=== PATIENT | male | born 1950 | race Caucasian/White ===

== ENCOUNTER 2019-06-06 12:34 | Outpatient (CLI) | payer MEDICARE, OTHER, SELFPAY ==
--- NOTE | 2019-06-06 13:07 | ECHO_ITS ---
Patient Info Name: Tommy Shah Age: 68 years : 1950 Gender: Male Ht: 73 in Wt: 225 lbs BSA: 2.31 m2 HR: 82 bpm BP: 167 / 82 mmHg Technical Quality: Good Exam Date: 06/06/2019 1:18 PM Exam Location: [facility] Patient Status: Outpatient Admit Date: 06/06/2019 Staff Ordering Physician: Michael Soni DO Insurance Auditor: José Luis Bennett RDCS, RT Attending Provider: Michael Soni DO Referring Physician: Zachariah MORA; Exam Type: CA echo doppler color flow Study Info Indications I35.0 - Nonrheumatic aortic (valve) stenosis Complete two-dimensional, color flow and Doppler transthoracic echocardiogram is performed. Summary 1. Left ventricular chamber dimension is normal. 2. Left ventricular systolic function is normal, estimated at 60-65%. 3. There is mildly increased left ventricular wall thickness. 4. The left ventricular diastolic function is abnormal. 5. E/e' 10 is mildly elevated. 6. Global longitudinal strain is normal at -19.3%. 7. Left atrial chamber dimension is mildly enlarged. 8. There is moderate aortic valve sclerosis. 9. There is moderate aortic valve stenosis with a peak velocity of 343 cm/s, mean gradient of 25 mmHg, and aortic valve area of 1.4 cm2. 10. There is mild aortic valve regurgitation. 11. There is trace mitral valve regurgitation. 12. No pulmonary hypertension, estimated pulmonary arterial systolic pressure is 39 mmHg. 13. Dilated inferior vena cava with >50% collapse upon inspiration consistent with elevated right atrial pressure, 10 mmHg. Left Ventricle E/e' 10 is mildly elevated. Global longitudinal strain is normal at -19.3%. Left ventricular chamber dimension is normal. Left ventricular systolic function is normal, estimated at 60-65%. There is mildly increased left ventricular wall thickness. The left ventricular diastolic function is abnormal. Right Ventricle Right ventricular chamber dimension is normal. Right ventricular systolic function is normal. Left Atria Left atrial chamber dimension is mildly enlarged. Right Atria Right atrial chamber dimension is normal. Aortic Valve The aortic valve is trileaflet. There is moderate aortic valve sclerosis. There is moderate aortic valve stenosis with a peak velocity of 343 cm/s, mean gradient of 25 mmHg, and aortic valve area of 1.4 cm2. There is mild aortic valve regurgitation. Pulmonic Valve There is no pulmonic regurgitation. Mitral Valve There is no mitral valve stenosis. There is trace mitral valve regurgitation. Tricuspid Valve There is no tricuspid valve regurgitation. No pulmonary hypertension, estimated pulmonary arterial systolic pressure is 39 mmHg. Pericardium/Pleural There is no pericardial effusion. Inferior Vena Cava Dilated inferior vena cava with >50% collapse upon inspiration consistent with elevated right atrial pressure, 10 mmHg. Aorta The aortic root size at the sinus of Valsalva is normal. Left Ventricular Outflow Tract Name Value Normal LVOT 2D LVOT Diameter 2.0 cm LVOT Doppler LVOT Peak Gradient 7 mmHg LVOT Mean Gradient
== END 2019-06-06 12:35 | disposition home or self-care (01) ==
PROVIDERS: PCP Emergency Medicine; Visit Provider Internal Medicine Cardiovascular Disease
DX: I34.0 Nonrheumatic mitral (valve) insufficiency (principal); I35.1 Nonrheumatic aortic (valve) insufficiency
CPT/HCPCS: 93306

== ENCOUNTER 2021-06-08 09:32 | Outpatient (CLI) | payer MEDICARE, OTHER, SELFPAY ==
--- NOTE | 2021-06-08 10:05 | ECHO_ITS ---
Patient Info Name: Tommy Shah Age: 70 years : 1950 Gender: Male Ht: 73 in Wt: 225 lbs BSA: 2.31 m2 HR: 86 bpm BP: 124 / 70 mmHg Technical Quality: Good Exam Date: 06/08/2021 10:24 AM Exam Location: [facility] Patient Status: Outpatient Admit Date: 06/08/2021 Staff Ordering Physician: Michael Soni DO Machine Pie Maker: José Luis Bennett RDCS, RT Attending Provider: Michael Soni DO Referring Physician: Zachariah MORA; Exam Type: CA echo doppler color flow Study Info Indications I35.0 - Nonrheumatic aortic (valve) stenosis Complete two-dimensional, color flow and Doppler transthoracic echocardiogram is performed. Strain analysis performed. Summary 1. Complete two-dimensional, color flow and Doppler transthoracic echocardiogram is performed. 2. Left ventricular chamber dimension is normal. 3. Left ventricular systolic function is normal, estimated at 60-65%. 4. There is mildly increased left ventricular wall thickness. 5. The left ventricular diastolic function is grade I diastolic dysfunction. 6. E/e' 8 is minimally elevated. 7. Global longitudinal strain is abnormal at -15.9%. 8. There is moderate aortic valve sclerosis. 9. There is moderate to severe aortic valve stenosis with a peak velocity of 420 cm/s, mean gradient of 42 mmHg, and aortic valve area of 1.0 cm2. 10. The mitral valve has mildly calcified annulus. 11. No pulmonary hypertension, estimated pulmonary arterial systolic pressure is 39 mmHg. Left Ventricle Global longitudinal strain is abnormal at -15.9%. E/e' 8 is minimally elevated. Left ventricular chamber dimension is normal. Left ventricular systolic function is normal, estimated at 60-65%. There is mildly increased left ventricular wall thickness. The left ventricular diastolic function is grade I diastolic dysfunction. Right Ventricle Right ventricular systolic function is normal and with normal TAPSE 3.0 cm. Right ventricular chamber dimension is normal. Left Atria Left atrial chamber dimension is normal. Right Atria Right atrial chamber dimension is normal. Aortic Valve The aortic valve is trileaflet. There is moderate aortic valve sclerosis. There is moderate to severe aortic valve stenosis with a peak velocity of 420 cm/s, mean gradient of 42 mmHg, and aortic valve area of 1.0 cm2. There is no aortic valve regurgitation. Pulmonic Valve There is no pulmonic regurgitation. Mitral Valve The mitral valve has mildly calcified annulus. There is no mitral valve stenosis. There is no mitral valve regurgitation. Tricuspid Valve There is no tricuspid valve regurgitation. No pulmonary hypertension, estimated pulmonary arterial systolic pressure is 39 mmHg. Pericardium/Pleural There is no pericardial effusion. Inferior Vena Cava Normal inferior vena cava with >50% collapse upon inspiration consistent with normal right atrial pressure, 5 mmHg. Aorta The aortic root size at the sinus of Valsalva is normal. Left Ventricular Outflow Tract Name Value Normal LVOT 2D LVOT Diameter 2.0 cm LVOT Doppler LVOT Peak Gradient 5 mmHg
== END 2021-06-08 09:33 | disposition home or self-care (01) ==
PROVIDERS: PCP Emergency Medicine; Visit Provider Internal Medicine Cardiovascular Disease
DX: I35.0 Nonrheumatic aortic (valve) stenosis (principal); I35.1 Nonrheumatic aortic (valve) insufficiency
CPT/HCPCS: 93306

== ENCOUNTER 2021-08-09 09:45 | Emergency (ER) | payer MEDICARE, OTHER, SELFPAY ==
--- NOTE | ~2021-08-09 | CT_ITS ---
EXAMINATION: CT brain wo con EXAM DATE: 08/09/2021 10:45 INDICATION: Dizziness, hyponatremia. TECHNIQUE: Spiral CT of the head was performed without contrast. Axial, coronal and sagittal images were reviewed. The dose-length product (DLP) for this examination was 605.33 mGy-cm. The exposure w as tailored according to patient size, and iterative reconstruction (ASIR) was used as additional dos e reduction technique. There is no prior study for comparison. FINDINGS: There is no acute intraparenchymal hemorrhage. No evidence of intraparenchymal brain mass lesion. No evidence of acute infarction. Please note that initial head CT has limited sensitivity f or small or acute infarctions. There is mild periventricular and subcortical hypodensity, nonspecific but probably related to small vessel ischemic disease. There is mild prominence of the sulci and v entricles related to cerebral atrophy. There is intracranial carotid arteriosclerosis. There are n o extra-axial collections. There is no mass effect or midline shift. Patient has had bilateral ocul ar lens surgery. Soft tissue is unremarkable. Mild to moderate right maxillary, mild left maxillary and bilateral ethmoid mucoperiosteal thickening. IMPRESSION: 1. No acute intracranial findings. 2. Chronic age related findings. Reviewed, dictated and finalized at location B.
[2021-08-09 09:49] VITALS: BP 139/53; PULSE 98; RESP 16; TEMP 36.2; O2SAT 100
[2021-08-09 10:02] VITALS: BP 128/69; PULSE 88; RESP 20; O2SAT 100
--- NOTE | 2021-08-09 10:27 | ECG_ITS ---
Measurements Intervals [place] Rate: 90 P: 75 W[place]: 165 QRS: 40 QRSD: 106 T: 41 QT: 356 QTc: 437 Interpretive Statements SINUS RHYTHM WITH OCCASIONAL ECTOPIC PREMATURE COMPLEXES Electronically Signed On 08-09-2021 12:10:10 CDT by Willie Feldman M.D.
[2021-08-09 10:31] LABS: Basophils Percent Auto 0.4 % (0.2-1.2); Eosinophils Absolute Auto 0.1 K/mm3 (0-0.3); Eosinophils Percent Auto 1.2 % (0-4.4); Hematocrit 33.4 % (42.0-52.0); Hemoglobin 12.3 g/dL (14.0-18.0); Immature Granulocyte Absolute 0.02 K/mm3 (0.00-0.031); Immature Granulocyte Percent A 0.4 % (0-0.5); Lymphocytes Absolute Auto 1.21 K/mm3 (0.9-3.2); Lymphocytes Percent Auto 21.4 % (18.3-44.2); Mean Corpuscular HGB Conc 36.8 g/dl (32-36); Mean Corpuscular Hemoglobin 35.8 pg (26-34); Mean Corpuscular Volume 97.1 fl (80-100); Mean Platelet Volume 9.1 fl (7.4-10.4); Monocytes Absolute Auto 0.9 K/mm3 (0.1-0.6); Monocytes Percent Auto 15.5 % (2.6-8.5); Neutrophils Absolute Auto 3.5 K/mm3 (1.3-6.7); Neutrophils Percent Auto 61.1 % (45.5-73.1); Platelet Count Result 219 k/mm3 (150-375); Red Blood Count 3.44 M/mm3 (4.6-6.20); Red Cell Distribution Width 11.1 % (11.5-14.5); White Blood Count 5.7 K/mm3 (4.5-10.0)
[2021-08-09 10:49] LABS: Alanine Aminotransferase 20 U/L (4-50); Albumin Level 5.1 g/dL (3.5-5.1); Alkaline Phosphatase 45 U/L (38-126); Anion Gap 7 mmol/L (8-16); Aspartate Amino Transferase 40 U/L (17-59); Bilirubin,Total 1.2 mg/dL (0.2-1.3); Blood Urea Nitrogen 12 mg/dL (9-20); Calcium 9.3 mg/dL (8.4-10.2); Carbon Dioxide 31 mmol/L (22-30); Chloride 82 mmol/L (98-107); Estimated CRCL calculation 75 ml/min; Estimated Glomerular Filt Rate > 60; Glucose 127 mg/dL (65-110); Potassium 3.5 mmol/L (3.4-5.0); Sodium 120 mmol/L (137-145)
[2021-08-09 11:00] VITALS: BP 124/64; PULSE 80
[2021-08-09 11:02] VITALS: BP 126/71; PULSE 88
--- NOTE | 2021-08-09 11:02 | ED.RECABL ---
HPI - Recheck/Abnormal Lab/Rx General Chief Complaint: Recheck/Abnormal Lab/Rx <Trinity Sánchez PA-C - Last Filed: 08/09/21 12:52> Stated Complaint: low sodium per PCP <Trinity Sánchez PA-C - Last Filed: 08/09/21 12:52> Time Seen by Provider: 08/09/21 10:27 <JN Castañeda Last Filed: 08/09/21 12:52> Source: patient <JN Castañeda Last Filed: 08/09/21 12:52> Mode of arrival: ambulatory <JN Castañeda Last Filed: 08/09/21 12:52> Limitations: no limitations <JN Castañeda Last Filed: 08/09/21 12:52> History of Present Illness HPI narrative: This is a 71-year-old male that presents to the emergency department for abnormal labs. Reports he was called by his primary provider and told that his sodium was low and to present to the ED. He does report he has been having some intermittent lightheadedness over the last week. Has no complaints currently. Does report he was recently started on hydrochlorothiazide a couple of months ago. Denies chest pain, shortness of breath, vomiting or diarrhea. <Trinity Sánchez PA-C - Last Filed: 08/09/21 12:52> Related Data Home Medications: Home Medications Medication Instructions Recorded Confirmed aspirin 81 mg tablet,delayed 81 mg PO DAILY 05/22/19 05/24/21 release <JN Castañeda Last Filed: 08/09/21 12:52> Allergies/Adverse Reactions: Allergies Allergy/AdvReac Type Severity Reaction Status Date / Time No Known Allergies Allergy Verified 05/24/21 10:00 <JN Castañeda Last Filed: 08/09/21 12:52> Review of Systems Review of Systems: CONSTITUTIONAL: Denies fever CARDIOVASCULAR: Denies chest pain, or edema. RESPIRATORY: Denies dyspnea. GASTROINTESTINAL: Denies abdominal pain, nausea, vomiting, or diarrhea. NEUROLOGIC: Denies headache, numbness, or weakness. <Trinity Sánchez PA-C - Last Filed: 08/09/21 12:52> All systems reviewed & are unremarkable except as noted in HPI and below <Trinity Sánchez PA-C - Last Filed: 08/09/21 12:52> [facility] Past Medical History Medical History: Medical History (Updated 08/09/21 @ 12:35 by Trinity Sánchez PA-C) Aortic stenosis, mild Aortic valve, bicuspid PRESSLEY (dyspnea on exertion) Essential hypertension Other and unspecified hyperlipidemia <Trinity Sánchez PA-C - Last Filed: 08/09/21 12:52> Family History Family History: Family History (Reviewed 05/24/21 @ 10:00 by Stephany Combs, [facility]) Sibling Family history of cardiovascular disease <Trinity Sánchez PA-C - Last Filed: 08/09/21 12:52> Social History Social History: Social History (Reviewed 05/24/21 @ 10:00 by Stephany Combs [facility]) Smoking status: Never smoker Smoking end date: 04/30/86 Alcohol intake: current <Trinity Sánchez PA-C - Last Filed: 08/09/21 12:52> Exam Narrative: GENERAL: Well-appearing, well-nourished, and in no acute distress. HEAD: Normocephalic, atraumatic. EYES: PERRLA and EOMI. ENT: Nares clear, no rhinorrhea or epistaxis. Mucous membranes moist. Oropharynx without tonsillar hypertrophy exudate or other lesions. Bilateral TMs pearly stevens non-bulging NECK: Supple. No adenopathy or masses. CHEST: Clear to auscultation. No respiratory distress. No wheezes rales or rhonchi HEART: Regular rate and rhythm. No murmur heard. Normal peripheral pulses. ABDOMEN: Soft, nontender, nondistended, normal active bowel sounds. EXTREMITIES: Normal range of motion. No edema. Strength equal in bilateral upper and lower extremities (5/5) SKIN: Warm, dry, no rash. NEURO: No focal deficits. Alert and oriented x3. Cranial nerves II through XII grossly intact. Normal [id number] PSYCH: Normal mood and affect <Trinity Sánchez PA-C - Last Filed: 08/09/21 12:52> Course Consultations Consultation #1: I did speak with his primary doctor who will follow up. Would like patient started on salt tabs. He is to stop his hydr
[2021-08-09 11:04] VITALS: BP 119/61; PULSE 78
[2021-08-09] MEDS: SODIUM CHLORIDE 0.9% IV 1,000 ML 500 ML IV CONT (11:09)
--- NOTE | 2021-08-09 12:58 | PC.NURSE ---
Patient signed AMA form and recieved discharge instructions left before signing.
--- NOTE | 2021-08-15 11:02 | PC.NURSE ---
LATE ENTRY This note is being entered to document information to the patient's record. []08/09/21 pt recieved 1000 , stopped by Fartun Messer.
== END 2021-08-09 12:58 | disposition left against medical advice (07) ==
PROVIDERS: Physician Assistant; Emergency Provider Emergency Medicine; PCP Emergency Medicine
DX: E87.1 Hypo-osmolality and hyponatremia (principal); I35.0 Nonrheumatic aortic (valve) stenosis; I10 Essential (primary) hypertension; E78.5 Hyperlipidemia, unspecified; Z87.891 Personal history of nicotine dependence; R94.31 Abnormal electrocardiogram [ECG] [EKG]
CPT/HCPCS: 36415; 70450; 80053; 85025; 93005; 96360; 96361; 99284; J7030

== ENCOUNTER 2022-06-07 09:23 | Outpatient (CLI) | payer MEDICARE, OTHER, SELFPAY ==
--- NOTE | 2022-06-07 09:40 | ECHO_ITS ---
Patient Info Name: Tommy Shah Age: 71 years : 1950 Gender: Male Ht: 73 in Wt: 211 lbs BSA: 2.24 m2 HR: 96 bpm BP: 148 / 77 mmHg Technical Quality: Fair Exam Date: 06/07/2022 9:44 AM Exam Location: [facility] Patient Status: Outpatient Admit Date: 06/07/2022 Staff Ordering Physician: Michael Soni DO Binder Sorter: José Luis Bennett RDCS, RT Attending Provider: Michael Soni DO Referring Physician: Zachariah MORA; Exam Type: CA echo doppler color flow Study Info Indications I35.0 - Nonrheumatic aortic (valve) stenosis Complete two-dimensional, color flow and Doppler transthoracic echocardiogram is performed. Strain analysis performed. Summary 1. Complete two-dimensional, color flow and Doppler transthoracic echocardiogram is performed. 2. Left ventricular chamber dimension is normal. 3. Left ventricular systolic function is normal, estimated at 60-65%. 4. There is mild concentric increased left ventricular wall thickness. 5. The left ventricular diastolic function is abnormal. 6. E/e' 11 is mildly elevated. 7. Global longitudinal strain is abnormal at -13.2%. 8. The aortic valve is not well visualized. Cannot determine number of aortic valve leaflets. 9. There is severe aortic valve stenosis based on a peak velocity of 437 cm/s, mean gradient of 42 mmHg, and aortic valve area of 0.8 cm2. 10. There is severe aortic valve sclerosis. 11. The mitral valve has moderately calcified annulus. 12. Mild pulmonary hypertension, estimated pulmonary arterial systolic pressure is 49 mmHg. 13. Dilated inferior vena cava with >50% collapse upon inspiration consistent with elevated right atrial pressure, 10 mmHg. Left Ventricle E/e' 11 is mildly elevated. Global longitudinal strain is abnormal at -13.2%. Left ventricular chamber dimension is normal. Left ventricular systolic function is normal, estimated at 60-65%. There is mild concentric increased left ventricular wall thickness. The left ventricular diastolic function is abnormal. Right Ventricle Right ventricular systolic function is normal and with normal TAPSE 3.0 cm. Right ventricular chamber dimension is normal. Left Atria Left atrial chamber dimension is normal. Right Atria Right atrial chamber dimension is normal. Aortic Valve The aortic valve is not well visualized. Cannot determine number of aortic valve leaflets. There is severe aortic valve stenosis based on a peak velocity of 437 cm/s, mean gradient of 42 mmHg, and aortic valve area of 0.8 cm2. There is severe aortic valve sclerosis. There is no aortic valve regurgitation. Pulmonic Valve There is no pulmonic regurgitation. Mitral Valve The mitral valve has moderately calcified annulus. There is no mitral valve stenosis. There is no mitral valve regurgitation. Tricuspid Valve There is no tricuspid valve regurgitation. Mild pulmonary hypertension, estimated pulmonary arterial systolic pressure is 49 mmHg. Pericardium/Pleural There is no pericardial effusion. Inferior Vena Cava Dilated inferior vena cava with >50% collapse upon inspiration consistent with elevated right atrial pressure, 10 mmHg. Aorta The aortic root size at the sinus of Valsalva is normal. Left Ventricular Outflow Tract Name Value Normal LVOT 2D
== END 2022-06-07 09:24 | disposition home or self-care (01) ==
LOC: ANHCARD 09:24
PROVIDERS: PCP Emergency Medicine; Visit Provider Internal Medicine Cardiovascular Disease
DX: I08.3 Combined rheumatic disorders of mitral, aortic and tricuspid valves (principal)
CPT/HCPCS: 93306

== ENCOUNTER 2023-05-11 09:53 | Outpatient (CLI) | payer MEDICARE, OTHER, SELFPAY ==
--- NOTE | 2023-05-11 10:17 | ECHO_ITS ---
Patient Info Name: Tommy Shah Age: 72 years : 1950 Gender: Male Ht: 73 in Wt: 215 lbs BSA: 2.26 m2 HR: 101 bpm BP: 136 / 77 mmHg Technical Quality: Fair Exam Date: 05/11/2023 10:26 AM Exam Location: Echo Lab Patient Status: Outpatient Admit Date: 05/11/2023 Staff Ordering Physician: Michael Soni DO Attending Provider: Michael Soni DO Referring Physician: Zachariah MORA; Exam Type: CA echo doppler color flow Study Info Indications - NON RHEUMATIC AORTIC VALVE STENOSIS Complete two-dimensional, color flow and Doppler transthoracic echocardiogram is performed. Summary 1. Complete two-dimensional, color flow and Doppler transthoracic echocardiogram is performed. 2. Left ventricular chamber dimension is normal. 3. Left ventricular systolic function is hyperdynamic, estimated at >70%. 4. There is mild concentric increased left ventricular wall thickness. 5. The left ventricular diastolic function is grade I diastolic dysfunction. 6. E/e' 14 is mildly elevated. 7. Left atrial chamber dimension is mildly enlarged. 8. There is severe aortic valve sclerosis. 9. There is severe aortic valve stenosis with a peak velocity of 514 cm/s, mean gradient of 67 mmHg, and aortic valve area of 0.9 cm2. 10. The mitral valve has moderately calcified annulus. 11. There is mild mitral valve regurgitation. 12. There is mild tricuspid valve regurgitation. 13. Moderate pulmonary hypertension, estimated pulmonary arterial systolic pressure is 50 mmHg. Left Ventricle E/e' 14 is mildly elevated. Left ventricular chamber dimension is normal. Left ventricular systolic function is hyperdynamic, estimated at >70%. There is mild concentric increased left ventricular wall thickness. The left ventricular diastolic function is grade I diastolic dysfunction. Right Ventricle Right ventricular chamber dimension is normal. Right ventricular systolic function is normal. Left Atria Left atrial chamber dimension is mildly enlarged. Right Atria Right atrial chamber dimension is normal. Aortic Valve The aortic valve is probable trileaflet. There is severe aortic valve sclerosis. There is severe aortic valve stenosis with a peak velocity of 514 cm/s, mean gradient of 67 mmHg, and aortic valve area of 0.9 cm2. There is no aortic valve regurgitation. Pulmonic Valve There is no pulmonic regurgitation. Mitral Valve The mitral valve has moderately calcified annulus. There is no mitral valve stenosis. There is mild mitral valve regurgitation. Tricuspid Valve There is mild tricuspid valve regurgitation. Moderate pulmonary hypertension, estimated pulmonary arterial systolic pressure is 50 mmHg. Pericardium/Pleural There is no pericardial effusion. Inferior Vena Cava Normal inferior vena cava with >50% collapse upon inspiration consistent with normal right atrial pressure, 5 mmHg. Aorta The aortic root size at the sinus of Valsalva is normal. Left Ventricular Outflow Tract Name Value Normal LVOT 2D LVOT Diameter 2.1 cm LVOT Doppler LVOT Peak Gradient 6 mmHg LVOT Mean Gradient 4 mmHg LVOT VTI 26 cm LVOT VTI/AV VTI Ratio
== END 2023-05-11 09:54 | disposition home or self-care (01) ==
LOC: ANHCARD 09:55
PROVIDERS: PCP Emergency Medicine; Visit Provider Internal Medicine Cardiovascular Disease
DX: I08.3 Combined rheumatic disorders of mitral, aortic and tricuspid valves (principal)
CPT/HCPCS: 93306

== ENCOUNTER 2024-05-20 07:34 | Outpatient (CLI) | payer MEDICARE, OTHER, SELFPAY ==
--- NOTE | 2024-05-20 07:48 | ECHO_ITS ---
Patient Info Name: Tommy Shah Age: 73 years : 1950 Gender: Male Ht: 73 in Wt: 215 lbs BSA: 2.26 m2 HR: 85 bpm BP: 135 / 64 mmHg Heart Rhythm: Sinus Rhythm Technical Quality: Fair Exam Date: 05/20/2024 7:54 AM Exam Location: Echo Lab Patient Status: Outpatient Admit Date: 05/20/2024 Staff Ordering Physician: Michael Soni DO Cook Morning: Aylin King RDCS Attending Provider: Michael Soni DO Referring Physician: Zachariah MORA; Exam Type: CA echo doppler color flow Study Info Indications I35.0 - Nonrheumatic aortic (valve) stenosis Complete two-dimensional, color flow and Doppler transthoracic echocardiogram is performed. Summary 1. Complete two-dimensional, color flow and Doppler transthoracic echocardiogram is performed. 2. Left ventricular chamber dimension is normal. 3. Left ventricular systolic function is normal, estimated at 65-70%. 4. There is mild concentric increased left ventricular wall thickness. 5. The left ventricular diastolic function is grade III diastolic dysfunction. 6. E/e' 19 is elevated. 7. Left atrial chamber dimension is mildly enlarged. 8. There is severe aortic valve sclerosis. 9. There is severe aortic valve stenosis with a peak velocity of 525 cm/s, mean gradient of 64 mmHg, and aortic valve area of 0.7 cm2. 10. The mitral valve has moderately calcified annulus. 11. There is trace tricuspid valve regurgitation. 12. Mild pulmonary hypertension, estimated pulmonary arterial systolic pressure is 44 mmHg. Left Ventricle E/e' 19 is elevated. Left ventricular chamber dimension is normal. Left ventricular systolic function is normal, estimated at 65-70%. There is mild concentric increased left ventricular wall thickness. The left ventricular diastolic function is grade III diastolic dysfunction. Right Ventricle Right ventricular systolic function is normal and with normal TAPSE 2.8 cm. Right ventricular chamber dimension is normal. Left Atria Left atrial chamber dimension is mildly enlarged. Right Atria Right atrial chamber dimension is normal. Aortic Valve The aortic valve is trileaflet. There is severe aortic valve sclerosis. There is severe aortic valve stenosis with a peak velocity of 525 cm/s, mean gradient of 64 mmHg, and aortic valve area of 0.7 cm2. There is no aortic valve regurgitation. Pulmonic Valve There is no pulmonic regurgitation. Mitral Valve The mitral valve has moderately calcified annulus. There is no mitral valve stenosis. There is no mitral valve regurgitation. Tricuspid Valve There is trace tricuspid valve regurgitation. Mild pulmonary hypertension, estimated pulmonary arterial systolic pressure is 44 mmHg. Pericardium/Pleural There is no pericardial effusion. Inferior Vena Cava Normal inferior vena cava with >50% collapse upon inspiration consistent with normal right atrial pressure, 5 mmHg. Aorta The aortic root size at the sinus of Valsalva is normal. Left Ventricular Outflow Tract Name Value Normal LVOT 2D LVOT Diameter 2.0 cm LVOT Doppler LVOT Peak Gradient 5 mmHg LVOT Mean Gradient 3 mmHg LVOT VTI 23 cm LVOT VTI/AV VTI Ratio 0.2 LVOT Stroke Volume 70 ml LVOT CO 6.7 l/min LVOT CI 3.0 l/min/m2 Pulmonic Valve Name Value Normal RVOT Doppler RVOT Peak Gradient 5 mmHg PV Doppler PV Peak Gradient 5 mmHg Mitral Valve Name Value Normal MV Doppler MV Peak Gradient 9 mmHg MV Mean Gradient 4 mmHg MV Decel White 836 cm/s2 MV PHT 48 ms MV Area (PHT) 4.6 cm2 4.0-5.0 MV Area (Cont Eq VTI) 2.7 cm2 MV Diastolic Function MV E Peak Velocity 139 cm/s MV A Peak Velocity 68 cm/s MV E/A 2.0 MV Decel Time 166 ms MV Annular TDI MV E/e' (Septal) 21.8 <=8.0 MV E/e' (Lateral) 18.0 <=8.0 MV E/e' (Average) 19.9 Tricuspid Valve Name Value Normal TV Regurgitation Doppler TR Peak Velocity 313 cm/s TR Peak Gradient 32 mmHg Estimated PAP/RSVP RA Pressure 5 mmHg <=5 PA Systolic Pressure 44 mmHg <36 RV Systolic Pressure 44 mmHg <36 Aorta Name Value Normal Ascending Aorta Ao Root Diameter (MM) 2.8 cm Ao Root Diam Index (MM) 1.3 cm/m2 Aortic Valve Name Value Normal AV Doppler AV Peak Velocity 525 cm/s AV Peak Gradient 110 mmHg AV Mean Gradient 64 mmHg AV VTI 103 cm AV Area (Cont Eq VTI) 0.7 cm2 >=3.0 AV Area (Cont Eq Arslan) 0.6 cm2 AV Regurgitation 2D LVOT Area 3.0 cm2 Ventricles Name Value Normal LV Dimensions 2D/MM IVS Diastolic Thickness (2D) 1.2 cm 0.6-1.0 LVID Diastole (2D) 5.0 cm 4.2-5.8 LVIW Diastolic Thickness (2D) 1.0 cm 0.6-1.0 LVID Systole (2D) 2.8 cm 2.5-4.0 LVOT Diameter 2.0 cm LV Mass (2D Cubed) 205.23 g 88.00-224.00 LV Mass Index (2D Cubed) 91 g/m2 49-115 Relative Wall Thickness (2D) 0.39 LV Fractional Shortening/Ejection Fraction 2D/MM LV Fractional Shortening (2D) 45 % 25-43 LV EF (2D Teicholz) 76 % 52-72 LV Diastolic Volume (4C MOD) 91 ml LV EF (4C MOD) 71 % LV Diastolic Volume (2C MOD) 66 ml LV EF (2C MOD) 63 % LV Diastolic Volume (BP MOD) 78 ml 62-150 LV Diastolic Volume Index (BP MOD) 35 ml/m2 34-74 LV Systolic Volume (BP MOD) 26 ml 21-61 LV Systolic Volume Index (BP MOD) 11 ml/m2 11-31 LV EF (BP MOD) 67 % 52-72 LV Diastolic Length (4C) 8.6 cm LV Systolic Length (4C) 6.4 cm LV Stroke Volume (4C MOD) 65 ml Atria Name Value Normal LA Dimensions LA Dimension (MM) 5.0 cm 3.0-4.1 LA Volume (4C A-L) 88 ml LA Volume (BP A-L) 86 ml RA Dimensions RA Area (4C) 17.6 cm2 <=18.0 Report Signatures
--- OUTSIDE RECORDS SUMMARY | 2024-05-22 15:35 | XMS_ITS | Continuity of Care Document ---
Author Organization [facility] [place] [address] [place] [address] Phone Care Team Providers Care Logistics Lead Name Role Phone [place] SOTO FACS, Rip Unavailable Unavailab le Allergies, Adverse Reactions, Alerts Substance Reaction Status Criticality No Known allergies Medications Medication Instructions Dosage Effective Dates (start - stop) Status Comments valsartan 320 mg-hydrochlorothia zide 25 mg tablet - Active AMLODIPINE BESILATE (unknown strength) Not Available - Active Aspirin Low Dose 81 mg tablet,delayed release - Active Polytrim 0.1 %-10,000 unit/mL Eye Drops Instill one drop into Operated Eye QID as directed - No Longer Active prednisolone acetate 1 % Eye Drops, Susp Instill 1 drop into Operated Eye QID as directed - No Longer Active Procedures Procedure Date Post-op Follow-up Visit No Charge Refraction Post-op Follow-up Visit Remove Cataract, Insert Lens Presbyopia Correcting IOL Eye Exam, New Patient No Charge Refraction IOLMaster No Charge Optomap Fundus Photos - 013 Post-op Follow-up Visit Post-op Follow-up Visit Post-op Follow-up Visit Remove Cataract, Insert Lens Presbyopia Correcting IOL Eye Exam, New Patient IOLMaster Advance Directives Directive Yes / No Effective Date File Name Resuscitation Not Answered N/A N/A Life Support Not Answered N/A N/A Intubation Not Answered N/A N/A Antibiotics Not Answered N/A N/A IV Fluid Support Not Answered N/A N/A Tube Feed Not Answered N/A N/A Other Directive N/A N/A WARNING:The information contained in this section is historical and is provided for information only and does not constitute a legal document or any assurance that the information is still accurate. Please verify the information with the phelps of the legal document before using it for clinical purposes. Encounters Encounter Description Practice Location Reason(s) For Visit Diagnoses Date Provider Providers [facility]ied on [facility], [address], [place], [place], [address], tel:[phone] SEC Bell N Lindbergh 2 week post op (chief complaint) FOLLOW-UP SURGERY NOS Mar-0 2- 3 [place] Erwin. [facility] [employer], [address], [place], [place], [address], . tel:[phone] [place] [facility], [address], [place], [place], [address], tel:[phone] SEC Esther N Lindbergh 1 day PO OS (chief complaint) FOLLOW-UP SURGERY NOS Feb-2 2- 3 [place] Erwin. [address] [employer], [address], [place], [place], [address], [place]. tel:[phone] [place] [facility], [facility] [employer] [address], [place], [place], [address], [place] tel:[phone] Edward [facility] No Information Feb-2 - 3 [place] Erwin. [address] [employer], [address], [place], [place], [address], [place]. tel:[phone] Referring Provider: Rip Velasco, [facility] [employer] [address], [place], [address] . tel:[phone] [facility], [address], [place], [place], [address], [place] tel:[phone] SEC Bell N Lindbergh No Information Nov- 3 [place] Rip. [address] [employer], [address], [place], [place], [address], [place]. tel:[phone] [facility], [address] [place] [address] [address], [place], [place], [address], [place] tel:[phone] SEC Bell N Lindbergh blurry vision (chief complaint) No Information Oct-2 [address] [place] Rip[address] [place], [place] [address], [address], [place], [place], [address], [place]. tel:[phone] Referring Provider: Saúl Garrison, [address] [facility] [address], [place], [place], [facility]. tel:[phone] [facility], [address] [place] [address] [address], [place], [place], [address], [place] tel:[phone] SEC Bell N [place] No Information Jan- 3 [place] Rip. [address] [place] [address] [employer] [facility], [address], [place], [place], [address], [place]. tel:[phone] [facility], [address] [place] [address] [address], [place], [place], [address], [place] tel:[phone] SEC [facility] No Information Oct-2 3-200 9 Krishnasamy Shawn. [address], [facility], [place]. tel:[phone] [facility], [address] [place] [address] [address], [place], [place], [address], [place] tel:[phone] SEC [facility] No Information Oct-0 2-200 9 Krishnasamy Shawn. [address] [facility] [address], [place], [facility], [place]. tel:[phone] [facility], [address] [facility] [address], [place], [place], [address], tel:[phone] [facility] No Information Sep-2 5-200 9 Krishnasamy Shawn. [address], [facility], . tel:[phone] [facility], [address], [place], [place], [address], tel:[phone] [facility] No Information Sep-2 4-200 9 Krishnasamy Shawn. [address], [facility], . tel:[phone] Referring Provider: Saúl Lopez OD F, [address] [facility] [address], [place], [facility]. tel:[phone] [facility], [address] [facility], [place], [place], [address], tel:[phone] [facility] No Information Sep-0 2-200 9 Krishnasamy Shawn. [facility] [address], [facility], . tel:[phone] Referring Provider: Saúl Lopez OD F, [address] [facility] [address], [place], [place], [facility]. tel:[phone] Family History Family Member Type Diagnosis Age At Onset No Information Payers Payer name Insurance type Covered green party ID Authoriza tion(s) No Information Social History Type Description Quantity Date Captured Comments Alcohol Use Details 3 drinks daily Caffeine Use Details 2 cups per day Tobacco Use Status No Information Smoking Status Former smoker Sex Male Chief Complaint And Reason For Visit From encounter dated '03/31/2013 14:30'. 2 week post op (chief complaint) Reason For Referral Reason For Referral No Information History Of Present Illness Encounter Date Complaint History Of Prese nt Illness No Information Functional Status Date Functional Assessmen t No Information Instructions Date Instruction Additional Magalir kelsey FOLLOW-UP SURGERY NO S OS - Good post op course, continue to taper meds Educational materials provided:Medication Instruction. Related to FOLLOW-UP SURGERY NOS - 6 months iol check Related to FOLLOW-UP SURGERY NOS FOLLOW-UP SURGERY NO S OS Vision: vision affected. - Post op med instructions reviewed with pt, and post op instructions discussed. Pt understands shield use, return to clinic for post op exam as scheduled Educational materials provided:Post op Instruction. Related to FOLLOW-UP SURGERY NOS - po as scheduled Related to FOL LOW-UP SURGERY NOS SENILE NUCLEAR CATAR ACT OS Vision: vision affected.RESTOR IOL OD - Cataracts account for the patient's complaints. Discussed all risks, benefits, procedures and recovery. Patient understands changing glasses will not improve vision. Patient desires to have surgery, recommend phacoemulsification with intraocular lens. PT will need IOL master and orbscan today. Match IOL type- IOL card copied and put in chart. Educational materials provided:Cataract. Related to SENILE NUCLEAR CATARACT - sched CE OS MF IOL Related to SENILE NUCLEAR CATARACT Assessments Type Assessment Date No Information Patient Care Teams Name Effective Dates (start - stop) Status Members No Information
== END 2024-05-20 07:35 | disposition home or self-care (01) ==
LOC: ANHLAB 07:36
PROVIDERS: PCP Emergency Medicine; Visit Provider Internal Medicine Cardiovascular Disease
DX: I35.0 Nonrheumatic aortic (valve) stenosis (principal); I51.89 Other ill-defined heart diseases; I35.8 Other nonrheumatic aortic valve disorders; I34.81 Nonrheumatic mitral (valve) annulus calcification; I27.20 Pulmonary hypertension, unspecified
CPT/HCPCS: 93306

== ENCOUNTER 2024-06-21 03:37 | Emergency (ER) | payer MEDICARE, OTHER, SELFPAY ==
--- NOTE | ~2024-06-21 | XR_ITS ---
EXAMINATION: XR shoulder RT min 2V DATE: 06/21/2024 03:48 INDICATION: Right shoulder dislocation TECHNIQUE: AP and transscapular Y views of the right shoulder were obtained. COMPARISON: None FINDINGS: Anterior right glenohumeral dislocation with large Hill-Sachs fracture at the posterior humeral head. Somewhat atypically the Hill-Sachs fracture includes large displaced fragment comprising a large por tion of the posterior aspect of the greater tuberosity. No evident associated Bankart fracture. 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 Possible old healed lateral right second rib fracture. Visualized portions of the lungs are clear. IMPRESSION: Anterior right glenohumeral dislocation with large Hill-Sachs fracture which atypically includes a di splaced fragment involving a portion of the posterior greater tuberosity. Reviewed, dictated and finalized at location A. COORDINATOR IMPRESSION: Anterior right glenohumeral dislocation with large Hill-Sachs fracture which at ypically includes a displaced fragment involving a portion of the posterior gre ater tuberosity.
[2024-06-21 03:38] VITALS: BP 125/58; PULSE 85; RESP 18; TEMP 36.5; O2SAT 99
--- OUTSIDE RECORDS SUMMARY | 2024-06-21 03:39 | XMS_ITS | Continuity of Care Document ---
Author Organization [facility] [place] Address [address] [place] [address] Phone Care Team Providers Care Aviation Medicine Specialist Name Role Phone [place] SOTO FACS, Rip [...] Diagnoses Date Provider Providers Copied on [facility]counter [facility], [address], [place], [place], [address], tel:[phone] SEC Orlando N Lindbergh 2 week post op (chief complaint) FOLLOW-UP SURGERY NOS Mar-0 2- 3 [place] Erwin. [facility] [employer], [address], [place], [place], [address], . tel:[phone] [facility], [address] [employer] [address], [place], [place], [address], tel:[phone] SEC Orlando N Lindbergh 1 day PO OS (chief complaint) FOLLOW-UP SURGERY NOS Feb-2 2- 3 [place] Erwin. [address] [employer], [address], [place], [place], [address], [place]. tel:[phone] [facility], [facility] [employer] [address], [place], [place], [address], [place] tel:[phone] [facility] No Information Feb-2 - 3 [place] Erwin. [address] [employer], [address], [place], [place], [address], [place]. tel:[phone] Referring Provider: Rip Velasco, [facility] [address], [place], [address] . tel:[phone] [facility], [address] [address], [place], [place], [address], [place] tel:[phone] SEC Orlando N [place] No Information Nov- 3 [place] Rip. [address] [employer], [address], [place], [place], [address], [place]. tel:[phone] [facility], [address] [place] [address] [address], [place], [place], [address], [place] tel:[phone] SEC Esther N Lindbergh blurry vision (chief complaint) No Information Oct-2 3 [place] Rip. [address] [place], [place] [address]Rod[address] [employer], [address], [place], [place], [address], [place]. tel:[phone] Referring Provider: Saúl Garrison, [address] [facility], [place], [place], [facility]. tel:[phone] [facility], [address] [place] [address] [address], [place], [place], [address], [place] tel:[phone] SEC Orlando N [place]bergh No Information Jan- 3 [place] Rip. [address] [place] [address] [employer] [facility], [address], [place], [place], [address], [place]. tel:[phone] [facility], [address] [place] [address] [address], [place], [place], [address], [place] tel:[phone] SEC [facility] No Information Oct-2 3-200 9 Krishnasamy Shawn. [address], [facility], [place]. tel:[phone] [facility], [address] [place] [address] [address], [place], [place], [address], [place] tel:[phone] SEC [facility] No Information Oct-0 2-200 9 Krishnasamy Shawn. [address] [facility] [address], [place], [facility], [place]. tel:[phone] [facility], [address] [facility] [address], [place], [place], [address], tel:[phone] [facility] No Information Sep-2 5-200 9 Krishnasamy Shawn. [address], [facility], . tel:[phone] [facility], [address] [address], [place], [place], [address], tel:[phone] [facility] No Information Sep-2 4-200 9 Krishnasamy Shawn. [address], [facility], . tel:[phone] Referring Provider: Saúl Lopez OD F, [address] [facility] [address], [place], [place], [facility]. tel:[phone] [facility], [address] [facility] [address], [place], [place], [address], tel:[phone] [facility] No Information Sep-0 2-200 9 Krishnasamy Shawn. [facility] [address], [facility], . tel:[phone] Referring Provider: Saúl Lopez OD F, [address] [facility], [place], [place], [facility]. tel:[phone] Family History Family Member Type Diagnosis Age At Onset No Information Payers Payer name Insurance type Covered libertarian ID Authoriza tion(s) No Information Social History [...] t No Information Instructions Date Instruction Additional Infor kelsey - 6 months iol check Related to FOLLOW-UP SURGERY NOS FOLLOW-UP SURGERY NO S OS - Good post op course, continue to taper meds Educational materials provided:Medication Instruction. Related to FOLLOW-UP SURGERY NOS - po as scheduled Related to FOL LOW-UP SURGERY NOS FOLLOW-UP SURGERY NO S OS Vision: vision affected. - Post op med instructions reviewed with pt, and post op instructions discussed. Pt understands shield use, return to clinic for post op exam as scheduled Educational materials provided:Post op Instruction. Related to FOLLOW-UP SURGERY NOS - sched CE OS MF IOL Related to SENILE NUCLEAR CATARACT SENILE NUCLEAR CATAR ACT OS Vision: vision [...] materials provided:Cataract. Related to SENILE NUCLEAR CATARACT Assessments Type Assessment Date No Information Patient Care Teams Name Effective Dates (start - stop) Status Members No Information
[2024-06-21] MEDS: ONDANSETRON INJ 4 MG/2 ML VIAL IV PUSH (04:34)
[2024-06-21] MEDS: MORPHINE SULFATE (*CRX) 4 MG/ML INJ IV PUSH (04:35)
--- NOTE | 2024-06-21 05:01 | ED.GENADULT ---
HPI - General Adult General Chief complaint: Extremity Injury, Upper Stated complaint: glf - possible rt shoulder dislocation Time Seen by Provider: 06/21/24 04:18 History of Present Illness HPI narrative: Patient is a 73-year-old male who presents to the emergency department this status post a right shoulder injury. Patient states that he slipped on some ice and fell landing on his right shoulder. Patient states that once his shoulder hit the ground he scraped his right cheek on the ground. Denies loss of consciousness, denies any blood thinner use and denies any additional injuries. Patient admits that he was ambulatory after the fall. Has not been able to move his right upper extremity at the shoulder joint. Patient has full intact range of motion at the right wrist and elbow joints, bruise noted to right elbow region. Patient denies any numbness and tingling. No additional symptoms or concerns at this time. Related Data Home Medications ?Medication ?Instructions ?Recorded ?Confirmed ?Last Taken ?Type aspirin 81 mg tablet,delayed 81 mg PO DAILY 05/22/19 05/08/24 Unknown History release (Adult Low Dose Aspirin) Allergies Allergy/AdvReac Type Severity Reaction Status Date / Time No Known Allergies Allergy Verified 05/08/24 10:04 Review of Systems Review of Systems: All systems are reviewed and are negative unless stated otherwise in the HPI. [facility] Past Medical History Medical History Low back strain Vitamin D deficiency Umbilical hernia without obstruction and without gangrene Plantar fasciitis of right foot Overweight Other hyperlipidemia Other abnormal glucose Hyponatremia ETOHism Aortic stenosis, mild Aortic valve, bicuspid PRESSLEY (dyspnea on exertion) Essential hypertension Other and unspecified hyperlipidemia Family History Family History Sibling Family history of cardiovascular disease Social History Social History Smoking status: Never smoker Smoking end date: 04/30/86 Alcohol intake: current Current Housing: Decline to Answer Concerned About Future Housing: Decline to Answer Difficulty Paying Gas/Electric Bills: Decline to Answer Difficulty Paying for Meds: Decline to Answer Currently Unemployed: Decline to Answer Education: Decline to Answer Difficulty w/ Childcare or Family Care: Decline to Answer Exam Narrative: General: Alert, awake, afebrile, in no acute distress. HEENT: PERRL, no rhinorrhea, no post nasal drip, oropharynx clear, abrasion to right cheek. Neck: Trachea midline, no JVD, no lymphadenopathy. Cardiovascular: Regular rate and rhythm, no murmurs, rubs or gallops, no peripheral edema. Respiratory: Clear to auscultation bilaterally, no tachypnea, no wheezing, no rhonchi, no rubs, no respiratory distress. Abdomen: Soft, nontender, nondistended, no rebound, no guarding, no peritoneal signs. Musculoskeletal: Right upper extremity held in adduction at at the right shoulder joint, intact right radial and ulnar pulses, intact sensation and equal in the bilateral upper extremity, patient is neurovascularly intact, 5 intact full range of motion at the right wrist and elbow joint, ecchymosis noted to dorsum of the right proximal forearm below the right elbow. Skin: No rashes or petechia, no signs of infection. Psychiatric: Alert and oriented, normal behavior and judgment for situation. Neurological: Alert and oriented to person, place, and time. Follows all commands. No focal deficits, speech is clear and fluent. Course Vital Signs Vital signs: Vital Signs Temperature 97.7 F 06/21/24 03:38 Pulse Rate 85 06/21/24 03:38 Respiratory Rate 18 06/21/24 03:38 Blood Pressure 125/58 L 06/21/24 03:38 Pulse Oximetry 99 06/21/24 03:38 Oxygen Delivery Room Air 06/21/24 03:38 Temperature 97.7 F 06/21/24 03:38 Pulse Rate 85 06/21/24 03:38 Respiratory Rate 18 06/21/24 03:38 Blood Pressure 125/58 L 06/21/24 03:38 Pulse Oximetry 99 06/21/24 03:38 Oxygen Delivery Room Air 06/21/24 03:38 Medical Decision Making MDM Narrative Medical decision making narrative: The patient was evaluated by myself in the emergency department. History is obtained from patient who is an independent historian and physical exam was performed. External medical records were reviewed at this time. IV was established and pertinent tests were ordered. Patient was administered 4 mg IV morphine for pain and 4 mg IV Zofran for nausea. Imaging studies obtained included a right shoulder x-ray which was independently interpreted by me revealing what appears to be an anterior shoulder dislocation with a Hill-Sachs/greater tuberosity fracture. X-ray is currently pending official radiology interpretation. At this time, case was discussed with the on-call orthopedic surgeon Dr. Bales at 0424 and he recommended transferring the patient to a trauma center as he does not feel comfortable caring for this patient. Differential diagnosis considerations include fracture, dislocation. Comorbidities impacting this visit include none. I have evaluated and discussed social determinants of health with the patient that could potentially impact subsequent diagnosis and treatment plans. On repeat assessment of the patient, reevaluation revealed that the patient is doing well and is in no acute distress. Patient symptoms have improved since he arrived to our emergency department. Repeat vital signs were all reviewed and noted to be stable. Differential diagnosis and treatment plan were discussed with the patient at bedside. Patient agrees with discussion and after shared medical decision making agrees with transfer. All questions were answered to the patient's satisfaction. [facility] transfer line was contacted at [phone] and case was discussed with the on-call ED physician Dr. Gordon at [phone] who accepted transfer. Patient was placed in a right upper extremity sling prior to transfer to [facility]. Vital Signs Vital Signs: Vital Signs Temperature 97.7 F 06/21/24 03:38 Pulse Rate 85 06/21/24 03:38 Respiratory Rate 18 06/21/24 03:38 Blood Pressure 125/58 L 06/21/24 03:38 Pulse Oximetry 99 06/21/24 03:38 Oxygen Delivery Room Air 06/21/24 03:38 Temperature 97.7 F 06/21/24 03:38 Pulse Rate 85 06/21/24 03:38 Respiratory Rate 18 06/21/24 03:38 Blood Pressure 125/58 L 06/21/24 03:38 Pulse Oximetry 99 06/21/24 03:38 Oxygen Delivery Room Air 06/21/24 03:38 Discharge Plan Discharge Clinical Impression: Anterior dislocation of right shoulder, Fracture of humerus, right, closed Patient Disposition: Acute Care Hospital Condition: Improved Patient Language: Citizen Of [place] Prescriptions: No Action aspirin [Adult Low Dose Aspirin] 81 mg tablet,delayed release (DR/EC) 81 mg PO DAILY sodium chloride 1,000 mg tablet,soluble 1,000 mg PO DAILY Qty: 90 2RF losartan 100 mg tablet See Rx Instructions .ROUTE .COMPLEX Qty: 90 2RF Dose Instruction: TAKE 1 TABLET BY MOUTH DAILY Rx Instructions: TAKE 1 TABLET BY MOUTH DAILY amlodipine 10 mg tablet See Rx Instructions .ROUTE .COMPLEX Qty: 90 2RF Dose Instruction: TAKE 1 TABLET BY MOUTH DAILY Rx Instructions: TAKE 1 TABLET BY MOUTH DAILY Follow-up/Referrals: Juanito Woodward MD [Primary Care Provider] - Time of Disposition: 05:57
--- OUTSIDE RECORDS SUMMARY | 2024-06-21 05:25 | XMS_ITS | Continuity of Care Document ---
Author Organization [employer] [facility] [place] Address [address] [place] [address] Phone Care Team Providers Care Board Turner Name Role Phone [place] SOTO FACS, Rip [...] Providers Copied on Encounter [facility], [address], [place], [place], [id number], tel:[phone] SEC [place] 2 week post op (chief complaint) FOLLOW-UP SURGERY NOS Mar-0 2- 3 [place] Erwin. [facility] [address], [address], [place], [place], [id number], . tel:[phone] [facility], [address], [place], [place], [address], tel:[phone] SEC [place] 1 day PO OS (chief complaint) FOLLOW-UP SURGERY NOS Feb-2 2- 3 [place] Erwin. [address], [address], [place], [place], [address], [place]. tel:[phone] [facility], [facility] [address], [place], [place], [address], [place] tel:[phone] [facility] No Information Feb-2 - 3 [place] Erwin. [address], [address], [place], [place], [address], [place]. tel:[phone] Referring Provider: Rip Velasco, [facility] [address], [place], [address] . tel:[phone] [facility], [address], [place], [place], [address], [place] tel:[phone] SEC [place] [address] [place] No Information Nov- 3 [place] Rip. [address], [address], [place], [place], [address], [place]. tel:[phone] [facility] Eye [facility], [address] [place] [address] [address], [place], [place], [address], [place] tel:[phone] SEC Esther N Lindbergh blurry vision (chief complaint) No Information Oct-2 [address] [place] [address]ip[address] [place], [place] [address], [address], [place], [place], [address], [place]. tel:[phone] Referring Provider: Saúl Garrison, [address] [facility], [place], [place], [facility]. tel:[phone] [facility], [address] [place] [address] [address], [place], [place], [address], [place] tel:[phone] SEC [place] No Information Jan- 3 [place] Rip. [address] [place] [address] Kiip [facility], [address], [place], [place], [address], [place]. tel:[phone] [facility], [address] [place] [address] [address], [place], [place], [address], [place] tel:[phone] SEC [facility] No Information Oct-2 3-200 9 Krishnasamy Shawn. [address], [facility], [place]. tel:[phone] [facility], [address] [place] [address] [address], [place], [place], [address], [place] tel:[phone] SEC [facility] No Information Oct-0 2-200 9 Krishnasamy Shawn. [address] [facility] [address], [place], [facility], [place]. tel:[phone] [facility], [address] [facility], [place], [place], [address], tel:[phone] [facility] No Information Sep-2 5-200 9 Krishnasamy Shawn. [address], [facility], . tel:[phone] [facility] Eye [facility], [address], [place], [place], [address], tel:[phone] [facility] No Information Sep-2 4-200 9 Krishnasamy Shawn. [address], [facility], . tel:[phone] Referring Provider: Saúl Lopez OD F, [address], [place], [place], [facility]. tel:[phone] [facility], [address] [facility], [address], [place], [place], [address], tel:[phone] [facility] No Information Sep-0 2-200 9 Krishnasamy Shawn. [facility] [address], [facility], . tel:[phone] Referring Provider: Saúl Lopez OD F, [address] [facility], [place], [place], [facility]. tel:[phone] Family History Family Member Type Diagnosis Age [...]
== END 2024-06-21 05:55 | disposition short-term general hospital (02) ==
LOC: ANHED 05:23
PROVIDERS: Emergency Provider Emergency Medicine; PCP Emergency Medicine
DX: S42.291A Other displaced fracture of upper end of right humerus, initial encounter for closed fracture (principal); I10 Essential (primary) hypertension; I35.0 Nonrheumatic aortic (valve) stenosis; E55.9 Vitamin D deficiency, unspecified; E78.49 Other hyperlipidemia; Z87.891 Personal history of nicotine dependence; Z79.82 Long term (current) use of aspirin; Z79.899 Other long term (current) drug therapy; W00.0XXA Fall on same level due to ice and snow, initial encounter
CPT/HCPCS: 73030; 96374; 96375; 99285; A4565; J2270; J2405

== ENCOUNTER 2024-07-22 07:56 | Inpatient (IN) | payer MEDICARE, OTHER, SELFPAY ==
[2024-07-22] VITALS (23 sets, daily range): BP systolic 101–130; BP diastolic 68–105; PULSE 74–152; RESP 18–32; TEMP 36.3–36.8; O2SAT 93–100; BMI 30.1
--- NOTE | ~2024-07-22 | XR_ITS ---
EXAMINATION: XR chest 2V DATE: 07/22/2024 10:15 INDICATION: Shortness of breath. TECHNIQUE: Frontal and lateral views of the chest were obtained. COMPARISON: Chest 2 views 07/21/2011, chest CT 07/22/2024 FINDINGS: There are moderate-sized pleural effusions. There are airspace opacities at the lung bases. There is a 10 mm nodule in left upper lobe. No pneumothorax. Cardiomegaly is noted. IMPRESSION: 1. 10 mm nodule at left lung upper lobe, which may be infection or neoplasm. Noncontrast low-dose silvina st CT is recommended in 3 months. 2. Airspace opacities at the lung bases, likely atelectasis. 3. Moderate-sized pleural effusions. 4. Cardiomegaly. Reviewed, dictated and finalized at location A. IMPRESSION: 1. 10 mm nodule at left lung upper lobe, which may be infection or neoplasm. No ncontrast low-dose chest CT is recommended in 3 months. 2. Airspace opacities at the lung bases, likely atelectasis. 3. Moderate-sized pleural effusions. 4. Cardiomegaly.
--- NOTE | ~2024-07-22 | CT_ITS ---
EXAMINATION: CTA chest PE protocol DATE: 07/22/2024 09:35 INDICATION: Shortness of breath. Atrial fibrillation. TECHNIQUE: Computed tomography angiography (CTA) of the chest was performed with 100 mL Omnipaque-350 intravenous contrast timed to evaluate the pulmonary arteries. Coronal maximum intensity projection 3D-reconstructions were created by the technologist. Automated exposure control and iterative reconst ruction technique were employed. The dose-length product was 456.92 mGy-cm. COMPARISON: None. FINDINGS: There are moderate-sized pleural effusions. There is dependent atelectasis bilaterally. A c alcified left lung nodule and calcified left hilar lymph nodes are consistent with old granulomatous disease. There is smooth septal thickening in the lungs, consistent with mild pulmonary edema. Cardio megaly is noted. There are coronary artery calcifications. There are calcifications of the aortic juani ve. There is no pulmonary embolus. There are old healed left rib fractures. There are bridging endpla te osteophytes at multiple levels in the spine, consistent with diffuse idiopathic skeletal hyperosto sis (DISH). IMPRESSION: 1. No pulmonary embolus. 2. Mild pulmonary edema. 3. Moderate-sized pleural effusions. Reviewed, dictated and finalized at location A.
--- NOTE | 2024-07-22 07:57 | ECG_ITS ---
Test Date: 2024-07-22 08:05:00 Measurements Intervals [place] Rate: 152 P: 0 AR: 0 QRS: 42 QRSD: 92 T: 0 QT: 289 QTc: 460 Interpretive Statements ATRIAL FIBRILLATION WITH RAPID VENTRICULAR RESPONSE NONSPECIFIC ST & T-WAVE ABNORMALITY No previous ECG available for comparison Electronically Signed On 07-22-2024 16:12:41 CDT by Hannah Lamb M.D.
--- OUTSIDE RECORDS SUMMARY | 2024-07-22 08:04 | XMS_ITS | Encounter Summary ---
Author Organization [facility] Address [address] [facility] [address] [place] [address] Care Team Providers Care Wing Mailer Machine Operator Name Role Phone Juanito Woodward MD Primary Care Provide r Juanito Woodward MD Unavailable [phone] Encounter Details Date Type Department Care Team (Late st Contact Info) Description 08/21/2016 Orders Only [facility] Provider, MD Neil [address] [place] [address] Social History Tobacco Use Types Packs/Day Years Used Date Smoking Tobacco: Never Assessed Sex and Gender Information Value Date Recorded Sex Assigned at Not on file Legal Sex Male 1:55 AM DIRECTOR HRIS Gender Identity Not on file Sexual Orientation Not on file documented as of this encounter Plan of Treatment Not on file documented as of this encounter Procedures Procedure Name Priority Date/Time Associated Diagnosis Comments CARDIOLOGY REPORT 08/21/2016 documented in this encounter Results * CARDIOLOGY REPORT (08/21/2016) Anatomical Region Laterality Modality Other Narrative 08/21/2016 Ordered by an unspecified provider. Historical Provider [facility] PATRICIA TOBIAS Final Result documented in this encounter Visit Diagnoses Not on filedocumented in this encounter Additional Health Concerns Infection Onset Date Last Indicated Resolved Time COVID: Suspected 06/21/2024 06/21/2024 06/21/2024 2:11 PM DIRECTOR HRIS documented as of this encounter Care Teams Wing Mailer Machine Operator Relationship Specialty Start Date End Date Juanito Woodward MD [address] [place] [address] PCP - General 08/10/16 Juanito Woodward MD [address] [place] [address] 08/10/16 documented as of this encounter
--- OUTSIDE RECORDS SUMMARY | 2024-07-22 08:04 | XMS_ITS | Referral Summary ---
Author Organization [facility] Address [address] [place] [address] Care Team Providers Care Rn Immunology Name Role Phone Juanito Woodward MD Primary Care Provide r Juanito Woodward MD Unavailable [phone] Encounters Date Type Department Care Team Description 06/23/2024 Telephone [facility] Orthopaedic Surgery 1981 [facility] Medicine 6th [place] [address] [place] [address] Sushant Andrew MD 06/21/2024 6:27 AM COIN [employer]SE [employer]AMER - 06/22/2024 1:09 PM [facility] Hospital Encounter [facility] [address] [place] [address] Zana Kelley MD Watson, Brendan Matthew, MD PhD Juan Naranjo MD Kapoor, MD Ngoc Wilkerson Marin H., MD Mok, MD Irasema Mora, Clovis Moctezuma MD Humeral head fracture, right, closed, initial encounter (Primary Dx); CAP (community acquired pneumonia); Hyponatremia; Hypoxia; Acute respiratory failure with hypoxia (HCC) Discharge Disposition: Discharge to home or self care from Last 3 Months Allergies No known active allergies Medications levoFLOXacin (LEVAQUIN) 750 mg tabletIndicatio ns:Pneumonia, Community Acquired Take 1 tablet (750 mg total) by mouth cutter woodwind reeds before breakfast for 7 doses 7 tablet 5 07/01/19 25 Active Problems Problem Noted Date Diagnosed Date Humeral head fracture, right, closed, initial en counter 06/21/2024 Assessment & Plan (06/22/2024 7:30 AM COIN [employer] FRAMER): -right shoulder dislocation and humeral head fracture s/p reduction by ortho in the ED -continue sling, RUE NWB -pain control with tylenol, ketorolac, and PRN oxycodone -ortho to set up outpatient follow up Acute respiratory failure 06/21/2024 Assessment & Plan (06/22/2024 7:30 AM [employer]AMER): -unclear etiology, suspect community acquired pneumonia, atelectasis, pulmonary contusion -noted to be hypoxic in the ED requiring opti-flow, now weaned to 2L nasal cannula -wean as tolerated for SpO2 > 92% -infectious work up pending with blood cultures and UA, empiric antibiotics with azithromycin and ceftriaxone -pain control for rib fractures -pulmonary toilet, IS -bronchodilators PRN Hyponatremia 06/21/2024 Assessment & Plan (06/21/2024 4:05 PM CO[employer]AMER): -chronic per patient, unclear etiology -sodium tabs prescribed as outpatient, continue for now. Alcohol abuse, daily use 06/21/2024 Assessment & Plan (06/22/2024 7:30 AM CO[employer]AMER): -reportedly drinks 4-5 beers/day. Denies history of withdrawal or seizures in the past -ETOH level 31 in ED -monitor for signs of withdrawal, CIWA protocol HTN (hypertension) 06/21/2024 Assessment & Plan (06/21/2024 4:02 PM COIN [employer]AMER): -continue amlodipine and losartan Social History Tobacco Use Types Packs/Day Years Used Date Smoking Tobacco: Former Cigarettes Q uit: 06/21/1989 Tobacco Cessation:Counseling Given: Not Answered Personal Safety Answer Date Recorded Have you ever been in or are you currently in a harmful physical or emotional relationship or is someone making you feel afraid or unsafe? Denies 06/21/2024 Sex and Gender Information Value Date Recorded Sex Assigned at Not on file Legal Sex Male 1:55 AM CO[employer]ER Gender Identity Not on file Sexual Orientation Not on file Last Filed Vital Signs Vital Sign Reading Time Taken Comments Blood Pressure 119/69 06/22/2024 12:00 PM [employer]ER Pulse 84 06/22/2024 12:00 PM [employer]ER Temperature 36.8 C (98.2 F) 06/22/2024 8:00 AM [employer]ER Respiratory Rate 22 06/22/2024 12:0 0 PM [employer]ER Oxygen Saturation 94% 06/22/2024 12: 00 PM [employer]ER Inhaled Oxygen Concentration - - Weight 98.3 kg (216 lb 11.4 oz) 06/21/2024 3:41 PM [employer]ER Height 185.4 cm (6' 1 ) 06/21/2024 3:41 PM [employer]ER Body Mass Index 28.59 06/21/2024 3:41 PM [employer]ER Plan of Treatment Not on file Procedures Procedure Name Priority Date/Time Associated Diagnosis Comments EGFR Routine 06/22/2024 5:59 AM COIN [employer]ER DIFFERENTIAL AUTO Routine 06/22/2024 5:5 9 AM [employer]ER PHOSPHORUS Routine 06/22/2024 5:59 AM [employer]ER MAGNESIUM Routine 06/22/2024 5:59 AM CO[employer]ER CBC WITH AUTO DIFFERENTIAL Routine 06/22/2024 5:59 AM [employer]ER BASIC METABOLIC PANEL Routine 06/22/2024 5:59 AM [employer]ER TROPONIN I HIGH-SENSITIVITY Routine 06/22/2024 5:59 AM CO[employer]ER RPR Routine 06/22/2024 5:59 AM [employer]ER HEPATITIS C ANTIBODY Routine 06/22/2024 5:59 AM [employer]ER HEPATITIS B SURFACE ANTIGEN Routine 06/22/2024 5:59 AM [employer]ER HIV 1/2 ANTIBODY PLUS P24 ANTIGEN Routine 06/22/2024 5:59 AM [employer]ER URINALYSIS, MICROSCOPIC ONLY Routine 06/21/2024 4:33 PM [employer]ER URINALYSIS AND REFLEX TO MICROSCOPIC AND CULTURE Routine 06/21/2024 4:33 PM [employer]ER TROPONIN I HIGH-SENSITIVITY STAT 06/21/2024 3:57 PM [employer]ER BLOOD GAS, ARTERIAL STAT 06/21/2024 3 :57 PM [employer]ER BLOOD CULTURE Routine 06/21/2024 3:57 PM [employer]ER BLOOD CULTURE Routine 06/21/2024 3:57 PM [employer]ER SODIUM, URINE, RANDOM Routine 06/21/2024 1:19 PM [employer]ER OSMOLALITY, URINE Routine 06/21/2024 1:1 9 PM [employer]ER OSMOLALITY, BLOOD Routine 06/21/2024 1:0 3 PM [employer]ER RESPIRATORY PATHOGEN PANEL STAT 06/21/2024 1:[address] CHEST ABDOMEN PELVIS W CONTRAST ED 06/21/2024 12:[address] RECON THORACIC AND LUMBAR SPINE W CONTRAST ED 06/21/2024 12:[address] SHOULDER RIGHT WO CONTRAST ED 06/21/2024 12:38 PM COIN [employer]ER IN CRITICAL CARE ILL/INJURED PATIENT INIT 30-74 MIN Routine 06/21/2024 12:19 PM [employer]ER XR SHOULDER RIGHT 2 OR MORE VIEWS ED Urgent/IP Urgent 06/21/2024 10:21 AM [employer]SE [employer]ER PRO B-TYPE NATRIURETIC PEPTIDE STAT 06/21/2024 8:55 AM COIN [employer]SE [employer]ER EGFR STAT 06/21/2024 8:55 AM [employer]ER COMPREHENSIVE METABOLIC PANEL STAT 06/21/2024 8:55 AM CO[employer]ER XR PELVIS 1 OR 2 VIEWS ED 06/21/2024 8:51 AM [employer]AMER XR CHEST 1 VIEW ED 06/21/2024 8:51 AM COIN [employer]SE [employer]AMER B CHECK SAMPLE STAT 06/21/2024 8:28 AM COIN [employer]AMER ECG 12-LEAD STAT 06/21/2024 7:42 AM CO[employer]ER EGFR STAT 06/21/2024 7:42 AM CO[employer]ER DIFFERENTIAL AUTO STAT 06/21/2024 7:4 2 AM COIN [employer]SE [employer]ER ETHANOL STAT 06/21/2024 7:42 AM COIN [employer]SE [employer]AMER APTT STAT 06/21/2024 7:42 AM COIN [employer]SE [employer]ER PROTIME-INR STAT 06/21/2024 7:42 AM COIN [employer]SE [employer]ER TYPE AND SCREEN STAT 06/21/2024 7:42 AM CO[employer]ER COMPREHENSIVE METABOLIC PANEL STAT 06/21/2024 7:42 AM COIN [employer]SE FRAMER CBC WITH AUTO DIFFERENTIAL STAT 06/21/2024 7:42 AM COIN [employer]SE [employer]ER XR HUMERUS RIGHT 2 OR MORE VIEWS ED 06/21/2024 7:23 AM COIN [employer]ER XR SHOULDER RIGHT 2 OR MORE VIEWS ED 06/21/2024 7:23 AM COIN [employer]AMER XR TRANSFER OF OUTSIDE FILMS Routine 06/21/2024 7:22 AM COIN [employer]SE FRAMER ED MODERATE SEDATION Routine 06/21/2024 5:33 AM COIN [employer]SE FRAMER from Last 3 Months Results * (ABNORMAL) Troponin I high-sensitivity (06/22/2024 5:59 AM COIN [employer]SE FRAMER) Trop I hs 37(H) <=35 ng/L Comment: Interpretive Data For further hscTnI resources including the diagnostic algorithm and an aid in interpretation, copy and paste this link: https://bjhlab.testcatalog.org/show/[email or web address] Current Interpretive Data last revised 2019. Blood 06/22/2024 5:59 AM COIN [employer]SE FRAMER 06/22/2024 6:19 AM COIN [employer]SE FR[employer]ER us Aide Duffy NP LAB BLOOD ORDERABLES F inal Result [facility] Department [place] [address] * eGFR (06/22/2024 5:59 AM COIN [employer]SE FRAMER) eGFR 88 >=60 mL/min/1. 73 m2 Comment: Interpretive Data Reference Interval Normal >/= 90 mL/min/1.73m2 Mildly decreased* 60 - 89 mL/min/1.73m2 Mildly to moderately decreased 45 - 59 mL/min/1.73m2 Moderately to severely decreased 30 - 44 mL/min/1.73m2 Severely decreased 15 - 29 mL/min/1.73m2 Kidney Failure < 15 mL/min/1.73m2 *Relative to young adult level Estimated glomerular filtration rate is determined by the 2020 CKD-EPI equation recommended by the National Kidney Foundation (A Unifying Approach to GFR Estimation: Recommendations of the NKF-ASK Task Force on Reassessing the Inclusion of Race in Diagnosing Kidney Disease, JASN 2020). The CKD-EPI equation should not be used for patients with unstable renal function and has not been validated in children and those over 70. Current interpretive data was last reviewed 2021. Blood 06/22/2024 5:59 AM COIN [employer]SE FRAMER 06/22/2024 6:19 AM COIN [employer]SE [employer]ER us Jaylin Kamara MD LAB BLOOD ORDERABLES Teetee inna Result [facility] Department [place] [address] * (ABNORMAL) Differential, auto (06/22/2024 5:59 AM COIN [employer]SE FRAMER) Neutrophil abs 11.4(H) 1.5 - 6.5 K/cumm Imm gran abs 0.1 0.0 - 0.1 K/cumm [facility] Lymphocyte abs 0.8 0.8 - 3.3 K/cumm [facility] Monocyte abs 1.6(H) 0.2 - 0.8 K/cumm [facility] Eosinophil abs 0.0 0.0 - 0.5 K/cumm [facility] Basophil abs 0.0 0.0 - 0.1 K/cumm [facility] Neutrophil pct 82.4 % [facility] Comment: Interpretive Data Percent cell count reference ranges are not reported, since discordance with absolute values may lead to misinterpretation of CBC data. Current Interpretive Data was last revised on 2017. Imm gran pct 0.4 % [facility] Comment: Interpretive Data Percent cell count reference ranges are not reported, since discordance with absolute values may lead to misinterpretation of CBC data. Current Interpretive Data was last revised on 2017. Lymphocyte pct 5.6 % [facility] Comment: Interpretive Data Percent cell count reference ranges are not reported, since discordance with absolute values may lead to misinterpretation of CBC data. Current Interpretive Data was last revised on 2017. Monocyte pct 11.4 % [facility] Comment: Interpretive Data Percent cell count reference ranges are not reported, since discordance with absolute values may lead to misinterpretation of CBC data. Current Interpretive Data was last revised on 2017. Eosinophil pct 0.1 % [facility] Comment: Interpretive Data Percent cell count reference ranges are not reported, since discordance with absolute values may lead to misinterpretation of CBC data. Current Interpretive Data was last revised on 2017. Basophil pct 0.1 % [facility] Comment: Interpretive Data Percent cell count reference ranges are not reported, since discordance with absolute values may lead to misinterpretation of CBC data. Current Interpretive Data was last revised on 2017. Blood 06/22/2024 5:59 AM COIN [employer]SE FRAMER 06/22/2024 6:19 AM COIN [employer]SE FRAMER us Aide Duffy NP LAB BLOOD ORDERABLES F inal Result Performing Organization Address [facility] Co de Phone Number [facility] [place] [address] * HIV 1/2 Antibody plus p24 Antigen Blood (06/22/2024 5:59 AM COIN PURSE FRAMER) [facility] HIV 1/2 ab + p24 ag Nonreactive Nonreactive Comment:Nonreactive for HIV- 1 antigen and HIV-1/HIV-2 antibodies. No laboratory evidence of HIV infection. If acute HIV infection is suspected, consider testing for HIV-1 RNA. Current interpretive data was last revised on 21. Blood 06/22/2024 5:59 AM COIN [employer]SE FRAMER 06/22/2024 6:19 AM CO[employer]SE [employer]ER us Clovis Villalpando MD LAB MICROBIOLOGY - GENERA L ORDERABLES Final Result Performing Organization Address [facility] Co de Phone Number [facility] [place] [address] * (ABNORMAL) CBC with auto differential (06/22/2024 5:59 AM COIN [employer]SE [employer]AMER) [facility] WBC 13.9(H) 3.8 - 9.9 K/cumm Hgb 12.4(L) 13.0 - 17.5 g/dL [facility] Hct 34.6(L) 38.9 - 50.3 % [facility] Plt 189 150 - 400 K/cumm [facility] MPV 10.7 9.1 - 12.3 fL [facility] RBC 3.46(L) 4.30 - 5.80 M/cumm [facility] MCV 100.0(H) 81.3 - 96.4 fL [facility] MCH 35.8(H) 27.1 - 33.3 pg [facility] MCHC 35.8(H) 32.3 - 35.7 g/dL [facility] RDW CV 11.7 11.1 - 14.9 % [facility] RDW SD 42.6 35.7 - 48.1 fL [facility] NRBC abs 0.00 0.00 - 0.01 K/cumm [facility] Blood 06/22/2024 5:59 AM CO[employer]ER 06/22/2024 6:19 AM CO[employer]ER us Aide Duffy NP LAB BLOOD ORDERABLES F inal Result Performing Organization Address City/[facility] Co de Phone Number [facility] [place] [address] * Hepatitis C antibody Blood (06/22/2024 5:59 AM COIN [employer]AMER) Hep C Ab Nonreactive Nonreactive Comment:Antibodies to HCV no t detected. Does NOT exclude the possibility of recent exposure to HCV. Current interpretive data was last revised on 21 Blood 06/22/2024 5:59 AM CO[employer]ER 06/22/2024 6:19 AM CO[employer]ER us Clovis Villalpando MD LAB MICROBIOLOGY - GENERA L ORDERABLES Final Result Performing Organization Address City/[facility] Co de Phone Number [facility] Department [place] [address] * RPR Blood (06/22/2024 5:59 AM COIN [employer] FRAMER) RPR Nonreactive Nonreactive Blood 06/22/2024 5:59 AM CO[employer] FRAMER 06/22/2024 6:19 AM COIN [employer]SE [employer]ER us Clovis Villalpando MD LAB MICROBIOLOGY - GENERA L ORDERABLES Final Result Performing Organization Address City/[facility] Co de Phone Number [facility] Department [place] [address] * Hepatitis B Surface Antigen Blood (06/22/2024 5:59 AM COIN [employer]SE FRAMER) [facility] HepBsAg Nonreactive Nonreactive Blood 06/22/2024 5:59 AM CO[employer]ER 06/22/2024 6:19 AM CO[employer]ER Clovis Villalpando MD LAB MICROBIOLOGY - GENERA L ORDERABLES Final Result Performing Organization Address [facility] [place] [address] * Phosphorus (06/22/2024 5:59 AM COIN [employer]AMER) [facility] Phosphorus, pl 4.0 2.3 - 4.5 mg/dL Blood 06/22/2024 5:59 AM CO[employer]ER 06/22/2024 6:19 AM CO[employer]ER Aide Duffy NP LAB BLOOD ORDERABLES F inal Result Performing Organization Address [facility] [place] [address] * Magnesium (06/22/2024 5:59 AM COIN [employer]SE FRAMER) [facility] Magnesium 1.9 1.4 - 2.5 mg/dL Blood 06/22/2024 5:59 AM CO[employer]ER 06/22/2024 6:19 AM CO[employer]SE [employer]ER Aide Duffy [employer] LAB BLOOD ORDERABLES F inal Result Performing Organization Address [facility] [place] [address] * (ABNORMAL) Basic metabolic panel (06/22/2024 5:59 AM COIN [employer]AMER) [facility] Sodium 127(L) 135 - 145 mmol/L Potassium, pl 4.7 3.3 - 4.9 mmol/L [facility] Chloride 89(L) 97 - 110 mmol/L [facility] CO2 27 22 - 32 mmol/L [facility] Anion gap 11 2 - 15 mmol/L [facility] BUN 17 6 - 25 mg/dL [facility] Creatinine 0.92 0.80 - 1.30 mg/dL [facility] Glucose 138 70 - 199 mg/dL [facility] Comment: Interpretive Data Fasting glucose >/= 126 mg/dl is diagnostic for diabetes. Fasting is defined as no caloric intake for at least 8 hours. Fasting glucose between 100 mg/dl to 125 mg/dl is diagnostic of prediabetes. In a patient with classic symptoms of hyperglycemia or hyperglycemic crisis, a random glucose >/= 200 mg/dl is diagnostic for diabetes. In the absence of unequivocal hyperglycemia, results should be confirmed by repeat testing. The classification and Diagnosis of Diabetes Diabetes Care 2021; 46: S19-S40. Current interpretive data was last revised 2022. Calcium 8.8 8.5 - 10.3 mg/dL [facility] Blood 06/22/2024 5:59 AM CO[employer]ER 06/22/2024 6:19 AM CO[employer]ER us Jaylin Kamara MD LAB BLOOD ORDERABLES Teetee keith Result [facility] Department [place] [address] * (ABNORMAL) Urinalysis reflex to microscopic and culture Urine (06/21/2024 4:33 PM COIN [employer]AMER) Color, ur Yellow Yellow Clarity, ur Clear Clear [facility] Specific gravity, ur 1.027 1.003 - 1.030 [facility] pH, urine 6.0 [facility] Comment: Interpretive Data U rine pH is affected by diet, medications, systemic acid-base disturbances, and renal tubular function. pH may affect urinary stone formation. For example, urine pH below 6.0 may help reduce the tendency for calcium phosphate stones and pH greater than 6.0 may reduce the tendency for uric acid stone formation. Source: [facility] Laboratories Current Interpretive Data was last revised on 2017 Protein, ur ql 1+(A) Negative [facility] Glucose, ur ql Negative Negative [facility] Ketones, ur 1+(A) Negative [facility] Bilirubin, ur Negative Negative [facility] Blood, ur 1+(A) Negative [facility] Urobilinogen, ur <2.0 <2.0 mg/dL [facility] Nitrite, ur Negative Negative [facility] Leukocyte esterase, ur Trace(A) Negative [facility] UA reflex comment Reflex to microscopic UA will be performed. [facility] Urine 06/21/2024 4:33 PM COIN [employer]SE FRAMER 06/21/2024 4:43 PM [employer]ER Aide Duffy NP LAB MICROBIOLOGY - GEN ERAL ORDERABLES Final Result Performing Organization Address [facility] de Phone Number [facility] [place] [address] * (ABNORMAL) Urinalysis, microscopic only (06/21/2024 4:33 PM COIN [employer]SE FRAMER) WBC, ur 0-5 0 - 5 /HPF RBC, ur 3-5(A) 0 - 2 /HPF [facility] Epithelial cells, squamous, ur 1-5 0 - 5 /HPF [facility] Mucous, ur Present(A) [facility] Amorphous crystals, ur 2+(A) [facility] Hyaline casts, ur 21-50(A) 0 - 10 /LPF [facility] Culture Reflex Comment Reflex conditions for urine culture (WBC >10) not met. [facility] Urine 06/21/2024 4:33 PM COIN [employer] FRAMER 06/21/2024 4:43 PM [employer]ER Aide Duffy NP LAB URINE ORDERABLES F inal Result Performing Organization Address [facility] de Phone Number [facility] [place] [address] * (ABNORMAL) Troponin I high-sensitivity (06/21/2024 3:57 PM COIN [employer]AMER) Trop I hs 64(H) <=35 ng/L Comment: Interpretive Data For further hscTnI resources including the diagnostic algorithm and an aid in interpretation, copy and paste this link: https://bjhlab.testcatalog.org/show/hsTrop-[email or web address] Current Interpretive Data last revised 2019. Blood 06/21/2024 3:57 PM CO[employer]SE FRAMER 06/21/2024 4:22 PM COIN [employer]SE [employer]ER Aide Duffy [employer] LAB BLOOD ORDERABLES F inal Result [facility] Department [place] [address] * Blood culture Blood (06/21/2024 3:57 PM COIN [employer]SE FRAMER) Report Final Report: No growth Blood 06/21/2024 3:57 PM COIN [employer]SE FRAMER 06/21/2024 4:18 PM COIN [employer]SE FRAMER Narrative [facility] - 06/26/2024 7:01 AM COIN PURSE FRAMER From a different site than #1. Collection->Peripheral 1. Blood cultures are incubated for 4 days on a continuously monitored blood culture system. The first report of a negative culture is issued within 24 hours of receipt of the specimen in the laboratory. 2. Positive culture results are reported as soon as they are detected. 3. The most important factor for detection of microbes in the setting of bloodstream infection is the volume of blood submitted for culture. Failure to collect an optimal blood volume can result in false negative blood cultures. 4. For pediatric patients, the recommended blood volume to collect follows a weight based strategy. See the electronic test catalog for collection instructions. 5. For positive blood cultures, a rapid molecular test may be performed for organism identification using the lui ePlex blood culture identification panel for gram positive (BCID-GP) and gram negative (BCID-GN) organisms. This nucleic acid amplification test detects microbial DNA in positive blood culture broth. This assay has been cleared by the [place] Food and Drug Administration and its performance characteristics have been verified by the [facility]. For questions about this culture, contact the Microbiology Laboratory at [phone]. Interpretive data was last revised on 24. Aide Duffy NP LAB MICROBIOLOGY - GEN ERAL ORDERABLES Final Result [facility] Department [place] [address] * Blood culture Blood (06/21/2024 3:57 PM COIN PURSE FRAMER) Report Final Report: No growth Blood 06/21/2024 3:57 PM COIN PURSE FRAMER 06/21/2024 4:18 PM COIN [employer]SE FRAMER Narrative [facility] - 06/26/2024 7:01 AM COIN [employer]SE FRAMER Collection->Peripheral 1. Blood cultures are incubated for 4 days on a continuously monitored blood culture system. The first report of a negative culture is issued within 24 hours of receipt of the specimen in the laboratory. 2. Positive culture results are reported as soon as they are detected. 3. The most important factor for detection of microbes in the setting of bloodstream infection is the volume of blood submitted for culture. Failure to collect an optimal blood volume can result in false negative blood cultures. 4. For pediatric patients, the recommended blood volume to collect follows a weight based strategy. See the electronic test catalog for collection instructions. 5. For positive blood cultures, a rapid molecular test may be performed for organism identification using the lui ePlex blood culture identification panel for gram positive (BCID-GP) and gram negative (BCID-GN) organisms. This nucleic acid amplification test detects microbial DNA in positive blood culture broth. This assay has been cleared by the [place] Food and Drug Administration and its performance characteristics have been verified by the [facility]. For questions about this culture, contact the Microbiology Laboratory at [phone]. Interpretive data was last revised on 24. Aide Duffy NP LAB MICROBIOLOGY - GEN ERAL ORDERABLES Final Result Performing Organization Address City/[facility]/ZIP Co de Phone Number [facility] Department [place] [address] * (ABNORMAL) Blood gas, arterial (06/21/2024 3:57 PM COIN PURSE FRAMER) pH, Art 7.43 7.35 - 7.45 PCO2, Arterial 34(L) 35 - 45 mmHg [facility] PO2, Arterial 132(H) 83 - 108 mmHg [facility] HCO3 Art (Calculated) 23 20 - 30 mmol/L [facility] BE, art -1 mmol/L [facility] Comment: Interpretive Data No Reference Range Established Current Interpretive Data was last revised on 2017 O2 Sat Art (Measured) 99(H) 90 - 95 % [facility] Blood 06/21/2024 3:57 PM COIN [employer]SE FRAMER 06/21/2024 4:14 PM COIN [employer]SE FRAMER us Aide Duffy NP LAB BLOOD ORDERABLES F inal Result Performing Organization Address [facility]/ZIP Co de Phone Number [facility] Department [place] [address] * Sodium, urine, random (06/21/2024 1:19 PM COIN [employer]SE FRAMER) Sodium, ur 45 mmol/L Comment: Interpretive Data No reference range established. Current interpretive data was last revised 2018. Urine 06/21/2024 1:19 PM COIN PURSE FRAMER 06/21/2024 3:21 PM COIN PURSE FRAMER us Jaylin Kamara MD LAB URINE ORDERABLES Teetee l Result Performing Organization Address City/[facility]/ZIP Co de Phone Number [facility] [place] [address] * Osmolality, urine (06/21/2024 1:19 PM COIN PURSE FRAMER) Osmo, ur 420 mOsm/kg Urine 06/21/2024 1:19 PM COIN PURSE FRAMER 06/21/2024 3:21 PM COIN PURSE FRAMER us Jaylin Kamara MD LAB URINE ORDERABLES Teetee keith Result [facility] Department [place] [address] * Respiratory pathogen panel Nasopharyngeal (06/21/2024 1:03 PM COIN PURSE FRAMER) Pathologist [facility] Influenza A RNA Not Detected Not Detected Influenza B RNA Not Detected Not Detected [facility] RSV RNA Not Detected Not Detected [facility] COVID-19 RNA Not Detected Not Detected [facility] Coronavirus 229E RNA Not Detected Not Detected [facility] Coronavirus HKU1 RNA Not Detected Not Detected [facility] Coronavirus NL63 RNA Not Detected Not Detected [facility] Coronavirus OC43 RNA Not Detected Not Detected [facility] Adenovirus DNA Not Detected Not Detected [facility] Metapneumovirus RNA Not Detected Not Detected [facility] Rhinovirus/Enterov irus RNA Not Detected Not Detected [facility] Parainfluenza 1 RNA Not Detected Not Detected [facility] Parainfluenza 2 RNA Not Detected Not Detected [facility] Parainfluenza 3 RNA Not Detected Not Detected [facility] Parainfluenza 4 RNA Not Detected Not Detected [facility] B. pertussis DNA Not Detected Not Detected [facility] B. parapertussis DNA Not Detected Not Detected [facility] C. pneumoniae DNA Not Detected Not Detected [facility] M. pneumoniae DNA Not Detected Not Detected [facility] Nasopharyngeal 06/21/2024 1: 03 PM COIN PURSE FRAMER 06/21/2024 1:13 PM COIN PURSE FRAMER Narrative [facility] - 06/21/2024 2:10 PM COIN PURSE FRAMER Is the Patient experiencing symptoms consistent with COVID?->Unknown Surveillance testing for transplant patient?->No Interpretive Data The [employer] FilmArray Respiratory Panel (RP2.1) assay is a multiplexed real-time PCR based nucleic acid test capable of simultaneous qualitative detection and identification of multiple respiratory viral and bacterial nucleic acids, including SARS Coronavirus 2 (the causative agent of COVID-19). The following bacteria, viruses and virus subtypes can be identified using the FilmArray RP2.1 assay: Bordetella pertussis, Bordetella parapertussis, Chlamydia pneumoniae, Mycoplasma pneumoniae, Adenovirus, SARS Coronavirus 2, seasonal coronaviruses (Coronavirus HKU1, Coronavirus NL63, Coronavirus 229E, and Coronavirus OC43), Influenza A, Influenza A subtype H1, Influenza A subtype H3, Influenza A subtype 2009 H1, Influenza B, Metapneumovirus, Parainfluenza 1, Parainfluenza 2, Parainfluenza 3, Parainfluenza 4, RSV, Rhinovirus/Enterovirus. Due to the genetic similarity between human Rhinovirus and Enterovirus, the FilmArray RP2.1 assay cannot reliably differentiate them. Coronavirus OC43 may cross-react with some isolates of Coronavirus HKU1. A dual positive result may be due to cross-reactivity or may indicate a co- infection. The detection and identification of specific viral and bacterial nucleic acids from individuals exhibiting signs and symptoms of a respiratory infection aids in the diagnosis of respiratory infection if used in conjunction with other clinical and epidemiological information. The results of this test should not be used as the sole basis for diagnosis, treatment, or other management decisions. Negative results in the setting of a respiratory illness may be due to infection with pathogens that are not detected by this test. Positive results do not rule out infection/co-infection with other organisms. The agent(s) detected by the Film[employer] RP2.1 may not be the definite cause of disease. Additional testing (lab, imaging, etc.) may be necessary when evaluating a patient with possible respiratory tract infection. The FilmArray RP2.1 assay has FDA clearance for testing of [employer] swabs. The performance of additional specimen types has been assessed by the performing laboratory. The performance characteristics of this assay have been determined by [facility] Molecular Infectious Disease Laboratory. Current interpretive data was last revised on 22. us Jaylin Kamara MD LAB MICROBIOLOGY - GENERA L ORDERABLES Final Result [facility] Department [place] [address] * (ABNORMAL) Osmolality, blood (06/21/2024 1:03 PM COIN PURSE FRAMER) Osmo 270(L) 275 - 300 mOsm/kg Blood 06/21/2024 1:03 PM COIN [employer]SE FRAMER 06/21/2024 1:19 PM COIN PURSE FRAMER us Jaylin Kamara MD LAB BLOOD ORDERABLES Teetee keith Result [facility] Department [place] [address] * CT Recon Thoracic and Lumbar Spine W Contrast (C) (06/21/2024 12:38 PM COIN PURSE FRAMER) Anatomical Region Laterality Modality Spine N/A Computed Tomogra phy 06/21/2024 1:25 PM COIN PURSE FRAMER Impressions 06/21/2024 1:40 PM COIN PURSE FRAMER No evidence of acute fracture in the thoracic or lumbar spine. Dictated by: Cory Fregoso MD The radiology attending physician has personally reviewed this study, and had reviewed and/or edited this written report and agrees with it. Electronically signed by: Jose Carver M.D, PHD Narrative 06/21/2024 1:40 PM COIN [employer]SE FRAMER EXAMINATION: 1. CT of the thoracic spine with contrast 2. CT of the lumbar spine with contrast HISTORY: Fall TECHNIQUE: Dedicated reconstructions of the thoracic and lumbar spine were generated using data from a CT of the chest, abdomen, and pelvis acquired with intravenous contrast according to standard protocol. COMPARISON: None Available. FINDINGS: THORACIC SPINE: There are 12 rib-bearing thoracic vertebra. There is diffuse idiopathic skeletal hyperostosis. Upper thoracic levoscoliosis. Sagittal alignment of the thoracic spine is normal. There is no acute fracture. Vertebral bodies are normal in height without compression fractures. Intervertebral disk heights are normal. No high-grade neuroforaminal or spinal canal stenosis in the thoracic spine. LUMBAR SPINE: The alignment of the lumbar spine is normal. There is no acute fracture. The vertebral bodies are normal in height without compression fractures. The intervertebral disk heights are normal. There is multilevel degenerative disc disease and multilevel facet arthropathy of the lumbar spine. There is no high-grade neuroforaminal stenosis. There is multilevel spinal canal stenosis, which is likely at least moderate in severity at multiple levels in the lower lumbar spine. Please refer to separately dictated CT for visceral findings in the chest, abdomen, and pelvis. Procedure Note Jose Carver MD PhD - 06/21/2024 EXAMINATION: 1. CT of the thoracic spine with contrast 2. CT of the lumbar spine with contrast HISTORY: Fall TECHNIQUE: Dedicated reconstructions of the thoracic and lumbar spine were generated using data from a CT of the chest, abdomen, and pelvis acquired with intravenous contrast according to standard protocol. COMPARISON: None Available. FINDINGS: THORACIC SPINE: There are 12 rib-bearing thoracic vertebra. There is diffuse idiopathic skeletal hyperostosis. Upper thoracic levoscoliosis. Sagittal alignment of the thoracic spine is normal. There is no acute fracture. Vertebral bodies are normal in height without compression fractures. Intervertebral disk heights are normal. No high-grade neuroforaminal or spinal canal stenosis in the thoracic spine. LUMBAR SPINE: The alignment of the lumbar spine is normal. There is no acute fracture. The vertebral bodies are normal in height without compression fractures. The intervertebral disk heights are normal. There is multilevel degenerative disc disease and multilevel facet arthropathy of the lumbar spine. There is no high-grade neuroforaminal stenosis. There is multilevel spinal canal stenosis, which is likely at least moderate in severity at multiple levels in the lower lumbar spine. Please refer to separately dictated CT for visceral findings in the chest, abdomen, and pelvis. IMPRESSION: No evidence of acute fracture in the thoracic or lumbar spine. Dictated by: Cory Fregoso MD The radiology attending physician has personally reviewed this study, and had reviewed and/or edited this written report and agrees with it. Electronically signed by: Jose Carver M.D, PHD Tete Clark MD [facility] [place] PROCEDURES Final Result * CT Chest Abdomen Pelvis W Contrast (06/21/2024 12:38 PM COIN PURSE FRAMER) Anatomical Region Laterality Modality Body N/A Computed Tomogra phy 06/21/2024 1:30 PM COIN PURSE FRAMER Impressions 06/21/2024 2:02 PM COIN PURSE FRAMER 1. No findings of acute trauma in the chest, abdomen or pelvis. 2. Lateral left 6th rib fracture is favored to be subacute. 3. Small bilateral pleural effusions with asymmetric left greater than right dependent groundglass and consolidative opacities that likely represent components of atelectasis, aspiration and pulmonary edema giving septal line thickening. 4. Right humeral fracture better evaluated on dedicated shoulder CT. 5. Periumbilical hernia containing an uncomplicated loop of bowel that comes in close approximation to the skin surface. Dictated by: Danielle Meza MD The radiology attending physician has personally reviewed this study, and had reviewed and/or edited this written report and agrees with it. Electronically signed by: Juan Pillai MD, PHD Narrative 06/21/2024 2:02 PM COIN PURSE FRAMER EXAMINATION: Computed tomography of the chest, abdomen and pelvis with intravenous contrast HISTORY: 73 year-old status post slipped on ice and fell right humeral fracture TECHNIQUE: Transaxial computed tomographic images of the chest, abdomen and pelvis were obtained with intravenous contrast according to the standard protocol after the uneventful administration of 93 mL Opti-Ray 350 intravenous contrast. COMPARISON: None FINDINGS: Bilateral left greater than right pleural effusions with adjacent atelectasis consolidative and groundglass opacities in a dependent distribution, which may represent a component of aspiration. Bibasilar groundglass with smooth septal line thickening in keeping with edema. No pneumothorax. There is a 7 mm metallic density in the left lower lobe. The left atrium is enlarged. Severe aortic valve and mild mitral annular calcifications. Mild coronary artery calcifications. No pericardial effusion. Normal caliber of aorta. No thoracic adenopathy. Normal esophagus. Normal appearance of liver without focal lesions. Normal gallbladder. Splenic granulomas, otherwise normal spleen. Normal bilateral adrenals. Pancreas is normal. There is no biliary ductal dilatation. Kidneys without focal lesions, hydronephrosis or stones. Dense calcified atherosclerotic plaques of the abdominal aorta. No abdominal aortic aneurysm. Normal stomach. Normal appearance of small bowel without evidence of obstruction. Colonic diverticula without diverticulitis. There is a periumbilical hernia containing nonobstructed loops of small bowel with suggestion of an exposed bowel loop. Recommend correlation with physical exam. No free fluid or air in the abdomen or pelvis. Bladder is distended. Prostate is present. Subacute fracture of the lateral left 6th rib (900:71). No right rib fractures. Partially imaged proximal right humeral fracture. Degenerative changes in lumbar spine. No other acute fractures. Degenerative changes in the lumbar spine. Procedure Note Juan Pillai MD PhD - 06/21/2024 EXAMINATION: Computed tomography of the chest, abdomen and pelvis with intravenous contrast HISTORY: 73 year-old status post slipped on ice and fell right humeral fracture TECHNIQUE: Transaxial computed tomographic images of the chest, abdomen and pelvis were obtained with intravenous contrast according to the standard protocol after the uneventful administration of 93 mL Opti-Ray 350 intravenous contrast. COMPARISON: None FINDINGS: Bilateral left greater than right pleural effusions with adjacent atelectasis consolidative and groundglass opacities in a dependent distribution, which may represent a component of aspiration. Bibasilar groundglass with smooth septal line thickening in keeping with edema. No pneumothorax. There is a 7 mm metallic density in the left lower lobe. The left atrium is enlarged. Severe aortic valve and mild mitral annular calcifications. Mild coronary artery calcifications. No pericardial effusion. Normal caliber of aorta. No thoracic adenopathy. Normal esophagus. Normal appearance of liver without focal lesions. Normal gallbladder. Splenic granulomas, otherwise normal spleen. Normal bilateral adrenals. Pancreas is normal. There is no biliary ductal dilatation. Kidneys without focal lesions, hydronephrosis or stones. Dense calcified atherosclerotic plaques of the abdominal aorta. No abdominal aortic aneurysm. Normal stomach. Normal appearance of small bowel without evidence of obstruction. Colonic diverticula without diverticulitis. There is a periumbilical hernia containing nonobstructed loops of small bowel with suggestion of an exposed bowel loop. Recommend correlation with physical exam. No free fluid or air in the abdomen or pelvis. Bladder is distended. Prostate is present. Subacute fracture of the lateral left 6th rib (900:71). No right rib fractures. Partially imaged proximal right humeral fracture. Degenerative changes in lumbar spine. No other acute fractures. Degenerative changes in the lumbar spine. IMPRESSION: 1. No findings of acute trauma in the chest, abdomen or pelvis. 2. Lateral left 6th rib fracture is favored to be subacute. 3. Small bilateral pleural effusions with asymmetric left greater than right dependent groundglass and consolidative opacities that likely represent components of atelectasis, aspiration and pulmonary edema giving septal line thickening. 4. Right humeral fracture better evaluated on dedicated shoulder CT. 5. Periumbilical hernia containing an uncomplicated loop of bowel that comes in close approximation to the skin surface. Dictated by: Danielle Meza MD The radiology attending physician has personally reviewed this study, and had reviewed and/or edited this written report and agrees with it. Electronically signed by: Juan Pillai MD, PHD Tete Clark MD [facility] [place] PROCEDURES Final Result * CT Shoulder Right WO Contrast (06/21/2024 12:38 PM COIN PURSE FRAMER) Anatomical Region Laterality Modality Upper Extremities Right Computed Tomog tammy 06/21/2024 1:31 PM COIN PURSE FRAMER Impressions 06/21/2024 1:48 PM COIN PURSE FRAMER 1. Acute, comminuted Hill-Sachs fracture of the right humeral head involving the greater tuberosity. No evidence of a bony Bankart fracture. 2. Stranding/hematoma in the right axillary soft tissues. Dictated by: Cory Fregoso MD The radiology attending physician has personally reviewed this study, and had reviewed and/or edited this written report and agrees with it. Electronically signed by: Juan Pillai MD, PHD Narrative 06/21/2024 1:48 PM COIN PURSE FRAMER EXAMINATION: CT SHOULDER RIGHT WO CONTRAST HISTORY: Right shoulder dislocation status post reduction TECHNIQUE: Transaxial computed tomographic images of the right shoulder were obtained without intravenous contrast according to the standard protocol COMPARISON: Same day radiographs FINDINGS: There is an acute, comminuted extra-articular Hill-Sachs fracture of the right humeral head involving the greater tuberosity. The fracture fragments are mildly displaced. No evidence of a bony Bankart fracture. Glenohumeral alignment is normal. Acromioclavicular alignment is normal. 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 Rotator cuff muscle bulk is normal. There is some mild stranding/hematoma in the right axillary soft tissues. The imaged portions of the lungs are better evaluated on this contemporaneously performed CT of the chest. Procedure Note Juan Pillai MD PhD - 06/21/2024 EXAMINATION: CT SHOULDER RIGHT WO CONTRAST HISTORY: Right shoulder dislocation status post reduction TECHNIQUE: Transaxial computed tomographic images of the right shoulder were obtained without intravenous contrast according to the standard protocol COMPARISON: Same day radiographs FINDINGS: There is an acute, comminuted extra-articular Hill-Sachs fracture of the right humeral head involving the greater tuberosity. The fracture fragments are mildly displaced. No evidence of a bony Bankart fracture. Glenohumeral alignment is normal. Acromioclavicular alignment is normal. 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 Rotator cuff muscle bulk is normal. There is some mild stranding/hematoma in the right axillary soft tissues. The imaged portions of the lungs are better evaluated on this contemporaneously performed CT of the chest. IMPRESSION: 1. Acute, comminuted Hill-Sachs fracture of the right humeral head involving the greater tuberosity. No evidence of a bony Bankart fracture. 2. Stranding/hematoma in the right axillary soft tissues. Dictated by: Cory Fregoso MD The radiology attending physician has personally reviewed this study, and had reviewed and/or edited this written report and agrees with it. Electronically signed by: Juan Pillai MD, PHD Tete Clark MD IMG CT PROCEDURES Final Result * IN CRITICAL CARE ILL/INJURED PATIENT INIT 30-74 MIN (06/21/2024 12:19 PM COIN PURSE FRAMER) Narrative Nelson Yeager MD PhD - 06/21/2024 12:19 PM COIN PURSE FRAMER Nelson Yeager MD PhD 06/21/2024 3:18 PM Critical Care Performed by: Nelson Yeager MD PhD Authorized by: Nelson Yeager MD PhD Critical care provider statement: As reflected in the history, physical exam, orders, notes, and/or MDM, I was personally present while the patient was critically ill and provided critical care services for 36 minutes, excluding time involved in separately billable procedures. Critical care was necessary to treat or prevent imminent or life-threatening deterioration of the following condition(s): hypoxic respiratory failure pneumonia Critical care was time spent by me providing the following: continuous pulse oximetry, continuous telemetry, interpretation of bedside monitors, imaging, and arterial/venous lab draws and serial bedside patient exams supplemental oxygen empiric broad coverage antibiotics I provided emergent necessary critical care medicine services to this patient. I ordered and reviewed test results and/or imaging studies. I spent time discussing the management of this critically ill patient with consultants and the medical staff. I spent time discussing the management and therapeutic options for this critically ill patient with the patient themselves or with the appropriate designated surrogate decision-maker. I spent time documenting in the medical record. Nelson Yeager MD PhD IN CLINIC/BEDSIDE ORDERABLES Final Result * XR Shoulder Right 2 or More Views (06/21/2024 10:21 AM COIN PURSE FRAMER) Anatomical Region Laterality Modality Upper Extremities, Shoulder Right Comp uted Radiography 06/21/2024 10:3 2 AM COIN PURSE FRAMER Impressions 06/21/2024 10:32 AM COIN PURSE FRAMER Reduced right shoulder, with mildly displaced comminuted Hill-Sachs fracture Electronically signed by: Juanito Merritt M.D. Narrative 06/21/2024 10:32 AM COIN PURSE FRAMER EXAMINATION: XR SHOULDER RIGHT 2 OR MORE VIEWS HISTORY: Right shoulder fracture dislocation, status post reduction COMPARISON: Prereduction films 06/21/2024 FINDINGS: Interval reduction of the right shoulder, now in anatomic alignment. Demonstrated mildly displaced comminuted Hill-Sachs fracture with dominant fracture fragment involving the greater tuberosity. Procedure Note Juanito Merritt MD PhD - 06/21/2024 EXAMINATION: XR SHOULDER RIGHT 2 OR MORE VIEWS HISTORY: Right shoulder fracture dislocation, status post reduction COMPARISON: Prereduction films 06/21/2024 FINDINGS: Interval reduction of the right shoulder, now in anatomic alignment. Demonstrated mildly displaced comminuted Hill-Sachs fracture with dominant fracture fragment involving the greater tuberosity. IMPRESSION: Reduced right shoulder, with mildly displaced comminuted Hill-Sachs fracture Electronically signed by: Juanito Merritt M.D. Nelson Yeager MD PhD IMG XR PROCEDURES Final Result * eGFR (06/21/2024 8:55 AM COIN PURSE FRAMER) eGFR >90 >=60 mL/min/1. 73 m2 Comment: Interpretive Data Reference Interval Normal >/= 90 mL/min/1.73m2 Mildly decreased* 60 - 89 mL/min/1.73m2 Mildly to moderately decreased 45 - 59 mL/min/1.73m2 Moderately to severely decreased 30 - 44 mL/min/1.73m2 Severely decreased 15 - 29 mL/min/1.73m2 Kidney Failure < 15 mL/min/1.73m2 *Relative to young adult level Estimated glomerular filtration rate is determined by the 2020 CKD-EPI equation recommended by the National Kid[employer] (A Unifying Approach to GFR Estimation: Recommendations of the NKF-ASK Task Force on Reassessing the Inclusion of Race in Diagnosing Kidney Disease, JASN 2020). The CKD-EPI equation should not be used for patients with unstable renal function and has not been validated in children and those over 70. Current interpretive data was last reviewed 2021. Blood 06/21/2024 8:55 AM COIN PURSE FRAMER 06/21/2024 9:09 AM COIN PURSE FRAMER us Tete Clark MD LAB BLOOD ORDERABLES Final Res ult [facility] Department [place] [address] * (ABNORMAL) Pro B-type natriuretic peptide (06/21/2024 8:55 AM COIN PURSE FRAMER) NT-proBNP 1,234(H) <=300 pg/mL Comment: Interpretive Comments: A. Dyspnea in Acute Care Setting All Ages: < 300 pg/ml, acute heart failure unlikely. < 50 yrs: 300 - 450 pg/ml, further investigation warranted. > 450 pg/ml, acute heart failure likely. 50 - 74 yrs: 300 - 900 pg/ml, further investigation warranted. > 900 pg/ml, acute heart failure likely . > or = 75 yrs: 450 - 1800 pg/ml, further investigation warranted. > 1800 pg/ml, acute heart failure likely. B. Non-acute Setting < 75 yrs < 125 pg/ml, rules out heart failure. > or = 125 pg/ml, further investigation warranted. > or = 75 yrs < 450 pg/ml, rules out heart failure. > or = 450 pg/ml, further investigation warranted. - Knowledge of each individual patient's NT-proBNP range may be more useful than using similar cut-points for every patient. Please note that marked elevations in NT-proBNP levels may be observed in state other than Left Ventricular Congestive Failure, including: acute coronary syndromes, right heart strain/failure (including pulmonary embolism and cor pulmonale), critical illness, renal failure, as well as advanced age. - References: 1. Marlon BRAVO et.al. Eur Heart J. 2006:27:330-337. 2. John RW, Bob QUILES. J. AM Eddie Cardiol: Cardiovasc Imag. 2009;2: 216- 225. Interpretive Data Last Revised Date: 2017. Blood 06/21/2024 8:55 AM COIN PURSE FRAMER 06/21/2024 9:09 AM COIN PURSE FRAMER us Jaylin Kamara MD LAB BLOOD ORDERABLES Teetee keith Result [facility] Department [place] [address] * (ABNORMAL) Comprehensive metabolic panel (06/21/2024 8:55 AM COIN PURSE FRAMER) Pathologist [facility] Sodium 124(L) 135 - 145 mmol/L Potassium, pl 4.8 3.3 - 4.9 mmol/L [facility] Comment:Repeated and Verifie d Chloride 88(L) 97 - 110 mmol/L [facility] CO2 21(L) 22 - 32 mmol/L [facility] Anion gap 15 2 - 15 mmol/L [facility] BUN 8 6 - 25 mg/dL [facility] Creatinine 0.82 0.80 - 1.30 mg/dL [facility] Glucose 114 70 - 199 mg/dL [facility] Comment: Interpretive Data Fasting glucose >/= 126 mg/dl is diagnostic for diabetes. Fasting is defined as no caloric intake for at least 8 hours. Fasting glucose between 100 mg/dl to 125 mg/dl is diagnostic of prediabetes. In a patient with classic symptoms of hyperglycemia or hyperglycemic crisis, a random glucose >/= 200 mg/dl is diagnostic for diabetes. In the absence of unequivocal hyperglycemia, results should be confirmed by repeat testing. The classification and Diagnosis of Diabetes Diabetes Care 202; 46: S19-S40. Current interpretive data was last revised 2022. Calcium 8.9 8.5 - 10.3 mg/dL [facility] Bilirubin, total 0.7 0.1 - 1.2 mg/dL [facility] Protein, pl 7.1 6.5 - 8.5 g/dL [facility] Albumin 3.9 3.5 - 5.0 g/dL [facility] Alk phos 42 40 - 130 Units/L [facility] ALT 17 7 - 55 Units/L [facility] Comment:Reviewed AST 38 10 - 50 Units/L [facility] Comment:Reviewed Blood 06/21/2024 8:55 AM COIN [employer]SE [employer]ER 06/21/2024 9:09 AM [employer]ER Tete Clark MD LAB BLOOD ORDERABLES Final Res ult [facility] Department [place] [address] * XR Pelvis 1 or 2 Views (06/21/2024 8:51 AM COIN [employer]AMER) Anatomical Region Laterality Modality Body, Pelvis N/A Computed Radiogr aphy 06/21/2024 10:2 7 AM [employer]ER Narrative 06/21/2024 10:33 AM [employer]ER EXAMINATION: XR CHEST 1 VIEW, XR PELVIS 1 OR 2 VIEWS HISTORY: 73-year-old who presents after a fall. IMPRESSION : Chest: No prior for comparison. Rib fracture of the lateral left 4th rib. There is opacification of left lower lobe which may represent a posterior small layering pleural effusion or overlying soft tissue. No pneumothorax. Cardiomediastinal silhouette is normal. Pelvis: No acute fracture or dislocation. Femoral heads are in expected position. Dictated by: Colby Wyman M.D. The radiology attending physician has personally reviewed this study, and had reviewed and/or edited this written report and agrees with it. Electronically signed by: Juanito Merritt M.D. Procedure Note Juanito Merritt MD PhD - 06/21/2024 EXAMINATION: XR CHEST 1 VIEW, XR PELVIS 1 OR 2 VIEWS HISTORY: 73-year-old who presents after a fall. IMPRESSION : Chest: No prior for comparison. Rib fracture of the lateral left 4th rib. There is opacification of left lower lobe which may represent a posterior small layering pleural effusion or overlying soft tissue. No pneumothorax. Cardiomediastinal silhouette is normal. Pelvis: No acute fracture or dislocation. Femoral heads are in expected position. Dictated by: Colby Wyman M.D. The radiology attending physician has personally reviewed this study, and had reviewed and/or edited this written report and agrees with it. Electronically signed by: Juanito Merritt M.D. Tete Clark MD IMG XR PROCEDURES Final Result * XR Chest 1 Vw Portable (06/21/2024 8:51 AM CO[employer]ER) Anatomical Region Laterality Modality Body, Chest N/A Computed Radiogr aphy 06/21/2024 10:2 7 AM [employer]ER Narrative 06/21/2024 10:33 AM [employer]ER EXAMINATION: XR CHEST 1 VIEW, XR PELVIS 1 OR 2 VIEWS HISTORY: 73-year-old who presents after a fall. IMPRESSION : Chest: No prior for comparison. Rib fracture of the lateral left 4th rib. There is opacification of left lower lobe which may represent a posterior small layering pleural effusion or overlying soft tissue. No pneumothorax. Cardiomediastinal silhouette is normal. Pelvis: No acute fracture or dislocation. Femoral heads are in expected position. Dictated by: Colby Wyman M.D. The radiology attending physician has personally reviewed this study, and had reviewed and/or edited this written report and agrees with it. Electronically signed by: Juanito Merritt M.D. Procedure Note Juanito Merritt MD PhD - 06/21/2024 EXAMINATION: XR CHEST 1 VIEW, XR PELVIS 1 OR 2 VIEWS HISTORY: 73-year-old who presents after a fall. IMPRESSION : Chest: No prior for comparison. Rib fracture of the lateral left 4th rib. There is opacification of left lower lobe which may represent a posterior small layering pleural effusion or overlying soft tissue. No pneumothorax. Cardiomediastinal silhouette is normal. Pelvis: No acute fracture or dislocation. Femoral heads are in expected position. Dictated by: Colby Wyman M.D. The radiology attending physician has personally reviewed this study, and had reviewed and/or edited this written report and agrees with it. Electronically signed by: Juanito Merritt M.D. us Tete Clark MD IMG XR PROCEDURES Final Result * Check Sample (06/21/2024 8:28 AM COIN [employer]ER) ABO Rh A Positive [facility] OTHER 06/21/2024 8:28 AM CO[employer]ER 06/21/2024 8:35 AM COIN [employer]SE FR[employer]ER us Nelson Yeager MD PhD LAB BLOOD ORDERABL ES Final Result [facility] Department [place] [address] [facility] * ECG 12-LEAD (06/21/2024 7:42 AM COIN [employer]SE FRAMER) Narrative [facility] - 06/21/2024 7:42 AM COIN [employer]SE [employer]ER Nelson Yeager MD PhD 06/21/2024 7:43 AM ECG 12 lead Date/Time: 06/21/2024 7:42 AM Performed by: Nelson Yeager MD PhD Authorized by: Zana Kelley MD Rate: ECG rate: 96 ECG rate assessment: normal Rhythm: Rhythm: sinus rhythm Ectopy: Ectopy: none QRS: QRS axis: Normal QRS intervals: Normal Conduction: Conduction: normal ST segments: ST segments: Normal T waves: T waves: flattening Flattening: AVL Previous ECG: Previous ECG: Unavailable Interpretation: Interpretation: non-specific Recommended Follow-up: Recommended follow up: further workup in the ED Procedure Note Nelson Yeager MD PhD - 06/21/2024 7:42 AM CST Procedure ECG 12 lead Date/Time: 06/21/2024 7:42 AM Performed by: Nelson Yeaegr MD PhD Authorized by: Zana Kelley MD Rate: ECG rate: 96 ECG rate assessment: normal Rhythm: Rhythm: sinus rhythm Ectopy: Ectopy: none QRS: QRS axis: Normal QRS intervals: Normal Conduction: Conduction: normal ST segments: ST segments: Normal T waves: T waves: flattening Flattening: AVL Previous ECG: Previous ECG: Unavailable Interpretation: Interpretation: non-specific Recommended Follow-up: Recommended follow up: further workup in the ED Nelson Yeager MD PhD 06/21/24 0743 us Zana Kelley MD ECG ORDERABLES Final Result Performing Organization Address [facility]/ZIP Co de Phone Number [facility] * eGFR (06/21/2024 7:42 AM CO[employer]ER) eGFR >90 >=60 mL/min/1. 73 m2 Comment: Interpretive Data Reference Interval Normal >/= 90 mL/min/1.73m2 Mildly decreased* 60 - 89 mL/min/1.73m2 Mildly to moderately decreased 45 - 59 mL/min/1.73m2 Moderately to severely decreased 30 - 44 mL/min/1.73m2 Severely decreased 15 - 29 mL/min/1.73m2 Kidney Failure < 15 mL/min/1.73m2 *Relative to young adult level Estimated glomerular filtration rate is determined by the 2020 CKD-EPI equation recommended by the National Kidney Foundation (A Unifying Approach to GFR Estimation: Recommendations of the NKF-ASK Task Force on Reassessing the Inclusion of Race in Diagnosing Kidney Disease, JASN 2020). The CKD-EPI equation should not be used for patients with unstable renal function and has not been validated in children and those over 70. Current interpretive data was last reviewed 2021. Blood 06/21/2024 7:42 AM CO[employer]ER 06/21/2024 8:00 AM COIN [employer]SE FR[employer]ER us Zana Kelley MD LAB BLOOD ORDERABLES Final Re sult [facility] Department [place] [address] * (ABNORMAL) Differential, auto (06/21/2024 7:42 AM COIN [employer]ER) Neutrophil abs 11.3(H) 1.5 - 6.5 K/cumm Imm gran abs 0.1 0.0 - 0.1 K/cumm [facility] Lymphocyte abs 0.5(L) 0.8 - 3.3 K/cumm [facility] Monocyte abs 1.0(H) 0.2 - 0.8 K/cumm [facility] Eosinophil abs 0.6(H) 0.0 - 0.5 K/cumm [facility] Basophil abs 0.0 0.0 - 0.1 K/cumm [facility] Neutrophil pct 83.5 % [facility] Comment: Confirmed by smear review Interpretive Data Percent cell count reference ranges are not reported, since discordance with absolute values may lead to misinterpretation of CBC data. Current Interpretive Data was last revised on 2017. Imm gran pct 0.4 % [facility] Comment: Interpretive Data Percent cell count reference ranges are not reported, since discordance with absolute values may lead to misinterpretation of CBC data. Current Interpretive Data was last revised on 2017. Lymphocyte pct 3.9 % [facility] Comment: Interpretive Data Percent cell count reference ranges are not reported, since discordance with absolute values may lead to misinterpretation of CBC data. Current Interpretive Data was last revised on 2017. Monocyte pct 7.7 % [facility] Comment: Interpretive Data Percent cell count reference ranges are not reported, since discordance with absolute values may lead to misinterpretation of CBC data. Current Interpretive Data was last revised on 2017. Eosinophil pct 4.4 % [facility] Comment: Interpretive Data Percent cell count reference ranges are not reported, since discordance with absolute values may lead to misinterpretation of CBC data. Current Interpretive Data was last revised on 2017. Basophil pct 0.1 % [facility] Comment: Interpretive Data Percent cell count reference ranges are not reported, since discordance with absolute values may lead to misinterpretation of CBC data. Current Interpretive Data was last revised on 2017. Blood 06/21/2024 7:42 AM [employer]ER 06/21/2024 8:00 AM [employer]ER Zana Kelley MD LAB BLOOD ORDERABLES Final Re sult Performing Organization Address [facility] Co de Phone Number [facility] [place] [address] * (ABNORMAL) CBC with auto differential (06/21/2024 7:42 AM COIN [employer]SE FRAMER) [facility] WBC 13.5(H) 3.8 - 9.9 K/cumm Hgb 11.7(L) 13.0 - 17.5 g/dL [facility] Hct 32.8(L) 38.9 - 50.3 % [facility] Plt 201 150 - 400 K/cumm [facility] MPV 10.2 9.1 - 12.3 fL [facility] RBC 3.27(L) 4.30 - 5.80 M/cumm [facility] MCV 100.3(H) 81.3 - 96.4 fL [facility] MCH 35.8(H) 27.1 - 33.3 pg [facility] MCHC 35.7 32.3 - 35.7 g/dL [facility] RDW CV 11.5 11.1 - 14.9 % [facility] RDW SD 41.9 35.7 - 48.1 fL [facility] NRBC abs 0.00 0.00 - 0.01 K/cumm [facility] Blood 06/21/2024 7:42 AM [employer]ER 06/21/2024 8:00 AM CO[employer]ER Zana Kelley MD LAB BLOOD ORDERABLES Final Re sult Performing Organization Address City/[facility]/ZIP Co de Phone Number [facility] [place] [address] * aPTT (06/21/2024 7:42 AM COIN [employer] FRAMER) Pathologist [facility] aPTT 28 28 - 38 sec Comment: Interpretive Data Heparin therapeutic range: 66.0 - 100.0 seconds. Range based on correlation with therapeutic heparin activity range of 0.3 - 0.7 Units/mL. Current interpretive data was last revised on 2023. Blood 06/21/2024 7:42 AM [employer]ER 06/21/2024 8:04 AM COIN [employer]SE FR[employer]ER Result [facility] Tete Clark MD LAB BLOOD ORDERABLES Final Res ult Performing Organization Address [facility] de Phone Number [facility] [place] [address] * Protime-INR (06/21/2024 7:42 AM CO[employer]ER) PT 10.9 9.7 - 13.0 sec INR 1.01 0.90 - 1.20 [facility] Comment: Interpretive data Oral anticoagulant therapeutic ranges: Venous thromboembolism prophylaxis or treatment: 2.0-3.0 CARDIOLOGY Standard range: 2.0-3.0 High-intensity range: 2.5-3.5 Refer to indication-specific guidelines for appropriate target ranges for prosthetic heart valve replacement. Current interpretive data was last revised on 2019. Blood 06/21/2024 7:42 AM CO[employer]ER 06/21/2024 8:04 AM CO[employer]ER Result [facility] Tete Clark MD LAB BLOOD ORDERABLES Final Res ult Performing Organization Address [facility] [place] [address] * Type and screen (06/21/2024 7:42 AM CO[employer]ER) ABO Rh A Positive Kumar, indirect Negative [facility] Blood 06/21/2024 7:42 AM [employer]ER 06/21/2024 8:02 AM COIN [employer]SE FR[employer]ER Narrative [facility] - 06/21/2024 8:47 AM COIN [employer]SE FRAMER Has the patient had Daratumumab or Isatuximab in the past 6 months?->Unknown Result [facility] Zana Kelley MD LAB BLOOD BANK TEST ORDERABLE S Final Result Performing Organization Address [facility] Co de Phone Number [facility] [place] [address] * (ABNORMAL) Ethanol (06/21/2024 7:42 AM [employer]ER) Ethanol 31(H) <=10 mg/dL Comment: Hemolyzed; result may be falsely decreased Interpretive Data Legal limit of intoxication > or = 80 mg/dL Levels > or = 400 mg/dL are potentially TOXIC. Current interpretive data was last revised on 2018. Blood 06/21/2024 7:42 AM [employer]ER 06/21/2024 8:00 AM CO[employer]ER Tete Clark MD LAB BLOOD ORDERABLES Final Res ult Performing Organization Address [facility] Co de Phone Number [facility] [place] [address] * (ABNORMAL) Comprehensive metabolic panel (06/21/2024 7:42 AM CO[employer]ER) Sodium 125(L) 135 - 145 mmol/L Potassium, pl See Comment 3.3 - 4.9 mmol/L [facility] Comment:Credited; Hemolyzed Specimen Chloride 88(L) 97 - 110 mmol/L [facility] CO2 19(L) 22 - 32 mmol/L [facility] Anion gap 18(H) 2 - 15 mmol/L [facility] BUN 9 6 - 25 mg/dL [facility] Creatinine 0.78(L) 0.80 - 1.30 mg/dL [facility] Glucose 114 70 - 199 mg/dL [facility] Comment: Interpretive Data Fasting glucose >/= 126 mg/dl is diagnostic for diabetes. Fasting is defined as no caloric intake for at least 8 hours. Fasting glucose between 100 mg/dl to 125 mg/dl is diagnostic of prediabetes. In a patient with classic symptoms of hyperglycemia or hyperglycemic crisis, a random glucose >/= 200 mg/dl is diagnostic for diabetes. In the absence of unequivocal hyperglycemia, results should be confirmed by repeat testing. The classification and Diagnosis of Diabetes Diabetes Care 2021; 46: S19-S40. Current interpretive data was last revised 2022. Calcium 8.7 8.5 - 10.3 mg/dL [facility] Bilirubin, total 0.7 0.1 - 1.2 mg/dL [facility] Protein, pl 7.5 6.5 - 8.5 g/dL [facility] Albumin 3.9 3.5 - 5.0 g/dL [facility] Alk phos 34(L) 40 - 130 Units/L [facility] Comment:Hemolyzed; result ma y be falsely decreased ALT See Comment 7 - 55 Units/L [facility] Comment:Credited; Hemolyzed Specimen AST See Comment 10 - 50 Units/L [facility] Comment:Credited; Hemolyzed Specimen Blood 06/21/2024 7:42 AM CO[employer] FR[employer]ER 06/21/2024 8:00 AM CO[employer]SE FR[employer]ER Zana Kelley MD LAB BLOOD ORDERABLES Final Re sult [facility] Department [place] [address] * XR Humerus Right 2 or More Views (06/21/2024 7:23 AM COIN [employer] FRAMER) Anatomical Region Laterality Modality Upper Extremities, Upper Arm Right Com puted Radiography 06/21/2024 8:30 AM COIN [employer]SE FRAMER Impressions 06/21/2024 9:25 AM COIN [employer]SE FRAMER 1. Comminuted Hill-Sachs fracture of the right humerus with anterior and inferior displacement of the right humerus. Dictated by: Colby Wyman M.D. The radiology attending physician has personally reviewed this study, and had reviewed and/or edited this written report and agrees with it. Electronically signed by: Juanito Merritt M.D. Narrative 06/21/2024 9:25 AM COIN [employer]SE FRAMER EXAMINATION: XR SHOULDER RIGHT 2 OR MORE VIEWS, XR HUMERUS RIGHT 2 OR MORE VIEWS HISTORY: 73-year-old presenting after a fall after slipping on ice. Outside hospital found a right shoulder fracture and dislocation. FINDINGS: Right shoulder: Comparison with right shoulder radiograph dated 06/21/2024 at 3:44 AM. There is anterior and inferior displacement of the right humerus. There is a comminuted Hill-Sachs fracture with fracture fragment involving the greater tuberosity. Acromioclavicular joint space is preserved. Right humerus: Hill-Sachs fracture with fracture fragment along the greater tuberosity. No distal fracture of the right humerus. Procedure Note Juanito Merritt MD PhD - 06/21/2024 EXAMINATION: XR SHOULDER RIGHT 2 OR MORE VIEWS, XR HUMERUS RIGHT 2 OR MORE VIEWS HISTORY: 73-year-old presenting after a fall after slipping on ice. Outside hospital found a right shoulder fracture and dislocation. FINDINGS: Right shoulder: Comparison with right shoulder radiograph dated 06/21/2024 at 3:44 AM. There is anterior and inferior displacement of the right humerus. There is a comminuted Hill-Sachs fracture with fracture fragment involving the greater tuberosity. Acromioclavicular joint space is preserved. Right humerus: Hill-Sachs fracture with fracture fragment along the greater tuberosity. No distal fracture of the right humerus. IMPRESSION: 1. Comminuted Hill-Sachs fracture of the right humerus with anterior and inferior displacement of the right humerus. Dictated by: Colby Wyman M.D. The radiology attending physician has personally reviewed this study, and had reviewed and/or edited this written report and agrees with it. Electronically signed by: Juanito Merritt M.D. Zana Kelley MD IM XR PROCEDURES Final Resul t * XR Shoulder Right 2 or More Views (06/21/2024 7:23 AM COIN [employer]SE FRAMER) Anatomical Region Laterality Modality Upper Extremities, Shoulder Right Comp uted Radiography 06/21/2024 8:30 AM COIN [employer]SE FRAMER Impressions 06/21/2024 9:25 AM COIN [employer]SE FRAMER 1. Comminuted Hill-Sachs fracture of the right humerus with anterior and inferior displacement of the right humerus. Dictated by: Colby Wyman M.D. The radiology attending physician has personally reviewed this study, and had reviewed and/or edited this written report and agrees with it. Electronically signed by: Juanito Merritt M.D. Narrative 06/21/2024 9:25 AM COIN [employer]SE FRAMER EXAMINATION: XR SHOULDER RIGHT 2 OR MORE VIEWS, XR HUMERUS RIGHT 2 OR MORE VIEWS HISTORY: 73-year-old presenting after a fall after slipping on ice. Outside hospital found a right shoulder fracture and dislocation. FINDINGS: Right shoulder: Comparison with right shoulder radiograph dated 06/21/2024 at 3:44 AM. There is anterior and inferior displacement of the right humerus. There is a comminuted Hill-Sachs fracture with fracture fragment involving the greater tuberosity. Acromioclavicular joint space is preserved. Right humerus: Hill-Sachs fracture with fracture fragment along the greater tuberosity. No distal fracture of the right humerus. Procedure Note Juanito Merirtt MD PhD - 06/21/2024 EXAMINATION: XR SHOULDER RIGHT 2 OR MORE VIEWS, XR HUMERUS RIGHT 2 OR MORE VIEWS HISTORY: 73-year-old presenting after a fall after slipping on ice. Outside hospital found a right shoulder fracture and dislocation. FINDINGS: Right shoulder: Comparison with right shoulder radiograph dated 06/21/2024 at 3:44 AM. There is anterior and inferior displacement of the right humerus. There is a comminuted Hill-Sachs fracture with fracture fragment involving the greater tuberosity. Acromioclavicular joint space is preserved. Right humerus: Hill-Sachs fracture with fracture fragment along the greater tuberosity. No distal fracture of the right humerus. IMPRESSION: 1. Comminuted Hill-Sachs fracture of the right humerus with anterior and inferior displacement of the right humerus. Dictated by: Colby Wyman M.D. The radiology attending physician has personally reviewed this study, and had reviewed and/or edited this written report and agrees with it. Electronically signed by: Juanito Merritt M.D. us Zana Kelley MD IMG XR PROCEDURES Final Resul t * XR Outside Reference (06/21/2024 7:22 AM COIN [employer]SE FRAMER) Impressions [facility] - 06/21/2024 7:22 AM COIN PURSE FRAMER These images are for Reference purposes only and have not been reviewed by [facility]iology. There will be no report generated by a [facility] Radiologist. Narrative [facility] - 06/21/2024 7:22 AM COIN PURSE FRAMER EXAMINATION: Images For Reference Purposes Only Tete Clark MD IMG XR PROCEDURES Final Result [facility] * Procedural Sedation (06/21/2024 5:33 AM COIN [employer]SE FRAMER) Narrative Nelson Yeager MD PhD - 06/21/2024 5:33 AM COIN [employer]SE FRAMER Nelson Yeager MD PhD 07/14/2024 7:01 AM Procedural Sedation Date/Time: 06/21/2024 5:33 AM Performed by: Tete Clark MD Authorized by: Nelson Yeager MD PhD [place] Protocol: RN Notified of Procedure: yes Informed consent: Risks, benefits, alternatives discussed Patient's stated name/ matches armband: Yes Pre-sedation assessment: Intended level of sedation: Moderate (conscious sedation) NPO status caution: urgency dictates proceeding with non-ideal NPO status Planned medication(s): Ketamine and Propofol Immediate pre-procedure details: Reviewed: Vital signs, relevant labs/tests and current medications Procedure details (see MAR for exact dosages): Sedation start time: 06/21/2024 9:56 AM Preoxygenation: Nonrebreather mask Sedation: Ketamine and propofol Intra-procedure monitoring: Blood pressure monitoring, continuous capnometry, continuous pulse oximetry, frequent LOC assessments, frequent vital sign checks and deicer element winder machine Intra-procedure events: hypoxia Intra-procedure management: Airway repositioning Sedation end time (end of provider face to face time): 06/21/2024 10:10 AM Total sedation time (minutes): 14 Maximal depth of sedation: Moderate Post-procedure details: Patient tolerance: Tolerated well, no immediate complications Nelson Yeager MD PhD IN CLINIC/BEDSIDE ORDERABLES Final Result from Last 3 Months Insurance FOR LIFE Member Subscriber Plan / Payer (Ef fective 2024-Present) Name:Tommy Shah Relation to Subscriber:Self Name:Tommy Shah Payer ID:[id number] (NAIC) Group ID:Not on file Type: Address: [place] [id number] MEDICARE FOR LIFE MEDICARE Advance Directives For more information, please contact: [phone] * Full Code (Latest Code Status on File) Date Activated Date Inactivated Comments 06/21/2024 3:36 PM 06/22/2024 5:14 PM Care Teams Rn Immunology Relationship Specialty Start Date End Date Juanito Woodward MD [address] [place] [address] PCP - General 08/10/16 Juanito Woodward MD [address] [place] [address] 08/10/16
--- OUTSIDE RECORDS SUMMARY | 2024-07-22 08:05 | XMS_ITS | Clinical Summary ---
Author Organization [facility] Address [address] [place] [address] Care Team Providers Care Honey Extractor Name Role Phone Juanito Woodward MD Primary Care Provide r Juanito Woodward MD Unavailable Allergies No known active allergies Medications levoFLOXacin (LEVAQUIN) 750 mg tabletIndicatio ns:Pneumonia, Community Acquired Take 1 tablet (750 mg total) by mouth chucker before breakfast for 7 doses 7 tablet 07/01/19 25 Active Problems Problem Noted Date Diagnosed Date Humeral head fracture, right, closed, initial en counter 06/21/2024 Assessment & Plan (06/22/2024 7:30 AM SURVEILLANCE TECHNICIAN): -right shoulder dislocation and humeral head fracture s/p reduction by ortho in the ED -continue sling, RUE NWB -pain control with tylenol, ketorolac, and PRN oxycodone -ortho to set up outpatient follow up Acute respiratory failure 06/21/2024 Assessment & Plan (06/22/2024 7:30 AM SURVEILLANCE TECHNICIAN): -unclear etiology, suspect community acquired pneumonia, atelectasis, [...] 06/21/2024 Assessment & Plan (06/21/2024 4:05 PM SURVEILLANCE TECHNICIAN): -chronic per patient, unclear etiology -sodium tabs prescribed as outpatient, continue for now. Alcohol abuse, daily use 06/21/2024 Assessment & Plan (06/22/2024 7:30 AM SURVEILLANCE TECHNICIAN): -reportedly drinks 4-5 beers/day. Denies history of withdrawal or seizures in the past -ETOH level 31 in ED -monitor for signs of withdrawal, CIWA protocol HTN (hypertension) 06/21/2024 Assessment & Plan (06/21/2024 4:02 PM SURVEILLANCE TECHNICIAN): -continue amlodipine and losartan Encounters Date Type Department Care Team Description 06/23/2024 Telephone [facility] Orthopaedic Surgery [facility] Medicine 6th [place] [address] [place] [address] Sushant Andrew MD 06/21/2024 6:27 AM SURVEILLANCE TECHNICIAN - 06/22/2024 1:09 PM SURVEILLANCE TECHNICIAN Hospital Encounter [facility] [address] [place] [address] Zana Kelley MD Watson, Nelson Eason MD PhD Jose A, MD Anh Hyde, MD Ngoc Wilkerson Marin H., MD Mok, MD Irasema Mora Praveen Raju, MD Humeral head fracture, right, closed, initial encounter (Primary Dx); CAP (community acquired pneumonia); Hyponatremia; Hypoxia; Acute respiratory failure with hypoxia (HCC) Discharge Disposition: Discharge to home or self care from Last 3 Months Social History Tobacco Use Types Packs/Day Years [...] on file Legal Sex Male 1:55 AM SURVEILLANCE TECHNICIAN Gender Identity Not on file Sexual Orientation Not on file Obstetrics History Last Filed Vital Signs Vital Sign Reading Time Taken Comments Blood Pressure 119/69 06/22/2024 12:00 PM SURVEILLANCE TECHNICIAN Pulse 84 06/22/2024 12:00 PM SURVEILLANCE TECHNICIAN Temperature 36.8 C (98.2 F) 06/22/2024 8:00 AM SURVEILLANCE TECHNICIAN Respiratory Rate 22 06/22/2024 12:0 0 PM SURVEILLANCE TECHNICIAN Oxygen Saturation 94% 06/22/2024 12: 00 PM SURVEILLANCE TECHNICIAN Inhaled Oxygen Concentration - - Weight 98.3 kg (216 lb 11.4 oz) 06/21/2024 3:41 PM SURVEILLANCE TECHNICIAN Height 185.4 cm (6' 1 ) 06/21/2024 3:41 PM SURVEILLANCE TECHNICIAN Body Mass Index 28.59 06/21/2024 3:41 PM SURVEILLANCE TECHNICIAN Plan of Treatment Health Maintenance Due Date Last Done Comments Colon Cancer Screening-Colonoscopy 1950 Depression Screening 1950 DTaP/Tdap/Td Vaccine (1 - Tdap) 1961 Hepatitis B Screening 1968 Pneumococcal vaccine 65+ (1 of 1 - PCV) 2000 Well Visit 65+ 08/10/2015 Covid-19 Vaccine (5 - 2023-2 5 season) 2023 03/15/2023, 02/16/2022, 03/18/2021, Additional history exists Influenza Vaccine (#1) 2023 , 02/16/2022, 03/18/2021, Additional history exists Fall Risk Assessment 06/22/2025 06/22/2024 Zoster Vaccine Completed 08/07/2020, 04/30, 01/26/2014 Abdominal Aortic Aneurysm (A AA) Screen Completed 06/21/2024 Hepatitis C Screening Completed 06/22/2024 Procedures Procedure Name Priority Date/Time Associated Diagnosis Comments EGFR Routine 06/22/2024 5:59 AM SURVEILLANCE TECHNICIAN DIFFERENTIAL AUTO Routine 06/22/2024 5:5 9 AM SURVEILLANCE TECHNICIAN PHOSPHORUS Routine 06/22/2024 5:59 AM SURVEILLANCE TECHNICIAN MAGNESIUM Routine 06/22/2024 5:59 AM SURVEILLANCE TECHNICIAN CBC WITH AUTO DIFFERENTIAL Routine 06/22/2024 5:59 AM SURVEILLANCE TECHNICIAN BASIC METABOLIC PANEL Routine 06/22/2024 5:59 AM SURVEILLANCE TECHNICIAN TROPONIN I HIGH-SENSITIVITY Routine 06/22/2024 5:59 AM SURVEILLANCE TECHNICIAN RPR Routine 06/22/2024 5:59 AM SURVEILLANCE TECHNICIAN HEPATITIS C ANTIBODY Routine 06/22/2024 5:59 AM SURVEILLANCE TECHNICIAN HEPATITIS B SURFACE ANTIGEN Routine 06/22/2024 5:59 AM SURVEILLANCE TECHNICIAN HIV 1/2 ANTIBODY PLUS P24 ANTIGEN Routine 06/22/2024 5:59 AM SURVEILLANCE TECHNICIAN URINALYSIS, MICROSCOPIC ONLY Routine 06/21/2024 4:33 PM SURVEILLANCE TECHNICIAN URINALYSIS AND REFLEX TO MICROSCOPIC AND CULTURE Routine 06/21/2024 4:33 PM SURVEILLANCE TECHNICIAN TROPONIN I HIGH-SENSITIVITY STAT 06/21/2024 3:57 PM SURVEILLANCE TECHNICIAN BLOOD GAS, ARTERIAL STAT 06/21/2024 3 :57 PM SURVEILLANCE TECHNICIAN BLOOD CULTURE Routine 06/21/2024 3:57 PM SURVEILLANCE TECHNICIAN BLOOD CULTURE Routine 06/21/2024 3:57 PM SURVEILLANCE TECHNICIAN SODIUM, URINE, RANDOM Routine 06/21/2024 1:19 PM SURVEILLANCE TECHNICIAN OSMOLALITY, URINE Routine 06/21/2024 1:1 9 PM SURVEILLANCE TECHNICIAN OSMOLALITY, BLOOD Routine 06/21/2024 1:0 3 PM SURVEILLANCE TECHNICIAN RESPIRATORY PATHOGEN PANEL STAT 06/21/2024 1:[address] CHEST ABDOMEN PELVIS W CONTRAST ED 06/21/2024 12:[address] RECON THORACIC AND LUMBAR SPINE W CONTRAST ED 06/21/2024 12:[address] SHOULDER RIGHT WO CONTRAST ED 06/21/2024 12:38 PM SURVEILLANCE TECHNICIAN ME CRITICAL CARE ILL/INJURED PATIENT INIT 30-74 MIN Routine 06/21/2024 12:19 PM SURVEILLANCE TECHNICIAN XR SHOULDER RIGHT 2 OR MORE VIEWS ED Urgent/IP Urgent 06/21/2024 10:21 AM SURVEILLANCE TECHNICIAN PRO B-TYPE NATRIURETIC PEPTIDE STAT 06/21/2024 8:55 AM SURVEILLANCE TECHNICIAN EGFR STAT 06/21/2024 8:55 AM SURVEILLANCE TECHNICIAN COMPREHENSIVE METABOLIC PANEL STAT 06/21/2024 8:55 AM SURVEILLANCE TECHNICIAN XR PELVIS 1 OR 2 VIEWS ED 06/21/2024 8:51 AM SURVEILLANCE TECHNICIAN XR CHEST 1 VIEW ED 06/21/2024 8:51 AM SURVEILLANCE TECHNICIAN B CHECK SAMPLE STAT 06/21/2024 8:28 AM SURVEILLANCE TECHNICIAN ECG 12-LEAD STAT 06/21/2024 7:42 AM SURVEILLANCE TECHNICIAN EGFR STAT 06/21/2024 7:42 AM SURVEILLANCE TECHNICIAN DIFFERENTIAL AUTO STAT 06/21/2024 7:4 2 AM SURVEILLANCE TECHNICIAN ETHANOL STAT 06/21/2024 7:42 AM SURVEILLANCE TECHNICIAN APTT STAT 06/21/2024 7:42 AM SURVEILLANCE TECHNICIAN PROTIME-INR STAT 06/21/2024 7:42 AM SURVEILLANCE TECHNICIAN TYPE AND SCREEN STAT 06/21/2024 7:42 AM SURVEILLANCE TECHNICIAN COMPREHENSIVE METABOLIC PANEL STAT 06/21/2024 7:42 AM SURVEILLANCE TECHNICIAN CBC WITH AUTO DIFFERENTIAL STAT 06/21/2024 7:42 AM SURVEILLANCE TECHNICIAN XR HUMERUS RIGHT 2 OR MORE VIEWS ED 06/21/2024 7:23 AM SURVEILLANCE TECHNICIAN XR SHOULDER RIGHT 2 OR MORE VIEWS ED 06/21/2024 7:23 AM SURVEILLANCE TECHNICIAN XR TRANSFER OF OUTSIDE FILMS Routine 06/21/2024 7:22 AM SURVEILLANCE TECHNICIAN ED MODERATE SEDATION Routine 06/21/2024 5:33 AM SURVEILLANCE TECHNICIAN from Last 3 Months Results * (ABNORMAL) Troponin I high-sensitivity (06/22/2024 5:59 AM SURVEILLANCE TECHNICIAN) Trop I hs 37(H) <=35 ng/L Comment: Interpretive Data For further hscTnI resources including the diagnostic algorithm and an aid in interpretation, copy and paste this link: https://[email or web address]/show/[email or web address] Current Interpretive Data last revised 2019. Blood 06/22/2024 5:59 AM SURVEILLANCE TECHNICIAN 06/22/2024 6:19 AM SURVEILLANCE TECHNICIAN Aide Duffy NP LAB BLOOD ORDERABLES F inal Result [facility] Department [place] [address] * eGFR (06/22/2024 5:59 AM SURVEILLANCE TECHNICIAN) eGFR 88 >=60 mL/min/1. 73 m2 Comment: [...] last reviewed 2021. Blood 06/22/2024 5:59 AM SURVEILLANCE TECHNICIAN 06/22/2024 6:19 AM SURVEILLANCE TECHNICIAN us Jaylin Kamara MD LAB BLOOD ORDERABLES Teetee keith Result [facility] Department [place] [address] * (ABNORMAL) Differential, auto (06/22/2024 5:59 AM SURVEILLANCE TECHNICIAN) Neutrophil abs 11.4(H) 1.5 - 6.5 K/cumm Imm gran abs 0.1 0.0 - 0.1 K/cumm [facility] Lymphocyte abs 0.8 0.8 - 3.3 K/cumm [facility] Monocyte abs 1.6(H) 0.2 - 0.8 K/cumm [facility] Eosinophil abs 0.0 0.0 - 0.5 K/cumm [facility] Basophil abs 0.0 0.0 - 0.1 K/cumm [facility] Neutrophil pct 82.4 % [facility] Comment: Interpretive Data Percent cell count reference ranges are not reported, since discordance with absolute values may lead to misinterpretation of CBC data. Current Interpretive Data was last revised on 2017. Imm gran pct 0.4 % [facility] Comment: Interpretive Data Percent cell count reference ranges are not reported, since discordance with absolute values may lead to misinterpretation of CBC data. Current Interpretive Data was last revised on 2017. Lymphocyte pct 5.6 % [facility] Comment: Interpretive Data Percent cell count reference ranges are not reported, since discordance with absolute values may lead to misinterpretation of CBC data. Current Interpretive Data was last revised on 2017. Monocyte pct 11.4 % [facility] Comment: Interpretive Data Percent cell count reference ranges are not reported, since discordance with absolute values may lead to misinterpretation of CBC data. Current Interpretive Data was last revised on 2017. Eosinophil pct 0.1 % [facility] Comment: Interpretive Data Percent cell count reference ranges are not reported, since discordance with absolute values may lead to misinterpretation of CBC data. Current Interpretive Data was last revised on 2017. Basophil pct 0.1 % [facility] Comment: Interpretive Data Percent cell count reference ranges are not reported, since discordance with absolute values may lead to misinterpretation of CBC data. Current Interpretive Data was last revised on 2017. Blood 06/22/2024 5:59 AM SURVEILLANCE TECHNICIAN 06/22/2024 6:19 AM SURVEILLANCE TECHNICIAN us Aide Duffy BARREL INSPECTOR LAB BLOOD ORDERABLES F inal Result [facility] Department [place] [address] * HIV 1/2 Antibody plus p24 Antigen Blood (06/22/2024 5:59 AM SURVEILLANCE TECHNICIAN) HIV 1/2 ab + p24 ag Nonreactive Nonreactive Comment:Nonreactive for HIV- 1 antigen and HIV-1/HIV-2 antibodies. No laboratory evidence of HIV infection. If acute HIV infection is suspected, consider testing for HIV-1 RNA. Current interpretive data was last revised on 21. Blood 06/22/2024 5:59 AM SURVEILLANCE TECHNICIAN 06/22/2024 6:19 AM SURVEILLANCE TECHNICIAN us Clovis Villalpando MD LAB MICROBIOLOGY - GENERA L ORDERABLES Final Result Performing Organization Address [facility] Co de Phone Number [facility] Department [place] [address] * (ABNORMAL) CBC with auto differential (06/22/2024 5:59 AM SURVEILLANCE TECHNICIAN) Pathologist [facility] WBC 13.9(H) 3.8 - 9.9 K/cumm Hgb 12.4(L) 13.0 - 17.5 g/dL [facility] Hct 34.6(L) 38.9 - 50.3 % [facility] Plt 189 150 - 400 K/cumm [facility] MPV 10.7 9.1 - 12.3 fL [facility] RBC 3.46(L) 4.30 - 5.80 M/cumm [facility] MCV 100.0(H) 81.3 - 96.4 fL [facility] MCH 35.8(H) 27.1 - 33.3 pg [facility] MCHC 35.8(H) 32.3 - 35.7 g/dL [facility] RDW CV 11.7 11.1 - 14.9 % [facility] RDW SD 42.6 35.7 - 48.1 fL [facility] NRBC abs 0.00 0.00 - 0.01 K/cumm [facility] Blood 06/22/2024 5:59 AM SURVEILLANCE TECHNICIAN 06/22/2024 6:19 AM SURVEILLANCE TECHNICIAN us Aide Duffy NP LAB BLOOD ORDERABLES F inal Result Performing Organization Address City/[facility]/ZIP Co de Phone Number [facility] Department [place] [address] * Hepatitis C antibody Blood (06/22/2024 5:59 AM SURVEILLANCE TECHNICIAN) Pathologist [facility] Hep C Ab Nonreactive Nonreactive Comment:Antibodies to HCV no t detected. Does NOT exclude the possibility of recent exposure to HCV. Current interpretive data was last revised on 21 Blood 06/22/2024 5:59 AM SURVEILLANCE TECHNICIAN 06/22/2024 6:19 AM SURVEILLANCE TECHNICIAN us Clovis Villalpando MD LAB MICROBIOLOGY - GENERA L ORDERABLES Final Result Performing Organization Address [facility] de Phone Number [facility] [place] [address] * RPR Blood (06/22/2024 5:59 AM SURVEILLANCE TECHNICIAN) RPR Nonreactive Nonreactive Blood 06/22/2024 5:59 AM SURVEILLANCE TECHNICIAN 06/22/2024 6:19 AM SURVEILLANCE TECHNICIAN us Clovis Villalpando MD LAB MICROBIOLOGY - GENERA L ORDERABLES Final Result Performing Organization Address [facility] de Phone Number [facility] Department [place] [address] * Hepatitis B Surface Antigen Blood (06/22/2024 5:59 AM SURVEILLANCE TECHNICIAN) HepBsAg Nonreactive Nonreactive Blood 06/22/2024 5:59 AM SURVEILLANCE TECHNICIAN 06/22/2024 6:19 AM SURVEILLANCE TECHNICIAN us Clovis Villalpando MD LAB MICROBIOLOGY - GENERA L ORDERABLES Final Result Performing Organization Address [facility] de Phone Number [facility] [place] [address] * Phosphorus (06/22/2024 5:59 AM SURVEILLANCE TECHNICIAN) Phosphorus, pl 4.0 2.3 - 4.5 mg/dL Blood 06/22/2024 5:59 AM SURVEILLANCE TECHNICIAN 06/22/2024 6:19 AM SURVEILLANCE TECHNICIAN us Aide Duffy NP LAB BLOOD ORDERABLES F inal Result Performing Organization Address [facility]/ZIP Co de Phone Number [facility] Department [place] [address] * Magnesium (06/22/2024 5:59 AM SURVEILLANCE TECHNICIAN) [facility] Magnesium 1.9 1.4 - 2.5 mg/dL Blood 06/22/2024 5:59 AM SURVEILLANCE TECHNICIAN 06/22/2024 6:19 AM SURVEILLANCE TECHNICIAN Aide Duffy BARREL INSPECTOR LAB BLOOD ORDERABLES F inal Result [facility] [place] [address] * (ABNORMAL) Basic metabolic panel (06/22/2024 5:59 AM SURVEILLANCE TECHNICIAN) [facility] Sodium 127(L) 135 - 145 mmol/L Potassium, pl 4.7 3.3 - 4.9 mmol/L [facility] Chloride 89(L) 97 - 110 mmol/L [facility] CO2 27 22 - 32 mmol/L [facility] Anion gap 11 2 - 15 mmol/L [facility] BUN 17 6 - 25 mg/dL [facility] Creatinine 0.92 0.80 - 1.30 mg/dL [facility] Glucose 138 70 - 199 mg/dL [facility] Comment: Interpretive Data Fasting glucose >/= 126 [...] 2022. Calcium 8.8 8.5 - 10.3 mg/dL [facility] Blood 06/22/2024 5:59 AM SURVEILLANCE TECHNICIAN 06/22/2024 6:19 AM SURVEILLANCE TECHNICIAN us Jaylin Kamara MD LAB BLOOD ORDERABLES Teetee l Result [facility] Department [place] [address] * (ABNORMAL) Urinalysis reflex to microscopic and culture Urine (06/21/2024 4:33 PM SURVEILLANCE TECHNICIAN) Color, ur Yellow Yellow Clarity, ur Clear Clear [facility] Specific gravity, ur 1.027 1.003 - 1.030 [facility] pH, urine 6.0 [facility] Comment: Interpretive Data U rine pH is affected by diet, medications, systemic acid-base disturbances, and renal tubular function. pH may affect urinary stone formation. For example, urine pH below 6.0 may help reduce the tendency for calcium phosphate stones and pH greater than 6.0 may reduce the tendency for uric acid stone formation. Source: [facility] [place] Current Interpretive Data was last revised on 2017 Protein, ur ql 1+(A) Negative [facility] Glucose, ur ql Negative Negative [facility] Ketones, ur 1+(A) Negative [facility] Bilirubin, ur Negative Negative [facility] Blood, ur 1+(A) Negative [facility] Urobilinogen, ur <2.0 <2.0 mg/dL [facility] Nitrite, ur Negative Negative [facility] Leukocyte esterase, ur Trace(A) Negative [facility] UA reflex comment Reflex to microscopic UA will be performed. [facility] Urine 06/21/2024 4:33 PM SURVEILLANCE TECHNICIAN 06/21/2024 4:43 PM SURVEILLANCE TECHNICIAN us Aide Duffy NP LAB MICROBIOLOGY - GEN ERAL ORDERABLES Final Result [facility] Department [place] [address] * (ABNORMAL) Urinalysis, microscopic only (06/21/2024 4:33 PM SURVEILLANCE TECHNICIAN) WBC, ur 0-5 0 - 5 /HPF RBC, ur 3-5(A) 0 - 2 /HPF [facility] Epithelial cells, squamous, ur 1-5 0 - 5 /HPF [facility] Mucous, ur Present(A) [facility] Amorphous crystals, ur 2+(A) [facility] Hyaline casts, ur 21-50(A) 0 - 10 /LPF [facility] Culture Reflex Comment Reflex conditions for urine culture (WBC >10) not met. [facility] Urine 06/21/2024 4:33 PM SURVEILLANCE TECHNICIAN 06/21/2024 4:43 PM SURVEILLANCE TECHNICIAN Aide Duffy BARREL INSPECTOR LAB URINE ORDERABLES F inal Result Performing Organization Address [facility] Co de Phone Number [facility] Department [place] [address] * (ABNORMAL) Troponin I high-sensitivity (06/21/2024 3:57 PM SURVEILLANCE TECHNICIAN) Trop I hs 64(H) <=35 ng/L Comment: Interpretive Data For further hscTnI resources including the diagnostic algorithm and an aid in interpretation, copy and paste this link: https://[email or web address].org/show/[email or web address] Current Interpretive Data last revised 2019. Blood 06/21/2024 3:57 PM SURVEILLANCE TECHNICIAN 06/21/2024 4:22 PM SURVEILLANCE TECHNICIAN Aide Duffy BARREL INSPECTOR LAB BLOOD ORDERABLES F inal Result Performing Organization Address [facility]/ZIP Co de Phone Number [facility] Department [place] [address] * Blood culture Blood (06/21/2024 3:57 PM SURVEILLANCE TECHNICIAN) Report Final Report: No growth Blood 06/21/2024 3:57 PM SURVEILLANCE TECHNICIAN 06/21/2024 4:18 PM SURVEILLANCE TECHNICIAN Narrative [facility] - 06/26/2024 7:01 AM SURVEILLANCE TECHNICIAN From a different site than #1. Collection->Peripheral [...] performance characteristics have been verified by the [facility] Microbiology Laboratory. For questions about this culture, contact the Microbiology Laboratory at [phone]. Interpretive data was last revised on 24. Aide Duffy NP LAB MICROBIOLOGY - GEN ERAL ORDERABLES Final Result [facility] Department [place] [address] * Blood culture Blood (06/21/2024 3:57 PM SURVEILLANCE TECHNICIAN) Report Final Report: No growth Blood 06/21/2024 3:57 PM SURVEILLANCE TECHNICIAN 06/21/2024 4:18 PM SURVEILLANCE TECHNICIAN Narrative [facility] - 06/26/2024 7:01 AM SURVEILLANCE TECHNICIAN Collection->Peripheral 1. Blood cultures are incubated for [...] performance characteristics have been verified by the [facility] Microbiology Laboratory. For questions about this culture, contact the Microbiology Laboratory at [phone]. Interpretive data was last revised on 24. Aide Duffy NP LAB MICROBIOLOGY - GEN ERAL ORDERABLES Final Result Performing Organization Address [facility] Co de Phone Number [facility] [place] [address] * (ABNORMAL) Blood gas, arterial (06/21/2024 3:57 PM SURVEILLANCE TECHNICIAN) pH, Art 7.43 7.35 - 7.45 PCO2, Arterial 34(L) 35 - 45 mmHg [facility] PO2, Arterial 132(H) 83 - 108 mmHg [facility] HCO3 Art (Calculated) 23 20 - 30 mmol/L [facility] BE, art -1 mmol/L [facility] Comment: Interpretive Data No Reference Range Established Current Interpretive Data was last revised on 2017 O2 Sat Art (Measured) 99(H) 90 - 95 % [facility] Blood 06/21/2024 3:57 PM SURVEILLANCE TECHNICIAN 06/21/2024 4:14 PM SURVEILLANCE TECHNICIAN Aide Duffy NP LAB BLOOD ORDERABLES F inal Result Performing Organization Address [facility] Co de Phone Number [facility] [place] [address] * Sodium, urine, random (06/21/2024 1:19 PM SURVEILLANCE TECHNICIAN) Sodium, ur 45 mmol/L Comment: Interpretive Data No reference range established. Current interpretive data was last revised 2018. Urine 06/21/2024 1:19 PM SURVEILLANCE TECHNICIAN 06/21/2024 3:21 PM SURVEILLANCE TECHNICIAN Result [facility] Jaylin Kamara MD LAB URINE ORDERABLES Teetee l Result Performing Organization Address City/[facility]/ZIP Co de Phone Number [facility] Department [place] [address] * Osmolality, urine (06/21/2024 1:19 PM SURVEILLANCE TECHNICIAN) [facility] Osmo, ur 420 mOsm/kg Urine 06/21/2024 1:19 PM SURVEILLANCE TECHNICIAN 06/21/2024 3:21 PM SURVEILLANCE TECHNICIAN Result [facility] Jaylin Kamara MD LAB URINE ORDERABLES Teetee l Result Performing Organization Address [facility] de Phone Number [facility] Department [place] [address] * Respiratory pathogen panel Nasopharyngeal (06/21/2024 1:03 PM SURVEILLANCE TECHNICIAN) [facility] Influenza A RNA Not Detected Not Detected Influenza B RNA Not Detected Not Detected [facility] RSV RNA Not Detected Not Detected [facility] COVID-19 RNA Not Detected Not Detected [facility] Coronavirus 229E RNA Not Detected Not Detected [facility] Coronavirus HKU1 RNA Not Detected Not Detected [facility] Coronavirus NL63 RNA Not Detected Not Detected [facility] Coronavirus OC43 RNA Not Detected Not Detected [facility] Adenovirus DNA Not Detected Not Detected [facility] Metapneumovirus RNA Not Detected Not Detected [facility] Rhinovirus/Enterov irus RNA Not Detected Not Detected [facility] Parainfluenza 1 RNA Not Detected Not Detected [facility] Parainfluenza 2 RNA Not Detected Not Detected [facility] Parainfluenza 3 RNA Not Detected Not Detected [facility] Parainfluenza 4 RNA Not Detected Not Detected [facility] B. pertussis DNA Not Detected Not Detected [facility] B. parapertussis DNA Not Detected Not Detected [facility] C. pneumoniae DNA Not Detected Not Detected [facility] M. pneumoniae DNA Not Detected Not Detected [facility] Nasopharyngeal 06/21/2024 1: 03 PM SURVEILLANCE TECHNICIAN 06/21/2024 1:13 PM SURVEILLANCE TECHNICIAN Narrative [facility] - 06/21/2024 2:10 PM SURVEILLANCE TECHNICIAN Is the Patient experiencing symptoms consistent with COVID?->Unknown Surveillance testing for transplant patient?->No Interpretive Data The [employer] FilmArray Respiratory Panel (RP2.1) assay is a [...] assay has FDA clearance for testing of BARREL INSPECTOR swabs. The performance of additional specimen types has been assessed by the performing laboratory. The performance characteristics of this assay have been determined by [facility] Molecular Infectious Disease Laboratory. Current interpretive data was last revised on 22. Jaylin Kamara MD LAB MICROBIOLOGY - GENERA L ORDERABLES Final Result Performing Organization Address [facility] Co de Phone Number [facility] Department [place] [address] * (ABNORMAL) Osmolality, blood (06/21/2024 1:03 PM SURVEILLANCE TECHNICIAN) Osmo 270(L) 275 - 300 mOsm/kg Blood 06/21/2024 1:03 PM SURVEILLANCE TECHNICIAN 06/21/2024 1:19 PM SURVEILLANCE TECHNICIAN Jaylin Kmaara MD LAB BLOOD ORDERABLES Teetee l Result Performing Organization Address [facility] Co de Phone Number [facility] [place] [address] * CT Recon Thoracic and Lumbar Spine W Contrast (C) (06/21/2024 12:38 PM SURVEILLANCE TECHNICIAN) Anatomical Region Laterality Modality Spine N/A Computed Tomogra phy 06/21/2024 1:25 PM SURVEILLANCE TECHNICIAN Impressions 06/21/2024 1:40 PM SURVEILLANCE TECHNICIAN No evidence of acute fracture in the thoracic or lumbar spine. Dictated by: Cory Fregoso MD The radiology attending physician has personally reviewed this study, and had reviewed and/or edited this written report and agrees with it. Electronically signed by: Jose Carver M.D, PHD Narrative 06/21/2024 1:40 PM SURVEILLANCE TECHNICIAN EXAMINATION: 1. CT of the thoracic spine [...] chest, abdomen, and pelvis. Procedure Note Jose Cavrer MD PhD - 06/21/2024 EXAMINATION: 1. CT [...] Jose Carver M.D, PHD Tete Clark MD IMG CT PROCEDURES Final Result * CT Chest Abdomen Pelvis W Contrast (06/21/2024 12:38 PM SURVEILLANCE TECHNICIAN) Anatomical Region Laterality Modality Body N/A Computed Tomogra phy 06/21/2024 1:30 PM SURVEILLANCE TECHNICIAN Impressions 06/21/2024 2:02 PM SURVEILLANCE TECHNICIAN 1. No findings of acute trauma in [...] Pillai MD, PHD Narrative 06/21/2024 2:02 PM SURVEILLANCE TECHNICIAN EXAMINATION: Computed tomography of the chest, abdomen [...] MD IMG CT PROCEDURES Final Result * CT Shoulder Right WO Contrast (06/21/2024 12:38 PM SURVEILLANCE TECHNICIAN) Anatomical Region Laterality Modality Upper Extremities Right Computed Tomog tammy 06/21/2024 1:31 PM SURVEILLANCE TECHNICIAN Impressions 06/21/2024 1:48 PM SURVEILLANCE TECHNICIAN 1. Acute, comminuted Hill-Sachs fracture of the [...] Pillai MD, PHD Narrative 06/21/2024 1:48 PM SURVEILLANCE TECHNICIAN EXAMINATION: CT SHOULDER RIGHT WO CONTRAST HISTORY: [...] MD IMG CT PROCEDURES Final Result * ME CRITICAL CARE ILL/INJURED PATIENT INIT 30-74 MIN (06/21/2024 12:19 PM SURVEILLANCE TECHNICIAN) Nelson Lozoya MD PhD - 06/21/2024 12:19 PM SURVEILLANCE TECHNICIAN Nelson Yeager MD PhD 06/21/2024 3:18 PM [...] spent time documenting in the medical record. us Nelson Yeager MD PhD IN CLINIC/BEDSIDE ORDERABLES Final Result * XR Shoulder Right 2 or More Views (06/21/2024 10:21 AM SURVEILLANCE TECHNICIAN) Anatomical Region Laterality Modality Upper Extremities, Shoulder Right Comp uted Radiography 06/21/2024 10:3 2 AM SURVEILLANCE TECHNICIAN Impressions 06/21/2024 10:32 AM SURVEILLANCE TECHNICIAN Reduced right shoulder, with mildly displaced comminuted Hill-Sachs fracture Electronically signed by: Juanito Merritt M.D. Narrative 06/21/2024 10:32 AM SURVEILLANCE TECHNICIAN EXAMINATION: XR SHOULDER RIGHT 2 OR MORE VIEWS HISTORY: Right shoulder fracture dislocation, status post reduction COMPARISON: Prereduction films 06/21/2024 FINDINGS: Interval reduction of the right shoulder, now in anatomic alignment. Demonstrated mildly displaced comminuted Hill-Sachs fracture with dominant fracture fragment involving the greater tuberosity. Procedure Note Juanito Merritt MD PhD - 02/22/2025 EXAMINATION: XR SHOULDER RIGHT 2 OR MORE VIEWS HISTORY: Right shoulder fracture dislocation, status post reduction COMPARISON: Prereduction films 06/21/2024 FINDINGS: Interval reduction of the right shoulder, now in anatomic alignment. Demonstrated mildly displaced comminuted Hill-Sachs fracture with dominant fracture fragment involving the greater tuberosity. IMPRESSION: Reduced right shoulder, with mildly displaced comminuted Hill-Sachs fracture Electronically signed by: Juanito Merritt M.D. us Nelson Yeager MD PhD IMG XR PROCEDURES Final Result * eGFR (06/21/2024 8:55 AM SURVEILLANCE TECHNICIAN) eGFR >90 >=60 mL/min/1. 73 m2 Comment: [...] last reviewed 2021. Blood 06/21/2024 8:55 AM SURVEILLANCE TECHNICIAN 06/21/2024 9:09 AM SURVEILLANCE TECHNICIAN us Tete Clark MD LAB BLOOD ORDERABLES Final Res ult [facility] [place] [address] * (ABNORMAL) Pro B-type natriuretic peptide (06/21/2024 8:55 AM SURVEILLANCE TECHNICIAN) NT-proBNP 1,234(H) <=300 pg/mL Comment: Interpretive Comments: [...] as advanced age. - References: 1. Marlon JL et.al. Eur Heart J. 2006:27:330-337. 2. John RW, Bob QUILES. J. AM Eddie Cardiol: Cardiovasc Imag. 2009;2: 216- 225. Interpretive Data Last Revised Date: 2017. Blood 06/21/2024 8:55 AM SURVEILLANCE TECHNICIAN 06/21/2024 9:09 AM SURVEILLANCE TECHNICIAN us Jaylin Kamara MD LAB BLOOD ORDERABLES Teetee l Result [facility] Department [place] [address] * (ABNORMAL) Comprehensive metabolic panel (06/21/2024 8:55 AM SURVEILLANCE TECHNICIAN) Sodium 124(L) 135 - 145 mmol/L Potassium, pl 4.8 3.3 - 4.9 mmol/L [facility] Comment:Repeated and Verifie d Chloride 88(L) 97 - 110 mmol/L [facility] CO2 21(L) 22 - 32 mmol/L [facility] Anion gap 15 2 - 15 mmol/L [facility] BUN 8 6 - 25 mg/dL [facility] Creatinine 0.82 0.80 - 1.30 mg/dL [facility] Glucose 114 70 - 199 mg/dL [facility] Comment: Interpretive Data Fasting glucose >/= 126 [...] 2022. Calcium 8.9 8.5 - 10.3 mg/dL [facility] Bilirubin, total 0.7 0.1 - 1.2 mg/dL [facility] Protein, pl 7.1 6.5 - 8.5 g/dL [facility] Albumin 3.9 3.5 - 5.0 g/dL [facility] Alk phos 42 40 - 130 Units/L [facility] ALT 17 7 - 55 Units/L [facility] Comment:Reviewed AST 38 10 - 50 Units/L [facility] Comment:Reviewed Blood 06/21/2024 8:55 AM SURVEILLANCE TECHNICIAN 06/21/2024 9:09 AM SURVEILLANCE TECHNICIAN us Tete Clark MD LAB BLOOD ORDERABLES Final Res ult [facility] [place] [address] * XR Pelvis 1 or 2 Views (06/21/2024 8:51 AM SURVEILLANCE TECHNICIAN) Anatomical Region Laterality Modality Body, Pelvis N/A Computed Radiogr aphy 06/21/2024 10:2 7 AM SURVEILLANCE TECHNICIAN Narrative 06/21/2024 10:33 AM SURVEILLANCE TECHNICIAN EXAMINATION: XR CHEST 1 VIEW, XR PELVIS [...] Chest 1 Vw Portable (06/21/2024 8:51 AM SURVEILLANCE TECHNICIAN) Anatomical Region Laterality Modality Body, Chest N/A Computed Radiogr aphy 06/21/2024 10:2 7 AM SURVEILLANCE TECHNICIAN Narrative 06/21/2024 10:33 AM SURVEILLANCE TECHNICIAN EXAMINATION: XR CHEST 1 VIEW, XR PELVIS [...] Result * Check Sample (06/21/2024 8:28 AM SURVEILLANCE TECHNICIAN) ABO Rh A Positive [facility] OTHER 06/21/2024 8:28 AM SURVEILLANCE TECHNICIAN 06/21/2024 8:35 AM SURVEILLANCE TECHNICIAN us Nelson Yeager MD PhD LAB BLOOD ORDERABL ES Final Result [facility] [place] [address] [facility] * ECG 12-LEAD (06/21/2024 7:42 AM SURVEILLANCE TECHNICIAN) Narrative [facility] - 06/21/2024 7:42 AM SURVEILLANCE TECHNICIAN Nelson Yeager MD PhD 06/21/2024 7:43 AM [...] ED Nelson Yeager MD PhD 06/21/24 0743 Zana Kelley MD ECG ORDERABLES Final Result [facility] * eGFR (06/21/2024 7:42 AM SURVEILLANCE TECHNICIAN) eGFR >90 >=60 mL/min/1. 73 m2 Comment: [...] last reviewed 2021. Blood 06/21/2024 7:42 AM SURVEILLANCE TECHNICIAN 06/21/2024 8:00 AM SURVEILLANCE TECHNICIAN us Zana Kelley MD LAB BLOOD ORDERABLES Final Re sult [facility] Department [place] [address] * (ABNORMAL) Differential, auto (06/21/2024 7:42 AM SURVEILLANCE TECHNICIAN) Neutrophil abs 11.3(H) 1.5 - 6.5 K/cumm Imm gran abs 0.1 0.0 - 0.1 K/cumm [facility] Lymphocyte abs 0.5(L) 0.8 - 3.3 K/cumm [facility] Monocyte abs 1.0(H) 0.2 - 0.8 K/cumm [facility] Eosinophil abs 0.6(H) 0.0 - 0.5 K/cumm [facility] Basophil abs 0.0 0.0 - 0.1 K/cumm [facility] Neutrophil pct 83.5 % [facility] Comment: Confirmed by smear review Interpretive Data Percent cell count reference ranges are not reported, since discordance with absolute values may lead to misinterpretation of CBC data. Current Interpretive Data was last revised on 2017. Imm gran pct 0.4 % [facility] Comment: Interpretive Data Percent cell count reference ranges are not reported, since discordance with absolute values may lead to misinterpretation of CBC data. Current Interpretive Data was last revised on 2017. Lymphocyte pct 3.9 % [facility] Comment: Interpretive Data Percent cell count reference ranges are not reported, since discordance with absolute values may lead to misinterpretation of CBC data. Current Interpretive Data was last revised on 2017. Monocyte pct 7.7 % [facility] Comment: Interpretive Data Percent cell count reference ranges are not reported, since discordance with absolute values may lead to misinterpretation of CBC data. Current Interpretive Data was last revised on 2017. Eosinophil pct 4.4 % [facility] Comment: Interpretive Data Percent cell count reference ranges are not reported, since discordance with absolute values may lead to misinterpretation of CBC data. Current Interpretive Data was last revised on 2017. Basophil pct 0.1 % [facility] Comment: Interpretive Data Percent cell count reference ranges are not reported, since discordance with absolute values may lead to misinterpretation of CBC data. Current Interpretive Data was last revised on 2017. Blood 06/21/2024 7:42 AM SURVEILLANCE TECHNICIAN 06/21/2024 8:00 AM SURVEILLANCE TECHNICIAN us Zana Kelley MD LAB BLOOD ORDERABLES Final Re sult [facility] Department [place] [address] * (ABNORMAL) CBC with auto differential (06/21/2024 7:42 AM SURVEILLANCE TECHNICIAN) WBC 13.5(H) 3.8 - 9.9 K/cumm Hgb 11.7(L) 13.0 - 17.5 g/dL [facility] Hct 32.8(L) 38.9 - 50.3 % [facility] Plt 201 150 - 400 K/cumm [facility] MPV 10.2 9.1 - 12.3 fL [facility] RBC 3.27(L) 4.30 - 5.80 M/cumm [facility] MCV 100.3(H) 81.3 - 96.4 fL [facility] MCH 35.8(H) 27.1 - 33.3 pg [facility] MCHC 35.7 32.3 - 35.7 g/dL [facility] RDW CV 11.5 11.1 - 14.9 % [facility] RDW SD 41.9 35.7 - 48.1 fL [facility] NRBC abs 0.00 0.00 - 0.01 K/cumm [facility] Blood 06/21/2024 7:42 AM SURVEILLANCE TECHNICIAN 06/21/2024 8:00 AM SURVEILLANCE TECHNICIAN Zana Kelley MD LAB BLOOD ORDERABLES Final Re sult Performing Organization Address [facility] Co de Phone Number [facility] [place] [address] * aPTT (06/21/2024 7:42 AM SURVEILLANCE TECHNICIAN) aPTT 28 28 - 38 sec Comment: Interpretive Data Heparin therapeutic range: 66.0 - 100.0 seconds. Range based on correlation with therapeutic heparin activity range of 0.3 - 0.7 Units/mL. Current interpretive data was last revised on 2023. Blood 06/21/2024 7:42 AM SURVEILLANCE TECHNICIAN 06/21/2024 8:04 AM SURVEILLANCE TECHNICIAN us Tete Clark MD LAB BLOOD ORDERABLES Final Res ult Performing Organization Address [facility] de Phone Number [facility] [place] [address] * Protime-INR (06/21/2024 7:42 AM SURVEILLANCE TECHNICIAN) PT 10.9 9.7 - 13.0 sec INR 1.01 0.90 - 1.20 [facility] Comment: Interpretive data Oral anticoagulant therapeutic ranges: Venous thromboembolism prophylaxis or treatment: 2.0-3.0 CARDIOLOGY Standard range: 2.0-3.0 High-intensity range: 2.5-3.5 Refer to indication-specific guidelines for appropriate target ranges for prosthetic heart valve replacement. Current interpretive data was last revised on 2019. Blood 06/21/2024 7:42 AM SURVEILLANCE TECHNICIAN 06/21/2024 8:04 AM SURVEILLANCE TECHNICIAN Tete Clark MD LAB BLOOD ORDERABLES Final Res ult Performing Organization Address [facility] Co de Phone Number [facility] Department [place] [address] * Type and screen (06/21/2024 7:42 AM SURVEILLANCE TECHNICIAN) ABO Rh A Positive Kumar, indirect Negative [facility] Blood 06/21/2024 7:42 AM SURVEILLANCE TECHNICIAN 06/21/2024 8:02 AM SURVEILLANCE TECHNICIAN Narrative [facility] - 06/21/2024 8:47 AM SURVEILLANCE TECHNICIAN Has the patient had Daratumumab or Isatuximab in the past 6 months?->Unknown Zana Kelley MD LAB BLOOD BANK TEST ORDERABLE S Final Result Performing Organization Address [facility] de Phone Number [facility] Department [place] [address] * (ABNORMAL) Ethanol (06/21/2024 7:42 AM SURVEILLANCE TECHNICIAN) Pathologist [facility] Ethanol 31(H) <=10 mg/dL Comment: Hemolyzed; result may be falsely decreased Interpretive Data Legal limit of intoxication > or = 80 mg/dL Levels > or = 400 mg/dL are potentially TOXIC. Current interpretive data was last revised on 2018. Blood 06/21/2024 7:42 AM SURVEILLANCE TECHNICIAN 06/21/2024 8:00 AM SURVEILLANCE TECHNICIAN Tete Clark MD LAB BLOOD ORDERABLES Final Res ult Performing Organization Address [facility] Co de Phone Number [facility] Department [place] [address] * (ABNORMAL) Comprehensive metabolic panel (06/21/2024 7:42 AM SURVEILLANCE TECHNICIAN) Pathologist [facility] Sodium 125(L) 135 - 145 mmol/L Potassium, pl See Comment 3.3 - 4.9 mmol/L [facility] Comment:Credited; Hemolyzed Specimen Chloride 88(L) 97 - 110 mmol/L [facility] CO2 19(L) 22 - 32 mmol/L [facility] Anion gap 18(H) 2 - 15 mmol/L [facility] BUN 9 6 - 25 mg/dL [facility] Creatinine 0.78(L) 0.80 - 1.30 mg/dL [facility] Glucose 114 70 - 199 mg/dL [facility] Comment: Interpretive Data Fasting glucose >/= 126 [...] 2022. Calcium 8.7 8.5 - 10.3 mg/dL [facility] Bilirubin, total 0.7 0.1 - 1.2 mg/dL [facility] Protein, pl 7.5 6.5 - 8.5 g/dL [facility] Albumin 3.9 3.5 - 5.0 g/dL [facility] Alk phos 34(L) 40 - 130 Units/L [facility] Comment:Hemolyzed; result ma y be falsely decreased ALT See Comment 7 - 55 Units/L [facility] Comment:Credited; Hemolyzed Specimen AST See Comment 10 - 50 Units/L [facility] Comment:Credited; Hemolyzed Specimen Blood 06/21/2024 7:42 AM SURVEILLANCE TECHNICIAN 06/21/2024 8:00 AM SURVEILLANCE TECHNICIAN us Zana Kelley MD LAB BLOOD ORDERABLES Final Re sult [facility] Department [place] [address] * XR Humerus Right 2 or More Views (06/21/2024 7:23 AM SURVEILLANCE TECHNICIAN) Anatomical Region Laterality Modality Upper Extremities, Upper Arm Right Com puted Radiography 06/21/2024 8:30 AM SURVEILLANCE TECHNICIAN Impressions 06/21/2024 9:25 AM SURVEILLANCE TECHNICIAN 1. Comminuted Hill-Sachs fracture of the right humerus with anterior and inferior displacement of the right humerus. Dictated by: Colby Wyman M.D. The radiology attending physician has personally reviewed this study, and had reviewed and/or edited this written report and agrees with it. Electronically signed by: Juanito Merritt M.D. Narrative 06/21/2024 9:25 AM SURVEILLANCE TECHNICIAN EXAMINATION: XR SHOULDER RIGHT 2 OR MORE [...] by: Juanito Merritt M.D. Zana Kelley MD IMG XR PROCEDURES Final Resul t * XR Shoulder Right 2 or More Views (06/21/2024 7:23 AM SURVEILLANCE TECHNICIAN) Anatomical Region Laterality Modality Upper Extremities, Shoulder Right Comp uted Radiography 06/21/2024 8:30 AM SURVEILLANCE TECHNICIAN Impressions 06/21/2024 9:25 AM SURVEILLANCE TECHNICIAN 1. Comminuted Hill-Sachs fracture of the right humerus with anterior and inferior displacement of the right humerus. Dictated by: Colby Wyman M.D. The radiology attending physician has personally reviewed this study, and had reviewed and/or edited this written report and agrees with it. Electronically signed by: Juanito Merritt M.D. Narrative 06/21/2024 9:25 AM SURVEILLANCE TECHNICIAN EXAMINATION: XR SHOULDER RIGHT 2 OR MORE [...] * XR Outside Reference (06/21/2024 7:22 AM SURVEILLANCE TECHNICIAN) Impressions [facility] - 06/21/2024 7:22 AM SURVEILLANCE TECHNICIAN These images are for Reference purposes only and have not been reviewed by [facility]. There will be no report generated by a [facility] Radiologist. Narrative [facility] - 06/21/2024 7:22 AM SURVEILLANCE TECHNICIAN EXAMINATION: Images For Reference Purposes Only us Tete Clark MD IMG XR PROCEDURES Final Result [facility] * Procedural Sedation (06/21/2024 5:33 AM SURVEILLANCE TECHNICIAN) Narrative Nelson Yeager MD PhD - 06/21/2024 5:33 AM SURVEILLANCE TECHNICIAN Nelson Yeager MD PhD 07/14/2024 7:01 AM Procedural Sedation Date/Time: 06/21/2024 5:33 AM Performed by: Tete Clark MD Authorized by: Nelson Yeager MD PhD [place] Protocol: RN Notified of Procedure: yes Informed [...] LOC assessments, frequent vital sign checks and campus monitor Intra-procedure events: hypoxia Intra-procedure management: Airway repositioning Sedation end time (end of provider face to face time): 06/21/2024 10:10 AM Total sedation time (minutes): 14 Maximal depth of sedation: Moderate Post-procedure details: Patient tolerance: Tolerated well, no immediate complications us Nelson Yeager MD PhD IN CLINIC/BEDSIDE ORDERABLES Final Result from Last 3 Months Insurance APROOFED MEDICARE FOR LIFE MEDICARE Advance Directives For more information, please contact: [phone] * Full Code (Latest Code Status on File) Date Activated Date Inactivated Comments 06/21/2024 3:36 PM 06/22/2024 5:14 PM Care Teams 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
--- OUTSIDE RECORDS SUMMARY | 2024-07-22 08:05 | XMS_ITS | Continuity of Care Document ---
Author Organization [employer] [facility] Address [address] [place] [address] Phone Care Team Providers Care Fire Control Technician Name Role Phone [place] SOTO FACS, Rip [...] Diagnoses Date Provider Providers Copied on Encounter [facility] [employer] [facility], [address], [place], [place], [address], tel:[phone] SEC Esther N Lindbergh 2 week post op (chief complaint) FOLLOW-UP SURGERY NOS Mar-0 2- [address] [place] [address] [facility] [employer], [address], [place], [place], [address], . tel:[phone] [facility]San [facility] HospitalVisual [facility] ([employer]) [facility], [address], [place], [place], [address], tel:[phone] SEC [place] N Lind[place]h 1 day PO OS (chief complaint) FOLLOW-UP SURGERY NOS Feb-2 2- 3 [place] Erwin. [address] [employer], [address], [place], [place], [address], [place]. tel:[phone] [facility], [facility] City[facility], [facility] [address], [place], [place], [address], [place] tel:[phone] [facility] No Information Feb-2 - 3 [place] Erwin. [address] [employer] [address], [address], [place], [place], [address], [place]. tel:[phone] Referring Provider: Rip Velasco, [facility] [employer] [address], [place], [address] . tel:[phone] [facility], [address], [place], [place], [address], [place] tel:[phone] SEC [place] N [place] No Information Nov- 3 [place] Rip. [address], [address], [place], [place], [address], [place]. tel:[phone] [facility], [address] [place] [address] [address], [place], [place], [address], [place] tel:[phone] SEC [place] N [place] blurry vision (chief complaint) No Information Oct-2 [address] [place] [address] [place], [place] [address]Cl[address] [employer], [address], [place], [place], [address], [place]. tel:[phone] Referring Provider: Súal Garrison, [address] [facility], [place], [place], [facility]. tel:[phone] [facility], [address] [place] [address] [address], [place], [place], [address], [place] tel:[phone] SEC Esther N Lindbergh No Information Jan- 3 [place] Rip. [address] [place] [address] [employer] [facility], [address], [place], [place], [address], [place]. tel:[phone] [facility], [address] [place] [address] [address], [place], [place], [address], [place] tel:[phone] SEC [facility] No Information Oct-2 3-200 9 Krishnasamy Shawn. [address], [facility], [place]. tel:[phone] [facility], [address] [place] [address] [address], [place], [place], [address], [place] tel:[phone] SEC [facility] No Information Oct-0 2-200 9 Krishnasamy Shawn. [address] [facility] [address], [place], [facility], [place]. tel:[phone] [facility], [address] [facility] [address], [place], [place], [address], tel:[phone] [facility] No Information Sep-2 5-200 9 Krishnasamy Shawn. [address], [facility], . tel:[phone] [facility], [address], [place], [place], [address], tel:[phone] [facility] No Information Sep-2 4-200 9 Krishnasamy Shawn. [address], [facility], . tel:[phone] Referring Provider: Saúl Lopez OD F, [address] [facility] [address], [place], [place], [facility]. tel:[phone] [facility], [address] [facility] [address], [place], [place], [address], tel:[phone] [facility] No Information Sep-0 2-200 9 Krishnasamy Shawn. [facility] [address], [facility], . tel:[phone] Referring Provider: Saúl Lopez OD F, [address] [facility], [place], [place], [facility]. tel:[phone] Family History Family Member Type Diagnosis Age At Onset No Information Payers Payer name Insurance type Covered alliance party ID Authoriza tion(s) No Information Social [...]
[2024-07-22 08:13] LABS: Basophils Percent Auto 0.5 % (0.2-1.2); Eosinophils Percent Auto 0.5 % (0-4.4); Hematocrit 41.5 % (42.0-52.0); Hemoglobin 14.1 g/dL (14.0-18.0); Immature Granulocyte Absolute 0.04 K/mm3 (0.00-0.031); Immature Granulocyte Percent A 0.5 % (0-0.5); Lymphocytes Absolute Auto 1.58 K/mm3 (0.9-3.2); Lymphocytes Percent Auto 18.9 % (18.3-44.2); Mean Corpuscular Hemoglobin 36.4 pg (26-34); Mean Corpuscular Volume 107.2 fl (80-100); Mean Platelet Volume 9.7 fl (7.4-10.4); Monocytes Percent Auto 12.4 % (2.6-8.5); Neutrophils Absolute Auto 5.6 K/mm3 (1.3-6.7); Neutrophils Percent Auto 67.2 % (45.5-73.1); Platelet Count Result 264 k/mm3 (150-375); Red Blood Count 3.87 M/mm3 (4.6-6.20); Red Cell Distribution Width 12.7 % (11.5-14.5); White Blood Count 8.3 K/mm3 (4.5-10.0)
--- NOTE | 2024-07-22 08:17 | ED.SOB ---
HPI - SOB/Dyspnea General Chief Complaint: Shortness of Breath/Dyspnea Stated Complaint: sob Time Seen by Provider: 07/22/24 07:58 History of Present Illness HPI Narrative: 73-year-old male with a past medical history including aortic stenosis, hypertension, alcoholism presenting to the emergency department with shortness of breath. Patient has been short of breath for 3 days and knows that he is having worsening dyspnea on exertion and new bilateral lower extremity swelling. No history of heart failure, no history of irregular heart rhythms. Takes a baby aspirin but no anticoagulation. Takes amlodipine and losartan but no other blood pressure medications. No history of any cardiac surgery, RI or stents. No history of DVT or PE. Several weeks ago he did get a fracture dislocation of his right upper extremity that was repaired non operatively. Related Data Home Medications ?Medication ?Instructions ?Recorded ?Confirmed ?Last Taken ?Type aspirin 81 mg tablet,delayed 81 mg PO DAILY 05/22/19 07/08/24 Unknown History release (Adult Low Dose Aspirin) Allergies Allergy/AdvReac Type Severity Reaction Status Date / Time No Known Allergies Allergy Verified 07/08/24 08:50 Review of Systems Review of Systems: As reviewed above in HPI [facility] Past Medical History Medical History (Updated 07/22/24 @ 10:34 by Deven Lai MD) Aortic stenosis Aortic stenosis, moderate Low serum sodium Low back strain Vitamin D deficiency Umbilical hernia without obstruction and without gangrene Plantar fasciitis of right foot Overweight Other hyperlipidemia Other abnormal glucose Hyponatremia ETOHism Aortic stenosis, mild Aortic valve, bicuspid PRESSLEY (dyspnea on exertion) Essential hypertension Other and unspecified hyperlipidemia Family History Family History Sibling Family history of cardiovascular disease Social History Social History Smoking status: Never smoker Smoking end date: 04/30/86 Alcohol intake: current Substance use: never Substance use type: does not use Do You Feel Safe in your Home?: Yes Lack of Transportation: No Lack of Food: Never True Current Housing: Decline to Answer Concerned About Future Housing: Decline to Answer Difficulty Paying Gas/Electric Bills: Decline to Answer Difficulty Paying for Meds: Decline to Answer Currently Unemployed: Decline to Answer Education: Decline to Answer Difficulty w/ Childcare or Family Care: Decline to Answer Exam Narrative: GENERAL: Dyspneic, tachypneic, answering questions appropriately. mentating presently HEAD: [Normocephalic, atraumatic.] EYES: [PERRLA and EOMI.] ENT: Nares clear, no rhinorrhea or epistaxis. Mucous membranes moist. NECK: Supple. CHEST: Bibasilar rales with coarse breath sounds, tachypnea, no wheezing HEART: Tachycardic rate, irregular rhythm. No murmur heard. [Normal peripheral pulses.] Cool extremities ABDOMEN: [Soft, nondistended], [nontender], [No rigidity or guarding] EXTREMITIES: Normal range of motion. [No edema.] SKIN: Cool extremities, some peripheral cyanosis appreciated in the fingertips and feet NEURO: [No focal deficits]. Alert and oriented [x3.] PSYCH: [Normal mood and affect.] Course Vital Signs Vital signs: Vital Signs Temperature 36.4 C L 07/22/24 08:04 Pulse Rate 152 H 07/22/24 08:04 Respiratory Rate 24 H 07/22/24 08:04 Blood Pressure 103/77 07/22/24 08:04 Pulse Oximetry 100 07/22/24 08:04 Oxygen Delivery Room Air 07/22/24 08:04 Temperature 36.6 C 07/22/24 08:57 Pulse Rate 135 H 07/22/24 10:22 Respiratory Rate 32 H 07/22/24 08:57 Blood Pressure 125/81 07/22/24 10:22 Pulse Oximetry 96 07/22/24 08:57 Oxygen Delivery Room Air 07/22/24 08:10 Procedures Other Procedure Procedure 1: Other Procedure: Procedure: Bedside 2D echocardiogram Indication: New onset heart failure, atrial fibrillation with rapid ventricular response Technique: Multiple views including apical 4 chamber, parasternal long, parasternal short, subxiphoid views and IVC view obtained. Findings: Irregular heart rate and rhythm consistent with AFib. Severe hypokinesis globally with ejection fraction about 10-15% of the LV. IVC is plethoric without respiratory variation, by apical ballooning and dilatation without any ventricular dilatation or ballooning, no right ventricular strain noted. No pericardial effusions. New changes globally compared to prior echocardiogram done 2 months ago. Final impression: Irregular rhythm consistent with AFib. New onset reduced ejection fraction. MDM - SOB/Dyspnea MDM Narrative Medical decision making narrative: 73-year-old male presenting with dyspnea for last 3 days. He has a history of aortic stenosis, bicuspid aortic valve, hypertension, alcoholism with daily drinking. He presents in an irregular heart rhythm with a pulse in the 150s within regular rate, regular rhythm consistent with atrial fibrillation with RVR. Tachypnea and dyspneic but he has saturating 100% on room air. Has coarse rales in the bibasilar regions of his auscultation. Blood pressure is soft at 103/77 but not in shock at this time. Bedside echocardiogram was conducted showing significantly reduced ejection fraction of about 10-15%, both Thorek IV see without any respiratory variation or collapse. Biapical dilation but no right ventricular strain or dilated ventricles. Compared to previous echocardiogram done 2 months ago these are new changes and he has normal ejection fraction and Ciara. Considerations presently are for new onset AFib RVR causing cardiomyopathy, early signs of cardiogenic shock with his soft blood pressures and cool extremities, alcoholism causing cardiomyopathy, thromboembolic event such as a pulmonary embolism given his recent fracture, myocardial event such as ACS. He was started on amiodarone with bolus and maintenance infusion doses given his reduced ejection fraction need for rate control. Hemodynamically stable at this time and mentating appropriately does not need emergent cardioversion. Started on heparin bolus and infusion, laboratory studies were drawn, coag studies, troponins ordered. Serial EKG, chest x-ray and CT angiography of his chest ordered. He was given 80 mg of IV Lasix for diuresis at this time. 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 Patient's chest x-rays independent reviewed and shows bilateral pleural effusions. CT angiography was also independently reviewed and does not appreciate have any PE or dissection. Confirmed by radiology with pulmonary embolism but he does have bilateral pleural effusions which were evident on x-ray. Mildly elevated troponin, repeat pending. No leukocytosis or anemia. Normal platelet count. BNP ordered. Patient was re-evaluated frequently after the amnio bolus infusions and is now having improved rate control with heart rates in the 120s to 130s. Saturating 100% on room air with blood pressure improving to 125/81. He is stable for admission to the hospital at this time. I spoke to the hospitalist Dr. Hummel who accepted the patient to the IMU. Head Of Mobile evaluated the patient at bedside and provide recommendations. Echocardiogram pending. Medical Records Attestation: I reviewed the patient's medical records. Lab Data Attestation: I reviewed the patient's lab results. 07/22/24 08:08 07/22/24 08:08 Labs: Lab Results 07/22/24 Range/Units 08:08 WBC 8.3 (4.5-10.0) K/mm3 RBC 3.87 L (4.6-6.20) M/mm3 Hgb 14.1 (14.0-18.0) g/dL Hct 41.5 L (42.0-52.0) % MCV 107.2 H (80-100) fl MCH 36.4 H (26-34) pg MCHC 34.0 (32-36) g/dl RDW 12.7 (11.5-14.5) % Plt Count 264 (150-375) k/mm3 MPV 9.7 (7.4-10.4) fl Immature Gran % (Auto) 0.5 (0-0.5) % Neut % (Auto) 67.2 (45.5-73.1) % Lymph % (Auto) 18.9 (18.3-44.2) % Dixie % (Auto) 12.4 H (2.6-8.5) % Eos % (Auto) 0.5 (0-4.4) % Baso % (Auto) 0.5 (0.2-1.2) % Lymph # (Auto) 1.58 (0.9-3.2) K/mm3 Dixie # (Auto) 1.0 H (0.1-0.6) K/mm3 Eos # (Auto) 0.0 (0-0.3) K/mm3 Baso # (Auto) 0.0 (0.0-0.1) K/mm3 Abs Immat Gran (auto) 0.04 H (0.00-0.031) K/mm3 Absolute Neuts (auto) 5.6 (1.3-6.7) K/mm3 Absolute Nucleated RBC 0.000 (0.0-0.012) K/mm3 Band Neutrophils % Not Reportable Nucleated RBC % 0.0 (0.0-0.2) % Platelet Estimate Adequate (Adequate) Anisocytosis 1+ Macrocytosis 1+ (NORMAL) Schistocytes None seen PT 14.1 (11.1-14.7) Seconds INR 1.0 APTT 28.8 (22.3-36.8) Seconds Sodium 130 L (137-145) mmol/L Potassium 4.3 (3.4-5.0) mmol/L Chloride 95 L (98-107) mmol/L Carbon Dioxide 22 (22-30) mmol/L Anion Gap 13 H (4-12) mmol/L BUN 11 (9-20) mg/dL Creatinine 0.83 (0.7-1.3) mg/dL Estim Creat Clear Calc 78 ml/min Estimated GFR > 60 (59 - ) Glucose 123 H (65-110) mg/dL Calcium 9.4 (8.4-10.2) mg/dL Total Bilirubin 1.6 H (0.2-1.3) mg/dL AST 27 (17-59) U/L ALT 18 (6-50) U/L Alkaline Phosphatase 69 (38-126) U/L Troponin I 0.029 (0.000-0.034) ng/mL Total Protein 8.0 (6.3-8.2) g/dL Albumin 4.4 (3.5-5.1) g/dL Imaging Data Attestation: I personally reviewed and interpreted this imaging study as follows: My impression: Impressions Chest CTA 07/22/24 09:58 IMPRESSION: 1. No pulmonary embolus. 2. Mild pulmonary edema. 3. Moderate-sized pleural effusions. ADDENDUM: 07/22/24 1020 There is a 10 mm nodule in left upper lobe, which may be infection or neoplasm. Noncontrast low-dose chest CT is recommended in 3 months. Chest X-Ray 07/22/24 10:16 IMPRESSION: 1. 10 mm nodule at left lung upper lobe, which may be infection or neoplasm. Noncontrast low-dose chest CT is recommended in 3 months. 2. Airspace opacities at the lung bases, likely atelectasis. 3. Moderate-sized pleural effusions. 4. Cardiomegaly. ECG Data EKG #1: Attestation: I personally reviewed and interpreted this ECG as follows: ECG completion date: 07/22/24 ECG completion time: 08:05 Prior ECG tracings: available for review Interpretation: Irregular rate and rhythm consistent with AFib RVR. No ST segment elevations, depressions or inversions. Compared to prior EKG these are new findings. QTC 375, QRS 72. Ventricular rate 152 beats per minute. [place] normal. Final impression atrial fibrillation with rapid ventricular response. Critical Care Time Critical Care Time Critical Care Time: Yes Total Critical Care Time: 75 (Exclusive of the separately billed procedures above) Discharge Plan Discharge Clinical Impression: New onset of congestive heart failure, Aortic stenosis, New onset a-fib, Atrial fibrillation with rapid ventricular response, Bilateral pleural effusion Patient Disposition: Still a Patient Condition: Guarded Prognosis Patient Language: Filipino Prescriptions: No Action aspirin [Adult Low Dose Aspirin] 81 mg tablet,delayed release (DR/EC) 81 mg PO DAILY sodium chloride 1,000 mg tablet,soluble 1,000 mg PO DAILY Qty: 90 2RF furosemide [Lasix] 40 mg tablet 40 mg PO BID Qty: 14 0RF losartan 100 mg tablet See Rx Instructions .ROUTE .COMPLEX Qty: 90 2RF Dose Instruction: TAKE 1 TABLET BY MOUTH DAILY Rx Instructions: TAKE 1 TABLET BY MOUTH DAILY amlodipine 10 mg tablet See Rx Instructions .ROUTE .COMPLEX Qty: 90 2RF Dose Instruction: TAKE 1 TABLET BY MOUTH DAILY Rx Instructions: TAKE 1 TABLET BY MOUTH DAILY Follow-up/Referrals: Juanito Woodward MD [Primary Care Provider] - Time of Disposition: 10:33
--- OUTSIDE RECORDS SUMMARY | 2024-07-22 08:21 | XMS_ITS | Continuity of Care Document ---
Author Organization [employer] Address [address] [place] [address] Phone Care Team Providers Care Paper Stacker Name Role Phone [place] SOTO FACS, Rip [...] Diagnoses Date Provider Providers Copied on Encounter [facility], [address], [place], [place], [address], tel:[phone] SEC Esther N Lindbergh 2 week post op (chief complaint) FOLLOW-UP SURGERY NOS Mar-0 2- 3 [place] Erwin. [facility] [employer], [address], [place], [place], [address], . tel:[phone] [facility] Hospital[facility], [address], [place], [place], [address], tel:[phone] SEC [place] N Lindbergh 1 day PO OS (chief complaint) FOLLOW-UP SURGERY NOS Feb-2 2- 3 [place] Erwin. [address], [address], [place], [place], [address], [place]. tel:[phone] [facility], [facility] [employer] [address], [place], [place], [address], [place] tel:[phone] Edward [facility] No Information Feb-2 - 3 [place] Erwin. [address], [address], [place], [place], [address], [place]. tel:[phone] Referring Provider: Rip Velasco, [facility] [employer] [address], [place], [address] . tel:[phone] [facility], [address], [place], [place], [address], [place] tel:[phone] SEC [place] N [place] No Information Nov- 3 [place] Rip. [address] [employer], [address], [place], [place], [address], [place]. tel:[phone] [facility], [address] [place] [address] [address], [place], [place], [address], [place] tel:[phone] SEC [place] N Lindbergh blurry vision (chief complaint) No Information Oct-2 3 [place] Rip. [address] [place], [place] [address] [employer], [address], [place], [place], [address], [place]. tel:[phone] Referring Provider: Saúl Garrison, [address] [facility], [place], [place], [facility]. tel:[phone] [facility], [address] [place] [address] [address], [place], [place], [address], [place] tel:[phone] SEC Esther N Lindberg[place] No Information Jan- 3 [place] Rip. [address] [place] [address] [facility], [address], [place], [place], [address], [place]. tel:[phone] [facility], [address] [place] [address] [address], [place], [place], [address], [place] tel:[phone] SEC [facility] No Information Oct-2 3-200 9 Krishnasamy Shawn. [address], [facility][note 2], [place]. tel:[phone] [facility], [address] [place] [address] [address], [place], [place], [address], [place] tel:[phone] SEC [facility] No Information Oct-0 2-200 9 Krishnasamy Shawn. [address] [facility] [address], [place], [facility][note 2], [place]. tel:[phone] [facility], [address] [facility] [address], [place], [place], [address], tel:[phone] [facility] No Information Sep-2 5-200 9 Krishnasamy Shawn. [address], [facility][note 2], . tel:[phone] [facility], [address], [place], [place], [address], tel:[phone] [facility] No Information Sep-2 4-200 9 Krishnasamy Shawn. [address], [facility][note 2], . tel:[phone] Referring Provider: Saúl Lopez OD F, 6620 [facility] [address], [place], [place], [facility]. tel:[phone] [facility], [address] [facility] [address], [place], [place], [address], tel:[phone] [facility] No Information Sep-0 2-200 9 Krishnasamy Shawn. [facility] [address], [facility][note 2], . tel:[phone] Referring Provider: Saúl Lopez OD F, 66[address] [facility], [place], [place], [facility]. tel:[phone] Family History Family Member Type Diagnosis Age At Onset No Information Payers Payer name Insurance type Covered republican ID Authoriza tion(s) No Information Social History [...]
[2024-07-22 08:23] LABS: Alanine Aminotransferase 18 U/L (6-50); Albumin Level 4.4 g/dL (3.5-5.1); Alkaline Phosphatase 69 U/L (38-126); Anion Gap 13 mmol/L (4-12); Aspartate Amino Transferase 27 U/L (17-59); Bilirubin,Total 1.6 mg/dL (0.2-1.3); Blood Urea Nitrogen 11 mg/dL (9-20); Calcium 9.4 mg/dL (8.4-10.2); Carbon Dioxide 22 mmol/L (22-30); Chloride 95 mmol/L (98-107); Estimated CRCL calculation 78 ml/min; Estimated Glomerular Filt Rate > 60; Glucose 123 mg/dL (65-110); Potassium 4.3 mmol/L (3.4-5.0); Sodium 130 mmol/L (137-145)
[2024-07-22] MEDS: HEPARIN SODIUM 5,000 UNITS/ML VIAL 7000 UNITS IV PUSH ×2 (08:30→15:28)
[2024-07-22] MEDS: HEPARIN SOD/D5W 100 UNITS/ML 25,000 UNITS/250 ML BAG 15 UNITS IV CONT (08:36)
[2024-07-22 08:40] LABS: Platelet Estimate Adequate (Adequate)
[2024-07-22 08:41] LABS: Anisocytosis 1+; Macrocytosis 1+ (NORMAL); Schistocytes None Seen
[2024-07-22] MEDS: AMIODARONE 150 MG/D5W 100 ML 150 MG/100 ML BAG 600 MG IV CONT ×2 (08:41→10:22)
[2024-07-22 08:45] LABS: Prothrombin Time 14.1 Seconds (11.1-14.7)
[2024-07-22] MEDS: FUROSEMIDE INJ 100 MG/10 ML VIAL 80 MG IV PUSH (08:45)
[2024-07-22 08:46] LABS: Partial Thromboplastin Time 28.8 Seconds (22.3-36.8)
[2024-07-22 08:48] LABS: Troponin I 0.029 ng/mL (0.000-0.034)
--- NOTE | 2024-07-22 09:05 | PC.NURSE ---
pt taken to dialysis
[2024-07-22] MEDS: AMIODARONE 360 MG/D5W 200 ML 360 MG/200 ML BAG 33.33 MG IV CONT (09:08)
--- NOTE | 2024-07-22 09:26 | PC.NURSE ---
Son pulled this nurse aside to report he worries about pt having DTs he reports his mother from ETOH withdrawal. He reports his father starts drinking around oon nika and drinks beer throughtout the day then has wine with supper then switches to scotch. Pt reports his last drink was at 2100 last night
--- NOTE | 2024-07-22 10:58 | ECG_ITS ---
Test Date: 2024-07-22 11:05:16 Measurements Intervals Dickinson Rate: 137 P: 0 CA: 0 QRS: 32 QRSD: 93 T: 6 QT: 328 QTc: 496 Interpretive Statements ATRIAL FIBRILLATION WITH RAPID VENTRICULAR RESPONSE NONSPECIFIC T-WAVE ABNORMALITY Compared to ECG 07/22/2024 08:05:00 No significant changes Electronically Signed On 07-22-2024 16:43:37 CDT by Hannah Lamb M.D.
[2024-07-22 11:32] LABS: NT Pro B Type Natriuretic Pept 5340 pg/mL (19.9-100); Troponin I 0.022 ng/mL (0.000-0.034)
--- NOTE | 2024-07-22 12:24 | P.HP_ITS ---
H&P: HPI History of Present Illness Date/Time: 07/22/24 12:24 Chief Complaint: Shortness of Breath Narrative: 73 y/o M presents here with shortness of breath with PMH of hypertension, aortic stenosis, chronic hyponatremia, and alcohol use disorder. The patient presents here from home for further evaluation of shortness of breath. He reports onset approximately one week. He describes the shortness of breath as exertional and relieved with rest. It is accompanied by bilateral lower extremity swelling, bilateral. He denies palpitations, diaphoresis, chest pain, congestion, cough, fatigue, nausea, vomiting or diarrhea. He reports a cardiac history significant for aortic stenosis and hypertension, currently on amlodipine and losartan. He denies any previous cardiac surgery, myocardial infarction, or cardiac stents. He is currently on a daily aspirin, no further anticoagulation. Of note, the patient had a greater tuberosity fracture with displacement/dislocation that was reduced at [facility] at the end of May. He had a brief O2 requirement requiring observation. CT showed small bilateral pleural effusions with asymmetric left greater than right dependent ground-glass and consolidative opacities that likely represent component of atelectasis, aspiration, and pulmonary edema given septal line thickening. He was started on a 7 day course of Levaquin. He followed up with the orthopedist at [facility] on 07/08, elected to move forward with nonsurgical management. Current daily alcohol use - 4-5 beers, 1-2 glasses of wine, 1-2 glasses of scotch daily. Denies previous withdrawal symptoms with cessation. Initial VS at presentation: 97.5? F, HR 152, RR 24, 103/77, 100% on RA. ED workup showed: No leukocytosis, no anemia, normal coags, sodium 130 (similar to previous range), initial troponin 0.029, BNP 5340. Chest CTA showed no PE, mild pulmonary edema, moderate sized pleural effusions, and a 10 mm nodule in the left upper lung (infectious versus neoplasm, repeat CT in 3 months). CXR showed a 10 mm nodule left upper lung, airspace opacities in the lung bases likely atelectasis, moderate-sized pleural effusions, cardiomegaly. Initial EKG showed AFib with RVR, rate 152. Review of Systems Review of Systems: All systems reviewed & are unremarkable except as noted in HPI and below [facility] Past Medical History Medical History (Updated 07/22/24 @ 13:09 by Miya Matthews APRN) Alcohol use disorder Aortic valve, bicuspid Aortic stenosis, moderate PAF (paroxysmal atrial fibrillation) Vitamin D deficiency Umbilical hernia without obstruction and without gangrene Plantar fasciitis of right foot Overweight Hyponatremia Essential hypertension Family History Family History Sibling Family history of cardiovascular disease Social History Social History (Updated 07/22/24 @ 13:14 by Miya Matthews APRN) Smoking status: Never smoker Smoking end date: 04/30/86 Alcohol intake: current Alcohol use details: 4-5 beers, 1-2 glasses of wine, 1-2 glasses of scotch daily 07/22/24 Substance use: never Substance use type: does not use Do You Feel Safe in your Home?: Yes Lack of Transportation: No Lack of Food: Never True Current Housing: Decline to Answer Concerned About Future Housing: Decline to Answer Difficulty Paying Gas/Electric Bills: Decline to Answer Difficulty Paying for Meds: Decline to Answer Currently Unemployed: Decline to Answer Education: Decline to Answer Difficulty w/ Childcare or Family Care: Decline to Answer Meds Home Medications and Allergies Home Medications ?Medication ?Instructions ?Recorded ?Confirmed ?Type aspirin 81 mg tablet,delayed 81 mg PO DAILY 05/22/19 07/22/24 History release (Adult Low Dose Aspirin) losartan 100 mg tablet See Rx Instructions .Route 12/07/23 07/22/24 Rx .COMPLEX #90 tabs amlodipine 10 mg tablet See Rx Instructions .Route 02/18/24 07/22/24 Rx .COMPLEX #90 tabs sodium chloride 1,000 mg soluble 1,000 mg PO DAILY #90 tabs 03/12/24 07/22/24 Rx tablet furosemide 40 mg tablet (Lasix) 40 mg PO BID #14 tabs 07/07/24 07/22/24 Rx Allergies Allergy/AdvReac Type Severity Reaction Status Date / Time No Known Allergies Allergy Verified 07/08/24 08:50 Vital Signs Vital Signs - 24 hr 07/22/24 08:04 07/22/24 08:10 07/22/24 08:41 Temperature 97.5 F L Pulse Rate 152 H 144 H Respiratory Rate 24 H Blood Pressure 103/77 122/71 Pulse Oximetry 100 100 Oxygen Delivery Room Air Room Air 07/22/24 08:52 07/22/24 08:57 07/22/24 09:08 Temperature 97.9 F Pulse Rate 136 H 141 H 140 H Respiratory Rate 32 H Blood Pressure 105/90 107/85 Pulse Oximetry 96 Oxygen Delivery 07/22/24 10:22 07/22/24 10:31 07/22/24 11:16 Temperature 97.8 F 97.8 F Pulse Rate 135 H 122 H 128 H Respiratory Rate 26 H 26 H Blood Pressure 125/81 107/96 H 106/92 H Pulse Oximetry 98 98 Oxygen Delivery Exam Const: General: comfortable and no acute distress Other: , male, chronically ill-appearing HENMT: Face/Nose/Sinus: Normal nares present Mouth: Yes moist mucous membranes Eyes: General: appearance normal, both eyes and all related structures Sclera: sclerae normal Pupils: Equal, round and reactive pupils present EOM: EOMs intact bilaterally Resp: Effort & Inspection: normal respiratory effort Auscultation: clear to auscultation bilaterally Cardio: Rate: tachycardic Rhythm: abnormal rhythm Other: Findings consistent with AFib RVR. No overt murmur or rub. GI: Other: Abdomen rounded, soft, nontender. Skin: General skin exam: normal color and no rashes or lesions noted Wounds: no wounds Neuro: Speech: normal speech Motor exam (neuro): 5/5 motor strength present throughout Sensory Exam: normal sensation Other: A&O x4, no tremor on exam. Extrem: Other: 2+ pitting edema, symmetric, extents jus t distal to the knees, bilateral. Psych: Mental Status: mental status grossly normal Affect: normal affect Other: Good insight and judgment, pleasant H&P: Results Labs Labs: Short CBC 07/22/24 Range/Units 08:08 WBC 8.3 (4.5-10.0) K/mm3 Hgb 14.1 (14.0-18.0) g/dL Hct 41.5 L (42.0-52.0) % Plt Count 264 (150-375) k/mm3 [facility] 07/22/24 08:08 Sodium 130 L Potassium 4.3 Chloride 95 L Carbon Dioxide 22 BUN 11 Creatinine 0.83 Glucose 123 H Calcium 9.4 Cardiac Enzymes 07/22/24 07/22/24 Range/Units 08:08 11:04 Troponin I 0.029 0.022 D (0.000-0.034) ng/mL Liver Function 07/22/24 Range/Units 08:08 Total Bilirubin 1.6 H (0.2-1.3) mg/dL AST 27 (17-59) U/L ALT 18 (6-50) U/L Alkaline Phosphatase 69 (38-126) U/L Albumin 4.4 (3.5-5.1) g/dL Assessment and Plan Assessment and plan (1) Atrial fibrillation with rapid ventricular response: Code(s): I48.91 - Unspecified atrial fibrillation Status: Acute Assessment and Plan: - EKG, initial: AFib with RVR, nonspecific ST and T-wave abnormality, rate 152. - echo (04/2023): EF >70%, mild LVH, grade I diastolic dysfunction (E/e' 14), mild LAE, severe (OBED 0.9 cm2, mean 67 mmHg), mod MAC, mild MR/TR RVSP 50 mmHg. update echo - started on amiodarone gtt - check TSH - workgroup leader consulted, Zachariah SOTO. provided the following recs: CHADSVasc 3 -> started on heparin gtt Amiodarone gtt -> Metoprolol PO once NSR restored Echo - telemetry monitoring, IMU (2) Congestive heart failure: Qualifiers: Heart failure chronicity: unspecified Heart failure type: diastolic Qualified Code(s): I50.30 - Unspecified diastolic (congestive) heart failure Code(s): I50.9 - Heart failure, unspecified Status: Acute Assessment and Plan: - Hx of grade 1 diastolic dysfunction, on Lasix 40 mg p.o. b.i.d. Suspect current exacerbation. - BNP 5340 - most recent echo (04/2023): EF >70%, mild LVH, grade I diastolic dysfunction - Lasix 80 mg IV -> 40 IV BID - monitor I&Os and daily weights - trend renal function (3) Alcohol use disorder: Code(s): F10.90 - Alcohol use, unspecified, uncomplicated Status: Chronic Assessment and Plan: - daily ETOH use: 4-5 beers, 1-2 glasses of wine, 1-2 glasses of scotch daily. - no previous withdrawal symptoms with cessation - CIWA protocol in place Ativan PRN Librium prn seizure precautions neurochecks Q4H - antiemetics PRN - start thiamine and folic acid p.o. (4) Essential hypertension: Code(s): I10 - Essential (primary) hypertension Status: Chronic Assessment and Plan: - chronic, currently soft at 114/93 - hold home medications, resume when appropriate. - monitor Plan History of chronic hyponatremia. Currently 130. Will continue NaCl 1G tab daily. Monitor. Diet: Heart healthy GI Prophylaxis: Not currently indicated DVT Prophylaxis: Heparin gtt Lines: Peripheral Code Status: Full code Quality VTE Prophylaxis VTE prophylaxis: pharmacologic ordered Hospitalist [facility] Advance Care Plan I have confirmed that the patient's Advanced Care Plan is present, code status is documented, or surrogate decision maker is listed in patient medical record.: Yes Medication Reconciliation I have utilized all available resources to obtain, update and review the patients current medications (includes all prescriptions, OTC, herbals, cannabis, and nutritional supplements).: Yes
--- NOTE | 2024-07-22 12:36 | PC.NURSE ---
pt provided with blanket and repositioned.
[2024-07-22] MEDS: THIAMINE HCL 100 MG TABLET PO (14:49)
[2024-07-22] MEDS: SODIUM CHLORIDE 1 GM TABLET PO (14:49)
[2024-07-22] MEDS: FOLIC ACID 1 MG TABLET PO (14:49)
[2024-07-22] MEDS: ASPIRIN 81 MG ENTERIC TABLET PO (14:49)
[2024-07-22 14:51] LABS: Free T4 Free Thyroxine Reflex 1.92 ng/dL (0.78-2.19)
[2024-07-22] MEDS: AMIODARONE 360 MG/D5W 200 ML 360 MG/200 ML BAG 16.67 MG IV CONT (14:52)
[2024-07-22 15:11] LABS: INR 1.1; Prothrombin Time 15.1 Seconds (11.1-14.7)
[2024-07-22 15:13] LABS: Partial Thromboplastin Time 109.7 Seconds (22.3-36.8)
[2024-07-22 16:26] LABS: Total Triiodothyronine (T3) 1.11 NG/ML (0.97-1.69)
[2024-07-22] MEDS: HYDROcodone/acetaminophen (*CRX) 5-325 MG TABLET 1 TAB PO (16:44)
[2024-07-22] MEDS: FUROSEMIDE INJ 40 MG/4 ML VIAL IV PUSH (18:15)
[2024-07-22] MEDS: METOPROLOL TARTRATE 25 MG TABLET PO ×2 (18:16→23:53)
[2024-07-22 18:52] LABS: Partial Thromboplastin Time 92.4 Seconds (22.3-36.8)
[2024-07-23] VITALS (23 sets, daily range): BP systolic 98–114; BP diastolic 49–81; PULSE 64–113; RESP 18–20; TEMP 36.3–36.8; O2SAT 91–95
--- NOTE | 2024-07-23 | ECHO_ITS ---
Patient Info Name: Tommy Shah Age: 73 years : 1950 Gender: Male Ht: 73 in Wt: 228 lbs BSA: 2.33 m2 HR: 91 bpm BP: 106 / 77 mmHg Heart Rhythm: Atrial Fibrillation Technical Quality: Fair Exam Date: 07/23/2024 9:54 AM Exam Location: Echo Lab Patient Status: Inpatient Admit Date: 07/22/2024 Staff Ordering Physician: Michael Soni DO Mammographer: Liliya Ha RDCS Attending Provider: Raul Hummel MD Referring Physician: Zachariah MORA; Exam Type: CA echo dop color flow w con Study Info Indications - CHF Complete two-dimensional, color flow and Doppler transthoracic echocardiogram is performed with contrast to opacify the left ventricle and to improve the deliniation of the left ventricle endocardial borders. Contrast/Agitated Saline Contrast/Ag. Saline: Definity Amount: 6.00 ml IV Access Condition: patent with no signs of infiltration Summary 1. Definity contrast administered improved wall motion interpretation. 2. Left ventricular systolic function is moderately globally reduced, estimated at 35-40%. 3. Left ventricular chamber dimension is moderately enlarged. 4. The left ventricular diastolic function is abnormal. 5. E/e' 20 is elevated. 6. Left atrial chamber dimension is severely enlarged. 7. Right atrial chamber dimension is mildly enlarged. 8. There is severe aortic valve sclerosis. 9. There is critical aortic valve stenosis with a peak velocity of 378.14 cm/s, mean gradient of 28 mmHg, and aortic valve area of 0.47 cm2. Dimensionless index 0.17 suggests severe aortic stenosis. 10. The mitral valve has severely calcified annulus. 11. There is mild mitral valve regurgitation. 12. There is trace tricuspid valve regurgitation. 13. Mild pulmonary hypertension, estimated pulmonary arterial systolic pressure is 46 mmHg. Left Ventricle Definity contrast administered improved wall motion interpretation. E/e' 20 is elevated. Left ventricular systolic function is moderately globally reduced, estimated at 35-40%. Left ventricular chamber dimension is moderately enlarged. The left ventricular diastolic function is abnormal. Right Ventricle Right ventricular chamber dimension is normal. Right ventricular systolic function is normal. Left Atria Left atrial chamber dimension is severely enlarged. Right Atria Right atrial chamber dimension is mildly enlarged. Aortic Valve There is critical aortic valve stenosis with a peak velocity of 378.14 cm/s, mean gradient of 28 mmHg, and aortic valve area of 0.47 cm2. Dimensionless index 0.17 suggests severe aortic stenosis. The aortic valve is probable trileaflet. There is severe aortic valve sclerosis. There is no aortic valve regurgitation. Pulmonic Valve There is no pulmonic regurgitation. Mitral Valve The mitral valve has severely calcified annulus. There is no mitral valve stenosis. There is mild mitral valve regurgitation. Tricuspid Valve There is trace tricuspid valve regurgitation. Mild pulmonary hypertension, estimated pulmonary arterial systolic pressure is 46 mmHg. Pericardium/Pleural There is no pericardial effusion. Inferior Vena Cava Normal inferior vena cava with >50% collapse upon inspiration consistent with normal right atrial pressure, 5 mmHg. Aorta The aortic root size at the sinus of Valsalva is normal. Left Ventricular Outflow Tract Name Value Normal LVOT 2D LVOT Diameter 1.99 cm LVOT Doppler LVOT Peak Gradient 1 mmHg LVOT Mean Gradient 1 mmHg LVOT VTI 14.54 cm LVOT VTI/AV VTI Ratio 0.15 LVOT Stroke Volume 45.23 ml LVOT CO 8.20 l/min LVOT CI 3.59 L/min/m2 Pulmonic Valve Name Value Normal RVOT Doppler RVOT Peak Gradient 1 mmHg PV Doppler PV Peak Gradient 4 mmHg Mitral Valve Name Value Normal MV Doppler MV Decel Glascock 610.74 cm/s2 MV PHT 0 s MV Area (PHT) 5.05 cm2 4.00-5.00 MV Diastolic Function MV E Peak Velocity 91.70 cm/s MV A Peak Velocity 1.04 cm/s MV E/A 87.82 MV Decel Time 0 s MV Annular TDI MV E/e' (Septal) 24.41 <=8.00 MV E/e' (Lateral) 17.32 <=8.00 MV E/e' (Average) 20.87 Tricuspid Valve Name Value Normal TV Regurgitation Doppler TR Peak Velocity 318.72 cm/s TR Peak Gradient 41 mmHg Estimated PAP/RSVP RA Pressure 5 mmHg <=5 PA Systolic Pressure 46 mmHg <36 RV Systolic Pressure 46 mmHg <36 Aortic Valve Name Value Normal AV Doppler AV Peak Velocity 378.14 cm/s AV Peak Gradient 49 mmHg AV Mean Gradient 28 mmHg AV VTI 95.88 cm AV Area (Cont Eq VTI) 0.47 cm2 >=3.00 AV Area (Cont Eq Arslan) 0.51 cm2 AV Regurgitation 2D LVOT Area 3.11 cm2 Ventricles Name Value Normal LV Dimensions 2D/MM IVS Diastolic Thickness (2D) 1.10 cm 0.60-1.00 LVID Diastole (2D) 5.09 cm 4.20-5.80 LVIW Diastolic Thickness (2D) 0.98 cm 0.60-1.00 LVID Systole (2D) 4.38 cm 2.50-4.00 LVOT Diameter 1.99 cm LV Mass (2D Cubed) 198.34 g 88.00-224.00 LV Mass Index (2D Cubed) 0.01 g/cm2 0.00-0.01 Relative Wall Thickness (2D) 0.39 LV Fractional Shortening/Ejection Fraction 2D/MM LV Fractional Shortening (2D) 14 % 25-43 LV EF (2D Teicholz) 30 % 52-72 LV Diastolic Volume (4C MOD) 105.90 ml LV EF (4C MOD) 20 % LV Diastolic Volume (2C MOD) 157.92 ml LV EF (2C MOD) 32 % LV Diastolic Volume (BP MOD) 138.70 ml 62.00-150.00 LV Diastolic Volume Index (BP MOD) 0.06 l/m2 0.03-0.07 LV Systolic Volume (BP MOD) 104.67 ml 21.00-61.00 LV Systolic Volume Index (BP MOD) 0.04 l/m2 0.01-0.03 LV EF (BP MOD) 25 % 52-72 LV Diastolic Length (4C) 6.90 cm LV Systolic Length (4C) 6.08 cm LV Stroke Volume (4C MOD) 21.52 ml Atria Name Value Normal LA Dimensions LA Volume (4C A-L) 100.10 ml RA Dimensions RA Area (4C) 23.00 cm2 <=18.00 Report Signatures
[2024-07-23 01:14] LABS: Partial Thromboplastin Time 57.8 Seconds (22.3-36.8)
[2024-07-23] MEDS: HEPARIN SODIUM 5,000 UNITS/ML VIAL 3500 UNITS IV PUSH (01:58)
[2024-07-23] MEDS: AMIODARONE 360 MG/D5W 200 ML 360 MG/200 ML BAG 16.67 MG IV CONT (02:39)
[2024-07-23 04:37] LABS: Basophils Percent Auto 0.5 % (0.2-1.2); Eosinophils Absolute Auto 0.1 K/mm3 (0-0.3); Eosinophils Percent Auto 0.6 % (0-4.4); Hematocrit 38.2 % (42.0-52.0); Hemoglobin 12.8 g/dL (14.0-18.0); Immature Granulocyte Absolute 0.04 K/mm3 (0.00-0.031); Immature Granulocyte Percent A 0.5 % (0-0.5); Lymphocytes Absolute Auto 1.14 K/mm3 (0.9-3.2); Lymphocytes Percent Auto 13.7 % (18.3-44.2); Mean Corpuscular HGB Conc 33.5 g/dl (32-36); Mean Corpuscular Hemoglobin 35.7 pg (26-34); Mean Corpuscular Volume 106.4 fl (80-100); Mean Platelet Volume 10.5 fl (7.4-10.4); Monocytes Absolute Auto 1.2 K/mm3 (0.1-0.6); Monocytes Percent Auto 14.1 % (2.6-8.5); Neutrophils Absolute Auto 5.9 K/mm3 (1.3-6.7); Neutrophils Percent Auto 70.6 % (45.5-73.1); Platelet Count Result 231 k/mm3 (150-375); Red Blood Count 3.59 M/mm3 (4.6-6.20); Red Cell Distribution Width 12.8 % (11.5-14.5); White Blood Count 8.3 K/mm3 (4.5-10.0)
[2024-07-23 04:46] LABS: Alanine Aminotransferase 13 U/L (6-50); Albumin Level 3.5 g/dL (3.5-5.1); Alkaline Phosphatase 59 U/L (38-126); Anion Gap 12 mmol/L (4-12); Aspartate Amino Transferase 20 U/L (17-59); Bilirubin,Total 0.8 mg/dL (0.2-1.3); Blood Urea Nitrogen 13 mg/dL (9-20); Calcium 8.4 mg/dL (8.4-10.2); Carbon Dioxide 21 mmol/L (22-30); Chloride 96 mmol/L (98-107); Estimated CRCL calculation 80 ml/min; Estimated Glomerular Filt Rate > 60; Glucose 119 mg/dL (65-110); Magnesium 1.6 mg/dL (1.6-2.3); Potassium 3.3 mmol/L (3.4-5.0); Sodium 129 mmol/L (137-145)
--- NOTE | 2024-07-23 05:27 | ECG_ITS ---
Test Date: 2024-07-23 09:39:03 Measurements Intervals [place] Rate: 88 P: 0 CO: 0 QRS: 38 QRSD: 97 T: 68 QT: 427 QTc: 518 Interpretive Statements SINUS RHYTHM WITH SINUS ARRHYTHMIA ST DEVIATION AND MODERATE T-WAVE ABNORMALITY, CONSIDER ANTERIOR ISCHEMIA [-0.1+ mV T-WAVE IN V3/V4] Compared to ECG 07/22/2024 11:05:16 SINUS RHYTHM NOW PRESENT Electronically Signed On 07-23-2024 13:02:19 CDT by Hannah Lamb M.D.
[2024-07-23] MEDS: METOPROLOL TARTRATE 25 MG TABLET PO ×2 (06:17→17:39)
[2024-07-23] MEDS: HEPARIN SOD/D5W 100 UNITS/ML 25,000 UNITS/250 ML BAG 15 UNITS IV CONT (06:18)
--- NOTE | 2024-07-23 07:53 | P.PNCA_ITS ---
Progress Note: A&P Assessment and Plan (1) PAF (paroxysmal atrial fibrillation): Code(s): I48.0 - Paroxysmal atrial fibrillation Status: Acute Assessment and Plan: Back in sinus rhythm. New onset. Probably age related. [id number] 3. Starting Heparin drip. Start Amiodarone drip to restore sinus rhythm. Start Metoprolol for rate control. Change Amiodarone IV to 200 mg PO BID. Change heparin drip to Eliquis 5 mg BID. Decrease Metoprolol Tartate 25 mg BID. Obtain echo. (2) Essential hypertension: Code(s): I10 - Essential (primary) hypertension Status: Chronic Assessment and Plan: Stable. (3) Congestive heart failure: Qualifiers: Heart failure type: diastolic Heart failure chronicity: unspecified Qualified Code(s): I50.30 - Unspecified diastolic (congestive) heart failure Code(s): I50.9 - Heart failure, unspecified Status: Acute Assessment and Plan: Obtain echo. On Lasix 40 mg IV BID. (4) Aortic stenosis: Code(s): I35.0 - Nonrheumatic aortic (valve) stenosis Status: Acute Assessment and Plan: Severe. Subjective Date/time seen: 07/23/24 07:53 Interval history: Denies chest pain or sob. Exam Const: General: cooperative, healthy appearing and comfortable Resp: Auscultation: crackles, no rhonchi and no wheezes Cardio: Rate: regular rate Rhythm: regular rhythm Heart sounds: Murmur heart sound present (III/ systolic murmur RICS) Peripheral pulses: dorsalis pedis present GI: GI Palp: No abdominal tenderness and Yes Soft to palpation Neuro: General: oriented to person, oriented to place and oriented to time Extrem: Right lower extremity: edema Left lower extremity: edema Other: Mild edema of both legs Objective Data Vital Signs Vital Signs: Vital Signs - 24 hr 07/22/24 08:04 07/22/24 08:10 07/22/24 08:41 Temperature 97.5 F L Pulse Rate 152 H 144 H Pulse Rate [Monitor] Respiratory Rate 24 H Blood Pressure 103/77 122/71 Pulse Oximetry 100 100 Oxygen Delivery Room Air Room Air 07/22/24 08:52 07/22/24 08:57 07/22/24 09:08 Temperature 97.9 F Pulse Rate 136 H 141 H 140 H Pulse Rate [Monitor] Respiratory Rate 32 H Blood Pressure 105/90 107/85 Pulse Oximetry 96 Oxygen Delivery 07/22/24 10:22 07/22/24 10:31 07/22/24 11:16 Temperature 97.8 F 97.8 F Pulse Rate 135 H 122 H 128 H Pulse Rate [Monitor] Respiratory Rate 26 H 26 H Blood Pressure 125/81 107/96 H 106/92 H Pulse Oximetry 98 98 Oxygen Delivery 07/22/24 12:31 07/22/24 12:46 07/22/24 13:31 Temperature 98.1 F 97.8 F Pulse Rate 127 H 129 H 113 H Pulse Rate [Monitor] Respiratory Rate 25 H 32 H 30 H Blood Pressure 114/93 H 120/105 H 123/88 Pulse Oximetry 100 99 Oxygen Delivery 07/22/24 14:05 07/22/24 14:52 07/22/24 15:51 Temperature 97.8 F 98.3 F Pulse Rate 115 H 115 H 115 H Pulse Rate [Monitor] Respiratory Rate 23 H 20 Blood Pressure 125/85 130/93 H Pulse Oximetry 97 97 Oxygen Delivery 07/22/24 16:00 07/22/24 16:00 07/22/24 18:00 Temperature Pulse Rate 115 H 116 H Pulse Rate [Monitor] 110 H Respiratory Rate Blood Pressure 101/70 Pulse Oximetry Oxygen Delivery 07/22/24 18:00 07/22/24 18:00 07/22/24 18:16 Temperature 97.7 F Pulse Rate 116 H 116 H 116 H Pulse Rate [Monitor] Respiratory Rate 18 Blood Pressure 101/70 Pulse Oximetry 96 Oxygen Delivery 07/22/24 20:00 07/22/24 20:00 07/22/24 20:00 Temperature Pulse Rate 112 H 112 H Pulse Rate [Monitor] 112 H Respiratory Rate 18 Blood Pressure 113/69 Pulse Oximetry 95 Oxygen Delivery Room Air 07/22/24 20:00 07/22/24 20:15 07/22/24 22:00 Temperature 97.4 F L Pulse Rate 112 H 112 H 74 Pulse Rate [Monitor] Respiratory Rate 18 Blood Pressure 118/80 118/80 113/69 Pulse Oximetry 95 Oxygen Delivery 07/22/24 22:00 07/22/24 22:00 07/22/24 23:53 Temperature Pulse Rate 88 74 88 Pulse Rate [Monitor] Respiratory Rate Blood Pressure 113/69 Pulse Oximetry Oxygen Delivery 07/22/24 23:55 07/23/24 00:00 07/23/24 00:00 Temperature 98.0 F Pulse Rate 80 88 Pulse Rate [Monitor] 88 Respiratory Rate 18 18 Blood Pressure 107/68 107/68 Pulse Oximetry 93 93 Oxygen Delivery Room Air 07/23/24 00:00 07/23/24 00:00 07/23/24 01:45 Temperature Pulse Rate 88 80 87 Pulse Rate [Monitor] Respiratory Rate Blood Pressure 107/68 108/55 L Pulse Oximetry Oxygen Delivery 07/23/24 02:00 07/23/24 02:00 07/23/24 02:39 Temperature Pulse Rate 87 87 64 Pulse Rate [Monitor] Respiratory Rate Blood Pressure 108/55 L Pulse Oximetry Oxygen Delivery 07/23/24 02:39 07/23/24 03:34 07/23/24 03:34 Temperature Pulse Rate 64 78 Pulse Rate [Monitor] 74 Respiratory Rate 18 Blood Pressure 108/55 L Pulse Oximetry 93 Oxygen Delivery Room Air 07/23/24 03:34 07/23/24 03:38 07/23/24 03:39 Temperature 97.7 F Pulse Rate 78 65 78 Pulse Rate [Monitor] Respiratory Rate 18 Blood Pressure 106/77 106/77 Pulse Oximetry 91 Oxygen Delivery 07/23/24 05:46 07/23/24 06:00 07/23/24 06:00 Temperature Pulse Rate 86 76 82 Pulse Rate [Monitor] Respiratory Rate Blood Pressure 113/58 L 113/58 L Pulse Oximetry Oxygen Delivery 07/23/24 06:17 Temperature Pulse Rate 82 Pulse Rate [Monitor] Respiratory Rate Blood Pressure Pulse Oximetry Oxygen Delivery Intake/Output Intake/Output: Intake & Output 07/20/24 07/21/24 07/22/24 07/23/24 23:59 23:59 23:59 23:59 Intake Total 563.9 528.2 Output Total 1400 400 Balance -836.1 128.2 Meds/Results Medications: Active Medications Generic Name Dose Route Start Last Admin Trade Name Freq PRN Reason Stop Dose Admin Acetaminophen 650 mg 07/22/24 15:46 Acetaminophen 325 Mg Tablet PO Q6H PRN Mild Pain (1-3) or Fever Hydrocodone Bitart/Acetaminophen 1 tab 07/22/24 15:46 07/22/24 16:44 Hydrocodone/Acetaminophen (*Crx) 5-325 Mg Tablet PO 1 tab Q6H PRN Administration Pain Rated 4-6 Amiodarone HCl 200 mg 07/23/24 09:00 Amiodarone Hcl 200 Mg Tablet PO BID [facility] Apixaban 5 mg 07/23/24 09:00 Apixaban 5 Mg Tablet PO Q12HR MARK Chlordiazepoxide HCl 25 mg 07/22/24 13:10 Chlordiazepoxide (*Crx) 25 Mg Capsule PO Q6H PRN Withdrawal Folic Acid 1 mg 07/22/24 13:20 07/22/24 14:49 Folic Acid 1 Mg Tablet PO 1 mg DAILY MARK Administration Furosemide 40 mg 07/22/24 17:00 07/22/24 18:15 Furosemide Inj 40 Mg/4 Ml Vial IV PUSH 40 mg BID MARK Administration Heparin Sodium (Porcine) 7,000 units 07/22/24 08:30 07/22/24 15:28 Heparin Sodium 5,000 Units/Ml Vial IV PUSH 7,000 units PRN PRN Administration aPTT less than 55 seconds Heparin Sodium (Porcine) 3,500 units 07/22/24 08:30 07/23/24 01:58 Heparin Sodium 5,000 Units/Ml Vial IV PUSH 3,500 units PRN PRN Administration aPTT 55 - 70 seconds Lorazepam 2 mg 07/22/24 13:10 Lorazepam Inj (*Crx) 2 Mg/Ml Vial IV PUSH Q4H PRN CIWA 8-15 Metoprolol Tartrate 25 mg 07/23/24 09:00 Metoprolol Tartrate 25 Mg Tablet PO BID [facility] Morphine Sulfate 2 mg 07/22/24 15:46 Morphine Sulfate (*Crx) 2 Mg/Ml Inj IV PUSH Q4H PRN Pain Rated 7-10 Perflutren Lipid Microsphere 0 ml 07/22/24 08:15 Perflutren Lipid Microspheres 1.5 Ml Vial Diluted To 10 Ml Total Volume IV PUSH 07/25/24 08:15 ONCE PRN adequate visualization Protocol Perflutren Lipid Microsphere 0 ml 07/22/24 19:43 Perflutren Lipid Microspheres 1.5 Ml Vial Diluted To 10 Ml Total Volume IV PUSH 07/25/24 19:43 ONCE PRN adequate visualization Protocol Sodium Chloride 1 gm 07/22/24 13:20 07/22/24 14:49 Sodium Chloride 1 Gm Tablet PO 1 gm DAILY MARK Administration Thiamine HCl 100 mg 07/22/24 13:20 07/22/24 14:49 Thiamine Hcl 100 Mg Tablet PO 100 mg QAM MARK Administration Radiology Results: ITS Impressions Chest CTA 07/22/24 09:58 IMPRESSION: 1. No pulmonary embolus. 2. Mild pulmonary edema. 3. Moderate-sized pleural effusions. ADDENDUM: 07/22/24 1020 There is a 10 mm nodule in left upper lobe, which may be infection or neoplasm. Noncontrast low-dose chest CT is recommended in 3 months. Chest X-Ray 07/22/24 10:16 IMPRESSION: 1. 10 mm nodule at left lung upper lobe, which may be infection or neoplasm. Noncontrast low-dose chest CT is recommended in 3 months. 2. Airspace opacities at the lung bases, likely atelectasis. 3. Moderate-sized pleural effusions. 4. Cardiomegaly. Labs Labs: Laboratory Results - last 24 hr 07/22/24 07/22/24 07/22/24 08:08 11:04 14:27 WBC 8.3 RBC 3.87 L Hgb 14.1 Hct 41.5 L MCV 107.2 H MCH 36.4 H MCHC 34.0 RDW 12.7 Plt Count 264 MPV 9.7 Immature Gran % (Auto) 0.5 Neut % (Auto) 67.2 Lymph % (Auto) 18.9 [place] % (Auto) 12.4 H Eos % (Auto) 0.5 Baso % (Auto) 0.5 Lymph # (Auto) 1.58 [place] # (Auto) 1.0 H Eos # (Auto) 0.0 Baso # (Auto) 0.0 Abs Immat Gran (auto) 0.04 H Absolute Neuts (auto) 5.6 Absolute Nucleated RBC 0.000 Band Neutrophils % Not Reportable Nucleated RBC % 0.0 Platelet Estimate Adequate Anisocytosis 1+ Macrocytosis 1+ Schistocytes None seen PT 14.1 15.1 H INR 1.0 1.1 APTT 28.8 109.7 H Sodium 130 L Potassium 4.3 Chloride 95 L Carbon Dioxide 22 Anion Gap 13 H BUN 11 Creatinine 0.83 Estim Creat Clear Calc 78 Estimated GFR > 60 Glucose 123 H Calcium 9.4 Magnesium Total Bilirubin 1.6 H AST 27 ALT 18 Alkaline Phosphatase 69 Troponin I 0.029 0.022 D NT-Pro-B Natriuret Pep 5340 H Total Protein 8.0 Albumin 4.4 TSH (Reflex) 4.040 Free T4 1.92 Total T3 1.11 07/22/24 07/23/24 07/23/24 18:00 00:50 03:59 WBC 8.3 RBC 3.59 L Hgb 12.8 L Hct 38.2 L MCV 106.4 H MCH 35.7 H MCHC 33.5 RDW 12.8 Plt Count 231 MPV 10.5 H Immature Gran % (Auto) 0.5 Neut % (Auto) 70.6 Lymph % (Auto) 13.7 L [place] % (Auto) 14.1 H Eos % (Auto) 0.6 Baso % (Auto) 0.5 Lymph # (Auto) 1.14 [place] # (Auto) 1.2 H Eos # (Auto) 0.1 Baso # (Auto) 0.0 Abs Immat Gran (auto) 0.04 H Absolute Neuts (auto) 5.9 Absolute Nucleated RBC 0.000 Band Neutrophils % Nucleated RBC % 0.0 Platelet Estimate Anisocytosis Macrocytosis Schistocytes PT INR APTT 92.4 H 57.8 H Sodium 129 L Potassium 3.3 L Chloride 96 L Carbon Dioxide 21 L Anion Gap 12 BUN 13 Creatinine 0.81 Estim Creat Clear Calc 80 Estimated GFR > 60 Glucose 119 H Calcium 8.4 Magnesium 1.6 Total Bilirubin 0.8 AST 20 ALT 13 Alkaline Phosphatase 59 Troponin I NT-Pro-B Natriuret Pep Total Protein 6.0 L Albumin 3.5 TSH (Reflex) Free T4 Total T3
[2024-07-23 08:18] LABS: Partial Thromboplastin Time 99.4 Seconds (22.3-36.8)
--- NOTE | 2024-07-23 08:30 | P.PNIM_ITS ---
Progress Note: A&P Assessment and Plan (1) Atrial fibrillation with rapid ventricular response: Code(s): I48.91 - Unspecified atrial fibrillation Status: Acute Assessment and Plan: - EKG, initial: AFib with RVR, nonspecific ST and T-wave abnormality, rate 152. - echo (04/2023): EF >70%, mild LVH, grade I diastolic dysfunction (E/e' 14), mild LAE, severe (OBED 0.9 cm2, mean 67 mmHg), mod MAC, mild MR/TR RVSP 50 mmHg. update echo - started on amiodarone gtt - check TSH - filling layer up consulted, Zachariah SOTO. provided the following recs: CHADSVasc 3 -> started on heparin gtt Amiodarone gtt -> Metoprolol PO once NSR restored Echo - telemetry monitoring, IMU (2) Congestive heart failure: Qualifiers: Heart failure chronicity: unspecified Heart failure type: diastolic Qualified Code(s): I50.30 - Unspecified diastolic (congestive) heart failure Code(s): I50.9 - Heart failure, unspecified Status: Acute Assessment and Plan: - Hx of grade 1 diastolic dysfunction, on Lasix 40 mg p.o. b.i.d. Suspect current exacerbation. - BNP 5340 - most recent echo (04/2023): EF >70%, mild LVH, grade I diastolic dysfunction - Lasix 80 mg IV -> 40 IV BID - monitor I&Os and daily weights - trend renal function (3) Alcohol use disorder: Code(s): F10.90 - Alcohol use, unspecified, uncomplicated Status: Chronic Assessment and Plan: - daily ETOH use: 4-5 beers, 1-2 glasses of wine, 1-2 glasses of scotch daily. - no previous withdrawal symptoms with cessation - CIWA protocol in place Ativan PRN Librium prn seizure precautions neurochecks Q4H - antiemetics PRN - start thiamine and folic acid p.o. (4) Essential hypertension: Code(s): I10 - Essential (primary) hypertension Status: Chronic Assessment and Plan: - chronic, currently soft at 114/93 - hold home medications, resume when appropriate. - monitor Plan History of chronic hyponatremia. Currently 130. Will continue NaCl 1G tab daily. Monitor. Diet: Heart healthy GI Prophylaxis: Not currently indicated DVT Prophylaxis: Heparin gtt Lines: Peripheral Code Status: Full code Subjective Date/time seen: 07/23/24 08:30 Interval history: Interval history:73 y/o M presents here with shortness of breath with PMH of hypertension, aortic stenosis, chronic hyponatremia, and alcohol use disorder. Patient was admitted in the setting of shortness of breath. Patient has bilateral lower extremity edema. Of note, the patient had a greater tuberosity fracture with displacement/dislocation that was reduced at [facility] at the end of May. He had a brief O2 requirement requiring observation. CT showed small bilateral pleural effusions with asymmetric left greater than right dependent ground-glass and consolidative opacities that likely represent component of atelectasis, aspiration, and pulmonary edema given septal line thickening. He was started on a 7 day course of Levaquin. He followed up with the orthopedist at [facility] on 07/08, elected to move forward with nonsurgical management. Current daily alcohol use - 4-5 beers, 1-2 glasses of wine, 1-2 glasses of scotch daily. Denies previous withdrawal symptoms with cessation. He reports a cardiac history significant for aortic stenosis and hypertension, currently on amlodipine and losartan. 07/23: Currently. Abdomen around drip and started amiodarone 200 mg p.o. b.i.d.. Stop the heparin drip and started Eliquis 5 mg b.i.d.. Cardiology also decreased metoprolol to 25 mg b.i.d. patient endorses alcohol every day 4-5 beers and sometimes hard liquor Review of Systems Review of Systems: All systems reviewed & are unremarkable except as noted in HPI and below Exam Const: General: comfortable and no acute distress Other: , male, chronically ill-appearing HENMT: Face/Nose/Sinus: Normal nares present Mouth: Yes moist mucous membranes Eyes: General: appearance normal, both eyes and all related structures Sclera: sclerae normal Pupils: Equal, round and reactive pupils present EOM: EOMs intact bilaterally Resp: Effort & Inspection: normal respiratory effort Auscultation: clear to auscultation bilaterally Cardio: Rate: tachycardic Rhythm: abnormal rhythm Other: Findings consistent with AFib RVR. No overt murmur or rub. GI: Other: Abdomen rounded, soft, nontender. Skin: General skin exam: normal color and no rashes or lesions noted Wounds: no wounds Neuro: Cranial nerves: Yes Equal, round and reactive pupils present Speech: normal speech Motor exam (neuro): 5/5 motor strength present throughout Sensory Exam: normal sensation Other: A&O x4, no tremor on exam. Extrem: Other: 2+ pitting edema, symmetric, extents jus t distal to the knees, bilateral. Psych: Mental Status: mental status grossly normal Affect: normal affect Other: Good insight and judgment, pleasant Objective Data Vital Signs Vital Signs: Vital Signs - 24 hr 07/22/24 08:41 07/22/24 08:52 07/22/24 08:57 Temperature 97.9 F Pulse Rate 144 H 136 H 141 H Pulse Rate [Monitor] Respiratory Rate 32 H Blood Pressure 122/71 105/90 Pulse Oximetry 96 Oxygen Delivery 07/22/24 09:08 07/22/24 10:22 07/22/24 10:31 Temperature 97.8 F Pulse Rate 140 H 135 H 122 H Pulse Rate [Monitor] Respiratory Rate 26 H Blood Pressure 107/85 125/81 107/96 H Pulse Oximetry 98 Oxygen Delivery 07/22/24 11:16 07/22/24 12:31 07/22/24 12:46 Temperature 97.8 F 98.1 F 97.8 F Pulse Rate 128 H 127 H 129 H Pulse Rate [Monitor] Respiratory Rate 26 H 25 H 32 H Blood Pressure 106/92 H 114/93 H 120/105 H Pulse Oximetry 98 100 99 Oxygen Delivery 07/22/24 13:31 07/22/24 14:05 07/22/24 14:52 Temperature 97.8 F Pulse Rate 113 H 115 H 115 H Pulse Rate [Monitor] Respiratory Rate 30 H 23 H Blood Pressure 123/88 125/85 Pulse Oximetry 97 Oxygen Delivery 07/22/24 15:51 07/22/24 16:00 07/22/24 16:00 Temperature 98.3 F Pulse Rate 115 H 115 H Pulse Rate [Monitor] 110 H Respiratory Rate 20 Blood Pressure 130/93 H Pulse Oximetry 97 Oxygen Delivery 07/22/24 18:00 07/22/24 18:00 07/22/24 18:00 Temperature 97.7 F Pulse Rate 116 H 116 H 116 H Pulse Rate [Monitor] Respiratory Rate 18 Blood Pressure 101/70 101/70 Pulse Oximetry 96 Oxygen Delivery 07/22/24 18:16 07/22/24 20:00 07/22/24 20:00 Temperature Pulse Rate 116 H 112 H Pulse Rate [Monitor] 112 H Respiratory Rate 18 Blood Pressure 113/69 Pulse Oximetry 95 Oxygen Delivery Room Air 07/22/24 20:00 07/22/24 20:00 07/22/24 20:15 Temperature 97.4 F L Pulse Rate 112 H 112 H 112 H Pulse Rate [Monitor] Respiratory Rate 18 Blood Pressure 118/80 118/80 Pulse Oximetry 95 Oxygen Delivery 07/22/24 22:00 07/22/24 22:00 07/22/24 22:00 Temperature Pulse Rate 74 88 74 Pulse Rate [Monitor] Respiratory Rate Blood Pressure 113/69 113/69 Pulse Oximetry Oxygen Delivery 07/22/24 23:53 07/22/24 23:55 07/23/24 00:00 Temperature 98.0 F Pulse Rate 88 80 Pulse Rate [Monitor] 88 Respiratory Rate 18 Blood Pressure 107/68 107/68 Pulse Oximetry 93 Oxygen Delivery 07/23/24 00:00 07/23/24 00:00 07/23/24 00:00 Temperature Pulse Rate 88 88 80 Pulse Rate [Monitor] Respiratory Rate 18 Blood Pressure 107/68 Pulse Oximetry 93 Oxygen Delivery Room Air 07/23/24 01:45 07/23/24 02:00 07/23/24 02:00 Temperature Pulse Rate 87 87 87 Pulse Rate [Monitor] Respiratory Rate Blood Pressure 108/55 L 108/55 L Pulse Oximetry Oxygen Delivery 07/23/24 02:39 07/23/24 02:39 07/23/24 03:34 Temperature Pulse Rate 64 64 Pulse Rate [Monitor] 74 Respiratory Rate Blood Pressure 108/55 L Pulse Oximetry Oxygen Delivery 07/23/24 03:34 07/23/24 03:34 07/23/24 03:38 Temperature 97.7 F Pulse Rate 78 78 65 Pulse Rate [Monitor] Respiratory Rate 18 18 Blood Pressure 106/77 Pulse Oximetry 93 91 Oxygen Delivery Room Air 07/23/24 03:39 07/23/24 05:46 07/23/24 06:00 Temperature Pulse Rate 78 86 76 Pulse Rate [Monitor] Respiratory Rate Blood Pressure 106/77 113/58 L Pulse Oximetry Oxygen Delivery 07/23/24 06:00 07/23/24 06:17 Temperature Pulse Rate 82 82 Pulse Rate [Monitor] Respiratory Rate Blood Pressure 113/58 L Pulse Oximetry Oxygen Delivery Intake/Output Intake/Output: Intake & Output 07/20/24 07/21/24 07/22/24 07/23/24 23:59 23:59 23:59 23:59 Intake Total 563.9 528.2 Output Total 1400 400 Balance -836.1 128.2 Meds/Results Medications: Active Medications Generic Name Dose Route Start Last Admin Trade Name Freq PRN Reason Stop Dose Admin Acetaminophen 650 mg 07/22/24 15:46 Acetaminophen 325 Mg Tablet PO Q6H PRN Mild Pain (1-3) or Fever Hydrocodone Bitart/Acetaminophen 1 tab 07/22/24 15:46 07/22/24 16:44 Hydrocodone/Acetaminophen (*Crx) 5-325 Mg Tablet PO 1 tab Q6H PRN Administration Pain Rated 4-6 Amiodarone HCl 200 mg 07/23/24 09:00 Amiodarone Hcl 200 Mg Tablet PO BID [facility] Apixaban 5 mg 07/23/24 09:00 Apixaban 5 Mg Tablet PO Q12HR [facility] Chlordiazepoxide HCl 25 mg 07/22/24 13:10 Chlordiazepoxide (*Crx) 25 Mg Capsule PO Q6H PRN Withdrawal Folic Acid 1 mg 07/22/24 13:20 07/22/24 14:49 Folic Acid 1 Mg Tablet PO 1 mg DAILY [facility] Administration Furosemide 40 mg 07/22/24 17:00 07/22/24 18:15 Furosemide Inj 40 Mg/4 Ml Vial IV PUSH 40 mg BID MARK Administration Heparin Sodium (Porcine) 7,000 units 07/22/24 08:30 07/22/24 15:28 Heparin Sodium 5,000 Units/Ml Vial IV PUSH 7,000 units PRN PRN Administration aPTT less than 55 seconds Heparin Sodium (Porcine) 3,500 units 07/22/24 08:30 07/23/24 01:58 Heparin Sodium 5,000 Units/Ml Vial IV PUSH 3,500 units PRN PRN Administration aPTT 55 - 70 seconds Lorazepam 2 mg 07/22/24 13:10 Lorazepam Inj (*Crx) 2 Mg/Ml Vial IV PUSH Q4H PRN CIWA 8-15 Metoprolol Tartrate 25 mg 07/23/24 17:00 Metoprolol Tartrate 25 Mg Tablet PO BID [facility] Morphine Sulfate 2 mg 07/22/24 15:46 Morphine Sulfate (*Crx) 2 Mg/Ml Inj IV PUSH Q4H PRN Pain Rated 7-10 Perflutren Lipid Microsphere 0 ml 07/22/24 19:43 Perflutren Lipid Microspheres 1.5 Ml Vial Diluted To 10 Ml Total Volume IV PUSH 07/25/24 19:43 ONCE PRN adequate visualization Protocol Sodium Chloride 1 gm 07/22/24 13:20 07/22/24 14:49 Sodium Chloride 1 Gm Tablet PO 1 gm DAILY MARK Administration Thiamine HCl 100 mg 07/22/24 13:20 07/22/24 14:49 Thiamine Hcl 100 Mg Tablet PO 100 mg QAM MARK Administration Radiology Results: ITS Impressions Chest CTA 07/22/24 09:58 IMPRESSION: 1. No pulmonary embolus. 2. Mild pulmonary edema. 3. Moderate-sized pleural effusions. ADDENDUM: 07/22/24 1020 There is a 10 mm nodule in left upper lobe, which may be infection or neoplasm. Noncontrast low-dose chest CT is recommended in 3 months. Chest X-Ray 07/22/24 10:16 IMPRESSION: 1. 10 mm nodule at left lung upper lobe, which may be infection or neoplasm. Noncontrast low-dose chest CT is recommended in 3 months. 2. Airspace opacities at the lung bases, likely atelectasis. 3. Moderate-sized pleural effusions. 4. Cardiomegaly. Labs Labs: Laboratory Results - last 24 hr 07/22/24 07/22/24 07/22/24 08:08 11:04 14:27 WBC 8.3 RBC 3.87 L Hgb 14.1 Hct 41.5 L MCV 107.2 H MCH 36.4 H MCHC 34.0 RDW 12.7 Plt Count 264 MPV 9.7 Immature Gran % (Auto) 0.5 Neut % (Auto) 67.2 Lymph % (Auto) 18.9 [place] % (Auto) 12.4 H Eos % (Auto) 0.5 Baso % (Auto) 0.5 Lymph # (Auto) 1.58 [place] # (Auto) 1.0 H Eos # (Auto) 0.0 Baso # (Auto) 0.0 Abs Immat Gran (auto) 0.04 H Absolute Neuts (auto) 5.6 Absolute Nucleated RBC 0.000 Band Neutrophils % Not Reportable Nucleated RBC % 0.0 Platelet Estimate Adequate Anisocytosis 1+ Macrocytosis 1+ Schistocytes None seen PT 14.1 15.1 H INR 1.0 1.1 APTT 28.8 109.7 H Sodium Potassium Chloride Carbon Dioxide Anion Gap BUN Creatinine Estim Creat Clear Calc Estimated GFR Glucose Calcium Magnesium Total Bilirubin AST ALT Alkaline Phosphatase Troponin I 0.029 0.022 D NT-Pro-B Natriuret Pep 5340 H Total Protein Albumin TSH (Reflex) 4.040 Free T4 1.92 Total T3 1.11 07/22/24 07/23/24 07/23/24 18:00 00:50 03:59 WBC 8.3 RBC 3.59 L Hgb 12.8 L Hct 38.2 L MCV 106.4 H MCH 35.7 H MCHC 33.5 RDW 12.8 Plt Count 231 MPV 10.5 H Immature Gran % (Auto) 0.5 Neut % (Auto) 70.6 Lymph % (Auto) 13.7 L [place] % (Auto) 14.1 H Eos % (Auto) 0.6 Baso % (Auto) 0.5 Lymph # (Auto) 1.14 [place] # (Auto) 1.2 H Eos # (Auto) 0.1 Baso # (Auto) 0.0 Abs Immat Gran (auto) 0.04 H Absolute Neuts (auto) 5.9 Absolute Nucleated RBC 0.000 Band Neutrophils % Nucleated RBC % 0.0 Platelet Estimate Anisocytosis Macrocytosis Schistocytes PT INR APTT 92.4 H 57.8 H Sodium 129 L Potassium 3.3 L Chloride 96 L Carbon Dioxide 21 L Anion Gap 12 BUN 13 Creatinine 0.81 Estim Creat Clear Calc 80 Estimated GFR > 60 Glucose 119 H Calcium 8.4 Magnesium 1.6 Total Bilirubin 0.8 AST 20 ALT 13 Alkaline Phosphatase 59 Troponin I NT-Pro-B Natriuret Pep Total Protein 6.0 L Albumin 3.5 TSH (Reflex) Free T4 Total T3 07/23/24 07:59 WBC RBC Hgb Hct MCV MCH MCHC RDW Plt Count MPV Immature Gran % (Auto) Neut % (Auto) Lymph % (Auto) Branch % (Auto) Eos % (Auto) Baso % (Auto) Lymph # (Auto) Branch # (Auto) Eos # (Auto) Baso # (Auto) Abs Immat Gran (auto) Absolute Neuts (auto) Absolute Nucleated RBC Band Neutrophils % Nucleated RBC % Platelet Estimate Anisocytosis Macrocytosis Schistocytes PT INR APTT 99.4 H Sodium Potassium Chloride Carbon Dioxide Anion Gap BUN Creatinine Estim Creat Clear Calc Estimated GFR Glucose Calcium Magnesium Total Bilirubin AST ALT Alkaline Phosphatase Troponin I NT-Pro-B Natriuret Pep Total Protein Albumin TSH (Reflex) Free T4 Total T3 Quality VTE Prophylaxis VTE prophylaxis: pharmacologic ordered Hospitalist MIPS Advance Care Plan I have confirmed that the patient's Advanced Care Plan is present, code status is documented, or surrogate decision maker is listed in patient medical record.: Yes Medication Reconciliation I have utilized all available resources to obtain, update and review the patients current medications (includes all prescriptions, OTC, herbals, cannabis, and nutritional supplements).: Yes
[2024-07-23] MEDS: APIXABAN 5 MG TABLET PO ×2 (10:10→20:34)
[2024-07-23] MEDS: AMIODARONE HCL 200 MG TABLET PO ×2 (10:10→17:39)
[2024-07-23] MEDS: FOLIC ACID 1 MG TABLET PO (10:10)
[2024-07-23] MEDS: SODIUM CHLORIDE 1 GM TABLET PO (10:10)
[2024-07-23] MEDS: THIAMINE HCL 100 MG TABLET PO (10:11)
[2024-07-23] MEDS: FUROSEMIDE INJ 40 MG/4 ML VIAL IV PUSH ×2 (10:16→17:41)
[2024-07-23] MEDS: PERFLUTREN LIPID MICROSPHERES 1.5 ML VIAL DILUTED TO 10 ML TOTAL VOLUME IV PUSH (11:45)
--- NOTE | 2024-07-23 12:12 | IVDEFINITY ---
Prior to administration of IV Definity the patient was educated on the risks and benefits of the imaging enhancing agent including potential adverse side effects. The patient verbalized understanding. Allergies were verified. No exclusion criteria were identified and at least one of the following inclusion criteria were met: 1) physician request, 2) patient technically difficult to image (per the [place] [employer] guidelines of two or more segments not discernable within the apical view), or 3) questionable left ventricular function. ?
[2024-07-23] MEDS: LORazepam INJ (*CRX) 2 MG/ML VIAL IV PUSH (21:26)
[2024-07-24] VITALS (26 sets, daily range): BP systolic 99–129; BP diastolic 69–90; PULSE 84–152; RESP 16–28; TEMP 36.3–37.2; O2SAT 90–96
--- NOTE | 2024-07-24 00:12 | ECG_ITS ---
Test Date: 2024-07-24 00:18:03 Measurements Intervals [place] Rate: 137 P: 0 [place]: 0 QRS: 44 QRSD: 94 T: -60 QT: 295 QTc: 446 Interpretive Statements ATRIAL FIBRILLATION WITH RAPID VENTRICULAR RESPONSE NONSPECIFIC ST & T-WAVE ABNORMALITY Compared to ECG 07/23/2024 09:39:03 Sinus rhythm no longer present Sinus arrhythmia no longer present Possible ischemia no longer present T-wave abnormality still present Electronically Signed On 07-24-2024 11:44:54 CDT by Ad Calderon M.D.
[2024-07-24] MEDS: AMIODARONE 150 MG/D5W 100 ML 150 MG/100 ML BAG 600 MG IV CONT (00:42)
[2024-07-24] MEDS: AMIODARONE 360 MG/D5W 200 ML 360 MG/200 ML BAG 33.33 MG IV CONT (00:55)
[2024-07-24] MEDS: AMIODARONE 360 MG/D5W 200 ML 360 MG/200 ML BAG 16.67 MG IV CONT ×2 (06:49→17:34)
--- NOTE | 2024-07-24 08:04 | P.PNCA_ITS ---
Progress Note: A&P Assessment and Plan (1) PAF (paroxysmal atrial fibrillation): Code(s): I48.0 - Paroxysmal atrial fibrillation Status: Acute Assessment and Plan: Back in atrial fibrillatioin. New onset. Probably age related. [id number] 3. Starting Heparin drip. Start Amiodarone drip to restore sinus rhythm. Start Metoprolol for rate control. Change back to Amiodarone IV and Metoprolol Tartate 25 mg PO every 6 hours. Change Eliquis to Lovenox for anticipation of invasive procedures. (2) Essential hypertension: Code(s): I10 - Essential (primary) hypertension Status: Chronic Assessment and Plan: Stable. (3) Congestive heart failure: Qualifiers: Heart failure type: diastolic Heart failure chronicity: unspecified Qualified Code(s): I50.30 - Unspecified diastolic (congestive) heart failure Code(s): I50.9 - Heart failure, unspecified Status: Acute Assessment and Plan: Acute systolic and diastolic heart failure. 07/23/24 Echo: EF 35-40%, mod LVE, severe LAE, mild GIOVANNA, critical with valve area of 0.47 cm2, DI 0.17, severe MAC, mild MR, trace TR, RVSP 46 mmHg. On Lasix 40 mg IV BID. (4) Aortic stenosis: Code(s): I35.0 - Nonrheumatic aortic (valve) stenosis Status: Acute Assessment and Plan: Critical. Discuss need for AVR and he is agreeable to be transferred to [facility] for it. Subjective Date/time seen: 07/24/24 08:04 Interval history: Denies chest pain or sob. Exam Const: General: cooperative, healthy appearing and comfortable Orientation/consciousness: oriented to person, oriented to place and oriented to time Resp: Auscultation: crackles, no rhonchi and no wheezes Cardio: Rate: tachycardic Rhythm: abnormal rhythm Heart sounds: Murmur heart sound present (III/ systolic murmur RICS) Peripheral pulses: dorsalis pedis present GI: GI Palp: No abdominal tenderness and Yes Soft to palpation Neuro: General: oriented to person, oriented to place and oriented to time Extrem: Right lower extremity: edema Left lower extremity: edema Other: Mild edema of both legs Objective Data Vital Signs Vital Signs: Vital Signs - 24 hr 07/23/24 08:50 07/23/24 08:50 07/23/24 08:50 Temperature Pulse Rate 80 81 Pulse Rate [Monitor] 81 Respiratory Rate Blood Pressure 109/58 L Pulse Oximetry Oxygen Delivery Room Air 07/23/24 10:00 07/23/24 10:10 07/23/24 12:00 Temperature 97.4 F L Pulse Rate 88 88 98 Pulse Rate [Monitor] Respiratory Rate 20 Blood Pressure 98/49 L Pulse Oximetry 95 Oxygen Delivery 07/23/24 12:10 07/23/24 12:10 07/23/24 14:00 Temperature Pulse Rate 99 93 Pulse Rate [Monitor] 102 H Respiratory Rate Blood Pressure 98/49 L Pulse Oximetry Oxygen Delivery 07/23/24 16:00 07/23/24 16:05 07/23/24 16:05 Temperature 97.5 F L Pulse Rate 94 113 H Pulse Rate [Monitor] 94 Respiratory Rate 20 20 Blood Pressure 114/81 114/81 Pulse Oximetry 92 92 Oxygen Delivery 07/23/24 17:39 07/23/24 17:39 07/23/24 18:00 Temperature Pulse Rate 108 H 108 H 94 Pulse Rate [Monitor] Respiratory Rate Blood Pressure Pulse Oximetry Oxygen Delivery 07/23/24 20:00 07/23/24 20:00 07/23/24 20:00 Temperature 98.2 F Pulse Rate 86 88 Pulse Rate [Monitor] 88 Respiratory Rate 20 20 Blood Pressure 106/62 106/62 Pulse Oximetry 91 91 Oxygen Delivery Room Air 07/23/24 20:00 07/23/24 22:00 07/24/24 00:00 Temperature 97.8 F Pulse Rate 88 90 92 Pulse Rate [Monitor] Respiratory Rate 20 Blood Pressure 114/90 Pulse Oximetry 93 Oxygen Delivery 07/24/24 00:00 07/24/24 00:00 07/24/24 00:00 Temperature Pulse Rate 152 H 152 H Pulse Rate [Monitor] 150 H Respiratory Rate 20 Blood Pressure 114/90 Pulse Oximetry 93 Oxygen Delivery Room Air 07/24/24 00:42 07/24/24 00:55 07/24/24 02:00 Temperature Pulse Rate 152 H 132 H 144 H Pulse Rate [Monitor] Respiratory Rate Blood Pressure 114/90 114/90 104/80 Pulse Oximetry Oxygen Delivery 07/24/24 02:00 07/24/24 02:00 07/24/24 03:41 Temperature 98.2 F Pulse Rate 144 H 130 H 130 H Pulse Rate [Monitor] Respiratory Rate 20 Blood Pressure 104/80 116/81 Pulse Oximetry 93 Oxygen Delivery 07/24/24 04:00 07/24/24 04:00 07/24/24 04:00 Temperature Pulse Rate 121 H 121 H Pulse Rate [Monitor] 121 H Respiratory Rate 20 Blood Pressure 116/81 Pulse Oximetry 93 Oxygen Delivery Room Air 07/24/24 04:00 07/24/24 06:00 07/24/24 06:00 Temperature Pulse Rate 121 H 117 H 132 H Pulse Rate [Monitor] Respiratory Rate Blood Pressure 116/81 110/75 Pulse Oximetry Oxygen Delivery 07/24/24 06:00 07/24/24 06:49 Temperature Pulse Rate 117 H 121 H Pulse Rate [Monitor] Respiratory Rate Blood Pressure 110/75 110/75 Pulse Oximetry Oxygen Delivery Intake/Output Intake/Output: Intake & Output 07/21/24 07/22/24 07/23/24 07/24/24 23:59 23:59 23:59 23:59 Intake Total 563.9 2088.2 519.5 Output Total 1400 1000 300 Balance -836.1 1088.2 219.5 Meds/Results Medications: Active Medications Generic Name Dose Route Start Last Admin Trade Name Mananq PRN Reason Stop Dose Admin Acetaminophen 650 mg 07/22/24 15:46 Acetaminophen 325 Mg Tablet PO Q6H PRN Mild Pain (1-3) or Fever Hydrocodone Bitart/Acetaminophen 1 tab 07/22/24 15:46 07/22/24 16:44 Hydrocodone/Acetaminophen (*Crx) 5-325 Mg Tablet PO 1 tab Q6H PRN Administration Pain Rated 4-6 Amiodarone HCl 200 mg 07/23/24 09:00 07/23/24 17:39 Amiodarone Hcl 200 Mg Tablet PO 200 mg BID MARK Administration Chlordiazepoxide HCl 25 mg 07/22/24 13:10 Chlordiazepoxide (*Crx) 25 Mg Capsule PO Q6H PRN Withdrawal Folic Acid 1 mg 07/22/24 13:20 07/23/24 10:10 Folic Acid 1 Mg Tablet PO 1 mg DAILY MARK Administration Furosemide 40 mg 07/22/24 17:00 07/23/24 17:41 Furosemide Inj 40 Mg/4 Ml Vial IV PUSH 40 mg BID MARK Administration Amiodarone HCl/Dextrose 360 mg in 200 mls @ 16.667 mls/hr 07/24/24 06:34 07/24/24 06:49 Nexterone 360 Mg/D5w 200 Ml IV CONT 0.5 mg/min .Q12H MARK 16.67 mls/hr Administration 0.5 MG/MIN Lorazepam 2 mg 07/22/24 13:10 07/23/24 21:26 Lorazepam Inj (*Crx) 2 Mg/Ml Vial IV PUSH 2 mg Q4H PRN Administration CIWA 8-15 Metoprolol Tartrate 25 mg 07/24/24 12:00 Metoprolol Tartrate 25 Mg Tablet PO Q6HR MARK Morphine Sulfate 2 mg 07/22/24 15:46 Morphine Sulfate (*Crx) 2 Mg/Ml Inj IV PUSH Q4H PRN Pain Rated 7-10 Sodium Chloride 1 gm 07/22/24 13:20 07/23/24 10:10 Sodium Chloride 1 Gm Tablet PO 1 gm DAILY MARK Administration Thiamine HCl 100 mg 07/22/24 13:20 07/23/24 10:11 Thiamine Hcl 100 Mg Tablet PO 100 mg QAM MARK Administration Radiology Results: ITS Impressions Chest CTA 07/22/24 09:58 IMPRESSION: 1. No pulmonary embolus. 2. Mild pulmonary edema. 3. Moderate-sized pleural effusions. ADDENDUM: 07/22/24 1020 There is a 10 mm nodule in left upper lobe, which may be infection or neoplasm. Noncontrast low-dose chest CT is recommended in 3 months. Chest X-Ray 07/22/24 10:16 IMPRESSION: 1. 10 mm nodule at left lung upper lobe, which may be infection or neoplasm. Noncontrast low-dose chest CT is recommended in 3 months. 2. Airspace opacities at the lung bases, likely atelectasis. 3. Moderate-sized pleural effusions. 4. Cardiomegaly. Labs Labs: Laboratory Results - last 24 hr 07/23/24 07:59 APTT 99.4 H
[2024-07-24] MEDS: ENOXAPARIN 100 MG/ML SYRINGE SUB-Q ×2 (09:39→20:31)
[2024-07-24] MEDS: FUROSEMIDE INJ 40 MG/4 ML VIAL IV PUSH ×2 (09:39→17:27)
[2024-07-24] MEDS: SODIUM CHLORIDE 1 GM TABLET PO (09:39)
[2024-07-24] MEDS: FOLIC ACID 1 MG TABLET PO (09:39)
[2024-07-24] MEDS: THIAMINE HCL 100 MG TABLET PO (09:39)
[2024-07-24] MEDS: METOPROLOL TARTRATE 25 MG TABLET PO ×3 (11:21→23:48)
--- NOTE | 2024-07-24 15:30 | P.PNIM_ITS ---
Progress Note: A&P Assessment and Plan (1) Atrial fibrillation with rapid ventricular response: Code(s): I48.91 - Unspecified atrial fibrillation Status: Acute Assessment and Plan: -back to AFib with RVR -transfer to [place] for AVR - EKG, initial: AFib with RVR, nonspecific ST and T-wave abnormality, rate 152. - echo (04/2023): EF >70%, mild LVH, grade I diastolic dysfunction (E/e' 14), mild LAE, severe (OBED 0.9 cm2, mean 67 mmHg), mod MAC, mild MR/TR RVSP 50 mmHg. update echo - started on amiodarone gtt - check TSH - body mechanic apprentice consulted, Zachariah SOTO. provided the following recs: CHADSVasc 3 -> started on heparin gtt Amiodarone gtt -> Metoprolol PO once NSR restored Echo - telemetry monitoring, IMU (2) Congestive heart failure: Qualifiers: Heart failure chronicity: unspecified Heart failure type: diastolic Qualified Code(s): I50.30 - Unspecified diastolic (congestive) heart failure Code(s): I50.9 - Heart failure, unspecified Status: Acute Assessment and Plan: - Hx of grade 1 diastolic dysfunction, on Lasix 40 mg p.o. b.i.d. Suspect current exacerbation. - BNP 5340 - most recent echo (04/2023): EF >70%, mild LVH, grade I diastolic dysfunction - Lasix 80 mg IV -> 40 IV BID - monitor I&Os and daily weights - trend renal function (3) Alcohol use disorder: Code(s): F10.90 - Alcohol use, unspecified, uncomplicated Status: Chronic Assessment and Plan: - daily ETOH use: 4-5 beers, 1-2 glasses of wine, 1-2 glasses of scotch daily. - no previous withdrawal symptoms with cessation - CIWA protocol in place Ativan PRN Librium prn seizure precautions neurochecks Q4H - antiemetics PRN - start thiamine and folic acid p.o. (4) Essential hypertension: Code(s): I10 - Essential (primary) hypertension Status: Chronic Assessment and Plan: - chronic, currently soft at 114/93 - hold home medications, resume when appropriate. - monitor Plan History of chronic hyponatremia. Currently 130. Will continue NaCl 1G tab daily. Monitor. Diet: Heart healthy GI Prophylaxis: Not currently indicated DVT Prophylaxis: Heparin gtt Lines: Peripheral Code Status: Full code Subjective Date/time seen: 07/24/24 15:30 Interval history: Patient is back in atrial fibrillation and started on amiodarone drip. Patient is currently on amiodarone 200 mg p.o. b.i.d. and enoxaparin 100 mg subQ b.i.d.. As per Cardiology patient will be transferred to [place] for aortic valve repair Review of Systems Review of Systems: All systems reviewed & are unremarkable except as noted in HPI and below Exam Const: General: comfortable and no acute distress Other: , male, chronically ill-appearing HENMT: Face/Nose/Sinus: Normal nares present Mouth: Yes moist mucous membranes Eyes: General: appearance normal, both eyes and all related structures Sclera: sclerae normal Pupils: Equal, round and reactive pupils present EOM: EOMs intact bilaterally Resp: Effort & Inspection: normal respiratory effort Auscultation: clear to auscultation bilaterally Cardio: Rate: tachycardic Rhythm: abnormal rhythm Other: Findings consistent with AFib RVR. No overt murmur or rub. GI: Other: Abdomen rounded, soft, nontender. Skin: General skin exam: normal color and no rashes or lesions noted Wounds: no wounds Neuro: Cranial nerves: Yes Equal, round and reactive pupils present Speech: normal speech Motor exam (neuro): 5/5 motor strength present throughout Sensory Exam: normal sensation Other: A&O x4, no tremor on exam. Extrem: Other: 2+ pitting edema, symmetric, extents jus t distal to the knees, bilateral. Psych: Mental Status: mental status grossly normal Affect: normal affect Other: Good insight and judgment, pleasant Objective Data Vital Signs Vital Signs: Vital Signs - 24 hr 07/23/24 16:00 07/23/24 16:05 07/23/24 16:05 Temperature 97.5 F L Pulse Rate 94 113 H Pulse Rate [Monitor] 94 Respiratory Rate 20 20 Blood Pressure 114/81 114/81 Pulse Oximetry 92 92 Oxygen Delivery 07/23/24 17:39 07/23/24 17:39 07/23/24 18:00 Temperature Pulse Rate 108 H 108 H 94 Pulse Rate [Monitor] Respiratory Rate Blood Pressure Pulse Oximetry Oxygen Delivery 07/23/24 20:00 07/23/24 20:00 07/23/24 20:00 Temperature 98.2 F Pulse Rate 86 88 Pulse Rate [Monitor] 88 Respiratory Rate 20 20 Blood Pressure 106/62 106/62 Pulse Oximetry 91 91 Oxygen Delivery Room Air 07/23/24 20:00 07/23/24 22:00 07/24/24 00:00 Temperature 97.8 F Pulse Rate 88 90 92 Pulse Rate [Monitor] Respiratory Rate 20 Blood Pressure 114/90 Pulse Oximetry 93 Oxygen Delivery 07/24/24 00:00 07/24/24 00:00 07/24/24 00:00 Temperature Pulse Rate 152 H 152 H Pulse Rate [Monitor] 150 H Respiratory Rate 20 Blood Pressure 114/90 Pulse Oximetry 93 Oxygen Delivery Room Air 07/24/24 00:42 07/24/24 00:55 07/24/24 02:00 Temperature Pulse Rate 152 H 132 H 144 H Pulse Rate [Monitor] Respiratory Rate Blood Pressure 114/90 114/90 104/80 Pulse Oximetry Oxygen Delivery 07/24/24 02:00 07/24/24 02:00 07/24/24 03:41 Temperature 98.2 F Pulse Rate 144 H 130 H 130 H Pulse Rate [Monitor] Respiratory Rate 20 Blood Pressure 104/80 116/81 Pulse Oximetry 93 Oxygen Delivery 07/24/24 04:00 07/24/24 04:00 07/24/24 04:00 Temperature Pulse Rate 121 H 121 H Pulse Rate [Monitor] 121 H Respiratory Rate 20 Blood Pressure 116/81 Pulse Oximetry 93 Oxygen Delivery Room Air 07/24/24 04:00 07/24/24 06:00 07/24/24 06:00 Temperature Pulse Rate 121 H 117 H 132 H Pulse Rate [Monitor] Respiratory Rate Blood Pressure 116/81 110/75 Pulse Oximetry Oxygen Delivery 07/24/24 06:00 07/24/24 06:49 07/24/24 08:00 Temperature 97.3 F L Pulse Rate 117 H 121 H 138 H Pulse Rate [Monitor] Respiratory Rate 16 Blood Pressure 110/75 110/75 111/74 Pulse Oximetry 95 Oxygen Delivery 07/24/24 08:00 07/24/24 08:00 07/24/24 09:55 Temperature 97.8 F Pulse Rate 139 H 138 H 139 H Pulse Rate [Monitor] Respiratory Rate 28 H Blood Pressure 111/74 113/69 Pulse Oximetry 92 Oxygen Delivery 07/24/24 10:00 07/24/24 10:00 07/24/24 11:21 Temperature Pulse Rate 139 H 138 H 131 H Pulse Rate [Monitor] Respiratory Rate Blood Pressure 113/69 Pulse Oximetry Oxygen Delivery 07/24/24 11:43 07/24/24 12:00 07/24/24 12:00 Temperature 98.2 F Pulse Rate 132 H 129 H 129 H Pulse Rate [Monitor] Respiratory Rate 28 H Blood Pressure 123/78 123/78 Pulse Oximetry 96 Oxygen Delivery 07/24/24 14:00 Temperature 97.8 F Pulse Rate 119 H Pulse Rate [Monitor] Respiratory Rate 20 Blood Pressure 103/81 Pulse Oximetry 96 Oxygen Delivery Intake/Output Intake/Output: Intake & Output 07/21/24 07/22/24 07/23/24 07/24/24 23:59 23:59 23:59 23:59 Intake Total 563.9 2088.2 1085.8 Output Total 1400 1000 1300 Balance -836.1 1088.2 -214.2 Meds/Results Medications: Active Medications Generic Name Dose Route Start Last Admin Trade Name Freq PRN Reason Stop Dose Admin Acetaminophen 650 mg 07/22/24 15:46 Acetaminophen 325 Mg Tablet PO Q6H PRN Mild Pain (1-3) or Fever Hydrocodone Bitart/Acetaminophen 1 tab 07/22/24 15:46 07/22/24 16:44 Hydrocodone/Acetaminophen (*Crx) 5-325 Mg Tablet PO 1 tab Q6H PRN Administration Pain Rated 4-6 Amiodarone HCl 200 mg 07/23/24 09:00 07/23/24 17:39 Amiodarone Hcl 200 Mg Tablet PO 200 mg BID MARK Administration Chlordiazepoxide HCl 25 mg 07/22/24 13:10 Chlordiazepoxide (*Crx) 25 Mg Capsule PO Q6H PRN Withdrawal Enoxaparin Sodium 100 mg 07/24/24 09:00 07/24/24 09:39 Enoxaparin 100 Mg/Ml Syringe SUB-Q 100 mg Q12HR MARK Administration Folic Acid 1 mg 07/22/24 13:20 07/24/24 09:39 Folic Acid 1 Mg Tablet PO 1 mg DAILY MARK Administration Furosemide 40 mg 07/22/24 17:00 07/24/24 09:39 Furosemide Inj 40 Mg/4 Ml Vial IV PUSH 40 mg BID MARK Administration Amiodarone HCl/Dextrose 360 mg in 200 mls @ 16.667 mls/hr 07/24/24 06:34 07/24/24 12:00 Nexterone 360 Mg/D5w 200 Ml IV CONT 0.5 mg/min .Q12H MARK 16.67 mls/hr Infusion 0.5 MG/MIN Lorazepam 2 mg 07/22/24 13:10 07/23/24 21:26 Lorazepam Inj (*Crx) 2 Mg/Ml Vial IV PUSH 2 mg Q4H PRN Administration CIWA 8-15 Metoprolol Tartrate 25 mg 07/24/24 12:00 07/24/24 11:21 Metoprolol Tartrate 25 Mg Tablet PO 25 mg Q6HR MARK Administration Morphine Sulfate 2 mg 07/22/24 15:46 Morphine Sulfate (*Crx) 2 Mg/Ml Inj IV PUSH Q4H PRN Pain Rated 7-10 Sodium Chloride 1 gm 07/22/24 13:20 07/24/24 09:39 Sodium Chloride 1 Gm Tablet PO 1 gm DAILY MARK Administration Thiamine HCl 100 mg 07/22/24 13:20 07/24/24 09:39 Thiamine Hcl 100 Mg Tablet PO 100 mg QAM MARK Administration Radiology Results: ITS Impressions Chest CTA 07/22/24 09:58 IMPRESSION: 1. No pulmonary embolus. 2. Mild pulmonary edema. 3. Moderate-sized pleural effusions. ADDENDUM: 07/22/24 1020 There is a 10 mm nodule in left upper lobe, which may be infection or neoplasm. Noncontrast low-dose chest CT is recommended in 3 months. Chest X-Ray 07/22/24 10:16 IMPRESSION: 1. 10 mm nodule at left lung upper lobe, which may be infection or neoplasm. Noncontrast low-dose chest CT is recommended in 3 months. 2. Airspace opacities at the lung bases, likely atelectasis. 3. Moderate-sized pleural effusions. 4. Cardiomegaly. Hospitalist MIPS Advance Care Plan I have confirmed that the patient's Advanced Care Plan is present, code status is documented, or surrogate decision maker is listed in patient medical record.: Yes Medication Reconciliation I have utilized all available resources to obtain, update and review the patients current medications (includes all prescriptions, OTC, herbals, cannabi s, and nutritional supplements).: Yes
[2024-07-25] VITALS: BP 129/82; PULSE 90; RESP 16; O2SAT 90
[2024-07-25 02:00] VITALS: BP 116/72; PULSE 82; PULSE 84
--- NOTE | 2024-08-05 16:49 | PM.TDS ---
Transfer Discharge Sum: Prov Provider Date of admission: 07/22/24 10:29 Primary care physician: Juanito Woodward MD Admitting clinician: Raul Hummel MD Consults: 07/22/24 Consult to Physician Routine Comment: Consulting Provider: Michael Soni Reason for consultation: New HF and AFIB RVR Has provider been notified: Yes DS: Admitting Diagnosis Discharge Date 07/25/24 Admitting Diagnosis Shortness of Breath DS: Discharge Diagnosis Discharge Diagnosis (1) Atrial fibrillation with rapid ventricular response: Code(s): I48.91 - Unspecified atrial fibrillation Status: Acute Assessment and Plan: -back to AFib with RVR -transfer to [facility] for AVR - EKG, initial: AFib with RVR, nonspecific ST and T-wave abnormality, rate 152. - echo (04/2023): EF >70%, mild LVH, grade I diastolic dysfunction (E/e' 14), mild LAE, severe (OBED 0.9 cm2, mean 67 mmHg), mod MAC, mild MR/TR RVSP 50 mmHg. update echo - started on amiodarone gtt - check TSH - cmm programmer consulted, Zachariah SOTO. provided the following recs: CHADSVasc 3 -> started on heparin gtt Amiodarone gtt -> Metoprolol PO once NSR restored Echo - telemetry monitoring, IMU (2) Congestive heart failure: Qualifiers: Heart failure type: diastolic Heart failure chronicity: unspecified Qualified Code(s): I50.30 - Unspecified diastolic (congestive) heart failure Code(s): I50.9 - Heart failure, unspecified Status: Acute Assessment and Plan: - Hx of grade 1 diastolic dysfunction, on Lasix 40 mg p.o. b.i.d. Suspect current exacerbation. - BNP 5340 - most recent echo (04/2023): EF >70%, mild LVH, grade I diastolic dysfunction - Lasix 80 mg IV -> 40 IV BID - monitor I&Os and daily weights - trend renal function (3) Alcohol use disorder: Code(s): F10.90 - Alcohol use, unspecified, uncomplicated Status: Chronic Assessment and Plan: - daily ETOH use: 4-5 beers, 1-2 glasses of wine, 1-2 glasses of scotch daily. - no previous withdrawal symptoms with cessation - CIWA protocol in place Ativan PRN Librium prn seizure precautions neurochecks Q4H - antiemetics PRN - start thiamine and folic acid p.o. (4) Essential hypertension: Code(s): I10 - Essential (primary) hypertension Status: Chronic Assessment and Plan: - chronic, currently soft at 114/93 - hold home medications, resume when appropriate. - monitor Transfer Discharge Sum: Med Medications Active and Home Medications: Home Medications aspirin 81 mg tablet,delayed release (Adult Low Dose Aspirin) 81 mg PO DAILY 05/22/19 [History Confirmed 07/22/24] losartan 100 mg tablet See Rx Instructions .Route .COMPLEX #90 tabs 12/07/23 [Rx Confirmed 07/22/24] amlodipine 10 mg tablet See Rx Instructions .Route .COMPLEX #90 tabs 02/18/24 [Rx Confirmed 07/22/24] sodium chloride 1,000 mg soluble tablet 1,000 mg PO DAILY #90 tabs 03/12/24 [Rx Confirmed 07/22/24] mv,Ca,bbj-awmx-CM-lycopene 1 tablet PO DAILY 07/22/24 [History Confirmed 07/22/24] Transfer Discharge Sum: Hosp Hospital Course Hospital course: Tommy Shah 73 y/o M presents here with shortness of breath with PMH of hypertension, aortic stenosis, chronic hyponatremia, and alcohol use disorder. The patient presents here from home for further evaluation of shortness of breath. He reports onset approximately one week. He describes the shortness of breath as exertional and relieved with rest. It is accompanied by bilateral lower extremity swelling, bilateral. He denies palpitations, diaphoresis, chest pain, congestion, cough, fatigue, nausea, vomiting or diarrhea. He reports a cardiac history significant for aortic stenosis and hypertension, currently on amlodipine and losartan. He denies any previous cardiac surgery, myocardial infarction, or cardiac stents. He is currently on a daily aspirin, no further anticoagulation. Of note, the patient had a greater tuberosity fracture with displacement/dislocation that was reduced at [facility] at the end of May. He had a brief O2 requirement requiring observation. CT showed small bilateral pleural effusions with asymmetric left greater than right dependent ground-glass and consolidative opacities that likely represent component of atelectasis, aspiration, and pulmonary edema given septal line thickening. He was started on a 7 day course of Levaquin. He followed up with the orthopedist at [place] on 07/08, elected to move forward with nonsurgical management. Current daily alcohol use - 4-5 beers, 1-2 glasses of wine, 1-2 glasses of scotch daily. Denies previous withdrawal symptoms with cessation. Initial VS at presentation: 97.5? F, HR 152, RR 24, 103/77, 100% on RA. ED workup showed: No leukocytosis, no anemia, normal coags, sodium 130 (similar to previous range), initial troponin 0.029, BNP 5340. Chest CTA showed no PE, mild pulmonary edema, moderate sized pleural effusions, and a 10 mm nodule in the left upper lung (infectious versus neoplasm, repeat CT in 3 months). CXR showed a 10 mm nodule left upper lung, airspace opacities in the lung bases likely atelectasis, moderate-sized pleural effusions, cardiomegaly. Initial EKG showed AFib with RVR, rate 152. I assumed care on : Interval history:73 y/o M presents here with shortness of breath with PMH of hypertension, aortic stenosis, chronic hyponatremia, and alcohol use disorder. Patient was admitted in the setting of shortness of breath. Patient has bilateral lower extremity edema. Of note, the patient had a greater tuberosity fracture with displacement/dislocation that was reduced at [facility] at the end of May. He had a brief O2 requirement requiring observation. CT showed small bilateral pleural effusions with asymmetric left greater than right dependent ground-glass and consolidative opacities that likely represent component of atelectasis, aspiration, and pulmonary edema given septal line thickening. He was started on a 7 day course of Levaquin. He followed up with the orthopedist at [place] on 07/08, elected to move forward with nonsurgical management. Current daily alcohol use - 4-5 beers, 1-2 glasses of wine, 1-2 glasses of scotch daily. Denies previous withdrawal symptoms with cessation. He reports a cardiac history significant for aortic stenosis and hypertension, currently on amlodipine and losartan. 07/23: Currently. Abdomen around drip and started amiodarone 200 mg p.o. b.i.d.. Stop the heparin drip and started Eliquis 5 mg b.i.d.. Cardiology also decreased metoprolol to 25 mg b.i.d. patient endorses alcohol every day 4-5 beers and sometimes hard liquor 07/24: Patient is back in atrial fibrillation and started on amiodarone drip. Patient is currently on amiodarone 200 mg p.o. b.i.d. and enoxaparin 100 mg subQ b.i.d.. As per Cardiology patient will be transferred to [facility] for aortic valve repair Time Spent with Patient Time attestation: Total time spent providing and/or coordinating transfer services: 45 mins Exam Const: General: comfortable and no acute distress Other: , male, chronically ill-appearing HENMT: Face/Nose/Sinus: Normal nares present Mouth: Yes moist mucous membranes Eyes: General: appearance normal, both eyes and all related structures Sclera: sclerae normal Pupils: Equal, round and reactive pupils present EOM: EOMs intact bilaterally Resp: Effort & Inspection: normal respiratory effort Auscultation: clear to auscultation bilaterally Cardio: Rate: tachycardic Rhythm: abnormal rhythm Other: Findings consistent with AFib RVR. No overt murmur or rub. GI: Other: Abdomen rounded, soft, nontender. Skin: General skin exam: normal color and no rashes or lesions noted Wounds: no wounds Neuro: Cranial nerves: Yes Equal, round and reactive pupils present Speech: normal speech Motor exam (neuro): 5/5 motor strength present throughout Sensory Exam: normal sensation Other: A&O x4, no tremor on exam. Extrem: Other: 2+ pitting edema, symmetric, extents just distal to the knees, bilateral. Psych: Mental Status: mental status grossly normal Affect: normal affect Other: Good insight and judgment, pleasant
== END 2024-07-25 02:33 | disposition short-term general hospital (02) | DRG 306 ==
LOC: ANHED 10:34 → ANHIMU 07-23 09:16
PROVIDERS: Student in an Organized Health Care Education/Training Program; Admitting Provider General Practice; Emergency Provider Student in an Organized Health Care Education/Training Program; PCP Emergency Medicine; Visit Provider Internal Medicine Cardiovascular Disease
DX: I35.0 Nonrheumatic aortic (valve) stenosis (principal); I50.41 Acute combined systolic (congestive) and diastolic (congestive) heart failure; E87.1 Hypo-osmolality and hyponatremia; I48.0 Paroxysmal atrial fibrillation; I11.0 Hypertensive heart disease with heart failure; E78.5 Hyperlipidemia, unspecified; F10.20 Alcohol dependence, uncomplicated; Z79.82 Long term (current) use of aspirin
CPT/HCPCS: 36415; 71046; 71275; 80053; 83735; 83880; 84439; 84443; 84480; 84484; 85025; 85610; 85730; 93005; 96365; 96375; 99285; A9270; C8929; J0282; J1644; J1650; J1940; J2060; Q9957; Q9967

== ENCOUNTER 2024-08-29 13:01 | Outpatient (CLI) | payer MEDICARE, OTHER, SELFPAY ==
--- NOTE | ~2024-08-29 | XR_ITS ---
Clinical Indication: Heart failure PA and lateral views of the chest: Comparison: 07/22/2024 Findings: Small bilateral pleural effusions are present. Cardiomediastinal silhouette is stable, sta tus post aortic valve replacement. Bones and soft tissues are unremarkable. Impression: Small bilateral pleural effusions. Reviewed, dictated and finalized at location . Impression: Small bilateral pleural effusions.
--- OUTSIDE RECORDS SUMMARY | 2024-08-30 13:42 | XMS_ITS | Clinical Summary ---
Author Organization Unknown Care Team Providers Care Chronometer Tester Name Role Phone ALEX SOTO, BYRON Unavailable Unavailable JESSICA PIERRE, MIHAI Unavailable Unavailable LORI BRADENN, IMHAI Unavailable Unavailable LEO PT, MARGARETH Unavailable Unavailable KENISHA QUALITY CONTROL ANALYST, ROCÍO Unavailable Unavailjamil DONG OT, JAIMEE Unavailable Unavailable Payers Payer Name Policy Type Policy Number Effective Date Expira tion Date MEDICARE.[facility] [id number] Problems Condition Name Condition Details Condition Category Status Onset Date Resolution Date Last Treatment Date Treating Clinician Comments ENCNTR FOR SURGICAL AFTCR FOLLOWING SURGERY ON THE CIRC SYS Active 07-30 00:00: 00 HYPERTENSIVE HEART DISEASE WITH HEART FAILURE Active 04-30 00:00: 00 UNSPECIFIED DIASTOLIC (CONGESTIVE) HEART FAILURE Active 04-30 00:00: 00 ACUTE SYSTOLIC (CONGESTIVE) HEART FAILURE Active 04-30 00:00: 00 PAROXYSMAL ATRIAL FIBRILLATION Active 04-30 00:00: 00 PLANTAR FASCIAL FIBROMATOSIS Active 04-30 00:00: 00 VITAMIN D DEFICIENCY, UNSPECIFIED Active 04-30 00:00: 00 OVERWEIGHT Active 04-30 00:00: 00 THROMBOCYTOP ENIA, UNSPECIFIED Active 04-30 00:00: 00 PRESENCE OF PROSTHETIC HEART VALVE Active 07-30 00:00: 00 PENITENTIARY (CURRENT) USE OF ASPIRIN Active 04-30 00:00: 00 PERSONAL HISTORY OF NICOTINE DEPENDENCE Active 04-30 00:00: 00 NONRHEUMATIC AORTIC (VALVE) STENOSIS Active 08-25 00:00: 00 Allergies, Adverse Reactions, Alerts Allergy Name Allergy Type Status Severity Reaction(s) Onset Date Inactive Date Treating Clinician Comments NO KNOWN ALLERGIES Propensity to adverse reactions Active 08-24 14:50: 26 Vital Signs Vital Name Observation Time Observation Value Commen ts Temperature 2024-08-28 12:33:00.000 97.8 [degF] Temperature 2024-08-26 16:05:00.000 98.5 [degF] Temperature 2024-08-26 10:09:00.000 98.1 [degF] Temperature 2024-08-25 11:28:00.000 96 [degF] Temperature 2024-08-23 12:22:00.000 96 [degF] BMI (%) 2024-08-23 12:22:00.000 26 kg/m2 Height 2024-08-23 12:22:00.000 73 [in_us] Pulse 2024-08-28 12:33:00.000 80 /min Pulse 2024-08-26 16:05:00.000 84 /min Pulse 2024-08-26 10:09:00.000 84 /min Pulse 2024-08-25 11:28:00.000 84 /min Pulse 2024-08-23 12:22:00.000 88 /min O2 Saturation (%) 2024-08-28 12:33:00.000 99 % O2 Saturation (%) 2024-08-26 16:05:00.000 98 % O2 Saturation (%) 2024-08-26 10:09:00.000 99 % O2 Saturation (%) 2024-08-23 12:22:00.000 96 % Respirations 2024-08-28 12:33:00.000 16 /min Respirations 2024-08-26 16:05:00.000 18 /min Respirations 2024-08-26 10:09:00.000 16 /min Respirations 2024-08-25 11:28:00.000 18 /min Respirations 2024-08-23 12:22:00.000 18 /min Weight (lbs) 2024-08-28 12:33:00.000 197.8 [lb_av] Weight (lbs) 2024-08-26 16:37:00.000 195.6 [lb_av] Weight (lbs) 2024-08-26 10:25:00.000 195.6 [lb_av] Weight (lbs) 2024-08-23 12:22:00.000 198 [lb_av] Systolic Blood Pressure 2024-08-28 12:33:00.000 122 mm [Hg] Systolic Blood Pressure 2024-08-26 16:05:00.000 116 mm [Hg] Systolic Blood Pressure 2024-08-26 10:09:00.000 118 mm [Hg] Systolic Blood Pressure 2024-08-25 11:28:00.000 122 mm [Hg] Systolic Blood Pressure 2024-08-23 12:22:00.000 136 mm [Hg] Diastolic Blood Pressure 2024-08-28 12:33:00.000 64 mm [Hg] Diastolic Blood Pressure 2024-08-26 16:05:00.000 58 mm [Hg] Diastolic Blood Pressure 2024-08-26 10:09:00.000 64 mm [Hg] Diastolic Blood Pressure 2024-08-25 11:28:00.000 60 mm [Hg] Diastolic Blood Pressure 2024-08-23 12:22:00.000 72 mm [Hg] Plan of Treatment Planned Activity Planned Date Details Comments Future Scheduled Test RN TO OBSE RVE, ASSESS, EVALUATE, AND DEVELOP AN INDIVIDUALIZED PLAN OF CARE. AGENCY MAY ACCEPT ORDERS FROM CONSULTING PHYSICIANS BYRON JOHNSON MD RN TO OBSERVE AND ASSESS, BOND UNDERWRITER/MANAGER FINANCIAL SERVICES TO OBSERVE FOR RISK FOR FALLS AND INSTRUCT IN FALL PREVENTION, HOME SAFETY, MEDICATION MANAGEMENT, INFECTION PREVENTION, AND NUTRITION MANAGEMENT. RN/BOND UNDERWRITER/MANAGER FINANCIAL SERVICES NURSE MAY PERFORM O2 SATURATION LEVEL ON ADMISSION, EVERY VISIT AND PRN FOR SHORTNESS OF BREATH FOR RN TO ASSESS/BOND UNDERWRITER TO OBSERVE PATIENT, WITH NOTIFICATION TO THE PHYSICIAN IF SATURATION IS 90% IN THE ABSENCE OF MORE SPECIFIC PARAMETERS FROM THE PHYSICIAN. AGENCY MAY PERFORM A RESUMPTION OF CARE VISIT FOLLOWING ANY HOSPITAL ADMISSION. RN/BOND UNDERWRITER/MANAGER FINANCIAL SERVICES TO MONITOR CO-MORBID CONDITIONS LISTED ON THE PLAN OF CARE AND ANY NEW CONDITIONS THAT PRESENT THEMSELVES DURING THIS EPISODE TO IDENTIFY CHANGES AND INTERVENE TO MINIMIZE COMPLICATIONS. [code = RN TO OBSERVE, ASSESS, EVALUATE, AND DEVELOP AN INDIVIDUALIZED PLAN OF CARE. AGENCY MAY ACCEPT ORDERS FROM CONSULTING PHYSICIANS BYRON JOHNSON MD RN TO OBSERVE AND ASSESS, BOND UNDERWRITER/MANAGER FINANCIAL SERVICES TO OBSERVE FOR RISK FOR FALLS AND INSTRUCT IN FALL PREVENTION, HOME SAFETY, MEDICATION MANAGEMENT, INFECTION PREVENTION, AND NUTRITION MANAGEMENT. RN/BOND UNDERWRITER/MANAGER FINANCIAL SERVICES NURSE MAY PERFORM O2 SATURATION LEVEL ON ADMISSION, EVERY VISIT AND PRN FOR SHORTNESS OF BREATH FOR RN TO ASSESS/BOND UNDERWRITER TO OBSERVE PATIENT, WITH NOTIFICATION TO THE PHYSICIAN IF SATURATION IS 90% IN THE ABSENCE OF MORE SPECIFIC PARAMETERS FROM THE PHYSICIAN. AGENCY MAY PERFORM A RESUMPTION OF CARE VISIT FOLLOWING ANY HOSPITAL ADMISSION. RN/BOND UNDERWRITER/MANAGER FINANCIAL SERVICES TO MONITOR CO-MORBID CONDITIONS LISTED ON THE PLAN OF CARE AND ANY NEW CONDITIONS THAT PRESENT THEMSELVES DURING THIS EPISODE TO IDENTIFY CHANGES AND INTERVENE TO MINIMIZE COMPLICATIONS.] Future Scheduled Test MEDICATION MANAGEMENT; RN/BOND UNDERWRITER/MANAGER FINANCIAL SERVICES TO REVIEW MEDICATIONS FOR INTERACTIONS, EFFECTIVENESS OF DRUG THERAPY, AND SIGNS/SYMPTOMS OF ADVERSE REACTIONS. MAY INSTRUCT AND REINFORCE MEDICATION TEACHING RELATED TO THE USE OF MEDICATIONS, DOSAGE, FREQUENCY, PURPOSE, SIDE EFFECTS, AND TO REPORT COMPLICATIONS. [code = MEDICATION MANAGEMENT; RN/BOND UNDERWRITER/MANAGER FINANCIAL SERVICES TO REVIEW MEDICATIONS FOR INTERACTIONS, EFFECTIVENESS OF DRUG THERAPY, AND SIGNS/SYMPTOMS OF ADVERSE REACTIONS. MAY INSTRUCT AND REINFORCE MEDICATION TEACHING RELATED TO THE USE OF MEDICATIONS, DOSAGE, FREQUENCY, PURPOSE, SIDE EFFECTS, AND TO REPORT COMPLICATIONS.] Future Scheduled Test ANTITHROMB OTIC MANAGEMENT; RN TO ASSESS AND TEACH, BOND UNDERWRITER/MANAGER FINANCIAL SERVICES TO OBSERVE/TEACH/MONITOR EFFECTIVENESS OF ANTITHROMBOTIC THERAPY. RN/BOND UNDERWRITER/MANAGER FINANCIAL SERVICES TO INSTRUCT ON SIGNS AND SYMPTOMS OF BLEEDING/ADVERSE REACTIONS TO REPORT TO PHYSICIAN. RN/BOND UNDERWRITER/MANAGER FINANCIAL SERVICES TO PERFORM PT/INR VIA VENIPUNCTURE OR COAGUCHECK PRN PHYSICIAN ORDERS RN/BOND UNDERWRITER/MANAGER FINANCIAL SERVICES TO FAX/CALL IN RESULTS TO BYRON JOHNSON MD TIMELY [code = ANTITHROMBOTIC MANAGEMENT; RN TO ASSESS AND TEACH, BOND UNDERWRITER/MANAGER FINANCIAL SERVICES TO OBSERVE/TEACH/MONITOR EFFECTIVENESS OF ANTITHROMBOTIC THERAPY. RN/BOND UNDERWRITER/MANAGER FINANCIAL SERVICES TO INSTRUCT ON SIGNS AND SYMPTOMS OF BLEEDING/ADVERSE REACTIONS TO REPORT TO PHYSICIAN. RN/BOND UNDERWRITER/MANAGER FINANCIAL SERVICES TO PERFORM PT/INR VIA VENIPUNCTURE OR COAGUCHECK PRN PHYSICIAN ORDERS RN/BOND UNDERWRITER/MANAGER FINANCIAL SERVICES TO FAX/CALL IN RESULTS TO BYRON JOHNSON MD TIMELY ] Future Scheduled Test RISK FOR H OSPITALIZATION; RN TO ASSESS/TEACH, MANAGER FINANCIAL SERVICES/BOND UNDERWRITER TO OBSERVE/TEACH PATIENT/CAREGIVER ON RISK FOR HOSPITALIZATION/EMERGENCY ROOM VISITS, TEACH SIGNS AND SYMPTOMS THAT PUT PATIENT AT RISK, WHEN TO NOTIFY NURSE/PHYSICIAN OF COMPLICATIONS/DECLINE, AND WHEN TO CALL 911. [code = RISK FOR HOSPITALIZATION; RN TO ASSESS/TEACH, MANAGER FINANCIAL SERVICES/BOND UNDERWRITER TO OBSERVE/TEACH PATIENT/CAREGIVER ON RISK FOR HOSPITALIZATION/EMERGENCY ROOM VISITS, TEACH SIGNS AND SYMPTOMS THAT PUT PATIENT AT RISK, WHEN TO NOTIFY NURSE/PHYSICIAN OF COMPLICATIONS/DECLINE, AND WHEN TO CALL 911.] Future Scheduled Test CARDIOVASC ULAR SYSTEM; RN TO ASSESS/TEACH, BOND UNDERWRITER/MANAGER FINANCIAL SERVICES TO OBSERVE/TEACH RELATED TO ALTERED CARDIOVASCULAR STATUS TO MINIMIZE COMPLICATIONS AND REDUCE HOSPITALIZATION. [code = CARDIOVASCULAR SYSTEM; RN TO ASSESS/TEACH, BOND UNDERWRITER/MANAGER FINANCIAL SERVICES TO OBSERVE/TEACH RELATED TO ALTERED CARDIOVASCULAR STATUS TO MINIMIZE COMPLICATIONS AND REDUCE HOSPITALIZATION.] Future Scheduled Test HYPERTENSI ON MANAGEMENT; RN TO ASSESS AND TEACH, BOND UNDERWRITER/MANAGER FINANCIAL SERVICES TO OBSERVE AND TEACH WARNING SIGNS AND SYMPTOMS TO AVOID HOSPITALIZATION. [code = HYPERTENSION MANAGEMENT; RN TO ASSESS AND TEACH, BOND UNDERWRITER/MANAGER FINANCIAL SERVICES TO OBSERVE AND TEACH WARNING SIGNS AND SYMPTOMS TO AVOID HOSPITALIZATION.] Future Scheduled Test ARRHYTHMIA MANAGEMENT; RN TO ASSESS AND TEACH, BOND UNDERWRITER/MANAGER FINANCIAL SERVICES TO OBSERVE AND TEACH WARNING SIGNS AND SYMPTOMS TO AVOID HOSPITALIZATION. [code = ARRHYTHMIA MANAGEMENT; RN TO ASSESS AND TEACH, BOND UNDERWRITER/MANAGER FINANCIAL SERVICES TO OBSERVE AND TEACH WARNING SIGNS AND SYMPTOMS TO AVOID HOSPITALIZATION.] Future Scheduled Test WOUND MOLE CULAR TESTING PROTOCOL UP TO 3 PRN RN/BOND UNDERWRITER VISITS MAY BE PERFORMED FOR S/S OF WOUND INFECTION/DETERIORATION/STAGNATION. RN TO ASSESS, BOND UNDERWRITER/MANAGER FINANCIAL SERVICES TO OBSERVE AND INITIATE PROTOCOL. RN/BOND UNDERWRITER/MANAGER FINANCIAL SERVICES TO INSTRUCT PATIENT AND/OR CAREGIVER ON S/S OF WOUND INFECTION/DETERIORATION/STAGNATION TO REPORT TO NURSE IF NEW OR WORSENING SYMPTOMS. RN/BOND UNDERWRITER/MANAGER FINANCIAL SERVICES TO OBTAIN MOLECULAR WOUND TESTING VIA SWAB COLLECTION PER POLICY. [id number] NOTIFY PROVIDER OF RESULTS AND OBTAIN FURTHER ORDERS. [code = WOUND MOLECULAR TESTING PROTOCOL UP TO 3 PRN RN/BOND UNDERWRITER VISITS MAY BE PERFORMED FOR S/S OF WOUND INFECTION/DETERIORATION/STAGNATION. RN TO ASSESS, BOND UNDERWRITER/MANAGER FINANCIAL SERVICES TO OBSERVE AND INITIATE PROTOCOL. RN/BOND UNDERWRITER/MANAGER FINANCIAL SERVICES TO INSTRUCT PATIENT AND/OR CAREGIVER ON S/S OF WOUND INFECTION/DETERIORATION/STAGNATION TO REPORT TO NURSE IF NEW OR WORSENING SYMPTOMS. RN/BOND UNDERWRITER/MANAGER FINANCIAL SERVICES TO OBTAIN MOLECULAR WOUND TESTING VIA SWAB COLLECTION PER POLICY. [id number] NOTIFY PROVIDER OF RESULTS AND OBTAIN FURTHER ORDERS.] Future Scheduled Test RN/BOND UNDERWRITER/MANAGER FINANCIAL SERVICES TO PERFORM/TEACH INCISION CARE TO CHEST #1 AREA: INSPECT DAILY. LEAVE OPEN TO AIR. [code = RN/BOND UNDERWRITER/MANAGER FINANCIAL SERVICES TO PERFORM/TEACH INCISION CARE TO CHEST #1 AREA: INSPECT DAILY. LEAVE OPEN TO AIR. ] Future Scheduled Test PAIN MANAG EMENT; RN TO ASSESS AND TEACH, MANAGER FINANCIAL SERVICES/BOND UNDERWRITER TO OBSERVE AND TEACH AND PROVIDE EDUCATION ON PAIN MANAGEMENT TECHNIQUES. [code = PAIN MANAGEMENT; RN TO ASSESS AND TEACH, MANAGER FINANCIAL SERVICES/BOND UNDERWRITER TO OBSERVE AND TEACH AND PROVIDE EDUCATION ON PAIN MANAGEMENT TECHNIQUES.] Future Scheduled Test HEART FAIL URE; RN TO ASSESS/TEACH, BOND UNDERWRITER/MANAGER FINANCIAL SERVICES TO OBSERVE/TEACH CARDIOPULMONARY SYSTEM TO IDENTIFY SIGNS OF DECOMPENSATION AND INTERVENE TO MINIMIZE THE SEVERITY OF FLUID OVERLOAD. OBSERVE PATIENT ABILITY TO MONITOR AND RECORD DAILY WEIGHTS AND VITAL SIGNS, INCLUDING PULSE AND BLOOD PRESSURE; RECORD PATIENT REPORTED WEIGHT, OR WEIGH PATIENT NEEDED. REPORT INCREASED EDEMA OR WEIGHT GAIN OF >2 LBS IN 1 DAY OR >5 LBS IN 1 WEEK OR 5LBS OR MORE OVER TARGET WEIGHT. MAY MEASURE ABDOMINAL GIRTH IF UNABLE TO WEIGH. SCALES AND BP MONITOR TO BE PROVIDED IF NEEDED. [code = HEART FAILURE; RN TO ASSESS/TEACH, BOND UNDERWRITER/MANAGER FINANCIAL SERVICES TO OBSERVE/TEACH CARDIOPULMONARY SYSTEM TO IDENTIFY SIGNS OF DECOMPENSATION AND INTERVENE TO MINIMIZE THE SEVERITY OF FLUID OVERLOAD. OBSERVE PATIENT ABILITY TO MONITOR AND RECORD DAILY WEIGHTS AND VITAL SIGNS, INCLUDING PULSE AND BLOOD PRESSURE; RECORD PATIENT REPORTED WEIGHT, OR WEIGH PATIENT NEEDED. REPORT INCREASED EDEMA OR WEIGHT GAIN OF >2 LBS IN 1 DAY OR >5 LBS IN 1 WEEK OR 5LBS OR MORE OVER TARGET WEIGHT. MAY MEASURE ABDOMINAL GIRTH IF UNABLE TO WEIGH. SCALES AND BP MONITOR TO BE PROVIDED IF NEEDED.] Future Scheduled Test FALL REDUC TION MANAGEMENT; RN TO ASSESS AND OBSERVE, BOND UNDERWRITER/MANAGER FINANCIAL SERVICES TO OBSERVE FALL RISK FACTORS AND EDUCATE PATIENT/CAREGIVER ON STRATEGIES TO MINIMIZE THE RISK OF FALLING. [code = FALL REDUCTION MANAGEMENT; RN TO ASSESS AND OBSERVE, BOND UNDERWRITER/MANAGER FINANCIAL SERVICES TO OBSERVE FALL RISK FACTORS AND EDUCATE PATIENT/CAREGIVER ON STRATEGIES TO MINIMIZE THE RISK OF FALLING.] Future Scheduled Test PHYSICAL T HERAPIST TO EVALUATE [code = PHYSICAL THERAPIST TO EVALUATE] Future Scheduled Test OCCUPATION AL THERAPIST TO EVALUATE. PATIENT DECLINES [code = OCCUPATIONAL THERAPIST TO EVALUATE. PATIENT DECLINES] Future Scheduled Test PRN VISITS ; NUMBER OF RN/BOND UNDERWRITER/MANAGER FINANCIAL SERVICES VISITS: 1 RN/BOND UNDERWRITER/MANAGER FINANCIAL SERVICES TO PERFORM: ASSESSMENT AND EDUCATION FOR THE FOLLOWING REASONS: CARDIOVASCULAR COMPLICATIONS [code = PRN VISITS; NUMBER OF RN/BOND UNDERWRITER/MANAGER FINANCIAL SERVICES VISITS: 1 RN/BOND UNDERWRITER/MANAGER FINANCIAL SERVICES TO PERFORM: ASSESSMENT AND EDUCATION FOR THE FOLLOWING REASONS: CARDIOVASCULAR COMPLICATIONS] Future Scheduled Test AGENCY MAY PERFORM A RESUMPTION OF CARE VISIT FOLLOWING ANY HOSPITAL ADMISSION. PT TO EVALUATE, OBSERVE / ASSESS, AND MONITOR, QUALITY CONTROL ANALYST TO OBSERVE AND MONITOR, PROVIDE SKILLED THERAPEUTIC INTERVENTION, ACTIVITY, EDUCATION, AND TRAINING TO ADDRESS; PT/QUALITY CONTROL ANALYST TO PROVIDE GAIT TRAINING FOR IMPROVED MOBILITY AND /OR TO NORMALIZE GAIT PATTERN THERAPEUTIC EXERCISES AND ESTABLISHING A HOME EXERCISE PROGRAM (PT/QUALITY CONTROL ANALYST) PT/QUALITY CONTROL ANALYST TO PROVIDE STAIR TRAINING PT TO ASSESS / QUALITY CONTROL ANALYST TO MONITOR CARDIO/RESPIRATORY SYSTEM; AND NOTIFY THE PHYSICIAN AND/OR THE RN CLINICAL CONSULTING PRACTICE DIRECTOR FOR PHYSICIAN NOTIFICATION FOR EARLY SIGNS AND SYMPTOMS OF EXACERBATION OR DETERIORATION. PT / QUALITY CONTROL ANALYST TO EDUCATE ON BYPASS SURGERY (CABG) SELF-MANAGEMENT PT/QUALITY CONTROL ANALYST TO IDENTIFY FALL RISK FACTORS; EDUCATE THE PATIENT/CAREGIVER ON WAYS TO REDUCE FALL RISK FACTORS AND ESTABLISH HOME EXERCISE PROGRAM TO MINIMIZE FALL RISK. MAY TEACH THE PATIENT FLOOR RECOVERY WHEN CLINICALLY APPROPRIATE [code = AGENCY MAY PERFORM A RESUMPTION OF CARE VISIT FOLLOWING ANY HOSPITAL ADMISSION. PT TO EVALUATE, OBSERVE / ASSESS, AND MONITOR, QUALITY CONTROL ANALYST TO OBSERVE AND MONITOR, PROVIDE SKILLED THERAPEUTIC INTERVENTION, ACTIVITY, EDUCATION, AND TRAINING TO ADDRESS; PT/QUALITY CONTROL ANALYST TO PROVIDE GAIT TRAINING FOR IMPROVED MOBILITY AND /OR TO NORMALIZE GAIT PATTERN THERAPEUTIC EXERCISES AND ESTABLISHING A HOME EXERCISE PROGRAM (PT/QUALITY CONTROL ANALYST) PT/QUALITY CONTROL ANALYST TO PROVIDE STAIR TRAINING PT TO ASSESS / QUALITY CONTROL ANALYST TO MONITOR CARDIO/RESPIRATORY SYSTEM; AND NOTIFY THE PHYSICIAN AND/OR THE RN CLINICAL CONSULTING PRACTICE DIRECTOR FOR PHYSICIAN NOTIFICATION FOR EARLY SIGNS AND SYMPTOMS OF EXACERBATION OR DETERIORATION. PT / QUALITY CONTROL ANALYST TO EDUCATE ON BYPASS SURGERY (CABG) SELF-MANAGEMENT PT/QUALITY CONTROL ANALYST TO IDENTIFY FALL RISK FACTORS; EDUCATE THE PATIENT/CAREGIVER ON WAYS TO REDUCE FALL RISK FACTORS AND ESTABLISH HOME EXERCISE PROGRAM TO MINIMIZE FALL RISK. MAY TEACH THE PATIENT FLOOR RECOVERY WHEN CLINICALLY APPROPRIATE] Goal Patient Goal - I WOULD LIKE TO GET MY MOBILITY BACK. Goal Provider Goal - A PLAN OF CARE WILL BE ESTABLISHED THAT MEETS THE PATIENTS NEEDS. PATIENT WILL DEMONSTRATE OXYGEN SATURATION WITHIN NORMAL LIMITS OR PATIENTS OPTIMAL LEVEL ESTABLISHED BY THE PHYSICIAN THROUGHOUT CARE. CHANGES TO CO-MORBID CONDITIONS AND ANY NEW CONDITIONS WILL BE IDENTIFIED AND REPORTED TO THE PHYSICIAN. Goal Provider Goal - PATIENT / CAREGIVER WILL PROMPTLY REPORT SIGNS AND SYMPTOMS OF BLEEDING OR ADVERSE REACTIONS TO THE PHYSICIAN. PATIENT/CAREGIVER WILL VERBALIZE UNDERSTANDING OF ANTITHROMBOTIC THERAPY MANAGEMENT BY END OF EPISODE. Goal Provider Goal - PATIENT / CAREGIVER WILL PROMPTLY REPORT SIGNS AND SYMPTOMS OF BLEEDING OR ADVERSE REACTIONS TO THE PHYSICIAN. PATIENT/CAREGIVER WILL VERBALIZE UNDERSTANDING OF ANTITHROMBOTIC THERAPY MANAGEMENT BY END OF EPISODE. Goal Provider Goal - PATIENT/CAREGIVER WILL VERBALIZE UNDERSTANDING OF SIGNS AND SYMPTOMS THAT PUT THE PATIENT AT RISK FOR HOSPITALIZATION /EMERGENCY ROOM VISITS, WHEN TO NOTIFY NURSE/PHYSICIAN OF COMPLICATIONS/DECLINE AND WHEN TO CALL 911. Goal Provider Goal - PATIENT / CAREGIVER WILL VERBALIZE/DEMONSTRATE UNDERSTANDING OF MEASURES TO MANAGE ALTERED CARDIOVASCULAR STATUS BY 10/21/24 Goal Provider Goal - PATIENT / CAREGIVER WILL VERBALIZE/DEMONSTRATE AN ABILITY TO ADHERE TO SELF-MANAGEMENT OF HTN TO MINIMIZE COMPLICATIONS AND AVOID HOSPITALIZATION BY END OF EPISODE. Goal Provider Goal - PATIENT / CAREGIVER WILL VERBALIZE/DEMONSTRATE AN ABILITY TO ADHERE TO SELF-MANAGEMENT OF HEART ARRHYTHMIA TO MINIMIZE COMPLICATIONS AND AVOID HOSPITALIZATION BY END OF EPISODE. Goal Provider Goal - PATIENT WILL DEMONSTRATE IMPROVEMENT IN S/S OF WOUND INFECTION/DETERIORATION/STAGNATION TO AVOID HOSPITALIZATION. Goal Provider Goal - PATIENT / CAREGIVER WILL VERBALIZE / DEMONSTRATE ABILITY TO PERFORM WOUND CARE. WOUND STATUS WILL IMPROVE EVIDENCED BY A DECREASE IN SIZE, DRAINAGE, ABSENCE OF INFECTION, AND DECREASED PAIN BY 10/21/24 Goal Provider Goal - PATIENT / CAREGIVER WILL VERBALIZE / DEMONSTRATE UNDERSTANDING OF PAIN CONTROL MEASURES BY 10/21/24 Goal Provider Goal - PATIENT / CAREGIVER WILL VERBALIZE/DEMONSTRATE AN ABILITY TO ADHERE TO SELF-MANAGEMENT OF HF TO MINIMIZE COMPLICATIONS AND AVOID HOSPITALIZATION BY END OF EPISODE. Goal Provider Goal - PATIENT/CAREGIVER WILL VERBALIZE/DEMONSTRATE UNDERSTANDING OF FALL RISK FACTORS AND IMPLEMENT STRATEGIES TO MINIMIZE FALL RISK. PATIENT/CAREGIVER WILL VERBALIZE/DEMONSTRATE AN ABILITY TO ADHERE TO FALL REDUCTION SELF-MANAGEMENT AND LIFE-STYLE CHANGES BY 10/21/24. Goal Provider Goal - Goal Provider Goal - Goal Provider Goal - Goal Provider Goal - PT LTG: PATIENT WILL DEMONSTRATE IMPROVED SAFE FUNCTIONAL MOBILITY BY IMPROVING AMBULATION FROM SBA FOR 2 MIN TO INDEP FOR 6 MIN IN 4 WEEKS PT LTG: PATIENT WILL DEMONSTRATE IMPROVED FUNCTIONAL STRENGTH EVIDENCED BY FIVE TIMES SIT TO STAND TEST (CUT SCORE >12 SECONDS INDICATES AN INCREASED FALL RISK) IMPROVING FROM 18 RICHIE TO 15 SEC IN 4 WEEKS PT LTG: PATIENT WILL DEMONSTRATE INCREASED STRENGTH OF BILATERAL HIPS FROM 3/5 TO 4/5 IN 4 WEEKS PT LTG: PATIENT WILL DEMONSTRATE IMPROVED ABILITY TO SAFELY NEGOTIATE STAIRS FROM UNABLE TO INDEP WITH HANDRAIL IN 4 WEEKS PT LTG: PATIENT WILL NOT EXPERIENCE CARDIAC OR RESPIRATORY COMPLICATIONS THROUGHOUT THE EPISODE OF CARE. PT GOAL: PATIENT WILL DEMONSTRATE NO COMPLICATIONS FOLLOWING CABG. PATIENT/CAREGIVER WILL VERBALIZE/DEMONSTRATE AN ABILITY TO ADHERE TO HEART HEALTHY LIFESTYLE AND CABG SELF-MANAGEMENT BY END OF EPISODE. PT LTG: PATIENT/CAREGIVER WILL DEMONSTRATE ADHERENCE TO FALL REDUCTION SELF-MANAGEMENT AND REDUCING FALL RISK FACTORS TO MINIMIZE FALL RISK BY END OF EPISODE PT LTG: PATIENT WILL BE INDEPENDENT WITH IMPLEMENTATION OF HEP WITHIN 2WEEKS Encounters Start Date/Time End Date/Time Encounter Type Admission Type Attending [facility] Department Encounter ID Discharge Date Discharge Status Discharge Condition Discharge Reason Percent Goals Met 2024-08-23 00:00:00 2024-10-21 00:00:00 Outpatient NEW ADMISSION MIHAI LOPEZ [facility] [id number]
--- OUTSIDE RECORDS SUMMARY | 2024-08-30 13:42 | XMS_ITS | Continuity of Care Document ---
Author Organization [facility] [facility] [place] [address] [place] [address] Phone Care Team Providers Care Consulting Hr Professional Name Role Phone [place] SOTO FACS, Rip [...] Diagnoses Date Provider Providers Copied on Encounter [facility], [facility] [address], [place], [place], [address], [place] tel:[phone] [facility] [place] [facility] [place] FOLLOW-UP SURGERY NOS - 3 [place] Erwin. [facility] [address], [place], [place], [address], [place]. tel:[phone] [facility], [address], [place], [place], [address], [place] tel:[phone] [facility] [place] [facility] [place] FOLLOW-UP SURGERY NOS - 3 [place] Erwin. [address], [place], [place], [address], [place]. tel:[phone] [facility], [address], [place], [place], [address], [place] tel:[phone] [facility] No Information 3 [place] Rip. [facility] [address], [place], [place], [address], [place]. tel:[phone] Referring Provider: Rip Velasco, [facility] [address], [place], [address] . tel:[phone] [facility], [facility] [place] [address], [place], [place], [id number], [place] tel:[phone] [facility] [place] No Information 3 [place] Rip[address], [place], [place], [address], [place]. tel:[phone] [facility], [address], [place], [place], [address], [place] tel:[phone] [facility] [place] No Information Jan-2 8 3 Caro Rip. [address], [place], [place], [address], [place]. tel:[phone] Referring Provider: Saúl Garrison, [address] [facility], [place], [address]. tel:[phone] [facility], [address], [place], [place], [address], [place] tel:[phone] [facility] [place] No Information [address] Car[address], [place], [place], [address], [place]. tel:[phone] [facility], [address] [place], [place] [address]st [address], [place], [place], [address], [place] tel:[phone] SEC [facility] No Information Oct-2 3-200 9 Krishnasamy Shawn. [address], [place], [facility], [place]. tel:[phone] [facility], [address] [place] [address], [place], [place], [address], [place] tel:[phone] SEC [facility] No Information Oct-0 2-200 9 Krishnasamy Shawn. [address], [address], [place]. tel:[phone] [facility], [address] [place] [address] [address], [place], [place], [address], tel:[phone] [facility] No Information Sep-2 5-200 9 Krishnasamy Shawn. [address], [facility], . tel:[phone] [facility], [address] [place] [address] [address], [place], [place], [address], tel:[phone] [facility] No Information Sep-2 4-200 9 Krishnasamy Shawn. [address], [facility], . tel:[phone] Referring Provider: Saúl Lopez OD F, [address] [facility] [address], [place], [place], [facility]. tel:[phone] [facility], [address] [place] [address] [address], [place], [place], [address], tel:[phone] [facility] No Information Sep-0 2-200 9 Krishnasamy Shawn. [facility] [address], [facility], . tel:[phone] Referring Provider: Saúl Lopez OD F, [address] [facility] [address], [place], [place], [facility]. tel:[phone] Family History Family Member Type Diagnosis Age At Onset No Information Payers Payer name Insurance type Covered democrat ID Authoriza tion(s) No Information Social History Type Description Quantity Date Captured Comments Alcohol Use Details 3 drinks daily Caffeine Use Details 2 cups per day Tobacco Use Status No Information Smoking Status Former smoker Sex Male Chief Complaint And Reason For Visit No Information Reason For Referral Reason For Referral No Information History Of Present Illness Encounter Date Complaint History Of Prese nt Illness No Information Functional Status Date Functional Assessmen t No Information Instructions Date Instruction Additional Infor mation FOLLOW-UP SURGERY NO S OS - Good [...]
--- OUTSIDE RECORDS SUMMARY | 2024-08-30 13:42 | XMS_ITS | Encounter Summary ---
Author Organization [facility] Address [address] [place] [address] Care Team Providers Care Skin Care Technician Name Role Phone Juanito Woodward MD Primary Care Provide r Juanito Woodward MD Unavailable [phone] Nick Veliz MD Unavailable Miscellaneous, Not In File Unavailable Unava ilable Encounter Details Date Type Department Care Team (Late st Contact Info) Description 08/21/2016 Orders Only [facility] ProviderNeil MD [address] [place] [address] Social History Tobacco Use Types Packs/Day Years Used Date Smoking Tobacco: Never Assessed Sex and Gender Information Value Date Recorded Sex Assigned at Not on file Legal Sex 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 However, if the patient is discharged before their swab is collected, it will remain on a patient's chart for 7 days after discharge in case the patient is re-admitted elsewhere. Pt is undergoing Ring Surveillance for admission to 9400 07/27/2024 07/27/2024 07/31/2024 7:34 AM C DT Ring Surveillance Comment:C.auris Ring Surveillance Flag is placed and removed manually by IP. However, if the patient is discharged before their swab is collected, it will remain on a patient's chart for 7 days after discharge in case the patient is re-admitted elsewhere. Pt is undergoing Ring Surveillance for admission to 7300. GABBY Del Valle [facility] 08/05/2024 08/05/2024 08/13/2024 9:27 AM C DT documented as of this encounter Care Teams Skin Care Technician Relationship Specialty Start Date End Date Juanito Woodward MD [address] [place] [address] PCP - General 08/10/16 Juanito Woodward MD [address] [place] [address] 08/10/16 Nick Veliz MD [address] [id number] [place] [address] Consulting Physician Cardiothoracic Surgery 08/12/24 Miscellaneous, Not In File 08/12/24 documented as of this encounter
--- OUTSIDE RECORDS SUMMARY | 2024-08-30 13:43 | XMS_ITS | Referral Summary ---
Author Organization [facility] Address [address] [place] [address] Care Team Providers Care Puppet Maker Name Role Phone Juanito Woodward MD Primary Care Provide r Juanito Woodward MD Unavailable [phone] Nick Veliz MD Unavailable Miscellaneous, Not In File Unavailable Unava ilable Encounters Date Type Department Care Team Description 08/28/[address] [place] [id number] Gabriela Brand RN Cardiac Rehab 07/25/2024 3:08 AM CDT - 08/12/2024 7:20 PM CDT Hospital Encounter [address] [phone] Nick Veliz MD Giacomino, Bria Dugolenski, DO Aortic stenosis, severe (Primary Dx); Aortic valve stenosis, etiology of cardiac valve disease unspecified; Atrial fibrillation with rapid ventricular response (HCC) Discharge Disposition: Discharge to an Rehab facility 07/30/2024 8:00 AM CDT Ancillary Procedure [facility] Operating Room [address] [place] [phone] 07/30/2024 8:00 AM CDT - 07/30/2024 4:50 PM CDT Surgery [facility] Operating Room [address] [place] [address] Nick Veliz MD REPLACEMENT AORTIC VALVE - MAGNA BIOPROSTHESIS 25 MM 07/30/2024 7:57 AM CDT Anesthesia Event [facility] Operating Room [address] [place] [address] Abhi Martinez MD Fischer, Elissa U., NP 07/29/2024 11:00 AM CDT - 07/29/2024 11:59 PM CDT Hospital Encounter [facility] Pulmonary [address] [place] [address] Discharge Disposition: Discharge to home or self care 07/29/2024 9:05 AM CDT Ancillary Procedure [facility] Vascular Lab IP [address] [facility] [address] [place] [address] 07/28/2024 1:42 PM CDT - 07/28/2024 3:32 PM CDT Surgery [facility] [address] [place] [address] Peter Kulkarni MD PhD RIGHT HEART CATHETERIZATION [id number] 06/23/[address] [facility] Orthopaedic Surgery [address] [place] [address] Advanced Medicine 6th [place] [address] [place] [address] Sushant Andrew MD 06/21/2024 6:27 AM NOVELTIES SALES REPRESENTATIVE - 06/22/2024 1:09 PM NOVELTIES SALES REPRESENTATIVE Hospital Encounter [address] [phone] Zana Kelley MD Watson, Nelson Eason MD [...] Months Allergies No known active allergies Medications acetaminophen 500 mg capsuleIndicatio ns:Fever,Pain Take 2 capsules (1,000 mg total) by mouth every 6 (six) hours as needed for headaches 5 Active amiodarone (PACERONE) 200 mg tablet Take 1 tablet (200 mg total) by mouth daily 5 08/14/19 26 Active aspirin 81 mg chewable tablet Take 1 tablet (81 mg total) by mouth daily 5 08/14/19 26 Active folic acid (FOLVITE) 1 mg tablet Take 1 tablet (1 mg total) by mouth daily 5 08/14/19 26 Active furosemide (LASIX) 80 mg tablet Take 1 tablet (80 mg total) by mouth 2 (two) times a day 5 08/14/19 26 Active magnesium oxide (MAG-OX) 400 mg (241.3 mg elemental magnesium) tabletIndication s:hypomagnesemia Take 2 tablets (800 mg total) by mouth 2 (two) times a day 5 08/13/19 26 Active multivit lqdmfezl-okgl-ON -calcium (THERA-M) 9 mg iron-400 mcg tablet Take 1 tablet by mouth daily 5 Active polyvinyl alcohol-povidone (REFRESH CLASSIC) 1.4-0.6 % dropperette Administer 1 drop into both eyes 3 (three) times a day 5 Active potassium chloride ER (KLOR-CON) 20 mEq CR tabletIndication s:With Lasix Take 2 tablets (40 mEq total) by mouth 2 (two) times a day 5 08/13/19 26 Active ramelteon (ROZEREM) 8 mg tabletIndication s:Sleep-Onset Insomnia Take 1 tablet (8 mg total) by mouth nightly as needed for sleep 5 08/13/19 26 Active senna (SENOKOT) 8.6 mg tabletIndication s:constipation Take 1 tablet by mouth 2 (two) times a day 5 08/13/19 26 Active tamsulosin (FLOMAX) 0.4 mg extended release capsule Take 1 capsule (0.4 mg total) by mouth daily with dinner 5 Active thiamine (VITAMIN B1) 100 mg tablet Take 1 tablet (100 mg total) by mouth daily 5 08/14/19 26 Active white petrolatum-station examiner al oil (REFRESH PM) ointment Apply 1 Application to left eye 2 (two) times a day 5 Active eszopiclone (LUNESTA) 1 mg tabletIndication s:Insomnia Take 1 tablet (1 mg total) by mouth nightly Take immediately before bedtime 5 Active Active Problems Problem Noted Date Diagnosed Date Mitral stenosis 08/06/2024 Assessment & Plan (08/11/2024 10:36 AM CDT): Prior EF>70% 04/2023, OSH TTE with EF 35-40% iso worsening and volume overload S/p 4/2 MVr (32mm ben annuloplasty band), AVR(25mm Magna), ascending aortic graft, Left atrial MAZE, JORGE, and Impella 5.5 insertion. Continue current medical tx Plan to repeat TTE tomorrow 08/12 (OR within 2 days of discharge - Per Dr Veliz) See problem Assessment & Plan (2024 1:30 PM CDT): Prior EF>70% 04/2023, OSH TTE with EF 35-40% iso worsening and volume overload S/p 4/2 MVr (32mm ben annuloplasty band), AVR(25mm Magna), ascending aortic graft, Left atrial MAZE, JORGE, and Impella 5.5 insertion. Continue current medical tx Plan to repeat TTE on Sunday (ordered) See problem Pleural effusion 08/06/2024 Assessment & Plan (08/11/2024 10:36 AM CDT): CXR 08/05 Bibasilar atelectasis, pleural effusion R>L Remains on RA - Lasix 80 mg IV TID (Milrinone was stopped on 08/08) transition to lasix 80mg po BID today - Pulmonary hygiene with IS, acapella, and C&DB Assessment & Plan (2024 1:25 PM CDT): CXR 08/05 Bibasilar atelectasis, pleural effusion R>L Remains on RA - continue Lasix 80 mg IV TID (Milrinone was stopped on 08/08) - Pulmonary hygiene with IS, acapella, and C&DB Anemia 08/06/2024 Assessment & Plan (08/11/2024 10:42 AM CDT): Likely ABLA related to surgery. Hgb stable, 9.8 today -No current indication for transfusion, consider if patient becomes hemodynamically unstable with increased pressor requirements or Hgb < 8 and symptomatic -CBC daily Assessment & Plan (2024 1:31 PM CDT): Likely ABLA related to surgery. Hgb stable @ 9.0 - No current indication for transfusion, consider if patient becomes hemodynamically unstable with increased pressor requirements or Hgb < 8 and symptomatic - CBC daily - Consider Fe supplement Atrial fibrillation with rapid ventricular respo nse 07/27/2024 Assessment & Plan (08/11/2024 11:38 AM CDT): New onset ISO critical , new HFrEF, volume overload. On Amio gtt at OSH and transitioned to Amio PO load Now S/p left atrial MAZE , JORGE Continue telemetry Currently SR 70s Amiodarone 400 mg po qd Daily 12 lead ECG-QTC 504 Wires capped - plan to remove today No AC at this time per Dr. Veliz Assessment & Plan (2024 2:31 PM CDT): New onset ISO critical , new HFrEF, volume overload. On Amio gtt at OSH and transitioned to Amio PO load Now S/p left atrial MAZE , JORGE Continue telemetry Currently SR 70s Reduce Amiodarone dosing to 400 mg po qd Daily 12 lead ECG-QTC 558 Remains VVI backup at 50 bpm No AC at this time per Dr. Veliz Plan to remove wires on Sunday/Sunday-ask Dr. Veliz Heart failure with reduced ejection fraction Assessment & Plan (08/11/2024 10:39 AM CDT): 4/2: MVr (32mm ben annuloplasty band), AVR(25mm Magna), ascending aortic graft, Left atrial MAZE, JORGE, and Impella 5.5 insertion. 08/03: Impella removed GDMT when able Daily weights, strict I/Os Exam and symptoms improving - transition lasix to 80mg po BID Lymph edema wraps ordered-tubigrips applied Milrinone weaned off Repeat TTE 1-2 days before he is discharged to facility - pt looking at [facility] for rehab, check with CM about timing of d/c DO NOT send pt out with iodoform packing in the impella site, only dry gauze but continue the gentle packing daily while in patient Assessment & Plan (2024 1:30 PM CDT): 4/2: MVr (32mm ben annuloplasty band), AVR(25mm Magna), ascending aortic graft, Left atrial MAZE, JORGE, and Impella 5.5 insertion. 08/03: Impella removed GDMT when able Daily weights, strict I/Os Continue Lasix 80 mg IV TID Lymph edema wraps ordered-tubigrips applied Milrinone weaned off Repeat TTE ordered for Sunday Alcohol use disorder 07/27/2024 Assessment & Plan (08/11/2024 10:42 AM CDT): Patient drinks 4-5 beers, 1-2 glasses wine, 1-2 glasses scotch daily. Last drink 07/21. No prior withdrawal, DTs, etc. CIWA protocol with PRN ativan -Continue Folate -Continue Thiamine -Monitor for withdraw symptoms Assessment & Plan (08/07/2024 2:25 PM CDT): Patient drinks 4-5 beers, 1-2 glasses wine, 1-2 glasses scotch daily. Last drink 07/21. No prior withdrawal, DTs, etc. CIWA protocol with PRN ativan - Continue Folate - Continue Thiamine - Monitor for withdraw symptoms Aortic stenosis, severe 07/25/2024 Assessment & Plan (08/11/2024 10:42 AM CDT): Presented to OSH on 07/22/24 with increasing PRESSLEY, presyncope, and lower extremity edema. He was also in afib with RVR at the time. TTE showed EF 35-40%, with OBED with 0.47 cm2, mean gradient 27mmHg, peak velocity 3.8 m/s. 07/25 he was transferred to [facility] for surgical evaluation. 07/30: MVr (32mm ben annuloplasty band), AVR(25mm Magna), ascending aortic graft, Left atrial MAZE, JORGE, and Impella 5.5 insertion. 08/03: Impella removed AMILCAR (07/30) demonstrated EF 35%, moderate RV dysfunction, no residual MR, MV ring in place, biosprosthetic AV in place with interrogation limited by Impella placement on Epinephrine and Impella 5.5 TTE (08/05): LVEF 51%, normal RV function on Mil 0.2, post Impella removal Hemodynamically support on: Milrinone 0.2 - wean Milrinone to 0.1 mcg/kg/min (weaned off on 08/08) - Daily ASA - Goal MAP 65-75 - EPW capped - transition IV lasix to 80mg po BID - Hold BB while on inotropic support - will need TTE prior to discharge (see above) - dressing care to Impella site with iodoform gentle packing but only dry gauze at discharge - PT/OT -Plan to remove Wires today Assessment & Plan (2024 2:31 PM CDT): Presented to OSH on 07/22/24 with increasing PRESSLEY, presyncope, and lower extremity edema. He was also in afib with RVR at the time. TTE showed EF 35-40%, with OBED with 0.47 cm2, mean gradient 27mmHg, peak velocity 3.8 m/s. 07/25 he was transferred to [facility] for surgical evaluation. 07/30: MVr (32mm ben annuloplasty band), AVR(25mm Magna), ascending aortic graft, Left atrial MAZE, JORGE, and Impella 5.5 insertion. 08/03: Impella removed AMILCAR (07/30) demonstrated EF 35%, moderate RV dysfunction, no residual MR, MV ring in place, biosprosthetic AV in place with interrogation limited by Impella placement on Epinephrine and Impella 5.5 TTE (08/05): LVEF 51%, normal RV function on Mil 0.2, post Impella removal Hemodynamically support on: Milrinone 0.2 - wean Milrinone to 0.1 mcg/kg/min (weaned off on 08/08) - Daily ASA - Goal MAP 65-75 - EPW VVI@40 - Continue Lasix 80 mg IV TID - Hold BB while on inotropic support - will need TTE prior to discharge - PT/OT Plan to remove Wires on Sunday/Sunday-per Dr. Veliz Humeral head fracture, right, closed, initial en counter 06/21/2024 Assessment & Plan (06/22/2024 7:30 AM NOVELTIES SALES REPRESENTATIVE): -right shoulder dislocation and humeral head fracture s/p reduction by ortho in the ED -continue sling, RUE NWB -pain control with tylenol, ketorolac, and PRN oxycodone -ortho to set up outpatient follow up Acute respiratory failure 06/21/2024 Assessment & Plan (06/22/2024 7:30 AM NOVELTIES SALES REPRESENTATIVE): -unclear etiology, suspect community acquired pneumonia, atelectasis, pulmonary contusion -noted to be hypoxic in the ED requiring opti-flow, now weaned to 2L nasal cannula -wean as tolerated for SpO2 > 92% -infectious work up pending with blood cultures and UA, empiric antibiotics with azithromycin and ceftriaxone -pain control for rib fractures -pulmonary toilet, IS -bronchodilators PRN Alcohol abuse, daily use 06/21/2024 Assessment & Plan (06/22/2024 7:30 AM NOVELTIES SALES REPRESENTATIVE): -reportedly drinks 4-5 beers/day. Denies history of withdrawal or seizures in the past -ETOH level 31 in ED -monitor for signs of withdrawal, CIWA protocol HTN (hypertension) 06/21/2024 Assessment & Plan (08/11/2024 10:37 AM CDT): Hold home Losartan 100, Amlodipine 10. Monitor vital signs q 4 hrs Milrinone weaned off Continue diuresis - transition to po lasix as above Remains normotensive Assessment & Plan (08/08/2024 12:58 PM CDT): Hold home Losartan 100, Amlodipine 10. Monitor vital signs q 4 hrs Milrinone weaned off Continue diuresis as Lasix IV 80 mg TID Assessment & Plan (06/21/2024 4:02 PM NOVELTIES SALES REPRESENTATIVE): -continue amlodipine and losartan Resolved Problems Problem Noted Date Diagnosed Date Resolved Date Hyponatremia 06/21/2024 07/27/2024 Assessment & Plan (06/21/2024 4:05 PM NOVELTIES SALES REPRESENTATIVE): -chronic per patient, unclear etiology -sodium tabs prescribed as outpatient, continue for now. Social History Tobacco Use Types Packs/Day Years Used Date Smoking Tobacco: Former Cigarettes Q uit: 06/21/1989 Tobacco Cessation:Counseling Given: Not Answered AUDIT-C Answer Date Recorded Q1: How often do you have a drink containing alcohol? 4 or more times a week 07/30/2024 Q2: How many drinks containi ng alcohol do you have on a typical day when you are drinking? 7 to 9 Q3: How often do you have si x or more drinks on one occasion? Daily or almost daily 07/30/2024 Personal Safety Answer Date Recorded Have you ever been in or are you currently in a harmful physical or emotional relationship or is someone making you feel afraid or unsafe? Denies 07/30/2024 Sex and Gender Information Value Date Recorded Sex Assigned at Not on file Legal Sex Male 1:55 AM NOVELTIES SALES REPRESENTATIVE Gender Identity Not on file Sexual Orientation Not on file Last Filed Vital Signs Vital Sign Reading Time Taken Comments Blood Pressure 137/73 08/12/2024 5:55 PM CDT Pulse 75 08/12/2024 5:55 PM CDT Temperature 36.6 C (97.9 F) 08/12/2024 5:55 PM CDT Respiratory Rate 16 08/12/2024 5:55 PM CDT Oxygen Saturation 100% 08/12/2024 5:55 PM CDT Inhaled Oxygen Concentration - - Weight 89.2 kg (196 lb 10.4 oz) 025 12:20 AM CDT Height 185.4 cm (6' 1 ) 07/25/2024 3:20 AM CDT Body Mass Index 25.94 07/25/2024 3:20 AM CDT Plan of Treatment Not on file Medical Devices Implanted Type Area Systems Support Officer Device Identifier Shelf Expiration Date Model / Serial / Lot Terumo Cardio Vascular Gelweave 10mm 30cm Suture Retention Unique Hydrolyzable Abdomen [id number] - [id number] - [id number] Implanted:Qty: 1 on 07/30/2024 by Nick Veliz MD at [facility] Other - see comments N/A: Heart [employer]um[employer] Cardio Vascular [id number] 04/29/2027 [id number] / [id number] / [id number] Atricure Device Closure Atriclip Nitinol Polyester 45 D L35mm L6cm Flexible Shaft Plunger Valve Repairer Reclamation Left Atrial Appendage Exclusion System [id number] - [id number] - [id number] Implanted:Qty: 1 on 07/30/2024 by Nick Veliz MD at [facility] Other - see comments N/A: Heart Atric[employer] 04/30/2027 [id number] / [id number] / [id number] [employer] Ben-Cristi ds 32mm 39.6mm 31.9mm 70.4mm Flexible Band Template [id number] - [id number] - [id number] Implanted:Qty: 1 on 07/30/2024 by Nick Veliz MD at [facility] Other - see comments N/A: Mitral Valve [employer] [id number] 10/16/2027 [id number] / [id number] / 0 [employer] Kit Ventricular Assist Device Pump Percutaneous Impella 5.5 Smartassist [id number] - [id number] - [id number] Implanted:Qty: 1 on 07/30/2024 by Nick Veliz MD at [facility] Other - see comments N/A: Heart [employer] [id number] 12/28/2025 [id number] / [id number] / [id number] Description:S/B Clinical Tri al device [id number] 5.5 [id number] per [facility] Trial B2B Sales Professional [employer] Magna Ease 25mm [id number] - [id number] - [id number] Implanted:Qty: 1 on 07/30/2024 by Nick Veliz MD at [facility] Prosthetic Valve N/A: Aortic Valve [employer] [id number] 10/17/2027 [id number] / [id number] / 0 Procedures Procedure Name Priority Date/Time Associated Diagnosis Comments PRO B-TYPE NATRIURETIC PEPTIDE STAT 08/12/2024 9:56 AM CDT TRANSTHORACIC ECHO (TTE) COMPLETE W DOPPLER/CF W CONTRAST ED Urgent/IP Urgent 08/12/2024 8:32 AM CDT EGFR Timed 08/11/2024 8:16 PM CDT MAGNESIUM Routine 08/11/2024 8:16 PM CDT TYPE AND SCREEN Timed 08/11/2024 8:16 PM CDT PHOSPHORUS Routine 08/11/2024 8:16 PM CDT CBC WITHOUT DIFFERENTIAL Routine 08/11/2024 8:16 PM CDT BASIC METABOLIC PANEL Timed 08/11/2024 8:16 PM CDT EGFR Timed 08/11/2024 9:02 AM CDT BASIC METABOLIC PANEL Timed 08/11/2024 9:02 AM CDT INFECTION PREVENTION JOCE AURIS PCR, SURVEILLANCE Routine 08/11/2024 7:55 AM CDT EGFR Timed 08/10/2024 10:07 PM CDT MAGNESIUM Routine 08/10/2024 10:07 PM CDT HEPATIC FUNCTION PANEL Timed 10:07 PM CDT PHOSPHORUS Routine 08/10/2024 10:07 PM CDT CBC WITHOUT DIFFERENTIAL Routine 08/10/2024 10:07 PM CDT BASIC METABOLIC PANEL Timed 08/10/2024 10:07 PM CDT EGFR Timed 08/10/2024 8:59 AM CDT BASIC METABOLIC PANEL Timed 08/10/2024 8:59 AM CDT EGFR Timed 2024 8:38 PM CDT MAGNESIUM Routine 2024 8:38 PM CDT PHOSPHORUS Routine 2024 8:38 PM CDT CBC WITHOUT DIFFERENTIAL Routine 2024 8:38 PM CDT BASIC METABOLIC PANEL Timed 2024 8:38 PM CDT XR CHEST PA LATERAL 2 VIEWS Timed 2024 10:38 AM CDT ECG 12-LEAD Routine 2024 8:09 AM CDT LACTATE Routine 2024 6:27 AM CDT EGFR Timed 08/08/2024 10:48 PM CDT MAGNESIUM Routine 08/08/2024 10:48 PM CDT TYPE AND SCREEN Timed 08/08/2024 10:48 PM CDT PHOSPHORUS Routine 08/08/2024 10:48 PM CDT CBC WITHOUT DIFFERENTIAL Routine 08/08/2024 10:48 PM CDT BASIC METABOLIC PANEL Timed 08/08/2024 10:48 PM CDT INFECTION PREVENTION JOCE AURIS PCR, SURVEILLANCE Routine 08/08/2024 12:43 PM CDT EGFR Timed 08/08/2024 8:02 AM CDT BASIC METABOLIC PANEL Timed 08/08/2024 8:02 AM CDT ECG 12-LEAD Routine 08/08/2024 3:37 AM CDT EGFR Timed 08/07/2024 10:12 PM CDT MAGNESIUM Timed 08/07/2024 10:12 PM CDT HEPATIC FUNCTION PANEL Timed 10:12 PM CDT PHOSPHORUS Routine 08/07/2024 10:12 PM CDT CBC WITHOUT DIFFERENTIAL Routine 08/07/2024 10:12 PM CDT BASIC METABOLIC PANEL Timed 08/07/2024 10:12 PM CDT EGFR Timed 08/07/2024 8:19 AM CDT BASIC METABOLIC PANEL Timed 08/07/2024 8:19 AM CDT EGFR Routine 08/06/2024 9:13 PM CDT PHOSPHORUS Routine 08/06/2024 9:13 PM CDT MAGNESIUM Routine 08/06/2024 9:13 PM CDT CBC WITHOUT DIFFERENTIAL Routine 08/06/2024 9:13 PM CDT BASIC METABOLIC PANEL Routine 08/06/2024 9:13 PM CDT XR CHEST PA LATERAL 2 VIEWS IP Routine 08/06/2024 11:46 AM CDT ECG 12-LEAD Routine 08/06/2024 5:53 AM CDT EGFR Routine 08/05/2024 8:19 PM CDT TYPE AND SCREEN Timed 08/05/2024 8:19 PM CDT PHOSPHORUS Routine 08/05/2024 8:19 PM CDT MAGNESIUM Routine 08/05/2024 8:19 PM CDT CBC WITHOUT DIFFERENTIAL Routine 08/05/2024 8:19 PM CDT BASIC METABOLIC PANEL Routine 08/05/2024 8:19 PM CDT INFECTION PREVENTION JOCE AURIS PCR, SURVEILLANCE Routine 08/05/2024 4:41 PM CDT ECG 12-LEAD STAT 08/05/2024 2:54 PM CDT POCT GLUCOSE DEVICE Routine 08/05/2024 12:04 PM CDT POTASSIUM, WHOLE BLOOD STAT 12:04 PM CDT POCT GLUCOSE DEVICE Routine 08/05/2024 8 :07 AM CDT POTASSIUM, WHOLE BLOOD STAT 8:02 AM CDT CRITICAL CARE Routine 08/05/2024 6:15 AM CDT Aortic stenosis, severe CRITICAL CARE Routine 08/04/2024 10:03 PM CDT Atrial fibrillation with rapid ventricular response (HCC) POC BLOOD GAS AND CHEMISTRIES, VENOUS Routine 08/04/2024 9:41 PM CDT CBC WITHOUT DIFFERENTIAL STAT 08/04/2024 9:18 PM CDT EGFR Routine 08/04/2024 8:52 PM CDT TYPE AND SCREEN Timed 08/04/2024 8:52 PM CDT BASIC METABOLIC PANEL Routine 08/04/2024 8:52 PM CDT HEPATIC FUNCTION PANEL Routine 8:52 PM CDT PHOSPHORUS Routine 08/04/2024 8:52 PM CDT MAGNESIUM Routine 08/04/2024 8:52 PM CDT XR CHEST 1 VIEW IP Routine 08/04/2024 7:50 PM CDT TRANSTHORACIC ECHO (TTE) LIMITED/FOLLOW UP W LTD DOPPLER/CF W CONTRAST ED Urgent/IP Urgent 08/04/2024 12:01 PM CDT POTASSIUM, WHOLE BLOOD Routine 7:43 AM CDT CRITICAL CARE Routine 08/04/2024 6:49 AM CDT Aortic stenosis, severe EGFR Routine 08/04/2024 12:01 AM CDT OXYHEMOGLOBIN, PULMONARY ARTERY STAT 08/04/2024 12:01 AM CDT BLOOD GAS, ARTERIAL STAT 08/04/2024 12:01 AM CDT POTASSIUM, WHOLE BLOOD STAT 12:01 AM CDT BASIC METABOLIC PANEL Routine 08/04/2024 12:01 AM CDT CBC WITHOUT DIFFERENTIAL Routine 08/04/2024 12:01 AM CDT CREATINE KINASE (CK), TOTAL Routine 08/04/2024 12:01 AM CDT LACTATE, WHOLE BLOOD Routine 08/04/2024 12:01 AM CDT HEPATIC FUNCTION PANEL Routine 12:01 AM CDT PHOSPHORUS Routine 08/04/2024 12:01 AM CDT MAGNESIUM Routine 08/04/2024 12:01 AM CDT XR CHEST 1 VIEW IP Routine 08/03/2024 7:21 PM CDT CRITICAL CARE Routine 08/03/2024 6:40 PM CDT Aortic stenosis, severe OXYHEMOGLOBIN, PULMONARY ARTERY STAT 08/03/2024 6:06 PM CDT BLOOD CULTURE Routine 08/03/2024 5:27 PM CDT BLOOD CULTURE Routine 08/03/2024 5:27 PM CDT POTASSIUM, WHOLE BLOOD STAT 8:36 AM CDT CRITICAL CARE Routine 08/03/2024 6:55 AM CDT Aortic stenosis, severe BASIC METABOLIC PANEL Routine 08/03/2024 12:10 AM CDT EGFR Routine 08/03/2024 12:10 AM CDT HEPARIN ANTI FACTOR XA ACTIVITY Timed 08/03/2024 12:10 AM CDT FIBRINOGEN Timed 08/03/2024 12:10 AM CDT LACTATE, WHOLE BLOOD STAT 08/03/2024 12:10 AM CDT HEMOGLOBIN TOTAL, PULMONARY ARTERY STAT 08/03/2024 12:10 AM CDT OXYHEMOGLOBIN, PULMONARY ARTERY STAT 08/03/2024 12:10 AM CDT BLOOD GAS, ARTERIAL STAT 08/03/2024 12:10 AM CDT CREATINE KINASE (CK), TOTAL Routine 08/03/2024 12:10 AM CDT OXYHEMOGLOBIN, CENTRAL VENOUS Routine 08/03/2024 12:10 AM CDT LACTATE DEHYDROGENASE Routine 08/03/2024 12:10 AM CDT HEPATIC FUNCTION PANEL Routine 12:10 AM CDT HEMOGLOBIN, PLASMA Routine 08/03/2024 12:10 AM CDT LACTATE Routine 08/03/2024 12:10 AM CDT PHOSPHORUS Routine 08/03/2024 12:10 AM CDT MAGNESIUM Routine 08/03/2024 12:10 AM CDT APTT Timed 08/03/2024 12:10 AM CDT PROTIME-INR Timed 08/03/2024 12:10 AM CDT CBC WITHOUT DIFFERENTIAL Timed 08/03/2024 12:10 AM CDT XR CHEST 1 VIEW IP Routine 08/02/2024 8:57 PM CDT POCT GLUCOSE DEVICE Routine 08/02/2024 8 :15 PM CDT CRITICAL CARE Routine 08/02/2024 6:53 PM CDT Aortic stenosis, severe POCT GLUCOSE DEVICE Routine 08/02/2024 6 :12 PM CDT EGFR Timed 08/02/2024 3:30 PM CDT HEPARIN ANTI FACTOR XA ACTIVITY Timed 08/02/2024 3:30 PM CDT OXYHEMOGLOBIN, PULMONARY ARTERY STAT 08/02/2024 3:30 PM CDT BLOOD GAS, ARTERIAL STAT 08/02/2024 3 :30 PM CDT POTASSIUM, WHOLE BLOOD STAT 3:30 PM CDT HEMOGLOBIN TOTAL, PULMONARY ARTERY STAT 08/02/2024 3:30 PM CDT LACTATE, WHOLE BLOOD STAT 08/02/2024 3:30 PM CDT CBC WITHOUT DIFFERENTIAL STAT 08/02/2024 3:30 PM CDT TYPE AND SCREEN Timed 08/02/2024 3:30 PM CDT BASIC METABOLIC PANEL Timed 08/02/2024 3:30 PM CDT APTT Timed 08/02/2024 3:30 PM CDT PROTIME-INR Timed 08/02/2024 3:30 PM CDT POCT GLUCOSE DEVICE Routine 08/02/2024 3 :24 PM CDT TRANSTHORACIC ECHO (TTE) LIMITED/FOLLOW UP W LTD DOPPLER/CF W CONTRAST STAT 08/02/2024 2:23 PM CDT CALCIUM, IONIZED STAT 08/02/2024 8:43 AM CDT LACTATE STAT 08/02/2024 8:43 AM CDT OXYHEMOGLOBIN, PULMONARY ARTERY STAT 08/02/2024 8:43 AM CDT BLOOD GAS, ARTERIAL STAT 08/02/2024 8 :43 AM CDT HEMOGLOBIN TOTAL, PULMONARY ARTERY STAT 08/02/2024 8:43 AM CDT POCT GLUCOSE DEVICE Routine 08/02/2024 8 :32 AM CDT CRITICAL CARE Routine 08/02/2024 6:55 AM CDT Aortic stenosis, severe HEMOGLOBIN TOTAL, PULMONARY ARTERY STAT 08/02/2024 4:06 AM CDT BLOOD GAS, ARTERIAL STAT 08/02/2024 4:06 AM CDT OXYHEMOGLOBIN, PULMONARY ARTERY STAT 08/02/2024 4:06 AM CDT POCT GLUCOSE DEVICE Routine 08/02/2024 4 :04 AM CDT EGFR Timed 08/02/2024 12:47 AM CDT FIBRINOGEN Timed 08/02/2024 12:47 AM CDT CREATINE KINASE (CK), TOTAL Routine 08/02/2024 12:47 AM CDT LACTATE DEHYDROGENASE Routine 08/02/2024 12:47 AM CDT HEPATIC FUNCTION PANEL Routine 12:47 AM CDT LACTATE Routine 08/02/2024 12:47 AM CDT PHOSPHORUS Routine 08/02/2024 12:47 AM CDT MAGNESIUM Routine 08/02/2024 12:47 AM CDT BASIC METABOLIC PANEL Timed 08/02/2024 12:47 AM CDT APTT Timed 08/02/2024 12:47 AM CDT PROTIME-INR Timed 08/02/2024 12:47 AM CDT HEPARIN ANTI FACTOR XA ACTIVITY Timed 08/02/2024 12:47 AM CDT BLOOD GAS, ARTERIAL STAT 08/02/2024 12:23 AM CDT OXYHEMOGLOBIN, PULMONARY ARTERY Routine 08/02/2024 12:23 AM CDT OXYHEMOGLOBIN, CENTRAL VENOUS Routine 08/02/2024 12:23 AM CDT LACTATE, WHOLE BLOOD Routine 08/02/2024 12:23 AM CDT HEMOGLOBIN, PLASMA Routine 08/02/2024 12:23 AM CDT CBC WITHOUT DIFFERENTIAL Timed 08/02/2024 12:23 AM CDT XR CHEST 1 VIEW IP Routine 08/01/2024 9:27 PM CDT POTASSIUM, WHOLE BLOOD STAT 8:34 PM CDT HEMOGLOBIN TOTAL, PULMONARY ARTERY STAT 08/01/2024 8:34 PM CDT BLOOD GAS, ARTERIAL STAT 08/01/2024 8 :34 PM CDT OXYHEMOGLOBIN, PULMONARY ARTERY STAT 08/01/2024 8:34 PM CDT POCT GLUCOSE DEVICE Routine 08/01/2024 8 :33 PM CDT CRITICAL CARE Routine 08/01/2024 7:18 PM CDT Aortic stenosis, severe HEMOGLOBIN TOTAL, PULMONARY ARTERY STAT 08/01/2024 3:34 PM CDT POTASSIUM, WHOLE BLOOD STAT 3:34 PM CDT BLOOD GAS, ARTERIAL STAT 08/01/2024 3 :34 PM CDT OXYHEMOGLOBIN, PULMONARY ARTERY STAT 08/01/2024 3:34 PM CDT POCT GLUCOSE DEVICE Routine 08/01/2024 3 :30 PM CDT HEPARIN ANTI FACTOR XA ACTIVITY Timed 08/01/2024 11:50 AM CDT EGFR Timed 08/01/2024 11:50 AM CDT HEMOGLOBIN TOTAL, PULMONARY ARTERY STAT 08/01/2024 11:50 AM CDT POTASSIUM, WHOLE BLOOD STAT 11:50 AM CDT OXYHEMOGLOBIN, PULMONARY ARTERY STAT 08/01/2024 11:50 AM CDT BASIC METABOLIC PANEL Timed 08/01/2024 11:50 AM CDT APTT Timed 08/01/2024 11:50 AM CDT PROTIME-INR Timed 08/01/2024 11:50 AM CDT CBC WITHOUT DIFFERENTIAL Timed 08/01/2024 11:50 AM CDT POCT GLUCOSE DEVICE Routine 08/01/2024 11:48 AM CDT OXYHEMOGLOBIN, PULMONARY ARTERY STAT 08/01/2024 7:59 AM CDT HEMOGLOBIN TOTAL, PULMONARY ARTERY STAT 08/01/2024 7:59 AM CDT BLOOD GAS, ARTERIAL STAT 08/01/2024 7 :59 AM CDT POTASSIUM, WHOLE BLOOD STAT 7:59 AM CDT POCT GLUCOSE DEVICE Routine 08/01/2024 7 :54 AM CDT CRITICAL CARE Routine 08/01/2024 7:00 AM CDT Aortic stenosis, severe POCT GLUCOSE DEVICE Routine 08/01/2024 6 :17 AM CDT POCT GLUCOSE DEVICE Routine 08/01/2024 5 :12 AM CDT HEMOGLOBIN TOTAL, PULMONARY ARTERY STAT 08/01/2024 5:11 AM CDT BLOOD GAS, ARTERIAL STAT 08/01/2024 5 :11 AM CDT OXYHEMOGLOBIN, PULMONARY ARTERY STAT 08/01/2024 5:11 AM CDT POCT GLUCOSE DEVICE Routine 08/01/2024 4 :01 AM CDT POCT GLUCOSE DEVICE Routine 08/01/2024 2 :16 AM CDT POCT GLUCOSE DEVICE Routine 08/01/2024 1 :27 AM CDT HEPARIN ANTI FACTOR XA ACTIVITY Timed 08/01/2024 12:26 AM CDT FIBRINOGEN Timed 08/01/2024 12:26 AM CDT BASIC METABOLIC PANEL Routine 08/01/2024 12:26 AM CDT EGFR Routine 08/01/2024 12:26 AM CDT LACTATE, WHOLE BLOOD STAT 08/01/2024 12:26 AM CDT POTASSIUM, WHOLE BLOOD STAT 12:26 AM CDT BLOOD GAS, ARTERIAL STAT 08/01/2024 12:26 AM CDT CREATINE KINASE (CK), TOTAL Routine 08/01/2024 12:26 AM CDT OXYHEMOGLOBIN, PULMONARY ARTERY Routine 08/01/2024 12:26 AM CDT OXYHEMOGLOBIN, CENTRAL VENOUS Routine 08/01/2024 12:26 AM CDT HEPATIC FUNCTION PANEL Routine 12:26 AM CDT HEMOGLOBIN, PLASMA Routine 08/01/2024 12:26 AM CDT LACTATE DEHYDROGENASE Routine 08/01/2024 12:26 AM CDT PHOSPHORUS Routine 08/01/2024 12:26 AM CDT MAGNESIUM Routine 08/01/2024 12:26 AM CDT APTT Timed 08/01/2024 12:26 AM CDT PROTIME-INR Timed 08/01/2024 12:26 AM CDT CBC WITHOUT DIFFERENTIAL Timed 08/01/2024 12:26 AM CDT LACTATE STAT 08/01/2024 12:26 AM CDT POCT GLUCOSE DEVICE Routine 08/01/2024 12:23 AM CDT EXTUBATION Routine 07/31/2024 10:51 PM CDT POCT GLUCOSE DEVICE Routine 07/31/2024 10:10 PM CDT HEMOGLOBIN TOTAL, PULMONARY ARTERY STAT 07/31/2024 9:19 PM CDT BLOOD GAS, ARTERIAL STAT 07/31/2024 9 :19 PM CDT OXYHEMOGLOBIN, PULMONARY ARTERY STAT 07/31/2024 9:19 PM CDT POCT GLUCOSE DEVICE Routine 07/31/2024 9 :17 PM CDT XR CHEST 1 VIEW IP Routine 07/31/2024 8:55 PM CDT CRITICAL CARE Routine 07/31/2024 8:39 PM CDT Aortic stenosis, severe HEMOGLOBIN TOTAL, PULMONARY ARTERY STAT 07/31/2024 7:48 PM CDT POTASSIUM, WHOLE BLOOD STAT 7:48 PM CDT BLOOD GAS, ARTERIAL STAT 07/31/2024 7 :48 PM CDT OXYHEMOGLOBIN, PULMONARY ARTERY STAT 07/31/2024 7:48 PM CDT POCT GLUCOSE DEVICE Routine 07/31/2024 7 :44 PM CDT POCT GLUCOSE DEVICE Routine 07/31/2024 6 :15 PM CDT TRANSFUSE RED BLOOD CELLS Timed 07/31/2024 3:45 PM CDT POCT GLUCOSE DEVICE Routine 07/31/2024 3 :14 PM CDT PREPARE RBC Timed 07/31/2024 2:53 PM CDT EGFR Timed 07/31/2024 2:10 PM CDT POTASSIUM, WHOLE BLOOD STAT 2:10 PM CDT BLOOD GAS, ARTERIAL STAT 07/31/2024 2 :10 PM CDT METHEMOGLOBIN, ARTERIAL Routine 07/31/2024 2:10 PM CDT BASIC METABOLIC PANEL Timed 07/31/2024 2:10 PM CDT APTT Timed 07/31/2024 2:10 PM CDT PROTIME-INR Timed 07/31/2024 2:10 PM CDT HEPARIN ANTI FACTOR XA ACTIVITY Timed 07/31/2024 2:10 PM CDT CBC WITHOUT DIFFERENTIAL Timed 07/31/2024 2:10 PM CDT POCT GLUCOSE DEVICE Routine 07/31/2024 2 :08 PM CDT POCT GLUCOSE DEVICE Routine 07/31/2024 12:17 PM CDT REPOSITION ENDOTRACHEAL TUBE Routine 07/31/2024 12:10 PM CDT POCT GLUCOSE DEVICE Routine 07/31/2024 11:29 AM CDT EGFR Routine 07/31/2024 10:35 AM CDT HEMOGLOBIN TOTAL, PULMONARY ARTERY STAT 07/31/2024 10:35 AM CDT BLOOD GAS, ARTERIAL STAT 07/31/2024 10:35 AM CDT OXYHEMOGLOBIN, CENTRAL VENOUS STAT 07/31/2024 10:35 AM CDT OXYHEMOGLOBIN, PULMONARY ARTERY STAT 07/31/2024 10:35 AM CDT HEMOGLOBIN, PLASMA Routine 07/31/2024 10:35 AM CDT HEPARIN ANTI FACTOR XA ACTIVITY Routine 07/31/2024 10:35 AM CDT COMPREHENSIVE METABOLIC PANEL Routine 07/31/2024 10:35 AM CDT CREATINE KINASE (CK), TOTAL Routine 07/31/2024 10:35 AM CDT POCT GLUCOSE DEVICE Routine 07/31/2024 10:33 AM CDT POTASSIUM, WHOLE BLOOD STAT 9:57 AM CDT HEMOGLOBIN TOTAL, PULMONARY ARTERY STAT 07/31/2024 9:57 AM CDT BLOOD GAS, ARTERIAL STAT 07/31/2024 9 :57 AM CDT OXYHEMOGLOBIN, PULMONARY ARTERY STAT 07/31/2024 9:57 AM CDT CRITICAL CARE Routine 07/31/2024 8:58 AM CDT Aortic stenosis, severe XR CHEST 1 VIEW ED Urgent/IP Urgent 07/31/2024 8:48 AM CDT POCT GLUCOSE DEVICE Routine 07/31/2024 8 :29 AM CDT POCT GLUCOSE DEVICE Routine 07/31/2024 6 :58 AM CDT POCT GLUCOSE DEVICE Routine 07/31/2024 6 :04 AM CDT POCT GLUCOSE DEVICE Routine 07/31/2024 5 :26 AM CDT HEMOGLOBIN TOTAL, PULMONARY ARTERY STAT 07/31/2024 5:25 AM CDT BLOOD GAS, ARTERIAL STAT 07/31/2024 5 :25 AM CDT OXYHEMOGLOBIN, PULMONARY ARTERY STAT 07/31/2024 5:25 AM CDT LACTATE STAT 07/31/2024 5:25 AM CDT POC BLOOD GAS AND CHEMISTRIES, ARTERIAL Routine 07/31/2024 4:15 AM CDT CALCIUM,IONIZED, WHOLE BLOOD Routine 07/31/2024 3:54 AM CDT OXYHEMOGLOBIN, PULMONARY ARTERY STAT 07/31/2024 3:48 AM CDT BLOOD GAS, ARTERIAL STAT 07/31/2024 3 :48 AM CDT POTASSIUM, WHOLE BLOOD STAT 3:48 AM CDT LACTATE STAT 07/31/2024 3:48 AM CDT CBC WITHOUT DIFFERENTIAL Routine 07/31/2024 3:48 AM CDT POCT GLUCOSE DEVICE Routine 07/31/2024 3 :44 AM CDT POCT GLUCOSE DEVICE Routine 07/31/2024 2 :11 AM CDT POCT GLUCOSE DEVICE Routine 07/31/2024 1 :08 AM CDT TRANSFUSE RED BLOOD CELLS Timed 07/31/2024 1:00 AM CDT HEPATIC FUNCTION PANEL Routine 11:50 PM CDT EGFR Routine 07/30/2024 11:50 PM CDT LACTATE DEHYDROGENASE Routine 07/30/2024 11:50 PM CDT CRITICAL RESULT CALLBACK CHEMISTRY Routine 07/30/2024 11:50 PM CDT POTASSIUM, WHOLE BLOOD STAT 11:50 PM CDT BLOOD GAS, ARTERIAL STAT 07/30/2024 11:50 PM CDT OXYHEMOGLOBIN, CENTRAL VENOUS STAT 07/30/2024 11:50 PM CDT OXYHEMOGLOBIN, PULMONARY ARTERY STAT 07/30/2024 11:50 PM CDT LACTATE Routine 07/30/2024 11:50 PM CDT PHOSPHORUS Routine 07/30/2024 11:50 PM CDT MAGNESIUM Routine 07/30/2024 11:50 PM CDT BASIC METABOLIC PANEL Routine 07/30/2024 11:50 PM CDT CBC WITHOUT DIFFERENTIAL Routine 07/30/2024 11:50 PM CDT POCT GLUCOSE DEVICE Routine 07/30/2024 11:49 PM CDT POCT GLUCOSE DEVICE Routine 07/30/2024 11:04 PM CDT HEMOGLOBIN TOTAL, PULMONARY ARTERY STAT 07/30/2024 9:42 PM CDT BLOOD GAS, ARTERIAL STAT 07/30/2024 9 :42 PM CDT OXYHEMOGLOBIN, PULMONARY ARTERY STAT 07/30/2024 9:42 PM CDT POC BLOOD GAS AND CHEMISTRIES, ARTERIAL Routine 07/30/2024 9:30 PM CDT POCT GLUCOSE DEVICE Routine 07/30/2024 9 :09 PM CDT POTASSIUM, WHOLE BLOOD STAT 8:17 PM CDT POCT GLUCOSE DEVICE Routine 07/30/2024 8 :16 PM CDT HEMOGLOBIN, PLASMA Timed 07/30/2024 7: 20 PM CDT CRITICAL CARE Routine 07/30/2024 6:57 PM CDT Aortic stenosis, severe POCT GLUCOSE DEVICE Routine 07/30/2024 6 :56 PM CDT TRANSFUSE RED BLOOD CELLS Timed 07/30/2024 6:28 PM CDT PREPARE RBC Timed 07/30/2024 6:13 PM CDT POCT GLUCOSE DEVICE Routine 07/30/2024 6 :08 PM CDT XR ABDOMEN AP 1 VIEW ED Urgent/IP Urgent 07/30/2024 6:00 PM CDT XR CHEST 1 VIEW ED Urgent/IP Urgent 07/30/2024 6:00 PM CDT HEPATIC FUNCTION PANEL STAT 5:36 PM CDT EGFR STAT 07/30/2024 5:36 PM CDT LACTATE DEHYDROGENASE STAT 07/30/2024 5:36 PM CDT CBC WITHOUT DIFFERENTIAL STAT 07/30/2024 5:36 PM CDT MAGNESIUM STAT 07/30/2024 5:36 PM CDT BASIC METABOLIC PANEL STAT 07/30/2024 5:36 PM CDT PHOSPHORUS STAT 07/30/2024 5:36 PM CDT TYPE AND SCREEN Timed 07/30/2024 5:36 PM CDT POC BLOOD GAS AND CHEMISTRIES, ARTERIAL Routine 07/30/2024 5:20 PM CDT APTT STAT 07/30/2024 5:09 PM CDT PROTIME-INR STAT 07/30/2024 5:09 PM CDT CRITICAL CARE Routine 07/30/2024 5:00 PM CDT ABLATE ADDTL ARRHYTHMIA ATRIA OR VENT Routine 07/30/2024 4:56 PM CDT Aortic valve stenosis, etiology of cardiac valve disease unspecified TRANSFUSE PLASMA Timed 07/30/2024 4:49 PM CDT TRANSFUSE PLATELETS Timed 07/30/2024 4 :46 PM CDT POCT PROTHROMBIN TIME Routine 07/30/2024 4:30 PM CDT POCT PARTIAL THROMBOPLASTIN TIME (PTT) Routine 07/30/2024 4:30 PM CDT POCT PLATELET COUNT AND HEMATOCRIT Routine 07/30/2024 4:29 PM CDT PREPARE PLASMA STAT 07/30/2024 4:26 PM CDT PREPARE PLATELETS STAT 07/30/2024 4:2 6 PM CDT POCT GLUCOSE DEVICE Routine 07/30/2024 3 :51 PM CDT POC BLOOD GAS AND CHEMISTRIES, ARTERIAL Routine 07/30/2024 3:51 PM CDT TRANSFUSE CRYOPRECIPITATE (POOLED UNITS) Timed 07/30/2024 3:35 PM CDT TRANSFUSE CRYOPRECIPITATE (POOLED UNITS) Timed 07/30/2024 3:35 PM CDT PREPARE CRYOPRECIPITATE (POOLED UNITS) STAT 07/30/2024 3:11 PM CDT POC BLOOD GAS AND CHEMISTRIES, ARTERIAL Routine 07/30/2024 2:56 PM CDT POCT PROTHROMBIN TIME Routine 07/30/2024 2:27 PM CDT POCT PARTIAL THROMBOPLASTIN TIME (PTT) Routine 07/30/2024 2:26 PM CDT POCT HEPARIN/ACT CPB Routine 07/30/2024 2:26 PM CDT POCT GLUCOSE DEVICE Routine 07/30/2024 2 :26 PM CDT POCT PLATELET COUNT AND HEMATOCRIT Routine 07/30/2024 2:25 PM CDT POC BLOOD GAS AND CHEMISTRIES, ARTERIAL Routine 07/30/2024 2:24 PM CDT POCT HEPARIN/ACT CPB Routine 07/30/2024 1:37 PM CDT POC BLOOD GAS AND CHEMISTRIES, ARTERIAL Routine 07/30/2024 1:34 PM CDT POCT HEPARIN/ACT CPB Routine 07/30/2024 1:05 PM CDT POC BLOOD GAS AND CHEMISTRIES, ARTERIAL Routine 07/30/2024 1:02 PM CDT SURGICAL PATHOLOGY Routine 07/30/2024 1: 00 PM CDT Aortic valve stenosis, etiology of cardiac valve disease unspecified POCT GLUCOSE DEVICE Routine 07/30/2024 12:39 PM CDT POCT HEPARIN/ACT CPB Routine 07/30/2024 12:38 PM CDT POC BLOOD GAS AND CHEMISTRIES, ARTERIAL Routine 07/30/2024 12:34 PM CDT POCT HEPARIN/ACT CPB Routine 07/30/2024 12:18 PM CDT POCT GLUCOSE DEVICE Routine 07/30/2024 11:46 AM CDT POCT HEPARIN/ACT CPB Routine 07/30/2024 11:44 AM CDT POC BLOOD GAS AND CHEMISTRIES, ARTERIAL Routine 07/30/2024 11:42 AM CDT POCT GLUCOSE DEVICE Routine 07/30/2024 11:18 AM CDT POCT HEPARIN/ACT CPB Routine 07/30/2024 11:08 AM CDT POC BLOOD GAS AND CHEMISTRIES, ARTERIAL Routine 07/30/2024 11:07 AM CDT POCT HEPARIN/ACT CPB Routine 07/30/2024 10:10 AM CDT POC BLOOD GAS AND CHEMISTRIES, ARTERIAL Routine 07/30/2024 10:08 AM CDT HI AN PROCEDURE PLACEHOLDER Routine 07/30/2024 9:54 AM CDT ANESTHESIA CENTRAL VENOUS LINE PLACEMENT Routine 07/30/2024 9:08 AM CDT ANESTHESIA INTUBATION Routine 07/30/2024 9:08 AM CDT ANESTHESIA ARTERIAL LINE PLACEMENT Routine 07/30/2024 9:08 AM CDT POCT HEPARIN DOSE RESPONSE, CPB Routine 07/30/2024 8:55 AM CDT POC BLOOD GAS AND CHEMISTRIES, ARTERIAL Routine 07/30/2024 8:52 AM CDT REPLACEMENT MITRAL VALVE 07/30/2024 8:02 AM CDT Aortic valve stenosis, etiology of cardiac valve disease unspecified INSERTION VENTRICULAR ASSIST DEVICE - IMPELLA 07/30/2024 8:02 AM CDT Aortic valve stenosis, etiology of cardiac valve disease unspecified ISOLATION LEFT ATRIAL APPENDAGE 07/30/2024 8:02 AM CDT Aortic valve stenosis, etiology of cardiac valve disease unspecified MAZE PROCEDURE OPEN HEART 07/30/2024 8:02 AM CDT Aortic valve stenosis, etiology of cardiac valve disease unspecified REPLACEMENT AORTIC VALVE 07/30/2024 8:02 AM CDT Aortic valve stenosis, etiology of cardiac valve disease unspecified AMILCAR ADD-ON FOR OR Routine 07/30/2024 7:5 8 AM CDT PREPARE RBC Timed 07/30/2024 5:42 AM CDT POTASSIUM, WHOLE BLOOD Timed 5:18 AM CDT ECG 12-LEAD STAT 07/30/2024 5:14 AM CDT POTASSIUM, WHOLE BLOOD Timed 12:07 AM CDT EGFR Routine 07/29/2024 5:13 PM CDT DIFFERENTIAL AUTO Routine 07/29/2024 5:1 3 PM CDT POTASSIUM, WHOLE BLOOD STAT 5:13 PM CDT BASIC METABOLIC PANEL Routine 07/29/2024 5:13 PM CDT PHOSPHORUS Routine 07/29/2024 5:13 PM CDT MAGNESIUM Routine 07/29/2024 5:13 PM CDT CBC WITH AUTO DIFFERENTIAL Routine 07/29/2024 5:13 PM CDT HEPATIC FUNCTION PANEL Routine 5:13 PM CDT TYPE AND SCREEN Timed 07/29/2024 5:13 PM CDT POCT GLUCOSE DEVICE Routine 07/29/2024 5 :05 PM CDT PREPARE RBC Timed 07/29/2024 4:07 PM CDT APTT STAT 07/29/2024 3:32 PM CDT URINALYSIS, MICROSCOPIC ONLY Routine 07/29/2024 2:43 PM CDT URINALYSIS AND REFLEX TO MICROSCOPIC AND CULTURE Routine 07/29/2024 2:43 PM CDT POCT GLUCOSE DEVICE Routine 07/29/2024 11:55 AM CDT PROTIME-INR STAT 07/29/2024 11:49 AM CDT APTT STAT 07/29/2024 11:49 AM CDT POTASSIUM, WHOLE BLOOD Timed 11:49 AM CDT PULMONARY FUNCTION TEST (PFT) STAT 07/29/2024 11:42 AM CDT US CAROTIDS DUPLEX BILATERAL ED Urgent/IP Urgent 07/29/2024 11:13 AM CDT POCT GLUCOSE DEVICE Routine 07/29/2024 8 :00 AM CDT EGFR Routine 07/28/2024 8:30 PM CDT BASIC METABOLIC PANEL Routine 07/28/2024 8:30 PM CDT PHOSPHORUS Routine 07/28/2024 8:30 PM CDT MAGNESIUM Routine 07/28/2024 8:30 PM CDT POCT GLUCOSE DEVICE Routine 07/28/2024 6 :33 PM CDT DIFFERENTIAL AUTO Routine 07/28/2024 6:3 0 PM CDT CBC WITH AUTO DIFFERENTIAL Routine 07/28/2024 6:30 PM CDT HEPATIC FUNCTION PANEL Routine 6:30 PM CDT POCT GLUCOSE DEVICE Routine 07/28/2024 5 :45 PM CDT LEFT HEART CATHETERIZATION WITH CORONARY ANGIOGRAPHY AND WITH AND WITHOUT LEFT VENTRICULOGRAM Routine 07/28/2024 5:32 PM CDT Aortic stenosis, severe RIGHT HEART CATH Routine 07/28/2024 5:32 PM CDT Aortic stenosis, severe POCT OXYHEMOGLOBIN - DEVICE Routine 07/28/2024 5:14 PM CDT POCT OXYHEMOGLOBIN - DEVICE Routine 07/28/2024 5:13 PM CDT POCT GLUCOSE DEVICE Routine 07/28/2024 12:23 PM CDT APTT STAT 07/28/2024 10:54 AM CDT POCT GLUCOSE DEVICE Routine 07/28/2024 8 :18 AM CDT TRANSTHORACIC ECHO (TTE) COMPLETE W DOPPLER/CF W CONTRAST ED Urgent/IP Urgent 07/28/2024 8:11 AM CDT APTT STAT 07/28/2024 6:12 AM CDT APTT STAT 07/28/2024 2:27 AM CDT INFECTION PREVENTION JOCE AURIS PCR, SURVEILLANCE Routine 07/28/2024 2:27 AM CDT TYPE AND SCREEN Routine 07/27/2024 10:23 PM CDT EGFR Routine 07/27/2024 10:22 PM CDT DIFFERENTIAL AUTO Routine 07/27/2024 10:22 PM CDT APTT STAT 07/27/2024 10:22 PM CDT BASIC METABOLIC PANEL Routine 07/27/2024 10:22 PM CDT CBC WITH AUTO DIFFERENTIAL Routine 07/27/2024 10:22 PM CDT PHOSPHORUS Routine 07/27/2024 10:22 PM CDT MAGNESIUM Routine 07/27/2024 10:22 PM CDT HEPATIC FUNCTION PANEL Routine 10:22 PM CDT POCT GLUCOSE DEVICE Routine 07/27/2024 4 :58 PM CDT POCT GLUCOSE DEVICE Routine 07/27/2024 12:22 PM CDT POCT GLUCOSE DEVICE Routine 07/27/2024 9 :46 AM CDT EGFR Timed 07/26/2024 8:18 PM CDT DIFFERENTIAL AUTO Routine 07/26/2024 8:1 8 PM CDT APTT STAT 07/26/2024 8:18 PM CDT CBC WITH AUTO DIFFERENTIAL Routine 07/26/2024 8:18 PM CDT HEPATIC FUNCTION PANEL Routine 8:18 PM CDT PHOSPHORUS Timed 07/26/2024 8:18 PM CDT MAGNESIUM Timed 07/26/2024 8:18 PM CDT BASIC METABOLIC PANEL Timed 07/26/2024 8:18 PM CDT POCT GLUCOSE DEVICE Routine 07/26/2024 4 :22 PM CDT POCT GLUCOSE DEVICE Routine 07/26/2024 11:37 AM CDT EGFR Timed 07/26/2024 8:39 AM CDT PHOSPHORUS Timed 07/26/2024 8:39 AM CDT MAGNESIUM Timed 07/26/2024 8:39 AM CDT BASIC METABOLIC PANEL Timed 07/26/2024 8:39 AM CDT POCT GLUCOSE DEVICE Routine 07/26/2024 7 :35 AM CDT APTT STAT 07/26/2024 2:23 AM CDT POTASSIUM, WHOLE BLOOD Timed 2:23 AM CDT POCT GLUCOSE DEVICE Routine 07/25/2024 8 :51 PM CDT EGFR Timed 07/25/2024 8:19 PM CDT DIFFERENTIAL AUTO Routine 07/25/2024 8:1 9 PM CDT CBC WITH AUTO DIFFERENTIAL Routine 07/25/2024 8:19 PM CDT HEPATIC FUNCTION PANEL Routine 8:19 PM CDT PHOSPHORUS Timed 07/25/2024 8:19 PM CDT MAGNESIUM Timed 07/25/2024 8:19 PM CDT BASIC METABOLIC PANEL Timed 07/25/2024 8:19 PM CDT POCT GLUCOSE DEVICE Routine 07/25/2024 4 :53 PM CDT APTT STAT 07/25/2024 12:29 PM CDT POCT GLUCOSE DEVICE Routine 07/25/2024 11:48 AM CDT XR CHEST 1 VIEW ED Urgent/IP Urgent 07/25/2024 11:30 AM CDT APTT STAT 07/25/2024 10:31 AM CDT THYROID FUNCTION CASCADE Timed 07/25/2024 7:58 AM CDT T4, FREE Timed 07/25/2024 7:58 AM CDT BASIC METABOLIC PANEL Timed 07/25/2024 7:58 AM CDT EGFR Timed 07/25/2024 7:58 AM CDT PHOSPHORUS Timed 07/25/2024 7:58 AM CDT MAGNESIUM Timed 07/25/2024 7:58 AM CDT POCT GLUCOSE DEVICE Routine 07/25/2024 7 :57 AM CDT APTT STAT 07/25/2024 7:53 AM CDT PROTIME-INR STAT 07/25/2024 7:53 AM CDT RESPIRATORY PATHOGEN PANEL Routine 07/25/2024 6:43 AM CDT XR CHEST 1 VIEW ED Urgent/IP Urgent 07/25/2024 4:34 AM CDT FOLATE STAT 07/25/2024 3:45 AM CDT VITAMIN B12 STAT 07/25/2024 3:45 AM CDT EGFR STAT 07/25/2024 3:45 AM CDT DIFFERENTIAL AUTO STAT 07/25/2024 3:4 5 AM CDT LIPID PANEL STAT 07/25/2024 3:45 AM CDT HEMOGLOBIN A1C STAT 07/25/2024 3:45 AM CDT PHOSPHORUS STAT 07/25/2024 3:45 AM CDT LACTATE, WHOLE BLOOD STAT 07/25/2024 3:45 AM CDT APTT STAT 07/25/2024 3:45 AM CDT PROTIME-INR STAT 07/25/2024 3:45 AM CDT TYPE AND SCREEN Timed 07/25/2024 3:45 AM CDT PRO B-TYPE NATRIURETIC PEPTIDE STAT 07/25/2024 3:45 AM CDT TROPONIN I HIGH-SENSITIVITY STAT 07/25/2024 3:45 AM CDT CBC WITH AUTO DIFFERENTIAL STAT 07/25/2024 3:45 AM CDT MAGNESIUM STAT 07/25/2024 3:45 AM CDT COMPREHENSIVE METABOLIC PANEL STAT 07/25/2024 3:45 AM CDT EGFR Routine 06/22/2024 5:59 AM [employer] REPRESENTATIVE DIFFERENTIAL AUTO Routine 06/22/2024 5:5 9 AM [employer] SAL[employer] REPRESENTATIVE PHOSPHORUS Routine 06/22/2024 5:59 AM [employer] REPRESENTATIVE MAGNESIUM Routine 06/22/2024 5:59 AM [employer] REPRESENTATIVE CBC WITH AUTO DIFFERENTIAL Routine 06/22/2024 5:59 AM [employer] SALES REPRESENTATIVE BASIC METABOLIC PANEL Routine 06/22/2024 5:59 AM [employer] SALES REPRESENTATIVE TROPONIN I HIGH-SENSITIVITY Routine 06/22/2024 5:59 AM [employer] SAL[employer] REPRESENTATIVE RPR Routine 06/22/2024 5:59 AM [employer] SALES REPRESENTATIVE HEPATITIS C ANTIBODY Routine 06/22/2024 5:59 AM [employer] REPRESENTATIVE HEPATITIS B SURFACE ANTIGEN Routine 06/22/2024 5:59 AM [employer] REPRESENTATIVE HIV 1/2 ANTIBODY PLUS P24 ANTIGEN Routine 06/22/2024 5:59 AM [employer] REPRESENTATIVE URINALYSIS, MICROSCOPIC ONLY Routine 06/21/2024 4:33 PM [employer] SALES REPRESENTATIVE URINALYSIS AND REFLEX TO MICROSCOPIC AND CULTURE Routine 06/21/2024 4:33 PM [employer] REPRESENTATIVE TROPONIN I HIGH-SENSITIVITY STAT 06/21/2024 3:57 PM [employer] SAL[employer] REPRESENTATIVE BLOOD GAS, ARTERIAL STAT 06/21/2024 3 :57 PM [employer] REPRESENTATIVE BLOOD CULTURE Routine 06/21/2024 3:57 PM [employer] SALES REPRESENTATIVE BLOOD CULTURE Routine 06/21/2024 3:57 PM [employer] SALES REPRESENTATIVE SODIUM, URINE, RANDOM Routine 06/21/2024 1:19 PM [employer] REPRESENTATIVE OSMOLALITY, URINE Routine 06/21/2024 1:1 9 PM [employer] REPRESENTATIVE OSMOLALITY, BLOOD Routine 06/21/2024 1:0 3 PM [employer] REPRESENTATIVE RESPIRATORY PATHOGEN PANEL STAT 06/21/2024 1:03 PM [employer] REPRESENTATIVE CT CHEST ABDOMEN PELVIS W CONTRAST ED 06/21/2024 12:38 PM [employer] SAL[employer] REPRESENTATIVE CT RECON THORACIC AND LUMBAR SPINE W CONTRAST ED 06/21/2024 12:38 PM [employer] REPRESENTATIVE CT SHOULDER RIGHT WO CONTRAST ED 06/21/2024 12:38 PM [employer] REPRESENTATIVE HI CRITICAL CARE ILL/INJURED PATIENT INIT 30-74 MIN Routine 06/21/2024 12:19 PM [employer] REPRESENTATIVE XR SHOULDER RIGHT 2 OR MORE VIEWS ED Urgent/IP Urgent 06/21/2024 10:21 AM [employer] SAL[employer] REPRESENTATIVE PRO B-TYPE NATRIURETIC PEPTIDE STAT 06/21/2024 8:55 AM [employer] SAL[employer] REPRESENTATIVE EGFR STAT 06/21/2024 8:55 AM [employer] SAL[employer] REPRESENTATIVE COMPREHENSIVE METABOLIC PANEL STAT 06/21/2024 8:55 AM [employer] SAL[employer] REPRESENTATIVE XR PELVIS 1 OR 2 VIEWS ED 8:51 AM [employer] REPRESENTATIVE XR CHEST 1 VIEW ED 06/21/2024 8:51 AM [employer] REPRESENTATIVE B CHECK SAMPLE STAT 06/21/2024 8:28 AM [employer] REPRESENTATIVE ECG 12-LEAD STAT 06/21/2024 7:42 AM [employer] REPRESENTATIVE EGFR STAT 06/21/2024 7:42 AM [employer] SAL[employer] REPRESENTATIVE DIFFERENTIAL AUTO STAT 06/21/2024 7:4 2 AM [employer] SAL[employer] REPRESENTATIVE ETHANOL STAT 06/21/2024 7:42 AM [employer] REPRESENTATIVE APTT STAT 06/21/2024 7:42 AM [employer] SAL[employer] REPRESENTATIVE PROTIME-INR STAT 06/21/2024 7:42 AM [employer] REPRESENTATIVE TYPE AND SCREEN STAT 06/21/2024 7:42 AM [employer] SAL[employer] REPRESENTATIVE COMPREHENSIVE METABOLIC PANEL STAT 06/21/2024 7:42 AM [employer] REPRESENTATIVE CBC WITH AUTO DIFFERENTIAL STAT 06/21/2024 7:42 AM [employer] SAL[employer] REPRESENTATIVE XR HUMERUS RIGHT 2 OR MORE VIEWS ED 06/21/2024 7:23 AM [employer] REPRESENTATIVE XR SHOULDER RIGHT 2 OR MORE VIEWS ED 06/21/2024 7:23 AM [employer] SAL[employer] REPRESENTATIVE XR TRANSFER OF OUTSIDE FILMS Routine 06/21/2024 7:22 AM [employer] SAL[employer] REPRESENTATIVE ED MODERATE SEDATION Routine 06/21/2024 5:33 AM [employer] REPRESENTATIVE from Last 3 Months Results * (ABNORMAL) Pro B-type natriuretic peptide (08/12/2024 9:56 AM CDT) NT-proBNP 1,140(H) <=300 pg/mL Comment: Interpretive Comments: A. Dyspnea [...] Interpretive Data Last Revised Date: 2017. Blood 08/12/2024 9:56 AM CDT 08/12/2024 10:42 AM CDT Narrative [facility] - 08/12/2024 11:19 AM CDT For IMPACT trial do not delete. Nick Veliz MD LAB BLOOD ORDERABLES Fin al Result [facility] Department [place] [address] * TRANSTHORACIC ECHO (TTE) COMPLETE W DOPPLER/CF W CONTRAST (08/12/2024 8:32 AM CDT) Anatomical Region Laterality Modality Ultrasound 08/12/2024 7:10 AM CDT Narrative 08/13/2024 7:58 AM CDT [facility] [place] [address] Transthoracic Echocardiographic Report Patient Name: SHEY SHAH C : 1950 (74y ) Gender: M Study Date: 08/12/2024 07:10:06 AM Ht(Inch): 73 Wt(Lb): 195.99 BSA: 2.14 Jacquard Loom Weaver: Raul Roque RDCS Location: [id number] Order Provider: TY WEINBERG Heart Rate: 78 BMI: 25.85 BP: 115 / 62 Ref Provider: TY WEINBERG PROCEDURES: Echocardiographic Report: Transthoracic complete echo with strain imaging and contrast, 2D, spectral and tissue Doppler, color flow Doppler, M-mode. Contrast: Contrast Enhancement was Employed: After initial imaging due to sub- optimal quality related to co-morbidity defined by patient's body habitus. 0.6 ml Optison Administered, (2.4 ml wasted). INDICATIONS: S/p MVR,AVR. CONCLUSIONS: 1. Normal left ventricular size based on volume index. Concentric LV remodeling. Normal left ventricular systolic function. The Ejection Fraction (Johnson's) is measured at 60 %. The average global longitudinal strain is abnormal. 2. Normal right ventricular size. 3. Status post mitral valve repair with annuloplasty ring. 4. A bioprosthetic valve is present in the aortic position. The aortic prosthesis demonstrates normal transvalvular gradient for valve type and size. 5. The estimated right ventricular systolic pressure is 35 mmHg. ATTESTATION: I have personally reviewed and interpreted this study without fellow or resident. - DISCLAIMER: The study images and the final report will be retained in the patient chart by the [facility] for the legally required time period. This chart constitutes the legal record of any testing performed. FINDINGS: Left Ventricle: Normal left ventricular size based on volume index. Concentric LV remodeling. Normal left ventricular systolic function. The Ejection Fraction (Johnson's) is measured at 60 %. The average global longitudinal strain is abnormal. The LV global strain is: -12.9 %. Right Ventricle: Normal right ventricular size. Left Atrium: Moderately dilated left atrium. Right Atrium: The right atrium is normal in size. Mitral Valve: The mitral valve area by pressure half-time is 3.6 cm2. The mean transmitral gradient is: 2 mmHg. Specific MV Structure Abnormalities: Status post mitral valve repair with annuloplasty ring. Aortic Valve: The mean transaortic gradient is 9 mmHg. The aortic valve area by the continuity equation (using VTI) is 1.75 cm2. Aortic valve dimensionless index is 0.70. A bioprosthetic valve is present in the aortic position. The aortic prosthesis demonstrates normal transvalvular gradient for valve type and size. Tricuspid Valve: Normal tricuspid valve structure. Mild tricuspid regurgitation. The estimated right ventricular systolic pressure is 35 mmHg. Pulmonic Valve: Normal pulmonic valve structure. Mild pulmonic regurgitation. Pericardium: Normal pericardium without pericardial effusion. Aorta: Normal aortic root size at sinuses of Valsalva. Normal aortic root size when indexed. The ascending aorta is normal in size when indexed. PASP: Normal estimated pulmonary artery systolic pressure. Rhythm: Normal Sinus rhythm was seen during the study. MEASUREMENTS: 2D/MM Value Range Doppler Value Range LVIDd 2D 4.52 cm [ 4.20 - 5.80 ] AV Peak Arslan 2.1 m/s [ 1.0 - 1.7 ] LVIDs 2D 3.20 cm [ 2.50 - 4.00 ] AV Peak PG 17.64 mmHg IVSd 2D 1.30 cm [ 0.60 - 1.00 ] AV Mean PG 9 mmHg LVPWd 2D 1.31 cm [ 0.60 - 1.00 ] AV VTI 36.5 cm LV Thickness Ratio 1.0 LVOT Peak Arslan 1.5 m/s [ 0.7 - 1.1 ] LV FS 2D 29.25 % [ 25.00 - 43.00 ] LVOT Peak PG 9.00 mmHg LV Mass 2D 228.30 g LVOT Mean PG 5 mmHg LV Mass Index 2D 106.68 g/m2 LVOT VTI 25.7 cm RWT 0.58 LVOT Diam 1.78 cm EDV Mod BP 131.51 ml [ 62.00 - 150.00 ] OBED VTI 1.75 cm2 LV EDV Index 61.45 ml/m2 LVOT/AV VTI 0.70 - Dimensionless index (DVI) ESV Mod BP 52.86 ml [ 21.00 - 61.00 ] MV E Peak Arslan 1.4 m/s [ 0.6 - 1.3 ] EF Mod BP 60 % [ 52 - 72 ] MV A Peak Arslan 0.4 m/s [ 1.0 - 1.2 ] LV GLS -12.9 % [ -25.0 - -18.0 ] MV E/A 3.6 ratio [ 0.8 - 1.5 ] LA Length 4C 5.48 cm MV Peak Arslan 1.4 m/s LA Length 2C 5.13 cm MV Peak PG 7.84 mmHg LA Volume BP 94.77 ml MV Mean PG 2 mmHg LA Volume Index 44.29 ml/m2 [ 16.00 - 34.00 ] MV VTI 30.5 cm RV Base Dimen 2D 4.2 cm [ 2.5 - 4.2 ] MV PHT 61.95 msec [ 20.00 - 100.00 ] TAPSE 1.59 cm [ 1.71 - 5.00 ] MVA PHT 3.55 cm2 RA Volume 47.13 ml MV Decel Time 231.22 msec [ 104.00 - 258.00 ] RA Volume Index 22.02 ml/m2 Med E` Arslan 6.3 cm/sec [ 8.0 - 25.0 ] AoR Diam 2D 3.14 cm [ 3.10 - 3.70 ] Lat E` Arslan 8.4 cm/sec [ 10.0 - 25.0 ] Ao Root Index 1.47 cm/m2 [ 1.00 - 2.00 ] Average E/E` 19.05 Asc Ao Diam 2D 3.36 cm RV S` 12.41 cm/sec Asc Ao Index 1.57 cm/m2 TR Peak Arslan 2.9 m/s [ 1.0 - 2.8 ] TR Peak PG 33.6 mmHg Electronically Signed By: Yash Palmer MD 08/13/2024 7:57:36 AM CDT Procedure Note Yash Palmer MD - 08/13/2024 [facility] [place] [address] Transthoracic Echocardiographic Report Patient Name: SHEY SHAH C : 1950 (74y ) Gender: M Study Date: 08/12/2024 07:10:06 AM Ht(Inch): 73 Wt(Lb): 195.99 BSA: 2.14 Jacquard Loom Weaver: Raul Roque RDCS Location: [id number] Order Provider: TY WEINBERG Heart Rate: 78 BMI: 25.85 BP: 115 / 62 Ref Provider:TY WEINBERG PROCEDURES: Echocardiographic Report: Transthoracic complete echo with strain imagingand contrast, 2D, spectral and tissue Doppler, color flow Doppler, M-mode. Contrast: Contrast Enhancement was Employed: After initial imaging due tosub- optimal quality related to co-morbidity defined by patient's body habitus. 0.6 mlOptison Administered, (2.4 ml wasted). INDICATIONS: S/p MVR,AVR. CONCLUSIONS: 1. Normal left ventricular size based on volume index. Concentric LVremodeling. Normal left ventricular systolic function. The Ejection Fraction (Johnson's) ismeasured at 60 %. The average global longitudinal strain is abnormal. 2. Normal right ventricular size. 3. Status post mitral valve repair with annuloplasty ring. 4. A bioprosthetic valve is present in the aortic position. The aorticprosthesis demonstrates normal transvalvular gradient for valve type and size. 5. The estimated right ventricular systolic pressure is 35 mmHg. ATTESTATION: I have personally reviewed and interpreted this study without fellow orresident. - DISCLAIMER: The study images and the final report will be retained in the patientchart by the Echo Laboratory for the legally required time period. This chart constitutesthe legal record of any testing performed. FINDINGS: Left Ventricle: Normal left ventricular size based on volume index.Concentric LV remodeling. Normal left ventricular systolic function. The EjectionFraction (Johnson's) is measured at 60 %. The average global longitudinal strain is abnormal.The LV global strain is: -12.9 %. Right Ventricle: Normal right ventricular size. Left Atrium: Moderately dilated left atrium. Right Atrium: The right atrium is normal in size. Mitral Valve: The mitral valve area by pressure half-time is 3.6 cm2. Themean transmitral gradient is: 2 mmHg. Specific MV Structure Abnormalities:Status post mitral valve repair with annuloplasty ring. Aortic Valve: The mean transaortic gradient is 9 mmHg. The aortic valvearea by the continuity equation (using VTI) is 1.75 cm2. Aortic valve dimensionlessindex is 0.70. A bioprosthetic valve is present in the aortic position. The aorticprosthesis demonstrates normal transvalvular gradient for valve type and size. Tricuspid Valve: Normal tricuspid valve structure. Mild tricuspidregurgitation. The estimated right ventricular systolic pressure is 35 mmHg. Pulmonic Valve: Normal pulmonic valve structure. Mild pulmonicregurgitation. Pericardium: Normal pericardium without pericardial effusion. Aorta: Normal aortic root size at sinuses of Valsalva. Normal aortic rootsize when indexed. The ascending aorta is normal in size when indexed. PASP: Normal estimated pulmonary artery systolic pressure. Rhythm: Normal Sinus rhythm was seen during the study. MEASUREMENTS: 2D/MM Value Range DopplerValue Range LVIDd 2D 4.52 cm [ 4.20 - 5.80 ] AV Peak Vel2.1 m/s [ 1.0 - 1.7 ] LVIDs 2D 3.20 cm [ 2.50 - 4.00 ] AV Peak PG17.64 mmHg IVSd 2D 1.30 cm [ 0.60 - 1.00 ] AV Mean PG9 mmHg LVPWd 2D 1.31 cm [ 0.60 - 1.00 ] AV VTI36.5 cm LV Thickness Ratio 1.0 LVOT Peak Vel1.5 m/s [ 0.7 - 1.1 ] LV FS 2D 29.25 % [ 25.00 - 43.00 ] LVOT Peak PG9.00 mmHg LV Mass 2D 228.30 g LVOT Mean PG5 mmHg LV Mass Index 2D 106.68 g/m2 LVOT VTI25.7 cm RWT 0.58 LVOT Diam1.78 cm EDV Mod BP 131.51 ml [ 62.00 - 150.00 ] OBED VTI1.75 cm2 LV EDV Index 61.45 ml/m2 LVOT/AV VTI0.70 - Dimensionless index (DVI) ESV Mod BP 52.86 ml [ 21.00 - 61.00 ] MV E Peak Vel1.4 m/s [ 0.6 - 1.3 ] EF Mod BP 60 % [ 52 - 72 ] MV A Peak Vel0.4 m/s [ 1.0 - 1.2 ] LV GLS -12.9 % [ -25.0 - -18.0 ] MV E/A3.6 ratio [ 0.8 - 1.5 ] LA Length 4C 5.48 cm MV Peak Vel1.4 m/s LA Length 2C 5.13 cm MV Peak PG7.84 mmHg LA Volume BP 94.77 ml MV Mean PG2 mmHg LA Volume Index 44.29 ml/m2 [ 16.00 - 34.00 ] MV VTI30.5 cm RV Base Dimen 2D 4.2 cm [ 2.5 - 4.2 ] MV PHT61.95 msec [ 20.00 - 100.00 ] TAPSE 1.59 cm [ 1.71 - 5.00 ] MVA PHT3.55 cm2 RA Volume 47.13 ml MV Decel Mbfn618.22 msec [ 104.00 - 258.00 ] RA Volume Index 22.02 ml/m2 Med E` Vel6.3 cm/sec [ 8.0 - 25.0 ] AoR Diam 2D 3.14 cm [ 3.10 - 3.70 ] Lat E` Vel8.4 cm/sec [ 10.0 - 25.0 ] Ao Root Index 1.47 cm/m2 [ 1.00 - 2.00 ] Average E/E`19.05 Asc Ao Diam 2D 3.36 cm RV S`12.41 cm/sec Asc Ao Index 1.57 cm/m2 TR Peak Vel2.9 m/s [ 1.0 - 2.8 ] TR Peak PG 33.6 mmHg Electronically Signed By: Yash Palmer MD 08/13/2024 7:57:36 AM CDT Ty Weinberg NP CV ECHO PROCEDURES Fin al Result * eGFR (08/11/2024 8:16 PM CDT) eGFR 65 >=60 mL/min/1. 73 m2 Comment: Interpretive Data [...] of Race in Diagnosing Kidney Disease, JASN 202). The CKD-EPI equation should not be used for patients with unstable renal function and has not been validated in children and those over 70. Current interpretive data was last reviewed 2021. Blood 08/11/2024 8:16 PM CDT 08/11/2024 8:50 PM CDT us Humza Fernandez RADIOLOGICAL HEALTH SPECIALIST LAB BLOOD ORDERABLES Final Result Performing Organization Address [facility] Co de Phone Number [facility] [place] [address] * (ABNORMAL) CBC without differential (08/11/2024 8:16 PM CDT) WBC 13.80(H) 3.80 - 9.90 K/cumm Hgb 9.5(L) 13.0 - 17.5 g/dL [facility] Hct 29.3(L) 38.9 - 50.3 % [facility] Plt 361 150 - 400 K/cumm [facility] MPV 10.3 9.1 - 12.3 fL [facility] RBC 2.88(L) 4.30 - 5.80 M/cumm [facility] MCV 101.7(H) 81.3 - 96.4 fL [facility] MCH 33.0 27.1 - 33.3 pg [facility] MCHC 32.4 32.3 - 35.7 g/dL [facility] RDW CV 14.2 11.1 - 14.9 % [facility] RDW SD 52.5(H) 35.7 - 48.1 fL [facility] NRBC abs 0.00 0.00 - 0.01 K/cumm [facility] Blood 08/11/2024 8:16 PM CDT 08/11/2024 8:53 PM CDT us Alanna Dominguez RADIOLOGICAL HEALTH SPECIALIST LAB BLOOD ORDERABLES Final R esult [facility] [place] [address] * Type and screen (08/11/2024 8:16 PM CDT) ABO Rh A Positive Kumar, indirect Negative [facility] Blood 08/11/2024 8:16 PM CDT 08/11/2024 9:36 PM CDT Narrative [facility] - 08/11/2024 10:35 PM CDT Has the patient had Daratumumab or Isatuximab in the past 6 months?->Unknown Alanna Dominguez RADIOLOGICAL HEALTH SPECIALIST LAB BLOOD BANK TEST ORDERABL ES Final Result Performing Organization Address [facility] Co de Phone Number [facility] [place] [address] * Phosphorus (08/11/2024 8:16 PM CDT) [facility] Phosphorus, pl 3.4 2.3 - 4.5 mg/dL Blood 08/11/2024 8:16 PM CDT 08/11/2024 8:50 PM CDT Alanna Dominguez RADIOLOGICAL HEALTH SPECIALIST LAB BLOOD ORDERABLES Final R esult Performing Organization Address [facility] Co de Phone Number [facility] Department [place] [address] * Magnesium (08/11/2024 8:16 PM CDT) [facility] Magnesium 1.9 1.4 - 2.5 mg/dL Blood 08/11/2024 8:16 PM CDT 08/11/2024 8:50 PM CDT Yen Mccoy RADIOLOGICAL HEALTH SPECIALIST LAB BLOOD ORDERABLES Final Result Performing Organization Address [facility] Co de Phone Number [facility] [place] [address] * Basic metabolic panel (08/11/2024 8:16 PM CDT) [facility] Sodium 136 135 - 145 mmol/L Potassium, pl 3.9 3.3 - 4.9 mmol/L [facility] Chloride 97 97 - 110 mmol/L [facility] CO2 30 22 - 32 mmol/L [facility] Anion gap 9 2 - 15 mmol/L [facility] BUN 20 6 - 25 mg/dL [facility] Creatinine 1.17 0.80 - 1.30 mg/dL [facility] Glucose 169 70 - 199 mg/dL [facility] Comment: Interpretive Data Fasting glucose >/= [...] interpretive data was last revised 2022. Calcium 9.0 8.5 - 10.3 mg/dL [facility] Blood 08/11/2024 8:16 PM CDT 08/11/2024 8:50 PM CDT us Humza Fernandez RADIOLOGICAL HEALTH SPECIALIST LAB BLOOD ORDERABLES Final Result [facility] Department [place] [address] * eGFR (08/11/2024 9:02 AM CDT) eGFR 67 >=60 mL/min/1. 73 m2 Comment: Interpretive Data [...] interpretive data was last reviewed 2021. Blood 08/11/2024 9:02 AM CDT 08/11/2024 9:55 AM CDT us Humza Fernandez RADIOLOGICAL HEALTH SPECIALIST LAB BLOOD ORDERABLES Final Result [facility] Department [place] [address] * Basic metabolic panel (08/11/2024 9:02 AM CDT) Sodium 140 135 - 145 mmol/L Potassium, pl 3.8 3.3 - 4.9 mmol/L [facility] Chloride 99 97 - 110 mmol/L [facility] CO2 31 22 - 32 mmol/L [facility] Anion gap 10 2 - 15 mmol/L [facility] BUN 16 6 - 25 mg/dL [facility] Creatinine 1.14 0.80 - 1.30 mg/dL [facility] Glucose 109 70 - 199 mg/dL [facility] Comment: Interpretive Data Fasting glucose >/= [...] interpretive data was last revised 2022. Calcium 9.3 8.5 - 10.3 mg/dL [facility] Blood 08/11/2024 9:02 AM CDT 08/11/2024 9:55 AM CDT us Humza Fernandez NP LAB BLOOD ORDERABLES Final Result [facility] Department [place] [address] * Infection Prevention Joce auris PCR, surveillance Axilla/Groin (08/11/2024 7:55 AM CDT) Joce auris DNA Not Detected Not Detected [facility] Comment: Interpretive Data Testing performed by [facility] using the [place]alia lui [id number] Joce auris assay. This assay detects DNA from Joce auris using Real-Time PCR. This assay is laboratory developed and is not cleared by the [facility] Food and Drug Administration. The performance characteristics have been verified by the [facility]. Axilla/Groin 08/11/2024 7:55 AM CDT 08/11/2024 8:30 AM CDT Raheem KISER [facility] - 08/11/2024 12:57 PM CDT Order placed by [facility] due to ring surveillance. us Instant Order Generic Provider LAB MICROBIOLOGY - GENERAL ORDERABLES Final Result MARGI [facility] Department [place] [address] [facility] * eGFR (08/10/2024 10:07 PM CDT) Pathologist [facility] Department eGFR 60 >=60 mL/min/1. 73 m2 Comment: Interpretive Data [...] of Race in Diagnosing Kidney Disease, JASN 202). The CKD-EPI equation should not be used for patients with unstable renal function and has not been validated in children and those over 70. Current interpretive data was last reviewed 2021. Blood 08/10/2024 10:0 7 PM CDT 08/10/2024 10:37 PM CDT us Humza Fernandez RADIOLOGICAL HEALTH SPECIALIST LAB BLOOD ORDERABLES Final Result Performing Organization Address [facility] Co de Phone Number [facility] [place] [address] * (ABNORMAL) CBC without differential (08/10/2024 10:07 PM CDT) WBC 13.89(H) 3.80 - 9.90 K/cumm Hgb 9.8(L) 13.0 - 17.5 g/dL [facility] Hct 29.9(L) 38.9 - 50.3 % [facility] Plt 338 150 - 400 K/cumm [facility] MPV 10.4 9.1 - 12.3 fL [facility] RBC 2.96(L) 4.30 - 5.80 M/cumm [facility] MCV 101.0(H) 81.3 - 96.4 fL [facility] MCH 33.1 27.1 - 33.3 pg [facility] MCHC 32.8 32.3 - 35.7 g/dL [facility] RDW CV 14.2 11.1 - 14.9 % [facility] RDW SD 51.6(H) 35.7 - 48.1 fL [facility] NRBC abs 0.00 0.00 - 0.01 K/cumm [facility] Blood 08/10/2024 10:0 7 PM CDT 08/10/2024 10:38 PM CDT us Alanna Dominguez RADIOLOGICAL HEALTH SPECIALIST LAB BLOOD ORDERABLES Final R esult Performing Organization Address City/[facility]/ZIP Co de Phone Number [facility] [place] [address] * Phosphorus (08/10/2024 10:07 PM CDT) Pathologist [facility] Phosphorus, pl 3.4 2.3 - 4.5 mg/dL Blood 08/10/2024 10:0 7 PM CDT 08/10/2024 10:37 PM CDT Alanna Dominguez RADIOLOGICAL HEALTH SPECIALIST LAB BLOOD ORDERABLES Final R esult Performing Organization Address City/[facility]/ZIP Co de Phone Number [facility] Department [place] [address] * Magnesium (08/10/2024 10:07 PM CDT) [facility] Magnesium 1.7 1.4 - 2.5 mg/dL Blood 08/10/2024 10:0 7 PM CDT 08/10/2024 10:37 PM CDT Yen Mccoy RADIOLOGICAL HEALTH SPECIALIST LAB BLOOD ORDERABLES Final Result Performing Organization Address [facility] de Phone Number [facility] Department [place] [address] * (ABNORMAL) Hepatic function panel (08/10/2024 10:07 PM CDT) [facility] Bilirubin, total 0.6 0.1 - 1.2 mg/dL Bilirubin, direct 0.2 0.1 - 0.3 mg/dL [facility] Protein, pl 6.5 6.5 - 8.5 g/dL [facility] Albumin 2.9(L) 3.5 - 5.0 g/dL [facility] Alk phos 81 40 - 130 Units/L [facility] ALT 35 7 - 55 Units/L [facility] AST 36 10 - 50 Units/L [facility] Blood 08/10/2024 10:0 7 PM CDT 08/10/2024 10:37 PM CDT Onelia Arellano RADIOLOGICAL HEALTH SPECIALIST LAB BLOOD ORDERABLES Final Result Performing Organization Address City/[facility] Co de Phone Number [facility] Department [place] [address] * (ABNORMAL) Basic metabolic panel (08/10/2024 10:07 PM CDT) Pathologist [facility] Sodium 135 135 - 145 mmol/L Potassium, pl 4.4 3.3 - 4.9 mmol/L [facility] Chloride 95(L) 97 - 110 mmol/L [facility] CO2 28 22 - 32 mmol/L [facility] Anion gap 12 2 - 15 mmol/L [facility] BUN 18 6 - 25 mg/dL [facility] Creatinine 1.25 0.80 - 1.30 mg/dL [facility] Glucose 115 70 - 199 mg/dL [facility] Comment: Interpretive Data Fasting glucose >/= [...] interpretive data was last revised 2022. Calcium 8.6 8.5 - 10.3 mg/dL [facility] Blood 08/10/2024 10:0 7 PM CDT 08/10/2024 10:37 PM CDT us Humza Fernandez NP LAB BLOOD ORDERABLES Final Result Performing Organization Address City/[facility] Co de Phone Number [facility] [place] [address] * eGFR (08/10/2024 8:59 AM CDT) Pathologist [facility] Department eGFR 67 >=60 mL/min/1. 73 m2 Comment: Interpretive Data [...] of Race in Diagnosing Kidney Disease, JASN 202). The CKD-EPI equation should not be used for patients with unstable renal function and has not been validated in children and those over 70. Current interpretive data was last reviewed 2021. Blood 08/10/2024 8:59 AM CDT 08/10/2024 9:33 AM CDT us Humza Fernandez RADIOLOGICAL HEALTH SPECIALIST LAB BLOOD ORDERABLES Final Result [facility] Department [place] [address] * Basic metabolic panel (08/10/2024 8:59 AM CDT) Sodium 138 135 - 145 mmol/L Potassium, pl 3.8 3.3 - 4.9 mmol/L [facility] Chloride 97 97 - 110 mmol/L [facility] CO2 31 22 - 32 mmol/L [facility] Anion gap 10 2 - 15 mmol/L [facility] BUN 14 6 - 25 mg/dL [facility] Creatinine 1.15 0.80 - 1.30 mg/dL [facility] Glucose 125 70 - 199 mg/dL [facility] Comment: Interpretive Data Fasting glucose >/= [...] 2022. Calcium 8.9 8.5 - 10.3 mg/dL [facility] Blood 08/10/2024 8:59 AM CDT 08/10/2024 9:33 AM CDT Humza Fernandez RADIOLOGICAL HEALTH SPECIALIST LAB BLOOD ORDERABLES Final Result Performing Organization Address City/[facility]/ZIP Co de Phone Number [facility] [place] [address] * eGFR (2024 8:38 PM CDT) eGFR 67 >=60 mL/min/1. 73 m2 Comment: Interpretive Data [...] interpretive data was last reviewed 2021. Blood 2024 8:38 PM CDT 2024 10:37 PM CDT Humza Fernandez NP LAB BLOOD ORDERABLES Final Result Performing Organization Address [facility]/ZIP Co de Phone Number [facility] [place] [address] * (ABNORMAL) CBC without differential (2024 8:38 PM CDT) Pathologist [facility] WBC 10.80(H) 3.80 - 9.90 K/cumm Hgb 9.5(L) 13.0 - 17.5 g/dL [facility] Hct 29.1(L) 38.9 - 50.3 % [facility] Plt 366 150 - 400 K/cumm [facility] MPV 10.7 9.1 - 12.3 fL [facility] RBC 2.90(L) 4.30 - 5.80 M/cumm [facility] MCV 100.3(H) 81.3 - 96.4 fL [facility] MCH 32.8 27.1 - 33.3 pg [facility] MCHC 32.6 32.3 - 35.7 g/dL [facility] RDW CV 14.3 11.1 - 14.9 % [facility] RDW SD 52.3(H) 35.7 - 48.1 fL [facility] NRBC abs 0.00 0.00 - 0.01 K/cumm [facility] Blood 2024 8:38 PM CDT 2024 9:41 PM CDT us Alanna Dominguez RADIOLOGICAL HEALTH SPECIALIST LAB BLOOD ORDERABLES Final R esult Performing Organization Address City/[facility] Co de Phone Number [facility] [place] [address] * Phosphorus (2024 8:38 PM CDT) [facility] Phosphorus, pl 3.1 2.3 - 4.5 mg/dL Blood 2024 8:38 PM CDT 2024 10:37 PM CDT us Alanna Dominguez RADIOLOGICAL HEALTH SPECIALIST LAB BLOOD ORDERABLES Final R esult Performing Organization Address City/[facility]/ZIP Co de Phone Number [facility] [place] [address] * Magnesium (2024 8:38 PM CDT) Pathologist [facility] Magnesium 1.8 1.4 - 2.5 mg/dL Blood 2024 8:38 PM CDT 2024 10:37 PM CDT Yen Mccoy RADIOLOGICAL HEALTH SPECIALIST LAB BLOOD ORDERABLES Final Result [facility] [place] [address] * Basic metabolic panel (2024 8:38 PM CDT) [facility] Sodium 139 135 - 145 mmol/L Potassium, pl 4.4 3.3 - 4.9 mmol/L [facility] Chloride 100 97 - 110 mmol/L [facility] CO2 30 22 - 32 mmol/L [facility] Anion gap 9 2 - 15 mmol/L [facility] BUN 17 6 - 25 mg/dL [facility] Creatinine 1.15 0.80 - 1.30 mg/dL [facility] Glucose 115 70 - 199 mg/dL [facility] Comment: Interpretive Data Fasting glucose >/= [...] interpretive data was last revised 2022. Calcium 8.6 8.5 - 10.3 mg/dL [facility] Blood 2024 8:38 PM CDT 2024 10:37 PM CDT us Humza Fernandez RADIOLOGICAL HEALTH SPECIALIST LAB BLOOD ORDERABLES Final Result [facility] [place] [address] * XR Chest Pa Lateral 2 Views (2024 10:38 AM CDT) Anatomical Region Laterality Modality Body, Chest N/A Computed Radiogr aphy 2024 10:0 7 PM CDT Impressions 2024 10:07 PM CDT Comparison is made to 08/06/2024. There are small bilateral pleural effusions with bibasilar atelectasis, unchanged. No pneumothorax or pneumonic consolidation. Stable heart size. Stable appearance of the median sternotomy wires, left atrial appendage clip, and left peripherally inserted central venous catheter. Electronically signed by: Maury Jaeger M.D. Narrative 2024 10:07 PM CDT EXAMINATION: 2 view chest radiograph Procedure Note Maury Jaeger MD - 2024 EXAMINATION: 2 view chest radiograph IMPRESSION: Comparison is made to 08/06/2024. There are small bilateral pleural effusions with bibasilar atelectasis, unchanged. No pneumothorax or pneumonic consolidation. Stable heart size. Stable appearance of the median sternotomy wires, left atrial appendage clip, and left peripherally inserted central venous catheter. Electronically signed by: Maury Jaeger M.D. Vicenta Lundberg RADIOLOGICAL HEALTH SPECIALIST IMG XR PROCEDURE S Final Result * ECG 12 lead (2024 8:09 AM CDT) Ventricular Rate EKG/Min 73 BPM [facility] Atrial Rate 73 BPM [facility] HI-Interval (MSEC) 190 ms [facility] QRS-Interval (MSEC) 100 ms [facility] QT-Interval (MSEC) 446 ms [facility] QTc 491 ms [facility] P [place] 76 degrees [facility] R [place] 62 degrees [facility] [place] 19 degrees [facility] Diagnosis Normal sinus rhythm T wave abnormality, consider anterior ischemia Prolonged QT Abnormal ECG Confirmed by Martina Simmons MD ([id number]) on 08/13/2024 1:32:42 PM [facility] 2024 8:09 AM CDT 08/13/2024 1:32 PM CDT us Alanna Dominguez RADIOLOGICAL HEALTH SPECIALIST ECG ORDERABLES Final Result Performing Organization Address City/[facility] Co de Phone Number [facility] * Lactate (2024 6:27 AM CDT) Lactate 0.8 0.7 - 2.0 mmol/L Blood 2024 6:27 AM CDT 2024 6:48 AM CDT Nick Veliz MD LAB BLOOD ORDERABLES Fin al Result Performing Organization Address [facility] de Phone Number [facility] [place] [address] * eGFR (08/08/2024 10:48 PM CDT) eGFR 77 >=60 mL/min/1. 73 m2 Comment: Interpretive Data [...] interpretive data was last reviewed 2021. Blood 08/08/2024 10:4 8 PM CDT 08/08/2024 11:32 PM CDT us Humza Fernandez RADIOLOGICAL HEALTH SPECIALIST LAB BLOOD ORDERABLES Final Result Performing Organization Address [facility] Co de Phone Number [facility] Department [place] [address] * (ABNORMAL) CBC without differential (08/08/2024 10:48 PM CDT) Pathologist [facility] WBC 8.90 3.80 - 9.90 K/cumm Hgb 9.0(L) 13.0 - 17.5 g/dL [facility] Hct 27.0(L) 38.9 - 50.3 % [facility] Plt 292 150 - 400 K/cumm [facility] MPV 10.5 9.1 - 12.3 fL [facility] RBC 2.72(L) 4.30 - 5.80 M/cumm [facility] MCV 99.3(H) 81.3 - 96.4 fL [facility] MCH 33.1 27.1 - 33.3 pg [facility] MCHC 33.3 32.3 - 35.7 g/dL [facility] RDW CV 14.4 11.1 - 14.9 % [facility] RDW SD 51.8(H) 35.7 - 48.1 fL [facility] NRBC abs 0.00 0.00 - 0.01 K/cumm [facility] Blood 08/08/2024 10:4 8 PM CDT 08/08/2024 11:32 PM CDT us Alanna Dominguez RADIOLOGICAL HEALTH SPECIALIST LAB BLOOD ORDERABLES Final R esult Performing Organization Address [facility]/ZIP Co de Phone Number [facility] [place] [address] * Type and screen (08/08/2024 10:48 PM CDT) Pathologist [facility] ABO Rh A Positive Kumar, indirect Negative [facility] Blood 08/08/2024 10:4 8 PM CDT 08/08/2024 11:29 PM CDT Narrative [facility] - 2024 12:59 AM CDT Has the patient had Daratumumab or Isatuximab in the past 6 months?->Unknown Alanna Dominguez NP LAB BLOOD BANK TEST ORDERABL ES Final Result Performing Organization Address [facility] Co de Phone Number [facility] [place] [address] * Phosphorus (08/08/2024 10:48 PM CDT) Pathologist [facility] Phosphorus, pl 3.4 2.3 - 4.5 mg/dL Blood 08/08/2024 10:4 8 PM CDT 08/08/2024 11:32 PM CDT Alanna Dominguez NP LAB BLOOD ORDERABLES Final R esult Performing Organization Address [facility] Co de Phone Number [facility] [place] [address] * Magnesium (08/08/2024 10:48 PM CDT) Pathologist [facility] Magnesium 1.9 1.4 - 2.5 mg/dL Blood 08/08/2024 10:4 8 PM CDT 08/08/2024 11:32 PM CDT Yen Mccoy RADIOLOGICAL HEALTH SPECIALIST LAB BLOOD ORDERABLES Final Result Performing Organization Address City/[facility] Co de Phone Number [facility] [place] [place] [address] * (ABNORMAL) Basic metabolic panel (08/08/2024 10:48 PM CDT) Sodium 137 135 - 145 mmol/L Potassium, pl 4.0 3.3 - 4.9 mmol/L [facility] Chloride 98 97 - 110 mmol/L [facility] CO2 29 22 - 32 mmol/L [facility] Anion gap 10 2 - 15 mmol/L [facility] BUN 17 6 - 25 mg/dL [facility] Creatinine 1.02 0.80 - 1.30 mg/dL [facility] Glucose 110 70 - 199 mg/dL [facility] Comment: Interpretive Data Fasting glucose >/= [...] interpretive data was last revised 2022. Calcium 8.1(L) 8.5 - 10.3 mg/dL [facility] Blood 08/08/2024 10:4 8 PM CDT 08/08/2024 11:32 PM CDT us Humza Fernandez NP LAB BLOOD ORDERABLES Final Result [facility] Department [place] [address] * Infection Prevention Joce auris PCR, surveillance Axilla/Groin (08/08/2024 12:43 PM CDT) Joce auris DNA Not Detected Not Detected [facility] Comment: Interpretive Data Testing performed by [facility] using the [place] lui [id number] Joce auris assay. This assay detects DNA from Joce auris using Real-Time PCR. This assay is laboratory developed and is not cleared by the [place] Food and Drug Administration. The performance characteristics have been verified by the [facility]. Axilla/Groin 08/08/2024 12:4 3 PM CDT 08/08/2024 1:23 PM CDT Herson Perla MD LAB MICROBIOLOGY - GENERAL ORDER VAHID Final Result Performing Organization Address [facility] Co de Phone Number [facility] Department [place] [address] [facility] * eGFR (08/08/2024 8:02 AM CDT) Pathologist [facility] eGFR 77 >=60 mL/min/1. 73 m2 Comment: Interpretive Data [...] interpretive data was last reviewed 2021. Blood 08/08/2024 8:02 AM CDT 08/08/2024 8:45 AM CDT us Humza Fernandez NP LAB BLOOD ORDERABLES Final Result Performing Organization Address City/[facility]/ZIP Co de Phone Number [facility] Department [place] [address] * (ABNORMAL) Basic metabolic panel (08/08/2024 8:02 AM CDT) Pathologist [facility] Sodium 139 135 - 145 mmol/L Potassium, pl 4.1 3.3 - 4.9 mmol/L [facility] Chloride 100 97 - 110 mmol/L [facility] CO2 30 22 - 32 mmol/L [facility] Anion gap 9 2 - 15 mmol/L [facility] BUN 15 6 - 25 mg/dL [facility] Creatinine 1.03 0.80 - 1.30 mg/dL [facility] Glucose 107 70 - 199 mg/dL [facility] Comment: Interpretive Data Fasting glucose >/= [...] interpretive data was last revised 2022. Calcium 8.4(L) 8.5 - 10.3 mg/dL [facility] Blood 08/08/2024 8:02 AM CDT 08/08/2024 8:45 AM CDT us Humza Fernandez RADIOLOGICAL HEALTH SPECIALIST LAB BLOOD ORDERABLES Final Result [facility] [place] [address] * ECG 12 lead (08/08/2024 3:37 AM CDT) [facility] Ventricular Rate EKG/Min 76 BPM [facility] Atrial Rate 76 BPM [facility] HI-Interval (MSEC) 182 ms [facility] QRS-Interval (MSEC) 100 ms [facility] QT-Interval (MSEC) 458 ms [facility] QTc 515 ms [facility] P [place] 97 degrees [facility] R [place] 65 degrees [facility] T [place] 15 degrees [facility] Diagnosis Normal sinus rhythm Possible Lateral infarct , age undetermined Poor r wave progression associated with abnormal lead placement, obesity, pulmonary disease, anterior infarction. Prolonged QT Abnormal ECG When compared with ECG of 06-AUG-2024 05:53, Borderline criteria for Lateral infarct are now Present T wave inversion more evident in Anterior leads Confirmed by GAVINO KELLEY M.D ([id number]) on 08/08/2024 1:03:32 PM [facility] 08/08/2024 3:37 AM CDT 08/08/2024 1:03 PM CDT us Alanna Dominguez RADIOLOGICAL HEALTH SPECIALIST ECG ORDERABLES Final Result [facility] * eGFR (08/07/2024 10:12 PM CDT) eGFR 77 >=60 mL/min/1. 73 m2 Comment: Interpretive Data [...] interpretive data was last reviewed 2021. Blood 08/07/2024 10:1 2 PM CDT 08/07/2024 10:48 PM CDT us Humza Fernandez RADIOLOGICAL HEALTH SPECIALIST LAB BLOOD ORDERABLES Final Result [facility] [place] [address] * (ABNORMAL) CBC without differential (08/07/2024 10:12 PM CDT) WBC 8.80 3.80 - 9.90 K/cumm Hgb 8.6(L) 13.0 - 17.5 g/dL [facility] Hct 26.5(L) 38.9 - 50.3 % [facility] Plt 247 150 - 400 K/cumm [facility] MPV 11.0 9.1 - 12.3 fL [facility] RBC 2.59(L) 4.30 - 5.80 M/cumm [facility] MCV 102.3(H) 81.3 - 96.4 fL [facility] MCH 33.2 27.1 - 33.3 pg [facility] MCHC 32.5 32.3 - 35.7 g/dL [facility] RDW CV 14.4 11.1 - 14.9 % [facility] RDW SD 53.0(H) 35.7 - 48.1 fL [facility] NRBC abs 0.00 0.00 - 0.01 K/cumm [facility] Blood 08/07/2024 10:1 2 PM CDT 08/07/2024 10:49 PM CDT Alanna Dominguez RADIOLOGICAL HEALTH SPECIALIST LAB BLOOD ORDERABLES Final R esult Performing Organization Address City/[facility]/ZIP Co de Phone Number [facility] [place] [place] [address] * Phosphorus (08/07/2024 10:12 PM CDT) Phosphorus, pl 3.4 2.3 - 4.5 mg/dL Blood 08/07/2024 10:1 2 PM CDT 08/07/2024 10:48 PM CDT Alanna Dominguez RADIOLOGICAL HEALTH SPECIALIST LAB BLOOD ORDERABLES Final R esult [facility] [place] [address] * Magnesium (08/07/2024 10:12 PM CDT) Magnesium 1.9 1.4 - 2.5 mg/dL Blood 08/07/2024 10:1 2 PM CDT 08/07/2024 10:48 PM CDT Yen Mccoy RADIOLOGICAL HEALTH SPECIALIST LAB BLOOD ORDERABLES Final Result Performing Organization Address [facility] de Phone Number [facility] [place] [address] * (ABNORMAL) Hepatic function panel (08/07/2024 10:12 PM CDT) Pathologist [facility] Bilirubin, total 0.7 0.1 - 1.2 mg/dL Bilirubin, direct 0.3 0.1 - 0.3 mg/dL [facility] Protein, pl 6.0(L) 6.5 - 8.5 g/dL [facility] Albumin 2.7(L) 3.5 - 5.0 g/dL [facility] Alk phos 65 40 - 130 Units/L [facility] ALT 34 7 - 55 Units/L [facility] AST 41 10 - 50 Units/L [facility] Blood 08/07/2024 10:1 2 PM CDT 08/07/2024 10:48 PM CDT Onelia Arellano RADIOLOGICAL HEALTH SPECIALIST LAB BLOOD ORDERABLES Final Result Performing Organization Address [facility] de Phone Number [facility] [place] [address] * (ABNORMAL) Basic metabolic panel (08/07/2024 10:12 PM CDT) Sodium 139 135 - 145 mmol/L Potassium, pl 4.0 3.3 - 4.9 mmol/L [facility] Chloride 101 97 - 110 mmol/L [facility] CO2 28 22 - 32 mmol/L [facility] Anion gap 10 2 - 15 mmol/L [facility] BUN 17 6 - 25 mg/dL [facility] Creatinine 1.03 0.80 - 1.30 mg/dL [facility] Glucose 117 70 - 199 mg/dL [facility] Comment: Interpretive Data Fasting glucose >/= [...] interpretive data was last revised 2022. Calcium 8.4(L) 8.5 - 10.3 mg/dL [facility] Blood 08/07/2024 10:1 2 PM CDT 08/07/2024 10:48 PM CDT us Humza Fernandez RADIOLOGICAL HEALTH SPECIALIST LAB BLOOD ORDERABLES Final Result [facility] [place] [address] * eGFR (08/07/2024 8:19 AM CDT) eGFR 78 >=60 mL/min/1. 73 m2 Comment: Interpretive Data [...] interpretive data was last reviewed 2021. Blood 08/07/2024 8:19 AM CDT 08/07/2024 8:54 AM CDT Humza Fernandez RADIOLOGICAL HEALTH SPECIALIST LAB BLOOD ORDERABLES Final Result Performing Organization Address City/[facility]/ZIP Co de Phone Number [facility] [place] [address] * Basic metabolic panel (08/07/2024 8:19 AM CDT) [facility] Sodium 138 135 - 145 mmol/L Potassium, pl 3.9 3.3 - 4.9 mmol/L [facility] Chloride 99 97 - 110 mmol/L [facility] CO2 29 22 - 32 mmol/L [facility] Anion gap 10 2 - 15 mmol/L [facility] BUN 16 6 - 25 mg/dL [facility] Creatinine 1.02 0.80 - 1.30 mg/dL [facility] Glucose 114 70 - 199 mg/dL [facility] Comment: Interpretive Data Fasting glucose >/= [...] 2022. Calcium 8.8 8.5 - 10.3 mg/dL [facility] Blood 08/07/2024 8:19 AM CDT 08/07/2024 8:54 AM CDT Humza Fernandez NP LAB BLOOD ORDERABLES Final Result Performing Organization Address [facility]/ZIP Co de Phone Number [facility] [place] [address] * eGFR (08/06/2024 9:13 PM CDT) [facility] eGFR 74 >=60 mL/min/1. 73 m2 Comment: Interpretive Data [...] interpretive data was last reviewed 2021. Blood 08/06/2024 9:13 PM CDT 08/06/2024 9:53 PM CDT us Alanna Dominguez RADIOLOGICAL HEALTH SPECIALIST LAB BLOOD ORDERABLES Final R esult [facility] [place] [address] * (ABNORMAL) CBC without differential (08/06/2024 9:13 PM CDT) [facility] WBC 9.16 3.80 - 9.90 K/cumm Hgb 8.2(L) 13.0 - 17.5 g/dL [facility] Hct 25.1(L) 38.9 - 50.3 % [facility] Plt 200 150 - 400 K/cumm [facility] MPV 11.3 9.1 - 12.3 fL [facility] RBC 2.49(L) 4.30 - 5.80 M/cumm [facility] MCV 100.8(H) 81.3 - 96.4 fL [facility] MCH 32.9 27.1 - 33.3 pg [facility] MCHC 32.7 32.3 - 35.7 g/dL [facility] RDW CV 14.4 11.1 - 14.9 % [facility] RDW SD 52.8(H) 35.7 - 48.1 fL [facility] NRBC abs 0.00 0.00 - 0.01 K/cumm [facility] Blood 08/06/2024 9:13 PM CDT 08/06/2024 9:52 PM CDT us Alanna Dominguez RADIOLOGICAL HEALTH SPECIALIST LAB BLOOD ORDERABLES Final R esult Performing Organization Address City/[facility] [place] [address] * Phosphorus (08/06/2024 9:13 PM CDT) Pathologist [facility] Phosphorus, pl 2.8 2.3 - 4.5 mg/dL Blood 08/06/2024 9:13 PM CDT 08/06/2024 9:53 PM CDT us Alanna Dominguez RADIOLOGICAL HEALTH SPECIALIST LAB BLOOD ORDERABLES Final R esult Performing Organization Address [facility] de Phone Number [facility] Department [place] [address] * Magnesium (08/06/2024 9:13 PM CDT) Pathologist [facility] Magnesium 1.8 1.4 - 2.5 mg/dL Blood 08/06/2024 9:13 PM CDT 08/06/2024 9:53 PM CDT us Alanna Dominguez RADIOLOGICAL HEALTH SPECIALIST LAB BLOOD ORDERABLES Final R esult Performing Organization Address [facility] de Phone Number [facility] [place] [address] * Basic metabolic panel (08/06/2024 9:13 PM CDT) Sodium 138 135 - 145 mmol/L Potassium, pl 4.0 3.3 - 4.9 mmol/L [facility] Chloride 101 97 - 110 mmol/L [facility] CO2 27 22 - 32 mmol/L [facility] Anion gap 10 2 - 15 mmol/L [facility] BUN 19 6 - 25 mg/dL [facility] Creatinine 1.06 0.80 - 1.30 mg/dL [facility] Glucose 126 70 - 199 mg/dL [facility] Comment: Interpretive Data Fasting glucose >/= [...] interpretive data was last revised 2022. Calcium 8.6 8.5 - 10.3 mg/dL [facility] Blood 08/06/2024 9:13 PM CDT 08/06/2024 9:53 PM CDT us Alanna Dominguez NP LAB BLOOD ORDERABLES Final R esult [facility] [place] [address] * XR Chest Pa Lateral 2 Views (08/06/2024 11:46 AM CDT) Anatomical Region Laterality Modality Body, Chest N/A Computed Radiogr aphy 08/06/2024 3:48 PM CDT Impressions 08/06/2024 3:57 PM CDT The current study is compared with the prior radiograph dated 08/04/2024 at 7:47 PM. Patient is status post median sternotomy. Left atrial appendage exclusion device noted. Left peripherally inserted central venous catheter with tip overlying the superior cavoatrial junction. Moderate left sized layering pleural effusion with underlying atelectasis. Moderate right-sided layering pleural effusion with underlying atelectasis. No pneumothorax. No pulmonary edema. Stable cardiomediastinal silhouette. Dictated by: Jimmy Lauren M.D. The radiology attending physician has personally reviewed this study, and had reviewed and/or edited this written report and agrees with it. Electronically signed by: Sg Pineda M.D. Narrative 08/06/2024 3:57 PM CDT EXAMINATION: 2 view chest radiograph Procedure Note Sg Pineda MD - 08/06/2024 EXAMINATION: 2 view chest radiograph IMPRESSION: The current study is compared with the prior radiograph dated 08/04/2024 at 7:47 PM. Patient is status post median sternotomy. Left atrial appendage exclusion device noted. Left peripherally inserted central venous catheter with tip overlying the superior cavoatrial junction. Moderate left sized layering pleural effusion with underlying atelectasis. Moderate right-sided layering pleural effusion with underlying atelectasis. No pneumothorax. No pulmonary edema. Stable cardiomediastinal silhouette. Dictated by: Jimmy Lauren M.D. The radiology attending physician has personally reviewed this study, and had reviewed and/or edited this written report and agrees with it. Electronically signed by: Sg Pineda M.D. Onelia Arellano RADIOLOGICAL HEALTH SPECIALIST IMG XR PROCEDURES Final Re sult * ECG 12 lead (08/06/2024 5:53 AM CDT) Pathologist [facility] Ventricular Rate EKG/Min 74 BPM [facility] Atrial Rate 74 BPM [facility] HI-Interval (MSEC) 204 ms [facility] QRS-Interval (MSEC) 88 ms [facility] QT-Interval (MSEC) 468 ms [facility] QTc 519 ms [facility] P [place] 17 degrees [facility] R [place] 57 degrees [facility] T [place] 12 degrees [facility] Diagnosis Normal sinus rhythm Nonspecific T wave abnormality Prolonged QT Abnormal ECG When compared with ECG of 05-AUG-2024 14:54, (unconfirmed) No significant change was found Confirmed by SIVA SILVERMAN M.D ([id number]) on 08/06/2024 4:15:19 PM [facility] 08/06/2024 5:53 AM CDT 08/06/2024 4:15 PM CDT us Alanna Dominguez RADIOLOGICAL HEALTH SPECIALIST ECG ORDERABLES Final Result [facility] * eGFR (08/05/2024 8:19 PM CDT) eGFR 85 >=60 mL/min/1. 73 m2 Comment: Interpretive Data [...] interpretive data was last reviewed 2021. Blood 08/05/2024 8:19 PM CDT 08/05/2024 8:47 PM CDT us Alanna Dominguez NP LAB BLOOD ORDERABLES Final R esult [facility] [place] [address] * (ABNORMAL) CBC without differential (08/05/2024 8:19 PM CDT) WBC 10.16(H) 3.80 - 9.90 K/cumm Hgb 8.2(L) 13.0 - 17.5 g/dL [facility] Hct 24.9(L) 38.9 - 50.3 % [facility] Plt 145(L) 150 - 400 K/cumm [facility] MPV 11.3 9.1 - 12.3 fL [facility] RBC 2.42(L) 4.30 - 5.80 M/cumm [facility] MCV 102.9(H) 81.3 - 96.4 fL [facility] MCH 33.9(H) 27.1 - 33.3 pg [facility] MCHC 32.9 32.3 - 35.7 g/dL [facility] RDW CV 14.5 11.1 - 14.9 % [facility] RDW SD 54.6(H) 35.7 - 48.1 fL [facility] NRBC abs 0.00 0.00 - 0.01 K/cumm [facility] Blood 08/05/2024 8:19 PM CDT 08/05/2024 8:48 PM CDT Alanna Dominguez RADIOLOGICAL HEALTH SPECIALIST LAB BLOOD ORDERABLES Final R esult Performing Organization Address [facility]/ZIP Co de Phone Number [facility] [place] [place] [address] * Type and screen (08/05/2024 8:19 PM CDT) Kumar, indirect Negative ABO Rh A Positive [facility] Blood 08/05/2024 8:19 PM CDT 08/05/2024 8:51 PM CDT Narrative [facility] - 08/05/2024 10:00 PM CDT Has the patient had Daratumumab or Isatuximab in the past 6 months?->Unknown Alanna Dominguez NP LAB BLOOD BANK TEST ORDERABL ES Final Result Performing Organization Address City/[facility]/ZIP Co de Phone Number [facility] [place] [address] * Phosphorus (08/05/2024 8:19 PM CDT) [facility] Phosphorus, pl 2.5 2.3 - 4.5 mg/dL Blood 08/05/2024 8:19 PM CDT 08/05/2024 8:47 PM CDT Alanna Dominguez RADIOLOGICAL HEALTH SPECIALIST LAB BLOOD ORDERABLES Final [facility] Performing Organization Address [facility] Co de Phone Number [facility] [place] [address] * Magnesium (08/05/2024 8:19 PM CDT) [facility] Magnesium 1.8 1.4 - 2.5 mg/dL Blood 08/05/2024 8:19 PM CDT 08/05/2024 8:47 PM CDT Alanna Dominguez RADIOLOGICAL HEALTH SPECIALIST LAB BLOOD ORDERABLES Final [facility] Performing Organization Address [facility] [facility] de Phone Number [facility] [place] [address] * (ABNORMAL) Basic metabolic panel (08/05/2024 8:19 PM CDT) [facility] Sodium 139 135 - 145 mmol/L Potassium, pl 4.0 3.3 - 4.9 mmol/L [facility] Chloride 103 97 - 110 mmol/L [facility] CO2 27 22 - 32 mmol/L [facility] Anion gap 9 2 - 15 mmol/L [facility] BUN 21 6 - 25 mg/dL [facility] Creatinine 0.95 0.80 - 1.30 mg/dL [facility] Glucose 149 70 - 199 mg/dL [facility] Comment: Interpretive Data Fasting glucose >/= [...] interpretive data was last revised 2022. Calcium 8.4(L) 8.5 - 10.3 mg/dL [facility] Blood 08/05/2024 8:19 PM CDT 08/05/2024 8:47 PM CDT Alanna Dominguez RADIOLOGICAL HEALTH SPECIALIST LAB BLOOD ORDERABLES Final R esult Performing Organization Address [facility] Co de Phone Number [facility] [place] [address] * Infection Prevention Joce auris PCR, surveillance Axilla/Groin (08/05/2024 4:41 PM CDT) Pathologist [facility] Emergency Department Joce auris DNA Not Detected Not Detected [facility] Comment: Interpretive Data Testing performed by [facility] using the Idalia lui [id number] Joce auris assay. This assay detects DNA from Joce auris using Real-Time PCR. This assay is laboratory developed and is not cleared by the [place] Food and Drug Administration. The performance characteristics have been verified by the [facility]. Axilla/Groin 08/05/2024 4:41 PM CDT 08/05/2024 5:24 PM CDT Herson Perla MD LAB MICROBIOLOGY - GENERAL ORDER VAHID Final Result Performing Organization Address [facility] Co de Phone Number [facility] Department [place] [address] [facility] * ECG 12 lead (08/05/2024 2:54 PM CDT) Ventricular Rate EKG/Min 76 BPM [facility] Atrial Rate 76 BPM [facility] HI-Interval (MSEC) 194 ms [facility] QRS-Interval (MSEC) 82 ms [facility] QT-Interval (MSEC) 454 ms [facility] QTc 510 ms [facility] [place] 67 degrees [facility] [place] 62 degrees [facility] [place] 11 degrees [facility] Diagnosis Normal sinus rhythm Nonspecific T wave abnormality Prolonged QT Abnormal ECG Confirmed by SIVA SILVERMAN M.D ([id number]) on 08/07/2024 10:45:07 PM [facility] 08/05/2024 2:54 PM CDT 08/07/2024 10:45 PM CDT Nick Veliz MD ECG ORDERABLES Final Re sult Performing Organization Address City/[facility]/ZIP Co de Phone Number [facility] * Potassium, whole blood (08/05/2024 12:04 PM CDT) Pathologist [facility] Emergency Department Potassium, bld 4.0 3.3 - 4.9 mmol/L Blood 08/05/2024 12:0 4 PM CDT 08/05/2024 12:08 PM CDT Arabella Gary NP LAB BLOOD ORDERABLES Fi nal Result Performing Organization Address [facility] Co de Phone Number [facility] Department [place] [address] * POCT glucose (08/05/2024 12:04 PM CDT) Glucose, POC 125 70 - 199 mg/dL Blood 08/05/2024 12:0 4 PM CDT 08/05/2024 12:04 PM CDT Nick Veliz MD LAB POCT ORDERABLES - DE VICE Final Result Performing Organization Address [facility] Co de Phone Number [facility] [place] [address] * POCT glucose (08/05/2024 8:07 AM CDT) Glucose, POC 123 70 - 199 mg/dL Blood 08/05/2024 8:07 AM CDT 08/05/2024 8:07 AM CDT Nick Veliz MD LAB POCT ORDERABLES - DE VICE Final Result Performing Organization Address [facility] Co de Phone Number [facility] Department [place] [address] * Potassium, whole blood (08/05/2024 8:02 AM CDT) Potassium, bld 4.0 3.3 - 4.9 mmol/L Blood 08/05/2024 8:02 AM CDT 08/05/2024 8:16 AM CDT Arabella Gary NP LAB BLOOD ORDERABLES Fi nal Result Performing Organization Address [facility] Co de Phone Number [facility] Department [place] [address] * Critical Care (08/05/2024 6:15 AM CDT) Narrative Malu Whatley MD - 08/05/2024 6:15 AM CDT Malu Whatley MD 08/05/2024 10:58 AM Critical Care Performed by: Codi Ibanez NP Authorized by: Codi Ibanez NP CRITICAL CARE: Team: 56 CTICU Shift: AM Level of Billing: Subsequent Hospital Visit Level 3 My time spent with this patient was 50 minutes: Critical Provider Statement: I have seen and examined the patient on this day of service. I have reviewed and confirmed the history, physical exam, laboratory, and radiographic data as documented in the ICU note. I have reviewed and discussed my treatment plan with the patient's team and other medical/production consultant staff. This time was in addition to and separate from care provided by other practitioners on this day of service. I spent time reviewing and interpreting data from bedside monitors, laboratory results, and imaging, I spent time discussing the management of this critically ill patient with consultants and the medical staff and I spent time documenting in the medical record us Codi Ibanez RADIOLOGICAL HEALTH SPECIALIST IN CLINIC/BEDSIDE ORDERABLES Fin al Result * Critical Care (08/04/2024 10:03 PM CDT) Narrative Malu Whatley MD - 08/04/2024 10:03 PM CDT Malu Whatley MD 08/05/2024 8:29 AM Critical Care Performed by: Fermin De León PA Authorized by: Fermin De León PA CRITICAL CARE: Team: 56 CTICU Shift: PM Level of Billing: Subsequent Hospital Visit Level 3 My time spent with this patient was 45 minutes: Critical Provider Statement: I have seen and examined the patient on this day of service. I have reviewed and confirmed the history, physical exam, laboratory, and radiographic data as documented in the ICU note. I have reviewed and discussed my treatment plan with the patient's team and other medical/production consultant staff. This time was in addition to and separate from care provided by other practitioners on this day of service. I spent time reviewing and interpreting data from bedside monitors, laboratory results, and imaging, I spent time discussing the management of this critically ill patient with consultants and the medical staff and I spent time documenting in the medical record us Fermin ANDERSEN IN CLINIC/BEDSIDE ORDERAB LES Final Result * (ABNORMAL) POC Blood Gas and Chemistries, Venous - (08/04/2024 9:41 PM CDT) pH, Carlos POC 7.44(H) 7.32 - 7.43 pCO2, carlos POC 43 40 - 50 mmHg [facility] pO2, carlos POC 41 mmHg [facility] Na, POC 136 135 - 145 mmol/L [facility] K POC 4.0 3.3 - 4.9 mmol/L [facility] Comment: Interpretive Data Not all point of care methods assess for hemolysis. Confirm with instrument and retest K+ if not consistent with clinical signs and symptoms. Current Interpretive Data was last revised on 2023. Cl, POC 104 97 - 110 mmol/L [facility] Ionized Ca, POC 4.62 4.50 - 5.10 mg/dL [facility] Glucose, POC 128 70 - 199 mg/dL [facility] Lactate, POC 1.1 0.7 - 2.0 mmol/L [facility] O2 Sat, Carlos POC (Vivian) 61 % [facility] Base excess, POC 4.6 mmol/L [facility] HCO3, Carlos POC 29 20 - 30 mmol/L [facility] Hct, POC 29.0(L) 41.4 - 51.6 % [facility] Total Hb, POC 9.5(L) 13.8 - 17.2 g/dL [facility] Blood 08/04/2024 9:41 PM CDT 08/04/2024 9:41 PM CDT Nick Veliz MD LAB POCT ORDERABLES - DE VICE Final Result [facility] [place] [address] * (ABNORMAL) CBC without differential (08/04/2024 9:18 PM CDT) [facility] WBC 9.65 3.80 - 9.90 K/cumm Hgb 8.4(L) 13.0 - 17.5 g/dL [facility] Hct 25.2(L) 38.9 - 50.3 % [facility] Plt 120(L) 150 - 400 K/cumm [facility] MPV 11.8 9.1 - 12.3 fL [facility] RBC 2.49(L) 4.30 - 5.80 M/cumm [facility] MCV 101.2(H) 81.3 - 96.4 fL [facility] MCH 33.7(H) 27.1 - 33.3 pg [facility] MCHC 33.3 32.3 - 35.7 g/dL [facility] RDW CV 14.6 11.1 - 14.9 % [facility] RDW SD 54.1(H) 35.7 - 48.1 fL [facility] NRBC abs 0.00 0.00 - 0.01 K/cumm [facility] Blood 08/04/2024 9:18 PM CDT 08/04/2024 9:38 PM CDT us Fermin De León PA LAB BLOOD ORDERABLES Teetee l Result Performing Organization Address [facility] Co de Phone Number [facility] [place] [address] * eGFR (08/04/2024 8:52 PM CDT) eGFR 89 >=60 mL/min/1. 73 m2 Comment: Interpretive Data [...] interpretive data was last reviewed 2021. Blood 08/04/2024 8:52 PM CDT 08/04/2024 9:04 PM CDT us Marilee Sandoval RADIOLOGICAL HEALTH SPECIALIST LAB BLOOD ORDERABLES Fin al Result Performing Organization Address City/[facility]/ZIP Co de Phone Number [facility] [place] [address] * Type and screen (08/04/2024 8:52 PM CDT) ABO Rh A Positive Kumar, indirect Negative [facility] Blood 08/04/2024 8:52 PM CDT 08/04/2024 9:19 PM CDT Narrative [facility] - 08/04/2024 10:26 PM CDT Has the patient had Daratumumab or Isatuximab in the past 6 months?->Unknown Fermin ANDERSEN LAB BLOOD BANK TEST ORDER VAHID Final Result Performing Organization Address [facility] Co de Phone Number [facility] [place] [place] [address] * Phosphorus (08/04/2024 8:52 PM CDT) Pathologist [facility] Department Phosphorus, pl 2.4 2.3 - 4.5 mg/dL Blood 08/04/2024 8:52 PM CDT 08/04/2024 9:04 PM CDT Selvin Domínguez RADIOLOGICAL HEALTH SPECIALIST LAB BLOOD ORDERABLES Teetee l Result Performing Organization Address City/[facility] Co de Phone Number [facility] [place] [address] * Magnesium (08/04/2024 8:52 PM CDT) [facility] Magnesium 1.8 1.4 - 2.5 mg/dL Blood 08/04/2024 8:52 PM CDT 08/04/2024 9:04 PM CDT Selvin Domínguez RADIOLOGICAL HEALTH SPECIALIST LAB BLOOD ORDERABLES Teetee l Result Performing Organization Address City/[facility] [place] [address] * (ABNORMAL) Hepatic function panel (08/04/2024 8:52 PM CDT) Bilirubin, total 0.8 0.1 - 1.2 mg/dL Bilirubin, direct 0.3 0.1 - 0.3 mg/dL [facility] Protein, pl 6.1(L) 6.5 - 8.5 g/dL [facility] Albumin 3.1(L) 3.5 - 5.0 g/dL [facility] Alk phos 54 40 - 130 Units/L [facility] ALT 29 7 - 55 Units/L [facility] AST 49 10 - 50 Units/L [facility] Blood 08/04/2024 8:52 PM CDT 08/04/2024 9:04 PM CDT Marilee Sandoval RADIOLOGICAL HEALTH SPECIALIST LAB BLOOD ORDERABLES Fin al Result [facility] [place] [address] * (ABNORMAL) Basic metabolic panel (08/04/2024 8:52 PM CDT) Sodium 137 135 - 145 mmol/L Potassium, pl 4.1 3.3 - 4.9 mmol/L [facility] Chloride 101 97 - 110 mmol/L [facility] CO2 28 22 - 32 mmol/L [facility] Anion gap 8 2 - 15 mmol/L [facility] BUN 22 6 - 25 mg/dL [facility] Creatinine 0.91 0.80 - 1.30 mg/dL [facility] Glucose 147 70 - 199 mg/dL [facility] Comment: Interpretive Data Fasting glucose >/= [...] interpretive data was last revised 2022. Calcium 7.9(L) 8.5 - 10.3 mg/dL [facility] Blood 08/04/2024 8:52 PM CDT 08/04/2024 9:04 PM CDT us Marilee Sandoval NP LAB BLOOD ORDERABLES Fin al Result [facility] CRAWFORD [facility] [place] [address] * XR Chest 1 View - in PM (08/04/2024 7:50 PM CDT) Anatomical Region Laterality Modality Body, Chest N/A Computed Radiogr aphy 08/05/2024 12:0 0 PM CDT Impressions 08/05/2024 12:00 PM CDT Comparison 08/03/2024 at 7:19 PM. Median sternotomy wires are aligned and intact. Left atrial appendage clip again seen. Aortic valve replacement again noted. Clyde-Clair catheter has been removed. New left peripherally inserted central venous catheter seen with tip near the superior cavoatrial junction. Bilateral chest tubes have been removed. Moderate size posterior layering pleural effusions with underlying atelectasis again noted, left greater than right. Mild pulmonary edema may be present. No pneumothorax seen. Cardiomediastinal silhouette stable. Electronically signed by: Jose David Daly M.D. Narrative 08/05/2024 12:00 PM CDT EXAMINATION: 1 view chest radiograph Procedure Note Jose David Daly MD - 08/05/2024 EXAMINATION: 1 view chest radiograph IMPRESSION: Comparison 08/03/2024 at 7:19 PM. Median sternotomy wires are aligned and intact. Left atrial appendage clip again seen. Aortic valve replacement again noted. Clyde-Clair catheter has been removed. New left peripherally inserted central venous catheter seen with tip near the superior cavoatrial junction. Bilateral chest tubes have been removed. Moderate size posterior layering pleural effusions with underlying atelectasis again noted, left greater than right. Mild pulmonary edema may be present. No pneumothorax seen. Cardiomediastinal silhouette stable. Electronically signed by: Jose David Daly M.D. us Marilee Sandoval RADIOLOGICAL HEALTH SPECIALIST IMG XR PROCEDURES Final Result * TRANSTHORACIC ECHO (TTE) LIMITED/FOLLOW UP W LTD DOPPLER/CF W CONTRAST (08/04/2024 12:01 PM CDT) Anatomical Region Laterality Modality Ultrasound 08/04/2024 11:1 8 AM CDT Narrative 08/04/2024 1:23 PM CDT [facility] [place] [address] Transthoracic Echocardiographic Report Patient Name: SHEY SHAH C : 1950 (73y 11m) Gender: M Study Date: 08/04/2024 11:18:36 AM Ht(Inch): 73 Wt(Lb): 216.05 BSA: 2.25 Jacquard Loom Weaver: Sandra Medina RDCS, RCCS Location: [id number] Order Provider: MARILEE SANDOVAL Heart Rate: 80 BMI: 28.5 BP: 135 / 52 Ref Provider: MARILEE SANDOVAL PROCEDURES: Echocardiographic Report: Limited transthoracic 2D echo with contrast, includes spectral and tissue Doppler, color flow Doppler, and/or M-mode, when performed. Additional Procedures: Myocardial strain imaging was performed. Contrast: Contrast Enhancement was Employed: After initial imaging due to sub- optimal quality related to co-morbidity defined by patient's body habitus. 0.4 ml Optison Administered, (2.6 ml wasted). Technically difficult study due to: Poor acoustic windows. Limited visualization of some cardiac structures precludes the ability to obtain complete measurements - INDICATIONS: Limited echo to evaluate LV function post Impella removal. CONCLUSIONS: 1. Normal left ventricular size based on volume index. Concentric LV remodeling. Mildly depressed left ventricular systolic function. The Ejection Fraction (Johnson's) is measured at 51 %. The average global longitudinal strain is abnormal. 2. Resting Segmental Wall Motion Analysis: Total wall motion score is 1.12. There is hypokinesis of the mid anterolateral to mid inferolateral wall. The remaining left ventricular segments demonstrate normal wall motion. 3. Catheter noted in right heart. Wire noted in the right heart. 4. Status post mitral valve repair with annuloplasty ring. 5. A bioprosthetic valve is present in the aortic position. The aortic prosthesis demonstrates normal transvalvular gradient for valve type and size. ATTESTATION: I have personally reviewed and interpreted this study without fellow or resident. - DISCLAIMER: The study images and the final report will be retained in the patient chart by the Echo Laboratory for the legally required time period. This chart constitutes the legal record of any testing performed. FINDINGS: Left Ventricle: Normal left ventricular size based on volume index. Concentric LV remodeling. Mildly depressed left ventricular systolic function. The Ejection Fraction (Johnson's) is measured at 51 %. The average global longitudinal strain is abnormal. The LV global strain is: -10.5 %. Resting Segmental Wall Motion Analysis: Total wall motion score is 1.12. There is hypokinesis of the mid anterolateral to mid inferolateral wall. The remaining left ventricular segments demonstrate normal wall motion. Right Ventricle: Catheter noted in right heart. Wire noted in the right heart. Left Atrium: The left atrium is normal in size. Right Atrium: The right atrium is normal in size. Mitral Valve: Moderate calcification. The mean transmitral gradient is: 3 mmHg. Specific MV Structure Abnormalities: Status post mitral valve repair with annuloplasty ring. Aortic Valve: Mild aortic valve stenosis. The mean transaortic gradient is 14 mmHg. Aortic valve dimensionless index is 0.53. A bioprosthetic valve is present in the aortic position. The aortic prosthesis demonstrates normal transvalvular gradient for valve type and size. Tricuspid Valve: Normal tricuspid valve structure. Mild tricuspid regurgitation. The estimated right ventricular systolic pressure is 25 mmHg. Pulmonic Valve: Normal pulmonic valve structure. No pulmonic regurgitation. No pulmonic valve stenosis present. Pericardium: No pericardial effusion. Left Pleural Effusion;. Aorta: Normal aortic root. Normal aortic root size at sinuses of Valsalva. Normal aortic root size when indexed. The ascending aorta is normal in size when indexed. PASP: Normal estimated pulmonary artery systolic pressure. Rhythm: Normal Sinus rhythm was seen during the study. MEASUREMENTS: 2D/MM Value Range Doppler Value Range LVIDd 2D 5.10 cm [ 4.20 - 5.80 ] AV Peak Arslan 2.3 m/s [ 1.0 - 1.7 ] LVIDs 2D 3.71 cm [ 2.50 - 4.00 ] AV Peak PG 21.16 mmHg IVSd 2D 1.19 cm [ 0.60 - 1.00 ] AV Mean PG 14 mmHg LVPWd 2D 1.09 cm [ 0.60 - 1.00 ] AV VTI 37.9 cm LV Thickness Ratio 1.1 LVOT Peak Arslan 1.3 m/s [ 0.7 - 1.1 ] LV FS 2D 27.29 % [ 25.00 - 43.00 ] LVOT Peak PG 6.76 mmHg LV Mass 2D 228.90 g LVOT Mean PG 4 mmHg LV Mass Index 2D 101.73 g/m2 LVOT VTI 20.0 cm RWT 0.43 LVOT/AV VTI 0.53 - Dimensionless index (DVI) EDV Mod BP 158.14 ml [ 62.00 - 150.00 ] MV Peak Arslan 1.4 m/s LV EDV Index 70.28 ml/m2 MV Peak PG 7.84 mmHg ESV Mod BP 77.66 ml [ 21.00 - 61.00 ] MV Mean PG 3 mmHg EF Mod BP 51 % [ 52 - 72 ] MV VTI 32.3 cm LV GLS -10.5 % [ -25.0 - -18.0 ] TR Peak Arslan 2.4 m/s [ 1.0 - 2.8 ] TR Peak PG 23.0 mmHg Electronically Signed By: Yash Palmer MD 08/04/2024 1:22:50 PM CDT Wall Motion Analysis - Resting Procedure Note Yash Palmer MD - 08/04/2024 [facility] [place] [address] Transthoracic Echocardiographic Report Patient Name: SHEY SHAH C : 1950 (73y 11m) Gender: M Study Date: 08/04/2024 11:18:36 AM Ht(Inch): 73 Wt(Lb): 216.05 BSA: 2.25 Jacquard Loom Weaver: Sandra Medina RDCS, RCCS Location: [id number] OrderProvider: MARILEE SANDOVAL Heart Rate: 80 BMI: 28.5 BP: 135 / 52 Ref Provider: MARILEE SANDOVAL PROCEDURES: Echocardiographic Report: Limited transthoracic 2D echo with contrast,includes spectral and tissue Doppler, color flow Doppler, and/or M-mode, when performed. Additional Procedures: Myocardial strain imaging was performed. Contrast: Contrast Enhancement was Employed: After initial imaging due tosub- optimal quality related to co-morbidity defined by patient's body habitus. 0.4 mlOptison Administered, (2.6 ml wasted). Technically difficult study due to: Poor acoustic windows. Limitedvisualization of some cardiac structures precludes the ability to obtain complete measurements - INDICATIONS: Limited echo to evaluate LV function post Impella removal. CONCLUSIONS: 1. Normal left ventricular size based on volume index. Concentric LVremodeling. Mildly depressed left ventricular systolic function. The Ejection Fraction(Johnson's) is measured at 51 %. The average global longitudinal strain is abnormal. 2. Resting Segmental Wall Motion Analysis: Total wall motion score is1.12. There is hypokinesis of the mid anterolateral to mid inferolateral wall. Theremaining left ventricular segments demonstrate normal wall motion. 3. Catheter noted in right heart. Wire noted in the right heart. 4. Status post mitral valve repair with annuloplasty ring. 5. A bioprosthetic valve is present in the aortic position. The aorticprosthesis demonstrates normal transvalvular gradient for valve type and size. ATTESTATION: I have personally reviewed and interpreted this study without fellow orresident. - DISCLAIMER: The study images and the final report will be retained in the patientchart by the Echo Laboratory for the legally required time period. This chart constitutesthe legal record of any testing performed. FINDINGS: Left Ventricle: Normal left ventricular size based on volume index.Concentric LV remodeling. Mildly depressed left ventricular systolic function. TheEjection Fraction (Johnson's) is measured at 51 %. The average global longitudinal strain isabnormal. The LV global strain is: -10.5 %. Resting Segmental Wall Motion Analysis: Total wall motion score is 1.12.There is hypokinesis of the mid anterolateral to mid inferolateral wall. Theremaining left ventricular segments demonstrate normal wall motion. Right Ventricle: Catheter noted in right heart. Wire noted in the rightheart. Left Atrium: The left atrium is normal in size. Right Atrium: The right atrium is normal in size. Mitral Valve: Moderate calcification. The mean transmitral gradient is: 3mmHg. Specific MV Structure Abnormalities: Status post mitral valve repair withannuloplasty ring. Aortic Valve: Mild aortic valve stenosis. The mean transaortic gradient is14 mmHg. Aortic valve dimensionless index is 0.53. A bioprosthetic valve is presentin the aortic position. The aortic prosthesis demonstrates normal transvalvular gradientfor valve type and size. Tricuspid Valve: Normal tricuspid valve structure. Mild tricuspidregurgitation. The estimated right ventricular systolic pressure is 25 mmHg. Pulmonic Valve: Normal pulmonic valve structure. No pulmonicregurgitation. No pulmonic valve stenosis present. Pericardium: No pericardial effusion. Left Pleural Effusion;. Aorta: Normal aortic root. Normal aortic root size at sinuses of Valsalva.Normal aortic root size when indexed. The ascending aorta is normal in size whenindexed. PASP: Normal estimated pulmonary artery systolic pressure. Rhythm: Normal Sinus rhythm was seen during the study. MEASUREMENTS: 2D/MM Value Range DopplerValue Range LVIDd 2D 5.10 cm [ 4.20 - 5.80 ] AV Peak Vel2.3 m/s [ 1.0 - 1.7 ] LVIDs 2D 3.71 cm [ 2.50 - 4.00 ] AV Peak PG21.16 mmHg IVSd 2D 1.19 cm [ 0.60 - 1.00 ] AV Mean PG14 mmHg LVPWd 2D 1.09 cm [ 0.60 - 1.00 ] AV VTI37.9 cm LV Thickness Ratio 1.1 LVOT Peak Vel1.3 m/s [ 0.7 - 1.1 ] LV FS 2D 27.29 % [ 25.00 - 43.00 ] LVOT Peak PG6.76 mmHg LV Mass 2D 228.90 g LVOT Mean PG4 mmHg LV Mass Index 2D 101.73 g/m2 LVOT VTI20.0 cm RWT 0.43 LVOT/AV VTI0.53 - Dimensionless index (DVI) EDV Mod BP 158.14 ml [ 62.00 - 150.00 ] MV Peak Vel1.4 m/s LV EDV Index 70.28 ml/m2 MV Peak PG7.84 mmHg ESV Mod BP 77.66 ml [ 21.00 - 61.00 ] MV Mean PG3 mmHg EF Mod BP 51 % [ 52 - 72 ] MV VTI32.3 cm LV GLS -10.5 % [ -25.0 - -18.0 ] TR Peak Vel2.4 m/s [ 1.0 - 2.8 ] TR Peak PG 23.0 mmHg Electronically Signed By: Yash Palmer MD 08/04/2024 1:22:50 PM CDT [facility] - Resting Marilee Sandoval NP CV ECHO PROCEDURES Final Result * Potassium, whole blood (08/04/2024 7:43 AM CDT) Potassium, bld 3.6 3.3 - 4.9 mmol/L Blood 08/04/2024 7:43 AM CDT 08/04/2024 7:55 AM CDT Codi Ibanez RADIOLOGICAL HEALTH SPECIALIST LAB BLOOD ORDERABLES Final Resul t Performing Organization Address City/State/[facility] Co de Phone Number CERNER [facility] [place] [address] * Critical Care (08/04/2024 6:49 AM CDT) Narrative Malu Whatley MD - 08/04/2024 6:49 AM CDT Malu Whatley MD 08/04/2024 2:03 PM Critical Care Performed by: Codi Ibanez NP Authorized by: Codi Ibanez NP CRITICAL CARE: Team: 56 CTICU Shift: AM Level of Billing: Critical Care My time spent with this patient was 65 minutes: Critical Provider Statement: I have seen and examined the patient on this day of service. I have reviewed and confirmed the history, physical exam, laboratory and radiologic data as documented in the signed ICU note. I have reviewed and discussed my treatment plan with the ICU team and other medical/production consultant staff, making frequent assessments and decisions regarding this patient's complex medical care. Critical Care time was exclusive of time spent performing separately billed procedures, treating other patients, and teaching. This time was in addition to and separate from critical care provided by other practitioners in my group on this day of service. Critical Care was necessary to treat or prevent imminent or life-threatening deterioration of the following conditions: I spent time reviewing and interpreting data from bedside monitors, laboratory results, and imaging, I spent time discussing the management of this critically ill patient with consultants and the medical staff and I spent time documenting in the medical record Coid Ibaenz NP IN CLINIC/BEDSIDE ORDERABLES Fin al Result * Oxyhemoglobin, pulmonary artery (08/04/2024 12:01 AM CDT) Oxyhemoglobin, PA 61.6 % Comment: Interpretive Data No reference range established. Current interpretive data was last revised 2019. Blood 08/04/2024 12:0 1 AM CDT 08/04/2024 12:20 AM CDT Selvin Domínguez NP LAB BLOOD ORDERABLES Teetee l Result Performing Organization Address City/State/[facility] Co de Phone Number [facility]GI [facility] Department [place] [address] * Potassium, whole blood (08/04/2024 12:01 AM CDT) Potassium, bld 3.8 3.3 - 4.9 mmol/L Blood 08/04/2024 12:0 1 AM CDT 08/04/2024 12:21 AM CDT us Arabella Gary RADIOLOGICAL HEALTH SPECIALIST LAB BLOOD ORDERABLES Fi nal Result Performing Organization Address [facility] de Phone Number MARGI [facility] [place] [address] * eGFR (08/04/2024 12:01 AM CDT) eGFR 87 >=60 mL/min/1. 73 m2 Comment: Interpretive Data [...] interpretive data was last reviewed 2021. Blood 08/04/2024 12:0 1 AM CDT 08/04/2024 12:18 AM CDT us Mariele Sandoval RADIOLOGICAL HEALTH SPECIALIST LAB BLOOD ORDERABLES Fin al Result Performing Organization Address [facility] Co de Phone Number [facility] Department [place] [address] * Lactate, whole blood (08/04/2024 12:01 AM CDT) [facility] Lactate, bld 0.9 0.7 - 2.0 mmol/L Blood 08/04/2024 12:0 1 AM CDT 08/04/2024 12:21 AM CDT us Marilee Sandoval RADIOLOGICAL HEALTH SPECIALIST LAB BLOOD ORDERABLES Fin al Result Performing Organization Address [facility] Co de Phone Number [facility] [place] [address] * (ABNORMAL) CBC without differential (08/04/2024 12:01 AM CDT) [facility] WBC 8.80 3.80 - 9.90 K/cumm Hgb 8.0(L) 13.0 - 17.5 g/dL [facility] Hct 24.3(L) 38.9 - 50.3 % [facility] Plt 95(L) 150 - 400 K/cumm [facility] MPV 11.7 9.1 - 12.3 fL [facility] RBC 2.40(L) 4.30 - 5.80 M/cumm [facility] MCV 101.3(H) 81.3 - 96.4 fL [facility] MCH 33.3 27.1 - 33.3 pg [facility] MCHC 32.9 32.3 - 35.7 g/dL [facility] RDW CV 14.8 11.1 - 14.9 % [facility] RDW SD 55.1(H) 35.7 - 48.1 fL [facility] NRBC abs 0.00 0.00 - 0.01 K/cumm [facility] Blood 08/04/2024 12:0 1 AM CDT 08/04/2024 12:19 AM CDT us Marilee Sandoval RADIOLOGICAL HEALTH SPECIALIST LAB BLOOD ORDERABLES Fin al Result Performing Organization Address City/[facility]/ZIP [place] [address] * Phosphorus (08/04/2024 12:01 AM CDT) Phosphorus, pl 3.0 2.3 - 4.5 mg/dL Blood 08/04/2024 12:0 1 AM CDT 08/04/2024 12:18 AM CDT Selvin Domínguez RADIOLOGICAL HEALTH SPECIALIST LAB BLOOD ORDERABLES Teetee l Result Performing Organization Address [facility] Co de Phone Number [facility] [place] [address] * Magnesium (08/04/2024 12:01 AM CDT) [facility] Magnesium 1.9 1.4 - 2.5 mg/dL Blood 08/04/2024 12:0 1 AM CDT 08/04/2024 12:18 AM CDT Selvin Domínguez RADIOLOGICAL HEALTH SPECIALIST LAB BLOOD ORDERABLES Teetee l Result Performing Organization Address [facility] Co de Phone Number [facility] [place] [address] * (ABNORMAL) Blood gas, arterial (08/04/2024 12:01 AM CDT) pH, Art 7.46(H) 7.35 - 7.45 PCO2, Arterial 36 35 - 45 mmHg [facility] PO2, Arterial 142(H) 83 - 108 mmHg [facility] HCO3 Art (Calculated) 26 20 - 30 mmol/L [facility] BE, art 2 mmol/L [facility] Comment: Interpretive Data No Reference Range Established Current Interpretive Data was last revised on 2017 O2 Sat Art (Measured) 99(H) 90 - 95 % [facility] Blood 08/04/2024 12:0 1 AM CDT 08/04/2024 12:21 AM CDT Selvin Domínguez RADIOLOGICAL HEALTH SPECIALIST LAB BLOOD ORDERABLES Teetee l Result Performing Organization Address City/[facility] Co de Phone Number [facility] Department [place] [address] * Creatine kinase (CK), total (08/04/2024 12:01 AM CDT) Pathologist [facility] CK 60 40 - 300 Units/L Blood 08/04/2024 12:0 1 AM CDT 08/04/2024 12:18 AM CDT Nick Veliz MD LAB BLOOD ORDERABLES Fin al Result Performing Organization Address [facility] de Phone Number [facility] Department [place] [address] * (ABNORMAL) Hepatic function panel (08/04/2024 12:01 AM CDT) Pathologist [facility] Bilirubin, total 0.8 0.1 - 1.2 mg/dL Bilirubin, direct 0.4(H) 0.1 - 0.3 mg/dL [facility] Protein, pl 5.8(L) 6.5 - 8.5 g/dL [facility] Albumin 2.8(L) 3.5 - 5.0 g/dL [facility] Alk phos 51 40 - 130 Units/L [facility] ALT 20 7 - 55 Units/L [facility] AST 38 10 - 50 Units/L [facility] Blood 08/04/2024 12:0 1 AM CDT 08/04/2024 12:18 AM CDT Marilee Sandoval RADIOLOGICAL HEALTH SPECIALIST LAB BLOOD ORDERABLES Fin al Result Performing Organization Address [facility] Co de Phone Number [facility] Department [place] [address] * (ABNORMAL) Basic metabolic panel (08/04/2024 12:01 AM CDT) [facility] Sodium 137 135 - 145 mmol/L Potassium, pl 4.0 3.3 - 4.9 mmol/L [facility] Chloride 103 97 - 110 mmol/L [facility] CO2 26 22 - 32 mmol/L [facility] Anion gap 8 2 - 15 mmol/L [facility] BUN 25 6 - 25 mg/dL [facility] Creatinine 0.93 0.80 - 1.30 mg/dL [facility] Glucose 117 70 - 199 mg/dL [facility] Comment: Interpretive Data Fasting glucose >/= [...] interpretive data was last revised 2022. Calcium 8.4(L) 8.5 - 10.3 mg/dL [facility] Blood 08/04/2024 12:0 1 AM CDT 08/04/2024 12:18 AM CDT us Marilee Sandoval RADIOLOGICAL HEALTH SPECIALIST LAB BLOOD ORDERABLES Fin al Result [facility] [place] [address] * XR Chest 1 View - in PM (08/03/2024 7:21 PM CDT) Anatomical Region Laterality Modality Body, Chest N/A Digital Radiogra phy 08/04/2024 10:1 3 AM CDT Impressions 08/04/2024 10:13 AM CDT Comparison with 08/02/2024. The posterior layering pleural effusions pulmonary edema stable. There is no pneumothorax. Clyde-Clair catheter projects over the main pulmonary artery. Impala type device is been removed. Sternal wires midline and nondisplaced. Bioprosthetic aortic valve unchanged. Electronically signed by: Jeremias Howard M.D., MPH Narrative 08/04/2024 10:13 AM CDT EXAMINATION: 1 view chest radiograph Procedure Note Jeremias Howard MD - 08/04/2024 EXAMINATION: 1 view chest radiograph IMPRESSION: Comparison with 08/02/2024. The posterior layering pleural effusions pulmonary edema stable. There is no pneumothorax. Clyde-Clair catheter projects over the main pulmonary artery. Impala type device is been removed. Sternal wires midline and nondisplaced. Bioprosthetic aortic valve unchanged. Electronically signed by: Jeremias Howard M.D., MPH Marilee Sandoval NP IMG XR PROCEDURES Final Result * Critical Care (08/03/2024 6:40 PM CDT) Narrative Malu Whatley MD - 08/03/2024 6:40 PM CDT Malu Whatley MD 08/04/2024 7:30 AM Critical Care Performed by: Mt Julien NP Authorized by: Mt Julien NP CRITICAL CARE: Team: 56 CTICU Shift: PM Level of Billing: Critical Care My time spent with this patient was 30 minutes: Critical Provider Statement: I have seen and examined the patient on this day of service. I have reviewed and confirmed the history, physical exam, laboratory and radiologic data as documented in the signed ICU note. I have reviewed and discussed my treatment plan with the ICU team and other medical/production consultant staff, making frequent assessments and decisions regarding this patient's complex medical care. Critical Care time was exclusive of time spent performing separately billed procedures, treating other patients, and teaching. This time was in addition to and separate from critical care provided by other practitioners in my group on this day of service. Critical Care was necessary to treat or prevent imminent or life-threatening deterioration of the following conditions: I spent time reviewing and interpreting data from bedside monitors, laboratory results, and imaging, I spent time discussing the management of this critically ill patient with consultants and the medical staff and I spent time documenting in the medical record Mt Julien RADIOLOGICAL HEALTH SPECIALIST IN CLINIC/BEDSIDE ORDERABLES F inal Result * Oxyhemoglobin, pulmonary artery (08/03/2024 6:06 PM CDT) Oxyhemoglobin, PA 55.7 % Comment: Interpretive Data No reference range established. Current interpretive data was last revised 2019. Blood 08/03/2024 6:06 PM CDT 08/03/2024 6:25 PM CDT Selvin Domínguez RADIOLOGICAL HEALTH SPECIALIST LAB BLOOD ORDERABLES Teetee l Result [facility] [place] [address] * Blood culture Blood (08/03/2024 5:27 PM CDT) Report Final Report: No growth Blood 08/03/2024 5:27 PM CDT 08/03/2024 5:31 PM CDT [facility]ative [facility] - 08/08/2024 7:00 AM CDT Collection->Peripheral 1. Blood cultures are incubated for [...] performance characteristics have been verified by the [facility]. For questions about this culture, contact the Microbiology Laboratory at [phone]. Interpretive data was last revised on 24. Marilee Sandoval LAB MICROBIOLOGY - [facility] AL ORDERABLES Final Result [facility] [place] [address] * Blood culture Blood (08/03/2024 5:27 PM CDT) Report Final Report: No growth Blood 08/03/2024 5:27 PM CDT 08/03/2024 5:31 PM CDT Narrative [facility] - 08/08/2024 7:00 AM CDT Collection->Peripheral 1. Blood cultures are incubated for [...] performance characteristics have been verified by the [facility]. For questions about this culture, contact the Microbiology Laboratory at [phone]. Interpretive data was last revised on 24. Marilee Sandoval RADIOLOGICAL HEALTH SPECIALIST LAB MICROBIOLOGY - GENER AL ORDERABLES Final Result MARGI SANTA [facility] [place] [address] * Potassium, whole blood (08/03/2024 8:36 AM CDT) Potassium, bld 3.8 3.3 - 4.9 mmol/L Blood 08/03/2024 8:36 AM CDT 08/03/2024 8:42 AM CDT us Arabella Gary NP LAB BLOOD ORDERABLES Fi nal Result Performing Organization Address [facility] Co de Phone Number MARGI [facility] Department [place] [address] * Critical Care (08/03/2024 6:55 AM CDT) Narrative Malu Whatley MD - 08/03/2024 6:55 AM CDT Malu Whatley MD 08/04/2024 7:31 AM Critical Care Performed by: Marilee Sandoval NP Authorized by: Marilee Sandoval NP CRITICAL CARE: Team: 56 CTICU Shift: AM Level of Billing: Critical Care My time spent with this patient was 90 minutes: Critical Provider Statement: I have seen and examined the patient on this day of service. I have reviewed and confirmed the history, physical exam, laboratory and radiologic data as documented in the signed ICU note. I have reviewed and discussed my treatment plan with the ICU team and other medical/production consultant staff, making frequent assessments and decisions regarding this patient's complex medical care. Critical Care time was exclusive of time spent performing separately billed procedures, treating other patients, and teaching. This time was in addition to and separate from critical care provided by other practitioners in my group on this day of service. Critical Care was necessary to treat or prevent imminent or life-threatening deterioration of the following conditions: I spent time reviewing and interpreting data from bedside monitors, laboratory results, and imaging, I spent time documenting in the medical record and I spent time discussing the management of this critically ill patient with consultants and the medical staff us Marilee Sandoval RADIOLOGICAL HEALTH SPECIALIST IN CLINIC/BEDSIDE ORDERA BLES Final Result * Oxyhemoglobin, central venous (08/03/2024 12:10 AM CDT) Oxyhemoglobin, CV 60.8 % Comment: Interpretive Data No reference range established. Current interpretive data was last revised 2019. Blood 08/03/2024 12:1 0 AM CDT 08/03/2024 12:26 AM CDT Marilee Sandoval RADIOLOGICAL HEALTH SPECIALIST LAB BLOOD ORDERABLES Fin al Result Performing Organization Address [facility] Co de Phone Number [facility] [place] [address] * Oxyhemoglobin, pulmonary artery (08/03/2024 12:10 AM CDT) Oxyhemoglobin, PA 62.4 % Comment: Interpretive Data No reference range established. Current interpretive data was last revised 2019. Blood 08/03/2024 12:1 0 AM CDT 08/03/2024 12:26 AM CDT Selvin Domínguez RADIOLOGICAL HEALTH SPECIALIST LAB BLOOD ORDERABLES Teetee l Result Performing Organization Address [facility] Co de Phone Number [facility] [place] [address] * (ABNORMAL) Hemoglobin total, pulmonary artery (08/03/2024 12:10 AM CDT) Hemoglobin total, PA 9.0(L) 13.0 - 17.5 g/dL Blood 08/03/2024 12:1 0 AM CDT 08/03/2024 12:26 AM CDT Arabella Gary RADIOLOGICAL HEALTH SPECIALIST LAB BLOOD ORDERABLES Fi nal Result Performing Organization Address City/[facility] Co de Phone Number [facility] Department [place] [address] * Lactate (08/03/2024 12:10 AM CDT) Pathologist [facility] Lactate 0.9 0.7 - 2.0 mmol/L Blood 08/03/2024 12:1 0 AM CDT 08/03/2024 12:30 AM CDT Marilee Sandoval RADIOLOGICAL HEALTH SPECIALIST LAB BLOOD ORDERABLES Fin al Result Performing Organization Address [facility] Co de Phone Number [facility] [place] [address] * Hemoglobin, plasma (08/03/2024 12:10 AM CDT) Pathologist [facility] Hemoglobin, Plasma <30 <=50 mg/dL Blood 08/03/2024 12:1 0 AM CDT 08/03/2024 12:26 AM CDT Marilee Sandoval RADIOLOGICAL HEALTH SPECIALIST LAB BLOOD ORDERABLES Fin al Result Performing Organization Address [facility] Co de Phone Number [facility] [place] [address] * eGFR (08/03/2024 12:10 AM CDT) eGFR 85 >=60 mL/min/1. 73 m2 Comment: Interpretive Data [...] interpretive data was last reviewed 2021. Blood 08/03/2024 12:1 0 AM CDT 08/03/2024 12:54 AM CDT Nick Veliz MD LAB BLOOD ORDERABLES Fin al Result [facility] [place] [address] * Heparin anti factor Xa activity (08/03/2024 12:10 AM CDT) Anti Factor Xa <0.10 IUnits/mL Comment: Interpretive Data Enoxaparin therapeutic range (peak): VTE treatment, Q12hr dosin.60-1.00 IUnits/mL VTE treatment, Q24hr dosin.00-2.00 IUnits/mL Q24hr dosing for renal impairment (CrCl <30 mL/min): 0.60-1.00 IUnits/mL VTE prevention: 0.10-0.40 IUnits/mL - Anti-Xa therapeutic ranges apply to blood samples drawn 4 hours after last dose (peak). - Unfractionated heparin (UFH) therapeutic range: 0.30-0.70 IUnits/mL - Direct factor Xa inhibitors (rivaroxaban, apixaban): Results must be interpreted qualitatively. No activity detected suggests little anticoagulant activity. - In severe antithrombin deficiency, anti-Xa measurement may be inaccurate. - Interpretive guidelines developed in adult populations. Interpretive guidelines for pediatric patients have not been rigorously defined. - Current interpretive data was last revised on 2018. Blood 08/03/2024 12:1 0 AM CDT 08/03/2024 12:29 AM CDT Nick Veliz MD LAB BLOOD ORDERABLES Fin al Result Performing Organization Address [facility] Co de Phone Number [facility] [place] [address] * Lactate, whole blood (08/03/2024 12:10 AM CDT) Lactate, bld 0.9 0.7 - 2.0 mmol/L Blood 08/03/2024 12:1 0 AM CDT 08/03/2024 12:26 AM CDT Nick Veliz MD LAB BLOOD ORDERABLES Fin al Result Performing Organization Address [facility] de Phone Number [facility] [place] [address] * aPTT (08/03/2024 12:10 AM CDT) aPTT 30 28 - 38 sec Comment: Interpretive Data Heparin therapeutic range: 66.0 - 100.0 seconds. Range based on correlation with therapeutic heparin activity range of 0.3 - 0.7 Units/mL. Current interpretive data was last revised on 2023. Blood 08/03/2024 12:1 0 AM CDT 08/03/2024 12:29 AM CDT Marilee Sandoval NP LAB BLOOD ORDERABLES Fin al Result Performing Organization Address [facility] Co de Phone Number [facility] [place] [address] * (ABNORMAL) Protime-INR (08/03/2024 12:10 AM CDT) PT 16.8(H) 9.7 - 13.0 sec INR 1.54(H) 0.90 - 1.20 [facility] Comment: Interpretive data Oral anticoagulant therapeutic ranges: Venous thromboembolism prophylaxis or treatment: 2.0-3.0 CARDIOLOGY Standard range: 2.0-3.0 High-intensity range: 2.5-3.5 Refer to indication-specific guidelines for appropriate target ranges for prosthetic heart valve replacement. Current interpretive data was last revised on 2019. Blood 08/03/2024 12:1 0 AM CDT 08/03/2024 12:29 AM CDT Marilee Sandoval NP LAB BLOOD ORDERABLES Fin al Result Performing Organization Address City/[facility] Co de Phone Number [facility] [place] [address] * (ABNORMAL) Fibrinogen (08/03/2024 12:10 AM CDT) [facility] Fibrinogen 561(H) 170 - 400 mg/dL Blood 08/03/2024 12:1 0 AM CDT 08/03/2024 12:29 AM CDT Nick Veliz MD LAB BLOOD ORDERABLES Fin al Result Performing Organization Address [facility] de Phone Number [facility] Department [place] [address] * (ABNORMAL) CBC without differential (08/03/2024 12:10 AM CDT) [facility] WBC 9.31 3.80 - 9.90 K/cumm Hgb 8.4(L) 13.0 - 17.5 g/dL [facility] Hct 24.6(L) 38.9 - 50.3 % [facility] Plt 74(L) 150 - 400 K/cumm [facility] MPV 12.0 9.1 - 12.3 fL [facility] RBC 2.47(L) 4.30 - 5.80 M/cumm [facility] MCV 99.6(H) 81.3 - 96.4 fL [facility] MCH 34.0(H) 27.1 - 33.3 pg [facility] MCHC 34.1 32.3 - 35.7 g/dL [facility] RDW CV 15.3(H) 11.1 - 14.9 % [facility] RDW SD 55.7(H) 35.7 - 48.1 fL [facility] NRBC abs 0.00 0.00 - 0.01 K/cumm [facility] Blood 08/03/2024 12:1 0 AM CDT 08/03/2024 12:26 AM CDT Marilee Sandoval RADIOLOGICAL HEALTH SPECIALIST LAB BLOOD ORDERABLES Fin al Result Performing Organization Address [facility] Co de Phone Number [facility] [place] [address] * Phosphorus (08/03/2024 12:10 AM CDT) Phosphorus, pl 3.6 2.3 - 4.5 mg/dL Blood 08/03/2024 12:1 0 AM CDT 08/03/2024 12:30 AM CDT Selvin Domínguez RADIOLOGICAL HEALTH SPECIALIST LAB BLOOD ORDERABLES Teetee l Result Performing Organization Address [facility] de Phone Number [facility] [place] [address] * Magnesium (08/03/2024 12:10 AM CDT) Magnesium 1.8 1.4 - 2.5 mg/dL Blood 08/03/2024 12:1 0 AM CDT 08/03/2024 12:30 AM CDT Selvin Domínguez RADIOLOGICAL HEALTH SPECIALIST LAB BLOOD ORDERABLES Teetee l Result Performing Organization Address City/[facility]/ZIP Co de Phone Number [facility] [place] [address] * (ABNORMAL) Lactate dehydrogenase (LD) (08/03/2024 12:10 AM CDT) Pathologist [facility] Lactate dehydrogenase (LDH) 347(H) 100 - 250 Units/L Blood 08/03/2024 12:1 0 AM CDT 08/03/2024 12:30 AM CDT Marilee Sandoval RADIOLOGICAL HEALTH SPECIALIST LAB BLOOD ORDERABLES Fin al Result Performing Organization Address [facility] de Phone Number [facility] Department [place] [address] * (ABNORMAL) Blood gas, arterial (08/03/2024 12:10 AM CDT) [facility] pH, Art 7.46(H) 7.35 - 7.45 PCO2, Arterial 36 35 - 45 mmHg [facility] PO2, Arterial 130(H) 83 - 108 mmHg [facility] HCO3 Art (Calculated) 26 20 - 30 mmol/L [facility] BE, art 2 mmol/L [facility] Comment: Interpretive Data No Reference Range Established Current Interpretive Data was last revised on 2017 O2 Sat Art (Measured) 99(H) 90 - 95 % [facility] Blood 08/03/2024 12:1 0 AM CDT 08/03/2024 12:26 AM CDT Selvin Domínguez RADIOLOGICAL HEALTH SPECIALIST LAB BLOOD ORDERABLES Teetee l Result Performing Organization Address [facility] Co de Phone Number [facility] Department [place] [address] * Creatine kinase (CK), total (08/03/2024 12:10 AM CDT) [facility] CK 97 40 - 300 Units/L Blood 08/03/2024 12:1 0 AM CDT 08/03/2024 12:30 AM CDT Nick Veliz MD LAB BLOOD ORDERABLES Fin al Result Performing Organization Address City/[facility]/ZIP Co de Phone Number [facility] Department [place] [address] * (ABNORMAL) Hepatic function panel (08/03/2024 12:10 AM CDT) Pathologist [facility] Bilirubin, total 0.9 0.1 - 1.2 mg/dL Bilirubin, direct 0.4(H) 0.1 - 0.3 mg/dL [facility] Protein, pl 5.9(L) 6.5 - 8.5 g/dL [facility] Albumin 3.1(L) 3.5 - 5.0 g/dL [facility] Alk phos 50 40 - 130 Units/L [facility] ALT 15 7 - 55 Units/L [facility] AST 41 10 - 50 Units/L [facility] Blood 08/03/2024 12:1 0 AM CDT 08/03/2024 12:30 AM CDT Marilee Sandoval NP LAB BLOOD ORDERABLES Fin al Result Performing Organization Address [facility] Co de Phone Number [facility] Department [place] [address] * (ABNORMAL) Basic metabolic panel (08/03/2024 12:10 AM CDT) Pathologist [facility] Sodium 139 135 - 145 mmol/L Potassium, pl 3.8 3.3 - 4.9 mmol/L [facility] Chloride 106 97 - 110 mmol/L [facility] CO2 25 22 - 32 mmol/L [facility] Anion gap 8 2 - 15 mmol/L [facility] BUN 26(H) 6 - 25 mg/dL [facility] Creatinine 0.95 0.80 - 1.30 mg/dL [facility] Glucose 124 70 - 199 mg/dL [facility] Comment: Interpretive Data Fasting glucose >/= [...] interpretive data was last revised 2022. Calcium 9.0 8.5 - 10.3 mg/dL [facility] Blood 08/03/2024 12:1 0 AM CDT 08/03/2024 12:30 AM CDT us Nick Veliz MD LAB BLOOD ORDERABLES Fin al Result [facility] Department [place] [address] * XR Chest 1 View - in PM (08/02/2024 8:57 PM CDT) Anatomical Region Laterality Modality Body, Chest N/A Digital Radiogra phy 08/02/2024 9:38 PM CDT Impressions 08/02/2024 9:38 PM CDT Comparison to 08/01/2024. Impella. Right IJ PA catheter with tip over the main pulmonary artery. Small bilateral pleural effusions with bibasilar lung opacities, likely atelectasis, not significantly changed from prior. There are bilateral chest tubes in place. 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 No pneumothorax seen. Electronically signed by: Jimmy Camacho M.D. Narrative 08/02/2024 9:38 PM CDT EXAMINATION: 1 view chest radiograph Procedure Note Jimmy Camacho MD - 08/02/2024 EXAMINATION: 1 view chest radiograph IMPRESSION: Comparison to 08/01/2024. Impella. Right IJ PA catheter with tip over the main pulmonary artery. Small bilateral pleural effusions with bibasilar lung opacities, likely atelectasis, not significantly changed from prior. There are bilateral chest tubes in place. 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 No pneumothorax seen. Electronically signed by: Jimmy Camacho M.D. us Marilee Sandoval RADIOLOGICAL HEALTH SPECIALIST IMG XR PROCEDURES Final Result * POCT glucose (08/02/2024 8:15 PM CDT) Glucose, POC 139 70 - 199 mg/dL Blood 08/02/2024 8:15 PM CDT 08/02/2024 8:15 PM CDT us Nick Veliz MD LAB POCT ORDERABLES - DE VICE Final Result [facility] [place] [address] * Critical Care (08/02/2024 6:53 PM CDT) Narrative Malu Whatley MD - 08/02/2024 6:53 PM CDT Malu Whatley MD 08/03/2024 11:54 AM Critical Care Performed by: Mt Julien NP Authorized by: Mt Julien NP CRITICAL CARE: Team: 56 CTICU Shift: PM Level of Billing: Critical Care My time spent with this patient was 80 minutes: Critical Provider Statement: I have seen and examined the patient on this day of service. I have reviewed and confirmed the history, physical exam, laboratory and radiologic data as documented in the signed ICU note. I have reviewed and discussed my treatment plan with the ICU team and other medical/production consultant staff, making frequent assessments and decisions regarding this patient's complex medical care. Critical Care time was exclusive of time spent performing separately billed procedures, treating other patients, and teaching. This time was in addition to and separate from critical care provided by other practitioners in my group on this day of service. Critical Care was necessary to treat or prevent imminent or life-threatening deterioration of the following conditions: I spent time reviewing and interpreting data from bedside monitors, laboratory results, and imaging, I spent time discussing the management of this critically ill patient with consultants and the medical staff and I spent time documenting in the medical record Mt Julien RADIOLOGICAL HEALTH SPECIALIST IN CLINIC/BEDSIDE ORDERABLES F inal Result * POCT glucose (08/02/2024 6:12 PM CDT) Glucose, POC 128 70 - 199 mg/dL Blood 08/02/2024 6:12 PM CDT 08/02/2024 6:12 PM CDT Nick Veliz MD LAB POCT ORDERABLES - DE VICE Final Result Performing Organization Address [facility] Co de Phone Number [facility] [place] [address] * Oxyhemoglobin, pulmonary artery (08/02/2024 3:30 PM CDT) Oxyhemoglobin, PA 64.3 % Comment: Interpretive Data No reference range established. Current interpretive data was last revised 2019. Blood 08/02/2024 3:30 PM CDT 08/02/2024 3:34 PM CDT Selvin Domínguez RADIOLOGICAL HEALTH SPECIALIST LAB BLOOD ORDERABLES Teetee l Result Performing Organization Address [facility]/ZIP Co de Phone Number [facility] Department [place] [address] * (ABNORMAL) Hemoglobin total, pulmonary artery (08/02/2024 3:30 PM CDT) Hemoglobin total, PA 8.5(L) 13.0 - 17.5 g/dL Blood 08/02/2024 3:30 PM CDT 08/02/2024 3:34 PM CDT Arabella Gary RADIOLOGICAL HEALTH SPECIALIST LAB BLOOD ORDERABLES Fi nal Result Performing Organization Address City/[facility]/ZIP Co de Phone Number [facility] [place] [place] [address] * Potassium, whole blood (08/02/2024 3:30 PM CDT) Potassium, bld 3.9 3.3 - 4.9 mmol/L Blood 08/02/2024 3:30 PM CDT 08/02/2024 3:34 PM CDT us Arabella Gary RADIOLOGICAL HEALTH SPECIALIST LAB BLOOD ORDERABLES Fi nal Result Performing Organization Address City/[facility]/ZIP Co de Phone Number [facility] [place] [place] [address] * eGFR (08/02/2024 3:30 PM CDT) eGFR 77 >=60 mL/min/1. 73 m2 Comment: Interpretive Data [...] interpretive data was last reviewed 2021. Blood 08/02/2024 3:30 PM CDT 08/02/2024 3:40 PM CDT us Marilee Sandoval RADIOLOGICAL HEALTH SPECIALIST LAB BLOOD ORDERABLES Fin al Result [facility] Department [place] [address] * Heparin anti factor Xa activity (08/02/2024 3:30 PM CDT) Anti Factor Xa <0.10 IUnits/mL Comment: No clot detected in sample - [id number] - 08/02/24, 4:05 PM Interpretive Data Enoxaparin therapeutic range (peak): VTE treatment, Q12hr dosin.60-1.00 IUnits/mL VTE treatment, Q24hr dosin.00-2.00 IUnits/mL Q24hr dosing for renal impairment (CrCl <30 mL/min): 0.60-1.00 IUnits/mL VTE prevention: 0.10-0.40 IUnits/mL - Anti-Xa therapeutic ranges apply to blood samples drawn 4 hours after last dose (peak). - Unfractionated heparin (UFH) therapeutic range: 0.30-0.70 IUnits/mL - Direct factor Xa inhibitors (rivaroxaban, apixaban): Results must be interpreted qualitatively. No activity detected suggests little anticoagulant activity. - In severe antithrombin deficiency, anti-Xa measurement may be inaccurate. - Interpretive guidelines developed in adult populations. Interpretive guidelines for pediatric patients have not been rigorously defined. - Current interpretive data was last revised on 2018. Blood 08/02/2024 3:30 PM CDT 08/02/2024 3:34 PM CDT Nick Veliz MD LAB BLOOD ORDERABLES Fin al Result [facility] Department [place] [address] * Lactate, whole blood (08/02/2024 3:30 PM CDT) Pathologist [facility] Lactate, bld 1.1 0.7 - 2.0 mmol/L Blood 08/02/2024 3:30 PM CDT 08/02/2024 3:34 PM CDT Hectorivan Ibanez RADIOLOGICAL HEALTH SPECIALIST LAB BLOOD ORDERABLES Final Resul t Performing Organization Address [facility] de Phone Number [facility] [place] [place] [address] * (ABNORMAL) aPTT (08/02/2024 3:30 PM CDT) aPTT 26(L) 28 - 38 sec Comment: Interpretive Data Heparin therapeutic range: 66.0 - 100.0 seconds. Range based on correlation with therapeutic heparin activity range of 0.3 - 0.7 Units/mL. Current interpretive data was last revised on 2023. Blood 08/02/2024 3:30 PM CDT 08/02/2024 3:34 PM CDT Marilee Sandoval RADIOLOGICAL HEALTH SPECIALIST LAB BLOOD ORDERABLES Fin al Result Performing Organization Address [facility] de Phone Number [facility] [place] [place] [address] * (ABNORMAL) Protime-INR (08/02/2024 3:30 PM CDT) PT 17.3(H) 9.7 - 13.0 sec INR 1.59(H) 0.90 - 1.20 [facility] Comment: Interpretive data Oral anticoagulant therapeutic ranges: Venous thromboembolism prophylaxis or treatment: 2.0-3.0 CARDIOLOGY Standard range: 2.0-3.0 High-intensity range: 2.5-3.5 Refer to indication-specific guidelines for appropriate target ranges for prosthetic heart valve replacement. Current interpretive data was last revised on 2019. Blood 08/02/2024 3:30 PM CDT 08/02/2024 3:34 PM CDT Marilee Sandoval RADIOLOGICAL HEALTH SPECIALIST LAB BLOOD ORDERABLES Fin al Result Performing Organization Address [facility] de Phone Number [facility] Department [place] [address] * (ABNORMAL) CBC without differential (08/02/2024 3:30 PM CDT) WBC 9.51 3.80 - 9.90 K/cumm Hgb 8.4(L) 13.0 - 17.5 g/dL [facility] Hct 24.9(L) 38.9 - 50.3 % [facility] Plt 72(L) 150 - 400 K/cumm [facility] MPV 11.5 9.1 - 12.3 fL [facility] RBC 2.50(L) 4.30 - 5.80 M/cumm [facility] MCV 99.6(H) 81.3 - 96.4 fL [facility] MCH 33.6(H) 27.1 - 33.3 pg [facility] MCHC 33.7 32.3 - 35.7 g/dL [facility] RDW CV 15.5(H) 11.1 - 14.9 % [facility] RDW SD 56.6(H) 35.7 - 48.1 fL [facility] NRBC abs 0.00 0.00 - 0.01 K/cumm [facility] Blood 08/02/2024 3:30 PM CDT 08/02/2024 3:40 PM CDT Codi Ibanez RADIOLOGICAL HEALTH SPECIALIST LAB BLOOD ORDERABLES Final Resul t [facility] [place] [address] * Type and screen (08/02/2024 3:30 PM CDT) Pathologist [facility] Kumar, indirect Negative ABO Rh A Positive [facility] Blood 08/02/2024 3:30 PM CDT 08/02/2024 3:39 PM CDT Narrative [facility] - 08/02/2024 4:31 PM CDT Has the patient had Daratumumab or Isatuximab in the past 6 months?->Unknown Nick Veliz MD LAB BLOOD BANK TEST ORDChet MAYES Final Result Performing Organization Address [facility] Co de Phone Number [facility] Department [place] [address] * (ABNORMAL) Blood gas, arterial (08/02/2024 3:30 PM CDT) Pathologist [facility] pH, Art 7.47(H) 7.35 - 7.45 PCO2, Arterial 33(L) 35 - 45 mmHg [facility] PO2, Arterial 142(H) 83 - 108 mmHg [facility] HCO3 Art (Calculated) 24 20 - 30 mmol/L [facility] BE, art 0 mmol/L [facility] Comment: Interpretive Data No Reference Range Established Current Interpretive Data was last revised on 2017 O2 Sat Art (Measured) 100(H) 90 - 95 % [facility] Blood 08/02/2024 3:30 PM CDT 08/02/2024 3:34 PM CDT Selvin Domínguez NP LAB BLOOD ORDERABLES Teetee l Result Performing Organization Address [facility] Co de Phone Number [facility] [place] [address] * Basic metabolic panel (08/02/2024 3:30 PM CDT) Pathologist [facility] Sodium 139 135 - 145 mmol/L Potassium, pl 3.8 3.3 - 4.9 mmol/L [facility] Chloride 104 97 - 110 mmol/L [facility] CO2 26 22 - 32 mmol/L [facility] Anion gap 9 2 - 15 mmol/L [facility] BUN 25 6 - 25 mg/dL [facility] Creatinine 1.03 0.80 - 1.30 mg/dL [facility] Glucose 166 70 - 199 mg/dL [facility] Comment: Interpretive Data Fasting glucose >/= [...] interpretive data was last revised 2022. Calcium 9.1 8.5 - 10.3 mg/dL [facility] Blood 08/02/2024 3:30 PM CDT 08/02/2024 3:40 PM CDT Marilee Sandoval NP LAB BLOOD ORDERABLES Fin al Result [facility] [place] [address] * POCT glucose (08/02/2024 3:24 PM CDT) [facility] Signature Glucose, POC 173 70 - 199 mg/dL Blood 08/02/2024 3:24 PM CDT 08/02/2024 3:24 PM CDT Nick Veliz MD LAB POCT ORDERABLES - DE VICE Final Result Performing Organization Address City/[facility] Co de Phone Number [facility] [place] [address] * TRANSTHORACIC ECHO (TTE) LIMITED/FOLLOW UP W LTD DOPPLER/CF W CONTRAST (08/02/2024 2:23 PM CDT) Anatomical Region Laterality Modality Ultrasound 08/02/2024 1:59 PM CDT Narrative 08/02/2024 4:22 PM CDT [facility] [place] [address] Transthoracic Echocardiographic Report Patient Name: SHEY SHAHJaclyn : 1950 (73y 11m) Gender: M Study Date: 08/02/2024 01:59:15 PM Ht(Inch): 73 Wt(Lb): 216.05 BSA: 2.25 Jacquard Loom Weaver: REBECCA Diane Location: [id number] Order Provider: JORDY KAMARA Heart Rate: 90 BMI: 28.5 BP: 103 / 59 Ref Provider: JORDY KAMARA PROCEDURES: Echocardiographic Report: Limited transthoracic 2D echo with contrast, includes spectral and tissue Doppler, color flow Doppler, and/or M-mode, when performed. Contrast: Contrast Enhancement was Employed: After initial imaging due to sub- optimal quality related to co-morbidity defined by patient's body habitus and due to suboptimal image quality with inadequate visualization of at least 2 of 16 LV wall segments in any view after initial imaging. Perflutren contrast was administered using the volume necessary to obtain adequate images. 0.8 ml Optison Administered, (2.2 ml wasted). INDICATIONS: Heart Failure. CONCLUSIONS: 1. On Impella (P5 @ 3 LPM) support. Turn down study. Normal left ventricular size based on volume index. Concentric LV remodeling. Mildly depressed left ventricular systolic function. The Ejection Fraction (Johnson's) is measured at 49 %. 2. Normal right ventricular size. Normal right ventricular systolic function. 3. Status post mitral valve repair with annuloplasty ring. 4. A bioprosthetic valve is present in the aortic position. 5. Tip of the Impella device in in mid-LV cavity about 4.5 cm from the AV. On turn down, the LVEF remained unchanged. COMPARISONS: No previous study available for comparison. ATTESTATION: I have personally reviewed and interpreted this study without fellow or resident. - DISCLAIMER: The study images and the final report will be retained in the patient chart by the Echo Laboratory for the legally required time period. This chart constitutes the legal record of any testing performed. FINDINGS: Mechanical Circulatory Support Devices: Temporary Left Ventricular Assist Device: Impella 5.5 @ p 3 lpm Left Ventricle: Normal left ventricular size based on volume index. Concentric LV remodeling. Mildly depressed left ventricular systolic function. The Ejection Fraction (Johnson's) is measured at 49 %. Right Ventricle: Normal right ventricular size. Normal right ventricular systolic function. Left Atrium: Mildly dilated left atrium. Right Atrium: The right atrium is normal in size. Wire seen in RV/RA. Mitral Valve: Specific MV Structure Abnormalities: Status post mitral valve repair with annuloplasty ring. Aortic Valve: A bioprosthetic valve is present in the aortic position. Tricuspid Valve: Normal tricuspid valve structure. No tricuspid regurgitation. Pulmonic Valve: Normal pulmonic valve structure. No pulmonic regurgitation. Pericardium: No pericardial effusion. Aorta: Aorta not well visualized due to limited study. MEASUREMENTS: 2D/MM Value Range Doppler Value Range LVIDd 2D 4.80 cm [ 4.20 - 5.80 ] RV S` 8.42 cm/sec LVIDs 2D 3.79 cm [ 2.50 - 4.00 ] IVSd 2D 1.00 cm [ 0.60 - 1.00 ] LVPWd 2D 1.04 cm [ 0.60 - 1.00 ] LV Thickness Ratio 1.0 LV FS 2D 21.10 % [ 25.00 - 43.00 ] LV Mass 2D 178.38 g LV Mass Index 2D 79.28 g/m2 RWT 0.43 EDV Mod BP 124.80 ml [ 62.00 - 150.00 ] LV EDV Index 55.47 ml/m2 ESV Mod BP 63.15 ml [ 21.00 - 61.00 ] EF Mod BP 49 % [ 52 - 72 ] TAPSE 1.44 cm [ 1.71 - 5.00 ] Electronically Signed By: Cecilia Hair M.D. 08/02/2024 4:21:30 PM CDT Procedure Note Cecilia Hair MD - 08/02/2024 [facility] [place] [address] Transthoracic Echocardiographic Report Patient Name: SHEY SHAH C : 1950 (73y 11m) Gender: M Study Date: 08/02/2024 01:59:15 PM Ht(Inch): 73 Wt(Lb): 216.05 BSA: 2.25 Jacquard Loom Weaver: REBECCA Diane Location: [id number] Order Provider:JORDY KAMARA Heart Rate: 90 BMI: 28.5 BP: 103 / 59 Ref Provider: JORDY KAMARA PROCEDURES: Echocardiographic Report: Limited transthoracic 2D echo with contrast,includes spectral and tissue Doppler, color flow Doppler, and/or M-mode, when performed. Contrast: Contrast Enhancement was Employed: After initial imaging due tosub- optimal quality related to co-morbidity defined by patient's body habitus and dueto suboptimal image quality with inadequate visualization of at least 2 of 16 LV wallsegments in any view after initial imaging. Perflutren contrast was administered using thevolume necessary to obtain adequate images. 0.8 ml Optison Administered, (2.2 mlwasted). INDICATIONS: Heart Failure. CONCLUSIONS: 1. On Impella (P5 @ 3 LPM) support. Turn down study. Normal leftventricular size based on volume index. Concentric LV remodeling. Mildly depressed leftventricular systolic function. The Ejection Fraction (Johnson's) is measured at 49 %. 2. Normal right ventricular size. Normal right ventricular systolicfunction. 3. Status post mitral valve repair with annuloplasty ring. 4. A bioprosthetic valve is present in the aortic position. 5. Tip of the Impella device in in mid-LV cavity about 4.5 cm from the AV.On turn down, the LVEF remained unchanged. COMPARISONS: No previous study available for comparison. ATTESTATION: I have personally reviewed and interpreted this study without fellow orresident. - DISCLAIMER: The study images and the final report will be retained in the patientchart by the Echo Laboratory for the legally required time period. This chart constitutesthe legal record of any testing performed. FINDINGS: Mechanical Circulatory Support Devices: Temporary Left Ventricular Assist Device: Impella 5.5 @ p 3 lpm Left Ventricle: Normal left ventricular size based on volume index.Concentric LV remodeling. Mildly depressed left ventricular systolic function. TheEjection Fraction (Johnson's) is measured at 49 %. Right Ventricle: Normal right ventricular size. Normal right ventricularsystolic function. Left Atrium: Mildly dilated left atrium. Right Atrium: The right atrium is normal in size. Wire seen in RV/RA. Mitral Valve: Specific MV Structure Abnormalities: Status post mitralvalve repair with annuloplasty ring. Aortic Valve: A bioprosthetic valve is present in the aortic position. Tricuspid Valve: Normal tricuspid valve structure. No tricuspidregurgitation. Pulmonic Valve: Normal pulmonic valve structure. No pulmonicregurgitation. Pericardium: No pericardial effusion. Aorta: Aorta not well visualized due to limited study. MEASUREMENTS: 2D/MM Value Range Doppler ValueRange LVIDd 2D 4.80 cm [ 4.20 - 5.80 ] RV S` 8.42cm/sec LVIDs 2D 3.79 cm [ 2.50 - 4.00 ] IVSd 2D 1.00 cm [ 0.60 - 1.00 ] LVPWd 2D 1.04 cm [ 0.60 - 1.00 ] LV Thickness Ratio 1.0 LV FS 2D 21.10 % [ 25.00 - 43.00 ] LV Mass 2D 178.38g LV Mass Index 2D 79.28g/m2 RWT 0.43 EDV Mod BP 124.80 ml [ 62.00 - 150.00 ] LV EDV Index 55.47 ml/m2 ESV Mod BP 63.15 ml [ 21.00 - 61.00 ] EF Mod BP 49 % [ 52 - 72 ] TAPSE 1.44 cm [ 1.71 - 5.00 ] Electronically Signed By: Cecilia Hair M.D. 08/02/2024 4:21:30 PM CDT us Jordy Kamara DNP CV ECHO PROCEDURES Te[facility] Result * Oxyhemoglobin, pulmonary artery (08/02/2024 8:43 AM CDT) Oxyhemoglobin, PA 48.8 % Comment: Interpretive Data No reference range established. Current interpretive data was last revised 2019. Blood 08/02/2024 8:43 AM CDT 08/02/2024 8:44 AM CDT us Selvin Domínguez RADIOLOGICAL HEALTH SPECIALIST LAB BLOOD ORDERABLES Teetee l Result [facility] Department [place] [address] * (ABNORMAL) Hemoglobin total, pulmonary artery (08/02/2024 8:43 AM CDT) Hemoglobin total, PA 8.9(L) 13.0 - 17.5 g/dL Blood 08/02/2024 8:43 AM CDT 08/02/2024 8:44 AM CDT us Arabella Gary RADIOLOGICAL HEALTH SPECIALIST LAB BLOOD ORDERABLES Fi nal Result [facility] [place] [address] * Lactate (08/02/2024 8:43 AM CDT) Lactate 1.3 0.7 - 2.0 mmol/L Blood 08/02/2024 8:43 AM CDT 08/02/2024 8:44 AM CDT Selvin Domínguez RADIOLOGICAL HEALTH SPECIALIST LAB BLOOD ORDERABLES Teetee l Result Performing Organization Address [facility] Co de Phone Number [facility] [place] [address] * Calcium, ionized (08/02/2024 8:43 AM CDT) Pathologist [facility] Calcium, Ionized 4.92 4.50 - 5.10 mg/dL Blood 08/02/2024 8:43 AM CDT 08/02/2024 8:44 AM CDT Nick Veliz MD LAB BLOOD ORDERABLES Fin al Result Performing Organization Address [facility] de Phone Number [facility] [place] [address] * (ABNORMAL) Blood gas, arterial (08/02/2024 8:43 AM CDT) pH, Art 7.47(H) 7.35 - 7.45 PCO2, Arterial 30(L) 35 - 45 mmHg [facility] PO2, Arterial 93 83 - 108 mmHg [facility] HCO3 Art (Calculated) 22 20 - 30 mmol/L [facility] BE, art -2 mmol/L [facility] Comment: Interpretive Data No Reference Range Established Current Interpretive Data was last revised on 2017 O2 Sat Art (Measured) 98(H) 90 - 95 % [facility] Blood 08/02/2024 8:43 AM CDT 08/02/2024 8:44 AM CDT Selvin Domínguez NP LAB BLOOD ORDERABLES Teetee l Result Performing Organization Address City/[facility]/ZIP Co de Phone Number [facility] Department [place] [address] * POCT glucose (08/02/2024 8:32 AM CDT) Glucose, POC 131 70 - 199 mg/dL Blood 08/02/2024 8:32 AM CDT 08/02/2024 8:32 AM CDT us Nick Veliz MD LAB POCT ORDERABLES - DE VICE Final Result Performing Organization Address [facility] Co de Phone Number [facility] [place] [address] * Critical Care (08/02/2024 6:55 AM CDT) Narrative Malu Whatley MD - 08/02/2024 6:55 AM CDT Malu Whatley MD 08/02/2024 1:41 PM Critical Care Performed by: Codi Ibanez NP Authorized by: Codi Ibanez NP CRITICAL CARE: Team: 56 CTICU Shift: AM Level of Billing: Critical Care My time spent with this patient was 70 minutes: Critical Provider Statement: I have seen and examined the patient on this day of service. I have reviewed and confirmed the history, physical exam, laboratory and radiologic data as documented in the signed ICU note. I have reviewed and discussed my treatment plan with the ICU team and other medical/production consultant staff, making frequent assessments and decisions regarding this patient's complex medical care. Critical Care time was exclusive of time spent performing separately billed procedures, treating other patients, and teaching. This time was in addition to and separate from critical care provided by other practitioners in my group on this day of service. Critical Care was necessary to treat or prevent imminent or life-threatening deterioration of the following conditions: I spent time reviewing and interpreting data from bedside monitors, laboratory results, and imaging, I spent time discussing the management of this critically ill patient with consultants and the medical staff and I spent time documenting in the medical record us Thoa Ibanez RADIOLOGICAL HEALTH SPECIALIST IN CLINIC/BEDSIDE ORDERABLES Fin al Result * Oxyhemoglobin, pulmonary artery (08/02/2024 4:06 AM CDT) Oxyhemoglobin, PA 54.3 % Comment: Interpretive Data No reference range established. Current interpretive data was last revised 2019. Blood 08/02/2024 4:06 AM CDT 08/02/2024 4:10 AM CDT Selvin Domínguez RADIOLOGICAL HEALTH SPECIALIST LAB BLOOD ORDERABLES Teetee l Result [facility] Department [place] [address] * (ABNORMAL) Hemoglobin total, pulmonary artery (08/02/2024 4:06 AM CDT) Hemoglobin total, PA 8.5(L) 13.0 - 17.5 g/dL Blood 08/02/2024 4:06 AM CDT 08/02/2024 4:10 AM CDT Result [facility] Arabella Gary RADIOLOGICAL HEALTH SPECIALIST LAB BLOOD ORDERABLES Fi nal Result [facility] [place] [address] * (ABNORMAL) Blood gas, arterial (08/02/2024 4:06 AM CDT) pH, Art 7.48(H) 7.35 - 7.45 PCO2, Arterial 31(L) 35 - 45 mmHg [facility] PO2, Arterial 97 83 - 108 mmHg [facility] HCO3 Art (Calculated) 23 20 - 30 mmol/L [facility] BE, art 0 mmol/L [facility] Comment: Interpretive Data No Reference Range Established Current Interpretive Data was last revised on 2017 O2 Sat Art (Measured) 98(H) 90 - 95 % [facility] Blood 08/02/2024 4:06 AM CDT 08/02/2024 4:10 AM CDT us Selvin Domínguez RADIOLOGICAL HEALTH SPECIALIST LAB BLOOD ORDERABLES Teetee l Result Performing Organization Address [facility] Co de Phone Number [facility] [place] [address] * POCT glucose (08/02/2024 4:04 AM CDT) Pathologist [facility] Glucose, POC 142 70 - 199 mg/dL Blood 08/02/2024 4:04 AM CDT 08/02/2024 4:04 AM CDT Nick Veliz MD LAB POCT ORDERABLES - DE VICE Final Result Performing Organization Address [facility] Co de Phone Number [facility] [place] [address] * Lactate (08/02/2024 12:47 AM CDT) [facility] Lactate 1.0 0.7 - 2.0 mmol/L Blood 08/02/2024 12:4 7 AM CDT 08/02/2024 12:57 AM CDT Marilee Sandoval RADIOLOGICAL HEALTH SPECIALIST LAB BLOOD ORDERABLES Fin al Result Performing Organization Address [facility] Co de Phone Number [facility] [place] [address] * eGFR (08/02/2024 12:47 AM CDT) eGFR 78 >=60 mL/min/1. 73 m2 Comment: Interpretive Data [...] interpretive data was last reviewed 2021. Blood 08/02/2024 12:4 7 AM CDT 08/02/2024 12:56 AM CDT Marilee Sandoval NP LAB BLOOD ORDERABLES Fin al Result [facility] Department [place] [address] * Heparin anti factor Xa activity (08/02/2024 12:47 AM CDT) Anti Factor Xa <0.10 IUnits/mL Comment: Interpretive Data Enoxaparin therapeutic range (peak): VTE treatment, Q12hr dosin.60-1.00 IUnits/mL VTE treatment, Q24hr dosin.00-2.00 IUnits/mL Q24hr dosing for renal impairment (CrCl <30 mL/min): 0.60-1.00 IUnits/mL VTE prevention: 0.10-0.40 IUnits/mL - Anti-Xa therapeutic ranges apply to blood samples drawn 4 hours after last dose (peak). - Unfractionated heparin (UFH) therapeutic range: 0.30-0.70 IUnits/mL - Direct factor Xa inhibitors (rivaroxaban, apixaban): Results must be interpreted qualitatively. No activity detected suggests little anticoagulant activity. - In severe antithrombin deficiency, anti-Xa measurement may be inaccurate. - Interpretive guidelines developed in adult populations. Interpretive guidelines for pediatric patients have not been rigorously defined. - Current interpretive data was last revised on 2018. Blood 08/02/2024 12:4 7 AM CDT 08/02/2024 12:49 AM CDT Marilee Sandoval RADIOLOGICAL HEALTH SPECIALIST LAB BLOOD ORDERABLES Fin al Result Performing Organization Address [facility] [place] [address] * aPTT (08/02/2024 12:47 AM CDT) aPTT 30 28 - 38 sec Comment: Interpretive Data Heparin therapeutic range: 66.0 - 100.0 seconds. Range based on correlation with therapeutic heparin activity range of 0.3 - 0.7 Units/mL. Current interpretive data was last revised on 2023. Blood 08/02/2024 12:4 7 AM CDT 08/02/2024 12:48 AM CDT Marilee Sandoval RADIOLOGICAL HEALTH SPECIALIST LAB BLOOD ORDERABLES Fin al Result Performing Organization Address [facility] [place] [address] * (ABNORMAL) Protime-INR (08/02/2024 12:47 AM CDT) PT 15.2(H) 9.7 - 13.0 sec INR 1.40(H) 0.90 - 1.20 [facility] Comment: Interpretive data Oral anticoagulant therapeutic ranges: Venous thromboembolism prophylaxis or treatment: 2.0-3.0 CARDIOLOGY Standard range: 2.0-3.0 High-intensity range: 2.5-3.5 Refer to indication-specific guidelines for appropriate target ranges for prosthetic heart valve replacement. Current interpretive data was last revised on 2019. Blood 08/02/2024 12:4 7 AM CDT 08/02/2024 12:48 AM CDT Marilee Sandoval RADIOLOGICAL HEALTH SPECIALIST LAB BLOOD ORDERABLES Fin al Result Performing Organization Address [facility] Co de Phone Number [facility] [place] [place] [address] * (ABNORMAL) Fibrinogen (08/02/2024 12:47 AM CDT) Fibrinogen 487(H) 170 - 400 mg/dL Blood 08/02/2024 12:4 7 AM CDT 08/02/2024 12:48 AM CDT Nick Veliz MD LAB BLOOD ORDERABLES Fin al Result Performing Organization Address [facility] [place] [address] * Phosphorus (08/02/2024 12:47 AM CDT) Phosphorus, pl 3.6 2.3 - 4.5 mg/dL Blood 08/02/2024 12:4 7 AM CDT 08/02/2024 12:56 AM CDT Selvin Domínguez RADIOLOGICAL HEALTH SPECIALIST LAB BLOOD ORDERABLES Teetee l Result Performing Organization Address [facility] de Phone Number [facility] Department [place] [address] * Magnesium (08/02/2024 12:47 AM CDT) Magnesium 2.1 1.4 - 2.5 mg/dL Blood 08/02/2024 12:4 7 AM CDT 08/02/2024 12:56 AM CDT Selvin Domínguez RADIOLOGICAL HEALTH SPECIALIST LAB BLOOD ORDERABLES Teetee l Result Performing Organization Address City/[facility] Co de Phone Number [facility] Department [place] [address] * (ABNORMAL) Lactate dehydrogenase (LD) (08/02/2024 12:47 AM CDT) Pathologist [facility] Lactate dehydrogenase (LDH) 410(H) 100 - 250 Units/L Blood 08/02/2024 12:4 7 AM CDT 08/02/2024 12:56 AM CDT Marilee Sandoval NP LAB BLOOD ORDERABLES Fin al Result Performing Organization Address City/[facility] Co de Phone Number [facility] [place] [address] * Creatine kinase (CK), total (08/02/2024 12:47 AM CDT) [facility] CK 164 40 - 300 Units/L Blood 08/02/2024 12:4 7 AM CDT 08/02/2024 12:56 AM CDT Nick Veliz MD LAB BLOOD ORDERABLES Fin al Result Performing Organization Address [facility] Co de Phone Number [facility] [place] [address] * (ABNORMAL) Hepatic function panel (08/02/2024 12:47 AM CDT) Pathologist [facility] Bilirubin, total 1.1 0.1 - 1.2 mg/dL Bilirubin, direct 0.5(H) 0.1 - 0.3 mg/dL [facility] Protein, pl 5.9(L) 6.5 - 8.5 g/dL [facility] Albumin 3.5 3.5 - 5.0 g/dL [facility] Alk phos 50 40 - 130 Units/L [facility] ALT 10 7 - 55 Units/L [facility] AST 44 10 - 50 Units/L [facility] Blood 08/02/2024 12:4 7 AM CDT 08/02/2024 12:56 AM CDT Marilee Sandoval RADIOLOGICAL HEALTH SPECIALIST LAB BLOOD ORDERABLES Fin al Result Performing Organization Address City/[facility]/ZIP Co de Phone Number [facility] [place] [address] * Basic metabolic panel (08/02/2024 12:47 AM CDT) [facility] Sodium 140 135 - 145 mmol/L Potassium, pl 4.4 3.3 - 4.9 mmol/L [facility] Chloride 106 97 - 110 mmol/L [facility] CO2 24 22 - 32 mmol/L [facility] Anion gap 10 2 - 15 mmol/L [facility] BUN 23 6 - 25 mg/dL [facility] Creatinine 1.02 0.80 - 1.30 mg/dL [facility] Glucose 141 70 - 199 mg/dL [facility] Comment: Interpretive Data Fasting glucose >/= [...] 2022. Calcium 8.8 8.5 - 10.3 mg/dL [facility] Blood 08/02/2024 12:4 7 AM CDT 08/02/2024 12:56 AM CDT Marilee Sandoval RADIOLOGICAL HEALTH SPECIALIST LAB BLOOD ORDERABLES Fin al Result Performing Organization Address City/[facility]/ZIP Co de Phone Number [facility] [place] [address] * Oxyhemoglobin, central venous (08/02/2024 12:23 AM CDT) Oxyhemoglobin, CV 67.9 % Comment: Interpretive Data No reference range established. Current interpretive data was last revised 2019. Blood 08/02/2024 12:2 3 AM CDT 08/02/2024 12:45 AM CDT Marilee Sandoval RADIOLOGICAL HEALTH SPECIALIST LAB BLOOD ORDERABLES Fin al Result Performing Organization Address [facility] Co de Phone Number [facility] [place] [address] * Oxyhemoglobin, pulmonary artery (08/02/2024 12:23 AM CDT) Pathologist [facility] Oxyhemoglobin, PA 60.7 % Comment: Interpretive Data No reference range established. Current interpretive data was last revised 2019. Blood 08/02/2024 12:2 3 AM CDT 08/02/2024 12:45 AM CDT Marilee Sandoval RADIOLOGICAL HEALTH SPECIALIST LAB BLOOD ORDERABLES Fin al Result Performing Organization Address [facility] de Phone Number [facility] [place] [place] [address] * Hemoglobin, plasma (08/02/2024 12:23 AM CDT) Hemoglobin, Plasma <30 <=50 mg/dL Blood 08/02/2024 12:2 3 AM CDT 08/02/2024 12:45 AM CDT Marilee Sandoval RADIOLOGICAL HEALTH SPECIALIST LAB BLOOD ORDERABLES Fin al Result Performing Organization Address [facility] [place] [address] * Lactate, whole blood (08/02/2024 12:23 AM CDT) Lactate, bld 0.8 0.7 - 2.0 mmol/L Blood 08/02/2024 12:2 3 AM CDT 08/02/2024 12:45 AM CDT Marilee Sandoval RADIOLOGICAL HEALTH SPECIALIST LAB BLOOD ORDERABLES Fin al Result Performing Organization Address [facility] de Phone Number [facility] [place] [address] * (ABNORMAL) CBC without differential (08/02/2024 12:23 AM CDT) WBC 10.76(H) 3.80 - 9.90 K/cumm Hgb 8.4(L) 13.0 - 17.5 g/dL [facility] Hct 24.5(L) 38.9 - 50.3 % [facility] Plt 72(L) 150 - 400 K/cumm [facility] MPV 11.8 9.1 - 12.3 fL [facility] RBC 2.47(L) 4.30 - 5.80 M/cumm [facility] MCV 99.2(H) 81.3 - 96.4 fL [facility] MCH 34.0(H) 27.1 - 33.3 pg [facility] MCHC 34.3 32.3 - 35.7 g/dL [facility] RDW CV 16.1(H) 11.1 - 14.9 % [facility] RDW SD 59.5(H) 35.7 - 48.1 fL [facility] NRBC abs 0.00 0.00 - 0.01 K/cumm [facility] Blood 08/02/2024 12:2 3 AM CDT 08/02/2024 12:44 AM CDT Marilee Sandoval RADIOLOGICAL HEALTH SPECIALIST LAB BLOOD ORDERABLES Fin al Result Performing Organization Address [facility] Co de Phone Number [facility] [place] [address] * (ABNORMAL) Blood gas, arterial (08/02/2024 12:23 AM CDT) pH, Art 7.43 7.35 - 7.45 PCO2, Arterial 34(L) 35 - 45 mmHg [facility] PO2, Arterial 92 83 - 108 mmHg [facility] HCO3 Art (Calculated) 23 20 - 30 mmol/L [facility] BE, art -2 mmol/L [facility] Comment: Interpretive Data No Reference Range Established Current Interpretive Data was last revised on 2017 O2 Sat Art (Measured) 98(H) 90 - 95 % [facility] Blood 08/02/2024 12:2 3 AM CDT 08/02/2024 12:45 AM CDT Selvin Domínguez NP LAB BLOOD ORDERABLES Teetee keith Result [facility] [place] [address] * XR Chest 1 View - in PM (08/01/2024 9:27 PM CDT) Anatomical Region Laterality Modality Body, Chest N/A Digital Radiogra phy 08/02/2024 7:33 AM CDT Impressions 08/02/2024 8:42 AM CDT The current study is compared with the prior radiograph dated 07/31/2024 Patient has been extubated. Gastric tube has been removed. An Impella device is in place. Right internal jugular approach Clyde-Clair catheter overlies the right main pulmonary artery, slightly advanced from the prior examination. Left atrial appendage clip is noted. Bilateral chest tubes are present. A mediastinal and a pericardial drain are not well depicted. No significant change in aeration with persistent right basilar atelectasis and partial left lower lobe collapse with small bilateral pleural effusions. Mild pulmonary edema. No pneumothorax. Cardiac and mediastinal contours are stable. Dictated by: Gabriel Singh MD The radiology attending physician has personally reviewed this study, and had reviewed and/or edited this written report and agrees with it. Electronically signed by: Edson Sepulveda M.D. Narrative 08/02/2024 8:42 AM CDT EXAMINATION: 1 view chest radiograph Procedure Note Edson Sepulveda MD - 08/02/2024 EXAMINATION: 1 view chest radiograph IMPRESSION: The current study is compared with the prior radiograph dated 07/31/2024 Patient has been extubated. Gastric tube has been removed. An Impella device is in place. Right internal jugular approach Clyde-Clair catheter overlies the right main pulmonary artery, slightly advanced from the prior examination. Left atrial appendage clip is noted. Bilateral chest tubes are present. A mediastinal and a pericardial drain are not well depicted. No significant change in aeration with persistent right basilar atelectasis and partial left lower lobe collapse with small bilateral pleural effusions. Mild pulmonary edema. No pneumothorax. Cardiac and mediastinal contours are stable. Dictated by: Gabriel Singh MD The radiology attending physician has personally reviewed this study, and had reviewed and/or edited this written report and agrees with it. Electronically signed by: Edson Sepulveda M.D. us Marilee Sandoval RADIOLOGICAL HEALTH SPECIALIST IMG XR PROCEDURES Final Result * Oxyhemoglobin, pulmonary artery (08/01/2024 8:34 PM CDT) Oxyhemoglobin, PA 56.5 % Comment: Interpretive Data No reference range established. Current interpretive data was last revised 2019. Blood 08/01/2024 8:34 PM CDT 08/01/2024 8:38 PM CDT us Selvin Domínguez RADIOLOGICAL HEALTH SPECIALIST LAB BLOOD ORDERABLES Teetee l Result [facility] [place] [address] * (ABNORMAL) Hemoglobin total, pulmonary artery (08/01/2024 8:34 PM CDT) Hemoglobin total, PA 8.5(L) 13.0 - 17.5 g/dL Blood 08/01/2024 8:34 PM CDT 08/01/2024 8:38 PM CDT Arabella Gary NP LAB BLOOD ORDERABLES Fi nal Result Performing Organization Address City/[facility] Co de Phone Number [facility] [place] [address] * Potassium, whole blood (08/01/2024 8:34 PM CDT) Pathologist [facility] Potassium, bld 3.8 3.3 - 4.9 mmol/L Blood 08/01/2024 8:34 PM CDT 08/01/2024 8:38 PM CDT Arabella Gary NP LAB BLOOD ORDERABLES Fi nal Result Performing Organization Address [facility] Co de Phone Number [facility] [place] [address] * (ABNORMAL) Blood gas, arterial (08/01/2024 8:34 PM CDT) Pathologist [facility] pH, Art 7.46(H) 7.35 - 7.45 PCO2, Arterial 31(L) 35 - 45 mmHg [facility] PO2, Arterial 111(H) 83 - 108 mmHg [facility] HCO3 Art (Calculated) 23 20 - 30 mmol/L [facility] BE, art -1 mmol/L [facility] Comment: Interpretive Data No Reference Range Established Current Interpretive Data was last revised on 2017 O2 Sat Art (Measured) 99(H) 90 - 95 % [facility] Blood 08/01/2024 8:34 PM CDT 08/01/2024 8:38 PM CDT Selvin Domínguez RADIOLOGICAL HEALTH SPECIALIST LAB BLOOD ORDERABLES Teetee l Result Performing Organization Address [facility] Co de Phone Number [facility] [place] [place] [address] * POCT glucose (08/01/2024 8:33 PM CDT) Glucose, POC 133 70 - 199 mg/dL Blood 08/01/2024 8:33 PM CDT 08/01/2024 8:33 PM CDT us Nick Veliz MD LAB POCT ORDERABLES - DE VICE Final Result [facility] [place] [address] * Critical Care (08/01/2024 7:18 PM CDT) Narrative Malu Whatley MD - 08/01/2024 7:18 PM CDT Malu Whatley MD 08/02/2024 10:37 AM Critical Care Performed by: Mt Julien NP Authorized by: Mt Julien NP CRITICAL CARE: Team: 56 CTICU Shift: PM Level of Billing: Critical Care My time spent with this patient was 80 minutes: Critical Provider Statement: I have seen and examined the patient on this day of service. I have reviewed and confirmed the history, physical exam, laboratory and radiologic data as documented in the signed ICU note. I have reviewed and discussed my treatment plan with the ICU team and other medical/production consultant staff, making frequent assessments and decisions regarding this patient's complex medical care. Critical Care time was exclusive of time spent performing separately billed procedures, treating other patients, and teaching. This time was in addition to and separate from critical care provided by other practitioners in my group on this day of service. Critical Care was necessary to treat or prevent imminent or life-threatening deterioration of the following conditions: I spent time reviewing and interpreting data from bedside monitors, laboratory results, and imaging, I spent time discussing the management of this critically ill patient with consultants and the medical staff and I spent time documenting in the medical record us Mt Julien NP IN CLINIC/BEDSIDE ORDERABLES F inal Result * Oxyhemoglobin, pulmonary artery (08/01/2024 3:34 PM CDT) Pathologist [facility] Oxyhemoglobin, PA 67.6 % Comment: Interpretive Data No reference range established. Current interpretive data was last revised 2019. Blood 08/01/2024 3:34 PM CDT 08/01/2024 3:39 PM CDT us Selvin Domínguez RADIOLOGICAL HEALTH SPECIALIST LAB BLOOD ORDERABLES Teetee l Result Performing Organization Address City/[facility] Co de Phone Number [facility] [place], [place] [address] * (ABNORMAL) Hemoglobin total, pulmonary artery (08/01/2024 3:34 PM CDT) [facility] Hemoglobin total, PA 8.6(L) 13.0 - 17.5 g/dL Blood 08/01/2024 3:34 PM CDT 08/01/2024 3:39 PM CDT us Arabella Gary RADIOLOGICAL HEALTH SPECIALIST LAB BLOOD ORDERABLES Fi nal Result Performing Organization Address [facility] Co de Phone Number [facility] Department of Laboratories [place], [place] [id number] * Potassium, whole blood (08/01/2024 3:34 PM CDT) [facility] Potassium, bld 3.8 3.3 - 4.9 mmol/L Blood 08/01/2024 3:34 PM CDT 08/01/2024 3:38 PM CDT Arabella Gary RADIOLOGICAL HEALTH SPECIALIST LAB BLOOD ORDERABLES Fi nal Result Performing Organization Address [facility] Co de Phone Number [facility] [employer] [place], [place] [id number] * (ABNORMAL) Blood gas, arterial (08/01/2024 3:34 PM CDT) pH, Art 7.44 7.35 - 7.45 PCO2, Arterial 32(L) 35 - 45 mmHg [facility] PO2, Arterial 171(H) 83 - 108 mmHg [facility] HCO3 Art (Calculated) 23 20 - 30 mmol/L [facility] BE, art -2 mmol/L [facility] Comment: Interpretive Data No Reference Range Established Current Interpretive Data was last revised on 2017 O2 Sat Art (Measured) 100(H) 90 - 95 % [facility] Blood 08/01/2024 3:34 PM CDT 08/01/2024 3:38 PM CDT Selvin Domínguez NP LAB BLOOD ORDERABLES Teetee l Result Performing Organization Address [facility] Co de Phone Number [facility] [place] [address] * POCT glucose (08/01/2024 3:30 PM CDT) Glucose, POC 155 70 - 199 mg/dL Blood 08/01/2024 3:30 PM CDT 08/01/2024 3:30 PM CDT Nick Veliz MD LAB POCT ORDERABLES - DE VICE Final Result Performing Organization Address [facility] de Phone Number [facility] [place] [address] * Oxyhemoglobin, pulmonary artery (08/01/2024 11:50 AM CDT) Oxyhemoglobin, PA 80.0 % Comment: Interpretive Data No reference range established. Current interpretive data was last revised 2019. Blood 08/01/2024 11:5 0 AM CDT 08/01/2024 12:01 PM CDT Selvin Domínguez NP LAB BLOOD ORDERABLES Teetee l Result Performing Organization Address [facility] Co de Phone Number [facility] [place] [address] * (ABNORMAL) Hemoglobin total, pulmonary artery (08/01/2024 11:50 AM CDT) Hemoglobin total, PA 8.9(L) 13.0 - 17.5 g/dL Blood 08/01/2024 11:5 0 AM CDT 08/01/2024 12:01 PM CDT Arabella Gary NP LAB BLOOD ORDERABLES Fi nal Result Performing Organization Address [facility] Co de Phone Number [facility] [place] [address] * Potassium, whole blood (08/01/2024 11:50 AM CDT) Pathologist [facility] Potassium, bld 4.1 3.3 - 4.9 mmol/L Blood 08/01/2024 11:5 0 AM CDT 08/01/2024 12:01 PM CDT Arabella Gary NP LAB BLOOD ORDERABLES Fi nal Result Performing Organization Address City/[facility] Co de Phone Number [facility] [place] [address] * eGFR (08/01/2024 11:50 AM CDT) eGFR 63 >=60 mL/min/1. 73 m2 Comment: Interpretive Data [...] of Race in Diagnosing Kidney Disease, JASN 202). The CKD-EPI equation should not be used for patients with unstable renal function and has not been validated in children and those over 70. Current interpretive data was last reviewed 2021. Blood 08/01/2024 11:5 0 AM CDT 08/01/2024 12:09 PM CDT Marilee Sandoval NP LAB BLOOD ORDERABLES Fin al Result MARGI SANTA [facility] [place] [address] * Heparin anti factor Xa activity (08/01/2024 11:50 AM CDT) Anti Factor Xa <0.10 IUnits/mL Comment: Interpretive Data Enoxaparin therapeutic range (peak): VTE treatment, Q12hr dosin.60-1.00 IUnits/mL VTE treatment, Q24hr dosin.00-2.00 IUnits/mL Q24hr dosing for renal impairment (CrCl <30 mL/min): 0.60-1.00 IUnits/mL VTE prevention: 0.10-0.40 IUnits/mL - Anti-Xa therapeutic ranges apply to blood samples drawn 4 hours after last dose (peak). - Unfractionated heparin (UFH) therapeutic range: 0.30-0.70 IUnits/mL - Direct factor Xa inhibitors (rivaroxaban, apixaban): Results must be interpreted qualitatively. No activity detected suggests little anticoagulant activity. - In severe antithrombin deficiency, anti-Xa measurement may be inaccurate. - Interpretive guidelines developed in adult populations. Interpretive guidelines for pediatric patients have not been rigorously defined. - Current interpretive data was last revised on 2018. Blood 08/01/2024 11:5 0 AM CDT 08/01/2024 12:19 PM CDT Nick Veliz MD LAB BLOOD ORDERABLES Fin al Result Performing Organization Address [facility] de Phone Number [facility] [place] [address] * aPTT (08/01/2024 11:50 AM CDT) aPTT 29 28 - 38 sec Comment: Interpretive Data Heparin therapeutic range: 66.0 - 100.0 seconds. Range based on correlation with therapeutic heparin activity range of 0.3 - 0.7 Units/mL. Current interpretive data was last revised on 2023. Blood 08/01/2024 11:5 0 AM CDT 08/01/2024 12:03 PM CDT Marilee Sandoval NP LAB BLOOD ORDERABLES Fin al Result Performing Organization Address [facility] de Phone Number [facility] [place] [address] * (ABNORMAL) Protime-INR (08/01/2024 11:50 AM CDT) PT 14.3(H) 9.7 - 13.0 sec INR 1.32(H) 0.90 - 1.20 [facility] Comment: Interpretive data Oral anticoagulant therapeutic ranges: Venous thromboembolism prophylaxis or treatment: 2.0-3.0 CARDIOLOGY Standard range: 2.0-3.0 High-intensity range: 2.5-3.5 Refer to indication-specific guidelines for appropriate target ranges for prosthetic heart valve replacement. Current interpretive data was last revised on 2019. Blood 08/01/2024 11:5 0 AM CDT 08/01/2024 12:03 PM CDT Marilee Sandoval NP LAB BLOOD ORDERABLES Fin al Result Performing Organization Address [facility] de Phone Number [facility] Department [place] [address] * (ABNORMAL) CBC without differential (08/01/2024 11:50 AM CDT) [facility] WBC 14.50(H) 3.80 - 9.90 K/cumm Hgb 8.7(L) 13.0 - 17.5 g/dL [facility] Hct 25.7(L) 38.9 - 50.3 % [facility] Plt 86(L) 150 - 400 K/cumm [facility] MPV 11.9 9.1 - 12.3 fL [facility] RBC 2.58(L) 4.30 - 5.80 M/cumm [facility] MCV 99.6(H) 81.3 - 96.4 fL [facility] MCH 33.7(H) 27.1 - 33.3 pg [facility] MCHC 33.9 32.3 - 35.7 g/dL [facility] RDW CV 16.6(H) 11.1 - 14.9 % [facility] RDW SD 61.5(H) 35.7 - 48.1 fL [facility] NRBC abs 0.00 0.00 - 0.01 K/cumm [facility] Blood 08/01/2024 11:5 0 AM CDT 08/01/2024 12:09 PM CDT Marilee Sandoval NP LAB BLOOD ORDERABLES [facility] al Result [facility] [place] [address] * Basic metabolic panel (08/01/2024 11:50 AM CDT) [facility] Sodium 140 135 - 145 mmol/L Potassium, pl 4.4 3.3 - 4.9 mmol/L [facility] Chloride 106 97 - 110 mmol/L [facility] CO2 23 22 - 32 mmol/L [facility] Anion gap 11 2 - 15 mmol/L [facility] BUN 24 6 - 25 mg/dL [facility] Creatinine 1.22 0.80 - 1.30 mg/dL [facility] Glucose 142 70 - 199 mg/dL [facility] Comment: Interpretive Data Fasting glucose >/= [...] interpretive data was last revised 2022. Calcium 9.0 8.5 - 10.3 mg/dL [facility] Blood 08/01/2024 11:5 0 AM CDT 08/01/2024 12:09 PM CDT Marilee Sandoval NP LAB BLOOD ORDERABLES Fin al Result [facility] [place] [address] * POCT glucose (08/01/2024 11:48 AM CDT) Glucose, POC 139 70 - 199 mg/dL Blood 08/01/2024 11:4 8 AM CDT 08/01/2024 11:48 AM CDT Nick Veliz MD LAB POCT ORDERABLES - DE VICE Final Result [facility] Department [place] [place] [address] * Oxyhemoglobin, pulmonary artery (08/01/2024 7:59 AM CDT) Oxyhemoglobin, PA 85.1 % Comment: Interpretive Data No reference range established. Current interpretive data was last revised 2019. Blood 08/01/2024 7:59 AM CDT 08/01/2024 8:04 AM CDT Selvin Domínguez RADIOLOGICAL HEALTH SPECIALIST LAB BLOOD ORDERABLES Teetee l Result Performing Organization Address City/[facility] Co de Phone Number [facility] [place] [address] * (ABNORMAL) Hemoglobin total, pulmonary artery (08/01/2024 7:59 AM CDT) Hemoglobin total, PA 8.6(L) 13.0 - 17.5 g/dL Blood 08/01/2024 7:59 AM CDT 08/01/2024 8:04 AM CDT Arabella Gary RADIOLOGICAL HEALTH SPECIALIST LAB BLOOD ORDERABLES Fi nal Result Performing Organization Address [facility] Co de Phone Number [facility] [place] [address] * Potassium, whole blood (08/01/2024 7:59 AM CDT) Pathologist [facility] Potassium, bld 4.4 3.3 - 4.9 mmol/L Blood 08/01/2024 7:59 AM CDT 08/01/2024 8:12 AM CDT Arabella Gary RADIOLOGICAL HEALTH SPECIALIST LAB BLOOD ORDERABLES Fi nal Result Performing Organization Address City/[facility] Co de Phone Number [facility] [place] [address] * (ABNORMAL) Blood gas, arterial (08/01/2024 7:59 AM CDT) pH, Art 7.42 7.35 - 7.45 PCO2, Arterial 33(L) 35 - 45 mmHg [facility] PO2, Arterial 174(H) 83 - 108 mmHg [facility] HCO3 Art (Calculated) 22 20 - 30 mmol/L [facility] BE, art -2 mmol/L [facility] Comment: Interpretive Data No Reference Range Established Current Interpretive Data was last revised on 2017 O2 Sat Art (Measured) 99(H) 90 - 95 % [facility] Blood 08/01/2024 7:59 AM CDT 08/01/2024 8:12 AM CDT Selvin Domínguez RADIOLOGICAL HEALTH SPECIALIST LAB BLOOD ORDERABLES Teetee l Result Performing Organization Address [facility] Co de Phone Number [facility] [place] [address] * POCT glucose (08/01/2024 7:54 AM CDT) Glucose, POC 144 70 - 199 mg/dL Blood 08/01/2024 7:54 AM CDT 08/01/2024 7:54 AM CDT Nick Veliz MD LAB POCT ORDERABLES - DE VICE Final Result Performing Organization Address [facility] Co de Phone Number [facility] Department [place] [place] [address] * Critical Care (08/01/2024 7:00 AM CDT) Narrative Rebecca Alston MD - 08/01/2024 7:00 AM CDT Rebecca Alston MD 08/04/2024 7:38 AM Critical Care Performed by: Codi Ibanez NP Authorized by: Codi Ibanez NP CRITICAL CARE: Team: 56 CTICU Shift: AM Level of Billing: Critical Care My time spent with this patient was 90 minutes: Critical Provider Statement: I have seen and examined the patient on this day of service. I have reviewed and confirmed the history, physical exam, laboratory and radiologic data as documented in the signed ICU note. I have reviewed and discussed my treatment plan with the ICU team and other medical/production consultant staff, making frequent assessments and decisions regarding this patient's complex medical care. Critical Care time was exclusive of time spent performing separately billed procedures, treating other patients, and teaching. This time was in addition to and separate from critical care provided by other practitioners in my group on this day of service. Critical Care was necessary to treat or prevent imminent or life-threatening deterioration of the following conditions: I spent time reviewing and interpreting data from bedside monitors, laboratory results, and imaging, I spent time discussing the management of this critically ill patient with consultants and the medical staff and I spent time documenting in the medical record Codi Ibanez RADIOLOGICAL HEALTH SPECIALIST IN CLINIC/BEDSIDE ORDERABLES Fin al Result * POCT glucose (08/01/2024 6:17 AM CDT) Glucose, POC 120 70 - 199 mg/dL Blood 08/01/2024 6:17 AM CDT 08/01/2024 6:17 AM CDT Nick Veliz MD LAB POCT ORDERABLES - DE VICE Final Result Performing Organization Address [facility] Co de Phone Number [facility] Department [place] [address] * POCT glucose (08/01/2024 5:12 AM CDT) Glucose, POC 141 70 - 199 mg/dL Blood 08/01/2024 5:1 2 AM CDT 08/01/2024 5:12 AM CDT Nick Veliz MD LAB POCT ORDERABLES - DE VICE Final Result Performing Organization Address City/[facility] Co de Phone Number [facility] [place] [place] [address] * Oxyhemoglobin, pulmonary artery (08/01/2024 5:11 AM CDT) Oxyhemoglobin, PA 54.5 % Comment: Interpretive Data No reference range established. Current interpretive data was last revised 2019. Blood 08/01/2024 5:11 AM CDT 08/01/2024 5:18 AM CDT Selvin Domínguez RADIOLOGICAL HEALTH SPECIALIST LAB BLOOD ORDERABLES Teetee l Result Performing Organization Address City/[facility] Co de Phone Number [facility] [place] [address] * (ABNORMAL) Hemoglobin total, pulmonary artery (08/01/2024 5:11 AM CDT) Hemoglobin total, PA 8.3(L) 13.0 - 17.5 g/dL Blood 08/01/2024 5:11 AM CDT 08/01/2024 5:18 AM CDT Arabella Gary RADIOLOGICAL HEALTH SPECIALIST LAB BLOOD ORDERABLES Fi nal Result Performing Organization Address [facility] Co de Phone Number [facility] [place] [address] * (ABNORMAL) Blood gas, arterial (08/01/2024 5:11 AM CDT) pH, Art 7.43 7.35 - 7.45 PCO2, Arterial 32(L) 35 - 45 mmHg [facility] PO2, Arterial 78(L) 83 - 108 mmHg [facility] HCO3 Art (Calculated) 22 20 - 30 mmol/L [facility] BE, art -2 mmol/L [facility] Comment: Interpretive Data No Reference Range Established Current Interpretive Data was last revised on 2017 O2 Sat Art (Measured) 96(H) 90 - 95 % [facility] Blood 08/01/2024 5:11 AM CDT 08/01/2024 5:18 AM CDT Selvin Domínguez RADIOLOGICAL HEALTH SPECIALIST LAB BLOOD ORDERABLES Teetee l Result Performing Organization Address [facility]/[place] [address] * POCT glucose (08/01/2024 4:01 AM CDT) Glucose, POC 106 70 - 199 mg/dL Blood 08/01/2024 4:01 AM CDT 08/01/2024 4:01 AM CDT Nick Veliz MD LAB POCT ORDERABLES - DE VICE Final Result Performing Organization Address [facility] [place] [address] * POCT glucose (08/01/2024 2:16 AM CDT) Glucose, POC 119 70 - 199 mg/dL Blood 08/01/2024 2:16 AM CDT 08/01/2024 2:16 AM CDT us Nick Veliz MD LAB POCT ORDERABLES - DE VICE Final Result Performing Organization Address [facility] [place] [address] * POCT glucose (08/01/2024 1:27 AM CDT) Glucose, POC 128 70 - 199 mg/dL Blood 08/01/2024 1:27 AM CDT 08/01/2024 1:27 AM CDT us Nick Veliz MD LAB POCT ORDERABLES - DE VICE Final Result Performing Organization Address City/[facility]/ZIP Co de Phone Number [facility] [place] [address] * Oxyhemoglobin, central venous (08/01/2024 12:26 AM CDT) Oxyhemoglobin, CV 80.5 % Comment: Interpretive Data No reference range established. Current interpretive data was last revised 2019. Blood 08/01/2024 12:2 6 AM CDT 08/01/2024 12:44 AM CDT us Marilee Sandoval RADIOLOGICAL HEALTH SPECIALIST LAB BLOOD ORDERABLES Fin al Result Performing Organization Address City/[facility] Co de Phone Number [facility] [place] [address] * Oxyhemoglobin, pulmonary artery (08/01/2024 12:26 AM CDT) Oxyhemoglobin, PA 70.4 % Comment: Interpretive Data No reference range established. Current interpretive data was last revised 2019. Blood 08/01/2024 12:2 6 AM CDT 08/01/2024 12:34 AM CDT us Marilee Sandoval RADIOLOGICAL HEALTH SPECIALIST LAB BLOOD ORDERABLES Fin al Result Performing Organization Address [facility] Co de Phone Number [facility] [place] [place] [address] * Lactate (08/01/2024 12:26 AM CDT) Lactate 1.2 0.7 - 2.0 mmol/L Blood 08/01/2024 12:2 6 AM CDT 08/01/2024 12:44 AM CDT us Selvin Domínguez RADIOLOGICAL HEALTH SPECIALIST LAB BLOOD ORDERABLES Teetee l Result Performing Organization Address [facility] Co de Phone Number [facility] [place] [address] * Hemoglobin, plasma (08/01/2024 12:26 AM CDT) Hemoglobin, Plasma <30 <=50 mg/dL Blood 08/01/2024 12:2 6 AM CDT 08/01/2024 12:35 AM CDT us Marilee Sandoval RADIOLOGICAL HEALTH SPECIALIST LAB BLOOD ORDERABLES Fin al Result [facility] [place] [address] * Potassium, whole blood (08/01/2024 12:26 AM CDT) Pathologist [facility] Potassium, bld 4.4 3.3 - 4.9 mmol/L Blood 08/01/2024 12:2 6 AM CDT 08/01/2024 12:34 AM CDT Arabella Gary RADIOLOGICAL HEALTH SPECIALIST LAB BLOOD ORDERABLES Fi nal Result Performing Organization Address [facility] Co de Phone Number [facility] [place] [address] * (ABNORMAL) eGFR (08/01/2024 12:26 AM CDT) Pathologist [facility] eGFR 52(L) >=60 mL/min/1. 73 m2 Comment: Interpretive Data [...] interpretive data was last reviewed 2021. Blood 08/01/2024 12:2 6 AM CDT 08/01/2024 12:44 AM CDT Nick Veliz MD LAB BLOOD ORDERABLES Fin al Result Performing Organization Address [facility] de Phone Number [facility] Department [place] [address] * Heparin anti factor Xa activity (08/01/2024 12:26 AM CDT) Anti Factor Xa <0.10 IUnits/mL Comment: Interpretive Data Enoxaparin therapeutic range (peak): VTE treatment, Q12hr dosin.60-1.00 IUnits/mL VTE treatment, Q24hr dosin.00-2.00 IUnits/mL Q24hr dosing for renal impairment (CrCl <30 mL/min): 0.60-1.00 IUnits/mL VTE prevention: 0.10-0.40 IUnits/mL - Anti-Xa therapeutic ranges apply to blood samples drawn 4 hours after last dose (peak). - Unfractionated heparin (UFH) therapeutic range: 0.30-0.70 IUnits/mL - Direct factor Xa inhibitors (rivaroxaban, apixaban): Results must be interpreted qualitatively. No activity detected suggests little anticoagulant activity. - In severe antithrombin deficiency, anti-Xa measurement may be inaccurate. - Interpretive guidelines developed in adult populations. Interpretive guidelines for pediatric patients have not been rigorously defined. - Current interpretive data was last revised on 2018. Blood 08/01/2024 12:2 6 AM CDT 08/01/2024 12:34 AM CDT Nick Veliz MD LAB BLOOD ORDERABLES Fin al Result Performing Organization Address [facility] Co de Phone Number [facility] [place] [address] * Lactate, whole blood (08/01/2024 12:26 AM CDT) Lactate, bld 1.2 0.7 - 2.0 mmol/L Blood 08/01/2024 12:2 6 AM CDT 08/01/2024 12:34 AM CDT Nick Veliz MD LAB BLOOD ORDERABLES Fin al Result Performing Organization Address [facility] [place] [address] * aPTT (08/01/2024 12:26 AM CDT) aPTT 30 28 - 38 sec Comment: Interpretive Data Heparin therapeutic range: 66.0 - 100.0 seconds. Range based on correlation with therapeutic heparin activity range of 0.3 - 0.7 Units/mL. Current interpretive data was last revised on 2023. Blood 08/01/2024 12:2 6 AM CDT 08/01/2024 12:34 AM CDT Marilee Sandoval NP LAB BLOOD ORDERABLES Fin al Result Performing Organization Address [facility] [place] [address] * (ABNORMAL) Protime-INR (08/01/2024 12:26 AM CDT) PT 14.2(H) 9.7 - 13.0 sec INR 1.31(H) 0.90 - 1.20 [facility] Comment: Interpretive data Oral anticoagulant therapeutic ranges: Venous thromboembolism prophylaxis or treatment: 2.0-3.0 CARDIOLOGY Standard range: 2.0-3.0 High-intensity range: 2.5-3.5 Refer to indication-specific guidelines for appropriate target ranges for prosthetic heart valve replacement. Current interpretive data was last revised on 2019. Blood 08/01/2024 12:2 6 AM CDT 08/01/2024 12:34 AM CDT Marilee Sandoval NP LAB BLOOD ORDERABLES Fin al Result Performing Organization Address [facility] de Phone Number [facility] [place] [address] * (ABNORMAL) Fibrinogen (08/01/2024 12:26 AM CDT) Pathologist [facility] Fibrinogen 414(H) 170 - 400 mg/dL Blood 08/01/2024 12:2 6 AM CDT 08/01/2024 12:34 AM CDT Nick Veliz MD LAB BLOOD ORDERABLES Fin al Result Performing Organization Address [facility] de Phone Number [facility] [place] [address] * (ABNORMAL) CBC without differential (08/01/2024 12:26 AM CDT) [facility] WBC 12.94(H) 3.80 - 9.90 K/cumm Hgb 8.6(L) 13.0 - 17.5 g/dL [facility] Hct 25.3(L) 38.9 - 50.3 % [facility] Plt 73(L) 150 - 400 K/cumm [facility] MPV 11.5 9.1 - 12.3 fL [facility] RBC 2.57(L) 4.30 - 5.80 M/cumm [facility] MCV 98.4(H) 81.3 - 96.4 fL [facility] MCH 33.5(H) 27.1 - 33.3 pg [facility] MCHC 34.0 32.3 - 35.7 g/dL [facility] RDW CV 17.0(H) 11.1 - 14.9 % [facility] RDW SD 61.4(H) 35.7 - 48.1 fL [facility] NRBC abs 0.00 0.00 - 0.01 K/cumm [facility] Blood 08/01/2024 12:2 6 AM CDT 08/01/2024 12:35 AM CDT Mariele Sandoval RADIOLOGICAL HEALTH SPECIALIST LAB BLOOD ORDERABLES Fin al Result Performing Organization Address City/[facility] Co de Phone Number [facility] [place] [address] * (ABNORMAL) Phosphorus (08/01/2024 12:26 AM CDT) Pathologist [facility] Phosphorus, pl 5.0(H) 2.3 - 4.5 mg/dL Blood 08/01/2024 12:2 6 AM CDT 08/01/2024 12:35 AM CDT Selvin Domínguez RADIOLOGICAL HEALTH SPECIALIST LAB BLOOD ORDERABLES Teetee l Result Performing Organization Address [facility] de Phone Number [facility] [place] [address] * (ABNORMAL) Magnesium (08/01/2024 12:26 AM CDT) Pathologist [facility] Magnesium 2.6(H) 1.4 - 2.5 mg/dL Blood 08/01/2024 12:2 6 AM CDT 08/01/2024 12:35 AM CDT Selvin Domínguez RADIOLOGICAL HEALTH SPECIALIST LAB BLOOD ORDERABLES Teetee l Result Performing Organization Address City/[facility] Co de Phone Number [facility] [facility] [place] [address] * (ABNORMAL) Lactate dehydrogenase (LD) (08/01/2024 12:26 AM CDT) Pathologist [facility] Lactate dehydrogenase (LDH) 400(H) 100 - 250 Units/L Blood 08/01/2024 12:2 6 AM CDT 08/01/2024 12:35 AM CDT Marilee Sandoval RADIOLOGICAL HEALTH SPECIALIST LAB BLOOD ORDERABLES Fin al Result Performing Organization Address [facility] de Phone Number [facility] [place] [address] * (ABNORMAL) Blood gas, arterial (08/01/2024 12:26 AM CDT) pH, Art 7.38 7.35 - 7.45 PCO2, Arterial 36 35 - 45 mmHg [facility] PO2, Arterial 136(H) 83 - 108 mmHg [facility] HCO3 Art (Calculated) 22 20 - 30 mmol/L [facility] BE, art -4 mmol/L [facility] Comment: Interpretive Data No Reference Range Established Current Interpretive Data was last revised on 2017 O2 Sat Art (Measured) 99(H) 90 - 95 % [facility] Blood 08/01/2024 12:2 6 AM CDT 08/01/2024 12:34 AM CDT Selvin Domínguez RADIOLOGICAL HEALTH SPECIALIST LAB BLOOD ORDERABLES Teetee l Result Performing Organization Address [facility] de Phone Number [facility] [place] [address] * (ABNORMAL) Creatine kinase (CK), total (08/01/2024 12:26 AM CDT) CK 316(H) 40 - 300 Units/L Blood 08/01/2024 12:2 6 AM CDT 08/01/2024 12:35 AM CDT Nick Veliz MD LAB BLOOD ORDERABLES Fin al Result Performing Organization Address [facility] de Phone Number [facility] [place] [address] * (ABNORMAL) Hepatic function panel (08/01/2024 12:26 AM CDT) Pathologist [facility] Bilirubin, total 1.4(H) 0.1 - 1.2 mg/dL Bilirubin, direct 0.7(H) 0.1 - 0.3 mg/dL [facility] Protein, pl 5.6(L) 6.5 - 8.5 g/dL [facility] Albumin 3.5 3.5 - 5.0 g/dL [facility] Alk phos 40 40 - 130 Units/L [facility] ALT 8 7 - 55 Units/L [facility] AST 66(H) 10 - 50 Units/L [facility] Blood 08/01/2024 12:2 6 AM CDT 08/01/2024 12:35 AM CDT Marilee Sandoval NP LAB BLOOD ORDERABLES Fin al Result [facility] [place] [address] * (ABNORMAL) Basic metabolic panel (08/01/2024 12:26 AM CDT) Pathologist [facility] Sodium 142 135 - 145 mmol/L Potassium, pl 4.6 3.3 - 4.9 mmol/L [facility] Chloride 108 97 - 110 mmol/L [facility] CO2 22 22 - 32 mmol/L [facility] Anion gap 12 2 - 15 mmol/L [facility] BUN 27(H) 6 - 25 mg/dL [facility] Creatinine 1.42(H) 0.80 - 1.30 mg/dL [facility] Glucose 137 70 - 199 mg/dL [facility] Comment: Interpretive Data Fasting glucose >/= [...] interpretive data was last revised 2022. Calcium 9.2 8.5 - 10.3 mg/dL [facility] Blood 08/01/2024 12:2 6 AM CDT 08/01/2024 12:35 AM CDT Nick Veliz MD LAB BLOOD ORDERABLES Fin al Result [facility] [place] [address] * POCT glucose (08/01/2024 12:23 AM CDT) Glucose, POC 134 70 - 199 mg/dL Blood 08/01/2024 12:2 3 AM CDT 08/01/2024 12:23 AM CDT Nick Veliz MD LAB POCT ORDERABLES - DE VICE Final Result Performing Organization Address City/[facility] Co de Phone Number [facility] [place] [address] * POCT glucose (07/31/2024 10:10 PM CDT) Glucose, POC 107 70 - 199 mg/dL Blood 07/31/2024 10:1 0 PM CDT 07/31/2024 10:10 PM CDT Nick Veliz MD LAB POCT ORDERABLES - DE VICE Final Result Performing Organization Address City/[facility]/ZIP Co de Phone Number [facility] [place] [address] * Oxyhemoglobin, pulmonary artery (07/31/2024 9:19 PM CDT) Pathologist [facility] Oxyhemoglobin, PA 71.0 % Comment: Interpretive Data No reference range established. Current interpretive data was last revised 2019. Blood 07/31/2024 9:19 PM CDT 07/31/2024 9:23 PM CDT us Selvin Domínguez RADIOLOGICAL HEALTH SPECIALIST LAB BLOOD ORDERABLES Teetee l Result Performing Organization Address City/[facility] Co de Phone Number [facility] Department [place] [address] * (ABNORMAL) Hemoglobin total, pulmonary artery (07/31/2024 9:19 PM CDT) Pathologist [facility] Hemoglobin total, PA 8.8(L) 13.0 - 17.5 g/dL Blood 07/31/2024 9:19 PM CDT 07/31/2024 9:23 PM CDT us Arabella Gary RADIOLOGICAL HEALTH SPECIALIST LAB BLOOD ORDERABLES Fi nal Result Performing Organization Address [facility] Co de Phone Number [facility] [place] [address] * (ABNORMAL) Blood gas, arterial (07/31/2024 9:19 PM CDT) Pathologist [facility] pH, Art 7.40 7.35 - 7.45 PCO2, Arterial 30(L) 35 - 45 mmHg [facility] PO2, Arterial 159(H) 83 - 108 mmHg [facility] HCO3 Art (Calculated) 19(L) 20 - 30 mmol/L [facility] BE, art -5 mmol/L [facility] Comment: Interpretive Data No Reference Range Established Current Interpretive Data was last revised on 2017 O2 Sat Art (Measured) 100(H) 90 - 95 % [facility] Blood 07/31/2024 9:19 PM CDT 07/31/2024 9:23 PM CDT us Selvin Domínguez RADIOLOGICAL HEALTH SPECIALIST LAB BLOOD ORDERABLES Teetee l Result [facility] [place] [address] * POCT glucose (07/31/2024 9:17 PM CDT) Glucose, POC 116 70 - 199 mg/dL Blood 07/31/2024 9:17 PM CDT 07/31/2024 9:17 PM CDT Nick Veliz MD LAB POCT ORDERABLES - DE VICE Final Result Performing Organization Address [facility] Co de Phone Number [facility] [place] [address] * XR Chest 1 View - in PM (07/31/2024 8:55 PM CDT) Anatomical Region Laterality Modality Body, Chest N/A Computed Radiogr aphy 08/01/2024 11:1 4 AM CDT Impressions 08/01/2024 11:37 AM CDT The current study is compared with the prior radiograph dated 07/31/2024. An endotracheal tube is approximately 7 centimeters above the emmanuel. A gastric tube extends below the level of the hemidiaphragm. A Clyde-Clair catheter is in place, tip overlies the main pulmonary artery. Patient is status post median sternotomy, aortic valve replacement, and left atrial appendage occlusion device placement. Bilateral chest tubes in place. A mediastinal and a pericardial drain are in place. An Impella device is in place. No change in small bilateral pleural effusions layering posteriorly. Mild bibasilar atelectasis. No pneumothorax. Unchanged cardiomediastinal silhouette.. Dictated by: Sydney Stock M.D. The radiology attending physician has personally reviewed this study, and had reviewed and/or edited this written report and agrees with it. Electronically signed by: Toyin Centeno M.D. Narrative 08/01/2024 11:37 AM CDT EXAMINATION: 1 view chest radiograph Procedure Note Toyin Centeno MD - 08/01/2024 EXAMINATION: 1 view chest radiograph IMPRESSION: The current study is compared with the prior radiograph dated 07/31/2024. An endotracheal tube is approximately 7 centimeters above the emmanuel. A gastric tube extends below the level of the hemidiaphragm. A Clyde-Clair catheter is in place, tip overlies the main pulmonary artery. Patient is status post median sternotomy, aortic valve replacement, and left atrial appendage occlusion device placement. Bilateral chest tubes in place. A mediastinal and a pericardial drain are in place. An Impella device is in place. No change in small bilateral pleural effusions layering posteriorly. Mild bibasilar atelectasis. No pneumothorax. Unchanged cardiomediastinal silhouette.. Dictated by: Sydney Stock M.D. The radiology attending physician has personally reviewed this study, and had reviewed and/or edited this written report and agrees with it. Electronically signed by: Toyin Centeno M.D. Marilee Sandoval NP IMG XR PROCEDURES Final Result * Critical Care (07/31/2024 8:39 PM CDT) Narrative Rebecca Alston MD - 07/31/2024 8:39 PM CDT Rebecca Alston MD 08/01/2024 4:37 PM Critical Care Performed by: Mt Julien NP Authorized by: Mt Julien NP CRITICAL CARE: Team: 56 CTICU Shift: PM Level of Billing: Critical Care My time spent with this patient was 90 minutes: Critical Provider Statement: I have seen and examined the patient on this day of service. I have reviewed and confirmed the history, physical exam, laboratory and radiologic data as documented in the signed ICU note. I have reviewed and discussed my treatment plan with the ICU team and other medical/production consultant staff, making frequent assessments and decisions regarding this patient's complex medical care. Critical Care time was exclusive of time spent performing separately billed procedures, treating other patients, and teaching. This time was in addition to and separate from critical care provided by other practitioners in my group on this day of service. Critical Care was necessary to treat or prevent imminent or life-threatening deterioration of the following conditions: I spent time reviewing and interpreting data from bedside monitors, laboratory results, and imaging, I spent time documenting in the medical record and I spent time discussing the management of this critically ill patient with consultants and the medical staff us Mt Julien RADIOLOGICAL HEALTH SPECIALIST IN CLINIC/BEDSIDE ORDERABLES F inal Result * Oxyhemoglobin, pulmonary artery (07/31/2024 7:48 PM CDT) Oxyhemoglobin, PA 70.5 % Comment: Interpretive Data No reference range established. Current interpretive data was last revised 2019. Blood 07/31/2024 7:48 PM CDT 07/31/2024 7:53 PM CDT Selvin Domínguez RADIOLOGICAL HEALTH SPECIALIST LAB BLOOD ORDERABLES Teetee l Result [facility] [place] [address] * (ABNORMAL) Hemoglobin total, pulmonary artery (07/31/2024 7:48 PM CDT) Hemoglobin total, PA 9.0(L) 13.0 - 17.5 g/dL Blood 07/31/2024 7:48 PM CDT 07/31/2024 7:53 PM CDT Arabella Gary RADIOLOGICAL HEALTH SPECIALIST LAB BLOOD ORDERABLES Fi nal Result [facility] [place] [address] * Potassium, whole blood (07/31/2024 7:48 PM CDT) Potassium, bld 4.2 3.3 - 4.9 mmol/L Blood 07/31/2024 7:48 PM CDT 07/31/2024 7:53 PM CDT Arabella Gary RADIOLOGICAL HEALTH SPECIALIST LAB BLOOD ORDERABLES Fi nal Result Performing Organization Address [facility]/ZIP Co de Phone Number [facility] [place] [address] * (ABNORMAL) Blood gas, arterial (07/31/2024 7:48 PM CDT) pH, Art 7.42 7.35 - 7.45 PCO2, Arterial 31(L) 35 - 45 mmHg [facility] PO2, Arterial 170(H) 83 - 108 mmHg [facility] HCO3 Art (Calculated) 21 20 - 30 mmol/L [facility] BE, art -4 mmol/L [facility] Comment: Interpretive Data No Reference Range Established Current Interpretive Data was last revised on 2017 O2 Sat Art (Measured) 98(H) 90 - 95 % [facility] Blood 07/31/2024 7:48 PM CDT 07/31/2024 7:53 PM CDT Selvin Domínguez RADIOLOGICAL HEALTH SPECIALIST LAB BLOOD ORDERABLES Teetee l Result Performing Organization Address [facility] Co de Phone Number [facility] [place] [address] * POCT glucose (07/31/2024 7:44 PM CDT) Glucose, POC 112 70 - 199 mg/dL Blood 07/31/2024 7:44 PM CDT 07/31/2024 7:44 PM CDT Nick Veliz MD LAB POCT ORDERABLES - DE VICE Final Result Performing Organization Address [facility] Co de Phone Number [facility] [place] [address] * Transfuse RBC (07/31/2024 7:30 PM CDT) Blood Yazmin Alvarado RADIOLOGICAL HEALTH SPECIALIST BLOOD TRANSFUSION ORDERAB LES Final Result Performing Organization Address [facility] Co de Phone Number [facility] [place] [address] * POCT glucose (07/31/2024 6:15 PM CDT) Glucose, POC 86 70 - 199 mg/dL Blood 07/31/2024 6:15 PM CDT 07/31/2024 6:15 PM CDT Nick Veliz MD LAB POCT ORDERABLES - DE VICE Final Result Performing Organization Address [facility]/ZIP Co de Phone Number [facility] [place] [address] * POCT glucose (07/31/2024 3:14 PM CDT) Pathologist [facility] Glucose, POC 101 70 - 199 mg/dL Blood 07/31/2024 3:14 PM CDT 07/31/2024 3:14 PM CDT Nick Veliz MD LAB POCT ORDERABLES - DE VICE Final Result Performing Organization Address [facility] [place] [address] * Prepare RBC: 1 Units (07/31/2024 2:53 PM CDT) [facility] Signature Product code [id number] Unit Number [id number] [facility] Product Blood Type APOS [facility] Dispense Status PRESUMED TRANSFUSED [facility] Blood 07/31/2024 2:53 PM CDT 07/31/2024 2:54 PM CDT Narrative [facility] - 08/01/2024 6:01 AM CDT Are special requirements needed? (All products are leukoreduced and CMV- safe)- >No Date required:-[id number] LRRBC # of [id number] Reasons:-Cardiovascular disease, Hgb <8 g/dL} Yazmin Alvarado RADIOLOGICAL HEALTH SPECIALIST BLOOD BANK PRODUCT ORDERA BLES Final Result Performing Organization Address City/[facility] Co de Phone Number [facility] [place] [address] * Methemoglobin, art (07/31/2024 2:10 PM CDT) [facility] Methemoglobin, art 1.3 0.0 - 1.9 % Blood 07/31/2024 2:10 PM CDT 07/31/2024 2:15 PM CDT Nick Veliz MD LAB BLOOD ORDERABLES Fin al Result Performing Organization Address [facility] Co de Phone Number [facility] [place] [address] * Potassium, whole blood (07/31/2024 2:10 PM CDT) [facility] Potassium, bld 4.4 3.3 - 4.9 mmol/L Blood 07/31/2024 2:10 PM CDT 07/31/2024 2:15 PM CDT Arabella Gary NP LAB BLOOD ORDERABLES Fi nal Result Performing Organization Address [facility] [place] [address] * (ABNORMAL) eGFR (07/31/2024 2:10 PM CDT) [facility] eGFR 50(L) >=60 mL/min/1. 73 m2 Comment: Interpretive Data [...] interpretive data was last reviewed 2021. Blood 07/31/2024 2:10 PM CDT 07/31/2024 2:22 PM CDT Marilee Sandoval NP LAB BLOOD ORDERABLES Fin al Result [facility] [place] [address] * Heparin anti factor Xa activity (07/31/2024 2:10 PM CDT) Pathologist [facility] Anti Factor Xa <0.10 IUnits/mL Comment: Interpretive Data Enoxaparin therapeutic range (peak): VTE treatment, Q12hr dosin.60-1.00 IUnits/mL VTE treatment, Q24hr dosin.00-2.00 IUnits/mL Q24hr dosing for renal impairment (CrCl <30 mL/min): 0.60-1.00 IUnits/mL VTE prevention: 0.10-0.40 IUnits/mL - Anti-Xa therapeutic ranges apply to blood samples drawn 4 hours after last dose (peak). - Unfractionated heparin (UFH) therapeutic range: 0.30-0.70 IUnits/mL - Direct factor Xa inhibitors (rivaroxaban, apixaban): Results must be interpreted qualitatively. No activity detected suggests little anticoagulant activity. - In severe antithrombin deficiency, anti-Xa measurement may be inaccurate. - Interpretive guidelines developed in adult populations. Interpretive guidelines for pediatric patients have not been rigorously defined. - Current interpretive data was last revised on 2018. Blood 07/31/2024 2:10 PM CDT 07/31/2024 2:29 PM CDT Marilee Sandoval LAB BLOOD ORDERABLES Fin al Result Performing Organization Address [facility] de Phone Number [facility] [place] [address] * aPTT (07/31/2024 2:10 PM CDT) aPTT 30 28 - 38 sec Comment: Interpretive Data Heparin therapeutic range: 66.0 - 100.0 seconds. Range based on correlation with therapeutic heparin activity range of 0.3 - 0.7 Units/mL. Current interpretive data was last revised on 2023. Blood 07/31/2024 2:10 PM CDT 07/31/2024 2:29 PM CDT Marilee Sandoval LAB BLOOD ORDERABLES Fin al Result Performing Organization Address [facility] de Phone Number [facility] [place] [address] * (ABNORMAL) Protime-INR (07/31/2024 2:10 PM CDT) PT 15.9(H) 9.7 - 13.0 sec INR 1.46(H) 0.90 - 1.20 [facility] Comment: Interpretive data Oral anticoagulant therapeutic ranges: Venous thromboembolism prophylaxis or treatment: 2.0-3.0 CARDIOLOGY Standard range: 2.0-3.0 High-intensity range: 2.5-3.5 Refer to indication-specific guidelines for appropriate target ranges for prosthetic heart valve replacement. Current interpretive data was last revised on 2019. Blood 07/31/2024 2:10 PM CDT 07/31/2024 2:29 PM CDT Marilee Sandoval RADIOLOGICAL HEALTH SPECIALIST LAB BLOOD ORDERABLES Fin al Result Performing Organization Address [facility] Co de Phone Number [facility] [place] [address] * (ABNORMAL) CBC without differential (07/31/2024 2:10 PM CDT) WBC 11.86(H) 3.80 - 9.90 K/cumm Hgb 7.8(L) 13.0 - 17.5 g/dL [facility] Hct 22.8(L) 38.9 - 50.3 % [facility] Plt 95(L) 150 - 400 K/cumm [facility] MPV 10.7 9.1 - 12.3 fL [facility] RBC 2.30(L) 4.30 - 5.80 M/cumm [facility] MCV 99.1(H) 81.3 - 96.4 fL [facility] MCH 33.9(H) 27.1 - 33.3 pg [facility] MCHC 34.2 32.3 - 35.7 g/dL [facility] RDW CV 15.4(H) 11.1 - 14.9 % [facility] RDW SD 56.2(H) 35.7 - 48.1 fL [facility] NRBC abs 0.00 0.00 - 0.01 K/cumm [facility] Blood 07/31/2024 2:10 PM CDT 07/31/2024 2:22 PM CDT Marilee Sandoval RADIOLOGICAL HEALTH SPECIALIST LAB BLOOD ORDERABLES Fin al Result Performing Organization Address [facility] Co de Phone Number [facility] [place] [address] * (ABNORMAL) Blood gas, arterial (07/31/2024 2:10 PM CDT) pH, Art 7.45 7.35 - 7.45 PCO2, Arterial 32(L) 35 - 45 mmHg [facility] PO2, Arterial 175(H) 83 - 108 mmHg [facility] HCO3 Art (Calculated) 23 20 - 30 mmol/L [facility] BE, art -1 mmol/L [facility] Comment: Interpretive Data No Reference Range Established Current Interpretive Data was last revised on 2017 O2 Sat Art (Measured) 100(H) 90 - 95 % [facility] Blood 07/31/2024 2:10 PM CDT 07/31/2024 2:15 PM CDT Selvin Domínguez NP LAB BLOOD ORDERABLES Teetee keith Result [facility] [place] [address] * (ABNORMAL) Basic metabolic panel (07/31/2024 2:10 PM CDT) Pathologist [facility] Sodium 141 135 - 145 mmol/L Potassium, pl 4.6 3.3 - 4.9 mmol/L [facility] Chloride 108 97 - 110 mmol/L [facility] CO2 25 22 - 32 mmol/L [facility] Anion gap 8 2 - 15 mmol/L [facility] BUN 25 6 - 25 mg/dL [facility] Creatinine 1.48(H) 0.80 - 1.30 mg/dL [facility] Glucose 111 70 - 199 mg/dL [facility] Comment: Interpretive Data Fasting glucose >/= [...] interpretive data was last revised 2022. Calcium 9.0 8.5 - 10.3 mg/dL [facility] Blood 07/31/2024 2:10 PM CDT 07/31/2024 2:22 PM CDT Marilee Sandoval NP LAB BLOOD ORDERABLES Fin al Result [facility] [place] [address] * POCT glucose (07/31/2024 2:08 PM CDT) Glucose, POC 121 70 - 199 mg/dL Blood 07/31/2024 2:08 PM CDT 07/31/2024 2:08 PM CDT Nick Veliz MD LAB POCT ORDERABLES - DE VICE Final Result Performing Organization Address City/[facility] Co de Phone Number [facility] [place] [address] * POCT glucose (07/31/2024 12:17 PM CDT) Glucose, POC 121 70 - 199 mg/dL Blood 07/31/2024 12:1 7 PM CDT 07/31/2024 12:17 PM CDT Nick Veliz MD LAB POCT ORDERABLES - DE VICE Final Result Performing Organization Address City/[facility] Co de Phone Number [facility] [place] [address] * POCT glucose (07/31/2024 11:29 AM CDT) Glucose, POC 121 70 - 199 mg/dL Blood 07/31/2024 11:2 9 AM CDT 07/31/2024 11:29 AM CDT Nick Veliz MD LAB POCT ORDERABLES - DE VICE Final Result Performing Organization Address [facility] Co de Phone Number [facility] [place] [address] * Oxyhemoglobin, central venous (07/31/2024 10:35 AM CDT) Oxyhemoglobin, CV 84.5 % Comment: Interpretive Data No reference range established. Current interpretive data was last revised 2019. Blood 07/31/2024 10:3 5 AM CDT 07/31/2024 10:40 AM CDT Selvin Domínguez NP LAB BLOOD ORDERABLES Teetee l Result Performing Organization Address [facility] Co de Phone Number [facility] [place] [address] * Oxyhemoglobin, pulmonary artery (07/31/2024 10:35 AM CDT) Oxyhemoglobin, PA 88.9 % Comment: Interpretive Data No reference range established. Current interpretive data was last revised 2019. Blood 07/31/2024 10:3 5 AM CDT 07/31/2024 10:40 AM CDT Selvin Domínguez NP LAB BLOOD ORDERABLES Teetee l Result Performing Organization Address [facility] Co de Phone Number [facility] [place] [address] * (ABNORMAL) Hemoglobin total, pulmonary artery (07/31/2024 10:35 AM CDT) Hemoglobin total, PA 7.9(L) 13.0 - 17.5 g/dL Blood 07/31/2024 10:3 5 AM CDT 07/31/2024 10:40 AM CDT Arabella Gary NP LAB BLOOD ORDERABLES Fi nal Result Performing Organization Address City/[facility]/ZIP Co de Phone Number [facility] [place] [address] * Hemoglobin, plasma (07/31/2024 10:35 AM CDT) Hemoglobin, Plasma <30 <=50 mg/dL Blood 07/31/2024 10:3 5 AM CDT 07/31/2024 10:45 AM CDT Nick Veliz MD LAB BLOOD ORDERABLES Fin al Result Performing Organization Address [facility] Co de Phone Number [facility] Department [place] [address] * (ABNORMAL) eGFR (07/31/2024 10:35 AM CDT) eGFR 48(L) >=60 mL/min/1. 73 m2 Comment: Interpretive Data [...] interpretive data was last reviewed 2021. Blood 07/31/2024 10:3 5 AM CDT 07/31/2024 10:45 AM CDT Nick Veliz MD LAB BLOOD ORDERABLES Fin al Result Performing Organization Address [facility] Co de Phone Number [facility] [place] [address] * Heparin anti factor Xa activity (07/31/2024 10:35 AM CDT) Anti Factor Xa <0.10 IUnits/mL Comment: Interpretive Data Enoxaparin therapeutic range (peak): VTE treatment, Q12hr dosin.60-1.00 IUnits/mL VTE treatment, Q24hr dosin.00-2.00 IUnits/mL Q24hr dosing for renal impairment (CrCl <30 mL/min): 0.60-1.00 IUnits/mL VTE prevention: 0.10-0.40 IUnits/mL - Anti-Xa therapeutic ranges apply to blood samples drawn 4 hours after last dose (peak). - Unfractionated heparin (UFH) therapeutic range: 0.30-0.70 IUnits/mL - Direct factor Xa inhibitors (rivaroxaban, apixaban): Results must be interpreted qualitatively. No activity detected suggests little anticoagulant activity. - In severe antithrombin deficiency, anti-Xa measurement may be inaccurate. - Interpretive guidelines developed in adult populations. Interpretive guidelines for pediatric patients have not been rigorously defined. - Current interpretive data was last revised on 2018. Blood 07/31/2024 10:3 5 AM CDT 07/31/2024 10:43 AM CDT Nick Veliz MD LAB BLOOD ORDERABLES Fin al Result Performing Organization Address [facility]/ZIP Co de Phone Number [facility] Department [place] [address] * (ABNORMAL) Blood gas, arterial (07/31/2024 10:35 AM CDT) Pathologist [facility] pH, Art 7.43 7.35 - 7.45 PCO2, Arterial 31(L) 35 - 45 mmHg [facility] PO2, Arterial 184(H) 83 - 108 mmHg [facility] HCO3 Art (Calculated) 21 20 - 30 mmol/L [facility] BE, art -3 mmol/L [facility] Comment: Interpretive Data No Reference Range Established Current Interpretive Data was last revised on 2017 O2 Sat Art (Measured) 100(H) 90 - 95 % [facility] Blood 07/31/2024 10:3 5 AM CDT 07/31/2024 10:40 AM CDT Selvin Domínguez NP LAB BLOOD ORDERABLES Teetee l Result Performing Organization Address [facility] Co de Phone Number [facility] Department [place] [address] * (ABNORMAL) Creatine kinase (CK), total (07/31/2024 10:35 AM CDT) Pathologist [facility] CK 479(H) 40 - 300 Units/L Blood 07/31/2024 10:3 5 AM CDT 07/31/2024 10:45 AM CDT Narrative [facility] - 07/31/2024 11:21 AM CDT Do Not delete for IMPACT trial Nick Veliz MD LAB BLOOD ORDERABLES Fin al Result [facility] [place] [place] [address] * (ABNORMAL) Comprehensive metabolic panel (07/31/2024 10:35 AM CDT) [facility] Sodium 138 135 - 145 mmol/L Potassium, pl 4.8 3.3 - 4.9 mmol/L [facility] Chloride 105 97 - 110 mmol/L [facility] CO2 22 22 - 32 mmol/L [facility] Anion gap 11 2 - 15 mmol/L [facility] BUN 25 6 - 25 mg/dL [facility] Creatinine 1.53(H) 0.80 - 1.30 mg/dL [facility] Glucose 136 70 - 199 mg/dL [facility] Comment: Interpretive Data Fasting glucose >/= [...] interpretive data was last revised 2022. Calcium 9.4 8.5 - 10.3 mg/dL [facility] Bilirubin, total 1.2 0.1 - 1.2 mg/dL [facility] Protein, pl 5.1(L) 6.5 - 8.5 g/dL [facility] Albumin 3.2(L) 3.5 - 5.0 g/dL [facility] Alk phos 33(L) 40 - 130 Units/L [facility] ALT 13 7 - 55 Units/L [facility] AST 96(H) 10 - 50 Units/L [facility] Blood 07/31/2024 10:3 5 AM CDT 07/31/2024 10:45 AM CDT Nick Veliz MD LAB BLOOD ORDERABLES Fin al Result [facility] [place] [address] * POCT glucose (07/31/2024 10:33 AM CDT) [facility] Glucose, POC 157 70 - 199 mg/dL Blood 07/31/2024 10:3 3 AM CDT 07/31/2024 10:33 AM CDT Nick Veliz MD LAB POCT ORDERABLES - DE VICE Final Result Performing Organization Address [facility] de Phone Number [facility] [place] [address] * Oxyhemoglobin, pulmonary artery (07/31/2024 9:57 AM CDT) Oxyhemoglobin, PA 89.6 % Comment: Interpretive Data No reference range established. Current interpretive data was last revised 2019. Blood 07/31/2024 9:57 AM CDT 07/31/2024 10:00 AM CDT Selvin Domínguez RADIOLOGICAL HEALTH SPECIALIST LAB BLOOD ORDERABLES Teetee l Result Performing Organization Address [facility] Co de Phone Number [facility] [place] [address] * (ABNORMAL) Hemoglobin total, pulmonary artery (07/31/2024 9:57 AM CDT) Hemoglobin total, PA 8.8(L) 13.0 - 17.5 g/dL Blood 07/31/2024 9:57 AM CDT 07/31/2024 10:00 AM CDT Arabella Gary RADIOLOGICAL HEALTH SPECIALIST LAB BLOOD ORDERABLES Fi nal Result Performing Organization Address [facility] Co de Phone Number [facility] [place] [address] * Potassium, whole blood (07/31/2024 9:57 AM CDT) Potassium, bld 4.5 3.3 - 4.9 mmol/L Blood 07/31/2024 9:57 AM CDT 07/31/2024 10:00 AM CDT Arabella Gary RADIOLOGICAL HEALTH SPECIALIST LAB BLOOD ORDERABLES Fi nal Result Performing Organization Address [facility] Co de Phone Number [facility] [place] [address] * (ABNORMAL) Blood gas, arterial (07/31/2024 9:57 AM CDT) pH, Art 7.42 7.35 - 7.45 PCO2, Arterial 30(L) 35 - 45 mmHg [facility] PO2, Arterial 185(H) 83 - 108 mmHg [facility] HCO3 Art (Calculated) 20 20 - 30 mmol/L [facility] BE, art -4 mmol/L [facility] Comment: Interpretive Data No Reference Range Established Current Interpretive Data was last revised on 2017 O2 Sat Art (Measured) 100(H) 90 - 95 % [facility] Blood 07/31/2024 9:57 AM CDT 07/31/2024 10:00 AM CDT Selvin Domínguez RADIOLOGICAL HEALTH SPECIALIST LAB BLOOD ORDERABLES Teetee l Result Performing Organization Address [facility] Co de Phone Number [facility] [place] [address] * Critical Care (07/31/2024 8:58 AM CDT) Narrative Rebecca Alston MD - 07/31/2024 8:58 AM CDT Rebecca Alston MD 08/01/2024 4:42 PM Critical Care Performed by: Yazmin Alvarado NP Authorized by: Yazmin Alvarado NP CRITICAL CARE: Team: 56 CTICU Shift: AM Level of Billing: Critical Care My time spent with this patient was 120 minutes: Critical Provider Statement: I have seen and examined the patient on this day of service. I have reviewed and confirmed the history, physical exam, laboratory and radiologic data as documented in the signed ICU note. I have reviewed and discussed my treatment plan with the ICU team and other medical/production consultant staff, making frequent assessments and decisions regarding this patient's complex medical care. Critical Care time was exclusive of time spent performing separately billed procedures, treating other patients, and teaching. This time was in addition to and separate from critical care provided by other practitioners in my group on this day of service. Critical Care was necessary to treat or prevent imminent or life-threatening deterioration of the following conditions: I spent time reviewing and interpreting data from bedside monitors, laboratory results, and imaging, I spent time discussing the management of this critically ill patient with consultants and the medical staff and I spent time documenting in the medical record us Yazmin Alvarado NP IN CLINIC/BEDSIDE ORDERAB LES Final Result * XR Chest 1 View (07/31/2024 8:48 AM CDT) Anatomical Region Laterality Modality Body, Chest N/A Digital Radiogra phy 07/31/2024 10:1 2 AM CDT Impressions 07/31/2024 11:41 AM CDT The current study is compared with the prior radiograph dated 07/30/2024. An endotracheal tube is approximately 7.0 centimeters above the emmanuel. 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 Right internal jugular Clyde-Clair catheter tip overlies the main pulmonary artery. An impella device is in place. Bilateral thoracostomy tubes. Small right greater than left pleural effusions with atelectasis. No definite pneumothorax. The cardiomediastinal silhouette is stable. Dictated by: Brina Hoff MD The radiology attending physician has personally reviewed this study, and had reviewed and/or edited this written report and agrees with it. Electronically signed by: Toyin Centeno M.D. Narrative 07/31/2024 11:41 AM CDT EXAMINATION: 1 view chest radiograph Procedure Note Toyin Centeno MD - 07/31/2024 EXAMINATION: 1 view chest radiograph IMPRESSION: The current study is compared with the prior radiograph dated 07/30/2024. An endotracheal tube is approximately 7.0 centimeters above the emmanuel. 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 Right internal jugular Clyde-Clair catheter tip overlies the main pulmonary artery. An impella device is in place. Bilateral thoracostomy tubes. Small right greater than left pleural effusions with atelectasis. No definite pneumothorax. The cardiomediastinal silhouette is stable. Dictated by: Brina Hoff MD The radiology attending physician has personally reviewed this study, and had reviewed and/or edited this written report and agrees with it. Electronically signed by: Toyin Centeno M.D. Marilee Sandoval RADIOLOGICAL HEALTH SPECIALIST IMG XR PROCEDURES Final Result * POCT glucose (07/31/2024 8:29 AM CDT) Glucose, POC 128 70 - 199 mg/dL Blood 07/31/2024 8:29 AM CDT 07/31/2024 8:29 AM CDT Nick Veliz MD LAB POCT ORDERABLES - DE VICE Final Result Performing Organization Address [facility] Co de Phone Number [facility] [place] [place] [address] * POCT glucose (07/31/2024 6:58 AM CDT) Glucose, POC 95 70 - 199 mg/dL Blood 07/31/2024 6:58 AM CDT 07/31/2024 6:58 AM CDT Nick Veliz MD LAB POCT ORDERABLES - DE VICE Final Result Performing Organization Address [facility] Co de Phone Number [facility] [place] [address] * POCT glucose (07/31/2024 6:04 AM CDT) Glucose, POC 89 70 - 199 mg/dL Blood 07/31/2024 6:04 AM CDT 07/31/2024 6:04 AM CDT Nick Veliz MD LAB POCT ORDERABLES - DE VICE Final Result Performing Organization Address [facility] de Phone Number [facility] [place] [address] * POCT glucose (07/31/2024 5:26 AM CDT) Glucose, POC 105 70 - 199 mg/dL Blood 07/31/2024 5:26 AM CDT 07/31/2024 5:26 AM CDT Nick Veliz MD LAB POCT ORDERABLES - DE VICE Final Result Performing Organization Address [facility] Phone Number [facility] [place] [address] * Oxyhemoglobin, pulmonary artery (07/31/2024 5:25 AM CDT) Oxyhemoglobin, PA 62.0 % Comment: Interpretive Data No reference range established. Current interpretive data was last revised 2019. Blood 07/31/2024 5:25 AM CDT 07/31/2024 5:33 AM CDT Selvin Domínguez RADIOLOGICAL HEALTH SPECIALIST LAB BLOOD ORDERABLES Teetee l Result Performing Organization Address [facility] Co de Phone Number [facility] [place] [address] * (ABNORMAL) Hemoglobin total, pulmonary artery (07/31/2024 5:25 AM CDT) Hemoglobin total, PA 8.7(L) 13.0 - 17.5 g/dL Blood 07/31/2024 5:25 AM CDT 07/31/2024 5:33 AM CDT us Arabella Gary RADIOLOGICAL HEALTH SPECIALIST LAB BLOOD ORDERABLES Fi nal Result [facility] Department [place] [address] * (ABNORMAL) Lactate (07/31/2024 5:25 AM CDT) Pathologist [facility] Lactate 2.3(H) 0.7 - 2.0 mmol/L Blood 07/31/2024 5:25 AM CDT 07/31/2024 5:36 AM CDT Selvin Domínguez RADIOLOGICAL HEALTH SPECIALIST LAB BLOOD ORDERABLES Teetee l Result Performing Organization Address [facility] Co de Phone Number [facility] [place] [address] * (ABNORMAL) Blood gas, arterial (07/31/2024 5:25 AM CDT) pH, Art 7.46(H) 7.35 - 7.45 PCO2, Arterial 30(L) 35 - 45 mmHg [facility] PO2, Arterial 170(H) 83 - 108 mmHg [facility] HCO3 Art (Calculated) 22 20 - 30 mmol/L [facility] BE, art -2 mmol/L [facility] Comment: Interpretive Data No Reference Range Established Current Interpretive Data was last revised on 2017 O2 Sat Art (Measured) 100(H) 90 - 95 % [facility] Blood 07/31/2024 5:25 AM CDT 07/31/2024 5:32 AM CDT Selvin Domínguez RADIOLOGICAL HEALTH SPECIALIST LAB BLOOD ORDERABLES Teetee l Result Performing Organization Address City/[facility] Co de Phone Number [facility] [place] [address] * (ABNORMAL) POC Blood Gas and Chemistries, Arterial - (07/31/2024 4:15 AM CDT) pH, Art POC 7.42 7.35 - 7.45 pCO2, Art POC 33(L) 35 - 45 mmHg [facility] pO2, Art POC 173(H) 83 - 108 mmHg [facility] Na, POC 136 135 - 145 mmol/L [facility] K POC 4.5 3.3 - 4.9 mmol/L [facility] Comment: Interpretive Data Not all point of care methods assess for hemolysis. Confirm with instrument and retest K+ if not consistent with clinical signs and symptoms. Current Interpretive Data was last revised on 2023. Cl, POC 108 97 - 110 mmol/L [facility] Ionized Ca, POC 5.03 4.50 - 5.10 mg/dL [facility] Glucose, POC 126 70 - 199 mg/dL [facility] Lactate, POC 2.6(H) 0.7 - 2.0 mmol/L [facility] SO2 (vivian) arterial 98(H) 90 - 95 % [facility] Base excess, POC -2.6 mmol/L [facility] HCO3, Art POC 21 20 - 30 mmol/L [facility] Hct, POC 27.0(L) 41.4 - 51.6 % [facility] Total Hb, POC 9.0(L) 13.8 - 17.2 g/dL [facility] Blood 07/31/2024 4:15 AM CDT 07/31/2024 4:15 AM CDT Nick Veliz MD LAB POCT ORDERABLES - DE VICE Final Result [facility] Department [place] [address] * Calcium, ionized, whole blood (07/31/2024 3:54 AM CDT) Ca, ionized, bld 4.75 4.50 - 5.10 mg/dL Blood 07/31/2024 3:54 AM CDT 07/31/2024 4:00 AM CDT us Arabella Gary RADIOLOGICAL HEALTH SPECIALIST LAB BLOOD ORDERABLES Fi nal Result Performing Organization Address [facility] [place] [address] * Oxyhemoglobin, pulmonary artery (07/31/2024 3:48 AM CDT) Oxyhemoglobin, PA 68.1 % Comment: Interpretive Data No reference range established. Current interpretive data was last revised 2019. Blood 07/31/2024 3:48 AM CDT 07/31/2024 4:00 AM CDT Selvin Domínguez NP LAB BLOOD ORDERABLES Teetee l Result Performing Organization Address [facility] de Phone Number [facility] [place] [address] * (ABNORMAL) Lactate (07/31/2024 3:48 AM CDT) Lactate 3.0(H) 0.7 - 2.0 mmol/L Blood 07/31/2024 3:48 AM CDT 07/31/2024 4:03 AM CDT Selvin Domínguez RADIOLOGICAL HEALTH SPECIALIST LAB BLOOD ORDERABLES Teetee l Result Performing Organization Address [facility] Co de Phone Number [facility] [place] [place] [address] * Potassium, whole blood (07/31/2024 3:48 AM CDT) Potassium, bld 4.3 3.3 - 4.9 mmol/L Blood 07/31/2024 3:48 AM CDT 07/31/2024 4:00 AM CDT us Arabella Gary RADIOLOGICAL HEALTH SPECIALIST LAB BLOOD ORDERABLES Ed ited Result - Final [facility] [place] [address] * (ABNORMAL) CBC without differential (07/31/2024 3:48 AM CDT) Pathologist [facility] WBC 11.63(H) 3.80 - 9.90 K/cumm Hgb 8.9(L) 13.0 - 17.5 g/dL [facility] Hct 26.0(L) 38.9 - 50.3 % [facility] Plt 114(L) 150 - 400 K/cumm [facility] MPV 10.8 9.1 - 12.3 fL [facility] RBC 2.64(L) 4.30 - 5.80 M/cumm [facility] MCV 98.5(H) 81.3 - 96.4 fL [facility] Comment:spoke to Kate chase RN MCV delta due to apparent blood transfusion. MCH 33.7(H) 27.1 - 33.3 pg [facility] MCHC 34.2 32.3 - 35.7 g/dL [facility] RDW CV 15.0(H) 11.1 - 14.9 % [facility] RDW SD 54.6(H) 35.7 - 48.1 fL [facility] NRBC abs 0.00 0.00 - 0.01 K/cumm [facility] Blood 07/31/2024 3:48 AM CDT 07/31/2024 4:03 AM CDT us Arabella Gary RADIOLOGICAL HEALTH SPECIALIST LAB BLOOD ORDERABLES Fi nal Result [facility] Department [place] [address] * (ABNORMAL) Blood gas, arterial (07/31/2024 3:48 AM CDT) pH, Art 7.42 7.35 - 7.45 PCO2, Arterial 33(L) 35 - 45 mmHg [facility] PO2, Arterial 171(H) 83 - 108 mmHg [facility] HCO3 Art (Calculated) 22 20 - 30 mmol/L [facility] BE, art -2 mmol/L [facility] Comment: Interpretive Data No Reference Range Established Current Interpretive Data was last revised on 2017 O2 Sat Art (Measured) 100(H) 90 - 95 % [facility] Blood 07/31/2024 3:48 AM CDT 07/31/2024 4:00 AM CDT Selvin Domínguez NP LAB BLOOD ORDERABLES Teetee l Result [facility] [place] [address] * POCT glucose (07/31/2024 3:44 AM CDT) Glucose, POC 129 70 - 199 mg/dL Blood 07/31/2024 3:44 AM CDT 07/31/2024 3:44 AM CDT Nick Veliz MD LAB POCT ORDERABLES - DE VICE Final Result Performing Organization Address [facility] Co de Phone Number [facility] [place] [address] * Transfuse RBC (07/31/2024 3:37 AM CDT) Blood Arabella Gary NP BLOOD TRANSFUSION ORDER VAHID Final Result Performing Organization Address City/[facility]/ZIP Co de Phone Number [facility] [place] [address] * POCT glucose (07/31/2024 2:11 AM CDT) Glucose, POC 151 70 - 199 mg/dL Blood 07/31/2024 2:11 AM CDT 07/31/2024 2:11 AM CDT Nick Veliz MD LAB POCT ORDERABLES - DE VICE Final Result Performing Organization Address [facility] Co de Phone Number [facility] [place] [address] * POCT glucose (07/31/2024 1:08 AM CDT) Glucose, POC 161 70 - 199 mg/dL Blood 07/31/2024 1:08 AM CDT 07/31/2024 1:08 AM CDT Nick Veliz MD LAB POCT ORDERABLES - DE VICE Final Result Performing Organization Address [facility] Phone Number [facility] [place] [place] [address] * Oxyhemoglobin, central venous (07/30/2024 11:50 PM CDT) Oxyhemoglobin, CV 78.4 % Comment: Interpretive Data No reference range established. Current interpretive data was last revised 2019. Blood 07/30/2024 11:5 0 PM CDT 07/30/2024 11:56 PM CDT Selvin Domínguez RADIOLOGICAL HEALTH SPECIALIST LAB BLOOD ORDERABLES Teetee l Result Performing Organization Address [facility] Co de Phone Number [facility] [place] [place] [address] * Oxyhemoglobin, pulmonary artery (07/30/2024 11:50 PM CDT) Oxyhemoglobin, PA 73.1 % Comment: Interpretive Data No reference range established. Current interpretive data was last revised 2019. Blood 07/30/2024 11:5 0 PM CDT 07/30/2024 11:57 PM CDT Selvin Domínguez RADIOLOGICAL HEALTH SPECIALIST LAB BLOOD ORDERABLES Teetee l Result [facility] [place] [address] * (ABNORMAL) Lactate (07/30/2024 11:50 PM CDT) [facility] Lactate 6.4(C) 0.7 - 2.0 mmol/L Blood 07/30/2024 11:5 0 PM CDT 07/31/2024 12:19 AM CDT Marilee Sandoval RADIOLOGICAL HEALTH SPECIALIST LAB BLOOD ORDERABLES Fin al Result Performing Organization Address [facility] Co de Phone Number [facility] Department [place] [address] * Potassium, whole blood (07/30/2024 11:50 PM CDT) [facility] Potassium, bld 4.3 3.3 - 4.9 mmol/L Blood 07/30/2024 11:5 0 PM CDT 07/30/2024 11:56 PM CDT Arabella Gary RADIOLOGICAL HEALTH SPECIALIST LAB BLOOD ORDERABLES Ed ited Result - Final Performing Organization Address City/[facility] Co de Phone Number [facility] [place] [address] * (ABNORMAL) eGFR (07/30/2024 11:50 PM CDT) [facility] eGFR 54(L) >=60 mL/min/1. 73 m2 Comment: Interpretive Data [...] interpretive data was last reviewed 2021. Blood 07/30/2024 11:5 0 PM CDT 07/31/2024 12:20 AM CDT us Selvin Domínguez RADIOLOGICAL HEALTH SPECIALIST LAB BLOOD ORDERABLES Teetee l Result Performing Organization Address City/[facility]/ZIP Co de Phone Number [facility] Department [place] [address] * Critical Result Callback Chemistry (07/30/2024 11:50 PM CDT) Date Notified [id number] Time Notified 47 [facility] TestName Saturnino [facility] Called/Read Back Kim Torres [facility] Credentials GABBY [facility] Called By [facility] Blood 07/30/2024 11:5 0 PM CDT 07/31/2024 12:19 AM CDT us Marilee Sandoval RADIOLOGICAL HEALTH SPECIALIST LAB BLOOD ORDERABLES Fin al Result Performing Organization Address City/[facility]/ZIP Co de Phone Number [facility] Department [place] [address] * (ABNORMAL) CBC without differential (07/30/2024 11:50 PM CDT) WBC 14.50(H) 3.80 - 9.90 K/cumm Hgb 7.8(L) 13.0 - 17.5 g/dL [facility] Hct 23.0(L) 38.9 - 50.3 % [facility] Plt 114(L) 150 - 400 K/cumm [facility] MPV 11.0 9.1 - 12.3 fL [facility] RBC 2.21(L) 4.30 - 5.80 M/cumm [facility] MCV 104.1(H) 81.3 - 96.4 fL [facility] MCH 35.3(H) 27.1 - 33.3 pg [facility] MCHC 33.9 32.3 - 35.7 g/dL [facility] RDW CV 13.4 11.1 - 14.9 % [facility] RDW SD 51.2(H) 35.7 - 48.1 fL [facility] NRBC abs 0.00 0.00 - 0.01 K/cumm [facility] Blood 07/30/2024 11:5 0 PM CDT 07/31/2024 12:19 AM CDT Selvin Domínguez RADIOLOGICAL HEALTH SPECIALIST LAB BLOOD ORDERABLES Teetee l Result Performing Organization Address City/[facility]/ZIP Co de Phone Number [facility] Department [place] [address] * Phosphorus (07/30/2024 11:50 PM CDT) [facility] Phosphorus, pl 3.0 2.3 - 4.5 mg/dL Blood 07/30/2024 11:5 0 PM CDT 07/31/2024 12:09 AM CDT Selvin Domínguez RADIOLOGICAL HEALTH SPECIALIST LAB BLOOD ORDERABLES Teetee l Result [facility] [place] [address] * Magnesium (07/30/2024 11:50 PM CDT) Magnesium 2.4 1.4 - 2.5 mg/dL Blood 07/30/2024 11:5 0 PM CDT 07/31/2024 12:09 AM CDT Selvin Domínguez RADIOLOGICAL HEALTH SPECIALIST LAB BLOOD ORDERABLES Teetee l Result Performing Organization Address [facility] Co de Phone Number [facility] Department [place] [address] * (ABNORMAL) Lactate dehydrogenase (LD) (07/30/2024 11:50 PM CDT) Pathologist [facility] Lactate dehydrogenase (LDH) 505(H) 100 - 250 Units/L Blood 07/30/2024 11:5 0 PM CDT 07/31/2024 12:20 AM CDT Nick Veliz MD LAB BLOOD ORDERABLES Fin al Result Performing Organization Address [facility] de Phone Number [facility] Department [place] [address] * (ABNORMAL) Blood gas, arterial (07/30/2024 11:50 PM CDT) Pathologist [facility] pH, Art 7.36 7.35 - 7.45 PCO2, Arterial 34(L) 35 - 45 mmHg [facility] PO2, Arterial 166(H) 83 - 108 mmHg [facility] HCO3 Art (Calculated) 20 20 - 30 mmol/L [facility] BE, art -6 mmol/L [facility] Comment: Interpretive Data No Reference Range Established Current Interpretive Data was last revised on 2017 O2 Sat Art (Measured) 100(H) 90 - 95 % [facility] Blood 07/30/2024 11:5 0 PM CDT 07/30/2024 11:56 PM CDT Selvin Domínguez NP LAB BLOOD ORDERABLES Teetee l Result Performing Organization Address [facility]/ZIP Co de Phone Number [facility] [place] [address] * (ABNORMAL) Hepatic function panel (07/30/2024 11:50 PM CDT) [facility] Bilirubin, total 0.9 0.1 - 1.2 mg/dL Bilirubin, direct 0.4(H) 0.1 - 0.3 mg/dL [facility] Protein, pl 5.2(L) 6.5 - 8.5 g/dL [facility] Albumin 3.6 3.5 - 5.0 g/dL [facility] Alk phos 31(L) 40 - 130 Units/L [facility] ALT 18 7 - 55 Units/L [facility] AST 134(H) 10 - 50 Units/L [facility] Blood 07/30/2024 11:5 0 PM CDT 07/31/2024 12:20 AM CDT [facility] BLOOD ORDERABLES [facility] al Result [facility] Department [place] [address] * (ABNORMAL) Basic metabolic panel (07/30/2024 11:50 PM CDT) [facility] Sodium 138 135 - 145 mmol/L Potassium, pl 4.4 3.3 - 4.9 mmol/L [facility] Chloride 105 97 - 110 mmol/L [facility] CO2 21(L) 22 - 32 mmol/L [facility] Anion gap 12 2 - 15 mmol/L [facility] BUN 24 6 - 25 mg/dL [facility] Creatinine 1.38(H) 0.80 - 1.30 mg/dL [facility] Glucose 166 70 - 199 mg/dL [facility] Comment: Interpretive Data Fasting glucose >/= [...] interpretive data was last revised 2022. Calcium 9.0 8.5 - 10.3 mg/dL [facility] Blood 07/30/2024 11:5 0 PM CDT 07/31/2024 12:09 AM CDT Selvin Domínguez RADIOLOGICAL HEALTH SPECIALIST LAB BLOOD ORDERABLES Teetee l Result Performing Organization Address City/[facility]/ZIP Co de Phone Number [facility] Department [place] [address] * POCT glucose (07/30/2024 11:49 PM CDT) Glucose, POC 167 70 - 199 mg/dL Blood 07/30/2024 11:4 9 PM CDT 07/30/2024 11:49 PM CDT Nick Veliz MD LAB POCT ORDERABLES - DE VICE Final Result Performing Organization Address City/[facility]/ZIP Co de Phone Number [facility] Department [place] [address] * POCT glucose (07/30/2024 11:04 PM CDT) Glucose, POC 147 70 - 199 mg/dL Blood 07/30/2024 11:0 4 PM CDT 07/30/2024 11:04 PM CDT Nick Veliz MD LAB POCT ORDERABLES - DE VICE Final Result Performing Organization Address City/[facility]/ZIP Co de Phone Number [facility] Department [place] [address] * Oxyhemoglobin, pulmonary artery (07/30/2024 9:42 PM CDT) Pathologist [facility] Oxyhemoglobin, PA 76.6 % Comment: Interpretive Data No reference range established. Current interpretive data was last revised 2019. Blood 07/30/2024 9:42 PM CDT 07/30/2024 9:48 PM CDT Selvin Domínguez RADIOLOGICAL HEALTH SPECIALIST LAB BLOOD ORDERABLES Teetee l Result Performing Organization Address City/[facility]/ZIP Co de Phone Number [facility] Department [place] [address] * (ABNORMAL) Hemoglobin total, pulmonary artery (07/30/2024 9:42 PM CDT) Pathologist [facility] Hemoglobin total, PA 7.9(L) 13.0 - 17.5 g/dL Blood 07/30/2024 9:42 PM CDT 07/30/2024 9:48 PM CDT Arabella Gary RADIOLOGICAL HEALTH SPECIALIST LAB BLOOD ORDERABLES Fi nal Result Performing Organization Address [facility] Co de Phone Number [facility] [place] [address] * (ABNORMAL) Blood gas, arterial (07/30/2024 9:42 PM CDT) Pathologist [facility] pH, Art 7.37 7.35 - 7.45 PCO2, Arterial 32(L) 35 - 45 mmHg [facility] PO2, Arterial 158(H) 83 - 108 mmHg [facility] HCO3 Art (Calculated) 19(L) 20 - 30 mmol/L [facility] BE, art -6 mmol/L [facility] Comment: Interpretive Data No Reference Range Established Current Interpretive Data was last revised on 2017 O2 Sat Art (Measured) 100(H) 90 - 95 % [facility] Blood 07/30/2024 9:42 PM CDT 07/30/2024 9:47 PM CDT Selvin Domínguez RADIOLOGICAL HEALTH SPECIALIST LAB BLOOD ORDERABLES Teetee l Result [facility] Department [place] [address] * (ABNORMAL) POC Blood Gas and Chemistries, Arterial - (07/30/2024 9:30 PM CDT) pH, Art POC 7.35 7.35 - 7.45 pCO2, Art POC 33(L) 35 - 45 mmHg [facility] pO2, Art POC 165(H) 83 - 108 mmHg [facility] Na, POC 137 135 - 145 mmol/L [facility] K POC 3.8 3.3 - 4.9 mmol/L [facility] Comment: Interpretive Data Not all point of care methods assess for hemolysis. Confirm with instrument and retest K+ if not consistent with clinical signs and symptoms. Current Interpretive Data was last revised on 2023. Cl, POC 107 97 - 110 mmol/L [facility] Ionized Ca, POC 5.14(H) 4.50 - 5.10 mg/dL [facility] Glucose, POC 171 70 - 199 mg/dL [facility] Lactate, POC 6.3(C) 0.7 - 2.0 mmol/L [facility] SO2 (vivian) arterial 100(H) 90 - 95 % [facility] Base excess, POC -6.7 mmol/L [facility] HCO3, Art POC 18(L) 20 - 30 mmol/L [facility] Hct, POC 27.0(L) 41.4 - 51.6 % [facility] Total Hb, POC 9.1(L) 13.8 - 17.2 g/dL [facility] Blood 07/30/2024 9:30 PM CDT 07/30/2024 9:30 PM CDT Nick Veliz MD LAB POCT ORDERABLES - DE VICE Final Result [facility] [place] [address] * POCT glucose (07/30/2024 9:09 PM CDT) Glucose, POC 180 70 - 199 mg/dL Blood 07/30/2024 9:09 PM CDT 07/30/2024 9:09 PM CDT Nick Veliz MD LAB POCT ORDERABLES - [place] [address] * Transfuse RBC (07/30/2024 8:25 PM CDT) Blood Marilee Sandoval RADIOLOGICAL HEALTH SPECIALIST BLOOD TRANSFUSION ORDERA BLES Final Result [facility] [place] [address] * Potassium, whole blood (07/30/2024 8:17 PM CDT) [facility] Potassium, bld 3.9 3.3 - 4.9 mmol/L Blood 07/30/2024 8:17 PM CDT 07/30/2024 8:22 PM CDT Arabella Gary RADIOLOGICAL HEALTH SPECIALIST LAB BLOOD ORDERABLES Fi nal Result [facility] [place] [place] [address] * POCT glucose (07/30/2024 8:16 PM CDT) Glucose, POC 187 70 - 199 mg/dL Blood 07/30/2024 8:16 PM CDT 07/30/2024 8:16 PM CDT Nick Veliz MD LAB POCT ORDERABLES - DE VICE Final Result Performing Organization Address City/[facility] Co de Phone Number [facility] [place] [address] * Hemoglobin, plasma (07/30/2024 7:20 PM CDT) Hemoglobin, Plasma 30 <=50 mg/dL Blood 07/30/2024 7:20 PM CDT 07/30/2024 7:39 PM CDT Marilee Sandoval NP LAB BLOOD ORDERABLES Fin al Result Performing Organization Address [facility] Co de Phone Number [facility] Department [place] [address] * Critical Care (07/30/2024 6:57 PM CDT) Narrative Rebecca Alsotn MD - 07/30/2024 6:57 PM CDT Rebecca Alston MD 07/31/2024 11:07 AM Critical Care Performed by: Arabella Gary NP Authorized by: Arabella Gary NP CRITICAL CARE: Team: 56 CTICU Shift: PM Level of Billing: Critical Care My time spent with this patient was 85 minutes: Critical Provider Statement: I have seen and examined the patient on this day of service. I have reviewed and confirmed the history, physical exam, laboratory and radiologic data as documented in the signed ICU note. I have reviewed and discussed my treatment plan with the ICU team and other medical/production consultant staff, making frequent assessments and decisions regarding this patient's complex medical care. Critical Care time was exclusive of time spent performing separately billed procedures, treating other patients, and teaching. This time was in addition to and separate from critical care provided by other practitioners in my group on this day of service. Critical Care was necessary to treat or prevent imminent or life-threatening deterioration of the following conditions: I spent time reviewing and interpreting data from bedside monitors, laboratory results, and imaging, I spent time discussing the management of this critically ill patient with consultants and the medical staff and I spent time documenting in the medical record us Arabella Gary NP IN CLINIC/BEDSIDE ORDER VAHID Final Result * POCT glucose (07/30/2024 6:56 PM CDT) Glucose, POC 185 70 - 199 mg/dL Blood 07/30/2024 6:56 PM CDT 07/30/2024 6:56 PM CDT Nick Veliz MD LAB POCT ORDERABLES - DE VICE Final Result Performing Organization Address [facility] Co de Phone Number [facility] [place] [place] [address] * Prepare RBC: 1 Units (07/30/2024 6:13 PM CDT) [facility] Product code [id number] Unit Number [id number] [facility] Product Blood Type APOS [facility] Dispense Status PRESUMED TRANSFUSED [facility] Blood 07/30/2024 6:13 PM CDT 07/30/2024 6:13 PM CDT Narrative [facility] - 07/31/2024 4:00 PM CDT Are special requirements needed? (All products are leukoreduced and CMV- safe)- >No Date required:-[id number] LRRBC # of [id number] Reasons:-Cardiovascular disease, Hgb <8 g/dL} Marilee Sandoval NP BLOOD BANK PRODUCT ORDER VAHID Final Result Performing Organization Address City/[facility]/ZIP Co de Phone Number [facility] [place] [place] [address] * POCT glucose (07/30/2024 6:08 PM CDT) Glucose, POC 165 70 - 199 mg/dL Blood 07/30/2024 6:08 PM CDT 07/30/2024 6:08 PM CDT Nick Veliz MD LAB POCT ORDERABLES - DE VICE Final Result [facility] [place] [address] * XR Chest 1 View (07/30/2024 6:00 PM CDT) Anatomical Region Laterality Modality Body, Chest N/A Computed Radiogr aphy 07/31/2024 9:25 AM CDT Impressions 07/31/2024 2:22 PM CDT The current study is compared with the prior radiograph dated 07/25/2024 Tracheal tube terminates approximately seven centimeters above the emmanuel emmanuel. The patient is status post a median sternotomy, mediastinal wires are aligned. An Impella device is in place. Left atrial appendage clip is present. Feeding tube terminates below the diaphragm. Epicardial pacing wires are noted. Bilateral thoracostomy catheters are present. Mild bibasilar atelectasis. No pneumothorax. Cardiac and mediastinal contours are normal. Dictated by: Gabriel Singh MD The radiology attending physician has personally reviewed this study, and had reviewed and/or edited this written report and agrees with it. Electronically signed by: Maury Jaeger M.D. Narrative 07/31/2024 2:22 PM CDT EXAMINATION: 1 view chest radiograph Procedure Note Maury Jaeger MD - 07/31/2024 EXAMINATION: 1 view chest radiograph IMPRESSION: The current study is compared with the prior radiograph dated 07/25/2024 Tracheal tube terminates approximately seven centimeters above the emmanuel emmanuel. The patient is status post a median sternotomy, mediastinal wires are aligned. An Impella device is in place. Left atrial appendage clip is present. Feeding tube terminates below the diaphragm. Epicardial pacing wires are noted. Bilateral thoracostomy catheters are present. Mild bibasilar atelectasis. No pneumothorax. Cardiac and mediastinal contours are normal. Dictated by: Gabriel Singh MD The radiology attending physician has personally reviewed this study, and had reviewed and/or edited this written report and agrees with it. Electronically signed by: aMury Jaeger M.D. Nick Pippa Veliz MD IMG XR PROCEDURES Final Result * XR Abdomen AP 1 View - KUB (07/30/2024 6:00 PM CDT) Anatomical Region Laterality Modality Body, Abdomen N/A Computed Radiogr aphy 07/31/2024 9:08 AM CDT Impressions 07/31/2024 9:13 AM CDT The gastric tube is positioned with tip in the gastric body, side-port in the gastric cardia. An Impella device is in place. Left atrial appendage clip. Aortic valve replacement. Median sternotomy wires. Clyde-Clair catheter position with tip in the main pulmonary artery. Epicardial pacing wires. Pericardial and mediastinal drains. Bilateral thoracostomy tubes. Dictated by: Fernanda Levi M.D. The radiology attending physician has personally reviewed this study, and had reviewed and/or edited this written report and agrees with it. Electronically signed by: Daja Dozier M.D. Narrative 07/31/2024 9:13 AM CDT EXAMINATION: Abdomen, one view. HISTORY: 73-year-old man, gastric tube placement. Currently hospitalized after heart surgery and 07/30/2024. COMPARISON: No prior abdominal radiograph available for comparison. Correlation made to most recent CT dated 06/21/2024. Procedure Note Daja Dozier MD - 07/31/2024 EXAMINATION: Abdomen, one view. HISTORY: 73-year-old man, gastric tube placement. Currently hospitalized after heart surgery and 07/30/2024. COMPARISON: No prior abdominal radiograph available for comparison. Correlation made to most recent CT dated 06/21/2024. IMPRESSION: The gastric tube is positioned with tip in the gastric body, side-port in the gastric cardia. An Impella device is in place. Left atrial appendage clip. Aortic valve replacement. Median sternotomy wires. Clyde-Clair catheter position with tip in the main pulmonary artery. Epicardial pacing wires. Pericardial and mediastinal drains. Bilateral thoracostomy tubes. Dictated by: Fernanda Levi M.D. The radiology attending physician has personally reviewed this study, and had reviewed and/or edited this written report and agrees with it. Electronically signed by: Daja Dozier M.D. us Selvin Domínguez NP IMG XR PROCEDURES Final R esult * (ABNORMAL) eGFR (07/30/2024 5:36 PM CDT) eGFR 55(L) >=60 mL/min/1. 73 m2 Comment: Interpretive Data [...] interpretive data was last reviewed 2021. Blood 07/30/2024 5:36 PM CDT 07/30/2024 5:55 PM CDT us Selvin Domínguez NP LAB BLOOD ORDERABLES Teetee l Result [facility] [place] [address] * (ABNORMAL) CBC without differential (07/30/2024 5:36 PM CDT) WBC 21.35(H) 3.80 - 9.90 K/cumm Hgb 7.8(L) 13.0 - 17.5 g/dL [facility] Comment:Hemoglobin delta due to apparent blood transfusion. Hct 23.6(L) 38.9 - 50.3 % [facility] Plt 129(L) 150 - 400 K/cumm [facility] Comment:No clot detected in sample. MPV 10.9 9.1 - 12.3 fL [facility] RBC 2.19(L) 4.30 - 5.80 M/cumm [facility] MCV 107.8(H) 81.3 - 96.4 fL [facility] MCH 35.6(H) 27.1 - 33.3 pg [facility] MCHC 33.1 32.3 - 35.7 g/dL [facility] RDW CV 12.3 11.1 - 14.9 % [facility] RDW SD 48.5(H) 35.7 - 48.1 fL [facility] NRBC abs 0.00 0.00 - 0.01 K/cumm [facility] Blood 07/30/2024 5:36 PM CDT 07/30/2024 5:55 PM CDT Selvin Domínguez RADIOLOGICAL HEALTH SPECIALIST LAB BLOOD ORDERABLES Teetee keith Result [facility] [place] [address] * Type and screen (07/30/2024 5:36 PM CDT) Pathologist [facility] ABO Rh A Positive Kumar, indirect Negative [facility] Blood 07/30/2024 5:36 PM CDT 07/30/2024 5:56 PM CDT Narrative [facility] - 07/30/2024 7:37 PM CDT Has the patient had Daratumumab or Isatuximab in the past 6 months?->Unknown Nick Veliz MD LAB BLOOD BANK TEST MARY ANNE MAYES Final Result Performing Organization Address [facility] Co de Phone Number [facility] [place] [address] * (ABNORMAL) Phosphorus (07/30/2024 5:36 PM CDT) Phosphorus, pl 4.6(H) 2.3 - 4.5 mg/dL Blood 07/30/2024 5:36 PM CDT 07/30/2024 5:43 PM CDT Selvin Domínguez RADIOLOGICAL HEALTH SPECIALIST LAB BLOOD ORDERABLES Teetee l Result Performing Organization Address [facility] [place] [address] * Magnesium (07/30/2024 5:36 PM CDT) [facility] Magnesium 2.5 1.4 - 2.5 mg/dL Blood 07/30/2024 5:36 PM CDT 07/30/2024 5:43 PM CDT Selvin Domínguez RADIOLOGICAL HEALTH SPECIALIST LAB BLOOD ORDERABLES Teetee l Result Performing Organization Address [facility] Co de Phone Number [facility] [place] [place] [address] * (ABNORMAL) Lactate dehydrogenase (LD) (07/30/2024 5:36 PM CDT) Lactate dehydrogenase (LDH) 550(H) 100 - 250 Units/L Blood 07/30/2024 5:36 PM CDT 07/30/2024 5:43 PM CDT Nick Veliz MD LAB BLOOD ORDERABLES Fin al Result Performing Organization Address City/[facility] Co de Phone Number [facility] [place] [address] * (ABNORMAL) Hepatic function panel (07/30/2024 5:36 PM CDT) Pathologist [facility] Bilirubin, total 1.5(H) 0.1 - 1.2 mg/dL Bilirubin, direct 0.6(H) 0.1 - 0.3 mg/dL [facility] Protein, pl 5.5(L) 6.5 - 8.5 g/dL [facility] Albumin 3.4(L) 3.5 - 5.0 g/dL [facility] Alk phos 33(L) 40 - 130 Units/L [facility] ALT 22 7 - 55 Units/L [facility] AST 161(H) 10 - 50 Units/L [facility] Comment:Reviewed Blood 07/30/2024 5:36 PM CDT 07/30/2024 5:43 PM CDT Nick Veliz MD LAB BLOOD ORDERABLES Fin al Result [facility] [place] [address] * (ABNORMAL) Basic metabolic panel (07/30/2024 5:36 PM CDT) [facility] Sodium 137 135 - 145 mmol/L Potassium, pl 3.9 3.3 - 4.9 mmol/L [facility] Chloride 102 97 - 110 mmol/L [facility] CO2 22 22 - 32 mmol/L [facility] Anion gap 13 2 - 15 mmol/L [facility] BUN 22 6 - 25 mg/dL [facility] Creatinine 1.36(H) 0.80 - 1.30 mg/dL [facility] Glucose 180 70 - 199 mg/dL [facility] Comment: Interpretive Data Fasting glucose >/= [...] interpretive data was last revised 2022. Calcium 9.1 8.5 - 10.3 mg/dL [facility] Blood 07/30/2024 5:36 PM CDT 07/30/2024 5:43 PM CDT us Selvin Domínguez RADIOLOGICAL HEALTH SPECIALIST LAB BLOOD ORDERABLES Teetee keith Result [facility] [place] [address] * (ABNORMAL) POC Blood Gas and Chemistries, Arterial - (07/30/2024 5:20 PM CDT) pH, Art POC 7.32(L) 7.35 - 7.45 pCO2, Art POC 40 35 - 45 mmHg [facility] pO2, Art POC 303(H) 83 - 108 mmHg [facility] Na, POC 137 135 - 145 mmol/L [facility] K POC 3.8 3.3 - 4.9 mmol/L [facility] Comment: Interpretive Data Not all point of care methods assess for hemolysis. Confirm with instrument and retest K+ if not consistent with clinical signs and symptoms. Current Interpretive Data was last revised on 2023. Cl, POC 106 97 - 110 mmol/L [facility] Ionized Ca, POC 4.81 4.50 - 5.10 mg/dL [facility] Glucose, POC 172 70 - 199 mg/dL [facility] Lactate, POC 4.0(C) 0.7 - 2.0 mmol/L [facility] SO2 (vivian) arterial 100(H) 90 - 95 % [facility] Base excess, POC -5.1 mmol/L [facility] HCO3, Art POC 21 20 - 30 mmol/L [facility] Hct, POC 26.0(L) 41.4 - 51.6 % [facility] Total Hb, POC 8.5(L) 13.8 - 17.2 g/dL [facility] Blood 07/30/2024 5:20 PM CDT 07/30/2024 5:20 PM CDT Nick Veliz MD LAB POCT ORDERABLES - DE VICE Final Result Performing Organization Address [facility] Co de Phone Number [facility] [place] [address] * aPTT (07/30/2024 5:09 PM CDT) aPTT 32 28 - 38 sec Comment: Interpretive Data Heparin therapeutic range: 66.0 - 100.0 seconds. Range based on correlation with therapeutic heparin activity range of 0.3 - 0.7 Units/mL. Current interpretive data was last revised on 2023. Blood 07/30/2024 5:09 PM CDT 07/30/2024 5:48 PM CDT Selvin Domínguez RADIOLOGICAL HEALTH SPECIALIST LAB BLOOD ORDERABLES Teetee l Result Performing Organization Address [facility] Co de Phone Number [facility] [place] [address] * (ABNORMAL) Protime-INR (07/30/2024 5:09 PM CDT) PT 16.5(H) 9.7 - 13.0 sec INR 1.51(H) 0.90 - 1.20 [facility] Comment: Interpretive data Oral anticoagulant therapeutic ranges: Venous thromboembolism prophylaxis or treatment: 2.0-3.0 CARDIOLOGY Standard range: 2.0-3.0 High-intensity range: 2.5-3.5 Refer to indication-specific guidelines for appropriate target ranges for prosthetic heart valve replacement. Current interpretive data was last revised on 2019. Blood 07/30/2024 5:09 PM CDT 07/30/2024 5:48 PM CDT Selvin Domínguez NP LAB BLOOD ORDERABLES Teetee keith Result [facility] [place] [address] * Critical Care (07/30/2024 5:00 PM CDT) Narrative Rebecca Alston MD - 07/30/2024 5:00 PM CDT Rebecca Alston MD 07/31/2024 11:07 AM Critical Care Performed by: Marilee Sandoval NP Authorized by: Marilee Sandoval NP CRITICAL CARE: Team: [facility] Shift: AM Level of Billing: Critical Care My time spent with this patient was 120 minutes: Critical Provider Statement: I have seen and examined the patient on this day of service. I have reviewed and confirmed the history, physical exam, laboratory and radiologic data as documented in the signed ICU note. I have reviewed and discussed my treatment plan with the ICU team and other medical/production consultant staff, making frequent assessments and decisions regarding this patient's complex medical care. Critical Care time was exclusive of time spent performing separately billed procedures, treating other patients, and teaching. This time was in addition to and separate from critical care provided by other practitioners in my group on this day of service. Critical Care was necessary to treat or prevent imminent or life-threatening deterioration of the following conditions: I spent time reviewing and interpreting data from bedside monitors, laboratory results, and imaging, I spent time discussing the management of this critically ill patient with consultants and the medical staff and I spent time documenting in the medical record us Marilee Sandoval NP IN CLINIC/BEDSIDE ORDERA BLES Final Result * ABLATE ADDTL ARRHYTHMIA ATRIA OR VENT (07/30/2024 4:56 PM CDT) Anatomical Region Laterality Modality X-Ray Angiograph y Narrative 07/30/2024 5:30 PM CDT Please see OpNote for result. us Nick Veliz MD CV ELECTROPHYSIOLOGY PRO CS Final Result * Transfuse plasma (07/30/2024 4:49 PM CDT) Blood Abhi Martinez MD BLOOD TRANSFUSION OR DERABLES Final Result Performing Organization Address [facility] Co de Phone Number [facility] [place] [address] * Transfuse platelets (07/30/2024 4:47 PM CDT) Blood Abhi Martinez MD BLOOD TRANSFUSION OR DERABLES Final Result Performing Organization Address [facility] de Phone Number [facility] [place] [place] [address] * (ABNORMAL) POCT prothrombin time (07/30/2024 4:30 PM CDT) PT, POC 28.1(H) 11.7 - 16.6 sec INR, POC 2.2(H) 0.9 - 1.2 [facility] Blood 07/30/2024 4:30 PM CDT 07/30/2024 4:30 PM CDT Nick Veliz MD LAB POCT ORDERABLES - DE VICE Final Result Performing Organization Address [facility] Phone Number [facility] [place] [address] * (ABNORMAL) POCT Partial thromboplastin time (PTT) (07/30/2024 4:30 PM CDT) APTT, POC 48.8(H) 32.5 - 46.1 sec Blood 07/30/2024 4:30 PM CDT 07/30/2024 4:30 PM CDT Nick Veliz MD LAB POCT ORDERABLES - DE VICE Final Result Performing Organization Address [facility]/State/[facility] Co de Phone Number [facility] [place] [address] * (ABNORMAL) POCT hemoglobin, hematocrit and platelet count (07/30/2024 4:29 PM CDT) Pathologist [facility] Hgb, POC 8.7(L) 13.0 - 17.5 g/dL Hematocrit POC 26.7(L) 38.9 - 50.3 % [facility] Platelet POC 128(L) 150 - 400 K/cumm [facility] Blood 07/30/2024 4:29 PM CDT 07/30/2024 4:29 PM CDT Nick Veliz MD LAB POCT ORDERABLES - DE VICE Final Result Performing Organization Address [facility] [place] [address] * Prepare platelets: 1 Units (07/30/2024 4:26 PM CDT) [facility] Product code [id number] Unit Number [id number] [facility] Product Blood Type APOS [facility] Dispense Status PRESUMED TRANSFUSED [facility] Blood Venous blood specimen / Unknown 07/30/2024 4:26 PM CDT 07/30/2024 4:26 PM CDT Narrative [facility] - 07/31/2024 8:02 AM CDT Specify Procedure:->cardiac surgery Are special requirements needed? (all products are leukoreduced)->No Date required:-[id number] PLT # of Units:-1-Units Reasons:-Hold for procedure (specify procedure)} Abhi Martinez MD BLOOD BANK PRODUCT O RDERABLES Final Result Performing Organization Address City/[facility] [place] [address] * Prepare plasma: 1 Units (07/30/2024 4:26 PM CDT) [facility] Product code [id number] Unit Number [id number] [facility] Product Blood Type APOS [facility] Dispense Status PRESUMED TRANSFUSED [facility] Blood Venous blood specimen / Unknown 07/30/2024 4:26 PM CDT 07/30/2024 4:26 PM CDT Narrative [facility] - 07/31/2024 8:02 AM CDT Date required:-[id number] FFP # of Units:-1-Units Reasons:-Immediate need for surgical intervention Abhi Martinez MD BLOOD BANK PRODUCT O RDERABLES Final Result [facility] [place] [address] * POCT glucose (07/30/2024 3:51 PM CDT) [facility] Glucose, POC 185 70 - 199 mg/dL Blood 07/30/2024 3:51 PM CDT 07/30/2024 3:51 PM CDT Nick Veliz MD LAB POCT ORDERABLES - DE VICE Final Result Performing Organization Address City/[facility]/ZIP Co de Phone Number [facility] Department [place] [address] * (ABNORMAL) POC Blood Gas and Chemistries, Arterial - (07/30/2024 3:51 PM CDT) [facility] pH, Art POC 7.29(L) 7.35 - 7.45 pCO2, Art POC 42 35 - 45 mmHg [facility] pO2, Art POC 329(H) 83 - 108 mmHg [facility] Na, POC 136 135 - 145 mmol/L [facility] K POC 3.8 3.3 - 4.9 mmol/L [facility] Comment: Interpretive Data Not all point of care methods assess for hemolysis. Confirm with instrument and retest K+ if not consistent with clinical signs and symptoms. Current Interpretive Data was last revised on 2023. Cl, POC 109 97 - 110 mmol/L [facility] Ionized Ca, POC 4.51 4.50 - 5.10 mg/dL [facility] Glucose, POC Incalculable 70 - 199 mg/dL [facility] Lactate, POC 3.1(H) 0.7 - 2.0 mmol/L [facility] SO2 (vivian) arterial 100(H) 90 - 95 % [facility] Base excess, POC -6.0 mmol/L [facility] HCO3, Art POC 20 20 - 30 mmol/L [facility] Hct, POC 29.0(L) 41.4 - 51.6 % [facility] Total Hb, POC 9.8(L) 13.8 - 17.2 g/dL [facility] Blood 07/30/2024 3:51 PM CDT 07/30/2024 3:51 PM CDT Nick Veliz MD LAB POCT ORDERABLES - DE VICE Final Result Performing Organization Address [facility] Co de Phone Number [facility] [place] [address] * Transfuse cryoprecipitate (pooled units) (07/30/2024 3:35 PM CDT) Blood Abhi Martinez MD BLOOD TRANSFUSION OR DERABLES Final Result [facility] [place] [address] * Transfuse cryoprecipitate (pooled units) (07/30/2024 3:35 PM CDT) Blood Abhi Martinez MD BLOOD TRANSFUSION OR DERABLES Final Result Performing Organization Address City/[facility]/ZIP Co de Phone Number [facility] [place] [address] * Prepare cryoprecipitate (pooled units): 2 Units (07/30/2024 3:11 PM CDT) [facility] Product code [id number] Unit Number [id number] [facility] Product Blood Type APOS [facility] Dispense Status PRESUMED TRANSFUSED [facility] Product code [id number] [facility] Unit Number [id number] [facility] Product Blood Type APOS [facility] Dispense Status PRESUMED TRANSFUSED [facility] Blood Venous blood specimen / Unknown 07/30/2024 3:11 PM CDT 07/30/2024 3:11 PM CDT Narrative [facility] - 07/31/2024 8:02 AM CDT Other indication->post bypass Cryo # of [id number] Reasons:-Other (Specify)} Abhi Martinez MD BLOOD BANK PRODUCT O RDERABLES Final Result [facility] [place] [address] * (ABNORMAL) POC Blood Gas and Chemistries, Arterial - (07/30/2024 2:56 PM CDT) [facility] pH, Art POC 7.32(L) 7.35 - 7.45 pCO2, Art POC 40 35 - 45 mmHg [facility] pO2, Art POC 430(H) 83 - 108 mmHg [facility] Na, POC 135 135 - 145 mmol/L [facility] K POC 3.9 3.3 - 4.9 mmol/L [facility] Comment: Interpretive Data Not all point of care methods assess for hemolysis. Confirm with instrument and retest K+ if not consistent with clinical signs and symptoms. Current Interpretive Data was last revised on 2023. Cl, POC 108 97 - 110 mmol/L [facility] Ionized Ca, POC 4.70 4.50 - 5.10 mg/dL [facility] Glucose, POC Incalculable 70 - 199 mg/dL [facility] Lactate, POC 2.9(H) 0.7 - 2.0 mmol/L [facility] SO2 (vivian) arterial 100(H) 90 - 95 % [facility] Base excess, POC -5.1 mmol/L [facility] HCO3, Art POC 21 20 - 30 mmol/L [facility] Hct, POC 33.0(L) 41.4 - 51.6 % [facility] Total Hb, POC 10.9(L) 13.8 - 17.2 g/dL [facility] Blood 07/30/2024 2:56 PM CDT 07/30/2024 2:56 PM CDT Nick Veliz MD LAB POCT ORDERABLES - DE VICE Final Result Performing Organization Address [facility]/ZIP Co de Phone Number [facility] [place] [address] * (ABNORMAL) POCT prothrombin time (07/30/2024 2:27 PM CDT) PT, POC 34.3(H) 11.7 - 16.6 sec INR, POC 2.6(H) 0.9 - 1.2 [facility] Blood 07/30/2024 2:27 PM CDT 07/30/2024 2:27 PM CDT Nick Veliz MD LAB POCT ORDERABLES - DE VICE Final Result Performing Organization Address City/[facility]/ZIP Co de Phone Number [facility] [place] [address] * (ABNORMAL) POCT heparin/ACT CPB (07/30/2024 2:26 PM CDT) Heparin POC 0.0 units/mL ACT, CPB 110(L) 112 - 174 sec [facility] Blood 07/30/2024 2:26 PM CDT 07/30/2024 2:26 PM CDT Nick Veliz MD LAB POCT ORDERABLES - DE VICE Final Result Performing Organization Address [facility] Co de Phone Number [facility] [place] [address] * POCT Partial thromboplastin time (PTT) (07/30/2024 2:26 PM CDT) APTT, POC 36.6 32.5 - 46.1 sec Blood 07/30/2024 2:26 PM CDT 07/30/2024 2:26 PM CDT Nick Veliz MD LAB POCT ORDERABLES - DE VICE Final Result Performing Organization Address [facility] Co de Phone Number [facility] [place] [address] * POCT glucose (07/30/2024 2:26 PM CDT) Glucose, POC 177 70 - 199 mg/dL Blood 07/30/2024 2:26 PM CDT 07/30/2024 2:26 PM CDT Nick Veliz MD LAB POCT ORDERABLES - DE VICE Final Result Performing Organization Address [facility] [place] [address] * (ABNORMAL) POCT hemoglobin, hematocrit and platelet count (07/30/2024 2:25 PM CDT) Hgb, POC 9.3(L) 13.0 - 17.5 g/dL Hematocrit POC 28.4(L) 38.9 - 50.3 % [facility] Platelet POC 118(L) 150 - 400 K/cumm [facility] Blood 07/30/2024 2:25 PM CDT 07/30/2024 2:25 PM CDT Nick Veliz MD LAB POCT ORDERABLES - DE VICE Final Result [facility] [place] [address] * (ABNORMAL) POC Blood Gas and Chemistries, Arterial - (07/30/2024 2:24 PM CDT) [facility] pH, Art POC 7.36 7.35 - 7.45 pCO2, Art POC 37 35 - 45 mmHg [facility] pO2, Art POC 313(H) 83 - 108 mmHg [facility] Na, POC 135 135 - 145 mmol/L [facility] K POC 4.2 3.3 - 4.9 mmol/L [facility] Comment: Interpretive Data Not all point of care methods assess for hemolysis. Confirm with instrument and retest K+ if not consistent with clinical signs and symptoms. Current Interpretive Data was last revised on 2023. Cl, POC 107 97 - 110 mmol/L [facility] Ionized Ca, POC 5.05 4.50 - 5.10 mg/dL [facility] Glucose, POC Incalculable 70 - 199 mg/dL [facility] Lactate, POC 3.5(H) 0.7 - 2.0 mmol/L [facility] SO2 (vivian) arterial 99(H) 90 - 95 % [facility] Base excess, POC -4.1 mmol/L [facility] HCO3, Art POC 21 20 - 30 mmol/L [facility] Hct, POC 29.0(L) 41.4 - 51.6 % [facility] Total Hb, POC 9.8(L) 13.8 - 17.2 g/dL [facility] Blood 07/30/2024 2:24 PM CDT 07/30/2024 2:24 PM CDT Nick Veliz MD LAB POCT ORDERABLES - DE VICE Final Result [facility] [place] [address] * (ABNORMAL) POCT heparin/ACT CPB (07/30/2024 1:37 PM CDT) Pathologist [facility] Heparin POC <2.8 units/mL ACT, CPB 518(H) 112 - 174 sec [facility] Blood 07/30/2024 1:37 PM CDT 07/30/2024 1:37 PM CDT Nick Veliz MD LAB POCT ORDERABLES - DE VICE Final Result Performing Organization Address [facility] Co de Phone Number [facility] [place] [address] * (ABNORMAL) POC Blood Gas and Chemistries, Arterial - (07/30/2024 1:34 PM CDT) [facility] pH, Art POC 7.45 7.35 - 7.45 pCO2, Art POC 35 35 - 45 mmHg [facility] pO2, Art POC 299(H) 83 - 108 mmHg [facility] Na, POC 134(L) 135 - 145 mmol/L [facility] K POC 5.0(H) 3.3 - 4.9 mmol/L [facility] Comment: Interpretive Data Not all point of care methods assess for hemolysis. Confirm with instrument and retest K+ if not consistent with clinical signs and symptoms. Current Interpretive Data was last revised on 2023. Cl, POC 107 97 - 110 mmol/L [facility] Ionized Ca, POC 4.51 4.50 - 5.10 mg/dL [facility] Glucose, POC Incalculable 70 - 199 mg/dL [facility] Lactate, POC 1.2 0.7 - 2.0 mmol/L [facility] SO2 (vivian) arterial 100(H) 90 - 95 % [facility] Base excess, POC 0.5 mmol/L [facility] HCO3, Art POC 24 20 - 30 mmol/L [facility] Hct, POC 29.0(L) 41.4 - 51.6 % [facility] Total Hb, POC 9.6(L) 13.8 - 17.2 g/dL [facility] Blood 07/30/2024 1:34 PM CDT 07/30/2024 1:34 PM CDT Nick Veliz MD LAB POCT ORDERABLES - DE VICE Final Result Performing Organization Address City/[facility] Co de Phone Number [facility] [place] [address] * (ABNORMAL) POCT heparin/ACT CPB (07/30/2024 1:05 PM CDT) [facility] Heparin POC 3.4 units/mL ACT, CPB 574(H) 112 - 174 sec [facility] Blood 07/30/2024 1:05 PM CDT 07/30/2024 1:05 PM CDT Nick Veliz MD LAB POCT ORDERABLES - DE VICE Final Result Performing Organization Address [facility] de Phone Number [facility] [place] [address] * (ABNORMAL) POC Blood Gas and Chemistries, Arterial - (07/30/2024 1:02 PM CDT) pH, Art POC 7.28(L) 7.35 - 7.45 pCO2, Art POC 59(H) 35 - 45 mmHg [facility] pO2, Art POC 268(H) 83 - 108 mmHg [facility] Na, POC 136 135 - 145 mmol/L [facility] K POC 4.6 3.3 - 4.9 mmol/L [facility] Comment: Interpretive Data Not all point of care methods assess for hemolysis. Confirm with instrument and retest K+ if not consistent with clinical signs and symptoms. Current Interpretive Data was last revised on 2023. Cl, POC 105 97 - 110 mmol/L [facility] Ionized Ca, POC 4.61 4.50 - 5.10 mg/dL [facility] Glucose, POC Incalculable 70 - 199 mg/dL [facility] Lactate, POC 0.9 0.7 - 2.0 mmol/L [facility] SO2 (vivian) arterial 100(H) 90 - 95 % [facility] Base excess, POC 0.3 mmol/L [facility] HCO3, Art POC 28 20 - 30 mmol/L [facility] Hct, POC 29.0(L) 41.4 - 51.6 % [facility] Total Hb, POC 9.7(L) 13.8 - 17.2 g/dL [facility] Blood 07/30/2024 1:02 PM CDT 07/30/2024 1:02 PM CDT Ncik Pippa Veliz MD LAB POCT ORDERABLES - DE VICE Final Result [facility] [place] [address] * Surgical pathology (07/30/2024 1:00 PM CDT) Tissue (Heart Valve) 07/30/2024 1:00 PM CDT Narrative PATHOLOGY [facility] - 08/02/2024 11:28 PM CDT EPIC results best viewed via link to PDF [facility] [place] [address] Note to Patients: This report may contain a detailed description of human tissue sent by a health care provider to the laboratory for pathologic evaluation. The content of this report is essential for diagnosis and may provide important critical findings. This information may be unfamiliar to patients to review without a medical professional present. It is advised that the patient review this report in the presence of a health care provider who can answer questions and explain the details. SURGICAL PATHOLOGY REPORT FINAL Patient Name: SHEY SHAH Gender: M : 1950 (Age: 73) Address: [address] [place] [address] [place] [address] Hospital #: [id number] Taken:07/30/2024 Received:07/30/2024 Reported: 08/02/2024 Patient Type: [facility] Inpatient Service: Medical Location: [place] [address] Physician(s): MD Juanito Ugalde M.D. Diagnosis: Heart, aortic valve, replacement - Fibrosis with dystrophic calcifications - No evidence of endocarditis r/08/02/2024 23:28 By this signature, I attest that the above diagnosis is based upon my personal examination of the slides(and/or other material indicated in the diagnosis). Lizandro Perry MD Report Electronically Reviewed and Signed Out By Lizandro Perry MD 08/02/2024 23:28:38 Microscopic Description and Comment: Microscopic examination substantiates the above cited diagnosis. History: The patient is a 73-year-old man with aortic valve stenosis. Operative procedure: Aortic valve replacement; open-heart Maze procedure; left atrial appendage excision; atrial fibrillation ablation; ventricular assist device insertion; mitral valve replacement. Specimen(s) Received: A: Aortic valve Gross Description: Received in formalin labeled with the patient's identifiers and aortic valve is a 3.6 x 2.4 x 1.2 cm aggregate of three partially to diffusely calcified crespo-white to crespo-yellow tissue fragments. They are sectioned and telemarketing sales representative sections are submitted in A1 following acid decalcification. Jar 1. dxb/07/31/2024 12:12 PA(s): FRANCHESCA Pepper, PA(ASCP)CM By this signature, I attest that the above diagnosis is based upon my personal examination of the slides(and/or other material). Addenda/Procedures The performance characteristics of some immunohistochemical stains, fluorescence in-situ hybridization tests and immunophenotyping by flow cytometry cited in this report (if any) were determined by the Surgical Pathology and Flow Cytometry Departments at [facility] as part of an ongoing quality control program and in compliance with federally mandated regulations drawn from the Clinical Laboratory Improvement Act of 1988 (CLIA '88). Some of these tests rely on the use of analyte specific reagents and are subject to specific labeling requirements by the US Food and Drug Administration. Such diagnostic tests may only be performed in a facility that is certified by the Department of Health and Human Services as a high complexity laboratory under CLIA '88. The FDA has determined that such clearance or approval is not necessary. This test is used for clinical purposes. It should not be regarded as investigational or for research. Nevertheless, federal rules concerning the medical use of analyte specific reagents require that the following disclaimer be attached to the report: This test was developed and its performance characteristics determined by the Surgical Pathology and Flow Cytometry Departments of [facility]. It has not been cleared or approved by the U. S. Food and Drug Administration. IMAGES AND SCANNED DOCUMENTS, IF INCLUDED, ONLY VIEWABLE IN PDF VERSION OF REPORT Nick Veliz MD LAB PATHOLOGY ORDERABLES Final Result PATHOLOGY [facility] 3rd Floor [place], [place] [phone] * POCT glucose (07/30/2024 12:39 PM CDT) Glucose, POC 152 70 - 199 mg/dL Blood 07/30/2024 12:3 9 PM CDT 07/30/2024 12:39 PM CDT Nick Veliz MD LAB POCT ORDERABLES - DE VICE Final Result Performing Organization Address [facility] Co de Phone Number [facility] [place] [address] * (ABNORMAL) POCT heparin/ACT CPB (07/30/2024 12:38 PM CDT) Heparin POC <2.8 units/mL ACT, CPB 528(H) 112 - 174 sec [facility] Blood 07/30/2024 12:3 8 PM CDT 07/30/2024 12:38 PM CDT Nick Veliz MD LAB POCT ORDERABLES - DE VICE Final Result Performing Organization Address City/[facility]/ZIP Co de Phone Number [facility] Services [place] [address] * (ABNORMAL) POC Blood Gas and Chemistries, Arterial - (07/30/2024 12:34 PM CDT) pH, Art POC 7.45 7.35 - 7.45 pCO2, Art POC 37 35 - 45 mmHg [facility] pO2, Art POC 349(H) 83 - 108 mmHg [facility] Na, POC 134(L) 135 - 145 mmol/L [facility] K POC 4.9 3.3 - 4.9 mmol/L [facility] Comment: Interpretive Data Not all point of care methods assess for hemolysis. Confirm with instrument and retest K+ if not consistent with clinical signs and symptoms. Current Interpretive Data was last revised on 2023. Cl, POC 107 97 - 110 mmol/L [facility] Ionized Ca, POC 4.43(L) 4.50 - 5.10 mg/dL [facility] Glucose, POC Incalculable 70 - 199 mg/dL [facility] Lactate, POC 1.0 0.7 - 2.0 mmol/L [facility] SO2 (vivian) arterial 100(H) 90 - 95 % [facility] Base excess, POC 1.7 mmol/L [facility] HCO3, Art POC 26 20 - 30 mmol/L [facility] Hct, POC 29.0(L) 41.4 - 51.6 % [facility] Total Hb, POC 9.8(L) 13.8 - 17.2 g/dL [facility] Blood 07/30/2024 12:3 4 PM CDT 07/30/2024 12:34 PM CDT Nick Veliz MD LAB POCT ORDERABLES - DE VICE Final Result [facility] [place] [address] * (ABNORMAL) POCT heparin/ACT CPB (07/30/2024 12:18 PM CDT) Heparin POC <2.8 units/mL ACT, CPB 573(H) 112 - 174 sec [facility] Blood 07/30/2024 12:1 8 PM CDT 07/30/2024 12:18 PM CDT Nick Veliz MD LAB POCT ORDERABLES - DE VICE Final Result Performing Organization Address City/[facility] Co de Phone Number [facility] [place] [address] * POCT glucose (07/30/2024 11:46 AM CDT) Glucose, POC 154 70 - 199 mg/dL Blood 07/30/2024 11:4 6 AM CDT 07/30/2024 11:46 AM CDT Nick Veliz MD LAB POCT ORDERABLES - DE VICE Final Result Performing Organization Address [facility] Co de Phone Number [facility] Department [place] [address] * (ABNORMAL) POCT heparin/ACT CPB (07/30/2024 11:44 AM CDT) Heparin POC 3.4 units/mL ACT, CPB 573(H) 112 - 174 sec [facility] Blood 07/30/2024 11:4 4 AM CDT 07/30/2024 11:44 AM CDT Nick Veliz MD LAB POCT ORDERABLES - DE VICE Final Result Performing Organization Address City/[facility] Co de Phone Number [facility] [place] [address] * (ABNORMAL) POC Blood Gas and Chemistries, Arterial - (07/30/2024 11:42 AM CDT) pH, Art POC 7.44 7.35 - 7.45 pCO2, Art POC 37 35 - 45 mmHg [facility] pO2, Art POC 361(H) 83 - 108 mmHg [facility] Na, POC 135 135 - 145 mmol/L [facility] K POC 4.8 3.3 - 4.9 mmol/L [facility] Comment: Interpretive Data Not all point of care methods assess for hemolysis. Confirm with instrument and retest K+ if not consistent with clinical signs and symptoms. Current Interpretive Data was last revised on 2023. Cl, POC 106 97 - 110 mmol/L [facility] Ionized Ca, POC 4.38(L) 4.50 - 5.10 mg/dL [facility] Glucose, POC Incalculable 70 - 199 mg/dL [facility] Lactate, POC 1.1 0.7 - 2.0 mmol/L [facility] SO2 (vivian) arterial 100(H) 90 - 95 % [facility] Base excess, POC 1.0 mmol/L [facility] HCO3, Art POC 25 20 - 30 mmol/L [facility] Hct, POC 30.0(L) 41.4 - 51.6 % [facility] Total Hb, POC 10.1(L) 13.8 - 17.2 g/dL [facility] Blood 07/30/2024 11:4 2 AM CDT 07/30/2024 11:42 AM CDT Nick Veliz MD LAB POCT ORDERABLES - DE VICE Final Result [facility] [place] [address] * POCT glucose (07/30/2024 11:18 AM CDT) Glucose, POC 145 70 - 199 mg/dL Blood 07/30/2024 11:1 8 AM CDT 07/30/2024 11:18 AM CDT Nick Veliz MD LAB POCT ORDERABLES - DE VICE Final Result Performing Organization Address City/[facility]/ZIP Co de Phone Number [facility] [place] [address] * (ABNORMAL) POCT heparin/ACT CPB (07/30/2024 11:08 AM CDT) Heparin POC 4.1 units/mL ACT, CPB 633(H) 112 - 174 sec [facility] Blood 07/30/2024 11:0 8 AM CDT 07/30/2024 11:08 AM CDT Nick Veliz MD LAB POCT ORDERABLES - DE VICE Final Result Performing Organization Address [facility] Co de Phone Number [facility] [place] [address] * (ABNORMAL) POC Blood Gas and Chemistries, Arterial - (07/30/2024 11:07 AM CDT) pH, Art POC 7.35 7.35 - 7.45 pCO2, Art POC 45 35 - 45 mmHg [facility] pO2, Art POC 147(H) 83 - 108 mmHg [facility] Na, POC 135 135 - 145 mmol/L [facility] K POC 4.2 3.3 - 4.9 mmol/L [facility] Comment: Interpretive Data Not all point of care methods assess for hemolysis. Confirm with instrument and retest K+ if not consistent with clinical signs and symptoms. Current Interpretive Data was last revised on 2023. Cl, POC 105 97 - 110 mmol/L [facility] Ionized Ca, POC 4.41(L) 4.50 - 5.10 mg/dL [facility] Glucose, POC Incalculable 70 - 199 mg/dL [facility] Lactate, POC 2.4(H) 0.7 - 2.0 mmol/L [facility] SO2 (vivian) arterial 99(H) 90 - 95 % [facility] Base excess, POC -1.0 mmol/L [facility] HCO3, Art POC 25 20 - 30 mmol/L [facility] Hct, POC 31.0(L) 41.4 - 51.6 % [facility] Total Hb, POC 10.4(L) 13.8 - 17.2 g/dL [facility] Blood 07/30/2024 11:0 7 AM CDT 07/30/2024 11:07 AM CDT Nick Veliz MD LAB POCT ORDERABLES - DE VICE Final Result Performing Organization Address City/[facility] Co de Phone Number [facility] [place] [address] * (ABNORMAL) POCT heparin/ACT CPB (07/30/2024 10:10 AM CDT) Heparin POC >4.7 units/mL ACT, CPB 548(H) 112 - 174 sec [facility] Blood 07/30/2024 10:1 0 AM CDT 07/30/2024 10:10 AM CDT Nick Veliz MD LAB POCT ORDERABLES - DE VICE Final Result Performing Organization Address [facility] Co de Phone Number [facility] [place] [place] [address] * (ABNORMAL) POC Blood Gas and Chemistries, Arterial - (07/30/2024 10:08 AM CDT) pH, Art POC 7.39 7.35 - 7.45 pCO2, Art POC 40 35 - 45 mmHg [facility] pO2, Art POC 157(H) 83 - 108 mmHg [facility] Na, POC 133(L) 135 - 145 mmol/L [facility] K POC 3.6 3.3 - 4.9 mmol/L [facility] Comment: Interpretive Data Not all point of care methods assess for hemolysis. Confirm with instrument and retest K+ if not consistent with clinical signs and symptoms. Current Interpretive Data was last revised on 2023. Ionized Ca, POC 4.21(L) 4.50 - 5.10 mg/dL [facility] Glucose, POC Incalculable 70 - 199 mg/dL [facility] Lactate, POC 1.1 0.7 - 2.0 mmol/L [facility] SO2 (vivian) arterial 100(H) 90 - 95 % [facility] Base excess, POC -0.7 mmol/L [facility] HCO3, Art POC 24 20 - 30 mmol/L [facility] Hct, POC 39.0(L) 41.4 - 51.6 % [facility] Total Hb, POC 12.9(L) 13.8 - 17.2 g/dL [facility] Blood 07/30/2024 10:0 8 AM CDT 07/30/2024 10:08 AM CDT Nick Veliz MD LAB POCT ORDERABLES - DE VICE Final Result [facility] [place] [address] * HI AN PROCEDURE PLACEHOLDER (07/30/2024 9:54 AM CDT) Anatomical Region Laterality Modality Other Narrative 07/30/2024 9:54 AM CDT Rylan Kwon MD 07/30/2024 3:46 PM AMILCAR Date/time: 07/30/2024 9:54 AM Staff: Performed by: Anesthesiologist: Abhi Martinez MD Preprocedure checklist: patient identified, procedure contraindications assessed, procedure consent, risks, benefits and alternatives discussed, monitors and equipment checked, timeout performed and AMILCAR probe inserted into esophagus using lubricating jelly General procedure Information: Reason for procedure/indications: assessment of surgical repair and hemodynamic instability Performed: personally Procedure performed at surgeon's request: yes Results discussed with surgeon: yes Images submitted to archive: yes Patient location: OR Intubated: yes Bite blocked placed: yes Probe Insertion: easy Complications: no Probe type: adult Modalities: 2D imaging, 3D imaging, continuous wave Doppler, pulsed wave Doppler and color Doppler Billing information: Physician requesting echo: Nick Veliz MD CPT code: AMILCAR placement and diagnostic exam, non-congenital (54922) ICD code(s) for medical necessity: I35.0 - Nonrheumatic aortic (valve) stenosis Echocardiographic and doppler measurements: Ventricles: Left ventricle: Cavity size: mildly dilated Hypertrophy: Yes Global function: moderately decreased LVEF%: 20-30 Right ventricle: Cavity size: normal Global function: normal Interventricular septum: normal Regional function: 1- Basal anteroseptal: hypokinetic 2- Basal anterior: hypokinetic 3- Basal anterolateral: hypokinetic 4- Basal inferolateral: hypokinetic 5- Basal inferior: hypokinetic 6- Basal inferoseptal: hypokinetic 7- Mid anteroseptal: hypokinetic 8- Mid anterior: hypokinetic 9- Mid anterolateral: hypokinetic 10- Mid inferolateral: hypokinetic 11- Mid inferior: hypokinetic 12- Mid inferoseptal: hypokinetic 13- Apical anterior: hypokinetic 14- Apical lateral: hypokinetic 15- Apical inferior: hypokinetic 16- Apical septal: hypokinetic 17- [place]: hypokinetic Valves: Aortic Valve: Annulus: normal Leaflet morphology: calcified Stenosis: severe Regurgitation: mild Mitral valve: Annulus: normal Stenosis: none Regurgitation: moderate Tricuspid valve: Annulus: normal Stenosis: none Regurgitation: mild and moderate Pulmonic valve: Annulus: normal Stenosis: none Regurgitation: mild Aorta: Ascending aorta: Size: normal Aortic arch: Size: normal Descending aorta: Size: normal Atria: Right atrium: Size: normal Left atrium: Size: dilated Left atrial appendage: normal Interatrial septum: normal Diastolic function and other findings: Pericardium: normal Left pleural effusion: large effusion Right pleural effusion: large effusion Pre-procedure AMILCAR exam summary: PreCPB AMILCAR performed under GA. LV systolic function is moderately reduced with LVEF 30% RV function is normal There is severe calcific aortic stenosis with OBED 0.6 and DI 0.15 Moderate MR with a centrally directed jet originating primarily between the A2/A3 and P2/P3 portion of the MV Mild-moderate TR, Mild HI Large JORGE with no e/o thrombus No PFO by CFD Aorta is normal with mild calcification but no thrombus or dissection Large bilateral pleural effusions Postprocedure (follow-up) AMILCAR exam: LV: unchanged RV: unchanged Interventricular septum: unchanged Aortic valve: bioprosthetic Mitral valve: normal Pulmonic valve: unchanged Tricuspid valve: unchanged Atria: unchanged Aorta: unchanged Pericardium: unchanged Left pleural: unchanged Right pleural: unchanged Postprocedure (follow-up) AMILCAR exam comments: S/p MV repair, AVR, MAZE, JORGE ligation, Impella insertion. Improved LV function with impella support. Moderate RV dysfunction. MV ring in place with no residual MR. Bioprosthetic AV in place with interrogation limited by impella. Impella in appropriate location in LV. JORGE absent. Aorta unremarkable with no e/o dissection. Attestation Statement: By signing this report the attending anesthesiologist certifies that he or she has personally reviewed and interpreted the echocardiogram and has reviewed and or edited and agrees with the written comments contained within the report. us Abhi Martinez MD ANESTHESIA ORDERABLE S Edited Result - Final * Central Venous Line (07/30/2024 9:08 AM CDT) Narrative Rylan Kwon MD - 07/30/2024 9:08 AM CDT Rylan Kwon MD 07/30/2024 9:10 AM Central Venous Line Patient location: OR Indication: central venous access and CVP monitoring Staff: Placed by: Resident: Rylan Kwon MD Procedure prep: Patient position: Trendelenburg. PPE: provider hand hygiene, provider hat/mask, sterile gloves, sterile gown, large sterile drape and full body drape. Prep solution: chlorhexadine/alcohol was applied to area. Ultrasound Evaluation: Ultrasound was prepped into field. Ultrasound image(s) saved to archive. Central line: Laterality: right Site: internal jugular Catheter type: multi-lumen access catheter (MAC) Catheter size: 9 Fr. Catheter length: 10 cm Technique: anatomy identified with ultrasound, wire threaded easily, Seldinger technique and wire removed intact Venous verification: manometry Post insertion: all ports aspirated, all ports flushed easily and line sutured in place Chlorhexidine patch applied: yes Number of attempts: 1 PA catheter placement: PA catheter type: oximetric PA catheter laterality: right PA catheter site: internal jugular Placement guided by: pressure tracing changes and verified by AMILCAR PA catheter depth 50 cmNo Assessment: Events: patient tolerated procedure well with no complications Abhi Martinez MD ANESTHESIA ORDERABLE S Final Result * Airway (07/30/2024 9:08 AM CDT) Narrative Rylan Kwon MD - 07/30/2024 9:08 AM CDT Rylan Kwon MD 07/30/2024 9:08 AM Airway Patient location: OR Urgency: elective Indications for airway management: anesthesia Difficult airway: no Staff: Placed by: Resident: Rylan Kwon MD Emergent airway documentation: Risks and benefits discussed: yes Consent obtained: yes Consent given by: patient Airway prep: Preoxygenated: yes Patient position: sniffing Mask difficulty assessment: 0 - not attempted Spontaneous ventilation during airway: absent Sedation level during airway: GA Final airway details: Final airway type: endotracheal airway Tube type: ETT ETT size: 9.0 mm Cuffed: yes Technique used for successful ETT placement: video laryngoscopy Devices/Methods used in placement: stylet Insertion site: oral Blade type: Judy Video blade type: Anton Blade size: 4 Cormack-Lehane (video): grade I - full view of glottis Cuff inflated with: air ETT to lips: 22 cm Placement verified by: auscultation and CO2 detection Airway secured with: silk tape Number of attempts: 1 Abhi Martinez MD ANESTHESIA ORDERABLE S Final Result * Arterial Line (07/30/2024 9:08 AM CDT) Narrative Rylan Kwon MD - 07/30/2024 9:08 AM CDT Rylan Kwon MD 07/30/2024 9:08 AM Arterial Line Patient location: pre-op holding Indication: continuous blood pressure monitoring Ultrasound assisted: yes Staff: Placed by: Resident: Rylan Kwon MD Procedure prep: Prep solution: chlorhexadine/alcohol Prep: provider hat/mask and sterile gloves Arterial line: Catheter size: 20 gauge Catheter length: 1 and 3/4 inch Catheter type: wire-guided catheter Seldinger technique: yes Laterality: left Site: radial artery Line secured: Tegaderm Results: good waveform and good blood return Number of attempts: 1 Assessment: Events: patient tolerated procedure well with no complications Abhi Martinez MD ANESTHESIA ORDERABLE S Final Result * POCT heparin dose response, CPB (07/30/2024 8:55 AM CDT) Baseline ACT POC 147 112 - 174 sec Heparin dose response slope POC 86 60 - 195 [facility] Projected Heparin Concentration POC 3.9 units/mL [facility] Blood 07/30/2024 8:55 AM CDT 07/30/2024 8:55 AM CDT us Nick Veliz MD LAB POCT ORDERABLES - DE VICE Final Result [facility] [place] [address] * (ABNORMAL) POC Blood Gas and Chemistries, Arterial - (07/30/2024 8:52 AM CDT) pH, Art POC 7.42 7.35 - 7.45 pCO2, Art POC 43 35 - 45 mmHg [facility] pO2, Art POC 126(H) 83 - 108 mmHg [facility] Na, POC 135 135 - 145 mmol/L [facility] K POC 3.7 3.3 - 4.9 mmol/L [facility] Comment: Interpretive Data Not all point of care methods assess for hemolysis. Confirm with instrument and retest K+ if not consistent with clinical signs and symptoms. Current Interpretive Data was last revised on 2023. Cl, POC 101 97 - 110 mmol/L [facility] Ionized Ca, POC 4.54 4.50 - 5.10 mg/dL [facility] Glucose, POC Incalculable 70 - 199 mg/dL [facility] Lactate, POC 1.4 0.7 - 2.0 mmol/L [facility] SO2 (vivian) arterial 100(H) 90 - 95 % [facility] Base excess, POC 2.9 mmol/L [facility] HCO3, Art POC 28 20 - 30 mmol/L [facility] Hct, POC 41.0(L) 41.4 - 51.6 % [facility] Total Hb, POC 13.8 13.8 - 17.2 g/dL [facility] Blood 07/30/2024 8:52 AM CDT 07/30/2024 8:52 AM CDT Nick Veliz MD LAB POCT ORDERABLES - DE VICE Final Result Performing Organization Address [facility]/ZIP Co de Phone Number [facility] [place] [address] * AMILCAR Add-On For OR (07/30/2024 7:58 AM CDT) BSA 2.26 m2 [facility] PROSOLV_CARDIORE PORT_CONS SCIMAGE Narrative [facility] PROSOLV_CARDIOREPORT_CONS SCIMAGE - 07/30/2024 7:58 AM CDT Procedure Auto Finalized by Rule: BW CV AMILCAR DURING CASE OR Please see the Anesthesiologist's Procedure Note for the results. us Abhi Martinez MD CV ECHO PROCEDURES F inal Result Performing Organization Address [facility] Co de Phone Number [facility] PROSOLV_CARDIOREPORT_CONS SCIMAGE * Prepare RBC: 4 Units (07/30/2024 5:42 AM CDT) Product code [id number] Unit Number [id number] [facility] Product Blood Type APOS [facility] Dispense Status PRESUMED TRANSFUSED [facility] Blood 07/30/2024 5:42 AM CDT 07/30/2024 5:41 AM CDT Narrative [facility] - 07/31/2024 8:02 AM CDT Specify Procedure:->AVR Are special requirements needed? (All products are leukoreduced and CMV- safe)- >No Date required:-[id number] LRRBC # of [id number] Reasons:-Hold for procedure (specify procedure)} Aide Dejan Galicia [facility]OLOG[facility] SPECIALIST BLOOD BANK PRODUCT OR DERABLES Final Result Performing Organization Address City/[facility]/ZIP Co de Phone Number [facility] [place] [address] * Potassium, whole blood (07/30/2024 5:18 AM CDT) Potassium, bld 3.5 3.3 - 4.9 mmol/L Blood 07/30/2024 5:18 AM CDT 07/30/2024 5:43 AM CDT Alicia Tuttle RADIOLOGICAL HEALTH SPECIALIST LAB BLOOD ORDERABLES Final R esult Performing Organization Address [facility] de Phone Number [facility] [place] [address] * ECG 12 lead (07/30/2024 5:14 AM CDT) [facility] Ventricular Rate EKG/Min 76 BPM [facility] Atrial Rate 76 BPM [facility] HI-Interval (MSEC) 176 ms [facility] QRS-Interval (MSEC) 102 ms [facility] QT-Interval (MSEC) 410 ms [facility] QTc 461 ms [facility] P [place] 91 degrees [facility] R [place] 72 degrees [facility] T [place] 66 degrees [facility] Diagnosis Normal sinus rhythm with sinus arrhythmia Minimal voltage criteria for LVH, may be normal variant ( Howard product ) Borderline ECG No previous ECGs available Confirmed by Iris SOTO, Martina ([id number]) on 07/31/2024 12:12:34 AM [facility] 07/30/2024 5:14 AM CDT 07/31/2024 12:12 AM CDT us Nick Veliz MD ECG ORDERABLES Final Re sult Performing Organization Address [facility] Co de Phone Number [facility] * Potassium, whole blood (07/30/2024 12:07 AM CDT) Potassium, bld 3.9 3.3 - 4.9 mmol/L Blood 07/30/2024 12:0 7 AM CDT 07/30/2024 12:45 AM CDT Alicia Tuttle RADIOLOGICAL HEALTH SPECIALIST LAB BLOOD ORDERABLES Final R esult Performing Organization Address [facility] Co de Phone Number [facility] [place] [address] * Potassium, whole blood (07/29/2024 5:13 PM CDT) Potassium, bld 3.9 3.3 - 4.9 mmol/L Blood 07/29/2024 5:13 PM CDT 07/29/2024 5:22 PM CDT Alicia Tuttle RADIOLOGICAL HEALTH SPECIALIST LAB BLOOD ORDERABLES Final R esult Performing Organization Address [facility] de Phone Number [facility] [place] [address] * eGFR (07/29/2024 5:13 PM CDT) eGFR 69 >=60 mL/min/1. 73 m2 Comment: Interpretive Data [...] interpretive data was last reviewed 2021. Blood 07/29/2024 5:13 PM CDT 07/29/2024 5:39 PM CDT Kirstin Vidal NP LAB BLOOD ORDERABLES Final Result [facility] [place] [address] * (ABNORMAL) Differential, auto (07/29/2024 5:13 PM CDT) Neutrophil abs 8.30(H) 1.50 - 6.50 K/cumm Imm gran abs 0.05 0.00 - 0.10 K/cumm [facility] Lymphocyte abs 1.22 0.80 - 3.30 K/cumm [facility] Monocyte abs 1.20(H) 0.20 - 0.80 K/cumm [facility] Eosinophil abs 0.05 0.00 - 0.50 [facility] Basophil abs 0.04 0.00 - 0.10 K/cumm [facility] Neutrophil pct 76.4 % [facility] Comment: Interpretive Data Percent cell count reference ranges are not reported, since discordance with absolute values may lead to misinterpretation of CBC data. Current Interpretive Data was last revised on 2017. Imm gran pct 0.5 % [facility] Comment: Interpretive Data Percent cell count reference ranges are not reported, since discordance with absolute values may lead to misinterpretation of CBC data. Current Interpretive Data was last revised on 2017. Lymphocyte pct 11.2 % [facility] Comment: Interpretive Data Percent cell count reference ranges are not reported, since discordance with absolute values may lead to misinterpretation of CBC data. Current Interpretive Data was last revised on 2017. Monocyte pct 11.0 % [facility] Comment: Interpretive Data Percent cell count reference ranges are not reported, since discordance with absolute values may lead to misinterpretation of CBC data. Current Interpretive Data was last revised on 2017. Eosinophil pct 0.5 % [facility] Comment: Interpretive Data Percent cell count reference ranges are not reported, since discordance with absolute values may lead to misinterpretation of CBC data. Current Interpretive Data was last revised on 2017. Basophil pct 0.4 % [facility] Comment: Interpretive Data Percent cell count reference ranges are not reported, since discordance with absolute values may lead to misinterpretation of CBC data. Current Interpretive Data was last revised on 2017. Blood 07/29/2024 5:13 PM CDT 07/29/2024 5:39 PM CDT Kirstin Vidal RADIOLOGICAL HEALTH SPECIALIST LAB BLOOD ORDERABLES Final Result Performing Organization Address City/[facility] Co de Phone Number [facility] Department [place] [address] * (ABNORMAL) CBC with auto differential (07/29/2024 5:13 PM CDT) WBC 10.86(H) 3.80 - 9.90 K/cumm Hgb 14.0 13.0 - 17.5 g/dL [facility] Hct 41.2 38.9 - 50.3 % [facility] Plt 253 150 - 400 K/cumm [facility] MPV 10.7 9.1 - 12.3 fL [facility] RBC 3.96(L) 4.30 - 5.80 M/cumm [facility] MCV 104.0(H) 81.3 - 96.4 fL [facility] MCH 35.4(H) 27.1 - 33.3 pg [facility] MCHC 34.0 32.3 - 35.7 g/dL [facility] RDW CV 12.3 11.1 - 14.9 % [facility] RDW SD 47.4 35.7 - 48.1 fL [facility] NRBC abs 0.00 0.00 - 0.01 K/cumm [facility] Blood 07/29/2024 5:13 PM CDT 07/29/2024 5:39 PM CDT Kirstin Vidal NP LAB BLOOD ORDERABLES Final Result Performing Organization Address City/State/[facility] Co de Phone Number [facility] [place] [address] * Type and screen (07/29/2024 5:13 PM CDT) Kumar, indirect Negative ABO Rh A Positive [facility] Blood 07/29/2024 5:13 PM CDT 07/29/2024 5:25 PM CDT us Nick Veliz MD LAB BLOOD BANK TEST ORDE RABLES Final Result Performing Organization Address [facility] [place] [address] * Phosphorus (07/29/2024 5:13 PM CDT) Phosphorus, pl 3.2 2.3 - 4.5 mg/dL Blood 07/29/2024 5:13 PM CDT 07/29/2024 5:39 PM CDT Kirstin Vidal NP LAB BLOOD ORDERABLES Final Result Performing Organization Address [facility] Co de Phone Number [facility] [place] [address] * Magnesium (07/29/2024 5:13 PM CDT) Pathologist [facility] Magnesium 1.8 1.4 - 2.5 mg/dL Blood 07/29/2024 5:13 PM CDT 07/29/2024 5:39 PM CDT Kirstin Vidal NP LAB BLOOD ORDERABLES Final Result Performing Organization Address [facility] Co de Phone Number [facility] Department [place] [address] * (ABNORMAL) Hepatic function panel (07/29/2024 5:13 PM CDT) Pathologist [facility] Bilirubin, total 1.0 0.1 - 1.2 mg/dL Bilirubin, direct 0.4(H) 0.1 - 0.3 mg/dL [facility] Protein, pl 7.0 6.5 - 8.5 g/dL [facility] Albumin 3.5 3.5 - 5.0 g/dL [facility] Alk phos 60 40 - 130 Units/L [facility] ALT 22 7 - 55 Units/L [facility] AST 26 10 - 50 Units/L [facility] Blood 07/29/2024 5:13 PM CDT 07/29/2024 5:39 PM CDT us Renae Moseley DO LAB BLOOD ORDERABLE S Final Result [facility] Department [place] [address] * (ABNORMAL) Basic metabolic panel (07/29/2024 5:13 PM CDT) Pathologist [facility] Sodium 134(L) 135 - 145 mmol/L Potassium, pl 3.9 3.3 - 4.9 mmol/L [facility] Chloride 94(L) 97 - 110 mmol/L [facility] CO2 29 22 - 32 mmol/L [facility] Anion gap 11 2 - 15 mmol/L [facility] BUN 22 6 - 25 mg/dL [facility] Creatinine 1.12 0.80 - 1.30 mg/dL [facility] Glucose 111 70 - 199 mg/dL [facility] Comment: Interpretive Data Fasting glucose >/= [...] interpretive data was last revised 2022. Calcium 9.0 8.5 - 10.3 mg/dL [facility] Blood 07/29/2024 5:13 PM CDT 07/29/2024 5:39 PM CDT Kirstin Vidal RADIOLOGICAL HEALTH SPECIALIST LAB BLOOD ORDERABLES Final Result [facility] Department [place] [address] * POCT glucose (07/29/2024 5:05 PM CDT) Glucose, POC 97 70 - 199 mg/dL Blood 07/29/2024 5:05 PM CDT 07/29/2024 5:05 PM CDT Nick Veliz MD LAB POCT ORDERABLES - DE VICE Final Result Performing Organization Address City/[facility]/ZIP Co de Phone Number [facility] [place] [address] * Prepare RBC: 4 Units (07/29/2024 4:07 PM CDT) Product code [id number] Unit Number [id number] 9-B [facility] Product Blood Type APOS [facility] Dispense Status RETURNED [facility] Product code [id number] [facility] Unit Number [id number] 2-S [facility] Product Blood Type APOS [facility] Dispense Status RETURNED [facility] Product code [id number] [facility] Unit Number [id number] 4-2 [facility] Product Blood Type APOS [facility] Dispense Status RETURNED [facility] Product code [id number] [facility] Unit Number [id number] 3-F [facility] Product Blood Type APOS [facility] Dispense Status RETURNED [facility] Blood 07/29/2024 4:07 PM CDT 07/29/2024 4:07 PM CDT [facility]ative [facility] - 07/30/2024 5:39 PM CDT Specify Procedure:->BioAVR on 07/30/24 Are special requirements needed? (All products are leukoreduced and CMV- safe)- >No Date required:-[id number] LRRBC # of [id number] Reasons:-Hold for procedure (specify procedure)} us Alicia Tuttle RADIOLOGICAL HEALTH SPECIALIST BLOOD BANK PRODUCT ORDERABLE S Final Result Performing Organization Address [facility] Co de Phone Number [facility] Department [place] [address] * (ABNORMAL) aPTT (07/29/2024 3:32 PM CDT) aPTT 52(H) 28 - 38 sec Comment: Interpretive Data Heparin therapeutic range: 66.0 - 100.0 seconds. Range based on correlation with therapeutic heparin activity range of 0.3 - 0.7 Units/mL. Current interpretive data was last revised on 2023. Blood 07/29/2024 3:32 PM CDT 07/29/2024 3:50 PM CDT Raheem [facility] 07/29/2024 4:00 PM CDT Draw STAT PTT 2 hours after initiation of bivalirudin infusion, draw STAT PTT 2 hours after each dose change, and every 2 hours until 2 consecutive PTTs are within therapeutic range. Once two consecutive PTTs are therapeutic (50-80 seconds), then draw PTT every AM until bivalirudin is discontinued. us Renae Moseley DO LAB BLOOD ORDERABLE S Final Result Performing Organization Address [facility] Co de Phone Number [facility] Department [place] [address] * (ABNORMAL) Urinalysis reflex to microscopic and culture Urine, clean voided (07/29/2024 2:43 PM CDT) Color, ur Straw Yellow Clarity, ur Clear Clear [facility] Specific gravity, ur 1.012 1.003 - 1.030 [facility] pH, urine 7.0 [facility] Comment: Interpretive Data U rine pH is affected by diet, medications, systemic acid-base disturbances, and renal tubular function. pH may affect urinary stone formation. For example, urine pH below 6.0 may help reduce the tendency for calcium phosphate stones and pH greater than 6.0 may reduce the tendency for uric acid stone formation. Source: [facility] Current Interpretive Data was last revised on 2017 Protein, ur ql Negative Negative [facility] Glucose, ur ql Negative Negative [facility] Ketones, ur Negative Negative [facility] Bilirubin, ur Negative Negative [facility] Blood, ur Trace(A) Negative [facility] Urobilinogen, ur <2.0 <2.0 mg/dL [facility] Nitrite, ur Negative Negative [facility] Leukocyte esterase, ur Negative Negative [facility] UA reflex comment Reflex to microscopic UA will be performed. [facility] Urine, clean voided 07/29/2024 2:43 PM CDT 07/29/2024 3:20 PM CDT Aide Galicia NP LAB MICROBIOLOGY - [place] ORDERABLES Final Result [facility] [place] [address] * (ABNORMAL) Urinalysis, microscopic only (07/29/2024 2:43 PM CDT) WBC, ur 0-5 0 - 5 /HPF RBC, ur 3-5(A) 0 - 2 /HPF [facility] Epithelial cells, squamous, ur 1-5 0 - 5 /HPF [facility] Mucous, ur Present(A) [facility] Hyaline casts, ur 1-5 0 - 10 /LPF [facility] Culture Reflex Comment Reflex conditions for urine culture (WBC >10) not met. [facility] Urine, clean voided 07/29/2024 2:43 PM CDT 07/29/2024 3:20 PM CDT Aide Galicia RADIOLOGICAL HEALTH SPECIALIST LAB URINE ORDERABLES Final Result Performing Organization Address [facility] Co de Phone Number [facility] [place] [address] * POCT glucose (07/29/2024 11:55 AM CDT) Glucose, POC 120 70 - 199 mg/dL Blood 07/29/2024 11:5 5 AM CDT 07/29/2024 11:55 AM CDT Nick Veliz MD LAB POCT ORDERABLES - DE VICE Final Result Performing Organization Address [facility] de Phone Number [facility] [place] [place] [address] * (ABNORMAL) Potassium, whole blood (07/29/2024 11:49 AM CDT) Potassium, bld 3.2(L) 3.3 - 4.9 mmol/L Blood 07/29/2024 11:4 9 AM CDT 07/29/2024 12:05 PM CDT us Alicia Tuttle RADIOLOGICAL HEALTH SPECIALIST LAB BLOOD ORDERABLES Final R esult Performing Organization Address [facility] Co de Phone Number [facility] [place] [address] * (ABNORMAL) aPTT (07/29/2024 11:49 AM CDT) aPTT 49(H) 28 - 38 sec Comment: Interpretive Data Heparin therapeutic range: 66.0 - 100.0 seconds. Range based on correlation with therapeutic heparin activity range of 0.3 - 0.7 Units/mL. Current interpretive data was last revised on 2023. Blood 07/29/2024 11:4 9 AM CDT 07/29/2024 12:07 PM CDT Narrative [facility] - 07/29/2024 12:34 PM CDT Draw STAT PTT 2 hours after initiation of bivalirudin infusion, draw STAT PTT 2 hours after each dose change, and every 2 hours until 2 consecutive PTTs are within therapeutic range. Once two consecutive PTTs are therapeutic (50-80 seconds), then draw PTT every AM until bivalirudin is discontinued. Renae Moseley DO LAB BLOOD ORDERABLE S Final Result Performing Organization Address City/[facility]/ZIP Co de Phone Number [facility] Department [place] [address] * (ABNORMAL) Protime-INR (07/29/2024 11:49 AM CDT) Pathologist [facility] PT 16.1(H) 9.7 - 13.0 sec INR 1.48(H) 0.90 - 1.20 [facility] Comment: Interpretive data Oral anticoagulant therapeutic ranges: Venous thromboembolism prophylaxis or treatment: 2.0-3.0 CARDIOLOGY Standard range: 2.0-3.0 High-intensity range: 2.5-3.5 Refer to indication-specific guidelines for appropriate target ranges for prosthetic heart valve replacement. Current interpretive data was last revised on 2019. Blood 07/29/2024 11:4 9 AM CDT 07/29/2024 12:07 PM CDT Result [facility] Nick Veliz MD LAB BLOOD ORDERABLES Fin al Result [facility] Department [place] [address] * Pulmonary Function Test -[facility]; Standard, Spirometry with Bronchodilator, ABG, DLCO; Spirometry, Spirometry w/bronchodilator, DLCO and Lung Volumes; Room Air ABG; Spirometry (07/29/2024 11:42 AM CDT) Pathologist [facility] FVC PRE 2.59 L [facility] FVC %PRE PRED 58 % [facility] FEV1 PRE 1.84 L [facility] FEV1 %PRE PRED 56 % [facility] FEV1/FVC PRE 70.8 % [facility] FRC PL PRE 2.83 L [facility] FRC PL %PRE PRED 68 % [facility] RV PRE 1.79 L [facility] RV %PRE PRED 66 % [facility] TLC PRE 4.45 L [facility] TLC %PRE PRED 58 % [facility] DLCO PRE 16.2 ml/min/mmH g [facility] DLCO %PRE PRED 58 % [facility] FIO2 % 21.00 % [facility] PaO2 84.0 mmHg [facility] PaCO2 33.0 mmHg [facility] pH 7.55 [facility] A-aDO2 POC 24.0 mmHg [facility] METHGB % 0.2 % [facility] COHb POC 2.3 % [facility] HCO3 28.9 mEq/L [facility] Anatomical Region Laterality Modality PFT 07/29/2024 11:1 3 AM CDT Narrative 07/29/2024 5:09 PM CDT Scheduled for OR on 07/30 Patient Location:->[facility] Standard:->Spirometry, Spirometry w/bronchodilator, DLCO and Lung Volumes ABG:->Room Air ABG DLCO:->Spirometry Pulmonary Function Test Interpretation SPIROMETRY: There is a decrease in expiratory airflow at high lung volumes. There is a decrease in expiratory airflow at middle lung volumes. The FEV1 to FVC ratio is normal. The decreased expiratory flow and FEV1 and FVC are consistent with a combined restrictive and obstructive abnormality. The inspiratory loop is appropriate for the expiratory flow abnormality. LUNG VOLUMES: TLC measured by plethysmography is decreased. DLCO: The diffusing capacity is decreased. The diffusing capacity corrected for hemoglobin level (DLCO ADJ) is mildly decreased. A decreased diffusing capacity may be due to loss of pulmonary capillary surface area. Causes include pulmonary fibrosis (altered V/Q relationship), pulmonary vascular disease, emphysema, or interstitial pneumonitis. ARTERIAL BLOOD GAS: There is a mild mixed acid-base disturbance: metabolic alkalosis and respiratory alkalosis. The arterial pO2 is normal at rest. The COHb level is 2.3%. Normal is less than 2%. Impression: There is a moderate restrictive ventilatory defect. There is a mild impairment of alveolar gas exchange by DLCO. There is no impairment of gas exchange at rest by ABG, but there is mild hyperventilation. The COHb level is consistent with exposure to products of combustion or altered heme metabolism. Jace Kemp MD The attending pulmonary physician certifies a physician presence in the [facility] Suite during the administration of aerosolized bronchodilator. The attending pulmonary physician certifies that he has reviewed and interpreted the graphic and numerical data of this pulmonary function study and agrees with the written final report. The lower limit of normal for PaO2 and %HbO2 is age dependent. However, the [facility] defines hypoxemia as a PaO2 <56 mm Hg or a %HbO2 <89%. Starting on April of [address] [facility] utilizes race neutral [employer] normative equations. us Alicia Tuttle RADIOLOGICAL HEALTH SPECIALIST PFT ORDERABLES Final Result * US Carotids Duplex Bilateral (07/29/2024 11:13 AM CDT) Anatomical Region Laterality Modality Vascular Bilateral Ultrasound 07/29/2024 9:36 AM CDT Narrative 07/29/2024 6:[address] [facility] - Department of Vascular Surgery, Vascular Laboratory [address] [place] [address] Carotid Duplex Ultrasound Report Patient Name: SHEY SHAH C : 1950 (73y 11m) Study Date: 07/29/2024 9:36:47 AM Gender: M Tech: Location: [id number] Ref Provider: ALICIA TUTTLE Quality: Adequate Order Provider: ALICIA TUTTLE PROCEDURES: Carotid Report: Carotid duplex examination of the extracranial arteries was performed using 2D, color and spectral Doppler. INDICATIONS: Pre-Op BioAVR; scheduled for OR on 07/30 - MEASUREMENTS: Right Value Units Left Value Units RT Prox CCA PSV 63 cm/sec LT Prox CCA PSV 70 cm/sec RT Prox CCA EDV 14 cm/sec LT Prox CCA EDV 11 cm/sec RT Distal CCA PSV 47 cm/sec LT Distal CCA PSV 52 cm/sec RT Distal CCA EDV 12 cm/sec LT Distal CCA EDV 18 cm/sec RT Prox ICA PSV 49 cm/sec LT Prox ICA PSV 33 cm/sec RT Prox ICA EDV 13 cm/sec LT Prox ICA EDV 11 cm/sec RT Mid ICA PSV 70 cm/sec LT Mid ICA PSV 56 cm/sec RT Mid ICA EDV 24 cm/sec LT Mid ICA EDV 22 cm/sec RT Distal ICA PSV 66 cm/sec LT Distal ICA PSV 59 cm/sec RT Distal ICA EDV 22 cm/sec LT Distal ICA EDV 14 cm/sec RT ECA Prx PSV 54 cm/sec LT ECA Prx PSV 42 cm/sec RT ICA/CCA 1.00 ratio LT ICA/CCA 0.60 ratio RT VERT PSV 44 cm/sec LT VERT PSV 38 cm/sec FINDINGS: Performing Jacquard Loom Weaver: Yen Estrella RVT. Rt Common Carotid Artery: Duplex imaging of the right common carotid artery is within normal limits without evidence of atherosclerotic disease. Rt Internal Carotid Artery: The plaque in the right internal carotid artery appears to be heterogeneous. Atherosclerotic changes of the right internal carotid artery without hemodynamically significant Doppler findings. <50% stenosis. Rt External Carotid Artery: The right external carotid artery is patent without evidence of atherosclerotic plaque. Rt Vertebral Artery: The right vertebral artery is patent with antegrade flow. Lt Common Carotid Artery: Duplex imaging of the left common carotid artery is within normal limits without evidence of atherosclerotic disease. Lt Internal Carotid Artery: The plaque in the left internal carotid artery appears to be heterogeneous. Atherosclerotic changes of the left internal carotid artery without hemodynamically significant Doppler findings. <50% stenosis. Lt External Carotid Artery: Patent left external carotid artery with evidence of atherosclerotic disease present. Lt Vertebral Artery: The left vertebral artery is patent with antegrade flow. CONCLUSIONS: 1. The right internal carotid artery disease is consistent with a less than 50% stenosis. 2. The left internal carotid artery disease is consistent with a less than 50% stenosis. 3. No evidence of hemodynamically significant stenosis in the common carotid artery bilaterally. 4. Normal, antegrade flow is noted in bilateral vertebral arteries. 5. Patent bilateral external carotid arteries without evidence of atherosclerotic plaque. HISTORY: HTN, severe aortic stenosis, Afib with rapid ventricular response, CHF with reduced ejection fraction. PREVIOUS STUDIES: No previous studies for comparison. DISCLAIMER: The study images and the final report will be retained in the patient chart by the Vascular Laboratory for the legally required time period. This chart constitutes the legal record of any testing performed. ATTESTATION: I have reviewed and interpreted the pertinent images and measurements of this study. I attest to the conclusions in the final report that is provided above. Electronically Signed By: Willie Saldivar MD FACS 07/29/2024 6:38:30 PM CDT Procedure Note Willie Saldivar MD - 07/29/2024 [facility] - Department of Vascular Surgery,Vascular Laboratory [address] [place] [address] Carotid Duplex Ultrasound Report Patient Name: SHEY SHAH C : 1950 (73y 11m) Study Date: 07/29/2024 9:36:47 AM Gender: M Tech: Location: [id number] Ref Provider: ALICIA TUTTLE Quality: Adequate Order Provider: ALICIA TUTTLE PROCEDURES: Carotid Report: Carotid duplex examination of the extracranial arterieswas performed using 2D, color and spectral Doppler. INDICATIONS: Pre-Op BioAVR; scheduled for OR on 07/30 - MEASUREMENTS: Right Value Units Left Value Units RT Prox CCA PSV 63 cm/sec LT Prox CCA PSV 70 cm/sec RT Prox CCA EDV 14 cm/sec LT Prox CCA EDV 11 cm/sec RT Distal CCA PSV 47 cm/sec LT Distal CCA PSV 52 cm/sec RT Distal CCA EDV 12 cm/sec LT Distal CCA EDV 18 cm/sec RT Prox ICA PSV 49 cm/sec LT Prox ICA PSV 33 cm/sec RT Prox ICA EDV 13 cm/sec LT Prox ICA EDV 11 cm/sec RT Mid ICA PSV 70 cm/sec LT Mid ICA PSV 56 cm/sec RT Mid ICA EDV 24 cm/sec LT Mid ICA EDV 22 cm/sec RT Distal ICA PSV 66 cm/sec LT Distal ICA PSV 59 cm/sec RT Distal ICA EDV 22 cm/sec LT Distal ICA EDV 14 cm/sec RT ECA Prx PSV 54 cm/sec LT ECA Prx PSV 42 cm/sec RT ICA/CCA 1.00 ratio LT ICA/CCA 0.60 ratio RT VERT PSV 44 cm/sec LT VERT PSV 38 cm/sec FINDINGS: Performing Jacquard Loom Weaver: CHITO TrinidadT. Rt Common Carotid Artery: Duplex imaging of the right common carotidartery is within normal limits without evidence of atherosclerotic disease. Rt Internal Carotid Artery: The plaque in the right internal carotidartery appears to be heterogeneous. Atherosclerotic changes of the right internal carotidartery without hemodynamically significant Doppler findings. <50% stenosis. Rt External Carotid Artery: The right external carotid artery is patentwithout evidence of atherosclerotic plaque. Rt Vertebral Artery: The right vertebral artery is patent with antegradeflow. Lt Common Carotid Artery: Duplex imaging of the left common carotid arteryis within normal limits without evidence of atherosclerotic disease. Lt Internal Carotid Artery: The plaque in the left internal carotid arteryappears to be heterogeneous. Atherosclerotic changes of the left internal carotid arterywithout hemodynamically significant Doppler findings. <50% stenosis. Lt External Carotid Artery: Patent left external carotid artery withevidence of atherosclerotic disease present. Lt Vertebral Artery: The left vertebral artery is patent with antegradeflow. CONCLUSIONS: 1. The right internal carotid artery disease is consistent with a lessthan 50% stenosis. 2. The left internal carotid artery disease is consistent with a less than50% stenosis. 3. No evidence of hemodynamically significant stenosis in the commoncarotid artery bilaterally. 4. Normal, antegrade flow is noted in bilateral vertebral arteries. 5. Patent bilateral external carotid arteries without evidence ofatherosclerotic plaque. HISTORY: HTN, severe aortic stenosis, Afib with rapid ventricular response, CHFwith reduced ejection fraction. PREVIOUS STUDIES: No previous studies for comparison. DISCLAIMER: The study images and the final report will be retained in the patientchart by the Vascular Laboratory for the legally required time period. This chartconstitutes the legal record of any testing performed. ATTESTATION: I have reviewed and interpreted the pertinent images and measurements ofthis study. I attest to the conclusions in the final report that is provided above. Electronically Signed By: Willie Saldivar MD [facility] 07/29/2024 6:38:30 PM CDT us Alicia Tuttle NP IMG US PROCEDURES Final Resu lt * POCT glucose (07/29/2024 8:00 AM CDT) [facility] Signature Glucose, POC 117 70 - 199 mg/dL Blood 07/29/2024 8:00 AM CDT 07/29/2024 8:00 AM CDT us Nick Velzi MD LAB POCT ORDERABLES - DE VICE Final Result Performing Organization Address City/[facility]/ZIP Co de Phone Number [facility] [place] [address] * eGFR (07/28/2024 8:30 PM CDT) eGFR 75 >=60 mL/min/1. 73 m2 Comment: Interpretive Data [...] interpretive data was last reviewed 2021. Blood 07/28/2024 8:30 PM CDT 07/28/2024 10:21 PM CDT us Kirstin Vidal NP LAB BLOOD ORDERABLES Final Result [facility] [place] [address] * Phosphorus (07/28/2024 8:30 PM CDT) Phosphorus, pl 3.3 2.3 - 4.5 mg/dL Blood 07/28/2024 8:30 PM CDT 07/28/2024 10:21 PM CDT Kirstin Vidal RADIOLOGICAL HEALTH SPECIALIST LAB BLOOD ORDERABLES Final Result [facility] [place] [address] * Magnesium (07/28/2024 8:30 PM CDT) Pathologist [facility] Magnesium 1.9 1.4 - 2.5 mg/dL Blood 07/28/2024 8:30 PM CDT 07/28/2024 10:21 PM CDT Kirstin Vidal LAB BLOOD ORDERABLES Final Result Performing Organization Address [facility] de Phone Number [facility] Department [place] [address] * (ABNORMAL) Basic metabolic panel (07/28/2024 8:30 PM CDT) [facility] Sodium 137 135 - 145 mmol/L Potassium, pl 3.1(L) 3.3 - 4.9 mmol/L [facility] Chloride 97 97 - 110 mmol/L [facility] CO2 29 22 - 32 mmol/L [facility] Anion gap 11 2 - 15 mmol/L [facility] BUN 23 6 - 25 mg/dL [facility] Creatinine 1.05 0.80 - 1.30 mg/dL [facility] Glucose 153 70 - 199 mg/dL [facility] Comment: Interpretive Data Fasting glucose >/= [...] interpretive data was last revised 2022. Calcium 8.6 8.5 - 10.3 mg/dL [facility] Blood 07/28/2024 8:30 PM CDT 07/28/2024 10:21 PM CDT Kirstin Vidal RADIOLOGICAL HEALTH SPECIALIST LAB BLOOD ORDERABLES Final Result [facility] Department [place] [address] * POCT glucose (07/28/2024 6:33 PM CDT) Pathologist [facility] Glucose, POC 90 70 - 199 mg/dL Blood 07/28/2024 6:33 PM CDT 07/28/2024 6:33 PM CDT Nick Veliz MD LAB POCT ORDERABLES - DE VICE Final Result Performing Organization Address City/[facility] Co de Phone Number [facility] [place] [address] * (ABNORMAL) Differential, auto (07/28/2024 6:30 PM CDT) Pathologist [facility] Neutrophil abs 6.9(H) 1.5 - 6.5 K/cumm Imm gran abs 0.1 0.0 - 0.1 K/cumm [facility] Lymphocyte abs 0.9 0.8 - 3.3 K/cumm [facility] Monocyte abs 1.1(H) 0.2 - 0.8 K/cumm [facility] Eosinophil abs 0.0 0.0 - 0.5 K/cumm [facility] Basophil abs 0.1 0.0 - 0.1 K/cumm [facility] Neutrophil pct 76.4 % [facility] Comment: Interpretive Data Percent cell count reference ranges are not reported, since discordance with absolute values may lead to misinterpretation of CBC data. Current Interpretive Data was last revised on 2017. Imm gran pct 0.7 % [facility] Comment: Interpretive Data Percent cell count reference ranges are not reported, since discordance with absolute values may lead to misinterpretation of CBC data. Current Interpretive Data was last revised on 2017. Lymphocyte pct 9.7 % [facility] Comment: Interpretive Data Percent cell count reference ranges are not reported, since discordance with absolute values may lead to misinterpretation of CBC data. Current Interpretive Data was last revised on 2017. Monocyte pct 12.4 % [facility] Comment: Interpretive Data Percent cell count reference ranges are not reported, since discordance with absolute values may lead to misinterpretation of CBC data. Current Interpretive Data was last revised on 2017. Eosinophil pct 0.2 % [facility] Comment: Interpretive Data Percent cell count reference ranges are not reported, since discordance with absolute values may lead to misinterpretation of CBC data. Current Interpretive Data was last revised on 2017. Basophil pct 0.6 % [facility] Comment: Interpretive Data Percent cell count reference ranges are not reported, since discordance with absolute values may lead to misinterpretation of CBC data. Current Interpretive Data was last revised on 2017. Blood 07/28/2024 6:30 PM CDT 07/28/2024 10:23 PM CDT Kirstin Vidal NP LAB BLOOD ORDERABLES Final Result [facility] Department [place] [address] * (ABNORMAL) CBC with auto differential (07/28/2024 6:30 PM CDT) WBC 9.1 3.8 - 9.9 K/cumm Hgb 13.5 13.0 - 17.5 g/dL [facility] Hct 39.1 38.9 - 50.3 % [facility] Plt 236 150 - 400 K/cumm [facility] MPV 11.0 9.1 - 12.3 fL [facility] RBC 3.80(L) 4.30 - 5.80 M/cumm [facility] MCV 102.9(H) 81.3 - 96.4 fL [facility] MCH 35.5(H) 27.1 - 33.3 pg [facility] MCHC 34.5 32.3 - 35.7 g/dL [facility] RDW CV 12.5 11.1 - 14.9 % [facility] RDW SD 46.8 35.7 - 48.1 fL [facility] NRBC abs 0.00 0.00 - 0.01 K/cumm [facility] Blood 07/28/2024 6:30 PM CDT 07/28/2024 10:23 PM CDT us Kirstin Vidal RADIOLOGICAL HEALTH SPECIALIST LAB BLOOD ORDERABLES Final Result Performing Organization Address City/[facility]/ZIP Co de Phone Number [facility] Department [place] [address] * (ABNORMAL) Hepatic function panel (07/28/2024 6:30 PM CDT) Pathologist [facility] Bilirubin, total 0.9 0.1 - 1.2 mg/dL Bilirubin, direct 0.3 0.1 - 0.3 mg/dL [facility] Protein, pl 6.4(L) 6.5 - 8.5 g/dL [facility] Albumin 3.2(L) 3.5 - 5.0 g/dL [facility] Alk phos 54 40 - 130 Units/L [facility] ALT 26 7 - 55 Units/L [facility] AST 28 10 - 50 Units/L [facility] Blood 07/28/2024 6:30 PM CDT 07/28/2024 10:21 PM CDT us Renae Moseley DO LAB BLOOD ORDERABLE S Final Result Performing Organization Address City/[facility]/ZIP Co de Phone Number [facility] [place] [address] * POCT glucose (07/28/2024 5:45 PM CDT) Glucose, POC 105 70 - 199 mg/dL Blood 07/28/2024 5:45 PM CDT 07/28/2024 5:45 PM CDT Nick Veliz MD LAB POCT ORDERABLES - DE VICE Final Result [facility] [place] [address] * RIGHT HEART CATH, LEFT HEART CATHETERIZATION WITH CORONARY ANGIOGRAPHY AND WITH AND WITHOUT LEFT VENTRICULOGRAM (07/28/2024 5:32 PM CDT) Anatomical Region Laterality Modality X-Ray Angiograph y Impressions 07/28/2024 5:36 PM CDT 1) Undetermined left heart filling pressures. 2) Normal right heart filling pressures. 3) Moderate pulmonary hypertension. 4) Low cardiac output at rest. 5) No significant coronary artery disease. RECOMMENDATION: The results of the left and right heart catheterization were discussed with the referring physician. Narrative 07/28/2024 5:36 PM CDT [facility] SISAL OPERATOR REPORT: RIGHT AND LEFT HEART CATHETERIZATION PROCEDURE: Right and left heart catheterization with selective coronary angiography CLINICAL HISTORY: Shey Shah is a 73 y.o. male with a history of severe . He is referred for right and left heart catheterization evaluate their coronary anatomy, hemodynamics, and pulmonary pressures. Shey Shah has no dye allergy and his serum creatinine is 1.1. FELLOW: Charito Wallace MD . PROCEDURE: 1. The risks, benefits, and details of the procedure were explained to the patient. The patient verbalized understanding and wanted to proceed. Informed written consent was obtained. 2. Sedation: I provided direct face to face supervision of conscious sedation which was performed by an independent trained nurse. 25 mcg of Fentanyl and 1 mg of Versed were administered and that patient monitored for 82 minutes. 3. The right groin was prepped and draped is standard fashion. 4. Access: 2% Lidocaine was used for topical anesthesia. Using a combination of micropuncture and modified Seldinger technique a 4 Azerbaijani sheath was inserted into the right femoral artery. Venous access was obtained in the Right Femoral vein using modified Seldinger technique and micropuncture approach. A 7 Azerbaijani sheath was secured into place. 5. Left ventricular pressures were obtained using a 4 Azerbaijani JR4 catheter. 6. Coronary Arteriography was performed using 4 Azerbaijani JL4 and JR4 catheters. 0 mcg of nitroglycerin was administered via the intracoronary route prior to contrast opacification. 7. Right heart catheterization was performed with a 7 Azerbaijani TD Won Clair catheter. The catheter was advanced sequentially to the right atrium, right ventricle, pulmonary artery, and to the pulmonary capillary wedge position with pressures measured at each station and saturations drawn from the pulmonary artery for the estimation of cardiac output. Cardiac output by thermodilution was obtained. 8. Hemostasis: Following the procedure the arterial and venous sheaths were removed and manual compression applied. There was no bleeding or hematoma present. 9. Complications: There were no complications and the patient left the cardiac catheterization suite in satisfactory condition. 10. Of note, we had significant difficult traversing the tricuspid valve with the swan. We attempted a JR4 with a swan wire multiple times, but were unable to keep the wire in the RV when threading the swan. Ultimately, with wire support we were able to get up through the RV to PA. Unfortunately, there was no ability to wedge. CONTRAST: Total of 40 cc. RESULTS: HEMODYNAMICS: Noninvasive blood pressure (120/76/92) mmHg Right Heart Pressures (End-expiratory) Right atrial pressure 11 mmHg mean. Right ventricular pressure 70/11 mmHg. Pulmonary artery pressure 63/22/36 mmHg. Pulmonary capillary wedge pressure unable to be obtained. Left Heart Pressures (End-expiratory) Not obtained due to critical Derived Pressures Transpulmonary gradient N/A mmHg Diastolic pressure gradient N/A mmHg Transsystemic Gradient 81 mmHg Outputs and Resistances BSA 2.25 kg/m2 Hemoglobin 14.2 g/dl Heart Rate 80 beats/min Pulmonary Arterial Saturation 58% Systemic Arterial Saturation 96% AVO2 Difference 7.34 ml/dl Cardiac Output 125 x BSA Method (estimated VO2 257 ml/min) = 3.83 L/min, 1.70 L/min/m2. Thermodilution = 4.0 L/min, 1.78 L/min/m2 Vascular Resistances Pulmonary Vascular Resistance N/A Wood Units Systemic Vascular Resistance 20.25 Wood Units Derived Calculations Stroke Volume (CO/HR x 1000) = 50 mL Stroke Volume Index = SV/BSA = 22.22 mL/m2 Right Ventricular Stroke Work Index (SVI x (MPAP - CVP) = 555 ml/m2/mmHg Left Ventricular Stroke Work Index (SVI x (MAP - PCWP) = N/A ml/m2/mmHg Cardiac Power Output (MAP x CO/451): 0.82 Pulmonary artery pulsatility index ((PASP-PADP)/RAP) = 3.73 CORONARY ARTERIOGRAPHY: The left main coronary artery gives rise to the left anterior descending artery and left circumflex artery. The left main coronary artery is angiographically free of disease in its proximal, middle, and distal segment. The left anterior descending artery supplies the apex. There is no angiographically visible disease within the left anterior descending artery or its subsequent branches. The left circumflex artery is a moderate size vessel supplying the lateral wall. There is no angiographically visible disease within the left circumflex artery or its subsequent branches. The right coronary artery is a dominant vessel. There is no angiographically visible disease within the right coronary artery or its subsequent branches. DIAGNOSTIC Humza Fernandez NP CV CARDIAC CATH PROCEDURES Final Result * (ABNORMAL) POCT oxyhemoglobin (07/28/2024 5:14 PM CDT) SHOT DROPPER Oxyhemoglobin 59.2(L) >=65.0 % SHOT DROPPER Hemoglobin 13.8 13.0 - 17.5 g/dL [facility] SHOT DROPPER O2 content 11.3(L) 15.0 - 22.0 Vol % [facility] Anatomic Site aPOC Pulm Art left [facility] Blood 07/28/2024 5:14 PM CDT 07/28/2024 5:14 PM CDT us Nick Veliz MD LAB POCT ORDERABLES - DE VICE Final Result [facility] [place] [address] * (ABNORMAL) POCT oxyhemoglobin (07/28/2024 5:13 PM CDT) SHOT DROPPER Oxyhemoglobin 57.2(L) >=65.0 % SHOT DROPPER Hemoglobin 13.7 13.0 - 17.5 g/dL [facility] SHOT DROPPER O2 content 10.9(L) 15.0 - 22.0 Vol % [facility] Anatomic Site aPOC Pulm Art left [facility] Blood 07/28/2024 5:13 PM CDT 07/28/2024 5:13 PM CDT Nick Veliz MD LAB POCT ORDERABLES - DE VICE Final Result Performing Organization Address City/[facility]/ZIP Co de Phone Number [facility] [place] [address] * POCT glucose (07/28/2024 12:23 PM CDT) Glucose, POC 106 70 - 199 mg/dL Blood 07/28/2024 12:2 3 PM CDT 07/28/2024 12:23 PM CDT Nick Veliz MD LAB POCT ORDERABLES - DE VICE Final Result Performing Organization Address City/[facility] Co de Phone Number [facility] [place] [address] * (ABNORMAL) aPTT (07/28/2024 10:54 AM CDT) aPTT 52(H) 28 - 38 sec Comment: Interpretive Data Heparin therapeutic range: 66.0 - 100.0 seconds. Range based on correlation with therapeutic heparin activity range of 0.3 - 0.7 Units/mL. Current interpretive data was last revised on 2023. Blood 07/28/2024 10:5 4 AM CDT 07/28/2024 11:15 AM CDT Narrative [facility] - 07/28/2024 11:42 AM CDT Draw STAT PTT 2 hours after initiation of bivalirudin infusion, draw STAT PTT 2 hours after each dose change, and every 2 hours until 2 consecutive PTTs are within therapeutic range. Once two consecutive PTTs are therapeutic (50-80 seconds), then draw PTT every AM until bivalirudin is discontinued. us Renae Moseley DO LAB BLOOD ORDERABLE S Final Result Performing Organization Address City/[facility]/ZIP Co de Phone Number [facility] [place] [address] * POCT glucose (07/28/2024 8:18 AM CDT) Glucose, POC 88 70 - 199 mg/dL Blood 07/28/2024 8:18 AM CDT 07/28/2024 8:18 AM CDT Nick Veliz MD LAB POCT ORDERABLES - DE VICE Final Result Performing Organization Address [facility] Co de Phone Number [facility] [place] [address] * TRANSTHORACIC ECHO (TTE) COMPLETE W DOPPLER/CF W CONTRAST (07/28/2024 8:11 AM CDT) Anatomical Region Laterality Modality Ultrasound 07/28/2024 7:22 AM CDT Narrative 07/28/2024 8:40 AM CDT [facility] [place] [address] Transthoracic Echocardiographic Report Patient Name: SHEY SHAH C : 1950 (73y 11m) Gender: M Study Date: 07/28/2024 07:22:18 AM Ht(Inch): 73 Wt(Lb): 223.11 BSA: 2.28 Jacquard Loom Weaver: Yen Greenfield RDCS Location: [id number] Order Provider: NICK VELIZ Heart Rate: 121 BMI: 29.43 BP: 111 / 82 Ref Provider: NICK VELIZ PROCEDURES: Echocardiographic Report: Transthoracic complete echo with contrast, 2D, spectral and tissue Doppler, color flow Doppler, M-mode. Contrast: Contrast Enhancement was Employed: After initial imaging due to sub- optimal quality related to co-morbidity defined by patient's body habitus and due to suboptimal image quality with inadequate visualization of at least 2 of 16 LV wall segments in any view after initial imaging. Perflutren contrast was administered using the volume necessary to obtain adequate images. 0.8 ml Optison Administered, (2.2 ml wasted). INDICATIONS: Aortic Stenosis. CONCLUSIONS: 1. Normal left ventricular size based on volume index. Severely depressed left ventricular systolic function. The Ejection Fraction (Johnson's) is measured at 22 %. 2. Normal right ventricular systolic function. 3. Mildly dilated left atrium. 4. Moderate mitral annular calcification. Moderate mitral valve regurgitation. 5. Bicuspid aortic valve. Severely calcified aortic valve leaflets. Severely restricted aortic cusps. Likely severe aortic valve stenosis. The gradients across AV are likely underestimated due to low LVEF. 6. Mild to mod tricuspid regurgitation. The Estimated RVSP is : 48-53 mmHg. 7. Small pericardial effusion. Pleural effusion noted. 8. Normal aortic root size when indexed. COMPARISONS: No previous study available for comparison. ATTESTATION: I have personally reviewed and interpreted this study without fellow or resident. - DISCLAIMER: The study images and the final report will be retained in the patient chart by the Echo Laboratory for the legally required time period. This chart constitutes the legal record of any testing performed. FINDINGS: Left Ventricle: Normal left ventricular size based on volume index. Normal LV wall thickness. Severely depressed left ventricular systolic function. The Ejection Fraction (Johnson's) is measured at 22 %. Left ventricular diastolic function is indeterminate due to the presence of atrial fibrillation during the study. Right Ventricle: Normal right ventricular size. Normal right ventricular systolic function. Left Atrium: Mildly dilated left atrium. Right Atrium: Right atrial dilatation. Mitral Valve: Mitral valve leaflets appear mildly thickened. Moderate mitral annular calcification. Moderate mitral valve regurgitation. Aortic Valve: Bicuspid aortic valve. Severely calcified aortic valve leaflets. Severely restricted aortic cusps. Mild aortic valve regurgitation. Severe aortic valve stenosis. The mean transaortic gradient is 26 mmHg. The aortic valve area by the continuity equation (using VTI) is 0.67 cm2. Aortic valve dimensionless index is 0.18. Tricuspid Valve: Mildly thickened tricuspid valve. Mild to mod tricuspid regurgitation. The Estimated RVSP is : 48-53 mmHg. Pulmonic Valve: Mild pulmonic regurgitation. Pericardium: Small pericardial effusion. Aorta: Normal aortic root size when indexed. MEASUREMENTS: 2D/MM Value Range Doppler Value Range LVIDd 2D 5.24 cm [ 4.20 - 5.80 ] AV Peak Arslan 3.1 m/s [ 1.0 - 1.7 ] LVIDs 2D 4.68 cm [ 2.50 - 4.00 ] AV Peak PG 38.44 mmHg IVSd 2D 0.89 cm [ 0.60 - 1.00 ] AV Mean PG 26 mmHg LVPWd 2D 0.90 cm [ 0.60 - 1.00 ] AV VTI 60.2 cm LV Thickness Ratio 1.0 LVOT Peak Arslan 0.5 m/s [ 0.7 - 1.1 ] LV FS 2D 10.70 % [ 25.00 - 43.00 ] LVOT Peak PG 1.00 mmHg LV Mass 2D 174.56 g LVOT Mean PG 1 mmHg LV Mass Index 2D 76.56 g/m2 LVOT VTI 10.9 cm RWT 0.34 LVOT Diam 2.17 cm EDV Mod BP 134.04 ml [ 62.00 - 150.00 ] OBED VTI 0.67 cm2 LV EDV Index 58.79 ml/m2 LVOT/AV VTI 0.18 - Dimensionless index (DVI) ESV Mod BP 104.15 ml [ 21.00 - 61.00 ] RV S` 12.30 cm/sec EF Mod BP 22 % [ 52 - 72 ] TR Peak Arslan 3.9 m/s [ 1.0 - 2.8 ] LA Length 4C 6.03 cm TR Peak PG 60.8 mmHg LA Length 2C 4.62 cm LA Volume BP 60.12 ml LA Volume Index 26.37 ml/m2 [ 16.00 - 34.00 ] RV Base Dimen 2D 3.8 cm [ 2.5 - 4.2 ] TAPSE 1.84 cm [ 1.71 - 5.00 ] RA Volume 64.94 ml RA Volume Index 28.48 ml/m2 AoR Diam 2D 2.65 cm [ 3.10 - 3.70 ] Ao Root Index 1.16 cm/m2 [ 1.00 - 2.00 ] Electronically Signed By: Vasu Reddy M.D. 07/28/2024 8:40:24 AM CDT Procedure Note Vasu Reddy MD PhD - 07/28/2024 [facility] [place] [address] Transthoracic Echocardiographic Report Patient Name: SHEY SHAH C : 1950 (73y 11m) Gender: M Study Date: 07/28/2024 07:22:18 AM Ht(Inch): 73 Wt(Lb): 223.11 BSA: 2.28 Jacquard Loom Weaver: Yen Greenfield RDCS Location: [id number] Order Provider:NICK VELIZ Heart Rate: 121 BMI: 29.43 BP: 111 / 82 Ref Provider: NICK VELIZ PROCEDURES: Echocardiographic Report: Transthoracic complete echo with contrast, 2D,spectral and tissue Doppler, color flow Doppler, M-mode. Contrast: Contrast Enhancement was Employed: After initial imaging due tosub- optimal quality related to co-morbidity defined by patient's body habitus and dueto suboptimal image quality with inadequate visualization of at least 2 of 16 LV wallsegments in any view after initial imaging. Perflutren contrast was administered using thevolume necessary to obtain adequate images. 0.8 ml Optison Administered, (2.2 mlwasted). INDICATIONS: Aortic Stenosis. CONCLUSIONS: 1. Normal left ventricular size based on volume index. Severely depressedleft ventricular systolic function. The Ejection Fraction (Johnson's) ismeasured at 22 %. 2. Normal right ventricular systolic function. 3. Mildly dilated left atrium. 4. Moderate mitral annular calcification. Moderate mitral valveregurgitation. 5. Bicuspid aortic valve. Severely calcified aortic valve leaflets.Severely restricted aortic cusps. Likely severe aortic valve stenosis. The gradients across AVare likely underestimated due to low LVEF. 6. Mild to mod tricuspid regurgitation. The Estimated RVSP is : 48-53mmHg. 7. Small pericardial effusion. Pleural effusion noted. 8. Normal aortic root size when indexed. COMPARISONS: No previous study available for comparison. ATTESTATION: I have personally reviewed and interpreted this study without fellow orresident. - DISCLAIMER: The study images and the final report will be retained in the patientchart by the Echo Laboratory for the legally required time period. This chart constitutesthe legal record of any testing performed. FINDINGS: Left Ventricle: Normal left ventricular size based on volume index. NormalLV wall thickness. Severely depressed left ventricular systolic function. TheEjection Fraction (Johnson's) is measured at 22 %. Left ventricular diastolic function isindeterminate due to the presence of atrial fibrillation during the study. Right Ventricle: Normal right ventricular size. Normal right ventricularsystolic function. Left Atrium: Mildly dilated left atrium. Right Atrium: Right atrial dilatation. Mitral Valve: Mitral valve leaflets appear mildly thickened. Moderatemitral annular calcification. Moderate mitral valve regurgitation. Aortic Valve: Bicuspid aortic valve. Severely calcified aortic valveleaflets. Severely restricted aortic cusps. Mild aortic valve regurgitation. Severe aorticvalve stenosis. The mean transaortic gradient is 26 mmHg. The aortic valve area by thecontinuity equation (using VTI) is 0.67 cm2. Aortic valve dimensionless index is0.18. Tricuspid Valve: Mildly thickened tricuspid valve. Mild to mod tricuspidregurgitation. The Estimated RVSP is : 48-53 mmHg. Pulmonic Valve: Mild pulmonic regurgitation. Pericardium: Small pericardial effusion. Aorta: Normal aortic root size when indexed. MEASUREMENTS: 2D/MM Value Range DopplerValue Range LVIDd 2D 5.24 cm [ 4.20 - 5.80 ] AV Peak Vel3.1 m/s [ 1.0 - 1.7 ] LVIDs 2D 4.68 cm [ 2.50 - 4.00 ] AV Peak PG38.44 mmHg IVSd 2D 0.89 cm [ 0.60 - 1.00 ] AV Mean PG26 mmHg LVPWd 2D 0.90 cm [ 0.60 - 1.00 ] AV VTI60.2 cm LV Thickness Ratio 1.0 LVOT Peak Vel0.5 m/s [ 0.7 - 1.1 ] LV FS 2D 10.70 % [ 25.00 - 43.00 ] LVOT Peak PG1.00 mmHg LV Mass 2D 174.56 g LVOT Mean PG1 mmHg LV Mass Index 2D 76.56 g/m2 LVOT VTI10.9 cm RWT 0.34 LVOT Diam2.17 cm EDV Mod BP 134.04 ml [ 62.00 - 150.00 ] OBED VTI0.67 cm2 LV EDV Index 58.79 ml/m2 LVOT/AV VTI0.18 - Dimensionless index (DVI) ESV Mod BP 104.15 ml [ 21.00 - 61.00 ] RV S`12.30 cm/sec EF Mod BP 22 % [ 52 - 72 ] TR Peak Vel3.9 m/s [ 1.0 - 2.8 ] LA Length 4C 6.03 cm TR Peak PG60.8 mmHg LA Length 2C4.62 cm LA Volume BP60.12 ml LA Volume Index 26.37 ml/m2 [ 16.00 - 34.00 ] RV Base Dimen 2D 3.8 cm [ 2.5 - 4.2 ] TAPSE 1.84 cm [ 1.71 - 5.00 ] RA Yitkzy39.94 ml RA Volume Index28.48 ml/m2 AoR Diam 2D 2.65 cm [ 3.10 - 3.70 ] Ao Root Index 1.16 cm/m2 [ 1.00 - 2.00 ] Electronically Signed By: Vasu Reddy M.D. 07/28/2024 8:40:24 AM CDT Nick Veliz MD CV ECHO PROCEDURES Final Result * (ABNORMAL) aPTT (07/28/2024 6:12 AM CDT) Pathologist [facility] aPTT 49(H) 28 - 38 sec Comment: Interpretive Data Heparin therapeutic range: 66.0 - 100.0 seconds. Range based on correlation with therapeutic heparin activity range of 0.3 - 0.7 Units/mL. Current interpretive data was last revised on 2023. Blood 07/28/2024 6:12 AM CDT 07/28/2024 7:10 AM CDT Raheem KISER [facility] - 07/28/2024 7:34 AM CDT Draw STAT PTT 2 hours after initiation of bivalirudin infusion, draw STAT PTT 2 hours after each dose change, and every 2 hours until 2 consecutive PTTs are within therapeutic range. Once two consecutive PTTs are therapeutic (50-80 seconds), then draw PTT every AM until bivalirudin is discontinued. Renae Moseley DO LAB BLOOD ORDERABLE S Final Result [facility] [place] [address] * Infection Prevention Joce auris PCR, surveillance Axilla/Groin (07/28/2024 2:27 AM CDT) [facility] Joce auris DNA Not Detected Not Detected [facility] Comment: Interpretive Data Testing performed by [facility] using the [employer] lui 6800 Joce auris assay. This assay detects DNA from Joce auris using Real-Time PCR. This assay is laboratory developed and is not cleared by the [place] Food and Drug Administration. The performance characteristics have been verified by the [facility]. Axilla/Groin 07/28/2024 2:27 AM CDT 07/28/2024 3:10 AM CDT Herson Perla MD LAB MICROBIOLOGY - GENERAL ORDER VAHID Final Result Performing Organization Address [facility] Co de Phone Number [facility] [place] [address] [facility] * (ABNORMAL) aPTT (07/28/2024 2:27 AM CDT) aPTT 51(H) 28 - 38 sec Comment: Interpretive Data Heparin therapeutic range: 66.0 - 100.0 seconds. Range based on correlation with therapeutic heparin activity range of 0.3 - 0.7 Units/mL. Current interpretive data was last revised on 2023. Blood 07/28/2024 2:27 AM CDT 07/28/2024 3:13 AM CDT Narrative [facility] - 07/28/2024 3:36 AM CDT Draw STAT PTT 2 hours after initiation of bivalirudin infusion, draw STAT PTT 2 hours after each dose change, and every 2 hours until 2 consecutive PTTs are within therapeutic range. Once two consecutive PTTs are therapeutic (50-80 seconds), then draw PTT every AM until bivalirudin is discontinued. Renae Moseley DO LAB BLOOD ORDERABLE S Final Result Performing Organization Address [facility] Co de Phone Number [facility] [place] [address] * Type and screen (07/27/2024 10:23 PM CDT) ABO Rh A Positive Kumar, indirect Negative [facility] Blood 07/27/2024 10:2 3 PM CDT 07/27/2024 11:38 PM CDT Nick Veliz MD LAB BLOOD BANK TEST ORDChet MAYES Final Result Performing Organization Address City/[facility] Co de Phone Number [facility] Department [place] [address] * eGFR (07/27/2024 10:22 PM CDT) eGFR 69 >=60 mL/min/1. 73 m2 Comment: Interpretive Data [...] interpretive data was last reviewed 2021. Blood 07/27/2024 10:2 2 PM CDT 07/27/2024 11:31 PM CDT Kirstin Vidal NP LAB BLOOD ORDERABLES Final Result Performing Organization Address City/[facility]/ZIP Co de Phone Number [facility] Department [place] [address] * (ABNORMAL) Differential, auto (07/27/2024 10:22 PM CDT) Pathologist [facility] Neutrophil abs 7.3(H) 1.5 - 6.5 K/cumm Imm gran abs 0.1 0.0 - 0.1 K/cumm [facility] Lymphocyte abs 1.4 0.8 - 3.3 K/cumm [facility] Monocyte abs 1.3(H) 0.2 - 0.8 K/cumm [facility] Eosinophil abs 0.0 0.0 - 0.5 K/cumm [facility] Basophil abs 0.0 0.0 - 0.1 K/cumm [facility] Neutrophil pct 71.9 % [facility] Comment: Interpretive Data Percent cell count reference ranges are not reported, since discordance with absolute values may lead to misinterpretation of CBC data. Current Interpretive Data was last revised on 2017. Imm gran pct 0.5 % [facility] Comment: Interpretive Data Percent cell count reference ranges are not reported, since discordance with absolute values may lead to misinterpretation of CBC data. Current Interpretive Data was last revised on 2017. Lymphocyte pct 13.6 % [facility] Comment: Interpretive Data Percent cell count reference ranges are not reported, since discordance with absolute values may lead to misinterpretation of CBC data. Current Interpretive Data was last revised on 2017. Monocyte pct 13.3 % [facility] Comment: Interpretive Data Percent cell count reference ranges are not reported, since discordance with absolute values may lead to misinterpretation of CBC data. Current Interpretive Data was last revised on 2017. Eosinophil pct 0.4 % [facility] Comment: Interpretive Data Percent cell count reference ranges are not reported, since discordance with absolute values may lead to misinterpretation of CBC data. Current Interpretive Data was last revised on 2017. Basophil pct 0.3 % [facility] Comment: Interpretive Data Percent cell count reference ranges are not reported, since discordance with absolute values may lead to misinterpretation of CBC data. Current Interpretive Data was last revised on 2017. Blood 07/27/2024 10:2 2 PM CDT 07/27/2024 11:31 PM CDT Kirstin Vidal NP LAB BLOOD ORDERABLES Final Result [facility] [place] [address] * (ABNORMAL) CBC with auto differential (07/27/2024 10:22 PM CDT) [facility] WBC 10.1(H) 3.8 - 9.9 K/cumm Hgb 14.2 13.0 - 17.5 g/dL [facility] Hct 41.2 38.9 - 50.3 % [facility] Plt 276 150 - 400 K/cumm [facility] MPV 11.7 9.1 - 12.3 fL [facility] RBC 3.99(L) 4.30 - 5.80 M/cumm [facility] MCV 103.3(H) 81.3 - 96.4 fL [facility] MCH 35.6(H) 27.1 - 33.3 pg [facility] MCHC 34.5 32.3 - 35.7 g/dL [facility] RDW CV 12.5 11.1 - 14.9 % [facility] RDW SD 47.7 35.7 - 48.1 fL [facility] NRBC abs 0.00 0.00 - 0.01 K/cumm [facility] Blood 07/27/2024 10:2 2 PM CDT 07/27/2024 11:31 PM CDT Kirstin Vidal NP LAB BLOOD ORDERABLES Final Result [facility] [place] [address] * (ABNORMAL) aPTT (07/27/2024 10:22 PM CDT) [facility] aPTT 47(H) 28 - 38 sec Comment: Interpretive Data Heparin therapeutic range: 66.0 - 100.0 seconds. Range based on correlation with therapeutic heparin activity range of 0.3 - 0.7 Units/mL. Current interpretive data was last revised on 2023. Blood 07/27/2024 10:2 2 PM CDT 07/27/2024 11:32 PM CDT Narrative [facility] - 07/27/2024 11:55 PM CDT Draw STAT PTT 2 hours after initiation of bivalirudin infusion, draw STAT PTT 2 hours after each dose change, and every 2 hours until 2 consecutive PTTs are within therapeutic range. Once two consecutive PTTs are therapeutic (50-80 seconds), then draw PTT every AM until bivalirudin is discontinued. Renae Moseley DO LAB BLOOD ORDERABLE S Final Result [facility] [place] [address] * Phosphorus (07/27/2024 10:22 PM CDT) Phosphorus, pl 3.3 2.3 - 4.5 mg/dL Blood 07/27/2024 10:2 2 PM CDT 07/27/2024 11:31 PM CDT Kirstin Vidal RADIOLOGICAL HEALTH SPECIALIST LAB BLOOD ORDERABLES Final Result Performing Organization Address [facility] Co de Phone Number [facility] [place] [place] [address] * Magnesium (07/27/2024 10:22 PM CDT) Magnesium 1.9 1.4 - 2.5 mg/dL Blood 07/27/2024 10:2 2 PM CDT 07/27/2024 11:31 PM CDT Kirstin Vidal RADIOLOGICAL HEALTH SPECIALIST LAB BLOOD ORDERABLES Final Result Performing Organization Address City/[facility]/[place] [address] * Hepatic function panel (07/27/2024 10:22 PM CDT) Bilirubin, total 0.8 0.1 - 1.2 mg/dL Bilirubin, direct 0.3 0.1 - 0.3 mg/dL [facility] Protein, pl 6.9 6.5 - 8.5 g/dL [facility] Albumin 3.5 3.5 - 5.0 g/dL [facility] Alk phos 59 40 - 130 Units/L [facility] ALT 27 7 - 55 Units/L [facility] AST 34 10 - 50 Units/L [facility] Blood 07/27/2024 10:2 2 PM CDT 07/27/2024 11:31 PM CDT us Renae Moseley DO LAB BLOOD ORDERABLE S Final Result [facility] Department [place] [address] * (ABNORMAL) Basic metabolic panel (07/27/2024 10:22 PM CDT) Sodium 133(L) 135 - 145 mmol/L Potassium, pl 3.6 3.3 - 4.9 mmol/L [facility] Chloride 92(L) 97 - 110 mmol/L [facility] CO2 29 22 - 32 mmol/L [facility] Anion gap 12 2 - 15 mmol/L [facility] BUN 27(H) 6 - 25 mg/dL [facility] Creatinine 1.13 0.80 - 1.30 mg/dL [facility] Glucose 95 70 - 199 mg/dL [facility] Comment: Interpretive Data Fasting glucose >/= [...] interpretive data was last revised 2022. Calcium 8.5 8.5 - 10.3 mg/dL [facility] Blood 07/27/2024 10:2 2 PM CDT 07/27/2024 11:31 PM CDT Kirstin Vidal NP LAB BLOOD ORDERABLES Final Result Performing Organization Address [facility] Phone Number [facility] [place] [address] * POCT glucose (07/27/2024 4:58 PM CDT) Glucose, POC 114 70 - 199 mg/dL Blood 07/27/2024 4:58 PM CDT 07/27/2024 4:58 PM CDT Nick Veliz MD LAB POCT ORDERABLES - DE VICE Final Result Performing Organization Address [facility] Phone Number [facility] [place] [address] * POCT glucose (07/27/2024 12:22 PM CDT) Glucose, POC 145 70 - 199 mg/dL Blood 07/27/2024 12:2 2 PM CDT 07/27/2024 12:22 PM CDT Nick Veliz MD LAB POCT ORDERABLES - DE VICE Final Result Performing Organization Address [facility] Phone Number [facility] [place] [place] [address] * POCT glucose (07/27/2024 9:46 AM CDT) Glucose, POC 122 70 - 199 mg/dL Blood 07/27/2024 9:46 AM CDT 07/27/2024 9:46 AM CDT Nick Veliz MD LAB POCT ORDERABLES - DE VICE Final Result Performing Organization Address City/[facility]/ZIP Co de Phone Number [facility] [place] [address] * eGFR (07/26/2024 8:18 PM CDT) eGFR 67 >=60 mL/min/1. 73 m2 Comment: Interpretive Data [...] interpretive data was last reviewed 2021. Blood 07/26/2024 8:18 PM CDT 07/26/2024 8:36 PM CDT us Renae Moseley DO LAB BLOOD ORDERABLE S Final Result Performing Organization Address City/[facility]/ZIP Co de Phone Number [facility] Department [place] [address] * (ABNORMAL) Differential, auto (07/26/2024 8:18 PM CDT) Neutrophil abs 8.0(H) 1.5 - 6.5 K/cumm Imm gran abs 0.0 0.0 - 0.1 K/cumm [facility] Lymphocyte abs 1.4 0.8 - 3.3 K/cumm [facility] Monocyte abs 1.3(H) 0.2 - 0.8 K/cumm [facility] Eosinophil abs 0.0 0.0 - 0.5 K/cumm [facility] Basophil abs 0.0 0.0 - 0.1 K/cumm [facility] Neutrophil pct 73.8 % [facility] Comment: Interpretive Data Percent cell count reference ranges are not reported, since discordance with absolute values may lead to misinterpretation of CBC data. Current Interpretive Data was last revised on 2017. Imm gran pct 0.4 % [facility] Comment: Interpretive Data Percent cell count reference ranges are not reported, since discordance with absolute values may lead to misinterpretation of CBC data. Current Interpretive Data was last revised on 2017. Lymphocyte pct 13.1 % [facility] Comment: Interpretive Data Percent cell count reference ranges are not reported, since discordance with absolute values may lead to misinterpretation of CBC data. Current Interpretive Data was last revised on 2017. Monocyte pct 12.2 % [facility] Comment: Interpretive Data Percent cell count reference ranges are not reported, since discordance with absolute values may lead to misinterpretation of CBC data. Current Interpretive Data was last revised on 2017. Eosinophil pct 0.3 % [facility] Comment: Interpretive Data Percent cell count reference ranges are not reported, since discordance with absolute values may lead to misinterpretation of CBC data. Current Interpretive Data was last revised on 2017. Basophil pct 0.2 % [facility] Comment: Interpretive Data Percent cell count reference ranges are not reported, since discordance with absolute values may lead to misinterpretation of CBC data. Current Interpretive Data was last revised on 2017. Blood 07/26/2024 8:18 PM CDT 07/26/2024 8:36 PM CDT us Renae Moseley DO LAB BLOOD ORDERABLE S Final Result [facility] [place] [address] * (ABNORMAL) CBC with auto differential (07/26/2024 8:18 PM CDT) [facility] WBC 10.9(H) 3.8 - 9.9 K/cumm Hgb 14.1 13.0 - 17.5 g/dL [facility] Hct 41.6 38.9 - 50.3 % [facility] Plt 255 150 - 400 K/cumm [facility] MPV 11.0 9.1 - 12.3 fL [facility] RBC 4.02(L) 4.30 - 5.80 M/cumm [facility] MCV 103.5(H) 81.3 - 96.4 fL [facility] MCH 35.1(H) 27.1 - 33.3 pg [facility] MCHC 33.9 32.3 - 35.7 g/dL [facility] RDW CV 12.5 11.1 - 14.9 % [facility] RDW SD 47.8 35.7 - 48.1 fL [facility] NRBC abs 0.00 0.00 - 0.01 K/cumm [facility] Blood 07/26/2024 8:18 PM CDT 07/26/2024 8:36 PM CDT us Renae Moseley DO LAB BLOOD ORDERABLE S Final Result [facility] [place] [address] * (ABNORMAL) aPTT (07/26/2024 8:18 PM CDT) [facility] aPTT 56(H) 28 - 38 sec Comment: Interpretive Data Heparin therapeutic range: 66.0 - 100.0 seconds. Range based on correlation with therapeutic heparin activity range of 0.3 - 0.7 Units/mL. Current interpretive data was last revised on 2023. Blood 07/26/2024 8:1 8 PM CDT 07/26/2024 8:37 PM CDT Narrative [facility] - 07/26/2024 8:45 PM CDT Draw STAT PTT 2 hours after initiation of bivalirudin infusion, draw STAT PTT 2 hours after each dose change, and every 2 hours until 2 consecutive PTTs are within therapeutic range. Once two consecutive PTTs are therapeutic (50-80 seconds), then draw PTT every AM until bivalirudin is discontinued. Renae Dugolenski Giacomino DO LAB BLOOD ORDERABLE S Final Result Performing Organization Address City/[facility] Co de Phone Number [facility] [place] [address] * Phosphorus (07/26/2024 8:18 PM CDT) Phosphorus, pl 3.6 2.3 - 4.5 mg/dL Blood 07/26/2024 8:18 PM CDT 07/26/2024 8:36 PM CDT Renae Dugolenski Giacomino DO LAB BLOOD ORDERABLE S Final Result Performing Organization Address [facility] Co de Phone Number [facility] [place] [address] * Magnesium (07/26/2024 8:18 PM CDT) Pathologist [facility] Magnesium 2.0 1.4 - 2.5 mg/dL Blood 07/26/2024 8:18 PM CDT 07/26/2024 8:36 PM CDT Renae Dugolenski Giacomino DO LAB BLOOD ORDERABLE S Final Result Performing Organization Address [facility] Co de Phone Number [facility] [place] [address] * (ABNORMAL) Hepatic function panel (07/26/2024 8:18 PM CDT) Bilirubin, total 0.8 0.1 - 1.2 mg/dL Bilirubin, direct 0.3 0.1 - 0.3 mg/dL [facility] Comment:Reviewed Protein, pl 7.2 6.5 - 8.5 g/dL [facility] Albumin 3.4(L) 3.5 - 5.0 g/dL [facility] Alk phos 61 40 - 130 Units/L [facility] ALT 21 7 - 55 Units/L [facility] Comment:Repeated and Verifie d AST 34 10 - 50 Units/L [facility] Comment:Repeated and Verifie d Blood 07/26/2024 8:18 PM CDT 07/26/2024 8:36 PM CDT us Renae Moseley DO LAB BLOOD ORDERABLE S Final Result [facility] [place] [address] * (ABNORMAL) Basic metabolic panel (07/26/2024 8:18 PM CDT) Sodium 130(L) 135 - 145 mmol/L Potassium, pl 4.2 3.3 - 4.9 mmol/L [facility] Chloride 91(L) 97 - 110 mmol/L [facility] CO2 27 22 - 32 mmol/L [facility] Anion gap 12 2 - 15 mmol/L [facility] BUN 23 6 - 25 mg/dL [facility] Creatinine 1.15 0.80 - 1.30 mg/dL [facility] Glucose 134 70 - 199 mg/dL [facility] Comment: Interpretive Data Fasting glucose >/= [...] 2022. Calcium 8.7 8.5 - 10.3 mg/dL [facility] Blood 07/26/2024 8:18 PM CDT 07/26/2024 8:36 PM CDT us Renae Dugolenski Giacomino DO LAB BLOOD ORDERABLE S Final Result Performing Organization Address [facility] de Phone Number [facility] [place] [address] * POCT glucose (07/26/2024 4:22 PM CDT) Glucose, POC 128 70 - 199 mg/dL Blood 07/26/2024 4:22 PM CDT 07/26/2024 4:22 PM CDT us Renae Dugolenski Giacomino DO LAB POCT ORDERABLES - DEVICE Final Result Performing Organization Address [facility] Co de Phone Number [facility] [place] [address] * POCT glucose (07/26/2024 11:37 AM CDT) Pathologist [facility] Glucose, POC 165 70 - 199 mg/dL Blood 07/26/2024 11:3 7 AM CDT 07/26/2024 11:37 AM CDT us Renae Dugolenski Giacomino DO LAB POCT ORDERABLES - DEVICE Final Result Performing Organization Address [facility] de Phone Number [facility] [place] [address] * eGFR (07/26/2024 8:39 AM CDT) eGFR 82 >=60 mL/min/1. 73 m2 Comment: Interpretive Data [...] interpretive data was last reviewed 2021. Blood 07/26/2024 8:39 AM CDT 07/26/2024 8:50 AM CDT us Renae Dukirtiski Giacomino DO LAB BLOOD ORDERABLE S Final Result Performing Organization Address City/[facility] Co de Phone Number [facility] [place] [address] * Phosphorus (07/26/2024 8:39 AM CDT) Phosphorus, pl 4.1 2.3 - 4.5 mg/dL Blood 07/26/2024 8:39 AM CDT 07/26/2024 8:50 AM CDT us Renae Dugolenski Giacomino DO LAB BLOOD ORDERABLE S Final Result [facility] [place] [address] * Magnesium (07/26/2024 8:39 AM CDT) Magnesium 2.0 1.4 - 2.5 mg/dL Blood 07/26/2024 8:39 AM CDT 07/26/2024 8:50 AM CDT us Renae Camilo Giacomino DO LAB BLOOD ORDERABLE S Final Result [facility] [place] [address] * (ABNORMAL) Basic metabolic panel (07/26/2024 8:39 AM CDT) Sodium 133(L) 135 - 145 mmol/L Potassium, pl 3.6 3.3 - 4.9 mmol/L [facility] Comment:Repeated and Verifie d Chloride 91(L) 97 - 110 mmol/L [facility] CO2 28 22 - 32 mmol/L [facility] Anion gap 14 2 - 15 mmol/L [facility] BUN 21 6 - 25 mg/dL [facility] Creatinine 0.97 0.80 - 1.30 mg/dL [facility] Glucose 211(H) 70 - 199 mg/dL [facility] Comment: Interpretive Data Fasting glucose >/= [...] interpretive data was last revised 2022. Calcium 8.2(L) 8.5 - 10.3 mg/dL [facility] Blood 07/26/2024 8:39 AM CDT 07/26/2024 8:50 AM CDT Renae Saavedraacomino DO LAB BLOOD ORDERABLE S Final Result [facility] [place] [address] * POCT glucose (07/26/2024 7:35 AM CDT) Glucose, POC 149 70 - 199 mg/dL Blood 07/26/2024 7:35 AM CDT 07/26/2024 7:35 AM CDT Renae Dugolenski Giacomino DO LAB POCT ORDERABLES - DEVICE Final Result Performing Organization Address City/[facility]/ZIP Co de Phone Number [facility] [place] [address] * Potassium, whole blood (07/26/2024 2:23 AM CDT) [facility] Potassium, bld 3.9 3.3 - 4.9 mmol/L Blood 07/26/2024 2:23 AM CDT 07/26/2024 2:30 AM CDT Renae DuJamiilenski Giacomino DO LAB BLOOD ORDERABLE S Final Result Performing Organization Address City/[facility] de Phone Number [facility] [place] [address] * (ABNORMAL) aPTT (07/26/2024 2:23 AM CDT) [facility] aPTT 58(H) 28 - 38 sec Comment: Interpretive Data Heparin therapeutic range: 66.0 - 100.0 seconds. Range based on correlation with therapeutic heparin activity range of 0.3 - 0.7 Units/mL. Current interpretive data was last revised on 2023. Blood 07/26/2024 2:23 AM CDT 07/26/2024 2:36 AM CDT Narrative [facility] - 07/26/2024 2:45 AM CDT Draw STAT PTT 2 hours after initiation of bivalirudin infusion, draw STAT PTT 2 hours after each dose change, and every 2 hours until 2 consecutive PTTs are within therapeutic range. Once two consecutive PTTs are therapeutic (50-80 seconds), then draw PTT every AM until bivalirudin is discontinued. us Renae DuJamiilenski Giacomino DO LAB BLOOD ORDERABLE S Final Result [facility] [place] [address] * POCT glucose (07/25/2024 8:51 PM CDT) Glucose, POC 151 70 - 199 mg/dL Blood 07/25/2024 8:51 PM CDT 07/25/2024 8:51 PM CDT Rneae DuPOINT [employer] Giacomino DO LAB POCT ORDERABLES - DEVICE Final Result Performing Organization Address [facility] [facility] Co de Phone Number [facility] [place] [address] * eGFR (07/25/2024 8:19 PM CDT) eGFR 72 >=60 mL/min/1. 73 m2 Comment: Interpretive Data [...] interpretive data was last reviewed 2021. Blood 07/25/2024 8:19 PM CDT 07/25/2024 8:35 PM CDT us Renae Leslee Moseley DO LAB BLOOD ORDERABLE S Final Result [facility] [place] [address] * (ABNORMAL) Differential, auto (07/25/2024 8:19 PM CDT) Neutrophil abs 8.2(H) 1.5 - 6.5 K/cumm Imm gran abs 0.1 0.0 - 0.1 K/cumm [facility] Lymphocyte abs 1.2 0.8 - 3.3 K/cumm [facility] Monocyte abs 1.5(H) 0.2 - 0.8 K/cumm [facility] Eosinophil abs 0.0 0.0 - 0.5 K/cumm [facility] Basophil abs 0.0 0.0 - 0.1 K/cumm [facility] Neutrophil pct 74.7 % [facility] Comment: Interpretive Data Percent cell count reference ranges are not reported, since discordance with absolute values may lead to misinterpretation of CBC data. Current Interpretive Data was last revised on 2017. Imm gran pct 0.5 % [facility] Comment: Interpretive Data Percent cell count reference ranges are not reported, since discordance with absolute values may lead to misinterpretation of CBC data. Current Interpretive Data was last revised on 2017. Lymphocyte pct 11.0 % [facility] Comment: Interpretive Data Percent cell count reference ranges are not reported, since discordance with absolute values may lead to misinterpretation of CBC data. Current Interpretive Data was last revised on 2017. Monocyte pct 13.7 % [facility] Comment: Interpretive Data Percent cell count reference ranges are not reported, since discordance with absolute values may lead to misinterpretation of CBC data. Current Interpretive Data was last revised on 2017. Eosinophil pct 0.0 % [facility] Comment: Interpretive Data Percent cell count reference ranges are not reported, since discordance with absolute values may lead to misinterpretation of CBC data. Current Interpretive Data was last revised on 2017. Basophil pct 0.1 % [facility] Comment: Interpretive Data Percent cell count reference ranges are not reported, since discordance with absolute values may lead to misinterpretation of CBC data. Current Interpretive Data was last revised on 2017. Blood 07/25/2024 8:19 PM CDT 07/25/2024 8:35 PM CDT us Renae Camilo Giacomino DO LAB BLOOD ORDERABLE S Final Result [facility] [place] [address] * (ABNORMAL) CBC with auto differential (07/25/2024 8:19 PM CDT) WBC 10.9(H) 3.8 - 9.9 K/cumm Hgb 13.5 13.0 - 17.5 g/dL [facility] Hct 39.4 38.9 - 50.3 % [facility] Plt 239 150 - 400 K/cumm [facility] MPV 11.0 9.1 - 12.3 fL [facility] RBC 3.75(L) 4.30 - 5.80 M/cumm [facility] MCV 105.1(H) 81.3 - 96.4 fL [facility] MCH 36.0(H) 27.1 - 33.3 pg [facility] MCHC 34.3 32.3 - 35.7 g/dL [facility] RDW CV 12.8 11.1 - 14.9 % [facility] RDW SD 49.1(H) 35.7 - 48.1 fL [facility] NRBC abs 0.00 0.00 - 0.01 K/cumm [facility] Blood 07/25/2024 8:19 PM CDT 07/25/2024 8:35 PM CDT us Renae Duradha Giacomino DO LAB BLOOD ORDERABLE S Final Result [facility] [place] [address] * Phosphorus (07/25/2024 8:19 PM CDT) [facility] Phosphorus, pl 3.8 2.3 - 4.5 mg/dL Comment:Hemolyzed; result ma y be falsely elevated Blood 07/25/2024 8:19 PM CDT 07/25/2024 8:35 PM CDT Renae Dualma rosalenski Giacomino DO LAB BLOOD ORDERABLE S Final Result [facility] [place] [address] * Magnesium (07/25/2024 8:19 PM CDT) [facility] Magnesium 2.2 1.4 - 2.5 mg/dL Blood 07/25/2024 8:19 PM CDT 07/25/2024 8:35 PM CDT Renea Mary Ellenski Giacomino DO LAB BLOOD ORDERABLE S Final Result [facility] [place] [address] * (ABNORMAL) Hepatic function panel (07/25/2024 8:19 PM CDT) [facility] Bilirubin, total 0.7 0.1 - 1.2 mg/dL Bilirubin, direct See Comment 0.1 - 0.3 mg/dL [facility] Comment:Credited; Hemolyzed Specimen Protein, pl 7.2 6.5 - 8.5 g/dL [facility] Albumin 3.4(L) 3.5 - 5.0 g/dL [facility] Alk phos 52 40 - 130 Units/L [facility] Comment:Hemolyzed; result ma y be falsely decreased ALT See Comment 7 - 55 Units/L [facility] Comment:Credited; Hemolyzed Specimen AST See Comment 10 - 50 Units/L [facility] Comment:Credited; Hemolyzed Specimen Blood 07/25/2024 8:19 PM CDT 07/25/2024 8:35 PM CDT Renae Moseley DO LAB BLOOD ORDERABLE S Final Result [facility] [place] [address] * (ABNORMAL) Basic metabolic panel (07/25/2024 8:19 PM CDT) Sodium 132(L) 135 - 145 mmol/L Potassium, pl See Comment 3.3 - 4.9 mmol/L [facility] Comment:Credited; Hemolyzed Specimen Chloride 93(L) 97 - 110 mmol/L [facility] CO2 26 22 - 32 mmol/L [facility] Anion gap 13 2 - 15 mmol/L [facility] BUN 22 6 - 25 mg/dL [facility] Creatinine 1.08 0.80 - 1.30 mg/dL [facility] Glucose 154 70 - 199 mg/dL [facility] Comment: Interpretive Data Fasting glucose >/= [...] interpretive data was last revised 2022. Calcium 8.3(L) 8.5 - 10.3 mg/dL [facility] Blood 07/25/2024 8:19 PM CDT 07/25/2024 8:35 PM CDT us Renae Dugolenski Giacomino DO LAB BLOOD ORDERABLE S Final Result Performing Organization Address City/[facility]/ZIP Co de Phone Number [facility] [place] [place] [address] * POCT glucose (07/25/2024 4:53 PM CDT) Glucose, POC 141 70 - 199 mg/dL Blood 07/25/2024 4:53 PM CDT 07/25/2024 4:53 PM CDT us Renae Dugolenski Giacomino DO LAB POCT ORDERABLES - DEVICE Final Result Performing Organization Address [facility] Co de Phone Number [facility] [place] [place] [address] * (ABNORMAL) aPTT (07/25/2024 12:29 PM CDT) aPTT 55(H) 28 - 38 sec Comment: Interpretive Data Heparin therapeutic range: 66.0 - 100.0 seconds. Range based on correlation with therapeutic heparin activity range of 0.3 - 0.7 Units/mL. Current interpretive data was last revised on 2023. Blood 07/25/2024 12:2 9 PM CDT 07/25/2024 12:45 PM CDT Narrative [facility] - 07/25/2024 1:08 PM CDT Draw STAT PTT 2 hours after initiation of bivalirudin infusion, draw STAT PTT 2 hours after each dose change, and every 2 hours until 2 consecutive PTTs are within therapeutic range. Once two consecutive PTTs are therapeutic (50-80 seconds), then draw PTT every AM until bivalirudin is discontinued. us Renae Dugolenski Giacomino DO LAB BLOOD ORDERABLE S Final Result Performing Organization Address [facility] Co de Phone Number [facility] [place] [place] [address] * POCT glucose (07/25/2024 11:48 AM CDT) Glucose, POC 128 70 - 199 mg/dL Blood 07/25/2024 11:4 8 AM CDT 07/25/2024 11:48 AM CDT us Renae Moseley DO LAB POCT ORDERABLES - DEVICE Final Result [facility] [place] [address] * XR Chest 1 View (07/25/2024 11:30 AM CDT) Anatomical Region Laterality Modality Body, Chest N/A Computed Radiogr aphy 07/25/2024 11:4 4 AM CDT Impressions 07/25/2024 11:49 AM CDT The current study is compared with the prior radiograph dated 07/25/2024. Left peripherally inserted central venous catheter tip overlies the right superior vena cava. Similar appearance of small bilateral pleural effusions with associated atelectasis. No pneumothorax. Mild pulmonary edema. The cardiomediastinal silhouette is stable. Dictated by: Brina Hoff MD The radiology attending physician has personally reviewed this study, and had reviewed and/or edited this written report and agrees with it. Electronically signed by: Juanito Barlow M.D. Narrative 07/25/2024 11:49 AM CDT EXAMINATION: 1 view chest radiograph Procedure Note Juanito Barlow MD - 07/25/2024 EXAMINATION: 1 view chest radiograph IMPRESSION: The current study is compared with the prior radiograph dated 07/25/2024. Left peripherally inserted central venous catheter tip overlies the right superior vena cava. Similar appearance of small bilateral pleural effusions with associated atelectasis. No pneumothorax. Mild pulmonary edema. The cardiomediastinal silhouette is stable. Dictated by: Brina Hoff MD The radiology attending physician has personally reviewed this study, and had reviewed and/or edited this written report and agrees with it. Electronically signed by: Juanito Barlow M.D. us Renae Moseley DO IMG XR PROCEDURES F inal Result * (ABNORMAL) aPTT (07/25/2024 10:31 AM CDT) aPTT 56(H) 28 - 38 sec Comment: Interpretive Data Heparin therapeutic range: 66.0 - 100.0 seconds. Range based on correlation with therapeutic heparin activity range of 0.3 - 0.7 Units/mL. Current interpretive data was last revised on 2023. Blood 07/25/2024 10:3 1 AM CDT 07/25/2024 10:41 AM CDT Raheem [facility] - 07/25/2024 11:05 AM CDT Draw STAT PTT 2 hours after initiation of bivalirudin infusion, draw STAT PTT 2 hours after each dose change, and every 2 hours until 2 consecutive PTTs are within therapeutic range. Once two consecutive PTTs are therapeutic (50-80 seconds), then draw PTT every AM until bivalirudin is discontinued. Renae Moseley DO LAB BLOOD ORDERABLE S Final Result [facility] [place] [address] * eGFR (07/25/2024 7:58 AM CDT) eGFR 82 >=60 mL/min/1. 73 m2 Comment: Interpretive Data [...] interpretive data was last reviewed 2021. Blood 07/25/2024 7:58 AM CDT 07/25/2024 8:21 AM CDT us Renae Dugolenski Giacomino DO LAB BLOOD ORDERABLE S Final Result Performing Organization Address City/[facility]/ZIP Co de Phone Number [facility] [place] [address] * Thyroid Function [place] (07/25/2024 7:58 AM CDT) TSH 4.07 0.30 - 4.20 mcIUnit/mL Blood 07/25/2024 7:58 AM CDT 07/25/2024 8:21 AM CDT us Renae Dugolenski Giacomino DO LAB BLOOD ORDERABLE S Final Result Performing Organization Address City/[facility] Co de Phone Number [facility] [place] [address] * T4, free (07/25/2024 7:58 AM CDT) Free T4 1.60 0.90 - 1.70 ng/dL Blood 07/25/2024 7:58 AM CDT 07/25/2024 8:21 AM CDT us Renae Dugolenski Giacomino DO LAB BLOOD ORDERABLE S Final Result Performing Organization Address City/[facility] Co de Phone Number [facility] [place] [address] * Phosphorus (07/25/2024 7:58 AM CDT) [facility] Phosphorus, pl 4.5 2.3 - 4.5 mg/dL Blood 07/25/2024 7:58 AM CDT 07/25/2024 8:18 AM CDT Renae Dualma rosalenski Giacomino DO LAB BLOOD ORDERABLE S Final Result [facility] Department [place] [address] * (ABNORMAL) Magnesium (07/25/2024 7:58 AM CDT) [facility] Magnesium 2.6(H) 1.4 - 2.5 mg/dL Blood 07/25/2024 7:58 AM CDT 07/25/2024 8:18 AM CDT Renae BiancaMedkirtiski Giacomino DO LAB BLOOD ORDERABLE S Final Result [facility] [place] [address] * (ABNORMAL) Basic metabolic panel (07/25/2024 7:58 AM CDT) [facility] Sodium 134(L) 135 - 145 mmol/L Potassium, pl 3.6 3.3 - 4.9 mmol/L [facility] Chloride 94(L) 97 - 110 mmol/L [facility] CO2 28 22 - 32 mmol/L [facility] Anion gap 12 2 - 15 mmol/L [facility] BUN 15 6 - 25 mg/dL [facility] Creatinine 0.97 0.80 - 1.30 mg/dL [facility] Glucose 123 70 - 199 mg/dL [facility] Comment: Interpretive Data Fasting glucose >/= [...] interpretive data was last revised 2022. Calcium 8.6 8.5 - 10.3 mg/dL [facility] Blood 07/25/2024 7:58 AM CDT 07/25/2024 8:18 AM CDT Renae Dugolenski Giacomino DO LAB BLOOD ORDERABLE S Final Result [facility] [place] [address] * POCT glucose (07/25/2024 7:57 AM CDT) Glucose, POC 126 70 - 199 mg/dL Blood 07/25/2024 7:57 AM CDT 07/25/2024 7:57 AM CDT Avesthageni Giacomino DO LAB POCT ORDERABLES - DEVICE Final Result Performing Organization Address City/[facility]/ZIP Co de Phone Number [facility] [place] [address] * aPTT (07/25/2024 7:53 AM CDT) aPTT 33 28 - 38 sec Comment: Interpretive Data Heparin therapeutic range: 66.0 - 100.0 seconds. Range based on correlation with therapeutic heparin activity range of 0.3 - 0.7 Units/mL. Current interpretive data was last revised on 2023. Blood 07/25/2024 7:53 AM CDT 07/25/2024 8:19 AM CDT Narrative [facility] - 07/25/2024 8:54 AM CDT Baseline prior to bivalirudin initiation. us Renae Gustafsoni Giacomino DO LAB BLOOD ORDERABLE S Final Result [facility] [place] [address] * (ABNORMAL) Protime-INR (07/25/2024 7:53 AM CDT) [facility] PT 14.5(H) 9.7 - 13.0 sec INR 1.33(H) 0.90 - 1.20 [facility] Comment: Interpretive data Oral anticoagulant therapeutic ranges: Venous thromboembolism prophylaxis or treatment: 2.0-3.0 CARDIOLOGY Standard range: 2.0-3.0 High-intensity range: 2.5-3.5 Refer to indication-specific guidelines for appropriate target ranges for prosthetic heart valve replacement. Current interpretive data was last revised on 2019. Blood 07/25/2024 7:53 AM CDT 07/25/2024 8:19 AM CDT Narrative [facility] - 07/25/2024 8:54 AM CDT Baseline prior to bivalirudin initiation. Renae Camilo Giacomino DO LAB BLOOD ORDERABLE S Final Result Performing Organization Address City/[facility] Co de Phone Number [facility] [place] [address] * Respiratory pathogen panel Nasopharyngeal (07/25/2024 6:43 AM CDT) [facility] Influenza A RNA Not Detected Not Detected Influenza B RNA Not Detected Not Detected [facility] RSV RNA Not Detected Not Detected [facility] COVID-19 RNA Not Detected Not Detected [facility] Coronavirus 229E RNA Not Detected Not Detected [facility] Coronavirus HKU1 RNA Not Detected Not Detected [facility] Coronavirus NL63 RNA Not Detected Not Detected [facility] Coronavirus OC43 RNA Not Detected Not Detected [facility] Adenovirus DNA Not Detected Not Detected [facility] Metapneumovirus RNA Not Detected Not Detected [facility] Rhinovirus/Enterov irus RNA Not Detected Not Detected [facility] Parainfluenza 1 RNA Not Detected Not Detected [facility] Parainfluenza 2 RNA Not Detected Not Detected [facility] Parainfluenza 3 RNA Not Detected Not Detected [facility] Parainfluenza 4 RNA Not Detected Not Detected [facility] B. pertussis DNA Not Detected Not Detected [facility] B. parapertussis DNA Not Detected Not Detected [facility] C. pneumoniae DNA Not Detected Not Detected [facility] M. pneumoniae DNA Not Detected Not Detected [facility] Nasopharyngeal 07/25/2024 6: 43 AM CDT 07/25/2024 7:00 AM CDT Narrative [facility] - 07/25/2024 8:12 AM CDT Is the Patient experiencing symptoms consistent with COVID?->Unknown Surveillance testing for transplant patient?->No Interpretive Data The [employer] FilmArray Respiratory Panel (RP2.1) assay is a [...] assay has FDA clearance for testing of RADIOLOGICAL HEALTH SPECIALIST swabs. The performance of additional specimen types has been assessed by the performing laboratory. The performance characteristics of this assay have been determined by [facility] Molecular Infectious Disease Laboratory. Current interpretive data was last revised on 22. Renae Moseley DO LAB MICROBIOLOGY - GENERAL ORDERABLES Final Result [facility] [place] [address] * XR Chest 1 View (07/25/2024 4:34 AM CDT) Anatomical Region Laterality Modality Body, Chest N/A Digital Radiogra phy 07/25/2024 8:41 AM CDT Impressions 07/25/2024 9:25 AM CDT The current study is compared with the prior radiograph dated 06/21/2024, CT 06/21/2024 Bilateral small layering pleural effusions are new from prior. Mild pulmonary edema. There is no pneumothorax. The heart and mediastinal contours are stable. Dictated by: Rylan Bobo M.D. The radiology attending physician has personally reviewed this study, and had reviewed and/or edited this written report and agrees with it. Electronically signed by: Piero Bowling M.D. Narrative 07/25/2024 9:25 AM CDT EXAMINATION: 1 view chest radiograph Procedure Note Piero Bowling MD - 07/25/2024 EXAMINATION: 1 view chest radiograph IMPRESSION: The current study is compared with the prior radiograph dated 06/21/2024, CT 06/21/2024 Bilateral small layering pleural effusions are new from prior. Mild pulmonary edema. There is no pneumothorax. The heart and mediastinal contours are stable. Dictated by: Rylan Bobo M.D. The radiology attending physician has personally reviewed this study, and had reviewed and/or edited this written report and agrees with it. Electronically signed by: Piero Bowling M.D. us Nick Veliz MD IMG XR PROCEDURES Final Result * Troponin I high-sensitivity (07/25/2024 3:45 AM CDT) Pathologist [facility] Trop I hs 33 <=35 ng/L Comment: Interpretive Data For further hscTnI resources including the diagnostic algorithm and an aid in interpretation, copy and paste this link: [email or web address]/[email or web address] Current Interpretive Data last revised 2019. Blood 07/25/2024 3:45 AM CDT 07/25/2024 4:16 AM CDT us Nick Veliz MD LAB BLOOD ORDERABLES Fin al Result [facility] [place] [address] * eGFR (07/25/2024 3:45 AM CDT) eGFR 72 >=60 mL/min/1. 73 m2 Comment: Interpretive Data [...] of Race in Diagnosing Kidney Disease, JASN 202). The CKD-EPI equation should not be used for patients with unstable renal function and has not been validated in children and those over 70. Current interpretive data was last reviewed 2021. Blood 07/25/2024 3:45 AM CDT 07/25/2024 4:15 AM CDT us Nick Veliz MD LAB BLOOD ORDERABLES Fin al Result [facility] [place] [address] * (ABNORMAL) Differential, auto (07/25/2024 3:45 AM CDT) Neutrophil abs 8.4(H) 1.5 - 6.5 K/cumm Imm gran abs 0.1 0.0 - 0.1 K/cumm [facility] Lymphocyte abs 1.2 0.8 - 3.3 K/cumm [facility] Monocyte abs 1.5(H) 0.2 - 0.8 K/cumm [facility] Eosinophil abs 0.0 0.0 - 0.5 K/cumm [facility] Basophil abs 0.0 0.0 - 0.1 K/cumm [facility] Neutrophil pct 74.7 % [facility] Comment: Interpretive Data Percent cell count reference ranges are not reported, since discordance with absolute values may lead to misinterpretation of CBC data. Current Interpretive Data was last revised on 2017. Imm gran pct 0.5 % [facility] Comment: Interpretive Data Percent cell count reference ranges are not reported, since discordance with absolute values may lead to misinterpretation of CBC data. Current Interpretive Data was last revised on 2017. Lymphocyte pct 11.1 % [facility] Comment: Interpretive Data Percent cell count reference ranges are not reported, since discordance with absolute values may lead to misinterpretation of CBC data. Current Interpretive Data was last revised on 2017. Monocyte pct 13.3 % [facility] Comment: Interpretive Data Percent cell count reference ranges are not reported, since discordance with absolute values may lead to misinterpretation of CBC data. Current Interpretive Data was last revised on 2017. Eosinophil pct 0.0 % [facility] Comment: Interpretive Data Percent cell count reference ranges are not reported, since discordance with absolute values may lead to misinterpretation of CBC data. Current Interpretive Data was last revised on 2017. Basophil pct 0.4 % [facility] Comment: Interpretive Data Percent cell count reference ranges are not reported, since discordance with absolute values may lead to misinterpretation of CBC data. Current Interpretive Data was last revised on 2017. Blood 07/25/2024 3:45 AM CDT 07/25/2024 4:15 AM CDT Nick Veliz MD LAB BLOOD ORDERABLES Fin al Result [facility] [place] [address] * (ABNORMAL) Pro B-type natriuretic peptide (07/25/2024 3:45 AM CDT) NT-proBNP 8,671(H) <=300 pg/mL Comment: Interpretive Comments: A. Dyspnea [...] et.al. Eur Heart J. 2006:27:330-337. 2. John ROBIN, Bob QUILES. J. AM Eddie Cardiol: Cardiovasc Imag. 2009;2: 216- 225. Interpretive Data Last Revised Date: 2017. Blood 07/25/2024 3:45 AM CDT 07/25/2024 4:15 AM CDT Nick Pippa Veliz MD LAB BLOOD ORDERABLES Fin al Result Performing Organization Address City/State/[facility] Co de Phone Number [facility] [place] [address] * (ABNORMAL) CBC with auto differential (07/25/2024 3:45 AM CDT) WBC 11.2(H) 3.8 - 9.9 K/cumm Hgb 13.9 13.0 - 17.5 g/dL [facility] Hct 40.2 38.9 - 50.3 % [facility] Plt 244 150 - 400 K/cumm [facility] MPV 10.8 9.1 - 12.3 fL [facility] RBC 3.91(L) 4.30 - 5.80 M/cumm [facility] MCV 102.8(H) 81.3 - 96.4 fL [facility] MCH 35.5(H) 27.1 - 33.3 pg [facility] MCHC 34.6 32.3 - 35.7 g/dL [facility] RDW CV 12.9 11.1 - 14.9 % [facility] RDW SD 49.1(H) 35.7 - 48.1 fL [facility] NRBC abs 0.00 0.00 - 0.01 K/cumm [facility] Blood 07/25/2024 3:45 AM CDT 07/25/2024 4:15 AM CDT us Nick Veliz MD LAB BLOOD ORDERABLES Fin al Result Performing Organization Address [facility] [facility] de Phone Number [facility] [place] [address] * Lactate, whole blood (07/25/2024 3:45 AM CDT) Pathologist [facility] Lactate, bld 1.9 0.7 - 2.0 mmol/L Blood 07/25/2024 3:45 AM CDT 07/25/2024 4:03 AM CDT Nick Veliz MD LAB BLOOD ORDERABLES Fin al Result Performing Organization Address [facility] de Phone Number [facility] [place] [address] * aPTT (07/25/2024 3:45 AM CDT) Pathologist [facility] aPTT 37 28 - 38 sec Comment: Interpretive Data Heparin therapeutic range: 66.0 - 100.0 seconds. Range based on correlation with therapeutic heparin activity range of 0.3 - 0.7 Units/mL. Current interpretive data was last revised on 2023. Blood 07/25/2024 3:45 AM CDT 07/25/2024 4:15 AM CDT us Nick Veliz MD LAB BLOOD ORDERABLES Fin al Result Performing Organization Address [facility] de Phone Number [facility] [place] [address] * (ABNORMAL) Protime-INR (07/25/2024 3:45 AM CDT) PT 16.2(H) 9.7 - 13.0 sec INR 1.49(H) 0.90 - 1.20 [facility] Comment: Interpretive data Oral anticoagulant therapeutic ranges: Venous thromboembolism prophylaxis or treatment: 2.0-3.0 CARDIOLOGY Standard range: 2.0-3.0 High-intensity range: 2.5-3.5 Refer to indication-specific guidelines for appropriate target ranges for prosthetic heart valve replacement. Current interpretive data was last revised on 2019. Blood 07/25/2024 3:45 AM CDT 07/25/2024 4:15 AM CDT us Nick Veliz MD LAB BLOOD ORDERABLES Fin al Result Performing Organization Address [facility] de Phone Number [facility] Department [place] [address] * Type and screen (07/25/2024 3:45 AM CDT) Pathologist [facility] ABO Rh A Positive Kumar, indirect Negative [facility] Blood 07/25/2024 3:45 AM CDT 07/25/2024 4:12 AM CDT us Nick Veliz MD LAB BLOOD BANK TEST ORDE RABLES Final Result Performing Organization Address [facility] de Phone Number [facility] Department [place] [address] * (ABNORMAL) Phosphorus (07/25/2024 3:45 AM CDT) Pathologist [facility] Phosphorus, pl 4.7(H) 2.3 - 4.5 mg/dL Blood 07/25/2024 3:45 AM CDT 07/25/2024 4:15 AM CDT us Nick Veliz MD LAB BLOOD ORDERABLES Fin al Result Performing Organization Address [facility]/ZIP Co de Phone Number [facility] [place] [address] * Magnesium (07/25/2024 3:45 AM CDT) [facility] Magnesium 1.6 1.4 - 2.5 mg/dL Blood 07/25/2024 3:45 AM CDT 07/25/2024 4:15 AM CDT Result [facility] Nick Veliz MD LAB BLOOD ORDERABLES Fin al Result Performing Organization Address [facility] [place] [address] * Hemoglobin A1c (07/25/2024 3:45 AM CDT) [facility] Hgb A1C 5.3 4.0 - 5.6 % Estimated Average Glucose 105 mg/dL [facility] Comment: The ADA recommends reporting an estimated Average Glucose (eAG) with all Hemoglobin A1c results using the equation derived from a study of 507 normal and diabetic adults. Minority populations were underrepresented and children were not included. (Diabetes Care 2020; 43(S1): S66-S76). The eAG is not equivalent to a fasting glucose. Blood 07/25/2024 3:45 AM CDT 07/25/2024 4:16 AM CDT Result [facility] Nick Veliz MD LAB BLOOD ORDERABLES Fin al Result Performing Organization Address City/[facility] Co de Phone Number [facility] [place] [address] * Folate (07/25/2024 3:45 AM CDT) [facility] Folic acid >20.0 >=5.0 ng/mL Blood 07/25/2024 3:45 AM CDT 07/25/2024 4:15 AM CDT Result [facility] Renae Camilo Giacomino DO LAB BLOOD ORDERABLE S Final Result [facility] [place] [address] * (ABNORMAL) Vitamin B12 (07/25/2024 3:45 AM CDT) Vitamin B12 1,323(H) 230 - 1,250 pg/mL Blood 07/25/2024 3:45 AM CDT 07/25/2024 4:15 AM CDT Renae Saavedraacomino DO LAB BLOOD ORDERABLE S Final Result Performing Organization Address City/[facility] Co de Phone Number [facility] [place] [address] * Lipid panel (07/25/2024 3:45 AM CDT) Cholesterol 131 30 - 199 mg/dL Comment: Interpretive Data Ages < or = 19 years Acceptable: <170 mg/dL Borderline high: 170-199 mg/dL High: >or= 200 mg/dL Ages > or = 20 years Desirable: <200 mg/dL Borderline high: 200-239 mg/dL High: >or= 240 mg/dL Literature References: 1. Expert Panel on Integrated Guidelines for Cardiovascular Health and Risk Reduction in Children and Adolescents. Pediatrics 2011;128:S213 2. NCEP Expert Panel. Circulation 2004;110:227 Current Interpretive Data was last revised on 2017. Triglycerides 60 <=149 mg/dL [facility] Comment: Interpretive Data Ages < or = 9 years Acceptable: <75 mg/dL Borderline high: 75-99 mg/dL High: >or= 100 mg/dL Ages 10 to 20 years Acceptable: <90 mg/dL Borderline high: 90-129 mg/dL High: >or= 130 mg/dL Ages > or = 20 years Desirable: <150 mg/dL Borderline high: 150-199 mg/dL High: 200-499 mg/dL Very high: >or= 499 mg/dL Literature References: 1. Expert Panel on Integrated Guidelines for Cardiovascular Health and Risk Reduction in Children and Adolescents. Pediatrics 2011;128:S213 2. NCEP Expert Panel. Circulation 2004;110:227 Current Interpretive Data was last revised on 2017. HDL 75 >=40 mg/dL [facility] Comment: Interpretive Data Ages < or = 19 years Acceptable: >45 mg/dL Borderline low: 40-45 mg/dL Low: <40 mg/dL Ages > or = 20 years Desirable: >or= 60 mg/dL Low: <40 mg/dL Literature References: 1. Expert Panel on Integrated Guidelines for Cardiovascular Health and Risk Reduction in Children and Adolescents. Pediatrics 2011;128:S213 2. NCEP Expert Panel. Circulation 2004;110:227 Current Interpretive Data was last revised on 2017. LDL, calculated 43 <=129 mg/dL [facility] Comment: Interpretive Data Ages < or = 19 years Acceptable: <110 mg/dL Borderline high: 110-129 mg/dL High: >or= 130 mg/dL Ages > or = 20 years Optimal: <100 mg/dL Near optimal: 100-129 mg/dL Borderline high: 130-159 mg/dL High: >160 mg/dL Calculated using the Steve LDL-C estimating equation. This equation was implemented on 2023. Prior to this date LDL-C was estimated using the Friedewald equation. Literature References: 1. Expert Panel on Integrated Guidelines for Cardiovascular Health and Risk Reduction in Children and Adolescents. Pediatrics 2011;128:S213 2. NCEP Expert Panel. Circulation 2004;110:227 3. Steve Koo et al. MERLIN Cardiol. 2020 August 28;5(5):540-548. doi: [email or web address] Current Interpretive Data was last revised on 2023. Non-HDL Cholesterol 56 mg/dL [facility] Comment: Interpretive Data Ages < or = 19 years Acceptable: <120 mg/dL Borderline high: 120-144 mg/dL High: >145 mg/dL Ages > or = 20 years When triglycerides are >200 mg/dL, Non-HDL cholesterol is a secondary target of therapy with treatment goals that are 30 mg/dL greater than the LDL cholesterol target. Literature References: 1. Expert Panel on Integrated Guidelines for Cardiovascular Health and Risk Reduction in Children and Adolescents. Pediatrics 2011;128:S213 2. NCEP Expert Panel. Circulation 2004;110:227 Current Interpretive Data was last revised on 2017. Chol/HDL ratio 2 [facility] Blood 07/25/2024 3:45 AM CDT 07/25/2024 4:15 AM CDT Nick Veliz MD LAB BLOOD ORDERABLES Fin al Result [facility] [place] [address] * (ABNORMAL) Comprehensive metabolic panel (07/25/2024 3:45 AM CDT) Sodium 135 135 - 145 mmol/L Potassium, pl 3.7 3.3 - 4.9 mmol/L [facility] Chloride 94(L) 97 - 110 mmol/L [facility] CO2 26 22 - 32 mmol/L [facility] Anion gap 15 2 - 15 mmol/L [facility] BUN 15 6 - 25 mg/dL [facility] Creatinine 1.08 0.80 - 1.30 mg/dL [facility] Glucose 133 70 - 199 mg/dL [facility] Comment: Interpretive Data Fasting glucose >/= [...] 2022. Calcium 8.9 8.5 - 10.3 mg/dL [facility] Bilirubin, total 0.9 0.1 - 1.2 mg/dL [facility] Protein, pl 7.0 6.5 - 8.5 g/dL [facility] Albumin 3.6 3.5 - 5.0 g/dL [facility] Alk phos 62 40 - 130 Units/L [facility] ALT 13 7 - 55 Units/L [facility] AST 38 10 - 50 Units/L [facility] Blood 07/25/2024 3:45 AM CDT 07/25/2024 4:15 AM CDT Nick Veliz MD LAB BLOOD ORDERABLES Fin al Result Performing Organization Address [facility] Co de Phone Number [facility] [place] [address] * (ABNORMAL) Troponin I high-sensitivity (06/22/2024 5:59 AM NOVELTIES SALES REPRESENTATIVE) Pathologist [facility] Trop I hs 37(H) <=35 ng/L Comment: Interpretive Data For further hscTnI resources including the diagnostic algorithm and an aid in interpretation, copy and paste this link: [email or web address] Current Interpretive Data last revised 2019. Blood 06/22/2024 5:59 AM NOVELTIES SALES REPRESENTATIVE 06/22/2024 6:19 AM NOVELTIES SALES REPRESENTATIVE Aide Duffy NP LAB BLOOD ORDERABLES F inal Result Performing Organization Address [facility] de Phone Number [facility] [place] [address] * eGFR (06/22/2024 5:59 AM NOVELTIES SALES REPRESENTATIVE) eGFR 88 >=60 mL/min/1. 73 m2 Comment: [...] of Race in Diagnosing Kidney Disease, JASN 202). The CKD-EPI equation should not be used for patients with unstable renal function and has not been validated in children and those over 70. Current interpretive data was last reviewed 2021. Blood 06/22/2024 5:59 AM NOVELTIES SALES REPRESENTATIVE 06/22/2024 6:19 AM NOVELTIES SALES REPRESENTATIVE us Jaylin Kamara MD LAB BLOOD ORDERABLES Teetee keith Result [facility] [place] [address] * (ABNORMAL) Differential, auto (06/22/2024 5:59 AM NOVELTIES SALES REPRESENTATIVE) Neutrophil abs 11.4(H) 1.5 - 6.5 K/cumm Imm gran abs 0.1 0.0 - 0.1 K/cumm [facility] Lymphocyte abs 0.8 0.8 - 3.3 K/cumm [facility] Monocyte abs 1.6(H) 0.2 - 0.8 K/cumm [facility] Eosinophil abs 0.0 0.0 - 0.5 K/cumm [facility] Basophil abs 0.0 0.0 - 0.1 K/cumm [facility] Neutrophil pct 82.4 % [facility] Comment: Interpretive Data Percent cell count reference ranges are not reported, since discordance with absolute values may lead to misinterpretation of CBC data. Current Interpretive Data was last revised on 2017. Imm gran pct 0.4 % [facility] Comment: Interpretive Data Percent cell count reference ranges are not reported, since discordance with absolute values may lead to misinterpretation of CBC data. Current Interpretive Data was last revised on 2017. Lymphocyte pct 5.6 % [facility] Comment: Interpretive Data Percent cell count reference ranges are not reported, since discordance with absolute values may lead to misinterpretation of CBC data. Current Interpretive Data was last revised on 2017. Monocyte pct 11.4 % [facility] Comment: Interpretive Data Percent cell count reference ranges are not reported, since discordance with absolute values may lead to misinterpretation of CBC data. Current Interpretive Data was last revised on 2017. Eosinophil pct 0.1 % [facility] Comment: Interpretive Data Percent cell count reference ranges are not reported, since discordance with absolute values may lead to misinterpretation of CBC data. Current Interpretive Data was last revised on 2017. Basophil pct 0.1 % [facility] Comment: Interpretive Data Percent cell count reference ranges are not reported, since discordance with absolute values may lead to misinterpretation of CBC data. Current Interpretive Data was last revised on 2017. Blood 06/22/2024 5:59 AM NOVELTIES SALES REPRESENTATIVE 06/22/2024 6:19 AM NOVELTIES SALES REPRESENTATIVE us Aide Duffy NP LAB BLOOD ORDERABLES F inal Result Performing Organization Address [facility] Co de Phone Number [facility] [place] [address] * HIV 1/2 Antibody plus p24 Antigen Blood (06/22/2024 5:59 AM NOVELTIES SALES REPRESENTATIVE) Pathologist [facility] HIV 1/2 ab + p24 ag Nonreactive Nonreactive Comment:Nonreactive for HIV- 1 antigen and HIV-1/HIV-2 antibodies. No laboratory evidence of HIV infection. If acute HIV infection is suspected, consider testing for HIV-1 RNA. Current interpretive data was last revised on 21. Blood 06/22/2024 5:59 AM NOVELTIES SALES REPRESENTATIVE 06/22/2024 6:19 AM NOVELTIES SALES REPRESENTATIVE us Clovis Villalpando MD LAB MICROBIOLOGY - GENERA L ORDERABLES Final Result Performing Organization Address [facility] Co de Phone Number [facility] [place] [address] * (ABNORMAL) CBC with auto differential (06/22/2024 5:59 AM NOVELTIES SALES REPRESENTATIVE) WBC 13.9(H) 3.8 - 9.9 K/cumm Hgb 12.4(L) 13.0 - 17.5 g/dL [facility] Hct 34.6(L) 38.9 - 50.3 % [facility] Plt 189 150 - 400 K/cumm [facility] MPV 10.7 9.1 - 12.3 fL [facility] RBC 3.46(L) 4.30 - 5.80 M/cumm [facility] MCV 100.0(H) 81.3 - 96.4 fL [facility] MCH 35.8(H) 27.1 - 33.3 pg [facility] MCHC 35.8(H) 32.3 - 35.7 g/dL [facility] RDW CV 11.7 11.1 - 14.9 % [facility] RDW SD 42.6 35.7 - 48.1 fL [facility] NRBC abs 0.00 0.00 - 0.01 K/cumm [facility] Blood 06/22/2024 5:59 AM NOVELTIES SALES REPRESENTATIVE 06/22/2024 6:19 AM NOVELTIES SALES REPRESENTATIVE us Aide Duffy RADIOLOGICAL HEALTH SPECIALIST LAB BLOOD ORDERABLES F inal Result [facility] [place] [address] * Hepatitis C antibody Blood (06/22/2024 5:59 AM NOVELTIES SALES REPRESENTATIVE) Pathologist [facility] Hep C Ab Nonreactive Nonreactive Comment:Antibodies to HCV no t detected. Does NOT exclude the possibility of recent exposure to HCV. Current interpretive data was last revised on 21 Blood 06/22/2024 5:59 AM NOVELTIES SALES REPRESENTATIVE 06/22/2024 6:19 AM NOVELTIES SALES REPRESENTATIVE us Clovis Villalpando MD LAB MICROBIOLOGY - GENERA L ORDERABLES Final Result [facility] [place] [address] * RPR Blood (06/22/2024 5:59 AM NOVELTIES SALES REPRESENTATIVE) Pathologist [facility] RPR Nonreactive Nonreactive Blood 06/22/2024 5:59 AM NOVELTIES SALES REPRESENTATIVE 06/22/2024 6:19 AM NOVELTIES SALES REPRESENTATIVE us Clovis Villalpando MD LAB MICROBIOLOGY - GENERA L ORDERABLES Final Result [facility] [place] [address] * Hepatitis B Surface Antigen Blood (06/22/2024 5:59 AM NOVELTIES SALES REPRESENTATIVE) Pathologist [facility] HepBsAg Nonreactive Nonreactive Blood 06/22/2024 5:59 AM NOVELTIES SALES REPRESENTATIVE 06/22/2024 6:19 AM NOVELTIES SALES REPRESENTATIVE us Clovis Villalpando MD LAB MICROBIOLOGY - GENERA L ORDERABLES Final Result Performing Organization Address City/[facility]/ZIP Co de Phone Number [facility] [place] [address] * Phosphorus (06/22/2024 5:59 AM NOVELTIES SALES REPRESENTATIVE) Pathologist [facility] Phosphorus, pl 4.0 2.3 - 4.5 mg/dL Blood 06/22/2024 5:59 AM NOVELTIES SALES REPRESENTATIVE 06/22/2024 6:19 AM NOVELTIES SALES REPRESENTATIVE Aide Duffy NP LAB BLOOD ORDERABLES F inal Result Performing Organization Address City/[facility]/[place] [address] * Magnesium (06/22/2024 5:59 AM NOVELTIES SALES REPRESENTATIVE) Pathologist [facility] Magnesium 1.9 1.4 - 2.5 mg/dL Blood 06/22/2024 5:59 AM NOVELTIES SALES REPRESENTATIVE 06/22/2024 6:19 AM NOVELTIES SALES REPRESENTATIVE us Aide Duffy NP LAB BLOOD ORDERABLES F inal Result Performing Organization Address [facility]/ZIP Co de Phone Number [facility] Department [place] [address] * (ABNORMAL) Basic metabolic panel (06/22/2024 5:59 AM NOVELTIES SALES REPRESENTATIVE) [facility] Sodium 127(L) 135 - 145 mmol/L Potassium, pl 4.7 3.3 - 4.9 mmol/L [facility] Chloride 89(L) 97 - 110 mmol/L [facility] CO2 27 22 - 32 mmol/L [facility] Anion gap 11 2 - 15 mmol/L [facility] BUN 17 6 - 25 mg/dL [facility] Creatinine 0.92 0.80 - 1.30 mg/dL [facility] Glucose 138 70 - 199 mg/dL [facility] Comment: Interpretive Data Fasting glucose >/= [...] 2022. Calcium 8.8 8.5 - 10.3 mg/dL [facility] Blood 06/22/2024 5:59 AM NOVELTIES SALES REPRESENTATIVE 06/22/2024 6:19 AM NOVELTIES SALES REPRESENTATIVE us Jaylin Kamara MD LAB BLOOD ORDERABLES Teetee l Result Performing Organization Address [facility]/ZIP Co de Phone Number [facility] [place] [address] * (ABNORMAL) Urinalysis reflex to microscopic and culture Urine (06/21/2024 4:33 PM NOVELTIES SALES REPRESENTATIVE) Color, ur Yellow Yellow Clarity, ur Clear Clear [facility] Specific gravity, ur 1.027 1.003 - 1.030 [facility] pH, urine 6.0 [facility] Comment: Interpretive Data U rine pH is affected by diet, medications, systemic acid-base disturbances, and renal tubular function. pH may affect urinary stone formation. For example, urine pH below 6.0 may help reduce the tendency for calcium phosphate stones and pH greater than 6.0 may reduce the tendency for uric acid stone formation. Source: [facility] [employer] [facility] [employer] Current Interpretive Data was last revised on 2017 Protein, ur ql 1+(A) Negative [facility] Glucose, ur ql Negative Negative [facility] Ketones, ur 1+(A) Negative [facility] Bilirubin, ur Negative Negative [facility] Blood, ur 1+(A) Negative [facility] Urobilinogen, ur <2.0 <2.0 mg/dL [facility] Nitrite, ur Negative Negative [facility] Leukocyte esterase, ur Trace(A) Negative [facility] UA reflex comment Reflex to microscopic UA will be performed. [facility] Urine 06/21/2024 4:33 PM NOVELTIES SALES REPRESENTATIVE 06/21/2024 4:43 PM NOVELTIES SALES REPRESENTATIVE Aide Duffy NP LAB MICROBIOLOGY - GEN ERAL ORDERABLES Final Result [facility] [place] [address] * (ABNORMAL) Urinalysis, microscopic only (06/21/2024 4:33 PM NOVELTIES SALES REPRESENTATIVE) WBC, ur 0-5 0 - 5 /HPF RBC, ur 3-5(A) 0 - 2 /HPF [facility] Epithelial cells, squamous, ur 1-5 0 - 5 /HPF [facility] Mucous, ur Present(A) [facility] Amorphous crystals, ur 2+(A) [facility] Hyaline casts, ur 21-50(A) 0 - 10 /LPF [facility] Culture Reflex Comment Reflex conditions for urine culture (WBC >10) not met. [facility] Urine 06/21/2024 4:33 PM NOVELTIES SALES REPRESENTATIVE 06/21/2024 4:43 PM NOVELTIES SALES REPRESENTATIVE Aide Duffy RADIOLOGICAL HEALTH SPECIALIST LAB URINE ORDERABLES F inal Result Performing Organization Address [facility] de Phone Number [facility] [place] [address] * (ABNORMAL) Troponin I high-sensitivity (06/21/2024 3:57 PM NOVELTIES SALES REPRESENTATIVE) Trop I hs 64(H) <=35 ng/L Comment: Interpretive Data For further hscTnI resources including the diagnostic algorithm and an aid in interpretation, copy and paste this link: [email or web address] Current Interpretive Data last revised 2019. Blood 06/21/2024 3:57 PM NOVELTIES SALES REPRESENTATIVE 06/21/2024 4:22 PM NOVELTIES SALES REPRESENTATIVE Aide Duffy RADIOLOGICAL HEALTH SPECIALIST LAB BLOOD ORDERABLES F inal Result Performing Organization Address [facility] de Phone Number [facility] [place] [address] * Blood culture Blood (06/21/2024 3:57 PM NOVELTIES SALES REPRESENTATIVE) Report Final Report: No growth Blood 06/21/2024 3:57 PM NOVELTIES SALES REPRESENTATIVE 06/21/2024 4:18 PM NOVELTIES SALES REPRESENTATIVE Narrative [facility] - 06/26/2024 7:01 AM NOVELTIES SALES REPRESENTATIVE From a different site than #1. Collection->Peripheral [...] performance characteristics have been verified by the [facility]. For questions about this culture, contact the Microbiology Laboratory at [phone]. Interpretive data was last revised on 24. Aide Duffy NP LAB MICROBIOLOGY - GEN ERAL ORDERABLES Final Result [facility] [place] [address] * Blood culture Blood (06/21/2024 3:57 PM NOVELTIES SALES REPRESENTATIVE) Report Final Report: No growth Blood 06/21/2024 3:57 PM NOVELTIES SALES REPRESENTATIVE 06/21/2024 4:18 PM NOVELTIES SALES REPRESENTATIVE Narrative [facility] - 06/26/2024 7:01 AM NOVELTIES SALES REPRESENTATIVE Collection->Peripheral 1. Blood cultures are incubated for [...] performance characteristics have been verified by the [facility]. For questions about this culture, contact the Microbiology Laboratory at [phone]. Interpretive data was last revised on 24. Aide Duffy NP LAB MICROBIOLOGY - GEN ERAL ORDERABLES Final Result Performing Organization Address [facility] Co de Phone Number [facility] [place] [address] * (ABNORMAL) Blood gas, arterial (06/21/2024 3:57 PM NOVELTIES SALES REPRESENTATIVE) pH, Art 7.43 7.35 - 7.45 PCO2, Arterial 34(L) 35 - 45 mmHg [facility] PO2, Arterial 132(H) 83 - 108 mmHg [facility] HCO3 Art (Calculated) 23 20 - 30 mmol/L [facility] BE, art -1 mmol/L [facility] Comment: Interpretive Data No Reference Range Established Current Interpretive Data was last revised on 2017 O2 Sat Art (Measured) 99(H) 90 - 95 % [facility] Blood 06/21/2024 3:57 PM NOVELTIES SALES REPRESENTATIVE 06/21/2024 4:14 PM NOVELTIES SALES REPRESENTATIVE Aide Duffy NP LAB BLOOD ORDERABLES F inal Result Performing Organization Address [facility] Co de Phone Number [facility] [place] [address] * Sodium, urine, random (06/21/2024 1:19 PM NOVELTIES SALES REPRESENTATIVE) Sodium, ur 45 mmol/L Comment: Interpretive Data No reference range established. Current interpretive data was last revised 2018. Urine 06/21/2024 1:19 PM NOVELTIES SALES REPRESENTATIVE 06/21/2024 3:21 PM NOVELTIES SALES REPRESENTATIVE Jaylin Kamara MD LAB URINE ORDERABLES Teetee l Result [facility] [place] [address] * Osmolality, urine (06/21/2024 1:19 PM NOVELTIES SALES REPRESENTATIVE) [facility] Osmo, ur 420 mOsm/kg Urine 06/21/2024 1:19 PM NOVELTIES SALES REPRESENTATIVE 06/21/2024 3:21 PM NOVELTIES SALES REPRESENTATIVE Jaylin Kamara MD LAB URINE ORDERABLES Teetee l Result Performing Organization Address [facility] de Phone Number [facility] [place] [address] * Respiratory pathogen panel Nasopharyngeal (06/21/2024 1:03 PM NOVELTIES SALES REPRESENTATIVE) [facility] Influenza A RNA Not Detected Not Detected Influenza B RNA Not Detected Not Detected [facility] RSV RNA Not Detected Not Detected [facility] COVID-19 RNA Not Detected Not Detected [facility] Coronavirus 229E RNA Not Detected Not Detected [facility] Coronavirus HKU1 RNA Not Detected Not Detected [facility] Coronavirus NL63 RNA Not Detected Not Detected [facility] Coronavirus OC43 RNA Not Detected Not Detected [facility] Adenovirus DNA Not Detected Not Detected [facility] Metapneumovirus RNA Not Detected Not Detected [facility] Rhinovirus/Enterov irus RNA Not Detected Not Detected [facility] Parainfluenza 1 RNA Not Detected Not Detected [facility] Parainfluenza 2 RNA Not Detected Not Detected [facility] Parainfluenza 3 RNA Not Detected Not Detected [facility] Parainfluenza 4 RNA Not Detected Not Detected [facility] B. pertussis DNA Not Detected Not Detected [facility] B. parapertussis DNA Not Detected Not Detected [facility] C. pneumoniae DNA Not Detected Not Detected [facility] M. pneumoniae DNA Not Detected Not Detected [facility] Nasopharyngeal 06/21/2024 1: 03 PM NOVELTIES SALES REPRESENTATIVE 06/21/2024 1:13 PM NOVELTIES SALES REPRESENTATIVE [facility] - 06/21/2024 2:10 PM NOVELTIES SALES REPRESENTATIVE Is the Patient experiencing symptoms consistent with COVID?->Unknown Surveillance testing for transplant patient?->No Interpretive Data The [employer] FilmArray Respiratory Panel (RP2.1) assay is a [...] assay has FDA clearance for testing of RADIOLOGICAL HEALTH SPECIALIST swabs. The performance of additional specimen types has been assessed by the performing laboratory. The performance characteristics of this assay have been determined by [facility] Molecular Infectious Disease Laboratory. Current interpretive data was last revised on 22. Jaylin Kamara MD LAB MICROBIOLOGY - GENERA L ORDERABLES Final Result Performing Organization Address [facility]/ZIP Co de Phone Number [facility] Department [place] [address] * (ABNORMAL) Osmolality, blood (06/21/2024 1:03 PM NOVELTIES SALES REPRESENTATIVE) Osmo 270(L) 275 - 300 mOsm/kg Blood 06/21/2024 1:03 PM NOVELTIES SALES REPRESENTATIVE 06/21/2024 1:19 PM NOVELTIES SALES REPRESENTATIVE Jaylin Kamara MD LAB BLOOD ORDERABLES Teetee l Result Performing Organization Address [facility] Co il Phone Number [facility] [place] [address] * CT Recon Thoracic and Lumbar Spine W Contrast (C) (06/21/2024 12:38 PM NOVELTIES SALES REPRESENTATIVE) Anatomical Region Laterality Modality Spine N/A Computed Tomogra phy 06/21/2024 1:25 PM NOVELTIES SALES REPRESENTATIVE Impressions 06/21/2024 1:40 PM NOVELTIES SALES REPRESENTATIVE No evidence of acute fracture in the thoracic or lumbar spine. Dictated by: Cory Fregoso MD The radiology attending physician has personally reviewed this study, and had reviewed and/or edited this written report and agrees with it. Electronically signed by: Jose Carver M.D, PHD Narrative 06/21/2024 1:40 PM NOVELTIES SALES REPRESENTATIVE EXAMINATION: 1. CT of the thoracic spine [...] Electronically signed by: Jose Carver M.D, PHD us Tete Clark MD IMG CT PROCEDURES Final Result * CT Chest Abdomen Pelvis W Contrast (06/21/2024 12:38 PM NOVELTIES SALES REPRESENTATIVE) Anatomical Region Laterality Modality Body N/A Computed Tomogra phy 06/21/2024 1:30 PM NOVELTIES SALES REPRESENTATIVE Impressions 06/21/2024 2:02 PM NOVELTIES SALES REPRESENTATIVE 1. No findings of acute trauma in [...] Pillai MD, PHD Narrative 06/21/2024 2:02 PM NOVELTIES SALES REPRESENTATIVE EXAMINATION: Computed tomography of the chest, abdomen [...] Shoulder Right WO Contrast (06/21/2024 12:38 PM NOVELTIES SALES REPRESENTATIVE) Anatomical Region Laterality Modality Upper Extremities Right Computed Tomog tammy 06/21/2024 1:31 PM NOVELTIES SALES REPRESENTATIVE Impressions 06/21/2024 1:48 PM NOVELTIES SALES REPRESENTATIVE 1. Acute, comminuted Hill-Sachs fracture of the [...] Pillai MD, PHD Narrative 06/21/2024 1:48 PM NOVELTIES SALES REPRESENTATIVE EXAMINATION: CT SHOULDER RIGHT WO CONTRAST HISTORY: [...] Juan Pillai MD, PHD Tete Clark MD IM CT PROCEDURES Final Result * HI CRITICAL CARE ILL/INJURED PATIENT INIT 30-74 MIN (06/21/2024 12:19 PM NOVELTIES SALES REPRESENTATIVE) Narrative Nelson Yeager MD PhD - 06/21/2024 12:19 PM NOVELTIES SALES REPRESENTATIVE Nelson Yeager MD PhD 06/21/2024 3:18 PM [...] 2 or More Views (06/21/2024 10:21 AM NOVELTIES SALES REPRESENTATIVE) Anatomical Region Laterality Modality Upper Extremities, Shoulder Right Comp uted Radiography 06/21/2024 10:3 2 AM NOVELTIES SALES REPRESENTATIVE Impressions 06/21/2024 10:32 AM NOVELTIES SALES REPRESENTATIVE Reduced right shoulder, with mildly displaced comminuted Hill-Sachs fracture Electronically signed by: Juanito Merritt M.D. Narrative 06/21/2024 10:32 AM NOVELTIES SALES REPRESENTATIVE EXAMINATION: XR SHOULDER RIGHT 2 OR MORE [...] Final Result * eGFR (06/21/2024 8:55 AM NOVELTIES SALES REPRESENTATIVE) eGFR >90 >=60 mL/min/1. 73 m2 Comment: [...] last reviewed 2021. Blood 06/21/2024 8:55 AM NOVELTIES SALES REPRESENTATIVE 06/21/2024 9:09 AM NOVELTIES SALES REPRESENTATIVE us Tete Clark MD LAB BLOOD ORDERABLES Final Res ult [facility] [place] [address] * (ABNORMAL) Pro B-type natriuretic peptide (06/21/2024 8:55 AM NOVELTIES SALES REPRESENTATIVE) NT-proBNP 1,234(H) <=300 pg/mL Comment: Interpretive Comments: [...] Revised Date: 2017. Blood 06/21/2024 8:55 AM NOVELTIES SALES REPRESENTATIVE 06/21/2024 9:09 AM NOVELTIES SALES REPRESENTATIVE us Jaylin Kamara MD LAB BLOOD ORDERABLES Teetee keith Result [facility] Department [place] [address] * (ABNORMAL) Comprehensive metabolic panel (06/21/2024 8:55 AM NOVELTIES SALES REPRESENTATIVE) Sodium 124(L) 135 - 145 mmol/L Potassium, pl 4.8 3.3 - 4.9 mmol/L [facility] Comment:Repeated and Verifie d Chloride 88(L) 97 - 110 mmol/L [facility] CO2 21(L) 22 - 32 mmol/L [facility] Anion gap 15 2 - 15 mmol/L [facility] BUN 8 6 - 25 mg/dL [facility] Creatinine 0.82 0.80 - 1.30 mg/dL [facility] Glucose 114 70 - 199 mg/dL [facility] Comment: Interpretive Data Fasting glucose >/= [...] 2022. Calcium 8.9 8.5 - 10.3 mg/dL [facility] Bilirubin, total 0.7 0.1 - 1.2 mg/dL [facility] Protein, pl 7.1 6.5 - 8.5 g/dL [facility] Albumin 3.9 3.5 - 5.0 g/dL [facility] Alk phos 42 40 - 130 Units/L [facility] ALT 17 7 - 55 Units/L [facility] Comment:Reviewed AST 38 10 - 50 Units/L [facility] Comment:Reviewed Blood 06/21/2024 8:55 AM NOVELTIES SALES REPRESENTATIVE 06/21/2024 9:09 AM NOVELTIES SALES REPRESENTATIVE us Tete Clark MD LAB BLOOD ORDERABLES Final Res ult [facility] Department [place] [address] * XR Pelvis 1 or 2 Views (06/21/2024 8:51 AM NOVELTIES SALES REPRESENTATIVE) Anatomical Region Laterality Modality Body, Pelvis N/A Computed Radiogr aphy 06/21/2024 10:2 7 AM NOVELTIES SALES REPRESENTATIVE Narrative 06/21/2024 10:33 AM NOVELTIES SALES REPRESENTATIVE EXAMINATION: XR CHEST 1 VIEW, XR PELVIS [...] Chest 1 Vw Portable (06/21/2024 8:51 AM NOVELTIES SALES REPRESENTATIVE) Anatomical Region Laterality Modality Body, Chest N/A Computed Radiogr aphy 06/21/2024 10:2 7 AM NOVELTIES SALES REPRESENTATIVE Narrative 06/21/2024 10:33 AM NOVELTIES SALES REPRESENTATIVE EXAMINATION: XR CHEST 1 VIEW, XR PELVIS [...] Result * Check Sample (06/21/2024 8:28 AM NOVELTIES SALES REPRESENTATIVE) ABO Rh A Positive [facility] OTHER 06/21/2024 8:28 AM NOVELTIES SALES REPRESENTATIVE 06/21/2024 8:35 AM NOVELTIES SALES REPRESENTATIVE us Nelson Yeager MD PhD LAB BLOOD ORDERABL ES Final Result [facility] [place] [address] [facility] * ECG 12-LEAD (06/21/2024 7:42 AM NOVELTIES SALES REPRESENTATIVE) Narrative [facility] - 06/21/2024 7:42 AM NOVELTIES SALES REPRESENTATIVE Nelson Yeager MD PhD 06/21/2024 7:43 AM [...] Kelley MD ECG ORDERABLES Final Result [facility] * eGFR (06/21/2024 7:42 AM NOVELTIES SALES REPRESENTATIVE) eGFR >90 >=60 mL/min/1. 73 m2 Comment: [...] last reviewed 2021. Blood 06/21/2024 7:42 AM NOVELTIES SALES REPRESENTATIVE 06/21/2024 8:00 AM NOVELTIES SALES REPRESENTATIVE us Zana Kelley MD LAB BLOOD ORDERABLES Final Re sult [facility] [place] [address] * (ABNORMAL) Differential, auto (06/21/2024 7:42 AM NOVELTIES SALES REPRESENTATIVE) Neutrophil abs 11.3(H) 1.5 - 6.5 K/cumm Imm gran abs 0.1 0.0 - 0.1 K/cumm [facility] Lymphocyte abs 0.5(L) 0.8 - 3.3 K/cumm [facility] Monocyte abs 1.0(H) 0.2 - 0.8 K/cumm [facility] Eosinophil abs 0.6(H) 0.0 - 0.5 K/cumm [facility] Basophil abs 0.0 0.0 - 0.1 K/cumm [facility] Neutrophil pct 83.5 % [facility] Comment: Confirmed by smear review Interpretive Data Percent cell count reference ranges are not reported, since discordance with absolute values may lead to misinterpretation of CBC data. Current Interpretive Data was last revised on 2017. Imm gran pct 0.4 % [facility] Comment: Interpretive Data Percent cell count reference ranges are not reported, since discordance with absolute values may lead to misinterpretation of CBC data. Current Interpretive Data was last revised on 2017. Lymphocyte pct 3.9 % [facility] Comment: Interpretive Data Percent cell count reference ranges are not reported, since discordance with absolute values may lead to misinterpretation of CBC data. Current Interpretive Data was last revised on 2017. Monocyte pct 7.7 % [facility] Comment: Interpretive Data Percent cell count reference ranges are not reported, since discordance with absolute values may lead to misinterpretation of CBC data. Current Interpretive Data was last revised on 2017. Eosinophil pct 4.4 % [facility] Comment: Interpretive Data Percent cell count reference ranges are not reported, since discordance with absolute values may lead to misinterpretation of CBC data. Current Interpretive Data was last revised on 2017. Basophil pct 0.1 % [facility] Comment: Interpretive Data Percent cell count reference ranges are not reported, since discordance with absolute values may lead to misinterpretation of CBC data. Current Interpretive Data was last revised on 2017. Blood 06/21/2024 7:42 AM NOVELTIES SALES REPRESENTATIVE 06/21/2024 8:00 AM NOVELTIES SALES REPRESENTATIVE us Zana Kelley MD LAB BLOOD ORDERABLES Final Re sult [facility] [place] [address] * (ABNORMAL) CBC with auto differential (06/21/2024 7:42 AM NOVELTIES SALES REPRESENTATIVE) WBC 13.5(H) 3.8 - 9.9 K/cumm Hgb 11.7(L) 13.0 - 17.5 g/dL [facility] Hct 32.8(L) 38.9 - 50.3 % [facility] Plt 201 150 - 400 K/cumm [facility] MPV 10.2 9.1 - 12.3 fL [facility] RBC 3.27(L) 4.30 - 5.80 M/cumm [facility] MCV 100.3(H) 81.3 - 96.4 fL [facility] MCH 35.8(H) 27.1 - 33.3 pg [facility] MCHC 35.7 32.3 - 35.7 g/dL [facility] RDW CV 11.5 11.1 - 14.9 % [facility] RDW SD 41.9 35.7 - 48.1 fL [facility] NRBC abs 0.00 0.00 - 0.01 K/cumm [facility] Blood 06/21/2024 7:42 AM NOVELTIES SALES REPRESENTATIVE 06/21/2024 8:00 AM NOVELTIES SALES REPRESENTATIVE Zana Kelley MD LAB BLOOD ORDERABLES Final Re sult Performing Organization Address [facility] Co de Phone Number [facility] [place] [place] [address] * aPTT (06/21/2024 7:42 AM NOVELTIES SALES REPRESENTATIVE) aPTT 28 28 - 38 sec Comment: Interpretive Data Heparin therapeutic range: 66.0 - 100.0 seconds. Range based on correlation with therapeutic heparin activity range of 0.3 - 0.7 Units/mL. Current interpretive data was last revised on 2023. Blood 06/21/2024 7:42 AM NOVELTIES SALES REPRESENTATIVE 06/21/2024 8:04 AM NOVELTIES SALES REPRESENTATIVE Tete Clark MD LAB BLOOD ORDERABLES Final Res ult Performing Organization Address [facility] [place] [address] * Protime-INR (06/21/2024 7:42 AM NOVELTIES SALES REPRESENTATIVE) PT 10.9 9.7 - 13.0 sec INR 1.01 0.90 - 1.20 [facility] Comment: Interpretive data Oral anticoagulant therapeutic ranges: Venous thromboembolism prophylaxis or treatment: 2.0-3.0 CARDIOLOGY Standard range: 2.0-3.0 High-intensity range: 2.5-3.5 Refer to indication-specific guidelines for appropriate target ranges for prosthetic heart valve replacement. Current interpretive data was last revised on 2019. Blood 06/21/2024 7:42 AM NOVELTIES SALES REPRESENTATIVE 06/21/2024 8:04 AM NOVELTIES SALES REPRESENTATIVE Tete Clark MD LAB BLOOD ORDERABLES Final Res ult Performing Organization Address [facility] Co de Phone Number [facility] [place] [address] * Type and screen (06/21/2024 7:42 AM NOVELTIES SALES REPRESENTATIVE) ABO Rh A Positive Kumar, indirect Negative [facility] Blood 06/21/2024 7:42 AM NOVELTIES SALES REPRESENTATIVE 06/21/2024 8:02 AM NOVELTIES SALES REPRESENTATIVE Narrative [facility] - 06/21/2024 8:47 AM NOVELTIES SALES REPRESENTATIVE Has the patient had Daratumumab or Isatuximab in the past 6 months?->Unknown us Zana Kelley MD LAB BLOOD BANK TEST ORDERABLE S Final Result Performing Organization Address [facility] [place] [address] * (ABNORMAL) Ethanol (06/21/2024 7:42 AM NOVELTIES SALES REPRESENTATIVE) Pathologist [facility] Ethanol 31(H) <=10 mg/dL Comment: Hemolyzed; result may be falsely decreased Interpretive Data Legal limit of intoxication > or = 80 mg/dL Levels > or = 400 mg/dL are potentially TOXIC. Current interpretive data was last revised on 2018. Blood 06/21/2024 7:42 AM NOVELTIES SALES REPRESENTATIVE 06/21/2024 8:00 AM NOVELTIES SALES REPRESENTATIVE us Tete Clark MD LAB BLOOD ORDERABLES Final Res ult Performing Organization Address [facility]/[place]IP [place] [address] * (ABNORMAL) Comprehensive metabolic panel (06/21/2024 7:42 AM NOVELTIES SALES REPRESENTATIVE) Pathologist [facility] Sodium 125(L) 135 - 145 mmol/L Potassium, pl See Comment 3.3 - 4.9 mmol/L [facility] Comment:Credited; Hemolyzed Specimen Chloride 88(L) 97 - 110 mmol/L [facility] CO2 19(L) 22 - 32 mmol/L [facility] Anion gap 18(H) 2 - 15 mmol/L [facility] BUN 9 6 - 25 mg/dL [facility] Creatinine 0.78(L) 0.80 - 1.30 mg/dL [facility] Glucose 114 70 - 199 mg/dL [facility] Comment: Interpretive Data Fasting glucose >/= [...] 2022. Calcium 8.7 8.5 - 10.3 mg/dL [facility] Bilirubin, total 0.7 0.1 - 1.2 mg/dL [facility] Protein, pl 7.5 6.5 - 8.5 g/dL [facility] Albumin 3.9 3.5 - 5.0 g/dL [facility] Alk phos 34(L) 40 - 130 Units/L [facility] Comment:Hemolyzed; result ma y be falsely decreased ALT See Comment 7 - 55 Units/L [facility] Comment:Credited; Hemolyzed Specimen AST See Comment 10 - 50 Units/L [facility] Comment:Credited; Hemolyzed Specimen Blood 06/21/2024 7:42 AM NOVELTIES SALES REPRESENTATIVE 06/21/2024 8:00 AM NOVELTIES SALES REPRESENTATIVE us Zana Kelley MD LAB BLOOD ORDERABLES Final Re sult [facility] [place] [address] * XR Humerus Right 2 or More Views (06/21/2024 7:23 AM NOVELTIES SALES REPRESENTATIVE) Anatomical Region Laterality Modality Upper Extremities, Upper Arm Right Com puted Radiography 06/21/2024 8:30 AM NOVELTIES SALES REPRESENTATIVE Impressions 06/21/2024 9:25 AM NOVELTIES SALES REPRESENTATIVE 1. Comminuted Hill-Sachs fracture of the right humerus with anterior and inferior displacement of the right humerus. Dictated by: Colby Wyman M.D. The radiology attending physician has personally reviewed this study, and had reviewed and/or edited this written report and agrees with it. Electronically signed by: Juanito Merritt M.D. Narrative 06/21/2024 9:25 AM NOVELTIES SALES REPRESENTATIVE EXAMINATION: XR SHOULDER RIGHT 2 OR MORE [...] 2 or More Views (06/21/2024 7:23 AM NOVELTIES SALES REPRESENTATIVE) Anatomical Region Laterality Modality Upper Extremities, Shoulder Right Comp uted Radiography 06/21/2024 8:30 AM NOVELTIES SALES REPRESENTATIVE Impressions 06/21/2024 9:25 AM NOVELTIES SALES REPRESENTATIVE 1. Comminuted Hill-Sachs fracture of the right humerus with anterior and inferior displacement of the right humerus. Dictated by: Colby Wyman M.D. The radiology attending physician has personally reviewed this study, and had reviewed and/or edited this written report and agrees with it. Electronically signed by: Juanito Merritt M.D. Narrative 06/21/2024 9:25 AM NOVELTIES SALES REPRESENTATIVE EXAMINATION: XR SHOULDER RIGHT 2 OR MORE [...] * XR Outside Reference (06/21/2024 7:22 AM NOVELTIES SALES REPRESENTATIVE) Impressions [facility] - 06/21/2024 7:22 AM NOVELTIES SALES REPRESENTATIVE These images are for Reference purposes only and have not been reviewed by [facility] Radiology. There will be no report generated by a [facility] Radiologist. 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 Intra-procedure events: hypoxia Intra-procedure management: Airway repositioning Sedation end time (end of provider face to face time): 06/21/2024 10:10 AM Total sedation time (minutes): 14 Maximal depth of sedation: Moderate Post-procedure details: Patient tolerance: Tolerated well, no immediate complications Nelson Yeager MD PhD IN CLINIC/BEDSIDE ORDERABLES Final Result from Last 3 Months Insurance [employer] MEDICARE [employer] MEDICARE Advance Directives For more information, please contact: [phone] * Full Code (Latest Code Status on File) Date Activated Date Inactivated Comments 07/30/2024 5:08 PM 08/13/2024 12:58 AM * Full Code Date Activated Date Inactivated Comments 07/25/2024 3:21 AM 07/30/2024 5:08 PM * Full Code Date Activated Date Inactivated Comments 06/21/2024 3:36 PM 06/22/2024 5:14 PM Care Teams Puppet Maker Relationship Specialty Start Date End Date Juanito Woodward MD [address] [place] [address] PCP - General 08/10/16 Juanito Woodward MD [address] [place] [address] 08/10/16 Nick Veliz MD [address] [facility] [id number] [place] [address] Consulting Physician Cardiothoracic Surgery 08/12/24 Miscellaneous, Not In File 08/12/24
--- OUTSIDE RECORDS SUMMARY | 2024-08-30 13:44 | XMS_ITS | Encounter Summary ---
Author Organization [facility] Address [address] [place] [address] Phone Care Team Providers Care Control Clerk Subassembly Name Role Phone Juanito Woodward MD Primary Care Provide r Juanito Woodward MD Unavailable Nick Veliz MD Unavailable Miscellaneous, Not In File Unavailable Unava ilable Reason for Visit * Reason Onset Date Comments Cardiac Rehab 08/28/2024 Encounter Details Date Type Department Care Team (Late st Contact Info) Description 08/28/2024 Telephone [facility] [address] [facility] [address] [place] [address] Gabriela Brand RN Cardiac Rehab Social History Tobacco Use Types Packs/Day Years Used Date Smoking Tobacco: Former Cigarettes Q uit: 06/21/1989 AUDIT-C Answer Date Recorded Q1: How often [...] on file Legal Sex Male 1:55 AM [employer] Gender Identity Not on file Sexual Orientation Not on file documented as of this encounter Miscellaneous Notes * Telephone Encounter - Gabriela Brand RN - 08/28/2024 2:14 PM CDT LM to inform him of cardiac rehab. Advised him to discuss with his MD. documented in this encounter Plan of Treatment Not on file documented as of this encounter Visit Diagnoses Not on filedocumented in this encounter Care Teams Control Clerk Subassembly Relationship Specialty Start Date End Date Juanito Woodward MD [address] [place] [address] PCP - General 08/10/16 Juanito Woodward MD [address] [place] [address] 08/10/16 Nick Veliz MD [id number] [place] [address] Consulting Physician Cardiothoracic Surgery 08/12/24 Miscellaneous, Not In File 08/12/24 documented as of this encounter
--- OUTSIDE RECORDS SUMMARY | 2024-08-30 13:44 | XMS_ITS | Clinical Summary ---
Author Organization [facility] Address [address] [place] [address] Care Team Providers Care Cash Specialist Name Role Phone Juanito Woodward MD Primary Care Provide r Juanito Woodward MD Unavailable [phone] Nick Veliz MD Unavailable [phone] Miscellaneous, Not In File Unavailable Unava ilable Allergies No known active allergies Medications acetaminophen [...] 2 (two) times a day 5 08/13/19 Active multivit waxbcace-tars-WD -calcium (THERA-M) 9 mg iron-400 mcg tablet Take 1 tablet by mouth daily 5 Active polyvinyl alcohol-povidone (REFRESH CLASSIC) 1.4-0.6 % dropperette Administer 1 drop into both eyes 3 (three) times a day 5 Active potassium chloride ER (KLOR-CON) 20 mEq CR tabletIndication s:With Lasix Take 2 tablets (40 mEq total) by mouth 2 (two) times a day 5 08/13/19 Active ramelteon (ROZEREM) 8 mg tabletIndication s:Sleep-Onset Insomnia Take 1 tablet (8 mg total) by mouth nightly as needed for sleep 5 08/13/19 Active senna (SENOKOT) 8.6 mg tabletIndication s:constipation Take 1 tablet by mouth 2 (two) times a day 5 08/13/19 26 Active tamsulosin (FLOMAX) 0.4 mg extended release capsule Take 1 capsule (0.4 mg total) by mouth daily with dinner 5 Active thiamine (VITAMIN B1) 100 mg tablet Take 1 tablet (100 mg total) by mouth daily 5 08/14/19 Active white petrolatum-final cigar and box examiner al oil (REFRESH PM) ointment Apply [...] & Plan (08/11/2024 10:36 AM CDT): CXR 48 Bibasilar atelectasis, pleural effusion R>L Remains on RA - Lasix 80 mg IV TID (Milrinone was stopped on 08/08) transition to lasix 80mg po BID today - Pulmonary hygiene with IS, acapella, and C&DB Assessment & Plan (2024 1:25 PM CDT): CXR 48 Bibasilar atelectasis, pleural effusion R>L Remains on [...] atrial MAZE, JORGE, and Impella 5.5 insertion. 46: Impella removed GDMT when able Daily weights, strict I/Os Exam and symptoms improving - transition lasix to 80mg po BID Lymph edema wraps ordered-tubigrips applied Milrinone weaned off Repeat TTE 1-2 days before he is discharged to facility - pt looking at [facility] for rehab, check with CM about timing [...] drink 07/21. No prior withdrawal, DTs, etc. CIKS protocol with PRN ativan -Continue Folate -Continue [...] 3.8 m/s. 07/25 he was transferred to [facility] for surgical evaluation. 07/30: MVr (32mm ben [...] 3.8 m/s. 07/25 he was transferred to [facility] for surgical evaluation. 07/30: MVr (32mm ben [...] 06/21/2024 Assessment & Plan (06/22/2024 7:30 AM MAGAZINE REPAIRER): -right shoulder dislocation and humeral head fracture s/p reduction by ortho in the ED -continue sling, RUE NWB -pain control with tylenol, ketorolac, and PRN oxycodone -ortho to set up outpatient follow up Acute respiratory failure 06/21/2024 Assessment & Plan (06/22/2024 7:30 AM MAGAZINE REPAIRER): -unclear etiology, suspect community acquired pneumonia, atelectasis, [...] 06/21/2024 Assessment & Plan (06/22/2024 7:30 AM MAGAZINE REPAIRER): -reportedly drinks 4-5 beers/day. Denies history of [...] TID Assessment & Plan (06/21/2024 4:02 PM MAGAZINE REPAIRER): -continue amlodipine and losartan Resolved Problems Problem Noted Date Diagnosed Date Resolved Date Hyponatremia 06/21/2024 07/27/2024 Assessment & Plan (06/21/2024 4:05 PM MAGAZINE REPAIRER): -chronic per patient, unclear etiology -sodium tabs prescribed as outpatient, continue for now. Encounters Date Type Department Care Team Description 08/28/2024 Telephone Heart Care [facility] [address] [place] [address] Gabriela Brand RN Cardiac Rehab 07/30/2024 8:00 AM CDT Ancillary Procedure [facility] Operating Room [address] [place] [address] 07/30/2024 8:00 AM CDT - 07/30/2024 4:50 PM CDT Surgery [facility] Operating Room [address] [place] [address] Nick Veliz MD REPLACEMENT AORTIC VALVE - MAGNA BIOPROSTHESIS 25 MM 07/30/2024 7:57 AM CDT Anesthesia Event [facility] Operating Room [address] [place] [address] Abhi Martinez MD Fischer, Elissa U., NP 07/29/2024 11:00 AM CDT - 07/29/2024 11:59 PM CDT Hospital Encounter [facility] Pulmonary [address] [place] [phone] Discharge Disposition: Discharge to home or self care 07/29/2024 9:05 AM CDT Ancillary Procedure [facility] Vascular Lab IP [address] [facility] [address] [place] [address] 07/28/2024 1:42 PM CDT - 07/28/2024 3:32 PM CDT Surgery [facility] Heart and Vascular Center [address] [place] [phone] Peter Kulkarni MD PhD RIGHT HEART CATHETERIZATION [id number] 07/25/2024 3:08 AM CDT - 08/12/2024 7:20 PM CDT Hospital Encounter [address] [address] Nick Veliz MD Giacomino, Bria Dugolenski, Aortic stenosis, severe (Primary Dx); Aortic valve stenosis, etiology of cardiac valve disease unspecified; Atrial fibrillation with rapid ventricular response (HCC) Discharge Disposition: Discharge to an IP Rehab facility 06/23/2024 Telephone [facility] Orthopaedic Surgery [address] [facility] 6th [place] [address] [place] [address] Sushant Andrew MD 06/21/2024 6:27 AM MAGAZINE REPAIRER - 06/22/2024 1:09 PM MAGAZINE REPAIRER Hospital Encounter [facility] [address] [facility] [place] [address] Zana Kelley MD Watson, Nelson Eason MD PhD Juan Naranjo MD Kapoor, MD Ngoc Wilkerson Marin H., MD Mok, Huram, MD Chenna, Clovis Moctezuma MD Humeral head fracture, right, closed, initial encounter (Primary Dx); CAP (community acquired pneumonia); Hyponatremia; Hypoxia; Acute respiratory failure with hypoxia (HCC) Discharge Disposition: Discharge to home or self care from Last 3 Months Surgical History Surgery Date Site/Laterality Comments CARDIAC CATHETERIZATION 07/28/2024 N/A Procedure: RIGHT HEART CATHETERIZATION [id number]; Surgeon: Peter Kulkarni MD PhD; Location: [facility] CARDIAC DIRECTOR TALENT MANAGEMENT; Service: Cardiovascular; Laterality: N/A; CARDIAC CATHETERIZATION 07/28/2024 N/A Procedure: LEFT HEART CATHETERIZATION WITH CORONARY ANGIOGRAPHY AND WITH OR WITHOUT LEFT VENTRICULOGRAM [id number]; Surgeon: Peter Kulkarni MD PhD; Location: [facility] CARDIAC DIRECTOR TALENT MANAGEMENT; Service: Cardiovascular; Laterality: N/A; CARDIAC ELECTROPHYSIOLOGY PROCEDURE 07/30/2024 Chest/N/A Procedure: ATRIAL FIBRILLATION ABLATION, ASCENDING AORTIC GRAFT; Surgeon: Nick Veliz MD; Location: [facility] OR POD 3; Service: Cardiothoracic; Laterality: N/A; Medical devices from this surgery are in the Medical Devices section. Medical History Medical History Date Comments Hyponatremia 06/21/2024 Family History Medical History Relation Name Comments Anesthesia problems Neg Hx Social History Tobacco Use Types Packs/Day Years [...] on file Legal Sex Male 1:55 AM MAGAZINE REPAIRER Gender Identity Not on file Sexual Orientation [...] 07/25/2024 3:20 AM CDT Plan of Treatment Health Maintenance Due Date Last Done Comments Colon Cancer Screening-Colonoscopy 1950 Depression Screening 1950 DTaP/Tdap/Td Vaccine (1 - Tdap) 1961 Hepatitis B Screening 1968 Pneumococcal vaccine 65+ (1 of 2 - PCV) 1969 Well Visit 65+ 08/10/2015 Covid-19 Vaccine (5 - 2023-2 5 season) 2023 03/15/2023, 02/16/2022, 03/18/2021, Additional history exists Influenza Vaccine (Season Ended) 2024 03/15/2023, 02/16/2022, 03/18/2021, Additional history exists Fall Risk Assessment 08/12/2025 08/12/2024 Zoster Vaccine Completed 08/07/2020, 04/30, 01/26/2014 Abdominal Aortic Aneurysm (A AA) Screen Completed 06/21/2024 Hepatitis C Screening Completed 06/22/2024 Medical Devices Implanted Type Area Pot Sander Device Identifier Shelf Expiration Date Model / Serial / Lot Terumo Cardio Vascular Gelweave 10mm 30cm Suture Retention Unique Hydrolyzable Abdomen [id number] - [id number] - [id number] Implanted:Qty: 1 on 07/30/2024 by Nick Veliz MD at [facility] Other - see comments N/A: Heart Terumo Cardio Vascular [id number] 04/29/2027 [id number] / [id number] / [id number] Atricure Device Closure Atriclip Nitinol Polyester 45 D L35mm L6cm Flexible Shaft Plunger In Flight Refueling Operator Left Atrial Appendage Exclusion System [id number] - [id number] - [id number] Implanted:Qty: 1 on 07/30/2024 by Nick Veliz MD at [facility] Other - see comments N/A: Heart Atricure 04/30/2027 [id number] / [id number] / [id number] [employer] Ben-Cristi ds 32mm 39.6mm 31.9mm 70.4mm Flexible Band Template [id number] - [id number] - [id number] Implanted:Qty: 1 on 07/30/2024 by Nick Veliz MD at [facility] Other - see comments N/A: Mitral Valve Fern[employer] [id number] 10/16/2027 [id number] / [id number] / 0 [employer] Kit Ventricular Assist Device Pump Percutaneous Impella 5.5 Smartassist [id number] - [id number] - [id number] Implanted:Qty: 1 on 07/30/2024 by Nick Veliz MD at [facility] Other - see comments N/A: Heart [employer] [id number] 12/28/2025 [id number] / [id number] / [id number] Description:S/B Clinical Tri al device [id number] IMPELLA 5.5 [id number] per [facility] Trial Recruiting And Selection Consultant [employer] Magna Ease 25mm [id number] - [id number] - [id number] Implanted:Qty: 1 on 07/30/2024 by Nick Veliz MD at [facility] Prosthetic Valve N/A: Aortic Valve [employer] [id number] 10/17/2027 [id number] / [id number] / 0 Procedures Procedure Name Priority Date/Time [...] AM CDT BLOOD GAS, ARTERIAL STAT 08/02/2024 4 :06 AM CDT OXYHEMOGLOBIN, PULMONARY ARTERY STAT 08/02/2024 [...] CHEMISTRIES, ARTERIAL Routine 07/30/2024 10:08 AM CDT LA AN PROCEDURE PLACEHOLDER Routine 07/30/2024 9:54 AM [...] AM CDT EGFR Routine 06/22/2024 5:59 AM MAGAZINE REPAIRER DIFFERENTIAL AUTO Routine 06/22/2024 5:5 9 AM MAGAZINE REPAIRER PHOSPHORUS Routine 06/22/2024 5:59 AM MAGAZINE REPAIRER MAGNESIUM Routine 06/22/2024 5:59 AM MAGAZINE REPAIRER CBC WITH AUTO DIFFERENTIAL Routine 06/22/2024 5:59 AM MAGAZINE REPAIRER BASIC METABOLIC PANEL Routine 06/22/2024 5:59 AM MAGAZINE REPAIRER TROPONIN I HIGH-SENSITIVITY Routine 06/22/2024 5:59 AM MAGAZINE REPAIRER RPR Routine 06/22/2024 5:59 AM MAGAZINE REPAIRER HEPATITIS C ANTIBODY Routine 06/22/2024 5:59 AM MAGAZINE REPAIRER HEPATITIS B SURFACE ANTIGEN Routine 06/22/2024 5:59 AM MAGAZINE REPAIRER HIV 1/2 ANTIBODY PLUS P24 ANTIGEN Routine 06/22/2024 5:59 AM MAGAZINE REPAIRER URINALYSIS, MICROSCOPIC ONLY Routine 06/21/2024 4:33 PM MAGAZINE REPAIRER URINALYSIS AND REFLEX TO MICROSCOPIC AND CULTURE Routine 06/21/2024 4:33 PM MAGAZINE REPAIRER TROPONIN I HIGH-SENSITIVITY STAT 06/21/2024 3:57 PM MAGAZINE REPAIRER BLOOD GAS, ARTERIAL STAT 06/21/2024 3 :57 PM MAGAZINE REPAIRER BLOOD CULTURE Routine 06/21/2024 3:57 PM MAGAZINE REPAIRER BLOOD CULTURE Routine 06/21/2024 3:57 PM MAGAZINE REPAIRER SODIUM, URINE, RANDOM Routine 06/21/2024 1:19 PM MAGAZINE REPAIRER OSMOLALITY, URINE Routine 06/21/2024 1:1 9 PM MAGAZINE REPAIRER OSMOLALITY, BLOOD Routine 06/21/2024 1:0 3 PM MAGAZINE REPAIRER RESPIRATORY PATHOGEN PANEL STAT 06/21/2024 1:[address] CHEST ABDOMEN PELVIS W CONTRAST ED 06/21/2024 12:[address] RECON THORACIC AND LUMBAR SPINE W CONTRAST ED 06/21/2024 12:[address] SHOULDER RIGHT WO CONTRAST ED 06/21/2024 12:38 PM MAGAZINE REPAIRER LA CRITICAL CARE ILL/INJURED PATIENT INIT 30-74 MIN Routine 06/21/2024 12:19 PM MAGAZINE REPAIRER XR SHOULDER RIGHT 2 OR MORE VIEWS ED Urgent/IP Urgent 06/21/2024 10:21 AM MAGAZINE REPAIRER PRO B-TYPE NATRIURETIC PEPTIDE STAT 06/21/2024 8:55 AM MAGAZINE REPAIRER EGFR STAT 06/21/2024 8:55 AM MAGAZINE REPAIRER COMPREHENSIVE METABOLIC PANEL STAT 06/21/2024 8:55 AM MAGAZINE REPAIRER XR PELVIS 1 OR 2 VIEWS ED 8:51 AM MAGAZINE REPAIRER XR CHEST 1 VIEW ED 06/21/2024 8:51 AM MAGAZINE REPAIRER B CHECK SAMPLE STAT 06/21/2024 8:28 AM MAGAZINE REPAIRER ECG 12-LEAD STAT 06/21/2024 7:42 AM MAGAZINE REPAIRER EGFR STAT 06/21/2024 7:42 AM MAGAZINE REPAIRER DIFFERENTIAL AUTO STAT 06/21/2024 7:4 2 AM MAGAZINE REPAIRER ETHANOL STAT 06/21/2024 7:42 AM MAGAZINE REPAIRER APTT STAT 06/21/2024 7:42 AM MAGAZINE REPAIRER PROTIME-INR STAT 06/21/2024 7:42 AM MAGAZINE REPAIRER TYPE AND SCREEN STAT 06/21/2024 7:42 AM MAGAZINE REPAIRER COMPREHENSIVE METABOLIC PANEL STAT 06/21/2024 7:42 AM MAGAZINE REPAIRER CBC WITH AUTO DIFFERENTIAL STAT 06/21/2024 7:42 AM MAGAZINE REPAIRER XR HUMERUS RIGHT 2 OR MORE VIEWS ED 06/21/2024 7:23 AM MAGAZINE REPAIRER XR SHOULDER RIGHT 2 OR MORE VIEWS ED 06/21/2024 7:23 AM MAGAZINE REPAIRER XR TRANSFER OF OUTSIDE FILMS Routine 06/21/2024 7:22 AM MAGAZINE REPAIRER ED MODERATE SEDATION Routine 06/21/2024 5:33 AM MAGAZINE REPAIRER from Last 3 Months Results * (ABNORMAL) [...] Heart J. 2006:27:330-337. 2. John RW, Bob AM. J. AM Eddie Cardiol: Cardiovasc Imag. 2009;2: 216- 225. Interpretive Data Last Revised Date: 2017. Blood 08/12/2024 9:56 AM CDT 08/12/2024 10:42 AM CDT Narrative [facility] - 08/12/2024 11:19 AM CDT For IMPACT trial do not delete. Nick Veliz MD LAB BLOOD ORDERABLES Fin al Result [facility] Department of Laboratories [place], [place] [id number] * TRANSTHORACIC ECHO (TTE) COMPLETE W DOPPLER/CF W CONTRAST (08/12/2024 8:32 AM CDT) Anatomical Region Laterality Modality Ultrasound 08/12/2024 7:10 AM CDT Narrative 08/13/2024 7:58 AM CDT [facility] [place] [address] Transthoracic Echocardiographic Report Patient Name: SHEY SHAH C : 1950 (74y ) Gender: M Study Date: 08/12/2024 07:10:06 AM Ht(Inch): 73 Wt(Lb): 195.99 BSA: 2.14 Carbon Capture Power Plant Engineer: Raul Roque LION Location: [id number] Order Provider: TY WEINBERG Heart Rate: 78 [...] Procedure Note Yash Palmer MD - 08/13/2024 [facility] [place] [address] [place] [address] Transthoracic Echocardiographic Report Patient Name: SHEY SHAH C : 1950 (74y ) Gender: M Study Date: 08/12/2024 07:10:06 AM Ht(Inch): 73 Wt(Lb): 195.99 BSA: 2.14 Carbon Capture Power Plant Engineer: Raul Roque RDCS Location: [id number] Order Provider: TY WEINBERG Heart Rate: 78 [...] cm2 RA Volume 47.13 ml MV Decel Hcjn210.22 msec [ 104.00 - 258.00 ] RA [...] Yash Palmer MD 08/13/2024 7:57:36 AM CDT us Ty Weinberg NP CV ECHO PROCEDURES Fin [...] 08/11/2024 8:50 PM CDT us Humza Fernandez NP LAB BLOOD ORDERABLES Final Result [facility] One [facility] [place] [address] * (ABNORMAL) CBC without differential (08/11/2024 8:16 PM CDT) WBC 13.80(H) 3.80 - 9.90 K/cumm Hgb 9.5(L) 13.0 - 17.5 g/dL [facility] Hct 29.3(L) 38.9 - 50.3 % [facility] Plt 361 150 - 400 K/cumm [facility] MPV 10.3 9.1 - 12.3 fL [facility] RBC 2.88(L) 4.30 - 5.80 M/cumm [facility] MCV 101.7(H) 81.3 - 96.4 fL [facility] MCH 33.0 27.1 - 33.3 pg [facility] MCHC 32.4 32.3 - 35.7 g/dL [facility] RDW CV 14.2 11.1 - 14.9 % [facility] RDW SD 52.5(H) 35.7 - 48.1 fL [facility] NRBC abs 0.00 0.00 - 0.01 K/cumm [facility] Blood 08/11/2024 8:16 PM CDT 08/11/2024 8:53 PM CDT us Alanna Dominguez NP LAB BLOOD ORDERABLES Final R esult [facility] One [facility] [place] [address] * Type and screen (08/11/2024 8:16 PM CDT) Pathologist [facility] ABO Rh A Positive Kumar, indirect Negative [facility] Blood 08/11/2024 8:16 PM CDT 08/11/2024 9:36 PM CDT Narrative [facility] - 08/11/2024 10:35 PM CDT Has the patient had Daratumumab or Isatuximab in the past 6 months?->Unknown us Alanna G. Angelica RN RESIDENTIAL LAB BLOOD BANK TEST ORDERABL ES Final Result Performing Organization Address [facility] Co de Phone Number [facility] [place] [address] * Phosphorus (08/11/2024 8:16 PM CDT) [facility] Phosphorus, pl 3.4 2.3 - 4.5 mg/dL Blood 08/11/2024 8:16 PM CDT 08/11/2024 8:50 PM CDT us Alanna Dominguez RN RESIDENTIAL LAB BLOOD ORDERABLES Final R esult Performing Organization Address [facility] Co de Phone Number [facility] [place] [address] * Magnesium (08/11/2024 8:16 PM CDT) [facility] Magnesium 1.9 1.4 - 2.5 mg/dL Blood 08/11/2024 8:16 PM CDT 08/11/2024 8:50 PM CDT Yen Mccoy RN RESIDENTIAL LAB BLOOD ORDERABLES Final Result Performing Organization Address [facility] Co de Phone Number [facility] [place] [address] * Basic metabolic panel (08/11/2024 8:16 PM CDT) [facility] Sodium 136 135 - 145 mmol/L Potassium, pl 3.9 3.3 - 4.9 mmol/L [facility] Chloride 97 97 - 110 mmol/L [facility] CO2 30 22 - 32 mmol/L [facility] Anion gap 9 2 - 15 mmol/L [facility] BUN 20 6 - 25 mg/dL [facility] Creatinine 1.17 0.80 - 1.30 mg/dL [facility] Glucose 169 70 - 199 mg/dL [facility] Comment: Interpretive Data Fasting glucose [...] 2022. Calcium 9.0 8.5 - 10.3 mg/dL [facility] Blood 08/11/2024 8:16 PM CDT 08/11/2024 8:50 PM CDT us Humza Fernandez NP LAB BLOOD ORDERABLES Final Result [facility] One [facility] Department [place] [address] * eGFR (08/11/2024 9:02 AM CDT) eGFR [...] 9:02 AM CDT 08/11/2024 9:55 AM CDT Humza Fernandez RN RESIDENTIAL LAB BLOOD ORDERABLES Final Result [facility] Department [place] [address] * Basic metabolic panel (08/11/2024 9:02 AM CDT) Pathologist [facility] Sodium 140 135 - 145 mmol/L Potassium, pl 3.8 3.3 - 4.9 mmol/L [facility] Chloride 99 97 - 110 mmol/L [facility] CO2 31 22 - 32 mmol/L [facility] Anion gap 10 2 - 15 mmol/L [facility] BUN 16 6 - 25 mg/dL [facility] Creatinine 1.14 0.80 - 1.30 mg/dL [facility] Glucose 109 70 - 199 mg/dL [facility] Comment: Interpretive Data Fasting glucose [...] 2022. Calcium 9.3 8.5 - 10.3 mg/dL [facility] Blood 08/11/2024 9:02 AM CDT 08/11/2024 9:55 AM CDT Humza Fernandez RN RESIDENTIAL LAB BLOOD ORDERABLES Final Result Performing Organization Address City/[facility]/ZIP Co de Phone Number [facility] Department [place] [address] * Infection Prevention Joce auris PCR, surveillance Axilla/Groin (08/11/2024 7:55 AM CDT) Pathologist [facility] Joce auris DNA Not Detected Not Detected [facility] Comment: Interpretive Data Testing performed by [facility] Molecular Infectious Disease Laboratory using the Idalia lui 6800 Joce auris assay. This assay detects DNA from Joce auris using Real-Time PCR. This assay is laboratory developed and is not cleared by the [place] Food and Drug Administration. The performance characteristics have been verified by the [facility] Molecular Infectious Disease Laboratory. Axilla/Groin 08/11/2024 7:55 AM CDT 08/11/2024 8:30 AM CDT Narrative [facility] - 08/11/2024 12:57 PM CDT Order placed by [facility] due to ring surveillance. us Instant Order Generic Provider LAB MICROBIOLOGY - GENERAL ORDERABLES Final Result [facility] One [facility] [place] [address] [facility] * eGFR (08/10/2024 10:07 PM CDT) eGFR 60 >=60 mL/min/1. 73 m2 Comment: [...] 08/10/2024 10:37 PM CDT us Humza Fernandez RN RESIDENTIAL LAB BLOOD ORDERABLES Final Result Performing Organization Address [facility] Co de Phone Number [facility] [place] [address] * (ABNORMAL) CBC without differential (08/10/2024 10:07 PM CDT) WBC 13.89(H) 3.80 - 9.90 K/cumm Hgb 9.8(L) 13.0 - 17.5 g/dL [facility] Hct 29.9(L) 38.9 - 50.3 % [facility] Plt 338 150 - 400 K/cumm [facility] MPV 10.4 9.1 - 12.3 fL [facility] RBC 2.96(L) 4.30 - 5.80 M/cumm [facility] MCV 101.0(H) 81.3 - 96.4 fL [facility] MCH 33.1 27.1 - 33.3 pg [facility] MCHC 32.8 32.3 - 35.7 g/dL [facility] RDW CV 14.2 11.1 - 14.9 % [facility] RDW SD 51.6(H) 35.7 - 48.1 fL [facility] NRBC abs 0.00 0.00 - 0.01 K/cumm [facility] Blood 08/10/2024 10:0 7 PM CDT 08/10/2024 10:38 PM CDT us Alanna Dominguez RN RESIDENTIAL LAB BLOOD ORDERABLES Final R esult [facility] [place] [address] * Phosphorus (08/10/2024 10:07 PM CDT) Pathologist [facility] Phosphorus, pl 3.4 2.3 - 4.5 mg/dL Blood 08/10/2024 10:0 7 PM CDT 08/10/2024 10:37 PM CDT us Alanna Dominguez RN RESIDENTIAL LAB BLOOD ORDERABLES Final R esult [facility] Department [place] [address] * Magnesium (08/10/2024 10:07 PM CDT) Magnesium 1.7 1.4 - 2.5 mg/dL Blood 08/10/2024 10:0 7 PM CDT 08/10/2024 10:37 PM CDT us Yen Mccoy RN RESIDENTIAL LAB BLOOD ORDERABLES Final Result Performing Organization Address [facility] Co de Phone Number [facility] [place] [address] * (ABNORMAL) Hepatic function panel (08/10/2024 10:07 PM CDT) Bilirubin, total 0.6 0.1 - 1.2 mg/dL Bilirubin, direct 0.2 0.1 - 0.3 mg/dL [facility] Protein, pl 6.5 6.5 - 8.5 g/dL [facility] Albumin 2.9(L) 3.5 - 5.0 g/dL [facility] Alk phos 81 40 - 130 Units/L [facility] ALT 35 7 - 55 Units/L [facility] AST 36 10 - 50 Units/L [facility] Blood 08/10/2024 10:0 7 PM CDT 08/10/2024 10:37 PM CDT us Onelia Arellano RN RESIDENTIAL LAB BLOOD ORDERABLES Final Result Performing Organization Address [facility]/ZIP Co de Phone Number [facility] [place] [address] * (ABNORMAL) Basic metabolic panel (08/10/2024 10:07 PM CDT) Pathologist [facility] Sodium 135 135 - 145 mmol/L Potassium, pl 4.4 3.3 - 4.9 mmol/L [facility] Chloride 95(L) 97 - 110 mmol/L [facility] CO2 28 22 - 32 mmol/L [facility] Anion gap 12 2 - 15 mmol/L [facility] BUN 18 6 - 25 mg/dL [facility] Creatinine 1.25 0.80 - 1.30 mg/dL [facility] Glucose 115 70 - 199 mg/dL [facility] Comment: Interpretive Data Fasting glucose [...] 2022. Calcium 8.6 8.5 - 10.3 mg/dL [facility] Blood 08/10/2024 10:0 7 PM CDT 08/10/2024 10:37 PM CDT us Humza Fernandez NP LAB BLOOD ORDERABLES Final Result [facility] One [facility] [place] [address] * eGFR (08/10/2024 8:59 AM CDT) [facility] eGFR 67 >=60 mL/min/1. 73 m2 Comment: [...] 08/10/2024 9:33 AM CDT us Humza Fernandez NP LAB BLOOD ORDERABLES Final Result [facility] One [facility] [place] [address] * Basic metabolic panel (08/10/2024 8:59 AM CDT) Sodium 138 135 - 145 mmol/L Potassium, pl 3.8 3.3 - 4.9 mmol/L [facility] Chloride 97 97 - 110 mmol/L [facility] CO2 31 22 - 32 mmol/L [facility] Anion gap 10 2 - 15 mmol/L [facility] BUN 14 6 - 25 mg/dL [facility] Creatinine 1.15 0.80 - 1.30 mg/dL [facility] Glucose 125 70 - 199 mg/dL [facility] Comment: Interpretive Data Fasting glucose [...] 2022. Calcium 8.9 8.5 - 10.3 mg/dL [facility] Blood 08/10/2024 8:59 AM CDT 08/10/2024 9:33 AM CDT Humza Fernandez RN RESIDENTIAL LAB BLOOD ORDERABLES Final Result Performing Organization Address [facility] Co de Phone Number [facility] [place] [address] * eGFR (2024 8:38 PM CDT) eGFR [...] CDT 2024 10:37 PM CDT Humza Fernandez RN RESIDENTIAL LAB BLOOD ORDERABLES Final Result Performing Organization Address [facility]/ZIP Co de Phone Number [facility] Department [place] [address] * (ABNORMAL) CBC without differential (2024 8:38 PM CDT) WBC 10.80(H) 3.80 - 9.90 K/cumm Hgb 9.5(L) 13.0 - 17.5 g/dL [facility] Hct 29.1(L) 38.9 - 50.3 % [facility] Plt 366 150 - 400 K/cumm [facility] MPV 10.7 9.1 - 12.3 fL [facility] RBC 2.90(L) 4.30 - 5.80 M/cumm [facility] MCV 100.3(H) 81.3 - 96.4 fL [facility] MCH 32.8 27.1 - 33.3 pg [facility] MCHC 32.6 32.3 - 35.7 g/dL [facility] RDW CV 14.3 11.1 - 14.9 % [facility] RDW SD 52.3(H) 35.7 - 48.1 fL [facility] NRBC abs 0.00 0.00 - 0.01 K/cumm [facility] Blood 2024 8:38 PM CDT 2024 9:41 PM CDT Alanna Dominguez RN RESIDENTIAL LAB BLOOD ORDERABLES Final R esult Performing Organization Address City/[facility]/ZIP Co de Phone Number [facility] [place] [address] * Phosphorus (2024 8:38 PM CDT) Phosphorus, pl 3.1 2.3 - 4.5 mg/dL Blood 2024 8:38 PM CDT 2024 10:37 PM CDT Alanna Dominguez RN RESIDENTIAL LAB BLOOD ORDERABLES Final R esult [facility] [place] [address] * Magnesium (2024 8:38 PM CDT) Magnesium 1.8 1.4 - 2.5 mg/dL Blood 2024 8:38 PM CDT 2024 10:37 PM CDT us Yen Mccoy RN RESIDENTIAL LAB BLOOD ORDERABLES Final Result Performing Organization Address City/[facility]/ZIP Co de Phone Number [facility] [place] [address] * Basic metabolic panel (2024 8:38 PM CDT) [facility] Sodium 139 135 - 145 mmol/L Potassium, pl 4.4 3.3 - 4.9 mmol/L [facility] Chloride 100 97 - 110 mmol/L [facility] CO2 30 22 - 32 mmol/L [facility] Anion gap 9 2 - 15 mmol/L [facility] BUN 17 6 - 25 mg/dL [facility] Creatinine 1.15 0.80 - 1.30 mg/dL [facility] Glucose 115 70 - 199 mg/dL [facility] Comment: Interpretive Data Fasting glucose [...] 2022. Calcium 8.6 8.5 - 10.3 mg/dL [facility] Blood 2024 8:38 PM CDT 2024 10:37 PM CDT us Humza Fernandez RN RESIDENTIAL LAB BLOOD ORDERABLES Final Result Performing Organization Address [facility] Co de Phone Number [facility] [place] [address] * XR Chest Pa Lateral 2 Views [...] signed by: Maury Jaeger M.D. Vicenta Lundberg RN RESIDENTIAL IMG XR PROCEDURE S Final Result * ECG 12 lead (2024 8:09 AM CDT) Ventricular Rate EKG/Min 73 BPM [facility] Atrial Rate 73 BPM [facility] LA-Interval (MSEC) 190 ms [facility] QRS-Interval (MSEC) 100 ms [facility] QT-Interval (MSEC) 446 ms [facility] QTc 491 ms [facility] P [place] 76 degrees [facility] R [place] 62 degrees [facility] T [place] 19 degrees [facility] Diagnosis Normal sinus rhythm T wave abnormality, consider anterior ischemia Prolonged QT Abnormal ECG Confirmed by Martina Simmons MD ([id number]) on 08/13/2024 1:32:42 PM [facility] 2024 8:09 AM CDT 08/13/2024 1:32 PM CDT us Alanna Dominguez RN RESIDENTIAL ECG ORDERABLES Final Result [facility] * Lactate (2024 6:27 AM CDT) Lactate 0.8 0.7 - 2.0 mmol/L Blood 2024 6:27 AM CDT 2024 6:48 AM CDT Nick Veliz MD LAB BLOOD ORDERABLES Fin al Result Performing Organization Address City/[facility] Co de Phone Number [facility] [place] [address] * eGFR (08/08/2024 10:48 PM CDT) eGFR [...] 08/08/2024 11:32 PM CDT us Humza Fernandez RN RESIDENTIAL LAB BLOOD ORDERABLES Final Result Performing Organization Address City/[facility] de Phone Number [facility] [place] [address] * (ABNORMAL) CBC without differential (08/08/2024 10:48 PM CDT) Pathologist [facility] WBC 8.90 3.80 - 9.90 K/cumm Hgb 9.0(L) 13.0 - 17.5 g/dL [facility] Hct 27.0(L) 38.9 - 50.3 % [facility] Plt 292 150 - 400 K/cumm [facility] MPV 10.5 9.1 - 12.3 fL [facility] RBC 2.72(L) 4.30 - 5.80 M/cumm [facility] MCV 99.3(H) 81.3 - 96.4 fL [facility] MCH 33.1 27.1 - 33.3 pg [facility] MCHC 33.3 32.3 - 35.7 g/dL [facility] RDW CV 14.4 11.1 - 14.9 % [facility] RDW SD 51.8(H) 35.7 - 48.1 fL [facility] NRBC abs 0.00 0.00 - 0.01 K/cumm [facility] Blood 08/08/2024 10:4 8 PM CDT 08/08/2024 11:32 PM CDT Alanna Dominguez RN RESIDENTIAL LAB BLOOD ORDERABLES Final R esult Performing Organization Address City/[facility]/ZIP Co de Phone Number [facility] [place] [address] * Type and screen (08/08/2024 10:48 PM CDT) Pathologist [facility] ABO Rh A Positive Kumar, indirect Negative [facility] Blood 08/08/2024 10:4 8 PM CDT 08/08/2024 11:29 PM CDT Narrative [facility] - 2024 12:59 AM CDT Has the patient had Daratumumab or Isatuximab in the past 6 months?->Unknown Alanna Dominguez RN RESIDENTIAL LAB BLOOD BANK TEST ORDERABL ES Final Result Performing Organization Address [facility] de Phone Number [facility] [place] [address] * Phosphorus (08/08/2024 10:48 PM CDT) [facility] Phosphorus, pl 3.4 2.3 - 4.5 mg/dL Blood 08/08/2024 10:4 8 PM CDT 08/08/2024 11:32 PM CDT Alanna Dominguez RN RESIDENTIAL LAB BLOOD ORDERABLES Final R esult Performing Organization Address [facility] de Phone Number [facility] [place] [address] * Magnesium (08/08/2024 10:48 PM CDT) [facility] Magnesium 1.9 1.4 - 2.5 mg/dL Blood 08/08/2024 10:4 8 PM CDT 08/08/2024 11:32 PM CDT Yen Mccoy RN RESIDENTIAL LAB BLOOD ORDERABLES Final Result Performing Organization Address [facility] de Phone Number [facility] [place] [address] * (ABNORMAL) Basic metabolic panel (08/08/2024 10:48 PM CDT) [facility] Sodium 137 135 - 145 mmol/L Potassium, pl 4.0 3.3 - 4.9 mmol/L [facility] Chloride 98 97 - 110 mmol/L [facility] CO2 29 22 - 32 mmol/L [facility] Anion gap 10 2 - 15 mmol/L [facility] BUN 17 6 - 25 mg/dL [facility] Creatinine 1.02 0.80 - 1.30 mg/dL [facility] Glucose 110 70 - 199 mg/dL [facility] Comment: Interpretive Data Fasting glucose [...] 2022. Calcium 8.1(L) 8.5 - 10.3 mg/dL [facility] Blood 08/08/2024 10:4 8 PM CDT 08/08/2024 11:32 PM CDT Huzma Fernandez NP LAB BLOOD ORDERABLES Final Result Performing Organization Address City/[facility]/ZIP Co de Phone Number [facility] [place] [address] * Infection Prevention Joce auris PCR, surveillance Axilla/Groin (08/08/2024 12:43 PM CDT) Pathologist [facility] Joce auris DNA Not Detected Not Detected [facility] Comment: Interpretive Data Testing performed by [facility] Infectious Disease Laboratory using the [employer]alia lui [id number] Joce auris assay. This assay detects DNA from Joce auris using Real-Time PCR. This assay is laboratory developed and is not cleared by the [place] Food and Drug Administration. The performance characteristics have been verified by the [facility] Infectious Disease [facility]. Axilla/Groin 08/08/2024 12:4 3 PM CDT 08/08/2024 1:23 PM CDT Herson Perla MD LAB MICROBIOLOGY - GENERAL ORDER VAHID Final Result Performing Organization Address City/[facility]/ZIP Co de Phone Number [facility] [place] [address] [facility] * eGFR (08/08/2024 8:02 AM CDT) [facility] eGFR 77 >=60 mL/min/1. 73 m2 Comment: [...] Fernandez NP LAB BLOOD ORDERABLES Final Result [facility] [place] [address] * (ABNORMAL) Basic metabolic panel (08/08/2024 8:02 AM CDT) [facility] Sodium 139 135 - 145 mmol/L Potassium, pl 4.1 3.3 - 4.9 mmol/L [facility] Chloride 100 97 - 110 mmol/L [facility] CO2 30 22 - 32 mmol/L [facility] Anion gap 9 2 - 15 mmol/L [facility] BUN 15 6 - 25 mg/dL [facility] Creatinine 1.03 0.80 - 1.30 mg/dL [facility] Glucose 107 70 - 199 mg/dL [facility] Comment: Interpretive Data Fasting glucose [...] 2022. Calcium 8.4(L) 8.5 - 10.3 mg/dL [facility] Blood 08/08/2024 8:02 AM CDT 08/08/2024 8:45 AM CDT us Humza Fernandez RN RESIDENTIAL LAB BLOOD ORDERABLES Final Result [facility] One [facility] [place] [address] * ECG 12 lead (08/08/2024 3:37 AM CDT) Pathologist [facility] Ventricular Rate EKG/Min 76 BPM [facility] Atrial Rate 76 BPM [facility] LA-Interval (MSEC) 182 ms [facility] QRS-Interval (MSEC) 100 ms [facility] QT-Interval (MSEC) 458 ms [facility] QTc 515 ms [facility] P [place] 97 degrees [facility] R [place] 65 degrees [facility] T [place] 15 degrees [facility] Diagnosis Normal sinus rhythm Possible Lateral infarct , age undetermined Poor r wave progression associated with abnormal lead placement, obesity, pulmonary disease, anterior infarction. Prolonged QT Abnormal ECG When compared with ECG of 06-AUG-2024 05:53, Borderline criteria for Lateral infarct are now Present T wave inversion more evident in Anterior leads Confirmed by GAVINO KELLEY M.D ([id number]) on 08/08/2024 1:03:32 PM [facility] 08/08/2024 3:37 AM CDT 08/08/2024 1:03 PM CDT us Alanna Dominguez RN RESIDENTIAL ECG ORDERABLES Final Result Performing Organization Address City/[facility] Co de Phone Number [facility] * eGFR (08/07/2024 10:12 PM CDT) eGFR [...] 08/07/2024 10:48 PM CDT us Humza Fernandez RN RESIDENTIAL LAB BLOOD ORDERABLES Final Result Performing Organization Address [facility] de Phone Number [facility] One [facility] [place] [address] * (ABNORMAL) CBC without differential (08/07/2024 10:12 PM CDT) WBC 8.80 3.80 - 9.90 K/cumm Hgb 8.6(L) 13.0 - 17.5 g/dL [facility] Hct 26.5(L) 38.9 - 50.3 % [facility] Plt 247 150 - 400 K/cumm [facility] MPV 11.0 9.1 - 12.3 fL [facility] RBC 2.59(L) 4.30 - 5.80 M/cumm [facility] MCV 102.3(H) 81.3 - 96.4 fL [facility] MCH 33.2 27.1 - 33.3 pg [facility] MCHC 32.5 32.3 - 35.7 g/dL [facility] RDW CV 14.4 11.1 - 14.9 % [facility] RDW SD 53.0(H) 35.7 - 48.1 fL [facility] NRBC abs 0.00 0.00 - 0.01 K/cumm [facility] Blood 08/07/2024 10:1 2 PM CDT 08/07/2024 10:49 PM CDT us Alanna Dominguez RN RESIDENTIAL LAB BLOOD ORDERABLES Final R esult Performing Organization Address [facility] de Phone Number [facility] [place] [address] * Phosphorus (08/07/2024 10:12 PM CDT) Phosphorus, pl 3.4 2.3 - 4.5 mg/dL Blood 08/07/2024 10:1 2 PM CDT 08/07/2024 10:48 PM CDT Alanna Dominguez RN RESIDENTIAL LAB BLOOD ORDERABLES Final R esult Performing Organization Address [facility] Co de Phone Number [facility] [place] [address] * Magnesium (08/07/2024 10:12 PM CDT) Magnesium 1.9 1.4 - 2.5 mg/dL Blood 08/07/2024 10:1 2 PM CDT 08/07/2024 10:48 PM CDT Yen Mccoy RN RESIDENTIAL LAB BLOOD ORDERABLES Final Result Performing Organization Address [facility] Co de Phone Number [facility] [place] [address] * (ABNORMAL) Hepatic function panel (08/07/2024 10:12 PM CDT) Pathologist [facility] Bilirubin, total 0.7 0.1 - 1.2 mg/dL Bilirubin, direct 0.3 0.1 - 0.3 mg/dL [facility] Protein, pl 6.0(L) 6.5 - 8.5 g/dL [facility] Albumin 2.7(L) 3.5 - 5.0 g/dL [facility] Alk phos 65 40 - 130 Units/L [facility] ALT 34 7 - 55 Units/L [facility] AST 41 10 - 50 Units/L [facility] Blood 08/07/2024 10:1 2 PM CDT 08/07/2024 10:48 PM CDT Onelia Arellano NP LAB BLOOD ORDERABLES Final Result Performing Organization Address [facility] de Phone Number [facility] Department [place] [address] * (ABNORMAL) Basic metabolic panel (08/07/2024 10:12 PM CDT) [facility] Sodium 139 135 - 145 mmol/L Potassium, pl 4.0 3.3 - 4.9 mmol/L [facility] Chloride 101 97 - 110 mmol/L [facility] CO2 28 22 - 32 mmol/L [facility] Anion gap 10 2 - 15 mmol/L [facility] BUN 17 6 - 25 mg/dL [facility] Creatinine 1.03 0.80 - 1.30 mg/dL [facility] Glucose 117 70 - 199 mg/dL [facility] Comment: Interpretive Data Fasting glucose [...] Calcium 8.4(L) 8.5 - 10.3 mg/dL [facility] Blood 08/07/2024 10:1 2 PM CDT 08/07/2024 10:48 PM CDT us Humza Fernandez RN RESIDENTIAL LAB BLOOD ORDERABLES Final Result Performing Organization Address City/[facility]/ZIP Co de Phone Number [facility] One [facility] [place] [address] * eGFR (08/07/2024 8:19 AM CDT) eGFR [...] 8:19 AM CDT 08/07/2024 8:54 AM CDT us Humza Fernandez NP LAB BLOOD ORDERABLES Final Result Performing Organization Address City/[facility]/ZIP Co de Phone Number [facility] Department [place] [address] * Basic metabolic panel (08/07/2024 8:19 AM CDT) Sodium 138 135 - 145 mmol/L Potassium, pl 3.9 3.3 - 4.9 mmol/L [facility] Chloride 99 97 - 110 mmol/L [facility] CO2 29 22 - 32 mmol/L [facility] Anion gap 10 2 - 15 mmol/L [facility] BUN 16 6 - 25 mg/dL [facility] Creatinine 1.02 0.80 - 1.30 mg/dL [facility] Glucose 114 70 - 199 mg/dL [facility] Comment: Interpretive Data Fasting glucose [...] 2022. Calcium 8.8 8.5 - 10.3 mg/dL [facility] Blood 08/07/2024 8:19 AM CDT 08/07/2024 8:54 AM CDT us Humza Fernandez RN RESIDENTIAL LAB BLOOD ORDERABLES Final Result [facility] [place] [address] * eGFR (08/06/2024 9:13 PM CDT) Pathologist [facility] eGFR 74 >=60 mL/min/1. 73 m2 Comment: [...] 08/06/2024 9:53 PM CDT us Alanna Dominguez RN RESIDENTIAL LAB BLOOD ORDERABLES Final R esult [facility] One [facility] [place] [address] * (ABNORMAL) CBC without differential (08/06/2024 9:13 PM CDT) WBC 9.16 3.80 - 9.90 K/cumm Hgb 8.2(L) 13.0 - 17.5 g/dL [facility] Hct 25.1(L) 38.9 - 50.3 % [facility] Plt 200 150 - 400 K/cumm [facility] MPV 11.3 9.1 - 12.3 fL [facility] RBC 2.49(L) 4.30 - 5.80 M/cumm [facility] MCV 100.8(H) 81.3 - 96.4 fL [facility] MCH 32.9 27.1 - 33.3 pg [facility] MCHC 32.7 32.3 - 35.7 g/dL [facility] RDW CV 14.4 11.1 - 14.9 % [facility] RDW SD 52.8(H) 35.7 - 48.1 fL [facility] NRBC abs 0.00 0.00 - 0.01 K/cumm [facility] Blood 08/06/2024 9:13 PM CDT 08/06/2024 9:52 PM CDT us Alanna Dominguez RN RESIDENTIAL LAB BLOOD ORDERABLES Final R esult Performing Organization Address [facility] Co de Phone Number [facility] [place] [address] * Phosphorus (08/06/2024 9:13 PM CDT) [facility] Phosphorus, pl 2.8 2.3 - 4.5 mg/dL Blood 08/06/2024 9:13 PM CDT 08/06/2024 9:53 PM CDT us Alanna Dominguez RN RESIDENTIAL LAB BLOOD ORDERABLES Final R esult Performing Organization Address [facility] Co de Phone Number [facility] [place] [address] * Magnesium (08/06/2024 9:13 PM CDT) [facility] Magnesium 1.8 1.4 - 2.5 mg/dL Blood 08/06/2024 9:13 PM CDT 08/06/2024 9:53 PM CDT us Alanna Dominguez RN RESIDENTIAL LAB BLOOD ORDERABLES Final [facility] Performing Organization Address [facility] [place] [address] * Basic metabolic panel (08/06/2024 9:13 PM CDT) [facility] Sodium 138 135 - 145 mmol/L Potassium, pl 4.0 3.3 - 4.9 mmol/L [facility] Chloride 101 97 - 110 mmol/L [facility] CO2 27 22 - 32 mmol/L [facility] Anion gap 10 2 - 15 mmol/L [facility] BUN 19 6 - 25 mg/dL [facility] Creatinine 1.06 0.80 - 1.30 mg/dL [facility] Glucose 126 70 - 199 mg/dL [facility] Comment: Interpretive Data Fasting glucose [...] 2022. Calcium 8.6 8.5 - 10.3 mg/dL [facility] Blood 08/06/2024 9:13 PM CDT 08/06/2024 9:53 PM CDT us Alanna Dominguez RN RESIDENTIAL LAB BLOOD ORDERABLES Final R esult [facility] One [facility] [place] [address] * XR Chest Pa Lateral 2 Views [...] it. Electronically signed by: Sg Pineda M.D. us Onelia Arellano RN RESIDENTIAL IMG XR PROCEDURES Final Re sult * ECG 12 lead (08/06/2024 5:53 AM CDT) Ventricular Rate EKG/Min 74 BPM [facility] Atrial Rate 74 BPM [facility] LA-Interval (MSEC) 204 ms [facility] QRS-Interval (MSEC) 88 ms [facility] QT-Interval (MSEC) 468 ms [facility] QTc 519 ms [facility] P [place] 17 degrees [facility] R [place] 57 degrees [facility] T [place] 12 degrees [facility] Diagnosis Normal sinus rhythm Nonspecific T wave abnormality Prolonged QT Abnormal ECG When compared with ECG of 05-AUG-2024 14:54, (unconfirmed) No significant change was found Confirmed by SIVA SILVERMAN M.D ([id number]) on 08/06/2024 4:15:19 PM [facility] 08/06/2024 5:53 AM CDT 08/06/2024 4:15 PM CDT us Alanna Dominguez RN RESIDENTIAL ECG ORDERABLES Final Result Performing Organization Address City/[facility]/ZIP Co de Phone Number [facility] * eGFR (08/05/2024 8:19 PM CDT) Pathologist [facility] eGFR 85 >=60 mL/min/1. 73 m2 Comment: [...] ORDERABLES Final R esult Performing Organization Address [facility] Co de Phone Number [facility] One [facility] [place] [address] * (ABNORMAL) CBC without differential (08/05/2024 8:19 PM CDT) Pathologist [facility] WBC 10.16(H) 3.80 - 9.90 K/cumm Hgb 8.2(L) 13.0 - 17.5 g/dL [facility] Hct 24.9(L) 38.9 - 50.3 % [facility] Plt 145(L) 150 - 400 K/cumm [facility] MPV 11.3 9.1 - 12.3 fL [facility] RBC 2.42(L) 4.30 - 5.80 M/cumm [facility] MCV 102.9(H) 81.3 - 96.4 fL [facility] MCH 33.9(H) 27.1 - 33.3 pg [facility] MCHC 32.9 32.3 - 35.7 g/dL [facility] RDW CV 14.5 11.1 - 14.9 % [facility] RDW SD 54.6(H) 35.7 - 48.1 fL [facility] NRBC abs 0.00 0.00 - 0.01 K/cumm [facility] [facility] Blood 08/05/2024 8:19 PM CDT 08/05/2024 8:48 PM CDT us Alanna Dominguez NP LAB BLOOD ORDERABLES Final R esult Performing Organization Address City/[facility]/ZIP Co de Phone Number [facility] [place] [address] * Type and screen (08/05/2024 8:19 PM CDT) Kumar, indirect Negative ABO Rh A Positive [facility] Blood 08/05/2024 8:19 PM CDT 08/05/2024 8:51 PM CDT Narrative [facility] - 08/05/2024 10:00 PM CDT Has the patient had Daratumumab or Isatuximab in the past 6 months?->Unknown us Alanna Dominguez NP LAB BLOOD BANK TEST ORDERABL ES Final Result [facility] [place] [address] * Phosphorus (08/05/2024 8:19 PM CDT) Phosphorus, pl 2.5 2.3 - 4.5 mg/dL Blood 08/05/2024 8:19 PM CDT 08/05/2024 8:47 PM CDT Alanna Dominguez RN RESIDENTIAL LAB BLOOD ORDERABLES Final R esult Performing Organization Address City/[facility]/ZIP Co de Phone Number [facility] [place] [address] * Magnesium (08/05/2024 8:19 PM CDT) Pathologist [facility] Magnesium 1.8 1.4 - 2.5 mg/dL Blood 08/05/2024 8:19 PM CDT 08/05/2024 8:47 PM CDT Alanna Dominguez RN RESIDENTIAL LAB BLOOD ORDERABLES Final R [facility] Performing Organization Address [facility] Co de Phone Number [facility] [place] [address] * (ABNORMAL) Basic metabolic panel (08/05/2024 8:19 PM CDT) [facility] Sodium 139 135 - 145 mmol/L Potassium, pl 4.0 3.3 - 4.9 mmol/L [facility] Chloride 103 97 - 110 mmol/L [facility] CO2 27 22 - 32 mmol/L [facility] Anion gap 9 2 - 15 mmol/L [facility] BUN 21 6 - 25 mg/dL [facility] Creatinine 0.95 0.80 - 1.30 mg/dL [facility] Glucose 149 70 - 199 mg/dL [facility] Comment: Interpretive Data Fasting glucose [...] 2022. Calcium 8.4(L) 8.5 - 10.3 mg/dL [facility] Blood 08/05/2024 8:19 PM CDT 08/05/2024 8:47 PM CDT Alanna Dominguez NP LAB BLOOD ORDERABLES Final R esult Performing Organization Address City/[facility] Co de Phone Number MARGI [facility] [place] [address] * Infection Prevention Joce auris PCR, surveillance Axilla/Groin (08/05/2024 4:41 PM CDT) Pathologist [facility] Joce auris DNA Not Detected Not Detected [facility] Comment: Interpretive Data Testing performed by [facility] Molecular Infectious Disease Laboratory using the Idalia lui 6800 Joce auris assay. This assay detects DNA from Joce auris using Real-Time PCR. This assay is laboratory developed and is not cleared by the [facility] Food and Drug Administration. The performance characteristics have been verified by the [facility] Molecular Infectious Disease Laboratory. Axilla/Groin 08/05/2024 4:41 PM CDT 08/05/2024 5:24 PM CDT Herson Perla MD LAB MICROBIOLOGY - GENERAL ORDER VAHID Final Result Performing Organization Address City/[facility] Co de Phone Number MARGI [facility] [place] [address] [facility] * ECG 12 lead (08/05/2024 2:54 PM CDT) Ventricular Rate EKG/Min 76 BPM [facility] Atrial Rate 76 BPM [facility] LA-Interval (MSEC) 194 ms [facility] QRS-Interval (MSEC) 82 ms [facility] QT-Interval (MSEC) 454 ms [facility] QTc 510 ms [facility] P [place] 67 degrees [facility] R [place] 62 degrees [facility] T [place] 11 degrees [facility] Diagnosis Normal sinus rhythm Nonspecific T wave abnormality Prolonged QT Abnormal ECG Confirmed by SIVA SILVERMAN M.D ([id number]) on 08/07/2024 10:45:07 PM [facility] 08/05/2024 2:54 PM CDT 08/07/2024 10:45 PM CDT us Nick Veliz MD ECG ORDERABLES Final Re sult Performing Organization Address City/[facility]/ZIP Co de Phone Number [facility] * Potassium, whole blood (08/05/2024 12:04 PM CDT) Potassium, bld 4.0 3.3 - 4.9 mmol/L Blood 08/05/2024 12:0 4 PM CDT 08/05/2024 12:08 PM CDT Arabella Gary RN RESIDENTIAL LAB BLOOD ORDERABLES Fi nal Result Performing Organization Address [facility] Co de Phone Number [facility] Department [place] [address] * POCT glucose (08/05/2024 12:04 PM CDT) Glucose, POC 125 70 - 199 mg/dL Blood 08/05/2024 12:0 4 PM CDT 08/05/2024 12:04 PM CDT Nick Veliz MD LAB POCT ORDERABLES - DE VICE Final Result Performing Organization Address [facility] Co de Phone Number [facility] Department [place] [address] * POCT glucose (08/05/2024 8:07 AM CDT) Glucose, POC 123 70 - 199 mg/dL Blood 08/05/2024 8:07 AM CDT 08/05/2024 8:07 AM CDT Nick Veliz MD LAB POCT ORDERABLES - DE VICE Final Result Performing Organization Address City/[facility]/ZIP Co de Phone Number [facility]GI [facility] [place] [address] * Potassium, whole blood (08/05/2024 8:02 AM CDT) Potassium, bld 4.0 3.3 - 4.9 mmol/L Blood 08/05/2024 8:02 AM CDT 08/05/2024 8:16 AM CDT Arabella Gary NP LAB BLOOD ORDERABLES Fi nal Result Performing Organization Address [facility] Co de Phone Number [facility] [place] [address] * Critical Care (08/05/2024 6:15 AM CDT) Malu Iglesias MD - 08/05/2024 6:15 AM CDT Malu [...] plan with the patient's team and other medical/it support consultant staff. This time was in addition [...] in the medical record us Codi Ibanez NP IN CLINIC/BEDSIDE ORDERABLES Fin al Result [...] plan with the patient's team and other medical/it support consultant staff. This time was in addition [...] carlos POC 43 40 - 50 mmHg [facility] pO2, carlos POC 41 mmHg [facility] Na, POC 136 135 - 145 mmol/L [facility] K POC 4.0 3.3 - 4.9 mmol/L [facility] Comment: Interpretive Data Not all point of care methods assess for hemolysis. Confirm with instrument and retest K+ if not consistent with clinical signs and symptoms. Current Interpretive Data was last revised on 2023. Cl, POC 104 97 - 110 mmol/L [facility] Ionized Ca, POC 4.62 4.50 - 5.10 mg/dL [facility] Glucose, POC 128 70 - 199 mg/dL [facility] Lactate, POC 1.1 0.7 - 2.0 mmol/L [facility] O2 Sat, Carlos POC (Vivian) 61 % [facility] excess, POC 4.6 mmol/L [facility] HCO3, Carlos POC 29 20 - 30 mmol/L [facility] Hct, POC 29.0(L) 41.4 - 51.6 % [facility] Total Hb, POC 9.5(L) 13.8 - 17.2 g/dL [facility] Blood 08/04/2024 9:41 PM CDT 08/04/2024 9:41 PM CDT Nick Veliz MD LAB POCT ORDERABLES - DE VICE Final Result Performing Organization Address [facility]/ZIP Co de Phone Number [facility] [place] [address] * (ABNORMAL) CBC without differential (08/04/2024 9:18 PM CDT) [facility] WBC 9.65 3.80 - 9.90 K/cumm Hgb 8.4(L) 13.0 - 17.5 g/dL [facility] Hct 25.2(L) 38.9 - 50.3 % [facility] Plt 120(L) 150 - 400 K/cumm [facility] MPV 11.8 9.1 - 12.3 fL [facility] RBC 2.49(L) 4.30 - 5.80 M/cumm [facility] MCV 101.2(H) 81.3 - 96.4 fL [facility] MCH 33.7(H) 27.1 - 33.3 pg [facility] MCHC 33.3 32.3 - 35.7 g/dL [facility] RDW CV 14.6 11.1 - 14.9 % [facility] RDW SD 54.1(H) 35.7 - 48.1 fL [facility] NRBC abs 0.00 0.00 - 0.01 K/cumm [facility] Blood 08/04/2024 9:18 PM CDT 08/04/2024 9:38 PM CDT Fermin ANDERSEN LAB BLOOD ORDERABLES Teetee l Result [facility] [place] [address] * eGFR (08/04/2024 8:52 PM CDT) eGFR [...] CDT 08/04/2024 9:04 PM CDT Marilee Sandoval NP LAB BLOOD ORDERABLES [facility] al Result Performing Organization Address City/[facility]/ZIP Co de Phone Number [facility] [place] [address] * Type and screen (08/04/2024 8:52 PM CDT) ABO Rh A Positive Kumar, indirect Negative [facility] Blood 08/04/2024 8:52 PM CDT 08/04/2024 9:19 PM CDT Narrative [facility] - 08/04/2024 10:26 PM CDT Has the patient had Daratumumab or Isatuximab in the past 6 months?->Unknown Fermin ANDERSEN LAB BLOOD BANK TEST ORDER VAHID Final Result Performing Organization Address [facility] Co de Phone Number [facility] [place] [address] * Phosphorus (08/04/2024 8:52 PM CDT) [facility] Phosphorus, pl 2.4 2.3 - 4.5 mg/dL Blood 08/04/2024 8:52 PM CDT 08/04/2024 9:04 PM CDT Selvin Domínguez RN RESIDENTIAL LAB BLOOD ORDERABLES Teetee l Result Performing Organization Address [facility] Co de Phone Number [facility] [place] [address] * Magnesium (08/04/2024 8:52 PM CDT) [facility] Magnesium 1.8 1.4 - 2.5 mg/dL Blood 08/04/2024 8:52 PM CDT 08/04/2024 9:04 PM CDT Selvin Domínguez RN RESIDENTIAL LAB BLOOD ORDERABLES Teetee l Result Performing Organization Address [facility] Co de Phone Number [facility] [place] [address] * (ABNORMAL) Hepatic function panel (08/04/2024 8:52 PM CDT) [facility] Bilirubin, total 0.8 0.1 - 1.2 mg/dL Bilirubin, direct 0.3 0.1 - 0.3 mg/dL [facility] Protein, pl 6.1(L) 6.5 - 8.5 g/dL [facility] Albumin 3.1(L) 3.5 - 5.0 g/dL [facility] Alk phos 54 40 - 130 Units/L [facility] ALT 29 7 - 55 Units/L [facility] AST 49 10 - 50 Units/L [facility] Blood 08/04/2024 8:52 PM CDT 08/04/2024 9:04 PM CDT Marilee Sandoval RN RESIDENTIAL LAB BLOOD ORDERABLES Fin al Result Performing Organization Address City/[facility] Co de Phone Number [facility] Department [place] [address] * (ABNORMAL) Basic metabolic panel (08/04/2024 8:52 PM CDT) [facility] Sodium 137 135 - 145 mmol/L Potassium, pl 4.1 3.3 - 4.9 mmol/L [facility] Chloride 101 97 - 110 mmol/L [facility] CO2 28 22 - 32 mmol/L [facility] Anion gap 8 2 - 15 mmol/L [facility] BUN 22 6 - 25 mg/dL [facility] Creatinine 0.91 0.80 - 1.30 mg/dL [facility] Glucose 147 70 - 199 mg/dL [facility] Comment: Interpretive Data Fasting glucose [...] 2022. Calcium 7.9(L) 8.5 - 10.3 mg/dL [facility] Blood 08/04/2024 8:52 PM CDT 08/04/2024 9:04 PM CDT Marilee Sandoval RN RESIDENTIAL LAB BLOOD ORDERABLES Fin al Result Performing Organization Address [facility] Co de Phone Number [facility] [place] [address] * XR Chest 1 View - in PM (08/04/2024 7:50 PM CDT) Anatomical Region Laterality Modality Body, Chest N/A Computed Radiogr aphy 08/05/2024 12:0 0 PM CDT Impressions 08/05/2024 12:00 PM CDT Comparison 08/03/2024 at 7:19 PM. Median sternotomy wires are aligned and intact. Left atrial appendage clip again seen. Aortic valve replacement again noted. Elmo-Clair catheter has been removed. New left peripherally [...] again seen. Aortic valve replacement again noted. Elmo-Clair catheter has been removed. New left peripherally inserted central venous catheter seen with tip near the superior cavoatrial junction. Bilateral chest tubes have been removed. Moderate size posterior layering pleural effusions with underlying atelectasis again noted, left greater than right. Mild pulmonary edema may be present. No pneumothorax seen. Cardiomediastinal silhouette stable. Electronically signed by: Jose David Daly M.D. Marilee Sandoval RN RESIDENTIAL IMG XR PROCEDURES Final Result * TRANSTHORACIC ECHO (TTE) LIMITED/FOLLOW UP W LTD DOPPLER/CF W CONTRAST (08/04/2024 12:01 PM CDT) Anatomical Region Laterality Modality Ultrasound 08/04/2024 11:1 8 AM CDT Narrative 08/04/2024 1:23 PM CDT [facility] [place] [address] Transthoracic Echocardiographic Report Patient Name: SHEY SHAH C : 1950 (73y 11m) Gender: M Study Date: 08/04/2024 11:18:36 AM Ht(Inch): 73 Wt(Lb): 216.05 BSA: 2.25 [employer] Engineer: Sandra Medina RDCSENCOMPASS HEALTH RE[facility] NITTANY VALLEYAugusto Location: [id number] Order Provider: MARILEE SANDOVAL Heart Rate: 80 [...] Procedure Note Yash Palmer MD - 08/04/2024 [facility] [place] [address] Transthoracic Echocardiographic Report Patient Name: SHEY SHAH C : 1950 (73y 11m) Gender: M Study Date: 08/04/2024 11:18:36 AM Ht(Inch): 73 Wt(Lb): 216.05 BSA: 2.25 [employer] Engineer: Sandra Medina RDCSACOMA[facility] Location: [id number] OrderProvider: MARILEE SANDOVAL Heart Rate: 80 BMI: [...] PM CDT Wall Motion Analysis - Resting us Marilee Sandoval NP CV ECHO PROCEDURES Final Result * Potassium, whole blood (08/04/2024 7:43 AM CDT) Potassium, bld 3.6 3.3 - 4.9 mmol/L Blood 08/04/2024 7:43 AM CDT 08/04/2024 7:55 AM CDT us Codi Ibanez RN RESIDENTIAL LAB BLOOD ORDERABLES Final Resul t MARGI [facility] [place] [address] * Critical Care (08/04/2024 6:49 AM CDT) Narrative de Wet, Charl Anderson, MD - 08/04/2024 6:49 AM CDT Malu [...] plan with the ICU team and other medical/it support consultant staff, making frequent assessments and decisions [...] documenting in the medical record Codi Ibanez NP IN CLINIC/BEDSIDE ORDERABLES Fin al Result * Oxyhemoglobin, pulmonary artery (08/04/2024 12:01 AM CDT) Oxyhemoglobin, PA 61.6 % Comment: Interpretive Data No reference range established. Current interpretive data was last revised 2019. Blood 08/04/2024 12:0 1 AM CDT 08/04/2024 12:20 AM CDT us Selvin Domínguez RN RESIDENTIAL LAB BLOOD ORDERABLES Teetee inna Result MARGI [facility] One [facility] [place] [address] * Potassium, whole blood (08/04/2024 12:01 AM CDT) Potassium, bld 3.8 3.3 - 4.9 mmol/L Blood 08/04/2024 12:0 1 AM CDT 08/04/2024 12:21 AM CDT us Arabella Ida Gary RN RESIDENTIAL LAB BLOOD ORDERABLES Fi nal Result Performing Organization Address [facility] Co de Phone Number [facility] [place] [address] * eGFR (08/04/2024 12:01 AM CDT) eGFR [...] 08/04/2024 12:18 AM CDT us Marilee Sandoval RN RESIDENTIAL LAB BLOOD ORDERABLES Fin al Result Performing Organization Address City/[facility]/ZIP Co de Phone Number MARGI [facility] [place] [address] * Lactate, whole blood (08/04/2024 12:01 AM CDT) [facility] Lactate, bld 0.9 0.7 - 2.0 mmol/L Blood 08/04/2024 12:0 1 AM CDT 08/04/2024 12:21 AM CDT Marilee Sandoval RN RESIDENTIAL LAB BLOOD ORDERABLES Fin al Result Performing Organization Address [facility] de Phone Number [facility] [place] [address] * (ABNORMAL) CBC without differential (08/04/2024 12:01 AM CDT) [facility] WBC 8.80 3.80 - 9.90 K/cumm Hgb 8.0(L) 13.0 - 17.5 g/dL [facility] Hct 24.3(L) 38.9 - 50.3 % [facility] Plt 95(L) 150 - 400 K/cumm [facility] MPV 11.7 9.1 - 12.3 fL [facility] RBC 2.40(L) 4.30 - 5.80 M/cumm [facility] MCV 101.3(H) 81.3 - 96.4 fL [facility] MCH 33.3 27.1 - 33.3 pg [facility] MCHC 32.9 32.3 - 35.7 g/dL [facility] RDW CV 14.8 11.1 - 14.9 % [facility] RDW SD 55.1(H) 35.7 - 48.1 fL [facility] NRBC abs 0.00 0.00 - 0.01 K/cumm [facility] Blood 08/04/2024 12:0 1 AM CDT 08/04/2024 12:19 AM CDT Marilee Sandoval RN RESIDENTIAL LAB BLOOD ORDERABLES Fin al Result Performing Organization Address [facility] Co de Phone Number [facility] [place] [address] * Phosphorus (08/04/2024 12:01 AM CDT) Pathologist [facility] Phosphorus, pl 3.0 2.3 - 4.5 mg/dL Blood 08/04/2024 12:0 1 AM CDT 08/04/2024 12:18 AM CDT Selvin Domínguez RN RESIDENTIAL LAB BLOOD ORDERABLES Teetee l Result Performing Organization Address City/[facility]/ZIP Co de Phone Number [facility] [place] [address] * Magnesium (08/04/2024 12:01 AM CDT) [facility] Magnesium 1.9 1.4 - 2.5 mg/dL Blood 08/04/2024 12:0 1 AM CDT 08/04/2024 12:18 AM CDT Selvin Domínguez RN RESIDENTIAL LAB BLOOD ORDERABLES Teetee l Result Performing Organization Address [facility] de Phone Number [facility] [place] [address] * (ABNORMAL) Blood gas, arterial (08/04/2024 12:01 AM CDT) Pathologist [facility] pH, Art 7.46(H) 7.35 - 7.45 PCO2, Arterial 36 35 - 45 mmHg [facility] PO2, Arterial 142(H) 83 - 108 mmHg [facility] HCO3 Art (Calculated) 26 20 - 30 mmol/L [facility] BE, art 2 mmol/L [facility] Comment: Interpretive Data No Reference Range Established Current Interpretive Data was last revised on 2017 O2 Sat Art (Measured) 99(H) 90 - 95 % [facility] Blood 08/04/2024 12:0 1 AM CDT 08/04/2024 12:21 AM CDT Selvin Domínguez RN RESIDENTIAL LAB BLOOD ORDERABLES Teetee l Result Performing Organization Address [facility]/ZIP Co de Phone Number [facility] [place] [address] * Creatine kinase (CK), total (08/04/2024 12:01 AM CDT) Pathologist [facility] CK 60 40 - 300 Units/L Blood 08/04/2024 12:0 1 AM CDT 08/04/2024 12:18 AM CDT Nick Veliz MD LAB BLOOD ORDERABLES Fin al Result Performing Organization Address [facility] Co de Phone Number [facility] [place] [address] * (ABNORMAL) Hepatic function panel (08/04/2024 12:01 AM CDT) [facility] Bilirubin, total 0.8 0.1 - 1.2 mg/dL Bilirubin, direct 0.4(H) 0.1 - 0.3 mg/dL [facility] Protein, pl 5.8(L) 6.5 - 8.5 g/dL [facility] Albumin 2.8(L) 3.5 - 5.0 g/dL [facility] Alk phos 51 40 - 130 Units/L [facility] ALT 20 7 - 55 Units/L [facility] AST 38 10 - 50 Units/L [facility] Blood 08/04/2024 12:0 1 AM CDT 08/04/2024 12:18 AM CDT Marilee Sandoval RN RESIDENTIAL LAB BLOOD ORDERABLES Fin al Result Performing Organization Address [facility] Co de Phone Number [facility] [place] [address] * (ABNORMAL) Basic metabolic panel (08/04/2024 12:01 AM CDT) [facility] Sodium 137 135 - 145 mmol/L Potassium, pl 4.0 3.3 - 4.9 mmol/L [facility] Chloride 103 97 - 110 mmol/L [facility] CO2 26 22 - 32 mmol/L [facility] Anion gap 8 2 - 15 mmol/L [facility] BUN 25 6 - 25 mg/dL [facility] Creatinine 0.93 0.80 - 1.30 mg/dL [facility] Glucose 117 70 - 199 mg/dL [facility] Comment: Interpretive Data Fasting glucose [...] 2022. Calcium 8.4(L) 8.5 - 10.3 mg/dL [facility] Blood 08/04/2024 12:0 1 AM CDT 08/04/2024 12:18 AM CDT Marilee Sandoval NP LAB BLOOD ORDERABLES Fin al Result [facility] [place] [address] * XR Chest 1 View - in PM (08/03/2024 7:21 PM CDT) Anatomical Region Laterality Modality Body, Chest N/A Digital Radiogra phy 08/04/2024 10:1 3 AM CDT Impressions 08/04/2024 10:13 AM CDT Comparison with 08/02/2024. The posterior layering pleural effusions pulmonary edema stable. There is no pneumothorax. Elmo-Clair catheter projects over the main pulmonary artery. [...] pulmonary edema stable. There is no pneumothorax. Elmo-Clair catheter projects over the main pulmonary artery. Impala type device is been removed. Sternal wires midline and nondisplaced. Bioprosthetic aortic valve unchanged. Electronically signed by: Jeremias Howard M.D., MPH us Marilee Sandoval RN RESIDENTIAL IMG XR PROCEDURES Final Result * Critical [...] plan with the ICU team and other medical/it support consultant staff, making frequent assessments and decisions [...] documenting in the medical record us [facility] RN RESIDENTIAL IN CLINIC/BEDSIDE ORDERABLES F inal Result * Oxyhemoglobin, pulmonary artery (08/03/2024 6:06 PM CDT) Oxyhemoglobin, PA 55.7 % Comment: Interpretive Data No reference range established. Current interpretive data was last revised 2019. Blood 08/03/2024 6:06 PM CDT 08/03/2024 6:25 PM CDT Selvin Domínguez RN RESIDENTIAL LAB BLOOD ORDERABLES Teetee l Result [facility] [place] [address] * Blood culture Blood (08/03/2024 5:27 PM CDT) Report Final Report: No growth Blood 08/03/2024 5:27 PM CDT 08/03/2024 5:31 PM CDT Narrative [facility] - 08/08/2024 7:00 AM CDT [...] performance characteristics have been verified by the [facility] Microbiology Laboratory. For questions about this culture, contact the Microbiology Laboratory at [phone]. Interpretive data was last revised on 24. Marilee Sandoval NP LAB MICROBIOLOGY - GENER AL ORDERABLES Final Result Performing Organization Address City/[facility] Co de Phone Number MARGI SANTA [facility] [place] [address] * Blood culture Blood (08/03/2024 5:27 PM CDT) Report Final Report: No growth Blood 08/03/2024 5:27 PM CDT 08/03/2024 5:31 PM CDT Narrative MARGI [facility] - 08/08/2024 7:00 AM CDT Collection->Peripheral 1. [...] performance characteristics have been verified by the [facility] Microbiology Laboratory. For questions about this culture, contact the Microbiology Laboratory at [phone]. Interpretive data was last revised on 24. Marilee Sandoval NP LAB MICROBIOLOGY - GENER AL ORDERABLES Final Result Performing Organization Address [facility] Co de Phone Number MARGI [facility] Department [place] [address] * Potassium, whole blood (08/03/2024 8:36 AM CDT) Potassium, bld 3.8 3.3 - 4.9 mmol/L Blood 08/03/2024 8:36 AM CDT 08/03/2024 8:42 AM CDT us Arabella Gary NP LAB BLOOD ORDERABLES Fi nal Result CEREMELIA [facility] [place] [address] * Critical Care (08/03/2024 6:55 AM CDT) [...] plan with the ICU team and other medical/it support consultant staff, making frequent assessments and decisions [...] and the medical staff us Marilee Sandoval RN RESIDENTIAL IN CLINIC/BEDSIDE ORDERA BLES Final Result * Oxyhemoglobin, central venous (08/03/2024 12:10 AM CDT) Oxyhemoglobin, CV 60.8 % Comment: Interpretive Data No reference range established. Current interpretive data was last revised 2019. Blood 08/03/2024 12:1 0 AM CDT 08/03/2024 12:26 AM CDT us Marilee Sandoval RN RESIDENTIAL LAB BLOOD ORDERABLES Fin al Result Performing Organization Address [facility] Co de Phone Number [facility] [place] [address] * Oxyhemoglobin, pulmonary artery (08/03/2024 12:10 AM CDT) Oxyhemoglobin, PA 62.4 % Comment: Interpretive Data No reference range established. Current interpretive data was last revised 2019. Blood 08/03/2024 12:1 0 AM CDT 08/03/2024 12:26 AM CDT us Selvin Domínguez RN RESIDENTIAL LAB BLOOD ORDERABLES Teetee l Result Performing Organization Address [facility] [place] [address] * (ABNORMAL) Hemoglobin total, pulmonary artery (08/03/2024 12:10 AM CDT) Hemoglobin total, PA 9.0(L) 13.0 - 17.5 g/dL Blood 08/03/2024 12:1 0 AM CDT 08/03/2024 12:26 AM CDT us Arabella Gary RN RESIDENTIAL LAB BLOOD ORDERABLES Fi nal Result Performing Organization Address [facility] Co de Phone Number [facility] [place] [address] * Lactate (08/03/2024 12:10 AM CDT) Pathologist [facility] Lactate 0.9 0.7 - 2.0 mmol/L Blood 08/03/2024 12:1 0 AM CDT 08/03/2024 12:30 AM CDT Marilee Sandoval RN RESIDENTIAL LAB BLOOD ORDERABLES Fin al Result Performing Organization Address City/[facility] Co de Phone Number [facility] Department [place] [address] * Hemoglobin, plasma (08/03/2024 12:10 AM CDT) Pathologist [facility] Hemoglobin, Plasma <30 <=50 mg/dL Blood 08/03/2024 12:1 0 AM CDT 08/03/2024 12:26 AM CDT Marilee Sandoval RN RESIDENTIAL LAB BLOOD ORDERABLES Fin al Result Performing Organization Address [facility] de Phone Number [facility] [place] [address] * eGFR (08/03/2024 12:10 AM CDT) Pathologist [facility] eGFR 85 >=60 mL/min/1. 73 m2 Comment: [...] ORDERABLES Fin al Result Performing Organization Address City/[facility]/ZIP Co de Phone Number [facility] Department [place] [address] * Heparin anti factor Xa activity (08/03/2024 [...] ORDERABLES Fin al Result Performing Organization Address City/[facility]/ZIP Co de Phone Number [facility] [place] [address] * Lactate, whole blood (08/03/2024 12:10 AM CDT) Lactate, bld 0.9 0.7 - 2.0 mmol/L Blood 08/03/2024 12:1 0 AM CDT 08/03/2024 12:26 AM CDT Nick Veliz MD LAB BLOOD ORDERABLES Fin al Result Performing Organization Address [facility] de Phone Number [facility] Department [place] [address] * aPTT (08/03/2024 12:10 AM CDT) aPTT [...] ORDERABLES Fin al Result Performing Organization Address [facility] de Phone Number [facility] [place] [address] * (ABNORMAL) Protime-INR (08/03/2024 12:10 AM CDT) PT 16.8(H) 9.7 - 13.0 sec INR 1.54(H) 0.90 - 1.20 [facility] Comment: Interpretive data Oral anticoagulant [...] ORDERABLES Fin al Result Performing Organization Address City/[facility] Co de Phone Number [facility] [place] [address] * (ABNORMAL) Fibrinogen (08/03/2024 12:10 AM CDT) Pathologist [facility] Fibrinogen 561(H) 170 - 400 mg/dL Blood 08/03/2024 12:1 0 AM CDT 08/03/2024 12:29 AM CDT Nick Veliz MD LAB BLOOD ORDERABLES Fin al Result Performing Organization Address [facility] de Phone Number [facility] Department [place] [address] * (ABNORMAL) CBC without differential (08/03/2024 12:10 AM CDT) [facility] WBC 9.31 3.80 - 9.90 K/cumm Hgb 8.4(L) 13.0 - 17.5 g/dL [facility] Hct 24.6(L) 38.9 - 50.3 % [facility] Plt 74(L) 150 - 400 K/cumm [facility] MPV 12.0 9.1 - 12.3 fL [facility] RBC 2.47(L) 4.30 - 5.80 M/cumm [facility] MCV 99.6(H) 81.3 - 96.4 fL [facility] MCH 34.0(H) 27.1 - 33.3 pg [facility] MCHC 34.1 32.3 - 35.7 g/dL [facility] RDW CV 15.3(H) 11.1 - 14.9 % [facility] RDW SD 55.7(H) 35.7 - 48.1 fL [facility] NRBC abs 0.00 0.00 - 0.01 K/cumm [facility] Blood 08/03/2024 12:1 0 AM CDT 08/03/2024 12:26 AM CDT us Marilee Sandoval RN RESIDENTIAL LAB BLOOD ORDERABLES Fin al Result Performing Organization Address City/[facility]/ZIP Co de Phone Number [facility] [place] [address] * Phosphorus (08/03/2024 12:10 AM CDT) Pathologist [facility] Phosphorus, pl 3.6 2.3 - 4.5 mg/dL Blood 08/03/2024 12:1 0 AM CDT 08/03/2024 12:30 AM CDT Selvin Domínguez RN RESIDENTIAL LAB BLOOD ORDERABLES Teetee l Result Performing Organization Address City/[facility] Co de Phone Number [facility] [place] [address] * Magnesium (08/03/2024 12:10 AM CDT) [facility] Magnesium 1.8 1.4 - 2.5 mg/dL Blood 08/03/2024 12:1 0 AM CDT 08/03/2024 12:30 AM CDT Selvin Domínguez RN RESIDENTIAL LAB BLOOD ORDERABLES Teetee l Result Performing Organization Address [facility] [place] [address] * (ABNORMAL) Lactate dehydrogenase (LD) (08/03/2024 12:10 AM CDT) Pathologist [facility] Lactate dehydrogenase (LDH) 347(H) 100 - 250 Units/L Blood 08/03/2024 12:1 0 AM CDT 08/03/2024 12:30 AM CDT Marilee Sandoval RN RESIDENTIAL LAB BLOOD ORDERABLES Fin al Result Performing Organization Address [facility] Co de Phone Number [facility] [place] [address] * (ABNORMAL) Blood gas, arterial (08/03/2024 12:10 AM CDT) pH, Art 7.46(H) 7.35 - 7.45 PCO2, Arterial 36 35 - 45 mmHg [facility] PO2, Arterial 130(H) 83 - 108 mmHg [facility] HCO3 Art (Calculated) 26 20 - 30 mmol/L [facility] BE, art 2 mmol/L [facility] Comment: Interpretive Data No Reference Range Established Current Interpretive Data was last revised on 2017 O2 Sat Art (Measured) 99(H) 90 - 95 % [facility] Blood 08/03/2024 12:1 0 AM CDT 08/03/2024 12:26 AM CDT Selvin Domínguez RN RESIDENTIAL LAB BLOOD ORDERABLES Teetee l Result Performing Organization Address [facility] de Phone Number [facility] [place] [address] * Creatine kinase (CK), total (08/03/2024 12:10 AM CDT) Pathologist [facility] CK 97 40 - 300 Units/L Blood 08/03/2024 12:1 0 AM CDT 08/03/2024 12:30 AM CDT Nick Veliz MD LAB BLOOD ORDERABLES Fin al Result Performing Organization Address [facility] Co de Phone Number [facility] [place] [address] * (ABNORMAL) Hepatic function panel (08/03/2024 12:10 AM CDT) Pathologist [facility] Bilirubin, total 0.9 0.1 - 1.2 mg/dL Bilirubin, direct 0.4(H) 0.1 - 0.3 mg/dL [facility] Protein, pl 5.9(L) 6.5 - 8.5 g/dL [facility] Albumin 3.1(L) 3.5 - 5.0 g/dL [facility] Alk phos 50 40 - 130 Units/L [facility] ALT 15 7 - 55 Units/L [facility] AST 41 10 - 50 Units/L [facility] Blood 08/03/2024 12:1 0 AM CDT 08/03/2024 12:30 AM CDT Marilee Sandoval NP LAB BLOOD ORDERABLES Fin al Result [facility] Department [place] [address] * (ABNORMAL) Basic metabolic panel (08/03/2024 12:10 AM CDT) [facility] Sodium 139 135 - 145 mmol/L Potassium, pl 3.8 3.3 - 4.9 mmol/L [facility] Chloride 106 97 - 110 mmol/L [facility] CO2 25 22 - 32 mmol/L [facility] Anion gap 8 2 - 15 mmol/L [facility] BUN 26(H) 6 - 25 mg/dL [facility] Creatinine 0.95 0.80 - 1.30 mg/dL [facility] Glucose 124 70 - 199 mg/dL [facility] Comment: Interpretive Data Fasting glucose [...] 2022. Calcium 9.0 8.5 - 10.3 mg/dL [facility] Blood 08/03/2024 12:1 0 AM CDT 08/03/2024 12:30 AM CDT us Nick Veliz MD LAB BLOOD ORDERABLES Fin al Result [facility] Department [place] [address] * XR Chest 1 View - in [...] by: Jimmy Camacho M.D. us Marilee Sandoval RN RESIDENTIAL IMG XR PROCEDURES Final Result * POCT glucose (08/02/2024 8:15 PM CDT) [facility] Glucose, POC 139 70 - 199 mg/dL Blood 08/02/2024 8:15 PM CDT 08/02/2024 8:15 PM CDT Nick Veliz MD LAB POCT ORDERABLES - DE VICE Final Result [facility] Department [place] [address] * Critical Care (08/02/2024 6:53 PM CDT) [...] plan with the ICU team and other medical/it support consultant staff, making frequent assessments and decisions [...] DE VICE Final Result Performing Organization Address [facility] Co de Phone Number [facility] [place] [address] * Oxyhemoglobin, pulmonary artery (08/02/2024 3:30 PM CDT) Oxyhemoglobin, PA 64.3 % Comment: Interpretive Data No reference range established. Current interpretive data was last revised 2019. Blood 08/02/2024 3:30 PM CDT 08/02/2024 3:34 PM CDT Selvin Domínguez RN RESIDENTIAL LAB BLOOD ORDERABLES Teetee l Result Performing Organization Address [facility] [place] [address] * (ABNORMAL) Hemoglobin total, pulmonary artery (08/02/2024 3:30 PM CDT) Hemoglobin total, PA 8.5(L) 13.0 - 17.5 g/dL Blood 08/02/2024 3:3 0 PM CDT 08/02/2024 3:34 PM CDT Arabella Gary RN RESIDENTIAL LAB BLOOD ORDERABLES Fi nal Result Performing Organization Address [facility] Co de Phone Number [facility] [place] [address] * Potassium, whole blood (08/02/2024 3:30 PM CDT) Pathologist [facility] Potassium, bld 3.9 3.3 - 4.9 mmol/L Blood 08/02/2024 3:30 PM CDT 08/02/2024 3:34 PM CDT us Arabella Ida Gary RN RESIDENTIAL LAB BLOOD ORDERABLES Fi nal Result Performing Organization Address [facility] Co de Phone Number [facility] [place] [address] * eGFR (08/02/2024 3:30 PM CDT) eGFR [...] 08/02/2024 3:40 PM CDT us Marilee Sandoval RN RESIDENTIAL LAB BLOOD ORDERABLES Fin al Result Performing Organization Address [facility] Co de Phone Number [facility] [place] [address] * Heparin anti factor Xa activity (08/02/2024 3:30 PM CDT) Anti Factor Xa <0.10 IUnits/mL Comment: No clot detected in sample - [id number] - 08/02/24, 4:05 PM Interpretive Data Enoxaparin [...] PM CDT 08/02/2024 3:34 PM CDT us Nick Veliz MD LAB BLOOD ORDERABLES Fin al Result Performing Organization Address City/[facility]/ZIP Co de Phone Number [facility] [place] [address] * Lactate, whole blood (08/02/2024 3:30 PM CDT) [facility] Lactate, bld 1.1 0.7 - 2.0 mmol/L Blood 08/02/2024 3:30 PM CDT 08/02/2024 3:34 PM CDT Codi Ibanez NP LAB BLOOD ORDERABLES Final Resul t [facility] [place] [address] * (ABNORMAL) aPTT (08/02/2024 3:30 PM CDT) aPTT 26(L) 28 - 38 sec Comment: Interpretive Data Heparin therapeutic range: 66.0 - 100.0 seconds. Range based on correlation with therapeutic heparin activity range of 0.3 - 0.7 Units/mL. Current interpretive data was last revised on 2023. Blood 08/02/2024 3:30 PM CDT 08/02/2024 3:34 PM CDT Marilee Sandoval RN RESIDENTIAL LAB BLOOD ORDERABLES Fin al Result Performing Organization Address [facility] Co de Phone Number [facility] [place] [address] * (ABNORMAL) Protime-INR (08/02/2024 3:30 PM CDT) Pathologist [facility] PT 17.3(H) 9.7 - 13.0 sec INR 1.59(H) 0.90 - 1.20 [facility] Comment: Interpretive data Oral anticoagulant therapeutic ranges: Venous thromboembolism prophylaxis or treatment: 2.0-3.0 CARDIOLOGY Standard range: 2.0-3.0 High-intensity range: 2.5-3.5 Refer to indication-specific guidelines for appropriate target ranges for prosthetic heart valve replacement. Current interpretive data was last revised on 2019. Blood 08/02/2024 3:30 PM CDT 08/02/2024 3:34 PM CDT Marilee Sandoval NP LAB BLOOD ORDERABLES Fin al Result Performing Organization Address [facility] Co de Phone Number [facility] [place] [address] * (ABNORMAL) CBC without differential (08/02/2024 3:30 PM CDT) WBC 9.51 3.80 - 9.90 K/cumm Hgb 8.4(L) 13.0 - 17.5 g/dL [facility] Hct 24.9(L) 38.9 - 50.3 % [facility] Plt 72(L) 150 - 400 K/cumm [facility] MPV 11.5 9.1 - 12.3 fL [facility] RBC 2.50(L) 4.30 - 5.80 M/cumm [facility] MCV 99.6(H) 81.3 - 96.4 fL [facility] MCH 33.6(H) 27.1 - 33.3 pg [facility] MCHC 33.7 32.3 - 35.7 g/dL [facility] RDW CV 15.5(H) 11.1 - 14.9 % [facility] RDW SD 56.6(H) 35.7 - 48.1 fL [facility] NRBC abs 0.00 0.00 - 0.01 K/cumm [facility] Blood 08/02/2024 3:30 PM CDT 08/02/2024 3:40 PM CDT Codi Iabnez RN RESIDENTIAL LAB BLOOD ORDERABLES Final Resul t Performing Organization Address City/[facility]/ZIP Co de Phone Number [facility] [place] [address] * Type and screen (08/02/2024 3:30 PM CDT) Kumar, indirect Negative ABO Rh A Positive [facility] Blood 08/02/2024 3:30 PM CDT 08/02/2024 3:39 PM CDT Narrative [facility] - 08/02/2024 4:31 PM CDT Has the patient had Daratumumab or Isatuximab in the past 6 months?->Unknown Nick Veliz MD LAB BLOOD BANK TEST ORDE GERBER Final Result [facility] [place] [address] * (ABNORMAL) Blood gas, arterial (08/02/2024 3:30 PM CDT) Pathologist [facility] pH, Art 7.47(H) 7.35 - 7.45 PCO2, Arterial 33(L) 35 - 45 mmHg [facility] PO2, Arterial 142(H) 83 - 108 mmHg [facility] HCO3 Art (Calculated) 24 20 - 30 mmol/L [facility] BE, art 0 mmol/L [facility] Comment: Interpretive Data No Reference Range Established Current Interpretive Data was last revised on 2017 O2 Sat Art (Measured) 100(H) 90 - 95 % [facility] Blood 08/02/2024 3:30 PM CDT 08/02/2024 3:34 PM CDT Selvin Domínguez NP LAB BLOOD ORDERABLES Teetee keith Result [facility] [place] [address] * Basic metabolic panel (08/02/2024 3:30 PM CDT) [facility] Sodium 139 135 - 145 mmol/L Potassium, pl 3.8 3.3 - 4.9 mmol/L [facility] Chloride 104 97 - 110 mmol/L [facility] CO2 26 22 - 32 mmol/L [facility] Anion gap 9 2 - 15 mmol/L [facility] BUN 25 6 - 25 mg/dL [facility] Creatinine 1.03 0.80 - 1.30 mg/dL [facility] Glucose 166 70 - 199 mg/dL [facility] Comment: Interpretive Data Fasting glucose [...] 2022. Calcium 9.1 8.5 - 10.3 mg/dL [facility] Blood 08/02/2024 3:30 PM CDT 08/02/2024 3:40 PM CDT Marilee Sandoval RN RESIDENTIAL LAB BLOOD ORDERABLES Fin al Result [facility] Department [place] [address] * POCT glucose (08/02/2024 3:24 PM CDT) [facility] Signature Glucose, POC 173 70 - 199 mg/dL Blood 08/02/2024 3:24 PM CDT 08/02/2024 3:24 PM CDT Nick Veliz MD LAB POCT ORDERABLES - DE VICE Final Result Performing Organization Address [facility] Co de Phone Number [facility] [place] [address] * TRANSTHORACIC ECHO (TTE) LIMITED/FOLLOW UP W LTD DOPPLER/CF W CONTRAST (08/02/2024 2:23 PM CDT) Anatomical Region Laterality Modality Ultrasound 08/02/2024 1:59 PM CDT Narrative 08/02/2024 4:22 PM CDT [facility] [place] [address] Transthoracic Echocardiographic Report Patient Name: SHEY SHAH C : 1950 (73y 11m) Gender: M Study Date: 08/02/2024 01:59:15 PM Ht(Inch): 73 Wt(Lb): 216.05 BSA: 2.25 [employer] Engineer: REBECCA Diane Location: [id number] Order Provider: JORDY KAMARA Heart Rate: 90 [...] Procedure Note Cecilia Hair MD - 08/02/2024 [facility] [place] [address] Transthoracic Echocardiographic Report Patient Name: SHEY SHAH C : 1950 (73y 11m) Gender: M Study Date: 08/02/2024 01:59:15 PM Ht(Inch): 73 Wt(Lb): 216.05 BSA: 2.25 [employer] Plant Engineer: Leyla North [facility] Location: [id number] Order Provider:JORDY KAMARA Heart Rate: 90 BMI: [...] CDT 08/02/2024 8:44 AM CDT Selvin Domínguez RN RESIDENTIAL LAB BLOOD ORDERABLES Teetee l Result [facility] Department [place] [address] * (ABNORMAL) Hemoglobin total, pulmonary artery (08/02/2024 8:43 AM CDT) Pathologist [facility] Hemoglobin total, PA 8.9(L) 13.0 - 17.5 g/dL Blood 08/02/2024 8:43 AM CDT 08/02/2024 8:44 AM CDT Arabella Gary RN RESIDENTIAL LAB BLOOD ORDERABLES Fi nal Result [facility] Department [place] [address] * Lactate (08/02/2024 8:43 AM CDT) Lactate 1.3 0.7 - 2.0 mmol/L Blood 08/02/2024 8:43 AM CDT 08/02/2024 8:44 AM CDT Selvin Domínguez RN RESIDENTIAL LAB BLOOD ORDERABLES Teetee l Result Performing Organization Address [facility] Co de Phone Number [facility] [place] [address] * Calcium, ionized (08/02/2024 8:43 AM CDT) Calcium, Ionized 4.92 4.50 - 5.10 mg/dL Blood 08/02/2024 8:43 AM CDT 08/02/2024 8:44 AM CDT Nick Veliz MD LAB BLOOD ORDERABLES Fin al Result Performing Organization Address [facility] de Phone Number [facility] [place] [address] * (ABNORMAL) Blood gas, arterial (08/02/2024 8:43 AM CDT) pH, Art 7.47(H) 7.35 - 7.45 PCO2, Arterial 30(L) 35 - 45 mmHg [facility] PO2, Arterial 93 83 - 108 mmHg [facility] HCO3 Art (Calculated) 22 20 - 30 mmol/L [facility] BE, art -2 mmol/L [facility] Comment: Interpretive Data No Reference Range Established Current Interpretive Data was last revised on 2017 O2 Sat Art (Measured) 98(H) 90 - 95 % [facility] Blood 08/02/2024 8:43 AM CDT 08/02/2024 8:44 AM CDT Selvin Domínguez RN RESIDENTIAL LAB BLOOD ORDERABLES Teetee l Result Performing Organization Address [facility] Co de Phone Number [facility] [place] [address] * POCT glucose (08/02/2024 8:32 AM CDT) Glucose, POC 131 70 - 199 mg/dL Blood 08/02/2024 8:32 AM CDT 08/02/2024 8:32 AM CDT Nick Veliz MD LAB POCT ORDERABLES - DE VICE Final Result Performing Organization Address City/State/[facility] Co de Phone Number [facility] [place] [address] * Critical Care (08/02/2024 6:55 AM CDT) [...] plan with the ICU team and other medical/it support consultant staff, making frequent assessments and decisions [...] in the medical record us Codi Ibanez NP IN CLINIC/BEDSIDE ORDERABLES Fin al Result * Oxyhemoglobin, pulmonary artery (08/02/2024 4:06 AM CDT) Oxyhemoglobin, PA 54.3 % Comment: Interpretive Data No reference range established. Current interpretive data was last revised 2019. Blood 08/02/2024 4:06 AM CDT 08/02/2024 4:10 AM CDT Selvin Domínguez RN RESIDENTIAL LAB BLOOD ORDERABLES Teetee l Result Performing Organization Address City/[facility] Co de Phone Number [facility] [place] [address] * (ABNORMAL) Hemoglobin total, pulmonary artery (08/02/2024 4:06 AM CDT) Hemoglobin total, PA 8.5(L) 13.0 - 17.5 g/dL Blood 08/02/2024 4:06 AM CDT 08/02/2024 4:10 AM CDT Result [facility] Arabella Gary RN RESIDENTIAL LAB BLOOD ORDERABLES Fi nal Result Performing Organization Address [facility] Co de Phone Number [facility] [place] [address] * (ABNORMAL) Blood gas, arterial (08/02/2024 4:06 AM CDT) pH, Art 7.48(H) 7.35 - 7.45 PCO2, Arterial 31(L) 35 - 45 mmHg [facility] PO2, Arterial 97 83 - 108 mmHg [facility] HCO3 Art (Calculated) 23 20 - 30 mmol/L [facility] BE, art 0 mmol/L [facility] Comment: Interpretive Data No Reference Range Established Current Interpretive Data was last revised on 2017 O2 Sat Art (Measured) 98(H) 90 - 95 % [facility] Blood 08/02/2024 4:06 AM CDT 08/02/2024 4:10 AM CDT Selvin Domínguez RN RESIDENTIAL LAB BLOOD ORDERABLES Teetee l Result Performing Organization Address City/[facility] Co de Phone Number [facility] [place] [address] * POCT glucose (08/02/2024 4:04 AM CDT) Glucose, POC 142 70 - 199 mg/dL Blood 08/02/2024 4:04 AM CDT 08/02/2024 4:04 AM CDT Nick Veliz MD LAB POCT ORDERABLES - DE VICE Final Result Performing Organization Address [facility] Co de Phone Number [facility] Department [place] [address] * Lactate (08/02/2024 12:47 AM CDT) Lactate 1.0 0.7 - 2.0 mmol/L Blood 08/02/2024 12:4 7 AM CDT 08/02/2024 12:57 AM CDT Marilee Sandoval NP LAB BLOOD ORDERABLES Fin al Result Performing Organization Address [facility] Co de Phone Number [facility] Department [place] [address] * eGFR (08/02/2024 12:47 AM CDT) eGFR [...] LAB BLOOD ORDERABLES Fin al Result [facility] [place] [address] * Heparin anti factor Xa activity (08/02/2024 [...] 7 AM CDT 08/02/2024 12:49 AM CDT us Marilee Sandoval RN RESIDENTIAL LAB BLOOD ORDERABLES Fin al Result Performing Organization Address [facility] de Phone Number [facility] [place] [address] * aPTT (08/02/2024 12:47 AM CDT) aPTT 30 28 - 38 sec Comment: Interpretive Data Heparin therapeutic range: 66.0 - 100.0 seconds. Range based on correlation with therapeutic heparin activity range of 0.3 - 0.7 Units/mL. Current interpretive data was last revised on 2023. Blood 08/02/2024 12:4 7 AM CDT 08/02/2024 12:48 AM CDT Marilee Sandoval RN RESIDENTIAL LAB BLOOD ORDERABLES Fin al Result Performing Organization Address [facility] de Phone Number [facility] [place] [address] * (ABNORMAL) Protime-INR (08/02/2024 12:47 AM CDT) PT 15.2(H) 9.7 - 13.0 sec INR 1.40(H) 0.90 - 1.20 [facility] Comment: Interpretive data Oral anticoagulant therapeutic ranges: Venous thromboembolism prophylaxis or treatment: 2.0-3.0 CARDIOLOGY Standard range: 2.0-3.0 High-intensity range: 2.5-3.5 Refer to indication-specific guidelines for appropriate target ranges for prosthetic heart valve replacement. Current interpretive data was last revised on 2019. Blood 08/02/2024 12:4 7 AM CDT 08/02/2024 12:48 AM CDT Marilee Sandoval RN RESIDENTIAL LAB BLOOD ORDERABLES Fin al Result Performing Organization Address [facility] Co de Phone Number [facility] [place] [address] * (ABNORMAL) Fibrinogen (08/02/2024 12:47 AM CDT) Pathologist [facility] Fibrinogen 487(H) 170 - 400 mg/dL Blood 08/02/2024 12:4 7 AM CDT 08/02/2024 12:48 AM CDT Nick Veliz MD LAB BLOOD ORDERABLES Fin al Result Performing Organization Address City/[facility] Co de Phone Number [facility] [place] [address] * Phosphorus (08/02/2024 12:47 AM CDT) Pathologist [facility] Phosphorus, pl 3.6 2.3 - 4.5 mg/dL Blood 08/02/2024 12:4 7 AM CDT 08/02/2024 12:56 AM CDT Selvin Domínguez RN RESIDENTIAL LAB BLOOD ORDERABLES Teetee l Result Performing Organization Address [facility] de Phone Number [facility] [place] [address] * Magnesium (08/02/2024 12:47 AM CDT) [facility] Magnesium 2.1 1.4 - 2.5 mg/dL Blood 08/02/2024 12:4 7 AM CDT 08/02/2024 12:56 AM CDT Selvin Domínguez RN RESIDENTIAL LAB BLOOD ORDERABLES Teetee l Result Performing Organization Address [facility] Co de Phone Number [facility] [place] [address] * (ABNORMAL) Lactate dehydrogenase (LD) (08/02/2024 12:47 AM CDT) [facility] Lactate dehydrogenase (LDH) 410(H) 100 - 250 Units/L Blood 08/02/2024 12:4 7 AM CDT 08/02/2024 12:56 AM CDT Marilee Sandoval RN RESIDENTIAL LAB BLOOD ORDERABLES Fin al Result Performing Organization Address City/[facility] Co de Phone Number [facility] Department [place] [address] * Creatine kinase (CK), total (08/02/2024 12:47 AM CDT) CK 164 40 - 300 Units/L Blood 08/02/2024 12:4 7 AM CDT 08/02/2024 12:56 AM CDT Result [facility] Nick Veliz MD LAB BLOOD ORDERABLES Fin al Result Performing Organization Address [facility] de Phone Number [facility] Department [place] [address] * (ABNORMAL) Hepatic function panel (08/02/2024 12:47 AM CDT) Bilirubin, total 1.1 0.1 - 1.2 mg/dL Bilirubin, direct 0.5(H) 0.1 - 0.3 mg/dL [facility] Protein, pl 5.9(L) 6.5 - 8.5 g/dL [facility] Albumin 3.5 3.5 - 5.0 g/dL [facility] Alk phos 50 40 - 130 Units/L [facility] ALT 10 7 - 55 Units/L [facility] AST 44 10 - 50 Units/L [facility] Blood 08/02/2024 12:4 7 AM CDT 08/02/2024 12:56 AM CDT Marilee Sandoval RN RESIDENTIAL LAB BLOOD ORDERABLES Fin al Result Performing Organization Address [facility] de Phone Number [facility] Department [place] [address] * Basic metabolic panel (08/02/2024 12:47 AM CDT) Sodium 140 135 - 145 mmol/L Potassium, pl 4.4 3.3 - 4.9 mmol/L [facility] Chloride 106 97 - 110 mmol/L [facility] CO2 24 22 - 32 mmol/L [facility] Anion gap 10 2 - 15 mmol/L [facility] BUN 23 6 - 25 mg/dL [facility] Creatinine 1.02 0.80 - 1.30 mg/dL [facility] Glucose 141 70 - 199 mg/dL [facility] Comment: Interpretive Data Fasting glucose [...] 2022. Calcium 8.8 8.5 - 10.3 mg/dL [facility] Blood 08/02/2024 12:4 7 AM CDT 08/02/2024 12:56 AM CDT Marilee Sandoval NP LAB BLOOD ORDERABLES Fin al Result [facility] Department [place] [address] * Oxyhemoglobin, central venous (08/02/2024 12:23 AM CDT) Oxyhemoglobin, CV 67.9 % Comment: Interpretive Data No reference range established. Current interpretive data was last revised 2019. Blood 08/02/2024 12:2 3 AM CDT 08/02/2024 12:45 AM CDT Marilee Sandoval RN RESIDENTIAL LAB BLOOD ORDERABLES Fin al Result Performing Organization Address [facility] de Phone Number [facility] [place] [address] * Oxyhemoglobin, pulmonary artery (08/02/2024 12:23 AM CDT) Oxyhemoglobin, PA 60.7 % Comment: Interpretive Data No reference range established. Current interpretive data was last revised 2019. Blood 08/02/2024 12:2 3 AM CDT 08/02/2024 12:45 AM CDT Marilee Sandoval RN RESIDENTIAL LAB BLOOD ORDERABLES Fin al Result Performing Organization Address [facility] de Phone Number [facility] [place] [address] * Hemoglobin, plasma (08/02/2024 12:23 AM CDT) Pathologist [facility] Hemoglobin, Plasma <30 <=50 mg/dL Blood 08/02/2024 12:2 3 AM CDT 08/02/2024 12:45 AM CDT Marilee Sandoval RN RESIDENTIAL LAB BLOOD ORDERABLES Fin al Result Performing Organization Address [facility] de Phone Number [facility] [place] [address] * Lactate, whole blood (08/02/2024 12:23 AM CDT) Pathologist [facility] Lactate, bld 0.8 0.7 - 2.0 mmol/L Blood 08/02/2024 12:2 3 AM CDT 08/02/2024 12:45 AM CDT Marilee Sandoval RN RESIDENTIAL LAB BLOOD ORDERABLES Fin al Result [facility] Department [place] [address] * (ABNORMAL) CBC without differential (08/02/2024 12:23 AM CDT) WBC 10.76(H) 3.80 - 9.90 K/cumm Hgb 8.4(L) 13.0 - 17.5 g/dL [facility] Hct 24.5(L) 38.9 - 50.3 % [facility] Plt 72(L) 150 - 400 K/cumm [facility] MPV 11.8 9.1 - 12.3 fL [facility] RBC 2.47(L) 4.30 - 5.80 M/cumm [facility] MCV 99.2(H) 81.3 - 96.4 fL [facility] MCH 34.0(H) 27.1 - 33.3 pg [facility] MCHC 34.3 32.3 - 35.7 g/dL [facility] RDW CV 16.1(H) 11.1 - 14.9 % [facility] RDW SD 59.5(H) 35.7 - 48.1 fL [facility] NRBC abs 0.00 0.00 - 0.01 K/cumm [facility] Blood 08/02/2024 12:2 3 AM CDT 08/02/2024 12:44 AM CDT Marilee Sandoval RN RESIDENTIAL LAB BLOOD ORDERABLES Fin al Result [facility] Department [place] [address] * (ABNORMAL) Blood gas, arterial (08/02/2024 12:23 AM CDT) pH, Art 7.43 7.35 - 7.45 PCO2, Arterial 34(L) 35 - 45 mmHg [facility] PO2, Arterial 92 83 - 108 mmHg [facility] HCO3 Art (Calculated) 23 20 - 30 mmol/L [facility] BE, art -2 mmol/L [facility] Comment: Interpretive Data No Reference Range Established Current Interpretive Data was last revised on 2017 O2 Sat Art (Measured) 98(H) 90 - 95 % [facility] Blood 08/02/2024 12:2 3 AM CDT 08/02/2024 12:45 AM CDT us Selvin Domínguez NP LAB BLOOD ORDERABLES Teetee l Result [facility] [place] [address] * XR Chest 1 View - in PM (08/01/2024 9:27 PM CDT) Anatomical Region Laterality Modality Body, Chest N/A Digital Radiogra phy 08/02/2024 7:33 AM CDT Impressions 08/02/2024 8:42 AM CDT The current study is compared with the prior radiograph dated 07/31/2024 Patient has been extubated. Gastric tube has been removed. An Impella device is in place. Right internal jugular approach Elmo-Clair catheter overlies the right main pulmonary artery, [...] is in place. Right internal jugular approach Elmo-Clair catheter overlies the right main pulmonary artery, [...] by: Edson Sepulveda M.D. us Marilee Sandoval RN RESIDENTIAL IMG XR PROCEDURES Final Result * Oxyhemoglobin, pulmonary artery (08/01/2024 8:34 PM CDT) Oxyhemoglobin, PA 56.5 % Comment: Interpretive Data No reference range established. Current interpretive data was last revised 2019. Blood 08/01/2024 8:34 PM CDT 08/01/2024 8:38 PM CDT us Selvin Domínguez RN RESIDENTIAL LAB BLOOD ORDERABLES Teetee l Result [facility] [place] [address] * (ABNORMAL) Hemoglobin total, pulmonary artery (08/01/2024 8:34 PM CDT) Hemoglobin total, PA 8.5(L) 13.0 - 17.5 g/dL Blood 08/01/2024 8:34 PM CDT 08/01/2024 8:38 PM CDT us Arabella Gary RN RESIDENTIAL LAB BLOOD ORDERABLES Fi nal Result [facility] Department [place] [address] * Potassium, whole blood (08/01/2024 8:34 PM CDT) Pathologist [facility] Potassium, bld 3.8 3.3 - 4.9 mmol/L Blood 08/01/2024 8:34 PM CDT 08/01/2024 8:38 PM CDT Arabella Gary RN RESIDENTIAL LAB BLOOD ORDERABLES Fi nal Result Performing Organization Address [facility] Co de Phone Number [facility] [place] [address] * (ABNORMAL) Blood gas, arterial (08/01/2024 8:34 PM CDT) [facility] pH, Art 7.46(H) 7.35 - 7.45 PCO2, Arterial 31(L) 35 - 45 mmHg [facility] PO2, Arterial 111(H) 83 - 108 mmHg [facility] HCO3 Art (Calculated) 23 20 - 30 mmol/L [facility] BE, art -1 mmol/L [facility] Comment: Interpretive Data No Reference Range Established Current Interpretive Data was last revised on 2017 O2 Sat Art (Measured) 99(H) 90 - 95 % [facility] Blood 08/01/2024 8:34 PM CDT 08/01/2024 8:38 PM CDT Selvin Domínguez RN RESIDENTIAL LAB BLOOD ORDERABLES Teetee l Result Performing Organization Address City/[facility] Co de Phone Number [facility] [place] [address] * POCT glucose (08/01/2024 8:33 PM CDT) Glucose, POC 133 70 - 199 mg/dL Blood 08/01/2024 8:33 PM CDT 08/01/2024 8:33 PM CDT Nick Veliz MD LAB POCT ORDERABLES - DE VICE Final Result [facility] [place] [address] * Critical Care (08/01/2024 7:18 PM CDT) [...] plan with the ICU team and other medical/it support consultant staff, making frequent assessments and decisions [...] Oxyhemoglobin, pulmonary artery (08/01/2024 3:34 PM CDT) Oxyhemoglobin, PA 67.6 % Comment: Interpretive Data No reference range established. Current interpretive data was last revised 2019. Blood 08/01/2024 3:34 PM CDT 08/01/2024 3:39 PM CDT Selvin Domínguez RN RESIDENTIAL LAB BLOOD ORDERABLES Teetee l Result Performing Organization Address [facility] Co de Phone Number [facility] [place] [address] * (ABNORMAL) Hemoglobin total, pulmonary artery (08/01/2024 3:34 PM CDT) [facility] Hemoglobin total, PA 8.6(L) 13.0 - 17.5 g/dL Blood 08/01/2024 3:34 PM CDT 08/01/2024 3:39 PM CDT Arabella Gary RN RESIDENTIAL LAB BLOOD ORDERABLES Fi nal Result Performing Organization Address [facility] Co de Phone Number [facility] [place] [address] * Potassium, whole blood (08/01/2024 3:34 PM CDT) [facility] Potassium, bld 3.8 3.3 - 4.9 mmol/L Blood 08/01/2024 3:34 PM CDT 08/01/2024 3:38 PM CDT Arabella Gary RN RESIDENTIAL LAB BLOOD ORDERABLES Fi nal Result Performing Organization Address [facility] Co de Phone Number [facility] [place] [address] * (ABNORMAL) Blood gas, arterial (08/01/2024 3:34 PM CDT) [facility] pH, Art 7.44 7.35 - 7.45 PCO2, Arterial 32(L) 35 - 45 mmHg [facility] PO2, Arterial 171(H) 83 - 108 mmHg [facility] HCO3 Art (Calculated) 23 20 - 30 mmol/L [facility] BE, art -2 mmol/L [facility] Comment: Interpretive Data No Reference Range Established Current Interpretive Data was last revised on 2017 O2 Sat Art (Measured) 100(H) 90 - 95 % [facility] Blood 08/01/2024 3:34 PM CDT 08/01/2024 3:38 PM CDT Selvin Domínguez NP LAB BLOOD ORDERABLES Teetee l Result Performing Organization Address City/[facility]/ZIP Co de Phone Number [facility] [place] [address] * POCT glucose (08/01/2024 3:30 PM CDT) Glucose, POC 155 70 - 199 mg/dL Blood 08/01/2024 3:30 PM CDT 08/01/2024 3:30 PM CDT Nick Veliz MD LAB POCT ORDERABLES - DE VICE Final Result Performing Organization Address [facility] de Phone Number [facility] [place] [address] * Oxyhemoglobin, pulmonary artery (08/01/2024 11:50 AM CDT) Oxyhemoglobin, PA 80.0 % Comment: Interpretive Data No reference range established. Current interpretive data was last revised 2019. Blood 08/01/2024 11:5 0 AM CDT 08/01/2024 12:01 PM CDT Selvin Domínguez NP LAB BLOOD ORDERABLES Teetee l Result Performing Organization Address [facility] Co de Phone Number [facility] [place] [address] * (ABNORMAL) Hemoglobin total, pulmonary artery (08/01/2024 11:50 AM CDT) Hemoglobin total, PA 8.9(L) 13.0 - 17.5 g/dL Blood 08/01/2024 11:5 0 AM CDT 08/01/2024 12:01 PM CDT Arabella Gary LAB BLOOD ORDERABLES Fi nal Result Performing Organization Address City/[facility] de Phone Number [facility] [place] [address] * Potassium, whole blood (08/01/2024 11:50 AM CDT) Potassium, bld 4.1 3.3 - 4.9 mmol/L Blood 08/01/2024 11:5 0 AM CDT 08/01/2024 12:01 PM CDT Arabella Gary LAB BLOOD ORDERABLES Fi nal Result Performing Organization Address [facility] de Phone Number [facility] [place] [address] * eGFR (08/01/2024 11:50 AM CDT) eGFR [...] ORDERABLES Fin al Result Performing Organization Address [facility] Co de Phone Number [facility] [place] [address] * Heparin anti factor Xa activity (08/01/2024 [...] ORDERABLES Fin al Result Performing Organization Address City/[facility]/ZIP Co de Phone Number [facility] [place] [address] * aPTT (08/01/2024 11:50 AM CDT) aPTT [...] ORDERABLES Fin al Result Performing Organization Address [facility] de Phone Number [facility] [place] [address] * (ABNORMAL) Protime-INR (08/01/2024 11:50 AM CDT) PT 14.3(H) 9.7 - 13.0 sec INR 1.32(H) 0.90 - 1.20 [facility] Comment: Interpretive data Oral anticoagulant therapeutic ranges: Venous thromboembolism prophylaxis or treatment: 2.0-3.0 CARDIOLOGY Standard range: 2.0-3.0 High-intensity range: 2.5-3.5 Refer to indication-specific guidelines for appropriate target ranges for prosthetic heart valve replacement. Current interpretive data was last revised on 2019. Blood 08/01/2024 11:5 0 AM CDT 08/01/2024 12:03 PM CDT Marilee Sandoval NP LAB BLOOD ORDERABLES Fin al Result Performing Organization Address [facility] Co de Phone Number [facility] [place] [address] * (ABNORMAL) CBC without differential (08/01/2024 11:50 AM CDT) WBC 14.50(H) 3.80 - 9.90 K/cumm Hgb 8.7(L) 13.0 - 17.5 g/dL [facility] Hct 25.7(L) 38.9 - 50.3 % [facility] Plt 86(L) 150 - 400 K/cumm [facility] MPV 11.9 9.1 - 12.3 fL [facility] RBC 2.58(L) 4.30 - 5.80 M/cumm [facility] MCV 99.6(H) 81.3 - 96.4 fL [facility] MCH 33.7(H) 27.1 - 33.3 pg [facility] MCHC 33.9 32.3 - 35.7 g/dL [facility] RDW CV 16.6(H) 11.1 - 14.9 % [facility] RDW SD 61.5(H) 35.7 - 48.1 fL [facility] NRBC abs 0.00 0.00 - 0.01 K/cumm [facility] Blood 08/01/2024 11:5 0 AM CDT 08/01/2024 12:09 PM CDT us Marilee Sandoval NP LAB BLOOD ORDERABLES Fin al Result [facility] [place] [address] * Basic metabolic panel (08/01/2024 11:50 AM CDT) [facility] Sodium 140 135 - 145 mmol/L Potassium, pl 4.4 3.3 - 4.9 mmol/L [facility] Chloride 106 97 - 110 mmol/L [facility] CO2 23 22 - 32 mmol/L [facility] Anion gap 11 2 - 15 mmol/L [facility] BUN 24 6 - 25 mg/dL [facility] Creatinine 1.22 0.80 - 1.30 mg/dL [facility] Glucose 142 70 - 199 mg/dL [facility] Comment: Interpretive Data Fasting glucose [...] 2022. Calcium 9.0 8.5 - 10.3 mg/dL [facility] Blood 08/01/2024 11:5 0 AM CDT 08/01/2024 12:09 PM CDT Marilee Sandoval RN RESIDENTIAL LAB BLOOD ORDERABLES Fin al Result [facility] [place] [address] * POCT glucose (08/01/2024 11:48 AM CDT) Glucose, POC 139 70 - 199 mg/dL Blood 08/01/2024 11:4 8 AM CDT 08/01/2024 11:48 AM CDT Nick Veliz MD LAB POCT ORDERABLES - DE VICE Final Result Performing Organization Address City/[facility]/ZIP Co de Phone Number [facility] [place] [address] * Oxyhemoglobin, pulmonary artery (08/01/2024 7:59 AM CDT) Oxyhemoglobin, PA 85.1 % Comment: Interpretive Data No reference range established. Current interpretive data was last revised 2019. Blood 08/01/2024 7:5 9 AM CDT 08/01/2024 8:04 AM CDT Selvin Domínguez RN RESIDENTIAL LAB BLOOD ORDERABLES Teetee l Result Performing Organization Address [facility] Co de Phone Number [facility] [place] [address] * (ABNORMAL) Hemoglobin total, pulmonary artery (08/01/2024 7:59 AM CDT) Pathologist [facility] Hemoglobin total, PA 8.6(L) 13.0 - 17.5 g/dL Blood 08/01/2024 7:59 AM CDT 08/01/2024 8:04 AM CDT Arabella Gary NP LAB BLOOD ORDERABLES Fi nal Result Performing Organization Address [facility] Co de Phone Number [facility] [place] [address] * Potassium, whole blood (08/01/2024 7:59 AM CDT) [facility] Potassium, bld 4.4 3.3 - 4.9 mmol/L Blood 08/01/2024 7:59 AM CDT 08/01/2024 8:12 AM CDT Arabella Gary NP LAB BLOOD ORDERABLES Fi nal Result Performing Organization Address [facility] [facility] Co de Phone Number [facility] [place] [address] * (ABNORMAL) Blood gas, arterial (08/01/2024 7:59 AM CDT) pH, Art 7.42 7.35 - 7.45 PCO2, Arterial 33(L) 35 - 45 mmHg [facility] PO2, Arterial 174(H) 83 - 108 mmHg [facility] HCO3 Art (Calculated) 22 20 - 30 mmol/L [facility] BE, art -2 mmol/L [facility] Comment: Interpretive Data No Reference Range Established Current Interpretive Data was last revised on 2017 O2 Sat Art (Measured) 99(H) 90 - 95 % [facility] Blood 08/01/2024 7:59 AM CDT 08/01/2024 8:12 AM CDT Selvin Domínguez NP LAB BLOOD ORDERABLES Teetee l Result Performing Organization Address [facility] Co de Phone Number [facility] [place] [address] * POCT glucose (08/01/2024 7:54 AM CDT) Glucose, POC 144 70 - 199 mg/dL Blood 08/01/2024 7:54 AM CDT 08/01/2024 7:54 AM CDT Nick Veliz MD LAB POCT ORDERABLES - DE VICE Final Result Performing Organization Address [facility] Co de Phone Number [facility] [place] [address] * Critical Care (08/01/2024 7:00 AM CDT) [...] plan with the ICU team and other medical/it support consultant staff, making frequent assessments and decisions [...] in the medical record us Codi Ibanez RN RESIDENTIAL IN CLINIC/BEDSIDE ORDERABLES Fin al Result * POCT glucose (08/01/2024 6:17 AM CDT) Glucose, POC 120 70 - 199 mg/dL Blood 08/01/2024 6:17 AM CDT 08/01/2024 6:17 AM CDT Nick Veliz MD LAB POCT ORDERABLES - DE VICE Final Result Performing Organization Address [facility] Co de Phone Number [facility] [place] [address] * POCT glucose (08/01/2024 5:12 AM CDT) Glucose, POC 141 70 - 199 mg/dL Blood 08/01/2024 5:12 AM CDT 08/01/2024 5:12 AM CDT Nick Veliz MD LAB POCT ORDERABLES - DE VICE Final Result Performing Organization Address [facility] Co de Phone Number [facility] Department [place] [address] * Oxyhemoglobin, pulmonary artery (08/01/2024 5:11 AM CDT) Oxyhemoglobin, PA 54.5 % Comment: Interpretive Data No reference range established. Current interpretive data was last revised 2019. Blood 08/01/2024 5:11 AM CDT 08/01/2024 5:18 AM CDT Selvin Domínguez RN RESIDENTIAL LAB BLOOD ORDERABLES Teetee l Result [facility] [place] [address] * (ABNORMAL) Hemoglobin total, pulmonary artery (08/01/2024 5:11 AM CDT) Hemoglobin total, PA 8.3(L) 13.0 - 17.5 g/dL Blood 08/01/2024 5:11 AM CDT 08/01/2024 5:18 AM CDT Arabella Gary RN RESIDENTIAL LAB BLOOD ORDERABLES Fi nal Result Performing Organization Address [facility] Co de Phone Number [facility] [place] [address] * (ABNORMAL) Blood gas, arterial (08/01/2024 5:11 AM CDT) pH, Art 7.43 7.35 - 7.45 PCO2, Arterial 32(L) 35 - 45 mmHg [facility] PO2, Arterial 78(L) 83 - 108 mmHg [facility] HCO3 Art (Calculated) 22 20 - 30 mmol/L [facility] BE, art -2 mmol/L [facility] Comment: Interpretive Data No Reference Range Established Current Interpretive Data was last revised on 2017 O2 Sat Art (Measured) 96(H) 90 - 95 % [facility] Blood 08/01/2024 5:11 AM CDT 08/01/2024 5:18 AM CDT Selvin Domínguez RN RESIDENTIAL LAB BLOOD ORDERABLES Teetee l Result Performing Organization Address City/[facility]/ZIP Co de Phone Number [facility] [place] [address] * POCT glucose (08/01/2024 4:01 AM CDT) Glucose, POC 106 70 - 199 mg/dL Blood 08/01/2024 4:01 AM CDT 08/01/2024 4:01 AM CDT Nick Veliz MD LAB POCT ORDERABLES - DE VICE Final Result Performing Organization Address [facility] Co wv Phone Number [facility] [place] [address] * POCT glucose (08/01/2024 2:16 AM CDT) Glucose, POC 119 70 - 199 mg/dL Blood 08/01/2024 2:16 AM CDT 08/01/2024 2:16 AM CDT Nick Veliz MD LAB POCT ORDERABLES - DE VICE Final Result Performing Organization Address [facility] Co de Phone Number [facility] [place] [address] * POCT glucose (08/01/2024 1:27 AM CDT) Glucose, POC 128 70 - 199 mg/dL Blood 08/01/2024 1:27 AM CDT 08/01/2024 1:27 AM CDT Nick Veliz MD LAB POCT ORDERABLES - DE VICE Final Result Performing Organization Address [facility] de Phone Number [facility] [place] [address] * Oxyhemoglobin, central venous (08/01/2024 12:26 AM CDT) Oxyhemoglobin, CV 80.5 % Comment: Interpretive Data No reference range established. Current interpretive data was last revised 2019. Blood 08/01/2024 12:2 6 AM CDT 08/01/2024 12:44 AM CDT Marilee Sandoval RN RESIDENTIAL LAB BLOOD ORDERABLES Fin al Result Performing Organization Address [facility] Co de Phone Number [facility] [place] [address] * Oxyhemoglobin, pulmonary artery (08/01/2024 12:26 AM CDT) Oxyhemoglobin, PA 70.4 % Comment: Interpretive Data No reference range established. Current interpretive data was last revised 2019. Blood 08/01/2024 12:2 6 AM CDT 08/01/2024 12:34 AM CDT Marilee Sandoval RN RESIDENTIAL LAB BLOOD ORDERABLES Fin al Result Performing Organization Address [facility] Co de Phone Number [facility] [place] [address] * Lactate (08/01/2024 12:26 AM CDT) Pathologist [facility] Lactate 1.2 0.7 - 2.0 mmol/L Blood 08/01/2024 12:2 6 AM CDT 08/01/2024 12:44 AM CDT Selvin Domínguez RN RESIDENTIAL LAB BLOOD ORDERABLES Teetee l Result Performing Organization Address [facility] Co de Phone Number [facility] [place] [address] * Hemoglobin, plasma (08/01/2024 12:26 AM CDT) Hemoglobin, Plasma <30 <=50 mg/dL Blood 08/01/2024 12:2 6 AM CDT 08/01/2024 12:35 AM CDT us Marilee Sandoval RN RESIDENTIAL LAB BLOOD ORDERABLES Fin al Result [facility] [place] [address] * Potassium, whole blood (08/01/2024 12:26 AM CDT) Potassium, bld 4.4 3.3 - 4.9 mmol/L Blood 08/01/2024 12:2 6 AM CDT 08/01/2024 12:34 AM CDT Arabella Gary RN RESIDENTIAL LAB BLOOD ORDERABLES Fi nal Result Performing Organization Address [facility] Co de Phone Number [facility] [place] [address] * (ABNORMAL) eGFR (08/01/2024 12:26 AM CDT) eGFR 52(L) >=60 mL/min/1. 73 m2 Comment: [...] LAB BLOOD ORDERABLES Fin al Result [facility] [place] [address] * Heparin anti factor Xa activity (08/01/2024 [...] LAB BLOOD ORDERABLES Fin al Result [facility] [place] [address] * Lactate, whole blood (08/01/2024 12:26 AM CDT) Lactate, bld 1.2 0.7 - 2.0 mmol/L Blood 08/01/2024 12:2 6 AM CDT 08/01/2024 12:34 AM CDT Nick Veliz MD LAB BLOOD ORDERABLES Fin al Result Performing Organization Address [facility] Co de Phone Number [facility] [place] [address] * aPTT (08/01/2024 12:26 AM CDT) aPTT 30 28 - 38 sec Comment: Interpretive Data Heparin therapeutic range: 66.0 - 100.0 seconds. Range based on correlation with therapeutic heparin activity range of 0.3 - 0.7 Units/mL. Current interpretive data was last revised on 2023. Blood 08/01/2024 12:2 6 AM CDT 08/01/2024 12:34 AM CDT Result [facility] Marilee Sandoval NP LAB BLOOD ORDERABLES Fin al Result Performing Organization Address [facility] [place] [address] * (ABNORMAL) Protime-INR (08/01/2024 12:26 AM CDT) PT 14.2(H) 9.7 - 13.0 sec INR 1.31(H) 0.90 - 1.20 [facility] Comment: Interpretive data Oral anticoagulant therapeutic ranges: Venous thromboembolism prophylaxis or treatment: 2.0-3.0 CARDIOLOGY Standard range: 2.0-3.0 High-intensity range: 2.5-3.5 Refer to indication-specific guidelines for appropriate target ranges for prosthetic heart valve replacement. Current interpretive data was last revised on 2019. Blood 08/01/2024 12:2 6 AM CDT 08/01/2024 12:34 AM CDT Result [facility] Marilee Sandoval NP LAB BLOOD ORDERABLES Fin al Result [facility] Department of Laboratories [place], [place] [id number] * (ABNORMAL) Fibrinogen (08/01/2024 12:26 AM CDT) [facility] Fibrinogen 414(H) 170 - 400 mg/dL Blood 08/01/2024 12:2 6 AM CDT 08/01/2024 12:34 AM CDT Nick Veliz MD LAB BLOOD ORDERABLES Fin al Result Performing Organization Address [facility] Co de Phone Number [facility] Department [place] [address] * (ABNORMAL) CBC without differential (08/01/2024 12:26 AM CDT) [facility] WBC 12.94(H) 3.80 - 9.90 K/cumm Hgb 8.6(L) 13.0 - 17.5 g/dL [facility] Hct 25.3(L) 38.9 - 50.3 % [facility] Plt 73(L) 150 - 400 K/cumm [facility] MPV 11.5 9.1 - 12.3 fL [facility] RBC 2.57(L) 4.30 - 5.80 M/cumm [facility] MCV 98.4(H) 81.3 - 96.4 fL [facility] MCH 33.5(H) 27.1 - 33.3 pg [facility] MCHC 34.0 32.3 - 35.7 g/dL [facility] RDW CV 17.0(H) 11.1 - 14.9 % [facility] RDW SD 61.4(H) 35.7 - 48.1 fL [facility] NRBC abs 0.00 0.00 - 0.01 K/cumm [facility] Blood 08/01/2024 12:2 6 AM CDT 08/01/2024 12:35 AM CDT Marilee Sandoval RN RESIDENTIAL LAB BLOOD ORDERABLES Fin al Result Performing Organization Address [facility] de Phone Number [facility] [place] [address] * (ABNORMAL) Phosphorus (08/01/2024 12:26 AM CDT) Phosphorus, pl 5.0(H) 2.3 - 4.5 mg/dL Blood 08/01/2024 12:2 6 AM CDT 08/01/2024 12:35 AM CDT Selvin Domínguez RN RESIDENTIAL LAB BLOOD ORDERABLES Teetee l Result Performing Organization Address [facility] de Phone Number [facility] [place] [address] * (ABNORMAL) Magnesium (08/01/2024 12:26 AM CDT) Magnesium 2.6(H) 1.4 - 2.5 mg/dL Blood 08/01/2024 12:2 6 AM CDT 08/01/2024 12:35 AM CDT Selvin Domínguez RN RESIDENTIAL LAB BLOOD ORDERABLES Teetee l Result Performing Organization Address [facility] de Phone Number [facility] [place] [address] * (ABNORMAL) Lactate dehydrogenase (LD) (08/01/2024 12:26 AM CDT) Lactate dehydrogenase (LDH) 400(H) 100 - 250 Units/L Blood 08/01/2024 12:2 6 AM CDT 08/01/2024 12:35 AM CDT Marilee Sandoval RN RESIDENTIAL LAB BLOOD ORDERABLES Fin al Result Performing Organization Address [facility]/ZIP Co de Phone Number [facility] [place] [address] * (ABNORMAL) Blood gas, arterial (08/01/2024 12:26 AM CDT) Pathologist [facility] pH, Art 7.38 7.35 - 7.45 PCO2, Arterial 36 35 - 45 mmHg [facility] PO2, Arterial 136(H) 83 - 108 mmHg [facility] HCO3 Art (Calculated) 22 20 - 30 mmol/L [facility] BE, art -4 mmol/L [facility] Comment: Interpretive Data No Reference Range Established Current Interpretive Data was last revised on 2017 O2 Sat Art (Measured) 99(H) 90 - 95 % [facility] Blood 08/01/2024 12:2 6 AM CDT 08/01/2024 12:34 AM CDT Selvin Domínguez RN RESIDENTIAL LAB BLOOD ORDERABLES Teetee l Result Performing Organization Address [facility] Co de Phone Number [facility] [place] [address] * (ABNORMAL) Creatine kinase (CK), total (08/01/2024 12:26 AM CDT) Pathologist [facility] CK 316(H) 40 - 300 Units/L Blood 08/01/2024 12:2 6 AM CDT 08/01/2024 12:35 AM CDT Nick Veliz MD LAB BLOOD ORDERABLES Fin al Result Performing Organization Address City/[facility] [place] [address] * (ABNORMAL) Hepatic function panel (08/01/2024 12:26 AM CDT) Pathologist [facility] Bilirubin, total 1.4(H) 0.1 - 1.2 mg/dL Bilirubin, direct 0.7(H) 0.1 - 0.3 mg/dL [facility] Protein, pl 5.6(L) 6.5 - 8.5 g/dL [facility] Albumin 3.5 3.5 - 5.0 g/dL [facility] Alk phos 40 40 - 130 Units/L [facility] ALT 8 7 - 55 Units/L [facility] AST 66(H) 10 - 50 Units/L [facility] Blood 08/01/2024 12:2 6 AM CDT 08/01/2024 12:35 AM CDT Marilee Sandoval NP LAB BLOOD ORDERABLES Fin al Result [facility] [place] [address] * (ABNORMAL) Basic metabolic panel (08/01/2024 12:26 AM CDT) [facility] Sodium 142 135 - 145 mmol/L Potassium, pl 4.6 3.3 - 4.9 mmol/L [facility] Chloride 108 97 - 110 mmol/L [facility] CO2 22 22 - 32 mmol/L [facility] Anion gap 12 2 - 15 mmol/L [facility] BUN 27(H) 6 - 25 mg/dL [facility] Creatinine 1.42(H) 0.80 - 1.30 mg/dL [facility] Glucose 137 70 - 199 mg/dL [facility] Comment: Interpretive Data Fasting glucose [...] 2022. Calcium 9.2 8.5 - 10.3 mg/dL [facility] Blood 08/01/2024 12:2 6 AM CDT 08/01/2024 12:35 AM CDT Nick Veliz MD LAB BLOOD ORDERABLES Fin al Result Performing Organization Address [facility] Co de Phone Number [facility] [place] [address] * POCT glucose (08/01/2024 12:23 AM CDT) Glucose, POC 134 70 - 199 mg/dL Blood 08/01/2024 12:2 3 AM CDT 08/01/2024 12:23 AM CDT Nick Veliz MD LAB POCT ORDERABLES - DE VICE Final Result Performing Organization Address [facility] Co de Phone Number [facility] [place] [address] * POCT glucose (07/31/2024 10:10 PM CDT) Glucose, POC 107 70 - 199 mg/dL Blood 07/31/2024 10:1 0 PM CDT 07/31/2024 10:10 PM CDT Nick Veliz MD LAB POCT ORDERABLES - DE VICE Final Result Performing Organization Address [facility] [place] [address] * Oxyhemoglobin, pulmonary artery (07/31/2024 9:19 PM CDT) Oxyhemoglobin, PA 71.0 % Comment: Interpretive Data No reference range established. Current interpretive data was last revised 2019. Blood 07/31/2024 9:19 PM CDT 07/31/2024 9:23 PM CDT Selvin Domínguez RN RESIDENTIAL LAB BLOOD ORDERABLES Teetee l Result Performing Organization Address [facility] Co de Phone Number [facility] [place] [address] * (ABNORMAL) Hemoglobin total, pulmonary artery (07/31/2024 9:19 PM CDT) Pathologist [facility] Hemoglobin total, PA 8.8(L) 13.0 - 17.5 g/dL Blood 07/31/2024 9:19 PM CDT 07/31/2024 9:23 PM CDT Arabella Gary RN RESIDENTIAL LAB BLOOD ORDERABLES Fi nal Result Performing Organization Address [facility] de Phone Number [facility] [place] [address] * (ABNORMAL) Blood gas, arterial (07/31/2024 9:19 PM CDT) pH, Art 7.40 7.35 - 7.45 PCO2, Arterial 30(L) 35 - 45 mmHg [facility] PO2, Arterial 159(H) 83 - 108 mmHg [facility] HCO3 Art (Calculated) 19(L) 20 - 30 mmol/L [facility] BE, art -5 mmol/L [facility] Comment: Interpretive Data No Reference Range Established Current Interpretive Data was last revised on 2017 O2 Sat Art (Measured) 100(H) 90 - 95 % [facility] Blood 07/31/2024 9:19 PM CDT 07/31/2024 9:23 PM CDT Selvin Domínguez RN RESIDENTIAL LAB BLOOD ORDERABLES Teetee l Result Performing Organization Address [facility] Co de Phone Number [facility] [place] [address] * POCT glucose (07/31/2024 9:17 PM CDT) Glucose, POC 116 70 - 199 mg/dL Blood 07/31/2024 9:17 PM CDT 07/31/2024 9:17 PM CDT Nick Pippa Veliz MD LAB POCT ORDERABLES - DE VICE Final Result [facility] [place] [address] * XR Chest 1 View - in [...] below the level of the hemidiaphragm. A Elmo-Clair catheter is in place, tip overlies the [...] below the level of the hemidiaphragm. A Elmo-Clair catheter is in place, tip overlies the [...] plan with the ICU team and other medical/it support consultant staff, making frequent assessments and decisions [...] patient with consultants and the medical staff Result [facility] [place] NP IN CLINIC/BEDSIDE ORDERABLES F inal Result * Oxyhemoglobin, pulmonary artery (07/31/2024 7:48 PM CDT) Oxyhemoglobin, PA 70.5 % Comment: Interpretive Data No reference range established. Current interpretive data was last revised 2019. Blood 07/31/2024 7:48 PM CDT 07/31/2024 7:53 PM CDT Selvin Domínguez RN RESIDENTIAL LAB BLOOD ORDERABLES Teetee l Result Performing Organization Address [facility] Co de Phone Number [facility] [place] [address] * (ABNORMAL) Hemoglobin total, pulmonary artery (07/31/2024 7:48 PM CDT) Hemoglobin total, PA 9.0(L) 13.0 - 17.5 g/dL Blood 07/31/2024 7:48 PM CDT 07/31/2024 7:53 PM CDT Result [facility] Arabella Gary NP LAB BLOOD ORDERABLES Fi nal Result Performing Organization Address [facility] Co de Phone Number [facility] [place] [address] * Potassium, whole blood (07/31/2024 7:48 PM CDT) Potassium, bld 4.2 3.3 - 4.9 mmol/L Blood 07/31/2024 7:48 PM CDT 07/31/2024 7:53 PM CDT Arabella Gary NP LAB BLOOD ORDERABLES Fi nal Result [facility] [place] [address] * (ABNORMAL) Blood gas, arterial (07/31/2024 7:48 PM CDT) pH, Art 7.42 7.35 - 7.45 PCO2, Arterial 31(L) 35 - 45 mmHg [facility] PO2, Arterial 170(H) 83 - 108 mmHg [facility] HCO3 Art (Calculated) 21 20 - 30 mmol/L [facility] BE, art -4 mmol/L [facility] Comment: Interpretive Data No Reference Range Established Current Interpretive Data was last revised on 2017 O2 Sat Art (Measured) 98(H) 90 - 95 % [facility] Blood 07/31/2024 7:48 PM CDT 07/31/2024 7:53 PM CDT us Selvin Domínguez NP LAB BLOOD ORDERABLES Teetee l Result Performing Organization Address City/[facility]/ZIP Co de Phone Number [facility] [place] [address] * POCT glucose (07/31/2024 7:44 PM CDT) Glucose, POC 112 70 - 199 mg/dL Blood 07/31/2024 7:44 PM CDT 07/31/2024 7:44 PM CDT us Nick Veliz MD LAB POCT ORDERABLES - DE VICE Final Result Performing Organization Address City/[facility]/ZIP Co de Phone [place] [address] * Transfuse RBC (07/31/2024 7:30 PM CDT) Blood us Yazmin M. Weinhold RN RESIDENTIAL BLOOD TRANSFUSION ORDERAB LES Final Result Performing Organization Address [facility]/[place] [address] * POCT glucose (07/31/2024 6:15 PM CDT) Glucose, POC 86 70 - 199 mg/dL Blood 07/31/2024 6:15 PM CDT 07/31/2024 6:15 PM CDT Nick Veliz MD LAB POCT ORDERABLES - DE VICE Final Result Performing Organization Address [facility]/ZIP Co de Phone Number [facility] [place] [address] * POCT glucose (07/31/2024 3:14 PM CDT) Glucose, POC 101 70 - 199 mg/dL Blood 07/31/2024 3:14 PM CDT 07/31/2024 3:14 PM CDT Nick Veliz MD LAB POCT ORDERABLES - DE VICE Final Result Performing Organization Address [facility] [place] [address] * Prepare RBC: 1 Units (07/31/2024 2:53 PM CDT) Product code [id number] Unit Number [id number] [facility] Product Blood Type APOS [facility] Dispense Status PRESUMED TRANSFUSED [facility] Blood 07/31/2024 2:53 PM CDT 07/31/2024 2:54 PM CDT Narrative [facility] - 08/01/2024 6:01 AM CDT Are special requirements needed? (All products are leukoreduced and CMV- safe)- >No Date required:-[id number] LRRBC # of [id number] Reasons:-Cardiovascular disease, Hgb <8 g/dL} Yazmin Alvarado NP BLOOD BANK PRODUCT ORDERA BLES Final Result Performing Organization Address City/[facility] Co de Phone Number [facility] [place] [address] * Methemoglobin, art (07/31/2024 2:10 PM CDT) [facility] Methemoglobin, art 1.3 0.0 - 1.9 % Blood 07/31/2024 2:10 PM CDT 07/31/2024 2:15 PM CDT Nick Veliz MD LAB BLOOD ORDERABLES Fin al Result Performing Organization Address [facility] Co de Phone Number [facility] [place] [address] * Potassium, whole blood (07/31/2024 2:10 PM CDT) [facility] Potassium, bld 4.4 3.3 - 4.9 mmol/L Blood 07/31/2024 2:10 PM CDT 07/31/2024 2:15 PM CDT Arabella Gary NP LAB BLOOD ORDERABLES Fi nal Result Performing Organization Address [facility] de Phone Number [facility] [place] [address] * (ABNORMAL) eGFR (07/31/2024 2:10 PM CDT) [facility] eGFR 50(L) >=60 mL/min/1. 73 [...] NP LAB BLOOD ORDERABLES Fin al Result [facility] [place] [address] * Heparin anti factor Xa activity (07/31/2024 2:10 PM CDT) Anti Factor Xa <0.10 IUnits/mL [...] CDT 07/31/2024 2:29 PM CDT Marilee Sandoval RN RESIDENTIAL LAB BLOOD ORDERABLES Fin al Result Performing Organization Address [facility] de Phone Number [facility] [place] [address] * aPTT (07/31/2024 2:10 PM CDT) aPTT 30 28 - 38 sec Comment: Interpretive Data Heparin therapeutic range: 66.0 - 100.0 seconds. Range based on correlation with therapeutic heparin activity range of 0.3 - 0.7 Units/mL. Current interpretive data was last revised on 2023. Blood 07/31/2024 2:10 PM CDT 07/31/2024 2:29 PM CDT Result [facility] Marilee Sandoval RN RESIDENTIAL LAB BLOOD ORDERABLES Fin al Result Performing Organization Address [facility] de Phone Number [facility] [place] [address] * (ABNORMAL) Protime-INR (07/31/2024 2:10 PM CDT) PT 15.9(H) 9.7 - 13.0 sec INR 1.46(H) 0.90 - 1.20 [facility] Comment: Interpretive data Oral anticoagulant therapeutic ranges: Venous thromboembolism prophylaxis or treatment: 2.0-3.0 CARDIOLOGY Standard range: 2.0-3.0 High-intensity range: 2.5-3.5 Refer to indication-specific guidelines for appropriate target ranges for prosthetic heart valve replacement. Current interpretive data was last revised on 2019. Blood 07/31/2024 2:10 PM CDT 07/31/2024 2:29 PM CDT Marilee Sandoval RN RESIDENTIAL LAB BLOOD ORDERABLES Fin al Result [facility] [place] [address] * (ABNORMAL) CBC without differential (07/31/2024 2:10 PM CDT) WBC 11.86(H) 3.80 - 9.90 K/cumm Hgb 7.8(L) 13.0 - 17.5 g/dL [facility] Hct 22.8(L) 38.9 - 50.3 % [facility] Plt 95(L) 150 - 400 K/cumm [facility] MPV 10.7 9.1 - 12.3 fL [facility] RBC 2.30(L) 4.30 - 5.80 M/cumm [facility] MCV 99.1(H) 81.3 - 96.4 fL [facility] MCH 33.9(H) 27.1 - 33.3 pg [facility] MCHC 34.2 32.3 - 35.7 g/dL [facility] RDW CV 15.4(H) 11.1 - 14.9 % [facility] RDW SD 56.2(H) 35.7 - 48.1 fL [facility] NRBC abs 0.00 0.00 - 0.01 K/cumm [facility] Blood 07/31/2024 2:10 PM CDT 07/31/2024 2:22 PM CDT us Marilee Sandoval RN RESIDENTIAL LAB BLOOD ORDERABLES Fin al Result [facility] [place] [address] * (ABNORMAL) Blood gas, arterial (07/31/2024 2:10 PM CDT) pH, Art 7.45 7.35 - 7.45 PCO2, Arterial 32(L) 35 - 45 mmHg [facility] PO2, Arterial 175(H) 83 - 108 mmHg [facility] HCO3 Art (Calculated) 23 20 - 30 mmol/L [facility] BE, art -1 mmol/L [facility] Comment: Interpretive Data No Reference Range Established Current Interpretive Data was last revised on 2017 O2 Sat Art (Measured) 100(H) 90 - 95 % [facility] Blood 07/31/2024 2:10 PM CDT 07/31/2024 2:15 PM CDT us Selvin Domínguez RN RESIDENTIAL LAB BLOOD ORDERABLES Teetee l Result [facility] [place] [address] * (ABNORMAL) Basic metabolic panel (07/31/2024 2:10 PM CDT) Pathologist [facility] Sodium 141 135 - 145 mmol/L Potassium, pl 4.6 3.3 - 4.9 mmol/L [facility] Chloride 108 97 - 110 mmol/L [facility] CO2 25 22 - 32 mmol/L [facility] Anion gap 8 2 - 15 mmol/L [facility] BUN 25 6 - 25 mg/dL [facility] Creatinine 1.48(H) 0.80 - 1.30 mg/dL [facility] Glucose 111 70 - 199 mg/dL [facility] Comment: Interpretive Data Fasting glucose [...] 2022. Calcium 9.0 8.5 - 10.3 mg/dL [facility] Blood 07/31/2024 2:10 PM CDT 07/31/2024 2:22 PM CDT Marilee Sandoval NP LAB BLOOD ORDERABLES Fin al Result Performing Organization Address [facility] Co de Phone Number [facility] [place] [address] * POCT glucose (07/31/2024 2:08 PM CDT) Glucose, POC 121 70 - 199 mg/dL Blood 07/31/2024 2:08 PM CDT 07/31/2024 2:08 PM CDT Nick Veliz MD LAB POCT ORDERABLES - DE VICE Final Result Performing Organization Address [facility] Phone Number [facility] [place] [address] * POCT glucose (07/31/2024 12:17 PM CDT) Glucose, POC 121 70 - 199 mg/dL Blood 07/31/2024 12:1 7 PM CDT 07/31/2024 12:17 PM CDT Nick Veliz MD LAB POCT ORDERABLES - DE VICE Final Result Performing Organization Address [facility] Co de Phone Number [facility] [place] [address] * POCT glucose (07/31/2024 11:29 AM CDT) Glucose, POC 121 70 - 199 mg/dL Blood 07/31/2024 11:2 9 AM CDT 07/31/2024 11:29 AM CDT Nick Veliz MD LAB POCT ORDERABLES - DE VICE Final Result Performing Organization Address [facility] de Phone Number [facility] [place] [address] * Oxyhemoglobin, central venous (07/31/2024 10:35 AM CDT) Oxyhemoglobin, CV 84.5 % Comment: Interpretive Data No reference range established. Current interpretive data was last revised 2019. Blood 07/31/2024 10:3 5 AM CDT 07/31/2024 10:40 AM CDT Selvin Domínguez RN RESIDENTIAL LAB BLOOD ORDERABLES Teetee l Result Performing Organization Address [facility] de Phone Number [facility] [place] [address] * Oxyhemoglobin, pulmonary artery (07/31/2024 10:35 AM CDT) Oxyhemoglobin, PA 88.9 % Comment: Interpretive Data No reference range established. Current interpretive data was last revised 2019. Blood 07/31/2024 10:3 5 AM CDT 07/31/2024 10:40 AM CDT us Selvin Domínguez NP LAB BLOOD ORDERABLES Teetee l Result Performing Organization Address [facility] Co de Phone Number [facility] Department [place] [address] * (ABNORMAL) Hemoglobin total, pulmonary artery (07/31/2024 10:35 AM CDT) Hemoglobin total, PA 7.9(L) 13.0 - 17.5 g/dL Blood 07/31/2024 10:3 5 AM CDT 07/31/2024 10:40 AM CDT us Arabella Gary RN RESIDENTIAL LAB BLOOD ORDERABLES Fi nal Result Performing Organization Address City/[facility]/ZIP Co de Phone Number [facility] [place] [address] * Hemoglobin, plasma (07/31/2024 10:35 AM CDT) Hemoglobin, Plasma <30 <=50 mg/dL Blood 07/31/2024 10:3 5 AM CDT 07/31/2024 10:45 AM CDT Nick Veliz MD LAB BLOOD ORDERABLES Fin al Result Performing Organization Address [facility] de Phone Number [facility] Department [place] [address] * (ABNORMAL) eGFR (07/31/2024 10:35 AM CDT) [...] 5 AM CDT 07/31/2024 10:45 AM CDT us Nick Veliz MD LAB BLOOD ORDERABLES Fin al Result [facility] [place] [address] * Heparin anti factor Xa activity (07/31/2024 [...] CDT Nick Veliz MD LAB BLOOD ORDERABLES Estevan al Result Performing Organization Address City/[facility]/ZIP Co de Phone Number [facility] Department [place] [address] * (ABNORMAL) Blood gas, arterial (07/31/2024 10:35 AM CDT) pH, Art 7.43 7.35 - 7.45 PCO2, Arterial 31(L) 35 - 45 mmHg [facility] PO2, Arterial 184(H) 83 - 108 mmHg [facility] HCO3 Art (Calculated) 21 20 - 30 mmol/L [facility] BE, art -3 mmol/L [facility] Comment: Interpretive Data No Reference Range Established Current Interpretive Data was last revised on 2017 O2 Sat Art (Measured) 100(H) 90 - 95 % [facility] Blood 07/31/2024 10:3 5 AM CDT 07/31/2024 10:40 AM CDT Selvin Domínguez NP LAB BLOOD ORDERABLES Teetee l Result Performing Organization Address [facility] Co de Phone Number [facility] Department [place] [address] * (ABNORMAL) Creatine kinase (CK), total (07/31/2024 10:35 AM CDT) CK 479(H) 40 - 300 Units/L Blood 07/31/2024 10:3 5 AM CDT 07/31/2024 10:45 AM CDT Narrative [facility] - 07/31/2024 11:21 AM CDT Do Not delete for IMPACT trial Nick Veliz MD LAB BLOOD ORDERABLES Fin al Result Performing Organization Address [facility] Co de Phone Number [facility] Department [place] [address] * (ABNORMAL) Comprehensive metabolic panel (07/31/2024 10:35 AM CDT) Sodium 138 135 - 145 mmol/L Potassium, pl 4.8 3.3 - 4.9 mmol/L [facility] Chloride 105 97 - 110 mmol/L [facility] CO2 22 22 - 32 mmol/L [facility] Anion gap 11 2 - 15 mmol/L [facility] BUN 25 6 - 25 mg/dL [facility] Creatinine 1.53(H) 0.80 - 1.30 mg/dL [facility] Glucose 136 70 - 199 mg/dL [facility] Comment: Interpretive Data Fasting glucose [...] 2022. Calcium 9.4 8.5 - 10.3 mg/dL [facility] Bilirubin, total 1.2 0.1 - 1.2 mg/dL [facility] Protein, pl 5.1(L) 6.5 - 8.5 g/dL [facility] Albumin 3.2(L) 3.5 - 5.0 g/dL [facility] Alk phos 33(L) 40 - 130 Units/L [facility] ALT 13 7 - 55 Units/L [facility] AST 96(H) 10 - 50 Units/L [facility] Blood 07/31/2024 10:3 5 AM CDT 07/31/2024 10:45 AM CDT Nick eVliz MD LAB BLOOD ORDERABLES Fin al Result Performing Organization Address City/[facility]/ZIP Co de Phone Number [facility] [place] [address] * POCT glucose (07/31/2024 10:33 AM CDT) Glucose, POC 157 70 - 199 mg/dL Blood 07/31/2024 10:3 3 AM CDT 07/31/2024 10:33 AM CDT Nick Veliz MD LAB POCT ORDERABLES - DE VICE Final Result Performing Organization Address [facility]/ZIP Co de Phone Number [facility] Department [place] [address] * Oxyhemoglobin, pulmonary artery (07/31/2024 9:57 AM CDT) Oxyhemoglobin, PA 89.6 % Comment: Interpretive Data No reference range established. Current interpretive data was last revised 2019. Blood 07/31/2024 9:57 AM CDT 07/31/2024 10:00 AM CDT Selvin Domínguez RN RESIDENTIAL LAB BLOOD [place] [address] * (ABNORMAL) Hemoglobin total, pulmonary artery (07/31/2024 9:57 AM CDT) Hemoglobin total, PA 8.8(L) 13.0 - 17.5 g/dL Blood 07/31/2024 9:57 AM CDT 07/31/2024 10:00 AM CDT Arabella Gary RN RESIDENTIAL LAB BLOOD ORDERABLES Fi nal Result Performing Organization Address City/[facility] Co de Phone Number [facility] [place] [address] * Potassium, whole blood (07/31/2024 9:57 AM CDT) Pathologist [facility] Potassium, bld 4.5 3.3 - 4.9 mmol/L Blood 07/31/2024 9:57 AM CDT 07/31/2024 10:00 AM CDT Arabella Gary RN RESIDENTIAL LAB BLOOD ORDERABLES Fi nal Result [facility] [place] [address] * (ABNORMAL) Blood gas, arterial (07/31/2024 9:57 AM CDT) pH, Art 7.42 7.35 - 7.45 PCO2, Arterial 30(L) 35 - 45 mmHg [facility] PO2, Arterial 185(H) 83 - 108 mmHg [facility] HCO3 Art (Calculated) 20 20 - 30 mmol/L [facility] BE, art -4 mmol/L [facility] Comment: Interpretive Data No Reference Range Established Current Interpretive Data was last revised on 2017 O2 Sat Art (Measured) 100(H) 90 - 95 % [facility] Blood 07/31/2024 9:57 AM CDT 07/31/2024 10:00 AM CDT Selvin Domínguez NP LAB BLOOD ORDERABLES Teetee keith Result [facility] [place] [address] * Critical Care (07/31/2024 8:58 AM CDT) [...] plan with the ICU team and other medical/it support consultant staff, making frequent assessments and decisions [...] left atrial appendage clipping. Right internal jugular Elmo-Clair catheter tip overlies the main pulmonary artery. [...] left atrial appendage clipping. Right internal jugular Elmo-Clair catheter tip overlies the main pulmonary artery. [...] signed by: Toyin Centeno M.D. Marilee Sandoval RN RESIDENTIAL IMG XR PROCEDURES Final Result * POCT glucose (07/31/2024 8:29 AM CDT) Glucose, POC 128 70 - 199 mg/dL Blood 07/31/2024 8:29 AM CDT 07/31/2024 8:29 AM CDT Nick Veliz MD LAB POCT ORDERABLES - DE VICE Final Result Performing Organization Address [facility] Phone Number [facility] Department [place] [address] * POCT glucose (07/31/2024 6:58 AM CDT) Glucose, POC 95 70 - 199 mg/dL Blood 07/31/2024 6:58 AM CDT 07/31/2024 6:58 AM CDT Nick Veliz MD LAB POCT ORDERABLES - DE VICE Final Result Performing Organization Address [facility] Phone Number [facility] Department [place] [address] * POCT glucose (07/31/2024 6:04 AM CDT) Glucose, POC 89 70 - 199 mg/dL Blood 07/31/2024 6:04 AM CDT 07/31/2024 6:04 AM CDT Nick Veliz MD LAB POCT ORDERABLES - DE VICE Final Result Performing Organization Address [facility] Phone Number [facility] [place] [address] * POCT glucose (07/31/2024 5:26 AM CDT) Glucose, POC 105 70 - 199 mg/dL Blood 07/31/2024 5:26 AM CDT 07/31/2024 5:26 AM CDT Nick Veliz MD LAB POCT ORDERABLES - [place] [address] * Oxyhemoglobin, pulmonary artery (07/31/2024 5:25 AM CDT) Oxyhemoglobin, PA 62.0 % Comment: Interpretive Data No reference range established. Current interpretive data was last revised 2019. Blood 07/31/2024 5:25 AM CDT 07/31/2024 5:33 AM CDT Selvin Domínguez RN RESIDENTIAL LAB BLOOD [place] [address] * (ABNORMAL) Hemoglobin total, pulmonary artery (07/31/2024 5:25 AM CDT) Hemoglobin total, PA 8.7(L) 13.0 - 17.5 g/dL Blood 07/31/2024 5:25 AM CDT 07/31/2024 5:33 AM CDT Arabella Gary RN RESIDENTIAL LAB BLOOD ORDERABLES Fi nal Result [facility] [place] [address] * (ABNORMAL) Lactate (07/31/2024 5:25 AM CDT) Lactate 2.3(H) 0.7 - 2.0 mmol/L Blood 07/31/2024 5:25 AM CDT 07/31/2024 5:36 AM CDT Selvin Domínguez RN RESIDENTIAL LAB BLOOD ORDERABLES Teetee l Result Performing Organization Address [facility] de Phone Number [facility] Department [place] [address] * (ABNORMAL) Blood gas, arterial (07/31/2024 5:25 AM CDT) pH, Art 7.46(H) 7.35 - 7.45 PCO2, Arterial 30(L) 35 - 45 mmHg [facility] PO2, Arterial 170(H) 83 - 108 mmHg [facility] HCO3 Art (Calculated) 22 20 - 30 mmol/L [facility] BE, art -2 mmol/L [facility] Comment: Interpretive Data No Reference Range Established Current Interpretive Data was last revised on 2017 O2 Sat Art (Measured) 100(H) 90 - 95 % [facility] Blood 07/31/2024 5:25 AM CDT 07/31/2024 5:32 AM CDT Selvin Domínguez NP LAB BLOOD ORDERABLES Teetee l Result Performing Organization Address [facility] Co de Phone Number [facility] Department [place] [address] * (ABNORMAL) POC Blood Gas and Chemistries, Arterial - (07/31/2024 4:15 AM CDT) pH, Art POC 7.42 7.35 - 7.45 pCO2, Art POC 33(L) 35 - 45 mmHg [facility] pO2, Art POC 173(H) 83 - 108 mmHg [facility] Na, POC 136 135 - 145 mmol/L [facility] K POC 4.5 3.3 - 4.9 mmol/L [facility] Comment: Interpretive Data Not all point of care methods assess for hemolysis. Confirm with instrument and retest K+ if not consistent with clinical signs and symptoms. Current Interpretive Data was last revised on 2023. Cl, POC 108 97 - 110 mmol/L [facility] Ionized Ca, POC 5.03 4.50 - 5.10 mg/dL [facility] Glucose, POC 126 70 - 199 mg/dL [facility] Lactate, POC 2.6(H) 0.7 - 2.0 mmol/L [facility] SO2 (vivian) arterial 98(H) 90 - 95 % [facility] Base excess, POC -2.6 mmol/L [facility] HCO3, Art POC 21 20 - 30 mmol/L [facility] Hct, POC 27.0(L) 41.4 - 51.6 % [facility] Total Hb, POC 9.0(L) 13.8 - 17.2 g/dL [facility] Blood 07/31/2024 4:15 AM CDT 07/31/2024 4:15 AM CDT Nick Veliz MD LAB POCT ORDERABLES - DE VICE Final Result Performing Organization Address City/[facility]/ZIP Co de Phone Number [facility] [place] [address] * Calcium, ionized, whole blood (07/31/2024 3:54 AM CDT) Ca, ionized, bld 4.75 4.50 - 5.10 mg/dL Blood 07/31/2024 3:54 AM CDT 07/31/2024 4:00 AM CDT us Arabella Gary NP LAB BLOOD ORDERABLES Fi nal Result [facility] [place] [address] * Oxyhemoglobin, pulmonary artery (07/31/2024 3:48 AM CDT) Oxyhemoglobin, PA 68.1 % Comment: Interpretive Data No reference range established. Current interpretive data was last revised 2019. Blood 07/31/2024 3:48 AM CDT 07/31/2024 4:00 AM CDT Selvin Domínguez RN RESIDENTIAL LAB BLOOD ORDERABLES Teetee l Result Performing Organization Address City/[facility]/[place] [address] * (ABNORMAL) Lactate (07/31/2024 3:48 AM CDT) [facility] Lactate 3.0(H) 0.7 - 2.0 mmol/L Blood 07/31/2024 3:48 AM CDT 07/31/2024 4:03 AM CDT Selvin Domínguez RN RESIDENTIAL LAB BLOOD ORDERABLES Teetee l Result Performing Organization Address [facility] Co de Phone Number [facility] [place] [address] * Potassium, whole blood (07/31/2024 3:48 AM CDT) Pathologist [facility] Potassium, bld 4.3 3.3 - 4.9 mmol/L Blood 07/31/2024 3:48 AM CDT 07/31/2024 4:00 AM CDT Arabella Gary RN RESIDENTIAL LAB BLOOD ORDERABLES Ed ited Result - Final Performing Organization Address City/[facility]/ZIP Co de Phone Number [facility] [place] [address] * (ABNORMAL) CBC without differential (07/31/2024 3:48 AM CDT) Pathologist [facility] WBC 11.63(H) 3.80 - 9.90 K/cumm Hgb 8.9(L) 13.0 - 17.5 g/dL [facility] Hct 26.0(L) 38.9 - 50.3 % [facility] Plt 114(L) 150 - 400 K/cumm [facility] MPV 10.8 9.1 - 12.3 fL [facility] RBC 2.64(L) 4.30 - 5.80 M/cumm [facility] MCV 98.5(H) 81.3 - 96.4 fL [facility] Comment:spoke to Kate chase RN MCV delta due to apparent blood transfusion. MCH 33.7(H) 27.1 - 33.3 pg [facility] MCHC 34.2 32.3 - 35.7 g/dL [facility] RDW CV 15.0(H) 11.1 - 14.9 % [facility] RDW SD 54.6(H) 35.7 - 48.1 fL [facility] NRBC abs 0.00 0.00 - 0.01 K/cumm [facility] Blood 07/31/2024 3:48 AM CDT 07/31/2024 4:03 AM CDT Arabella Gary NP LAB BLOOD ORDERABLES nal Result [facility] [place] [address] * (ABNORMAL) Blood gas, arterial (07/31/2024 3:48 AM CDT) Pathologist [facility] pH, Art 7.42 7.35 - 7.45 PCO2, Arterial 33(L) 35 - 45 mmHg [facility] PO2, Arterial 171(H) 83 - 108 mmHg [facility] HCO3 Art (Calculated) 22 20 - 30 mmol/L [facility] BE, art -2 mmol/L [facility] Comment: Interpretive Data No Reference Range Established Current Interpretive Data was last revised on 2017 O2 Sat Art (Measured) 100(H) 90 - 95 % [facility] Blood 07/31/2024 3:48 AM CDT 07/31/2024 4:00 AM CDT us Selvin Domínguez RN RESIDENTIAL LAB BLOOD ORDERABLES Teetee l Result Performing Organization Address City/[facility]/ZIP Co de Phone Number [facility] [place] [address] * POCT glucose (07/31/2024 3:44 AM CDT) Glucose, POC 129 70 - 199 mg/dL Blood 07/31/2024 3:44 AM CDT 07/31/2024 3:44 AM CDT Nick Veliz MD LAB POCT ORDERABLES - DE VICE Final Result Performing Organization Address [facility] Co de Phone Number [facility] [place] [address] * Transfuse RBC (07/31/2024 3:37 AM CDT) Blood Arabella Gary RN RESIDENTIAL BLOOD TRANSFUSION ORDER VAHID Final Result Performing Organization Address [facility] Co de Phone Number [facility] Department [place] [address] * POCT glucose (07/31/2024 2:11 AM CDT) Glucose, POC 151 70 - 199 mg/dL Blood 07/31/2024 2:11 AM CDT 07/31/2024 2:11 AM CDT Nick Veliz MD LAB POCT ORDERABLES - DE VICE Final Result Performing Organization Address City/[facility]/ZIP Co de Phone Number [facility] [place] [address] * POCT glucose (07/31/2024 1:08 AM CDT) Glucose, POC 161 70 - 199 mg/dL Blood 07/31/2024 1:08 AM CDT 07/31/2024 1:08 AM CDT Nick Veliz MD LAB POCT ORDERABLES - DE VICE Final Result Performing Organization Address [facility] [place] [address] * Oxyhemoglobin, central venous (07/30/2024 11:50 PM CDT) Oxyhemoglobin, CV 78.4 % Comment: Interpretive Data No reference range established. Current interpretive data was last revised 2019. Blood 07/30/2024 11:5 0 PM CDT 07/30/2024 11:56 PM CDT Selvin Domínguez NP LAB BLOOD ORDERABLES Teetee l Result Performing Organization Address [facility] de Phone Number [facility] [place] [address] * Oxyhemoglobin, pulmonary artery (07/30/2024 11:50 PM CDT) Oxyhemoglobin, PA 73.1 % Comment: Interpretive Data No reference range established. Current interpretive data was last revised 2019. Blood 07/30/2024 11:5 0 PM CDT 07/30/2024 11:57 PM CDT Selvin Domínguez NP LAB BLOOD ORDERABLES Teetee l Result Performing Organization Address [facility]/State/ZIP Co de Phone Number [facility] Department of [place] [address] * (ABNORMAL) Lactate (07/30/2024 11:50 PM CDT) [facility] Lactate 6.4(C) 0.7 - 2.0 mmol/L Blood 07/30/2024 11:5 0 PM CDT 07/31/2024 12:19 AM CDT us Marilee Sandoval RN RESIDENTIAL LAB BLOOD ORDERABLES Fin al Result [facility] [place] [address] * Potassium, whole blood (07/30/2024 11:50 PM CDT) [facility] Potassium, bld 4.3 3.3 - 4.9 mmol/L Blood 07/30/2024 11:5 0 PM CDT 07/30/2024 11:56 PM CDT us Arabella Gary RN RESIDENTIAL LAB BLOOD ORDERABLES Ed ited Result - Final [facility] [place] [address] * (ABNORMAL) eGFR (07/30/2024 11:50 PM CDT) [facility] eGFR 54(L) >=60 mL/min/1. 73 [...] 0 PM CDT 07/31/2024 12:20 AM CDT Selvin Domínguez RN RESIDENTIAL LAB BLOOD ORDERABLES Teetee l Result Performing Organization Address City/[facility] Co de Phone Number [facility] [place] [address] * Critical Result Callback Chemistry (07/30/2024 11:50 PM CDT) Date Notified [id number] Time Notified 47 [facility] TestName Lactate [facility] Called/Read Back Kim Torres [facility] Credentials RN [facility] Called By cvg [facility] Blood 07/30/2024 11:5 0 PM CDT 07/31/2024 12:19 AM CDT Marilee Sandoval RN RESIDENTIAL LAB BLOOD ORDERABLES Fin al Result Performing Organization Address City/[facility] Co de Phone Number [facility] Department [place] [address] * (ABNORMAL) CBC without differential (07/30/2024 11:50 PM CDT) WBC 14.50(H) 3.80 - 9.90 K/cumm Hgb 7.8(L) 13.0 - 17.5 g/dL [facility] Hct 23.0(L) 38.9 - 50.3 % [facility] Plt 114(L) 150 - 400 K/cumm [facility] MPV 11.0 9.1 - 12.3 fL [facility] RBC 2.21(L) 4.30 - 5.80 M/cumm [facility] MCV 104.1(H) 81.3 - 96.4 fL [facility] MCH 35.3(H) 27.1 - 33.3 pg [facility] MCHC 33.9 32.3 - 35.7 g/dL [facility] RDW CV 13.4 11.1 - 14.9 % [facility] RDW SD 51.2(H) 35.7 - 48.1 fL [facility] NRBC abs 0.00 0.00 - 0.01 K/cumm [facility] Blood 07/30/2024 11:5 0 PM CDT 07/31/2024 12:19 AM CDT Selvin Domínguez RN RESIDENTIAL LAB BLOOD ORDERABLES Teetee l Result Performing Organization Address City/[facility]/ZIP Co de Phone Number [facility] [place] [address] * Phosphorus (07/30/2024 11:50 PM CDT) Phosphorus, pl 3.0 2.3 - 4.5 mg/dL Blood 07/30/2024 11:5 0 PM CDT 07/31/2024 12:09 AM CDT Selvin Domínguez RN RESIDENTIAL LAB BLOOD ORDERABLES Teetee l Result [facility] [place] [address] * Magnesium (07/30/2024 11:50 PM CDT) Magnesium 2.4 1.4 - 2.5 mg/dL Blood 07/30/2024 11:5 0 PM CDT 07/31/2024 12:09 AM CDT Selvin Domínguez RN RESIDENTIAL LAB BLOOD ORDERABLES Teetee l Result [facility] [place] [address] * (ABNORMAL) Lactate dehydrogenase (LD) (07/30/2024 11:50 PM CDT) Lactate dehydrogenase (LDH) 505(H) 100 - 250 Units/L Blood 07/30/2024 11:5 0 PM CDT 07/31/2024 12:20 AM CDT Nick Veliz MD LAB BLOOD ORDERABLES Fin al Result Performing Organization Address [facility] Co de Phone Number [place] [address] * (ABNORMAL) Blood gas, arterial (07/30/2024 11:50 PM CDT) Pathologist [facility] pH, Art 7.36 7.35 - 7.45 PCO2, Arterial 34(L) 35 - 45 mmHg [facility] PO2, Arterial 166(H) 83 - 108 mmHg [facility] HCO3 Art (Calculated) 20 20 - 30 mmol/L [facility] BE, art -6 mmol/L [facility] Comment: Interpretive Data No Reference Range Established Current Interpretive Data was last revised on 2017 O2 Sat Art (Measured) 100(H) 90 - 95 % [facility] Blood 07/30/2024 11:5 0 PM CDT 07/30/2024 11:56 PM CDT Selvin Domínguez RN RESIDENTIAL LAB BLOOD ORDERABLES Teetee l Result Performing Organization Address [facility] Co de Phone Number [facility] [place] [address] * (ABNORMAL) Hepatic function panel (07/30/2024 11:50 PM CDT) Pathologist [facility] Bilirubin, total 0.9 0.1 - 1.2 mg/dL Bilirubin, direct 0.4(H) 0.1 - 0.3 mg/dL [facility] Protein, pl 5.2(L) 6.5 - 8.5 g/dL [facility] Albumin 3.6 3.5 - 5.0 g/dL [facility] Alk phos 31(L) 40 - 130 Units/L [facility] ALT 18 7 - 55 Units/L [facility] AST 134(H) 10 - 50 Units/L [facility] Blood 07/30/2024 11:5 0 PM CDT 07/31/2024 12:20 AM CDT Nick Veliz MD LAB BLOOD ORDERABLES Fin al Result [facility] [place] [address] * (ABNORMAL) Basic metabolic panel (07/30/2024 11:50 PM CDT) [facility] Sodium 138 135 - 145 mmol/L Potassium, pl 4.4 3.3 - 4.9 mmol/L [facility] Chloride 105 97 - 110 mmol/L [facility] CO2 21(L) 22 - 32 mmol/L [facility] Anion gap 12 2 - 15 mmol/L [facility] BUN 24 6 - 25 mg/dL [facility] Creatinine 1.38(H) 0.80 - 1.30 mg/dL [facility] Glucose 166 70 - 199 mg/dL [facility] Comment: Interpretive Data Fasting glucose [...] 2022. Calcium 9.0 8.5 - 10.3 mg/dL [facility] Blood 07/30/2024 11:5 0 PM CDT 07/31/2024 12:09 AM CDT Selvin Domínguez RN RESIDENTIAL LAB BLOOD ORDERABLES Teetee l Result Performing Organization Address City/[facility]/ZIP Co de Phone Number [facility] [place] [address] * POCT glucose (07/30/2024 11:49 PM CDT) Glucose, POC 167 70 - 199 mg/dL Blood 07/30/2024 11:4 9 PM CDT 07/30/2024 11:49 PM CDT Nick Veliz MD LAB POCT ORDERABLES - DE VICE Final Result Performing Organization Address [facility] Co de Phone Number [facility] [place] [address] * POCT glucose (07/30/2024 11:04 PM CDT) Glucose, POC 147 70 - 199 mg/dL Blood 07/30/2024 11:0 4 PM CDT 07/30/2024 11:04 PM CDT Nick Veliz MD LAB POCT ORDERABLES - DE VICE Final Result Performing Organization Address [facility] Co de Phone Number [facility] [place] [address] * Oxyhemoglobin, pulmonary artery (07/30/2024 9:42 PM CDT) Oxyhemoglobin, PA 76.6 % Comment: Interpretive Data No reference range established. Current interpretive data was last revised 2019. Blood 07/30/2024 9:42 PM CDT 07/30/2024 9:48 PM CDT Selvin Domínguez RN RESIDENTIAL LAB BLOOD ORDERABLES Teetee l Result Performing Organization Address [facility] Co de Phone Number [facility] [place] [address] * (ABNORMAL) Hemoglobin total, pulmonary artery (07/30/2024 9:42 PM CDT) Pathologist [facility] Hemoglobin total, PA 7.9(L) 13.0 - 17.5 g/dL Blood 07/30/2024 9:42 PM CDT 07/30/2024 9:48 PM CDT Arabella Gary RN RESIDENTIAL LAB BLOOD ORDERABLES Fi nal Result Performing Organization Address [facility] de Phone Number [facility] [place] [address] * (ABNORMAL) Blood gas, arterial (07/30/2024 9:42 PM CDT) Pathologist [facility] pH, Art 7.37 7.35 - 7.45 PCO2, Arterial 32(L) 35 - 45 mmHg [facility] PO2, Arterial 158(H) 83 - 108 mmHg [facility] HCO3 Art (Calculated) 19(L) 20 - 30 mmol/L [facility] BE, art -6 mmol/L [facility] Comment: Interpretive Data No Reference Range Established Current Interpretive Data was last revised on 2017 O2 Sat Art (Measured) 100(H) 90 - 95 % [facility] Blood 07/30/2024 9:42 PM CDT 07/30/2024 9:47 PM CDT Selvin Domínguez RN RESIDENTIAL LAB BLOOD ORDERABLES Teetee l Result Performing Organization Address [facility] Co de Phone Number [facility] [place] [address] * (ABNORMAL) POC Blood Gas and Chemistries, Arterial - (07/30/2024 9:30 PM CDT) Pathologist [facility] pH, Art POC 7.35 7.35 - 7.45 pCO2, Art POC 33(L) 35 - 45 mmHg [facility] pO2, Art POC 165(H) 83 - 108 mmHg [facility] Na, POC 137 135 - 145 mmol/L [facility] POC 3.8 3.3 - 4.9 mmol/L [facility] Comment: Interpretive Data Not all point of care methods assess for hemolysis. Confirm with instrument and retest K+ if not consistent with clinical signs and symptoms. Current Interpretive Data was last revised on 2023. Cl, POC 107 97 - 110 mmol/L [facility] Ionized Ca, POC 5.14(H) 4.50 - 5.10 mg/dL [facility] Glucose, POC 171 70 - 199 mg/dL [facility] Lactate, POC 6.3(C) 0.7 - 2.0 mmol/L [facility] SO2 (vivian) arterial 100(H) 90 - 95 % [facility] Base excess, POC -6.7 mmol/L [facility] HCO3, Art POC 18(L) 20 - 30 mmol/L [facility] Hct, POC 27.0(L) 41.4 - 51.6 % [facility] Total Hb, POC 9.1(L) 13.8 - 17.2 g/dL [facility] Blood 07/30/2024 9:30 PM CDT 07/30/2024 9:30 PM CDT us Nick Veliz MD LAB POCT ORDERABLES - DE VICE Final Result [facility] [place] [address] * POCT glucose (07/30/2024 9:09 PM CDT) Glucose, POC 180 70 - 199 mg/dL Blood 07/30/2024 9:09 PM CDT 07/30/2024 9:09 PM CDT Nick Veliz MD LAB POCT ORDERABLES - DE VICE Final Result Performing Organization Address [facility] Co de Phone Number [facility] [place] [address] * Transfuse RBC (07/30/2024 8:25 PM CDT) Blood Marilee Sandoval RN RESIDENTIAL BLOOD TRANSFUSION ORDERA BLES Final Result Performing Organization Address [facility] Co de Phone Number [facility] [place] [address] * Potassium, whole blood (07/30/2024 8:17 PM CDT) Potassium, bld 3.9 3.3 - 4.9 mmol/L Blood 07/30/2024 8:17 PM CDT 07/30/2024 8:22 PM CDT Arabella Gary RN RESIDENTIAL LAB BLOOD ORDERABLES Fi nal Result Performing Organization Address [facility] Co de Phone Number [facility] [place] [address] * POCT glucose (07/30/2024 8:16 PM CDT) Glucose, POC 187 70 - 199 mg/dL Blood 07/30/2024 8:16 PM CDT 07/30/2024 8:16 PM CDT Nick Veliz MD LAB POCT ORDERABLES - DE VICE Final Result Performing Organization Address [facility] Co de Phone Number [facility] [place] [address] * Hemoglobin, plasma (07/30/2024 7:20 PM CDT) Hemoglobin, Plasma 30 <=50 mg/dL Blood 07/30/2024 7:20 PM CDT 07/30/2024 7:39 PM CDT us Marilee Sandoval NP LAB BLOOD ORDERABLES Fin al Result [facility] [place] [address] * Critical Care (07/30/2024 6:57 PM CDT) Narrative Rebecca Alston MD - 07/30/2024 6:57 PM CDT Rebecca [...] plan with the ICU team and other medical/it support consultant staff, making frequent assessments and decisions [...] DE VICE Final Result Performing Organization Address [facility] Co de Phone Number [facility] [place] [address] * Prepare RBC: 1 Units (07/30/2024 6:13 PM CDT) [facility] Product code [id number] Unit Number [id number] [facility] Product Blood Type APOS [facility] Dispense Status PRESUMED TRANSFUSED [facility] Blood 07/30/2024 6:13 PM CDT 07/30/2024 6:13 PM CDT Narrative [facility] - 07/31/2024 4:00 PM CDT Are special requirements needed? (All products are leukoreduced and CMV- safe)- >No Date required:-[id number] LRRBC # of [id number] Reasons:-Cardiovascular disease, Hgb <8 g/dL} Marilee Sandoval NP BLOOD BANK PRODUCT ORDER VAHID Final Result Performing Organization Address City/[facility] Co de Phone Number [facility] [place] [address] * POCT glucose (07/30/2024 6:08 PM CDT) Glucose, POC 165 70 - 199 mg/dL Blood 07/30/2024 6:08 PM CDT 07/30/2024 6:08 PM CDT Nick Veliz MD LAB POCT ORDERABLES - DE VICE Final Result [facility] [place] [address] * XR Chest 1 View (07/30/2024 6:00 [...] it. Electronically signed by: Maury Jaeger M.D. [facility] MD IMG XR PROCEDURES Final Result [...] clip. Aortic valve replacement. Median sternotomy wires. Elmo-Clair catheter position with tip in the main [...] clip. Aortic valve replacement. Median sternotomy wires. Elmo-Clair catheter position with tip in the main pulmonary artery. Epicardial pacing wires. Pericardial and mediastinal drains. Bilateral thoracostomy tubes. Dictated by: Fernanda Levi M.D. The radiology attending physician has personally reviewed this study, and had reviewed and/or edited this written report and agrees with it. Electronically signed by: Daja Dozier M.D. Selvin Domínguez NP IMG XR PROCEDURES Final [...] CDT 07/30/2024 5:55 PM CDT Selvin Domínguez NP LAB BLOOD ORDERABLES Teetee l Result [facility] [place] [address] * (ABNORMAL) CBC without differential (07/30/2024 5:36 PM CDT) WBC 21.35(H) 3.80 - 9.90 K/cumm Hgb 7.8(L) 13.0 - 17.5 g/dL [facility] Comment:Hemoglobin delta due to apparent blood transfusion. Hct 23.6(L) 38.9 - 50.3 % [facility] Plt 129(L) 150 - 400 K/cumm [facility] Comment:No clot detected in sample. MPV 10.9 9.1 - 12.3 fL [facility] RBC 2.19(L) 4.30 - 5.80 M/cumm [facility] MCV 107.8(H) 81.3 - 96.4 fL [facility] MCH 35.6(H) 27.1 - 33.3 pg [facility] MCHC 33.1 32.3 - 35.7 g/dL [facility] RDW CV 12.3 11.1 - 14.9 % [facility] RDW SD 48.5(H) 35.7 - 48.1 fL [facility] NRBC abs 0.00 0.00 - 0.01 K/cumm [facility] Blood 07/30/2024 5:36 PM CDT 07/30/2024 5:55 PM CDT Selvin Domínguez RN RESIDENTIAL LAB BLOOD ORDERABLES Teetee l Result Performing Organization Address City/[facility]/ZIP Co de Phone Number [facility] [place] [address] * Type and screen (07/30/2024 5:36 PM CDT) ABO Rh A Positive Kumar, indirect Negative [facility] Blood 07/30/2024 5:36 PM CDT 07/30/2024 5:56 PM CDT Narrative [facility] - 07/30/2024 7:37 PM CDT Has the patient had Daratumumab or Isatuximab in the past 6 months?->Unknown Nick Veliz MD LAB BLOOD BANK TEST ORDE GERBER Final Result [facility] [place] [address] * (ABNORMAL) Phosphorus (07/30/2024 5:36 PM CDT) Phosphorus, pl 4.6(H) 2.3 - 4.5 mg/dL Blood 07/30/2024 5:36 PM CDT 07/30/2024 5:43 PM CDT Selvin Domínguez RN RESIDENTIAL LAB BLOOD ORDERABLES Teetee l Result Performing Organization Address [facility] Co de Phone Number [facility] [place] [address] * Magnesium (07/30/2024 5:36 PM CDT) Magnesium 2.5 1.4 - 2.5 mg/dL Blood 07/30/2024 5:36 PM CDT 07/30/2024 5:43 PM CDT Selvin Domínguez NP LAB BLOOD ORDERABLES Teetee l Result Performing Organization Address [facility] de Phone Number [facility] [place] [address] * (ABNORMAL) Lactate dehydrogenase (LD) (07/30/2024 5:36 PM CDT) Lactate dehydrogenase (LDH) 550(H) 100 - 250 Units/L Blood 07/30/2024 5:36 PM CDT 07/30/2024 5:43 PM CDT Nick Veliz MD LAB BLOOD ORDERABLES Fin al Result Performing Organization Address [facility] Co de Phone Number [facility] [place] [address] * (ABNORMAL) Hepatic function panel (07/30/2024 5:36 PM CDT) Bilirubin, total 1.5(H) 0.1 - 1.2 mg/dL Bilirubin, direct 0.6(H) 0.1 - 0.3 mg/dL [facility] Protein, pl 5.5(L) 6.5 - 8.5 g/dL [facility] Albumin 3.4(L) 3.5 - 5.0 g/dL [facility] Alk phos 33(L) 40 - 130 Units/L [facility] ALT 22 7 - 55 Units/L [facility] AST 161(H) 10 - 50 Units/L [facility] Comment:Reviewed Blood 07/30/2024 5:36 PM CDT 07/30/2024 5:43 PM CDT Nick Veliz MD LAB BLOOD ORDERABLES Fin al Result [facility] [place] [address] * (ABNORMAL) Basic metabolic panel (07/30/2024 5:36 PM CDT) [facility] Sodium 137 135 - 145 mmol/L Potassium, pl 3.9 3.3 - 4.9 mmol/L [facility] Chloride 102 97 - 110 mmol/L [facility] CO2 22 22 - 32 mmol/L [facility] Anion gap 13 2 - 15 mmol/L [facility] BUN 22 6 - 25 mg/dL [facility] Creatinine 1.36(H) 0.80 - 1.30 mg/dL [facility] Glucose 180 70 - 199 mg/dL [facility] Comment: Interpretive Data Fasting glucose [...] 2022. Calcium 9.1 8.5 - 10.3 mg/dL [facility] Blood 07/30/2024 5:36 PM CDT 07/30/2024 5:43 PM CDT Selvin Domínguez RN RESIDENTIAL LAB BLOOD ORDERABLES Teetee keith Result [facility] [place] [address] * (ABNORMAL) POC Blood Gas and Chemistries, Arterial - (07/30/2024 5:20 PM CDT) pH, Art POC 7.32(L) 7.35 - 7.45 pCO2, Art POC 40 35 - 45 mmHg [facility] pO2, Art POC 303(H) 83 - 108 mmHg [facility] Na, POC 137 135 - 145 mmol/L [facility] K POC 3.8 3.3 - 4.9 mmol/L [facility] Comment: Interpretive Data Not all point of care methods assess for hemolysis. Confirm with instrument and retest K+ if not consistent with clinical signs and symptoms. Current Interpretive Data was last revised on 2023. Cl, POC 106 97 - 110 mmol/L [facility] Ionized Ca, POC 4.81 4.50 - 5.10 mg/dL [facility] Glucose, POC 172 70 - 199 mg/dL [facility] Lactate, POC 4.0(C) 0.7 - 2.0 mmol/L [facility] SO2 (vivian) arterial 100(H) 90 - 95 % [facility] Base excess, POC -5.1 mmol/L [facility] HCO3, Art POC 21 20 - 30 mmol/L [facility] Hct, POC 26.0(L) 41.4 - 51.6 % [facility] Total Hb, POC 8.5(L) 13.8 - 17.2 g/dL [facility] Blood 07/30/2024 5:20 PM CDT 07/30/2024 5:20 PM CDT Nick Veliz MD LAB POCT ORDERABLES - DE VICE Final Result Performing Organization Address [facility] Co de Phone Number [facility] [place] [address] * aPTT (07/30/2024 5:09 PM CDT) aPTT [...] ORDERABLES Teetee l Result Performing Organization Address [facility] de Phone Number [facility] [place] [address] * (ABNORMAL) Protime-INR (07/30/2024 5:09 PM CDT) PT 16.5(H) 9.7 - 13.0 sec INR 1.51(H) 0.90 - 1.20 [facility] Comment: Interpretive data Oral anticoagulant [...] ORDERABLES Teetee l Result Performing Organization Address [facility] Co de Phone Number [facility] [place] [address] * Critical Care (07/30/2024 5:00 PM CDT) Narrative Rebecca Alston MD - 07/30/2024 5:00 PM CDT Rebecca Alston MD 07/31/2024 11:07 AM Critical Care Performed by: Marilee Sandoval NP Authorized by: Marilee Sandoval NP CRITICAL CARE: Team: [facility] Shift: AM Level of Billing: Critical Care [...] plan with the ICU team and other medical/it support consultant staff, making frequent assessments and decisions [...] in the medical record us Marilee Sandoval RN RESIDENTIAL IN CLINIC/BEDSIDE ORDERA BLES Final Result * ABLATE ADDTL ARRHYTHMIA ATRIA OR VENT (07/30/2024 4:56 PM CDT) Anatomical Region Laterality Modality X-Ray Angiograph y Narrative 07/30/2024 5:30 PM CDT Please see OpNote for result. us Nick Veliz MD CV ELECTROPHYSIOLOGY PRO CS Final Result * Transfuse plasma (07/30/2024 4:49 PM CDT) Blood us Abhi Martinez MD BLOOD TRANSFUSION OR DERABLES Final Result [facility] [place] [address] * Transfuse platelets (07/30/2024 4:47 PM CDT) Blood Abhi Martinez MD BLOOD TRANSFUSION [place] [address] * (ABNORMAL) POCT prothrombin time (07/30/2024 4:30 PM CDT) PT, POC 28.1(H) 11.7 - 16.6 sec INR, POC 2.2(H) 0.9 - 1.2 [facility] Blood 07/30/2024 4:30 PM CDT 07/30/2024 4:30 PM CDT Result [facility] Nick Veliz MD LAB POCT ORDERABLES - DE VICE Final Result Performing Organization Address City/[facility]/[place] [address] * (ABNORMAL) POCT Partial thromboplastin time (PTT) (07/30/2024 4:30 PM CDT) APTT, POC 48.8(H) 32.5 - 46.1 sec Blood 07/30/2024 4:30 PM CDT 07/30/2024 4:30 PM CDT Result [facility] Nick Veliz MD LAB POCT ORDERABLES - DE VICE Final Result [facility] [place] [address] * (ABNORMAL) POCT hemoglobin, hematocrit and platelet count (07/30/2024 4:29 PM CDT) [facility] Hgb, POC 8.7(L) 13.0 - 17.5 g/dL Hematocrit POC 26.7(L) 38.9 - 50.3 % [facility] Platelet POC 128(L) 150 - 400 K/cumm [facility] Blood 07/30/2024 4:29 PM CDT 07/30/2024 4:29 PM CDT Nick Veliz MD LAB POCT ORDERABLES - DE VICE Final Result Performing Organization Address City/[facility]/ZIP Co de Phone Number [facility] [place] [address] * Prepare platelets: 1 Units (07/30/2024 4:26 PM CDT) [facility] Product code [id number] Unit Number [id number] [facility] Product Blood Type APOS [facility] Dispense Status PRESUMED TRANSFUSED [facility] Blood Venous blood specimen / Unknown 07/30/2024 4:26 PM CDT 07/30/2024 4:26 PM CDT Narrative [facility] - 07/31/2024 8:02 AM CDT Specify Procedure:->cardiac surgery Are special requirements needed? (all products are leukoreduced)->No Date required:-[id number] PLT # of Units:-1-Units Reasons:-Hold for procedure (specify procedure)} Abhi Martinez MD BLOOD BANK PRODUCT O RDERABLES Final Result [facility] [place] [address] * Prepare plasma: 1 Units (07/30/2024 4:26 PM CDT) [facility] Product code [id number] Unit Number [id number] [facility] Product Blood Type APOS [facility] Dispense Status PRESUMED TRANSFUSED [facility] Blood Venous blood specimen / Unknown 07/30/2024 4:26 PM CDT 07/30/2024 4:26 PM CDT Narrative [facility] - 07/31/2024 8:02 AM CDT Date required:-[id number] FFP # of Units:-1-Units Reasons:-Immediate need for surgical intervention Abhi Martinez MD BLOOD BANK PRODUCT O RDERABLES Final Result Performing Organization Address City/[facility]/ZIP Co de Phone Number [facility] Department [place] [address] * POCT glucose (07/30/2024 3:51 PM CDT) Pathologist [facility] Glucose, POC 185 70 - 199 mg/dL Blood 07/30/2024 3:51 PM CDT 07/30/2024 3:51 PM CDT Nick Veliz MD LAB POCT ORDERABLES - DE VICE Final Result Performing Organization Address [facility] Co de Phone Number [facility] Department [place] [address] * (ABNORMAL) POC Blood Gas and Chemistries, Arterial - (07/30/2024 3:51 PM CDT) pH, Art POC 7.29(L) 7.35 - 7.45 pCO2, Art POC 42 35 - 45 mmHg [facility] pO2, Art POC 329(H) 83 - 108 mmHg [facility] Na, POC 136 135 - 145 mmol/L [facility] K POC 3.8 3.3 - 4.9 mmol/L [facility] Comment: Interpretive Data Not all point of care methods assess for hemolysis. Confirm with instrument and retest K+ if not consistent with clinical signs and symptoms. Current Interpretive Data was last revised on 2023. Cl, POC 109 97 - 110 mmol/L [facility] Ionized Ca, POC 4.51 4.50 - 5.10 mg/dL [facility] Glucose, POC Incalculable 70 - 199 mg/dL [facility] Lactate, POC 3.1(H) 0.7 - 2.0 mmol/L [facility] SO2 (vivian) arterial 100(H) 90 - 95 % [facility] Base excess, POC -6.0 mmol/L [facility] HCO3, Art POC 20 20 - 30 mmol/L [facility] Hct, POC 29.0(L) 41.4 - 51.6 % [facility] Total Hb, POC 9.8(L) 13.8 - 17.2 g/dL [facility] Blood 07/30/2024 3:51 PM CDT 07/30/2024 3:51 PM CDT Nick Veliz MD LAB POCT ORDERABLES - DE VICE Final Result Performing Organization Address [facility] Co de Phone Number [facility] [place] [address] * Transfuse cryoprecipitate (pooled units) (07/30/2024 3:35 PM CDT) Blood Abhi Martinez MD BLOOD TRANSFUSION OR DERABLES Final Result Performing Organization Address [facility]/ZIP Co de Phone Number [facility] [place] [address] * Transfuse cryoprecipitate (pooled units) (07/30/2024 3:35 PM CDT) Blood Abhi Martinez MD BLOOD TRANSFUSION OR DERABLES Final Result Performing Organization Address [facility]/ZIP Co de Phone Number [facility] [place] [address] * Prepare cryoprecipitate (pooled units): 2 Units (07/30/2024 3:11 PM CDT) [facility] Signature Product code [id number] Unit Number [id number] [facility] Product Blood [facility] APOS [facility] Dispense Status PRESUMED TRANSFUSED [facility] Product code [id number] [facility] Unit Number [id number] [facility] Product Blood Type APOS [facility] Dispense Status PRESUMED TRANSFUSED [facility] Blood Venous blood specimen / Unknown 07/30/2024 3:11 PM CDT 07/30/2024 3:11 PM CDT Narrative [facility] - 07/31/2024 8:02 AM CDT Other indication->post bypass Cryo # of [id number] Reasons:-Other (Specify)} Abhi Martinez MD BLOOD BANK PRODUCT O RDERABLES Final Result [facility] [place] [address] * (ABNORMAL) POC Blood Gas and Chemistries, Arterial - (07/30/2024 2:56 PM CDT) Pathologist [facility] pH, Art POC 7.32(L) 7.35 - 7.45 pCO2, Art POC 40 35 - 45 mmHg [facility] pO2, Art POC 430(H) 83 - 108 mmHg [facility] Na, POC 135 135 - 145 mmol/L [facility] K POC 3.9 3.3 - 4.9 mmol/L [facility] Comment: Interpretive Data Not all point of care methods assess for hemolysis. Confirm with instrument and retest K+ if not consistent with clinical signs and symptoms. Current Interpretive Data was last revised on 2023. Cl, POC 108 97 - 110 mmol/L [facility] Ionized Ca, POC 4.70 4.50 - 5.10 mg/dL [facility] Glucose, POC Incalculable 70 - 199 mg/dL [facility] Lactate, POC 2.9(H) 0.7 - 2.0 mmol/L [facility] SO2 (vivian) arterial 100(H) 90 - 95 % [facility] Base excess, POC -5.1 mmol/L [facility] HCO3, Art POC 21 20 - 30 mmol/L [facility] Hct, POC 33.0(L) 41.4 - 51.6 % [facility] Total Hb, POC 10.9(L) 13.8 - 17.2 g/dL [facility] Blood 07/30/2024 2:56 PM CDT 07/30/2024 2:56 PM CDT Nick Veliz MD LAB POCT ORDERABLES - DE VICE Final Result Performing Organization Address [facility] Co de Phone Number [facility] [place] [address] * (ABNORMAL) POCT prothrombin time (07/30/2024 2:27 PM CDT) PT, POC 34.3(H) 11.7 - 16.6 sec INR, POC 2.6(H) 0.9 - 1.2 [facility] Blood 07/30/2024 2:27 PM CDT 07/30/2024 2:27 PM CDT Nick Veliz MD LAB POCT ORDERABLES - DE VICE Final Result Performing Organization Address [facility] Co de Phone Number [facility] [place] [address] * (ABNORMAL) POCT heparin/ACT CPB (07/30/2024 2:26 PM CDT) Heparin POC 0.0 units/mL ACT, CPB 110(L) 112 - 174 sec [facility] Blood 07/30/2024 2:26 PM CDT 07/30/2024 2:26 PM CDT Nick Veliz MD LAB POCT ORDERABLES - DE VICE Final Result Performing Organization Address [facility] Co de Phone Number [facility] [place] [address] * POCT Partial thromboplastin time (PTT) (07/30/2024 2:26 PM CDT) APTT, POC 36.6 32.5 - 46.1 sec Blood 07/30/2024 2:26 PM CDT 07/30/2024 2:26 PM CDT Nick Veliz MD LAB POCT ORDERABLES - DE VICE Final Result Performing Organization Address [facility] Co de Phone Number [facility] [place] [address] * POCT glucose (07/30/2024 2:26 PM CDT) [facility] Glucose, POC 177 70 - 199 mg/dL Blood 07/30/2024 2:26 PM CDT 07/30/2024 2:26 PM CDT Nick Veliz MD LAB POCT ORDERABLES - DE VICE Final Result Performing Organization Address [facility] de Phone Number [facility] [place] [address] * (ABNORMAL) POCT hemoglobin, hematocrit and platelet count (07/30/2024 2:25 PM CDT) [facility] Signature Hgb, POC 9.3(L) 13.0 - 17.5 g/dL Hematocrit POC 28.4(L) 38.9 - 50.3 % [facility] Platelet POC 118(L) 150 - 400 K/cumm [facility] Blood 07/30/2024 2:25 PM CDT 07/30/2024 2:25 PM CDT Nick Veliz MD LAB POCT ORDERABLES - DE VICE Final Result Performing Organization Address City/[facility] Co de Phone Number [facility] Department [place] [address] * (ABNORMAL) POC Blood Gas and Chemistries, Arterial - (07/30/2024 2:24 PM CDT) pH, Art POC 7.36 7.35 - 7.45 pCO2, Art POC 37 35 - 45 mmHg [facility] pO2, Art POC 313(H) 83 - 108 mmHg [facility] Na, POC 135 135 - 145 mmol/L [facility] K POC 4.2 3.3 - 4.9 mmol/L [facility] Comment: Interpretive Data Not all point of care methods assess for hemolysis. Confirm with instrument and retest K+ if not consistent with clinical signs and symptoms. Current Interpretive Data was last revised on 2023. Cl, POC 107 97 - 110 mmol/L [facility] Ionized Ca, POC 5.05 4.50 - 5.10 mg/dL [facility] Glucose, POC Incalculable 70 - 199 mg/dL [facility] Lactate, POC 3.5(H) 0.7 - 2.0 mmol/L [facility] SO2 (vivian) arterial 99(H) 90 - 95 % [facility] Base excess, POC -4.1 mmol/L [facility] HCO3, Art POC 21 20 - 30 mmol/L [facility] Hct, POC 29.0(L) 41.4 - 51.6 % [facility] Total Hb, POC 9.8(L) 13.8 - 17.2 g/dL [facility] Blood 07/30/2024 2:24 PM CDT 07/30/2024 2:24 PM CDT Nick Veliz MD LAB POCT ORDERABLES - DE VICE Final Result [facility] [place] [address] * (ABNORMAL) POCT heparin/ACT CPB (07/30/2024 1:37 PM CDT) Heparin POC <2.8 units/mL ACT, CPB 518(H) 112 - 174 sec [facility] Blood 07/30/2024 1:37 PM CDT 07/30/2024 1:37 PM CDT Nick Veliz MD LAB POCT ORDERABLES - DE VICE Final Result [facility] [place] [address] * (ABNORMAL) POC Blood Gas and Chemistries, Arterial - (07/30/2024 1:34 PM CDT) pH, Art POC 7.45 7.35 - 7.45 pCO2, Art POC 35 35 - 45 mmHg [facility] pO2, Art POC 299(H) 83 - 108 mmHg [facility] Na, POC 134(L) 135 - 145 mmol/L [facility] K POC 5.0(H) 3.3 - 4.9 mmol/L [facility] Comment: Interpretive Data Not all point of care methods assess for hemolysis. Confirm with instrument and retest K+ if not consistent with clinical signs and symptoms. Current Interpretive Data was last revised on 2023. Cl, POC 107 97 - 110 mmol/L [facility] Ionized Ca, POC 4.51 4.50 - 5.10 mg/dL [facility] Glucose, POC Incalculable 70 - 199 mg/dL [facility] Lactate, POC 1.2 0.7 - 2.0 mmol/L [facility] SO2 (vivian) arterial 100(H) 90 - 95 % [facility] Base excess, POC 0.5 mmol/L [facility] HCO3, Art POC 24 20 - 30 mmol/L [facility] Hct, POC 29.0(L) 41.4 - 51.6 % [facility] Total Hb, POC 9.6(L) 13.8 - 17.2 g/dL [facility] Blood 07/30/2024 1:34 PM CDT 07/30/2024 1:34 PM CDT Nick Veliz MD LAB POCT ORDERABLES - DE VICE Final Result Performing Organization Address City/[facility]/ZIP Co de Phone Number [facility] [place] [address] * (ABNORMAL) POCT heparin/ACT CPB (07/30/2024 1:05 PM CDT) [facility] Heparin POC 3.4 units/mL ACT, CPB 574(H) 112 - 174 sec [facility] Blood 07/30/2024 1:05 PM CDT 07/30/2024 1:05 PM CDT Nick Veliz MD LAB POCT ORDERABLES - DE VICE Final Result Performing Organization Address [facility] de Phone Number [facility] [place] [address] * (ABNORMAL) POC Blood Gas and Chemistries, Arterial - (07/30/2024 1:02 PM CDT) [facility] pH, Art POC 7.28(L) 7.35 - 7.45 pCO2, Art POC 59(H) 35 - 45 mmHg [facility] pO2, Art POC 268(H) 83 - 108 mmHg [facility] Na, POC 136 135 - 145 mmol/L [facility] K POC 4.6 3.3 - 4.9 mmol/L [facility] Comment: Interpretive Data Not all point of care methods assess for hemolysis. Confirm with instrument and retest K+ if not consistent with clinical signs and symptoms. Current Interpretive Data was last revised on 2023. Cl, POC 105 97 - 110 mmol/L [facility] Ionized Ca, POC 4.61 4.50 - 5.10 mg/dL [facility] Glucose, POC Incalculable 70 - 199 mg/dL [facility] Lactate, POC 0.9 0.7 - 2.0 mmol/L [facility] SO2 (vivian) arterial 100(H) 90 - 95 % [facility] Base excess, POC 0.3 mmol/L [facility] HCO3, Art POC 28 20 - 30 mmol/L [facility] Hct, POC 29.0(L) 41.4 - 51.6 % [facility] Total Hb, POC 9.7(L) 13.8 - 17.2 g/dL [facility] Blood 07/30/2024 1:02 PM CDT 07/30/2024 1:02 PM CDT Nick Veliz MD LAB POCT ORDERABLES - DE VICE Final Result [facility] Department [place] [address] * Surgical pathology (07/30/2024 1:00 PM CDT) Tissue (Heart Valve) 07/30/2024 1:00 PM CDT Narrative PATHOLOGY [facility] - 08/02/2024 11:28 PM CDT EPIC results best viewed via link to PDF [facility] [place] [address] Note to Patients: This report may contain [...] Gender: M : 1950 (Age: 73) Address: [address] [place] [address] [place] [address] Hospital #: [id number] Taken:07/30/2024 Received:07/30/2024 Reported: 08/02/2024 Patient Type: [facility] Inpatient Service: Medical Location: [facility] I056 Physician(s): MD Juanito Ugalde M.D. Diagnosis: Heart, aortic valve, replacement - Fibrosis with dystrophic calcifications - No evidence of endocarditis jhr/08/02/2024 23:28 By this signature, I attest that [...] crespo-yellow tissue fragments. They are sectioned and student services representative sections are submitted in A1 following acid decalcification. Jar 1. dxb/07/31/2024 12:12 PA(s): FRANCHESCA Pepper, NATHALY([facility])CM By this signature, I attest that the above diagnosis is based upon my personal examination of the slides(and/or other material). Addenda/Procedures The performance characteristics of some immunohistochemical stains, fluorescence in-situ hybridization tests and immunophenotyping by flow cytometry cited in this report (if any) were determined by the Surgical Pathology and Flow Cytometry Departments at [facility] as part of an ongoing quality compliance manager program and in compliance with federally mandated [...] Surgical Pathology and Flow Cytometry Departments of [facility]. It has not been cleared or approved by the U. S. Food and Drug Administration. IMAGES AND SCANNED DOCUMENTS, IF INCLUDED, ONLY VIEWABLE IN PDF VERSION OF REPORT Nick Veliz MD LAB PATHOLOGY ORDERABLES Final Result PATHOLOGY [facility] 3rd Floor [place], [place] [phone] * POCT glucose (07/30/2024 12:39 PM CDT) Glucose, POC 152 70 - 199 mg/dL Blood 07/30/2024 12:3 9 PM CDT 07/30/2024 12:39 PM CDT Nick Veliz MD LAB POCT ORDERABLES - DE VICE Final Result Performing Organization Address [facility] Co de Phone Number [facility] [place] [address] * (ABNORMAL) POCT heparin/ACT CPB (07/30/2024 12:38 PM CDT) Heparin POC <2.8 units/mL ACT, CPB 528(H) 112 - 174 sec [facility] Blood 07/30/2024 12:3 8 PM CDT 07/30/2024 12:38 PM CDT Nick Veliz MD LAB POCT ORDERABLES - DE VICE Final Result Performing Organization Address City/[facility] Co de Phone Number [facility] [place] [address] * (ABNORMAL) POC Blood Gas and Chemistries, Arterial - (07/30/2024 12:34 PM CDT) pH, Art POC 7.45 7.35 - 7.45 pCO2, Art POC 37 35 - 45 mmHg [facility] pO2, Art POC 349(H) 83 - [address] [facility] Na, POC 134(L) 135 - 145 mmol/L [facility] K POC 4.9 3.3 - 4.9 mmol/L [facility] Comment: Interpretive Data Not all point of care methods assess for hemolysis. Confirm with instrument and retest K+ if not consistent with clinical signs and symptoms. Current Interpretive Data was last revised on 2023. Cl, POC 107 97 - 110 mmol/L [facility] Ionized Ca, POC 4.43(L) 4.50 - 5.10 mg/dL [facility] Glucose, POC Incalculable 70 - 199 mg/dL [facility] Lactate, POC 1.0 0.7 - 2.0 mmol/L [facility] SO2 (vivian) arterial 100(H) 90 - 95 % [facility] Base excess, POC 1.7 mmol/L [facility] HCO3, Art POC 26 20 - 30 mmol/L [facility] Hct, POC 29.0(L) 41.4 - 51.6 % [facility] Total Hb, POC 9.8(L) 13.8 - 17.2 g/dL [facility] Blood 07/30/2024 12:3 4 PM CDT 07/30/2024 12:34 PM CDT Nick Veliz MD LAB POCT ORDERABLES - DE VICE Final Result [facility] Department [place] [address] * (ABNORMAL) POCT heparin/ACT CPB (07/30/2024 12:18 PM CDT) Heparin POC <2.8 units/mL ACT, CPB 573(H) 112 - 174 sec [facility] Blood 07/30/2024 12:1 8 PM CDT 07/30/2024 12:18 PM CDT us Nick Veliz MD LAB POCT ORDERABLES - DE VICE Final Result Performing Organization Address [facility] Co de Phone Number [facility] [place] [address] * POCT glucose (07/30/2024 11:46 AM CDT) Glucose, POC 154 70 - 199 mg/dL Blood 07/30/2024 11:4 6 AM CDT 07/30/2024 11:46 AM CDT us Nick Veliz MD LAB POCT ORDERABLES - DE VICE Final Result Performing Organization Address [facility] Phone Number [facility] [place] [address] * (ABNORMAL) POCT heparin/ACT CPB (07/30/2024 11:44 AM CDT) Heparin POC 3.4 units/mL ACT, CPB 573(H) 112 - 174 sec [facility] Blood 07/30/2024 11:4 4 AM CDT 07/30/2024 11:44 AM CDT Nick Veliz MD LAB POCT ORDERABLES - DE VICE Final Result Performing Organization Address [facility] de Phone Number [facility] [place] [address] * (ABNORMAL) POC Blood Gas and Chemistries, Arterial - (07/30/2024 11:42 AM CDT) pH, Art POC 7.44 7.35 - 7.45 pCO2, Art POC 37 35 - 45 mmHg [facility] pO2, Art POC 361(H) 83 - 108 mmHg [facility] Na, POC 135 135 - 145 mmol/L [facility] K POC 4.8 3.3 - 4.9 mmol/L [facility] Comment: Interpretive Data Not all point of care methods assess for hemolysis. Confirm with instrument and retest K+ if not consistent with clinical signs and symptoms. Current Interpretive Data was last revised on 2023. Cl, POC 106 97 - 110 mmol/L [facility] Ionized Ca, POC 4.38(L) 4.50 - 5.10 mg/dL [facility] Glucose, POC Incalculable 70 - 199 mg/dL [facility] Lactate, POC 1.1 0.7 - 2.0 mmol/L [facility] SO2 (vivian) arterial 100(H) 90 - 95 % [facility] Base excess, POC 1.0 mmol/L [facility] HCO3, Art POC 25 20 - 30 mmol/L [facility] Hct, POC 30.0(L) 41.4 - 51.6 % [facility] Total Hb, POC 10.1(L) 13.8 - 17.2 g/dL [facility] Blood 07/30/2024 11:4 2 AM CDT 07/30/2024 11:42 AM CDT Nick Veliz MD LAB POCT ORDERABLES - DE VICE Final Result Performing Organization Address City/[facility]/ZIP Co de Phone Number [facility] [employer] [place] [address] * POCT glucose (07/30/2024 11:18 AM CDT) [facility] Glucose, POC 145 70 - 199 mg/dL Blood 07/30/2024 11:1 8 AM CDT 07/30/2024 11:18 AM CDT Nick Veliz MD LAB POCT ORDERABLES - DE VICE Final Result Performing Organization Address City/[facility]/ZIP Co de Phone Number [facility] Department [place] [address] * (ABNORMAL) POCT heparin/ACT CPB (07/30/2024 11:08 AM CDT) Heparin POC 4.1 units/mL ACT, CPB 633(H) 112 - 174 sec [facility] Blood 07/30/2024 11:0 8 AM CDT 07/30/2024 11:08 AM CDT Nick Veliz MD LAB POCT ORDERABLES - DE VICE Final Result [facility] [place] [address] * (ABNORMAL) POC Blood Gas and Chemistries, Arterial - (07/30/2024 11:07 AM CDT) pH, Art POC 7.35 7.35 - 7.45 pCO2, Art POC 45 35 - 45 mmHg [facility] pO2, Art POC 147(H) 83 - 108 mmHg [facility] Na, POC 135 135 - 145 mmol/L [facility] K POC 4.2 3.3 - 4.9 mmol/L [facility] Comment: Interpretive Data Not all point of care methods assess for hemolysis. Confirm with instrument and retest K+ if not consistent with clinical signs and symptoms. Current Interpretive Data was last revised on 2023. Cl, POC 105 97 - 110 mmol/L [facility] Ionized Ca, POC 4.41(L) 4.50 - 5.10 mg/dL [facility] Glucose, POC Incalculable 70 - 199 mg/dL [facility] Lactate, POC 2.4(H) 0.7 - 2.0 mmol/L [facility] SO2 (vivian) arterial 99(H) 90 - 95 % [facility] Base excess, POC -1.0 mmol/L [facility] HCO3, Art POC 25 20 - 30 mmol/L [facility] Hct, POC 31.0(L) 41.4 - 51.6 % [facility] Total Hb, POC 10.4(L) 13.8 - 17.2 g/dL [facility] Blood 07/30/2024 11:0 7 AM CDT 07/30/2024 11:07 AM CDT us Nick Veliz MD LAB POCT ORDERABLES - DE VICE Final Result Performing Organization Address [facility] Co de Phone Number [facility] [place] [address] * (ABNORMAL) POCT heparin/ACT CPB (07/30/2024 10:10 AM CDT) Pathologist [facility] Heparin POC >4.7 units/mL ACT, CPB 548(H) 112 - 174 sec [facility] Blood 07/30/2024 10:1 0 AM CDT 07/30/2024 10:10 AM CDT Nick Veliz MD LAB POCT ORDERABLES - DE VICE Final Result Performing Organization Address [facility] de Phone Number [facility] [place] [address] * (ABNORMAL) POC Blood Gas and Chemistries, Arterial - (07/30/2024 10:08 AM CDT) pH, Art POC 7.39 7.35 - 7.45 pCO2, Art POC 40 35 - 45 mmHg [facility] pO2, Art POC 157(H) 83 - 108 mmHg [facility] Na, POC 133(L) 135 - 145 mmol/L [facility] K POC 3.6 3.3 - 4.9 mmol/L [facility] Comment: Interpretive Data Not all point of care methods assess for hemolysis. Confirm with instrument and retest K+ if not consistent with clinical signs and symptoms. Current Interpretive Data was last revised on 2023. Ionized Ca, POC 4.21(L) 4.50 - 5.10 mg/dL [facility] Glucose, POC Incalculable 70 - 199 mg/dL [facility] Lactate, POC 1.1 0.7 - 2.0 mmol/L [facility] SO2 (vivian) arterial 100(H) 90 - 95 % [facility] Base excess, POC -0.7 mmol/L [facility] HCO3, Art POC 24 20 - 30 mmol/L [facility] Hct, POC 39.0(L) 41.4 - 51.6 % [facility] Total Hb, POC 12.9(L) 13.8 - 17.2 g/dL [facility] Blood 07/30/2024 10:0 8 AM CDT 07/30/2024 10:08 AM CDT Nick Veliz MD LAB POCT ORDERABLES - DE VICE Final Result [facility] [place] [address] * LA AN PROCEDURE PLACEHOLDER (07/30/2024 9:54 AM CDT) [...] code: AMILCAR placement and diagnostic exam, non-congenital (43558) ICD code(s) for medical necessity: I35.0 - [...] inferior: hypokinetic 16- Apical septal: hypokinetic 17- [place]: hypokinetic Valves: Aortic Valve: Annulus: normal Leaflet [...] portion of the MV Mild-moderate TR, Mild LA Large JORGE with no e/o thrombus No [...] the written comments contained within the report. Abhi Martinez MD ANESTHESIA ORDERABLE S Edited [...] response slope POC 86 60 - 195 [facility] Projected Heparin Concentration POC 3.9 units/mL [facility] Blood 07/30/2024 8:55 AM CDT 07/30/2024 8:55 AM CDT Nick Veliz MD LAB POCT ORDERABLES - DE VICE Final Result [facility] One [facility] [place] [address] * (ABNORMAL) POC Blood Gas and Chemistries, Arterial - (07/30/2024 8:52 AM CDT) pH, Art POC 7.42 7.35 - 7.45 pCO2, Art POC 43 35 - 45 mmHg [facility] pO2, Art POC 126(H) 83 - 108 mmHg [facility] Na, POC 135 135 - 145 mmol/L [facility] K POC 3.7 3.3 - 4.9 mmol/L [facility] Comment: Interpretive Data Not all point of care methods assess for hemolysis. Confirm with instrument and retest K+ if not consistent with clinical signs and symptoms. Current Interpretive Data was last revised on 2023. Cl, POC 101 97 - 110 mmol/L [facility] Ionized Ca, POC 4.54 4.50 - 5.10 mg/dL [facility] Glucose, POC Incalculable 70 - 199 mg/dL [facility] Lactate, POC 1.4 0.7 - 2.0 mmol/L [facility] SO2 (vivian) arterial 100(H) 90 - 95 % [facility] Base excess, POC 2.9 mmol/L [facility] HCO3, Art POC 28 20 - 30 mmol/L [facility] Hct, POC 41.0(L) 41.4 - 51.6 % [facility] Total Hb, POC 13.8 13.8 - 17.2 g/dL [facility] Blood 07/30/2024 8:52 AM CDT 07/30/2024 8:52 AM CDT Nick Veliz MD LAB POCT ORDERABLES - DE VICE Final Result Performing Organization Address [facility] Co de Phone Number [facility] [place] [address] * AMILCAR Add-On For OR (07/30/2024 7:58 AM CDT) BSA 2.26 m2 [facility] PROSOLV_CARDIORE PORT_CONS SCIMAGE Narrative [facility] PROSOLV_CARDIOREPORT_CONS SCIMAGE - 07/30/2024 7:58 AM CDT Procedure Auto Finalized by Rule: BW CV AMILCAR DURING CASE OR Please see the Anesthesiologist's Procedure Note for the results. Abhi Martinez MD CV ECHO PROCEDURES F inal Result Performing Organization Address [facility] Co de Phone Number [facility] PROSOLV_CARDIOREPORT_CONS SCIMAGE * Prepare RBC: 4 Units (07/30/2024 5:42 AM CDT) Product code [id number] Unit Number [id number] S [facility] Product Blood Type APOS [facility] Dispense Status PRESUMED TRANSFUSED [facility] Blood 07/30/2024 5:42 AM CDT 07/30/2024 5:41 AM CDT Narrative [facility] - 07/31/2024 8:02 AM CDT Specify Procedure:->AVR Are special requirements needed? (All products are leukoreduced and CMV- safe)- >No Date required:-[id number] LRRBC # of [id number] Reasons:-Hold for procedure (specify procedure)} Aide Galicia NP BLOOD BANK PRODUCT OR DERABLES Final Result Performing Organization Address [facility] Co de Phone Number [facility] Department [place] [address] * Potassium, whole blood (07/30/2024 5:18 AM CDT) Potassium, bld 3.5 3.3 - 4.9 mmol/L Blood 07/30/2024 5:18 AM CDT 07/30/2024 5:43 AM CDT Alicia Tuttle RN RESIDENTIAL LAB BLOOD ORDERABLES Final R esult [facility] [place] [address] * ECG 12 lead (07/30/2024 5:14 AM CDT) Pathologist [facility] Ventricular Rate EKG/Min 76 BPM [facility] Atrial Rate 76 BPM [facility] LA-Interval (MSEC) 176 ms [facility] QRS-Interval (MSEC) 102 ms [facility] QT-Interval (MSEC) 410 ms [facility] QTc 461 ms [facility] P [place] 91 degrees [facility] R [place] 72 degrees [facility] T [place] 66 degrees [facility] Diagnosis Normal sinus rhythm with sinus arrhythmia Minimal voltage criteria for LVH, may be normal variant ( Layo product ) Borderline ECG No previous ECGs available Confirmed by Martina Simmons MD ([id number]) on 07/31/2024 12:12:34 AM [facility] 07/30/2024 5:14 AM CDT 07/31/2024 12:12 AM CDT Nick Veliz MD ECG ORDERABLES Final Re sult [facility] * Potassium, whole blood (07/30/2024 12:07 AM CDT) Potassium, bld 3.9 3.3 - 4.9 mmol/L Blood 07/30/2024 12:0 7 AM CDT 07/30/2024 12:45 AM CDT Alicia Tuttle RN RESIDENTIAL LAB BLOOD ORDERABLES Final R esult [facility]GI SANAT [facility]ke [facility] [place] [address] * Potassium, whole blood (07/29/2024 5:13 PM CDT) Potassium, bld 3.9 3.3 - 4.9 mmol/L Blood 07/29/2024 5:13 PM CDT 07/29/2024 5:22 PM CDT Alicia Tuttle NP LAB BLOOD ORDERABLES Final R esult Performing Organization Address [facility] Co de Phone Number [facility] [place] [address] * eGFR (07/29/2024 5:13 PM CDT) eGFR [...] 5:13 PM CDT 07/29/2024 5:39 PM CDT Ma Markiesha Vidal RN RESIDENTIAL LAB BLOOD ORDERABLES Final Result [facility] One [facility] [place] [address] * (ABNORMAL) Differential, auto (07/29/2024 5:13 PM CDT) Neutrophil abs 8.30(H) 1.50 - 6.50 K/cumm Imm gran abs 0.05 0.00 - 0.10 K/cumm [facility] Lymphocyte abs 1.22 0.80 - 3.30 K/cumm [facility] Monocyte abs 1.20(H) 0.20 - 0.80 K/cumm [facility] Eosinophil abs 0.05 0.00 - 0.50 K/cumm [facility] Basophil abs 0.04 0.00 - 0.10 K/cumm [facility] Neutrophil pct 76.4 % [facility] Comment: Interpretive Data Percent cell count reference ranges are not reported, since discordance with absolute values may lead to misinterpretation of CBC data. Current Interpretive Data was last revised on 2017. Imm gran pct 0.5 % [facility] Comment: Interpretive Data Percent cell count reference ranges are not reported, since discordance with absolute values may lead to misinterpretation of CBC data. Current Interpretive Data was last revised on 2017. Lymphocyte pct 11.2 % [facility] Comment: Interpretive Data Percent cell count reference ranges are not reported, since discordance with absolute values may lead to misinterpretation of CBC data. Current Interpretive Data was last revised on 2017. Monocyte pct 11.0 % [facility] Comment: Interpretive Data Percent cell count reference ranges are not reported, since discordance with absolute values may lead to misinterpretation of CBC data. Current Interpretive Data was last revised on 2017. Eosinophil pct 0.5 % [facility] Comment: Interpretive Data Percent cell count reference ranges are not reported, since discordance with absolute values may lead to misinterpretation of CBC data. Current Interpretive Data was last revised on 2017. Basophil pct 0.4 % [facility] Comment: Interpretive Data Percent cell count reference ranges are not reported, since discordance with absolute values may lead to misinterpretation of CBC data. Current Interpretive Data was last revised on 2017. Blood 07/29/2024 5:13 PM CDT 07/29/2024 5:39 PM CDT Kirstin Vidal RN RESIDENTIAL LAB BLOOD ORDERABLES Final Result [facility] [place] [address] * (ABNORMAL) CBC with auto differential (07/29/2024 5:13 PM CDT) WBC 10.86(H) 3.80 - 9.90 K/cumm Hgb 14.0 13.0 - 17.5 g/dL [facility] Hct 41.2 38.9 - 50.3 % [facility] Plt 253 150 - 400 K/cumm [facility] MPV 10.7 9.1 - 12.3 fL [facility] RBC 3.96(L) 4.30 - 5.80 M/cumm [facility] MCV 104.0(H) 81.3 - 96.4 fL [facility] MCH 35.4(H) 27.1 - 33.3 pg [facility] MCHC 34.0 32.3 - 35.7 g/dL [facility] RDW CV 12.3 11.1 - 14.9 % [facility] RDW SD 47.4 35.7 - 48.1 fL [facility] NRBC abs 0.00 0.00 - 0.01 K/cumm [facility] Blood 07/29/2024 5:13 PM CDT 07/29/2024 5:39 PM CDT us Kirstin Vidal RN RESIDENTIAL LAB BLOOD ORDERABLES Final Result [facility] [place] [address] * Type and screen (07/29/2024 5:13 PM CDT) Pathologist [facility] Kumar, indirect Negative ABO Rh A Positive [facility] Blood 07/29/2024 5:13 PM CDT 07/29/2024 5:25 PM CDT Nick Veliz MD LAB BLOOD BANK TEST ORDE RABLES Final Result Performing Organization Address City/[facility]/ZIP Co de Phone Number [facility] [place] [address] * Phosphorus (07/29/2024 5:13 PM CDT) [facility] Phosphorus, pl 3.2 2.3 - 4.5 mg/dL Blood 07/29/2024 5:13 PM CDT 07/29/2024 5:39 PM CDT Kirstin Vidal NP LAB BLOOD ORDERABLES Final Result Performing Organization Address City/[facility] Co de Phone Number [facility] [place] [address] * Magnesium (07/29/2024 5:13 PM CDT) [facility] Magnesium 1.8 1.4 - 2.5 mg/dL Blood 07/29/2024 5:13 PM CDT 07/29/2024 5:39 PM CDT Kirstin Vidal NP LAB BLOOD ORDERABLES Final Result Performing Organization Address City/[facility] Co de Phone Number [facility] [place] [address] * (ABNORMAL) Hepatic function panel (07/29/2024 5:13 PM CDT) [facility] Bilirubin, total 1.0 0.1 - 1.2 mg/dL Bilirubin, direct 0.4(H) 0.1 - 0.3 mg/dL [facility] Protein, pl 7.0 6.5 - 8.5 g/dL [facility] Albumin 3.5 3.5 - 5.0 g/dL [facility] Alk phos 60 40 - 130 Units/L [facility] ALT 22 7 - 55 Units/L [facility] AST 26 10 - 50 Units/L [facility] Blood 07/29/2024 5:13 PM CDT 07/29/2024 5:39 PM CDT us Renae Moseley DO LAB BLOOD ORDERABLE S Final Result [facility] [place] [address] * (ABNORMAL) Basic metabolic panel (07/29/2024 5:13 PM CDT) Sodium 134(L) 135 - 145 mmol/L Potassium, pl 3.9 3.3 - 4.9 mmol/L [facility] Chloride 94(L) 97 - 110 mmol/L [facility] CO2 29 22 - 32 mmol/L [facility] Anion gap 11 2 - 15 mmol/L [facility] BUN 22 6 - 25 mg/dL [facility] Creatinine 1.12 0.80 - 1.30 mg/dL [facility] Glucose 111 70 - 199 mg/dL [facility] Comment: Interpretive Data Fasting glucose [...] 2022. Calcium 9.0 8.5 - 10.3 mg/dL [facility] Blood 07/29/2024 5:13 PM CDT 07/29/2024 5:39 PM CDT us Kirstin Vidal RN RESIDENTIAL LAB BLOOD ORDERABLES Final Result [facility] [place] [address] * POCT glucose (07/29/2024 5:05 PM CDT) Glucose, POC 97 70 - 199 mg/dL Blood 07/29/2024 5:05 PM CDT 07/29/2024 5:05 PM CDT us Nick Veliz MD LAB POCT ORDERABLES - DE VICE Final Result Performing Organization Address [facility]/[place] [address] * Prepare RBC: 4 Units (07/29/2024 4:07 PM CDT) Product code [id number] Unit Number [id number] 9-B [facility] Product Blood Type APOS [facility] Dispense Status RETURNED [facility] Product code [id number] [facility] Unit Number [id number] 2-S [facility] Product Blood Type APOS [facility] Dispense Status RETURNED [facility] Product code [id number] [facility] Unit Number [id number] 4-2 [facility] Product Blood Type APOS [facility] Dispense Status RETURNED [facility] Product code [id number] [facility] Unit Number [id number] 3-F [facility] Product Blood Type APOS [facility] Dispense Status RETURNED [facility] Blood 07/29/2024 4:07 PM CDT 07/29/2024 4:07 PM CDT Narrative [facility] - 07/30/2024 5:39 PM CDT Specify Procedure:->BioAVR on 07/30/24 Are special requirements needed? (All products are leukoreduced and CMV- safe)- >No Date required:-[id number] LRRBC # of [id number] Reasons:-Hold for procedure (specify procedure)} us Alicia Tuttle RN RESIDENTIAL BLOOD BANK PRODUCT ORDERABLE S Final Result Performing Organization Address [facility] de Phone Number [facility] [place] [address] * (ABNORMAL) aPTT (07/29/2024 3:32 PM CDT) aPTT 52(H) 28 - 38 sec Comment: Interpretive Data Heparin therapeutic range: 66.0 - 100.0 seconds. Range based on correlation with therapeutic heparin activity range of 0.3 - 0.7 Units/mL. Current interpretive data was last revised on 2023. Blood 07/29/2024 3:32 PM CDT 07/29/2024 3:50 PM CDT Narrative [facility] - 07/29/2024 4:00 PM CDT Draw STAT PTT [...] ORDERABLE S Final Result Performing Organization Address [facility] de Phone Number [facility] [place] [address] * (ABNORMAL) Urinalysis reflex to microscopic and culture Urine, clean voided (07/29/2024 2:43 PM CDT) Color, ur Straw Yellow Clarity, ur Clear Clear [facility] Specific gravity, ur 1.012 1.003 - 1.030 [facility] pH, urine 7.0 [facility] Comment: Interpretive Data U rine pH is affected by diet, medications, systemic acid-base disturbances, and renal tubular function. pH may affect urinary stone formation. For example, urine pH below 6.0 may help reduce the tendency for calcium phosphate stones and pH greater than 6.0 may reduce the tendency for uric acid stone formation. Source: [facility] Current Interpretive Data was last revised on 2017 Protein, ur ql Negative Negative [facility] Glucose, ur ql Negative Negative [facility] Ketones, ur Negative Negative [facility] Bilirubin, ur Negative Negative [facility] Blood, ur Trace(A) Negative [facility] Urobilinogen, ur <2.0 <2.0 mg/dL [facility] Nitrite, ur Negative Negative [facility] Leukocyte esterase, ur Negative Negative [facility] UA reflex comment Reflex to microscopic UA will be performed. [facility] Urine, clean voided 07/29/2024 2:43 PM CDT 07/29/2024 3:20 PM CDT Aide Galicia NP LAB MICROBIOLOGY - NERAL ORDERABLES Final Result Performing Organization Address City/[facility]/ZIP Co de Phone Number [facility] [place] [address] * (ABNORMAL) Urinalysis, microscopic only (07/29/2024 2:43 PM CDT) WBC, ur 0-5 0 - 5 /HPF RBC, ur 3-5(A) 0 - 2 /HPF [facility] Epithelial cells, squamous, ur 1-5 0 - 5 /HPF [facility] Mucous, ur Present(A) [facility] Hyaline casts, ur 1-5 0 - 10 /LPF [facility] Culture Reflex Comment Reflex conditions for urine culture (WBC >10) not met. [facility] Urine, clean voided 07/29/2024 2:43 PM CDT 07/29/2024 3:20 PM CDT Aide Galicia NP LAB URINE ORDERABLES Final Result Performing Organization Address City/[facility]/ZIP Co de Phone Number [facility] [place] [address] * POCT glucose (07/29/2024 11:55 AM CDT) Glucose, POC 120 70 - 199 mg/dL Blood 07/29/2024 11:5 5 AM CDT 07/29/2024 11:55 AM CDT Nick Veliz MD LAB POCT ORDERABLES - DE VICE Final Result Performing Organization Address City/State/[facility] Co de Phone Number [facility] [place] [address] * (ABNORMAL) Potassium, whole blood (07/29/2024 11:49 AM CDT) [facility] Potassium, bld 3.2(L) 3.3 - 4.9 mmol/L Blood 07/29/2024 11:4 9 AM CDT 07/29/2024 12:05 PM CDT Alicia Tuttle RN RESIDENTIAL LAB BLOOD ORDERABLES Final R esult [facility] [place] [address] * (ABNORMAL) aPTT (07/29/2024 11:49 AM CDT) [facility] aPTT 49(H) 28 - 38 sec Comment: Interpretive Data Heparin therapeutic range: 66.0 - 100.0 seconds. Range based on correlation with therapeutic heparin activity range of 0.3 - 0.7 Units/mL. Current interpretive data was last revised on 2023. Blood 07/29/2024 11:4 9 AM CDT 07/29/2024 12:07 PM CDT Narrative [facility] - 07/29/2024 12:34 PM CDT Draw STAT [...] ORDERABLE S Final Result Performing Organization Address [facility] de Phone Number [facility] [place] [address] * (ABNORMAL) Protime-INR (07/29/2024 11:49 AM CDT) Pathologist [facility] PT 16.1(H) 9.7 - 13.0 sec INR 1.48(H) 0.90 - 1.20 [facility] Comment: Interpretive data Oral anticoagulant therapeutic ranges: Venous thromboembolism prophylaxis or treatment: 2.0-3.0 CARDIOLOGY Standard range: 2.0-3.0 High-intensity range: 2.5-3.5 Refer to indication-specific guidelines for appropriate target ranges for prosthetic heart valve replacement. Current interpretive data was last revised on 2019. Blood 07/29/2024 11:4 9 AM CDT 07/29/2024 12:07 PM CDT Nick Veliz MD LAB BLOOD ORDERABLES Fin al Result Performing Organization Address [facility] de Phone Number [facility] [place] [address] * Pulmonary Function Test -[facility] Main [place]; Standard, Spirometry with Bronchodilator, ABG, DLCO; Spirometry, Spirometry w/bronchodilator, DLCO and Lung Volumes; Room Air ABG; Spirometry (07/29/2024 11:42 AM CDT) FVC PRE 2.59 L [facility] FVC %PRE PRED 58 % [facility] FEV1 PRE 1.84 L [facility] FEV1 %PRE PRED 56 % [facility] FEV1/FVC PRE 70.8 % [facility] FRC PL PRE 2.83 L [facility] FRC PL %PRE PRED 68 % [facility] RV PRE 1.79 L [facility] RV %PRE PRED 66 % [facility] TLC PRE 4.45 L [facility] TLC %PRE PRED 58 % [facility] DLCO PRE 16.2 ml/min/mmH g [facility] DLCO %PRE PRED 58 % [facility] FIO2 % 21.00 % [facility] PaO2 84.0 mmHg [facility] PaCO2 33.0 mmHg [facility] pH 7.55 [facility] A-aDO2 POC 24.0 mmHg [facility] METHGB % 0.2 % [facility] COHb POC 2.3 % [facility] HCO3 28.9 mEq/L [facility] Anatomical Region Laterality Modality PFT 07/29/2024 11:1 3 AM CDT Narrative 07/29/2024 5:09 PM CDT Scheduled for OR on 07/30 Patient Location:->[facility] Standard:->Spirometry, Spirometry w/bronchodilator, DLCO and Lung Volumes [...] and %HbO2 is age dependent. However, the [facility] Pul[facility] Function Laboratory defines hypoxemia as a PaO2 <56 mm Hg or a %HbO2 <89%. Starting on April of 2024 the [facility]monary Function Laboratory utilizes race neutral GLI Global normative equations. us Alicia Tuttle RN RESIDENTIAL PFT ORDERABLES Final Result * US Carotids Duplex Bilateral (07/29/2024 11:13 AM CDT) Anatomical Region Laterality Modality Vascular Bilateral Ultrasound 07/29/2024 9:36 AM CDT Narrative 07/29/2024 6:39 PM CDT [facility] - Department of Vascular Surgery, Vascular Laboratory [address] [place] [address] Carotid Duplex Ultrasound Report Patient Name: SHEY SHAH C : 1950 (73y 11m) Study Date: 07/29/2024 9:36:47 AM Gender: M Tech: Location: [id number] Ref Provider: ALICIA TUTTLE Quality: Adequate Order [...] LT VERT PSV 38 cm/sec FINDINGS: Performing [employer] Capt[employer] Power Plant Engineer: Yen Estrella RVT. Rt Common Carotid Artery: [...] Procedure Note Willie Saldivar MD - 07/29/2024 [facility] - Department of Vascular Surgery,Vascular Laboratory [address] [place] [address] Carotid Duplex Ultrasound Report Patient Name: SHEY SHAH C : 1950 (73y 11m) Study Date: 07/29/2024 9:36:47 AM Gender: M Tech: Location: [id number] Ref Provider: ALICIA TUTTLE Quality: Adequate Order [...] LT VERT PSV 38 cm/sec FINDINGS: Performing [employer] Capt[employer] Power Plant Engineer: Yen Estrella RVT. Rt Common Carotid Artery: [...] Saldivar MD FACS 07/29/2024 6:38:30 PM CDT us Alicia Tuttle RN RESIDENTIAL IMG US PROCEDURES Final Resu lt * POCT glucose (07/29/2024 8:00 AM CDT) Glucose, POC 117 70 - 199 mg/dL Blood 07/29/2024 8:00 AM CDT 07/29/2024 8:00 AM CDT us Nick Veliz MD LAB POCT ORDERABLES - DE VICE Final Result [facility] [place] [address] * eGFR (07/28/2024 8:30 PM CDT) eGFR [...] CDT 07/28/2024 10:21 PM CDT Kirstin Vidal NP LAB BLOOD ORDERABLES [place] [address] * Phosphorus (07/28/2024 8:30 PM CDT) Pathologist [facility] Phosphorus, pl 3.3 2.3 - 4.5 mg/dL Blood 07/28/2024 8:30 PM CDT 07/28/2024 10:21 PM CDT Kirstin Vidal NP LAB BLOOD ORDERABLES Final Result [facility] [place] [address] * Magnesium (07/28/2024 8:30 PM CDT) Pathologist [facility] Magnesium 1.9 1.4 - 2.5 mg/dL Blood 07/28/2024 8:30 PM CDT 07/28/2024 10:21 PM CDT Kirstin Vidal NP LAB BLOOD ORDERABLES Final Result [facility] Department [place] [address] * (ABNORMAL) Basic metabolic panel (07/28/2024 8:30 PM CDT) Pathologist [facility] Sodium 137 135 - 145 mmol/L Potassium, pl 3.1(L) 3.3 - 4.9 mmol/L [facility] Chloride 97 97 - 110 mmol/L [facility] CO2 29 22 - 32 mmol/L [facility] Anion gap 11 2 - 15 mmol/L [facility] BUN 23 6 - 25 mg/dL [facility] Creatinine 1.05 0.80 - 1.30 mg/dL [facility] Glucose 153 70 - 199 mg/dL [facility] Comment: Interpretive Data Fasting glucose [...] 2022. Calcium 8.6 8.5 - 10.3 mg/dL [facility] Blood 07/28/2024 8:30 PM CDT 07/28/2024 10:21 PM CDT Kirstin Vidal NP LAB BLOOD ORDERABLES Final Result [facility] [place] [address] * POCT glucose (07/28/2024 6:33 PM CDT) [facility] Glucose, POC 90 70 - 199 mg/dL Blood 07/28/2024 6:33 PM CDT 07/28/2024 6:33 PM CDT Nick Veliz MD LAB POCT ORDERABLES - DE VICE Final Result Performing Organization Address City/[facility]/ZIP Co de Phone Number [facility] Department [place] [address] * (ABNORMAL) Differential, auto (07/28/2024 6:30 PM CDT) [facility] Neutrophil abs 6.9(H) 1.5 - 6.5 K/cumm Imm gran abs 0.1 0.0 - 0.1 K/cumm [facility] Lymphocyte abs 0.9 0.8 - 3.3 K/cumm [facility] Monocyte abs 1.1(H) 0.2 - 0.8 K/cumm [facility] Eosinophil abs 0.0 0.0 - 0.5 K/cumm [facility] Basophil abs 0.1 0.0 - 0.1 K/cumm [facility] Neutrophil pct 76.4 % [facility] Comment: Interpretive Data Percent cell count reference ranges are not reported, since discordance with absolute values may lead to misinterpretation of CBC data. Current Interpretive Data was last revised on 2017. Imm gran pct 0.7 % [facility] Comment: Interpretive Data Percent cell count reference ranges are not reported, since discordance with absolute values may lead to misinterpretation of CBC data. Current Interpretive Data was last revised on 2017. Lymphocyte pct 9.7 % [facility] Comment: Interpretive Data Percent cell count reference ranges are not reported, since discordance with absolute values may lead to misinterpretation of CBC data. Current Interpretive Data was last revised on 2017. Monocyte pct 12.4 % [facility] Comment: Interpretive Data Percent cell count reference ranges are not reported, since discordance with absolute values may lead to misinterpretation of CBC data. Current Interpretive Data was last revised on 2017. Eosinophil pct 0.2 % [facility] Comment: Interpretive Data Percent cell count reference ranges are not reported, since discordance with absolute values may lead to misinterpretation of CBC data. Current Interpretive Data was last revised on 2017. Basophil pct 0.6 % [facility] Comment: Interpretive Data Percent cell count reference ranges are not reported, since discordance with absolute values may lead to misinterpretation of CBC data. Current Interpretive Data was last revised on 2017. Blood 07/28/2024 6:30 PM CDT 07/28/2024 10:23 PM CDT Kirstin Vidal NP LAB BLOOD ORDERABLES Final Result [facility] Department [place] [address] * (ABNORMAL) CBC with auto differential (07/28/2024 6:30 PM CDT) WBC 9.1 3.8 - 9.9 K/cumm Hgb 13.5 13.0 - 17.5 g/dL [facility] Hct 39.1 38.9 - 50.3 % [facility] Plt 236 150 - 400 K/cumm [facility] MPV 11.0 9.1 - 12.3 fL [facility] RBC 3.80(L) 4.30 - 5.80 M/cumm [facility] MCV 102.9(H) 81.3 - 96.4 fL [facility] MCH 35.5(H) 27.1 - 33.3 pg [facility] MCHC 34.5 32.3 - 35.7 g/dL [facility] RDW CV 12.5 11.1 - 14.9 % [facility] RDW SD 46.8 35.7 - 48.1 fL [facility] NRBC abs 0.00 0.00 - 0.01 K/cumm [facility] Blood 07/28/2024 6:30 PM CDT 07/28/2024 10:23 PM CDT us Kirstin Vidal RN RESIDENTIAL LAB BLOOD ORDERABLES Final Result Performing Organization Address [facility]/ZIP Co de Phone Number [facility] Department [place] [address] * (ABNORMAL) Hepatic function panel (07/28/2024 6:30 PM CDT) Bilirubin, total 0.9 0.1 - 1.2 mg/dL Bilirubin, direct 0.3 0.1 - 0.3 mg/dL [facility] Protein, pl 6.4(L) 6.5 - 8.5 g/dL [facility] Albumin 3.2(L) 3.5 - 5.0 g/dL [facility] Alk phos 54 40 - 130 Units/L [facility] ALT 26 7 - 55 Units/L [facility] AST 28 10 - 50 Units/L [facility] Blood 07/28/2024 6:30 PM CDT 07/28/2024 10:21 PM CDT us Renae Moseley DO LAB BLOOD ORDERABLE S Final Result Performing Organization Address [facility] Co de Phone Number [facility] Department [place] [address] * POCT glucose (07/28/2024 5:45 PM CDT) Glucose, POC 105 70 - 199 mg/dL Blood 07/28/2024 5:45 PM CDT 07/28/2024 5:45 PM CDT us Nick Veliz MD LAB POCT ORDERABLES - DE VICE Final Result [facility] Department [place] [address] * RIGHT HEART CATH, LEFT HEART CATHETERIZATION [...] referring physician. Narrative 07/28/2024 5:36 PM CDT [facility] DIRECTOR TALENT MANAGEMENT REPORT: RIGHT AND LEFT HEART CATHETERIZATION PROCEDURE: [...] micropuncture and modified Seldinger technique a 4 Colombian sheath was inserted into the right femoral artery. Venous access was obtained in the Right Femoral vein using modified Seldinger technique and micropuncture approach. A 7 Colombian sheath was secured into place. 5. Left ventricular pressures were obtained using a 4 Colombian JR4 catheter. 6. Coronary Arteriography was performed using 4 Colombian JL4 and JR4 catheters. 0 mcg of nitroglycerin was administered via the intracoronary route prior to contrast opacification. 7. Right heart catheterization was performed with a 7 Colombian TD Won Clair catheter. The catheter was [...] (ABNORMAL) POCT oxyhemoglobin (07/28/2024 5:14 PM CDT) UTILITY BILL COLLECTION CLERK Oxyhemoglobin 59.2(L) >=65.0 % UTILITY BILL COLLECTION CLERK Hemoglobin 13.8 13.0 - 17.5 g/dL [facility] UTILITY BILL COLLECTION CLERK O2 content 11.3(L) 15.0 - 22.0 Vol % [facility] Anatomic Site aPOC Pulm Art left [facility] Blood 07/28/2024 5:14 PM CDT 07/28/2024 5:14 PM CDT Nick Veliz MD LAB POCT ORDERABLES - DE VICE Final Result [facility] Department [place] [address] * (ABNORMAL) POCT oxyhemoglobin (07/28/2024 5:13 PM CDT) UTILITY BILL COLLECTION CLERK Oxyhemoglobin 57.2(L) >=65.0 % UTILITY BILL COLLECTION CLERK Hemoglobin 13.7 13.0 - 17.5 g/dL [facility] UTILITY BILL COLLECTION CLERK O2 content 10.9(L) 15.0 - 22.0 Vol % [facility] Anatomic Site aPOC Pulm Art left [facility] Blood 07/28/2024 5:13 PM CDT 07/28/2024 5:13 PM CDT Nick Veliz MD LAB POCT ORDERABLES - DE VICE Final Result Performing Organization Address [facility] Co de Phone Number [facility] [place] [address] * POCT glucose (07/28/2024 12:23 PM CDT) Glucose, POC 106 70 - 199 mg/dL Blood 07/28/2024 12:2 3 PM CDT 07/28/2024 12:23 PM CDT Nick Veliz MD LAB POCT ORDERABLES - DE VICE Final Result Performing Organization Address [facility] Phone Number [facility] Department [place] [address] * (ABNORMAL) aPTT (07/28/2024 10:54 AM CDT) aPTT 52(H) 28 - 38 sec Comment: Interpretive Data Heparin therapeutic range: 66.0 - 100.0 seconds. Range based on correlation with therapeutic heparin activity range of 0.3 - 0.7 Units/mL. Current interpretive data was last revised on 2023. Blood 07/28/2024 10:5 4 AM CDT 07/28/2024 11:15 AM CDT Narrative [facility] - 07/28/2024 11:42 AM CDT [...] LAB BLOOD ORDERABLE S Final Result [facility] [place] [address] * POCT glucose (07/28/2024 8:18 AM CDT) Glucose, POC 88 70 - 199 mg/dL Blood 07/28/2024 8:18 AM CDT 07/28/2024 8:18 AM CDT Nick Veliz MD LAB POCT ORDERABLES - DE VICE Final Result Performing Organization Address City/[facility] Co de Phone Number [facility] [place] [address] * TRANSTHORACIC ECHO (TTE) COMPLETE W DOPPLER/CF W CONTRAST (07/28/2024 8:11 AM CDT) Anatomical Region Laterality Modality Ultrasound 07/28/2024 7:22 AM CDT Narrative 07/28/2024 8:40 AM CDT [facility] [place] [address] Transthoracic Echocardiographic Report Patient Name: SHEY SHAH C : 1950 (73y 11m) Gender: M Study Date: 07/28/2024 07:22:18 AM Ht(Inch): 73 Wt(Lb): 223.11 BSA: 2.28 [employer] Capture Power Plant Engineer: Yen Greenfield RDCS Location: [id number] Order Provider: NICK VELIZ Heart Rate: 121 [...] Note Vasu Reddy MD PhD - 07/28/2024 [facility] [place] [address] Transthoracic Echocardiographic Report Patient Name: SHEY SHAH C : 1950 (73y 11m) Gender: M Study Date: 07/28/2024 07:22:18 AM Ht(Inch): 73 Wt(Lb): 223.11 BSA: 2.28 [employer] Capture Power Plant Engineer: Yen Greenfield LION Location: [id number] Order Provider:NICK VELIZ Heart Rate: 121 BMI: [...] cm [ 1.71 - 5.00 ] RA Lodbbo45.94 ml RA Volume Index28.48 ml/m2 AoR Diam 2D 2.65 cm [ 3.10 - 3.70 ] Ao Root Index 1.16 cm/m2 [ 1.00 - 2.00 ] Electronically Signed By: Vasu Reddy M.D. 07/28/2024 8:40:24 AM CDT Nick Veliz MD CV ECHO PROCEDURES Final Result * (ABNORMAL) aPTT (07/28/2024 6:12 AM CDT) Pathologist [facility] aPTT 49(H) 28 - 38 sec Comment: Interpretive Data Heparin therapeutic range: 66.0 - 100.0 seconds. Range based on correlation with therapeutic heparin activity range of 0.3 - 0.7 Units/mL. Current interpretive data was last revised on 2023. Blood 07/28/2024 6:12 AM CDT 07/28/2024 7:10 AM CDT Raheem MARGI [facility] - 07/28/2024 7:34 AM CDT Draw STAT PTT 2 hours after initiation of bivalirudin infusion, draw STAT PTT 2 hours after each dose change, and every 2 hours until 2 consecutive PTTs are within therapeutic range. Once two consecutive PTTs are therapeutic (50-80 seconds), then draw PTT every AM until bivalirudin is discontinued. Renae Moseley DO LAB BLOOD ORDERABLE S Final Result [facility] Department [place] [address] * Infection Prevention Joce auris PCR, surveillance Axilla/Groin (07/28/2024 2:27 AM CDT) Pathologist [facility] Joce auris DNA Not Detected Not Detected [facility] Comment: Interpretive Data Testing performed by [facility] Infectious Disease Laboratory using the [employer] lui 6800 Joce auris assay. This assay detects DNA from Joce auris using Real-Time PCR. This assay is laboratory developed and is not cleared by the [place] Food and Drug Administration. The performance characteristics have been verified by the [facility]ious Disease [facility]. Axilla/Groin 07/28/2024 2:27 AM CDT 07/28/2024 3:10 AM CDT Herson Perla MD LAB MICROBIOLOGY - GENERAL ORDER VAHID Final Result Performing Organization Address City/[facility] Co de Phone Number [facility] [place] [address] [facility] * (ABNORMAL) aPTT (07/28/2024 2:27 AM CDT) aPTT 51(H) 28 - 38 sec Comment: Interpretive Data Heparin therapeutic range: 66.0 - 100.0 seconds. Range based on correlation with therapeutic heparin activity range of 0.3 - 0.7 Units/mL. Current interpretive data was last revised on 2023. Blood 07/28/2024 2:27 AM CDT 07/28/2024 3:13 AM CDT Narrative [facility] - 07/28/2024 3:36 AM CDT [...] ORDERABLE S Final Result Performing Organization Address [facility] Co de Phone Number [facility] Department [place] [address] * Type and screen (07/27/2024 10:23 PM CDT) ABO Rh A Positive Kumar, indirect Negative [facility] Blood 07/27/2024 10:2 3 PM CDT 07/27/2024 11:38 PM CDT Nick Veliz MD LAB BLOOD BANK TEST ORDE RABLES Final Result Performing Organization Address [facility] Co de Phone Number [facility] Department [place] [address] * eGFR (07/27/2024 10:22 PM CDT) Pathologist [facility] eGFR 69 >=60 mL/min/1. 73 m2 Comment: [...] Vidal NP LAB BLOOD ORDERABLES Final Result [facility] Department [place] [address] * (ABNORMAL) Differential, auto (07/27/2024 10:22 PM CDT) Pathologist [facility] Neutrophil abs 7.3(H) 1.5 - 6.5 K/cumm Imm gran abs 0.1 0.0 - 0.1 K/cumm [facility] Lymphocyte abs 1.4 0.8 - 3.3 K/cumm [facility] Monocyte abs 1.3(H) 0.2 - 0.8 K/cumm [facility] Eosinophil abs 0.0 0.0 - 0.5 K/cumm [facility] Basophil abs 0.0 0.0 - 0.1 K/cumm [facility] Neutrophil pct 71.9 % [facility] Comment: Interpretive Data Percent cell count reference ranges are not reported, since discordance with absolute values may lead to misinterpretation of CBC data. Current Interpretive Data was last revised on 2017. Imm gran pct 0.5 % [facility] Comment: Interpretive Data Percent cell count reference ranges are not reported, since discordance with absolute values may lead to misinterpretation of CBC data. Current Interpretive Data was last revised on 2017. Lymphocyte pct 13.6 % [facility] Comment: Interpretive Data Percent cell count reference ranges are not reported, since discordance with absolute values may lead to misinterpretation of CBC data. Current Interpretive Data was last revised on 2017. Monocyte pct 13.3 % [facility] Comment: Interpretive Data Percent cell count reference ranges are not reported, since discordance with absolute values may lead to misinterpretation of CBC data. Current Interpretive Data was last revised on 2017. Eosinophil pct 0.4 % [facility] Comment: Interpretive Data Percent cell count reference ranges are not reported, since discordance with absolute values may lead to misinterpretation of CBC data. Current Interpretive Data was last revised on 2017. Basophil pct 0.3 % [facility] Comment: Interpretive Data Percent cell count reference ranges are not reported, since discordance with absolute values may lead to misinterpretation of CBC data. Current Interpretive Data was last revised on 2017. Blood 07/27/2024 10:2 2 PM CDT 07/27/2024 11:31 PM CDT us Kirstin Vidal NP LAB BLOOD ORDERABLES Final Result [facility] Department [place] [address] * (ABNORMAL) CBC with auto differential (07/27/2024 10:22 PM CDT) WBC 10.1(H) 3.8 - 9.9 K/cumm Hgb 14.2 13.0 - 17.5 g/dL [facility] Hct 41.2 38.9 - 50.3 % [facility] Plt 276 150 - 400 K/cumm [facility] MPV 11.7 9.1 - 12.3 fL [facility] RBC 3.99(L) 4.30 - 5.80 M/cumm [facility] MCV 103.3(H) 81.3 - 96.4 fL [facility] MCH 35.6(H) 27.1 - 33.3 pg [facility] MCHC 34.5 32.3 - 35.7 g/dL [facility] RDW CV 12.5 11.1 - 14.9 % [facility] RDW SD 47.7 35.7 - 48.1 fL [facility] NRBC abs 0.00 0.00 - 0.01 K/cumm [facility] Blood 07/27/2024 10:2 2 PM CDT 07/27/2024 11:31 PM CDT Kirstin Vidal NP LAB BLOOD ORDERABLES Final Result [facility] [place] [address] * (ABNORMAL) aPTT (07/27/2024 10:22 PM CDT) aPTT 47(H) 28 - 38 sec Comment: Interpretive Data Heparin therapeutic range: 66.0 - 100.0 seconds. Range based on correlation with therapeutic heparin activity range of 0.3 - 0.7 Units/mL. Current interpretive data was last revised on 2023. Blood 07/27/2024 10:2 2 PM CDT 07/27/2024 11:32 PM CDT Narrative [facility] - 07/27/2024 11:55 PM CDT [...] ORDERABLE S Final Result Performing Organization Address [facility] de Phone Number [facility] [place] [address] * Phosphorus (07/27/2024 10:22 PM CDT) Pathologist [facility] Phosphorus, pl 3.3 2.3 - 4.5 mg/dL Blood 07/27/2024 10:2 2 PM CDT 07/27/2024 11:31 PM CDT Kirstin Vidal RN RESIDENTIAL LAB BLOOD ORDERABLES Final Result Performing Organization Address [facility] de Phone Number [facility] [place] [address] * Magnesium (07/27/2024 10:22 PM CDT) Pathologist [facility] Magnesium 1.9 1.4 - 2.5 mg/dL Blood 07/27/2024 10:2 2 PM CDT 07/27/2024 11:31 PM CDT Kirstin Vidal RN RESIDENTIAL LAB BLOOD ORDERABLES Final Result Performing Organization Address [facility] [place] [address] * Hepatic function panel (07/27/2024 10:22 PM CDT) Bilirubin, total 0.8 0.1 - 1.2 mg/dL Bilirubin, direct 0.3 0.1 - 0.3 mg/dL [facility] Protein, pl 6.9 6.5 - 8.5 g/dL [facility] Albumin 3.5 3.5 - 5.0 g/dL [facility] Alk phos 59 40 - 130 Units/L [facility] ALT 27 7 - 55 Units/L [facility] AST 34 10 - 50 Units/L [facility] Blood 07/27/2024 10:2 2 PM CDT 07/27/2024 11:31 PM CDT us Renae Lelsee Moseley DO LAB BLOOD ORDERABLE S Final Result [facility] [place] [address] * (ABNORMAL) Basic metabolic panel (07/27/2024 10:22 PM CDT) Sodium 133(L) 135 - 145 mmol/L Potassium, pl 3.6 3.3 - 4.9 mmol/L [facility] Chloride 92(L) 97 - 110 mmol/L [facility] CO2 29 22 - 32 mmol/L [facility] Anion gap 12 2 - 15 mmol/L [facility] BUN 27(H) 6 - 25 mg/dL [facility] Creatinine 1.13 0.80 - 1.30 mg/dL [facility] Glucose 95 70 - 199 mg/dL [facility] Comment: Interpretive Data Fasting glucose [...] 2022. Calcium 8.5 8.5 - 10.3 mg/dL [facility] Blood 07/27/2024 10:2 2 PM CDT 07/27/2024 11:31 PM CDT us Kirstin Vidal RN RESIDENTIAL LAB BLOOD ORDERABLES Final Result [facility] [place] [address] * POCT glucose (07/27/2024 4:58 PM CDT) Glucose, POC 114 70 - 199 mg/dL Blood 07/27/2024 4:58 PM CDT 07/27/2024 4:58 PM CDT Nick Veliz MD LAB POCT ORDERABLES - DE VICE Final Result Performing Organization Address [facility] [place] [address] * POCT glucose (07/27/2024 12:22 PM CDT) Glucose, POC 145 70 - 199 mg/dL Blood 07/27/2024 12:2 2 PM CDT 07/27/2024 12:22 PM CDT Nick Veliz MD LAB POCT ORDERABLES - DE VICE Final Result Performing Organization Address [facility] [place] [address] * POCT glucose (07/27/2024 9:46 AM CDT) Glucose, POC 122 70 - 199 mg/dL Blood 07/27/2024 9:46 AM CDT 07/27/2024 9:46 AM CDT us Nick Veliz MD LAB POCT ORDERABLES - DE VICE Final Result Performing Organization Address City/[facility]/ZIP Co de Phone Number [facility] [place] [address] * eGFR (07/26/2024 8:18 PM CDT) Pathologist [facility] eGFR 67 >=60 mL/min/1. 73 m2 Comment: [...] DO LAB BLOOD ORDERABLE S Final Result [facility] [place] [address] * (ABNORMAL) Differential, auto (07/26/2024 8:18 PM CDT) Pathologist [facility] Neutrophil abs 8.0(H) 1.5 - 6.5 K/cumm Imm gran abs 0.0 0.0 - 0.1 K/cumm [facility] Lymphocyte abs 1.4 0.8 - 3.3 K/cumm [facility] Monocyte abs 1.3(H) 0.2 - 0.8 K/cumm [facility] Eosinophil abs 0.0 0.0 - 0.5 K/cumm [facility] Basophil abs 0.0 0.0 - 0.1 K/cumm [facility] Neutrophil pct 73.8 % [facility] Comment: Interpretive Data Percent cell count reference ranges are not reported, since discordance with absolute values may lead to misinterpretation of CBC data. Current Interpretive Data was last revised on 2017. Imm gran pct 0.4 % [facility] Comment: Interpretive Data Percent cell count reference ranges are not reported, since discordance with absolute values may lead to misinterpretation of CBC data. Current Interpretive Data was last revised on 2017. Lymphocyte pct 13.1 % [facility] Comment: Interpretive Data Percent cell count reference ranges are not reported, since discordance with absolute values may lead to misinterpretation of CBC data. Current Interpretive Data was last revised on 2017. Monocyte pct 12.2 % [facility] Comment: Interpretive Data Percent cell count reference ranges are not reported, since discordance with absolute values may lead to misinterpretation of CBC data. Current Interpretive Data was last revised on 2017. Eosinophil pct 0.3 % [facility] Comment: Interpretive Data Percent cell count reference ranges are not reported, since discordance with absolute values may lead to misinterpretation of CBC data. Current Interpretive Data was last revised on 2017. Basophil pct 0.2 % [facility] Comment: Interpretive Data Percent cell count reference ranges are not reported, since discordance with absolute values may lead to misinterpretation of CBC data. Current Interpretive Data was last revised on 2017. Blood 07/26/2024 8:18 PM CDT 07/26/2024 8:36 PM CDT us Renae Moseley DO LAB BLOOD ORDERABLE S Final Result [facility] Department of Laboratories [place], [place] [id number] * (ABNORMAL) CBC with auto differential (07/26/2024 8:18 PM CDT) WBC 10.9(H) 3.8 - 9.9 K/cumm Hgb 14.1 13.0 - 17.5 g/dL [facility] Hct 41.6 38.9 - 50.3 % [facility] Plt 255 150 - 400 K/cumm [facility] MPV 11.0 9.1 - 12.3 fL [facility] RBC 4.02(L) 4.30 - 5.80 M/cumm [facility] MCV 103.5(H) 81.3 - 96.4 fL [facility] MCH 35.1(H) 27.1 - 33.3 pg [facility] MCHC 33.9 32.3 - 35.7 g/dL [facility] RDW CV 12.5 11.1 - 14.9 % [facility] RDW SD 47.8 35.7 - 48.1 fL [facility] NRBC abs 0.00 0.00 - 0.01 K/cumm [facility] Blood 07/26/2024 8:18 PM CDT 07/26/2024 8:36 PM CDT us Renae Moseley DO LAB BLOOD ORDERABLE S Final Result [facility] [place] [address] * (ABNORMAL) aPTT (07/26/2024 8:18 PM CDT) [facility] aPTT 56(H) 28 - 38 sec Comment: Interpretive Data Heparin therapeutic range: 66.0 - 100.0 seconds. Range based on correlation with therapeutic heparin activity range of 0.3 - 0.7 Units/mL. Current interpretive data was last revised on 2023. Blood 07/26/2024 8:18 PM CDT 07/26/2024 8:37 PM CDT Narrative [facility] - 07/26/2024 8:45 PM CDT Draw STAT PTT 2 hours after initiation of bivalirudin infusion, draw STAT PTT 2 hours after each dose change, and every 2 hours until 2 consecutive PTTs are within therapeutic range. Once two consecutive PTTs are therapeutic (50-80 seconds), then draw PTT every AM until bivalirudin is discontinued. us Renae Hydeski Giacomino DO LAB BLOOD ORDERABLE S Final Result Performing Organization Address City/[facility]/ZIP Co de Phone Number [facility] [place] [address] * Phosphorus (07/26/2024 8:18 PM CDT) Phosphorus, pl 3.6 2.3 - 4.5 mg/dL Blood 07/26/2024 8:18 PM CDT 07/26/2024 8:36 PM CDT Renae Gustafsoni Giacomino DO LAB BLOOD ORDERABLE S Final Result Performing Organization Address [facility] Co de Phone Number [facility] [place] [address] * Magnesium (07/26/2024 8:18 PM CDT) Pathologist [facility] Magnesium 2.0 1.4 - 2.5 mg/dL Blood 07/26/2024 8:18 PM CDT 07/26/2024 8:36 PM CDT Renae Gustafsoni Giacomino DO LAB BLOOD ORDERABLE S Final Result Performing Organization Address City/[facility] Co de Phone Number [facility] [place] [address] * (ABNORMAL) Hepatic function panel (07/26/2024 8:18 PM CDT) Bilirubin, total 0.8 0.1 - 1.2 mg/dL Bilirubin, direct 0.3 0.1 - 0.3 mg/dL [facility] Comment:Reviewed Protein, pl 7.2 6.5 - 8.5 g/dL [facility] Albumin 3.4(L) 3.5 - 5.0 g/dL [facility] Alk phos 61 40 - 130 Units/L [facility] ALT 21 7 - 55 Units/L [facility] Comment:Repeated and Verifie d AST 34 10 - 50 Units/L [facility] Comment:Repeated and Verifie d Blood 07/26/2024 8:18 PM CDT 07/26/2024 8:36 PM CDT Renae MAG Interactiveradha Giacomino DO LAB BLOOD ORDERABLE S Final Result [facility] Department [place] [address] * (ABNORMAL) Basic metabolic panel (07/26/2024 8:18 PM CDT) Sodium 130(L) 135 - 145 mmol/L Potassium, pl 4.2 3.3 - 4.9 mmol/L [facility] Chloride 91(L) 97 - 110 mmol/L [facility] CO2 27 22 - 32 mmol/L [facility] Anion gap 12 2 - 15 mmol/L [facility] BUN 23 6 - 25 mg/dL [facility] Creatinine 1.15 0.80 - 1.30 mg/dL [facility] Glucose 134 70 - 199 mg/dL [facility] Comment: Interpretive Data Fasting glucose [...] 2022. Calcium 8.7 8.5 - 10.3 mg/dL [facility] Blood 07/26/2024 8:18 PM CDT 07/26/2024 8:36 PM CDT Renae MAG Interactivemaria estheri Giacomino DO LAB BLOOD ORDERABLE S Final Result Performing Organization Address City/[facility]/ZIP Co de Phone Number [facility] [place] [address] * POCT glucose (07/26/2024 4:22 PM CDT) Glucose, POC 128 70 - 199 mg/dL Blood 07/26/2024 4:22 PM CDT 07/26/2024 4:22 PM CDT us Renae Dugolenski Giacomino DO LAB POCT ORDERABLES - DEVICE Final Result Performing Organization Address City/[facility] Co de Phone Number [facility] [place] [address] * POCT glucose (07/26/2024 11:37 AM CDT) Glucose, POC 165 70 - 199 mg/dL Blood 07/26/2024 11:3 7 AM CDT 07/26/2024 11:37 AM CDT us Renae Dugolenski Giacomino DO LAB POCT ORDERABLES - DEVICE Final Result Performing Organization Address City/[facility] Co de Phone Number [facility] [place] [address] * eGFR (07/26/2024 8:39 AM CDT) eGFR [...] DO LAB BLOOD ORDERABLE S Final Result [facility] [place] [address] * Phosphorus (07/26/2024 8:39 AM CDT) Phosphorus, pl 4.1 2.3 - 4.5 mg/dL Blood 07/26/2024 8:39 AM CDT 07/26/2024 8:50 AM CDT us Renae Dugolenski Giacomino DO LAB BLOOD ORDERABLE S Final Result Performing Organization Address City/[facility]/ZIP Co de Phone Number [facility] [place] [address] * Magnesium (07/26/2024 8:39 AM CDT) Magnesium 2.0 1.4 - 2.5 mg/dL Blood 07/26/2024 8:39 AM CDT 07/26/2024 8:50 AM CDT us Renae Dugolenski Giacomino DO LAB BLOOD ORDERABLE S Final Result [facility] [place] [address] * (ABNORMAL) Basic metabolic panel (07/26/2024 8:39 AM CDT) Sodium 133(L) 135 - 145 mmol/L Potassium, pl 3.6 3.3 - 4.9 mmol/L [facility] Comment:Repeated and Verifie d Chloride 91(L) 97 - 110 mmol/L [facility] CO2 28 22 - 32 mmol/L [facility] Anion gap 14 2 - 15 mmol/L [facility] BUN 21 6 - 25 mg/dL [facility] Creatinine 0.97 0.80 - 1.30 mg/dL [facility] Glucose 211(H) 70 - 199 mg/dL [facility] Comment: Interpretive Data Fasting glucose [...] 2022. Calcium 8.2(L) 8.5 - 10.3 mg/dL [facility] Blood 07/26/2024 8:39 AM CDT 07/26/2024 8:50 AM CDT Renae Moseley DO LAB BLOOD ORDERABLE S Final Result [facility] [place] [address] * POCT glucose (07/26/2024 7:35 AM CDT) Glucose, POC 149 70 - 199 mg/dL Blood 07/26/2024 7:35 AM CDT 07/26/2024 7:35 AM CDT us Renae Dugolenski Giacomino DO LAB POCT ORDERABLES - DEVICE Final Result Performing Organization Address City/[facility]/ZIP Co de Phone Number [facility] [place] [address] * Potassium, whole blood (07/26/2024 2:23 AM CDT) Potassium, bld 3.9 3.3 - 4.9 mmol/L Blood 07/26/2024 2:23 AM CDT 07/26/2024 2:30 AM CDT us Renae Dugolenski Giacomino DO LAB BLOOD ORDERABLE S Final Result Performing Organization Address [facility] de Phone Number [facility] [place] [address] * (ABNORMAL) aPTT (07/26/2024 2:23 AM CDT) aPTT 58(H) 28 - 38 sec Comment: Interpretive Data Heparin therapeutic range: 66.0 - 100.0 seconds. Range based on correlation with therapeutic heparin activity range of 0.3 - 0.7 Units/mL. Current interpretive data was last revised on 2023. Blood 07/26/2024 2:23 AM CDT 07/26/2024 2:36 AM CDT Narrative [facility] - 07/26/2024 2:45 AM CDT Draw STAT [...] ORDERABLE S Final Result Performing Organization Address [facility] Co de Phone Number [facility] [place] [address] * POCT glucose (07/25/2024 8:51 PM CDT) Glucose, POC 151 70 - 199 mg/dL Blood 07/25/2024 8:5 1 PM CDT 07/25/2024 8:51 PM CDT us Renae Dugolenski Giacomino DO LAB POCT ORDERABLES - DEVICE Final Result [facility] [place] [place] [address] * eGFR (07/25/2024 8:19 PM CDT) eGFR [...] LAB BLOOD ORDERABLE S Final Result [facility] [place] [address] * (ABNORMAL) Differential, auto (07/25/2024 8:19 PM CDT) Neutrophil abs 8.2(H) 1.5 - 6.5 K/cumm Imm gran abs 0.1 0.0 - 0.1 K/cumm [facility] Lymphocyte abs 1.2 0.8 - 3.3 K/cumm [facility] Monocyte abs 1.5(H) 0.2 - 0.8 K/cumm [facility] Eosinophil abs 0.0 0.0 - 0.5 K/cumm [facility] Basophil abs 0.0 0.0 - 0.1 K/cumm [facility] Neutrophil pct 74.7 % [facility] Comment: Interpretive Data Percent cell count reference ranges are not reported, since discordance with absolute values may lead to misinterpretation of CBC data. Current Interpretive Data was last revised on 2017. Imm gran pct 0.5 % [facility] Comment: Interpretive Data Percent cell count reference ranges are not reported, since discordance with absolute values may lead to misinterpretation of CBC data. Current Interpretive Data was last revised on 2017. Lymphocyte pct 11.0 % [facility] Comment: Interpretive Data Percent cell count reference ranges are not reported, since discordance with absolute values may lead to misinterpretation of CBC data. Current Interpretive Data was last revised on 2017. Monocyte pct 13.7 % [facility] Comment: Interpretive Data Percent cell count reference ranges are not reported, since discordance with absolute values may lead to misinterpretation of CBC data. Current Interpretive Data was last revised on 2017. Eosinophil pct 0.0 % [facility] Comment: Interpretive Data Percent cell count reference ranges are not reported, since discordance with absolute values may lead to misinterpretation of CBC data. Current Interpretive Data was last revised on 2017. Basophil pct 0.1 % [facility] Comment: Interpretive Data Percent cell count reference ranges are not reported, since discordance with absolute values may lead to misinterpretation of CBC data. Current Interpretive Data was last revised on 2017. Blood 07/25/2024 8:19 PM CDT 07/25/2024 8:35 PM CDT Renae Fontenotmino DO LAB BLOOD ORDERABLE S Final Result Performing Organization Address City/[facility]/ZIP Co de Phone Number [facility] Department [place] [address] * (ABNORMAL) CBC with auto differential (07/25/2024 8:19 PM CDT) [facility] WBC 10.9(H) 3.8 - 9.9 K/cumm Hgb 13.5 13.0 - 17.5 g/dL [facility] Hct 39.4 38.9 - 50.3 % [facility] Plt 239 150 - 400 K/cumm [facility] MPV 11.0 9.1 - 12.3 fL [facility] RBC 3.75(L) 4.30 - 5.80 M/cumm [facility] MCV 105.1(H) 81.3 - 96.4 fL [facility] MCH 36.0(H) 27.1 - 33.3 pg [facility] MCHC 34.3 32.3 - 35.7 g/dL [facility] RDW CV 12.8 11.1 - 14.9 % [facility] RDW SD 49.1(H) 35.7 - 48.1 fL [facility] NRBC abs 0.00 0.00 - 0.01 K/cumm [facility] Blood 07/25/2024 8:19 PM CDT 07/25/2024 8:35 PM CDT us Reane Fontenotminiman DO LAB BLOOD ORDERABLE S Final Result [facility] [place] [address] * Phosphorus (07/25/2024 8:19 PM CDT) Pathologist [facility] Phosphorus, pl 3.8 2.3 - 4.5 mg/dL Comment:Hemolyzed; result ma y be falsely elevated Blood 07/25/2024 8:19 PM CDT 07/25/2024 8:35 PM CDT us Renae Dugolenski Giacomino DO LAB BLOOD ORDERABLE S Final Result Performing Organization Address City/[facility]/ZIP Co de Phone Number [facility] [place] [address] * Magnesium (07/25/2024 8:19 PM CDT) [facility] Magnesium 2.2 1.4 - 2.5 mg/dL Blood 07/25/2024 8:19 PM CDT 07/25/2024 8:35 PM CDT Renae MAG Interactivekirtiski Giacomino DO LAB BLOOD ORDERABLE S Final Result Performing Organization Address [facility] Co de Phone Number [facility] [place] [address] * (ABNORMAL) Hepatic function panel (07/25/2024 8:19 PM CDT) Pathologist [facility] Bilirubin, total 0.7 0.1 - 1.2 mg/dL Bilirubin, direct See Comment 0.1 - 0.3 mg/dL [facility] Comment:Credited; Hemolyzed Specimen Protein, pl 7.2 6.5 - 8.5 g/dL [facility] Albumin 3.4(L) 3.5 - 5.0 g/dL [facility] Alk phos 52 40 - 130 Units/L [facility] Comment:Hemolyzed; result ma y be falsely decreased ALT See Comment 7 - 55 Units/L [facility] Comment:Credited; Hemolyzed Specimen AST See Comment 10 - 50 Units/L [facility] Comment:Credited; Hemolyzed Specimen Blood 07/25/2024 8:19 PM CDT 07/25/2024 8:35 PM CDT us Renae Hebertkirtiaurea Giacomino DO LAB BLOOD ORDERABLE S Final Result [facility] [place] [address] * (ABNORMAL) Basic metabolic panel (07/25/2024 8:19 PM CDT) Sodium 132(L) 135 - 145 mmol/L Potassium, pl See Comment 3.3 - 4.9 mmol/L [facility] Comment:Credited; Hemolyzed Specimen Chloride 93(L) 97 - 110 mmol/L [facility] CO2 26 22 - 32 mmol/L [facility] Anion gap 13 2 - 15 mmol/L [facility] BUN 22 6 - 25 mg/dL [facility] Creatinine 1.08 0.80 - 1.30 mg/dL [facility] Glucose 154 70 - 199 mg/dL [facility] Comment: Interpretive Data Fasting glucose [...] 2022. Calcium 8.3(L) 8.5 - 10.3 mg/dL [facility] Blood 07/25/2024 8:19 PM CDT 07/25/2024 8:35 PM CDT us Renae Saavedraacomino DO LAB BLOOD ORDERABLE S Final Result [facility] [place] [address] * POCT glucose (07/25/2024 4:53 PM CDT) Glucose, POC 141 70 - 199 mg/dL Blood 07/25/2024 4:53 PM CDT 07/25/2024 4:53 PM CDT us Renae Dugolenski Giacomino DO LAB POCT ORDERABLES - DEVICE Final Result [facility] Department [place] [address] * (ABNORMAL) aPTT (07/25/2024 12:29 PM CDT) [facility] aPTT 55(H) 28 - 38 sec Comment: Interpretive Data Heparin therapeutic range: 66.0 - 100.0 seconds. Range based on correlation with therapeutic heparin activity range of 0.3 - 0.7 Units/mL. Current interpretive data was last revised on 2023. Blood 07/25/2024 12:2 9 PM CDT 07/25/2024 12:45 PM CDT Narrative [facility] - 07/25/2024 1:08 PM CDT Draw STAT [...] LAB BLOOD ORDERABLE S Final Result [facility] [place] [address] * POCT glucose (07/25/2024 11:48 AM CDT) Glucose, POC 128 70 - 199 mg/dL Blood 07/25/2024 11:4 8 AM CDT 07/25/2024 11:48 AM CDT us Renae Moseley DO LAB POCT ORDERABLES - DEVICE Final Result [facility] [place] [address] * XR Chest 1 View (07/25/2024 11:30 [...] AM CDT 07/25/2024 10:41 AM CDT Raheem SANTA - 07/25/2024 11:05 AM CDT Draw STAT [...] LAB BLOOD ORDERABLE S Final Result [facility] [place] [address] * eGFR (07/25/2024 7:58 AM CDT) eGFR [...] CDT 07/25/2024 8:21 AM CDT us Renae Dualma rosalenski Giacomino DO LAB BLOOD ORDERABLE S Final Result Performing Organization Address City/[facility]/ZIP Co de Phone Number [facility] [place] [address] * Thyroid Function [place] (07/25/2024 7:58 AM CDT) TSH 4.07 0.30 - 4.20 mcIUnit/mL Blood 07/25/2024 7:58 AM CDT 07/25/2024 8:21 AM CDT Renae Dualma rosalenski Giacomino DO LAB BLOOD ORDERABLE S Final Result Performing Organization Address City/[facility] Co de Phone Number [facility] [place] [address] * T4, free (07/25/2024 7:58 AM CDT) Free T4 1.60 0.90 - 1.70 ng/dL Blood 07/25/2024 7:58 AM CDT 07/25/2024 8:21 AM CDT Renae Dukirtiski Giacomino DO LAB BLOOD ORDERABLE S Final Result Performing Organization Address City/[facility] Co de Phone Number [facility] [place] [address] * Phosphorus (07/25/2024 7:58 AM CDT) Phosphorus, pl 4.5 2.3 - 4.5 mg/dL Blood 07/25/2024 7:58 AM CDT 07/25/2024 8:18 AM CDT us Renae Dukirtiski Giacomino DO LAB BLOOD ORDERABLE S Final Result Performing Organization Address City/[facility]/ZIP Co de Phone Number [facility] [place] [address] * (ABNORMAL) Magnesium (07/25/2024 7:58 AM CDT) Pathologist [facility] Magnesium 2.6(H) 1.4 - 2.5 mg/dL Blood 07/25/2024 7:58 AM CDT 07/25/2024 8:18 AM CDT us Renae Saavedraacomino DO LAB BLOOD ORDERABLE S Final Result Performing Organization Address [facility] de Phone Number [facility] Department [place] [address] * (ABNORMAL) Basic metabolic panel (07/25/2024 7:58 AM CDT) Pathologist [facility] Sodium 134(L) 135 - 145 mmol/L Potassium, pl 3.6 3.3 - 4.9 mmol/L [facility] Chloride 94(L) 97 - 110 mmol/L [facility] CO2 28 22 - 32 mmol/L [facility] Anion gap 12 2 - 15 mmol/L [facility] BUN 15 6 - 25 mg/dL [facility] Creatinine 0.97 0.80 - 1.30 mg/dL [facility] Glucose 123 70 - 199 mg/dL [facility] Comment: Interpretive Data Fasting glucose [...] 2022. Calcium 8.6 8.5 - 10.3 mg/dL [facility] Blood 07/25/2024 7:58 AM CDT 07/25/2024 8:18 AM CDT us Renae Dugolenski Giacomino DO LAB BLOOD ORDERABLE S Final Result Performing Organization Address City/[facility]/ZIP Co de Phone Number [facility] Department [place] [address] * POCT glucose (07/25/2024 7:57 AM CDT) Glucose, POC 126 70 - 199 mg/dL Blood 07/25/2024 7:57 AM CDT 07/25/2024 7:57 AM CDT us Renae Dugolenski Giacomino DO LAB POCT ORDERABLES - DEVICE Final Result Performing Organization Address [facility] Co de Phone Number [facility] Department [place] [address] * aPTT (07/25/2024 7:53 AM CDT) aPTT 33 28 - 38 sec Comment: Interpretive Data Heparin therapeutic range: 66.0 - 100.0 seconds. Range based on correlation with therapeutic heparin activity range of 0.3 - 0.7 Units/mL. Current interpretive data was last revised on 2023. Blood 07/25/2024 7:53 AM CDT 07/25/2024 8:19 AM CDT Narrative [facility] - 07/25/2024 8:54 AM CDT Baseline prior to bivalirudin initiation. us Renae Dugolenski Giacomino DO LAB BLOOD ORDERABLE S Final Result Performing Organization Address City/[facility]/ZIP Co de Phone Number [facility] [place] [address] * (ABNORMAL) Protime-INR (07/25/2024 7:53 AM CDT) [facility] PT 14.5(H) 9.7 - 13.0 sec INR 1.33(H) 0.90 - 1.20 [facility] Comment: Interpretive data Oral anticoagulant therapeutic ranges: Venous thromboembolism prophylaxis or treatment: 2.0-3.0 CARDIOLOGY Standard range: 2.0-3.0 High-intensity range: 2.5-3.5 Refer to indication-specific guidelines for appropriate target ranges for prosthetic heart valve replacement. Current interpretive data was last revised on 2019. Blood 07/25/2024 7:53 AM CDT 07/25/2024 8:19 AM CDT Narrative [facility] - 07/25/2024 8:54 AM CDT Baseline prior to bivalirudin initiation. Renae Moseley DO LAB BLOOD ORDERABLE S Final Result [facility] Department [place] [address] * Respiratory pathogen panel Nasopharyngeal (07/25/2024 6:43 AM CDT) [facility] Influenza A RNA Not Detected Not Detected Influenza B RNA Not Detected Not Detected [facility] RSV RNA Not Detected Not Detected [facility] COVID-19 RNA Not Detected Not Detected [facility] Coronavirus 229E RNA Not Detected Not Detected [facility] Coronavirus HKU1 RNA Not Detected Not Detected [facility] Coronavirus NL63 RNA Not Detected Not Detected [facility] Coronavirus OC43 RNA Not Detected Not Detected [facility] Adenovirus DNA Not Detected Not Detected [facility] Metapneumovirus RNA Not Detected Not Detected [facility] Rhinovirus/Enterov irus RNA Not Detected Not Detected [facility] Parainfluenza 1 RNA Not Detected Not Detected [facility] Parainfluenza 2 RNA Not Detected Not Detected [facility] Parainfluenza 3 RNA Not Detected Not Detected [facility] Parainfluenza 4 RNA Not Detected Not Detected [facility] B. pertussis DNA Not Detected Not Detected [facility] B. parapertussis DNA Not Detected Not Detected [facility] C. pneumoniae DNA Not Detected Not Detected [facility] M. pneumoniae DNA Not Detected Not Detected [facility] Nasopharyngeal 07/25/2024 6: 43 AM CDT 07/25/2024 7:00 AM CDT Narrative [facility] - 07/25/2024 8:12 AM CDT Is the Patient experiencing symptoms consistent with COVID?->Unknown Surveillance testing for transplant patient?->No Interpretive Data The [employer] FilmArray Respiratory Panel (RP2.1) assay is a [...] assay has FDA clearance for testing of RN RESIDENTIAL swabs. The performance of additional specimen types has been assessed by the performing laboratory. The performance characteristics of this assay have been determined by [facility]. Current interpretive data was last revised on 22. Renae Moseley DO LAB MICROBIOLOGY - GENERAL ORDERABLES Final Result [facility] [place] [address] * XR Chest 1 View (07/25/2024 4:34 [...] Troponin I high-sensitivity (07/25/2024 3:45 AM CDT) Trop I hs 33 <=35 ng/L Comment: Interpretive Data For further hscTnI resources including the diagnostic algorithm and an aid in interpretation, copy and paste this link: [email or web address].testcatalog.org/show/[email or web address] Current Interpretive Data last revised 2019. Blood 07/25/2024 3:45 AM CDT 07/25/2024 4:16 AM CDT us Nick Veliz MD LAB BLOOD ORDERABLES Fin al Result [facility] [place] [address] * eGFR (07/25/2024 3:45 AM CDT) eGFR [...] MD LAB BLOOD ORDERABLES Fin al Result [facility] [place] [address] * (ABNORMAL) Differential, auto (07/25/2024 3:45 AM CDT) Neutrophil abs 8.4(H) 1.5 - 6.5 K/cumm Imm gran abs 0.1 0.0 - 0.1 K/cumm [facility] Lymphocyte abs 1.2 0.8 - 3.3 K/cumm [facility] Monocyte abs 1.5(H) 0.2 - 0.8 K/cumm [facility] Eosinophil abs 0.0 0.0 - 0.5 K/cumm [facility] Basophil abs 0.0 0.0 - 0.1 K/cumm [facility] Neutrophil pct 74.7 % [facility] Comment: Interpretive Data Percent cell count reference ranges are not reported, since discordance with absolute values may lead to misinterpretation of CBC data. Current Interpretive Data was last revised on 2017. Imm gran pct 0.5 % [facility] Comment: Interpretive Data Percent cell count reference ranges are not reported, since discordance with absolute values may lead to misinterpretation of CBC data. Current Interpretive Data was last revised on 2017. Lymphocyte pct 11.1 % [facility] Comment: Interpretive Data Percent cell count reference ranges are not reported, since discordance with absolute values may lead to misinterpretation of CBC data. Current Interpretive Data was last revised on 2017. Monocyte pct 13.3 % [facility] Comment: Interpretive Data Percent cell count reference ranges are not reported, since discordance with absolute values may lead to misinterpretation of CBC data. Current Interpretive Data was last revised on 2017. Eosinophil pct 0.0 % [facility] Comment: Interpretive Data Percent cell count reference ranges are not reported, since discordance with absolute values may lead to misinterpretation of CBC data. Current Interpretive Data was last revised on 2017. Basophil pct 0.4 % [facility] Comment: Interpretive Data Percent cell count reference ranges are not reported, since discordance with absolute values may lead to misinterpretation of CBC data. Current Interpretive Data was last revised on 2017. Blood 07/25/2024 3:45 AM CDT 07/25/2024 4:15 AM CDT Nick Veliz MD LAB BLOOD ORDERABLES Fin al Result [facility] [place] [address] * (ABNORMAL) Pro B-type natriuretic peptide (07/25/2024 [...] MD LAB BLOOD ORDERABLES Fin al Result [facility] [place] [address] * (ABNORMAL) CBC with auto differential (07/25/2024 3:45 AM CDT) WBC 11.2(H) 3.8 - 9.9 K/cumm Hgb 13.9 13.0 - 17.5 g/dL [facility] Hct 40.2 38.9 - 50.3 % [facility] Plt 244 150 - 400 K/cumm [facility] MPV 10.8 9.1 - 12.3 fL [facility] RBC 3.91(L) 4.30 - 5.80 M/cumm [facility] MCV 102.8(H) 81.3 - 96.4 fL [facility] MCH 35.5(H) 27.1 - 33.3 pg [facility] MCHC 34.6 32.3 - 35.7 g/dL [facility] RDW CV 12.9 11.1 - 14.9 % [facility] RDW SD 49.1(H) 35.7 - 48.1 fL [facility] NRBC abs 0.00 0.00 - 0.01 K/cumm [facility] Blood 07/25/2024 3:45 AM CDT 07/25/2024 4:15 AM CDT Nick Veliz MD LAB BLOOD ORDERABLES Fin al Result Performing Organization Address [facility] de Phone Number [facility] [place] [address] * Lactate, whole blood (07/25/2024 3:45 AM CDT) Lactate, bld 1.9 0.7 - 2.0 mmol/L Blood 07/25/2024 3:45 AM CDT 07/25/2024 4:03 AM CDT Nick Veliz MD LAB BLOOD ORDERABLES Fin al Result Performing Organization Address [facility] [place] [address] * aPTT (07/25/2024 3:45 AM CDT) aPTT 37 28 - 38 sec Comment: Interpretive Data Heparin therapeutic range: 66.0 - 100.0 seconds. Range based on correlation with therapeutic heparin activity range of 0.3 - 0.7 Units/mL. Current interpretive data was last revised on 2023. Blood 07/25/2024 3:45 AM CDT 07/25/2024 4:15 AM CDT Nick Veliz MD LAB BLOOD ORDERABLES Fin al Result Performing Organization Address [facility] Co de Phone Number [facility] [place] [address] * (ABNORMAL) Protime-INR (07/25/2024 3:45 AM CDT) PT 16.2(H) 9.7 - 13.0 sec INR 1.49(H) 0.90 - 1.20 [facility] Comment: Interpretive data Oral anticoagulant therapeutic ranges: Venous thromboembolism prophylaxis or treatment: 2.0-3.0 CARDIOLOGY Standard range: 2.0-3.0 High-intensity range: 2.5-3.5 Refer to indication-specific guidelines for appropriate target ranges for prosthetic heart valve replacement. Current interpretive data was last revised on 2019. Blood 07/25/2024 3:45 AM CDT 07/25/2024 4:15 AM CDT us Nick Veliz MD LAB BLOOD ORDERABLES Fin al Result Performing Organization Address City/[facility] Co de Phone Number [facility] [place] [address] * Type and screen (07/25/2024 3:45 AM CDT) ABO Rh A Positive Kumar, indirect Negative [facility] Blood 07/25/2024 3:45 AM CDT 07/25/2024 4:12 AM CDT Nick Veliz MD LAB BLOOD BANK TEST ORDE RABLES Final Result Performing Organization Address [facility] de Phone Number [facility] [place] [address] * (ABNORMAL) Phosphorus (07/25/2024 3:45 AM CDT) Phosphorus, pl 4.7(H) 2.3 - 4.5 mg/dL Blood 07/25/2024 3:45 AM CDT 07/25/2024 4:15 AM CDT Nick Veliz MD LAB BLOOD ORDERABLES Fin al Result Performing Organization Address [facility] de Phone Number [facility] [place] [address] * Magnesium (07/25/2024 3:45 AM CDT) Magnesium 1.6 1.4 - 2.5 mg/dL Blood 07/25/2024 3:45 AM CDT 07/25/2024 4:15 AM CDT Nick Veliz MD LAB BLOOD ORDERABLES Fin al Result Performing Organization Address [facility]/ZIP Co de Phone Number [facility] [place] [address] * Hemoglobin A1c (07/25/2024 3:45 AM CDT) Pathologist [facility] Hgb A1C 5.3 4.0 - 5.6 % Estimated Average Glucose 105 mg/dL [facility] Comment: The ADA recommends reporting an estimated Average Glucose (eAG) with all Hemoglobin A1c results using the equation derived from a study of 507 normal and diabetic adults. Minority populations were underrepresented and children were not included. (Diabetes Care 2020; 43(S1): S66-S76). The eAG is not equivalent to a fasting glucose. Blood 07/25/2024 3:45 AM CDT 07/25/2024 4:16 AM CDT Result [facility] Nick Veliz MD LAB BLOOD ORDERABLES Fin al Result Performing Organization Address City/[facility] Co de Phone Number [facility] [place] [address] * Folate (07/25/2024 3:45 AM CDT) Pathologist [facility] Folic acid >20.0 >=5.0 ng/mL Blood 07/25/2024 3:45 AM CDT 07/25/2024 4:15 AM CDT Renae Moseley DO LAB BLOOD ORDERABLE S Final Result Performing Organization Address City/[facility]/ZIP Co de Phone Number [facility] [place] [address] * (ABNORMAL) Vitamin B12 (07/25/2024 3:45 AM CDT) Vitamin B12 1,323(H) 230 - 1,250 pg/mL Blood 07/25/2024 3:45 AM CDT 07/25/2024 4:15 AM CDT us Renae Moseley DO LAB BLOOD ORDERABLE S Final Result [facility] [place] [address] * Lipid panel (07/25/2024 3:45 AM CDT) [...] revised on 2017. Triglycerides 60 <=149 mg/dL [facility] Comment: Interpretive Data Ages < or = [...] revised on 2017. HDL 75 >=40 mg/dL [facility] Comment: Interpretive Data Ages < [...] on 2017. LDL, calculated 43 <=129 mg/dL [facility] Comment: Interpretive Data Ages < [...] 3. Steve Koo et al. MERLIN Cardiol. 2019August 28;5(5):540-548. doi: [email or web address] Current Interpretive Data was last revised on 2023. Non-HDL Cholesterol 56 mg/dL [facility] Comment: Interpretive Data Ages < [...] last revised on 2017. Chol/HDL ratio 2 [facility] Blood 07/25/2024 3:45 AM CDT 07/25/2024 4:15 AM CDT Nick Veliz MD LAB BLOOD ORDERABLES Fin al Result [facility] [place] [address] * (ABNORMAL) Comprehensive metabolic panel (07/25/2024 3:45 AM CDT) Pathologist [facility] Sodium 135 135 - 145 mmol/L Potassium, pl 3.7 3.3 - 4.9 mmol/L [facility] Chloride 94(L) 97 - 110 mmol/L [facility] CO2 26 22 - 32 mmol/L [facility] Anion gap 15 2 - 15 mmol/L [facility] BUN 15 6 - 25 mg/dL [facility] Creatinine 1.08 0.80 - 1.30 mg/dL [facility] Glucose 133 70 - 199 mg/dL [facility] Comment: Interpretive Data Fasting glucose [...] 2022. Calcium 8.9 8.5 - 10.3 mg/dL [facility] Bilirubin, total 0.9 0.1 - 1.2 mg/dL [facility] Protein, pl 7.0 6.5 - 8.5 g/dL [facility] Albumin 3.6 3.5 - 5.0 g/dL [facility] Alk phos 62 40 - 130 Units/L [facility] ALT 13 7 - 55 Units/L [facility] AST 38 10 - 50 Units/L [facility] Blood 07/25/2024 3:45 AM CDT 07/25/2024 4:15 AM CDT Nick Veliz MD LAB BLOOD ORDERABLES Fin al Result Performing Organization Address City/[facility] Co de Phone Number [facility] [place] [address] * (ABNORMAL) Troponin I high-sensitivity (06/22/2024 5:59 AM MAGAZINE REPAIRER) Trop I hs 37(H) <=35 ng/L Comment: Interpretive Data For further hscTnI resources including the diagnostic algorithm and an aid in interpretation, copy and paste this link: [email or web address].testcatalog.org/show/[email or web address] Current Interpretive Data last revised 2019. Blood 06/22/2024 5:59 AM MAGAZINE REPAIRER 06/22/2024 6:19 AM MAGAZINE REPAIRER us Aide Duffy NP LAB BLOOD ORDERABLES F inal Result Performing Organization Address [facility] Co de Phone Number [facility] Department [place] [address] * eGFR (06/22/2024 5:59 AM MAGAZINE REPAIRER) eGFR 88 >=60 mL/min/1. 73 m2 Comment: [...] last reviewed 2021. Blood 06/22/2024 5:59 AM MAGAZINE REPAIRER 06/22/2024 6:19 AM MAGAZINE REPAIRER Jaylin Kamara MD LAB BLOOD ORDERABLES Teetee keith Result [facility] [place] [address] * (ABNORMAL) Differential, auto (06/22/2024 5:59 AM MAGAZINE REPAIRER) Neutrophil abs 11.4(H) 1.5 - 6.5 K/cumm Imm gran abs 0.1 0.0 - 0.1 K/cumm [facility] Lymphocyte abs 0.8 0.8 - 3.3 K/cumm [facility] Monocyte abs 1.6(H) 0.2 - 0.8 K/cumm [facility] Eosinophil abs 0.0 0.0 - 0.5 K/cumm [facility] Basophil abs 0.0 0.0 - 0.1 K/cumm [facility] Neutrophil pct 82.4 % [facility] Comment: Interpretive Data Percent cell count reference ranges are not reported, since discordance with absolute values may lead to misinterpretation of CBC data. Current Interpretive Data was last revised on 2017. Imm gran pct 0.4 % [facility] Comment: Interpretive Data Percent cell count reference ranges are not reported, since discordance with absolute values may lead to misinterpretation of CBC data. Current Interpretive Data was last revised on 2017. Lymphocyte pct 5.6 % [facility] Comment: Interpretive Data Percent cell count reference ranges are not reported, since discordance with absolute values may lead to misinterpretation of CBC data. Current Interpretive Data was last revised on 2017. Monocyte pct 11.4 % [facility] Comment: Interpretive Data Percent cell count reference ranges are not reported, since discordance with absolute values may lead to misinterpretation of CBC data. Current Interpretive Data was last revised on 2017. Eosinophil pct 0.1 % [facility] Comment: Interpretive Data Percent cell count reference ranges are not reported, since discordance with absolute values may lead to misinterpretation of CBC data. Current Interpretive Data was last revised on 2017. Basophil pct 0.1 % [facility] Comment: Interpretive Data Percent cell count reference ranges are not reported, since discordance with absolute values may lead to misinterpretation of CBC data. Current Interpretive Data was last revised on 2017. Blood 06/22/2024 5:59 AM MAGAZINE REPAIRER 06/22/2024 6:19 AM MAGAZINE REPAIRER Aide Duffy NP LAB BLOOD ORDERABLES F inal Result Performing Organization Address [facility] Co de Phone Number [facility] Department [place] [address] * HIV 1/2 Antibody plus p24 Antigen Blood (06/22/2024 5:59 AM MAGAZINE REPAIRER) Pathologist [facility] HIV 1/2 ab + p24 ag Nonreactive Nonreactive Comment:Nonreactive for HIV- 1 antigen and HIV-1/HIV-2 antibodies. No laboratory evidence of HIV infection. If acute HIV infection is suspected, consider testing for HIV-1 RNA. Current interpretive data was last revised on 21. Blood 06/22/2024 5:59 AM MAGAZINE REPAIRER 06/22/2024 6:19 AM MAGAZINE REPAIRER Clovis Villalpando MD LAB MICROBIOLOGY - GENERA L ORDERABLES Final Result Performing Organization Address [facility] Co de Phone Number [facility] Department [place] [address] * (ABNORMAL) CBC with auto differential (06/22/2024 5:59 AM MAGAZINE REPAIRER) Pathologist [facility] WBC 13.9(H) 3.8 - 9.9 K/cumm Hgb 12.4(L) 13.0 - 17.5 g/dL [facility] Hct 34.6(L) 38.9 - 50.3 % [facility] Plt 189 150 - 400 K/cumm [facility] MPV 10.7 9.1 - 12.3 fL [facility] RBC 3.46(L) 4.30 - 5.80 M/cumm [facility] MCV 100.0(H) 81.3 - 96.4 fL [facility] MCH 35.8(H) 27.1 - 33.3 pg [facility] MCHC 35.8(H) 32.3 - 35.7 g/dL [facility] RDW CV 11.7 11.1 - 14.9 % [facility] RDW SD 42.6 35.7 - 48.1 fL [facility] NRBC abs 0.00 0.00 - 0.01 K/cumm [facility] Blood 06/22/2024 5:59 AM MAGAZINE REPAIRER 06/22/2024 6:19 AM MAGAZINE REPAIRER us Aide Duffy NP LAB BLOOD ORDERABLES F inal Result Performing Organization Address City/[facility]/ZIP Co de Phone Number [facility] [place] [address] * Hepatitis C antibody Blood (06/22/2024 5:59 AM MAGAZINE REPAIRER) [facility] Hep C Ab Nonreactive Nonreactive Comment:Antibodies to HCV no t detected. Does NOT exclude the possibility of recent exposure to HCV. Current interpretive data was last revised on 21 Blood 06/22/2024 5:59 AM MAGAZINE REPAIRER 06/22/2024 6:19 AM MAGAZINE REPAIRER us Clovis Villalpando MD LAB MICROBIOLOGY - GENERA L ORDERABLES Final Result [facility] [place] [address] * RPR Blood (06/22/2024 5:59 AM MAGAZINE REPAIRER) RPR Nonreactive Nonreactive Blood 06/22/2024 5:59 AM MAGAZINE REPAIRER 06/22/2024 6:19 AM MAGAZINE REPAIRER us Clovis Villalpando MD LAB MICROBIOLOGY - GENERA L ORDERABLES Final Result Performing Organization Address [facility] de Phone Number [facility] [place] [address] * Hepatitis B Surface Antigen Blood (06/22/2024 5:59 AM MAGAZINE REPAIRER) HepBsAg Nonreactive Nonreactive Blood 06/22/2024 5:59 AM MAGAZINE REPAIRER 06/22/2024 6:19 AM MAGAZINE REPAIRER us Clovis Villalpando MD LAB MICROBIOLOGY - GENERA L ORDERABLES Final Result Performing Organization Address [facility] de Phone Number [facility] [place] [address] * Phosphorus (06/22/2024 5:59 AM MAGAZINE REPAIRER) Phosphorus, pl 4.0 2.3 - 4.5 mg/dL Blood 06/22/2024 5:59 AM MAGAZINE REPAIRER 06/22/2024 6:19 AM MAGAZINE REPAIRER Aide Duffy NP LAB BLOOD ORDERABLES F inal Result Performing Organization Address [facility] [place] [address] * Magnesium (06/22/2024 5:59 AM MAGAZINE REPAIRER) Magnesium 1.9 1.4 - 2.5 mg/dL Blood 06/22/2024 5:59 AM MAGAZINE REPAIRER 06/22/2024 6:19 AM MAGAZINE REPAIRER Aide Duffy NP LAB BLOOD ORDERABLES F inal Result [facility] Department [place] [address] * (ABNORMAL) Basic metabolic panel (06/22/2024 5:59 AM MAGAZINE REPAIRER) Pathologist [facility] Sodium 127(L) 135 - 145 mmol/L Potassium, pl 4.7 3.3 - 4.9 mmol/L [facility] Chloride 89(L) 97 - 110 mmol/L [facility] CO2 27 22 - 32 mmol/L [facility] Anion gap 11 2 - 15 mmol/L [facility] BUN 17 6 - 25 mg/dL [facility] Creatinine 0.92 0.80 - 1.30 mg/dL [facility] Glucose 138 70 - 199 mg/dL [facility] Comment: Interpretive Data Fasting glucose [...] 2022. Calcium 8.8 8.5 - 10.3 mg/dL [facility] Blood 06/22/2024 5:59 AM MAGAZINE REPAIRER 06/22/2024 6:19 AM MAGAZINE REPAIRER us Jaylin Kamara MD LAB BLOOD ORDERABLES Teetee l Result Performing Organization Address [facility]/ZIP Co de Phone Number [facility] Department [place] [address] * (ABNORMAL) Urinalysis reflex to microscopic and culture Urine (06/21/2024 4:33 PM MAGAZINE REPAIRER) Color, ur Yellow Yellow Clarity, ur Clear Clear [facility] Specific gravity, ur 1.027 1.003 - 1.030 [facility] pH, urine 6.0 [facility] Comment: Interpretive Data U rine pH is affected by diet, medications, systemic acid-base disturbances, and renal tubular function. pH may affect urinary stone formation. For example, urine pH below 6.0 may help reduce the tendency for calcium phosphate stones and pH greater than 6.0 may reduce the tendency for uric acid stone formation. Source: [facility] Current Interpretive Data was last revised on 2017 Protein, ur ql 1+(A) Negative [facility] Glucose, ur ql Negative Negative [facility] Ketones, ur 1+(A) Negative [facility] Bilirubin, ur Negative Negative [facility] Blood, ur 1+(A) Negative [facility] Urobilinogen, ur <2.0 <2.0 mg/dL [facility] Nitrite, ur Negative Negative [facility] Leukocyte esterase, ur Trace(A) Negative [facility] UA reflex comment Reflex to microscopic UA will be performed. [facility] Urine 06/21/2024 4:33 PM MAGAZINE REPAIRER 06/21/2024 4:43 PM MAGAZINE REPAIRER us Aide Duffy NP LAB MICROBIOLOGY - GEN ERAL ORDERABLES Final Result [facility] [place] [address] * (ABNORMAL) Urinalysis, microscopic only (06/21/2024 4:33 PM MAGAZINE REPAIRER) WBC, ur 0-5 0 - 5 /HPF RBC, ur 3-5(A) 0 - 2 /HPF [facility] Epithelial cells, squamous, ur 1-5 0 - 5 /HPF [facility] Mucous, ur Present(A) [facility] Amorphous crystals, ur 2+(A) [facility] Hyaline casts, ur 21-50(A) 0 - 10 /LPF [facility] Culture Reflex Comment Reflex conditions for urine culture (WBC >10) not met. [facility] Urine 06/21/2024 4:33 PM MAGAZINE REPAIRER 06/21/2024 4:43 PM MAGAZINE REPAIRER Result [facility] Aide Duffy RN RESIDENTIAL LAB URINE ORDERABLES F inal Result Performing Organization Address [facility] [place] [address] * (ABNORMAL) Troponin I high-sensitivity (06/21/2024 3:57 PM MAGAZINE REPAIRER) Trop I hs 64(H) <=35 ng/L Comment: Interpretive Data For further hscTnI resources including the diagnostic algorithm and an aid in interpretation, copy and paste this link: [email or web address] Current Interpretive Data last revised 2019. Blood 06/21/2024 3:57 PM MAGAZINE REPAIRER 06/21/2024 4:22 PM MAGAZINE REPAIRER Result [facility] Aide Duffy RN RESIDENTIAL LAB BLOOD ORDERABLES F inal Result Performing Organization Address [facility] de Phone Number [facility] [place] [address] * Blood culture Blood (06/21/2024 3:57 PM MAGAZINE REPAIRER) Report Final Report: No growth Blood 06/21/2024 3:57 PM MAGAZINE REPAIRER 06/21/2024 4:18 PM MAGAZINE REPAIRER Narrative [facility] - 06/26/2024 7:01 AM MAGAZINE REPAIRER From a different site than #1. Collection->Peripheral [...] performance characteristics have been verified by the [facility] Microbiology Laboratory. For questions about this culture, contact the Microbiology Laboratory at [phone]. Interpretive data was last revised on 24. Aide Duffy RN RESIDENTIAL LAB MICROBIOLOGY - GEN ERAL ORDERABLES Final Result [facility] Department [place] [address] * Blood culture Blood (06/21/2024 3:57 PM MAGAZINE REPAIRER) Report Final Report: No growth Blood 06/21/2024 3:57 PM MAGAZINE REPAIRER 06/21/2024 4:18 PM MAGAZINE REPAIRER Narrative [facility] - 06/26/2024 7:01 AM MAGAZINE REPAIRER Collection->Peripheral 1. Blood cultures are incubated for [...] performance characteristics have been verified by the [facility] Microbiology Laboratory. For questions about this culture, contact the Microbiology Laboratory at [phone]. Interpretive data was last revised on 24. Aide Duffy NP LAB MICROBIOLOGY - GEN ERAL ORDERABLES Final Result [facility] Department [place] [address] * (ABNORMAL) Blood gas, arterial (06/21/2024 3:57 PM MAGAZINE REPAIRER) pH, Art 7.43 7.35 - 7.45 PCO2, Arterial 34(L) 35 - 45 mmHg [facility] PO2, Arterial 132(H) 83 - 108 mmHg [facility] HCO3 Art (Calculated) 23 20 - 30 mmol/L [facility] BE, art -1 mmol/L [facility] Comment: Interpretive Data No Reference Range Established Current Interpretive Data was last revised on 2017 O2 Sat Art (Measured) 99(H) 90 - 95 % [facility] Blood 06/21/2024 3:57 PM MAGAZINE REPAIRER 06/21/2024 4:14 PM MAGAZINE REPAIRER Aide Duffy NP LAB BLOOD ORDERABLES F inal Result Performing Organization Address [facility] Co de Phone Number [facility] Department [place] [address] * Sodium, urine, random (06/21/2024 1:19 PM MAGAZINE REPAIRER) Sodium, ur 45 mmol/L Comment: Interpretive Data No reference range established. Current interpretive data was last revised 2018. Urine 06/21/2024 1:19 PM MAGAZINE REPAIRER 06/21/2024 3:21 PM MAGAZINE REPAIRER Jaylin Kamara MD LAB URINE ORDERABLES Teetee l Result Performing Organization Address City/[facility]/ZIP Co de Phone Number [facility] Department [place] [address] * Osmolality, urine (06/21/2024 1:19 PM MAGAZINE REPAIRER) [facility] Osmo, ur 420 mOsm/kg Urine 06/21/2024 1:19 PM MAGAZINE REPAIRER 06/21/2024 3:21 PM MAGAZINE REPAIRER Jaylin Kamara MD LAB URINE ORDERABLES Teetee l Result [facility] [place] [address] * Respiratory pathogen panel Nasopharyngeal (06/21/2024 1:03 PM MAGAZINE REPAIRER) [facility] Influenza A RNA Not Detected Not Detected Influenza B RNA Not Detected Not Detected [facility] RSV RNA Not Detected Not Detected [facility] COVID-19 RNA Not Detected Not Detected [facility] Coronavirus 229E RNA Not Detected Not Detected [facility] Coronavirus HKU1 RNA Not Detected Not Detected [facility] Coronavirus NL63 RNA Not Detected Not Detected [facility] Coronavirus OC43 RNA Not Detected Not Detected [facility] Adenovirus DNA Not Detected Not Detected [facility] Metapneumovirus RNA Not Detected Not Detected [facility] Rhinovirus/Enterov irus RNA Not Detected Not Detected [facility] Parainfluenza 1 RNA Not Detected Not Detected [facility] Parainfluenza 2 RNA Not Detected Not Detected [facility] Parainfluenza 3 RNA Not Detected Not Detected [facility] Parainfluenza 4 RNA Not Detected Not Detected [facility] B. pertussis DNA Not Detected Not Detected [facility] B. parapertussis DNA Not Detected Not Detected [facility] C. pneumoniae DNA Not Detected Not Detected [facility] M. pneumoniae DNA Not Detected Not Detected [facility] Nasopharyngeal 06/21/2024 1: 03 PM MAGAZINE REPAIRER 06/21/2024 1:13 PM MAGAZINE REPAIRER Narrative [facility] - 06/21/2024 2:10 PM MAGAZINE REPAIRER Is the Patient experiencing symptoms consistent with COVID?->Unknown Surveillance testing for transplant patient?->No Interpretive Data The [employer] FilmArray Respiratory Panel (RP2.1) assay is a [...] assay has FDA clearance for testing of RN RESIDENTIAL swabs. The performance of additional specimen types has been assessed by the performing laboratory. The performance characteristics of this assay have been determined by [facility]. Current interpretive data was last revised on 22. Jaylin Kamara MD LAB MICROBIOLOGY - GENERA L ORDERABLES Final Result [facility] [place] [address] * (ABNORMAL) Osmolality, blood (06/21/2024 1:03 PM MAGAZINE REPAIRER) Osmo 270(L) 275 - 300 mOsm/kg Blood 06/21/2024 1:03 PM MAGAZINE REPAIRER 06/21/2024 1:19 PM MAGAZINE REPAIRER us Jaylin Kamara MD LAB BLOOD ORDERABLES Teetee l Result Performing Organization Address [facility] Co de Phone Number [facility] [place] [address] * CT Recon Thoracic and Lumbar Spine W Contrast (C) (06/21/2024 12:38 PM MAGAZINE REPAIRER) Anatomical Region Laterality Modality Spine N/A Computed Tomogra phy 06/21/2024 1:25 PM MAGAZINE REPAIRER Impressions 06/21/2024 1:40 PM MAGAZINE REPAIRER No evidence of acute fracture in the thoracic or lumbar spine. Dictated by: Cory Fregoso MD The radiology attending physician has personally reviewed this study, and had reviewed and/or edited this written report and agrees with it. Electronically signed by: Jose Carver M.D, PHD Narrative 06/21/2024 1:40 PM MAGAZINE REPAIRER EXAMINATION: 1. CT of the thoracic spine [...] Abdomen Pelvis W Contrast (06/21/2024 12:38 PM MAGAZINE REPAIRER) Anatomical Region Laterality Modality Body N/A Computed Tomogra phy 06/21/2024 1:30 PM MAGAZINE REPAIRER Impressions 06/21/2024 2:02 PM MAGAZINE REPAIRER 1. No findings of acute trauma in [...] Pillai MD, PHD Narrative 06/21/2024 2:02 PM MAGAZINE REPAIRER EXAMINATION: Computed tomography of the chest, abdomen [...] Shoulder Right WO Contrast (06/21/2024 12:38 PM MAGAZINE REPAIRER) Anatomical Region Laterality Modality Upper Extremities Right Computed Tomog tammy 06/21/2024 1:31 PM MAGAZINE REPAIRER Impressions 06/21/2024 1:48 PM MAGAZINE REPAIRER 1. Acute, comminuted Hill-Sachs fracture of the [...] Pillai MD, PHD Narrative 06/21/2024 1:48 PM MAGAZINE REPAIRER EXAMINATION: CT SHOULDER RIGHT WO CONTRAST HISTORY: [...] MD IMG CT PROCEDURES Final Result * LA CRITICAL CARE ILL/INJURED PATIENT INIT 30-74 MIN (06/21/2024 12:19 PM MAGAZINE REPAIRER) Narrative Nelson Yeager MD PhD - 06/21/2024 12:19 PM MAGAZINE REPAIRER Nelson Yeager MD PhD 06/21/2024 3:18 PM [...] 2 or More Views (06/21/2024 10:21 AM MAGAZINE REPAIRER) Anatomical Region Laterality Modality Upper Extremities, Shoulder Right Comp uted Radiography 06/21/2024 10:3 2 AM MAGAZINE REPAIRER Impressions 06/21/2024 10:32 AM MAGAZINE REPAIRER Reduced right shoulder, with mildly displaced comminuted Hill-Sachs fracture Electronically signed by: Juanito Merritt M.D. Narrative 06/21/2024 10:32 AM MAGAZINE REPAIRER EXAMINATION: XR SHOULDER RIGHT 2 OR MORE [...] fracture Electronically signed by: Juanito Merritt M.D. Nleson Yeager MD PhD IMG XR PROCEDURES Final Result * eGFR (06/21/2024 8:55 AM MAGAZINE REPAIRER) eGFR >90 >=60 mL/min/1. 73 m2 Comment: [...] last reviewed 2021. Blood 06/21/2024 8:55 AM MAGAZINE REPAIRER 06/21/2024 9:09 AM MAGAZINE REPAIRER us Tete Clark MD LAB BLOOD ORDERABLES Final Res ult [facility] [place] [address] * (ABNORMAL) Pro B-type natriuretic peptide (06/21/2024 8:55 AM MAGAZINE REPAIRER) NT-proBNP 1,234(H) <=300 pg/mL Comment: Interpretive Comments: [...] Revised Date: 2017. Blood 06/21/2024 8:55 AM MAGAZINE REPAIRER 06/21/2024 9:09 AM MAGAZINE REPAIRER us Jaylin Kamara MD LAB BLOOD ORDERABLES Teetee keith Result [facility] [place] [address] * (ABNORMAL) Comprehensive metabolic panel (06/21/2024 8:55 AM MAGAZINE REPAIRER) Sodium 124(L) 135 - 145 mmol/L Potassium, pl 4.8 3.3 - 4.9 mmol/L [facility] Comment:Repeated and Verifie d Chloride 88(L) 97 - 110 mmol/L [facility] CO2 21(L) 22 - 32 mmol/L [facility] Anion gap 15 2 - 15 mmol/L [facility] BUN 8 6 - 25 mg/dL [facility] Creatinine 0.82 0.80 - 1.30 mg/dL [facility] Glucose 114 70 - 199 mg/dL [facility] Comment: Interpretive Data Fasting glucose [...] 2022. Calcium 8.9 8.5 - 10.3 mg/dL [facility] Bilirubin, total 0.7 0.1 - 1.2 mg/dL [facility] Protein, pl 7.1 6.5 - 8.5 g/dL [facility] Albumin 3.9 3.5 - 5.0 g/dL [facility] Alk phos 42 40 - 130 Units/L [facility] ALT 17 7 - 55 Units/L [facility] Comment:Reviewed AST 38 10 - 50 Units/L [facility] Comment:Reviewed Blood 06/21/2024 8:55 AM MAGAZINE REPAIRER 06/21/2024 9:09 AM MAGAZINE REPAIRER us Tete Clark MD LAB BLOOD ORDERABLES Final Res ult [facility] [place] [address] * XR Pelvis 1 or 2 Views (06/21/2024 8:51 AM MAGAZINE REPAIRER) Anatomical Region Laterality Modality Body, Pelvis N/A Computed Radiogr aphy 06/21/2024 10:2 7 AM MAGAZINE REPAIRER Narrative 06/21/2024 10:33 AM MAGAZINE REPAIRER EXAMINATION: XR CHEST 1 VIEW, XR PELVIS [...] Chest 1 Vw Portable (06/21/2024 8:51 AM MAGAZINE REPAIRER) Anatomical Region Laterality Modality Body, Chest N/A Computed Radiogr aphy 06/21/2024 10:2 7 AM MAGAZINE REPAIRER Narrative 06/21/2024 10:33 AM MAGAZINE REPAIRER EXAMINATION: XR CHEST 1 VIEW, XR PELVIS [...] Result * Check Sample (06/21/2024 8:28 AM MAGAZINE REPAIRER) ABO Rh A Positive [facility] OTHER 06/21/2024 8:28 AM MAGAZINE REPAIRER 06/21/2024 8:35 AM MAGAZINE REPAIRER us Nelson Yeager MD PhD LAB BLOOD ORDERABL ES Final Result [facility] [place] [address] [facility] * ECG 12-LEAD (06/21/2024 7:42 AM MAGAZINE REPAIRER) Narrative [facility] - 06/21/2024 7:42 AM MAGAZINE REPAIRER Nelson Yeager MD PhD 06/21/2024 7:43 AM [...] ECG ORDERABLES Final Result Performing Organization Address City/State/ZIP Co wv Phone Number [facility] * eGFR (06/21/2024 7:42 AM MAGAZINE REPAIRER) eGFR >90 >=60 mL/min/1. 73 m2 Comment: [...] last reviewed 2021. Blood 06/21/2024 7:42 AM MAGAZINE REPAIRER 06/21/2024 8:00 AM MAGAZINE REPAIRER us Zana Kelley MD LAB BLOOD ORDERABLES Final Re sult [facility] [place] [address] * (ABNORMAL) Differential, auto (06/21/2024 7:42 AM MAGAZINE REPAIRER) Neutrophil abs 11.3(H) 1.5 - 6.5 K/cumm Imm gran abs 0.1 0.0 - 0.1 K/cumm [facility] Lymphocyte abs 0.5(L) 0.8 - 3.3 K/cumm [facility] Monocyte abs 1.0(H) 0.2 - 0.8 K/cumm [facility] Eosinophil abs 0.6(H) 0.0 - 0.5 K/cumm [facility] Basophil abs 0.0 0.0 - 0.1 K/cumm [facility] Neutrophil pct 83.5 % [facility] Comment: Confirmed by smear review Interpretive Data Percent cell count reference ranges are not reported, since discordance with absolute values may lead to misinterpretation of CBC data. Current Interpretive Data was last revised on 2017. Imm gran pct 0.4 % [facility] Comment: Interpretive Data Percent cell count reference ranges are not reported, since discordance with absolute values may lead to misinterpretation of CBC data. Current Interpretive Data was last revised on 2017. Lymphocyte pct 3.9 % [facility] Comment: Interpretive Data Percent cell count reference ranges are not reported, since discordance with absolute values may lead to misinterpretation of CBC data. Current Interpretive Data was last revised on 2017. Monocyte pct 7.7 % [facility] Comment: Interpretive Data Percent cell count reference ranges are not reported, since discordance with absolute values may lead to misinterpretation of CBC data. Current Interpretive Data was last revised on 2017. Eosinophil pct 4.4 % [facility] Comment: Interpretive Data Percent cell count reference ranges are not reported, since discordance with absolute values may lead to misinterpretation of CBC data. Current Interpretive Data was last revised on 2017. Basophil pct 0.1 % [facility] Comment: Interpretive Data Percent cell count reference ranges are not reported, since discordance with absolute values may lead to misinterpretation of CBC data. Current Interpretive Data was last revised on 2017. Blood 06/21/2024 7:42 AM MAGAZINE REPAIRER 06/21/2024 8:00 AM MAGAZINE REPAIRER Zana Kelley MD LAB BLOOD ORDERABLES Final Re sult [facility] [place] [address] * (ABNORMAL) CBC with auto differential (06/21/2024 7:42 AM MAGAZINE REPAIRER) WBC 13.5(H) 3.8 - 9.9 K/cumm Hgb 11.7(L) 13.0 - 17.5 g/dL [facility] Hct 32.8(L) 38.9 - 50.3 % [facility] Plt 201 150 - 400 K/cumm [facility] MPV 10.2 9.1 - 12.3 fL [facility] RBC 3.27(L) 4.30 - 5.80 M/cumm [facility] MCV 100.3(H) 81.3 - 96.4 fL [facility] MCH 35.8(H) 27.1 - 33.3 pg [facility] MCHC 35.7 32.3 - 35.7 g/dL [facility] RDW CV 11.5 11.1 - 14.9 % [facility] RDW SD 41.9 35.7 - 48.1 fL [facility] NRBC abs 0.00 0.00 - 0.01 K/cumm [facility] Blood 06/21/2024 7:42 AM MAGAZINE REPAIRER 06/21/2024 8:00 AM MAGAZINE REPAIRER Zana Kelley MD LAB BLOOD ORDERABLES Final Re sult [facility] [place] [address] * aPTT (06/21/2024 7:42 AM MAGAZINE REPAIRER) aPTT 28 28 - 38 sec Comment: Interpretive Data Heparin therapeutic range: 66.0 - 100.0 seconds. Range based on correlation with therapeutic heparin activity range of 0.3 - 0.7 Units/mL. Current interpretive data was last revised on 2023. Blood 06/21/2024 7:42 AM MAGAZINE REPAIRER 06/21/2024 8:04 AM MAGAZINE REPAIRER Tete Clark MD LAB BLOOD ORDERABLES Final Res ult Performing Organization Address [facility] [place] [address] * Protime-INR (06/21/2024 7:42 AM MAGAZINE REPAIRER) PT 10.9 9.7 - 13.0 sec INR 1.01 0.90 - 1.20 [facility] Comment: Interpretive data Oral anticoagulant therapeutic ranges: Venous thromboembolism prophylaxis or treatment: 2.0-3.0 CARDIOLOGY Standard range: 2.0-3.0 High-intensity range: 2.5-3.5 Refer to indication-specific guidelines for appropriate target ranges for prosthetic heart valve replacement. Current interpretive data was last revised on 2019. Blood 06/21/2024 7:42 AM MAGAZINE REPAIRER 06/21/2024 8:04 AM MAGAZINE REPAIRER Tete Clark MD LAB BLOOD ORDERABLES Final Res ult Performing Organization Address [facility] [place] [address] * Type and screen (06/21/2024 7:42 AM MAGAZINE REPAIRER) ABO Rh A Positive Kumar, indirect Negative [facility] Blood 06/21/2024 7:42 AM MAGAZINE REPAIRER 06/21/2024 8:02 AM MAGAZINE REPAIRER Narrative [facility] - 06/21/2024 8:47 AM MAGAZINE REPAIRER Has the patient had Daratumumab or Isatuximab in the past 6 months?->Unknown Zana Kelley MD LAB BLOOD BANK TEST ORDERABLE S Final Result Performing Organization Address [facility] de Phone Number [facility] [place] [address] * (ABNORMAL) Ethanol (06/21/2024 7:42 AM MAGAZINE REPAIRER) Pathologist [facility] Ethanol 31(H) <=10 mg/dL Comment: Hemolyzed; result may be falsely decreased Interpretive Data Legal limit of intoxication > or = 80 mg/dL Levels > or = 400 mg/dL are potentially TOXIC. Current interpretive data was last revised on 2018. Blood 06/21/2024 7:42 AM MAGAZINE REPAIRER 06/21/2024 8:00 AM MAGAZINE REPAIRER Tete Clark MD LAB BLOOD ORDERABLES Final Res ult Performing Organization Address [facility] de Phone Number [facility] [place] [address] * (ABNORMAL) Comprehensive metabolic panel (06/21/2024 7:42 AM MAGAZINE REPAIRER) Sodium 125(L) 135 - 145 mmol/L Potassium, pl See Comment 3.3 - 4.9 mmol/L [facility] Comment:Credited; Hemolyzed Specimen Chloride 88(L) 97 - 110 mmol/L [facility] CO2 19(L) 22 - 32 mmol/L [facility] Anion gap 18(H) 2 - 15 mmol/L [facility] BUN 9 6 - 25 mg/dL [facility] Creatinine 0.78(L) 0.80 - 1.30 mg/dL [facility] Glucose 114 70 - 199 mg/dL [facility] Comment: Interpretive Data Fasting glucose [...] 2022. Calcium 8.7 8.5 - 10.3 mg/dL [facility] Bilirubin, total 0.7 0.1 - 1.2 mg/dL [facility] Protein, pl 7.5 6.5 - 8.5 g/dL [facility] Albumin 3.9 3.5 - 5.0 g/dL [facility] Alk phos 34(L) 40 - 130 Units/L [facility] Comment:Hemolyzed; result ma y be falsely decreased ALT See Comment 7 - 55 Units/L [facility] Comment:Credited; Hemolyzed Specimen AST See Comment 10 - 50 Units/L [facility] Comment:Credited; Hemolyzed Specimen Blood 06/21/2024 7:42 AM MAGAZINE REPAIRER 06/21/2024 8:00 AM MAGAZINE REPAIRER us Zana Kelley MD LAB BLOOD ORDERABLES Final Re sult [facility] [place] [address] * XR Humerus Right 2 or More Views (06/21/2024 7:23 AM MAGAZINE REPAIRER) Anatomical Region Laterality Modality Upper Extremities, Upper Arm Right Com puted Radiography 06/21/2024 8:30 AM MAGAZINE REPAIRER Impressions 06/21/2024 9:25 AM MAGAZINE REPAIRER 1. Comminuted Hill-Sachs fracture of the right humerus with anterior and inferior displacement of the right humerus. Dictated by: Colby Wyman M.D. The radiology attending physician has personally reviewed this study, and had reviewed and/or edited this written report and agrees with it. Electronically signed by: Juanito Merritt M.D. Narrative 06/21/2024 9:25 AM MAGAZINE REPAIRER EXAMINATION: XR SHOULDER RIGHT 2 OR MORE [...] 2 or More Views (06/21/2024 7:23 AM MAGAZINE REPAIRER) Anatomical Region Laterality Modality Upper Extremities, Shoulder Right Comp uted Radiography 06/21/2024 8:30 AM MAGAZINE REPAIRER Impressions 06/21/2024 9:25 AM MAGAZINE REPAIRER 1. Comminuted Hill-Sachs fracture of the right humerus with anterior and inferior displacement of the right humerus. Dictated by: Colby Wyman M.D. The radiology attending physician has personally reviewed this study, and had reviewed and/or edited this written report and agrees with it. Electronically signed by: Juanito Merritt M.D. Narrative 06/21/2024 9:25 AM MAGAZINE REPAIRER EXAMINATION: XR SHOULDER RIGHT 2 OR MORE [...] * XR Outside Reference (06/21/2024 7:22 AM MAGAZINE REPAIRER) Impressions [facility] - 06/21/2024 7:22 AM MAGAZINE REPAIRER These images are for Reference purposes only and have not been reviewed by [facility] Radiology. There will be no report generated by a [facility] Radiologist. Narrative [facility] - 06/21/2024 7:22 AM MAGAZINE REPAIRER EXAMINATION: Images For Reference Purposes Only us Tete Clark MD IMG XR PROCEDURES Final Result [facility] * Procedural Sedation (06/21/2024 5:33 AM MAGAZINE REPAIRER) Narrative Nelson Yeager MD PhD - 06/21/2024 5:33 AM MAGAZINE REPAIRER Nelson Yeager MD PhD 07/14/2024 7:01 AM Procedural Sedation Date/Time: 06/21/2024 5:33 AM Performed by: Tete Clark MD Authorized by: Nelson Yeager MD PhD [place] Protocol: RN Notified of Procedure: yes Informed [...] LOC assessments, frequent vital sign checks and pattern maker Intra-procedure events: hypoxia Intra-procedure management: Airway repositioning Sedation end time (end of provider face to face time): 06/21/2024 10:10 AM Total sedation time (minutes): 14 Maximal depth of sedation: Moderate Post-procedure details: Patient tolerance: Tolerated well, no immediate complications Nelson Yeager MD PhD IN CLINIC/BEDSIDE ORDERABLES Final Result from Last 3 Months Insurance FOR LIFE MEDICARE FOR LIFE MEDICARE Advance Directives For more information, please contact: [phone] * Full Code (Latest Code Status on File) Date Activated Date Inactivated Comments 07/30/2024 5:08 PM 08/13/2024 12:58 AM * Full Code Date Activated Date Inactivated Comments 07/25/2024 3:21 AM 07/30/2024 5:08 PM * Full Code Date Activated Date Inactivated Comments 06/21/2024 3:36 PM 06/22/2024 5:14 PM Care Teams Cash Specialist Relationship Specialty Start Date End Date Juanito Woodward MD [address] [place] [address] PCP - General 08/10/16 Juanito Woodward MD [address] [place] [address] 08/10/16 Nick Veliz MD [id number] [place] [address] Consulting Physician Cardiothoracic Surgery 08/12/24 Miscellaneous, Not In File 08/12/24
== END 2024-08-29 13:02 | disposition home or self-care (01) ==
LOC: ANHIMG 13:03
PROVIDERS: PCP Emergency Medicine; Visit Provider Internal Medicine Cardiovascular Disease
DX: J90 Pleural effusion, not elsewhere classified (principal); I50.30 Unspecified diastolic (congestive) heart failure
CPT/HCPCS: 71046

== ENCOUNTER 2024-10-28 12:34 | Outpatient (CLI) | payer MEDICARE, OTHER, SELFPAY ==
--- NOTE | 2024-10-28 12:38 | ECHO_ITS ---
Patient Info Name: Tommy Shah Age: 74 years : 1950 Gender: Male Ht: 73 in Wt: 186 lbs BSA: 2.09 m2 HR: 68 bpm BP: 157 / 89 mmHg Heart Rhythm: Sinus Rhythm Technical Quality: Fair Exam Date: 10/28/2024 12:45 PM Patient Status: O Admit Date: 10/28/2024 Exam Type: CA echo doppler color flow Complete two-dimensional, color flow and Doppler transthoracic echocardiogram is performed. Executive Office Manager: Aylin King Attending Provider: Michael Soni DO Summary 1. Complete two-dimensional, color flow and Doppler transthoracic echocardiogram is performed. 2. Left ventricular chamber dimension is normal. 3. Left ventricular systolic function is normal, estimated at 60-65. 4. There is mild concentric increased left ventricular wall thickness. 5. The left ventricular diastolic function is abnormal. 6. E/e' 23 is elevated. 7. Left atrial chamber dimension is severely enlarged. 8. History of bioprosthetic aortic valve replacement. 9. History of mitral annuplasty ring. 10. The aortic valve is not well visualized. Cannot determine number of aortic valve leaflets. 11. There is moderate aortic valve sclerosis. 12. The mitral valve has mildly calcified leaflets and a severely calcified annulus. 13. There is mild mitral valve stenosis. 14. There is mild tricuspid valve regurgitation. 15. No pulmonary hypertension, estimated pulmonary arterial systolic pressure is 38 mmHg. Left Ventricle E/e' 23 is elevated. Left ventricular chamber dimension is normal. Left ventricular systolic function is normal, estimated at 60-65. There is mild concentric increased left ventricular wall thickness. The left ventricular diastolic function is abnormal. Right Ventricle Right ventricular chamber dimension is normal. Right ventricular systolic function is normal and with normal TAPSE 2.0 cm. Left Atria Left atrial chamber dimension is severely enlarged. Right Atria Right atrial chamber dimension is normal. Aortic Valve The aortic valve is not well visualized. Cannot determine number of aortic valve leaflets. There is moderate aortic valve sclerosis. There is no aortic valve stenosis with a peak velocity of 225 cm/s, mean gradient of 11 mmHg, and aortic valve area of 1.2 cm2. There is no aortic valve regurgitation. Pulmonic Valve There is no pulmonic regurgitation. Mitral Valve The mitral valve has mildly calcified leaflets and a severely calcified annulus. There is mild mitral valve stenosis. There is no mitral valve regurgitation. Tricuspid Valve There is mild tricuspid valve regurgitation. No pulmonary hypertension, estimated pulmonary arterial systolic pressure is 38 mmHg. Pericardium/Pleural There is no pericardial effusion. Inferior Vena Cava Normal inferior vena cava with >50% collapse upon inspiration consistent with normal right atrial pressure, 5 mmHg. Aorta The aortic root size at the sinus of Valsalva is normal. Left Ventricular Outflow Tract Name Value Normal LVOT 2D LVOT Diameter 1.9 cm LVOT Doppler LVOT Peak Velocity 99 cm/s LVOT Peak Gradient 4 mmHg LVOT Mean Gradient 2 mmHg LVOT VTI 21 cm LVOT VTI/AV VTI Ratio 0.4 LVOT Stroke Volume 58 ml LVOT CO 3.9 l/min LVOT CI 1.8 l/min/m2 Pulmonic Valve Name Value Normal RVOT Doppler RVOT Peak Velocity 65 cm/s RVOT Peak Gradient 2 mmHg PV Doppler PV Peak Velocity 78 cm/s PV Peak Gradient 2 mmHg Mitral Valve Name Value Normal MV Doppler MV Peak Gradient 12 mmHg MV Mean Gradient 4 mmHg MV Area (Cont Eq VTI) 1.5 cm2 MV Diastolic Function MV E Peak Velocity 154 cm/s MV A Peak Velocity 2 cm/s MV E/A 81.1 MV Decel Time (PW) 346 ms MV Annular TDI MV E/e' (Septal) 29.6 MV E/e' (Lateral) 19.6 MV E/e' (Average) 24.6 Tricuspid Valve Name Value Normal TV Regurgitation Doppler TR Peak Velocity 286 cm/s TR Peak Gradient 33 mmHg Estimated PAP/RSVP RA Pressure 5 mmHg <=5 PA Systolic Pressure 38 mmHg <36 RV Systolic Pressure 38 mmHg <36 TV Annular TDI TV Lateral Shaina s' Velocity 12.3 cm/s >=9.5 Aorta Name Value Normal Ascending Aorta Ao Root Diameter (MM) 3.0 cm Ao Root Diam Index (MM) 1.4 cm/m2 Aortic Valve Name Value Normal AV Doppler AV Peak Velocity 225 cm/s AV Peak Gradient 20 mmHg AV Mean Gradient 11 mmHg AV VTI 48 cm AV Area (Cont Eq VTI) 1.2 cm2 >=3.0 AV Area (Cont Eq Arslan) 1.2 cm2 AV DI (Arslan) 0.44 AV Regurgitation 2D LVOT Area 2.8 cm2 Ventricles Name Value Normal LV Dimensions 2D/MM IVS Diastolic Thickness (2D) 0.9 cm 0.6-1.0 LVID Diastole (2D) 5.1 cm 4.2-5.8 LVIW Diastolic Thickness (2D) 0.9 cm 0.6-1.0 LVID Systole (2D) 3.2 cm 2.5-4.0 LVOT Diameter 1.9 cm LV Mass (2D Cubed) 156.45 g 88.00-224.00 LV Mass Index (2D Cubed) 75 g/m2 49-115 Relative Wall Thickness (2D) 0.35 <=0.42 LV Fractional Shortening/Ejection Fraction 2D/MM LV Fractional Shortening (2D) 36 % 25-43 LV EF (2D Teichholz) 66 % LV Diastolic Volume (4C MOD) 64 ml LV EF (4C MOD) 64 % LV Diastolic Volume (2C MOD) 70 ml LV EF (2C MOD) 68 % LV Diastolic Volume (BP MOD) 74 ml 62-150 LV Diastolic Volume Index (BP MOD) 36 ml/m2 34-74 LV Systolic Volume (BP MOD) 23 ml 21-61 LV Systolic Volume Index (BP MOD) 11 ml/m2 11-31 LV EF (BP MOD) 69 % 52-72 LV Diastolic Length (4C) 6.6 cm LV Systolic Length (4C) 6.2 cm LV Stroke Volume (4C MOD) 41 ml Atria Name Value Normal LA Dimensions LA Dimension (MM) 4.5 cm 3.0-4.0 LA Volume (4C A-L) 91 ml LA Volume (BP A-L) 106 ml RA Dimensions RA Area (4C) 19.4 cm2 <=18.0 Report Signatures Amended by Michael Soni DO on 10/28/2024 02:51 PM
--- OUTSIDE RECORDS SUMMARY | 2024-10-28 12:39 | XMS_ITS | Encounter Summary ---
Author Organization [facility] Address [address] [place] [address] Care Team Providers Care Master Electrician Name Role Phone Juanito Woodward MD Primary Care Provide r Juanito Woodward MD Unavailable [phone] Nick Veliz MD Unavailable [phone] Miscellaneous, Not In File Unavailable Unava ilable Encounter Details Date Type Department Care Team (Late st Contact Info) Description 08/21/2016 Orders Only [facility] ProviderNeil MD [address] [place] [address] Social History Tobacco Use Types Packs/Day Years Used Date Smoking Tobacco: Never Assessed Sex and Gender Information Value Date Recorded Sex Assigned at Not on file Legal Sex Male 1:55 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 [facility] 08/05/2024 08/05/2024 08/13/2024 9:27 AM C DT documented as of this encounter Care Teams Master Electrician Relationship Specialty Start Date End Date Juanito Woodward MD [address] [place] [address] PCP - General 08/10/16 Juanito Woodward MD [address] [place] [address] 08/10/16 Nick Veliz MD [address] [place] [address] Consulting Physician Cardiothoracic Surgery 08/12/24 Miscellaneous, Not In File 08/12/24 documented as of this encounter
--- OUTSIDE RECORDS SUMMARY | 2024-10-28 12:39 | XMS_ITS | Continuity of Care Document ---
Author Organization [facility] Address [address] [facility] [place], [facility] [address] [place] [address] Phone Care Team Providers Care Dog Pound Attendant Name Role Phone [place] SOTO FACS, Rip Unavailable Unavailab le Allergies, Adverse Reactions, Alerts Substance Reaction Status Criticality No Known allergies Medications Medication Instructions Dosage Effective Dates (start - stop) Status Comments Aspirin Low Dose 81 mg tablet,delayed release - Active AMLODIPINE BESILATE (unknown strength) Not Available - Active valsartan 320 mg-hydrochlorothia zide 25 mg tablet - Active prednisolone acetate 1 % Eye Drops, Susp Instill 1 drop into Operated Eye QID as directed - No Longer Active Polytrim 0.1 %-10,000 unit/mL Eye Drops Instill one drop into Operated Eye QID as directed - No Longer Active Procedures Procedure Date Post-op Follow-up Visit No Charge Refraction Post-op Follow-up Visit Remove Cataract, Insert Lens Presbyopia Correcting IOL Eye Exam, New Patient No Charge Refraction IOLMaster No Charge Optomap Fundus Photos Jan-- 013 Post-op Follow-up Visit Post-op Follow-up Visit [...] Diagnoses Date Provider Providers Copied on Encounter [facility], [facility] [address] [address], [place], [place], [id number], [place] tel:[phone] [address] [place] [address] [place] FOLLOW-UP SURGERY NOS - [address] [place] [address] [facility] [address], [address], [place], [place], [address], [place]. tel:[phone] [facility], [address], [place], [place], [address], [place] tel:[phone] [address] [place] [address] [place] FOLLOW-UP SURGERY NOS - [address] [place]. [address], [address], [place], [place], [address], [place]. tel:[phone] [facility], [address], [place], [place], [address], [place] tel:[phone] [facility] No Information [address] [facility] [address], [address], [place], [place], [address], [place]. tel:[phone] Referring Provider: Rip Velasco, [facility] [address], [place], [address] . tel:[phone] [facility], [facility] [address], [place], [place], [address], [place] tel:[phone] [address] No Information [address] [place] Rip. [address], [address], [place], [place], [address], [place]. tel:[phone] [facility], [address], [place], [place], [address], [place] tel:[phone] [address] No Information Jan-2 8 3 [place] Rip[address], [address], [place], [place], [address], [place]. tel:[phone] Referring Provider: Saúl Garrison, [address] [facility], [place], [address]. tel:[phone] [facility], [address], [place], [place], [address], [place] tel:[phone] [address] [place] [address] No Information [address] Wynona Rip. [address], [address], [place], [place], [address], [place]. tel:[phone] [facility], [address] [place], [place] [address]st [address], [place], [place], [address], [place] tel:[phone] [facility] No Information Oct-2 3-200 9 Krishnasamy Shawn. [address], [place], [facility], [place]. tel:[phone] [facility], [address], [place], [place], [address], [place] tel:[phone] SEC [facility] No Information Oct-0 2-200 9 Krishnasamy Shawn. [address], [place], [address], [place]. tel:[phone] [facility], [address] [place] [address] [address], [place], [place], [address], tel:[phone] [facility] No Information Sep-2 5-200 9 Krishnasamy Shawn. [address], [facility], . tel:[phone] [facility], [address] [place] [address] [address], [place], [place], [address], tel:[phone] [facility] No Information Sep-2 4-200 9 Krishnasamy Shawn. [address], [facility], . tel:[phone] Referring Provider: Saúl Lopez OD F, [address] [facility], [place], [place], [facility]. tel:[phone] [facility], [address] [place] [address] [address], [place], [place], [address], tel:[phone] [facility] No Information Sep-0 2-200 9 Krishnasamy Shawn. On license of [facility] [address], [facility], . tel:[phone] Referring Provider: Saúl Lopez OD F, [address] [facility] [address], [place], [place], [facility]. tel:[phone] Family History Family Member Type Diagnosis Age [...]
--- OUTSIDE RECORDS SUMMARY | 2024-10-28 12:41 | XMS_ITS | Referral Summary ---
Author Organization [facility] Address [address] [place] [address] Care Team Providers Care Recruitment Internship Name Role Phone Juanito Woodward MD Primary Care Provide r Juanito Woodward MD Unavailable [phone] Nick Veliz MD Unavailable [phone] Miscellaneous, Not In File Unavailable Unava ilable Encounters Date Type Department Care Team Description 09/02/2024 Documentation [facility] Cardiothoracic Surgery [address] [place] [address] Advanced Medicine 8th Floor [address] Room [address] [place] [phone] Azul Armijo NP 09/02/2024 11:08 AM CDT - 09/02/2024 11:59 PM CDT Hospital Encounter [facility] [address] [place] [id number] Heart failure with reduced ejection fraction (HCC); Aortic stenosis, severe Discharge Disposition: Discharge to home or self care 09/02/2024 10:50 AM CDT Lab [facility] [address] [place] [phone] Heart failure with reduced ejection fraction (HCC); Aortic stenosis, severe 09/02/2024 10:00 AM CDT Office Visit [facility] Cardiothoracic Surgery [address] [facility] 8th Floor [address] Room [address] [place] [phone] Nick Veliz MD Heart failure with reduced ejection fraction (HCC) (Primary Dx); Aortic stenosis, severe 08/28/2024 [facility] [address] [facility] [address] [place] [phone] Gabriela Brand RN Cardiac Rehab 07/25/2024 3:08 AM CDT - 08/12/2024 7:20 PM CDT Hospital Encounter [address] [phone] Nick Veliz MD Giacomino, Bria Dugolenski, DO Aortic stenosis, severe (Primary Dx); Aortic valve stenosis, etiology of cardiac valve disease unspecified; Atrial fibrillation with rapid ventricular response (HCC) Discharge Disposition: Discharge to an IP Rehab facility 07/30/2024 8:00 AM CDT Ancillary Procedure [facility] Operating Room [address] [place] [phone] 07/30/2024 8:00 AM CDT - 07/30/2024 4:50 PM CDT Surgery [facility] Operating Room [address] [place] [address] Nick Veliz MD REPLACEMENT AORTIC VALVE - MAGNA BIOPROSTHESIS 25 MM 07/30/2024 7:57 AM CDT Anesthesia Event [facility] Operating Room [address] [place] [phone] Abhi Martinez MD Fischer, Elissa U., NP 07/29/2024 11:00 AM CDT - 07/29/2024 11:59 PM CDT Hospital Encounter [facility] Pulmonary [address] [place] [phone] Discharge Disposition: Discharge to home or self care 07/29/2024 9:05 AM CDT Ancillary Procedure [facility] V[facility] Lab IP [address] [facility] [address] [place] [address] from Last 3 Months Allergies No known active allergies Medications acetaminophen 500 mg capsuleIndicatio ns:Fever,Pain Take 2 capsules (1,000 mg total) by mouth every 6 (six) hours as needed for headaches Active amiodarone (PACERONE) 200 mg tablet Take 1 tablet (200 mg total) by mouth daily 5 08/14/19 Active aspirin 81 mg chewable tablet Take 1 tablet (81 mg total) by mouth daily 08/14/19 Active folic acid (FOLVITE) 1 mg tablet Take 1 tablet (1 mg total) by mouth daily 5 08/14/19 Active furosemide (LASIX) 80 mg tablet Take 1 tablet (80 mg total) by mouth 2 (two) times a day 5 08/14/19 Active magnesium oxide (MAG-OX) 400 mg (241.3 mg elemental magnesium) tabletIndication s:hypomagnesemia Take 2 tablets (800 mg total) by mouth 2 (two) times a day 5 08/13/19 Active multivit agqnbrxr-loed-KB -calcium (THERA-M) 9 mg iron-400 mcg tablet Take 1 tablet by mouth daily Active polyvinyl alcohol-povidone (REFRESH CLASSIC) 1.4-0.6 % dropperette Administer 1 drop into both eyes 3 (three) times a day 5 Active Additional Information Patient not taking.Reported on 09/02/2024 potassium chloride ER (KLOR-CON) 20 mEq CR tabletIndication s:With Lasix Take 2 tablets (40 mEq total) by mouth 2 (two) times a day 5 08/13/19 26 Active ramelteon (ROZEREM) 8 mg tabletIndication s:Sleep-Onset Insomnia Take 1 tablet (8 mg total) by mouth nightly as needed for sleep 5 08/13/19 Active Additional Information Patient not taking.Reported on 09/02/2024 senna (SENOKOT) 8.6 mg tabletIndication s:constipation Take 1 tablet by mouth 2 (two) times a day 5 08/13/19 26 Active Additional Information Patient not taking.Reported on 09/02/2024 tamsulosin (FLOMAX) 0.4 mg extended release capsule Take 1 capsule (0.4 mg total) by mouth daily with dinner 5 Active thiamine (VITAMIN B1) 100 mg tablet Take 1 tablet (100 mg total) by mouth daily 5 08/14/19 26 Active white petrolatum-disability examiner al oil (REFRESH PM) ointment Apply 1 Application to left eye 2 (two) times a day 5 Active Additional Information Patient not taking.Reported on 09/02/2024 eszopiclone (LUNESTA) 1 mg tabletIndication s:Insomnia Take 1 tablet (1 mg total) by mouth nightly Take immediately before bedtime 5 Active Additional Information Patient not taking.Reported on 09/02/2024 spironolactone (ALDACTONE) 25 mg tablet Take 0.5 tablets (12.5 mg total) by mouth daily 5 Active Active Problems Problem Noted Date [...] & Plan (08/11/2024 10:36 AM CDT): CXR 4/8 Bibasilar atelectasis, pleural effusion R>L Remains on [...] discharged to facility - pt looking at [facility] for rehab, check with CM about timing of d/c DO NOT send pt out with iodoform packing in the impella site, only dry gauze but continue the gentle packing daily while in patient Assessment & Plan (2024 1:30 PM CDT): 4/2: MVr (32mm ben annuloplasty band), AVR(25mm Magna), ascending aortic graft, Left atrial MAZE, JORGE, and Impella 5.5 insertion. 6: Impella removed GDMT when able Daily weights, strict I/Os Continue Lasix 80 mg IV TID Lymph edema wraps ordered-tubigrips applied Milrinone weaned off Repeat TTE ordered for Sunday Alcohol use disorder 07/27/2024 Assessment & Plan (08/11/2024 10:42 AM CDT): Patient drinks 4-5 beers, 1-2 glasses wine, 1-2 glasses scotch daily. Last drink 3/24. No prior withdrawal, DTs, etc. CIWA protocol [...] 3.8 m/s. 07/25 he was transferred to [facility] for surgical evaluation. 07/30: MVr (32mm ben [...] 3.8 m/s. 07/25 he was transferred to [facility] for surgical evaluation. 07/30: MVr (32mm ben [...] 06/21/2024 Assessment & Plan (06/22/2024 7:30 AM LABEL SEWER): -right shoulder dislocation and humeral head fracture s/p reduction by ortho in the ED -continue BRENDEN silver -pain control with tylenol, ketorolac, and PRN oxycodone -ortho to set up outpatient follow up Acute respiratory failure 06/21/2024 Assessment & Plan (06/22/2024 7:30 AM LABEL SEWER): -unclear etiology, suspect community acquired pneumonia, atelectasis, [...] 06/21/2024 Assessment & Plan (06/22/2024 7:30 AM LABEL SEWER): -reportedly drinks 4-5 beers/day. Denies history of [...] TID Assessment & Plan (06/21/2024 4:02 PM LABEL SEWER): -continue amlodipine and losartan Resolved Problems Problem Noted Date Diagnosed Date Resolved Date Hyponatremia 06/21/2024 07/27/2024 Assessment & Plan (06/21/2024 4:05 PM LABEL SEWER): -chronic per patient, unclear etiology -sodium tabs [...] on file Legal Sex Male 1:55 AM LABEL SEWER Gender Identity Not on file Sexual Orientation Not on file Last Filed Vital Signs Vital Sign Reading Time Taken Comments Blood Pressure 131/72 09/02/2024 9:53 AM CDT Pulse 85 09/02/2024 9:53 AM CDT Temperature 36.6 C (97.9 F) 08/12/2024 5:55 PM CDT Respiratory Rate 16 08/12/2024 5:55 PM CDT Oxygen Saturation 98% 09/02/2024 9:53 AM CDT Inhaled Oxygen Concentration - - Weight 88.5 kg (195 lb) 09/02/2024 9:53 AM CDT Height 185.4 cm (6' 1) 09/02/2024 9:53 AM CDT Body Mass Index 25.73 09/02/2024 9:53 AM CDT Plan of Treatment Not on file Medical Devices Implanted Type Area License Issuer Device Identifier Shelf Expiration Date Model / Serial / Lot Terumo Cardio Vascular Gelweave 10mm 30cm Suture Retention Unique Hydrolyzable Abdomen [id number] - [id number] - [id number] Implanted:Qty: 1 on 07/30/2024 by Nick Veliz MD at [facility] Other - see comments N/A: Heart [employer] Card[employer] Vascular [id number] 04/29/2027 [id number] / [id number] / [id number] Atricure Device Closure Atriclip Nitinol Polyester 45 D L35mm L6cm Flexible Shaft Plunger Member Service Representative Left Atrial Appendage Exclusion System [id number] - S0 - [id number] Implanted:Qty: 1 on 07/30/2024 by Nick Veliz MD at [facility] Other - see comments N/A: Heart Atricure 04/30/2027 [id number] / [id number] / [id number] [employer] Ben-Cristi ds 32mm 39.6mm 31.9mm 70.4mm Flexible Band Template [id number] - [id number] - [id number] Implanted:Qty: 1 on 07/30/2024 by Nick Veliz MD at [facility] Other - see comments N/A: Mitral Valve [employer] [id number] 10/16/2027 [id number] / [id number] / 0 [employer] Kit Ventricular Assist Device Pump Percutaneous Impella 5.5 Smartassist [id number] - [id number] - [id number] Implanted:Qty: 1 on 07/30/2024 by Nick Veliz MD at [facility] Other - see comments N/A: Heart [employer] [id number] 12/28/2025 [id number] / [id number] / [id number] Description:S/B Clinical Tri al device [id number] IMPELLA 5.[id number] [facility] Trial Antenna Rigger [employer] Magna Ease 25mm [id number] - [id number] - [id number] Implanted:Qty: 1 on 07/30/2024 by Nick Veliz MD at [facility] Prosthetic Valve N/A: Aortic Valve [employer] [id number] 10/17/2027 [id number] / [id number] / 0 Procedures Procedure Name Priority Date/Time Associated Diagnosis Comments XR CHEST PA LATERAL 2 VIEWS Schedule Routine, Read Routine (OP Routine) 09/02/2024 11:12 AM CDT Heart failure with reduced ejection fraction (HCC) Aortic stenosis, severe EGFR Routine 09/02/2024 10:50 AM CDT Heart failure with reduced ejection fraction (HCC) Aortic stenosis, severe PRO B-TYPE NATRIURETIC PEPTIDE Routine 09/02/2024 10:50 AM CDT Heart failure with reduced ejection fraction (HCC) Aortic stenosis, severe LACTATE DEHYDROGENASE Routine 09/02/2024 10:50 AM CDT Heart failure with reduced ejection fraction (HCC) Aortic stenosis, severe COMPREHENSIVE METABOLIC PANEL Routine 09/02/2024 10:50 AM CDT Heart failure with reduced ejection fraction (HCC) Aortic stenosis, severe CBC WITHOUT DIFFERENTIAL Routine 09/02/2024 10:50 AM CDT Heart failure with reduced ejection fraction (HCC) Aortic stenosis, severe PRO B-TYPE NATRIURETIC PEPTIDE STAT 08/12/2024 9:56 [...] AM CDT POCT GLUCOSE DEVICE Routine 08/02/2024 4:04 AM CDT EGFR Timed 08/02/2024 12:47 AM [...] CHEMISTRIES, ARTERIAL Routine 07/30/2024 10:08 AM CDT MS AN PROCEDURE PLACEHOLDER Routine 07/30/2024 9:54 AM [...] DEVICE Routine 07/29/2024 8 :00 AM CDT HEPATITIS C ANTIBODY Routine 06/22/2024 5:[address] CHEST ABDOMEN PELVIS W CONTRAST ED 06/21/2024 12:38 PM LABEL SEWER from Last 3 Months or Most Recently Relevant to Health Maintenance Results * X-ray chest 2 views (09/02/2024 11:12 AM CDT) Anatomical Region Laterality Modality Body, Chest N/A Computed Radiogr aphy 09/02/2024 11:1 7 AM CDT Impressions 09/02/2024 11:42 AM CDT Comparison with 2024. Median sternotomy changes with aligned wires and left atrial appendage clip and aortic valve prosthesis. Small pleural effusions are decreased with mild atelectasis. No pneumothorax. Normal heart size and mediastinal contours. Dictated by: Hollis Encinas MD PHD The radiology attending physician has personally reviewed this study, and had reviewed and/or edited this written report and agrees with it. Electronically signed by: Juan Pillai MD, PHD Narrative 09/02/2024 11:42 AM CDT EXAMINATION: 2 view chest radiograph Procedure Note Juan Pillai MD PhD - 09/02/2024 EXAMINATION: 2 view chest radiograph IMPRESSION: Comparison with 2024. Median sternotomy changes with aligned wires and left atrial appendage clip and aortic valve prosthesis. Small pleural effusions are decreased with mild atelectasis. No pneumothorax. Normal heart size and mediastinal contours. Dictated by: Hollis Encinas MD PHD The radiology attending physician has personally reviewed this study, and had reviewed and/or edited this written report and agrees with it. Electronically signed by: Juan Pillai MD, PHD us Azul Armijo [employer] IMG XR PROCEDURES Final Re sult * (ABNORMAL) eGFR (09/02/2024 10:50 AM CDT) eGFR 53(L) >=60 mL/min/1. 73 m2 Comment: Interpretive Data [...] interpretive data was last reviewed 2021. Blood 09/02/2024 10:5 0 AM CDT 09/02/2024 11:31 AM CDT us Azul Armijo NP LAB BLOOD ORDERABLES Final Result [facility] Department [place] [address] * (ABNORMAL) Pro B-type natriuretic peptide (09/02/2024 10:50 AM CDT) NT-proBNP 1,377(H) <=300 pg/mL Comment: Interpretive Comments: A. Dyspnea [...] Interpretive Data Last Revised Date: 2017. Blood 09/02/2024 10:5 0 AM CDT 09/02/2024 11:31 AM CDT us Azul Armijo NP LAB BLOOD ORDERABLES Final Result [facility] Department [place] [address] * (ABNORMAL) CBC without differential (09/02/2024 10:50 AM CDT) WBC 13.59(H) 3.80 - 9.90 K/cumm Hgb 10.2(L) 13.0 - 17.5 g/dL [facility] Hct 31.2(L) 38.9 - 50.3 % [facility] Plt 396 150 - 400 K/cumm [facility] MPV 10.1 9.1 - 12.3 fL [facility] RBC 3.25(L) 4.30 - 5.80 M/cumm [facility] MCV 96.0 81.3 - 96.4 fL [facility] MCH 31.4 27.1 - 33.3 pg [facility] MCHC 32.7 32.3 - 35.7 g/dL [facility] RDW CV 13.3 11.1 - 14.9 % [facility] RDW SD 47.5 35.7 - 48.1 fL [facility] NRBC abs 0.00 0.00 - 0.01 K/cumm [facility] Blood 09/02/2024 10:5 0 AM CDT 09/02/2024 11:31 AM CDT Azul Armijo NP LAB BLOOD ORDERABLES Final Result Performing Organization Address City/[facility]/ZIP Co de Phone Number [facility] [place] [address] * Lactate dehydrogenase (LD) (09/02/2024 10:50 AM CDT) [facility] Lactate dehydrogenase (LDH) 245 100 - 250 Units/L Blood 09/02/2024 10:5 0 AM CDT 09/02/2024 11:31 AM CDT Azul Armijo NP LAB BLOOD ORDERABLES Final Result Performing Organization Address [facility] de Phone Number [facility] [place] [address] * (ABNORMAL) Comprehensive metabolic panel (09/02/2024 10:50 AM CDT) [facility] Sodium 135 135 - 145 mmol/L Potassium, pl 4.9 3.3 - 4.9 mmol/L [facility] Chloride 93(L) 97 - 110 mmol/L [facility] CO2 30 22 - 32 mmol/L [facility] Anion gap 12 2 - 15 mmol/L [facility] BUN 13 6 - 25 mg/dL [facility] Creatinine 1.40(H) 0.80 - 1.30 mg/dL [facility] Glucose 106 70 - 199 mg/dL [facility] Comment: Interpretive Data Fasting glucose [...] interpretive data was last revised 2022. Calcium 9.5 8.5 - 10.3 mg/dL [facility] Bilirubin, total 0.4 0.1 - 1.2 mg/dL [facility] Protein, pl 8.0 6.5 - 8.5 g/dL [facility] Albumin 3.5 3.5 - 5.0 g/dL [facility] Alk phos 103 40 - 130 Units/L [facility] ALT 14 7 - 55 Units/L [facility] AST 24 10 - 50 Units/L [facility] Blood 09/02/2024 10:5 0 AM CDT 09/02/2024 11:31 AM CDT us Azul Armijo [employer] LAB BLOOD ORDERABLES Final Result [facility] Department [place] [address] * (ABNORMAL) Pro B-type natriuretic peptide (08/12/2024 [...] CDT 08/12/2024 10:42 AM CDT Narrative [facility] - 08/12/2024 11:19 AM CDT For IMPACT trial do not delete. Nick Veliz MD LAB BLOOD ORDERABLES Fin al Result [facility] Department [place] [address] * TRANSTHORACIC ECHO (TTE) COMPLETE W DOPPLER/CF W CONTRAST (08/12/2024 8:32 AM CDT) Anatomical Region Laterality Modality Ultrasound 08/12/2024 7:10 AM CDT Narrative 08/13/2024 7:58 AM CDT [facility] [place] [address] Transthoracic Echocardiographic Report Patient Name: SHEY SHAH C : 1950 (74y ) Gender: M Study Date: 08/12/2024 07:10:06 AM Ht(Inch): 73 Wt(Lb): 195.99 BSA: 2.14 Laster Hand: Raul Roque [facility] Location: [id number] Order Provider: TY WEINBERG Heart Rate: 78 [...] Procedure Note Yash Palmer MD - 08/13/2024 [facility] [place] [address] Transthoracic Echocardiographic Report Patient Name: MIKEYBROCKChetSHEY C : 1950 (74y ) Gender: M Study Date: 08/12/2024 07:10:06 AM Ht(Inch): 73 Wt(Lb): 195.99 BSA: 2.14 Laster Hand: Raul Roque [facility] Location: [id number] Order Provider: TY WEINBERG Heart Rate: 78 [...] cm2 RA Volume 47.13 ml MV Decel Fwcs504.22 msec [ 104.00 - 258.00 ] RA [...] Fernandez NP LAB BLOOD ORDERABLES Final Result [facility] Department [place] [address] * (ABNORMAL) CBC without differential (08/11/2024 8:16 PM CDT) WBC 13.80(H) 3.80 - 9.90 K/cumm Hgb 9.5(L) 13.0 - 17.5 g/dL [facility] Hct 29.3(L) 38.9 - 50.3 % [facility] Plt 361 150 - 400 K/cumm [facility] MPV 10.3 9.1 - 12.3 fL [facility] RBC 2.88(L) 4.30 - 5.80 M/cumm [facility] MCV 101.7(H) 81.3 - 96.4 fL [facility] MCH 33.0 27.1 - 33.3 pg [facility] MCHC 32.4 32.3 - 35.7 g/dL [facility] RDW CV 14.2 11.1 - 14.9 % [facility] RDW SD 52.5(H) 35.7 - 48.1 fL [facility] NRBC abs 0.00 0.00 - 0.01 K/cumm [facility] Blood 08/11/2024 8:16 PM CDT 08/11/2024 8:53 PM CDT us Alanna Dominguez [employer] LAB BLOOD ORDERABLES Final R esult Performing Organization Address City/[facility]/ZIP Co de Phone Number [facility] [place] [address] * Type and screen (08/11/2024 8:16 PM CDT) ABO Rh A Positive Kumar, indirect Negative [facility] Blood 08/11/2024 8:16 PM CDT 08/11/2024 9:36 PM CDT Narrative [facility] - 08/11/2024 10:35 PM CDT Has the patient had Daratumumab or Isatuximab in the past 6 months?->Unknown us Alanna Dominguez NP LAB BLOOD BANK TEST ORDERABL ES Final Result [facility] [place] [address] * Phosphorus (08/11/2024 8:16 PM CDT) Phosphorus, pl 3.4 2.3 - 4.5 mg/dL Blood 08/11/2024 8:16 PM CDT 08/11/2024 8:50 PM CDT us Alanna Dominguez [employer] LAB BLOOD ORDERABLES Final R esult Performing Organization Address City/[facility]/ZIP Co de Phone Number [facility] Department [place] [address] * Magnesium (08/11/2024 8:16 PM CDT) [facility] Magnesium 1.9 1.4 - 2.5 mg/dL Blood 08/11/2024 8:16 PM CDT 08/11/2024 8:50 PM CDT Yen Mccoy [employer] LAB BLOOD ORDERABLES Final Result Performing Organization Address [facility] Co de Phone Number [facility] [place] [address] * Basic metabolic panel (08/11/2024 8:16 PM CDT) [facility] Sodium 136 135 - 145 mmol/L Potassium, pl 3.9 3.3 - 4.9 mmol/L [facility] Chloride 97 97 - 110 mmol/L [facility] CO2 30 22 - 32 mmol/L [facility] Anion gap 9 2 - 15 mmol/L [facility] BUN 20 6 - 25 mg/dL [facility] Creatinine 1.17 0.80 - 1.30 mg/dL [facility] Glucose 169 70 - 199 mg/dL [facility] Comment: Interpretive Data Fasting glucose [...] 2022. Calcium 9.0 8.5 - 10.3 mg/dL [facility] Blood 08/11/2024 8:16 PM CDT 08/11/2024 8:50 PM CDT Humza Fernandez [employer] LAB BLOOD ORDERABLES Final Result Performing Organization Address [facility] Co de Phone Number [facility] [place] [address] * eGFR (08/11/2024 9:02 AM CDT) eGFR [...] 08/11/2024 9:55 AM CDT us Humza Fernandez [employer] LAB BLOOD ORDERABLES Final Result Performing Organization Address [facility] Co de Phone Number [facility] [place] [address] * Basic metabolic panel (08/11/2024 9:02 AM CDT) Sodium 140 135 - 145 mmol/L Potassium, pl 3.8 3.3 - 4.9 mmol/L [facility] Chloride 99 97 - 110 mmol/L [facility] CO2 31 22 - 32 mmol/L [facility] Anion gap 10 2 - 15 mmol/L [facility] BUN 16 6 - 25 mg/dL [facility] Creatinine 1.14 0.80 - 1.30 mg/dL [facility] Glucose 109 70 - 199 mg/dL [facility] Comment: Interpretive Data Fasting glucose [...] 2022. Calcium 9.3 8.5 - 10.3 mg/dL [facility] Blood 08/11/2024 9:02 AM CDT 08/11/2024 9:55 AM CDT us Humza Fernandez NP LAB BLOOD ORDERABLES Final Result [facility] Department [place] [address] * Infection Prevention Joce auris PCR, surveillance Axilla/Groin (08/11/2024 7:55 AM CDT) Joce auris DNA Not Detected Not Detected [facility] Comment: Interpretive Data Testing performed by [facility] Infect[facility] Disease [facility] using the [place] lui 6800 Joce auris assay. This assay detects DNA from Joce auris using Real-Time PCR. This assay is laboratory developed and is not cleared by the [place] Food and Drug Administration. The performance characteristics have been verified by the [facility]. Axilla/Groin 08/11/2024 7:55 AM CDT 08/11/2024 8:30 AM CDT Narrative [facility] - 08/11/2024 12:57 PM CDT Order placed by [facility] due to ring surveillance. us Instant Order Generic Provider LAB MICROBIOLOGY - GENERAL ORDERABLES Final Result Performing Organization Address City/[facility]/ZIP Co de Phone Number [facility] [place] [address] [facility] * eGFR (08/10/2024 10:07 PM CDT) eGFR [...] 08/10/2024 10:37 PM CDT us Humza Fernandez [employer] LAB BLOOD ORDERABLES Final Result Performing Organization Address City/[facility]/ZIP Co de Phone Number [facility] Department [place] [address] * (ABNORMAL) CBC without differential (08/10/2024 10:07 PM CDT) WBC 13.89(H) 3.80 - 9.90 K/cumm Hgb 9.8(L) 13.0 - 17.5 g/dL [facility] Hct 29.9(L) 38.9 - 50.3 % [facility] Plt 338 150 - 400 K/cumm [facility] MPV 10.4 9.1 - 12.3 fL [facility] RBC 2.96(L) 4.30 - 5.80 M/cumm [facility] MCV 101.0(H) 81.3 - 96.4 fL [facility] MCH 33.1 27.1 - 33.3 pg [facility] MCHC 32.8 32.3 - 35.7 g/dL [facility] RDW CV 14.2 11.1 - 14.9 % [facility] RDW SD 51.6(H) 35.7 - 48.1 fL [facility] NRBC abs 0.00 0.00 - 0.01 K/cumm [facility] Blood 08/10/2024 10:0 7 PM CDT 08/10/2024 10:38 PM CDT us Alanna Dominguez [employer] LAB BLOOD ORDERABLES Final R esult Performing Organization Address City[facility] Hospital/ZIP Co de Phone Number [facility] [place] [address] * Phosphorus (08/10/2024 10:07 PM CDT) Phosphorus, pl 3.4 2.3 - 4.5 mg/dL Blood 08/10/2024 10:0 7 PM CDT 08/10/2024 10:37 PM CDT Alanna Dominguez [employer] LAB BLOOD ORDERABLES Final R esult [facility] [place] [address] * Magnesium (08/10/2024 10:07 PM CDT) Magnesium 1.7 1.4 - 2.5 mg/dL Blood 08/10/2024 10:0 7 PM CDT 08/10/2024 10:37 PM CDT Yen Mccoy [employer] LAB BLOOD ORDERABLES Final Result Performing Organization Address [facility] de Phone Number [facility] [place] [address] * (ABNORMAL) Hepatic function panel (08/10/2024 10:07 PM CDT) Bilirubin, total 0.6 0.1 - 1.2 mg/dL Bilirubin, direct 0.2 0.1 - 0.3 mg/dL [facility] Protein, pl 6.5 6.5 - 8.5 g/dL [facility] Albumin 2.9(L) 3.5 - 5.0 g/dL [facility] Alk phos 81 40 - 130 Units/L [facility] ALT 35 7 - 55 Units/L [facility] AST 36 10 - 50 Units/L [facility] Blood 08/10/2024 10:0 7 PM CDT 08/10/2024 10:37 PM CDT Onelia Arellano [employer] LAB BLOOD ORDERABLES Final Result Performing Organization Address [facility] de Phone Number [facility] [place] [address] * (ABNORMAL) Basic metabolic panel (08/10/2024 10:07 PM CDT) Sodium 135 135 - 145 mmol/L Potassium, pl 4.4 3.3 - 4.9 mmol/L [facility] Chloride 95(L) 97 - 110 mmol/L [facility] CO2 28 22 - 32 mmol/L [facility] Anion gap 12 2 - 15 mmol/L [facility] BUN 18 6 - 25 mg/dL [facility] Creatinine 1.25 0.80 - 1.30 mg/dL [facility] Glucose 115 70 - 199 mg/dL [facility] Comment: Interpretive Data Fasting glucose [...] 2022. Calcium 8.6 8.5 - 10.3 mg/dL [facility] Blood 08/10/2024 10:0 7 PM CDT 08/10/2024 10:37 PM CDT us Humza Fernandez [employer] LAB BLOOD ORDERABLES Final Result [facility] Department [place] [address] * eGFR (08/10/2024 8:59 AM CDT) eGFR 67 >=60 mL/min/1. 73 [...] CDT 08/10/2024 9:33 AM CDT Humza Fernandez [employer] LAB BLOOD ORDERABLES Final Result Performing Organization Address City/[facility] Co de Phone Number [facility] Department [place] [address] * Basic metabolic panel (08/10/2024 8:59 AM CDT) [facility] Sodium 138 135 - 145 mmol/L Potassium, pl 3.8 3.3 - 4.9 mmol/L [facility] Chloride 97 97 - 110 mmol/L [facility] CO2 31 22 - 32 mmol/L [facility] Anion gap 10 2 - 15 mmol/L [facility] BUN 14 6 - 25 mg/dL [facility] Creatinine 1.15 0.80 - 1.30 mg/dL [facility] Glucose 125 70 - 199 mg/dL [facility] Comment: Interpretive Data Fasting glucose [...] 2022. Calcium 8.9 8.5 - 10.3 mg/dL [facility] Blood 08/10/2024 8:59 AM CDT 08/10/2024 9:33 AM CDT Humza Fernandez [employer] LAB BLOOD ORDERABLES Final Result Performing Organization Address [facility] Co de Phone Number [facility] Department [place] [address] * eGFR (2024 8:38 PM CDT) [facility] eGFR 67 >=60 mL/min/1. 73 m2 Comment: [...] 2024 10:37 PM CDT us Humza Fernandez [employer] LAB BLOOD ORDERABLES Final Result [facility] [place] [address] * (ABNORMAL) CBC without differential (2024 8:38 PM CDT) [facility] WBC 10.80(H) 3.80 - 9.90 K/cumm Hgb 9.5(L) 13.0 - 17.5 g/dL [facility] Hct 29.1(L) 38.9 - 50.3 % [facility] Plt 366 150 - 400 K/cumm [facility] MPV 10.7 9.1 - 12.3 fL [facility] RBC 2.90(L) 4.30 - 5.80 M/cumm [facility] MCV 100.3(H) 81.3 - 96.4 fL [facility] MCH 32.8 27.1 - 33.3 pg [facility] MCHC 32.6 32.3 - 35.7 g/dL [facility] RDW CV 14.3 11.1 - 14.9 % [facility] RDW SD 52.3(H) 35.7 - 48.1 fL [facility] NRBC abs 0.00 0.00 - 0.01 K/cumm [facility] Blood 2024 8:38 PM CDT 2024 9:41 PM CDT us Alanna Dominguez NP LAB BLOOD ORDERABLES Final R esult Performing Organization Address City/[facility] [place] [address] * Phosphorus (2024 8:38 PM CDT) Pathologist [facility] Phosphorus, pl 3.1 2.3 - 4.5 mg/dL Blood 2024 8:38 PM CDT 2024 10:37 PM CDT us Alanna Dominguez [employer] LAB BLOOD ORDERABLES Final R esult Performing Organization Address [facility] Co de Phone Number [facility] [place] [address] * Magnesium (2024 8:38 PM CDT) Pathologist [facility] Magnesium 1.8 1.4 - 2.5 mg/dL Blood 2024 8:38 PM CDT 2024 10:37 PM CDT us Yen Mccoy [employer] LAB BLOOD ORDERABLES Final Result Performing Organization Address City/[facility] Co de Phone Number [facility] [place] [address] * Basic metabolic panel (2024 8:38 PM CDT) Sodium 139 135 - 145 mmol/L Potassium, pl 4.4 3.3 - 4.9 mmol/L [facility] Chloride 100 97 - 110 mmol/L [facility] CO2 30 22 - 32 mmol/L [facility] Anion gap 9 2 - 15 mmol/L [facility] BUN 17 6 - 25 mg/dL [facility] Creatinine 1.15 0.80 - 1.30 mg/dL [facility] Glucose 115 70 - 199 mg/dL [facility] Comment: Interpretive Data Fasting glucose [...] 2022. Calcium 8.6 8.5 - 10.3 mg/dL [facility] Blood 2024 8:38 PM CDT 2024 10:37 PM CDT us Humza Fernandez NP LAB BLOOD ORDERABLES Final Result [facility] Department [place] [address] * XR Chest Pa Lateral 2 Views [...] catheter. Electronically signed by: Maury Jaeger M.D. us Vicenta Lundberg [employer] IMG XR PROCEDURE S Final Result * ECG 12 lead (2024 8:09 AM CDT) Ventricular Rate EKG/Min 73 BPM [facility] Atrial Rate 73 BPM [facility] MS-Interval (MSEC) 190 ms [facility] QRS-Interval (MSEC) 100 ms [facility] QT-Interval (MSEC) 446 ms [facility] QTc 491 ms [facility] P [place] 76 degrees [facility] R [place] 62 degrees [facility] T [place] 19 degrees [facility] Diagnosis Normal sinus rhythm T wave abnormality, consider anterior ischemia Prolonged QT Abnormal ECG Confirmed by Iris SOTO, Martina ([id number]) on 08/13/2024 1:32:42 PM [facility] 2024 8:09 AM CDT 08/13/2024 1:32 PM CDT us Alanna Dominguez [employer] ECG ORDERABLES Final Result [facility] * Lactate (2024 6:27 AM CDT) Lactate 0.8 0.7 - 2.0 mmol/L Blood 2024 6:27 AM CDT 2024 6:48 AM CDT Nick Veliz MD LAB BLOOD ORDERABLES Fin al Result Performing Organization Address City/[facility] Co de Phone Number [facility] Department [place] [address] * eGFR (08/08/2024 10:48 PM CDT) eGFR [...] BLOOD ORDERABLES Final Result Performing Organization Address City/[facility]/ZIP Co de Phone Number [facility] Department [place] [address] * (ABNORMAL) CBC without differential (08/08/2024 10:48 PM CDT) Pathologist [facility] WBC 8.90 3.80 - 9.90 K/cumm Hgb 9.0(L) 13.0 - 17.5 g/dL [facility] Hct 27.0(L) 38.9 - 50.3 % [facility] Plt 292 150 - 400 K/cumm [facility] MPV 10.5 9.1 - 12.3 fL [facility] RBC 2.72(L) 4.30 - 5.80 M/cumm [facility] MCV 99.3(H) 81.3 - 96.4 fL [facility] MCH 33.1 27.1 - 33.3 pg [facility] MCHC 33.3 32.3 - 35.7 g/dL [facility] RDW CV 14.4 11.1 - 14.9 % [facility] RDW SD 51.8(H) 35.7 - 48.1 fL [facility] NRBC abs 0.00 0.00 - 0.01 K/cumm [facility] Blood 08/08/2024 10:4 8 PM CDT 08/08/2024 11:32 PM CDT Alanna Dominguez NP LAB BLOOD ORDERABLES Final R esult [facility] [place] [address] * Type and screen (08/08/2024 10:48 PM CDT) Pathologist [facility] ABO Rh A Positive Kumar, indirect Negative [facility] Blood 08/08/2024 10:4 8 PM CDT 08/08/2024 11:29 PM CDT Narrative [facility] - 2024 12:59 AM CDT Has the patient had Daratumumab or Isatuximab in the past 6 months?->Unknown Alanna Dominguez NP LAB BLOOD BANK TEST ORDERABL ES Final Result [facility] [place] [address] * Phosphorus (08/08/2024 10:48 PM CDT) Phosphorus, pl 3.4 2.3 - 4.5 mg/dL Blood 08/08/2024 10:4 8 PM CDT 08/08/2024 11:32 PM CDT Alanna Dominguez [employer] LAB BLOOD ORDERABLES Final R esult Performing Organization Address City/[facility]/ZIP Co de Phone Number [facility] Department [place] [address] * Magnesium (08/08/2024 10:48 PM CDT) [facility] Magnesium 1.9 1.4 - 2.5 mg/dL Blood 08/08/2024 10:4 8 PM CDT 08/08/2024 11:32 PM CDT Yen Mccoy [employer] LAB BLOOD ORDERABLES Final Result Performing Organization Address City/[facility] de Phone Number [facility] Department [place] [address] * (ABNORMAL) Basic metabolic panel (08/08/2024 10:48 PM CDT) [facility] Sodium 137 135 - 145 mmol/L Potassium, pl 4.0 3.3 - 4.9 mmol/L [facility] Chloride 98 97 - 110 mmol/L [facility] CO2 29 22 - 32 mmol/L [facility] Anion gap 10 2 - 15 mmol/L [facility] BUN 17 6 - 25 mg/dL [facility] Creatinine 1.02 0.80 - 1.30 mg/dL [facility] Glucose 110 70 - 199 mg/dL [facility] Comment: Interpretive Data Fasting glucose [...] 2022. Calcium 8.1(L) 8.5 - 10.3 mg/dL [facility] Blood 08/08/2024 10:4 8 PM CDT 08/08/2024 11:32 PM CDT Humza Fernandez [employer] LAB BLOOD ORDERABLES Final Result Performing Organization Address City/[facility]/ZIP Co de Phone Number [facility] Department [place] [address] * Infection Prevention Joce auris PCR, surveillance Axilla/Groin (08/08/2024 12:43 PM CDT) [facility] Joce auris DNA Not Detected Not Detected [facility] Comment: Interpretive Data Testing performed by [facility] using the [place] lui [id number] Joce auris assay. This assay detects DNA from Joce auris using Real-Time PCR. This assay is laboratory developed and is not cleared by the [place] Food and Drug Administration. The performance characteristics have been verified by the [facility]. Axilla/Groin 08/08/2024 12:4 3 PM CDT 08/08/2024 1:23 PM CDT Herson Perla MD LAB MICROBIOLOGY - GENERAL ORDER VAHID Final Result Performing Organization Address [facility] Co de Phone Number [facility] [place] [address] [facility] * eGFR (08/08/2024 8:02 AM CDT) [facility] eGFR 77 >=60 mL/min/1. 73 m2 Comment: [...] 08/08/2024 8:45 AM CDT us Humza Fernandez [employer] LAB BLOOD ORDERABLES Final Result [facility] Department [place] [address] * (ABNORMAL) Basic metabolic panel (08/08/2024 8:02 AM CDT) Sodium 139 135 - 145 mmol/L Potassium, pl 4.1 3.3 - 4.9 mmol/L [facility] Chloride 100 97 - 110 mmol/L [facility] CO2 30 22 - 32 mmol/L [facility] Anion gap 9 2 - 15 mmol/L [facility] BUN 15 6 - 25 mg/dL [facility] Creatinine 1.03 0.80 - 1.30 mg/dL [facility] Glucose 107 70 - 199 mg/dL [facility] Comment: Interpretive Data Fasting glucose [...] 2022. Calcium 8.4(L) 8.5 - 10.3 mg/dL [facility] Blood 08/08/2024 8:02 AM CDT 08/08/2024 8:45 AM CDT us Humza Fernandez [employer] LAB BLOOD ORDERABLES Final Result Performing Organization Address City/[facility]/ZIP Co de Phone Number [facility] [place] [address] * ECG 12 lead (08/08/2024 3:37 AM CDT) Pathologist [facility] Ventricular Rate EKG/Min 76 BPM [facility] Atrial Rate 76 BPM [facility] MS-Interval (MSEC) 182 ms [facility] QRS-Interval (MSEC) 100 ms [facility] QT-Interval (MSEC) 458 ms [facility] QTc 515 ms [facility] P [place] 97 degrees [facility] R [place] 65 degrees [facility] T [place] 15 degrees [facility] Diagnosis Normal sinus rhythm Possible Lateral infarct , age undetermined Poor r wave progression associated with abnormal lead placement, obesity, pulmonary disease, anterior infarction. Prolonged QT Abnormal ECG When compared with ECG of 06-AUG-2024 05:53, Borderline criteria for Lateral infarct are now Present T wave inversion more evident in Anterior leads Confirmed by GAVINO KELLEY M.D ([id number]) on 08/08/2024 1:03:32 PM [facility] 08/08/2024 3:37 AM CDT 08/08/2024 1:03 PM CDT us Alanna Dominguez [employer] ECG ORDERABLES Final Result Performing Organization Address City/[facility]/ZIP Co de Phone Number [facility] * eGFR (08/07/2024 10:12 PM [...] 08/07/2024 10:48 PM CDT us Humza Fernandez [employer] LAB BLOOD ORDERABLES Final Result [facility] Department [place] [address] * (ABNORMAL) CBC without differential (08/07/2024 10:12 PM CDT) WBC 8.80 3.80 - 9.90 K/cumm Hgb 8.6(L) 13.0 - 17.5 g/dL [facility] Hct 26.5(L) 38.9 - 50.3 % [facility] Plt 247 150 - 400 K/cumm [facility] MPV 11.0 9.1 - 12.3 fL [facility] RBC 2.59(L) 4.30 - 5.80 M/cumm [facility] MCV 102.3(H) 81.3 - 96.4 fL [facility] MCH 33.2 27.1 - 33.3 pg [facility] MCHC 32.5 32.3 - 35.7 g/dL [facility] RDW CV 14.4 11.1 - 14.9 % [facility] RDW SD 53.0(H) 35.7 - 48.1 fL [facility] NRBC abs 0.00 0.00 - 0.01 K/cumm [facility] Blood 08/07/2024 10:1 2 PM CDT 08/07/2024 10:49 PM CDT us Alanna Dominguez [employer] LAB BLOOD ORDERABLES Final R esult Performing Organization Address City/[facility] Co de Phone Number [facility] [place] [address] * Phosphorus (08/07/2024 10:12 PM CDT) Phosphorus, pl 3.4 2.3 - 4.5 mg/dL Blood 08/07/2024 10:1 2 PM CDT 08/07/2024 10:48 PM CDT us Alanna Dominguez [employer] LAB BLOOD ORDERABLES Final R esult Performing Organization Address [facility] Co de Phone Number [facility] [place] [address] * Magnesium (08/07/2024 10:12 PM CDT) Pathologist [facility] Magnesium 1.9 1.4 - 2.5 mg/dL Blood 08/07/2024 10:1 2 PM CDT 08/07/2024 10:48 PM CDT us Yen Mccoy [employer] LAB BLOOD ORDERABLES Final Result Performing Organization Address City/[facility] Co de Phone Number [facility] [place] [address] * (ABNORMAL) Hepatic function panel (08/07/2024 10:12 PM CDT) Bilirubin, total 0.7 0.1 - 1.2 mg/dL Bilirubin, direct 0.3 0.1 - 0.3 mg/dL [facility] Protein, pl 6.0(L) 6.5 - 8.5 g/dL [facility] Albumin 2.7(L) 3.5 - 5.0 g/dL [facility] Alk phos 65 40 - 130 Units/L [facility] ALT 34 7 - 55 Units/L [facility] AST 41 10 - 50 Units/L [facility] Blood 08/07/2024 10:1 2 PM CDT 08/07/2024 10:48 PM CDT us Onelia Arellano NP LAB BLOOD ORDERABLES Final Result [facility] Department [place] [address] * (ABNORMAL) Basic metabolic panel (08/07/2024 10:12 PM CDT) Sodium 139 135 - 145 mmol/L Potassium, pl 4.0 3.3 - 4.9 mmol/L [facility] Chloride 101 97 - 110 mmol/L [facility] CO2 28 22 - 32 mmol/L [facility] Anion gap 10 2 - 15 mmol/L [facility] BUN 17 6 - 25 mg/dL [facility] Creatinine 1.03 0.80 - 1.30 mg/dL [facility] Glucose 117 70 - 199 mg/dL [facility] Comment: Interpretive Data Fasting glucose [...] 2022. Calcium 8.4(L) 8.5 - 10.3 mg/dL [facility] Blood 08/07/2024 10:1 2 PM CDT 08/07/2024 10:48 PM CDT Humza Fernandez [employer] LAB BLOOD ORDERABLES Final Result Performing Organization Address [facility] Co de Phone Number [facility] Department [place] [address] * eGFR (08/07/2024 8:19 AM CDT) eGFR [...] 08/07/2024 8:54 AM CDT us Humza Fernandez [employer] LAB BLOOD ORDERABLES Final Result Performing Organization Address [facility] Co de Phone Number [facility] Department [place] [address] * Basic metabolic panel (08/07/2024 8:19 AM CDT) Pathologist [facility] Sodium 138 135 - 145 mmol/L Potassium, pl 3.9 3.3 - 4.9 mmol/L [facility] Chloride 99 97 - 110 mmol/L [facility] CO2 29 22 - 32 mmol/L [facility] Anion gap 10 2 - 15 mmol/L [facility] BUN 16 6 - 25 mg/dL [facility] Creatinine 1.02 0.80 - 1.30 mg/dL [facility] Glucose 114 70 - 199 mg/dL [facility] Comment: Interpretive Data Fasting glucose [...] 2022. Calcium 8.8 8.5 - 10.3 mg/dL [facility] Blood 08/07/2024 8:19 AM CDT 08/07/2024 8:54 AM CDT us Humza Fernandez NP LAB BLOOD ORDERABLES Final Result [facility] [place] [address] * eGFR (08/06/2024 9:13 PM CDT) eGFR 74 >=60 mL/min/1. 73 m2 Comment: [...] 9:13 PM CDT 08/06/2024 9:53 PM CDT Alanna Dominguez [employer] LAB BLOOD ORDERABLES Final R esult Performing Organization Address City/[facility] Co de Phone Number [facility] [place] [address] * (ABNORMAL) CBC without differential (08/06/2024 9:13 PM CDT) WBC 9.16 3.80 - 9.90 K/cumm Hgb 8.2(L) 13.0 - 17.5 g/dL [facility] Hct 25.1(L) 38.9 - 50.3 % [facility] Plt 200 150 - 400 K/cumm [facility] MPV 11.3 9.1 - 12.3 fL [facility] RBC 2.49(L) 4.30 - 5.80 M/cumm [facility] MCV 100.8(H) 81.3 - 96.4 fL [facility] MCH 32.9 27.1 - 33.3 pg [facility] MCHC 32.7 32.3 - 35.7 g/dL [facility] RDW CV 14.4 11.1 - 14.9 % [facility] RDW SD 52.8(H) 35.7 - 48.1 fL [facility] NRBC abs 0.00 0.00 - 0.01 K/cumm [facility] Blood 08/06/2024 9:13 PM CDT 08/06/2024 9:52 PM CDT us Alanna Dominguez NP LAB BLOOD ORDERABLES Final R esult Performing Organization Address City/[facility]/ZIP Co de Phone Number [facility] Department [place] [address] * Phosphorus (08/06/2024 9:13 PM CDT) [facility] Phosphorus, pl 2.8 2.3 - 4.5 mg/dL Blood 08/06/2024 9:13 PM CDT 08/06/2024 9:53 PM CDT Alanna Dominguez [employer] LAB BLOOD ORDERABLES Final R esult Performing Organization Address City/[facility] Co de Phone Number [facility] Department [place] [address] * Magnesium (08/06/2024 9:13 PM CDT) [facility] Magnesium 1.8 1.4 - 2.5 mg/dL Blood 08/06/2024 9:13 PM CDT 08/06/2024 9:53 PM CDT Alanna Dominguez [employer] LAB BLOOD ORDERABLES Final R esult Performing Organization Address City/[facility] de Phone Number [facility] [place] [address] * Basic metabolic panel (08/06/2024 9:13 PM CDT) [facility] Sodium 138 135 - 145 mmol/L Potassium, pl 4.0 3.3 - 4.9 mmol/L [facility] Chloride 101 97 - 110 mmol/L [facility] CO2 27 22 - 32 mmol/L [facility] Anion gap 10 2 - 15 mmol/L [facility] BUN 19 6 - 25 mg/dL [facility] Creatinine 1.06 0.80 - 1.30 mg/dL [facility] Glucose 126 70 - 199 mg/dL [facility] Comment: Interpretive Data Fasting glucose [...] 2022. Calcium 8.6 8.5 - 10.3 mg/dL [facility] Blood 08/06/2024 9:13 PM CDT 08/06/2024 9:53 PM CDT us Alanna Dominguez NP LAB BLOOD ORDERABLES Final R esult [facility] [place] [address] * XR Chest Pa Lateral 2 Views [...] signed by: Sg Pineda M.D. Onelia Arellano [employer] IMG XR PROCEDURES Final Re sult * ECG 12 lead (08/06/2024 5:53 AM CDT) Ventricular Rate EKG/Min 74 BPM [facility] Atrial Rate 74 BPM [facility] MS-Interval (MSEC) 204 ms [facility] QRS-Interval (MSEC) 88 ms [facility] QT-Interval (MSEC) 468 ms [facility] QTc 519 ms [facility] P [place] 17 degrees [facility] R [place] 57 degrees [facility] T [place] 12 degrees [facility] Diagnosis Normal sinus rhythm Nonspecific T wave abnormality Prolonged QT Abnormal ECG When compared with ECG of 05-AUG-2024 14:54, (unconfirmed) No significant change was found Confirmed by SIVA SILVERMAN M.D ([id number]) on 08/06/2024 4:15:19 PM [facility] 08/06/2024 5:53 AM CDT 08/06/2024 4:15 PM CDT Alanna Dominguez NP ECG ORDERABLES Final Result [facility] * eGFR (08/05/2024 8:19 PM [...] NP LAB BLOOD ORDERABLES Final R esult [facility] Department [place] [address] * (ABNORMAL) CBC without differential (08/05/2024 8:19 PM CDT) WBC 10.16(H) 3.80 - 9.90 K/cumm Hgb 8.2(L) 13.0 - 17.5 g/dL [facility] Hct 24.9(L) 38.9 - 50.3 % [facility] Plt 145(L) 150 - 400 K/cumm [facility] MPV 11.3 9.1 - 12.3 fL [facility] RBC 2.42(L) 4.30 - 5.80 M/cumm [facility] MCV 102.9(H) 81.3 - 96.4 fL [facility] MCH 33.9(H) 27.1 - 33.3 pg [facility] MCHC 32.9 32.3 - 35.7 g/dL [facility] RDW CV 14.5 11.1 - 14.9 % [facility] RDW SD 54.6(H) 35.7 - 48.1 fL [facility] NRBC abs 0.00 0.00 - 0.01 K/cumm [facility] Blood 08/05/2024 8:19 PM CDT 08/05/2024 8:48 PM CDT Alanna Dominguez [employer] LAB BLOOD ORDERABLES Final R esult Performing Organization Address [facility] de Phone Number [facility] [place] [address] * Type and screen (08/05/2024 8:19 PM CDT) Kumar, indirect Negative ABO Rh A Positive [facility] Blood 08/05/2024 8:19 PM CDT 08/05/2024 8:51 PM CDT Narrative [facility] - 08/05/2024 10:00 PM CDT Has the patient had Daratumumab or Isatuximab in the past 6 months?->Unknown us Alanna Dominguez NP LAB BLOOD BANK TEST ORDERABL ES Final Result Performing Organization Address [facility] de Phone Number [facility] [place] [address] * Phosphorus (08/05/2024 8:19 PM CDT) Pathologist [facility] Phosphorus, pl 2.5 2.3 - 4.5 mg/dL Blood 08/05/2024 8:19 PM CDT 08/05/2024 8:47 PM CDT us Alanna Dominguez NP LAB BLOOD ORDERABLES Final R esult Performing Organization Address [facility] [place] [address] * Magnesium (08/05/2024 8:19 PM CDT) Magnesium 1.8 1.4 - 2.5 mg/dL Blood 08/05/2024 8:19 PM CDT 08/05/2024 8:47 PM CDT Alanna Dominguez [employer] LAB BLOOD ORDERABLES Final R esult Performing Organization Address [facility] Co de Phone Number [facility] Department [place] [address] * (ABNORMAL) Basic metabolic panel (08/05/2024 8:19 PM CDT) [facility] Sodium 139 135 - 145 mmol/L Potassium, pl 4.0 3.3 - 4.9 mmol/L [facility] Chloride 103 97 - 110 mmol/L [facility] CO2 27 22 - 32 mmol/L [facility] Anion gap 9 2 - 15 mmol/L [facility] BUN 21 6 - 25 mg/dL [facility] Creatinine 0.95 0.80 - 1.30 mg/dL [facility] Glucose 149 70 - 199 mg/dL [facility] Comment: Interpretive Data Fasting glucose [...] 2022. Calcium 8.4(L) 8.5 - 10.3 mg/dL [facility] Blood 08/05/2024 8:19 PM CDT 08/05/2024 8:47 PM CDT us Alanna Dominguez [employer] LAB BLOOD ORDERABLES Final R esult Performing Organization Address [facility] Co de Phone Number [facility] Department [place] [address] * Infection Prevention Joce auris PCR, surveillance Axilla/Groin (08/05/2024 4:41 PM CDT) Joce auris DNA Not Detected Not Detected [facility] Comment: Interpretive Data Testing performed by [facility]ious Disease [facility] using the Idalia liu [id number] Joce auris assay. This assay detects DNA from Joce auris using Real-Time PCR. This assay is laboratory developed and is not cleared by the [facility] Food and Drug Administration. The performance characteristics have been verified by the [facility]ious Disease [facility]. Axilla/Groin 08/05/2024 4:41 PM CDT 08/05/2024 5:24 PM CDT Herson Perla MD LAB MICROBIOLOGY - GENERAL ORDER VAHID Final Result Performing Organization Address City/[facility]/ZIP Co de Phone Number MAR[facility] Department [place] [address] [facility] * ECG 12 lead (08/05/2024 2:54 PM CDT) Ventricular Rate EKG/Min 76 BPM [facility] Atrial Rate 76 BPM [facility] MS-Interval (MSEC) 194 ms [facility] QRS-Interval (MSEC) 82 ms [facility] QT-Interval (MSEC) 454 ms [facility] QTc 510 ms [facility] P [place] 67 degrees [facility] R [place] 62 degrees [facility] T [place] 11 degrees [facility] Diagnosis Normal sinus rhythm Nonspecific T wave abnormality Prolonged QT Abnormal ECG Confirmed by SIVA SILVERMAN M.D ([id number]) on 08/07/2024 10:45:07 PM [facility] 08/05/2024 2:54 PM CDT 08/07/2024 10:45 PM CDT Nick Veliz MD ECG ORDERABLES Final Re sult Performing Organization Address City/[facility]/ZIP Co de Phone Number [facility] * Potassium, whole blood (08/05/2024 12:04 PM CDT) Potassium, bld 4.0 3.3 - 4.9 mmol/L Blood 08/05/2024 12:0 4 PM CDT 08/05/2024 12:08 PM CDT Arabella Gary NP LAB BLOOD ORDERABLES Fi nal Result Performing Organization Address City/[facility]/ZIP Co de Phone Number [facility] [place] [address] * POCT glucose (08/05/2024 12:04 PM CDT) Glucose, POC 125 70 - 199 mg/dL Blood 08/05/2024 12:0 4 PM CDT 08/05/2024 12:04 PM CDT Nick Veliz MD LAB POCT ORDERABLES - DE VICE Final Result Performing Organization Address City/[facility]/ZIP Co de Phone Number [facility] [place] [address] * POCT glucose (08/05/2024 8:07 AM CDT) Glucose, POC 123 70 - 199 mg/dL Blood 08/05/2024 8:07 AM CDT 08/05/2024 8:07 AM CDT Nick Veliz MD LAB POCT ORDERABLES - DE VICE Final Result Performing Organization Address City/[facility] Co de Phone Number [facility] [place] [address] * Potassium, whole blood (08/05/2024 8:02 AM CDT) Potassium, bld 4.0 3.3 - 4.9 mmol/L Blood 08/05/2024 8:02 AM CDT 08/05/2024 8:16 AM CDT Arabella Gary NP LAB BLOOD ORDERABLES Fi nal Result [facility] Department [place] [address] * Critical Care (08/05/2024 6:15 AM CDT) [...] plan with the patient's team and other medical/loss prevention consultant staff. This time was in addition [...] us Codi Ibanez NP IN CLINIC/BEDSIDE ORDERABLES Final Result * Critical Care (08/04/2024 10:03 PM [...] plan with the patient's team and other medical/loss prevention consultant staff. This time was in addition to and separate from care provided by other practitioners on this day of service. I spent time reviewing and interpreting data from bedside monitors, laboratory results, and imaging, I spent time discussing the management of this critically ill patient with consultants and the medical staff and I spent time documenting in the medical record Fermin ANDERSEN IN CLINIC/BEDSIDE ORDERAB LES Final Result * (ABNORMAL) POC Blood Gas and Chemistries, Venous - (08/04/2024 9:41 PM CDT) pH, Carlos POC 7.44(H) 7.32 - 7.43 pCO2, carlos POC 43 40 - 50 mmHg [facility] pO2, carlos POC 41 mmHg [facility] Na, POC 136 135 - 145 mmol/L [facility] K POC 4.0 3.3 - 4.9 mmol/L [facility] Comment: Interpretive Data Not all point of care methods assess for hemolysis. Confirm with instrument and retest K+ if not consistent with clinical signs and symptoms. Current Interpretive Data was last revised on 2023. Cl, POC 104 97 - 110 mmol/L [facility] Ionized Ca, POC 4.62 4.50 - 5.10 mg/dL [facility] Glucose, POC 128 70 - 199 mg/dL [facility] Lactate POC 1.1 0.7 - 2.0 mmol/L [facility] O2 Sat, Carlos POC (Vivian) 61 % [facility] Base excess, POC 4.6 mmol/L [facility] HCO3, Carlos POC 29 20 - 30 mmol/L [facility] Hct, POC 29.0(L) 41.4 - 51.6 % [facility] Total Hb, POC 9.5(L) 13.8 - 17.2 g/dL [facility] Blood 08/04/2024 9:41 PM CDT 08/04/2024 9:41 PM CDT Nick Veliz MD LAB POCT ORDERABLES - DE VICE Final Result Performing Organization Address [facility] Co de Phone Number [facility] Department [place] [address] * (ABNORMAL) CBC without differential (08/04/2024 9:18 PM CDT) [facility] WBC 9.65 3.80 - 9.90 K/cumm Hgb 8.4(L) 13.0 - 17.5 g/dL [facility] Hct 25.2(L) 38.9 - 50.3 % [facility] Plt 120(L) 150 - 400 K/cumm [facility] MPV 11.8 9.1 - 12.3 fL [facility] RBC 2.49(L) 4.30 - 5.80 M/cumm [facility] MCV 101.2(H) 81.3 - 96.4 fL [facility] MCH 33.7(H) 27.1 - 33.3 pg [facility] MCHC 33.3 32.3 - 35.7 g/dL [facility] RDW CV 14.6 11.1 - 14.9 % [facility] RDW SD 54.1(H) 35.7 - 48.1 fL [facility] NRBC abs 0.00 0.00 - 0.01 K/cumm [facility] Blood 08/04/2024 9:18 PM CDT 08/04/2024 9:38 PM CDT Fermin ANDERSEN LAB BLOOD ORDERABLES Teetee l Result [facility] Department [place] [address] * eGFR (08/04/2024 8:52 PM CDT) [facility] eGFR 89 >=60 mL/min/1. 73 m2 Comment: [...] ORDERABLES Fin al Result Performing Organization Address City/[facility]/ZIP Co de Phone Number [facility] Department [place] [address] * Type and screen (08/04/2024 8:52 PM CDT) ABO Rh A Positive Kumar, indirect Negative [facility] Blood 08/04/2024 8:52 PM CDT 08/04/2024 9:19 PM CDT Narrative [facility] - 08/04/2024 10:26 PM CDT Has the patient had Daratumumab or Isatuximab in the past 6 months?->Unknown Fermin De León PA LAB BLOOD BANK TEST ORDER VAHID Final Result Performing Organization Address City/[facility]/ZIP Co de Phone Number [facility] [place] [address] * Phosphorus (08/04/2024 8:52 PM CDT) Phosphorus, pl 2.4 2.3 - 4.5 mg/dL Blood 08/04/2024 8:52 PM CDT 08/04/2024 9:04 PM CDT Selvin Domínguez [employer] LAB BLOOD ORDERABLES Teetee l Result [facility] [place] [address] * Magnesium (08/04/2024 8:52 PM CDT) Pathologist [facility] Magnesium 1.8 1.4 - 2.5 mg/dL Blood 08/04/2024 8:52 PM CDT 08/04/2024 9:04 PM CDT Selvin Domínguez [employer] LAB BLOOD ORDERABLES Teetee l Result Performing Organization Address [facility] Co de Phone Number [facility] [place] [address] * (ABNORMAL) Hepatic function panel (08/04/2024 8:52 PM CDT) Pathologist [facility] Bilirubin, total 0.8 0.1 - 1.2 mg/dL Bilirubin, direct 0.3 0.1 - 0.3 mg/dL [facility] Protein, pl 6.1(L) 6.5 - 8.5 g/dL [facility] Albumin 3.1(L) 3.5 - 5.0 g/dL [facility] Alk phos 54 40 - 130 Units/L [facility] ALT 29 7 - 55 Units/L [facility] AST 49 10 - 50 Units/L [facility] Blood 08/04/2024 8:52 PM CDT 08/04/2024 9:04 PM CDT Marilee Sandoval [employer] LAB BLOOD ORDERABLES Fin al Result Performing Organization Address City/[facility]/ZIP Co de Phone Number [facility] [place] [address] * (ABNORMAL) Basic metabolic panel (08/04/2024 8:52 PM CDT) Sodium 137 135 - 145 mmol/L Potassium, pl 4.1 3.3 - 4.9 mmol/L [facility] Chloride 101 97 - 110 mmol/L [facility] CO2 28 22 - 32 mmol/L [facility] Anion gap 8 2 - 15 mmol/L [facility] BUN 22 6 - 25 mg/dL [facility] Creatinine 0.91 0.80 - 1.30 mg/dL [facility] Glucose 147 70 - 199 mg/dL [facility] Comment: Interpretive Data Fasting glucose [...] 2022. Calcium 7.9(L) 8.5 - 10.3 mg/dL [facility] Blood 08/04/2024 8:52 PM CDT 08/04/2024 9:04 PM CDT Marilee Sandoval NP LAB BLOOD ORDERABLES Fin al Result [facility] [place] [address] * XR Chest 1 View - in PM (08/04/2024 7:50 PM CDT) Anatomical Region Laterality Modality Body, Chest N/A Computed Radiogr aphy 08/05/2024 12:0 0 PM CDT Impressions 08/05/2024 12:00 PM CDT Comparison 08/03/2024 at 7:19 PM. Median sternotomy wires are aligned and intact. Left atrial appendage clip again seen. Aortic valve replacement again noted. [place] catheter has been removed. New left peripherally [...] again seen. Aortic valve replacement again noted. [place] catheter has been removed. New left peripherally inserted central venous catheter seen with tip near the superior cavoatrial junction. Bilateral chest tubes have been removed. Moderate size posterior layering pleural effusions with underlying atelectasis again noted, left greater than right. Mild pulmonary edema may be present. No pneumothorax seen. Cardiomediastinal silhouette stable. Electronically signed by: Jose David Daly M.D. Marilee Sandoval [employer] IMG XR PROCEDURES Final Result * TRANSTHORACIC ECHO (TTE) LIMITED/FOLLOW UP W LTD DOPPLER/CF W CONTRAST (08/04/2024 12:01 PM CDT) Anatomical Region Laterality Modality Ultrasound 08/04/2024 11:1 8 AM CDT Narrative 08/04/2024 1:23 PM CDT [facility] [place] [address] Transthoracic Echocardiographic Report Patient Name: SHEY SHAH C : 1950 (73y 11m) Gender: M Study Date: 08/04/2024 11:18:36 AM Ht(Inch): 73 Wt(Lb): 216.05 BSA: 2.25 Laster [facility] Location: [id number] Order Provider: MARILEE SANDOVAL Heart Rate: 80 [...] Procedure Note Yash Palmer MD - 08/04/2024 [facility] [place] [address] Transthoracic Echocardiographic Report Patient Name: SHEY SHAH C : 1950 (73y 11m) Gender: M Study Date: 08/04/2024 11:18:36 AM Ht(Inch): 73 Wt(Lb): 216.05 BSA: 2.25 Laster Hand: Sandra Medina RDCS,[facility] Location: [id number] OrderProvider: MARILEE SANDOVAL Heart Rate: 80 BMI: [...] 08/04/2024 7:55 AM CDT us Codi Ibanez [employer] LAB BLOOD ORDERABLES Final Re sult [facility] Department [place] [address] * Critical Care (08/04/2024 6:49 AM CDT) [...] plan with the ICU team and other medical/loss prevention consultant staff, making frequent assessments and decisions [...] documenting in the medical record Codi Ibanez [employer] IN CLINIC/BEDSIDE ORDERABLES Final Result * Oxyhemoglobin, pulmonary artery (08/04/2024 12:01 AM CDT) Oxyhemoglobin, PA 61.6 % Comment: Interpretive Data No reference range established. Current interpretive data was last revised 2019. Blood 08/04/2024 12:0 1 AM CDT 08/04/2024 12:20 AM CDT Selvin Domínguez [employer] LAB BLOOD ORDERABLES Teetee l Result Performing Organization Address City/[facility]/ZIP Co de Phone Number [facility] Department [place] [address] * Potassium, whole blood (08/04/2024 12:01 AM CDT) Potassium, bld 3.8 3.3 - 4.9 mmol/L Blood 08/04/2024 12:0 1 AM CDT 08/04/2024 12:21 AM CDT Arabella Gary [employer] LAB BLOOD ORDERABLES Fi nal Result [facility] Department [place] [address] * eGFR (08/04/2024 12:01 AM CDT) eGFR [...] ORDERABLES Fin al Result Performing Organization Address City/[facility]/ZIP Co de Phone Number [facility] [place] [address] * Lactate, whole blood (08/04/2024 12:01 AM CDT) Lactate, bld 0.9 0.7 - 2.0 mmol/L Blood 08/04/2024 12:0 1 AM CDT 08/04/2024 12:21 AM CDT Marilee Sandoval NP LAB BLOOD ORDERABLES Fin al Result Performing Organization Address City/[facility]/ZIP Co de Phone Number [facility] Department [place] [address] * (ABNORMAL) CBC without differential (08/04/2024 12:01 AM CDT) [facility] WBC 8.80 3.80 - 9.90 K/cumm Hgb 8.0(L) 13.0 - 17.5 g/dL [facility] Hct 24.3(L) 38.9 - 50.3 % [facility] Plt 95(L) 150 - 400 K/cumm [facility] MPV 11.7 9.1 - 12.3 fL [facility] RBC 2.40(L) 4.30 - 5.80 M/cumm [facility] MCV 101.3(H) 81.3 - 96.4 fL [facility] MCH 33.3 27.1 - 33.3 pg [facility] MCHC 32.9 32.3 - 35.7 g/dL [facility] RDW CV 14.8 11.1 - 14.9 % [facility] RDW SD 55.1(H) 35.7 - 48.1 fL [facility] NRBC abs 0.00 0.00 - 0.01 K/cumm [facility] Blood 08/04/2024 12:0 1 AM CDT 08/04/2024 12:19 AM CDT us Marilee Sandoval [employer] LAB BLOOD ORDERABLES Fin al Result [facility] Department [place] [address] * Phosphorus (08/04/2024 12:01 AM CDT) [facility] Phosphorus, pl 3.0 2.3 - 4.5 mg/dL Blood 08/04/2024 12:0 1 AM CDT 08/04/2024 12:18 AM CDT Selvin Domínguez [employer] LAB BLOOD ORDERABLES Teetee l Result [facility] [place] [address] * Magnesium (08/04/2024 12:01 AM CDT) Pathologist [facility] Magnesium 1.9 1.4 - 2.5 mg/dL Blood 08/04/2024 12:0 1 AM CDT 08/04/2024 12:18 AM CDT Selvin Domínguez [employer] LAB BLOOD ORDERABLES Teetee l Result Performing Organization Address [facility] Co de Phone Number [facility] [place] [address] * (ABNORMAL) Blood gas, arterial (08/04/2024 12:01 AM CDT) Pathologist [facility] pH, Art 7.46(H) 7.35 - 7.45 PCO2, Arterial 36 35 - 45 mmHg [facility] PO2, Arterial 142(H) 83 - 108 mmHg [facility] HCO3 Art (Calculated) 26 20 - 30 mmol/L [facility] BE, art 2 mmol/L [facility] Comment: Interpretive Data No Reference Range Established Current Interpretive Data was last revised on 2017 O2 Sat Art (Measured) 99(H) 90 - 95 % [facility] Blood 08/04/2024 12:0 1 AM CDT 08/04/2024 12:21 AM CDT us Selvin Domínguez [employer] LAB BLOOD ORDERABLES Teetee l Result Performing Organization Address City/[facility] Co de Phone Number [facility] [place] [address] * Creatine kinase (CK), total (08/04/2024 12:01 AM CDT) CK 60 40 - 300 Units/L Blood 08/04/2024 12:0 1 AM CDT 08/04/2024 12:18 AM CDT Nick Veliz MD LAB BLOOD ORDERABLES Fin al Result Performing Organization Address [facility] Co de Phone Number [facility] Department [place] [address] * (ABNORMAL) Hepatic function panel (08/04/2024 12:01 AM CDT) Bilirubin, total 0.8 0.1 - 1.2 mg/dL Bilirubin, direct 0.4(H) 0.1 - 0.3 mg/dL [facility] Protein, pl 5.8(L) 6.5 - 8.5 g/dL [facility] Albumin 2.8(L) 3.5 - 5.0 g/dL [facility] Alk phos 51 40 - 130 Units/L [facility] ALT 20 7 - 55 Units/L [facility] AST 38 10 - 50 Units/L [facility] Blood 08/04/2024 12:0 1 AM CDT 08/04/2024 12:18 AM CDT Marilee Sandoval NP LAB BLOOD ORDERABLES Fin al Result Performing Organization Address [facility] de Phone Number [facility] Department [place] [address] * (ABNORMAL) Basic metabolic panel (08/04/2024 12:01 AM CDT) Sodium 137 135 - 145 mmol/L Potassium, pl 4.0 3.3 - 4.9 mmol/L [facility] Chloride 103 97 - 110 mmol/L [facility] CO2 26 22 - 32 mmol/L [facility] Anion gap 8 2 - 15 mmol/L [facility] BUN 25 6 - 25 mg/dL [facility] Creatinine 0.93 0.80 - 1.30 mg/dL [facility] Glucose 117 70 - 199 mg/dL [facility] Comment: Interpretive Data Fasting glucose [...] Calcium 8.4(L) 8.5 - 10.3 mg/dL [facility] Blood 08/04/2024 12:0 1 AM CDT 08/04/2024 12:18 AM CDT us Marilee Sandoval NP LAB BLOOD ORDERABLES Fin al Result [facility] [place] [address] * XR Chest 1 View - in PM (08/03/2024 7:21 PM CDT) Anatomical Region Laterality Modality Body, Chest N/A Digital Radiogra phy 08/04/2024 10:1 3 AM CDT Impressions 08/04/2024 10:13 AM CDT Comparison with 08/02/2024. The posterior layering pleural effusions pulmonary edema stable. There is no pneumothorax. [place] catheter projects over the main pulmonary artery. [...] pulmonary edema stable. There is no pneumothorax. [place] catheter projects over the main pulmonary artery. Impala type device is been removed. Sternal wires midline and nondisplaced. Bioprosthetic aortic valve unchanged. Electronically signed by: Jeremias Howard M.D., MPH us Marilee Sandoval [employer] IMG XR PROCEDURES Final Result * Critical [...] plan with the ICU team and other medical/loss prevention consultant staff, making frequent assessments and decisions [...] CDT 08/03/2024 6:25 PM CDT Selvin Domínguez [employer] LAB BLOOD ORDERABLES Teetee l Result [facility] Department [place] [address] * Blood culture Blood (08/03/2024 5:27 PM CDT) Report Final Report: No growth Blood 08/03/2024 5:27 PM CDT 08/03/2024 5:31 PM CDT Narrative [facility] - 08/08/2024 7:00 AM CDT [...] performance characteristics have been verified by the [facility] Microbiology Laboratory. For questions about this culture, contact the Microbiology Laboratory at [phone]. Interpretive data was last revised on 24. us Marilee Sandoval [employer] LAB MICROBIOLOGY - GENER AL ORDERABLES Final Result [facility] Department [place] [id number] * Blood culture Blood (08/03/2024 5:27 PM CDT) Report Final Report: No growth Blood 08/03/2024 5:27 PM CDT 08/03/2024 5:31 PM CDT Narrative MARGI CRAWFORD - 08/08/2024 7:00 AM CDT Collection->Peripheral 1. [...] performance characteristics have been verified by the [facility] Microbiology Laboratory. For questions about this culture, contact the Microbiology Laboratory at [phone]. Interpretive data was last revised on 24. us Marilee Sandoval NP LAB MICROBIOLOGY - GENER AL ORDERABLES Final Result [facility] Department [place] [address] * Potassium, whole blood (08/03/2024 8:36 AM CDT) Potassium, bld 3.8 3.3 - 4.9 mmol/L Blood 08/03/2024 8:36 AM CDT 08/03/2024 8:42 AM CDT us Arabella Gary [employer] LAB BLOOD ORDERABLES Fi nal Result Performing Organization Address City/[facility] Co de Phone Number [facility] Department [place] [address] * Critical Care (08/03/2024 6:55 AM CDT) [...] plan with the ICU team and other medical/loss prevention consultant staff, making frequent assessments and decisions [...] and the medical staff us Marilee Sandoval NP IN CLINIC/BEDSIDE ORDERA BLES Final Result * Oxyhemoglobin, central venous (08/03/2024 12:10 AM CDT) Oxyhemoglobin, CV 60.8 % Comment: Interpretive Data No reference range established. Current interpretive data was last revised 2019. Blood 08/03/2024 12:1 0 AM CDT 08/03/2024 12:26 AM CDT us Marilee Sandoval NP LAB BLOOD ORDERABLES Fin al Result Performing Organization Address City/[facility] Co de Phone Number [facility] [place] [address] * Oxyhemoglobin, pulmonary artery (08/03/2024 12:10 AM CDT) Oxyhemoglobin, PA 62.4 % Comment: Interpretive Data No reference range established. Current interpretive data was last revised 2019. Blood 08/03/2024 12:1 0 AM CDT 08/03/2024 12:26 AM CDT us Selvin Domínguez [employer] LAB BLOOD ORDERABLES Teetee l Result Performing Organization Address [facility] de Phone Number [facility] [place] [address] * (ABNORMAL) Hemoglobin total, pulmonary artery (08/03/2024 12:10 AM CDT) Hemoglobin total, PA 9.0(L) 13.0 - 17.5 g/dL Blood 08/03/2024 12:1 0 AM CDT 08/03/2024 12:26 AM CDT us Arabella Gary [employer] LAB BLOOD ORDERABLES Fi nal Result Performing Organization Address [facility] de Phone Number [facility] Department [place] [address] * Lactate (08/03/2024 12:10 AM CDT) Lactate 0.9 0.7 - 2.0 mmol/L Blood 08/03/2024 12:1 0 AM CDT 08/03/2024 12:30 AM CDT us Marilee Sandoval [employer] LAB BLOOD ORDERABLES Fin al Result Performing Organization Address [facility] Co de Phone Number CERNER [facility] [place] [address] * Hemoglobin, plasma (08/03/2024 12:10 AM CDT) Hemoglobin, Plasma <30 <=50 mg/dL Blood 08/03/2024 12:1 0 AM CDT 08/03/2024 12:26 AM CDT us Marilee Sandoval NP LAB BLOOD ORDERABLES Fin al Result Performing Organization Address City/[facility]/Z[place] [address] * eGFR (08/03/2024 12:10 AM CDT) eGFR [...] 0 AM CDT 08/03/2024 12:54 AM CDT us Nick Veliz MD LAB BLOOD ORDERABLES Fin al Result [facility] Department [place] [address] * Heparin anti factor Xa activity (08/03/2024 [...] 0 AM CDT 08/03/2024 12:29 AM CDT us Nick Veliz MD LAB BLOOD ORDERABLES Estevan mendieta Result Performing Organization Address City/State/[facility] Co de Phone Number [facility] [place] [address] * Lactate, whole blood (08/03/2024 12:10 AM CDT) Lactate, bld 0.9 0.7 - 2.0 mmol/L Blood 08/03/2024 12:1 0 AM CDT 08/03/2024 12:26 AM CDT us Nick Veliz MD LAB BLOOD ORDERABLES Fin al Result Performing Organization Address [facility] de Phone Number [facility] [place] [address] * aPTT (08/03/2024 12:10 AM CDT) aPTT 30 28 - 38 sec Comment: Interpretive Data Heparin therapeutic range: 66.0 - 100.0 seconds. Range based on correlation with therapeutic heparin activity range of 0.3 - 0.7 Units/mL. Current interpretive data was last revised on 2023. Blood 08/03/2024 12:1 0 AM CDT 08/03/2024 12:29 AM CDT Result [facility] Marilee Sandoval NP LAB BLOOD ORDERABLES Fin al Result Performing Organization Address [facility] [place] [address] * (ABNORMAL) Protime-INR (08/03/2024 12:10 AM CDT) PT 16.8(H) 9.7 - 13.0 sec INR 1.54(H) 0.90 - 1.20 [facility] Comment: Interpretive data Oral anticoagulant [...] ORDERABLES Fin al Result Performing Organization Address [facility] de Phone Number [facility] [place] [address] * (ABNORMAL) Fibrinogen (08/03/2024 12:10 AM CDT) Pathologist [facility] Fibrinogen 561(H) 170 - 400 mg/dL Blood 08/03/2024 12:1 0 AM CDT 08/03/2024 12:29 AM CDT Nick Veliz MD LAB BLOOD ORDERABLES Fin al Result Performing Organization Address [facility] Co de Phone Number [facility] Department [place] [address] * (ABNORMAL) CBC without differential (08/03/2024 12:10 AM CDT) [facility] WBC 9.31 3.80 - 9.90 K/cumm Hgb 8.4(L) 13.0 - 17.5 g/dL [facility] Hct 24.6(L) 38.9 - 50.3 % [facility] Plt 74(L) 150 - 400 K/cumm [facility] MPV 12.0 9.1 - 12.3 fL [facility] RBC 2.47(L) 4.30 - 5.80 M/cumm [facility] MCV 99.6(H) 81.3 - 96.4 fL [facility] MCH 34.0(H) 27.1 - 33.3 pg [facility] MCHC 34.1 32.3 - 35.7 g/dL [facility] RDW CV 15.3(H) 11.1 - 14.9 % [facility] RDW SD 55.7(H) 35.7 - 48.1 fL [facility] NRBC abs 0.00 0.00 - 0.01 K/cumm [facility] Blood 08/03/2024 12:1 0 AM CDT 08/03/2024 12:26 AM CDT Marilee Sandoval NP LAB BLOOD ORDERABLES Fin al Result Performing Organization Address City/[facility]/ZIP Co de Phone Number [facility] Department [place] [address] * Phosphorus (08/03/2024 12:10 AM CDT) Phosphorus, pl 3.6 2.3 - 4.5 mg/dL Blood 08/03/2024 12:1 0 AM CDT 08/03/2024 12:30 AM CDT us Selvin Domínguez [employer] LAB BLOOD ORDERAB[place] [address] * Magnesium (08/03/2024 12:10 AM CDT) Pathologist [facility] Magnesium 1.8 1.4 - 2.5 mg/dL Blood 08/03/2024 12:1 0 AM CDT 08/03/2024 12:30 AM CDT Selvin Domínguez [employer] LAB BLOOD ORDERABLES Teetee l Result Performing Organization Address City/[facility] Co de Phone Number [facility] [place] [address] * (ABNORMAL) Lactate dehydrogenase (LD) (08/03/2024 12:10 AM CDT) Pathologist [facility] Lactate dehydrogenase (LDH) 347(H) 100 - 250 Units/L Blood 08/03/2024 12:1 0 AM CDT 08/03/2024 12:30 AM CDT us Marilee Sandoval [employer] LAB BLOOD ORDERABLES Fin al Result Performing Organization Address City/[facility]/ZIP Co de Phone Number [facility] [place] [address] * (ABNORMAL) Blood gas, arterial (08/03/2024 12:10 AM CDT) Pathologist [facility] pH, Art 7.46(H) 7.35 - 7.45 PCO2, Arterial 36 35 - 45 mmHg [facility] PO2, Arterial 130(H) 83 - 108 mmHg [facility] HCO3 Art (Calculated) 26 20 - 30 mmol/L [facility] BE, art 2 mmol/L [facility] Comment: Interpretive Data No Reference Range Established Current Interpretive Data was last revised on 2017 O2 Sat Art (Measured) 99(H) 90 - 95 % [facility] Blood 08/03/2024 12:1 0 AM CDT 08/03/2024 12:26 AM CDT Selvin Domínguez NP LAB BLOOD ORDERABLES Teetee l Result Performing Organization Address City/[facility]/ZIP Co de Phone Number [facility] Department [place] [address] * Creatine kinase (CK), total (08/03/2024 12:10 AM CDT) [facility] CK 97 40 - 300 Units/L Blood 08/03/2024 12:1 0 AM CDT 08/03/2024 12:30 AM CDT Nick Veliz MD LAB BLOOD ORDERABLES Fin al Result Performing Organization Address City/[facility]/ZIP Co de Phone Number [facility] Department [place] [address] * (ABNORMAL) Hepatic function panel (08/03/2024 12:10 AM CDT) [facility] Bilirubin, total 0.9 0.1 - 1.2 mg/dL Bilirubin, direct 0.4(H) 0.1 - 0.3 mg/dL [facility] Protein, pl 5.9(L) 6.5 - 8.5 g/dL [facility] Albumin 3.1(L) 3.5 - 5.0 g/dL [facility] Alk phos 50 40 - 130 Units/L [facility] ALT 15 7 - 55 Units/L [facility] AST 41 10 - 50 Units/L [facility] Blood 08/03/2024 12:1 0 AM CDT 08/03/2024 12:30 AM CDT Marilee Sandoval NP LAB BLOOD ORDERABLES Fin al Result Performing Organization Address [facility]/ZIP Co de Phone Number [facility] Department [place] [address] * (ABNORMAL) Basic metabolic panel (08/03/2024 12:10 AM CDT) [facility] Sodium 139 135 - 145 mmol/L Potassium, pl 3.8 3.3 - 4.9 mmol/L [facility] Chloride 106 97 - 110 mmol/L [facility] CO2 25 22 - 32 mmol/L [facility] Anion gap 8 2 - 15 mmol/L [facility] BUN 26(H) 6 - 25 mg/dL [facility] Creatinine 0.95 0.80 - 1.30 mg/dL [facility] Glucose 124 70 - 199 mg/dL [facility] Comment: Interpretive Data Fasting glucose [...] 2022. Calcium 9.0 8.5 - 10.3 mg/dL [facility] Blood 08/03/2024 12:1 0 AM CDT 08/03/2024 12:30 AM CDT Nick Veliz MD LAB BLOOD ORDERABLES Fin al Result [facility] [place] [address] * XR Chest 1 View - in [...] by: Jimmy Camacho M.D. us Marilee Sandoval [employer] IMG XR PROCEDURES Final Result * POCT glucose (08/02/2024 8:15 PM CDT) Glucose, POC 139 70 - 199 mg/dL Blood 08/02/2024 8:15 PM CDT 08/02/2024 8:15 PM CDT us Nick Veliz MD LAB POCT ORDERABLES - DE VICE Final Result Performing Organization Address City/[facility]/ZIP Co de Phone Number [facility]GI SANTA [facility] [place] [address] * Critical Care (08/02/2024 6:53 PM CDT) [...] plan with the ICU team and other medical/loss prevention consultant staff, making frequent assessments and decisions [...] 6:12 PM CDT 08/02/2024 6:12 PM CDT us Nick Veliz MD LAB POCT ORDERABLES - DE VICE Final Result Performing Organization Address City/[facility]/ZIP Co de Phone Number MARGI ARINA [facility] Department [place] [address] * Oxyhemoglobin, pulmonary artery (08/02/2024 3:30 PM CDT) Oxyhemoglobin, PA 64.3 % Comment: Interpretive Data No reference range established. Current interpretive data was last revised 2019. Blood 08/02/2024 3:30 PM CDT 08/02/2024 3:34 PM CDT Selvin Domínguez [employer] LAB BLOOD ORDERABLES [place] [address] * (ABNORMAL) Hemoglobin total, pulmonary artery (08/02/2024 3:30 PM CDT) Hemoglobin total, PA 8.5(L) 13.0 - 17.5 g/dL Blood 08/02/2024 3:30 PM CDT 08/02/2024 3:34 PM CDT Arabella Gary [employer] LAB BLOOD ORDERABLES Fi nal Result Performing Organization Address City/[facility]/ZIP Co de Phone Number [facility] [place] [address] * Potassium, whole blood (08/02/2024 3:30 PM CDT) Potassium, bld 3.9 3.3 - 4.9 mmol/L Blood 08/02/2024 3:30 PM CDT 08/02/2024 3:34 PM CDT Arabella Gary [employer] LAB BLOOD ORDERABLES Fi nal Result [facility] [place] [address] * eGFR (08/02/2024 3:30 PM CDT) eGFR [...] CDT Marilee Sandoval NP LAB BLOOD ORDERABLES [facility] al Result [facility]GI [facility] Department [place] [address] * Heparin anti factor Xa activity (08/02/2024 3:30 PM CDT) Anti Factor Xa <0.10 IUnits/mL Comment: No clot detected in sample - [id number] - 08/02/24, 4:05 PM Interpretive Data Enoxaparin [...] ORDERABLES Fin al Result Performing Organization Address [facility] Co de Phone Number [facility] Department [place] [address] * Lactate, whole blood (08/02/2024 3:30 PM CDT) Lactate, bld 1.1 0.7 - 2.0 mmol/L Blood 08/02/2024 3:30 PM CDT 08/02/2024 3:34 PM CDT Codi Ibanez NP LAB BLOOD ORDERABLES Final Re sult Performing Organization Address [facility] Co de Phone Number [facility] [place] [address] * (ABNORMAL) aPTT (08/02/2024 3:30 PM CDT) aPTT 26(L) 28 - 38 sec Comment: Interpretive Data Heparin therapeutic range: 66.0 - 100.0 seconds. Range based on correlation with therapeutic heparin activity range of 0.3 - 0.7 Units/mL. Current interpretive data was last revised on 2023. Blood 08/02/2024 3:30 PM CDT 08/02/2024 3:34 PM CDT Marilee Sandoval [employer] LAB BLOOD ORDERABLES Fin al Result Performing Organization Address [facility] de Phone Number [facility] [place] [address] * (ABNORMAL) Protime-INR (08/02/2024 3:30 PM CDT) Pathologist [facility] PT 17.3(H) 9.7 - 13.0 sec INR 1.59(H) 0.90 - 1.20 [facility] Comment: Interpretive data Oral anticoagulant therapeutic ranges: Venous thromboembolism prophylaxis or treatment: 2.0-3.0 CARDIOLOGY Standard range: 2.0-3.0 High-intensity range: 2.5-3.5 Refer to indication-specific guidelines for appropriate target ranges for prosthetic heart valve replacement. Current interpretive data was last revised on 2019. Blood 08/02/2024 3:30 PM CDT 08/02/2024 3:34 PM CDT Marilee Sandoval [employer] LAB BLOOD ORDERABLES Fin al Result Performing Organization Address [facility] de Phone Number [facility] Department [place] [address] * (ABNORMAL) CBC without differential (08/02/2024 3:30 PM CDT) Pathologist [facility] WBC 9.51 3.80 - 9.90 K/cumm Hgb 8.4(L) 13.0 - 17.5 g/dL [facility] Hct 24.9(L) 38.9 - 50.3 % [facility] Plt 72(L) 150 - 400 K/cumm [facility] MPV 11.5 9.1 - 12.3 fL [facility] RBC 2.50(L) 4.30 - 5.80 M/cumm [facility] MCV 99.6(H) 81.3 - 96.4 fL [facility] MCH 33.6(H) 27.1 - 33.3 pg [facility] MCHC 33.7 32.3 - 35.7 g/dL [facility] RDW CV 15.5(H) 11.1 - 14.9 % [facility] RDW SD 56.6(H) 35.7 - 48.1 fL [facility] NRBC abs 0.00 0.00 - 0.01 K/cumm [facility] Blood 08/02/2024 3:30 PM CDT 08/02/2024 3:40 PM CDT Codi Ibanez [employer] LAB BLOOD ORDERABLES Final Re sult Performing Organization Address City/[facility] Co de Phone Number [facility] Department [place] [address] * Type and screen (08/02/2024 3:30 PM CDT) Pathologist [facility] Kumar, indirect Negative ABO Rh A Positive [facility] Blood 08/02/2024 3:30 PM CDT 08/02/2024 3:39 PM CDT Narrative [facility] - 08/02/2024 4:31 PM CDT Has the patient had Daratumumab or Isatuximab in the past 6 months?->Unknown Nick Veliz MD LAB BLOOD BANK TEST ORDE RABLES Final Result Performing Organization Address City/[facility]/ZIP Co de Phone Number [facility] Department [place] [address] * (ABNORMAL) Blood gas, arterial (08/02/2024 3:30 PM CDT) pH, Art 7.47(H) 7.35 - 7.45 PCO2, Arterial 33(L) 35 - 45 mmHg [facility] PO2, Arterial 142(H) 83 - 108 mmHg [facility] HCO3 Art (Calculated) 24 20 - 30 mmol/L [facility] BE, art 0 mmol/L [facility] Comment: Interpretive Data No Reference Range Established Current Interpretive Data was last revised on 2017 O2 Sat Art (Measured) 100(H) 90 - 95 % [facility] Blood 08/02/2024 3:30 PM CDT 08/02/2024 3:34 PM CDT Selvin Domínguez [employer] LAB BLOOD ORDERABLES Teetee keith Result [facility] Department [place] [address] * Basic metabolic panel (08/02/2024 3:30 PM CDT) Sodium 139 135 - 145 mmol/L Potassium, pl 3.8 3.3 - 4.9 mmol/L [facility] Chloride 104 97 - 110 mmol/L [facility] CO2 26 22 - 32 mmol/L [facility] Anion gap 9 2 - 15 mmol/L [facility] BUN 25 6 - 25 mg/dL [facility] Creatinine 1.03 0.80 - 1.30 mg/dL [facility] Glucose 166 70 - 199 mg/dL [facility] Comment: Interpretive Data Fasting glucose [...] 2022. Calcium 9.1 8.5 - 10.3 mg/dL [facility] Blood 08/02/2024 3:30 PM CDT 08/02/2024 3:40 PM CDT Marilee Sandoval [employer] LAB BLOOD ORDERABLES Fin al Result Performing Organization Address City/[facility]/ZIP Co de Phone Number MARGI [facility] Department [place] [address] * POCT glucose (08/02/2024 3:24 PM CDT) Glucose, POC 173 70 - 199 mg/dL Blood 08/02/2024 3:24 PM CDT 08/02/2024 3:24 PM CDT us Nick Veliz MD LAB POCT ORDERABLES - DE VICE Final Result Performing Organization Address [facility] Co de Phone Number MARGI [facility] [place] [address] * TRANSTHORACIC ECHO (TTE) LIMITED/FOLLOW UP W LTD DOPPLER/CF W CONTRAST (08/02/2024 2:23 PM CDT) Anatomical Region Laterality Modality Ultrasound 08/02/2024 1:59 PM CDT Narrative 08/02/2024 4:22 PM CDT [facility] [place] [address] Transthoracic Echocardiographic Report Patient Name: SHEY SHAH C : 1950 (73y 11m) Gender: M Study Date: 08/02/2024 01:59:15 PM Ht(Inch): 73 Wt(Lb): 216.05 BSA: 2.25 Laster Hand: REBECCA Diane Location: [id number] Order Provider: JORDY KAMARA Heart Rate: 90 [...] Procedure Note Cecilia Hair MD - 08/02/2024 [facility] [place] [address] Transthoracic Echocardiographic Report Patient Name: SHEY SHAH C : 1950 (73y 11m) Gender: M Study Date: 08/02/2024 01:59:15 PM Ht(Inch): 73 Wt(Lb): 216.05 BSA: 2.25 Laster Hand: REBECCA Diane Location: [id number] Order Provider:JORDY KAMARA Heart Rate: 90 BMI: [...] Cecilia Hair M.D. 08/02/2024 4:21:30 PM CDT Jordy Kamara [facility] CV ECHO PROCEDURES Teetee keith Result * Oxyhemoglobin, pulmonary artery (08/02/2024 8:43 AM CDT) Oxyhemoglobin, PA 48.8 % Comment: Interpretive Data No reference range established. Current interpretive data was last revised 2019. Blood 08/02/2024 8:43 AM CDT 08/02/2024 8:44 AM CDT Selvin Domínguez [employer] LAB BLOOD ORDERABLES Teetee l Result Performing Organization Address City/[facility] Co de Phone Number [facility] [place] [address] * (ABNORMAL) Hemoglobin total, pulmonary artery (08/02/2024 8:43 AM CDT) Pathologist [facility] Hemoglobin total, PA 8.9(L) 13.0 - 17.5 g/dL Blood 08/02/2024 8:43 AM CDT 08/02/2024 8:44 AM CDT Arabella Gary [employer] LAB BLOOD ORDERABLES Fi nal Result Performing Organization Address [facility] Co de Phone Number [facility] Department [place] [address] * Lactate (08/02/2024 8:43 AM CDT) Pathologist [facility] Lactate 1.3 0.7 - 2.0 mmol/L Blood 08/02/2024 8:43 AM CDT 08/02/2024 8:44 AM CDT Selvin Domínguez [employer] LAB BLOOD ORDERABLES Teetee l Result Performing Organization Address [facility] Co de Phone Number [facility] [place] [address] * Calcium, ionized (08/02/2024 8:43 AM CDT) Calcium, Ionized 4.92 4.50 - 5.10 mg/dL Blood 08/02/2024 8:43 AM CDT 08/02/2024 8:44 AM CDT Nick Veliz MD LAB BLOOD ORDERABLES Fin al Result Performing Organization Address [facility] Co de Phone Number [facility] [place] [address] * (ABNORMAL) Blood gas, arterial (08/02/2024 8:43 AM CDT) Pathologist [facility] pH, Art 7.47(H) 7.35 - 7.45 PCO2, Arterial 30(L) 35 - 45 mmHg [facility] PO2, Arterial 93 83 - 108 mmHg [facility] HCO3 Art (Calculated) 22 20 - 30 mmol/L [facility] BE, art -2 mmol/L [facility] Comment: Interpretive Data No Reference Range Established Current Interpretive Data was last revised on 2017 O2 Sat Art (Measured) 98(H) 90 - 95 % [facility] Blood 08/02/2024 8:43 AM CDT 08/02/2024 8:44 AM CDT Selvin Domínguez [employer] LAB BLOOD ORDERABLES Teetee l Result Performing Organization Address [facility] Co de Phone Number [facility] Department [place] [address] * POCT glucose (08/02/2024 8:32 AM CDT) Glucose, POC 131 70 - 199 mg/dL Blood 08/02/2024 8:32 AM CDT 08/02/2024 8:32 AM CDT Nick Veliz MD LAB POCT ORDERABLES - DE VICE Final Result Performing Organization Address [facility] Co de Phone Number [facility] [place] [address] * Critical Care (08/02/2024 6:55 AM CDT) [...] plan with the ICU team and other medical/loss prevention consultant staff, making frequent assessments and decisions [...] us Codi Ibanez NP IN CLINIC/BEDSIDE ORDERABLES Final Result * Oxyhemoglobin, pulmonary artery (08/02/2024 4:06 AM CDT) Oxyhemoglobin, PA 54.3 % Comment: Interpretive Data No reference range established. Current interpretive data was last revised 2019. Blood 08/02/2024 4:06 AM CDT 08/02/2024 4:10 AM CDT us Selvin Domínguez NP LAB BLOOD ORDERABLES Teetee l Result MARGI CRAWFORD [facility] Department of Laboratories [place] [address] * (ABNORMAL) Hemoglobin total, pulmonary artery (08/02/2024 4:06 AM CDT) Hemoglobin total, PA 8.5(L) 13.0 - 17.5 g/dL Blood 08/02/2024 4:06 AM CDT 08/02/2024 4:10 AM CDT Arabella Gary [employer] LAB BLOOD ORDERABLES Fi nal Result Performing Organization Address City/[facility]/ZIP Co de Phone Number [facility] [place] [address] * (ABNORMAL) Blood gas, arterial (08/02/2024 4:06 AM CDT) pH, Art 7.48(H) 7.35 - 7.45 PCO2, Arterial 31(L) 35 - 45 mmHg [facility] PO2, Arterial 97 83 - 108 mmHg [facility] HCO3 Art (Calculated) 23 20 - 30 mmol/L [facility] BE, art 0 mmol/L [facility] Comment: Interpretive Data No Reference Range Established Current Interpretive Data was last revised on 2017 O2 Sat Art (Measured) 98(H) 90 - 95 % [facility] Blood 08/02/2024 4:06 AM CDT 08/02/2024 4:10 AM CDT Selvin Domínguez [employer] LAB BLOOD ORDERABLES Teetee l Result [facility] One [facility] [place] [address] * POCT glucose (08/02/2024 4:04 AM CDT) Glucose, POC 142 70 - 199 mg/dL Blood 08/02/2024 4:04 AM CDT 08/02/2024 4:04 AM CDT us Nick Veliz MD LAB POCT ORDERABLES - DE VICE Final Result [facility] Department [place] [address] * Lactate (08/02/2024 12:47 AM CDT) Lactate 1.0 0.7 - 2.0 mmol/L Blood 08/02/2024 12:4 7 AM CDT 08/02/2024 12:57 AM CDT Marilee Sandoval NP LAB BLOOD ORDERABLES Fin al Result Performing Organization Address [facility] Co de Phone Number [facility] [place] [address] * eGFR (08/02/2024 12:47 AM CDT) eGFR [...] CDT 08/02/2024 12:56 AM CDT Marilee Sandoval [employer] LAB BLOOD ORDERABLES Fin al Result [facility] Department [place] [address] * Heparin anti factor Xa activity (08/02/2024 [...] 08/02/2024 12:49 AM CDT us Marilee Sandoval NP LAB BLOOD ORDERABLES Fin al Result [facility] Department [place] [address] * aPTT (08/02/2024 12:47 AM CDT) aPTT 30 28 - 38 sec Comment: Interpretive Data Heparin therapeutic range: 66.0 - 100.0 seconds. Range based on correlation with therapeutic heparin activity range of 0.3 - 0.7 Units/mL. Current interpretive data was last revised on 2023. Blood 08/02/2024 12:4 7 AM CDT 08/02/2024 12:48 AM CDT Marilee Sandoval NP LAB BLOOD ORDERABLES Fin al Result Performing Organization Address [facility] de Phone Number [facility] Department [place] [address] * (ABNORMAL) Protime-INR (08/02/2024 12:47 AM CDT) PT 15.2(H) 9.7 - 13.0 sec INR 1.40(H) 0.90 - 1.20 [facility] Comment: Interpretive data Oral anticoagulant therapeutic ranges: Venous thromboembolism prophylaxis or treatment: 2.0-3.0 CARDIOLOGY Standard range: 2.0-3.0 High-intensity range: 2.5-3.5 Refer to indication-specific guidelines for appropriate target ranges for prosthetic heart valve replacement. Current interpretive data was last revised on 2019. Blood 08/02/2024 12:4 7 AM CDT 08/02/2024 12:48 AM CDT Marilee Sandoval NP LAB BLOOD ORDERABLES Fin al Result Performing Organization Address [facility] Co de Phone Number [facility] Department [place] [address] * (ABNORMAL) Fibrinogen (08/02/2024 12:47 AM CDT) Fibrinogen 487(H) 170 - 400 mg/dL Blood 08/02/2024 12:4 7 AM CDT 08/02/2024 12:48 AM CDT Nick Veliz MD LAB BLOOD ORDERABLES Fin al Result Performing Organization Address [facility] Co de Phone Number [facility] [place] [address] * Phosphorus (08/02/2024 12:47 AM CDT) Phosphorus, pl 3.6 2.3 - 4.5 mg/dL Blood 08/02/2024 12:4 7 AM CDT 08/02/2024 12:56 AM CDT Selvin Domínguez [employer] LAB BLOOD ORDERABLES Teetee l Result Performing Organization Address [facility] [place] [address] * Magnesium (08/02/2024 12:47 AM CDT) Pathologist [facility] Magnesium 2.1 1.4 - 2.5 mg/dL Blood 08/02/2024 12:4 7 AM CDT 08/02/2024 12:56 AM CDT Selvin Domínguez [employer] LAB BLOOD ORDERABLES Teetee l Result Performing Organization Address [facility] Co de Phone Number [facility] [place] [address] * (ABNORMAL) Lactate dehydrogenase (LD) (08/02/2024 12:47 AM CDT) Pathologist [facility] Lactate dehydrogenase (LDH) 410(H) 100 - 250 Units/L Blood 08/02/2024 12:4 7 AM CDT 08/02/2024 12:56 AM CDT Marilee Sandoval [employer] LAB BLOOD ORDERABLES Fin al Result Performing Organization Address [facility] Co de Phone Number [facility] [place] [address] * Creatine kinase (CK), total (08/02/2024 12:47 AM CDT) [facility] CK 164 40 - 300 Units/L Blood 08/02/2024 12:4 7 AM CDT 08/02/2024 12:56 AM CDT Nick Veliz MD LAB BLOOD ORDERABLES Fin al Result Performing Organization Address [facility] de Phone Number [facility] Department [place] [address] * (ABNORMAL) Hepatic function panel (08/02/2024 12:47 AM CDT) [facility] Bilirubin, total 1.1 0.1 - 1.2 mg/dL Bilirubin, direct 0.5(H) 0.1 - 0.3 mg/dL [facility] Protein, pl 5.9(L) 6.5 - 8.5 g/dL [facility] Albumin 3.5 3.5 - 5.0 g/dL [facility] Alk phos 50 40 - 130 Units/L [facility] ALT 10 7 - 55 Units/L [facility] AST 44 10 - 50 Units/L [facility] Blood 08/02/2024 12:4 7 AM CDT 08/02/2024 12:56 AM CDT Marilee Sandoval NP LAB BLOOD ORDERABLES Fin al Result Performing Organization Address [facility] de Phone Number [facility] Department [place] [address] * Basic metabolic panel (08/02/2024 12:47 AM CDT) [facility] Sodium 140 135 - 145 mmol/L Potassium, pl 4.4 3.3 - 4.9 mmol/L [facility] Chloride 106 97 - 110 mmol/L [facility] CO2 24 22 - 32 mmol/L [facility] Anion gap 10 2 - 15 mmol/L [facility] BUN 23 6 - 25 mg/dL [facility] Creatinine 1.02 0.80 - 1.30 mg/dL [facility] Glucose 141 70 - 199 mg/dL [facility] Comment: Interpretive Data Fasting glucose [...] 2022. Calcium 8.8 8.5 - 10.3 mg/dL [facility] Blood 08/02/2024 12:4 7 AM CDT 08/02/2024 12:56 AM CDT Marilee Sandoval [employer] LAB BLOOD ORDERABLES Fin al Result Performing Organization Address City/[facility] Co de Phone Number [facility] [place] [address] * Oxyhemoglobin, central venous (08/02/2024 12:23 AM CDT) Pathologist [facility] Oxyhemoglobin, CV 67.9 % Comment: Interpretive Data No reference range established. Current interpretive data was last revised 2019. Blood 08/02/2024 12:2 3 AM CDT 08/02/2024 12:45 AM CDT Marilee Sandoval [employer] LAB BLOOD ORDERABLES Fin al Result [facility] Department [place] [address] * Oxyhemoglobin, pulmonary artery (08/02/2024 12:23 AM CDT) Oxyhemoglobin, PA 60.7 % Comment: Interpretive Data No reference range established. Current interpretive data was last revised 2019. Blood 08/02/2024 12:2 3 AM CDT 08/02/2024 12:45 AM CDT Marilee Sandoval [employer] LAB BLOOD ORDERABLES Fin al Result Performing Organization Address [facility] Co de Phone Number [facility] [place] [address] * Hemoglobin, plasma (08/02/2024 12:23 AM CDT) Pathologist [facility] Hemoglobin, Plasma <30 <=50 mg/dL Blood 08/02/2024 12:2 3 AM CDT 08/02/2024 12:45 AM CDT Marilee Sandoval [employer] LAB BLOOD ORDERABLES Fin al Result Performing Organization Address [facility] de Phone Number [facility] [place] [address] * Lactate, whole blood (08/02/2024 12:23 AM CDT) Pathologist [facility] Lactate, bld 0.8 0.7 - 2.0 mmol/L Blood 08/02/2024 12:2 3 AM CDT 08/02/2024 12:45 AM CDT Marilee Sandoval [employer] LAB BLOOD ORDERABLES Fin al Result Performing Organization Address [facility] de Phone Number [facility] [place] [address] * (ABNORMAL) CBC without differential (08/02/2024 12:23 AM CDT) Pathologist [facility] WBC 10.76(H) 3.80 - 9.90 K/cumm Hgb 8.4(L) 13.0 - 17.5 g/dL [facility] Hct 24.5(L) 38.9 - 50.3 % [facility] Plt 72(L) 150 - 400 K/cumm [facility] MPV 11.8 9.1 - 12.3 fL [facility] RBC 2.47(L) 4.30 - 5.80 M/cumm [facility] MCV 99.2(H) 81.3 - 96.4 fL [facility] MCH 34.0(H) 27.1 - 33.3 pg [facility] MCHC 34.3 32.3 - 35.7 g/dL [facility] RDW CV 16.1(H) 11.1 - 14.9 % [facility] RDW SD 59.5(H) 35.7 - 48.1 fL [facility] NRBC abs 0.00 0.00 - 0.01 K/cumm [facility] Blood 08/02/2024 12:2 3 AM CDT 08/02/2024 12:44 AM CDT Marilee Sandoval [employer] LAB BLOOD ORDERABLES Fin al Result [facility] Department [place] [address] * (ABNORMAL) Blood gas, arterial (08/02/2024 12:23 AM CDT) pH, Art 7.43 7.35 - 7.45 PCO2, Arterial 34(L) 35 - 45 mmHg [facility] PO2, Arterial 92 83 - 108 mmHg [facility] HCO3 Art (Calculated) 23 20 - 30 mmol/L [facility] BE, art -2 mmol/L [facility] Comment: Interpretive Data No Reference Range Established Current Interpretive Data was last revised on 2017 O2 Sat Art (Measured) 98(H) 90 - 95 % [facility] Blood 08/02/2024 12:2 3 AM CDT 08/02/2024 12:45 AM CDT us Selvin Lemonabner [employer] LAB BLOOD ORDERABLES Teetee keith Result [facility] Department [place] [address] * XR Chest 1 View - in PM (08/01/2024 9:27 PM CDT) Anatomical Region Laterality Modality Body, Chest N/A Digital Radiogra phy 08/02/2024 7:33 AM CDT Impressions 08/02/2024 8:42 AM CDT The current study is compared with the prior radiograph dated 07/31/2024 Patient has been extubated. Gastric tube has been removed. An Impella device is in place. Right internal jugular approach [place] catheter overlies the right main pulmonary artery, [...] is in place. Right internal jugular approach [place] catheter overlies the right main pulmonary artery, [...] it. Electronically signed by: Edson Sepulveda M.D. Marilee Sandoval [employer] IMG XR PROCEDURES Final Result * Oxyhemoglobin, pulmonary artery (08/01/2024 8:34 PM CDT) Pathologist [facility] Oxyhemoglobin, PA 56.5 % Comment: Interpretive Data No reference range established. Current interpretive data was last revised 2019. Blood 08/01/2024 8:34 PM CDT 08/01/2024 8:38 PM CDT Selvin Domínguez [employer] LAB BLOOD ORDERABLES Teetee l Result [facility] Department [place] [address] * (ABNORMAL) Hemoglobin total, pulmonary artery (08/01/2024 8:34 PM CDT) [facility] Hemoglobin total, PA 8.5(L) 13.0 - 17.5 g/dL Blood 08/01/2024 8:34 PM CDT 08/01/2024 8:38 PM CDT Arabella Gary [employer] LAB BLOOD ORDERABLES Fi nal Result [facility] Department [place] [address] * Potassium, whole blood (08/01/2024 8:34 PM CDT) Pathologist [facility] Potassium, bld 3.8 3.3 - 4.9 mmol/L Blood 08/01/2024 8:34 PM CDT 08/01/2024 8:38 PM CDT Arabella Gary [employer] LAB BLOOD ORDERABLES Fi nal Result [facility] Department [place] [address] * (ABNORMAL) Blood gas, arterial (08/01/2024 8:34 PM CDT) pH, Art 7.46(H) 7.35 - 7.45 PCO2, Arterial 31(L) 35 - 45 mmHg [facility] PO2, Arterial 111(H) 83 - 108 mmHg [facility] HCO3 Art (Calculated) 23 20 - 30 mmol/L [facility] BE, art -1 mmol/L [facility] Comment: Interpretive Data No Reference Range Established Current Interpretive Data was last revised on 2017 O2 Sat Art (Measured) 99(H) 90 - 95 % [facility] Blood 08/01/2024 8:34 PM CDT 08/01/2024 8:38 PM CDT Selvin Domínguez [employer] LAB BLOOD ORDERABLES Teetee l Result Performing Organization Address [facility]/ZIP Co de Phone Number [facility] Department [place] [address] * POCT glucose (08/01/2024 8:33 PM CDT) Glucose, POC 133 70 - 199 mg/dL Blood 08/01/2024 8:33 PM CDT 08/01/2024 8:33 PM CDT Nick Veliz MD LAB POCT ORDERABLES - DE VICE Final Result Performing Organization Address [facility] Co de Phone Number [facility] Department [place] [address] * Critical Care (08/01/2024 7:18 PM CDT) [...] plan with the ICU team and other medical/loss prevention consultant staff, making frequent assessments and decisions [...] 08/01/2024 3:39 PM CDT us Selvin Domínguez [employer] LAB BLOOD ORDERABLES Teetee keith Result [facility] Department [place] [address] * (ABNORMAL) Hemoglobin total, pulmonary artery (08/01/2024 3:34 PM CDT) Pathologist [facility] Hemoglobin total, PA 8.6(L) 13.0 - 17.5 g/dL Blood 08/01/2024 3:34 PM CDT 08/01/2024 3:39 PM CDT Arabella Gary NP LAB BLOOD ORDERABLES Fi nal Result Performing Organization Address City/[facility] Co de Phone Number [facility] Department [place] [address] * Potassium, whole blood (08/01/2024 3:34 PM CDT) [facility] Potassium, bld 3.8 3.3 - 4.9 mmol/L Blood 08/01/2024 3:34 PM CDT 08/01/2024 3:38 PM CDT Result [facility] Arabella Gary NP LAB BLOOD ORDERABLES Fi nal Result Performing Organization Address [facility] de Phone Number [facility] [place] [address] * (ABNORMAL) Blood gas, arterial (08/01/2024 3:34 PM CDT) Pathologist [facility] pH, Art 7.44 7.35 - 7.45 PCO2, Arterial 32(L) 35 - 45 mmHg [facility] PO2, Arterial 171(H) 83 - 108 mmHg [facility] HCO3 Art (Calculated) 23 20 - 30 mmol/L [facility] BE, art -2 mmol/L [facility] Comment: Interpretive Data No Reference Range Established Current Interpretive Data was last revised on 2017 O2 Sat Art (Measured) 100(H) 90 - 95 % [facility] Blood 08/01/2024 3:34 PM CDT 08/01/2024 3:38 PM CDT Result [facility] Selvin Domínguez [employer] LAB BLOOD ORDERABLES Teetee l Result Performing Organization Address [facility] Co de Phone Number [facility] [place] [address] * POCT glucose (08/01/2024 3:30 PM CDT) Glucose, POC 155 70 - 199 mg/dL Blood 08/01/2024 3:30 PM CDT 08/01/2024 3:30 PM CDT us Nick Veliz MD LAB POCT ORDERABLES - DE VICE Final Result Performing Organization Address [facility] [place] [address] * Oxyhemoglobin, pulmonary artery (08/01/2024 11:50 AM CDT) Oxyhemoglobin, PA 80.0 % Comment: Interpretive Data No reference range established. Current interpretive data was last revised 2019. Blood 08/01/2024 11:5 0 AM CDT 08/01/2024 12:01 PM CDT us Selvin Domínguez [employer] LAB BLOOD ORDERABLES Teetee l Result Performing Organization Address [facility] Co de Phone Number [facility] [place] [address] * (ABNORMAL) Hemoglobin total, pulmonary artery (08/01/2024 11:50 AM CDT) Hemoglobin total, PA 8.9(L) 13.0 - 17.5 g/dL Blood 08/01/2024 11:5 0 AM CDT 08/01/2024 12:01 PM CDT us Arabella Gary [employer] LAB BLOOD ORDERABLES Fi nal Result Performing Organization Address City/[facility]/ZIP Co de Phone Number [facility] [place] [address] * Potassium, whole blood (08/01/2024 11:50 AM CDT) Potassium, bld 4.1 3.3 - 4.9 mmol/L Blood 08/01/2024 11:5 0 AM CDT 08/01/2024 12:01 PM CDT us Arabella Gary [employer] LAB BLOOD ORDERABLES Fi nal Result Performing Organization Address [facility] Co de Phone Number [facility] [place] [address] * eGFR (08/01/2024 11:50 AM CDT) eGFR [...] 08/01/2024 12:09 PM CDT us Marilee Sandoval [employer] LAB BLOOD ORDERABLES Fin al Result Performing Organization Address City/[facility]/ZIP Co de Phone Number [facility] [place] [address] * Heparin anti factor Xa activity (08/01/2024 [...] LAB BLOOD ORDERABLES Fin al Result [facility] [place] [address] * aPTT (08/01/2024 11:50 AM CDT) aPTT 29 28 - 38 sec Comment: Interpretive Data Heparin therapeutic range: 66.0 - 100.0 seconds. Range based on correlation with therapeutic heparin activity range of 0.3 - 0.7 Units/mL. Current interpretive data was last revised on 2023. Blood 08/01/2024 11:5 0 AM CDT 08/01/2024 12:03 PM CDT Marilee Sandoval [employer] LAB BLOOD ORDERABLES Fin al Result Performing Organization Address [facility] de Phone Number [facility] [place] [address] * (ABNORMAL) Protime-INR (08/01/2024 11:50 AM CDT) Pathologist [facility] PT 14.3(H) 9.7 - 13.0 sec INR 1.32(H) 0.90 - 1.20 [facility] Comment: Interpretive data Oral anticoagulant therapeutic ranges: Venous thromboembolism prophylaxis or treatment: 2.0-3.0 CARDIOLOGY Standard range: 2.0-3.0 High-intensity range: 2.5-3.5 Refer to indication-specific guidelines for appropriate target ranges for prosthetic heart valve replacement. Current interpretive data was last revised on 2019. Blood 08/01/2024 11:5 0 AM CDT 08/01/2024 12:03 PM CDT Marilee Sandoval [employer] LAB BLOOD ORDERABLES Fin al Result Performing Organization Address [facility] de Phone Number [facility] [place] [address] * (ABNORMAL) CBC without differential (08/01/2024 11:50 AM CDT) WBC 14.50(H) 3.80 - 9.90 K/cumm Hgb 8.7(L) 13.0 - 17.5 g/dL [facility] Hct 25.7(L) 38.9 - 50.3 % [facility] Plt 86(L) 150 - 400 K/cumm [facility] MPV 11.9 9.1 - 12.3 fL [facility] RBC 2.58(L) 4.30 - 5.80 M/cumm [facility] MCV 99.6(H) 81.3 - 96.4 fL [facility] MCH 33.7(H) 27.1 - 33.3 pg [facility] MCHC 33.9 32.3 - 35.7 g/dL [facility] RDW CV 16.6(H) 11.1 - 14.9 % [facility] RDW SD 61.5(H) 35.7 - 48.1 fL [facility] NRBC abs 0.00 0.00 - 0.01 K/cumm [facility] Blood 08/01/2024 11:5 0 AM CDT 08/01/2024 12:09 PM CDT Marilee Sandoval NP LAB BLOOD ORDERABLES Fin al Result [facility] [place] [address] * Basic metabolic panel (08/01/2024 11:50 AM CDT) Sodium 140 135 - 145 mmol/L Potassium, pl 4.4 3.3 - 4.9 mmol/L [facility] Chloride 106 97 - 110 mmol/L [facility] CO2 23 22 - 32 mmol/L [facility] Anion gap 11 2 - 15 mmol/L [facility] BUN 24 6 - 25 mg/dL [facility] Creatinine 1.22 0.80 - 1.30 mg/dL [facility] Glucose 142 70 - 199 mg/dL [facility] Comment: Interpretive Data Fasting glucose [...] Calcium 9.0 8.5 - 10.3 mg/dL [facility] Blood 08/01/2024 11:5 0 AM CDT 08/01/2024 12:09 PM CDT Marilee Sandoval [employer] LAB BLOOD ORDERABLES Fin al Result Performing Organization Address [facility] Co de Phone Number [facility] [place] [address] * POCT glucose (08/01/2024 11:48 AM CDT) Glucose, POC 139 70 - 199 mg/dL Blood 08/01/2024 11:4 8 AM CDT 08/01/2024 11:48 AM CDT Nick Veliz MD LAB POCT ORDERABLES - DE VICE Final Result Performing Organization Address [facility] Co de Phone Number [facility] [place] [address] * Oxyhemoglobin, pulmonary artery (08/01/2024 7:59 AM CDT) Oxyhemoglobin, PA 85.1 % Comment: Interpretive Data No reference range established. Current interpretive data was last revised 2019. Blood 08/01/2024 7:5 9 AM CDT 08/01/2024 8:04 AM CDT Selvin Domínguez [employer] LAB BLOOD ORDERABLES Teetee l Result Performing Organization Address [facility] Co de Phone Number [facility] [place] [address] * (ABNORMAL) Hemoglobin total, pulmonary artery (08/01/2024 7:59 AM CDT) Hemoglobin total, PA 8.6(L) 13.0 - 17.5 g/dL Blood 08/01/2024 7:59 AM CDT 08/01/2024 8:04 AM CDT Arabella Gary NP LAB BLOOD ORDERABLES Fi nal Result Performing Organization Address City/[facility] Co de Phone Number [facility] [place] [address] * Potassium, whole blood (08/01/2024 7:59 AM CDT) Pathologist [facility] Potassium, bld 4.4 3.3 - 4.9 mmol/L Blood 08/01/2024 7:59 AM CDT 08/01/2024 8:12 AM CDT Arabella Gary NP LAB BLOOD ORDERABLES Fi nal Result Performing Organization Address [facility] Co de Phone Number [facility] [place] [address] * (ABNORMAL) Blood gas, arterial (08/01/2024 7:59 AM CDT) pH, Art 7.42 7.35 - 7.45 PCO2, Arterial 33(L) 35 - 45 mmHg [facility] PO2, Arterial 174(H) 83 - 108 mmHg [facility] [facility] HCO3 Art (Calculated) 22 20 - 30 mmol/L [facility] BE, art -2 mmol/L [facility] Comment: Interpretive Data No Reference Range Established Current Interpretive Data was last revised on 2017 O2 Sat Art (Measured) 99(H) 90 - 95 % [facility] Blood 08/01/2024 7:59 AM CDT 08/01/2024 8:12 AM CDT Selvin Domínguez [employer] LAB BLOOD ORDERABLES Teetee l Result Performing Organization Address [facility] Co de Phone Number [facility] [place] [address] * POCT glucose (08/01/2024 7:54 AM CDT) Glucose, POC 144 70 - 199 mg/dL Blood 08/01/2024 7:54 AM CDT 08/01/2024 7:54 AM CDT Nick Veliz MD LAB POCT ORDERABLES - DE VICE Final Result MARGI [facility] [place] [address] * Critical Care (08/01/2024 7:00 AM CDT) [...] plan with the ICU team and other medical/loss prevention consultant staff, making frequent assessments and decisions [...] us Codi Ibanez NP IN CLINIC/BEDSIDE ORDERABLES Final Result * POCT glucose (08/01/2024 6:17 AM CDT) Glucose, POC 120 70 - 199 mg/dL Blood 08/01/2024 6:17 AM CDT 08/01/2024 6:17 AM CDT Nick Veliz MD LAB POCT ORDERABLES - DE VICE Final Result Performing Organization Address [facility] Co de Phone Number [facility] [place] [address] * POCT glucose (08/01/2024 5:12 AM CDT) Glucose, POC 141 70 - 199 mg/dL Blood 08/01/2024 5:12 AM CDT 08/01/2024 5:12 AM CDT Nick Veliz MD LAB POCT ORDERABLES - DE VICE Final Result Performing Organization Address [facility] de Phone Number [facility] [place] [address] * Oxyhemoglobin, pulmonary artery (08/01/2024 5:11 AM CDT) Pathologist [facility] [place] Oxyhemoglobin, PA 54.5 % Comment: Interpretive Data No reference range established. Current interpretive data was last revised 2019. Blood 08/01/2024 5:11 AM CDT 08/01/2024 5:18 AM CDT Selvin Domínguez [employer] LAB BLOOD ORDERABLES Teetee l Result Performing Organization Address [facility] Co de Phone Number [facility] [place] [address] * (ABNORMAL) Hemoglobin total, pulmonary artery (08/01/2024 5:11 AM CDT) Pathologist [facility] [place] Hemoglobin total, PA 8.3(L) 13.0 - 17.5 g/dL Blood 08/01/2024 5:11 AM CDT 08/01/2024 5:18 AM CDT Arabella Gary [employer] LAB BLOOD ORDERABLES Fi nal Result Performing Organization Address [facility] Co de Phone Number [facility] [place] [address] * (ABNORMAL) Blood gas, arterial (08/01/2024 5:11 AM CDT) pH, Art 7.43 7.35 - 7.45 PCO2, Arterial 32(L) 35 - 45 mmHg [facility] PO2, Arterial 78(L) 83 - 108 mmHg [facility] HCO3 Art (Calculated) 22 20 - 30 mmol/L [facility] BE, art -2 mmol/L [facility] Comment: Interpretive Data No Reference Range Established Current Interpretive Data was last revised on 2017 O2 Sat Art (Measured) 96(H) 90 - 95 % [facility] Blood 08/01/2024 5:11 AM CDT 08/01/2024 5:18 AM CDT Selvin Domínguez [employer] LAB BLOOD ORDERABLES Teetee l Result Performing Organization Address [facility] Co de Phone Number [facility] Department [place] [address] * POCT glucose (08/01/2024 4:01 AM CDT) Glucose, POC 106 70 - 199 mg/dL Blood 08/01/2024 4:01 AM CDT 08/01/2024 4:01 AM CDT Nick Veliz MD LAB POCT ORDERABLES - DE VICE Final Result Performing Organization Address [facility] Co de Phone Number [facility] Department [place] [address] * POCT glucose (08/01/2024 2:16 AM CDT) Glucose, POC 119 70 - 199 mg/dL Blood 08/01/2024 2:16 AM CDT 08/01/2024 2:16 AM CDT Nick Veliz MD LAB POCT ORDERABLES - DE VICE Final Result Performing Organization Address City/[facility]/ZIP Co de Phone Number [facility] [place] [address] * POCT glucose (08/01/2024 1:27 AM CDT) Glucose, POC 128 70 - 199 mg/dL Blood 08/01/2024 1:27 AM CDT 08/01/2024 1:27 AM CDT Nick Veliz MD LAB POCT ORDERABLES - DE VICE Final Result Performing Organization Address [facility] [place] [address] * Oxyhemoglobin, central venous (08/01/2024 12:26 AM CDT) Oxyhemoglobin, CV 80.5 % Comment: Interpretive Data No reference range established. Current interpretive data was last revised 2019. Blood 08/01/2024 12:2 6 AM CDT 08/01/2024 12:44 AM CDT Marilee Sandoval NP LAB BLOOD ORDERABLES Fin al Result [facility] [place] [address] * Oxyhemoglobin, pulmonary artery (08/01/2024 12:26 AM CDT) Oxyhemoglobin, PA 70.4 % Comment: Interpretive Data No reference range established. Current interpretive data was last revised 2019. Blood 08/01/2024 12:2 6 AM CDT 08/01/2024 12:34 AM CDT Marilee Sandoval [employer] LAB BLOOD ORDERABLES Fin al Result Performing Organization Address City/State/[facility] Co de Phone Number [facility] [place] [address] * Lactate (08/01/2024 12:26 AM CDT) Pathologist [facility] [place] Lactate 1.2 0.7 - 2.0 mmol/L Blood 08/01/2024 12:2 6 AM CDT 08/01/2024 12:44 AM CDT Selvin Domínguez [employer] LAB BLOOD ORDERABLES Teetee l Result Performing Organization Address City/[facility] Co de Phone Number [facility] [place] [address] * Hemoglobin, plasma (08/01/2024 12:26 AM CDT) Pathologist [facility] [place] Hemoglobin, Plasma <30 <=50 mg/dL Blood 08/01/2024 12:2 6 AM CDT 08/01/2024 12:35 AM CDT Marilee Sandoval [employer] LAB BLOOD ORDERABLES Fin al Result Performing Organization Address City/[facility] Co de Phone Number [facility] [place] [address] * Potassium, whole blood (08/01/2024 12:26 AM CDT) Pathologist [facility] [place] Potassium, bld 4.4 3.3 - 4.9 mmol/L Blood 08/01/2024 12:2 6 AM CDT 08/01/2024 12:34 AM CDT Arabella Gary NP LAB BLOOD ORDERABLES Fi nal Result Performing Organization Address [facility] Co de Phone Number [facility] [place] [address] * (ABNORMAL) eGFR (08/01/2024 12:26 AM CDT) [...] AM CDT 08/01/2024 12:44 AM CDT us Nick Veliz MD LAB BLOOD ORDERABLES Fin al Result Performing Organization Address City/[facility] Co [facility] Phone Number [facility] [place] [address] * Heparin anti factor Xa activity (08/01/2024 [...] ORDERABLES Fin al Result Performing Organization Address City/[facility] Co de Phone Number [facility] [place] [address] * Lactate, whole blood (08/01/2024 12:26 AM CDT) Lactate, bld 1.2 0.7 - 2.0 mmol/L Blood 08/01/2024 12:2 6 AM CDT 08/01/2024 12:34 AM CDT Nick Veliz MD LAB BLOOD ORDERABLES Fin al Result Performing Organization Address City/[facility] Co de Phone Number [facility] [place] [address] * aPTT (08/01/2024 12:26 AM CDT) aPTT 30 28 - 38 sec Comment: Interpretive Data Heparin therapeutic range: 66.0 - 100.0 seconds. Range based on correlation with therapeutic heparin activity range of 0.3 - 0.7 Units/mL. Current interpretive data was last revised on 2023. Blood 08/01/2024 12:2 6 AM CDT 08/01/2024 12:34 AM CDT Marilee Sandoval [employer] LAB BLOOD ORDERABLES Fin al Result Performing Organization Address [facility] de Phone Number MARGI [facility] [place] [address] * (ABNORMAL) Protime-INR (08/01/2024 12:26 AM CDT) PT 14.2(H) 9.7 - 13.0 sec INR 1.31(H) 0.90 - 1.20 [facility] Comment: Interpretive data Oral anticoagulant [...] ORDERABLES Fin al Result Performing Organization Address [facility] de Phone Number MARGI [facility] [place] [address] * (ABNORMAL) Fibrinogen (08/01/2024 12:26 AM CDT) Fibrinogen 414(H) 170 - 400 mg/dL Blood 08/01/2024 12:2 6 AM CDT 08/01/2024 12:34 AM CDT Nick Veliz MD LAB BLOOD ORDERABLES Fin gayatri Result Performing Organization Address City/[facility] Co de Phone Number [facility] Department [place] [address] * (ABNORMAL) CBC without differential (08/01/2024 12:26 AM CDT) Pathologist [facility] [place] WBC 12.94(H) 3.80 - 9.90 K/cumm Hgb 8.6(L) 13.0 - 17.5 g/dL [facility] Hct 25.3(L) 38.9 - 50.3 % [facility] Plt 73(L) 150 - 400 K/cumm [facility] MPV 11.5 9.1 - 12.3 fL [facility] RBC 2.57(L) 4.30 - 5.80 M/cumm [facility] MCV 98.4(H) 81.3 - 96.4 fL [facility] MCH 33.5(H) 27.1 - 33.3 pg [facility] MCHC 34.0 32.3 - 35.7 g/dL [facility] RDW CV 17.0(H) 11.1 - 14.9 % [facility] RDW SD 61.4(H) 35.7 - 48.1 fL [facility] NRBC abs 0.00 0.00 - 0.01 K/cumm [facility] Blood 08/01/2024 12:2 6 AM CDT 08/01/2024 12:35 AM CDT Marilee Sandoval NP LAB BLOOD ORDERABLES Estevan mendieta Result [facility] Department [place] [address] * (ABNORMAL) Phosphorus (08/01/2024 12:26 AM CDT) Pathologist [facility] [place] Phosphorus, pl 5.0(H) 2.3 - 4.5 mg/dL Blood 08/01/2024 12:2 6 AM CDT 08/01/2024 12:35 AM CDT Selvin Domínguez [employer] LAB BLOOD ORDERABLES Teetee l Result Performing Organization Address [facility] Co de Phone Number [facility] [place] [address] * (ABNORMAL) Magnesium (08/01/2024 12:26 AM CDT) [facility] Magnesium 2.6(H) 1.4 - 2.5 mg/dL Blood 08/01/2024 12:2 6 AM CDT 08/01/2024 12:35 AM CDT Selvin Domínguez [employer] LAB BLOOD ORDERABLES Teetee l Result Performing Organization Address [facility] Co de Phone Number [facility] [place] [address] * (ABNORMAL) Lactate dehydrogenase (LD) (08/01/2024 12:26 AM CDT) [facility] Lactate dehydrogenase (LDH) 400(H) 100 - 250 Units/L Blood 08/01/2024 12:2 6 AM CDT 08/01/2024 12:35 AM CDT Marilee Sandoval [employer] LAB BLOOD ORDERABLES Fin al Result Performing Organization Address City/[facility] Co de Phone Number [facility] [place] [address] * (ABNORMAL) Blood gas, arterial (08/01/2024 12:26 AM CDT) Pathologist [facility] pH, Art 7.38 7.35 - 7.45 PCO2, Arterial 36 35 - 45 mmHg [facility] PO2, Arterial 136(H) 83 - 108 mmHg [facility] HCO3 Art (Calculated) 22 20 - 30 mmol/L [facility] BE, art -4 mmol/L [facility] Comment: Interpretive Data No Reference Range Established Current Interpretive Data was last revised on 2017 O2 Sat Art (Measured) 99(H) 90 - 95 % [facility] Blood 08/01/2024 12:2 6 AM CDT 08/01/2024 12:34 AM CDT Selvin Domínguez NP LAB BLOOD ORDERABLES Teetee l Result Performing Organization Address City/[facility]/ZIP Co de Phone Number [facility] Department [place] [address] * (ABNORMAL) Creatine kinase (CK), total (08/01/2024 12:26 AM CDT) CK 316(H) 40 - 300 Units/L Blood 08/01/2024 12:2 6 AM CDT 08/01/2024 12:35 AM CDT Nick Veliz MD LAB BLOOD ORDERABLES Fin al Result Performing Organization Address [facility] Co de Phone Number [facility] [place] [address] * (ABNORMAL) Hepatic function panel (08/01/2024 12:26 AM CDT) Bilirubin, total 1.4(H) 0.1 - 1.2 mg/dL Bilirubin, direct 0.7(H) 0.1 - 0.3 mg/dL [facility] Protein, pl 5.6(L) 6.5 - 8.5 g/dL [facility] Albumin 3.5 3.5 - 5.0 g/dL [facility] Alk phos 40 40 - 130 Units/L [facility] ALT 8 7 - 55 Units/L [facility] AST 66(H) 10 - 50 Units/L [facility] Blood 08/01/2024 12:2 6 AM CDT 08/01/2024 12:35 AM CDT Marilee Sandoval NP LAB BLOOD ORDERABLES Fin al Result Performing Organization Address City/[facility]/ZIP Co de Phone Number [facility] Department [place] [address] * (ABNORMAL) Basic metabolic panel (08/01/2024 12:26 AM CDT) [facility] Sodium 142 135 - 145 mmol/L Potassium, pl 4.6 3.3 - 4.9 mmol/L [facility] Chloride 108 97 - 110 mmol/L [facility] CO2 22 22 - 32 mmol/L [facility] Anion gap 12 2 - 15 mmol/L [facility] BUN 27(H) 6 - 25 mg/dL [facility] Creatinine 1.42(H) 0.80 - 1.30 mg/dL [facility] Glucose 137 70 - 199 mg/dL [facility] Comment: Interpretive Data Fasting glucose [...] 2022. Calcium 9.2 8.5 - 10.3 mg/dL [facility] Blood 08/01/2024 12:2 6 AM CDT 08/01/2024 12:35 AM CDT Nick Veliz MD LAB BLOOD ORDERABLES Fin al Result Performing Organization Address City/[facility]/ZIP Co de Phone Number [facility] Department [place] [address] * POCT glucose (08/01/2024 12:23 AM CDT) Glucose, POC 134 70 - 199 mg/dL Blood 08/01/2024 12:2 3 AM CDT 08/01/2024 12:23 AM CDT Nick Veliz MD LAB POCT ORDERABLES - DE VICE Final Result Performing Organization Address City/[facility]/[place] [address] * POCT glucose (07/31/2024 10:10 PM CDT) Glucose, POC 107 70 - 199 mg/dL Blood 07/31/2024 10:1 0 PM CDT 07/31/2024 10:10 PM CDT Nick Veliz MD LAB POCT ORDERABLES - DE VICE Final Result Performing Organization Address [facility] [place] [address] * Oxyhemoglobin, pulmonary artery (07/31/2024 9:19 PM CDT) Oxyhemoglobin, PA 71.0 % Comment: Interpretive Data No reference range established. Current interpretive data was last revised 2019. Blood 07/31/2024 9:19 PM CDT 07/31/2024 9:23 PM CDT Selvin Domínguez [employer] LAB BLOOD [place] [address] * (ABNORMAL) Hemoglobin total, pulmonary artery (07/31/2024 9:19 PM CDT) [facility] Hemoglobin total, PA 8.8(L) 13.0 - 17.5 g/dL Blood 07/31/2024 9:19 PM CDT 07/31/2024 9:23 PM CDT Arabella Gary [employer] LAB BLOOD ORDERABLES Fi nal Result Performing Organization Address [facility] de Phone Number [facility] Department [place] [address] * (ABNORMAL) Blood gas, arterial (07/31/2024 9:19 PM CDT) [facility] pH, Art 7.40 7.35 - 7.45 PCO2, Arterial 30(L) 35 - 45 mmHg [facility] PO2, Arterial 159(H) 83 - 108 mmHg [facility] HCO3 Art (Calculated) 19(L) 20 - 30 mmol/L [facility] BE, art -5 mmol/L [facility] Comment: Interpretive Data No Reference Range Established Current Interpretive Data was last revised on 2017 O2 Sat Art (Measured) 100(H) 90 - 95 % [facility] Blood 07/31/2024 9:19 PM CDT 07/31/2024 9:23 PM CDT Selvin Domínguez [employer] LAB BLOOD ORDERABLES Teetee l Result Performing Organization Address City/[facility] Co de Phone Number [facility] Department [place] [address] * POCT glucose (07/31/2024 9:17 PM CDT) [facility] Glucose, POC 116 70 - 199 mg/dL Blood 07/31/2024 9:17 PM CDT 07/31/2024 9:17 PM CDT Nick Veliz MD LAB POCT ORDERABLES - DE VICE Final Result [facility] Department [place] [address] * XR Chest 1 View - in [...] below the level of the hemidiaphragm. A [place] catheter is in place, tip overlies the [...] below the level of the hemidiaphragm. A [place] catheter is in place, tip overlies the [...] plan with the ICU team and other medical/loss prevention consultant staff, making frequent assessments and decisions [...] and the medical staff us [place] Julien NP IN CLINIC/BEDSIDE ORDERABLES F inal Result * Oxyhemoglobin, pulmonary artery (07/31/2024 7:48 PM CDT) Oxyhemoglobin, PA 70.5 % Comment: Interpretive Data No reference range established. Current interpretive data was last revised 2019. Blood 07/31/2024 7:48 PM CDT 07/31/2024 7:53 PM CDT Result [facility] Selvin Domínguez [employer] LAB BLOOD ORDERABLES Teetee l Result Performing Organization Address City/[facility] Co de Phone Number [facility] [place] [address] * (ABNORMAL) Hemoglobin total, pulmonary artery (07/31/2024 7:48 PM CDT) Hemoglobin total, PA 9.0(L) 13.0 - 17.5 g/dL Blood 07/31/2024 7:48 PM CDT 07/31/2024 7:53 PM CDT Result [facility] Arabella Gary NP LAB BLOOD ORDERABLES Fi nal Result Performing Organization Address [facility] Co de Phone Number [facility] [place] [address] * Potassium, whole blood (07/31/2024 7:48 PM CDT) Pathologist [facility] [place] Potassium, bld 4.2 3.3 - 4.9 mmol/L Blood 07/31/2024 7:48 PM CDT 07/31/2024 7:53 PM CDT Result [facility] Arabella Gary [employer] LAB BLOOD ORDERABLES Fi nal Result Performing Organization Address [facility] Co de Phone Number [facility] [place] [address] * (ABNORMAL) Blood gas, arterial (07/31/2024 7:48 PM CDT) pH, Art 7.42 7.35 - 7.45 PCO2, Arterial 31(L) 35 - 45 mmHg [facility] PO2, Arterial 170(H) 83 - 108 mmHg [facility] HCO3 Art (Calculated) 21 20 - 30 mmol/L [facility] BE, art -4 mmol/L [facility] Comment: Interpretive Data No Reference Range Established Current Interpretive Data was last revised on 2017 O2 Sat Art (Measured) 98(H) 90 - 95 % [facility] Blood 07/31/2024 7:48 PM CDT 07/31/2024 7:53 PM CDT us Selvin Domínguez [employer] LAB BLOOD ORDERABLES Teetee l Result [facility] [place] [address] * POCT glucose (07/31/2024 7:44 PM CDT) Glucose, POC 112 70 - 199 mg/dL Blood 07/31/2024 7:44 PM CDT 07/31/2024 7:44 PM CDT us Nick Veliz MD LAB POCT ORDERABLES - DE VICE Final Result [facility] [place] [address] * Transfuse RBC (07/31/2024 7:30 PM CDT) Blood Yazmin Alvarado NP BLOOD TRANSFUSION ORDChet MAYES Final Result [facility] [place] [address] * POCT glucose (07/31/2024 6:15 PM CDT) Glucose, POC 86 70 - 199 mg/dL Blood 07/31/2024 6:15 PM CDT 07/31/2024 6:15 PM CDT Nick Veliz MD LAB POCT ORDERABLES - DE VICE Final Result Performing Organization Address [facility] Co de Phone Number [facility] [place] [address] * POCT glucose (07/31/2024 3:14 PM CDT) [facility] Glucose, POC 101 70 - 199 mg/dL Blood 07/31/2024 3:14 PM CDT 07/31/2024 3:14 PM CDT Nick Veliz MD LAB POCT ORDERABLES - DE VICE Final Result Performing Organization Address [facility] [place] [address] * Prepare RBC: 1 Units (07/31/2024 2:53 PM CDT) [facility] Product code [id number] Unit Number [id number] [facility] Product Blood Type APOS [facility] Dispense Status PRESUMED TRANSFUSED [facility] Blood 07/31/2024 2:53 PM CDT 07/31/2024 2:54 PM CDT Narrative [facility] - 08/01/2024 6:01 AM CDT Are special requirements needed? (All products are leukoreduced and CMV- safe)- >No Date required:-[id number] LRRBC # of [id number] Reasons:-Cardiovascular disease, Hgb <8 g/dL} Yazmin Alvarado NP BLOOD BANK PRODUCT ORD ERABLES Final Result Performing Organization Address [facility] [place] [address] * Methemoglobin, art (07/31/2024 2:10 PM CDT) Methemoglobin, art 1.3 0.0 - 1.9 % Blood 07/31/2024 2:10 PM CDT 07/31/2024 2:15 PM CDT Nick Veliz MD LAB BLOOD ORDERABLES Fin al Result Performing Organization Address City/[facility]/ZIP Co de Phone Number [facility] [place] [address] * Potassium, whole blood (07/31/2024 2:10 PM CDT) Pathologist [facility] [place] Potassium, bld 4.4 3.3 - 4.9 mmol/L Blood 07/31/2024 2:10 PM CDT 07/31/2024 2:15 PM CDT Arabella Gary NP LAB BLOOD ORDERABLES Fi nal Result Performing Organization Address [facility] Co de Phone Number [facility] [place] [address] * (ABNORMAL) eGFR (07/31/2024 2:10 PM CDT) Pathologist [facility] [place] eGFR 50(L) >=60 mL/min/1. 73 m2 Comment: [...] CDT 07/31/2024 2:22 PM CDT Marilee Sandoval [employer] LAB BLOOD ORDERABLES Fin al Result Performing Organization Address [facility] de Phone Number MARGI [facility] [place] [address] * Heparin anti factor Xa activity (07/31/2024 [...] CDT 07/31/2024 2:29 PM CDT Marilee Sandoval NP LAB BLOOD ORDERABLES Fin al Result Performing Organization Address [facility] Co de Phone Number MARGI [facility] [place] [address] * aPTT (07/31/2024 2:10 PM CDT) aPTT 30 28 - 38 sec Comment: Interpretive Data Heparin therapeutic range: 66.0 - 100.0 seconds. Range based on correlation with therapeutic heparin activity range of 0.3 - 0.7 Units/mL. Current interpretive data was last revised on 2023. Blood 07/31/2024 2:10 PM CDT 07/31/2024 2:29 PM CDT Marilee Sandoval [employer] LAB BLOOD ORDERABLES Fin al Result Performing Organization Address [facility] [place] [address] * (ABNORMAL) Protime-INR (07/31/2024 2:10 PM CDT) Pathologist [facility] PT 15.9(H) 9.7 - 13.0 sec INR 1.46(H) 0.90 - 1.20 [facility] Comment: Interpretive data Oral anticoagulant therapeutic ranges: Venous thromboembolism prophylaxis or treatment: 2.0-3.0 CARDIOLOGY Standard range: 2.0-3.0 High-intensity range: 2.5-3.5 Refer to indication-specific guidelines for appropriate target ranges for prosthetic heart valve replacement. Current interpretive data was last revised on 2019. Blood 07/31/2024 2:10 PM CDT 07/31/2024 2:29 PM CDT Marilee Sandoval NP LAB BLOOD ORDERABLES Fin al Result Performing Organization Address City/State/[facility] [place] [address] * (ABNORMAL) CBC without differential (07/31/2024 2:10 PM CDT) WBC 11.86(H) 3.80 - 9.90 K/cumm Hgb 7.8(L) 13.0 - 17.5 g/dL [facility] Hct 22.8(L) 38.9 - 50.3 % [facility] Plt 95(L) 150 - 400 K/cumm [facility] MPV 10.7 9.1 - 12.3 fL [facility] RBC 2.30(L) 4.30 - 5.80 M/cumm [facility] MCV 99.1(H) 81.3 - 96.4 fL [facility] MCH 33.9(H) 27.1 - 33.3 pg [facility] MCHC 34.2 32.3 - 35.7 g/dL [facility] RDW CV 15.4(H) 11.1 - 14.9 % [facility] RDW SD 56.2(H) 35.7 - 48.1 fL [facility] NRBC abs 0.00 0.00 - 0.01 K/cumm [facility] Blood 07/31/2024 2:10 PM CDT 07/31/2024 2:22 PM CDT us Marilee Sandoval [employer] LAB BLOOD ORDERABLES Fin al Result [facility] Department [place] [address] * (ABNORMAL) Blood gas, arterial (07/31/2024 2:10 PM CDT) pH, Art 7.45 7.35 - 7.45 PCO2, Arterial 32(L) 35 - 45 mmHg [facility] PO2, Arterial 175(H) 83 - 108 mmHg [facility] HCO3 Art (Calculated) 23 20 - 30 mmol/L [facility] BE, art -1 mmol/L [facility] Comment: Interpretive Data No Reference Range Established Current Interpretive Data was last revised on 2017 O2 Sat Art (Measured) 100(H) 90 - 95 % [facility] Blood 07/31/2024 2:10 PM CDT 07/31/2024 2:15 PM CDT Selvin Domínguez [employer] LAB BLOOD ORDERABLES Teetee l Result Performing Organization Address City/[facility]/ZIP Co de Phone Number [facility] Department [place] [address] * (ABNORMAL) Basic metabolic panel (07/31/2024 2:10 PM CDT) [facility] Sodium 141 135 - 145 mmol/L Potassium, pl 4.6 3.3 - 4.9 mmol/L [facility] Chloride 108 97 - 110 mmol/L [facility] CO2 25 22 - 32 mmol/L [facility] Anion gap 8 2 - 15 mmol/L [facility] BUN 25 6 - 25 mg/dL [facility] Creatinine 1.48(H) 0.80 - 1.30 mg/dL [facility] Glucose 111 70 - 199 mg/dL [facility] Comment: Interpretive Data Fasting glucose [...] 2022. Calcium 9.0 8.5 - 10.3 mg/dL [facility] Blood 07/31/2024 2:10 PM CDT 07/31/2024 2:22 PM CDT us Marilee Sandoval [employer] LAB BLOOD ORDERABLES Fin al Result Performing Organization Address [facility] Co de Phone Number [facility] Department [place] [address] * POCT glucose (07/31/2024 2:08 PM CDT) Glucose, POC 121 70 - 199 mg/dL Blood 07/31/2024 2:08 PM CDT 07/31/2024 2:08 PM CDT Nick Veliz MD LAB POCT ORDERABLES - DE VICE Final Result Performing Organization Address [facility] Co de Phone Number [facility] [place] [address] * POCT glucose (07/31/2024 12:17 PM CDT) Glucose, POC 121 70 - 199 mg/dL Blood 07/31/2024 12:1 7 PM CDT 07/31/2024 12:17 PM CDT Nick Veliz MD LAB POCT ORDERABLES - DE VICE Final Result Performing Organization Address [facility] Co de Phone Number [facility] [place] [address] * POCT glucose (07/31/2024 11:29 AM CDT) Glucose, POC 121 70 - 199 mg/dL Blood 07/31/2024 11:2 9 AM CDT 07/31/2024 11:29 AM CDT Nick Veliz MD LAB POCT ORDERABLES - DE VICE Final Result Performing Organization Address [facility] Co de Phone Number [facility] [place] [address] * Oxyhemoglobin, central venous (07/31/2024 10:35 AM CDT) Oxyhemoglobin, CV 84.5 % Comment: Interpretive Data No reference range established. Current interpretive data was last revised 2019. Blood 07/31/2024 10:3 5 AM CDT 07/31/2024 10:40 AM CDT Selvin Domínguez [employer] LAB BLOOD ORDERABLES Teetee l Result Performing Organization Address City/[facility] Co de Phone Number [facility] Department [place] [address] * Oxyhemoglobin, pulmonary artery (07/31/2024 10:35 AM CDT) Oxyhemoglobin, PA 88.9 % Comment: Interpretive Data No reference range established. Current interpretive data was last revised 2019. Blood 07/31/2024 10:3 5 AM CDT 07/31/2024 10:40 AM CDT Selvin Domínguez [employer] LAB BLOOD ORDERABLES Teetee l Result Performing Organization Address [facility] Co de Phone Number [facility] Department [place] [address] * (ABNORMAL) Hemoglobin total, pulmonary artery (07/31/2024 10:35 AM CDT) Hemoglobin total, PA 7.9(L) 13.0 - 17.5 g/dL Blood 07/31/2024 10:3 5 AM CDT 07/31/2024 10:40 AM CDT us Arabella Gary [employer] LAB BLOOD ORDERABLES Fi nal Result Performing Organization Address [facility] Co de Phone Number [facility] [place] [address] * Hemoglobin, plasma (07/31/2024 10:35 AM CDT) Hemoglobin, Plasma <30 <=50 mg/dL Blood 07/31/2024 10:3 5 AM CDT 07/31/2024 10:45 AM CDT Nick Veliz MD LAB BLOOD ORDERABLES Fin al Result Performing Organization Address City/[facility] Co de Phone Number [facility] Department [place] [address] * (ABNORMAL) eGFR (07/31/2024 10:35 AM CDT) [...] ORDERABLES Fin al Result Performing Organization Address City/[facility]/ZIP Co de Phone Number [facility] [place] [address] * Heparin anti factor Xa activity (07/31/2024 [...] MD LAB BLOOD ORDERABLES Fin al Result [facility] Department [place] [address] * (ABNORMAL) Blood gas, arterial (07/31/2024 10:35 AM CDT) pH, Art 7.43 7.35 - 7.45 PCO2, Arterial 31(L) 35 - 45 mmHg [facility] PO2, Arterial 184(H) 83 - 108 mmHg [facility] HCO3 Art (Calculated) 21 20 - 30 mmol/L [facility] BE, art -3 mmol/L [facility] Comment: Interpretive Data No Reference Range Established Current Interpretive Data was last revised on 2017 O2 Sat Art (Measured) 100(H) 90 - 95 % [facility] Blood 07/31/2024 10:3 5 AM CDT 07/31/2024 10:40 AM CDT Selvin Domínguez NP LAB BLOOD ORDERABLES Teetee l Result Performing Organization Address City/[facility]/ZIP Co de Phone Number [facility] [place] [address] * (ABNORMAL) Creatine kinase (CK), total (07/31/2024 10:35 AM CDT) Pathologist [facility] CK 479(H) 40 - 300 Units/L Blood 07/31/2024 10:3 5 AM CDT 07/31/2024 10:45 AM CDT Narrative [facility] - 07/31/2024 11:21 AM CDT Do Not delete for IMPACT trial Nick Veliz MD LAB BLOOD ORDERABLES Fin al Result Performing Organization Address [facility] Co de Phone Number [facility] Department [place] [address] * (ABNORMAL) Comprehensive metabolic panel (07/31/2024 10:35 AM CDT) Pathologist [facility] Sodium 138 135 - 145 mmol/L Potassium, pl 4.8 3.3 - 4.9 mmol/L [facility] Chloride 105 97 - 110 mmol/L [facility] CO2 22 22 - 32 mmol/L [facility] Anion gap 11 2 - 15 mmol/L [facility] BUN 25 6 - 25 mg/dL [facility] Creatinine 1.53(H) 0.80 - 1.30 mg/dL [facility] Glucose 136 70 - 199 mg/dL [facility] Comment: Interpretive Data Fasting glucose [...] 2022. Calcium 9.4 8.5 - 10.3 mg/dL [facility] Bilirubin, total 1.2 0.1 - 1.2 mg/dL [facility] Protein, pl 5.1(L) 6.5 - 8.5 g/dL [facility] Albumin 3.2(L) 3.5 - 5.0 g/dL [facility] Alk phos 33(L) 40 - 130 Units/L [facility] ALT 13 7 - 55 Units/L [facility] AST 96(H) 10 - 50 Units/L [facility] Blood 07/31/2024 10:3 5 AM CDT 07/31/2024 10:45 AM CDT Nick Veliz MD LAB BLOOD ORDERABLES Fin al Result Performing Organization Address City/[facility]/ZIP Co de Phone Number [facility] Department [place] [address] * POCT glucose (07/31/2024 10:33 AM CDT) Glucose, POC 157 70 - 199 mg/dL Blood 07/31/2024 10:3 3 AM CDT 07/31/2024 10:33 AM CDT Nick Veliz MD LAB POCT ORDERABLES - DE VICE Final Result Performing Organization Address [facility]/ZIP Co de Phone Number [facility] Department [place] [address] * Oxyhemoglobin, pulmonary artery (07/31/2024 9:57 AM CDT) Oxyhemoglobin, PA 89.6 % Comment: Interpretive Data No reference range established. Current interpretive data was last revised 2019. Blood 07/31/2024 9:57 AM CDT 07/31/2024 10:00 AM CDT Selvin Domínguez [employer] LAB BLOOD ORDERABLES Teetee l Result Performing Organization Address [facility] Co de Phone Number [facility] [place] [address] * (ABNORMAL) Hemoglobin total, pulmonary artery (07/31/2024 9:57 AM CDT) Hemoglobin total, PA 8.8(L) 13.0 - 17.5 g/dL Blood 07/31/2024 9:57 AM CDT 07/31/2024 10:00 AM CDT Arabella Gary [employer] LAB BLOOD ORDERABLES Fi nal Result Performing Organization Address [facility] de Phone Number [facility] [place] [address] * Potassium, whole blood (07/31/2024 9:57 AM CDT) Pathologist [facility] Potassium, bld 4.5 3.3 - 4.9 mmol/L Blood 07/31/2024 9:57 AM CDT 07/31/2024 10:00 AM CDT Arabella Gary [employer] LAB BLOOD ORDERABLES Fi nal Result Performing Organization Address [facility] [place] [address] * (ABNORMAL) Blood gas, arterial (07/31/2024 9:57 AM CDT) pH, Art 7.42 7.35 - 7.45 PCO2, Arterial 30(L) 35 - 45 mmHg [facility] PO2, Arterial 185(H) 83 - 108 mmHg [facility] HCO3 Art (Calculated) 20 20 - 30 mmol/L [facility] BE, art -4 mmol/L [facility] Comment: Interpretive Data No Reference Range Established Current Interpretive Data was last revised on 2017 O2 Sat Art (Measured) 100(H) 90 - 95 % [facility] Blood 07/31/2024 9:57 AM CDT 07/31/2024 10:00 AM CDT us Selvin Domínguez [employer] LAB BLOOD ORDERABLES Teetee keith Result [facility] Department [place] [address] * Critical Care (07/31/2024 8:58 AM CDT) [...] plan with the ICU team and other medical/loss prevention consultant staff, making frequent assessments and decisions [...] record us Yazmin Alvarado NP IN CLINIC/BEDSIDE [facility]NE MAYES Final Result * XR Chest 1 View [...] left atrial appendage clipping. Right internal jugular [place] catheter tip overlies the main pulmonary artery. [...] left atrial appendage clipping. Right internal jugular [place] catheter tip overlies the main pulmonary artery. [...] signed by: Toyin Centeno M.D. Marilee Sandoval [employer] IMG XR PROCEDURES Final Result * POCT glucose (07/31/2024 8:29 AM CDT) Glucose, POC 128 70 - 199 mg/dL Blood 07/31/2024 8:29 AM CDT 07/31/2024 8:29 AM CDT us Nick Veliz MD LAB POCT ORDERABLES - DE VICE Final Result Performing Organization Address [facility] Phone Number [facility] [place] [address] * POCT glucose (07/31/2024 6:58 AM CDT) Glucose, POC 95 70 - 199 mg/dL Blood 07/31/2024 6:58 AM CDT 07/31/2024 6:58 AM CDT us Nick Veliz MD LAB POCT ORDERABLES - DE VICE Final Result Performing Organization Address [facility] Phone Number [facility] [place] [address] * POCT glucose (07/31/2024 6:04 AM CDT) Glucose, POC 89 70 - 199 mg/dL Blood 07/31/2024 6:04 AM CDT 07/31/2024 6:04 AM CDT us Nick Veliz MD LAB POCT ORDERABLES - DE VICE Final Result Performing Organization Address [facility] [place] [address] * POCT glucose (07/31/2024 5:26 AM CDT) Glucose, POC 105 70 - 199 mg/dL Blood 07/31/2024 5:26 AM CDT 07/31/2024 5:26 AM CDT us Nick Veliz MD LAB POCT ORDERABLES - DE VICE Final Result Performing Organization Address [facility] de Phone Number [facility] [place] [address] * Oxyhemoglobin, pulmonary artery (07/31/2024 5:25 AM CDT) Oxyhemoglobin, PA 62.0 % Comment: Interpretive Data No reference range established. Current interpretive data was last revised 2019. Blood 07/31/2024 5:25 AM CDT 07/31/2024 5:33 AM CDT Selvin Domínguez NP LAB BLOOD ORDERABLES Teetee l Result Performing Organization Address [facility] Co de Phone Number [facility] [place] [address] * (ABNORMAL) Hemoglobin total, pulmonary artery (07/31/2024 5:25 AM CDT) Hemoglobin total, PA 8.7(L) 13.0 - 17.5 g/dL Blood 07/31/2024 5:25 AM CDT 07/31/2024 5:33 AM CDT Arabella Gary [employer] LAB BLOOD ORDERABLES Fi nal Result Performing Organization Address [facility] Co de Phone Number [facility] [place] [address] * (ABNORMAL) Lactate (07/31/2024 5:25 AM CDT) Lactate 2.3(H) 0.7 - 2.0 mmol/L Blood 07/31/2024 5:25 AM CDT 07/31/2024 5:36 AM CDT Selvin Domínguez [employer] LAB BLOOD ORDERABLES Teetee l Result Performing Organization Address [facility] Co de Phone Number [facility] [place] [address] * (ABNORMAL) Blood gas, arterial (07/31/2024 5:25 AM CDT) pH, Art 7.46(H) 7.35 - 7.45 PCO2, Arterial 30(L) 35 - 45 mmHg [facility] PO2, Arterial 170(H) 83 - 108 mmHg [facility] HCO3 Art (Calculated) 22 20 - 30 mmol/L [facility] BE, art -2 mmol/L [facility] Comment: Interpretive Data No Reference Range Established Current Interpretive Data was last revised on 2017 O2 Sat Art (Measured) 100(H) 90 - 95 % [facility] Blood 07/31/2024 5:25 AM CDT 07/31/2024 5:32 AM CDT Selvin Domínguez [employer] LAB BLOOD ORDERABLES Teetee l Result Performing Organization Address [facility] Co de Phone Number [facility] [place] [address] * (ABNORMAL) POC Blood Gas and Chemistries, Arterial - (07/31/2024 4:15 AM CDT) pH, Art POC 7.42 7.35 - 7.45 pCO2, Art POC 33(L) 35 - 45 mmHg [facility] pO2, Art POC 173(H) 83 - 108 mmHg [facility] Na, POC 136 135 - 145 mmol/L [facility] K POC 4.5 3.3 - 4.9 mmol/L [facility] Comment: Interpretive Data Not all point of care methods assess for hemolysis. Confirm with instrument and retest K+ if not consistent with clinical signs and symptoms. Current Interpretive Data was last revised on 2023. Cl, POC 108 97 - 110 mmol/L [facility] Ionized Ca, POC 5.03 4.50 - 5.10 mg/dL [facility] Glucose, POC 126 70 - 199 mg/dL [facility] Lactate POC 2.6(H) 0.7 - 2.0 mmol/L [facility] SO2 (vivian) arterial 98(H) 90 - 95 % [facility] Base excess, POC -2.6 mmol/L [facility] HCO3, Art POC 21 20 - 30 mmol/L [facility] Hct, POC 27.0(L) 41.4 - 51.6 % [facility] Total Hb, POC 9.0(L) 13.8 - 17.2 g/dL [facility] Blood 07/31/2024 4:15 AM CDT 07/31/2024 4:15 AM CDT Nick Veliz MD LAB POCT ORDERABLES - DE VICE Final Result Performing Organization Address City/[facility]/ZIP Co de Phone Number [facility] Department [place] [address] * Calcium, ionized, whole blood (07/31/2024 3:54 AM CDT) Ca, ionized, bld 4.75 4.50 - 5.10 mg/dL Blood 07/31/2024 3:54 AM CDT 07/31/2024 4:00 AM CDT Arabella Gary NP LAB BLOOD ORDERABLES Fi nal Result [facility] Department [place] [address] * Oxyhemoglobin, pulmonary artery (07/31/2024 3:48 AM CDT) Oxyhemoglobin, PA 68.1 % Comment: Interpretive Data No reference range established. Current interpretive data was last revised 2019. Blood 07/31/2024 3:48 AM CDT 07/31/2024 4:00 AM CDT Selvin Domínguez [employer] LAB BLOOD ORDERABLES Teetee l Result Performing Organization Address City/[facility] Co de Phone Number [facility] [place] [address] * (ABNORMAL) Lactate (07/31/2024 3:48 AM CDT) [facility] Lactate 3.0(H) 0.7 - 2.0 mmol/L Blood 07/31/2024 3:48 AM CDT 07/31/2024 4:03 AM CDT Selvin Domínguez [employer] LAB BLOOD ORDERABLES Teetee l Result Performing Organization Address [facility] Co de Phone Number [facility] [place] [address] * Potassium, whole blood (07/31/2024 3:48 AM CDT) [facility] Potassium, bld 4.3 3.3 - 4.9 mmol/L Blood 07/31/2024 3:48 AM CDT 07/31/2024 4:00 AM CDT Arabella Gary [employer] LAB BLOOD ORDERABLES Ed ited Result - Final Performing Organization Address [facility] Co de Phone Number [facility] [place] [address] * (ABNORMAL) CBC without differential (07/31/2024 3:48 AM CDT) [facility] WBC 11.63(H) 3.80 - 9.90 K/cumm Hgb 8.9(L) 13.0 - 17.5 g/dL [facility] Hct 26.0(L) 38.9 - 50.3 % [facility] Plt 114(L) 150 - 400 K/cumm [facility] MPV 10.8 9.1 - 12.3 fL [facility] RBC 2.64(L) 4.30 - 5.80 M/cumm [facility] MCV 98.5(H) 81.3 - 96.4 fL [facility] Comment:spoke to Kate chase RN MCV delta due to apparent blood transfusion. MCH 33.7(H) 27.1 - 33.3 pg [facility] MCHC 34.2 32.3 - 35.7 g/dL [facility] RDW CV 15.0(H) 11.1 - 14.9 % [facility] RDW SD 54.6(H) 35.7 - 48.1 fL [facility] NRBC abs 0.00 0.00 - 0.01 K/cumm [facility] Blood 07/31/2024 3:48 AM CDT 07/31/2024 4:03 AM CDT us Arabella Gary [employer] LAB BLOOD ORDERABLES Fi nal Result Performing Organization Address [facility] de Phone Number [facility] Department [place] [address] * (ABNORMAL) Blood gas, arterial (07/31/2024 3:48 AM CDT) pH, Art 7.42 7.35 - 7.45 PCO2, Arterial 33(L) 35 - 45 mmHg [facility] PO2, Arterial 171(H) 83 - 108 mmHg [facility] HCO3 Art (Calculated) 22 20 - 30 mmol/L [facility] BE, art -2 mmol/L [facility] Comment: Interpretive Data No Reference Range Established Current Interpretive Data was last revised on 2017 O2 Sat Art (Measured) 100(H) 90 - 95 % [facility] Blood 07/31/2024 3:48 AM CDT 07/31/2024 4:00 AM CDT Selvin Domínguez [employer] LAB BLOOD ORDERABLES Teetee l Result Performing Organization Address [facility] Co de Phone Number [facility] [place] [address] * POCT glucose (07/31/2024 3:44 AM CDT) Glucose, POC 129 70 - 199 mg/dL Blood 07/31/2024 3:44 AM CDT 07/31/2024 3:44 AM CDT Nick Veliz MD LAB POCT ORDERABLES - [place] [address] * Transfuse RBC (07/31/2024 3:37 AM CDT) Blood Arabella Gary NP BLOOD TRANSFUSION ORDER VAHID Final Result [facility] [place] [address] * POCT glucose (07/31/2024 2:11 AM CDT) Glucose, POC 151 70 - 199 mg/dL Blood 07/31/2024 2:11 AM CDT 07/31/2024 2:11 AM CDT Nick Veliz MD LAB POCT ORDERABLES - [place] [address] * POCT glucose (07/31/2024 1:08 AM CDT) Glucose, POC 161 70 - 199 mg/dL Blood 07/31/2024 1:08 AM CDT 07/31/2024 1:08 AM CDT Nick Veliz MD LAB POCT ORDERABLES - DE VICE Final Result Performing Organization Address [facility] Co de Phone Number [facility] [place] [address] * Oxyhemoglobin, central venous (07/30/2024 11:50 PM CDT) Oxyhemoglobin, CV 78.4 % Comment: Interpretive Data No reference range established. Current interpretive data was last revised 2019. Blood 07/30/2024 11:5 0 PM CDT 07/30/2024 11:56 PM CDT Selvin Domínguez NP LAB BLOOD ORDERABLES Teetee l Result Performing Organization Address [facility] Co de Phone Number [facility] [place] [address] * Oxyhemoglobin, pulmonary artery (07/30/2024 11:50 PM CDT) Oxyhemoglobin, PA 73.1 % Comment: Interpretive Data No reference range established. Current interpretive data was last revised 2019. Blood 07/30/2024 11:5 0 PM CDT 07/30/2024 11:57 PM CDT Selvin Domínguez [employer] LAB BLOOD ORDERABLES Teetee l Result Performing Organization Address [facility] Co de Phone Number [facility] [place] [address] * (ABNORMAL) Lactate (07/30/2024 11:50 PM CDT) Lactate 6.4(C) 0.7 - 2.0 mmol/L Blood 07/30/2024 11:5 0 PM CDT 07/31/2024 12:19 AM CDT us Marilee Sandoval [employer] LAB BLOOD ORDERABLES Fin al Result [facility] Department [place] [address] * Potassium, whole blood (07/30/2024 11:50 PM CDT) Potassium, bld 4.3 3.3 - 4.9 mmol/L Blood 07/30/2024 11:5 0 PM CDT 07/30/2024 11:56 PM CDT Arabella Gary [employer] LAB BLOOD ORDERABLES Ed ited Result - Final Performing Organization Address [facility] de Phone Number [facility] [place] [address] * (ABNORMAL) eGFR (07/30/2024 11:50 PM CDT) eGFR 54(L) >=60 mL/min/1. 73 m2 Comment: [...] CDT 07/31/2024 12:20 AM CDT Selvin Domínguez [employer] LAB BLOOD ORDERABLES Teetee l Result Performing Organization Address [facility] Co de Phone Number [facility] [place] [address] * Critical Result Callback Chemistry (07/30/2024 11:50 PM CDT) Date Notified [id number] Time Notified 47 [facility] TestName Lactate MARGI SANTA Called/Read Back Kimparas [facility] Credentials RN [facility] Called By awag [facility] Blood 07/30/2024 11:5 0 PM CDT 07/31/2024 12:19 AM CDT Marilee Sandoval [employer] LAB BLOOD ORDERABLES Fin al Result Performing Organization Address [facility] Co de Phone Number [facility] Department [place] [address] * (ABNORMAL) CBC without differential (07/30/2024 11:50 PM CDT) [facility] WBC 14.50(H) 3.80 - 9.90 K/cumm Hgb 7.8(L) 13.0 - 17.5 g/dL [facility] Hct 23.0(L) 38.9 - 50.3 % [facility] Plt 114(L) 150 - 400 K/cumm [facility] MPV 11.0 9.1 - 12.3 fL [facility] RBC 2.21(L) 4.30 - 5.80 M/cumm [facility] MCV 104.1(H) 81.3 - 96.4 fL [facility] MCH 35.3(H) 27.1 - 33.3 pg [facility] MCHC 33.9 32.3 - 35.7 g/dL [facility] RDW CV 13.4 11.1 - 14.9 % [facility] RDW SD 51.2(H) 35.7 - 48.1 fL [facility] NRBC abs 0.00 0.00 - 0.01 K/cumm [facility] Blood 07/30/2024 11:5 0 PM CDT 07/31/2024 12:19 AM CDT Selvin Domínguez [employer] LAB BLOOD ORDERABLES Teetee l Result Performing Organization Address City/[facility] Co de Phone Number [facility] [place] [address] * Phosphorus (07/30/2024 11:50 PM CDT) Pathologist [facility] Phosphorus, pl 3.0 2.3 - 4.5 mg/dL Blood 07/30/2024 11:5 0 PM CDT 07/31/2024 12:09 AM CDT Selvin Domínguez [employer] LAB BLOOD ORDERABLES Teetee l Result Performing Organization Address [facility] Co de Phone Number [facility] [place] [address] * Magnesium (07/30/2024 11:50 PM CDT) Pathologist [facility] Magnesium 2.4 1.4 - 2.5 mg/dL Blood 07/30/2024 11:5 0 PM CDT 07/31/2024 12:09 AM CDT Selvin Domínguez [employer] LAB BLOOD ORDERABLES Teetee l Result Performing Organization Address City/[facility] [place] [address] * (ABNORMAL) Lactate dehydrogenase (LD) (07/30/2024 11:50 PM CDT) Pathologist [facility] Lactate dehydrogenase (LDH) 505(H) 100 - 250 Units/L Blood 07/30/2024 11:5 0 PM CDT 07/31/2024 12:20 AM CDT Nick Veliz MD LAB BLOOD ORDERABLES Fin al Result Performing Organization Address [facility] de Phone Number [facility] [place] [address] * (ABNORMAL) Blood gas, arterial (07/30/2024 11:50 PM CDT) pH, Art 7.36 7.35 - 7.45 PCO2, Arterial 34(L) 35 - 45 mmHg [facility] PO2, Arterial 166(H) 83 - 108 mmHg [facility] HCO3 Art (Calculated) 20 20 - 30 mmol/L [facility] BE, art -6 mmol/L [facility] Comment: Interpretive Data No Reference Range Established Current Interpretive Data was last revised on 2017 O2 Sat Art (Measured) 100(H) 90 - 95 % [facility] Blood 07/30/2024 11:5 0 PM CDT 07/30/2024 11:56 PM CDT Selvin Domínguez NP LAB BLOOD ORDERABLES Teetee keith Result Performing Organization Address [facility] de Phone Number [facility] [place] [address] * (ABNORMAL) Hepatic function panel (07/30/2024 11:50 PM CDT) Bilirubin, total 0.9 0.1 - 1.2 mg/dL Bilirubin, direct 0.4(H) 0.1 - 0.3 mg/dL [facility] Protein, pl 5.2(L) 6.5 - 8.5 g/dL [facility] Albumin 3.6 3.5 - 5.0 g/dL [facility] Alk phos 31(L) 40 - 130 Units/L [facility] ALT 18 7 - 55 Units/L [facility] AST 134(H) 10 - 50 Units/L [facility] Blood 07/30/2024 11:5 0 PM CDT 07/31/2024 12:20 AM CDT Nick Veliz MD LAB BLOOD ORDERABLES Fin al Result [facility] Department [place] [address] * (ABNORMAL) Basic metabolic panel (07/30/2024 11:50 PM CDT) [facility] Sodium 138 135 - 145 mmol/L Potassium, pl 4.4 3.3 - 4.9 mmol/L [facility] Chloride 105 97 - 110 mmol/L [facility] CO2 21(L) 22 - 32 mmol/L [facility] Anion gap 12 2 - 15 mmol/L [facility] BUN 24 6 - 25 mg/dL [facility] Creatinine 1.38(H) 0.80 - 1.30 mg/dL [facility] Glucose 166 70 - 199 mg/dL [facility] Comment: Interpretive Data Fasting glucose [...] 2022. Calcium 9.0 8.5 - 10.3 mg/dL [facility] Blood 07/30/2024 11:5 0 PM CDT 07/31/2024 12:09 AM CDT Selvin Domínguez NP LAB BLOOD ORDERABLES Teetee l Result [facility] [place] [address] * POCT glucose (07/30/2024 11:49 PM CDT) Glucose, POC 167 70 - 199 mg/dL Blood 07/30/2024 11:4 9 PM CDT 07/30/2024 11:49 PM CDT Nick Veliz MD LAB POCT ORDERABLES - DE VICE Final Result Performing Organization Address City/[facility]/[place] [address] * POCT glucose (07/30/2024 11:04 PM CDT) Glucose, POC 147 70 - 199 mg/dL Blood 07/30/2024 11:0 4 PM CDT 07/30/2024 11:04 PM CDT Result [facility] Nick Veliz MD LAB POCT ORDERABLES - DE VICE Final Result Performing Organization Address [facility]/[place] [address] * Oxyhemoglobin, pulmonary artery (07/30/2024 9:42 PM CDT) Pathologist [facility] [place] Oxyhemoglobin, PA 76.6 % Comment: Interpretive Data No reference range established. Current interpretive data was last revised 2019. Blood 07/30/2024 9:42 PM CDT 07/30/2024 9:48 PM CDT Selvin Domínguez NP LAB BLOOD ORDERAB[place] [address] * (ABNORMAL) Hemoglobin total, pulmonary artery (07/30/2024 9:42 PM CDT) Hemoglobin total, PA 7.9(L) 13.0 - 17.5 g/dL Blood 07/30/2024 9:42 PM CDT 07/30/2024 9:48 PM CDT Arabella Gary [employer] LAB BLOOD ORDERABLES Fi nal Result Performing Organization Address [facility] Co de Phone Number [facility] Department [place] [address] * (ABNORMAL) Blood gas, arterial (07/30/2024 9:42 PM CDT) pH, Art 7.37 7.35 - 7.45 PCO2, Arterial 32(L) 35 - 45 mmHg [facility] PO2, Arterial 158(H) 83 - 108 mmHg [facility] HCO3 Art (Calculated) 19(L) 20 - 30 mmol/L [facility] BE, art -6 mmol/L [facility] Comment: Interpretive Data No Reference Range Established Current Interpretive Data was last revised on 2017 O2 Sat Art (Measured) 100(H) 90 - 95 % [facility] Blood 07/30/2024 9:42 PM CDT 07/30/2024 9:47 PM CDT Selvin Domínguez [employer] LAB BLOOD ORDERABLES Teetee l Result Performing Organization Address [facility] Co de Phone Number [facility] Department [place] [address] * (ABNORMAL) POC Blood Gas and Chemistries, Arterial - (07/30/2024 9:30 PM CDT) pH, Art POC 7.35 7.35 - 7.45 pCO2, Art POC 33(L) 35 - 45 mmHg [facility] pO2, Art POC 165(H) 83 - 108 mmHg [facility] Na, POC 137 135 - 145 mmol/L [facility] K POC 3.8 3.3 - 4.9 mmol/L [facility] Comment: Interpretive Data Not all point of care methods assess for hemolysis. Confirm with instrument and retest K+ if not consistent with clinical signs and symptoms. Current Interpretive Data was last revised on 2023. Cl, POC 107 97 - 110 mmol/L [facility] Ionized Ca, POC 5.14(H) 4.50 - 5.10 mg/dL [facility] Glucose, POC 171 70 - 199 mg/dL [facility] Lactate POC 6.3(C) 0.7 - 2.0 mmol/L [facility] SO2 (vivian) arterial 100(H) 90 - 95 % [facility] Base excess, POC -6.7 mmol/L [facility] HCO3, Art POC 18(L) 20 - 30 mmol/L [facility] Hct, POC 27.0(L) 41.4 - 51.6 % [facility] Total Hb, POC 9.1(L) 13.8 - 17.2 g/dL [facility] Blood 07/30/2024 9:30 PM CDT 07/30/2024 9:30 PM CDT Nick Veliz MD LAB POCT ORDERABLES - DE VICE Final Result Performing Organization Address [facility]/ZIP Co de Phone Number [facility] [place] [address] * POCT glucose (07/30/2024 9:09 PM CDT) [facility] Glucose, POC 180 70 - 199 mg/dL Blood 07/30/2024 9:09 PM CDT 07/30/2024 9:09 PM CDT us Nick Veliz MD LAB POCT ORDERABLES - DE VICE Final Result Performing Organization Address City/[facility]/ZIP Co de Phone Number [facility] [place] [address] * Transfuse RBC (07/30/2024 8:25 PM CDT) Blood Marilee Sandoval [employer] BLOOD TRANSFUSION ORDERA BLES Final Result Performing Organization Address [facility] [place] [address] * Potassium, whole blood (07/30/2024 8:17 PM CDT) Potassium, bld 3.9 3.3 - 4.9 mmol/L Blood 07/30/2024 8:17 PM CDT 07/30/2024 8:22 PM CDT Arabella Gary NP LAB BLOOD ORDERABLES Fi nal Result Performing Organization Address [facility] [place] [address] * POCT glucose (07/30/2024 8:16 PM CDT) Glucose, POC 187 70 - 199 mg/dL Blood 07/30/2024 8:16 PM CDT 07/30/2024 8:16 PM CDT Nick Veliz MD LAB POCT ORDERABLES - DE VICE Final Result Performing Organization Address [facility] [place] [address] * Hemoglobin, plasma (07/30/2024 7:20 PM CDT) Hemoglobin, Plasma 30 <=50 mg/dL Blood 07/30/2024 7:20 PM CDT 07/30/2024 7:39 PM CDT Marilee Sandoval NP LAB BLOOD ORDERABLES Fin al Result [facility] Department [place] [address] * Critical Care (07/30/2024 6:57 PM CDT) [...] plan with the ICU team and other medical/loss prevention consultant staff, making frequent assessments and decisions [...] in the medical record us Arabella Gary [employer] IN CLINIC/BEDSIDE ORDER VAHID Final Result * POCT glucose (07/30/2024 6:56 PM CDT) Glucose, POC 185 70 - 199 mg/dL Blood 07/30/2024 6:56 PM CDT 07/30/2024 6:56 PM CDT Nick Veliz MD LAB POCT ORDERABLES - DE VICE Final Result [facility] Department [place] [address] * Prepare RBC: 1 Units (07/30/2024 6:13 PM CDT) [facility] Product code [id number] Unit Number [id number] [facility] Product Blood Type APOS [facility] Dispense Status PRESUMED TRANSFUSED [facility] Blood 07/30/2024 6:13 PM CDT 07/30/2024 6:13 PM CDT Narrative [facility] - 07/31/2024 4:00 PM CDT Are special requirements needed? (All products are leukoreduced and CMV- safe)- >No Date required:-[id number] LRRBC # of [id number] Reasons:-Cardiovascular disease, Hgb <8 g/dL} Marilee Sandoval NP BLOOD BANK PRODUCT ORDER VAHID Final Result Performing Organization Address [facility]/ZIP Co de Phone Number [facility] Department [place] [address] * POCT glucose (07/30/2024 6:08 PM CDT) [facility] Glucose, POC 165 70 - 199 mg/dL Blood 07/30/2024 6:08 PM CDT 07/30/2024 6:08 PM CDT Nick Veliz MD LAB POCT ORDERABLES - DE VICE Final Result Performing Organization Address City/[facility]/ZIP Co de Phone Number [facility] [place] [address] * XR Chest 1 View (07/30/2024 6:00 [...] it. Electronically signed by: Maury Jaeger M.D. [facility] Pippa Veliz MD IMG XR PROCEDURES Final [...] clip. Aortic valve replacement. Median sternotomy wires. [place] catheter position with tip in the main pulmonary artery. Epicardial pacing wires. Pericardial and mediastinal drains. Bilateral thoracostomy tubes. Dictated by: Fernanda eLvi M.D. The radiology attending physician has personally [...] clip. Aortic valve replacement. Median sternotomy wires. [place] catheter position with tip in the main pulmonary artery. Epicardial pacing wires. Pericardial and mediastinal drains. Bilateral thoracostomy tubes. Dictated by: Fernanda Levi M.D. The radiology attending physician has personally reviewed this study, and had reviewed and/or edited this written report and agrees with it. Electronically signed by: Daja Dozier M.D. Selvin Domínguez [employer] IMG XR PROCEDURES Final R esult * [...] NP LAB BLOOD ORDERABLES Teetee keith Result [facility] Department [place] [address] * (ABNORMAL) CBC without differential (07/30/2024 5:36 PM CDT) WBC 21.35(H) 3.80 - 9.90 K/cumm Hgb 7.8(L) 13.0 - 17.5 g/dL [facility] Comment:Hemoglobin delta due to apparent blood transfusion. Hct 23.6(L) 38.9 - 50.3 % [facility] Plt 129(L) 150 - 400 K/cumm [facility] Comment:No clot detected in sample. MPV 10.9 9.1 - 12.3 fL [facility] RBC 2.19(L) 4.30 - 5.80 M/cumm [facility] MCV 107.8(H) 81.3 - 96.4 fL [facility] MCH 35.6(H) 27.1 - 33.3 pg [facility] MCHC 33.1 32.3 - 35.7 g/dL [facility] RDW CV 12.3 11.1 - 14.9 % [facility] RDW SD 48.5(H) 35.7 - 48.1 fL [facility] NRBC abs 0.00 0.00 - 0.01 K/cumm [facility] Blood 07/30/2024 5:36 PM CDT 07/30/2024 5:55 PM CDT Selvin Domínguez [employer] LAB BLOOD ORDERABLES Teetee l Result Performing Organization Address [facility] Co de Phone Number [facility] [place] [address] * Type and screen (07/30/2024 5:36 PM CDT) ABO Rh A Positive Kumar, indirect Negative [facility] Blood 07/30/2024 5:36 PM CDT 07/30/2024 5:56 PM CDT Narrative [facility] - 07/30/2024 7:37 PM CDT Has the patient had Daratumumab or Isatuximab in the past 6 months?->Unknown Nick Veliz MD LAB BLOOD BANK TEST ORDE GERBER Final Result Performing Organization Address [facility] Co de Phone Number [facility] Department [place] [address] * (ABNORMAL) Phosphorus (07/30/2024 5:36 PM CDT) Phosphorus, pl 4.6(H) 2.3 - 4.5 mg/dL Blood 07/30/2024 5:36 PM CDT 07/30/2024 5:43 PM CDT Selvin Domínguez [employer] LAB BLOOD ORDERABLES Teetee l Result Performing Organization Address City/State/[facility] Co de Phone Number [facility] Department [place] [address] * Magnesium (07/30/2024 5:36 PM CDT) [facility] Magnesium 2.5 1.4 - 2.5 mg/dL Blood 07/30/2024 5:36 PM CDT 07/30/2024 5:43 PM CDT Selvin Domínguez NP LAB BLOOD ORDERABLES Teetee l Result Performing Organization Address [facility] Co de Phone Number [facility] Department [place] [address] * (ABNORMAL) Lactate dehydrogenase (LD) (07/30/2024 5:36 PM CDT) [facility] Lactate dehydrogenase (LDH) 550(H) 100 - 250 Units/L Blood 07/30/2024 5:36 PM CDT 07/30/2024 5:43 PM CDT Nick Veliz MD LAB BLOOD ORDERABLES Fin al Result Performing Organization Address [facility] Co de Phone Number [facility] Department [place] [address] * (ABNORMAL) Hepatic function panel (07/30/2024 5:36 PM CDT) [facility] Bilirubin, total 1.5(H) 0.1 - 1.2 mg/dL Bilirubin, direct 0.6(H) 0.1 - 0.3 mg/dL [facility] Protein, pl 5.5(L) 6.5 - 8.5 g/dL [facility] Albumin 3.4(L) 3.5 - 5.0 g/dL [facility] Alk phos 33(L) 40 - 130 Units/L [facility] ALT 22 7 - 55 Units/L [facility] AST 161(H) 10 - 50 Units/L [facility] Comment:Reviewed Blood 07/30/2024 5:36 PM CDT 07/30/2024 5:43 PM CDT Nick Veliz MD LAB BLOOD ORDERABLES Fin al Result Performing Organization Address City/[facility]/ZIP Co de Phone Number [facility] Department [place] [address] * (ABNORMAL) Basic metabolic panel (07/30/2024 5:36 PM CDT) [facility] Sodium 137 135 - 145 mmol/L Potassium, pl 3.9 3.3 - 4.9 mmol/L [facility] Chloride 102 97 - 110 mmol/L [facility] CO2 22 22 - 32 mmol/L [facility] Anion gap 13 2 - 15 mmol/L [facility] BUN 22 6 - 25 mg/dL [facility] Creatinine 1.36(H) 0.80 - 1.30 mg/dL [facility] Glucose 180 70 - 199 mg/dL [facility] Comment: Interpretive Data Fasting glucose [...] 2022. Calcium 9.1 8.5 - 10.3 mg/dL [facility] Blood 07/30/2024 5:36 PM CDT 07/30/2024 5:43 PM CDT Selvin Domínguez NP LAB BLOOD ORDERABLES Teetee l Result Performing Organization Address [facility]/ZIP Co de Phone Number [facility] [place] [address] * (ABNORMAL) POC Blood Gas and Chemistries, Arterial - (07/30/2024 5:20 PM CDT) pH, Art POC 7.32(L) 7.35 - 7.45 pCO2, Art POC 40 35 - 45 mmHg [facility] pO2, Art POC 303(H) 83 - 108 mmHg [facility] Na, POC 137 135 - 145 mmol/L [facility] K POC 3.8 3.3 - 4.9 mmol/L [facility] Comment: Interpretive Data Not all point of care methods assess for hemolysis. Confirm with instrument and retest K+ if not consistent with clinical signs and symptoms. Current Interpretive Data was last revised on 2023. Cl, POC 106 97 - 110 mmol/L [facility] Ionized Ca, POC 4.81 4.50 - 5.10 mg/dL [facility] Glucose, POC 172 70 - 199 mg/dL [facility] Lactate POC 4.0(C) 0.7 - 2.0 mmol/L [facility] SO2 (vivian) arterial 100(H) 90 - 95 % [facility] Base excess, POC -5.1 mmol/L [facility] HCO3, Art POC 21 20 - 30 mmol/L [facility] Hct, POC 26.0(L) 41.4 - 51.6 % [facility] Total Hb, POC 8.5(L) 13.8 - 17.2 g/dL [facility] Blood 07/30/2024 5:20 PM CDT 07/30/2024 5:20 PM CDT us Nick Veliz MD LAB POCT ORDERABLES - DE VICE Final Result [facility] Department [place] [address] * aPTT (07/30/2024 5:09 PM CDT) aPTT [...] ORDERABLES Teetee l Result Performing Organization Address [facility] de Phone Number [facility] [place] [address] * (ABNORMAL) Protime-INR (07/30/2024 5:09 PM CDT) PT 16.5(H) 9.7 - 13.0 sec INR 1.51(H) 0.90 - 1.20 [facility] Comment: Interpretive data Oral anticoagulant [...] ORDERABLES Teetee l Result Performing Organization Address [facility] de Phone Number [facility] Department [place] [address] * Critical Care (07/30/2024 5:00 PM CDT) Narrative Rebecca Alston MD - 07/30/2024 5:00 PM CDT Rebecca Alston MD 07/31/2024 11:07 AM Critical Care Performed by: Marilee Sandoval NP Authorized by: Marilee Sandoval NP CRITICAL CARE: Team: [facility] Shift: AM Level of Billing: Critical [...] plan with the ICU team and other medical/loss prevention consultant staff, making frequent assessments and decisions [...] spent time documenting in the medical record Marilee Sandoval NP IN CLINIC/BEDSIDE ORDERA BLES Final Result * ABLATE ADDTL ARRHYTHMIA ATRIA OR VENT (07/30/2024 4:56 PM CDT) Anatomical Region Laterality Modality X-Ray Angiograph y Narrative 07/30/2024 5:30 PM CDT Please see OpNote for result. Nick Veliz MD CV ELECTROPHYSIOLOGY PRO CS Final Result * Transfuse plasma (07/30/2024 4:49 PM CDT) Blood Abhi Martinez MD BLOOD TRANSFUSION OR DERABLES Final Result [facility] [place] [address] * Transfuse platelets (07/30/2024 4:47 PM CDT) Blood Abhi Martinez MD BLOOD TRANSFUSION OR DERABLES Final Result Performing Organization Address City/[facility]/ZIP Co de Phone Number [facility] [place] [address] * (ABNORMAL) POCT prothrombin time (07/30/2024 4:30 PM CDT) PT, POC 28.1(H) 11.7 - 16.6 sec INR, POC 2.2(H) 0.9 - 1.2 [facility] Blood 07/30/2024 4:30 PM CDT 07/30/2024 4:30 PM CDT Result [facility] Nick Veliz MD LAB POCT ORDERABLES - DE VICE Final Result Performing Organization Address City/[facility]/ZIP Co de Phone Number [facility] [place] [address] * (ABNORMAL) POCT Partial thromboplastin time (PTT) (07/30/2024 4:30 PM CDT) Pathologist [facility] APTT, POC 48.8(H) 32.5 - 46.1 sec Blood 07/30/2024 4:30 PM CDT 07/30/2024 4:30 PM CDT Result [facility] Nick Veliz MD LAB POCT ORDERABLES - DE VICE Final Result Performing Organization Address City/[facility]/ZIP Co de Phone Number [facility] [place] [address] * (ABNORMAL) POCT hemoglobin, hematocrit and platelet count (07/30/2024 4:29 PM CDT) Hgb, POC 8.7(L) 13.0 - 17.5 g/dL Hematocrit POC 26.7(L) 38.9 - 50.3 % [facility] Platelet POC 128(L) 150 - 400 K/cumm [facility] Blood 07/30/2024 4:29 PM CDT 07/30/2024 4:29 PM CDT Nick Veliz MD LAB POCT ORDERABLES - DE VICE Final Result Performing Organization Address City/[facility] Co de Phone Number [facility] [place] [address] * Prepare platelets: 1 Units (07/30/2024 4:26 PM CDT) Product code [id number] Unit Number [id number] [facility] Product Blood Type APOS [facility] Dispense Status PRESUMED TRANSFUSED [facility] Blood Venous blood specimen / Unknown 07/30/2024 4:26 PM CDT 07/30/2024 4:26 PM CDT Narrative [facility] - 07/31/2024 8:02 AM CDT Specify Procedure:->cardiac surgery Are special requirements needed? (all products are leukoreduced)->No Date required:-[id number] PLT # of Units:-1-Units Reasons:-Hold for procedure (specify procedure)} Abhi Martinez MD BLOOD BANK PRODUCT O RDERABLES Final Result Performing Organization Address City/[facility] Co de Phone Number [facility] Department [place] [address] * Prepare plasma: 1 Units (07/30/2024 4:26 PM CDT) Product code [id number] Unit Number [id number] [facility] Product Blood Type APOS [facility] Dispense Status PRESUMED TRANSFUSED [facility] Blood Venous blood specimen / Unknown 07/30/2024 4:26 PM CDT 07/30/2024 4:26 PM CDT Narrative [facility] - 07/31/2024 8:02 AM CDT Date required:-[id number] FFP # of Units:-1-Units Reasons:-Immediate need for surgical intervention Abhi Martinez MD BLOOD BANK PRODUCT O RDERABLES Final Result Performing Organization Address City/[facility] Co de Phone Number [facility] Department [place] [address] * POCT glucose (07/30/2024 3:51 PM CDT) Glucose, POC 185 70 - 199 mg/dL Blood 07/30/2024 3:51 PM CDT 07/30/2024 3:51 PM CDT Nick Veliz MD LAB POCT ORDERABLES - DE VICE Final Result Performing Organization Address City/[facility]/ZIP Co de Phone Number [facility] Department [place] [address] * (ABNORMAL) POC Blood Gas and Chemistries, Arterial - (07/30/2024 3:51 PM CDT) [facility] pH, Art POC 7.29(L) 7.35 - 7.45 pCO2, Art POC 42 35 - 45 mmHg [facility] pO2, Art POC 329(H) 83 - 108 mmHg [facility] Na, POC 136 135 - 145 mmol/L [facility] K POC 3.8 3.3 - 4.9 mmol/L [facility] Comment: Interpretive Data Not all point of care methods assess for hemolysis. Confirm with instrument and retest K+ if not consistent with clinical signs and symptoms. Current Interpretive Data was last revised on 2023. Cl, POC 109 97 - 110 mmol/L [facility] Ionized Ca, POC 4.51 4.50 - 5.10 mg/dL [facility] Glucose, POC Incalculable 70 - 199 mg/dL [facility] Lactate POC 3.1(H) 0.7 - 2.0 mmol/L [facility] SO2 (vivian) arterial 100(H) 90 - 95 % [facility] Base excess, POC -6.0 mmol/L [facility] HCO3, Art POC 20 20 - 30 mmol/L [facility] Hct, POC 29.0(L) 41.4 - 51.6 % [facility] Total Hb, POC 9.8(L) 13.8 - 17.2 g/dL [facility] Blood 07/30/2024 3:51 PM CDT 07/30/2024 3:51 PM CDT Nick Veliz MD LAB POCT ORDERABLES - DE VICE Final Result Performing Organization Address [facility] Co de Phone Number [facility] [place] [address] * Transfuse cryoprecipitate (pooled units) (07/30/2024 3:35 PM CDT) Blood Abhi Martinez MD BLOOD TRANSFUSION OR DERABLES Final Result Performing Organization Address [facility] Co de Phone Number [facility] [place] [address] * Transfuse cryoprecipitate (pooled units) (07/30/2024 3:35 PM CDT) Blood Abhi Martinez MD BLOOD TRANSFUSION OR DERABLES Final Result Performing Organization Address [facility] Co de Phone Number [facility] [place] [address] * Prepare cryoprecipitate (pooled units): 2 Units (07/30/2024 3:11 PM CDT) [facility] Product code [id number] Unit Number [id number] [facility] Product Blood Type APOS [facility] Dispense Status PRESUMED TRANSFUSED [facility] Product code [id number] [facility] Unit Number [id number] [facility] Product Blood Type APOS [facility] Dispense Status PRESUMED TRANSFUSED [facility] Blood Venous blood specimen / Unknown 07/30/2024 3:11 PM CDT 07/30/2024 3:11 PM CDT Narrative [facility] - 07/31/2024 8:02 AM CDT Other indication->post bypass Cryo # of [id number] Reasons:-Other (Specify)} Abhi Martinez MD BLOOD BANK PRODUCT O RDERABLES Final Result [facility] Department [place] [address] * (ABNORMAL) POC Blood Gas and Chemistries, Arterial - (07/30/2024 2:56 PM CDT) pH, Art POC 7.32(L) 7.35 - 7.45 pCO2, Art POC 40 35 - 45 mmHg [facility] pO2, Art POC 430(H) 83 - 108 mmHg [facility] Na, POC 135 135 - 145 mmol/L [facility] K POC 3.9 3.3 - 4.9 mmol/L [facility] Comment: Interpretive Data Not all point of care methods assess for hemolysis. Confirm with instrument and retest K+ if not consistent with clinical signs and symptoms. Current Interpretive Data was last revised on 2023. Cl, POC 108 97 - 110 mmol/L [facility] Ionized Ca, POC 4.70 4.50 - 5.10 mg/dL [facility] Glucose, POC Incalculable 70 - 199 mg/dL [facility] Lactate POC 2.9(H) 0.7 - 2.0 mmol/L [facility] SO2 (vivian) arterial 100(H) 90 - 95 % [facility] Base excess, POC -5.1 mmol/L [facility] HCO3, Art POC 21 20 - 30 mmol/L [facility] Hct, POC 33.0(L) 41.4 - 51.6 % [facility] Total Hb, POC 10.9(L) 13.8 - 17.2 g/dL [facility] Blood 07/30/2024 2:56 PM CDT 07/30/2024 2:56 PM CDT Nick Veliz MD LAB POCT ORDERABLES - DE VICE Final Result Performing Organization Address [facility] Co de Phone Number [facility] [place] [address] * (ABNORMAL) POCT prothrombin time (07/30/2024 2:27 PM CDT) PT, POC 34.3(H) 11.7 - 16.6 sec INR, POC 2.6(H) 0.9 - 1.2 [facility] Blood 07/30/2024 2:27 PM CDT 07/30/2024 2:27 PM CDT Nick Veliz MD LAB POCT ORDERABLES - DE VICE Final Result Performing Organization Address [facility] [place] [address] * (ABNORMAL) POCT heparin/ACT CPB (07/30/2024 2:26 PM CDT) Heparin POC 0.0 units/mL ACT, CPB 110(L) 112 - 174 sec [facility] Blood 07/30/2024 2:26 PM CDT 07/30/2024 2:26 PM CDT Nick Veliz MD LAB POCT ORDERABLES - DE VICE Final Result Performing Organization Address [facility] Co de Phone Number [facility] [place] [address] * POCT Partial thromboplastin time (PTT) (07/30/2024 2:26 PM CDT) APTT, POC 36.6 32.5 - 46.1 sec Blood 07/30/2024 2:26 PM CDT 07/30/2024 2:26 PM CDT Nick Veliz MD LAB POCT ORDERABLES - DE VICE Final Result Performing Organization Address [facility] Co de Phone Number [facility] [place] [address] * POCT glucose (07/30/2024 2:26 PM CDT) Glucose, POC 177 70 - 199 mg/dL Blood 07/30/2024 2:26 PM CDT 07/30/2024 2:26 PM CDT Nick Veliz MD LAB POCT ORDERABLES - DE VICE Final Result Performing Organization Address [facility] [place] [address] * (ABNORMAL) POCT hemoglobin, hematocrit and platelet count (07/30/2024 2:25 PM CDT) Hgb, POC 9.3(L) 13.0 - 17.5 g/dL Hematocrit POC 28.4(L) 38.9 - 50.3 % [facility] Platelet POC 118(L) 150 - 400 K/cumm [facility] Blood 07/30/2024 2:25 PM CDT 07/30/2024 2:25 PM CDT Nick Veliz MD LAB POCT ORDERABLES - DE VICE Final Result Performing Organization Address [facility] [place] [address] * (ABNORMAL) POC Blood Gas and Chemistries, Arterial - (07/30/2024 2:24 PM CDT) pH, Art POC 7.36 7.35 - 7.45 pCO2, Art POC 37 35 - 45 mmHg [facility] pO2, Art POC 313(H) 83 - 108 mmHg [facility] Na, POC 135 135 - 145 mmol/L [facility] K POC 4.2 3.3 - 4.9 mmol/L [facility] Comment: Interpretive Data Not all point of care methods assess for hemolysis. Confirm with instrument and retest K+ if not consistent with clinical signs and symptoms. Current Interpretive Data was last revised on 2023. Cl, POC 107 97 - 110 mmol/L [facility] Ionized Ca, POC 5.05 4.50 - 5.10 mg/dL [facility] Glucose, POC Incalculable 70 - 199 mg/dL [facility] Lactate POC 3.5(H) 0.7 - 2.0 mmol/L [facility] SO2 (vivian) arterial 99(H) 90 - 95 % [facility] Base excess, POC -4.1 mmol/L [facility] HCO3, Art POC 21 20 - 30 mmol/L [facility] Hct, POC 29.0(L) 41.4 - 51.6 % [facility] Total Hb, POC 9.8(L) 13.8 - 17.2 g/dL [facility] Blood 07/30/2024 2:24 PM CDT 07/30/2024 2:24 PM CDT Nick Veliz MD LAB POCT ORDERABLES - DE VICE Final Result Performing Organization Address City/[facility]/ZIP Co de Phone Number [facility] [place] [address] * (ABNORMAL) POCT heparin/ACT CPB (07/30/2024 1:37 PM CDT) Heparin POC <2.8 units/mL ACT, CPB 518(H) 112 - 174 sec [facility] Blood 07/30/2024 1:37 PM CDT 07/30/2024 1:37 PM CDT us Nick Veliz MD LAB POCT ORDERABLES - DE VICE Final Result [facility] [place] [address] * (ABNORMAL) POC Blood Gas and Chemistries, Arterial - (07/30/2024 1:34 PM CDT) pH, Art POC 7.45 7.35 - 7.45 pCO2, Art POC 35 35 - 45 mmHg [facility] pO2, Art POC 299(H) 83 - 108 mmHg [facility] Na, POC 134(L) 135 - 145 mmol/L [facility] K POC 5.0(H) 3.3 - 4.9 mmol/L [facility] Comment: Interpretive Data Not all point of care methods assess for hemolysis. Confirm with instrument and retest K+ if not consistent with clinical signs and symptoms. Current Interpretive Data was last revised on 2023. Cl, POC 107 97 - 110 mmol/L [facility] Ionized Ca, POC 4.51 4.50 - 5.10 mg/dL [facility] Glucose, POC Incalculable 70 - 199 mg/dL [facility] Lactate POC 1.2 0.7 - 2.0 mmol/L [facility] SO2 (vivian) arterial 100(H) 90 - 95 % [facility] Base excess, POC 0.5 mmol/L [facility] HCO3, Art POC 24 20 - 30 mmol/L [facility] Hct, POC 29.0(L) 41.4 - 51.6 % [facility] Total Hb, POC 9.6(L) 13.8 - 17.2 g/dL [facility] Blood 07/30/2024 1:34 PM CDT 07/30/2024 1:34 PM CDT us Nick Veliz MD LAB POCT ORDERABLES - DE VICE Final Result [facility] [place] [address] * (ABNORMAL) POCT heparin/ACT CPB (07/30/2024 1:05 PM CDT) Heparin POC 3.4 units/mL ACT, CPB 574(H) 112 - 174 sec [facility] Blood 07/30/2024 1:05 PM CDT 07/30/2024 1:05 PM CDT Nick Veliz MD LAB POCT ORDERABLES - DE VICE Final Result [facility] [place] [address] * (ABNORMAL) POC Blood Gas and Chemistries, Arterial - (07/30/2024 1:02 PM CDT) Pathologist [facility] [place] pH, Art POC 7.28(L) 7.35 - 7.45 pCO2, Art POC 59(H) 35 - 45 mmHg [facility] pO2, Art POC 268(H) 83 - 108 mmHg [facility] Na, POC 136 135 - 145 mmol/L [facility] K POC 4.6 3.3 - 4.9 mmol/L [facility] Comment: Interpretive Data Not all point of care methods assess for hemolysis. Confirm with instrument and retest K+ if not consistent with clinical signs and symptoms. Current Interpretive Data was last revised on 2023. Cl, POC 105 97 - 110 mmol/L [facility] Ionized Ca, POC 4.61 4.50 - 5.10 mg/dL [facility] Glucose, POC Incalculable 70 - 199 mg/dL [facility] Lactate POC 0.9 0.7 - 2.0 mmol/L [facility] SO2 (vivian) arterial 100(H) 90 - 95 % [facility] Base excess, POC 0.3 mmol/L [facility] HCO3, Art POC 28 20 - 30 mmol/L [facility] Hct, POC 29.0(L) 41.4 - 51.6 % [facility] Total Hb, POC 9.7(L) 13.8 - 17.2 g/dL [facility] Blood 07/30/2024 1:02 PM CDT 07/30/2024 1:02 PM CDT Nick Veliz MD LAB POCT ORDERABLES - DE VICE Final Result [facility] [place] [address] * Surgical pathology (07/30/2024 1:00 PM CDT) Tissue (Heart Valve) 07/30/2024 1:00 PM CDT Narrative [facility] - 08/02/2024 11:28 PM CDT EPIC results best viewed via link to PDF [facility] [place] [address] Note to Patients: This report may contain [...] REPORT FINAL Patient Name: SHEY SHAH Gender: Hayes : 1950 (Age: 73) Address: [address] [place], [place] [id number] Hospital #: [id number] Taken:07/30/2024 Received:07/30/2024 Reported: 08/02/2024 Patient Type: [facility] Inpatient Service: Medical Location: [place] [address] Physician(s): MD Juanito Ugalde M.D. Diagnosis: Heart, aortic valve, replacement - Fibrosis with dystrophic calcifications - No evidence of endocarditis [facility]/08/02/2024 23:28 By this signature, I attest that [...] crespo-yellow tissue fragments. They are sectioned and payable representative sections are submitted in A1 following acid decalcification. Jar 1. dxb/07/31/2024 12:12 PA(s): FRANCHESCA Pepper PA([facility])CM By this signature, I attest that the above diagnosis is based upon my personal examination of the slides(and/or other material). Addenda/Procedures The performance characteristics of some immunohistochemical stains, fluorescence in-situ hybridization tests and immunophenotyping by flow cytometry cited in this report (if any) were determined by the Surgical Pathology and Flow Cytometry Departments at [facility] as part of an ongoing water quality manager program and in compliance with federally [...] Surgical Pathology and Flow Cytometry Departments of [facility]. It has not been cleared or approved by the U. [place]. Food and Drug Administration. IMAGES AND SCANNED DOCUMENTS, IF INCLUDED, ONLY VIEWABLE IN PDF VERSION OF REPORT Nick Veliz MD LAB PATHOLOGY ORDERABLES Final Result Performing Organization Address City/[facility]/ZIP Co de Phone Number [facility]OLOGY [facility] [address] [place], [place] [phone] * POCT glucose (07/30/2024 12:39 PM CDT) Pathologist [facility] [place] Glucose, POC 152 70 - 199 mg/dL Blood 07/30/2024 12:3 9 PM CDT 07/30/2024 12:39 PM CDT Nick Veliz MD LAB POCT ORDERABLES - DE VICE Final Result Performing Organization Address [facility] Co de Phone Number [facility] Department [place] [address] * (ABNORMAL) POCT heparin/ACT CPB (07/30/2024 12:38 PM CDT) [facility] Heparin POC <2.8 units/mL ACT, CPB 528(H) 112 - 174 sec [facility] Blood 07/30/2024 12:3 8 PM CDT 07/30/2024 12:38 PM CDT Nick Veliz MD LAB POCT ORDERABLES - DE VICE Final Result Performing Organization Address [facility] Co de Phone Number [facility] Department [place] [address] * (ABNORMAL) POC Blood Gas and Chemistries, Arterial - (07/30/2024 12:34 PM CDT) Pathologist [facility] pH, Art POC 7.45 7.35 - 7.45 pCO2, Art POC 37 35 - 45 mmHg [facility] pO2, Art POC 349(H) 83 - 108 mmHg [facility] Na, POC 134(L) 135 - 145 mmol/L [facility] K POC 4.9 3.3 - 4.9 mmol/L [facility] Comment: Interpretive Data Not all point of care methods assess for hemolysis. Confirm with instrument and retest K+ if not consistent with clinical signs and symptoms. Current Interpretive Data was last revised on 2023. Cl, POC 107 97 - 110 mmol/L [facility] Ionized Ca, POC 4.43(L) 4.50 - 5.10 mg/dL [facility] Glucose, POC Incalculable 70 - 199 mg/dL [facility] Lactate POC 1.0 0.7 - 2.0 mmol/L [facility] SO2 (vivian) arterial 100(H) 90 - 95 % [facility] Base excess, POC 1.7 mmol/L [facility] HCO3, Art POC 26 20 - 30 mmol/L [facility] Hct, POC 29.0(L) 41.4 - 51.6 % [facility] Total Hb, POC 9.8(L) 13.8 - 17.2 g/dL [facility] Blood 07/30/2024 12:3 4 PM CDT 07/30/2024 12:34 PM CDT Nick Veliz MD LAB POCT ORDERABLES - DE VICE Final Result Performing Organization Address City/[facility]/ZIP Co de Phone Number [facility] [place] [address] * (ABNORMAL) POCT heparin/ACT CPB (07/30/2024 12:18 PM CDT) [facility] Heparin POC <2.8 units/mL ACT, CPB 573(H) 112 - 174 sec [facility] Blood 07/30/2024 12:1 8 PM CDT 07/30/2024 12:18 PM CDT Nick Veliz MD LAB POCT ORDERABLES - DE VICE Final Result [facility] [place] [address] * POCT glucose (07/30/2024 11:46 AM CDT) Glucose, POC 154 70 - 199 mg/dL Blood 07/30/2024 11:4 6 AM CDT 07/30/2024 11:46 AM CDT Nick Veliz MD LAB POCT ORDERABLES - DE VICE Final Result Performing Organization Address City/[facility] Co de Phone Number [facility] [place] [address] * (ABNORMAL) POCT heparin/ACT CPB (07/30/2024 11:44 AM CDT) [facility] Heparin POC 3.4 units/mL ACT, CPB 573(H) 112 - 174 sec [facility] Blood 07/30/2024 11:4 4 AM CDT 07/30/2024 11:44 AM CDT Nick Veliz MD LAB POCT ORDERABLES - DE VICE Final Result Performing Organization Address [facility] Co de Phone Number [facility] [place] [address] * (ABNORMAL) POC Blood Gas and Chemistries, Arterial - (07/30/2024 11:42 AM CDT) [facility] pH, Art POC 7.44 7.35 - 7.45 pCO2, Art POC 37 35 - 45 mmHg [facility] pO2, Art POC 361(H) 83 - 108 mmHg [facility] Na, POC 135 135 - 145 mmol/L [facility] K POC 4.8 3.3 - 4.9 mmol/L [facility] Comment: Interpretive Data Not all point of care methods assess for hemolysis. Confirm with instrument and retest K+ if not consistent with clinical signs and symptoms. Current Interpretive Data was last revised on 2023. Cl, POC 106 97 - 110 mmol/L [facility] Ionized Ca, POC 4.38(L) 4.50 - 5.10 mg/dL [facility] Glucose, POC Incalculable 70 - 199 mg/dL [facility] Lactate POC 1.1 0.7 - 2.0 mmol/L [facility] SO2 (vivian) arterial 100(H) 90 - 95 % [facility] Base excess, POC 1.0 mmol/L [facility] HCO3, Art POC 25 20 - 30 mmol/L [facility] Hct, POC 30.0(L) 41.4 - 51.6 % [facility] Total Hb, POC 10.1(L) 13.8 - 17.2 g/dL [facility] Blood 07/30/2024 11:4 2 AM CDT 07/30/2024 11:42 AM CDT Nick Veliz MD LAB POCT ORDERABLES - DE VICE Final Result Performing Organization Address [facility] Co de Phone Number [facility] [place] [address] * POCT glucose (07/30/2024 11:18 AM CDT) Glucose, POC 145 70 - 199 mg/dL Blood 07/30/2024 11:1 8 AM CDT 07/30/2024 11:18 AM CDT Nick Veliz MD LAB POCT ORDERABLES - DE VICE Final Result Performing Organization Address City/[facility] Co de Phone Number [facility] [place] [address] * (ABNORMAL) POCT heparin/ACT CPB (07/30/2024 11:08 AM CDT) Heparin POC 4.1 units/mL ACT, CPB 633(H) 112 - 174 sec [facility] Blood 07/30/2024 11:0 8 AM CDT 07/30/2024 11:08 AM CDT Nick Veliz MD LAB POCT ORDERABLES - DE VICE Final Result Performing Organization Address City/[facility]/ZIP Co de Phone Number [facility] [place] [address] * (ABNORMAL) POC Blood Gas and Chemistries, Arterial - (07/30/2024 11:07 AM CDT) pH, Art POC 7.35 7.35 - 7.45 pCO2, Art POC 45 35 - 45 mmHg [facility] pO2, Art POC 147(H) 83 - 108 mmHg [facility] Na, POC 135 135 - 145 mmol/L [facility] K POC 4.2 3.3 - 4.9 mmol/L [facility] Comment: Interpretive Data Not all point of care methods assess for hemolysis. Confirm with instrument and retest K+ if not consistent with clinical signs and symptoms. Current Interpretive Data was last revised on 2023. Cl, POC 105 97 - 110 mmol/L [facility] Ionized Ca, POC 4.41(L) 4.50 - 5.10 mg/dL [facility] Glucose, POC Incalculable 70 - 199 mg/dL [facility] Lactate POC 2.4(H) 0.7 - 2.0 mmol/L [facility] SO2 (vivian) arterial 99(H) 90 - 95 % [facility] Base excess, POC -1.0 mmol/L [facility] HCO3, Art POC 25 20 - 30 mmol/L [facility] Hct, POC 31.0(L) 41.4 - 51.6 % [facility] Total Hb, POC 10.4(L) 13.8 - 17.2 g/dL [facility] Blood 07/30/2024 11:0 7 AM CDT 07/30/2024 11:07 AM CDT us Nick Pippa Veliz MD LAB POCT ORDERABLES - DE VICE Final Result Performing Organization Address City/[facility]/ZIP Co de Phone Number [facility] [facility] [place] [address] * (ABNORMAL) POCT heparin/ACT CPB (07/30/2024 10:10 AM CDT) Heparin POC >4.7 units/mL ACT, CPB 548(H) 112 - 174 sec [facility] Blood 07/30/2024 10:1 0 AM CDT 07/30/2024 10:10 AM CDT Nick Veliz MD LAB POCT ORDERABLES - DE VICE Final Result [facility] Department [place] [address] * (ABNORMAL) POC Blood Gas and Chemistries, Arterial - (07/30/2024 10:08 AM CDT) pH, Art POC 7.39 7.35 - 7.45 pCO2, Art POC 40 35 - 45 mmHg [facility] pO2, Art POC 157(H) 83 - 108 mmHg [facility] Na, POC 133(L) 135 - 145 mmol/L [facility] K POC 3.6 3.3 - 4.9 mmol/L [facility] Comment: Interpretive Data Not all point of care methods assess for hemolysis. Confirm with instrument and retest K+ if not consistent with clinical signs and symptoms. Current Interpretive Data was last revised on 2023. Ionized Ca, POC 4.21(L) 4.50 - 5.10 mg/dL [facility] Glucose, POC Incalculable 70 - 199 mg/dL [facility] Lactate POC 1.1 0.7 - 2.0 mmol/L [facility] SO2 (vivian) arterial 100(H) 90 - 95 % [facility] Base excess, POC -0.7 mmol/L [facility] HCO3, Art POC 24 20 - 30 mmol/L [facility] Hct, POC 39.0(L) 41.4 - 51.6 % [facility] Total Hb, POC 12.9(L) 13.8 - 17.2 g/dL [facility] Blood 07/30/2024 10:0 8 AM CDT 07/30/2024 10:08 AM CDT us Nick Veliz MD LAB POCT ORDERABLES - DE VICE Final Result [facility] Department [place] [address] * MS AN PROCEDURE PLACEHOLDER (07/30/2024 9:54 AM CDT) [...] code: AMILCAR placement and diagnostic exam, non-congenital (63505) ICD code(s) for medical necessity: I35.0 - [...] inferior: hypokinetic 16- Apical septal: hypokinetic 17- [place]: hypokinetic Valves: Aortic Valve: Annulus: normal Leaflet [...] portion of the MV Mild-moderate TR, Mild MS Large JORGE with no e/o thrombus No [...] response slope POC 86 60 - 195 [facility] Projected Heparin Concentration POC 3.9 units/mL [facility] Blood 07/30/2024 8:55 AM CDT 07/30/2024 8:55 AM CDT Nick Veliz MD LAB POCT ORDERABLES - DE VICE Final Result [facility] Department [place] [address] * (ABNORMAL) POC Blood Gas and Chemistries, Arterial - (07/30/2024 8:52 AM CDT) pH, Art POC 7.42 7.35 - 7.45 pCO2, Art POC 43 35 - 45 mmHg [facility] pO2, Art POC 126(H) 83 - 108 mmHg [facility] Na, POC 135 135 - 145 mmol/L [facility] K POC 3.7 3.3 - 4.9 mmol/L [facility] Comment: Interpretive Data Not all point of care methods assess for hemolysis. Confirm with instrument and retest K+ if not consistent with clinical signs and symptoms. Current Interpretive Data was last revised on 2023. Cl, POC 101 97 - 110 mmol/L [facility] Ionized Ca, POC 4.54 4.50 - 5.10 mg/dL [facility] Glucose, POC Incalculable 70 - 199 mg/dL [facility] Lactate POC 1.4 0.7 - 2.0 mmol/L [facility] SO2 (vivian) arterial 100(H) 90 - 95 % [facility] Base excess, POC 2.9 mmol/L [facility] HCO3, Art POC 28 20 - 30 mmol/L [facility] Hct, POC 41.0(L) 41.4 - 51.6 % [facility] Total Hb, POC 13.8 13.8 - 17.2 g/dL [facility] Blood 07/30/2024 8:52 AM CDT 07/30/2024 8:52 AM CDT us Nick Veliz MD LAB POCT ORDERABLES - DE VICE Final Result [facility] Department [place] [address] * AMILCAR Add-On For OR (07/30/2024 7:58 AM CDT) BSA 2.26 m2 [facility] PROSOLV_CARDIORE PORT_CONS SCIMAGE Narrative [facility] PROSOLV_CARDIOREPORT_CONS SCIMAGE - 07/30/2024 7:58 AM CDT Procedure Auto Finalized by Rule: BW CV AMILCAR DURING CASE OR Please see the Anesthesiologist's Procedure Note for the results. us Abhi Martinez MD CV ECHO PROCEDURES F inal Result Performing Organization Address [facility] de Phone Number [facility] PROSOLV_CARDIOREPORT_CONS SCIMAGE * Prepare RBC: 4 Units (07/30/2024 5:42 AM CDT) Product code [id number] Unit Number [id number] [facility] Product Blood Type APOS [facility] Dispense Status PRESUMED TRANSFUSED [facility] Blood 07/30/2024 5:42 AM CDT 07/30/2024 5:41 AM CDT Narrative [facility] - 07/31/2024 8:02 AM CDT Specify Procedure:->AVR Are special requirements needed? (All products are leukoreduced and CMV- safe)- >No Date required:-[id number] LRRBC # of [id number] Reasons:-Hold for procedure (specify procedure)} us Aide Galicia [employer] BLOOD BANK PRODUCT OR DERABLES Final Result Performing Organization Address [facility] de Phone Number [facility] Department [place] [address] * Potassium, whole blood (07/30/2024 5:18 AM CDT) Pathologist [facility] Potassium, bld 3.5 3.3 - 4.9 mmol/L Blood 07/30/2024 5:18 AM CDT 07/30/2024 5:43 AM CDT Alicia Tuttle [employer] LAB BLOOD ORDERABLES Final R esult Performing Organization Address [facility] de Phone Number [facility] Department [place] [address] * ECG 12 lead (07/30/2024 5:14 AM CDT) [facility] Ventricular Rate EKG/Min 76 BPM [facility] Atrial Rate 76 BPM [facility] MS-Interval (MSEC) 176 ms [facility] QRS-Interval (MSEC) 102 ms [facility] QT-Interval (MSEC) 410 ms [facility] QTc 461 ms [facility] P [place] 91 degrees [facility] R [place] 72 degrees [facility] T [place] 66 degrees [facility] Diagnosis Normal sinus rhythm with sinus arrhythmia Minimal voltage criteria for LVH, may be normal variant ( Layo product ) Borderline ECG No previous ECGs available Confirmed by Martina Simmons MD ([id number]) on 07/31/2024 12:12:34 AM [facility] 07/30/2024 5:14 AM CDT 07/31/2024 12:12 AM CDT Nick Veliz MD ECG ORDERABLES Final Re sult [facility] * Potassium, whole blood (07/30/2024 12:07 AM CDT) Pathologist [facility] Potassium, bld 3.9 3.3 - 4.9 mmol/L Blood 07/30/2024 12:0 7 AM CDT 07/30/2024 12:45 AM CDT Alicia Tuttle NP LAB BLOOD ORDERABLES Final R esult [facility] Department [place] [address] * Potassium, whole blood (07/29/2024 5:13 PM CDT) Pathologist [facility] Potassium, bld 3.9 3.3 - 4.9 mmol/L Blood 07/29/2024 5:13 PM CDT 07/29/2024 5:22 PM CDT us Alicia Tuttle [employer] LAB BLOOD ORDERABLES Final R esult Performing Organization Address City/[facility]/ZIP Co de Phone Number [facility] Department [place] [address] * eGFR (07/29/2024 5:13 PM CDT) eGFR [...] 07/29/2024 5:39 PM CDT us Kirstin Vidal [employer] LAB BLOOD ORDERABLES Final Result Performing Organization Address City/[facility]/ZIP Co de Phone Number [facility] [place] [address] * (ABNORMAL) Differential, auto (07/29/2024 5:13 PM CDT) Pathologist [facility] Neutrophil abs 8.30(H) 1.50 - 6.50 K/cumm Imm gran abs 0.05 0.00 - 0.10 K/cumm [facility] Lymphocyte abs 1.22 0.80 - 3.30 K/cumm [facility] Monocyte abs 1.20(H) 0.20 - 0.80 K/cumm [facility] Eosinophil abs 0.05 0.00 - 0.50 K/cumm [facility] Basophil abs 0.04 0.00 - 0.10 K/cumm [facility] Neutrophil pct 76.4 % [facility] Comment: Interpretive Data Percent cell count reference ranges are not reported, since discordance with absolute values may lead to misinterpretation of CBC data. Current Interpretive Data was last revised on 2017. Imm gran pct 0.5 % [facility] Comment: Interpretive Data Percent cell count reference ranges are not reported, since discordance with absolute values may lead to misinterpretation of CBC data. Current Interpretive Data was last revised on 2017. Lymphocyte pct 11.2 % [facility] Comment: Interpretive Data Percent cell count reference ranges are not reported, since discordance with absolute values may lead to misinterpretation of CBC data. Current Interpretive Data was last revised on 2017. Monocyte pct 11.0 % [facility] Comment: Interpretive Data Percent cell count reference ranges are not reported, since discordance with absolute values may lead to misinterpretation of CBC data. Current Interpretive Data was last revised on 2017. Eosinophil pct 0.5 % [facility] Comment: Interpretive Data Percent cell count reference ranges are not reported, since discordance with absolute values may lead to misinterpretation of CBC data. Current Interpretive Data was last revised on 2017. Basophil pct 0.4 % [facility] Comment: Interpretive Data Percent cell count reference ranges are not reported, since discordance with absolute values may lead to misinterpretation of CBC data. Current Interpretive Data was last revised on 2017. Blood 07/29/2024 5:13 PM CDT 07/29/2024 5:39 PM CDT us Kirstin Vidal NP LAB BLOOD ORDERABLES Final Result [facility] Department [place] [address] * (ABNORMAL) CBC with auto differential (07/29/2024 5:13 PM CDT) WBC 10.86(H) 3.80 - 9.90 K/cumm Hgb 14.0 13.0 - 17.5 g/dL [facility] Hct 41.2 38.9 - 50.3 % [facility] Plt 253 150 - 400 K/cumm [facility] MPV 10.7 9.1 - 12.3 fL [facility] RBC 3.96(L) 4.30 - 5.80 M/cumm [facility] MCV 104.0(H) 81.3 - 96.4 fL [facility] MCH 35.4(H) 27.1 - 33.3 pg [facility] MCHC 34.0 32.3 - 35.7 g/dL [facility] RDW CV 12.3 11.1 - 14.9 % [facility] RDW SD 47.4 35.7 - 48.1 fL [facility] NRBC abs 0.00 0.00 - 0.01 K/cumm [facility] Blood 07/29/2024 5:13 PM CDT 07/29/2024 5:39 PM CDT us Kirstin Vidal NP LAB BLOOD ORDERABLES Final Result [facility] [place] [address] * Type and screen (07/29/2024 5:13 PM CDT) Pathologist [facility] [place] Kumar, indirect Negative ABO Rh A Positive [facility] Blood 07/29/2024 5:13 PM CDT 07/29/2024 5:25 PM CDT us Nick Veliz MD LAB BLOOD BANK TEST ORDE RABLES Final [place] [address] * Phosphorus (07/29/2024 5:13 PM CDT) Pathologist [facility] Phosphorus, pl 3.2 2.3 - 4.5 mg/dL Blood 07/29/2024 5:13 PM CDT 07/29/2024 5:39 PM CDT Kirstin Vidal [employer] LAB BLOOD [place] [address] * Magnesium (07/29/2024 5:13 PM CDT) [facility] Magnesium 1.8 1.4 - 2.5 mg/dL Blood 07/29/2024 5:13 PM CDT 07/29/2024 5:39 PM CDT Kirstin Vidal [employer] LAB BLOOD ORDERABLES Final Result Performing Organization Address City/[facility] [place] [address] * (ABNORMAL) Hepatic function panel (07/29/2024 5:13 PM CDT) Pathologist [facility] Bilirubin, total 1.0 0.1 - 1.2 mg/dL Bilirubin, direct 0.4(H) 0.1 - 0.3 mg/dL [facility] Protein, pl 7.0 6.5 - 8.5 g/dL [facility] Albumin 3.5 3.5 - 5.0 g/dL [facility] Alk phos 60 40 - 130 Units/L [facility] ALT 22 7 - 55 Units/L [facility] AST 26 10 - 50 Units/L [facility] Blood 07/29/2024 5:13 PM CDT 07/29/2024 5:39 PM CDT Renae Moseley DO LAB BLOOD ORDERABLE S Final Result [facility] [place] [address] * (ABNORMAL) Basic metabolic panel (07/29/2024 5:13 PM CDT) Sodium 134(L) 135 - 145 mmol/L Potassium, pl 3.9 3.3 - 4.9 mmol/L [facility] Chloride 94(L) 97 - 110 mmol/L [facility] CO2 29 22 - 32 mmol/L [facility] Anion gap 11 2 - 15 mmol/L [facility] BUN 22 6 - 25 mg/dL [facility] Creatinine 1.12 0.80 - 1.30 mg/dL [facility] Glucose 111 70 - 199 mg/dL [facility] Comment: Interpretive Data Fasting glucose [...] 2022. Calcium 9.0 8.5 - 10.3 mg/dL [facility] Blood 07/29/2024 5:13 PM CDT 07/29/2024 5:39 PM CDT us Kirstin Vidal [employer] LAB BLOOD ORDERABLES Final Result [facility] Department [place] [address] * POCT glucose (07/29/2024 5:05 PM CDT) Glucose, POC 97 70 - 199 mg/dL Blood 07/29/2024 5:05 PM CDT 07/29/2024 5:05 PM CDT Nick Veliz MD LAB POCT ORDERABLES - DE VICE Final Result [facility] Department [place] [address] * Prepare RBC: 4 Units (07/29/2024 4:07 PM CDT) [facility] Product code [id number] Unit Number [id number] 9-B [facility] Product Blood Type APOS [facility] Dispense Status RETURNED [facility] Product code [id number] [facility] Unit Number [id number] 2-S [facility] Product Blood Type APOS [facility] Dispense Status RETURNED [facility] Product code [id number] [facility] Unit Number [id number] 4-2 [facility] Product Blood Type APOS [facility] Dispense Status RETURNED [facility] Product code [id number] [facility] Unit Number [id number] 3-F [facility] Product Blood Type APOS [facility] Dispense Status RETURNED [facility] Blood 07/29/2024 4:07 PM CDT 07/29/2024 4:07 PM CDT Narrative [facility] - 07/30/2024 5:39 PM CDT Specify Procedure:->BioAVR on 07/30/24 Are special requirements needed? (All products are leukoreduced and CMV- safe)- >No Date required:-[id number] LRRBC # of [id number] Reasons:-Hold for procedure (specify procedure)} us Alicia Tuttle [employer] BLOOD BANK PRODUCT ORDERABLE S Final Result Performing Organization Address [facility]/ZIP Co de Phone Number [facility] Department [place] [address] * (ABNORMAL) aPTT (07/29/2024 3:32 PM CDT) aPTT 52(H) 28 - 38 sec Comment: Interpretive Data Heparin therapeutic range: 66.0 - 100.0 seconds. Range based on correlation with therapeutic heparin activity range of 0.3 - 0.7 Units/mL. Current interpretive data was last revised on 2023. Blood 07/29/2024 3:32 PM CDT 07/29/2024 3:50 PM CDT [facility] - 07/29/2024 4:00 PM CDT Draw STAT PTT 2 hours after initiation of bivalirudin infusion, draw STAT PTT 2 hours after each dose change, and every 2 hours until 2 consecutive PTTs are within therapeutic range. Once two consecutive PTTs are therapeutic (50-80 seconds), then draw PTT every AM until bivalirudin is discontinued. us Renae Moseley DO LAB BLOOD ORDERABLE S Final Result [facility] [place] [address] * (ABNORMAL) Urinalysis reflex to microscopic and culture Urine, clean voided (07/29/2024 2:43 PM CDT) Color, ur Straw Yellow Clarity, ur Clear Clear [facility] Specific gravity, ur 1.012 1.003 - 1.030 [facility] pH, urine 7.0 [facility] Comment: Interpretive Data U rine pH is affected by diet, medications, systemic acid-base disturbances, and renal tubular function. pH may affect urinary stone formation. For example, urine pH below 6.0 may help reduce the tendency for calcium phosphate stones and pH greater than 6.0 may reduce the tendency for uric acid stone formation. Source: [facility] VIVA Current Interpretive Data was last revised on 2017 Protein, ur ql Negative Negative [facility] Glucose, ur ql Negative Negative [facility] Ketones, ur Negative Negative [facility] Bilirubin, ur Negative Negative [facility] Blood, ur Trace(A) Negative [facility] Urobilinogen, ur <2.0 <2.0 mg/dL [facility] Nitrite, ur Negative Negative [facility] Leukocyte esterase, ur Negative Negative [facility] UA reflex comment Reflex to microscopic UA will be performed. [facility] Urine, clean voided 07/29/2024 2:43 PM CDT 07/29/2024 3:20 PM CDT Aide Galicia NP LAB MICROBIOLOGY - NERAL ORDERABLES Final Result Performing Organization Address [facility] Co de Phone Number [facility] Department [place] [address] * (ABNORMAL) Urinalysis, microscopic only (07/29/2024 2:43 PM CDT) WBC, ur 0-5 0 - 5 /HPF RBC, ur 3-5(A) 0 - 2 /HPF [facility] Epithelial cells, squamous, ur 1-5 0 - 5 /HPF [facility] Mucous, ur Present(A) [facility] Hyaline casts, ur 1-5 0 - 10 /LPF [facility] Culture Reflex Comment Reflex conditions for urine culture (WBC >10) not met. [facility] Urine, clean voided 07/29/2024 2:43 PM CDT 07/29/2024 3:20 PM CDT Aide Galicia NP LAB URINE ORDERABLES Final Result Performing Organization Address [facility] Co de Phone Number [facility] Department [place] [address] * POCT glucose (07/29/2024 11:55 AM CDT) Glucose, POC 120 70 - 199 mg/dL Blood 07/29/2024 11:5 5 AM CDT 07/29/2024 11:55 AM CDT Nick Veliz MD LAB POCT ORDERABLES - DE VICE Final Result Performing Organization Address City/[facility]/ZIP Co de Phone Number [facility] [place] [address] * (ABNORMAL) Potassium, whole blood (07/29/2024 11:49 AM CDT) Potassium, bld 3.2(L) 3.3 - 4.9 mmol/L Blood 07/29/2024 11:4 9 AM CDT 07/29/2024 12:05 PM CDT Alicia Tuttle [employer] LAB BLOOD ORDERABLES Final R esult Performing Organization Address [facility] Co de Phone Number [facility] [place] [address] * (ABNORMAL) aPTT (07/29/2024 11:49 AM CDT) aPTT 49(H) 28 - 38 sec Comment: Interpretive Data Heparin therapeutic range: 66.0 - 100.0 seconds. Range based on correlation with therapeutic heparin activity range of 0.3 - 0.7 Units/mL. Current interpretive data was last revised on 2023. Blood 07/29/2024 11:4 9 AM CDT 07/29/2024 12:07 PM CDT Narrative [facility] - 07/29/2024 12:34 PM CDT Draw [...] ORDERABLE S Final Result Performing Organization Address [facility]/ZIP Co de Phone Number [facility] [place] [address] * (ABNORMAL) Protime-INR (07/29/2024 11:49 AM CDT) PT 16.1(H) 9.7 - 13.0 sec INR 1.48(H) 0.90 - 1.20 [facility] Comment: Interpretive data Oral anticoagulant therapeutic ranges: Venous thromboembolism prophylaxis or treatment: 2.0-3.0 CARDIOLOGY Standard range: 2.0-3.0 High-intensity range: 2.5-3.5 Refer to indication-specific guidelines for appropriate target ranges for prosthetic heart valve replacement. Current interpretive data was last revised on 2019. Blood 07/29/2024 11:4 9 AM CDT 07/29/2024 12:07 PM CDT us Nick Pippa Veliz MD LAB BLOOD ORDERABLES Fin al Result Performing Organization Address City/State/[facility] Co de Phone Number [facility] [place] [address] * Pulmonary Function Test -[facility] Main [place]; Standard, Spirometry with Bronchodilator, ABG, DLCO; Spirometry, Spirometry w/bronchodilator, DLCO and Lung Volumes; Room Air ABG; Spirometry (07/29/2024 11:42 AM CDT) FVC PRE 2.59 L [facility] FVC %PRE PRED 58 % [facility] FEV1 PRE 1.84 L [facility] FEV1 %PRE PRED 56 % [facility] FEV1/FVC PRE 70.8 % [facility] FRC PL PRE 2.83 L [facility] FRC PL %PRE PRED 68 % [facility] RV PRE 1.79 L [facility] RV %PRE PRED 66 % [facility] TLC PRE 4.45 L [facility] TLC %PRE PRED 58 % [facility] DLCO PRE 16.2 ml/min/mmH g [facility] DLCO %PRE PRED 58 % [facility] FIO2 % 21.00 % [facility] PaO2 84.0 mmHg [facility] PaCO2 33.0 mmHg [facility] pH 7.55 [facility] A-aDO2 POC 24.0 mmHg [facility] METHGB % 0.2 % [facility] COHb POC 2.3 % [facility] HCO3 28.9 mEq/L [facility] Anatomical Region Laterality Modality PFT 07/29/2024 11:1 3 AM CDT Narrative 07/29/2024 5:09 PM CDT Scheduled for OR on 07/30 Patient Location:->[facility] Standard:->Spirometry, Spirometry w/bronchodilator, DLCO and Lung Volumes [...] and %HbO2 is age dependent. However, the [facility] defines hypoxemia as a PaO2 <56 mm Hg or a %HbO2 <89%. Starting on April of 2024 the [facility] utilizes race neutral GLI Global normative equations. us Alicia Tuttle [employer] PFT ORDERABLES Final Result * US Carotids Duplex Bilateral (07/29/2024 11:13 AM CDT) Anatomical Region Laterality Modality Vascular Bilateral Ultrasound 07/29/2024 9:36 AM CDT Narrative 07/29/2024 6:[address] [facility] - Department of Vascular Surgery, Vascular Laboratory [address] [place] [address] Carotid Duplex Ultrasound Report Patient Name: SHEY SHAH C : 1950 (73y 11m) Study Date: 07/29/2024 9:36:47 AM Gender: M Tech: Location: [id number] Ref Provider: ALICIA TUTTLE Quality: Adequate Order [...] LT VERT PSV 38 cm/sec FINDINGS: Performing Laster Hand: Yen Estrella RVT. Rt Common Carotid Artery: [...] Procedure Note Willie Saldivar MD - 07/29/2024 [facility] - Department of Vascular Surgery,Vascular Laboratory [address] [place] [address] Carotid Duplex Ultrasound Report Patient Name: SHEY SHAH C : 1950 (73y 11m) Study Date: 07/29/2024 9:36:47 AM Gender: M Tech: Location: [id number] Ref Provider: ALICIA TUTTLE Quality: Adequate Order [...] LT VERT PSV 38 cm/sec FINDINGS: Performing Laster Hand: Yen Estrella RVT. Rt Common Carotid Artery: [...] above. Electronically Signed By: Willie Saldivar MD [facility] 07/29/2024 6:38:30 PM CDT Alicia Tuttle [employer] IMG US PROCEDURES Final Resu lt * POCT glucose (07/29/2024 8:00 AM CDT) Pathologist [facility] Glucose, POC 117 70 - 199 mg/dL Blood 07/29/2024 8:00 AM CDT 07/29/2024 8:00 AM CDT Nick Veliz MD LAB POCT ORDERABLES - DE VICE Final Result [facility] Department [place] [address] * Hepatitis C antibody Blood (06/22/2024 5:59 AM LABEL SEWER) Pathologist [facility] [place] Hep C Ab Nonreactive Nonreactive Comment:Antibodies to HCV no t detected. Does NOT exclude the possibility of recent exposure to HCV. Current interpretive data was last revised on 21 Blood 06/22/2024 5:59 AM LABEL SEWER 06/22/2024 6:19 AM LABEL SEWER us Clovis Villalpando MD LAB MICROBIOLOGY - GENERA L ORDERABLES Final Result MARGI SANTAH [facility] Department [place] [address] * CT Chest Abdomen Pelvis W Contrast (06/21/2024 12:38 PM LABEL SEWER) Anatomical Region Laterality Modality Body N/A Computed Tomogra phy 06/21/2024 1:30 PM LABEL SEWER Impressions 06/21/2024 2:02 PM LABEL SEWER 1. No findings of acute trauma in [...] Pillai MD, PHD Narrative 06/21/2024 2:02 PM LABEL SEWER EXAMINATION: Computed tomography of the chest, abdomen [...] Clark MD IMG CT PROCEDURES Final Result from Last 3 Months or Most Recently Relevant to Health Maintenance Insurance [employer] MEDICARE [employer] [facility] MEDICARE Advance Directives For more information, please contact: [phone] * Full Code (Latest Code Status on File) Date Activated Date Inactivated Comments 07/30/2024 5:08 PM 08/13/2024 12:58 AM * Full Code Date Activated Date Inactivated Comments 07/25/2024 3:21 AM 07/30/2024 5:08 PM * Full Code Date Activated Date Inactivated Comments 06/21/2024 3:36 PM 06/22/2024 5:14 PM Care Teams Recruitment Internship Relationship Specialty Start Date End Date Juanito Woodward MD [address] [place] [address] PCP - General 08/10/16 Juanito Woodward MD [address] [place] [address] 08/10/16 Nick Veliz MD [address] [place] [address] Consulting Physician Cardiothoracic Surgery 08/12/24 Miscellaneous, Not In File 08/12/24
--- OUTSIDE RECORDS SUMMARY | 2024-10-28 12:42 | XMS_ITS | Clinical Summary ---
Author Organization [facility] Address [address] [place] [address] Care Team Providers Care Scarf Gluer Name Role Phone Juanito Woodward MD Primary Care Provide r Juanito Woodward MD Unavailable [phone] Nick Veliz MD Unavailable Miscellaneous, Not In [...] times a day 5 08/13/19 Active multivit xtnbqtbm-pfel-JR -calcium (THERA-M) 9 mg iron-400 mcg tablet [...] needed for sleep 5 08/13/19 26 Active Additional Information Patient [...] mouth daily 5 08/14/19 26 Active white petrolatum-mineral economist al oil (REFRESH PM) ointment Apply 1 [...] & Plan (08/11/2024 10:36 AM CDT): CXR 4 Bibasilar atelectasis, pleural effusion R>L Remains on RA - Lasix 80 mg IV TID (Milrinone was stopped on 08/08) transition to lasix 80mg po BID today - Pulmonary hygiene with IS, acapella, and C&DB Assessment & Plan (2024 1:25 PM CDT): CXR 8 Bibasilar atelectasis, pleural effusion R>L Remains on [...] Assessment & Plan (2024 1:30 PM CDT): /2: MVr (32mm ben annuloplasty band), AVR(25mm Magna), [...] 3.8 m/s. 07/25 he was transferred to [facility] for surgical evaluation. 42: MVr (32mm ben annuloplasty band), AVR(25mm Magna), [...] 3.8 m/s. 07/25 he was transferred to [facility] for surgical evaluation. 07/30: MVr (32mm ben [...] 06/21/2024 Assessment & Plan (06/22/2024 7:30 AM CHAIN PEGGER): -right shoulder dislocation and humeral head fracture s/p reduction by ortho in the ED -continue sling, RUE NWB -pain control with tylenol, ketorolac, and PRN oxycodone -ortho to set up outpatient follow up Acute respiratory failure 06/21/2024 Assessment & Plan (06/22/2024 7:30 AM CHAIN PEGGER): -unclear etiology, suspect community acquired pneumonia, atelectasis, [...] 06/21/2024 Assessment & Plan (06/22/2024 7:30 AM CHAIN PEGGER): -reportedly drinks 4-5 beers/day. Denies history of [...] TID Assessment & Plan (06/21/2024 4:02 PM CHAIN PEGGER): -continue amlodipine and losartan Resolved Problems Problem Noted Date Diagnosed Date Resolved Date Hyponatremia 06/21/2024 07/27/2024 Assessment & Plan (06/21/2024 4:05 PM CHAIN PEGGER): -chronic per patient, unclear etiology -sodium tabs prescribed as outpatient, continue for now. Encounters Date Type Department Care Team Description 09/02/2024 11:08 AM CDT - 09/02/2024 11:59 PM CDT Hospital Encounter [facility] [address] [place] [id number] Heart failure with reduced ejection fraction (HCC); Aortic stenosis, severe Discharge Disposition: Discharge to home or self care 09/02/2024 10:50 AM CDT Lab [facility] ([facility]) [address] [place] [phone] Heart failure with reduced ejection fraction (HCC); Aortic stenosis, severe 09/02/2024 10:00 AM CDT Office Visit [facility] Cardiothoracic Surgery [address] [place] [address] Advanced Medicine 8th Floor [address] Room [address] [place] [phone] Nick Veliz MD Heart failure with reduced ejection fraction (HCC) (Primary Dx); Aortic stenosis, severe 09/02/2024 Documentation [facility] Cardiothoracic Surgery [address] [place] [address] Medicine 8th Floor [address] Room [address] [place] [phone] Azul Armijo NP 08/28/2024 Telephone [facility] [address] [facility] [address] [place] [address] Gabriela Brand RN Cardiac Rehab 07/30/2024 8:00 AM CDT Ancillary Procedure [facility] Operating Room 1 [place] [address] 07/30/2024 8:00 AM CDT - 07/30/2024 4:50 PM CDT Surgery [facility] Operating Room 1 [place] [address] Nick Veliz MD REPLACEMENT AORTIC VALVE - MAGNA BIOPROSTHESIS 25 MM 07/30/2024 7:57 AM CDT Anesthesia Event [facility] Operating Room 1 [place] [address] Abhi Martinez MD Fischer, Elissa U., NP 07/29/2024 11:00 AM CDT - 07/29/2024 11:59 PM CDT Hospital Encounter [facility] Pulmonary [address] [place] [phone] Discharge Disposition: Discharge to home or self care 07/29/2024 9:05 AM CDT Ancillary Procedure [facility] Vascular Lab IP [address] [facility] [address] [place] [address] 07/25/2024 3:08 AM CDT - 08/12/2024 7:20 PM CDT Hospital Encounter [address] [phone] Nick Veliz MD Giacomino, Bria Dugolenski, DO Aortic stenosis, severe (Primary Dx); Aortic valve stenosis, etiology of cardiac valve disease unspecified; Atrial fibrillation with rapid ventricular response (HCC) Discharge Disposition: Discharge to an IP Rehab facility from Last 3 Months Surgical History Surgery Date Site/Laterality Comments CARDIAC CATHETERIZATION 07/28/2024 N/A Procedure: RIGHT HEART CATHETERIZATION [id number]; Surgeon: Peter Kulkarni MD PhD; Location: [facility]; Service: Cardiovascular; Laterality: N/A; CARDIAC CATHETERIZATION 07/28/2024 N/A Procedure: LEFT HEART CATHETERIZATION WITH CORONARY ANGIOGRAPHY AND WITH OR WITHOUT LEFT VENTRICULOGRAM [id number]; Surgeon: Peter Kulkarni MD PhD; Location: [facility]; Service: Cardiovascular; Laterality: N/A; CARDIAC ELECTROPHYSIOLOGY PROCEDURE 07/30/2024 Chest/N/A Procedure: ATRIAL FIBRILLATION ABLATION, ASCENDING AORTIC GRAFT; Surgeon: Nick Veliz MD; Location: [facility] OR POD 3; Service: Cardiothoracic; Laterality: N/A; [...] on file Legal Sex Male 1:55 AM CHAIN PEGGER Gender Identity Not on file Sexual Orientation [...] 09/02/2024 9:53 AM CDT Plan of Treatment Health Maintenance Due Date Last Done Comments Colon Cancer Screening-Colonoscopy 1950 Depression Screening 1950 DTaP/Tdap/Td Vaccine (1 - Tdap) 1961 Hepatitis B Screening 1968 Pneumococcal vaccine 65+ (1 of 2 - PCV) 1969 Well Visit 65+ 08/10/2015 Covid-19 Vaccine (2023-2 5 season) 2023 03/15/2023, 02/16/2022, 03/18/2021, Additional history exists Influenza Vaccine (Season Ended) 2024 03/15/2023, 02/16/2022, 03/18/2021, Additional history exists Fall Risk Assessment 08/12/2025 08/12/2024 Zoster Vaccine Completed 08/07/2020, 04/30, 01/26/2014 Abdominal Aortic Aneurysm (A AA) Screen Completed 06/21/2024 Hepatitis C Screening Completed 06/22/2024 Medical Devices Implanted Type Area Hydrotel Operator Device Identifier Shelf Expiration Date Model / Serial / Lot Terumo Cardio Vascular Gelweave 10mm 30cm Suture Retention Unique Hydrolyzable Abdomen [id number] - [id number] - [id number] Implanted:Qty: 1 on 07/30/2024 by Nick Veliz MD at [facility] Other - see comments N/A: Heart Terumo Cardio Vascular [id number] 04/29/2027 [id number] / [id number] / [id number] Atricure Device Closure Atriclip Nitinol Polyester 45 D L35mm L6cm Flexible Shaft Plunger Home Health Aide Caregiver Left Atrial Appendage Exclusion System [id number] - [id number] Implanted:Qty: 1 on 07/30/2024 by Nick Veliz MD at [facility] Other - see comments N/A: Heart Atricure 04/30/2027 [id number] / [id number] / [id number] [employer] Ben-Cristi ds 32mm 39.6mm 31.9mm 70.4mm Flexible Band Template [id number] - [id number] - [id number] Implanted:Qty: 1 on 07/30/2024 by Nick Veliz MD at [facility] Other - see comments N/A: Mitral Valve [employer] [id number] 10/16/2027 [id number] / [id number] / 0 [employer] Kit Ventricular Assist Device Pump Percutaneous Impella 5.5 Smartassist [id number] - [id number] - [id number] Implanted:Qty: 1 on 07/30/2024 by Nick Veliz MD at [facility] Other - see comments N/A: Heart [employer] [id number] 12/28/2025 [id number] / [id number] / [id number] Description:S/B Clinical Tri al device [id number] IMPELLA 5.5 [id number] per [facility] Trial Production Internship [employer] Magna Ease 25mm [id number] - [id number] - [id number] Implanted:Qty: 1 on 07/30/2024 by Nick Veliz MD at [facility] Prosthetic Valve N/A: Aortic Valve [employer] [id number] 10/17/2027 [id number] / [id number] / 0 Procedures Procedure Name Priority Date/Time [...] CHEMISTRIES, ARTERIAL Routine 07/30/2024 10:08 AM CDT NE AN PROCEDURE PLACEHOLDER Routine 07/30/2024 9:54 AM [...] HEPATITIS C ANTIBODY Routine 06/22/2024 5:[address] CHEST ABDOMEN PELVIS W CONTRAST ED 06/21/2024 12:38 PM CHAIN PEGGER from Last 3 Months or Most Recently [...] Juan Pillai MD, PHD us Azul Armijo TECHNICIAN AUTOMATED EQUIPMENT IMG XR PROCEDURES Final Re sult * [...] 09/02/2024 11:31 AM CDT us Azul Armijo TECHNICIAN AUTOMATED EQUIPMENT LAB BLOOD ORDERABLES Final Result [facility] [place] [address] * (ABNORMAL) Pro B-type natriuretic peptide (09/02/2024 [...] Armijo NP LAB BLOOD ORDERABLES Final Result [facility] [place] [address] * (ABNORMAL) CBC without differential (09/02/2024 10:50 AM CDT) WBC 13.59(H) 3.80 - 9.90 K/cumm Hgb 10.2(L) 13.0 - 17.5 g/dL [facility] Hct 31.2(L) 38.9 - 50.3 % [facility] Plt 396 150 - 400 K/cumm [facility] MPV 10.1 9.1 - 12.3 fL [facility] RBC 3.25(L) 4.30 - 5.80 M/cumm [facility] MCV 96.0 81.3 - 96.4 fL [facility] MCH 31.4 27.1 - 33.3 pg [facility] MCHC 32.7 32.3 - 35.7 g/dL [facility] RDW CV 13.3 11.1 - 14.9 % [facility] RDW SD 47.5 35.7 - 48.1 fL [facility] NRBC abs 0.00 0.00 - 0.01 K/cumm [facility] Blood 09/02/2024 10:5 0 AM CDT 09/02/2024 11:31 AM CDT Azul Armijo NP LAB BLOOD ORDERABLES Final Result Performing Organization Address [facility] de Phone Number [facility] [place] [address] * Lactate dehydrogenase (LD) (09/02/2024 10:50 AM CDT) Lactate dehydrogenase (LDH) 245 100 - 250 Units/L Blood 09/02/2024 10:5 0 AM CDT 09/02/2024 11:31 AM CDT Azul Armijo NP LAB BLOOD ORDERABLES Final Result Performing Organization Address [facility] de Phone Number [facility] Department [place] [address] * (ABNORMAL) Comprehensive metabolic panel (09/02/2024 10:50 AM CDT) Pathologist [facility] Sodium 135 135 - 145 mmol/L Potassium, pl 4.9 3.3 - 4.9 mmol/L [facility] Chloride 93(L) 97 - 110 mmol/L [facility] CO2 30 22 - 32 mmol/L [facility] Anion gap 12 2 - 15 mmol/L [facility] BUN 13 6 - 25 mg/dL [facility] Creatinine 1.40(H) 0.80 - 1.30 mg/dL [facility] Glucose 106 70 - 199 mg/dL [facility] Comment: Interpretive Data Fasting glucose >/= 126 [...] 2022. Calcium 9.5 8.5 - 10.3 mg/dL [facility] Bilirubin, total 0.4 0.1 - 1.2 mg/dL [facility] Protein, pl 8.0 6.5 - 8.5 g/dL [facility] Albumin 3.5 3.5 - 5.0 g/dL [facility] Alk phos 103 40 - 130 Units/L [facility] ALT 14 7 - 55 Units/L [facility] AST 24 10 - 50 Units/L [facility] Blood 09/02/2024 10:5 0 AM CDT 09/02/2024 11:31 AM CDT us Azul Armijo TECHNICIAN AUTOMATED EQUIPMENT LAB BLOOD ORDERABLES Final Result [facility] One [facility] [place] [address] * (ABNORMAL) Pro B-type natriuretic peptide (08/12/2024 [...] AM CDT 08/12/2024 10:42 AM CDT Narrative [facility] - 08/12/2024 11:19 AM CDT For IMPACT trial do not delete. us Nick Veliz MD LAB BLOOD ORDERABLES Fin al Result [facility] [place] [address] * TRANSTHORACIC ECHO (TTE) COMPLETE W DOPPLER/CF W CONTRAST (08/12/2024 8:32 AM CDT) Anatomical Region Laterality Modality Ultrasound 08/12/2024 7:10 AM CDT Narrative 08/13/2024 7:58 AM CDT [facility] [place] [address] Transthoracic Echocardiographic Report Patient Name: SHEY SHAH C : 1950 (74y ) Gender: M Study Date: 08/12/2024 07:10:06 AM Ht(Inch): 73 Wt(Lb): 195.99 BSA: 2.14 Video Clerk: Raul Roque RDCS Location: [id number] Order Provider: TY WEINBERG Heart Rate: 78 [...] Procedure Note Yash Palmer MD - 08/13/2024 [facility] [place] [address] Transthoracic Echocardiographic Report Patient Name: SHEY SHAH C : 1950 (74y ) Gender: M Study Date: 08/12/2024 07:10:06 AM Ht(Inch): 73 Wt(Lb): 195.99 BSA: 2.14 Video Clerk: Raul Roque [facility] Location: [id number] Order Provider: TY WEINBERG Heart Rate: 78 [...] cm2 RA Volume 47.13 ml MV Decel Xsmp928.22 msec [ 104.00 - 258.00 ] RA [...] Result * eGFR (08/11/2024 8:16 PM CDT) Pathologist [facility] eGFR 65 >=60 mL/min/1. 73 m2 Comment: [...] 08/11/2024 8:50 PM CDT us Humza Fernandez TECHNICIAN AUTOMATED EQUIPMENT LAB BLOOD ORDERABLES Final Result [facility] One [facility] [place] [address] * (ABNORMAL) CBC without differential (08/11/2024 8:16 PM CDT) Pathologist [facility] WBC 13.80(H) 3.80 - 9.90 K/cumm Hgb 9.5(L) 13.0 - 17.5 g/dL [facility] Hct 29.3(L) 38.9 - 50.3 % [facility] Plt 361 150 - 400 K/cumm [facility] MPV 10.3 9.1 - 12.3 fL [facility] RBC 2.88(L) 4.30 - 5.80 M/cumm [facility] MCV 101.7(H) 81.3 - 96.4 fL [facility] MCH 33.0 27.1 - 33.3 pg [facility] MCHC 32.4 32.3 - 35.7 g/dL [facility] RDW CV 14.2 11.1 - 14.9 % [facility] RDW SD 52.5(H) 35.7 - 48.1 fL [facility] NRBC abs 0.00 0.00 - 0.01 K/cumm [facility] Blood 08/11/2024 8:16 PM CDT 08/11/2024 8:53 PM CDT us Alanna Dominguez TECHNICIAN AUTOMATED EQUIPMENT LAB BLOOD ORDERABLES Final R esult Performing Organization Address City/[facility]/ZIP Co de Phone Number [facility] Department [place] [address] * Type and screen (08/11/2024 8:16 PM CDT) ABO Rh A Positive Kumar, indirect Negative [facility] Blood 08/11/2024 8:16 PM CDT 08/11/2024 9:36 PM CDT Narrative [facility] - 08/11/2024 10:35 PM CDT Has the patient had Daratumumab or Isatuximab in the past 6 months?->Unknown us Alanna Dominguez TECHNICIAN AUTOMATED EQUIPMENT LAB BLOOD BANK TEST ORDERABL ES Final Result Performing Organization Address [facility] Co de Phone Number [facility] Department [place] [address] * Phosphorus (08/11/2024 8:16 PM CDT) Phosphorus, pl 3.4 2.3 - 4.5 mg/dL Blood 08/11/2024 8:16 PM CDT 08/11/2024 8:50 PM CDT us Alanna Dominguez TECHNICIAN AUTOMATED EQUIPMENT LAB BLOOD ORDERABLES Final R esult Performing Organization Address City/[facility]/ZIP Co de Phone Number [facility] [place] [address] * Magnesium (08/11/2024 8:16 PM CDT) [facility] Magnesium 1.9 1.4 - 2.5 mg/dL Blood 08/11/2024 8:16 PM CDT 08/11/2024 8:50 PM CDT us Yen Mccoy TECHNICIAN AUTOMATED EQUIPMENT LAB BLOOD ORDERABLES Final Result [facility] [place] [address] * Basic metabolic panel (08/11/2024 8:16 PM CDT) [facility] Sodium 136 135 - 145 mmol/L Potassium, pl 3.9 3.3 - 4.9 mmol/L [facility] Chloride 97 97 - 110 mmol/L [facility] CO2 30 22 - 32 mmol/L [facility] Anion gap 9 2 - 15 mmol/L [facility] BUN 20 6 - 25 mg/dL [facility] Creatinine 1.17 0.80 - 1.30 mg/dL [facility] Glucose 169 70 - 199 mg/dL [facility] Comment: Interpretive Data Fasting glucose >/= 126 [...] 2022. Calcium 9.0 8.5 - 10.3 mg/dL [facility] Blood 08/11/2024 8:16 PM CDT 08/11/2024 8:50 PM CDT us Humza Fernandez TECHNICIAN AUTOMATED EQUIPMENT LAB BLOOD ORDERABLES Final Result Performing Organization Address City/[facility] Co de Phone Number [facility] [place] [address] * eGFR (08/11/2024 9:02 AM CDT) eGFR [...] CDT 08/11/2024 9:55 AM CDT Humza Fernandez TECHNICIAN AUTOMATED EQUIPMENT LAB BLOOD ORDERABLES Final Result Performing Organization Address [facility]/ZIP Co de Phone Number [facility] [place] [address] * Basic metabolic panel (08/11/2024 9:02 AM CDT) Sodium 140 135 - 145 mmol/L Potassium, pl 3.8 3.3 - 4.9 mmol/L [facility] Chloride 99 97 - 110 mmol/L [facility] CO2 31 22 - 32 mmol/L [facility] Anion gap 10 2 - 15 mmol/L [facility] BUN 16 6 - 25 mg/dL [facility] Creatinine 1.14 0.80 - 1.30 mg/dL [facility] Glucose 109 70 - 199 mg/dL [facility] Comment: Interpretive Data Fasting glucose >/= 126 [...] 2022. Calcium 9.3 8.5 - 10.3 mg/dL [facility] Blood 08/11/2024 9:02 AM CDT 08/11/2024 9:55 AM CDT us Humza Fernandez TECHNICIAN AUTOMATED EQUIPMENT LAB BLOOD ORDERABLES Final Result [facility] One [facility] [place] [address] * Infection Prevention Joce auris PCR, surveillance Axilla/Groin (08/11/2024 7:55 AM CDT) Pathologist [facility] Joce auris DNA Not Detected Not Detected [facility] Comment: Interpretive Data Testing performed by [facility] Molecular Infectious Disease Laboratory using the Idalia lui 6800 Joce auris assay. This assay detects DNA from Joce auris using Real-Time PCR. This assay is laboratory developed and is not cleared by the [place] Food and Drug Administration. The performance characteristics have been verified by the [facility] Infectious Disease Laboratory. Axilla/Groin 08/11/2024 7:55 AM CDT 08/11/2024 8:30 AM CDT Narrative [facility] - 08/11/2024 12:57 PM CDT Order placed by [facility] due to ring surveillance. us Instant Order Generic Provider LAB MICROBIOLOGY - GENERAL ORDERABLES Final Result Performing Organization Address [facility] Co de Phone Number [facility] [place] [address] [facility] * eGFR (08/10/2024 10:07 PM CDT) Pathologist [facility] eGFR 60 >=60 mL/min/1. 73 m2 Comment: [...] 08/10/2024 10:37 PM CDT us Humza Fernandez TECHNICIAN AUTOMATED EQUIPMENT LAB BLOOD ORDERABLES Final Result Performing Organization Address [facility] Co de Phone Number [facility] [place] [address] * (ABNORMAL) CBC without differential (08/10/2024 10:07 PM CDT) [facility] WBC 13.89(H) 3.80 - 9.90 K/cumm Hgb 9.8(L) 13.0 - 17.5 g/dL [facility] Hct 29.9(L) 38.9 - 50.3 % [facility] Plt 338 150 - 400 K/cumm [facility] MPV 10.4 9.1 - 12.3 fL [facility] RBC 2.96(L) 4.30 - 5.80 M/cumm [facility] MCV 101.0(H) 81.3 - 96.4 fL [facility] MCH 33.1 27.1 - 33.3 pg [facility] MCHC 32.8 32.3 - 35.7 g/dL [facility] RDW CV 14.2 11.1 - 14.9 % [facility] RDW SD 51.6(H) 35.7 - 48.1 fL [facility] NRBC abs 0.00 0.00 - 0.01 K/cumm [facility] Blood 08/10/2024 10:0 7 PM CDT 08/10/2024 10:38 PM CDT Alanna Dominguez TECHNICIAN AUTOMATED EQUIPMENT LAB BLOOD ORDERABLES Final R esult Performing Organization Address City/[facility] Co de Phone Number [facility] [place] [address] * Phosphorus (08/10/2024 10:07 PM CDT) Phosphorus, pl 3.4 2.3 - 4.5 mg/dL Blood 08/10/2024 10:0 7 PM CDT 08/10/2024 10:37 PM CDT Alanna Dominguez TECHNICIAN AUTOMATED EQUIPMENT LAB BLOOD ORDERABLES Final R esult [facility] [place] [address] * Magnesium (08/10/2024 10:07 PM CDT) Magnesium 1.7 1.4 - 2.5 mg/dL Blood 08/10/2024 10:0 7 PM CDT 08/10/2024 10:37 PM CDT Yen Mccoy TECHNICIAN AUTOMATED EQUIPMENT LAB BLOOD ORDERABLES Final Result Performing Organization Address City/[facility]/ZIP Co de Phone Number [facility] [place] [address] * (ABNORMAL) Hepatic function panel (08/10/2024 10:07 PM CDT) [facility] Bilirubin, total 0.6 0.1 - 1.2 mg/dL Bilirubin, direct 0.2 0.1 - 0.3 mg/dL [facility] Protein, pl 6.5 6.5 - 8.5 g/dL [facility] Albumin 2.9(L) 3.5 - 5.0 g/dL [facility] Alk phos 81 40 - 130 Units/L [facility] ALT 35 7 - 55 Units/L [facility] AST 36 10 - 50 Units/L [facility] Blood 08/10/2024 10:0 7 PM CDT 08/10/2024 10:37 PM CDT Onelia Arellano TECHNICIAN AUTOMATED EQUIPMENT LAB BLOOD ORDERABLES Final Result Performing Organization Address [facility] Co de Phone Number [facility] Department [place] [address] * (ABNORMAL) Basic metabolic panel (08/10/2024 10:07 PM CDT) [facility] Sodium 135 135 - 145 mmol/L Potassium, pl 4.4 3.3 - 4.9 mmol/L [facility] Chloride 95(L) 97 - 110 mmol/L [facility] CO2 28 22 - 32 mmol/L [facility] Anion gap 12 2 - 15 mmol/L [facility] BUN 18 6 - 25 mg/dL [facility] Creatinine 1.25 0.80 - 1.30 mg/dL [facility] Glucose 115 70 - 199 mg/dL [facility] Comment: Interpretive Data Fasting glucose >/= 126 [...] Calcium 8.6 8.5 - 10.3 mg/dL [facility] Blood 08/10/2024 10:0 7 PM CDT 08/10/2024 10:37 PM CDT us Humza Fernandez NP LAB BLOOD ORDERABLES Final Result Performing Organization Address City/[facility]/ZIP Co de Phone Number [facility] [place] [address] * eGFR (08/10/2024 8:59 AM CDT) eGFR [...] Fernandez NP LAB BLOOD ORDERABLES Final Result [facility] [place] [address] * Basic metabolic panel (08/10/2024 8:59 AM CDT) Sodium 138 135 - 145 mmol/L Potassium, pl 3.8 3.3 - 4.9 mmol/L [facility] Chloride 97 97 - 110 mmol/L [facility] CO2 31 22 - 32 mmol/L [facility] Anion gap 10 2 - 15 mmol/L [facility] BUN 14 6 - 25 mg/dL [facility] Creatinine 1.15 0.80 - 1.30 mg/dL [facility] Glucose 125 70 - 199 mg/dL [facility] Comment: Interpretive Data Fasting glucose >/= 126 [...] 2022. Calcium 8.9 8.5 - 10.3 mg/dL [facility] Blood 08/10/2024 8:59 AM CDT 08/10/2024 9:33 AM CDT us Humza Fernandez TECHNICIAN AUTOMATED EQUIPMENT LAB BLOOD ORDERABLES Final Result [facility] [place] [address] * eGFR (2024 8:38 PM CDT) Pathologist [facility] eGFR 67 >=60 mL/min/1. 73 [...] 2024 10:37 PM CDT us Humza Fernandez TECHNICIAN AUTOMATED EQUIPMENT LAB BLOOD ORDERABLES Final Result Performing Organization Address City/State/[facility] Co de Phone Number [facility] One [facility] [place] [address] * (ABNORMAL) CBC without differential (2024 8:38 PM CDT) WBC 10.80(H) 3.80 - 9.90 K/cumm Hgb 9.5(L) 13.0 - 17.5 g/dL [facility] Hct 29.1(L) 38.9 - 50.3 % [facility] Plt 366 150 - 400 K/cumm [facility] MPV 10.7 9.1 - 12.3 fL [facility] RBC 2.90(L) 4.30 - 5.80 M/cumm [facility] MCV 100.3(H) 81.3 - 96.4 fL [facility] MCH 32.8 27.1 - 33.3 pg [facility] MCHC 32.6 32.3 - 35.7 g/dL [facility] RDW CV 14.3 11.1 - 14.9 % [facility] RDW SD 52.3(H) 35.7 - 48.1 fL [facility] NRBC abs 0.00 0.00 - 0.01 K/cumm [facility] Blood 2024 8:38 PM CDT 2024 9:41 PM CDT Alanna Dominguez TECHNICIAN [employer]OMATED EQUIPMENT LAB BLOOD ORDERABLES Final R esult Performing Organization Address [facility] Co de Phone Number [facility] [place] [address] * Phosphorus (2024 8:38 PM CDT) [facility] Phosphorus, pl 3.1 2.3 - 4.5 mg/dL Blood 2024 8:38 PM CDT 2024 10:37 PM CDT Alanna Dominguez TECHNICIAN AUTOMATED EQUIPMENT LAB BLOOD ORDERABLES Final R esult Performing Organization Address [facility] Co de Phone Number [facility] [place] [place] [address] * Magnesium (2024 8:38 PM CDT) [facility] Magnesium 1.8 1.4 - 2.5 mg/dL Blood 2024 8:38 PM CDT 2024 10:37 PM CDT Yen Mccoy TECHNICIAN AUTOMATED EQUIPMENT LAB BLOOD ORDERABLES Final Result Performing Organization Address City/[facility] [place] [address] * Basic metabolic panel (2024 8:38 PM CDT) [facility] Sodium 139 135 - 145 mmol/L Potassium, pl 4.4 3.3 - 4.9 mmol/L [facility] Chloride 100 97 - 110 mmol/L [facility] CO2 30 22 - 32 mmol/L [facility] Anion gap 9 2 - 15 mmol/L [facility] BUN 17 6 - 25 mg/dL [facility] Creatinine 1.15 0.80 - 1.30 mg/dL [facility] Glucose 115 70 - 199 mg/dL [facility] Comment: Interpretive Data Fasting glucose >/= 126 [...] 2022. Calcium 8.6 8.5 - 10.3 mg/dL [facility] Blood 2024 8:38 PM CDT 2024 10:37 PM CDT us Humza Fernandez NP LAB BLOOD ORDERABLES Final Result [facility] One [facility] [place] [address] * XR Chest Pa Lateral 2 Views [...] signed by: Maury Jaeger M.D. Vicenta Lundberg TECHNICIAN AUTOMATED EQUIPMENT IMG XR PROCEDURE S Final Result * ECG 12 lead (2024 8:09 AM CDT) Ventricular Rate EKG/Min 73 BPM [facility] Atrial Rate 73 BPM [facility] NE-Interval (MSEC) 190 ms [facility] QRS-Interval (MSEC) 100 ms [facility] QT-Interval (MSEC) 446 ms [facility] QTc 491 ms [facility] P Ola 76 degrees [facility] R Ola 62 degrees [facility] T Ola 19 degrees [facility] Diagnosis Normal sinus rhythm T wave abnormality, consider anterior ischemia Prolonged QT Abnormal ECG Confirmed by Iris SOTO, [facility] ([id number]) on 08/13/2024 1:32:42 PM [facility] 2024 8:09 AM CDT 08/13/2024 1:32 PM CDT Alanna Dominguez TECHNICIAN AUTOMATED EQUIPMENT ECG ORDERABLES Final Result Performing Organization Address [facility] de Phone Number [facility] * Lactate (2024 6:27 AM CDT) Lactate 0.8 0.7 - 2.0 mmol/L Blood 2024 6:27 AM CDT 2024 6:48 AM CDT Nick Veliz MD LAB BLOOD ORDERABLES Fin al Result Performing Organization Address City/[facility] Co de Phone Number [facility] One [facility] [place] [address] * eGFR (08/08/2024 10:48 PM CDT) [facility] eGFR 77 >=60 mL/min/1. 73 [...] Fernandez NP LAB BLOOD ORDERABLES Final Result [facility]ke [facility] Department [place] [address] * (ABNORMAL) CBC without differential (08/08/2024 10:48 PM CDT) [facility] WBC 8.90 3.80 - 9.90 K/cumm Hgb 9.0(L) 13.0 - 17.5 g/dL [facility] Hct 27.0(L) 38.9 - 50.3 % [facility] Plt 292 150 - 400 K/cumm [facility] MPV 10.5 9.1 - 12.3 fL [facility] RBC 2.72(L) 4.30 - 5.80 M/cumm [facility] MCV 99.3(H) 81.3 - 96.4 fL [facility] MCH 33.1 27.1 - 33.3 pg [facility] MCHC 33.3 32.3 - 35.7 g/dL [facility] RDW CV 14.4 11.1 - 14.9 % [facility] RDW SD 51.8(H) 35.7 - 48.1 fL [facility] NRBC abs 0.00 0.00 - 0.01 K/cumm [facility] Blood 08/08/2024 10:4 8 PM CDT 08/08/2024 11:32 PM CDT Alanna Dominguez NP LAB BLOOD ORDERABLES Final R esult Performing Organization Address City/[facility]/ZIP Co de Phone Number [facility] [place] [place] [address] * Type and screen (08/08/2024 10:48 PM CDT) ABO Rh A Positive Kumar, indirect Negative [facility] Blood 08/08/2024 10:4 8 PM CDT 08/08/2024 11:29 PM CDT Narrative [facility] - 2024 12:59 AM CDT Has the patient had Daratumumab or Isatuximab in the past 6 months?->Unknown Alanna Dominguez NP LAB BLOOD BANK TEST ORDERABL ES Final Result [facility] [place] [address] * Phosphorus (08/08/2024 10:48 PM CDT) Phosphorus, pl 3.4 2.3 - 4.5 mg/dL Blood 08/08/2024 10:4 8 PM CDT 08/08/2024 11:32 PM CDT Alanna Dominguez TECHNICIAN AUTOMATED EQUIPMENT LAB BLOOD ORDERABLES Final R esult [facility] Department [place] [address] * Magnesium (08/08/2024 10:48 PM CDT) [facility] Magnesium 1.9 1.4 - 2.5 mg/dL Blood 08/08/2024 10:4 8 PM CDT 08/08/2024 11:32 PM CDT Yen Mccoy TECHNICIAN AUTOMATED EQUIPMENT LAB BLOOD ORDERABLES Final Result Performing Organization Address [facility] Co de Phone Number [facility] Department [place] [address] * (ABNORMAL) Basic metabolic panel (08/08/2024 10:48 PM CDT) [facility] Sodium 137 135 - 145 mmol/L Potassium, pl 4.0 3.3 - 4.9 mmol/L [facility] Chloride 98 97 - 110 mmol/L [facility] CO2 29 22 - 32 mmol/L [facility] Anion gap 10 2 - 15 mmol/L [facility] BUN 17 6 - 25 mg/dL [facility] Creatinine 1.02 0.80 - 1.30 mg/dL [facility] Glucose 110 70 - 199 mg/dL [facility] Comment: Interpretive Data Fasting glucose >/= 126 [...] 2022. Calcium 8.1(L) 8.5 - 10.3 mg/dL [facility] Blood 08/08/2024 10:4 8 PM CDT 08/08/2024 11:32 PM CDT us Humza Fernandez TECHNICIAN AUTOMATED EQUIPMENT LAB BLOOD ORDERABLES Final Result Performing Organization Address [facility] Co de Phone Number [facility] Department [place] [address] * Infection Prevention Joce auris PCR, surveillance Axilla/Groin (08/08/2024 12:43 PM CDT) Joce auris DNA Not Detected Not Detected [facility] Comment: Interpretive Data Testing performed by [facility] Molecular Infectious Disease Laboratory using the boarding passas [employer] Joce auris assay. This assay detects DNA from Joce auris using Real-Time PCR. This assay is laboratory developed and is not cleared by the [place] Food and Drug Administration. The performance characteristics have been verified by the [facility] Infectious Disease [facility]. Axilla/Groin 08/08/2024 12:4 3 PM CDT 08/08/2024 1:23 PM CDT Herson Perla MD LAB MICROBIOLOGY - GENERAL ORDER VAHID Final Result Performing Organization Address [facility] Co de Phone Number [facility] Department [place] [address] [facility] * eGFR (08/08/2024 8:02 AM CDT) eGFR 77 >=60 mL/min/1. 73 m2 Comment: Interpretive Data Reference Interval Normal >/= 90 mL/min/1.73m2 Mildly decreased* 60 - 89 mL/min/1.73m2 Mildly to moderately decreased 45 - 59 mL/min/1.73m2 Moderately to severely decreased 30 - 44 mL/min/1.73m2 Severely decreased 15 - 29 mL/min/1.73m2 Kidney Failure < 15 mL/min/1.73m2 *Relative to young adult level Estimated glomerular filtration rate is determined by the 2021 CKD-EPI equation recommended by the National Kidney Foundation (A Unifying Approach to GFR Estimation: Recommendations of the NKF-ASK Task Force on Reassessing the Inclusion of Race in Diagnosing Kidney Disease, KLAUSSAmy 2020). The CKD-EPI equation should not be used for patients with unstable renal function and has not been validated in children and those over 70. Current interpretive data was last reviewed 2021. Blood 08/08/2024 8:02 AM CDT 08/08/2024 8:45 AM CDT us Humza Fernandez TECHNICIAN AUTOMATED EQUIPMENT LAB BLOOD ORDERABLES Final Result [facility] One [facility] [place] [address] * (ABNORMAL) Basic metabolic panel (08/08/2024 8:02 AM CDT) Pathologist [facility] Sodium 139 135 - 145 mmol/L Potassium, pl 4.1 3.3 - 4.9 mmol/L [facility] Chloride 100 97 - 110 mmol/L [facility] CO2 30 22 - 32 mmol/L [facility] Anion gap 9 2 - 15 mmol/L [facility] BUN 15 6 - 25 mg/dL [facility] Creatinine 1.03 0.80 - 1.30 mg/dL [facility] Glucose 107 70 - 199 mg/dL [facility] Comment: Interpretive Data Fasting glucose >/= 126 [...] 2022. Calcium 8.4(L) 8.5 - 10.3 mg/dL [facility] Blood 08/08/2024 8:02 AM CDT 08/08/2024 8:45 AM CDT us Humza Fernandez TECHNICIAN AUTOMATED EQUIPMENT LAB BLOOD ORDERABLES Final Result Performing Organization Address City/[facility] Co de Phone Number [facility] One [facility] Department [place] [address] * ECG 12 lead (08/08/2024 3:37 AM CDT) Pathologist [facility] Ventricular Rate EKG/Min 76 BPM [facility] Atrial Rate 76 BPM [facility] NE-Interval (MSEC) 182 ms [facility] QRS-Interval (MSEC) 100 ms [facility] QT-Interval (MSEC) 458 ms [facility] QTc 515 ms [facility] P Ola 97 degrees [facility] R Ola 65 degrees [facility] T Ola 15 degrees [facility] Diagnosis Normal sinus rhythm Possible Lateral infarct , age undetermined Poor r wave progression associated with abnormal lead placement, obesity, pulmonary disease, anterior infarction. Prolonged QT Abnormal ECG When compared with ECG of 06-AUG-2024 05:53, Borderline criteria for Lateral infarct are now Present T wave inversion more evident in Anterior leads Confirmed by GAVINO KELLEY M.D ([id number]) on 08/08/2024 1:03:32 PM [facility] 08/08/2024 3:37 AM CDT 08/08/2024 1:03 PM CDT us Alanna Dominguez TECHNICIAN AUTOMATED EQUIPMENT ECG ORDERABLES Final Result Performing Organization Address [facility] Co de Phone Number [facility] * eGFR (08/07/2024 10:12 PM CDT) [...] 08/07/2024 10:48 PM CDT us Humza Fernandez NP LAB BLOOD ORDERABLES Final Result [facility] One [facility] [place] [address] * (ABNORMAL) CBC without differential (08/07/2024 10:12 PM CDT) WBC 8.80 3.80 - 9.90 K/cumm Hgb 8.6(L) 13.0 - 17.5 g/dL [facility] Hct 26.5(L) 38.9 - 50.3 % [facility] Plt 247 150 - 400 K/cumm [facility] MPV 11.0 9.1 - 12.3 fL [facility] RBC 2.59(L) 4.30 - 5.80 M/cumm [facility] MCV 102.3(H) 81.3 - 96.4 fL [facility] MCH 33.2 27.1 - 33.3 pg [facility] MCHC 32.5 32.3 - 35.7 g/dL [facility] RDW CV 14.4 11.1 - 14.9 % [facility] RDW SD 53.0(H) 35.7 - 48.1 fL [facility] NRBC abs 0.00 0.00 - 0.01 K/cumm [facility] Blood 08/07/2024 10:1 2 PM CDT 08/07/2024 10:49 PM CDT Alanna Dominguez TECHNICIAN AUTOMATED EQUIPMENT LAB BLOOD ORDERABLES Final R esult Performing Organization Address [facility] Co de Phone Number [facility] [place] [address] * Phosphorus (08/07/2024 10:12 PM CDT) Phosphorus, pl 3.4 2.3 - 4.5 mg/dL Blood 08/07/2024 10:1 2 PM CDT 08/07/2024 10:48 PM CDT Alanna Dominguez TECHNICIAN AUTOMATED EQUIPMENT LAB BLOOD ORDERABLES Final R esult Performing Organization Address [facility] de Phone Number [facility] [place] [address] * Magnesium (08/07/2024 10:12 PM CDT) Pathologist [facility] Magnesium 1.9 1.4 - 2.5 mg/dL Blood 08/07/2024 10:1 2 PM CDT 08/07/2024 10:48 PM CDT Yen Mccoy TECHNICIAN AUTOMATED EQUIPMENT LAB BLOOD ORDERABLES Final Result Performing Organization Address [facility] Co de Phone Number [facility] [place] [address] * (ABNORMAL) Hepatic function panel (08/07/2024 10:12 PM CDT) Bilirubin, total 0.7 0.1 - 1.2 mg/dL Bilirubin, direct 0.3 0.1 - 0.3 mg/dL [facility] Protein, pl 6.0(L) 6.5 - 8.5 g/dL [facility] Albumin 2.7(L) 3.5 - 5.0 g/dL [facility] Alk phos 65 40 - 130 Units/L [facility] ALT 34 7 - 55 Units/L [facility] AST 41 10 - 50 Units/L [facility] Blood 08/07/2024 10:1 2 PM CDT 08/07/2024 10:48 PM CDT us Onelia Arellano TECHNICIAN AUTOMATED EQUIPMENT LAB BLOOD ORDERABLES Final Result [facility] [place] [address] * (ABNORMAL) Basic metabolic panel (08/07/2024 10:12 PM CDT) [facility] Sodium 139 135 - 145 mmol/L Potassium, pl 4.0 3.3 - 4.9 mmol/L [facility] Chloride 101 97 - 110 mmol/L [facility] CO2 28 22 - 32 mmol/L [facility] Anion gap 10 2 - 15 mmol/L [facility] BUN 17 6 - 25 mg/dL [facility] Creatinine 1.03 0.80 - 1.30 mg/dL [facility] Glucose 117 70 - 199 mg/dL [facility] Comment: Interpretive Data Fasting glucose >/= 126 [...] 2022. Calcium 8.4(L) 8.5 - 10.3 mg/dL [facility] Blood 08/07/2024 10:1 2 PM CDT 08/07/2024 10:48 PM CDT us Humza Fernandez TECHNICIAN AUTOMATED EQUIPMENT LAB BLOOD ORDERABLES Final Result Performing Organization Address City/[facility]/ZIP Co de Phone Number [facility] Department [place] [address] * eGFR (08/07/2024 8:19 AM CDT) Pathologist [facility] eGFR 78 >=60 mL/min/1. 73 m2 Comment: [...] 08/07/2024 8:54 AM CDT us Humza Fernandez TECHNICIAN AUTOMATED EQUIPMENT LAB BLOOD ORDERABLES Final Result [facility] One [facility] [place] [address] * Basic metabolic panel (08/07/2024 8:19 AM CDT) Pathologist [facility] Sodium 138 135 - 145 mmol/L Potassium, pl 3.9 3.3 - 4.9 mmol/L [facility] Chloride 99 97 - 110 mmol/L [facility] CO2 29 22 - 32 mmol/L [facility] Anion gap 10 2 - 15 mmol/L [facility] BUN 16 6 - 25 mg/dL [facility] Creatinine 1.02 0.80 - 1.30 mg/dL [facility] Glucose 114 70 - 199 mg/dL [facility] Comment: Interpretive Data Fasting glucose >/= 126 [...] 2022. Calcium 8.8 8.5 - 10.3 mg/dL [facility] Blood 08/07/2024 8:19 AM CDT 08/07/2024 8:54 AM CDT us Humza Fernandez NP LAB BLOOD ORDERABLES Final Result [facility] One [facility] [place] [address] * eGFR (08/06/2024 9:13 PM CDT) eGFR [...] CDT 08/06/2024 9:53 PM CDT Alanna Dominguez TECHNICIAN AUTOMATED EQUIPMENT LAB BLOOD ORDERABLES Final R ult Performing Organization Address City/[facility]/ZIP Co de Phone Number [facility] Department [place] [address] * (ABNORMAL) CBC without differential (08/06/2024 9:13 PM CDT) Pathologist [facility] WBC 9.16 3.80 - 9.90 K/cumm Hgb 8.2(L) 13.0 - 17.5 g/dL [facility] Hct 25.1(L) 38.9 - 50.3 % [facility] Plt 200 150 - 400 K/cumm [facility] MPV 11.3 9.1 - 12.3 fL [facility] RBC 2.49(L) 4.30 - 5.80 M/cumm [facility] MCV 100.8(H) 81.3 - 96.4 fL [facility] MCH 32.9 27.1 - 33.3 pg [facility] MCHC 32.7 32.3 - 35.7 g/dL [facility] RDW CV 14.4 11.1 - 14.9 % [facility] RDW SD 52.8(H) 35.7 - 48.1 fL [facility] NRBC abs 0.00 0.00 - 0.01 K/cumm [facility] Blood 08/06/2024 9:13 PM CDT 08/06/2024 9:52 PM CDT us Alanna Dominguez TECHNICIAN AUTOMATED EQUIPMENT LAB BLOOD ORDERABLES Final R esult [facility] [place] [address] * Phosphorus (08/06/2024 9:13 PM CDT) Phosphorus, pl 2.8 2.3 - 4.5 mg/dL Blood 08/06/2024 9:13 PM CDT 08/06/2024 9:53 PM CDT Alanna Dominguez TECHNICIAN AUTOMATED EQUIPMENT LAB BLOOD ORDERABLES Final R esult Performing Organization Address City/[facility] Co de Phone Number [facility] Department [place] [address] * Magnesium (08/06/2024 9:13 PM CDT) [facility] Magnesium 1.8 1.4 - 2.5 mg/dL Blood 08/06/2024 9:13 PM CDT 08/06/2024 9:53 PM CDT Alanna Dmoinguez TECHNICIAN AUTOMATED EQUIPMENT LAB BLOOD ORDERABLES Final R esult Performing Organization Address [facility] de Phone Number [facility] Department [place] [address] * Basic metabolic panel (08/06/2024 9:13 PM CDT) [facility] Sodium 138 135 - 145 mmol/L Potassium, pl 4.0 3.3 - 4.9 mmol/L [facility] Chloride 101 97 - 110 mmol/L [facility] CO2 27 22 - 32 mmol/L [facility] Anion gap 10 2 - 15 mmol/L [facility] BUN 19 6 - 25 mg/dL [facility] Creatinine 1.06 0.80 - 1.30 mg/dL [facility] Glucose 126 70 - 199 mg/dL [facility] Comment: Interpretive Data Fasting glucose >/= 126 [...] 2022. Calcium 8.6 8.5 - 10.3 mg/dL [facility] Blood 08/06/2024 9:13 PM CDT 08/06/2024 9:53 PM CDT us Alanna Dominguez NP LAB BLOOD ORDERABLES Final R esult [facility] One [facility] [place] [address] * XR Chest Pa Lateral 2 Views [...] by: Sg Pineda M.D. us Onelia Arellano TECHNICIAN AUTOMATED EQUIPMENT IMG XR PROCEDURES Final Re sult * ECG 12 lead (08/06/2024 5:53 AM CDT) Ventricular Rate EKG/Min 74 BPM [facility] Atrial Rate 74 BPM [facility] NE-Interval (MSEC) 204 ms [facility] QRS-Interval (MSEC) 88 ms [facility] QT-Interval (MSEC) 468 ms [facility] QTc 519 ms [facility] P Ola 17 degrees [facility] R Ola 57 degrees [facility] T Ola 12 degrees [facility] Diagnosis Normal sinus rhythm Nonspecific T wave abnormality Prolonged QT Abnormal ECG When compared with ECG of 05-AUG-2024 14:54, (unconfirmed) No significant change was found Confirmed by SIVA SILVERMAN M.D ([id number]) on 08/06/2024 4:15:19 PM [facility] 08/06/2024 5:53 AM CDT 08/06/2024 4:15 PM CDT Alanna Dominguez NP ECG ORDERABLES Final Result [facility] * eGFR (08/05/2024 8:19 PM CDT) eGFR [...] NP LAB BLOOD ORDERABLES Final R esult [facility] One [facility] [place] [address] * (ABNORMAL) CBC without differential (08/05/2024 8:19 PM CDT) WBC 10.16(H) 3.80 - 9.90 K/cumm Hgb 8.2(L) 13.0 - 17.5 g/dL [facility] Hct 24.9(L) 38.9 - 50.3 % [facility] Plt 145(L) 150 - 400 K/cumm [facility] MPV 11.3 9.1 - 12.3 fL [facility] RBC 2.42(L) 4.30 - 5.80 M/cumm [facility] MCV 102.9(H) 81.3 - 96.4 fL [facility] MCH 33.9(H) 27.1 - 33.3 pg [facility] MCHC 32.9 32.3 - 35.7 g/dL [facility] RDW CV 14.5 11.1 - 14.9 % [facility] RDW SD 54.6(H) 35.7 - 48.1 fL [facility] NRBC abs 0.00 0.00 - 0.01 K/cumm [facility] Blood 08/05/2024 8:19 PM CDT 08/05/2024 8:48 PM CDT us Alanna Dominguez TECHNICIAN AUTOMATED EQUIPMENT LAB BLOOD ORDERABLES Final R esult Performing Organization Address [facility] [place] [address] * Type and screen (08/05/2024 8:19 PM CDT) Kumar, indirect Negative ABO Rh A Positive [facility] Blood 08/05/2024 8:19 PM CDT 08/05/2024 8:51 PM CDT Narrative [facility] - 08/05/2024 10:00 PM CDT Has the patient had Daratumumab or Isatuximab in the past 6 months?->Unknown us Alanna Dominguez TECHNICIAN AUTOMATED EQUIPMENT LAB BLOOD BANK TEST ORDERABL ES Final Result Performing Organization Address [facility] Co de Phone Number [facility] Department [place] [address] * Phosphorus (08/05/2024 8:19 PM CDT) Phosphorus, pl 2.5 2.3 - 4.5 mg/dL Blood 08/05/2024 8:19 PM CDT 08/05/2024 8:47 PM CDT us Alanna Dominguez TECHNICIAN AUTOMATED EQUIPMENT LAB BLOOD ORDERABLES Final R esult Performing Organization Address [facility] Co de Phone Number [facility] [place] [address] * Magnesium (08/05/2024 8:19 PM CDT) Magnesium 1.8 1.4 - 2.5 mg/dL Blood 08/05/2024 8:19 PM CDT 08/05/2024 8:47 PM CDT us Alanna Dominguez TECHNICIAN AUTOMATED EQUIPMENT LAB BLOOD ORDERABLES Final R esult Performing Organization Address [facility]/ZIP Co de Phone Number [facility] Department [place] [address] * (ABNORMAL) Basic metabolic panel (08/05/2024 8:19 PM CDT) Pathologist [facility] Sodium 139 135 - 145 mmol/L Potassium, pl 4.0 3.3 - 4.9 mmol/L [facility] Chloride 103 97 - 110 mmol/L [facility] CO2 27 22 - 32 mmol/L [facility] Anion gap 9 2 - 15 mmol/L [facility] BUN 21 6 - 25 mg/dL [facility] Creatinine 0.95 0.80 - 1.30 mg/dL [facility] Glucose 149 70 - 199 mg/dL [facility] Comment: Interpretive Data Fasting glucose >/= 126 [...] 2022. Calcium 8.4(L) 8.5 - 10.3 mg/dL [facility] Blood 08/05/2024 8:19 PM CDT 08/05/2024 8:47 PM CDT Alanna Dominguez TECHNICIAN AUTOMATED EQUIPMENT LAB BLOOD ORDERABLES Final R esult Performing Organization Address [facility]/ZIP Co de Phone Number [facility] [place] [address] * Infection Prevention Joce auris PCR, surveillance Axilla/Groin (08/05/2024 4:41 PM CDT) Pathologist [facility] Joce auris DNA Not Detected Not Detected [facility] Comment: Interpretive Data Testing performed by [facility] Molecular Infectious Disease Laboratory using the Idalia lui 6800 Joce auris assay. This assay detects DNA from Joce auris using Real-Time PCR. This assay is laboratory developed and is not cleared by the [facility] Food and Drug Administration. The performance characteristics have been verified by the [facility] Molecular Infectious Disease Laboratory. Axilla/Groin 08/05/2024 4:41 PM CDT 08/05/2024 5:24 PM CDT Herson Perla MD LAB MICROBIOLOGY - GENERAL ORDER VAHID Final Result Performing Organization Address City/[facility]/ZIP Co de Phone Number MARGI [facility] [place] [address] [facility] * ECG 12 lead (08/05/2024 2:54 PM CDT) Ventricular Rate EKG/Min 76 BPM [facility] Atrial Rate 76 BPM [facility] NE-Interval (MSEC) 194 ms [facility] QRS-Interval (MSEC) 82 ms [facility] QT-Interval (MSEC) 454 ms [facility] QTc 510 ms [facility] P Ola 67 degrees [facility] R Ola 62 degrees [facility] T Ola 11 degrees [facility] Diagnosis Normal sinus rhythm Nonspecific T wave abnormality Prolonged QT Abnormal ECG Confirmed by SIVA SILVERMAN M.D ([id number]) on 08/07/2024 10:45:07 PM [facility] 08/05/2024 2:54 PM CDT 08/07/2024 10:45 PM CDT Nick Veliz MD ECG ORDERABLES Final Re sult [facility] * Potassium, whole blood (08/05/2024 12:04 PM CDT) Potassium, bld 4.0 3.3 - 4.9 mmol/L Blood 08/05/2024 12:0 4 PM CDT 08/05/2024 12:08 PM CDT us Arabella Gary NP LAB BLOOD ORDERABLES Fi nal Result Performing Organization Address [facility] Co de Phone Number [facility] [place] [address] * POCT glucose (08/05/2024 12:04 PM CDT) Glucose, POC 125 70 - 199 mg/dL Blood 08/05/2024 12:0 4 PM CDT 08/05/2024 12:04 PM CDT Nick Veliz MD LAB POCT ORDERABLES - DE VICE Final Result Performing Organization Address [facility] Phone Number [facility] [place] [address] * POCT glucose (08/05/2024 8:07 AM CDT) Glucose, POC 123 70 - 199 mg/dL Blood 08/05/2024 8:07 AM CDT 08/05/2024 8:07 AM CDT Nick Veliz MD LAB POCT ORDERABLES - DE VICE Final Result Performing Organization Address [facility] [place] [address] * Potassium, whole blood (08/05/2024 8:02 AM CDT) Potassium, bld 4.0 3.3 - 4.9 mmol/L Blood 08/05/2024 8:02 AM CDT 08/05/2024 8:16 AM CDT us Arabella Gary NP LAB BLOOD ORDERABLES Fi nal Result [facility] [place] [address] * Critical Care (08/05/2024 6:15 AM CDT) [...] plan with the patient's team and other medical/reimbursement consultant staff. This time was in addition [...] * Critical Care (08/04/2024 10:03 PM CDT) Malu Iglesias MD - 08/04/2024 10:03 PM CDT Malu [...] plan with the patient's team and other medical/reimbursement consultant staff. This time was in addition [...] POC 43 40 - 50 mmHg [facility] pO2, carlos POC 41 mmHg [facility] Na, POC 136 135 - 145 mmol/L [facility] K POC 4.0 3.3 - 4.9 mmol/L [facility] Comment: Interpretive Data Not all point of care methods assess for hemolysis. Confirm with instrument and retest K+ if not consistent with clinical signs and symptoms. Current Interpretive Data was last revised on 2023. Cl, POC 104 97 - 110 mmol/L [facility] Ionized Ca, POC 4.62 4.50 - 5.10 mg/dL [facility] Glucose, POC 128 70 - 199 mg/dL [facility] Lactate POC 1.1 0.7 - 2.0 mmol/L [facility] O2 Sat, Carlos POC (Vivian) 61 % [facility] Base excess, POC 4.6 mmol/L [facility] HCO3, Carlos POC 29 20 - 30 mmol/L [facility] Hct, POC 29.0(L) 41.4 - 51.6 % [facility] Total Hb, POC 9.5(L) 13.8 - 17.2 g/dL [facility] Blood 08/04/2024 9:41 PM CDT 08/04/2024 9:41 PM CDT us Nick Veliz MD LAB POCT ORDERABLES - DE VICE Final Result [facility] [place] [address] * (ABNORMAL) CBC without differential (08/04/2024 9:18 PM CDT) [facility] WBC 9.65 3.80 - 9.90 K/cumm Hgb 8.4(L) 13.0 - 17.5 g/dL [facility] Hct 25.2(L) 38.9 - 50.3 % [facility] Plt 120(L) 150 - 400 K/cumm [facility] MPV 11.8 9.1 - 12.3 fL [facility] RBC 2.49(L) 4.30 - 5.80 M/cumm [facility] MCV 101.2(H) 81.3 - 96.4 fL [facility] MCH 33.7(H) 27.1 - 33.3 pg [facility] MCHC 33.3 32.3 - 35.7 g/dL [facility] RDW CV 14.6 11.1 - 14.9 % [facility] RDW SD 54.1(H) 35.7 - 48.1 fL [facility] NRBC abs 0.00 0.00 - 0.01 K/cumm [facility] Blood 08/04/2024 9:18 PM CDT 08/04/2024 9:38 PM CDT Fermin ANDERSEN LAB BLOOD ORDERABLES Teetee keith Result Performing Organization Address City/State/[facility] Co de Phone Number [facility] [place] [address] * eGFR (08/04/2024 8:52 PM CDT) [facility] eGFR 89 >=60 mL/min/1. 73 m2 Comment: [...] CDT 08/04/2024 9:04 PM CDT Marilee Sandoval TECHNICIAN AUTOMATED EQUIPMENT LAB BLOOD ORDERABLES Fin al Result Performing Organization Address [facility] Co de Phone Number [facility] Department [place] [address] * Type and screen (08/04/2024 8:52 PM CDT) ABO Rh A Positive Kumar, indirect Negative [facility] Blood 08/04/2024 8:52 PM CDT 08/04/2024 9:19 PM CDT Narrative [facility] - 08/04/2024 10:26 PM CDT Has the patient had Daratumumab or Isatuximab in the past 6 months?->Unknown Fermin De León PA LAB BLOOD BANK TEST ORDER VAHID Final Result Performing Organization Address [facility] Co de Phone Number [facility] Department [place] [address] * Phosphorus (08/04/2024 8:52 PM CDT) Phosphorus, pl 2.4 2.3 - 4.5 mg/dL Blood 08/04/2024 8:52 PM CDT 08/04/2024 9:04 PM CDT Selvin Domínguez TECHNICIAN AUTOMATED EQUIPMENT LAB BLOOD ORDERABLES Teetee l Result Performing Organization Address [facility] Co de Phone Number [facility] Department [place] [address] * Magnesium (08/04/2024 8:52 PM CDT) [facility] Magnesium 1.8 1.4 - 2.5 mg/dL Blood 08/04/2024 8:52 PM CDT 08/04/2024 9:04 PM CDT Selvin Domínguez TECHNICIAN AUTOMATED EQUIPMENT LAB BLOOD ORDERABLES Teetee l Result Performing Organization Address [facility] Co de Phone Number [facility] [place] [address] * (ABNORMAL) Hepatic function panel (08/04/2024 8:52 PM CDT) [facility] Bilirubin, total 0.8 0.1 - 1.2 mg/dL Bilirubin, direct 0.3 0.1 - 0.3 mg/dL [facility] Protein, pl 6.1(L) 6.5 - 8.5 g/dL [facility] Albumin 3.1(L) 3.5 - 5.0 g/dL [facility] Alk phos 54 40 - 130 Units/L [facility] ALT 29 7 - 55 Units/L [facility] AST 49 10 - 50 Units/L [facility] Blood 08/04/2024 8:52 PM CDT 08/04/2024 9:04 PM CDT Marilee Sandoval TECHNICIAN AUTOMATED EQUIPMENT LAB BLOOD ORDERABLES Fin al Result Performing Organization Address City/[facility] Co de Phone Number [facility] [place] [address] * (ABNORMAL) Basic metabolic panel (08/04/2024 8:52 PM CDT) [facility] Sodium 137 135 - 145 mmol/L Potassium, pl 4.1 3.3 - 4.9 mmol/L [facility] Chloride 101 97 - 110 mmol/L [facility] CO2 28 22 - 32 mmol/L [facility] Anion gap 8 2 - 15 mmol/L [facility] BUN 22 6 - 25 mg/dL [facility] Creatinine 0.91 0.80 - 1.30 mg/dL [facility] Glucose 147 70 - 199 mg/dL [facility] Comment: Interpretive Data Fasting glucose >/= 126 [...] 2022. Calcium 7.9(L) 8.5 - 10.3 mg/dL [facility] Blood 08/04/2024 8:52 PM CDT 08/04/2024 9:04 PM CDT us Marilee Sandoval NP LAB BLOOD ORDERABLES Fin al Result [facility] [place] [address] * XR Chest 1 View - in PM (08/04/2024 7:50 PM CDT) Anatomical Region Laterality Modality Body, Chest N/A Computed Radiogr aphy 08/05/2024 12:0 0 PM CDT Impressions 08/05/2024 12:00 PM CDT Comparison 08/03/2024 at 7:19 PM. Median sternotomy wires are aligned and intact. Left atrial appendage clip again seen. Aortic valve replacement again noted. Windham-Clair catheter has been removed. New left peripherally [...] again seen. Aortic valve replacement again noted. Windham-Clair catheter has been removed. New left peripherally inserted central venous catheter seen with tip near the superior cavoatrial junction. Bilateral chest tubes have been removed. Moderate size posterior layering pleural effusions with underlying atelectasis again noted, left greater than right. Mild pulmonary edema may be present. No pneumothorax seen. Cardiomediastinal silhouette stable. Electronically signed by: Jose David Daly M.D. Marilee Sandoval TECHNICIAN AUTOMATED EQUIPMENT IMG XR PROCEDURES Final Result * TRANSTHORACIC ECHO (TTE) LIMITED/FOLLOW UP W LTD DOPPLER/CF W CONTRAST (08/04/2024 12:01 PM CDT) Anatomical Region Laterality Modality Ultrasound 08/04/2024 11:1 8 AM CDT Narrative 08/04/2024 1:23 PM CDT [facility] [place] [address] Transthoracic Echocardiographic Report Patient Name: SHEY SHAH C : 1950 (73y 11m) Gender: M Study Date: 08/04/2024 11:18:36 AM Ht(Inch): 73 Wt(Lb): 216.05 BSA: 2.25 Video Clerk: Sandra Medina RDCS, RCCS Location: [id number] Order Provider: MARILEE SANDOVAL Heart Rate: 80 [...] Procedure Note Yash Palmer MD - 08/04/2024 [facility] [place] [address] Transthoracic Echocardiographic Report Patient Name: SHEY SHAH C : 1950 (73y 11m) Gender: M Study Date: 08/04/2024 11:18:36 AM Ht(Inch): 73 Wt(Lb): 216.05 BSA: 2.25 Video Clerk: Sandra Medina RDCSENCOMPASS HE[facility] RE[facility] NITTANY VALLEYAugusto Location: [id number] OrderProvider: MARILEE SANDOVAL Heart Rate: 80 BMI: [...] depressed left ventricular systolic function. The Ejection Fraction(Jonhson's) is measured at 51 %. The average [...] 08/04/2024 7:55 AM CDT us Codi Ibanez NP LAB BLOOD ORDERABLES Final Re sult [facility] [place] [address] * Critical Care (08/04/2024 6:49 AM CDT) [...] plan with the ICU team and other medical/reimbursement consultant staff, making frequent assessments and decisions [...] in the medical record us Codi Ibanez TECHNICIAN AUTOMATED EQUIPMENT IN CLINIC/BEDSIDE ORDERABLES Final Result * Oxyhemoglobin, pulmonary artery (08/04/2024 12:01 AM CDT) Oxyhemoglobin, PA 61.6 % Comment: Interpretive Data No reference range established. Current interpretive data was last revised 2019. Blood 08/04/2024 12:0 1 AM CDT 08/04/2024 12:20 AM CDT us Selvin Domínguez TECHNICIAN AUTOMATED EQUIPMENT LAB BLOOD ORDERABLES Teetee l Result [facility] [place] [place] [address] * Potassium, whole blood (08/04/2024 12:01 AM CDT) Pathologist [facility] Potassium, bld 3.8 3.3 - 4.9 mmol/L Blood 08/04/2024 12:0 1 AM CDT 08/04/2024 12:21 AM CDT Arabella Gary TECHNICIAN AUTOMATED EQUIPMENT LAB BLOOD ORDERABLES Fi nal Result [facility] [place] [address] * eGFR (08/04/2024 12:01 AM CDT) eGFR [...] CDT 08/04/2024 12:18 AM CDT Marilee Sandoval TECHNICIAN AUTOMATED EQUIPMENT LAB BLOOD ORDERABLES Fin al Result [facility] [place] [address] * Lactate, whole blood (08/04/2024 12:01 AM CDT) Lactate, bld 0.9 0.7 - 2.0 mmol/L Blood 08/04/2024 12:0 1 AM CDT 08/04/2024 12:21 AM CDT Marilee Sandoval TECHNICIAN AUTOMATED EQUIPMENT LAB BLOOD ORDERABLES Fin al Result [facility] [place] [address] * (ABNORMAL) CBC without differential (08/04/2024 12:01 AM CDT) WBC 8.80 3.80 - 9.90 K/cumm Hgb 8.0(L) 13.0 - 17.5 g/dL [facility] Hct 24.3(L) 38.9 - 50.3 % [facility] Plt 95(L) 150 - 400 K/cumm [facility] MPV 11.7 9.1 - 12.3 fL [facility] RBC 2.40(L) 4.30 - 5.80 M/cumm [facility] MCV 101.3(H) 81.3 - 96.4 fL [facility] MCH 33.3 27.1 - 33.3 pg [facility] MCHC 32.9 32.3 - 35.7 g/dL [facility] RDW CV 14.8 11.1 - 14.9 % [facility] RDW SD 55.1(H) 35.7 - 48.1 fL [facility] NRBC abs 0.00 0.00 - 0.01 K/cumm [facility] Blood 08/04/2024 12:0 1 AM CDT 08/04/2024 12:19 AM CDT Marilee Sandoval TECHNICIAN AUTOMATED EQUIPMENT LAB BLOOD ORDERABLES Fin al Result [facility] [place] [address] * Phosphorus (08/04/2024 12:01 AM CDT) [facility] Phosphorus, pl 3.0 2.3 - 4.5 mg/dL Blood 08/04/2024 12:0 1 AM CDT 08/04/2024 12:18 AM CDT Selvin Domínguez TECHNICIAN AUTOMATED EQUIPMENT LAB BLOOD ORDERABLES Teetee l Result [facility] [place] [address] * Magnesium (08/04/2024 12:01 AM CDT) [facility] Magnesium 1.9 1.4 - 2.5 mg/dL Blood 08/04/2024 12:0 1 AM CDT 08/04/2024 12:18 AM CDT Selvin Domínguez TECHNICIAN AUTOMATED EQUIPMENT LAB BLOOD ORDERABLES Teetee l Result Performing Organization Address [facility] Co de Phone Number [facility] Department [place] [address] * (ABNORMAL) Blood gas, arterial (08/04/2024 12:01 AM CDT) [facility] pH, Art 7.46(H) 7.35 - 7.45 PCO2, Arterial 36 35 - 45 mmHg [facility] PO2, Arterial 142(H) 83 - 108 mmHg [facility] HCO3 Art (Calculated) 26 20 - 30 mmol/L [facility] BE, art 2 mmol/L [facility] Comment: Interpretive Data No Reference Range Established Current Interpretive Data was last revised on 2017 O2 Sat Art (Measured) 99(H) 90 - 95 % [facility] Blood 08/04/2024 12:0 1 AM CDT 08/04/2024 12:21 AM CDT Selvin Domínguez TECHNICIAN AUTOMATED EQUIPMENT LAB BLOOD ORDERABLES Teetee l Result Performing Organization Address [facility] Co de Phone Number [facility] Department [place] [address] * Creatine kinase (CK), total (08/04/2024 12:01 AM CDT) [facility] CK 60 40 - 300 Units/L Blood 08/04/2024 12:0 1 AM CDT 08/04/2024 12:18 AM CDT Nick Veliz MD LAB BLOOD ORDERABLES Fin al Result Performing Organization Address City/[facility] Co de Phone Number [facility] Department [place] [address] * (ABNORMAL) Hepatic function panel (08/04/2024 12:01 AM CDT) [facility] Bilirubin, total 0.8 0.1 - 1.2 mg/dL Bilirubin, direct 0.4(H) 0.1 - 0.3 mg/dL [facility] Protein, pl 5.8(L) 6.5 - 8.5 g/dL [facility] Albumin 2.8(L) 3.5 - 5.0 g/dL [facility] Alk phos 51 40 - 130 Units/L [facility] ALT 20 7 - 55 Units/L [facility] AST 38 10 - 50 Units/L [facility] Blood 08/04/2024 12:0 1 AM CDT 08/04/2024 12:18 AM CDT Marilee Sandoval TECHNICIAN AUTOMATED EQUIPMENT LAB BLOOD ORDERABLES [facility] al Result [facility] Department [place] [address] * (ABNORMAL) Basic metabolic panel (08/04/2024 12:01 AM CDT) [facility] Sodium 137 135 - 145 mmol/L Potassium, pl 4.0 3.3 - 4.9 mmol/L [facility] Chloride 103 97 - 110 mmol/L [facility] CO2 26 22 - 32 mmol/L [facility] Anion gap 8 2 - 15 mmol/L [facility] BUN 25 6 - 25 mg/dL [facility] Creatinine 0.93 0.80 - 1.30 mg/dL [facility] Glucose 117 70 - 199 mg/dL [facility] Comment: Interpretive Data Fasting glucose >/= 126 [...] Calcium 8.4(L) 8.5 - 10.3 mg/dL [facility] Blood 08/04/2024 12:0 1 AM CDT 08/04/2024 12:18 AM CDT us Marilee Sandoval NP LAB BLOOD ORDERABLES Fin al Result [facility] [place] [address] * XR Chest 1 View - in PM (08/03/2024 7:21 PM CDT) Anatomical Region Laterality Modality Body, Chest N/A Digital Radiogra phy 08/04/2024 10:1 3 AM CDT Impressions 08/04/2024 10:13 AM CDT Comparison with 08/02/2024. The posterior layering pleural effusions pulmonary edema stable. There is no pneumothorax. Windham-Clair catheter projects over the main pulmonary artery. [...] pulmonary edema stable. There is no pneumothorax. Windham-Clair catheter projects over the main pulmonary artery. Impala type device is been removed. Sternal wires midline and nondisplaced. Bioprosthetic aortic valve unchanged. Electronically signed by: Jeremias Howard M.D., MPH us Marilee Sandoval TECHNICIAN AUTOMATED EQUIPMENT IMG XR PROCEDURES Final Result * Critical [...] plan with the ICU team and other medical/reimbursement consultant staff, making frequent assessments and decisions [...] in the medical record us [place] TECHNICIAN AUTOMATED EQUIPMENT IN CLINIC/BEDSIDE ORDERABLES F inal Result * Oxyhemoglobin, pulmonary artery (08/03/2024 6:06 PM CDT) Oxyhemoglobin, PA 55.7 % Comment: Interpretive Data No reference range established. Current interpretive data was last revised 2019. Blood 08/03/2024 6:06 PM CDT 08/03/2024 6:25 PM CDT us Selvin Domínguez TECHNICIAN AUTOMATED EQUIPMENT LAB BLOOD ORDERABLES Teetee l Result [facility] [place] [address] * Blood culture Blood (08/03/2024 5:27 PM CDT) Report Final Report: No growth Blood 08/03/2024 5:27 PM CDT 08/03/2024 5:31 PM CDT Narrative [facility] - 08/08/2024 7:00 AM CDT Collection->Peripheral 1. [...] performance characteristics have been verified by the [facility] Microbiology Laboratory. For questions about this culture, contact the Microbiology Laboratory at [phone]. Interpretive data was last revised on 24. Marilee Sandoval NP LAB MICROBIOLOGY - [facility] ORDERABLES Final Result [facility] [place] [address] * Blood culture Blood (08/03/2024 5:27 PM CDT) Report Final Report: No growth Blood 08/03/2024 5:27 PM CDT 08/03/2024 5:31 PM CDT Narrative [facility] - 08/08/2024 7:00 AM CDT Collection->Peripheral 1. [...] performance characteristics have been verified by the [facility] Microbiology Laboratory. For questions about this culture, contact the Microbiology Laboratory at [phone]. Interpretive data was last revised on 24. us Marilee Sandoval TECHNICIAN AUTOMATED EQUIPMENT LAB MICROBIOLOGY - GENER AL ORDERABLES Final Result [facility] Department [place] [address] * Potassium, whole blood (08/03/2024 8:36 AM CDT) [facility] Potassium, bld 3.8 3.3 - 4.9 mmol/L Blood 08/03/2024 8:36 AM CDT 08/03/2024 8:42 AM CDT us Arabella Gary TECHNICIAN AUTOMATED EQUIPMENT LAB BLOOD ORDERABLES Fi nal Result [facility] [place] [address] * Critical Care (08/03/2024 6:55 AM CDT) Narrative de Malu Lealan, MD - 08/03/2024 6:55 AM CDT Malu [...] plan with the ICU team and other medical/reimbursement consultant staff, making frequent assessments and decisions [...] and the medical staff us Marilee Sandoval TECHNICIAN AUTOMATED EQUIPMENT IN CLINIC/BEDSIDE ORDERA BLES Final Result * Oxyhemoglobin, central venous (08/03/2024 12:10 AM CDT) Oxyhemoglobin, CV 60.8 % Comment: Interpretive Data No reference range established. Current interpretive data was last revised 2019. Blood 08/03/2024 12:1 0 AM CDT 08/03/2024 12:26 AM CDT us Marilee Sandoval TECHNICIAN AUTOMATED EQUIPMENT LAB BLOOD ORDERABLES Fin al Result [facility] [place] [address] * Oxyhemoglobin, pulmonary artery (08/03/2024 12:10 AM CDT) Pathologist [facility] Oxyhemoglobin, PA 62.4 % Comment: Interpretive Data No reference range established. Current interpretive data was last revised 2019. Blood 08/03/2024 12:1 0 AM CDT 08/03/2024 12:26 AM CDT us Selvin Domínguez TECHNICIAN AUTOMATED EQUIPMENT LAB BLOOD ORDERABLES Teetee l Result Performing Organization Address City/[facility] Co de Phone Number [facility] [place] [address] * (ABNORMAL) Hemoglobin total, pulmonary artery (08/03/2024 12:10 AM CDT) [facility] Hemoglobin total, PA 9.0(L) 13.0 - 17.5 g/dL Blood 08/03/2024 12:1 0 AM CDT 08/03/2024 12:26 AM CDT us Arabella Gary TECHNICIAN AUTOMATED EQUIPMENT LAB BLOOD ORDERABLES Fi nal Result Performing Organization Address [facility] Co de Phone Number [facility] [place] [address] * Lactate (08/03/2024 12:10 AM CDT) Pathologist [facility] Lactate 0.9 0.7 - 2.0 mmol/L Blood 08/03/2024 12:1 0 AM CDT 08/03/2024 12:30 AM CDT us Marilee Sandoval TECHNICIAN AUTOMATED EQUIPMENT LAB BLOOD ORDERABLES Fin al Result Performing Organization Address [facility] Co de Phone Number [facility] [place] [address] * Hemoglobin, plasma (08/03/2024 12:10 AM CDT) Pathologist [facility] Hemoglobin, Plasma <30 <=50 mg/dL Blood 08/03/2024 12:1 0 AM CDT 08/03/2024 12:26 AM CDT Marilee Sandoval NP LAB BLOOD ORDERABLES Fin al Result Performing Organization Address [facility] CARE [facility]ACILITY Co de Phone Number [facility] [place] [address] * eGFR (08/03/2024 12:10 AM CDT) eGFR [...] ORDERABLES Fin al Result Performing Organization Address City/[facility]/ZIP Co de Phone Number [facility] [place] [address] * Heparin anti factor Xa activity (08/03/2024 [...] ORDERABLES Fin al Result Performing Organization Address City/[facility] Co de Phone Number [facility] [place] [place] [address] * Lactate, whole blood (08/03/2024 12:10 AM CDT) [facility] Lactate, bld 0.9 0.7 - 2.0 mmol/L Blood 08/03/2024 12:1 0 AM CDT 08/03/2024 12:26 AM CDT Nick Veliz MD LAB BLOOD ORDERABLES Fin al Result Performing Organization Address City/[facility] Co de Phone Number [facility] [place] [address] * aPTT (08/03/2024 12:10 AM CDT) aPTT 30 28 - 38 sec Comment: Interpretive Data Heparin therapeutic range: 66.0 - 100.0 seconds. Range based on correlation with therapeutic heparin activity range of 0.3 - 0.7 Units/mL. Current interpretive data was last revised on 2023. Blood 08/03/2024 12:1 0 AM CDT 08/03/2024 12:29 AM CDT Marilee Sandoval TECHNICIAN AUTOMATED EQUIPMENT LAB BLOOD ORDERABLES Fin al Result Performing Organization Address City/[facility] Co de Phone Number [facility] [address] [place] [address] * (ABNORMAL) Protime-INR (08/03/2024 12:10 AM CDT) PT 16.8(H) 9.7 - 13.0 sec INR 1.54(H) 0.90 - 1.20 [facility] Comment: Interpretive data Oral anticoagulant therapeutic ranges: Venous thromboembolism prophylaxis or treatment: 2.0-3.0 CARDIOLOGY Standard range: 2.0-3.0 High-intensity range: 2.5-3.5 Refer to indication-specific guidelines for appropriate target ranges for prosthetic heart valve replacement. Current interpretive data was last revised on 2019. Blood 08/03/2024 12:1 0 AM CDT 08/03/2024 12:29 AM CDT Marilee Sandoval TECHNICIAN AUTOMATED EQUIPMENT LAB BLOOD ORDERABLES Fin al Result [facility] [address] [place] [address] * (ABNORMAL) Fibrinogen (08/03/2024 12:10 AM CDT) Fibrinogen 561(H) 170 - 400 mg/dL Blood 08/03/2024 12:1 0 AM CDT 08/03/2024 12:29 AM CDT Nick Veliz MD LAB BLOOD ORDERABLES Fin al Result Performing Organization Address [facility] Co de Phone Number [facility] Department [place] [address] * (ABNORMAL) CBC without differential (08/03/2024 12:10 AM CDT) Pathologist [facility] WBC 9.31 3.80 - 9.90 K/cumm Hgb 8.4(L) 13.0 - 17.5 g/dL [facility] Hct 24.6(L) 38.9 - 50.3 % [facility] Plt 74(L) 150 - 400 K/cumm [facility] MPV 12.0 9.1 - 12.3 fL [facility] RBC 2.47(L) 4.30 - 5.80 M/cumm [facility] MCV 99.6(H) 81.3 - 96.4 fL [facility] MCH 34.0(H) 27.1 - 33.3 pg [facility] MCHC 34.1 32.3 - 35.7 g/dL [facility] RDW CV 15.3(H) 11.1 - 14.9 % [facility] RDW SD 55.7(H) 35.7 - 48.1 fL [facility] NRBC abs 0.00 0.00 - 0.01 K/cumm [facility] Blood 08/03/2024 12:1 0 AM CDT 08/03/2024 12:26 AM CDT Marilee Sandoval NP LAB BLOOD ORDERABLES Fin al Result Performing Organization Address [facility]/ZIP Co de Phone Number [facility] Department [place] [address] * Phosphorus (08/03/2024 12:10 AM CDT) Pathologist [facility] Phosphorus, pl 3.6 2.3 - 4.5 mg/dL Blood 08/03/2024 12:1 0 AM CDT 08/03/2024 12:30 AM CDT Selvin Domínguez TECHNICIAN AUTOMATED EQUIPMENT LAB BLOOD ORDERABLES Teetee l Result Performing Organization Address [facility] Co de Phone Number [facility] [place] [address] * Magnesium (08/03/2024 12:10 AM CDT) [facility] Magnesium 1.8 1.4 - 2.5 mg/dL Blood 08/03/2024 12:1 0 AM CDT 08/03/2024 12:30 AM CDT Selvin Domínguez TECHNICIAN AUT[employer]ATED EQUIPMENT LAB BLOOD ORDERABLES Teetee l Result Performing Organization Address [facility] de Phone Number [facility] [place] [address] * (ABNORMAL) Lactate dehydrogenase (LD) (08/03/2024 12:10 AM CDT) [facility] Lactate dehydrogenase (LDH) 347(H) 100 - 250 Units/L Blood 08/03/2024 12:1 0 AM CDT 08/03/2024 12:30 AM CDT Marilee Sandoval TECHNICIAN AUTOMATED EQUIPMENT LAB BLOOD ORDERABLES Fin al Result Performing Organization Address [facility] [place] [address] * (ABNORMAL) Blood gas, arterial (08/03/2024 12:10 AM CDT) Pathologist [facility] pH, Art 7.46(H) 7.35 - 7.45 PCO2, Arterial 36 35 - 45 mmHg [facility] PO2, Arterial 130(H) 83 - 108 mmHg [facility] HCO3 Art (Calculated) 26 20 - 30 mmol/L [facility] BE, art 2 mmol/L [facility] Comment: Interpretive Data No Reference Range Established Current Interpretive Data was last revised on 2017 O2 Sat Art (Measured) 99(H) 90 - 95 % [facility] Blood 08/03/2024 12:1 0 AM CDT 08/03/2024 12:26 AM CDT Selvin Domínguez NP LAB BLOOD ORDERABLES Teetee l Result Performing Organization Address City/[facility] Co de Phone Number [facility] [place] [address] * Creatine kinase (CK), total (08/03/2024 12:10 AM CDT) Pathologist [facility] CK 97 40 - 300 Units/L Blood 08/03/2024 12:1 0 AM CDT 08/03/2024 12:30 AM CDT Nick Veliz MD LAB BLOOD ORDERABLES Fin al Result Performing Organization Address [facility] de Phone Number [facility] Department [place] [address] * (ABNORMAL) Hepatic function panel (08/03/2024 12:10 AM CDT) Bilirubin, total 0.9 0.1 - 1.2 mg/dL Bilirubin, direct 0.4(H) 0.1 - 0.3 mg/dL [facility] Protein, pl 5.9(L) 6.5 - 8.5 g/dL [facility] Albumin 3.1(L) 3.5 - 5.0 g/dL [facility] Alk phos 50 40 - 130 Units/L [facility] ALT 15 7 - 55 Units/L [facility] AST 41 10 - 50 Units/L [facility] Blood 08/03/2024 12:1 0 AM CDT 08/03/2024 12:30 AM CDT Marilee Sandoval NP LAB BLOOD ORDERABLES Fin al Result Performing Organization Address [facility] Co de Phone Number [facility] Department [place] [address] * (ABNORMAL) Basic metabolic panel (08/03/2024 12:10 AM CDT) [facility] Sodium 139 135 - 145 mmol/L Potassium, pl 3.8 3.3 - 4.9 mmol/L [facility] Chloride 106 97 - 110 mmol/L [facility] CO2 25 22 - 32 mmol/L [facility] Anion gap 8 2 - 15 mmol/L [facility] BUN 26(H) 6 - 25 mg/dL [facility] Creatinine 0.95 0.80 - 1.30 mg/dL [facility] Glucose 124 70 - 199 mg/dL [facility] Comment: Interpretive Data Fasting glucose >/= 126 [...] 2022. Calcium 9.0 8.5 - 10.3 mg/dL [facility] Blood 08/03/2024 12:1 0 AM CDT 08/03/2024 12:30 AM CDT Nick Veliz MD LAB BLOOD ORDERABLES Fin al Result Performing Organization Address [facility] Co de Phone Number [facility] Department [place] [address] * XR Chest 1 View - in [...] by: Jimmy Camacho M.D. us Marilee Sandoval TECHNICIAN AUTOMATED EQUIPMENT IMG XR PROCEDURES Final Result * POCT glucose (08/02/2024 8:15 PM CDT) Glucose, POC 139 70 - 199 mg/dL Blood 08/02/2024 8:15 PM CDT 08/02/2024 8:15 PM CDT us Nick Veliz MD LAB POCT ORDERABLES - DE VICE Final Result [facility] [place] [address] * Critical Care (08/02/2024 6:53 PM CDT) Narrative de Wet, Charl Anderson, MD - 08/02/2024 6:53 PM CDT Malu [...] plan with the ICU team and other medical/reimbursement consultant staff, making frequent assessments and decisions [...] ORDERABLES - DE VICE Final Result [facility] [place] [address] * Oxyhemoglobin, pulmonary artery (08/02/2024 3:30 PM CDT) Oxyhemoglobin, PA 64.3 % Comment: Interpretive Data No reference range established. Current interpretive data was last revised 2019. Blood 08/02/2024 3:30 PM CDT 08/02/2024 3:34 PM CDT Selvin Domínguez TECHNICIAN AUTOMATED EQUIPMENT LAB BLOOD ORDERABLES Teetee l Result Performing Organization Address City/[facility]/ZIP Co de Phone Number [facility] [place] [address] * (ABNORMAL) Hemoglobin total, pulmonary artery (08/02/2024 3:30 PM CDT) Hemoglobin total, PA 8.5(L) 13.0 - 17.5 g/dL Blood 08/02/2024 3:30 PM CDT 08/02/2024 3:34 PM CDT Arabella Gary TECHNICIAN AUTOMATED EQUIPMENT LAB BLOOD ORDERABLES Fi nal Result Performing Organization Address [facility] Co de Phone Number [facility] [place] [place] [address] * Potassium, whole blood (08/02/2024 3:30 PM CDT) Potassium, bld 3.9 3.3 - 4.9 mmol/L Blood 08/02/2024 3:30 PM CDT 08/02/2024 3:34 PM CDT Arabella Gary TECHNICIAN AUTOMATED EQUIPMENT LAB BLOOD ORDERABLES Fi nal Result Performing Organization Address City/[facility] Co de Phone Number [facility] [place] [place] [address] * eGFR (08/02/2024 3:30 PM CDT) eGFR [...] CDT Marilee Sandoval NP LAB BLOOD ORDERABLES [facility] al Result [facility] [place] [address] * Heparin anti factor Xa activity (08/02/2024 3:30 PM CDT) Pathologist [facility] Anti Factor Xa <0.10 IUnits/mL Comment: No clot detected in sample - [id number] - 08/02/24, 4:05 PM Interpretive Data Enoxaparin [...] ORDERABLES Fin al Result Performing Organization Address [facility] Co de Phone Number [facility] [place] [address] * Lactate, whole blood (08/02/2024 3:30 PM CDT) Lactate, bld 1.1 0.7 - 2.0 mmol/L Blood 08/02/2024 3:30 PM CDT 08/02/2024 3:34 PM CDT Codi Ibanez TECHNICIAN AUTOMATED EQUIPMENT LAB BLOOD ORDERABLES Final Re sult Performing Organization Address [facility] de Phone Number [facility] [place] [address] * (ABNORMAL) aPTT (08/02/2024 3:30 PM CDT) aPTT 26(L) 28 - 38 sec Comment: Interpretive Data Heparin therapeutic range: 66.0 - 100.0 seconds. Range based on correlation with therapeutic heparin activity range of 0.3 - 0.7 Units/mL. Current interpretive data was last revised on 2023. Blood 08/02/2024 3:30 PM CDT 08/02/2024 3:34 PM CDT Marilee Sandoval TECHNICIAN AUTOMATED EQUIPMENT LAB BLOOD ORDERABLES Fin al Result Performing Organization Address [facility] de Phone Number [facility] Department [place] [address] * (ABNORMAL) Protime-INR (08/02/2024 3:30 PM CDT) [facility] PT 17.3(H) 9.7 - 13.0 sec INR 1.59(H) 0.90 - 1.20 [facility] Comment: Interpretive data Oral anticoagulant therapeutic ranges: Venous thromboembolism prophylaxis or treatment: 2.0-3.0 CARDIOLOGY Standard range: 2.0-3.0 High-intensity range: 2.5-3.5 Refer to indication-specific guidelines for appropriate target ranges for prosthetic heart valve replacement. Current interpretive data was last revised on 2019. Blood 08/02/2024 3:30 PM CDT 08/02/2024 3:34 PM CDT Marilee Sandoval TECHNICIAN AUTOMATED EQUIPMENT LAB BLOOD ORDERABLES Fin al Result Performing Organization Address [facility] de Phone Number [facility] Department [place] [address] * (ABNORMAL) CBC without differential (08/02/2024 3:30 PM CDT) [facility] WBC 9.51 3.80 - 9.90 K/cumm Hgb 8.4(L) 13.0 - 17.5 g/dL [facility] Hct 24.9(L) 38.9 - 50.3 % [facility] Plt 72(L) 150 - 400 K/cumm [facility] MPV 11.5 9.1 - 12.3 fL [facility] RBC 2.50(L) 4.30 - 5.80 M/cumm [facility] MCV 99.6(H) 81.3 - 96.4 fL [facility] MCH 33.6(H) 27.1 - 33.3 pg [facility] MCHC 33.7 32.3 - 35.7 g/dL [facility] RDW CV 15.5(H) 11.1 - 14.9 % [facility] RDW SD 56.6(H) 35.7 - 48.1 fL [facility] NRBC abs 0.00 0.00 - 0.01 K/cumm [facility] Blood 08/02/2024 3:30 PM CDT 08/02/2024 3:40 PM CDT Codi Ibanez TECHNICIAN AUTOMATED EQUIPMENT LAB BLOOD ORDERABLES Final Re sult Performing Organization Address [facility] Co de Phone Number [facility] Department [place] [address] * Type and screen (08/02/2024 3:30 PM CDT) Kumar, indirect Negative ABO Rh A Positive [facility] Blood 08/02/2024 3:30 PM CDT 08/02/2024 3:39 PM CDT Narrative [facility] - 08/02/2024 4:31 PM CDT Has the patient had Daratumumab or Isatuximab in the past 6 months?->Unknown Nick Veliz MD LAB BLOOD BANK TEST ORDE RABLES Final Result Performing Organization Address [facility] Co de Phone Number [facility] [place] [address] * (ABNORMAL) Blood gas, arterial (08/02/2024 3:30 PM CDT) pH, Art 7.47(H) 7.35 - 7.45 PCO2, Arterial 33(L) 35 - 45 mmHg [facility] PO2, Arterial 142(H) 83 - 108 mmHg [facility] HCO3 Art (Calculated) 24 20 - 30 mmol/L [facility] BE, art 0 mmol/L [facility] Comment: Interpretive Data No Reference Range Established Current Interpretive Data was last revised on 2017 O2 Sat Art (Measured) 100(H) 90 - 95 % [facility] Blood 08/02/2024 3:30 PM CDT 08/02/2024 3:34 PM CDT Selvin Domínguez TECHNICIAN AUTOMATED EQUIPMENT LAB BLOOD ORDERABLES Teetee l Result Performing Organization Address [facility]/ZIP Co de Phone Number [facility] Department [place] [address] * Basic metabolic panel (08/02/2024 3:30 PM CDT) [facility] Sodium 139 135 - 145 mmol/L Potassium, pl 3.8 3.3 - 4.9 mmol/L [facility] Chloride 104 97 - 110 mmol/L [facility] CO2 26 22 - 32 mmol/L [facility] Anion gap 9 2 - 15 mmol/L [facility] BUN 25 6 - 25 mg/dL [facility] Creatinine 1.03 0.80 - 1.30 mg/dL [facility] Glucose 166 70 - 199 mg/dL [facility] Comment: Interpretive Data Fasting glucose >/= 126 [...] 2022. Calcium 9.1 8.5 - 10.3 mg/dL [facility] Blood 08/02/2024 3:30 PM CDT 08/02/2024 3:40 PM CDT Marilee Sandoval TECHNICIAN AUTOMATED EQUIPMENT LAB BLOOD ORDERABLES Fin al Result Performing Organization Address [facility]/ZIP Co de Phone Number [facility] Department [place] [address] * POCT glucose (08/02/2024 3:24 PM CDT) Glucose, POC 173 70 - 199 mg/dL Blood 08/02/2024 3:24 PM CDT 08/02/2024 3:24 PM CDT us Nick Pippa Veliz MD LAB POCT ORDERABLES - DE VICE Final Result [facility] [place] [address] * TRANSTHORACIC ECHO (TTE) LIMITED/FOLLOW UP W LTD DOPPLER/CF W CONTRAST (08/02/2024 2:23 PM CDT) Anatomical Region Laterality Modality Ultrasound 08/02/2024 1:59 PM CDT Narrative 08/02/2024 4:22 PM CDT [facility] [place] [address] Transthoracic Echocardiographic Report Patient Name: SHEY SHAH C : 1950 (73y 11m) Gender: M Study Date: 08/02/2024 01:59:15 PM Ht(Inch): 73 Wt(Lb): 216.05 BSA: 2.25 Video Clerk: REBECCA Diane Location: [id number] Order Provider: JORDY KAMARA Heart Rate: 90 [...] Procedure Note Cecilia Hair MD - 08/02/2024 [facility] [place] [address] Transthoracic Echocardiographic Report Patient Name: SHEY SHAH C : 1950 (73y 11m) Gender: M Study Date: 08/02/2024 01:59:15 PM Ht(Inch): 73 Wt(Lb): 216.05 BSA: 2.25 Video Clerk: REBECCA Diane Location: [id number] Order Provider:JORDY KAMARA Heart Rate: 90 BMI: [...] M.D. 08/02/2024 4:21:30 PM CDT Jordy Kamara DNP CV ECHO PROCEDURES Teetee keith Result * Oxyhemoglobin, pulmonary artery (08/02/2024 8:43 AM CDT) Oxyhemoglobin, PA 48.8 % Comment: Interpretive Data No reference range established. Current interpretive data was last revised 2019. Blood 08/02/2024 8:43 AM CDT 08/02/2024 8:44 AM CDT Selvin Domínguez TECHNICIAN AUTOMATED EQUIPMENT LAB BLOOD ORDERABLES Teetee l Result Performing Organization Address [facility] Co de Phone Number [facility] [place] [address] * (ABNORMAL) Hemoglobin total, pulmonary artery (08/02/2024 8:43 AM CDT) Hemoglobin total, PA 8.9(L) 13.0 - 17.5 g/dL Blood 08/02/2024 8:43 AM CDT 08/02/2024 8:44 AM CDT Arabella Gary TECHNICIAN AUTOMATED EQUIPMENT LAB BLOOD ORDERABLES Fi nal Result Performing Organization Address [facility] Co de Phone Number [facility] [place] [address] * Lactate (08/02/2024 8:43 AM CDT) Lactate 1.3 0.7 - 2.0 mmol/L Blood 08/02/2024 8:43 AM CDT 08/02/2024 8:44 AM CDT Selvin Domínguez TECHNICIAN AUTOMATED EQUIPMENT LAB BLOOD ORDERABLES Teetee l Result Performing Organization Address [facility] Co de Phone Number [facility] [place] [address] * Calcium, ionized (08/02/2024 8:43 AM CDT) Calcium, Ionized 4.92 4.50 - 5.10 mg/dL Blood 08/02/2024 8:43 AM CDT 08/02/2024 8:44 AM CDT us Nick Veliz MD LAB BLOOD ORDERABLES Fin al Result [facility] [place] [address] * (ABNORMAL) Blood gas, arterial (08/02/2024 8:43 AM CDT) pH, Art 7.47(H) 7.35 - 7.45 PCO2, Arterial 30(L) 35 - 45 mmHg [facility] PO2, Arterial 93 83 - 108 mmHg [facility] HCO3 Art (Calculated) 22 20 - 30 mmol/L [facility] BE, art -2 mmol/L [facility] Comment: Interpretive Data No Reference Range Established Current Interpretive Data was last revised on 2017 O2 Sat Art (Measured) 98(H) 90 - 95 % [facility] Blood 08/02/2024 8:43 AM CDT 08/02/2024 8:44 AM CDT Selvin Domínguez NP LAB BLOOD ORDERABLES Teetee l Result Performing Organization Address City/[facility]/[place] [address] * POCT glucose (08/02/2024 8:32 AM CDT) Glucose, POC 131 70 - 199 mg/dL Blood 08/02/2024 8:32 AM CDT 08/02/2024 8:32 AM CDT Nick Veliz MD LAB POCT ORDERABLES - [place] [address] * Critical Care (08/02/2024 6:55 AM CDT) Narrative de Wet, Malu Barron MD - 08/02/2024 6:55 AM CDT Malu [...] plan with the ICU team and other medical/reimbursement consultant staff, making frequent assessments and decisions [...] record Codi Ibanez NP IN CLINIC/BEDSIDE ORDERABLES Final Result * Oxyhemoglobin, pulmonary artery (08/02/2024 4:06 AM CDT) Oxyhemoglobin, PA 54.3 % Comment: Interpretive Data No reference range established. Current interpretive data was last revised 2019. Blood 08/02/2024 4:06 AM CDT 08/02/2024 4:10 AM CDT us Selvin Domínguez NP LAB BLOOD ORDERABLES Teetee l Result [facility] [place] [address] * (ABNORMAL) Hemoglobin total, pulmonary artery (08/02/2024 4:06 AM CDT) Hemoglobin total, PA 8.5(L) 13.0 - 17.5 g/dL Blood 08/02/2024 4:06 AM CDT 08/02/2024 4:10 AM CDT Arabella Gary TECHNICIAN AUTOMATED EQUIPMENT LAB BLOOD ORDERABLES Fi nal Result Performing Organization Address [facility] Co de Phone Number [facility] [place] [address] * (ABNORMAL) Blood gas, arterial (08/02/2024 4:06 AM CDT) pH, Art 7.48(H) 7.35 - 7.45 PCO2, Arterial 31(L) 35 - 45 mmHg [facility] PO2, Arterial 97 83 - 108 mmHg [facility] HCO3 Art (Calculated) 23 20 - 30 mmol/L [facility] BE, art 0 mmol/L [facility] Comment: Interpretive Data No Reference Range Established Current Interpretive Data was last revised on 2017 O2 Sat Art (Measured) 98(H) 90 - 95 % [facility] Blood 08/02/2024 4:06 AM CDT 08/02/2024 4:10 AM CDT Selvin Domínguez TECHNICIAN AUTOMATED EQUIPMENT LAB BLOOD ORDERABLES Teetee l Result Performing Organization Address [facility] Co de Phone Number [facility] Department [place] [address] * POCT glucose (08/02/2024 4:04 AM CDT) Glucose, POC 142 70 - 199 mg/dL Blood 08/02/2024 4:04 AM CDT 08/02/2024 4:04 AM CDT Nick Veliz MD LAB POCT ORDERABLES - DE VICE Final Result Performing Organization Address [facility] Co de Phone Number [facility] [place] [address] * Lactate (08/02/2024 12:47 AM CDT) Lactate 1.0 0.7 - 2.0 mmol/L Blood 08/02/2024 12:4 7 AM CDT 08/02/2024 12:57 AM CDT us Marliee Sandoval TECHNICIAN AUTOMATED EQUIPMENT LAB BLOOD ORDERABLES [place] [address] * eGFR (08/02/2024 12:47 AM CDT) eGFR [...] 7 AM CDT 08/02/2024 12:56 AM CDT us Marilee Sandoval TECHNICIAN AUTOMATED EQUIPMENT LAB BLOOD ORDERABLES Fin al Result [facility] [place] [address] * Heparin anti factor Xa activity (08/02/2024 [...] CDT 08/02/2024 12:49 AM CDT Marilee Sandoval NP LAB BLOOD ORDERABLES Fin al Result [facility] [place] [address] * aPTT (08/02/2024 12:47 AM CDT) aPTT [...] ORDERABLES Fin al Result Performing Organization Address [facility] Co de Phone Number [facility] [place] [place] [address] * (ABNORMAL) Protime-INR (08/02/2024 12:47 AM CDT) PT 15.2(H) 9.7 - 13.0 sec INR 1.40(H) 0.90 - 1.20 [facility] Comment: Interpretive data Oral anticoagulant therapeutic ranges: Venous thromboembolism prophylaxis or treatment: 2.0-3.0 CARDIOLOGY Standard range: 2.0-3.0 High-intensity range: 2.5-3.5 Refer to indication-specific guidelines for appropriate target ranges for prosthetic heart valve replacement. Current interpretive data was last revised on 2019. Blood 08/02/2024 12:4 7 AM CDT 08/02/2024 12:48 AM CDT Marilee Sandoval NP LAB BLOOD ORDERABLES Fin al Result Performing Organization Address [facility] [place] [address] * (ABNORMAL) Fibrinogen (08/02/2024 12:47 AM CDT) Fibrinogen 487(H) 170 - 400 mg/dL Blood 08/02/2024 12:4 7 AM CDT 08/02/2024 12:48 AM CDT Nick Veliz MD LAB BLOOD ORDERABLES Fin al Result Performing Organization Address [facility] Co de Phone Number [facility] [place] [address] * Phosphorus (08/02/2024 12:47 AM CDT) Phosphorus, pl 3.6 2.3 - 4.5 mg/dL Blood 08/02/2024 12:4 7 AM CDT 08/02/2024 12:56 AM CDT Selvin Domínguez TECHNICIAN AUTOMATED EQUIPMENT LAB BLOOD ORDERABLES Teetee l Result Performing Organization Address [facility] Co de Phone Number [facility] [place] [address] * Magnesium (08/02/2024 12:47 AM CDT) [facility] Magnesium 2.1 1.4 - 2.5 mg/dL Blood 08/02/2024 12:4 7 AM CDT 08/02/2024 12:56 AM CDT Selvin Domínguez TECHNICIAN AUTOMATED EQUIPMENT LAB BLOOD ORDERABLES Teetee l Result Performing Organization Address [facility] Co de Phone Number [facility] Department [place] [address] * (ABNORMAL) Lactate dehydrogenase (LD) (08/02/2024 12:47 AM CDT) [facility] Lactate dehydrogenase (LDH) 410(H) 100 - 250 Units/L Blood 08/02/2024 12:4 7 AM CDT 08/02/2024 12:56 AM CDT Marilee Sandoval TECHNICIAN AUTOMATED EQUIPMENT LAB BLOOD ORDERABLES Fin al Result Performing Organization Address City/[facility] Co de Phone Number [facility] [place] [address] * Creatine kinase (CK), total (08/02/2024 12:47 AM CDT) [facility] CK 164 40 - 300 Units/L Blood 08/02/2024 12:4 7 AM CDT 08/02/2024 12:56 AM CDT Nick Veliz MD LAB BLOOD ORDERABLES Fin al Result Performing Organization Address [facility] Co de Phone Number [facility] [place] [address] * (ABNORMAL) Hepatic function panel (08/02/2024 12:47 AM CDT) Bilirubin, total 1.1 0.1 - 1.2 mg/dL Bilirubin, direct 0.5(H) 0.1 - 0.3 mg/dL [facility] Protein, pl 5.9(L) 6.5 - 8.5 g/dL [facility] Albumin 3.5 3.5 - 5.0 g/dL [facility] Alk phos 50 40 - 130 Units/L [facility] ALT 10 7 - 55 Units/L [facility] AST 44 10 - 50 Units/L [facility] Blood 08/02/2024 12:4 7 AM CDT 08/02/2024 12:56 AM CDT Marilee Sandoval NP LAB BLOOD ORDERABLES Fin al Result Performing Organization Address [facility] de Phone Number [facility] [place] [address] * Basic metabolic panel (08/02/2024 12:47 AM CDT) Sodium 140 135 - 145 mmol/L Potassium, pl 4.4 3.3 - 4.9 mmol/L [facility] Chloride 106 97 - 110 mmol/L [facility] CO2 24 22 - 32 mmol/L [facility] Anion gap 10 2 - 15 mmol/L [facility] BUN 23 6 - 25 mg/dL [facility] Creatinine 1.02 0.80 - 1.30 mg/dL [facility] Glucose 141 70 - 199 mg/dL [facility] Comment: Interpretive Data Fasting glucose >/= 126 [...] 2022. Calcium 8.8 8.5 - 10.3 mg/dL [facility] Blood 08/02/2024 12:4 7 AM CDT 08/02/2024 12:56 AM CDT Marilee Sandoval LAB BLOOD ORDERABLES Fin al Result Performing Organization Address [facility] Co de Phone Number [facility] [place] [place] [address] * Oxyhemoglobin, central venous (08/02/2024 12:23 AM CDT) Oxyhemoglobin, CV 67.9 % Comment: Interpretive Data No reference range established. Current interpretive data was last revised 2019. Blood 08/02/2024 12:2 3 AM CDT 08/02/2024 12:45 AM CDT Marilee Sandoval TECHNICIAN AUTOMATED EQUIPMENT LAB BLOOD ORDERABLES Fin al Result Performing Organization Address City/[facility] Co de Phone Number [facility] [place] [address] * Oxyhemoglobin, pulmonary artery (08/02/2024 12:23 AM CDT) Oxyhemoglobin, PA 60.7 % Comment: Interpretive Data No reference range established. Current interpretive data was last revised 2019. Blood 08/02/2024 12:2 3 AM CDT 08/02/2024 12:45 AM CDT Marilee Sandoval TECHNICIAN AUTOMATED EQUIPMENT LAB BLOOD ORDERABLES Fin al Result Performing Organization Address [facility] Co de Phone Number [facility] [place] [address] * Hemoglobin, plasma (08/02/2024 12:23 AM CDT) Pathologist [facility] Hemoglobin, Plasma <30 <=50 mg/dL Blood 08/02/2024 12:2 3 AM CDT 08/02/2024 12:45 AM CDT Marilee Sandoval TECHNICIAN AUTOMATED EQUIPMENT LAB BLOOD ORDERABLES Fin al Result Performing Organization Address [facility] de Phone Number [facility] [place] [address] * Lactate, whole blood (08/02/2024 12:23 AM CDT) [facility] Lactate, bld 0.8 0.7 - 2.0 mmol/L Blood 08/02/2024 12:2 3 AM CDT 08/02/2024 12:45 AM CDT Marilee Sandoval TECHNICIAN AUTOMATED EQUIPMENT LAB BLOOD ORDERABLES Fin al Result Performing Organization Address [facility] [place] [address] * (ABNORMAL) CBC without differential (08/02/2024 12:23 AM CDT) [facility] WBC 10.76(H) 3.80 - 9.90 K/cumm Hgb 8.4(L) 13.0 - 17.5 g/dL [facility] Hct 24.5(L) 38.9 - 50.3 % [facility] Plt 72(L) 150 - 400 K/cumm [facility] MPV 11.8 9.1 - 12.3 fL [facility] RBC 2.47(L) 4.30 - 5.80 M/cumm [facility] MCV 99.2(H) 81.3 - 96.4 fL [facility] MCH 34.0(H) 27.1 - 33.3 pg [facility] MCHC 34.3 32.3 - 35.7 g/dL [facility] RDW CV 16.1(H) 11.1 - 14.9 % [facility] RDW SD 59.5(H) 35.7 - 48.1 fL [facility] NRBC abs 0.00 0.00 - 0.01 K/cumm [facility] Blood 08/02/2024 12:2 3 AM CDT 08/02/2024 12:44 AM CDT Marilee Sandoval TECHNICIAN AUTOMATED EQUIPMENT LAB BLOOD ORDERABLES Fin al Result Performing Organization Address [facility] de Phone Number [facility] Department [place] [address] * (ABNORMAL) Blood gas, arterial (08/02/2024 12:23 AM CDT) pH, Art 7.43 7.35 - 7.45 PCO2, Arterial 34(L) 35 - 45 mmHg [facility] PO2, Arterial 92 83 - 108 mmHg [facility] HCO3 Art (Calculated) 23 20 - 30 mmol/L [facility] BE, art -2 mmol/L [facility] Comment: Interpretive Data No Reference Range Established Current Interpretive Data was last revised on 2017 O2 Sat Art (Measured) 98(H) 90 - 95 % [facility] Blood 08/02/2024 12:2 3 AM CDT 08/02/2024 12:45 AM CDT Selvin Domínguez TECHNICIAN AUTOMATED EQUIPMENT LAB BLOOD ORDERABLES Teetee l Result Performing Organization Address [facility] Co de Phone Number [facility] Department [place] [address] * XR Chest 1 View - in PM (08/01/2024 9:27 PM CDT) Anatomical Region Laterality Modality Body, Chest N/A Digital Radiogra phy 08/02/2024 7:33 AM CDT Impressions 08/02/2024 8:42 AM CDT The current study is compared with the prior radiograph dated 07/31/2024 Patient has been extubated. Gastric tube has been removed. An Impella device is in place. Right internal jugular approach Windham-Clair catheter overlies the right main pulmonary artery, [...] is in place. Right internal jugular approach Windham-Clair catheter overlies the right main pulmonary artery, [...] signed by: Edson Sepulveda M.D. Marilee Sandoval TECHNICIAN AUTOMATED EQUIPMENT IMG XR PROCEDURES Final Result * Oxyhemoglobin, pulmonary artery (08/01/2024 8:34 PM CDT) Oxyhemoglobin, PA 56.5 % Comment: Interpretive Data No reference range established. Current interpretive data was last revised 2019. Blood 08/01/2024 8:34 PM CDT 08/01/2024 8:38 PM CDT Selvin Domínguez TECHNICIAN AUTOMATED EQUIPMENT LAB BLOOD ORDERABLES Teetee l Result Performing Organization Address [facility] Co de Phone Number [facility] Department [place] [address] * (ABNORMAL) Hemoglobin total, pulmonary artery (08/01/2024 8:34 PM CDT) Hemoglobin total, PA 8.5(L) 13.0 - 17.5 g/dL Blood 08/01/2024 8:34 PM CDT 08/01/2024 8:38 PM CDT Result [facility] Arabella Gary TECHNICIAN AUTOMATED EQUIPMENT LAB BLOOD ORDERABLES Fi nal Result Performing Organization Address [facility] Co de Phone Number [facility] [place] [address] * Potassium, whole blood (08/01/2024 8:34 PM CDT) Potassium, bld 3.8 3.3 - 4.9 mmol/L Blood 08/01/2024 8:34 PM CDT 08/01/2024 8:38 PM CDT Arabella Gary NP LAB BLOOD ORDERABLES Fi nal Result Performing Organization Address City/[facility] Co de Phone Number [facility] [place] [address] * (ABNORMAL) Blood gas, arterial (08/01/2024 8:34 PM CDT) [facility] pH, Art 7.46(H) 7.35 - 7.45 PCO2, Arterial 31(L) 35 - 45 mmHg [facility] PO2, Arterial 111(H) 83 - 108 mmHg [facility] HCO3 Art (Calculated) 23 20 - 30 mmol/L [facility] BE, art -1 mmol/L [facility] Comment: Interpretive Data No Reference Range Established Current Interpretive Data was last revised on 2017 O2 Sat Art (Measured) 99(H) 90 - 95 % [facility] Blood 08/01/2024 8:34 PM CDT 08/01/2024 8:38 PM CDT us Selvin Domínguez NP LAB BLOOD ORDERABLES Teetee l Result [facility] [place] [address] * POCT glucose (08/01/2024 8:33 PM CDT) [facility] Glucose, POC 133 70 - 199 mg/dL Blood 08/01/2024 8:33 PM CDT 08/01/2024 8:33 PM CDT us Nick Veliz MD LAB POCT ORDERABLES - [place] [address] * Critical Care (08/01/2024 7:18 PM CDT) Narrative de Malu Leal MD - 08/01/2024 7:18 PM CDT Malu Whatley MD 08/02/2024 10:37 AM Critical Care Performed by: [place] [facility] TECHNICIAN AUTOMATED EQUIPMENT Authorized by: [facility] NP CRITICAL CARE: [...] plan with the ICU team and other medical/reimbursement consultant staff, making frequent assessments and decisions [...] documenting in the medical record [facility] TECHNICIAN AUTOMATED EQUIPMENT IN CLINIC/BEDSIDE ORDERABLES F inal Result * Oxyhemoglobin, pulmonary artery (08/01/2024 3:34 PM CDT) Oxyhemoglobin, PA 67.6 % Comment: Interpretive Data No reference range established. Current interpretive data was last revised 2019. Blood 08/01/2024 3:34 PM CDT 08/01/2024 3:39 PM CDT us Selvin Domínguez TECHNICIAN AUTOMATED EQUIPMENT LAB BLOOD ORDERABLES Teetee l Result [facility] [place] [address] * (ABNORMAL) Hemoglobin total, pulmonary artery (08/01/2024 3:34 PM CDT) Hemoglobin total, PA 8.6(L) 13.0 - 17.5 g/dL Blood 08/01/2024 3:34 PM CDT 08/01/2024 3:39 PM CDT Result [facility] Arabella Gary NP LAB BLOOD ORDERABLES Fi nal Result Performing Organization Address City/[facility] Co de Phone Number [facility] [place] [address] * Potassium, whole blood (08/01/2024 3:34 PM CDT) Pathologist [facility] Potassium, bld 3.8 3.3 - 4.9 mmol/L Blood 08/01/2024 3:34 PM CDT 08/01/2024 3:38 PM CDT Result [facility] Arabella Gary NP LAB BLOOD ORDERABLES Fi nal Result Performing Organization Address [facility] Phone Number [facility] [place] [address] * (ABNORMAL) Blood gas, arterial (08/01/2024 3:34 PM CDT) pH, Art 7.44 7.35 - 7.45 PCO2, Arterial 32(L) 35 - 45 mmHg [facility] PO2, Arterial 171(H) 83 - 108 mmHg [facility] HCO3 Art (Calculated) 23 20 - 30 mmol/L [facility] BE, art -2 mmol/L [facility] Comment: Interpretive Data No Reference Range Established Current Interpretive Data was last revised on 2017 O2 Sat Art (Measured) 100(H) 90 - 95 % [facility] Blood 08/01/2024 3:34 PM CDT 08/01/2024 3:38 PM CDT Result [facility] Selvin Domínguez TECHNICIAN AUTOMATED EQUIPMENT LAB BLOOD ORDERABLES Teetee l Result Performing Organization Address [facility] Co de Phone Number [facility] [place] [address] * POCT glucose (08/01/2024 3:30 PM CDT) Glucose, POC 155 70 - 199 mg/dL Blood 08/01/2024 3:30 PM CDT 08/01/2024 3:30 PM CDT us Nick Veliz MD LAB POCT ORDERABLES - DE VICE Final Result Performing Organization Address [facility]/ZIP Co de Phone Number [facility] [place] [address] * Oxyhemoglobin, pulmonary artery (08/01/2024 11:50 AM CDT) Pathologist [facility] Oxyhemoglobin, PA 80.0 % Comment: Interpretive Data No reference range established. Current interpretive data was last revised 2019. Blood 08/01/2024 11:5 0 AM CDT 08/01/2024 12:01 PM CDT us Selvin Domínguez TECHNICIAN AUTOMATED EQUIPMENT LAB BLOOD ORDERABLES Teetee l Result Performing Organization Address [facility] Co de Phone Number [facility] [place] [address] * (ABNORMAL) Hemoglobin total, pulmonary artery (08/01/2024 11:50 AM CDT) Pathologist [facility] Hemoglobin total, PA 8.9(L) 13.0 - 17.5 g/dL Blood 08/01/2024 11:5 0 AM CDT 08/01/2024 12:01 PM CDT Arabella Gary TECHNICIAN AUTOMATED EQUIPMENT LAB BLOOD ORDERABLES Fi nal Result Performing Organization Address [facility]/ZIP Co de Phone Number [facility] [place] [address] * Potassium, whole blood (08/01/2024 11:50 AM CDT) Pathologist [facility] Potassium, bld 4.1 3.3 - 4.9 mmol/L Blood 08/01/2024 11:5 0 AM CDT 08/01/2024 12:01 PM CDT us Arabella Gary TECHNICIAN AUTOMATED EQUIPMENT LAB BLOOD ORDERABLES Fi nal Result Performing Organization Address City/[facility]/ZIP Co de Phone Number [facility] [place] [address] * eGFR (08/01/2024 11:50 AM CDT) [facility] eGFR 63 >=60 mL/min/1. 73 m2 Comment: [...] 08/01/2024 12:09 PM CDT us Marilee Sandoval TECHNICIAN AUTOMATED EQUIPMENT LAB BLOOD ORDERABLES Fin al Result Performing Organization Address City/[facility]/ZIP Co de [facility] [place] [address] * Heparin anti factor Xa activity (08/01/2024 [...] ORDERABLES Fin al Result Performing Organization Address [facility]/State/ZIP Co de Phone Number [facility] [place] [address] * aPTT (08/01/2024 11:50 AM CDT) aPTT [...] ORDERABLES Fin al Result Performing Organization Address [facility] de Phone Number [facility] [place] [address] * (ABNORMAL) Protime-INR (08/01/2024 11:50 AM CDT) Pathologist [facility] PT 14.3(H) 9.7 - 13.0 sec INR 1.32(H) 0.90 - 1.20 [facility] Comment: Interpretive data Oral anticoagulant therapeutic ranges: Venous thromboembolism prophylaxis or treatment: 2.0-3.0 CARDIOLOGY Standard range: 2.0-3.0 High-intensity range: 2.5-3.5 Refer to indication-specific guidelines for appropriate target ranges for prosthetic heart valve replacement. Current interpretive data was last revised on 2019. Blood 08/01/2024 11:5 0 AM CDT 08/01/2024 12:03 PM CDT Marilee Sandoval TECHNICIAN AUTOMATED EQUIPMENT LAB BLOOD ORDERABLES Fin al Result Performing Organization Address [facility] de Phone Number [facility] Department [place] [address] * (ABNORMAL) CBC without differential (08/01/2024 11:50 AM CDT) [facility] WBC 14.50(H) 3.80 - 9.90 K/cumm Hgb 8.7(L) 13.0 - 17.5 g/dL [facility] Hct 25.7(L) 38.9 - 50.3 % [facility] Plt 86(L) 150 - 400 K/cumm [facility] MPV 11.9 9.1 - 12.3 fL [facility] RBC 2.58(L) 4.30 - 5.80 M/cumm [facility] MCV 99.6(H) 81.3 - 96.4 fL [facility] MCH 33.7(H) 27.1 - 33.3 pg [facility] MCHC 33.9 32.3 - 35.7 g/dL [facility] RDW CV 16.6(H) 11.1 - 14.9 % [facility] RDW SD 61.5(H) 35.7 - 48.1 fL [facility] NRBC abs 0.00 0.00 - 0.01 K/cumm [facility] Blood 08/01/2024 11:5 0 AM CDT 08/01/2024 12:09 PM CDT Marilee Sandoval TECHNICIAN AUTOMATED EQUIPMENT LAB BLOOD ORDERABLES Fin al Result [facility] [place] [address] * Basic metabolic panel (08/01/2024 11:50 AM CDT) Pathologist [facility] Sodium 140 135 - 145 mmol/L Potassium, pl 4.4 3.3 - 4.9 mmol/L [facility] Chloride 106 97 - 110 mmol/L [facility] CO2 23 22 - 32 mmol/L [facility] Anion gap 11 2 - 15 mmol/L [facility] BUN 24 6 - 25 mg/dL [facility] Creatinine 1.22 0.80 - 1.30 mg/dL [facility] Glucose 142 70 - 199 mg/dL [facility] Comment: Interpretive Data Fasting glucose >/= 126 [...] 2022. Calcium 9.0 8.5 - 10.3 mg/dL [facility] Blood 08/01/2024 11:5 0 AM CDT 08/01/2024 12:09 PM CDT us Marilee Sandoval TECHNICIAN AUTOMATED EQUIPMENT LAB BLOOD ORDERABLES Fin al Result Performing Organization Address [facility] Co de Phone Number [facility] [place] [address] * POCT glucose (08/01/2024 11:48 AM CDT) Glucose, POC 139 70 - 199 mg/dL Blood 08/01/2024 11:4 8 AM CDT 08/01/2024 11:48 AM CDT Nick Veliz MD LAB POCT ORDERABLES - DE VICE Final Result Performing Organization Address [facility] [place] [address] * Oxyhemoglobin, pulmonary artery (08/01/2024 7:59 AM CDT) Oxyhemoglobin, PA 85.1 % Comment: Interpretive Data No reference range established. Current interpretive data was last revised 2019. Blood 08/01/2024 7:59 AM CDT 08/01/2024 8:04 AM CDT us Selvin Domínguez TECHNICIAN AUTOMATED EQUIPMENT LAB BLOOD ORDERABLES Teetee l Result Performing Organization Address [facility] Co de Phone Number [facility] Department [place] [address] * (ABNORMAL) Hemoglobin total, pulmonary artery (08/01/2024 7:59 AM CDT) Hemoglobin total, PA 8.6(L) 13.0 - 17.5 g/dL Blood 08/01/2024 7:59 AM CDT 08/01/2024 8:04 AM CDT Arabella aGry TECHNICIAN AUTOMATED EQUIPMENT LAB BLOOD ORDERABLES Fi nal Result Performing Organization Address [facility] Co de Phone Number [facility] Department [place] [address] * Potassium, whole blood (08/01/2024 7:59 AM CDT) Potassium, bld 4.4 3.3 - 4.9 mmol/L Blood 08/01/2024 7:59 AM CDT 08/01/2024 8:12 AM CDT Arabella Gary TECHNICIAN AUTOMATED EQUIPMENT LAB BLOOD ORDERABLES Fi nal Result Performing Organization Address [facility] Co de Phone Number [facility] [place] [address] * (ABNORMAL) Blood gas, arterial (08/01/2024 7:59 AM CDT) Pathologist [facility] pH, Art 7.42 7.35 - 7.45 PCO2, Arterial 33(L) 35 - 45 mmHg [facility] PO2, Arterial 174(H) 83 - 108 mmHg [facility] HCO3 Art (Calculated) 22 20 - 30 mmol/L [facility] BE, art -2 mmol/L [facility] Comment: Interpretive Data No Reference Range Established Current Interpretive Data was last revised on 2017 O2 Sat Art (Measured) 99(H) 90 - 95 % [facility] Blood 08/01/2024 7:59 AM CDT 08/01/2024 8:12 AM CDT Selvin Domínguez TECHNICIAN AUTOMATED EQUIPMENT LAB BLOOD ORDERABLES Teetee l Result Performing Organization Address [facility] Co de Phone Number [facility] [place] [address] * POCT glucose (08/01/2024 7:54 AM CDT) Glucose, POC 144 70 - 199 mg/dL Blood 08/01/2024 7:54 AM CDT 08/01/2024 7:54 AM CDT us Nick Veliz MD LAB POCT ORDERABLES - DE VICE Final Result [facility] [place] [address] * Critical Care (08/01/2024 7:00 AM CDT) [...] plan with the ICU team and other medical/reimbursement consultant staff, making frequent assessments and decisions [...] * POCT glucose (08/01/2024 6:17 AM CDT) [facility] Signature Glucose, POC 120 70 - 199 mg/dL Blood 08/01/2024 6:17 AM CDT 08/01/2024 6:17 AM CDT Nick Veliz MD LAB POCT ORDERABLES - DE VICE Final Result Performing Organization Address [facility] Co de Phone Number [facility] [place] [address] * POCT glucose (08/01/2024 5:12 AM CDT) Glucose, POC 141 70 - 199 mg/dL Blood 08/01/2024 5:12 AM CDT 08/01/2024 5:12 AM CDT Nick Veliz MD LAB POCT ORDERABLES - DE VICE Final Result Performing Organization Address [facility] [place] [address] * Oxyhemoglobin, pulmonary artery (08/01/2024 5:11 AM CDT) Oxyhemoglobin, PA 54.5 % Comment: Interpretive Data No reference range established. Current interpretive data was last revised 2019. Blood 08/01/2024 5:11 AM CDT 08/01/2024 5:18 AM CDT Selvin Domínguez TECHNICIAN AUTOMATED EQUIPMENT LAB BLOOD ORDERABLES Teetee l Result Performing Organization Address [facility] Co de Phone Number [facility] [place] [address] * (ABNORMAL) Hemoglobin total, pulmonary artery (08/01/2024 5:11 AM CDT) Hemoglobin total, PA 8.3(L) 13.0 - 17.5 g/dL Blood 08/01/2024 5:11 AM CDT 08/01/2024 5:18 AM CDT Arabella Gary TECHNICIAN AUTOMATED EQUIPMENT LAB BLOOD ORDERAB[place] [address] * (ABNORMAL) Blood gas, arterial (08/01/2024 5:11 AM CDT) pH, Art 7.43 7.35 - 7.45 PCO2, Arterial 32(L) 35 - 45 mmHg [facility] PO2, Arterial 78(L) 83 - 108 mmHg [facility] HCO3 Art (Calculated) 22 20 - 30 mmol/L [facility] BE, art -2 mmol/L [facility] Comment: Interpretive Data No Reference Range Established Current Interpretive Data was last revised on 2017 O2 Sat Art (Measured) 96(H) 90 - 95 % [facility] Blood 08/01/2024 5:11 AM CDT 08/01/2024 5:18 AM CDT Selvin Domínguez TECHNICIAN AUTOMATED EQUIPMENT LAB BLOOD ORDERABLES Teetee l Result [facility] [place] [address] * POCT glucose (08/01/2024 4:01 AM CDT) Glucose, POC 106 70 - 199 mg/dL Blood 08/01/2024 4:01 AM CDT 08/01/2024 4:01 AM CDT Nick Veliz MD LAB POCT ORDERABLES - [place] [address] * POCT glucose (08/01/2024 2:16 AM CDT) Glucose, POC 119 70 - 199 mg/dL Blood 08/01/2024 2:16 AM CDT 08/01/2024 2:16 AM CDT Nick Veliz MD LAB POCT ORDERABLES - DE VICE Final Result Performing Organization Address [facility] Phone Number [facility] [place] [address] * POCT glucose (08/01/2024 1:27 AM CDT) Glucose, POC 128 70 - 199 mg/dL Blood 08/01/2024 1:27 AM CDT 08/01/2024 1:27 AM CDT Nick Veliz MD LAB POCT ORDERABLES - DE VICE Final Result Performing Organization Address [facility] Phone Number [facility] [place] [place] [address] * Oxyhemoglobin, central venous (08/01/2024 12:26 AM CDT) Oxyhemoglobin, CV 80.5 % Comment: Interpretive Data No reference range established. Current interpretive data was last revised 2019. Blood 08/01/2024 12:2 6 AM CDT 08/01/2024 12:44 AM CDT Marilee Sandoval NP LAB BLOOD ORDERABLES Fin al Result Performing Organization Address [facility] Co de Phone Number [facility] [place] [address] * Oxyhemoglobin, pulmonary artery (08/01/2024 12:26 AM CDT) Oxyhemoglobin, PA 70.4 % Comment: Interpretive Data No reference range established. Current interpretive data was last revised 2019. Blood 08/01/2024 12:2 6 AM CDT 08/01/2024 12:34 AM CDT Marilee Sandoval TECHNICIAN AUTOMATED EQUIPMENT LAB BLOOD ORDERABLES Fin al Result Performing Organization Address [facility] Co de Phone Number [facility] [place] [address] * Lactate (08/01/2024 12:26 AM CDT) Lactate 1.2 0.7 - 2.0 mmol/L Blood 08/01/2024 12:2 6 AM CDT 08/01/2024 12:44 AM CDT us Selvin Domínguez TECHNICIAN AUTOMATED EQUIPMENT LAB BLOOD ORDERABLES Teetee l Result Performing Organization Address [facility] Co de Phone Number [facility] [place] [address] * Hemoglobin, plasma (08/01/2024 12:26 AM CDT) Hemoglobin, Plasma <30 <=50 mg/dL Blood 08/01/2024 12:2 6 AM CDT 08/01/2024 12:35 AM CDT Marilee Sandoval TECHNICIAN AUTOMATED EQUIPMENT LAB BLOOD ORDERABLES Fin al Result Performing Organization Address [facility] de Phone Number [facility] [place] [address] * Potassium, whole blood (08/01/2024 12:26 AM CDT) Potassium, bld 4.4 3.3 - 4.9 mmol/L Blood 08/01/2024 12:2 6 AM CDT 08/01/2024 12:34 AM CDT us Arabella Gary NP LAB BLOOD ORDERABLES Fi nal Result Performing Organization Address [facility] de Phone Number [facility] [place] [address] * (ABNORMAL) eGFR (08/01/2024 12:26 AM CDT) [...] ORDERABLES Fin al Result Performing Organization Address [facility] Co de Phone Number MARGI SANTA Keke [facility] [place] [address] * Heparin anti factor Xa activity (08/01/2024 12:26 AM CDT) Pathologist [facility] Anti Factor Xa <0.10 IUnits/mL Comment: Interpretive [...] ORDERABLES Fin al Result Performing Organization Address City/[facility] Co de Phone Number MARGI [facility] [place] [address] * Lactate, whole blood (08/01/2024 12:26 AM CDT) Lactate, bld 1.2 0.7 - 2.0 mmol/L Blood 08/01/2024 12:2 6 AM CDT 08/01/2024 12:34 AM CDT Nick Veliz MD LAB BLOOD ORDERABLES Fin al Result Performing Organization Address City/State/[facility] Co de Phone Number [facility] [place] [address] * aPTT (08/01/2024 12:26 AM CDT) aPTT [...] ORDERABLES Fin al Result Performing Organization Address [facility] Co de Phone Number MARGI [facility] [place] [address] * (ABNORMAL) Protime-INR (08/01/2024 12:26 AM CDT) PT 14.2(H) 9.7 - 13.0 sec INR 1.31(H) 0.90 - 1.20 [facility] Comment: Interpretive data Oral anticoagulant therapeutic ranges: Venous thromboembolism prophylaxis or treatment: 2.0-3.0 CARDIOLOGY Standard range: 2.0-3.0 High-intensity range: 2.5-3.5 Refer to indication-specific guidelines for appropriate target ranges for prosthetic heart valve replacement. Current interpretive data was last revised on 2019. Blood 08/01/2024 12:2 6 AM CDT 08/01/2024 12:34 AM CDT Marilee Sandoval NP LAB BLOOD ORDERABLES Fin al Result Performing Organization Address [facility] de Phone Number MARGI [facility] [place] [address] * (ABNORMAL) Fibrinogen (08/01/2024 12:26 AM CDT) Fibrinogen 414(H) 170 - 400 mg/dL Blood 08/01/2024 12:2 6 AM CDT 08/01/2024 12:34 AM CDT Nick Veliz MD LAB BLOOD ORDERABLES Fin al Result Performing Organization Address [facility]/ZIP Co de Phone Number [facility] [place] [address] * (ABNORMAL) CBC without differential (08/01/2024 12:26 AM CDT) Pathologist [facility] WBC 12.94(H) 3.80 - 9.90 K/cumm Hgb 8.6(L) 13.0 - 17.5 g/dL [facility] Hct 25.3(L) 38.9 - 50.3 % [facility] Plt 73(L) 150 - 400 K/cumm [facility] MPV 11.5 9.1 - 12.3 fL [facility] RBC 2.57(L) 4.30 - 5.80 M/cumm [facility] MCV 98.4(H) 81.3 - 96.4 fL [facility] MCH 33.5(H) 27.1 - 33.3 pg [facility] MCHC 34.0 32.3 - 35.7 g/dL [facility] RDW CV 17.0(H) 11.1 - 14.9 % [facility] RDW SD 61.4(H) 35.7 - 48.1 fL [facility] NRBC abs 0.00 0.00 - 0.01 K/cumm [facility] Blood 08/01/2024 12:2 6 AM CDT 08/01/2024 12:35 AM CDT Marilee Sandoval NP LAB BLOOD ORDERABLES Fin al Result [facility] Department [place] [address] * (ABNORMAL) Phosphorus (08/01/2024 12:26 AM CDT) Pathologist [facility] Phosphorus, pl 5.0(H) 2.3 - 4.5 mg/dL Blood 08/01/2024 12:2 6 AM CDT 08/01/2024 12:35 AM CDT Selvin Domínguez TECHNICIAN AUTOMATED EQUIPMENT LAB BLOOD ORDERABLES Teetee l Result Performing Organization Address [facility] Co de Phone Number [facility] [place] [address] * (ABNORMAL) Magnesium (08/01/2024 12:26 AM CDT) Magnesium 2.6(H) 1.4 - 2.5 mg/dL Blood 08/01/2024 12:2 6 AM CDT 08/01/2024 12:35 AM CDT Selvin Domínguez TECHNICIAN AUTOMATED EQUIPMENT LAB BLOOD ORDERABLES Teetee l Result Performing Organization Address [facility] de Phone Number [facility] [place] [address] * (ABNORMAL) Lactate dehydrogenase (LD) (08/01/2024 12:26 AM CDT) Lactate dehydrogenase (LDH) 400(H) 100 - 250 Units/L Blood 08/01/2024 12:2 6 AM CDT 08/01/2024 12:35 AM CDT Marilee Sandoval TECHNICIAN AUTOMATED EQUIPMENT LAB BLOOD ORDERABLES Fin al Result Performing Organization Address [facility] Co de Phone Number [facility] [place] [address] * (ABNORMAL) Blood gas, arterial (08/01/2024 12:26 AM CDT) pH, Art 7.38 7.35 - 7.45 PCO2, Arterial 36 35 - 45 mmHg [facility] PO2, Arterial 136(H) 83 - 108 mmHg [facility] HCO3 Art (Calculated) 22 20 - 30 mmol/L [facility] BE, art -4 mmol/L [facility] Comment: Interpretive Data No Reference Range Established Current Interpretive Data was last revised on 2017 O2 Sat Art (Measured) 99(H) 90 - 95 % [facility] Blood 08/01/2024 12:2 6 AM CDT 08/01/2024 12:34 AM CDT Selvin Domínguez TECHNICIAN AUTOMATED EQUIPMENT LAB BLOOD ORDERABLES Teetee l Result Performing Organization Address City/[facility]/ZIP Co de Phone Number [facility] [place] [address] * (ABNORMAL) Creatine kinase (CK), total (08/01/2024 12:26 AM CDT) Pathologist [facility] CK 316(H) 40 - 300 Units/L Blood 08/01/2024 12:2 6 AM CDT 08/01/2024 12:35 AM CDT Result [facility] Nick Veliz MD LAB BLOOD ORDERABLES Fin al Result Performing Organization Address [facility] Co de Phone Number [facility] [place] [address] * (ABNORMAL) Hepatic function panel (08/01/2024 12:26 AM CDT) Bilirubin, total 1.4(H) 0.1 - 1.2 mg/dL Bilirubin, direct 0.7(H) 0.1 - 0.3 mg/dL [facility] Protein, pl 5.6(L) 6.5 - 8.5 g/dL [facility] Albumin 3.5 3.5 - 5.0 g/dL [facility] Alk phos 40 40 - 130 Units/L [facility] ALT 8 7 - 55 Units/L [facility] AST 66(H) 10 - 50 Units/L [facility] Blood 08/01/2024 12:2 6 AM CDT 08/01/2024 12:35 AM CDT Marilee Sandoval TECHNICIAN AUTOMATED EQUIPMENT LAB BLOOD ORDERABLES Fin al Result [facility] [place] [address] * (ABNORMAL) Basic metabolic panel (08/01/2024 12:26 AM CDT) Sodium 142 135 - 145 mmol/L Potassium, pl 4.6 3.3 - 4.9 mmol/L [facility] Chloride 108 97 - 110 mmol/L [facility] CO2 22 22 - 32 mmol/L [facility] Anion gap 12 2 - 15 mmol/L [facility] BUN 27(H) 6 - 25 mg/dL [facility] Creatinine 1.42(H) 0.80 - 1.30 mg/dL [facility] Glucose 137 70 - 199 mg/dL [facility] Comment: Interpretive Data Fasting glucose >/= 126 [...] 2022. Calcium 9.2 8.5 - 10.3 mg/dL [facility] Blood 08/01/2024 12:2 6 AM CDT 08/01/2024 12:35 AM CDT Nick Veliz MD LAB BLOOD ORDERABLES Fin al Result Performing Organization Address City/[facility]/ZIP Co de Phone Number [facility] [place] [address] * POCT glucose (08/01/2024 12:23 AM CDT) Glucose, POC 134 70 - 199 mg/dL Blood 08/01/2024 12:2 3 AM CDT 08/01/2024 12:23 AM CDT Nick Veliz MD LAB POCT ORDERABLES - DE VICE Final Result Performing Organization Address [facility] Co de Phone Number [facility] [place] [place] [address] * POCT glucose (07/31/2024 10:10 PM CDT) Glucose, POC 107 70 - 199 mg/dL Blood 07/31/2024 10:1 0 PM CDT 07/31/2024 10:10 PM CDT Nick Veliz MD LAB POCT ORDERABLES - DE VICE Final Result Performing Organization Address [facility] Co il Phone Number [facility] [place] [address] * Oxyhemoglobin, pulmonary artery (07/31/2024 9:19 PM CDT) Oxyhemoglobin, PA 71.0 % Comment: Interpretive Data No reference range established. Current interpretive data was last revised 2019. Blood 07/31/2024 9:19 PM CDT 07/31/2024 9:23 PM CDT Selvin Domínguez TECHNICIAN AUTOMATED EQUIPMENT LAB BLOOD ORDERABLES Teetee l Result Performing Organization Address [facility] [place] [address] * (ABNORMAL) Hemoglobin total, pulmonary artery (07/31/2024 9:19 PM CDT) Hemoglobin total, PA 8.8(L) 13.0 - 17.5 g/dL Blood 07/31/2024 9:19 PM CDT 07/31/2024 9:23 PM CDT Arabella Gary TECHNICIAN AUTOMATED EQUIPMENT LAB BLOOD ORDERABLES Fi nal Result [facility] [place] [address] * (ABNORMAL) Blood gas, arterial (07/31/2024 9:19 PM CDT) Pathologist [facility] pH, Art 7.40 7.35 - 7.45 PCO2, Arterial 30(L) 35 - 45 mmHg [facility] PO2, Arterial 159(H) 83 - 108 mmHg [facility] HCO3 Art (Calculated) 19(L) 20 - 30 mmol/L [facility] BE, art -5 mmol/L [facility] Comment: Interpretive Data No Reference Range Established Current Interpretive Data was last revised on 2017 O2 Sat Art (Measured) 100(H) 90 - 95 % [facility] Blood 07/31/2024 9:19 PM CDT 07/31/2024 9:23 PM CDT Selvin Domínguez TECHNICIAN AUTOMATED EQUIPMENT LAB BLOOD ORDERABLES Teetee l Result Performing Organization Address [facility]/ZIP Co de Phone Number [facility] [place] [address] * POCT glucose (07/31/2024 9:17 PM CDT) Glucose, POC 116 70 - 199 mg/dL Blood 07/31/2024 9:17 PM CDT 07/31/2024 9:17 PM CDT Nick Veliz MD LAB POCT ORDERABLES - DE VICE Final Result Performing Organization Address [facility]/ZIP Co de Phone Number [facility] [place] [address] * XR Chest 1 View - in [...] below the level of the hemidiaphragm. A Windham-Clair catheter is in place, tip overlies the [...] below the level of the hemidiaphragm. A Windham-Clair catheter is in place, tip overlies the [...] it. Electronically signed by: Toyin Centeno M.D. Result [facility] Marilee Sandoval NP IMG XR PROCEDURES Final [...] plan with the ICU team and other medical/reimbursement consultant staff, making frequent assessments and decisions [...] with consultants and the medical staff Result [facility] Mt Julien NP IN CLINIC/BEDSIDE ORDERABLES F inal Result * Oxyhemoglobin, pulmonary artery (07/31/2024 7:48 PM CDT) Oxyhemoglobin, PA 70.5 % Comment: Interpretive Data No reference range established. Current interpretive data was last revised 2019. Blood 07/31/2024 7:48 PM CDT 07/31/2024 7:53 PM CDT Result [facility] Selvin Domínguez TECHNICIAN AUTOMATED EQUIPMENT LAB BLOOD ORDERABLES Teetee l Result Performing Organization Address [facility] Co de Phone Number [facility] [place] [place] [address] * (ABNORMAL) Hemoglobin total, pulmonary artery (07/31/2024 7:48 PM CDT) Hemoglobin total, PA 9.0(L) 13.0 - 17.5 g/dL Blood 07/31/2024 7:48 PM CDT 07/31/2024 7:53 PM CDT Arabella Gary TECHNICIAN AUTOMATED EQUIPMENT LAB BLOOD ORDERABLES Fi nal Result Performing Organization Address [facility] Co de Phone Number [facility] [place] [address] * Potassium, whole blood (07/31/2024 7:48 PM CDT) Pathologist [facility] Potassium, bld 4.2 3.3 - 4.9 mmol/L Blood 07/31/2024 7:48 PM CDT 07/31/2024 7:53 PM CDT Arabella Gary NP LAB BLOOD ORDERABLES Fi nal Result Performing Organization Address [facility] Co de Phone Number [facility] [place] [address] * (ABNORMAL) Blood gas, arterial (07/31/2024 7:48 PM CDT) pH, Art 7.42 7.35 - 7.45 PCO2, Arterial 31(L) 35 - 45 mmHg [facility] PO2, Arterial 170(H) 83 - 108 mmHg [facility] HCO3 Art (Calculated) 21 20 - 30 mmol/L [facility] BE, art -4 mmol/L [facility] Comment: Interpretive Data No Reference Range Established Current Interpretive Data was last revised on 2017 O2 Sat Art (Measured) 98(H) 90 - 95 % [facility] Blood 07/31/2024 7:48 PM CDT 07/31/2024 7:53 PM CDT us Selvin Domínguez TECHNICIAN AUTOMATED EQUIPMENT LAB BLOOD ORDERABLES Teetee l Result Performing Organization Address City/[facility] Co de Phone Number [facility] [place] [address] * POCT glucose (07/31/2024 7:44 PM CDT) Glucose, POC 112 70 - 199 mg/dL Blood 07/31/2024 7:44 PM CDT 07/31/2024 7:44 PM CDT us Nick Veliz MD LAB POCT ORDERABLES - DE VICE Final Result Performing Organization Address [facility] Co de Phone Number [facility] [place] [address] * Transfuse RBC (07/31/2024 7:30 PM CDT) Blood us Yazmin Alvarado TECHNICIAN AUTOMATED EQUIPMENT BLOOD TRANSFUSION ORDChet MAYES Final Result Performing Organization Address City/[facility] Co de Phone Number [facility] Department [place] [address] * POCT glucose (07/31/2024 6:15 PM CDT) Glucose, POC 86 70 - 199 mg/dL Blood 07/31/2024 6:15 PM CDT 07/31/2024 6:15 PM CDT us Nick Veliz MD LAB POCT ORDERABLES - DE VICE Final Result Performing Organization Address City/[facility] Co de Phone Number [facility] Department [place] [address] * POCT glucose (07/31/2024 3:14 PM CDT) [facility] Glucose, POC 101 70 - 199 mg/dL Blood 07/31/2024 3:14 PM CDT 07/31/2024 3:14 PM CDT Nick Veliz MD LAB POCT ORDERABLES - DE VICE Final Result Performing Organization Address City/[facility]/ZIP Co de Phone Number [facility] [place] [address] * Prepare RBC: 1 Units (07/31/2024 2:53 PM CDT) [facility] Product code [id number] Unit Number [id number] [facility] Product Blood Type APOS [facility] Dispense Status PRESUMED TRANSFUSED [facility] Blood 07/31/2024 2:53 PM CDT 07/31/2024 2:54 PM CDT Narrative [facility] - 08/01/2024 6:01 AM CDT Are special requirements needed? (All products are leukoreduced and CMV- safe)- >No Date required:-[id number] LRRBC # of [id number] Reasons:-Cardiovascular disease, Hgb <8 g/dL} Yazmin Alvarado NP BLOOD BANK PRODUCT ORD ERABLES Final Result [facility] [place] [address] * Methemoglobin, art (07/31/2024 2:10 PM CDT) [facility] Methemoglobin, art 1.3 0.0 - 1.9 % Blood 07/31/2024 2:10 PM CDT 07/31/2024 2:15 PM CDT Nick Veliz MD LAB BLOOD ORDERABLES Fin al [facility] [place] [address] * Potassium, whole blood (07/31/2024 2:10 PM CDT) Potassium, bld 4.4 3.3 - 4.9 mmol/L Blood 07/31/2024 2:10 PM CDT 07/31/2024 2:15 PM CDT Arabella Gary NP LAB BLOOD ORDERABLES Fi nal Result Performing Organization Address [facility] Co de Phone Number [facility] [place] [address] * (ABNORMAL) eGFR (07/31/2024 2:10 PM CDT) eGFR 50(L) >=60 mL/min/1. 73 m2 Comment: [...] CDT 07/31/2024 2:22 PM CDT Marilee Sandoval TECHNICIAN AUTOMATED EQUIPMENT LAB BLOOD ORDERABLES Fin al Result Performing Organization Address City/[facility]/ZIP Co de Phone Number MARGI SANTA [facility] [place] [address] * Heparin anti factor Xa activity (07/31/2024 [...] CDT 07/31/2024 2:29 PM CDT Marilee Sandoval TECHNICIAN AUTOMATED EQUIPMENT LAB BLOOD ORDERABLES Fin al Result MARGI SANTA Keke [facility] [place] [address] * aPTT (07/31/2024 2:10 PM CDT) aPTT 30 28 - 38 sec Comment: Interpretive Data Heparin therapeutic range: 66.0 - 100.0 seconds. Range based on correlation with therapeutic heparin activity range of 0.3 - 0.7 Units/mL. Current interpretive data was last revised on 2023. Blood 07/31/2024 2:10 PM CDT 07/31/2024 2:29 PM CDT Marilee Sandoval TECHNICIAN AUTOMATED EQUIPMENT LAB BLOOD ORDERABLES Fin al Result Performing Organization Address [facility] de Phone Number [facility] [place] [address] * (ABNORMAL) Protime-INR (07/31/2024 2:10 PM CDT) PT 15.9(H) 9.7 - 13.0 sec INR 1.46(H) 0.90 - 1.20 [facility] Comment: Interpretive data Oral anticoagulant therapeutic ranges: Venous thromboembolism prophylaxis or treatment: 2.0-3.0 CARDIOLOGY Standard range: 2.0-3.0 High-intensity range: 2.5-3.5 Refer to indication-specific guidelines for appropriate target ranges for prosthetic heart valve replacement. Current interpretive data was last revised on 2019. Blood 07/31/2024 2:10 PM CDT 07/31/2024 2:29 PM CDT Marilee Sandoval NP LAB BLOOD ORDERABLES Fin al Result Performing Organization Address [facility] de Phone Number [facility] Department [place] [address] * (ABNORMAL) CBC without differential (07/31/2024 2:10 PM CDT) WBC 11.86(H) 3.80 - 9.90 K/cumm Hgb 7.8(L) 13.0 - 17.5 g/dL [facility] Hct 22.8(L) 38.9 - 50.3 % [facility] Plt 95(L) 150 - 400 K/cumm [facility] MPV 10.7 9.1 - 12.3 fL [facility] RBC 2.30(L) 4.30 - 5.80 M/cumm [facility] MCV 99.1(H) 81.3 - 96.4 fL [facility] MCH 33.9(H) 27.1 - 33.3 pg [facility] MCHC 34.2 32.3 - 35.7 g/dL [facility] RDW CV 15.4(H) 11.1 - 14.9 % [facility] RDW SD 56.2(H) 35.7 - 48.1 fL [facility] NRBC abs 0.00 0.00 - 0.01 K/cumm [facility] Blood 07/31/2024 2:10 PM CDT 07/31/2024 2:22 PM CDT Marilee Sandoval TECHNICIAN AUTOMATED EQUIPMENT LAB BLOOD ORDERABLES Fin al Result Performing Organization Address [facility] de Phone Number [facility] [place] [address] * (ABNORMAL) Blood gas, arterial (07/31/2024 2:10 PM CDT) pH, Art 7.45 7.35 - 7.45 PCO2, Arterial 32(L) 35 - 45 mmHg [facility] PO2, Arterial 175(H) 83 - 108 mmHg [facility] HCO3 Art (Calculated) 23 20 - 30 mmol/L [facility] BE, art -1 mmol/L [facility] Comment: Interpretive Data No Reference Range Established Current Interpretive Data was last revised on 2017 O2 Sat Art (Measured) 100(H) 90 - 95 % [facility] Blood 07/31/2024 2:10 PM CDT 07/31/2024 2:15 PM CDT Selvin Domínguez TECHNICIAN AUTOMATED EQUIPMENT LAB BLOOD ORDERABLES Teetee l Result Performing Organization Address [facility] Co de Phone Number [facility] [place] [address] * (ABNORMAL) Basic metabolic panel (07/31/2024 2:10 PM CDT) [facility] Sodium 141 135 - 145 mmol/L Potassium, pl 4.6 3.3 - 4.9 mmol/L [facility] Chloride 108 97 - 110 mmol/L [facility] CO2 25 22 - 32 mmol/L [facility] Anion gap 8 2 - 15 mmol/L [facility] BUN 25 6 - 25 mg/dL [facility] Creatinine 1.48(H) 0.80 - 1.30 mg/dL [facility] Glucose 111 70 - 199 mg/dL [facility] Comment: Interpretive Data Fasting glucose >/= 126 [...] 2022. Calcium 9.0 8.5 - 10.3 mg/dL [facility] Blood 07/31/2024 2:10 PM CDT 07/31/2024 2:22 PM CDT Marilee Sandoval TECHNICIAN [employer]OMATED EQUIPMENT LAB BLOOD ORDERABLES [facility] al Result [facility] [place] [address] * POCT glucose (07/31/2024 2:08 PM CDT) [facility] Glucose, POC 121 70 - 199 mg/dL Blood 07/31/2024 2:08 PM CDT 07/31/2024 2:08 PM CDT Nick Veliz MD LAB POCT ORDERABLES - DE VICE Final Result Performing Organization Address [facility] Co de Phone Number [facility] [place] [address] * POCT glucose (07/31/2024 12:17 PM CDT) Glucose, POC 121 70 - 199 mg/dL Blood 07/31/2024 12:1 7 PM CDT 07/31/2024 12:17 PM CDT Nick Veliz MD LAB POCT ORDERABLES - DE VICE Final Result Performing Organization Address [facility] Co il Phone Number [facility] [place] [address] * POCT glucose (07/31/2024 11:29 AM CDT) Glucose, POC 121 70 - 199 mg/dL Blood 07/31/2024 11:2 9 AM CDT 07/31/2024 11:29 AM CDT Nick Veliz MD LAB POCT ORDERABLES - DE VICE Final Result Performing Organization Address [facility] Co de Phone Number [facility] [place] [address] * Oxyhemoglobin, central venous (07/31/2024 10:35 AM CDT) Oxyhemoglobin, CV 84.5 % Comment: Interpretive Data No reference range established. Current interpretive data was last revised 2019. Blood 07/31/2024 10:3 5 AM CDT 07/31/2024 10:40 AM CDT Selvin Domínguez NP LAB BLOOD ORDERABLES Teetee l Result Performing Organization Address City/[facility] Co de Phone Number [facility] [place] [address] * Oxyhemoglobin, pulmonary artery (07/31/2024 10:35 AM CDT) Oxyhemoglobin, PA 88.9 % Comment: Interpretive Data No reference range established. Current interpretive data was last revised 2019. Blood 07/31/2024 10:3 5 AM CDT 07/31/2024 10:40 AM CDT Selvin Domínguez TECHNICIAN [employer]ATED EQUIPMENT LAB BLOOD ORDERABLES Teetee l Result Performing Organization Address [facility] de Phone Number [facility] [place] [address] * (ABNORMAL) Hemoglobin total, pulmonary artery (07/31/2024 10:35 AM CDT) Hemoglobin total, PA 7.9(L) 13.0 - 17.5 g/dL Blood 07/31/2024 10:3 5 AM CDT 07/31/2024 10:40 AM CDT us Arabella Gary NP LAB BLOOD ORDERABLES Fi nal Result Performing Organization Address [facility] de Phone Number [facility] Department [place] [address] * Hemoglobin, plasma (07/31/2024 10:35 AM CDT) Hemoglobin, Plasma <30 <=50 mg/dL Blood 07/31/2024 10:3 5 AM CDT 07/31/2024 10:45 AM CDT Nick Veliz MD LAB BLOOD ORDERABLES Fin al Result Performing Organization Address [facility] Co de Phone Number [facility] [place] [address] * (ABNORMAL) eGFR (07/31/2024 10:35 AM CDT) [...] ORDERABLES Fin al Result MARGI SANTA [facility] [place] [address] * Heparin anti factor Xa activity (07/31/2024 [...] ORDERABLES Fin al Result Performing Organization Address [facility] de Phone Number [facility] [place] [place] [address] * (ABNORMAL) Blood gas, arterial (07/31/2024 10:35 AM CDT) pH, Art 7.43 7.35 - 7.45 PCO2, Arterial 31(L) 35 - 45 mmHg [facility] PO2, Arterial 184(H) 83 - 108 mmHg [facility] HCO3 Art (Calculated) 21 20 - 30 mmol/L [facility] BE, art -3 mmol/L [facility] Comment: Interpretive Data No Reference Range Established Current Interpretive Data was last revised on 2017 O2 Sat Art (Measured) 100(H) 90 - 95 % [facility] Blood 07/31/2024 10:3 5 AM CDT 07/31/2024 10:40 AM CDT Selvin Domínguez NP LAB BLOOD ORDERABLES Teetee l Result Performing Organization Address [facility] Co de Phone Number [facility] [place] [address] * (ABNORMAL) Creatine kinase (CK), total (07/31/2024 10:35 AM CDT) Pathologist [facility] CK 479(H) 40 - 300 Units/L Blood 07/31/2024 10:3 5 AM CDT 07/31/2024 10:45 AM CDT Narrative [facility] - 07/31/2024 11:21 AM CDT Do Not delete for IMPACT trial Nick Veliz MD LAB BLOOD ORDERABLES Fin al Result [facility] [place] [address] * (ABNORMAL) Comprehensive metabolic panel (07/31/2024 10:35 AM CDT) Pathologist [facility] Sodium 138 135 - 145 mmol/L Potassium, pl 4.8 3.3 - 4.9 mmol/L [facility] Chloride 105 97 - 110 mmol/L [facility] CO2 22 22 - 32 mmol/L [facility] Anion gap 11 2 - 15 mmol/L [facility] BUN 25 6 - 25 mg/dL [facility] Creatinine 1.53(H) 0.80 - 1.30 mg/dL [facility] Glucose 136 70 - 199 mg/dL [facility] Comment: Interpretive Data Fasting glucose >/= 126 [...] 2022. Calcium 9.4 8.5 - 10.3 mg/dL [facility] Bilirubin, total 1.2 0.1 - 1.2 mg/dL [facility] Protein, pl 5.1(L) 6.5 - 8.5 g/dL [facility] Albumin 3.2(L) 3.5 - 5.0 g/dL [facility] Alk phos 33(L) 40 - 130 Units/L [facility] ALT 13 7 - 55 Units/L [facility] AST 96(H) 10 - 50 Units/L [facility] Blood 07/31/2024 10:3 5 AM CDT 07/31/2024 10:45 AM CDT Nick Veliz MD LAB BLOOD ORDERABLES Fin al Result Performing Organization Address City/[facility]/ZIP Co de Phone Number [facility] [place] [address] * POCT glucose (07/31/2024 10:33 AM CDT) Glucose, POC 157 70 - 199 mg/dL Blood 07/31/2024 10:3 3 AM CDT 07/31/2024 10:33 AM CDT Nick Veliz MD LAB POCT ORDERABLES - DE VICE Final Result Performing Organization Address [facility] Co de Phone Number [facility] [place] [address] * Oxyhemoglobin, pulmonary artery (07/31/2024 9:57 AM CDT) Oxyhemoglobin, PA 89.6 % Comment: Interpretive Data No reference range established. Current interpretive data was last revised 2019. Blood 07/31/2024 9:57 AM CDT 07/31/2024 10:00 AM CDT Selvin Domínguez NP LAB BLOOD ORDERABLES Teetee l Result Performing Organization Address City/[facility]/ZIP Co de Phone Number [facility] Department [place] [address] * (ABNORMAL) Hemoglobin total, pulmonary artery (07/31/2024 9:57 AM CDT) [facility] Hemoglobin total, PA 8.8(L) 13.0 - 17.5 g/dL Blood 07/31/2024 9:57 AM CDT 07/31/2024 10:00 AM CDT Arabella Gary TECHNICIAN [employer]ATED EQUIPMENT LAB BLOOD ORDERABLES Fi nal Result Performing Organization Address City/[facility] [place] [address] * Potassium, whole blood (07/31/2024 9:57 AM CDT) [facility] Potassium, bld 4.5 3.3 - 4.9 mmol/L Blood 07/31/2024 9:57 AM CDT 07/31/2024 10:00 AM CDT Arabella Gary NP LAB BLOOD ORDERABLES Fi nal Result Performing Organization Address City/[facility] [place] [address] * (ABNORMAL) Blood gas, arterial (07/31/2024 9:57 AM CDT) [facility] pH, Art 7.42 7.35 - 7.45 PCO2, Arterial 30(L) 35 - 45 mmHg [facility] PO2, Arterial 185(H) 83 - 108 mmHg [facility] HCO3 Art (Calculated) 20 20 - 30 mmol/L [facility] BE, art -4 mmol/L [facility] Comment: Interpretive Data No Reference Range Established Current Interpretive Data was last revised on 2017 O2 Sat Art (Measured) 100(H) 90 - 95 % [facility] Blood 07/31/2024 9:57 AM CDT 07/31/2024 10:00 AM CDT us Selvin Domínguez TECHNICIAN [employer]ATED EQUIPMENT LAB BLOOD ORDERABLES Teetee keith Result [facility] Department [place] [address] * Critical Care (07/31/2024 8:58 AM CDT) [...] plan with the ICU team and other medical/reimbursement consultant staff, making frequent assessments and decisions [...] left atrial appendage clipping. Right internal jugular Windham-Clair catheter tip overlies the main pulmonary artery. [...] left atrial appendage clipping. Right internal jugular Windham-Clair catheter tip overlies the main pulmonary artery. [...] signed by: Toyin Centeno M.D. Marilee Sandoval TECHNICIAN AUTOMATED EQUIPMENT IMG XR PROCEDURES Final Result * POCT glucose (07/31/2024 8:29 AM CDT) Glucose, POC 128 70 - 199 mg/dL Blood 07/31/2024 8:29 AM CDT 07/31/2024 8:29 AM CDT Nick Veliz MD LAB POCT ORDERABLES - DE VICE Final Result Performing Organization Address City/[facility]/[place] [address] * POCT glucose (07/31/2024 6:58 AM CDT) Glucose, POC 95 70 - 199 mg/dL Blood 07/31/2024 6:58 AM CDT 07/31/2024 6:58 AM CDT Nick Veliz MD LAB POCT ORDERABLES - DE VICE Final Result Performing Organization Address [facility] [place] [address] * POCT glucose (07/31/2024 6:04 AM CDT) Glucose, POC 89 70 - 199 mg/dL Blood 07/31/2024 6:04 AM CDT 07/31/2024 6:04 AM CDT Nick Veliz MD LAB POCT ORDERABLES - DE VICE Final Result Performing Organization Address [facility]/ZIP Co de Phone Number [facility] [place] [address] * POCT glucose (07/31/2024 5:26 AM CDT) Glucose, POC 105 70 - 199 mg/dL Blood 07/31/2024 5:26 AM CDT 07/31/2024 5:26 AM CDT us Nick Veliz MD LAB POCT ORDERABLES - DE VICE Final Result Performing Organization Address City/[facility]/ZIP Co de Phone Number [facility] [place] [address] * Oxyhemoglobin, pulmonary artery (07/31/2024 5:25 AM CDT) Oxyhemoglobin, PA 62.0 % Comment: Interpretive Data No reference range established. Current interpretive data was last revised 2019. Blood 07/31/2024 5:25 AM CDT 07/31/2024 5:33 AM CDT us Selvin Domínguez TECHNICIAN AUT[employer]ATED EQUIPMENT LAB BLOOD ORDERABLES Teetee l Result Performing Organization Address City/[facility] Co de Phone Number [facility] [place] [address] * (ABNORMAL) Hemoglobin total, pulmonary artery (07/31/2024 5:25 AM CDT) Hemoglobin total, PA 8.7(L) 13.0 - 17.5 g/dL Blood 07/31/2024 5:25 AM CDT 07/31/2024 5:33 AM CDT Arabella Gary TECHNICIAN AUTOMATED EQUIPMENT LAB BLOOD ORDERABLES Fi nal Result Performing Organization Address [facility] Co de Phone Number [facility] Department [place] [address] * (ABNORMAL) Lactate (07/31/2024 5:25 AM CDT) Lactate 2.3(H) 0.7 - 2.0 mmol/L Blood 07/31/2024 5:25 AM CDT 07/31/2024 5:36 AM CDT us Selvin Domínguez TECHNICIAN AUT[employer]ATED EQUIPMENT LAB BLOOD ORDERABLES Teetee l Result Performing Organization Address City/[facility] Co de Phone Number [facility] Department [place] [address] * (ABNORMAL) Blood gas, arterial (07/31/2024 5:25 AM CDT) pH, Art 7.46(H) 7.35 - 7.45 PCO2, Arterial 30(L) 35 - 45 mmHg [facility] PO2, Arterial 170(H) 83 - 108 mmHg [facility] HCO3 Art (Calculated) 22 20 - 30 mmol/L [facility] BE, art -2 mmol/L [facility] Comment: Interpretive Data No Reference Range Established Current Interpretive Data was last revised on 2017 O2 Sat Art (Measured) 100(H) 90 - 95 % [facility] Blood 07/31/2024 5:25 AM CDT 07/31/2024 5:32 AM CDT Selvin Domínguez NP LAB BLOOD ORDERABLES Teetee keith Result [facility] [place] [address] * (ABNORMAL) POC Blood Gas and Chemistries, Arterial - (07/31/2024 4:15 AM CDT) pH, Art POC 7.42 7.35 - 7.45 pCO2, Art POC 33(L) 35 - 45 mmHg [facility] pO2, Art POC 173(H) 83 - 108 mmHg [facility] Na, POC 136 135 - 145 mmol/L [facility] K POC 4.5 3.3 - 4.9 mmol/L [facility] Comment: Interpretive Data Not all point of care methods assess for hemolysis. Confirm with instrument and retest K+ if not consistent with clinical signs and symptoms. Current Interpretive Data was last revised on 2023. Cl, POC 108 97 - 110 mmol/L [facility] Ionized Ca, POC 5.03 4.50 - 5.10 mg/dL [facility] Glucose, POC 126 70 - 199 mg/dL [facility] Lactate POC 2.6(H) 0.7 - 2.0 mmol/L [facility] SO2 (vivian) arterial 98(H) 90 - 95 % [facility] Base excess, POC -2.6 mmol/L [facility] HCO3, Art POC 21 20 - 30 mmol/L [facility] Hct, POC 27.0(L) 41.4 - 51.6 % [facility] Total Hb, POC 9.0(L) 13.8 - 17.2 g/dL [facility] Blood 07/31/2024 4:15 AM CDT 07/31/2024 4:15 AM CDT Nick Veliz MD LAB POCT ORDERABLES - DE VICE Final Result Performing Organization Address City/[facility]/ZIP Co de Phone Number [facility] [place] [address] * Calcium, ionized, whole blood (07/31/2024 3:54 AM CDT) Ca, ionized, bld 4.75 4.50 - 5.10 mg/dL Blood 07/31/2024 3:54 AM CDT 07/31/2024 4:00 AM CDT Arabella Gary TECHNICIAN AUT[employer]ATED EQUIPMENT LAB BLOOD ORDERABLES Fi nal Result Performing Organization Address [facility] Co de Phone Number [facility] [place] [address] * Oxyhemoglobin, pulmonary artery (07/31/2024 3:48 AM CDT) Oxyhemoglobin, PA 68.1 % Comment: Interpretive Data No reference range established. Current interpretive data was last revised 2019. Blood 07/31/2024 3:48 AM CDT 07/31/2024 4:00 AM CDT Selvin Domínguez TECHNICIAN AUTOMATED EQUIPMENT LAB BLOOD ORDERABLES Teetee l Result Performing Organization Address City/[facility]/ZIP Co de Phone Number [facility] [place] [address] * (ABNORMAL) Lactate (07/31/2024 3:48 AM CDT) [facility] Lactate 3.0(H) 0.7 - 2.0 mmol/L Blood 07/31/2024 3:48 AM CDT 07/31/2024 4:03 AM CDT Selvin Domínguez TECHNICIAN AUT[employer]ATED EQUIPMENT LAB BLOOD ORDERABLES [place] [address] * Potassium, whole blood (07/31/2024 3:48 AM CDT) [facility] Potassium, bld 4.3 3.3 - 4.9 mmol/L Blood 07/31/2024 3:48 AM CDT 07/31/2024 4:00 AM CDT Arabella Gary TECHNICIAN AUTOMATED EQUIPMENT LAB BLOOD ORDERABLES Ed ited Result - Final Performing Organization Address City/[facility] [place] [address] * (ABNORMAL) CBC without differential (07/31/2024 3:48 AM CDT) [facility] WBC 11.63(H) 3.80 - 9.90 K/cumm Hgb 8.9(L) 13.0 - 17.5 g/dL [facility] Hct 26.0(L) 38.9 - 50.3 % [facility] Plt 114(L) 150 - 400 K/cumm [facility] MPV 10.8 9.1 - 12.3 fL [facility] RBC 2.64(L) 4.30 - 5.80 M/cumm [facility] MCV 98.5(H) 81.3 - 96.4 fL [facility] Comment:spoke to Kate Kwesi ts RN MCV delta due to apparent blood transfusion. MCH 33.7(H) 27.1 - 33.3 pg [facility] MCHC 34.2 32.3 - 35.7 g/dL [facility] RDW CV 15.0(H) 11.1 - 14.9 % [facility] RDW SD 54.6(H) 35.7 - 48.1 fL [facility] NRBC abs 0.00 0.00 - 0.01 K/cumm [facility] Blood 07/31/2024 3:48 AM CDT 07/31/2024 4:03 AM CDT Arabella Gary TECHNICIAN AUTOMATED EQUIPMENT LAB BLOOD ORDERABLES Fi nal Result Performing Organization Address [facility] de Phone Number [facility] Department [place] [address] * (ABNORMAL) Blood gas, arterial (07/31/2024 3:48 AM CDT) pH, Art 7.42 7.35 - 7.45 PCO2, Arterial 33(L) 35 - 45 mmHg [facility] PO2, Arterial 171(H) 83 - 108 mmHg [facility] HCO3 Art (Calculated) 22 20 - 30 mmol/L [facility] BE, art -2 mmol/L [facility] Comment: Interpretive Data No Reference Range Established Current Interpretive Data was last revised on 2017 O2 Sat Art (Measured) 100(H) 90 - 95 % [facility] Blood 07/31/2024 3:48 AM CDT 07/31/2024 4:00 AM CDT us Selvin Domínguez TECHNICIAN AUT[employer]ATED EQUIPMENT LAB BLOOD ORDERABLES Teetee l Result Performing Organization Address [facility] Co de Phone Number [facility] Department [place] [address] * POCT glucose (07/31/2024 3:44 AM CDT) Glucose, POC 129 70 - 199 mg/dL Blood 07/31/2024 3:44 AM CDT 07/31/2024 3:44 AM CDT Nick Veliz MD LAB POCT ORDERABLES - DE VICE Final Result Performing Organization Address [facility] [place] [address] * Transfuse RBC (07/31/2024 3:37 AM CDT) Blood Arabella Gary NP BLOOD TRANSFUSION ORDER VAHID Final Result Performing Organization Address [facility] [place] [address] * POCT glucose (07/31/2024 2:11 AM CDT) Glucose, POC 151 70 - 199 mg/dL Blood 07/31/2024 2:11 AM CDT 07/31/2024 2:11 AM CDT Nick Veliz MD LAB POCT ORDERABLES - DE VICE Final Result Performing Organization Address [facility] Phone Number [facility] [place] [address] * POCT glucose (07/31/2024 1:08 AM CDT) Glucose, POC 161 70 - 199 mg/dL Blood 07/31/2024 1:08 AM CDT 07/31/2024 1:08 AM CDT Nick Veliz MD LAB POCT ORDERABLES - DE VICE Final Result Performing Organization Address [facility] Phone Number [facility] [place] [address] * Oxyhemoglobin, central venous (07/30/2024 11:50 PM CDT) Oxyhemoglobin, CV 78.4 % Comment: Interpretive Data No reference range established. Current interpretive data was last revised 2019. Blood 07/30/2024 11:5 0 PM CDT 07/30/2024 11:56 PM CDT Selvin Domínguez TECHNICIAN AUT[employer]ATED EQUIPMENT LAB BLOOD ORDERABLES Teetee l Result Performing Organization Address City/[facility] Co de Phone Number [facility] [place] [address] * Oxyhemoglobin, pulmonary artery (07/30/2024 11:50 PM CDT) Oxyhemoglobin, PA 73.1 % Comment: Interpretive Data No reference range established. Current interpretive data was last revised 2019. Blood 07/30/2024 11:5 0 PM CDT 07/30/2024 11:57 PM CDT Selvin Domínguez TECHNICIAN AUTOMATED EQUIPMENT LAB BLOOD ORDERABLES Teetee l Result Performing Organization Address [facility] Co de Phone Number [facility] Department [place] [address] * (ABNORMAL) Lactate (07/30/2024 11:50 PM CDT) Lactate 6.4(C) 0.7 - 2.0 mmol/L Blood 07/30/2024 11:5 0 PM CDT 07/31/2024 12:19 AM CDT Marilee Sandoval TECHNICIAN AUTOMATED EQUIPMENT LAB BLOOD ORDERABLES Fin al Result Performing Organization Address City/[facility]/ZIP Co de Phone Number [facility] Department [place] [address] * Potassium, whole blood (07/30/2024 11:50 PM CDT) Pathologist [facility] Potassium, bld 4.3 3.3 - 4.9 mmol/L Blood 07/30/2024 11:5 0 PM CDT 07/30/2024 11:56 PM CDT us Arabella Gary TECHNICIAN AUTOMATED EQUIPMENT LAB BLOOD ORDERABLES Ed ited Result - Final Performing Organization Address City/[facility]/ZIP Co de Phone Number [facility] [place] [address] * (ABNORMAL) eGFR (07/30/2024 11:50 PM CDT) Pathologist [facility] eGFR 54(L) >=60 mL/min/1. 73 [...] 07/31/2024 12:20 AM CDT us Selvin Domínguez TECHNICIAN AUTOMATED EQUIPMENT LAB BLOOD ORDERABLES Teetee l Result [facility] [place] [address] * Critical Result Callback Chemistry (07/30/2024 11:50 PM CDT) [facility] Date Notified [id number] Time Notified 47 [facility] TestName [facility] Called/Read Back Kim Melissa [facility] Credentials RN [facility] Called By cvg [facility] Blood 07/30/2024 11:5 0 PM CDT 07/31/2024 12:19 AM CDT Marilee Sandoval NP LAB BLOOD ORDERABLES Fin al Result [facility] [place] [address] * (ABNORMAL) CBC without differential (07/30/2024 11:50 PM CDT) [facility] WBC 14.50(H) 3.80 - 9.90 K/cumm Hgb 7.8(L) 13.0 - 17.5 g/dL [facility] Hct 23.0(L) 38.9 - 50.3 % [facility] Plt 114(L) 150 - 400 K/cumm [facility] MPV 11.0 9.1 - 12.3 fL [facility] RBC 2.21(L) 4.30 - 5.80 M/cumm [facility] MCV 104.1(H) 81.3 - 96.4 fL [facility] MCH 35.3(H) 27.1 - 33.3 pg [facility] MCHC 33.9 32.3 - 35.7 g/dL [facility] RDW CV 13.4 11.1 - 14.9 % [facility] RDW SD 51.2(H) 35.7 - 48.1 fL [facility] NRBC abs 0.00 0.00 - 0.01 K/cumm [facility] Blood 07/30/2024 11:5 0 PM CDT 07/31/2024 12:19 AM CDT Selvin Domínguez TECHNICIAN AUTOMATED EQUIPMENT LAB BLOOD ORDERABLES Teetee l Result Performing Organization Address [facility] Co de Phone Number [facility] [place] [address] * Phosphorus (07/30/2024 11:50 PM CDT) Phosphorus, pl 3.0 2.3 - 4.5 mg/dL Blood 07/30/2024 11:5 0 PM CDT 07/31/2024 12:09 AM CDT Selvin Domínguez TECHNICIAN AUTOMATED EQUIPMENT LAB BLOOD ORDERABLES Teetee l Result Performing Organization Address [facility] de Phone Number [facility] [place] [address] * Magnesium (07/30/2024 11:50 PM CDT) Magnesium 2.4 1.4 - 2.5 mg/dL Blood 07/30/2024 11:5 0 PM CDT 07/31/2024 12:09 AM CDT Selvin Domínguez NP LAB BLOOD ORDERABLES Teetee l Result Performing Organization Address [facility] Co de Phone Number [facility] [place] [address] * (ABNORMAL) Lactate dehydrogenase (LD) (07/30/2024 11:50 PM CDT) Lactate dehydrogenase (LDH) 505(H) 100 - 250 Units/L Blood 07/30/2024 11:5 0 PM CDT 07/31/2024 12:20 AM CDT Nick Veliz MD LAB BLOOD ORDERABLES Fin al Result Performing Organization Address [facility] de Phone Number [facility] [place] [address] * (ABNORMAL) Blood gas, arterial (07/30/2024 11:50 PM CDT) pH, Art 7.36 7.35 - 7.45 PCO2, Arterial 34(L) 35 - 45 mmHg [facility] PO2, Arterial 166(H) 83 - 108 mmHg [facility] HCO3 Art (Calculated) 20 20 - 30 mmol/L [facility] BE, art -6 mmol/L [facility] Comment: Interpretive Data No Reference Range Established Current Interpretive Data was last revised on 2017 O2 Sat Art (Measured) 100(H) 90 - 95 % [facility] Blood 07/30/2024 11:5 0 PM CDT 07/30/2024 11:56 PM CDT Selvin Domínguez NP LAB BLOOD ORDERABLES Teetee l Result Performing Organization Address [facility] de Phone Number [facility] [place] [address] * (ABNORMAL) Hepatic function panel (07/30/2024 11:50 PM CDT) Bilirubin, total 0.9 0.1 - 1.2 mg/dL Bilirubin, direct 0.4(H) 0.1 - 0.3 mg/dL [facility] Protein, pl 5.2(L) 6.5 - 8.5 g/dL [facility] Albumin 3.6 3.5 - 5.0 g/dL [facility] Alk phos 31(L) 40 - 130 Units/L [facility] ALT 18 7 - 55 Units/L [facility] AST 134(H) 10 - 50 Units/L [facility] Blood 07/30/2024 11:5 0 PM CDT 07/31/2024 12:20 AM CDT Nick Veliz MD LAB BLOOD ORDERABLES Fin al Result [facility] [place] [address] * (ABNORMAL) Basic metabolic panel (07/30/2024 11:50 PM CDT) Pathologist [facility] Sodium 138 135 - 145 mmol/L Potassium, pl 4.4 3.3 - 4.9 mmol/L [facility] Chloride 105 97 - 110 mmol/L [facility] CO2 21(L) 22 - 32 mmol/L [facility] Anion gap 12 2 - 15 mmol/L [facility] BUN 24 6 - 25 mg/dL [facility] Creatinine 1.38(H) 0.80 - 1.30 mg/dL [facility] Glucose 166 70 - 199 mg/dL [facility] Comment: Interpretive Data Fasting glucose >/= 126 [...] 2022. Calcium 9.0 8.5 - 10.3 mg/dL [facility] Blood 07/30/2024 11:5 0 PM CDT 07/31/2024 12:09 AM CDT us Selvin Domínguez NP LAB BLOOD ORDERABLES Teetee l Result [facility] [place] [address] * POCT glucose (07/30/2024 11:49 PM CDT) Glucose, POC 167 70 - 199 mg/dL Blood 07/30/2024 11:4 9 PM CDT 07/30/2024 11:49 PM CDT Nick Veliz MD LAB POCT ORDERABLES - DE VICE Final Result Performing Organization Address [facility] Co de Phone Number [facility] [place] [place] [address] * POCT glucose (07/30/2024 11:04 PM CDT) Glucose, POC 147 70 - 199 mg/dL Blood 07/30/2024 11:0 4 PM CDT 07/30/2024 11:04 PM CDT Nick Veliz MD LAB POCT ORDERABLES - DE VICE Final Result Performing Organization Address [facility] Co de Phone Number [facility] [place] [address] * Oxyhemoglobin, pulmonary artery (07/30/2024 9:42 PM CDT) Oxyhemoglobin, PA 76.6 % Comment: Interpretive Data No reference range established. Current interpretive data was last revised 2019. Blood 07/30/2024 9:42 PM CDT 07/30/2024 9:48 PM CDT Selvin Domínguez TECHNICIAN [employer] LAB BLOOD ORDERABLES Teetee l Result Performing Organization Address [facility] Co de Phone Number [facility] [place] [address] * (ABNORMAL) Hemoglobin total, pulmonary artery (07/30/2024 9:42 PM CDT) Hemoglobin total, PA 7.9(L) 13.0 - 17.5 g/dL Blood 07/30/2024 9:42 PM CDT 07/30/2024 9:48 PM CDT Arabella Gary TECHNICIAN [employer]QUIPMENT LAB BLOOD ORDERABLES Fi nal Result Performing Organization Address [facility] Co de Phone Number [facility] [place] [address] * (ABNORMAL) Blood gas, arterial (07/30/2024 9:42 PM CDT) pH, Art 7.37 7.35 - 7.45 PCO2, Arterial 32(L) 35 - 45 mmHg [facility] PO2, Arterial 158(H) 83 - 108 mmHg [facility] HCO3 Art (Calculated) 19(L) 20 - 30 mmol/L [facility] BE, art -6 mmol/L [facility] Comment: Interpretive Data No Reference Range Established Current Interpretive Data was last revised on 2017 O2 Sat Art (Measured) 100(H) 90 - 95 % [facility] Blood 07/30/2024 9:42 PM CDT 07/30/2024 9:47 PM CDT Selvin Domínguez TECHNICIAN [employer] LAB BLOOD ORDERABLES Teetee l Result Performing Organization Address [facility] Co de Phone Number [facility] [place] [address] * (ABNORMAL) POC Blood Gas and Chemistries, Arterial - (07/30/2024 9:30 PM CDT) pH, Art POC 7.35 7.35 - 7.45 pCO2, Art POC 33(L) 35 - 45 mmHg [facility] pO2, Art POC 165(H) 83 - 108 mmHg [facility] Na, POC 137 135 - 145 mmol/L [facility] K POC 3.8 3.3 - 4.9 mmol/L [facility] Comment: Interpretive Data Not all point of care methods assess for hemolysis. Confirm with instrument and retest K+ if not consistent with clinical signs and symptoms. Current Interpretive Data was last revised on 2023. Cl, POC 107 97 - 110 mmol/L [facility] Ionized Ca, POC 5.14(H) 4.50 - 5.10 mg/dL [facility] Glucose, POC 171 70 - 199 mg/dL [facility] Lactate POC 6.3(C) 0.7 - 2.0 mmol/L [facility] SO2 (vivian) arterial 100(H) 90 - 95 % [facility] Base excess, POC -6.7 mmol/L [facility] HCO3, Art POC 18(L) 20 - 30 mmol/L [facility] Hct, POC 27.0(L) 41.4 - 51.6 % [facility] Total Hb, POC 9.1(L) 13.8 - 17.2 g/dL [facility] Blood 07/30/2024 9:30 PM CDT 07/30/2024 9:30 PM CDT Nick Veliz MD LAB POCT ORDERABLES - DE VICE Final Result Performing Organization Address City/[facility]/ZIP Co de Phone Number [facility] [place] [address] * POCT glucose (07/30/2024 9:09 PM CDT) [facility] Glucose, POC 180 70 - 199 mg/dL Blood 07/30/2024 9:09 PM CDT 07/30/2024 9:09 PM CDT Nick Veliz MD LAB POCT ORDERABLES - DE VICE Final Result [facility] [place] [address] * Transfuse RBC (07/30/2024 8:25 PM CDT) Blood Marilee Sandoval TECHNICIAN [employer]MENT BLOOD TRANSFUSION ORDERA BLES Final Result Performing Organization Address City/[facility]/ZIP Co de Phone Number [facility] [place] [address] * Potassium, whole blood (07/30/2024 8:17 PM CDT) Potassium, bld 3.9 3.3 - 4.9 mmol/L Blood 07/30/2024 8:17 PM CDT 07/30/2024 8:22 PM CDT Arabella Gary TECHNICIAN [employer] LAB BLOOD ORDERABLES Fi nal Result Performing Organization Address [facility]/[place] [address] * POCT glucose (07/30/2024 8:16 PM CDT) Glucose, POC 187 70 - 199 mg/dL Blood 07/30/2024 8:16 PM CDT 07/30/2024 8:16 PM CDT Nick Veliz MD LAB POCT ORDERABLES - DE VICE Final Result Performing Organization Address [facility]/ZIP Co de Phone Number [facility] [place] [address] * Hemoglobin, plasma (07/30/2024 7:20 PM CDT) Hemoglobin, Plasma 30 <=50 mg/dL Blood 07/30/2024 7:20 PM CDT 07/30/2024 7:39 PM CDT Marilee Sandoval TECHNICIAN [employer] LAB BLOOD ORDERABLES Fin al Result Performing Organization Address City/[facility]/ZIP Co de Phone Number [facility] [place] [address] * Critical Care (07/30/2024 6:57 PM CDT) [...] plan with the ICU team and other medical/reimbursement consultant staff, making frequent assessments and decisions [...] * POCT glucose (07/30/2024 6:56 PM CDT) [facility] Signature Glucose, POC 185 70 - 199 mg/dL Blood 07/30/2024 6:56 PM CDT 07/30/2024 6:56 PM CDT us Nick Veliz MD LAB POCT ORDERABLES - DE VICE Final Result [facility] [place] [address] * Prepare RBC: 1 Units (07/30/2024 6:13 PM CDT) Product code [id number] Unit Number [id number] [facility] Product Blood Type APOS [facility] Dispense Status PRESUMED TRANSFUSED [facility] Blood 07/30/2024 6:13 PM CDT 07/30/2024 6:13 PM CDT Narrative [facility] - 07/31/2024 4:00 PM CDT Are special requirements needed? (All products are leukoreduced and CMV- safe)- >No Date required:-[id number] LRRBC # of [id number] Reasons:-Cardiovascular disease, Hgb <8 g/dL} us Marilee Sandoval NP BLOOD BANK PRODUCT ORDER VAHID Final Result [facility] [place] [address] * POCT glucose (07/30/2024 6:08 PM CDT) Glucose, POC 165 70 - 199 mg/dL Blood 07/30/2024 6:08 PM CDT 07/30/2024 6:08 PM CDT Nick Veliz MD LAB POCT ORDERABLES - DE VICE Final Result Performing Organization Address City/[facility]/ZIP Co de Phone Number [facility] [place] [address] * XR Chest 1 View (07/30/2024 6:00 [...] it. Electronically signed by: Maury Jaeger M.D. [facility] Pippa Veliz MD IMG XR PROCEDURES [...] clip. Aortic valve replacement. Median sternotomy wires. Windham-Clair catheter position with tip in the main [...] clip. Aortic valve replacement. Median sternotomy wires. Windham-Clair catheter position with tip in the main pulmonary artery. Epicardial pacing wires. Pericardial and mediastinal drains. Bilateral thoracostomy tubes. Dictated by: Fernanda Levi M.D. The radiology attending physician has personally reviewed this study, and had reviewed and/or edited this written report and agrees with it. Electronically signed by: Daja Dozier M.D. Selvin Domínguez TECHNICIAN [employer] EQUIPMENT IMG XR PROCEDURES Final R esult * [...] NP LAB BLOOD ORDERABLES Teetee keith Result [facility] [place] [address] * (ABNORMAL) CBC without differential (07/30/2024 5:36 PM CDT) WBC 21.35(H) 3.80 - 9.90 K/cumm Hgb 7.8(L) 13.0 - 17.5 g/dL [facility] Comment:Hemoglobin delta due to apparent blood transfusion. Hct 23.6(L) 38.9 - 50.3 % [facility] Plt 129(L) 150 - 400 K/cumm [facility] Comment:No clot detected in sample. MPV 10.9 9.1 - 12.3 fL [facility] RBC 2.19(L) 4.30 - 5.80 M/cumm [facility] MCV 107.8(H) 81.3 - 96.4 fL [facility] MCH 35.6(H) 27.1 - 33.3 pg [facility] MCHC 33.1 32.3 - 35.7 g/dL [facility] RDW CV 12.3 11.1 - 14.9 % [facility] RDW SD 48.5(H) 35.7 - 48.1 fL [facility] NRBC abs 0.00 0.00 - 0.01 K/cumm [facility] Blood 07/30/2024 5:36 PM CDT 07/30/2024 5:55 PM CDT Selvin Domínguez TECHNICIAN [employer] LAB BLOOD ORDERABLES Teetee l Result Performing Organization Address City/[facility]/ZIP Co de Phone Number [facility] [place] [address] * Type and screen (07/30/2024 5:36 PM CDT) ABO Rh A Positive Kumar, indirect Negative [facility] Blood 07/30/2024 5:36 PM CDT 07/30/2024 5:56 PM CDT Narrative [facility] - 07/30/2024 7:37 PM CDT Has the patient had Daratumumab or Isatuximab in the past 6 months?->Unknown Nick Veliz MD LAB BLOOD BANK TEST ORDE RABLES Final Result Performing Organization Address [facility] [place] [address] * (ABNORMAL) Phosphorus (07/30/2024 5:36 PM CDT) Pathologist [facility] Phosphorus, pl 4.6(H) 2.3 - 4.5 mg/dL Blood 07/30/2024 5:36 PM CDT 07/30/2024 5:43 PM CDT Selvin Domínguez TECHNICIAN [employer]MENT LAB BLOOD ORDERABLES Teetee l Result Performing Organization Address City/[facility]/ZIP Co de Phone Number [facility] [place] [address] * Magnesium (07/30/2024 5:36 PM CDT) Pathologist [facility] Magnesium 2.5 1.4 - 2.5 mg/dL Blood 07/30/2024 5:36 PM CDT 07/30/2024 5:43 PM CDT Result [facility] Selvin Domínguez NP LAB BLOOD ORDERABLES Teetee l Result Performing Organization Address City/[facility]/ZIP Co de Phone Number [facility] [place] [address] * (ABNORMAL) Lactate dehydrogenase (LD) (07/30/2024 5:36 PM CDT) [facility] Lactate dehydrogenase (LDH) 550(H) 100 - 250 Units/L Blood 07/30/2024 5:36 PM CDT 07/30/2024 5:43 PM CDT Result [facility] Nick Veliz MD LAB BLOOD ORDERABLES Fin al Result Performing Organization Address [facility] Co de Phone Number [facility] [place] [address] * (ABNORMAL) Hepatic function panel (07/30/2024 5:36 PM CDT) [facility] Bilirubin, total 1.5(H) 0.1 - 1.2 mg/dL Bilirubin, direct 0.6(H) 0.1 - 0.3 mg/dL [facility] Protein, pl 5.5(L) 6.5 - 8.5 g/dL [facility] Albumin 3.4(L) 3.5 - 5.0 g/dL [facility] Alk phos 33(L) 40 - 130 Units/L [facility] ALT 22 7 - 55 Units/L [facility] AST 161(H) 10 - 50 Units/L [facility] Comment:Reviewed Blood 07/30/2024 5:36 PM CDT 07/30/2024 5:43 PM CDT Result [facility] Nick Veliz MD LAB BLOOD ORDERABLES Fin al Result [facility] [place] [address] * (ABNORMAL) Basic metabolic panel (07/30/2024 5:36 PM CDT) Sodium 137 135 - 145 mmol/L Potassium, pl 3.9 3.3 - 4.9 mmol/L [facility] Chloride 102 97 - 110 mmol/L [facility] CO2 22 22 - 32 mmol/L [facility] Anion gap 13 2 - 15 mmol/L [facility] BUN 22 6 - 25 mg/dL [facility] Creatinine 1.36(H) 0.80 - 1.30 mg/dL [facility] Glucose 180 70 - 199 mg/dL [facility] Comment: Interpretive Data Fasting glucose >/= 126 [...] 2022. Calcium 9.1 8.5 - 10.3 mg/dL [facility] Blood 07/30/2024 5:36 PM CDT 07/30/2024 5:43 PM CDT us Selvin Domínguez NP LAB BLOOD ORDERABLES Teetee l Result Performing Organization Address City/[facility]/ZIP Co de Phone Number [facility] [place] [address] * (ABNORMAL) POC Blood Gas and Chemistries, Arterial - (07/30/2024 5:20 PM CDT) pH, Art POC 7.32(L) 7.35 - 7.45 pCO2, Art POC 40 35 - 45 mmHg [facility] pO2, Art POC 303(H) 83 - 108 mmHg [facility] Na, POC 137 135 - 145 mmol/L [facility] K POC 3.8 3.3 - 4.9 mmol/L [facility] Comment: Interpretive Data Not all point of care methods assess for hemolysis. Confirm with instrument and retest K+ if not consistent with clinical signs and symptoms. Current Interpretive Data was last revised on 2023. Cl, POC 106 97 - 110 mmol/L [facility] Ionized Ca, POC 4.81 4.50 - 5.10 mg/dL [facility] Glucose, POC 172 70 - 199 mg/dL [facility] Lactate POC 4.0(C) 0.7 - 2.0 mmol/L [facility] SO2 (vivian) arterial 100(H) 90 - 95 % [facility] Base excess, POC -5.1 mmol/L [facility] HCO3, Art POC 21 20 - 30 mmol/L [facility] Hct, POC 26.0(L) 41.4 - 51.6 % [facility] Total Hb, POC 8.5(L) 13.8 - 17.2 g/dL [facility] Blood 07/30/2024 5:20 PM CDT 07/30/2024 5:20 PM CDT Nick Veliz MD LAB POCT ORDERABLES - DE VICE Final Result [facility] [place] [address] * aPTT (07/30/2024 5:09 PM CDT) aPTT 32 28 - 38 sec Comment: Interpretive Data Heparin therapeutic range: 66.0 - 100.0 seconds. Range based on correlation with therapeutic heparin activity range of 0.3 - 0.7 Units/mL. Current interpretive data was last revised on 2023. Blood 07/30/2024 5:09 PM CDT 07/30/2024 5:48 PM CDT Selvin Domínguez TECHNICIAN [employer]ATED EQUIPMENT LAB BLOOD ORDERABLES Teetee l Result Performing Organization Address [facility] de Phone Number [facility] [place] [address] * (ABNORMAL) Protime-INR (07/30/2024 5:09 PM CDT) PT 16.5(H) 9.7 - 13.0 sec INR 1.51(H) 0.90 - 1.20 [facility] Comment: Interpretive data Oral anticoagulant therapeutic ranges: Venous thromboembolism prophylaxis or treatment: 2.0-3.0 CARDIOLOGY Standard range: 2.0-3.0 High-intensity range: 2.5-3.5 Refer to indication-specific guidelines for appropriate target ranges for prosthetic heart valve replacement. Current interpretive data was last revised on 2019. Blood 07/30/2024 5:09 PM CDT 07/30/2024 5:48 PM CDT Selvin Domínguez TECHNICIAN [employer] EQUIPMENT LAB BLOOD ORDERABLES Teetee l Result Performing Organization Address [facility] de Phone Number [facility] [place] [address] * Critical Care (07/30/2024 5:00 PM CDT) Narrative Rebecca Alston MD - 07/30/2024 5:00 PM CDT Rebecca Alston MD 07/31/2024 11:07 AM Critical Care Performed by: Marilee Sandoval NP Authorized by: Marilee Sandoval NP CRITICAL CARE: Team: [facility] Shift: AM Level of Billing: Critical [...] plan with the ICU team and other medical/reimbursement consultant staff, making frequent assessments and decisions [...] OR DERABLES Final Result Performing Organization Address [facility] Co de Phone Number [facility] [place] [place] [address] * Transfuse platelets (07/30/2024 4:47 PM CDT) Blood Abhi Martinez MD BLOOD TRANSFUSION OR DERABLES Final Result Performing Organization Address City/[facility] Co de Phone Number [facility] [place] [address] * (ABNORMAL) POCT prothrombin time (07/30/2024 4:30 PM CDT) PT, POC 28.1(H) 11.7 - 16.6 sec INR, POC 2.2(H) 0.9 - 1.2 [facility] Blood 07/30/2024 4:30 PM CDT 07/30/2024 4:30 PM CDT Nick Veliz MD LAB POCT ORDERABLES - DE VICE Final Result Performing Organization Address [facility] de Phone Number [facility] [place] [address] * (ABNORMAL) POCT Partial thromboplastin time (PTT) (07/30/2024 4:30 PM CDT) APTT, POC 48.8(H) 32.5 - 46.1 sec Blood 07/30/2024 4:30 PM CDT 07/30/2024 4:30 PM CDT Nick Veliz MD LAB POCT ORDERABLES - DE VICE Final Result Performing Organization Address [facility] [place] [address] * (ABNORMAL) POCT hemoglobin, hematocrit and platelet count (07/30/2024 4:29 PM CDT) Hgb, POC 8.7(L) 13.0 - 17.5 g/dL Hematocrit POC 26.7(L) 38.9 - 50.3 % [facility] Platelet POC 128(L) 150 - 400 K/cumm [facility] Blood 07/30/2024 4:29 PM CDT 07/30/2024 4:29 PM CDT Nick Veliz MD LAB POCT ORDERABLES - DE VICE Final Result Performing Organization Address [facility] Co de Phone Number [facility] [place] [address] * Prepare platelets: 1 Units (07/30/2024 4:26 PM CDT) Product code [id number] Unit Number [id number] [facility] Product Blood Type APOS [facility] Dispense Status PRESUMED TRANSFUSED [facility] Blood Venous blood specimen / Unknown 07/30/2024 4:26 PM CDT 07/30/2024 4:26 PM CDT Narrative [facility] - 07/31/2024 8:02 AM CDT Specify Procedure:->cardiac surgery Are special requirements needed? (all products are leukoreduced)->No Date required:-[id number] PLT # of Units:-1-Units Reasons:-Hold for procedure (specify procedure)} Abhi Martinez MD BLOOD BANK PRODUCT O RDERABLES Final Result Performing Organization Address [facility] de Phone Number [facility] [place] [address] * Prepare plasma: 1 Units (07/30/2024 4:26 PM CDT) Product code [id number] Unit Number [id number] [facility] Product Blood Type APOS [facility] Dispense Status PRESUMED TRANSFUSED [facility] Blood Venous blood specimen / Unknown 07/30/2024 4:26 PM CDT 07/30/2024 4:26 PM CDT Narrative [facility] - 07/31/2024 8:02 AM CDT Date required:-[id number] FFP # of Units:-1-Units Reasons:-Immediate need for surgical intervention Abhi Martinez MD BLOOD BANK PRODUCT O RDERABLES Final Result Performing Organization Address [facility] de Phone Number [facility] [place] [address] * POCT glucose (07/30/2024 3:51 PM CDT) Glucose, POC 185 70 - 199 mg/dL Blood 07/30/2024 3:51 PM CDT 07/30/2024 3:51 PM CDT Nick Veliz MD LAB POCT ORDERABLES - DE VICE Final Result [facility] One [facility] [place] [address] * (ABNORMAL) POC Blood Gas and Chemistries, Arterial - (07/30/2024 3:51 PM CDT) [facility] pH, Art POC 7.29(L) 7.35 - 7.45 pCO2, Art POC 42 35 - 45 mmHg [facility] pO2, Art POC 329(H) 83 - 108 mmHg [facility] Na, POC 136 135 - 145 mmol/L [facility] K POC 3.8 3.3 - 4.9 mmol/L [facility] Comment: Interpretive Data Not all point of care methods assess for hemolysis. Confirm with instrument and retest K+ if not consistent with clinical signs and symptoms. Current Interpretive Data was last revised on 2023. Cl, POC 109 97 - 110 mmol/L [facility] Ionized Ca, POC 4.51 4.50 - 5.10 mg/dL [facility] Glucose, POC Incalculable 70 - 199 mg/dL [facility] Lactate POC 3.1(H) 0.7 - 2.0 mmol/L [facility] SO2 (vivian) arterial 100(H) 90 - 95 % [facility] Base excess, POC -6.0 mmol/L [facility] HCO3, Art POC 20 20 - 30 mmol/L [facility] Hct, POC 29.0(L) 41.4 - 51.6 % [facility] Total Hb, POC 9.8(L) 13.8 - 17.2 g/dL [facility] Blood 07/30/2024 3:51 PM CDT 07/30/2024 3:51 PM CDT Nick Veliz MD LAB POCT ORDERABLES - DE VICE Final Result Performing Organization Address [facility] Co de Phone Number [facility] [place] [address] * Transfuse cryoprecipitate (pooled units) (07/30/2024 3:35 PM CDT) Blood Abhi Martinez MD BLOOD TRANSFUSION OR DERABLES Final Result Performing Organization Address [facility] Co de Phone Number [facility] [place] [address] * Transfuse cryoprecipitate (pooled units) (07/30/2024 3:35 PM CDT) Blood Abhi Martinez MD BLOOD TRANSFUSION OR DERABLES Final Result Performing Organization Address [facility] Co de Phone Number [facility] [place] [place] [address] * Prepare cryoprecipitate (pooled units): 2 Units (07/30/2024 3:11 PM CDT) [facility] Product code [id number] Unit Number [id number] [facility] Product Blood Type APOS [facility] Dispense Status PRESUMED TRANSFUSED [facility] Product code [id number] [facility] Unit Number [id number] [facility] Product Blood Type APOS [facility] Dispense Status PRESUMED TRANSFUSED [facility] Blood Venous blood specimen / Unknown 07/30/2024 3:11 PM CDT 07/30/2024 3:11 PM CDT Narrative [facility] - 07/31/2024 8:02 AM CDT Other indication->post bypass Cryo # of [id number] Reasons:-Other (Specify)} Abhi Martinez MD BLOOD BANK PRODUCT O RDERABLES Final Result Performing Organization Address City/[facility]/ZIP Co de Phone Number [facility] [place] [address] * (ABNORMAL) POC Blood Gas and Chemistries, Arterial - (07/30/2024 2:56 PM CDT) pH, Art POC 7.32(L) 7.35 - 7.45 pCO2, Art POC 40 35 - 45 mmHg [facility] pO2, Art POC 430(H) 83 - 108 mmHg [facility] Na, POC 135 135 - 145 mmol/L [facility] K POC 3.9 3.3 - 4.9 mmol/L [facility] Comment: Interpretive Data Not all point of care methods assess for hemolysis. Confirm with instrument and retest K+ if not consistent with clinical signs and symptoms. Current Interpretive Data was last revised on 2023. Cl, POC 108 97 - 110 mmol/L [facility] Ionized Ca, POC 4.70 4.50 - 5.10 mg/dL [facility] Glucose, POC Incalculable 70 - 199 mg/dL [facility] Lactate POC 2.9(H) 0.7 - 2.0 mmol/L [facility] SO2 (vivian) arterial 100(H) 90 - 95 % [facility] Base excess, POC -5.1 mmol/L [facility] HCO3, Art POC 21 20 - 30 mmol/L [facility] Hct, POC 33.0(L) 41.4 - 51.6 % [facility] Total Hb, POC 10.9(L) 13.8 - 17.2 g/dL [facility] Blood 07/30/2024 2:56 PM CDT 07/30/2024 2:56 PM CDT Nick Veliz MD LAB POCT ORDERABLES - DE VICE Final Result Performing Organization Address City/[facility]/ZIP Co de Phone Number [facility] One [facility] [place] [address] * (ABNORMAL) POCT prothrombin time (07/30/2024 2:27 PM CDT) PT, POC 34.3(H) 11.7 - 16.6 sec INR, POC 2.6(H) 0.9 - 1.2 [facility] Blood 07/30/2024 2:27 PM CDT 07/30/2024 2:27 PM CDT Nick Veliz MD LAB POCT ORDERABLES - DE VICE Final Result Performing Organization Address [facility] Co de Phone Number [facility] [place] [place] [address] * (ABNORMAL) POCT heparin/ACT CPB (07/30/2024 2:26 PM CDT) Pathologist [facility] Heparin POC 0.0 units/mL ACT, CPB 110(L) 112 - 174 sec [facility] Blood 07/30/2024 2:26 PM CDT 07/30/2024 2:26 PM CDT Nick Veliz MD LAB POCT ORDERABLES - DE VICE Final Result Performing Organization Address [facility] Co de Phone Number [facility] [place] [address] * POCT Partial thromboplastin time (PTT) (07/30/2024 2:26 PM CDT) Pathologist [facility] APTT, POC 36.6 32.5 - 46.1 sec Blood 07/30/2024 2:26 PM CDT 07/30/2024 2:26 PM CDT Nick Veliz MD LAB POCT ORDERABLES - DE VICE Final Result Performing Organization Address City/[facility] Co de Phone Number [facility] [place] [address] * POCT glucose (07/30/2024 2:26 PM CDT) [facility] Glucose, POC 177 70 - 199 mg/dL Blood 07/30/2024 2:26 PM CDT 07/30/2024 2:26 PM CDT Nick Veliz MD LAB POCT ORDERABLES - DE VICE Final Result Performing Organization Address [facility] Co de Phone Number [facility] Department [place] [address] * (ABNORMAL) POCT hemoglobin, hematocrit and platelet count (07/30/2024 2:25 PM CDT) [facility] Hgb, POC 9.3(L) 13.0 - 17.5 g/dL Hematocrit POC 28.4(L) 38.9 - 50.3 % [facility] Platelet POC 118(L) 150 - 400 K/cumm [facility] Blood 07/30/2024 2:25 PM CDT 07/30/2024 2:25 PM CDT Nick Veliz MD LAB POCT ORDERABLES - DE VICE Final Result Performing Organization Address [facility] de Phone Number [facility] [place] [address] * (ABNORMAL) POC Blood Gas and Chemistries, Arterial - (07/30/2024 2:24 PM CDT) Pathologist [facility] pH, Art POC 7.36 7.35 - 7.45 pCO2, Art POC 37 35 - 45 mmHg [facility] pO2, Art POC 313(H) 83 - 108 mmHg [facility] Na, POC 135 135 - 145 mmol/L [facility] K POC 4.2 3.3 - 4.9 mmol/L [facility] Comment: Interpretive Data Not all point of care methods assess for hemolysis. Confirm with instrument and retest K+ if not consistent with clinical signs and symptoms. Current Interpretive Data was last revised on 2023. Cl, POC 107 97 - 110 mmol/L [facility] Ionized Ca, POC 5.05 4.50 - 5.10 mg/dL [facility] Glucose, POC Incalculable 70 - 199 mg/dL [facility] Lactate POC 3.5(H) 0.7 - 2.0 mmol/L [facility] SO2 (vivian) arterial 99(H) 90 - 95 % [facility] Base excess, POC -4.1 mmol/L [facility] HCO3, Art POC 21 20 - 30 mmol/L [facility] Hct, POC 29.0(L) 41.4 - 51.6 % [facility] Total Hb, POC 9.8(L) 13.8 - 17.2 g/dL [facility] Blood 07/30/2024 2:24 PM CDT 07/30/2024 2:24 PM CDT Nick Veliz MD LAB POCT ORDERABLES - DE VICE Final Result Performing Organization Address City/[facility]/ZIP Co de Phone Number [facility] [place] [place] [address] * (ABNORMAL) POCT heparin/ACT CPB (07/30/2024 1:37 PM CDT) Heparin POC <2.8 units/mL ACT, CPB 518(H) 112 - 174 sec [facility] Blood 07/30/2024 1:37 PM CDT 07/30/2024 1:37 PM CDT Nick Veliz MD LAB POCT ORDERABLES - DE VICE Final Result [facility] [place] [address] * (ABNORMAL) POC Blood Gas and Chemistries, Arterial - (07/30/2024 1:34 PM CDT) pH, Art POC 7.45 7.35 - 7.45 pCO2, Art POC 35 35 - 45 mmHg [facility] pO2, Art POC 299(H) 83 - 108 mmHg [facility] Na, POC 134(L) 135 - 145 mmol/L [facility] K POC 5.0(H) 3.3 - 4.9 mmol/L [facility] Comment: Interpretive Data Not all point of care methods assess for hemolysis. Confirm with instrument and retest K+ if not consistent with clinical signs and symptoms. Current Interpretive Data was last revised on 2023. Cl, POC 107 97 - 110 mmol/L [facility] Ionized Ca, POC 4.51 4.50 - 5.10 mg/dL [facility] Glucose, POC Incalculable 70 - 199 mg/dL [facility] Lactate POC 1.2 0.7 - 2.0 mmol/L [facility] SO2 (vivian) arterial 100(H) 90 - 95 % [facility] Base excess, POC 0.5 mmol/L [facility] HCO3, Art POC 24 20 - 30 mmol/L [facility] Hct, POC 29.0(L) 41.4 - 51.6 % [facility] Total Hb, POC 9.6(L) 13.8 - 17.2 g/dL [facility] Blood 07/30/2024 1:34 PM CDT 07/30/2024 1:34 PM CDT Nick Veliz MD LAB POCT ORDERABLES - DE VICE Final Result [facility] One [facility] [place] [address] * (ABNORMAL) POCT heparin/ACT CPB (07/30/2024 1:05 PM CDT) Heparin POC 3.4 units/mL ACT, CPB 574(H) 112 - 174 sec [facility] Blood 07/30/2024 1:05 PM CDT 07/30/2024 1:05 PM CDT Nick Veliz MD LAB POCT ORDERABLES - DE VICE Final Result [facility] [place] [address] * (ABNORMAL) POC Blood Gas and Chemistries, Arterial - (07/30/2024 1:02 PM CDT) pH, Art POC 7.28(L) 7.35 - 7.45 pCO2, Art POC 59(H) 35 - 45 mmHg [facility] pO2, Art POC 268(H) 83 - 108 mmHg [facility] Na, POC 136 135 - 145 mmol/L [facility] K POC 4.6 3.3 - 4.9 mmol/L [facility] Comment: Interpretive Data Not all point of care methods assess for hemolysis. Confirm with instrument and retest K+ if not consistent with clinical signs and symptoms. Current Interpretive Data was last revised on 2023. Cl, POC 105 97 - 110 mmol/L [facility] Ionized Ca, POC 4.61 4.50 - 5.10 mg/dL [facility] Glucose, POC Incalculable 70 - 199 mg/dL [facility] Lactate POC 0.9 0.7 - 2.0 mmol/L [facility] SO2 (vivian) arterial 100(H) 90 - 95 % [facility] Base excess, POC 0.3 mmol/L [facility] HCO3, Art POC 28 20 - 30 mmol/L [facility] Hct, POC 29.0(L) 41.4 - 51.6 % [facility] Total Hb, POC 9.7(L) 13.8 - 17.2 g/dL [facility] Blood 07/30/2024 1:02 PM CDT 07/30/2024 1:02 PM CDT Nick Veliz MD LAB POCT ORDERABLES - DE VICE Final Result [facility] [place] [address] * Surgical pathology (07/30/2024 1:00 PM CDT) Tissue (Heart Valve) 07/30/2024 1:00 PM CDT Narrative PATHOLOGY [facility] - 08/02/2024 11:28 PM CDT EPIC results best viewed via link to PDF [facility] [place] [address] Note to Patients: This report may contain [...] Gender: Hayes : 1950 (Age: 73) Address: [address] [place], [place] [id number] Hospital #: [id number] Taken:07/30/2024 Received:07/30/2024 Reported: 08/02/2024 Patient Type: [facility] Inpatient Service: Medical Location: [place] [address] Physician(s): MD Juanito Ugalde M.D. Diagnosis: Heart, aortic valve, replacement - Fibrosis with dystrophic calcifications - No evidence of endocarditis [facility]/08/02/2024 23:28 By this signature, I attest that [...] crespo-yellow tissue fragments. They are sectioned and pharmaceutical sales representative sections are submitted in A1 following acid decalcification. Jar 1. dxb/07/31/2024 12:12 PA(s): FRANCHESCA Pepper, NATHALY(ASCP)CM By this signature, I attest that the above diagnosis is based upon my personal examination of the slides(and/or other material). Addenda/Procedures The performance characteristics of some immunohistochemical stains, fluorescence in-situ hybridization tests and immunophenotyping by flow cytometry cited in this report (if any) were determined by the Surgical Pathology and Flow Cytometry Departments at [facility] as part of an ongoing quality assurance test program manager program and in compliance with federally [...] Surgical Pathology and Flow Cytometry Departments of [facility]. It has not been cleared or approved by the U. S. Food and Drug Administration. IMAGES AND SCANNED DOCUMENTS, IF INCLUDED, ONLY VIEWABLE IN PDF VERSION OF REPORT Nick Veliz MD LAB PATHOLOGY ORDERABLES Final Result PATHOLOGY [facility] 3rd Floor [place], [place] [phone] * POCT glucose (07/30/2024 12:39 PM CDT) Glucose, POC 152 70 - 199 mg/dL Blood 07/30/2024 12:3 9 PM CDT 07/30/2024 12:39 PM CDT Nick Veliz MD LAB POCT ORDERABLES - DE VICE Final Result Performing Organization Address City/[facility] Co de Phone Number [facility] [place] [address] * (ABNORMAL) POCT heparin/ACT CPB (07/30/2024 12:38 PM CDT) [facility] Heparin POC <2.8 units/mL ACT, CPB 528(H) 112 - 174 sec [facility] Blood 07/30/2024 12:3 8 PM CDT 07/30/2024 12:38 PM CDT Nick Veliz MD LAB POCT ORDERABLES - DE VICE Final Result Performing Organization Address [facility] Co de Phone Number [facility] [place] [place] [address] * (ABNORMAL) POC Blood Gas and Chemistries, Arterial - (07/30/2024 12:34 PM CDT) Pathologist [facility] pH, Art POC 7.45 7.35 - 7.45 pCO2, Art POC 37 35 - 45 mmHg [facility] pO2, Art POC 349(H) 83 - 108 mmHg [facility] Na, POC 134(L) 135 - 145 mmol/L [facility] K POC 4.9 3.3 - 4.9 mmol/L [facility] Comment: Interpretive Data Not all point of care methods assess for hemolysis. Confirm with instrument and retest K+ if not consistent with clinical signs and symptoms. Current Interpretive Data was last revised on 2023. Cl, POC 107 97 - 110 mmol/L [facility] Ionized Ca, POC 4.43(L) 4.50 - 5.10 mg/dL [facility] Glucose, POC Incalculable 70 - 199 mg/dL [facility] Lactate POC 1.0 0.7 - 2.0 mmol/L [facility] SO2 (vivian) arterial 100(H) 90 - 95 % [facility] Base excess, POC 1.7 mmol/L [facility] HCO3, Art POC 26 20 - 30 mmol/L [facility] Hct, POC 29.0(L) 41.4 - 51.6 % [facility] Total Hb, POC 9.8(L) 13.8 - 17.2 g/dL [facility] Blood 07/30/2024 12:3 4 PM CDT 07/30/2024 12:34 PM CDT us Nick Veliz MD LAB POCT ORDERABLES - DE VICE Final Result Performing Organization Address [facility] Co de Phone Number [facility] Department [place] [address] * (ABNORMAL) POCT heparin/ACT CPB (07/30/2024 12:18 PM CDT) Heparin POC <2.8 units/mL ACT, CPB 573(H) 112 - 174 sec [facility] Blood 07/30/2024 12:1 8 PM CDT 07/30/2024 12:18 PM CDT us Nick Veliz MD LAB POCT ORDERABLES - DE VICE Final Result Performing Organization Address City/[facility]/ZIP Co de Phone Number [facility] [place] [place] [address] * POCT glucose (07/30/2024 11:46 AM CDT) Glucose, POC 154 70 - 199 mg/dL Blood 07/30/2024 11:4 6 AM CDT 07/30/2024 11:46 AM CDT us Nick Veliz MD LAB POCT ORDERABLES - DE VICE Final Result Performing Organization Address City/[facility]/ZIP Co de Phone Number [facility] [place] [address] * (ABNORMAL) POCT heparin/ACT CPB (07/30/2024 11:44 AM CDT) Heparin POC 3.4 units/mL ACT, CPB 573(H) 112 - 174 sec [facility] Blood 07/30/2024 11:4 4 AM CDT 07/30/2024 11:44 AM CDT Nick Veliz MD LAB POCT ORDERABLES - DE VICE Final Result Performing Organization Address [facility] Co de Phone Number [facility] [place] [address] * (ABNORMAL) POC Blood Gas and Chemistries, Arterial - (07/30/2024 11:42 AM CDT) pH, Art POC 7.44 7.35 - 7.45 pCO2, Art POC 37 35 - 45 mmHg [facility] pO2, Art POC 361(H) 83 - 108 mmHg [facility] Na, POC 135 135 - 145 mmol/L [facility] K POC 4.8 3.3 - 4.9 mmol/L [facility] Comment: Interpretive Data Not all point of care methods assess for hemolysis. Confirm with instrument and retest K+ if not consistent with clinical signs and symptoms. Current Interpretive Data was last revised on 2023. Cl, POC 106 97 - 110 mmol/L [facility] Ionized Ca, POC 4.38(L) 4.50 - 5.10 mg/dL [facility] Glucose, POC Incalculable 70 - 199 mg/dL [facility] Lactate POC 1.1 0.7 - 2.0 mmol/L [facility] SO2 (vivian) arterial 100(H) 90 - 95 % [facility] Base excess, POC 1.0 mmol/L [facility] HCO3, Art POC 25 20 - 30 mmol/L [facility] Hct, POC 30.0(L) 41.4 - 51.6 % [facility] Total Hb, POC 10.1(L) 13.8 - 17.2 g/dL [facility] Blood 07/30/2024 11:4 2 AM CDT 07/30/2024 11:42 AM CDT Nick Veliz MD LAB POCT ORDERABLES - DE VICE Final Result Performing Organization Address City/[facility]/ZIP Co de Phone Number [facility] [place] [address] * POCT glucose (07/30/2024 11:18 AM CDT) Glucose, POC 145 70 - 199 mg/dL Blood 07/30/2024 11:1 8 AM CDT 07/30/2024 11:18 AM CDT Nick Veliz MD LAB POCT ORDERABLES - DE VICE Final Result Performing Organization Address [facility] Co de Phone Number [facility] [place] [place] [address] * (ABNORMAL) POCT heparin/ACT CPB (07/30/2024 11:08 AM CDT) Heparin POC 4.1 units/mL ACT, CPB 633(H) 112 - 174 sec [facility] Blood 07/30/2024 11:0 8 AM CDT 07/30/2024 11:08 AM CDT Nick Veliz MD LAB POCT ORDERABLES - DE VICE Final Result Performing Organization Address City/[facility]/ZIP Co de Phone Number [facility] [place] [address] * (ABNORMAL) POC Blood Gas and Chemistries, Arterial - (07/30/2024 11:07 AM CDT) pH, Art POC 7.35 7.35 - 7.45 pCO2, Art POC 45 35 - 45 mmHg [facility] pO2, Art POC 147(H) 83 - 108 mmHg [facility] Na, POC 135 135 - 145 mmol/L [facility] K POC 4.2 3.3 - 4.9 mmol/L [facility] Comment: Interpretive Data Not all point of care methods assess for hemolysis. Confirm with instrument and retest K+ if not consistent with clinical signs and symptoms. Current Interpretive Data was last revised on 2023. Cl, POC 105 97 - 110 mmol/L [facility] Ionized Ca, POC 4.41(L) 4.50 - 5.10 mg/dL [facility] Glucose, POC Incalculable 70 - 199 mg/dL [facility] Lactate POC 2.4(H) 0.7 - 2.0 mmol/L [facility] SO2 (vivian) arterial 99(H) 90 - 95 % [facility] Base excess, POC -1.0 mmol/L [facility] HCO3, Art POC 25 20 - 30 mmol/L [facility] Hct, POC 31.0(L) 41.4 - 51.6 % [facility] Total Hb, POC 10.4(L) 13.8 - 17.2 g/dL [facility] Blood 07/30/2024 11:0 7 AM CDT 07/30/2024 11:07 AM CDT Nick Veliz MD LAB POCT ORDERABLES - DE VICE Final Result [facility] [place] [address] * (ABNORMAL) POCT heparin/ACT CPB (07/30/2024 10:10 AM CDT) Heparin POC >4.7 units/mL ACT, CPB 548(H) 112 - 174 sec [facility] Blood 07/30/2024 10:1 0 AM CDT 07/30/2024 10:10 AM CDT Nick Veliz MD LAB POCT ORDERABLES - DE VICE Final Result [facility] [place] [address] * (ABNORMAL) POC Blood Gas and Chemistries, Arterial - (07/30/2024 10:08 AM CDT) pH, Art POC 7.39 7.35 - 7.45 pCO2, Art POC 40 35 - 45 mmHg [facility] pO2, Art POC 157(H) 83 - 108 mmHg [facility] Na, POC 133(L) 135 - 145 mmol/L [facility] K POC 3.6 3.3 - 4.9 mmol/L [facility] Comment: Interpretive Data Not all point of care methods assess for hemolysis. Confirm with instrument and retest K+ if not consistent with clinical signs and symptoms. Current Interpretive Data was last revised on 2023. Ionized Ca, POC 4.21(L) 4.50 - 5.10 mg/dL [facility] Glucose, POC Incalculable 70 - 199 mg/dL [facility] Lactate POC 1.1 0.7 - 2.0 mmol/L [facility] SO2 (vivian) arterial 100(H) 90 - 95 % [facility] Base excess, POC -0.7 mmol/L [facility] HCO3, Art POC 24 20 - 30 mmol/L [facility] Hct, POC 39.0(L) 41.4 - 51.6 % [facility] Total Hb, POC 12.9(L) 13.8 - 17.2 g/dL [facility] Blood 07/30/2024 10:0 8 AM CDT 07/30/2024 10:08 AM CDT Nick Veliz MD LAB POCT ORDERABLES - DE VICE Final Result [facility] [place] [address] * NE AN PROCEDURE PLACEHOLDER (07/30/2024 9:54 AM CDT) [...] code: AMILCAR placement and diagnostic exam, non-congenital (84163) ICD code(s) for medical necessity: I35.0 - [...] inferior: hypokinetic 16- Apical septal: hypokinetic 17- [place]: hypokinetic Valves: Aortic Valve: Annulus: normal Leaflet [...] portion of the MV Mild-moderate TR, Mild NE Large JORGE with no e/o thrombus No [...] patient tolerated procedure well with no complications us Abhi Martinez MD ANESTHESIA ORDERABLE S Final [...] response slope POC 86 60 - 195 [facility] Projected Heparin Concentration POC 3.9 units/mL [facility] Blood 07/30/2024 8:55 AM CDT 07/30/2024 8:55 AM CDT Nick Veliz MD LAB POCT ORDERABLES - DE VICE Final Result [facility] One [facility] [place] [address] * (ABNORMAL) POC Blood Gas and Chemistries, Arterial - (07/30/2024 8:52 AM CDT) pH, Art POC 7.42 7.35 - 7.45 pCO2, Art POC 43 35 - 45 mmHg [facility] pO2, Art POC 126(H) 83 - 108 mmHg [facility] Na, POC 135 135 - 145 mmol/L [facility] K POC 3.7 3.3 - 4.9 mmol/L [facility] Comment: Interpretive Data Not all point of care methods assess for hemolysis. Confirm with instrument and retest K+ if not consistent with clinical signs and symptoms. Current Interpretive Data was last revised on 2023. Cl, POC 101 97 - 110 mmol/L [facility] Ionized Ca, POC 4.54 4.50 - 5.10 mg/dL [facility] Glucose, POC Incalculable 70 - 199 mg/dL [facility] Lactate POC 1.4 0.7 - 2.0 mmol/L [facility] SO2 (vivian) arterial 100(H) 90 - 95 % [facility] Base excess, POC 2.9 mmol/L [facility] HCO3, Art POC 28 20 - 30 mmol/L [facility] Hct, POC 41.0(L) 41.4 - 51.6 % [facility] Total Hb, POC 13.8 13.8 - 17.2 g/dL [facility] Blood 07/30/2024 8:52 AM CDT 07/30/2024 8:52 AM CDT Nick Veliz MD LAB POCT ORDERABLES - DE VICE Final Result [facility] [place] [address] * AMILCAR Add-On For OR (07/30/2024 7:58 AM CDT) BSA 2.26 m2 [facility] Narrative [facility] - 07/30/2024 7:58 AM CDT Procedure Auto Finalized by Rule: BW CV AMILCAR DURING CASE OR Please see the Anesthesiologist's Procedure Note for the results. us Abhi Martinez MD CV ECHO PROCEDURES F inal Result Performing Organization Address [facility] Co de Phone Number [facility] * Prepare RBC: 4 Units (07/30/2024 5:42 AM CDT) Pathologist [facility] Product code [id number] Unit Number [id number] [facility] Product Blood Type APOS [facility] Dispense Status PRESUMED TRANSFUSED [facility] Blood 07/30/2024 5:42 AM CDT 07/30/2024 5:41 AM CDT Narrative [facility] - 07/31/2024 8:02 AM CDT Specify Procedure:->AVR Are special requirements needed? (All products are leukoreduced and CMV- safe)- >No Date required:-[id number] LRRBC # of [id number] Reasons:-Hold for procedure (specify procedure)} Aide Galicia TECHNICIAN AUTOMATED EQUIPMENT BLOOD BANK PRODUCT OR DERABLES Final Result Performing Organization Address [facility] Co de Phone Number [facility] [place] [place] [address] * Potassium, whole blood (07/30/2024 5:18 AM CDT) [facility] Potassium, bld 3.5 3.3 - 4.9 mmol/L Blood 07/30/2024 5:18 AM CDT 07/30/2024 5:43 AM CDT Alicia Tuttle TECHNICIAN AUTOMATED EQUIPMENT LAB BLOOD ORDERABLES Final R esult Performing Organization Address [facility] Co de Phone Number [facility] [place] [place] [address] * ECG 12 lead (07/30/2024 5:14 AM CDT) [facility] Ventricular Rate EKG/Min 76 BPM [facility] Atrial Rate 76 BPM [facility] NE-Interval (MSEC) 176 ms [facility] QRS-Interval (MSEC) 102 ms [facility] QT-Interval (MSEC) 410 ms [facility] QTc 461 ms [facility] P Ola 91 degrees [facility] R Ola 72 degrees [facility] T Ola 66 degrees [facility] Diagnosis Normal sinus rhythm with sinus arrhythmia Minimal voltage criteria for LVH, may be normal variant ( Layo product ) Borderline ECG No previous ECGs available Confirmed by Martina Simmons MD ([id number]) on 07/31/2024 12:12:34 AM [facility] 07/30/2024 5:14 AM CDT 07/31/2024 12:12 AM CDT Nick Veliz MD ECG ORDERABLES Final Re sult Performing Organization Address [facility] Co de Phone Number [facility] * Potassium, whole blood (07/30/2024 12:07 AM CDT) Potassium, bld 3.9 3.3 - 4.9 mmol/L Blood 07/30/2024 12:0 7 AM CDT 07/30/2024 12:45 AM CDT Alicia Tuttle TECHNICIAN AUTOMATED EQUIPMENT LAB BLOOD ORDERABLES Final R esult Performing Organization Address [facility] Co de Phone Number [facility] [place] [address] * Potassium, whole blood (07/29/2024 5:13 PM CDT) Potassium, bld 3.9 3.3 - 4.9 mmol/L Blood 07/29/2024 5:13 PM CDT 07/29/2024 5:22 PM CDT Alicia Tuttle TECHNICIAN AUTOMATED EQUIPMENT LAB BLOOD ORDERABLES Final R esult Performing Organization Address [facility] Co de Phone Number [facility] Department [place] [address] * eGFR (07/29/2024 5:13 PM CDT) Pathologist [facility] eGFR 69 >=60 mL/min/1. 73 m2 Comment: [...] Vidal NP LAB BLOOD ORDERABLES Final Result [facility] [place] [address] * (ABNORMAL) Differential, auto (07/29/2024 5:13 PM CDT) Pathologist [facility] Neutrophil abs 8.30(H) 1.50 - 6.50 K/cumm Imm gran abs 0.05 0.00 - 0.10 K/cumm [facility] Lymphocyte abs 1.22 0.80 - 3.30 K/cumm [facility] Monocyte abs 1.20(H) 0.20 - 0.80 K/cumm [facility] Eosinophil abs 0.05 0.00 - 0.50 K/cumm [facility] Basophil abs 0.04 0.00 - 0.10 K/cumm [facility] Neutrophil pct 76.4 % [facility] Comment: Interpretive Data Percent cell count reference ranges are not reported, since discordance with absolute values may lead to misinterpretation of CBC data. Current Interpretive Data was last revised on 2017. Imm gran pct 0.5 % [facility] Comment: Interpretive Data Percent cell count reference ranges are not reported, since discordance with absolute values may lead to misinterpretation of CBC data. Current Interpretive Data was last revised on 2017. Lymphocyte pct 11.2 % [facility] Comment: Interpretive Data Percent cell count reference ranges are not reported, since discordance with absolute values may lead to misinterpretation of CBC data. Current Interpretive Data was last revised on 2017. Monocyte pct 11.0 % [facility] Comment: Interpretive Data Percent cell count reference ranges are not reported, since discordance with absolute values may lead to misinterpretation of CBC data. Current Interpretive Data was last revised on 2017. Eosinophil pct 0.5 % [facility] Comment: Interpretive Data Percent cell count reference ranges are not reported, since discordance with absolute values may lead to misinterpretation of CBC data. Current Interpretive Data was last revised on 2017. Basophil pct 0.4 % [facility] Comment: Interpretive Data Percent cell count reference ranges are not reported, since discordance with absolute values may lead to misinterpretation of CBC data. Current Interpretive Data was last revised on 2017. Blood 07/29/2024 5:13 PM CDT 07/29/2024 5:39 PM CDT us Kirstin Vidal NP LAB BLOOD ORDERABLES Final Result [facility] [place] [address] * (ABNORMAL) CBC with auto differential (07/29/2024 5:13 PM CDT) WBC 10.86(H) 3.80 - 9.90 K/cumm Hgb 14.0 13.0 - 17.5 g/dL [facility] Hct 41.2 38.9 - 50.3 % [facility] Plt 253 150 - 400 K/cumm [facility] MPV 10.7 9.1 - 12.3 fL [facility] RBC 3.96(L) 4.30 - 5.80 M/cumm [facility] MCV 104.0(H) 81.3 - 96.4 fL [facility] MCH 35.4(H) 27.1 - 33.3 pg [facility] MCHC 34.0 32.3 - 35.7 g/dL [facility] RDW CV 12.3 11.1 - 14.9 % [facility] RDW SD 47.4 35.7 - 48.1 fL [facility] NRBC abs 0.00 0.00 - 0.01 K/cumm [facility] Blood 07/29/2024 5:13 PM CDT 07/29/2024 5:39 PM CDT Kirstin Vidal NP LAB BLOOD ORDERABLES Final Result [facility] [place] [place] [address] * Type and screen (07/29/2024 5:13 PM CDT) Kumar, indirect Negative ABO Rh A Positive [facility] Blood 07/29/2024 5:13 PM CDT 07/29/2024 5:25 PM CDT Nick Veliz MD LAB BLOOD BANK TEST ORDE RABLES Final Result [facility] [place] [address] * Phosphorus (07/29/2024 5:13 PM CDT) Phosphorus, pl 3.2 2.3 - 4.5 mg/dL Blood 07/29/2024 5:13 PM CDT 07/29/2024 5:39 PM CDT Kirstin Vidal TECHNICIAN AUTOMATED EQUIPMENT LAB BLOOD ORDERABLES Final Result [facility] [place] [address] * Magnesium (07/29/2024 5:13 PM CDT) Pathologist [facility] Magnesium 1.8 1.4 - 2.5 mg/dL Blood 07/29/2024 5:13 PM CDT 07/29/2024 5:39 PM CDT Kirstin Vidal TECHNICIAN AUTOMATED EQUIPMENT LAB BLOOD ORDERABLES Final Result Performing Organization Address [facility] Co de Phone Number [facility] [place] [address] * (ABNORMAL) Hepatic function panel (07/29/2024 5:13 PM CDT) Bilirubin, total 1.0 0.1 - 1.2 mg/dL Bilirubin, direct 0.4(H) 0.1 - 0.3 mg/dL [facility] Protein, pl 7.0 6.5 - 8.5 g/dL [facility] Albumin 3.5 3.5 - 5.0 g/dL [facility] Alk phos 60 40 - 130 Units/L [facility] ALT 22 7 - 55 Units/L [facility] AST 26 10 - 50 Units/L [facility] Blood 07/29/2024 5:13 PM CDT 07/29/2024 5:39 PM CDT Renae Moseley DO LAB BLOOD ORDERABLE S Final Result Performing Organization Address City/[facility]/ZIP Co de Phone Number [facility] [place] [address] * (ABNORMAL) Basic metabolic panel (07/29/2024 5:13 PM CDT) Sodium 134(L) 135 - 145 mmol/L Potassium, pl 3.9 3.3 - 4.9 mmol/L [facility] Chloride 94(L) 97 - 110 mmol/L [facility] CO2 29 22 - 32 mmol/L [facility] Anion gap 11 2 - 15 mmol/L [facility] BUN 22 6 - 25 mg/dL [facility] Creatinine 1.12 0.80 - 1.30 mg/dL [facility] Glucose 111 70 - 199 mg/dL [facility] Comment: Interpretive Data Fasting glucose >/= 126 [...] 2022. Calcium 9.0 8.5 - 10.3 mg/dL [facility] Blood 07/29/2024 5:13 PM CDT 07/29/2024 5:39 PM CDT us Kirstin Vidal NP LAB BLOOD ORDERABLES Final Result [facility] [place] [address] * POCT glucose (07/29/2024 5:05 PM CDT) Pathologist [facility] Glucose, POC 97 70 - 199 mg/dL Blood 07/29/2024 5:05 PM CDT 07/29/2024 5:05 PM CDT us Nick Veliz MD LAB POCT ORDERABLES - DE VICE Final Result Performing Organization Address City/[facility]/ZIP Co de Phone Number [facility] Department [place] [address] * Prepare RBC: 4 Units (07/29/2024 4:07 PM CDT) [facility] Product code [id number] Unit Number [id number] 9-B [facility] Product Blood Type APOS [facility] Dispense Status RETURNED [facility] Product code [id number] [facility] Unit Number [id number] 2-S [facility] Product Blood Type APOS [facility] Dispense Status RETURNED [facility] Product code [id number] [facility] Unit Number [id number] 4-2 [facility] Product Blood Type APOS [facility] Dispense Status RETURNED [facility] Product code [id number] [facility] Unit Number [id number] 3-F [facility] Product Blood Type APOS [facility] Dispense Status RETURNED [facility] Blood 07/29/2024 4:07 PM CDT 07/29/2024 4:07 PM CDT Narrative [facility] - 07/30/2024 5:39 PM CDT Specify Procedure:->BioAVR on 07/30/24 Are special requirements needed? (All products are leukoreduced and CMV- safe)- >No Date required:-[id number] LRRBC # of [id number] Reasons:-Hold for procedure (specify procedure)} us Alicia Tuttle NP BLOOD BANK PRODUCT ORDERABLE S Final Result Performing Organization Address [facility] Co de Phone Number [facility] [place] [address] * (ABNORMAL) aPTT (07/29/2024 3:32 PM CDT) [facility] aPTT 52(H) 28 - 38 sec Comment: Interpretive Data Heparin therapeutic range: 66.0 - 100.0 seconds. Range based on correlation with therapeutic heparin activity range of 0.3 - 0.7 Units/mL. Current interpretive data was last revised on 2023. Blood 07/29/2024 3:32 PM CDT 07/29/2024 3:50 PM CDT Raheem [facility] - 07/29/2024 4:00 PM CDT Draw STAT PTT 2 hours after initiation of bivalirudin infusion, draw STAT PTT 2 hours after each dose change, and every 2 hours until 2 consecutive PTTs are within therapeutic range. Once two consecutive PTTs are therapeutic (50-80 seconds), then draw PTT every AM until bivalirudin is discontinued. us Renae Moseley DO LAB BLOOD ORDERABLE S Final Result [facility] One [facility] [place] [address] * (ABNORMAL) Urinalysis reflex to microscopic and culture Urine, clean voided (07/29/2024 2:43 PM CDT) Color, ur Straw Yellow Clarity, ur Clear Clear [facility] Specific gravity, ur 1.012 1.003 - 1.030 [facility] pH, urine 7.0 [facility] Comment: Interpretive Data U rine pH is affected by diet, medications, systemic acid-base disturbances, and renal tubular function. pH may affect urinary stone formation. For example, urine pH below 6.0 may help reduce the tendency for calcium phosphate stones and pH greater than 6.0 may reduce the tendency for uric acid stone formation. Source: [facility] [employer] Current Interpretive Data was last revised on 2017 Protein, ur ql Negative Negative [facility] Glucose, ur ql Negative Negative [facility] Ketones, ur Negative Negative [facility] Bilirubin, ur Negative Negative [facility] Blood, ur Trace(A) Negative [facility] Urobilinogen, ur <2.0 <2.0 mg/dL [facility] Nitrite, ur Negative Negative [facility] Leukocyte esterase, ur Negative Negative [facility] UA reflex comment Reflex to microscopic UA will be performed. [facility] Urine, clean voided 07/29/2024 2:43 PM CDT 07/29/2024 3:20 PM CDT Aide Galicia TECHNICIAN AUTOMATED EQUIPMENT LAB MICROBIOLOGY - GE NERAL ORDERABLES Final Result Performing Organization Address [facility]/ZIP Co de Phone Number [facility] [place] [address] * (ABNORMAL) Urinalysis, microscopic only (07/29/2024 2:43 PM CDT) WBC, ur 0-5 0 - 5 /HPF RBC, ur 3-5(A) 0 - 2 /HPF [facility] Epithelial cells, squamous, ur 1-5 0 - 5 /HPF [facility] Mucous, ur Present(A) [facility] Hyaline casts, ur 1-5 0 - 10 /LPF [facility] Culture Reflex Comment Reflex conditions for urine culture (WBC >10) not met. [facility] Urine, clean voided 07/29/2024 2:43 PM CDT 07/29/2024 3:20 PM CDT Aide Galicia NP LAB URINE ORDERABLES Final Result Performing Organization Address [facility] Co de Phone Number [facility] [place] [address] * POCT glucose (07/29/2024 11:55 AM CDT) Pathologist [facility] Glucose, POC 120 70 - 199 mg/dL Blood 07/29/2024 11:5 5 AM CDT 07/29/2024 11:55 AM CDT Nick Veliz MD LAB POCT ORDERABLES - DE VICE Final Result Performing Organization Address [facility]/ZIP Co de Phone Number [facility] [place] [address] * (ABNORMAL) Potassium, whole blood (07/29/2024 11:49 AM CDT) Pathologist [facility] Potassium, bld 3.2(L) 3.3 - 4.9 mmol/L Blood 07/29/2024 11:4 9 AM CDT 07/29/2024 12:05 PM CDT us Alicia Tuttle TECHNICIAN AUTOMATED EQUIPMENT LAB BLOOD ORDERABLES Final R esult Performing Organization Address [facility]/ZIP Co de Phone Number [facility] [place] [address] * (ABNORMAL) aPTT (07/29/2024 11:49 AM CDT) [facility] aPTT 49(H) 28 - 38 sec Comment: Interpretive Data Heparin therapeutic range: 66.0 - 100.0 seconds. Range based on correlation with therapeutic heparin activity range of 0.3 - 0.7 Units/mL. Current interpretive data was last revised on 2023. Blood 07/29/2024 11:4 9 AM CDT 07/29/2024 12:07 PM CDT [facility]ative [facility] 07/29/2024 12:34 PM CDT Draw STAT [...] ORDERABLE S Final Result Performing Organization Address City/[facility]/ZIP Co de Phone Number [facility] [place] [address] * (ABNORMAL) Protime-INR (07/29/2024 11:49 AM CDT) [facility] PT 16.1(H) 9.7 - 13.0 sec INR 1.48(H) 0.90 - 1.20 [facility] Comment: Interpretive data Oral anticoagulant therapeutic ranges: Venous thromboembolism prophylaxis or treatment: 2.0-3.0 CARDIOLOGY Standard range: 2.0-3.0 High-intensity range: 2.5-3.5 Refer to indication-specific guidelines for appropriate target ranges for prosthetic heart valve replacement. Current interpretive data was last revised on 2019. Blood 07/29/2024 11:4 9 AM CDT 07/29/2024 12:07 PM CDT us Nick Veliz MD LAB BLOOD ORDERABLES Fin al Result [facility] One [facility] [place] [address] * Pulmonary Function Test -[facility] [place]; Standard, Spirometry with Bronchodilator, ABG, DLCO; Spirometry, Spirometry w/bronchodilator, DLCO and Lung Volumes; Room Air ABG; Spirometry (07/29/2024 11:42 AM CDT) FVC PRE 2.59 L [facility] FVC %PRE PRED 58 % [facility] FEV1 PRE 1.84 L [facility] FEV1 %PRE PRED 56 % [facility] FEV1/FVC PRE 70.8 % [facility] FRC PL PRE 2.83 L [facility] FRC PL %PRE PRED 68 % [facility] RV PRE 1.79 L [facility] RV %PRE PRED 66 % [facility] TLC PRE 4.45 L [facility] TLC %PRE PRED 58 % [facility] DLCO PRE 16.2 ml/min/mmH g [facility] DLCO %PRE PRED 58 % [facility] FIO2 % 21.00 % [facility] PaO2 84.0 mmHg [facility] PaCO2 33.0 mmHg [facility] pH 7.55 [facility] A-aDO2 POC 24.0 mmHg [facility] METHGB % 0.2 % [facility] COHb POC 2.3 % [facility] HCO3 28.9 mEq/L [facility] Anatomical Region Laterality Modality PFT 07/29/2024 11:1 3 AM CDT Narrative 07/29/2024 5:09 PM CDT Scheduled for OR on 07/30 Patient Location:->[facility] Standard:->Spirometry, Spirometry w/bronchodilator, DLCO and Lung Volumes [...] and %HbO2 is age dependent. However, the [facility] Pulmonary Function Laboratory defines hypoxemia as a PaO2 <56 mm Hg or a %HbO2 <89%. Starting on April of 2024 the [facility] Pulmonary Function Laboratory utilizes race neutral GLI Global normative equations. us Alicia Tuttle TECHNICIAN AUTOMATED EQUIPMENT PFT ORDERABLES Final Result * US Carotids Duplex Bilateral (07/29/2024 11:13 AM CDT) Anatomical Region Laterality Modality Vascular Bilateral Ultrasound 07/29/2024 9:36 AM CDT Narrative 07/29/2024 6:39 PM CDT [facility] - Department of Vascular Surgery, Vascular Laboratory [address] [place] [id number] Carotid Duplex Ultrasound Report Patient Name: SHEY SHAH C : 1950 (73y 11m) Study Date: 07/29/2024 9:36:47 AM Gender: M Tech: Location: [id number] Ref Provider: ALICIA TUTTLE Quality: Adequate Order [...] LT VERT PSV 38 cm/sec FINDINGS: Performing Video Clerk: Yen Estrella RVT. Rt Common Carotid Artery: [...] Procedure Note Willie Saldivar MD - 07/29/2024 [facility] - Department of Vascular Surgery,Vascular Laboratory [address] [place] [address] Carotid Duplex Ultrasound Report Patient Name: SHEY SHAH C : 1950 (73y 11m) Study Date: 07/29/2024 9:36:47 AM Gender: M Tech: Location: [id number] Ref Provider: ALICIA TUTTLE Quality: Adequate Order [...] LT VERT PSV 38 cm/sec FINDINGS: Performing Video Clerk: Yen Estrella RVT. Rt Common Carotid Artery: [...] 07/29/2024 6:38:30 PM CDT us Alicia Tuttle TECHNICIAN AUTOMATED EQUIPMENT IMG US PROCEDURES Final Resu lt * POCT glucose (07/29/2024 8:00 AM CDT) Glucose, POC 117 70 - 199 mg/dL Blood 07/29/2024 8:00 AM CDT 07/29/2024 8:00 AM CDT Nick Veliz MD LAB POCT ORDERABLES - DE VICE Final Result Performing Organization Address [facility] Co de Phone Number [facility] [place] [address] * Hepatitis C antibody Blood (06/22/2024 5:59 AM CHAIN PEGGER) Pathologist [facility] Hep C Ab Nonreactive Nonreactive Comment:Antibodies to HCV no t detected. Does NOT exclude the possibility of recent exposure to HCV. Current interpretive data was last revised on 21 Blood 06/22/2024 5:59 AM CHAIN PEGGER 06/22/2024 6:19 AM CHAIN PEGGER Clovis Villalpando MD LAB MICROBIOLOGY - GENERA L ORDERABLES Final Result [facility] [place] [address] * CT Chest Abdomen Pelvis W Contrast (06/21/2024 12:38 PM CHAIN PEGGER) Anatomical Region Laterality Modality Body N/A Computed Tomogra phy 06/21/2024 1:30 PM CHAIN PEGGER Impressions 06/21/2024 2:02 PM CHAIN PEGGER 1. No findings of acute trauma in [...] Pillai MD, PHD Narrative 06/21/2024 2:02 PM CHAIN PEGGER EXAMINATION: Computed tomography of the chest, abdomen [...] Most Recently Relevant to Health Maintenance Insurance [employer] MEDICARE FOR LIFE MEDICARE Advance Directives For more information, please contact: [phone] * Full Code (Latest Code Status on File) Date Activated Date Inactivated Comments 07/30/2024 5:08 PM 08/13/2024 12:58 AM * Full Code Date Activated Date Inactivated Comments 07/25/2024 3:21 AM 07/30/2024 5:08 PM * Full Code Date Activated Date Inactivated Comments 06/21/2024 3:36 PM 06/22/2024 5:14 PM Care Teams Scarf Gluer Relationship Specialty Start Date End Date Juanito Woodward MD [address] [place] [id number] PCP - General 08/10/16 Juanito Woodward MD [address] [place] [address] 08/10/16 Nick Veliz MD [address] [place] [address] Consulting Physician Cardiothoracic Surgery 08/12/24 Miscellaneous, Not In File 08/12/24
== END 2024-10-28 12:35 | disposition home or self-care (01) ==
LOC: ANHCARD 12:35
PROVIDERS: PCP Emergency Medicine; Visit Provider Internal Medicine Cardiovascular Disease
DX: I35.8 Other nonrheumatic aortic valve disorders (principal); I34.81 Nonrheumatic mitral (valve) annulus calcification; I35.0 Nonrheumatic aortic (valve) stenosis; I07.1 Rheumatic tricuspid insufficiency; Z95.2 Presence of prosthetic heart valve
CPT/HCPCS: 93306

== ENCOUNTER 2024-12-02 11:00 | Outpatient (RCR) | payer MEDICARE, OTHER, SELFPAY ==
--- NOTE | 2024-11-04 13:28 | OPREHPOC ---
Outpatient Therapy Plan of Care This is a Multidisciplinary Plan of Care that may contain components documented by all disciplines (PT, OT, and ST.) PT Problem 1 PT Problem #1 Knowledge Deficit PT Goal 1 Goal / Goal Update 1* independent with HEP 2* correct body mechanics with lifting from the floor Target Visit 8 PT Problem 2 PT Problem #2 Pain PT Goal 1 Goal / Goal Update * pain rating of 2/10 at worst with increased activity and strength Target Visit 8 PT Problem 3 PT Problem #3 Impaired Strength PT Goal 1 Goal / Goal Update increase strength of R shoulder, to improve his use of his dominant UE: in standing with hand weight x 5 reps; 1* flexion to 120' with 3# 2* abduction to 120' with 2# Target Visit 8 PT Problem 4 PT Problem #4 Impaired Flexibility PT Goal 1 Goal / Goal Update in standing active R shoulder ROM: 1* flexion 135' 2* abduction 135' 3* IR- reach behind back, fingers to lower scapula Target Visit 8
--- NOTE | 2024-11-04 13:28 | PTOPEVAL1 ---
Assessment and note entered by Tia Conn, PT Evaluation Information Assessment Status Evaluation ICD-10 Condition Codes (PT) Pain in right shoulder M25.511,Weakness R53.1 Other ICD-10 Condition Codes ( S42.91XZ-fracture R shoulder S43.004A- R shoulder PT) dislocation Onset 06-21-24 Subjective Information fell on ice, dislocated and fracture of R shoulder / non-surgical in May; then had open heart surgery July 2024; after cardiac surgery had in pt rehab and shoulder had PT also at that time;and when at home, had HH therapy. discharged from home health therapy last week HEP: have pullys, do arm stretching with arm on table, isometric in doorway, wall climb, theraband in doorway; activity: R hand dominant, retired; prior to fall- independent with all home and self care activities; is not very active, watch TV, daily walks with dog and for his heart; GOAL: get strength and mobility back of the shoulder; not have shoulder feel so tight all the time; Reported Pain Level Pain Score Self Report Additional Pain Score Comments pain range in the past week 2-310; tight over shoulder; tingling too sometimes; increase pain; lift arm up decrease pain: rest, stretch with exercises; is not using heat or ice- instruct on PRN use shoulder does not limit his sleeping; Assessment PT Clinical Summary Dorian has the diagnosis of R shoulder dislocation and fracture s/p fall on the ice in May. And in July had open heart surgery. He has completed in pt and HH care therapy for shoulder and post op cardiac, continues to do shoulder HEP. He is R hand dominant with self assessment Quick DASH rating of 25% limitation in activity level. He is retired. With the evaluation: decreased strength and ROM of R shoulder with poor standing posture. Skilled PT services are indicated for modalities to decrease pain and tightness, therapeutic exercises to increase R shoulder strength and ROM with improve posture and education for HEP and body mechanics. Plan of Care Interventions Electrical Stimulation,Hot Pack/Cold Pack,Manual Therapy,Neuro Re-education,Patient/Caregiver Education,Therapeutic Activities,Therapeutic Exercise,Ultrasound,Other Other Interventions taping PT Services Indicated Yes Treatment Frequency and 1-2x/wk for 8 visits Duration These treatments will address the objective and functional deficits as defined above. The patient will be advanced safely and appropriately in order for the patient to progress towards his/her prior level of function. Additional exercises will be introduced and as well as a comprehensive home exercise program upon discharge, if needed, ?to ensure carryover of functional gains achieved in the clinic. This treatment plan has been reviewed and agreement upon by the patient.
--- NOTE | 2024-12-02 11:45 | OPREHPOC ---
Outpatient Therapy Plan of Care This is a Multidisciplinary Plan of Care that may contain components documented by all disciplines (PT, OT, and ST.) PT Problem 1 PT Problem #1 Knowledge Deficit PT Goal 1 Goal / Goal Update 1* independent with HEP 2* correct body mechanics with lifting from the floor 12-02-24 d/c goals met Target Visit 8 Progress Met PT Problem 2 PT Problem #2 Pain PT Goal 1 Goal / Goal Update * pain rating of 2/10 at worst with increased activity and strength 12-02-24 d/c goal not met, 4/10 is worst rating Target Visit 8 Progress Not Met PT Problem 3 PT Problem #3 Impaired Strength PT Goal 1 Goal / Goal Update increase strength of R shoulder, to improve his use of his dominant UE: in standing with hand weight x 5 reps; 1* flexion to 120' with 3# 2* abduction to 120' with 2# 12-02-24 d/c goal 1 met and #2 partially met--for weight but not ROM, to 95' Target Visit 8 Progress Partially Met PT Problem 4 PT Problem #4 Impaired Flexibility PT Goal 1 Goal / Goal Update in standing active R shoulder ROM: 1* flexion 135' 2* abduction 135' 3* IR- reach behind back, fingers to lower scapula 12-02-24 d/c goals met Target Visit 8 Progress Met
--- NOTE | 2024-12-02 11:45 | PTOPDC ---
Assessment and note entered by Tia Conn, PT Assessment Status Discharge ICD-10 Condition Codes (PT) Pain in right shoulder M25.511,Weakness R53.1 Other ICD-10 Condition Codes ( S42.91XZ-fracture R shoulder S43.004A- R shoulder PT) dislocation Onset 06-21-24 Subjective Information feel shoulder is doing better--more motion but still some stiffness; only thing that gives me trouble lifting something heavy with this arm, over 10# or so and reaching up higher with that weight; doing the exercises at home; Reported Pain Level Pain Score Self Report Additional Pain Score Comments pain range in the past week 0-4/10 increase pain: lifting up over head, lifting weight decrease pain: rest arm, not using pain meds,heat, ice; is sleeping OK Assessment PT Clinical Summary Dorian has received a total of 8 PT sessions. With today's assessment: pain rating of 0-4/10 in R shoulder; self assessment with Quick DASH of 9% limitation in activity level; education completed and he is independent with HEP. ROM of R shoulder active/passive: flexion 140'/150' and abduction 135'/150'; active IR- reach behind back, fingers to inferior scapula; ER- reach palm to back of head Strength: in standing shoulder flexion to 120' with 3# hand wt and abduction to 95' with 2# hand weight x 5 reps Maximum, bilateral UE box lift: waist/floor height 22# and waist/shoulder height 10#; The goals were partially achieved. Discharge PT. He is to continue with the HEP and progress activity and strengthening as able. Plan of Care PT Services Indicated No
== END 2024-12-02 12:48 | disposition home or self-care (01) ==
LOC: ANHPT 11:00
PROVIDERS: PCP Emergency Medicine; Visit Provider Orthopaedic Surgery
DX: M25.519 Pain in unspecified shoulder (principal); S42.91XA Fracture of right shoulder girdle, part unspecified, initial encounter for closed fracture; S43.004A Unspecified dislocation of right shoulder joint, initial encounter
CPT/HCPCS: 97035; 97110; 97140; 97161; 97530

== ENCOUNTER 2024-12-06 19:14 | Inpatient (IN) | payer MEDICARE, OTHER, SELFPAY ==
[2024-12-06 19:23] VITALS: BP 124/56; PULSE 82; RESP 18; TEMP 36.8; O2SAT 98
[2024-12-06 19:40] LABS: Hematocrit 23.0 % (42.0-52.0); Hemoglobin 7.4 g/dL (14.0-18.0); Immature Granulocyte Percent A 0.5 % (0-0.5); Lymphocytes Absolute Auto 1.47 K/mm3 (0.9-3.2); Mean Corpuscular HGB Conc 32.2 g/dl (32-36); Mean Corpuscular Hemoglobin 29.2 pg (26-34); Mean Corpuscular Volume 90.9 fl (80-100); Nucleated Red Blood Cells Absolute Auto 0.000 K/mm3 (0.0-0.012); Nucleated Red Blood Cells Perc 0.0 % (0.0-0.2); Platelet Count Result 201 k/mm3 (150-375); Red Blood Count 2.53 M/mm3 (4.6-6.20); White Blood Count 8.6 K/mm3 (4.5-10.0)
--- OUTSIDE RECORDS SUMMARY | 2024-12-06 19:40 | XMS_ITS | Continuity of Care Document ---
Author Organization [employer] [facility] Address [address] [facility], [place], [facility] [address] [place] [address] Phone Care Team Providers Care Promotions Producer Name Role Phone [place] SOTO FACS, Rip [...] Diagnoses Date Provider Providers Copied on Encounter [facility], [facility] [address], [place], [place], [id number], [place] tel:[phone] [facility] [address] [place] FO[facility]-UP SURGERY NOS - [address] [place] [address]. [facility] [address], [place], [place], [address], [place]. tel:[phone] [facility], [address], [place], [place], [address], [place] tel:[phone] [facility] [place] [address] [place] [facility]-UP SURGERY NOS - [address] [place] [address]. [address], [address], [place], [place], [address], [place]. tel:[phone] [facility], [address], [place], [place], [address], [place] tel:[phone] [facility] No Information [address] [place] [address]. [facility] [address], [place], [place], [address], [place]. tel:[phone] Referring Provider: Rip Velasco, [facility] [address], [place], [address] . tel:[phone] [facility], [facility] [place] [address], [place], [place], [address], [place] tel:[phone] [facility] [place] [address] [place] No Information [address] [place] [address], [address], [place], [place], [address], [place]. tel:[phone] [facility], [address], [place], [place], [address], [place] tel:[phone] [facility] [place] [address] [place] No Information Jan-2 8 [address] [place] [address], [address], [place], [place], [address], [place]. tel:[phone] Referring Provider: Saúl Garrison, [address] [facility] [address], [place], [address]. tel:[phone] [facility], [address], [place], [place], [address], [place] tel:[phone] [facility] [address] No Information [address] [place] [address], [place], [place], [address], [place]. tel:[phone] [facility], [address] [place], [place] [address]st [address], [place], [place], [address], [place] tel:[phone] [facility] No Information Oct-2 3-200 9 Krishnasamy Shawn. [address], [place], [facility], [place]. tel:[phone] [facility], [address], [place], [place], [address], [place] tel:[phone] [facility] No Information Oct-0 2-200 9 Krishnasamy Shawn. [address], [place], [address], [place]. tel:[phone] [facility], [address] [place] [address] [address], [place], [place], [address], tel:[phone] [facility] No Information Sep-2 5-200 9 Krishnasamy Shawn. [address], [facility], . tel:[phone] [facility], [address] [place] [address] [address], [place], [place], [address], tel:[phone] [facility] No Information Sep-2 4-200 9 Krishnasamy Shawn. [address], [facility], . tel:[phone] Referring Provider: Saúl Lopez OD F, [address] [facility] [address], [place], [place], [facility]. tel:[phone] [facility], [address] [place] [address] [address], [place], [place], [address], tel:[phone] [facility] No Information Sep-0 2-200 9 Krishnasamy Shawn. [address] [place] [address], [facility], . tel:[phone] Referring Provider: Saúl Lopez OD F, [address] [facility] [address], [place], [facility]. tel:[phone] Family History Family Member Type Diagnosis Age [...] Information Instructions Date Instruction Additional Infor mation - 6 months iol check Related to [...]
--- OUTSIDE RECORDS SUMMARY | 2024-12-06 19:40 | XMS_ITS | Encounter Summary ---
Author Organization [facility] Address [address] [facility] [address] [place] [address] Care Team Providers Care Licensing Court Magistrate Name Role Phone Juanito Woodward MD Primary Care Provide r Juanito Woodward MD Unavailable [phone] Nick Veliz MD Unavailable Miscellaneous, Not In File Unavailable Unava ilable Encounter Details Date Type Department Care Team (Late st Contact Info) Description 08/21/2016 Orders Only [facility] ProviderNeil MD [address] [place] [address] Social History Tobacco Use Types Packs/Day Years Used Date Smoking Tobacco: Never Assessed Sex and Gender Information Value Date Recorded Sex Assigned at Not on file 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 [address] [facility] 08/05/2024 08/05/2024 08/13/2024 9:27 AM C DT documented as of this encounter Care Teams Licensing Court Magistrate Relationship Specialty Start Date End Date Juanito Woodward MD [address] [place] [address] PCP - General 08/10/16 Juanito Woodward MD [address] [place] [address] 08/10/16 Nick Veliz MD [address] [place] [address] Consulting Physician Cardiothoracic Surgery 08/12/24 Miscellaneous, Not In File 08/12/24 documented as of this encounter
--- OUTSIDE RECORDS SUMMARY | 2024-12-06 19:40 | XMS_ITS | Clinical Summary ---
Author Organization [facility] Address [address] [place] [address] Care Team Providers Care [employer] Docent Name Role Phone Juanito Woodward MD Primary Care Provide r Juanito Woodward MD Unavailable [phone] Nick Veliz MD Unavailable [phone] Miscellaneous, Not In File Unavailable Unava ilable [...] a day 5 08/13/19 26 Active multivit hhswlvwl-xcjt-IK -calcium (THERA-M) 9 mg iron-400 mcg tablet [...] (two) times a day 5 08/13/19 Active Additional Information Patient not taking.Reported on 09/02/2024 tamsulosin (FLOMAX) 0.4 mg extended release capsule Take 1 capsule (0.4 mg total) by mouth daily with dinner 5 Active thiamine (VITAMIN B1) 100 mg tablet Take 1 tablet (100 mg total) by mouth daily 5 08/14/19 26 Active white petrolatum-principal examiner al oil (REFRESH PM) ointment Apply [...] and volume overload S/p 4/2 MVr (32mm rosita annuloplasty band), AVR(25mm Magna), ascending aortic graft, Left atrial MAZE, JORGE, and Impella 5.5 insertion. Continue current medical tx Plan to repeat TTE tomorrow 08/12 (OR within 2 days of discharge - Per Dr Veliz) See problem Assessment & Plan (2024 1:30 PM CDT): Prior EF>70% 04/2023, OSH TTE with EF 35-40% iso worsening and volume overload S/p 4/2 MVr (32mm rosita annuloplasty band), AVR(25mm Magna), ascending aortic graft, [...] Assessment & Plan (08/11/2024 10:39 AM CDT): /2: MVr (32mm rosita annuloplasty band), AVR(25mm Magna), ascending aortic graft, [...] (2024 1:30 PM CDT): /2: MVr (32mm rosita annuloplasty band), AVR(25mm Magna), ascending aortic graft, [...] 3.8 m/s. 07/25 he was transferred to [facility] for surgical evaluation. 42: MVr (32mm rosita annuloplasty band), AVR(25mm Magna), ascending aortic graft, [...] 3.8 m/s. 07/25 he was transferred to [facility] for surgical evaluation. 07/30: MVr (32mm rosita annuloplasty band), AVR(25mm Magna), ascending aortic graft, [...] 06/21/2024 Assessment & Plan (06/22/2024 7:30 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): -right shoulder dislocation and humeral head fracture s/p reduction by ortho in the ED -continue sling, RUE NWB -pain control with tylenol, ketorolac, and PRN oxycodone -ortho to set up outpatient follow up Acute respiratory failure 06/21/2024 Assessment & Plan (06/22/2024 7:30 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): -unclear etiology, suspect community acquired pneumonia, atelectasis, [...] 06/21/2024 Assessment & Plan (06/22/2024 7:30 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): -reportedly drinks 4-5 beers/day. Denies history of [...] TID Assessment & Plan (06/21/2024 4:02 PM RECONDITIONING ASSOCIATE): -continue amlodipine and losartan Resolved Problems Problem Noted Date Diagnosed Date Resolved Date Hyponatremia 06/21/2024 07/27/2024 Assessment & Plan (06/21/2024 4:05 PM RECONDITIONING ASSOCIATE): -chronic per patient, unclear etiology -sodium tabs prescribed as outpatient, continue for now. Encounters Date Type Department Care Team Description 11/04/2024 6:23 PM CDT - 11/04/2024 11:59 PM CDT Hospital Encounter [facility] [address] [place] [address] Discharge Disposition: Discharge to home or self care from Last 3 Months Surgical History Surgery Date Site/Laterality Comments CARDIAC CATHETERIZATION 07/28/2024 N/A Procedure: RIGHT HEART CATHETERIZATION 81678; Surgeon: Peter Kulkarni MD PhD; Location: [facility] CARDIAC DRAG OUT MAN; Service: Cardiovascular; Laterality: N/A; CARDIAC CATHETERIZATION 07/28/2024 N/A Procedure: LEFT HEART CATHETERIZATION WITH CORONARY ANGIOGRAPHY AND WITH OR WITHOUT LEFT VENTRICULOGRAM [id number]; Surgeon: Peter Kulkarni MD PhD; Location: [facility] CARDIAC DRAG OUT MAN; Service: Cardiovascular; Laterality: N/A; CARDIAC ELECTROPHYSIOLOGY PROCEDURE 07/30/2024 Chest/N/A Procedure: ATRIAL FIBRILLATION ABLATION, ASCENDING AORTIC GRAFT; Surgeon: Nick Veliz MD; Location: [facility] OR POD 3; Service: Cardiothoracic; Laterality: N/A; [...] on file Legal Sex Male 1:55 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 Gender Identity Not on file Sexual Orientation [...] 03/18/2021, Additional history exists Influenza Vaccine (#1) 2024 , 02/16/2022, 03/18/2021, Additional history exists Fall Risk Assessment 08/12/2025 08/12/2024 Zoster Vaccine Completed 08/07/2020, 04/30, 01/26/2014 Abdominal Aortic Aneurysm (A AA) Screen Completed 06/21/2024 Hepatitis C Screening Completed 06/22/2024 Medical Devices Implanted Type Area Weatherseal Technician Device Identifier Shelf Expiration Date Model / Serial / Lot Terumo Cardio Vascular Gelweave 10mm 30cm Suture Retention Unique Hydrolyzable Abdomen [id number] - [id number] - [id number] Implanted:Qty: 1 on 07/30/2024 by Nick Veliz MD at [facility] Other - see comments N/A: Heart Terumo Cardio Vascular [id number] 04/29/2027 [id number] / [id number] / [id number] Atricure Device Closure Atriclip Nitinol Polyester 45 D L35mm L6cm Flexible Shaft Plunger Terrazzo Mechanic Helper Left Atrial Appendage Exclusion System [id number] - [id number] - [id number] Implanted:Qty: 1 on 07/30/2024 by Nick Veliz MD at [facility] Other - see comments N/A: Heart Atricure 04/30/2027 [id number] / [id number] / [id number] Fernandez [employer] Rosita-Cristi ds 32mm 39.6mm 31.9mm 70.4mm Flexible Band Template [id number] - [id number] - [id number] Implanted:Qty: 1 on 07/30/2024 by Nick Veliz MD at [facility] Other - see comments N/A: Mitral Valve Fernandez [employer] [id number] 10/16/2027 [id number] / [id number] / 0 [employer] Kit Ventricular Assist Device Pump Percutaneous Impella 5.5 Smartassist [id number] - [id number] - [id number] Implanted:Qty: 1 on 07/30/2024 by Nick Veliz MD at [facility] Other - see comments N/A: Heart [employer] Inc [id number] 12/28/2025 [id number] / [id number] / [id number] Description:S/B Clinical Tri al device [id number] IMPELLA 5.5 [id number] per [facility] Trial Synthetic Soil Blocks Pulper [employer] Magna Ease 25mm [id number] - [id number] - [id number] Implanted:Qty: 1 on 07/30/2024 by Nick Veliz MD at [facility] Prosthetic Valve N/A: Aortic Valve [employer] [id number] 10/17/2027 [id number] / [id number] / 0 Procedures Procedure Name Priority Date/Time Associated Diagnosis Comments HEMOGLOBIN FREE, PLASMA Routine 11/05/2024 12:48 PM CDT Secondary hypertension Heart failure with reduced ejection fraction (HCC) Aortic stenosis, severe LACTATE DEHYDROGENASE Routine 11/05/2024 12:48 PM CDT Secondary hypertension Heart failure with reduced ejection fraction (HCC) Aortic stenosis, severe COMPREHENSIVE METABOLIC PANEL Routine 11/05/2024 12:48 PM CDT Secondary hypertension Heart failure with reduced ejection fraction (HCC) Aortic stenosis, severe CBC WITHOUT DIFFERENTIAL Routine 11/05/2024 12:48 PM CDT Secondary hypertension Heart failure with reduced ejection fraction (HCC) Aortic stenosis, severe PRO B-TYPE NATRIURETIC PEPTIDE Routine 11/05/2024 12:48 PM CDT Secondary hypertension Heart failure with reduced ejection fraction (HCC) Aortic stenosis, severe US TRANSFER OF OUTSIDE FILMS Routine 11/04/2024 6:23 PM CDT HEPATITIS C ANTIBODY Routine 06/22/2024 5: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 CHEST ABDOMEN PELVIS W CONTRAST ED 06/21/2024 12:38 PM RECONDITIONING ASSOCIATE from Last 3 Months or Most Recently Relevant to Health Maintenance Results * (ABNORMAL) Pro B-type natriuretic peptide (11/05/2024 12:48 PM CDT) NT PROBNP 472(H) <125 pg/mL [facility] Blood 11/05/2024 12:4 8 PM CDT 11/05/2024 12:48 PM CDT Narrative [facility] - 11/09/2024 12:25 AM CDT FASTING:NO FASTING: NO us Nick Veliz MD LAB BLOOD ORDERABLES Fin al Result [facility] [address] [id number] * (ABNORMAL) CBC without differential (11/05/2024 12:48 PM CDT) [facility] WBC 9.4 3.8 - 10.8 Thousand/u L [facility] RBC, POC 3.94(L) 4.20 - 5.80 Million/uL [facility] Hgb 11.7(L) 13.2 - 17.1 g/dL [facility] Hct 36.9(L) 38.5 - 50.0 % [facility] MCV 93.7 80.0 - 100.0 fL [facility] MCH 29.7 27.0 - 33.0 pg [facility] MCHC 31.7(L) 32.0 - 36.0 g/dL [facility] Comment: For adults, a slight decrease in the calculated MCHC value (in the range of 30 to 32 g/dL) is most likely not clinically significant; however, it should be interpreted with caution in correlation with other red cell parameters and the patient's clinical condition. Rdw 12.5 11.0 - 15.0 % [facility] Platelets 274 140 - 400 Thousand/u L [facility] MPV 10.8 7.5 - 12.5 fL [facility] Blood 11/05/2024 12:4 8 PM CDT 11/05/2024 12:48 PM CDT [facility] - 11/09/2024 12:25 AM CDT FASTING:NO FASTING: NO Nick Veliz MD LAB BLOOD ORDERABLES Fin al Result [facility] [address] [id number] * Lactate dehydrogenase (LD) (11/05/2024 12:48 PM CDT) [facility] Lactate dehydrogenase (LDH) 147 120 - 250 U/L [facility] Blood 11/05/2024 12:4 8 PM CDT 11/05/2024 12:48 PM CDT Narrative [facility] - 11/09/2024 12:25 AM CDT FASTING:NO FASTING: NO Nick Veliz MD LAB BLOOD ORDERABLES Fin al Result Performing Organization Address City/[facility]/ZIP Co de Phone Number [facility] [address] [place] [address] * Hemoglobin free, plasma (11/05/2024 12:48 PM CDT) Hemoglobin, Free, Plasma 2.0 <8.4 mg/dL [facility] Comment: This test was developed and its analytical performance characteristics have been determined by [facility] [place], [place]. It has not been cleared or approved by the U.S. Food and Drug Administration. This assay has been validated pursuant to the CLIA regulations and is used for clinical purposes. Blood 11/05/2024 12:4 8 PM CDT 11/05/2024 12:48 PM CDT Narrative [facility] - 11/09/2024 12:25 AM CDT FASTING:NO FASTING: NO Nick Veliz MD LAB BLOOD ORDERABLES Fin al Result Performing Organization Address City/[facility] Co de Phone Number [facility] [address] [facility] [place] [address] * (ABNORMAL) Comprehensive metabolic panel (11/05/2024 12:48 PM CDT) Glucose 94 65 - 139 mg/dL [facility] Comment: Non-fasting reference interval BUN 15 7 - 25 mg/dL [facility] Creatinine 1.26 0.70 - 1.28 mg/dL [facility] eGFR 60 > OR = 60 mL/min/1.7 3m2 [facility] BUN/creat ratio SEE NOTE: 6 (calc) [facility] Comment: Not Reported: BUN and Creatinine are within reference range. Sodium 133(L) 135 - 146 mmol/L [facility] Potassium, pl 4.3 3.5 - 5.3 mmol/L [facility] Chloride 94(L) 98 - 110 mmol/L [facility] CO2 30 20 - 32 mmol/L [facility] Calcium 9.4 8.6 - 10.3 mg/dL [facility] Protein, sr 7.6 6.1 - 8.1 g/dL [facility] Albumin 4.2 3.6 - 5.1 g/dL [facility] GLOBULIN 3.4 1.9 - 3.7 g/dL (calc) [facility] Alb/glob ratio 1.2 1.0 - 2.5 (calc) [facility] Bilirubin, total 0.5 0.2 - 1.2 mg/dL [facility] Alk phos 61 35 - 144 U/L [facility] AST 16 10 - 35 U/L [facility] ALT (SGPT) 10 9 - 46 U/L [facility] Blood 11/05/2024 12:4 8 PM CDT 11/05/2024 12:48 PM CDT Narrative [facility] - 11/09/2024 12:25 AM CDT FASTING:NO FASTING: NO us Nick Veliz MD LAB BLOOD ORDERABLES Fin al Result [facility] [address] [phone] * US Outside Reference (11/04/2024 6:23 PM CDT) Impressions RAD_PACS_[facility] - 11/04/2024 6:23 PM CDT These images are for Reference purposes only and have not been reviewed by [facility] Radiology. There will be no report generated by a [facility] Radiologist. Narrative RAD_PACS_[facility] - 11/04/2024 6:23 PM CDT EXAMINATION: Images For Reference Purposes Only us Nick Veliz MD IMG US PROCEDURES Final Result RAD_PACS_[facility] * Hepatitis C antibody Blood (06/22/2024 5:59 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) Hep C Ab Nonreactive Nonreactive Comment:Antibodies to HCV no t detected. Does NOT exclude the possibility of recent exposure to HCV. Current interpretive data was last revised on 21 Blood 06/22/2024 5:59 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 06/22/2024 6:19 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 us Clovis Villalpando MD LAB MICROBIOLOGY - GENERA L ORDERABLES Final Result Performing Organization Address City/[facility] Co de Phone Number [facility] [place] [address] * CT Chest Abdomen Pelvis W Contrast (06/21/2024 12:38 PM RECONDITIONING ASSOCIATE) Anatomical Region Laterality Modality Body N/A Computed Tomogra phy 06/21/2024 1:30 PM RECONDITIONING ASSOCIATE Impressions 06/21/2024 2:02 PM RECONDITIONING ASSOCIATE 1. No findings of acute trauma in [...] Pillai MD, PHD Narrative 06/21/2024 2:02 PM RECONDITIONING ASSOCIATE EXAMINATION: Computed tomography of the chest, abdomen [...] Most Recently Relevant to Health Maintenance [place] [address] [facility] MEDIC[facility] Advance Directives For more information, please contact: [phone] * Full Code (Latest Code Status on File) Date Activated Date Inactivated Comments 07/30/2024 5:08 PM 08/13/2024 12:58 AM * Full Code Date Activated Date Inactivated Comments 07/25/2024 3:21 AM 07/30/2024 5:08 PM * Full Code Date Activated Date Inactivated Comments 06/21/2024 3:36 PM 06/22/2024 5:14 PM Care Teams [employer] Docent Relationship Specialty Start Date End Date Juanito Woodward MD [address] [place] [address] PCP - General 08/10/16 Juanito Woodward MD [address] [place] [address] 08/10/16 Nick Veliz MD [address] [place] [address] Consulting Physician Cardiothoracic Surgery 08/12/24 Miscellaneous, Not In File 08/12/24
[2024-12-06 19:49] LABS: Alanine Aminotransferase 17 U/L (6-50); Albumin Level 3.5 g/dL (3.5-5.1); Alkaline Phosphatase 57 U/L (38-126); Anion Gap 8 mmol/L (4-12); Aspartate Amino Transferase 23 U/L (17-59); Bilirubin,Total 0.4 mg/dL (0.2-1.3); Blood Urea Nitrogen 27 mg/dL (9-20); Calcium 8.7 mg/dL (8.4-10.2); Carbon Dioxide 23 mmol/L (22-30); Chloride 100 mmol/L (98-107); Estimated CRCL calculation 52 ml/min; Estimated Glomerular Filt Rate 60; Glucose 160 mg/dL (65-110); Potassium 4.2 mmol/L (3.4-5.0); Sodium 131 mmol/L (137-145); Total Protein 6.6 g/dL (6.3-8.2)
[2024-12-06 20:00] LABS: INR 1.1; Prothrombin Time 14.5 Seconds (11.1-14.7)
[2024-12-06 20:01] LABS: Partial Thromboplastin Time 30.5 Seconds (22.3-36.8)
--- NOTE | 2024-12-06 20:08 | ED_ITS ---
HPI - GI Bleed General Chief complaint: GI Bleed <Tommy Mayorga APRN - Last Filed: 12/06/24 22:32> Stated complaint: chest pain <Tommy Mayorga APRN - Last Filed: 12/06/24 22:32> Time Seen by Provider: 12/06/24 19:15 <Tommy Mayorga APRN - Last Filed: 12/06/24 22:32> 74 y/o WM, PMH of aortic stenosis w/ valve repair, HTN, and Afib in the ED for c/o GI bleeding X4-5 days. Pt states he noted bloody stool starting on the 5th, was trying to monitor as he felt no symptoms. Pt states today he had a large bloody BM resulting in weakness and dizziness. Pt denies LOC, SOB, current weakness and dizziness. Pt denies being on blood thinners, save 81mg ASA daily. Pt denies any CP, SOB, N/V/D, abd pain, dizziness, CRUZ, vision issues. <Tommy Mayorga APRN - Last Filed: 12/06/24 22:32> Related Data Home medications: Home Medications ?Medication ?Instructions ?Recorded ?Confirmed ?Last Taken ?Type aspirin 81 mg chewable tablet 81 mg PO DAILY 08/13/24 12/06/24 12/06/24 History multivitamin-iron 9 mg-folic acid 1 tablet PO DAILY 08/13/24 12/06/24 12/06/24 History 400 mcg-calcium and minerals tablet (Thera-M) <Tommy Mayorga APRN - Last Filed: 12/06/24 22:32> Allergies/Adverse reactions: Allergies Allergy/AdvReac Type Severity Reaction Status Date / Time No Known Allergies Allergy Verified 12/06/24 22:02 <Tommy Mayorga APRN - Last Filed: 12/06/24 22:32> Review of Systems 2 Review of Systems: All systems reviewed & are unremarkable except as noted in HPI and below <Tommy Mayorga APRN - Last Filed: 12/06/24 22:32> [facility] Past Medical History Medical History: Medical History Alcohol use disorder Aortic valve, bicuspid Aortic stenosis, moderate PAF (paroxysmal atrial fibrillation) Vitamin D deficiency Umbilical hernia without obstruction and without gangrene Plantar fasciitis of right foot Overweight Hyponatremia Essential hypertension <Tommy Mayorga APRN - Last Filed: 12/06/24 22:32> Surgical History Surgical History: Surgical History History of open heart surgery <Tommy Mayorga APRN - Last Filed: 12/06/24 22:32> Family History Family History: Family History Sibling Family history of cardiovascular disease Other Alcohol use disorder <Tommy Mayorga APRN - Last Filed: 12/06/24 22:32> Social History Social History: Social History Smoking packs per day: 1 Smoking cigarettes per day: 20.0 Smoking status: Former smoker Tobacco type: cigarettes Smoking end date: 11/28/74 Alcohol intake: former Substance use: never Substance use type: does not use Last use: 07/21 Do You Feel Safe in your Home?: Yes Lack of Transportation: No Lack of Food: Never True Current Housing: I Have Housing Concerned About Future Housing: No Difficulty Paying Gas/Electric Bills: No Difficulty Paying for Meds: No Currently Unemployed: No Education: Master's Degree or Higher Difficulty w/ Childcare or Family Care: No Spiritual care concerns: No (judaism) <Tommy Mayorga APRN - Last Filed: 12/06/24 22:32> Exam 2 Narrative: GENERAL: Well-appearing, well-nourished, and in no acute distress. HEAD: Normocephalic, atraumatic. EYES: PERRLA and EOMI. ENT: Nares clear, no rhinorrhea or epistaxis. Mucous membranes moist. NECK: Supple. CHEST: Clear to auscultation. No respiratory distress. HEART: Regular rate and rhythm. No murmur heard. Normal peripheral pulses. ABDOMEN: Soft, nontender, nondistended, normal active bowel sounds. Rectal exam completed, no hemorrhoids or fissures found, maroon blood noted, positive guaiac. EXTREMITIES: Normal range of motion. No edema. SKIN: Warm, dry, no rash. NEURO: No focal deficits. Alert and oriented x3. PSYCH: Normal mood and affect. <Tommy Mayorga, EDWIN - Last Filed: 12/06/24 22:32> Course SOLUTION SPEC/PA Physician Supervision This visit was performed by both a physician and an APC. I performed all aspects of the MDM as documented. <Deven Lai MD - Last Filed: 12/07/24 04:12> Vital Signs Vital signs: Vital Signs Temperature 36.8 C 12/06/24 19:23 Pulse Rate 82 12/06/24 19:23 Respiratory Rate 18 12/06/24 19:23 Blood Pressure 124/56 L 12/06/24 19:23 Pulse Oximetry 98 12/06/24 19:23 Oxygen Delivery Room Air 12/06/24 19:23 Temperature 36.7 C 12/07/24 00:00 Pulse Rate 89 12/07/24 00:00 Respiratory Rate 18 12/07/24 00:00 Blood Pressure 137/59 L 12/07/24 00:00 Pulse Oximetry 100 12/07/24 00:00 Oxygen Delivery Room Air 12/06/24 19:38 <Tommy Mayorga, INCLUSION SPECIALIST - Last Filed: 12/06/24 22:32> Vital Signs Temperature 36.8 C 12/06/24 19:23 Pulse Rate 82 12/06/24 19:23 Respiratory Rate 18 12/06/24 19:23 Blood Pressure 124/56 L 12/06/24 19:23 Pulse Oximetry 98 12/06/24 19:23 Oxygen Delivery Room Air 12/06/24 19:23 Temperature 36.7 C 12/07/24 00:00 Pulse Rate 89 12/07/24 00:00 Respiratory Rate 18 12/07/24 00:00 Blood Pressure 137/59 L 12/07/24 00:00 Pulse Oximetry 100 12/07/24 00:00 Oxygen Delivery Room Air 12/06/24 19:38 <Deven Lai MD - Last Filed: 12/07/24 04:12> MDM - GI Bleed MDM Narrative Medical decision making narrative: 74 y/o WM, PMH of aortic stenosis w/ valve repair, HTN, and Afib in the ED for c/o GI bleeding X4-5 days. Pt states he noted bloody stool starting on the 5th, was trying to monitor as he felt no symptoms. Pt states today he had a large bloody BM resulting in weakness and dizziness. Pt denies LOC, SOB, current weakness and dizziness. Pt denies being on blood thinners, save 81mg ASA daily. Pt denies any CP, SOB, N/V/D, abd pain, dizziness, CRUZ, vision issues. My Plan Labs Ordered: CBC, CMP, PT/PTT, T&S, Guaiac Imaging Ordered: EKG Medications Ordered: PRBC X1 unit Results: Guaiac-positive Diagnosis: Risks: HEART score, PECARN score, CURB-65 score Consults: GI- Dr. Child; per GI suggested admission to medicine and GI f/u tomorrow. Requesting serial H&H and monitoring. Patient had positive guaiac, hemoglobin dropped from 8.8 in July to 7.4 this visit. With patient's description of dizziness and weakness, we will administer 1 unit of packed cells. GI contacted regarding patient, without additional orders for the emergency room, but requesting serial H&H and monitoring under admission to medicine. Ladonna garcia/ Dr Hummel, hospitalist on-call. Pt accepted for admit to tele floor. No additional orders at this time. <Tommy Mayorga APRN - Last Filed: 12/06/24 22:32> Differential Diagnosis Differential diagnosis: Likely hemorrhoids, Upper gastrointestinal hemorrhage, Lower gastrointestinal hemorrhage and hematochezia <Tommy Mayorga APRN - Last Filed: 12/06/24 22:32> Medical Records Attestation: I reviewed the patient's medical records. <Tommy Mayorga APRN - Last Filed: 12/06/24 22:32> Lab Data Attestation: I reviewed the patient's lab results. <Tommy Mayorga APRN - Last Filed: 12/06/24 22:32> Result diagrams: 12/06/24 19:34 12/06/24 19:34 <Tommy Mayorga APRN - Last Filed: 12/06/24 22:32> Labs: Lab Results 12/06/24 Range/Units 19:34 WBC 8.6 (4.5-10.0) K/mm3 RBC 2.53 L (4.6-6.20) M/mm3 Hgb 7.4 L (14.0-18.0) g/dL Hct 23.0 L (42.0-52.0) % MCV 90.9 (80-100) fl MCH 29.2 (26-34) pg MCHC 32.2 (32-36) g/dl RDW 14.3 (11.5-14.5) % Plt Count 201 (150-375) k/mm3 MPV 10.4 (7.4-10.4) fl Immature Gran % (Auto) 0.5 (0-0.5) % Neut % (Auto) 74.5 H (45.5-73.1) % Lymph % (Auto) 17.2 L (18.3-44.2) % Luna % (Auto) 6.7 (2.6-8.5) % Eos % (Auto) 0.9 (0-4.4) % Baso % (Auto) 0.2 (0.2-1.2) % Lymph # (Auto) 1.47 (0.9-3.2) K/mm3 Luna # (Auto) 0.6 (0.1-0.6) K/mm3 Eos # (Auto) 0.1 (0-0.3) K/mm3 Baso # (Auto) 0.0 (0.0-0.1) K/mm3 Abs Immat Gran (auto) 0.04 H (0.00-0.031) K/mm3 Absolute Neuts (auto) 6.4 (1.3-6.7) K/mm3 Absolute Nucleated RBC 0.000 (0.0-0.012) K/mm3 Nucleated RBC % 0.0 (0.0-0.2) % PT 14.5 (11.1-14.7) Seconds INR 1.1 APTT 30.5 (22.3-36.8) Seconds Sodium 131 L (137-145) mmol/L Potassium 4.2 (3.4-5.0) mmol/L Chloride 100 (98-107) mmol/L Carbon Dioxide 23 (22-30) mmol/L Anion Gap 8 (4-12) mmol/L BUN 27 H (9-20) mg/dL Creatinine 1.18 (0.7-1.3) mg/dL Estim Creat Clear Calc 52 ml/min Estimated GFR 60 (59 - ) Glucose 160 H (65-110) mg/dL Calcium 8.7 (8.4-10.2) mg/dL Total Bilirubin 0.4 (0.2-1.3) mg/dL AST 23 (17-59) U/L ALT 17 (6-50) U/L Alkaline Phosphatase 57 (38-126) U/L Total Protein 6.6 (6.3-8.2) g/dL Albumin 3.5 (3.5-5.1) g/dL Blood Type A Positive Antibody Screen Negative Crossmatch See Detail <Tommy Mayorga, INCLUSION SPECIALIST - Last Filed: 12/06/24 22:32> Lab Results 12/06/24 Range/Units 19:34 WBC 8.6 (4.5-10.0) K/mm3 RBC 2.53 L (4.6-6.20) M/mm3 Hgb 7.4 L (14.0-18.0) g/dL Hct 23.0 L (42.0-52.0) % MCV 90.9 (80-100) fl MCH 29.2 (26-34) pg MCHC 32.2 (32-36) g/dl RDW 14.3 (11.5-14.5) % Plt Count 201 (150-375) k/mm3 MPV 10.4 (7.4-10.4) fl Immature Gran % (Auto) 0.5 (0-0.5) % Neut % (Auto) 74.5 H (45.5-73.1) % Lymph % (Auto) 17.2 L (18.3-44.2) % Luna % (Auto) 6.7 (2.6-8.5) % Eos % (Auto) 0.9 (0-4.4) % Baso % (Auto) 0.2 (0.2-1.2) % Lymph # (Auto) 1.47 (0.9-3.2) K/mm3 Luna # (Auto) 0.6 (0.1-0.6) K/mm3 Eos # (Auto) 0.1 (0-0.3) K/mm3 Baso # (Auto) 0.0 (0.0-0.1) K/mm3 Abs Immat Gran (auto) 0.04 H (0.00-0.031) K/mm3 Absolute Neuts (auto) 6.4 (1.3-6.7) K/mm3 Absolute Nucleated RBC 0.000 (0.0-0.012) K/mm3 Nucleated RBC % 0.0 (0.0-0.2) % PT 14.5 (11.1-14.7) Seconds INR 1.1 APTT 30.5 (22.3-36.8) Seconds Sodium 131 L (137-145) mmol/L Potassium 4.2 (3.4-5.0) mmol/L Chloride 100 (98-107) mmol/L Carbon Dioxide 23 (22-30) mmol/L Anion Gap 8 (4-12) mmol/L BUN 27 H (9-20) mg/dL Creatinine 1.18 (0.7-1.3) mg/dL Estim Creat Clear Calc 52 ml/min Estimated GFR 60 (59 - ) Glucose 160 H (65-110) mg/dL Calcium 8.7 (8.4-10.2) mg/dL Total Bilirubin 0.4 (0.2-1.3) mg/dL AST 23 (17-59) U/L ALT 17 (6-50) U/L Alkaline Phosphatase 57 (38-126) U/L Total Protein 6.6 (6.3-8.2) g/dL Albumin 3.5 (3.5-5.1) g/dL Blood Type A Positive Antibody Screen Negative Crossmatch See Detail <Deven Lai MD - Last Filed: 12/07/24 04:12> ECG Data EKG #1: ECG completion date: 12/06/24 <Tommy Mayorga APRN - Last Filed: 12/06/24 22:32> ECG completion time: 20:28 <Tommy Mayorga APRN - Last Filed: 12/06/24 22:32> Prior ECG tracings: available for review <Tommy Mayorga APRN - Last Filed: 12/06/24 22:32> EKG Interpretation: normal rate, sinus rhythm, no ectopy, normal QRS, RBBB and normal QT <Tommy Mayorga APRN - Last Filed: 12/06/24 22:32> Discharge Plan Discharge Clinical Impression: GI (gastrointestinal bleed) Qualifiers: GI bleed type/associated pathology: unspecified gastrointestinal hemorrhage type Qualified Code(s): K92.2 - Gastrointestinal hemorrhage, unspecified <Tommy Mayorga APRN - Last Filed: 12/06/24 22:32> Patient Disposition: Still a Patient <Tommy Mayorga APRN - Last Filed: 12/06/24 22:32> Condition: Stable <Tommy Mayorga APRN - Last Filed: 12/06/24 22:32>
--- NOTE | 2024-12-06 20:10 | ECG_ITS ---
Test Date: 2024-12-06 20:28:07 Measurements Intervals [place] Rate: 77 P: 52 NC: 183 QRS: 66 QRSD: 106 T: -52 QT: 411 QTc: 467 Interpretive Statements SINUS RHYTHM INCOMPLETE RIGHT BUNDLE BRANCH BLOCK MINIMAL Q WAVES- INFERIOR LEADS T WAVE ABNORMALITY IN ANTERIOR LEADS- CONSIDER ISCHEMIA BASELINE ARTIFACT- II, III, AVF, V2-V3 ABNORMAL ECG Compared to ECG 07/24/2024 00:18:03 ATRIAL FIBRILLATION NO LONGER PRESENT Electronically Signed On 12-06-2024 20:30:35 CDT by Michael Soni D.O.
[2024-12-06 21:11] VITALS: BP 125/86; PULSE 89; RESP 18; TEMP 36.6; O2SAT 100
[2024-12-06 21:43] VITALS: BP 134/56; PULSE 82; RESP 18; TEMP 36.6; O2SAT 100
[2024-12-06] MEDS: SODIUM CHLORIDE 0.9% IV 250 ML 30 ML IV CONT (21:50)
[2024-12-06] MEDS: TUBING, BLOOD PLUM PUMP TUBING 1 EACH XX (21:50)
--- NOTE | 2024-12-06 21:55 | PM.IMHP ---
H&P: HPI History of Present Illness Date/Time: 12/06/24 21:55 Chief Complaint: GI bleeding Narrative: 73 y/o M presents here with shortness of breath with PMH of hypertension, aortic stenosis valve repair, hypertension, A.fib,chronic hyponatremia, and alcohol use disorder visited ER for possible GI bleed past 4-5 days. Patient reports 3-4 days ago noted bloody stool but but did not felt any symptoms including chest pain, shortness of breath or tightness. Unfortunately today patient had a large bloody bowel movement which resulted in weakness and dizziness and seek medical attention. Patient denies taking any NSAIDs or blood thinner other than aspirin. Patient hemoglobin is dropped from known hemoglobin 8.8 on 08/20/2024 to 7.4 today. Due to symptomatic anemia patient was transfused 1 unit PRBC in ED. ED physician discussed with compound filler who will perform possible endoscopy on Sunday. Patient will be continue to be monitored with H&H. Of note patient was transferred from [place] on 11/2024 for high aortic valve repair from [facility].Patient reports he quit alcohol last . Patient last colonoscopy was 10 years ago which was normal as per patient. Review of Systems Review of Systems: All systems reviewed & are unremarkable except as noted in HPI and below PMFSH Past Medical History Medical History Alcohol use disorder Aortic valve, bicuspid Aortic stenosis, moderate PAF (paroxysmal atrial fibrillation) Vitamin D deficiency Umbilical hernia without obstruction and without gangrene Plantar fasciitis of right foot Overweight Hyponatremia Essential hypertension Surgical History Surgical History History of open heart surgery Family History Family History Sibling Family history of cardiovascular disease Other Alcohol use disorder Social History Social History Smoking packs per day: 1 Smoking cigarettes per day: 20.0 Smoking status: Former smoker Tobacco type: cigarettes Smoking end date: 11/28/74 Alcohol intake: former Substance use: never Substance use type: does not use Last use: 07/21 Do You Feel Safe in your Home?: Yes Lack of Transportation: No Lack of Food: Never True Current Housing: I Have Housing Concerned About Future Housing: No Difficulty Paying Gas/Electric Bills: No Difficulty Paying for Meds: No Currently Unemployed: No Education: Master's Degree or Higher Difficulty w/ Childcare or Family Care: No Spiritual care concerns: No (gnosticism) Meds Home Medications and Allergies Home Medications ?Medication ?Instructions ?Recorded ?Confirmed ?Type aspirin 81 mg chewable tablet 81 mg PO DAILY 08/13/24 12/06/24 History multivitamin-iron 9 mg-folic acid 1 tablet PO DAILY 08/13/24 12/06/24 History 400 mcg-calcium and minerals tablet (Thera-M) thiamine HCl (vitamin B1) 100 mg 100 mg PO QAM #30 tabs 08/22/24 12/06/24 Rx tablet (Vitamin B-1) amiodarone 200 mg tablet 200 mg PO DAILY #90 tabs 09/16/24 12/06/24 Rx folic acid 1 mg tablet 1 mg PO DAILY #90 tabs 09/16/24 12/06/24 Rx tamsulosin 0.4 mg capsule 0.4 mg PO QPM #90 caps 09/16/24 12/06/24 Rx magnesium oxide 800 mg (2 x 400 mg magnesium) PO 09/23/24 12/06/24 Rx BID #360 caps spironolactone 25 mg tablet See Rx Instructions .Route 11/12/24 12/06/24 Rx .COMPLEX #45 tabs furosemide 40 mg tablet 20 mg (1/2 x 40 mg) PO DAILY #180 11/21/24 12/06/24 Rx tabs Allergies Allergy/AdvReac Type Severity Reaction Status Date / Time No Known Allergies Allergy Verified 12/06/24 22:02 Vital Signs Vital Signs - 24 hr 12/06/24 19:23 12/06/24 19:38 12/06/24 21:11 Temperature 98.3 F 97.8 F Pulse Rate 82 89 Respiratory Rate 18 18 Blood Pressure 124/56 L 125/86 Pulse Oximetry 98 100 Oxygen Delivery Room Air Room Air 12/06/24 21:43 Temperature 97.8 F Pulse Rate 82 Respiratory Rate 18 Blood Pressure 134/56 L Pulse Oximetry 100 Oxygen Delivery Exam Narrative: GENERAL: Well-appearing, well-nourished, and in no acute distress. HEAD: Normocephalic, atraumatic. EYES: PERRLA and EOMI. ENT: Nares clear, no rhinorrhea or epistaxis. Mucous membranes moist. NECK: Supple. CHEST: Clear to auscultation. No respiratory distress. HEART: Regular rate and rhythm. No murmur heard. Normal peripheral pulses. ABDOMEN: Soft, nontender, nondistended, normal active bowel sounds. Rectal exam completed, no hemorrhoids or fissures found, maroon blood noted, positive guaiac. EXTREMITIES: Normal range of motion. No edema. SKIN: Warm, dry, no rash. NEURO: No focal deficits. Alert and oriented x3. PSYCH: Normal mood and affect. H&P: Results Labs Labs: Short CBC 12/06/24 Range/Units 19:34 WBC 8.6 (4.5-10.0) K/mm3 Hgb 7.4 L (14.0-18.0) g/dL Hct 23.0 L (42.0-52.0) % Plt Count 201 (150-375) k/mm3 BMP 12/06/24 19:34 Sodium 131 L Potassium 4.2 Chloride 100 Carbon Dioxide 23 BUN 27 H Creatinine 1.18 Glucose 160 H Calcium 8.7 Liver Function 12/06/24 Range/Units 19:34 Total Bilirubin 0.4 (0.2-1.3) mg/dL AST 23 (17-59) U/L ALT 17 (6-50) U/L Alkaline Phosphatase 57 (38-126) U/L Albumin 3.5 (3.5-5.1) g/dL Assessment and Plan Assessment and plan (1) GI (gastrointestinal bleed): Qualifiers: GI bleed type/associated pathology: unspecified gastrointestinal hemorrhage type Qualified Code(s): K92.2 - Gastrointestinal hemorrhage, unspecified Code(s): K92.2 - Gastrointestinal hemorrhage, unspecified Status: Acute Assessment and Plan: PPI b.i.d. NPO Monitor H&H Transfuse blood if less than 7 No recent history of endoscopy/colonoscopy Home medication reveals use of aspirin No evidence of anticoagulant GI consulted and appreciate recommendations (2) Alcohol use disorder: Code(s): F10.90 - Alcohol use, unspecified, uncomplicated Status: Chronic Assessment and Plan: daily ETOH use: 4-5 beers, 1-2 glasses of wine, 1-2 glasses of scotch daily. no previous withdrawal symptoms with cessation CIWA protocol in place Ativan PRN seizure precautions start thiamine and folic acid p.o. (3) History of aortic valve replacement with bioprosthetic valve: Code(s): Z95.3 - Presence of xenogenic heart valve Status: Acute Assessment and Plan: -Continue ASA -continue Lasix 20 mg p.o. q.d. -continue spironolactone (4) Atrial fibrillation with rapid ventricular response: Code(s): I48.91 - Unspecified atrial fibrillation Status: Acute Assessment and Plan: Continue amiodarone Plan Code status: DNR DVT prophylaxis contraindicated due to GI bleed Hospitalist MIPS Advance Care Plan I have confirmed that the patient's Advanced Care Plan is present, code status is documented, or surrogate decision maker is listed in patient medical record.: Yes Medication Reconciliation I have utilized all available resources to obtain, update and review the patients current medications (includes all prescriptions, OTC, herbals, cannabis, and nutritional supplements).: Yes
[2024-12-06 22:05] VITALS: BP 116/50; PULSE 79; RESP 18; TEMP 36.7; O2SAT 99
[2024-12-06 22:59] VITALS: BP 123/53; PULSE 79; RESP 18; TEMP 36.7; O2SAT 100
[2024-12-06 23:28] VITALS: BMI 24.1
--- NOTE | 2024-12-06 23:53 | ADMGEN ---
This patient, Tommy Shah, was admitted to Medical Room 248-. Patient/family oriented to hospital policies and general routines including ID bracelet, bed and alarms, visiting hours, pain management, procedures, bathroom and other care routines, personal items, smoking policy, room service/diet, and visiting hours. Information on how to activate the Rapid Response Team has been discussed. Patient/Family are encouraged to report perceived risks to care and to ask questions if they do not understand what they are told or what they should do.
[2024-12-07] VITALS (11 sets, daily range): BP systolic 107–137; BP diastolic 44–59; PULSE 71–89; RESP 14–18; TEMP 36.6–37.1; O2SAT 94–100
[2024-12-07 05:27] LABS: Hematocrit 23.8 % (42.0-52.0); Hemoglobin 7.6 g/dL (14.0-18.0); Mean Corpuscular HGB Conc 31.9 g/dl (32-36); Mean Corpuscular Hemoglobin 28.9 pg (26-34); Mean Corpuscular Volume 90.5 fl (80-100); Platelet Count Result 172 k/mm3 (150-375); Red Blood Count 2.63 M/mm3 (4.6-6.20); White Blood Count 7.9 K/mm3 (4.5-10.0)
[2024-12-07 05:39] LABS: Alanine Aminotransferase 10 U/L (6-50); Albumin Level 3.3 g/dL (3.5-5.1); Alkaline Phosphatase 58 U/L (38-126); Anion Gap 6 mmol/L (4-12); Aspartate Amino Transferase 20 U/L (17-59); Bilirubin,Total 1.0 mg/dL (0.2-1.3); Blood Urea Nitrogen 21 mg/dL (9-20); Calcium 8.4 mg/dL (8.4-10.2); Carbon Dioxide 25 mmol/L (22-30); Chloride 99 mmol/L (98-107); Estimated CRCL calculation 61 ml/min; Estimated Glomerular Filt Rate > 60; Glucose 97 mg/dL (65-110); Potassium 3.8 mmol/L (3.4-5.0); Sodium 130 mmol/L (137-145); Total Protein 6.4 g/dL (6.3-8.2)
--- NOTE | 2024-12-07 07:15 | PM.IMPN ---
Progress Note: A&P Assessment and Plan (1) GI (gastrointestinal bleed): Qualifiers: GI bleed type/associated pathology: unspecified gastrointestinal hemorrhage type Qualified Code(s): K92.2 - Gastrointestinal hemorrhage, unspecified Code(s): K92.2 - Gastrointestinal hemorrhage, unspecified Status: Acute Assessment and Plan: Bloody BM ongoing since the 12/02, large bloody stool on 12/06 resulted in weakness and dizziness prompting patient to report to ED. Given symptomatic GI bleed and Hgb drop from 8.8 in July to 7.4 on admission, received 1 unit pRBC in the ED. Good response to pRBC, repeat Hgb 8.4. No recent history of endoscopy/colonoscopy Pantoprazole BID Diet: Clear liquid diet, NPO at midnight for colonoscopy DVT Px: SCDs No evidence of chronic anticoagulant use Monitor serum electrolytes, CBC, hemoglobin/hematocrit q.6 hours. If hemoglobin drops below 7 transfuse packed red blood cells Monitor for bloody bowel movements,chest pain,SOB or dizziness/lightheadedness GI consult Source of GI bleeding is colonic, with the most common differential diagnosis including diverticulosis, AVMs, or neoplasm. Since his last colonoscopy was between 10-15 years ago, will perform colonoscopy tomorrow afternoon. Patient still endorsing dark stools concerning for blood. (2) Alcohol use disorder: Code(s): F10.90 - Alcohol use, unspecified, uncomplicated Status: Chronic Assessment and Plan: Previous daily ETOH use, stopped drinking in July 2024. Denies recent relapse. no previous withdrawal symptoms with cessation CIWA protocol in place Ativan PRN seizure precautions start thiamine and folic acid p.o. (3) History of aortic valve replacement with bioprosthetic valve: Code(s): Z95.3 - Presence of xenogenic heart valve Status: Acute Assessment and Plan: Previously transferred from [place] to [facility] in July 2024 for AVR -Continue ASA -continue Lasix 20 mg p.o. q.d. -continue spironolactone (4) Atrial fibrillation with rapid ventricular response: Code(s): I48.91 - Unspecified atrial fibrillation Status: Acute Assessment and Plan: EKG: Sinus rhythm Continue amiodarone Time Spent With Patient Time with patient: 25 - 35 minutes Subjective Date/time seen: 12/07/24 07:15 Interval history: 73 year old male with past medical history of hypertension, aortic stenosis valve repair, hypertension, A.fib,chronic hyponatremia, and alcohol use disorder presents to the hospital with shortness of breath and concern for GI bleed. Patient denies taking any NSAIDs or blood thinner other than aspirin. Patient is pleasant sitting up comfortably in bed. He states that he had a small bowel movement this morning that was dark in concerning of blood. He notes that the dizziness/lightheadedness has completely resolved. Patient has no other complaints denying chest pain, shortness a breath, palpitations, nausea/vomiting, and abdominal pain. Patient was evaluated by GI who plans to perform a colonoscopy tomorrow. Review of Systems Review of Systems: All systems reviewed & are unremarkable except as noted in HPI and below Exam Narrative: AF HR 81 RR 18 SPO2 99 BP 119/59 General: male in no acute respiratory distress who is nontoxic appearing, lying semi recumbent in bed. HEENT: Normocephalic. Atraumatic. Extraocular movement intact. Sclera clear and anicteric. No facial asymmetry. Chest: Lungs are clear to auscultation bilaterally. No wheezes or crackles. CV: Heart was regular rate and rhythm. Abd: Abdomen was soft. Nontender. Nondistended. Positive bowel sounds. Ext: No clubbing, cyanosis, or edema. DP pulses bilaterally. Neuro: Patient is alert and oriented x4. Speech is clear. Objective Data Vital Signs Vital Signs: Vital Signs - 24 hr 12/06/24 19:23 12/06/24 19:38 12/06/24 21:11 Temperature 98.3 F 97.8 F Pulse Rate 82 89 Respiratory Rate 18 18 Blood Pressure 124/56 L 125/86 Pulse Oximetry 98 100 Oxygen Delivery Room Air Room Air 12/06/24 21:43 12/06/24 22:05 12/06/24 22:59 Temperature 97.8 F 98.1 F 98.1 F Pulse Rate 82 79 79 Respiratory Rate 18 18 18 Blood Pressure 134/56 L 116/50 L 123/53 L Pulse Oximetry 100 99 100 Oxygen Delivery 12/07/24 00:00 12/07/24 00:00 12/07/24 04:00 Temperature 98.1 F Pulse Rate 79 89 79 Respiratory Rate 18 Blood Pressure 137/59 L Pulse Oximetry 100 Oxygen Delivery 12/07/24 04:00 Temperature 97.9 F Pulse Rate 81 Respiratory Rate 18 Blood Pressure 119/59 L Pulse Oximetry 99 Oxygen Delivery Intake/Output Intake/Output: Intake & Output 12/04/24 12/05/24 12/06/24 12/07/24 23:59 23:59 23:59 23:59 Intake Total 600 50 Balance 600 50 Meds/Results Medications: Active Medications Generic Name Dose Route Start Last Admin Trade Name Freq PRN Reason Stop Dose Admin Amiodarone HCl 200 mg 12/07/24 08:00 Amiodarone Hcl 200 Mg Tablet PO DAILY@0800 [facility] Aspirin 81 mg 12/07/24 08:00 Aspirin 81 Mg Chewable Tablet PO DAILY@0800 [facility] Folic Acid 1 mg 12/07/24 09:00 Folic Acid 1 Mg Tablet PO DAILY [facility] Furosemide 20 mg 12/07/24 09:00 Furosemide 20 Mg Tablet PO DAILY [facility] Pantoprazole Sodium 40 mg 12/07/24 09:00 Pantoprazole Sodium Iv 40 Mg Vial IV PUSH Q12HR [facility] Spironolactone 12.5 mg 12/07/24 09:00 Spironolactone 12.5 Mg Tablet PO DAILY [facility] Tamsulosin HCl 0.4 mg 12/07/24 18:00 Tamsulosin Hcl 0.4 Mg Capsule PO QPM [facility] Thiamine HCl 100 mg 12/07/24 09:00 Thiamine Hcl 100 Mg Tablet PO QAM [facility] Labs Labs: Laboratory Results - last 24 hr 12/06/24 12/07/24 19:34 04:54 WBC 8.6 7.9 RBC 2.53 L 2.63 L Hgb 7.4 L 7.6 L Hct 23.0 L 23.8 L MCV 90.9 90.5 MCH 29.2 28.9 MCHC 32.2 31.9 L RDW 14.3 15.3 H Plt Count 201 172 MPV 10.4 10.5 H Immature Gran % (Auto) 0.5 Neut % (Auto) 74.5 H Lymph % (Auto) 17.2 L Gove % (Auto) 6.7 Eos % (Auto) 0.9 Baso % (Auto) 0.2 Lymph # (Auto) 1.47 Gove # (Auto) 0.6 Eos # (Auto) 0.1 Baso # (Auto) 0.0 Abs Immat Gran (auto) 0.04 H Absolute Neuts (auto) 6.4 Absolute Nucleated RBC 0.000 Nucleated RBC % 0.0 PT 14.5 INR 1.1 APTT 30.5 Sodium 131 L 130 L Potassium 4.2 3.8 Chloride 100 99 Carbon Dioxide 23 25 Anion Gap 8 6 BUN 27 H 21 H Creatinine 1.18 1.06 Estim Creat Clear Calc 52 61 Estimated GFR 60 > 60 Glucose 160 H 97 Calcium 8.7 8.4 Total Bilirubin 0.4 1.0 AST 23 20 ALT 17 10 Alkaline Phosphatase 57 58 Total Protein 6.6 6.4 Albumin 3.5 3.3 L Blood Type A Positive Antibody Screen Negative Crossmatch See Detail Quality VTE Prophylaxis VTE prophylaxis: mechanical ordered
[2024-12-07 08:25] LABS: Hematocrit 25.5 % (42.0-52.0); Hemoglobin 8.4 g/dL (14.0-18.0)
[2024-12-07] MEDS: FOLIC ACID 1 MG TABLET PO (09:30)
[2024-12-07] MEDS: ASPIRIN 81 MG CHEWABLE TABLET PO (09:30)
[2024-12-07] MEDS: AMIODARONE HCL 200 MG TABLET PO (09:30)
[2024-12-07] MEDS: FUROSEMIDE 20 MG TABLET PO (09:30)
[2024-12-07] MEDS: THIAMINE HCL 100 MG TABLET PO (09:30)
--- NOTE | 2024-12-07 10:43 | P.CONGI_ITS ---
Assessment and Plan Assessment and plan (1) GI (gastrointestinal bleed): Qualifiers: GI bleed type/associated pathology: unspecified gastrointestinal hemorrhage type Qualified Code(s): K92.2 - Gastrointestinal hemorrhage, unspecified Code(s): K92.2 - Gastrointestinal hemorrhage, unspecified Status: Acute Assessment and Plan: The patient's most likely source of GI bleeding is colonic, with the most common differential diagnosis including diverticulosis, AVMs, or neoplasm. Since his last colonoscopy was between 10-15 years ago, will perform colonoscopy tomorrow afternoon. Prep orders written. GI Consult Note Consult date/time: 12/07/24 10:43 Reason for consult: Rectal bleeding HPI: Tommy Shah is a 74 year old male with diagnosis of hypertension, aortic stenosis, atrial fibrillation, not on anticoagulation, presented with a 4-5 day history of lower GI bleeding. On the day of admission, the patient presented more frequent [place] stools associated with weakness and dizziness, deciding to come to the hospital. At admission he was hemodynamically stable with the following labs: White count 7.9, hemoglobin 7.6, hematocrit 23.8, platelets 172, INR 1.1, sodium 131, potassium 4.2, BUN 27, creatinine 1.19, albumin 3.3. This morning the patient passed 2 more bloody stools but remained hemodynamically stable. Review of Systems 2 Review of Systems: All systems reviewed & are unremarkable except as noted in HPI and below PMFSH Past Medical History Medical History Alcohol use disorder Aortic valve, bicuspid Aortic stenosis, moderate PAF (paroxysmal atrial fibrillation) Vitamin D deficiency Umbilical hernia without obstruction and without gangrene Plantar fasciitis of right foot Overweight Hyponatremia Essential hypertension Surgical History Surgical History History of open heart surgery Family History Family History Sibling Family history of cardiovascular disease Other Alcohol use disorder Social History Social History Smoking packs per day: 1 Smoking cigarettes per day: 20.0 Smoking status: Former smoker Tobacco type: cigarettes Smoking end date: 11/28/74 Alcohol intake: former Substance use: never Substance use type: does not use Last use: 07/21 Do You Feel Safe in your Home?: Yes Lack of Transportation: No Lack of Food: Never True Current Housing: I Have Housing Concerned About Future Housing: No Difficulty Paying Gas/Electric Bills: No Difficulty Paying for Meds: No Currently Unemployed: No Education: Master's Degree or Higher Difficulty w/ Childcare or Family Care: No Spiritual care concerns: No (uatsdin) Meds Home Medications and Allergies Home Medications ?Medication ?Instructions ?Recorded ?Confirmed ?Type aspirin 81 mg chewable tablet 81 mg PO DAILY 08/13/24 12/06/24 History multivitamin-iron 9 mg-folic acid 1 tablet PO DAILY 08/13/24 12/06/24 History 400 mcg-calcium and minerals tablet (Thera-M) thiamine HCl (vitamin B1) 100 mg 100 mg PO QAM #30 tabs 08/22/24 12/06/24 Rx tablet (Vitamin B-1) amiodarone 200 mg tablet 200 mg PO DAILY #90 tabs 09/16/24 12/06/24 Rx folic acid 1 mg tablet 1 mg PO DAILY #90 tabs 09/16/24 12/06/24 Rx tamsulosin 0.4 mg capsule 0.4 mg PO QPM #90 caps 09/16/24 12/06/24 Rx magnesium oxide 800 mg (2 x 400 mg magnesium) PO 09/23/24 12/06/24 Rx BID #360 caps spironolactone 25 mg tablet See Rx Instructions .Route 11/12/24 12/06/24 Rx .COMPLEX #45 tabs furosemide 40 mg tablet 20 mg (1/2 x 40 mg) PO DAILY #180 11/21/24 12/06/24 Rx tabs Allergies Allergy/AdvReac Type Severity Reaction Status Date / Time No Known Allergies Allergy Verified 12/06/24 22:02 Vital Signs Vital Signs - 24 hr 12/06/24 19:23 12/06/24 19:38 12/06/24 21:11 Temperature 98.3 F 97.8 F Pulse Rate 82 89 Respiratory Rate 18 18 Blood Pressure 124/56 L 125/86 Pulse Oximetry 98 100 Oxygen Delivery Room Air Room Air 12/06/24 21:43 12/06/24 22:05 12/06/24 22:59 Temperature 97.8 F 98.1 F 98.1 F Pulse Rate 82 79 79 Respiratory Rate 18 18 18 Blood Pressure 134/56 L 116/50 L 123/53 L Pulse Oximetry 100 99 100 Oxygen Delivery 12/07/24 00:00 12/07/24 00:00 12/07/24 04:00 Temperature 98.1 F Pulse Rate 79 89 79 Respiratory Rate 18 Blood Pressure 137/59 L Pulse Oximetry 100 Oxygen Delivery 12/07/24 04:00 12/07/24 09:30 Temperature 97.9 F Pulse Rate 81 81 Respiratory Rate 18 Blood Pressure 119/59 L Pulse Oximetry 99 Oxygen Delivery Exam 2 Narrative: AF General: well nourished, well-developed male in no acute respiratory distress who is nontoxic appearing, lying semi recumbent in bed. HEENT: Normocephalic. Atraumatic. Pupils equal round reactive to light. Extraocular movement intact. Sclera clear and anicteric. Nares patent. No oral lesions. Moist mucous membranes. Tongue is midline. Palate zulma symmetrically. No facial asymmetry. Neck: Neck was supple. No dominant adenopathy, thyromegaly or masses. 2+ carotid upstrokes without bruits. Chest: Lungs are clear to auscultation bilaterlly. No wheezes or crackles. CV: Heart was regular rate and rhythm. S1/S2. No murmurs, gallops, or rubs. Abd: Abdomen was soft. Nontender. Nondistended. Postive bowel sounds. No organomegaly or masses. Ext: No clubbing, cyanosis, or edema. 2+ DP pulses bilaterally. Neuro: Patient is alert and oriented x4. Strenth is 5/5 in both upper and lower extremities. Cranial nerves 2-12 are intact. Speech is clear. Psych: Normal nood and affect. Patient is pleasant and cooperative. Skin: Warm and dry. No rashes noted. Results Labs 12/07/24 07:52 12/07/24 04:54 Labs: Short CBC 12/06/24 12/07/24 12/07/24 Range/Units 19:34 04:54 07:52 WBC 8.6 7.9 (4.5-10.0) K/mm3 Hgb 7.4 L 7.6 L 8.4 L (14.0-18.0) g/dL Hct 23.0 L 23.8 L 25.5 L (42.0-52.0) % Plt Count 201 172 (150-375) k/mm3 BMP 12/06/24 12/07/24 19:34 04:54 Sodium 131 L 130 L Potassium 4.2 3.8 Chloride 100 99 Carbon Dioxide 23 25 BUN 27 H 21 H Creatinine 1.18 1.06 Glucose 160 H 97 Calcium 8.7 8.4 Liver Function 12/06/24 12/07/24 Range/Units 19:34 04:54 Total Bilirubin 0.4 1.0 (0.2-1.3) mg/dL AST 23 20 (17-59) U/L ALT 17 10 (6-50) U/L Alkaline Phosphatase 57 58 (38-126) U/L Albumin 3.5 3.3 L (3.5-5.1) g/dL
[2024-12-07 13:14] LABS: Hematocrit 23.3 % (42.0-52.0); Hemoglobin 7.6 g/dL (14.0-18.0)
[2024-12-07] MEDS: TAMSULOSIN HCL 0.4 MG CAPSULE PO (17:18)
[2024-12-07 20:20] LABS: Hematocrit 21.8 % (42.0-52.0); Hemoglobin 7.2 g/dL (14.0-18.0)
[2024-12-08] VITALS (14 sets, daily range): BP systolic 87–145; BP diastolic 30–65; PULSE 67–90; RESP 16–21; TEMP 36.3–36.9; O2SAT 98–100
[2024-12-08 05:18] LABS: Hematocrit 22.7 % (42.0-52.0); Hemoglobin 7.4 g/dL (14.0-18.0); Mean Corpuscular HGB Conc 32.6 g/dl (32-36); Mean Corpuscular Hemoglobin 29.5 pg (26-34); Mean Corpuscular Volume 90.4 fl (80-100); Platelet Count Result 180 k/mm3 (150-375); Red Blood Count 2.51 M/mm3 (4.6-6.20); White Blood Count 7.6 K/mm3 (4.5-10.0)
[2024-12-08 05:46] LABS: Alanine Aminotransferase 10 U/L (6-50); Albumin Level 3.2 g/dL (3.5-5.1); Alkaline Phosphatase 57 U/L (38-126); Anion Gap 3 mmol/L (4-12); Aspartate Amino Transferase 18 U/L (17-59); Bilirubin,Total 0.5 mg/dL (0.2-1.3); Blood Urea Nitrogen 12 mg/dL (9-20); Calcium 8.6 mg/dL (8.4-10.2); Carbon Dioxide 27 mmol/L (22-30); Chloride 103 mmol/L (98-107); Estimated CRCL calculation 66 ml/min; Estimated Glomerular Filt Rate > 60; Glucose 107 mg/dL (65-110); Potassium 4.3 mmol/L (3.4-5.0); Sodium 133 mmol/L (137-145); Total Protein 6.3 g/dL (6.3-8.2)
--- NOTE | 2024-12-08 06:58 | PM.IMPN ---
Progress Note: A&P Assessment and Plan (1) GI (gastrointestinal bleed): Qualifiers: GI bleed type/associated pathology: unspecified gastrointestinal hemorrhage type Qualified Code(s): K92.2 - Gastrointestinal hemorrhage, unspecified Code(s): K92.2 - Gastrointestinal hemorrhage, unspecified Status: Acute Assessment and Plan: Bloody BM ongoing since the 12/02, large bloody stool on 12/06 resulted in weakness and dizziness prompting patient to report to ED. Given symptomatic GI bleed and Hgb drop from 8.8 in July to 7.4 on admission, received 1 unit pRBC in the ED. Good response to pRBC, repeat Hgb 8.4. No recent history of endoscopy/colonoscopy Pantoprazole BID Diet: NPO for colonoscopy DVT Px: SCDs No evidence of chronic anticoagulant use Monitor serum electrolytes, CBC, hemoglobin/hematocrit q.6 hours. If hemoglobin drops below 7 transfuse packed red blood cells Monitor for bloody bowel movements,chest pain,SOB or dizziness/lightheadedness GI consult Source of GI bleeding is colonic, with the most common differential diagnosis including diverticulosis, AVMs, or neoplasm. Continues to endorse dark stools but states improving since starting bowel prep. Plan for colonoscopy today. Remains asymptomatic denying chest pain, shortness of breath, dizziness/lightheadedness H/H remains stable. Continue to monitor. (2) Alcohol use disorder: Code(s): F10.90 - Alcohol use, unspecified, uncomplicated Status: Chronic Assessment and Plan: Previous daily ETOH use, stopped drinking in July 2024. Denies recent relapse. no previous withdrawal symptoms with cessation CIWA protocol in place CIWA score throughout admission has been 0 Ativan PRN seizure precautions start thiamine and folic acid p.o. (3) History of aortic valve replacement with bioprosthetic valve: Code(s): Z95.3 - Presence of xenogenic heart valve Status: Acute Assessment and Plan: Previously transferred from [place] to [facility] in July 2024 for AVR -Continue ASA -continue Lasix 20 mg p.o. q.d. -continue spironolactone (4) Atrial fibrillation with rapid ventricular response: Code(s): I48.91 - Unspecified atrial fibrillation Status: Acute Assessment and Plan: EKG: Sinus rhythm Continue amiodarone Time Spent With Patient Time with patient: 25 - 35 minutes Subjective Date/time seen: 12/08/24 06:58 Interval history: 73 year old male with past medical history of hypertension, aortic stenosis valve repair, hypertension, A.fib,chronic hyponatremia, and alcohol use disorder presents to the hospital with shortness of breath and concern for GI bleed. Patient denies taking any NSAIDs or blood thinner other than aspirin. Patient is pleasant sitting up comfortably in bed. He continues to endorse dark stools but states improving since starting bowel prep. Plan for colonoscopy today. He has no other complaints denying chest pain, palpitations, shortness of breath, nausea/vomiting, abdominal pain, and dizziness/lightheadedness. Review of Systems Review of Systems: All systems reviewed & are unremarkable except as noted in HPI and below Exam Narrative: AF HR 72 RR 18 Spo2 100 BP 122/51 General: male in no acute respiratory distress who is nontoxic appearing, sitting up in bed. HEENT: Normocephalic. Atraumatic. Extraocular movement intact. Sclera clear and anicteric. No facial asymmetry. Chest: Lungs are clear to auscultation bilaterally. No wheezes or crackles. CV: Heart was regular rate and rhythm. Abd: Abdomen was soft. Nontender. Nondistended. Positive bowel sounds. Ext: No clubbing, cyanosis, or edema. DP pulses bilaterally. Neuro: Patient is alert and oriented x3. Speech is clear. Objective Data Vital Signs Vital Signs: Vital Signs - 24 hr 12/07/24 08:00 12/07/24 09:30 12/07/24 09:30 Temperature Pulse Rate 77 81 Respiratory Rate Blood Pressure Pulse Oximetry Oxygen Delivery Room Air 12/07/24 12:00 12/07/24 12:02 12/07/24 13:57 Temperature 98.1 F Pulse Rate 83 76 Respiratory Rate 14 Blood Pressure 107/44 L Pulse Oximetry 94 100 Oxygen Delivery Room Air 12/07/24 16:00 12/07/24 19:50 12/07/24 20:00 Temperature 98.8 F Pulse Rate 71 77 75 Respiratory Rate 16 Blood Pressure 122/59 L Pulse Oximetry 99 Oxygen Delivery 12/07/24 23:11 12/08/24 00:00 12/08/24 04:00 Temperature Pulse Rate 73 76 Respiratory Rate Blood Pressure Pulse Oximetry 98 Oxygen Delivery Room Air 12/08/24 04:58 Temperature 98.4 F Pulse Rate 73 Respiratory Rate 18 Blood Pressure 122/51 L Pulse Oximetry 100 Oxygen Delivery Intake/Output Intake/Output: Intake & Output 12/05/24 12/06/24 12/07/24 12/08/24 23:59 23:59 23:59 23:59 Intake Total 600 2620 250 Balance 600 2620 250 Meds/Results Medications: Active Medications Generic Name Dose Route Start Last Admin Trade Name Freq PRN Reason Stop Dose Admin Amiodarone HCl 200 mg 12/07/24 08:00 12/07/24 09:30 Amiodarone Hcl 200 Mg Tablet PO 200 mg DAILY@0800 [facility] Administration Aspirin 81 mg 12/07/24 08:00 12/07/24 09:30 Aspirin 81 Mg Chewable Tablet PO 81 mg DAILY@0800 MARK Administration Folic Acid 1 mg 12/07/24 09:00 12/07/24 09:30 Folic Acid 1 Mg Tablet PO 1 mg DAILY MARK Administration Furosemide 20 mg 12/07/24 09:00 12/07/24 09:30 Furosemide 20 Mg Tablet PO 20 mg DAILY MARK Administration Lorazepam 2 mg 12/07/24 07:46 Lorazepam (*Crx) 1 Mg Tablet PO Q2H PRN CIWA>8, HR>100, or DBP>100 Spironolactone 12.5 mg 12/07/24 09:00 12/07/24 09:30 Spironolactone 12.5 Mg Tablet PO 12.5 mg DAILY MARK Administration Tamsulosin HCl 0.4 mg 12/07/24 18:00 12/07/24 17:18 Tamsulosin Hcl 0.4 Mg Capsule PO 0.4 mg QPM MARK Administration Thiamine HCl 100 mg 12/07/24 09:00 12/07/24 09:30 Thiamine Hcl 100 Mg Tablet PO 100 mg QAM MARK Administration Labs Labs: Laboratory Results - last 24 hr 12/07/24 12/07/24 12/07/24 07:52 11:45 13:05 WBC RBC Hgb 8.4 L 7.6 L Hct 25.5 L 23.3 L MCV MCH MCHC RDW Plt Count MPV Sodium Potassium Chloride Carbon Dioxide Anion Gap BUN Creatinine Estim Creat Clear Calc Estimated GFR Glucose POC Capillary Glucose 109 H Calcium Total Bilirubin AST ALT Alkaline Phosphatase Total Protein Albumin 12/07/24 12/07/24 12/08/24 16:37 20:14 04:51 WBC 7.6 RBC 2.51 L Hgb 7.2 L 7.4 L Hct 21.8 L 22.7 L MCV 90.4 MCH 29.5 MCHC 32.6 RDW 15.2 H Plt Count 180 MPV 10.7 H Sodium 133 L Potassium 4.3 Chloride 103 Carbon Dioxide 27 Anion Gap 3 L BUN 12 D Creatinine 0.98 Estim Creat Clear Calc 66 Estimated GFR > 60 Glucose 107 POC Capillary Glucose 84 Calcium 8.6 Total Bilirubin 0.5 AST 18 ALT 10 Alkaline Phosphatase 57 Total Protein 6.3 Albumin 3.2 L 12/08/24 05:01 WBC RBC Hgb Hct MCV MCH MCHC RDW Plt Count MPV Sodium Potassium Chloride Carbon Dioxide Anion Gap BUN Creatinine Estim Creat Clear Calc Estimated GFR Glucose POC Capillary Glucose 106 H Calcium Total Bilirubin AST ALT Alkaline Phosphatase Total Protein Albumin Quality VTE Prophylaxis VTE prophylaxis: mechanical ordered
[2024-12-08] MEDS: THIAMINE HCL 100 MG TABLET PO (10:12)
[2024-12-08] MEDS: ASPIRIN 81 MG CHEWABLE TABLET PO (10:12)
[2024-12-08] MEDS: FOLIC ACID 1 MG TABLET PO (10:12)
[2024-12-08] MEDS: AMIODARONE HCL 200 MG TABLET PO (10:12)
[2024-12-08] MEDS: FUROSEMIDE 20 MG TABLET PO (10:12)
[2024-12-08 11:10] LABS: Hematocrit 25.0 % (42.0-52.0); Hemoglobin 7.9 g/dL (14.0-18.0)
[2024-12-08] MEDS: LACTATED RINGERS 1,000 ML 150 ML IV CONT (15:30)
--- NOTE | 2024-12-08 15:48 | SUR.PREOP ---
Dr. Child notified of patient having a valve replacement in July 2024. No antibiotics ordered per Dr. Child request
--- NOTE | 2024-12-08 16:03 | P.PNAN_ITS ---
Anes - Initial Pre Proc Eval Procedure: Operation Date: 12/08/24 15:00 Proposed Procedures p Diagnostic Colonoscopy - Jose Enrique Child MD Date/Time: 12/08/24 16:03 Surgeon: Raul Hummel MD Pre Op Diagnosis: GI Bleed Patient Data Age: 74 Gender: M Height: 1.85 m Weight: 83 kg Last Vital Signs Temp 36.4 C 12/08/24 14:44 Pulse 74 12/08/24 14:44 Resp 18 12/08/24 14:44 BP 145/65 H 12/08/24 14:44 Pulse Ox 100 12/08/24 14:44 O2 Del Method Room Air 12/08/24 14:44 Allergies Allergy/AdvReac Type Severity Reaction Status Date / Time No Known Allergies Allergy Verified 12/06/24 22:02 Home Medications ?Medication ?Instructions ?Recorded ?Confirmed ?Type aspirin 81 mg chewable tablet 81 mg PO DAILY 08/13/24 12/06/24 History multivitamin-iron 9 mg-folic acid 1 tablet PO DAILY 08/13/24 12/06/24 History 400 mcg-calcium and minerals tablet (Thera-M) thiamine HCl (vitamin B1) 100 mg 100 mg PO QAM #30 tabs 08/22/24 12/06/24 Rx tablet (Vitamin B-1) amiodarone 200 mg tablet 200 mg PO DAILY #90 tabs 09/16/24 12/06/24 Rx folic acid 1 mg tablet 1 mg PO DAILY #90 tabs 09/16/24 12/06/24 Rx tamsulosin 0.4 mg capsule 0.4 mg PO QPM #90 caps 09/16/24 12/06/24 Rx magnesium oxide 800 mg (2 x 400 mg magnesium) PO 09/23/24 12/06/24 Rx BID #360 caps spironolactone 25 mg tablet See Rx Instructions .Route 11/12/24 12/06/24 Rx .COMPLEX #45 tabs furosemide 40 mg tablet 20 mg (1/2 x 40 mg) PO DAILY #180 11/21/24 12/06/24 Rx tabs Laboratory Tests 12/07/24 12/07/24 12/08/24 16:37 20:14 04:51 WBC 7.6 K/mm3 (4.5-10.0) RBC 2.51 L M/mm3 (4.6-6.20) Hgb 7.2 L g/dL 7.4 L g/dL (14.0-18.0) (14.0-18.0) Hct 21.8 L % 22.7 L % (42.0-52.0) (42.0-52.0) MCV 90.4 fl (80-100) MCH 29.5 pg (26-34) MCHC 32.6 g/dl (32-36) RDW 15.2 H % (11.5-14.5) Plt Count 180 k/mm3 (150-375) MPV 10.7 H fl (7.4-10.4) Sodium 133 L mmol/L (137-145) Potassium 4.3 mmol/L (3.4-5.0) Chloride 103 mmol/L (98-107) Carbon Dioxide 27 mmol/L (22-30) Anion Gap 3 L mmol/L (4-12) BUN 12 D mg/dL (9-20) Creatinine 0.98 mg/dL (0.7-1.3) Estim Creat Clear Calc 66 ml/min Estimated GFR > 60 (59 - ) Glucose 107 mg/dL (65-110) POC Capillary Glucose 84 mg/dl (65-105) Calcium 8.6 mg/dL (8.4-10.2) Total Bilirubin 0.5 mg/dL (0.2-1.3) AST 18 U/L (17-59) ALT 10 U/L (6-50) Alkaline Phosphatase 57 U/L (38-126) Total Protein 6.3 g/dL (6.3-8.2) Albumin 3.2 L g/dL (3.5-5.1) 12/08/24 12/08/24 12/08/24 05:01 11:04 11:48 WBC RBC Hgb 7.9 L g/dL (14.0-18.0) Hct 25.0 L % (42.0-52.0) MCV MCH MCHC RDW Plt Count MPV Sodium Potassium Chloride Carbon Dioxide Anion Gap BUN Creatinine Estim Creat Clear Calc Estimated GFR Glucose POC Capillary Glucose 106 H mg/dl 135 H mg/dl (65-105) (65-105) Calcium Total Bilirubin AST ALT Alkaline Phosphatase Total Protein Albumin Patient hx anesthesia problems: none Family hx anesthesia problems: none Results Review: All pre-operative results and documents have been reviewed as part of the pre- operative evaluation. [facility] Past Medical History Medical History Alcohol use disorder Aortic valve, bicuspid Aortic stenosis, moderate PAF (paroxysmal atrial fibrillation) Vitamin D deficiency Umbilical hernia without obstruction and without gangrene Plantar fasciitis of right foot Overweight Hyponatremia Essential hypertension Surgical History Surgical History History of open heart surgery Family History Family History Sibling Family history of cardiovascular disease Other Alcohol use disorder Social History Social History Smoking packs per day: 1 Smoking cigarettes per day: 20.0 Smoking status: Former smoker Tobacco type: cigarettes Smoking end date: 11/28/74 Alcohol intake: former Substance use: never Substance use type: does not use Last use: 07/21 Do You Feel Safe in your Home?: Yes Lack of Transportation: No Lack of Food: Never True Current Housing: I Have Housing Concerned About Future Housing: No Difficulty Paying Gas/Electric Bills: No Difficulty Paying for Meds: No Currently Unemployed: No Education: Master's Degree or Higher Difficulty w/ Childcare or Family Care: No Spiritual care concerns: No (yazidi) Anes - Eval Final PreProcedure Day of Procedure 12/08/24 16:03 Patient weight: normal Heart: regular rate and rhythm Lungs: clear to auscultation and normal air movement Airway: Mallampati scale class II Neurological: alert and oriented Last oral intake: >/= 8 hours ASA classification: III Emergent: no Anesthetic plan: proceed Anesthesia type and monitoring: general GIVS and standard monitoring Results Review: All pre-operative results and documents have been reviewed as part of the pre- operative evaluation. Informed Consent: The patient's anesthetic plan and its attendant risks and benefits were discussed with the patient/family/POA. Questions were solicited and answers provided to the satisfaction of the patient/family/POA.
--- NOTE | 2024-12-08 16:32 | S_PTH ---
PATIENT: Tommy Shah LOC: [id number] U#:[id number] AGE/SX: 74/M ROOM: 248 RE12/07/[address]: Samantha Wise PA-C : 1950 BED: 01 DIS: 12/09/2024 SPEC #: [id number] RECD: 12/09/24 07:37 STATUS: FER[place] #: [id number] ASHLEY: 12/08/24 16:[address]: Jose Enrique Child DEPT: [facility] RECD BY: Duong Schultz ENTERED: 12/09/24 07:37 SP TYPE: Surgical OTHR DR: MD Juanito Smith MD Izabella L. Timmons, PA-C Tissues: A - Colon Polypectomy B - Colon Polypectomy Procedures: Hematoxylin and Eosin Stain Gross and Microscopic Level 4
--- NOTE | 2024-12-08 16:36 | P.PNGI_ITS ---
Progress Note: A&P Assessment and Plan (1) GI (gastrointestinal bleed): Qualifiers: GI bleed type/associated pathology: unspecified gastrointestinal hemorrhage type Qualified Code(s): K92.2 - Gastrointestinal hemorrhage, unspecified Code(s): K92.2 - Gastrointestinal hemorrhage, unspecified Status: Acute Assessment and Plan: See colonoscopy report. Multiple diverticula and large hemorrhoids, this could have been the source of his bleeding which is now resolved and self- limited. The patient can be discharged home, on a high-fiber diet, and if bleeding recurs, he should have his hemorrhoids evaluated by surgery. Subjective Date/time seen: 12/08/24 16:36 Objective Data Vital Signs Vital Signs: Vital Signs - 24 hr 12/07/24 19:50 12/07/24 20:00 12/07/24 23:11 Temperature 98.8 F Pulse Rate 77 75 Respiratory Rate 16 Blood Pressure 122/59 L Pulse Oximetry 99 98 Oxygen Delivery Room Air 12/08/24 00:00 12/08/24 04:00 12/08/24 04:58 Temperature 98.4 F Pulse Rate 73 76 73 Respiratory Rate 18 Blood Pressure 122/51 L Pulse Oximetry 100 Oxygen Delivery 12/08/24 08:00 12/08/24 10:12 12/08/24 10:15 Temperature Pulse Rate 71 72 Respiratory Rate Blood Pressure Pulse Oximetry Oxygen Delivery Room Air 12/08/24 12:00 12/08/24 14:26 12/08/24 14:44 Temperature 97.7 F 97.6 F Pulse Rate 74 72 74 Respiratory Rate 18 18 Blood Pressure 128/58 L 145/65 H Pulse Oximetry 98 100 Oxygen Delivery Room Air Intake/Output Intake/Output: Intake & Output 12/05/24 12/06/24 12/07/24 12/08/24 23:59 23:59 23:59 23:59 Intake Total 600 2620 250 Balance 600 2620 250 Meds/Results Medications: Active Medications Generic Name Dose Route Start Last Admin Trade Name Freq PRN Reason Stop Dose Admin Amiodarone HCl 200 mg 12/07/24 08:00 12/08/24 10:12 Amiodarone Hcl 200 Mg Tablet PO 200 mg DAILY@0800 [facility] Administration Aspirin 81 mg 12/07/24 08:00 12/08/24 10:12 Aspirin 81 Mg Chewable Tablet PO 81 mg DAILY@0800 MARK Administration Folic Acid 1 mg 12/07/24 09:00 12/08/24 10:12 Folic Acid 1 Mg Tablet PO 1 mg DAILY MARK Administration Furosemide 20 mg 12/07/24 09:00 12/08/24 10:12 Furosemide 20 Mg Tablet PO 20 mg DAILY MARK Administration Lactated Ringer's 1,000 mls @ 150 mls/hr 12/08/24 14:45 Lr - Lactated Ringers Iv IV CONT .Q6H40M [facility] Lorazepam 2 mg 12/07/24 07:46 Lorazepam (*Crx) 1 Mg Tablet PO Q2H PRN CIWA>8, HR>100, or DBP>100 Spironolactone 12.5 mg 12/07/24 09:00 12/08/24 10:12 Spironolactone 12.5 Mg Tablet PO 12.5 mg DAILY MARK Administration Tamsulosin HCl 0.4 mg 12/07/24 18:00 12/07/24 17:18 Tamsulosin Hcl 0.4 Mg Capsule PO 0.4 mg QPM MARK Administration Thiamine HCl 100 mg 12/07/24 09:00 12/08/24 10:12 Thiamine Hcl 100 Mg Tablet PO 100 mg QAM MARK Administration Labs Labs: Laboratory Results - last 24 hr 12/07/24 12/07/24 12/08/24 16:37 20:14 04:51 WBC 7.6 RBC 2.51 L Hgb 7.2 L 7.4 L Hct 21.8 L 22.7 L MCV 90.4 MCH 29.5 MCHC 32.6 RDW 15.2 H Plt Count 180 MPV 10.7 H Sodium 133 L Potassium 4.3 Chloride 103 Carbon Dioxide 27 Anion Gap 3 L BUN 12 D Creatinine 0.98 Estim Creat Clear Calc 66 Estimated GFR > 60 Glucose 107 POC Capillary Glucose 84 Calcium 8.6 Total Bilirubin 0.5 AST 18 ALT 10 Alkaline Phosphatase 57 Total Protein 6.3 Albumin 3.2 L 12/08/24 12/08/24 12/08/24 05:01 11:04 11:48 WBC RBC Hgb 7.9 L Hct 25.0 L MCV MCH MCHC RDW Plt Count MPV Sodium Potassium Chloride Carbon Dioxide Anion Gap BUN Creatinine Estim Creat Clear Calc Estimated GFR Glucose POC Capillary Glucose 106 H 135 H Calcium Total Bilirubin AST ALT Alkaline Phosphatase Total Protein Albumin
[2024-12-08] MEDS: TAMSULOSIN HCL 0.4 MG CAPSULE PO (17:20)
[2024-12-09] VITALS (7 sets, daily range): BP systolic 111–126; BP diastolic 55–79; PULSE 71–97; RESP 16–18; TEMP 36.6–36.9; O2SAT 64–98
[2024-12-09 05:21] LABS: Hematocrit 23.4 % (42.0-52.0); Hemoglobin 7.3 g/dL (14.0-18.0); Mean Corpuscular HGB Conc 31.2 g/dl (32-36); Mean Corpuscular Hemoglobin 28.5 pg (26-34); Mean Corpuscular Volume 91.4 fl (80-100); Platelet Count Result 176 k/mm3 (150-375); Red Blood Count 2.56 M/mm3 (4.6-6.20); White Blood Count 6.3 K/mm3 (4.5-10.0)
[2024-12-09 05:48] LABS: Alanine Aminotransferase 11 U/L (6-50); Albumin Level 3.1 g/dL (3.5-5.1); Alkaline Phosphatase 61 U/L (38-126); Anion Gap 4 mmol/L (4-12); Aspartate Amino Transferase 24 U/L (17-59); Bilirubin,Total 0.6 mg/dL (0.2-1.3); Blood Urea Nitrogen 7 mg/dL (9-20); Calcium 8.6 mg/dL (8.4-10.2); Carbon Dioxide 26 mmol/L (22-30); Chloride 103 mmol/L (98-107); Estimated CRCL calculation 69 ml/min; Estimated Glomerular Filt Rate > 60; Glucose 104 mg/dL (65-110); Potassium 4.2 mmol/L (3.4-5.0); Sodium 133 mmol/L (137-145); Total Protein 6.2 g/dL (6.3-8.2)
[2024-12-09] MEDS: FOLIC ACID 1 MG TABLET PO (08:34)
[2024-12-09] MEDS: FUROSEMIDE 20 MG TABLET PO (08:34)
[2024-12-09] MEDS: AMIODARONE HCL 200 MG TABLET PO (08:34)
[2024-12-09] MEDS: THIAMINE HCL 100 MG TABLET PO (08:34)
[2024-12-09] MEDS: ASPIRIN 81 MG CHEWABLE TABLET PO (08:35)
[2024-12-09 09:17] LABS: Iron 22 ug/dL (49-181)
[2024-12-09 09:26] LABS: Percent Iron Saturation 9 % (20-50)
[2024-12-09 10:12] LABS: Hematocrit 23.4 % (42.0-52.0); Hemoglobin 7.4 g/dL (14.0-18.0)
[2024-12-09] MEDS: IRON SUCROSE COMPLEX 200 MG, IRON SUCROSE COMPLEX 100 MG in SODIUM CHLORIDE 0.9% IV 250 ML 176.67 MG IVPB (11:55)
[2024-12-09 11:58] LABS: Vitamin B12 665.0 pg/mL (239-931)
--- NOTE | 2024-12-09 13:48 | P.DS_ITS ---
DS: Admitting Diagnosis Discharge Date 12/09/2024 Admitting Diagnosis GI bleed alcohol use disorder hx aortic valve replacement afib DS: Discharge Diagnosis Discharge Diagnosis (1) GI (gastrointestinal bleed): Qualifiers: GI bleed type/associated pathology: unspecified gastrointestinal hemorrhage type Qualified Code(s): K92.2 - Gastrointestinal hemorrhage, unspecified Code(s): K92.2 - Gastrointestinal hemorrhage, unspecified Status: Acute (2) Alcohol use disorder: Code(s): F10.90 - Alcohol use, unspecified, uncomplicated Status: Chronic (3) History of aortic valve replacement with bioprosthetic valve: Code(s): Z95.3 - Presence of xenogenic heart valve Status: Acute (4) PAF (paroxysmal atrial fibrillation): Code(s): I48.0 - Paroxysmal atrial fibrillation Status: Acute DS: Summary Hospital Course Reason for hospitalization: GI bleed alcohol use disorder hx aortic valve replacement afib Hospital Course: 73 year old male with past medical history of hypertension, aortic stenosis valve repair, hypertension, A.fib,chronic hyponatremia, and alcohol use disorder presents to the hospital with shortness of breath and concern for GI bleed. Patient denies taking any NSAIDs or blood thinner other than aspirin. Previous alcohol abuse, however last drink in July 2024 and denies relapse. CIWA negative throughout admission. Given symptomatic GI bleed and Hgb drop from 8.8 in July to 7.4 on admission, received 1 unit pRBC in the ED. Patients H/H remains stable. GI consulted for GI bleed. Coloscopy performed and showed polyps to the ascending and transverse, diverticulosis without perforation or abscess without bleeding, and internal hemorrhoids. Per GI the multiple diverticula and large hemorrhoids, could have been the source of his bleeding which is now resolved and self-limited. Per GI the patient can be discharged home, on a high- fiber diet, and if bleeding recurs, he should have his hemorrhoids evaluated by surgery. Discussed potential surgery referral from PCP if bleeding recurs, he states understanding. Patient's H&H remained stable. Check patient's iron panel and he was noted to have iron deficiency as well. Given an IV infusion of iron x1 and started on oral iron supplementation at time of discharge. Discussed with patient that his PCP is to follows iron levels and if he continues to be iron deficient he would likely benefit from a Hematology referral. He stated understanding. Patient had no complaints at time of discharge denying chest pain, shortness a breath, palpitations, nausea/vomiting, and abdominal pain. Patient states that the bloody stool have completely resolved. He denies any dizziness/lightheadedness or weakness with ambulation. Patient discharged home in a stable condition. He has a follow-up with his PCP in 1 week and GI as scheduled. Status at Discharge Functional status at discharge: independent ambulation Time Spent with Patient Time attestation: Total time spent providing and/or coordinating discharge services: Time spent: Greater than 30 minutes Exam Narrative: AF HR 73 RR 16 Spo2 98 BP 111/79 General: male in no acute respiratory distress who is nontoxic appearing, sitting up in bed. HEENT: Normocephalic. Atraumatic. Extraocular movement intact. Sclera clear and anicteric. No facial asymmetry. Chest: Lungs are clear to auscultation bilaterally. CV: Heart was regular rate and rhythm. Abd: Abdomen was soft. Nontender. Nondistended. Positive bowel sounds. Ext: No clubbing, cyanosis, or edema. DP pulses bilaterally. Neuro: Patient is alert and oriented x3. Speech is clear. DS: Data Data Completed and Pending Pending studies at discharge: Pending at discharge 12/08/24 16:32 Surgical [PTH] Routine Labs on day of discharge: Labs from last 24 hours 12/09/24 12/09/24 12/09/24 10:04 06:06 04:52 WBC 6.3 RBC 2.56 L Hgb 7.4 L 7.3 L Hct 23.4 L 23.4 L MCV 91.4 MCH 28.5 MCHC 31.2 L RDW 14.8 H Plt Count 176 MPV 10.5 H Sodium 133 L Potassium 4.2 Chloride 103 Carbon Dioxide 26 Anion Gap 4 BUN 7 L D Creatinine 0.93 Estim Creat Clear Calc 69 Estimated GFR > 60 Glucose 104 POC Capillary Glucose 104 Calcium 8.6 Iron TIBC % Saturation Total Bilirubin 0.6 AST 24 ALT 11 Alkaline Phosphatase 61 Total Protein 6.2 L Albumin 3.1 L Vitamin B12 665.0 Folate > 20.0 H 12/09/24 12/08/24 04:48 23:34 WBC RBC Hgb Hct MCV MCH MCHC RDW Plt Count MPV Sodium Potassium Chloride Carbon Dioxide Anion Gap BUN Creatinine Estim Creat Clear Calc Estimated GFR Glucose POC Capillary Glucose 102 Calcium Iron 22 L TIBC 251 L % Saturation 9 L Total Bilirubin AST ALT Alkaline Phosphatase Total Protein Albumin Vitamin B12 Folate Discharge Plan Discharge Attending physician on discharge: Raul Hummel Consulting providers: Samantha Melendez Discharging Clinician: Samantha Melendez Anticipated Discharge Date/Time: 12/09/24 13:43 Patient Disposition: Home Activity: as tolerated Diet: as tolerated and high fiber Discharge Instructions: Discharge disposition: Patient admitted to the hospital for a GI bleed GI evaluated Colonoscopy performed and showed multiple diverticula and large hemorrhoids which could be the bleeding source. Bleeding has resolved. Continue high fiber diet. Eat well balanced meals and do not over hydrate Keep active If bleeding recurs discuss with PCP about having hemorrhoids evaluated by surg tasha Keep an eye on your stool, should your stool be black or dark purple, you should come back to the hospital Follow up with GI, call for an appointment Diagnosed with iron deficiency anemia Received an iron infusion during admission Started on iron supplementation, attached is information on this medication Follow up with PCP for repeat iron studies to reassess If patient continues to be iron deficient consider a hematology referral for further assessment Monitor blood pressures Take caution while standing, rising, or moving Change positions slowly taking a break between each position change If you standing feel dizzy sit back down and take a break Encouraged to continue with yearly vaccinations Return to the emergency department if he developed sudden shortness of breath, chest pain, nausea, vomiting, upset stomach or intractable diarrhea Return to the emergency department if you develop fever greater than 100.5 Follow-up with the primary care physician within 1-2 weeks Thank you for [facility] for your healthcare needs Patient Instructions: Iron Supplements (By mouth), Gastrointestinal Bleeding (DC), Hemorrhoids (DC), Rectal Bleeding (DC), Diverticulosis (DC) Patient Language: Kiswahili Stand Alone Forms: General Discharge Information Follow-up/Referrals: Juanito Woodward MD [Primary Care Provider] - 1 Week Discharge Medications: New ferrous sulfate 325 mg (65 mg iron) tablet 325 mg PO BID Qty: 60 0RF Continued furosemide 40 mg tablet 20 mg PO DAILY Qty: 180 3RF amiodarone 200 mg tablet 200 mg PO DAILY Qty: 90 2RF folic acid 1 mg tablet 1 mg PO DAILY Qty: 90 2RF tamsulosin 0.4 mg capsule 0.4 mg PO QPM Qty: 90 2RF magnesium oxide 400 mg magnesium capsule 800 mg PO BID Qty: 360 2RF spironolactone 25 mg tablet See Rx Instructions .ROUTE .COMPLEX Qty: 45 2RF Dose Instruction: TAKE 1/2 TABLET BY MOUTH DAILY Rx Instructions: TAKE 1/2 TABLET BY MOUTH DAILY aspirin 81 mg tablet,chewable 81 mg PO DAILY Thera-M 9 mg iron-400 mcg tablet 1 tablet PO DAILY thiamine HCl (vitamin B1) [Vitamin B-1] 100 mg Tablet 100 mg PO QAM Qty: 30 0RF Date of admission: 12/07/24 09:09 Primary Care Provider: Juanito Woodward Admitting Provider: Raul Hummel Attending physician on admission: Raul Hummel Condition: Stable Hospitalist MIPS Heart Failure (Exclusion) Patient has history of Heart Transplant or Left Ventricular Assistive Device?: No IF YES, STOP HERE Heart Failure (Qualifier) Patient has current or prior documentation of LVEF less than or equal to 40%, or mod/servere depressed LVSF?: No IF NO, STOP HERE
== END 2024-12-09 14:35 | disposition home or self-care (01) | DRG 393 ==
LOC: ANHED 21:45 → ANH2MED 22:53
PROVIDERS: Internal Medicine Gastroenterology; Admitting Provider General Practice; Emergency Provider Registered Nurse Emergency; PCP Emergency Medicine; Visit Provider Student in an Organized Health Care Education/Training Program
PROC: 0DJD8ZZ Inspection of Lower Intestinal Tract, Via Natural or Artificial Opening Endoscopic (ICD-10-PCS; CPT 45378; principal; 2024-12-08 15:00)
DX: K64.8 Other hemorrhoids (principal); K57.31 Diverticulosis of large intestine without perforation or abscess with bleeding; E87.1 Hypo-osmolality and hyponatremia; D12.2 Benign neoplasm of ascending colon; D12.3 Benign neoplasm of transverse colon; D64.9 Anemia, unspecified; I10 Essential (primary) hypertension; I48.0 Paroxysmal atrial fibrillation; E55.9 Vitamin D deficiency, unspecified; Z87.891 Personal history of nicotine dependence; Z79.82 Long term (current) use of aspirin; Z95.3 Presence of xenogenic heart valve
CPT/HCPCS: 36415; 36430; 80053; 82607; 82746; 82948; 83540; 83550; 85014; 85018; 85025; 85027; 85610; 85730; 86850; 86900; 86901; 86923; 88305; 93005; 96360; 96361; 96374; 99285; A9270; G0378; J1756; J2003; J2704; J7050; J7120; P9016

== ENCOUNTER 2025-03-24 10:07 | Outpatient (CLI) | payer MEDICARE, OTHER, SELFPAY ==
--- NOTE | ~2025-03-24 | XR_ITS ---
EXAMINATION: XR shoulder LT min 2V, 03/24/2025 10:22 ADMINISTRATIVE ASSISTANT HISTORY: M25.519 - Pain in unspecified shoulder COMPARISON: No comparisons available. Findings: No acute fracture or malalignment. No significant degenerative changes. Soft tissues unremarkable. Impression: No acute fracture or malalignment. Reviewed, dictated and finalized at location P. NISTRATIVE ASSISTANT Impression: No acute fracture or malalignment.
--- OUTSIDE RECORDS SUMMARY | 2025-03-24 11:18 | XMS_ITS | Encounter Summary ---
Author Organization [facility] Address [address] [place] [id number] Care Team Providers Care English Adjunct Faculty Name Role Phone Juanito Woodward MD Primary Care Provide r Juanito Woodward MD Unavailable [phone] Nick Veliz MD Unavailable Miscellaneous, Not In File Unavailable Unava ilable Encounter Details Date Type Department Care Team (Late st Contact Info) Description 08/21/2016 Orders Only [facility] ProviderNeil MD [address] [place] [id number] Social History Tobacco Use Types Packs/Day Years Used Date Smoking Tobacco: Never Assessed Sex and Gender Information Value Date Recorded Sex Assigned at Not on file Legal Sex Male 1:55 AM [employer] Gender Identity Not on file Sexual [...] COVID: Suspected 06/21/2024 06/21/2024 06/21/2024 2:11 PM [employer] COVID: Suspected 07/25/2024 07/25/2024 07/25/2024 8:13 [...] for admission to [address] [facility] 08/05/2024 08/05/2024 08/13/2024 9:27 AM C DT documented as of this encounter Care Teams English Adjunct Faculty Relationship Specialty Start Date End Date Juanito Woodward MD [address] [place] [address] PCP - General 08/10/16 Juanito Woodward MD [address] [place] [address] 08/10/16 Nick Veliz MD [address] [place] [address] Consulting Physician Cardiothoracic Surgery 08/12/24 Miscellaneous, Not In File 08/12/24 documented as of this encounter
--- OUTSIDE RECORDS SUMMARY | 2025-03-24 11:18 | XMS_ITS | Clinical Summary ---
Author Organization [facility] Address [address] [place] [address] Care Team Providers Care Drywall Mechanic Name Role Phone Juanito Woodward MD Primary Care Provide r Juanito Woodward MD Unavailable [phone] Nick Veliz MD Unavailable Miscellaneous, Not In [...] a day 5 08/13/19 26 Active multivit atcdbzxy-nvjh-HZ -calcium (THERA-M) 9 mg iron-400 mcg tablet [...] mouth daily 5 08/14/19 26 Active white petrolatum-grazing examiner al oil (REFRESH PM) ointment Apply [...] HEALTH for surgical evaluation. 42: MVr (32mm rosita [...] HEALTH for surgical evaluation. 07/30: MVr (32mm rosita [...] 06/21/2024 Assessment & Plan (06/22/2024 7:30 AM CLOTH PACKER): -right shoulder dislocation and humeral head fracture s/p reduction by ortho in the ED -continue sling, RUE NWB -pain control with tylenol, ketorolac, and PRN oxycodone -ortho to set up outpatient follow up Acute respiratory failure 06/21/2024 Assessment & Plan (06/22/2024 7:30 AM CLOTH PACKER): -unclear etiology, suspect community acquired pneumonia, atelectasis, [...] 06/21/2024 Assessment & Plan (06/22/2024 7:30 AM CLOTH PACKER): -reportedly drinks 4-5 beers/day. Denies history of [...] TID Assessment & Plan (06/21/2024 4:02 PM CLOTH PACKER): -continue amlodipine and losartan Resolved Problems Problem Noted Date Diagnosed Date Resolved Date Hyponatremia 06/21/2024 07/27/2024 Assessment & Plan (06/21/2024 4:05 PM CLOTH PACKER): -chronic per patient, unclear etiology -sodium tabs prescribed as outpatient, continue for now. Surgical History Surgery Date Site/Laterality Comments CARDIAC CATHETERIZATION 07/28/2024 N/A Procedure: RIGHT HEART CATHETERIZATION [id number]; Surgeon: Peter Kulkarni MD PhD; Location: [facility] CARDIAC [facility]ID OPERATOR; Service: Cardiovascular; Laterality: N/A; CARDIAC CATHETERIZATION 07/28/2024 N/A Procedure: LEFT HEART CATHETERIZATION WITH CORONARY ANGIOGRAPHY AND WITH OR WITHOUT LEFT VENTRICULOGRAM [id number]; Surgeon: Peter Kulkarni MD PhD; Location: [facility] CARDIAC [facility]ID OPERATOR; Service: Cardiovascular; Laterality: N/A; CARDIAC ELECTROPHYSIOLOGY PROCEDURE [...] on file Legal Sex Male 1:55 AM CLOTH PACKER Gender Identity Not on file Sexual Orientation [...] Visit 65+ 08/10/2015 Covid-19 Vaccine (5 - 2024-2 6 season) 2024 03/15/2023, 02/16/2022, 03/18/2021, Additional history exists Influenza Vaccine (#1) 2024 , 02/16/2022, 03/18/2021, Additional history exists Fall Risk Assessment 08/12/2025 08/12/2024 Zoster Vaccine Completed 08/07/2020, 04/30, 01/26/2014 Abdominal Aortic Aneurysm (A AA) Screen Completed 06/21/2024 Hepatitis C Screening Completed 06/22/2024 Medical Devices Implanted Type Area Grocery Stocker Device Identifier Shelf Expiration Date Model / Serial / Lot Terumo Cardio Vascular Gelweave 10mm 30cm Suture Retention Unique Hydrolyzable Abdomen [id number] - [id number] - [id number] Implanted:Qty: 1 on 07/30/2024 by Nick Veliz MD at [facility] Other - see comments N/A: Heart Terumo Cardio Vascular [id number] 04/29/2027 [id number] Atricure Device Closure Atriclip Nitinol Polyester 45 D L35mm L6cm Flexible Shaft Plunger Content Management Consultant Left Atrial Appendage Exclusion System [id number] - [id number] Implanted:Qty: 1 on 07/30/2024 by Nick Veliz MD at [facility] Other - see comments N/A: Heart Atricure 04/30/2027 [id number] / [id number] Fern[employer] Lifesciences Rosita-Cristi ds 32mm 39.6mm 31.9mm 70.4mm Flexible Band Template [id number] - [id number] - [id number] Implanted:Qty: 1 on 07/30/2024 by Nick Veliz MD at [facility] Other - see comments N/A: Mitral Valve Fern[employer] Lif[employer]iences [id number] 10/16/2027 [id number] / [id number] / 0 [employer] Kit Ventricular Assist Device Pump Percutaneous Impella 5.5 Smartassist [id number] - [id number] - [id number] Implanted:Qty: 1 on 07/30/2024 by Nick Veliz MD at [facility] Other - see comments N/A: Heart Abi[employer] Inc [id number] 12/28/2025 [id number] / [id number] / [id number] Description:S/B Clinical Tri al device [id number] IMPELLA 5.5 [id number] per [facility] Trial Turbogenerator Operator Fern[employer] Magna Ease 25mm [id number] - [id number] - [id number] Implanted:Qty: 1 on 07/30/2024 by Nick Veliz MD at [facility] Prosthetic Valve N/A: Aortic Valve Fern[employer]iences [id number] 10/17/2027 [id number] / [id number] / 0 Procedures Procedure Name Priority Date/Time Associated Diagnosis Comments HEPATITIS C ANTIBODY Routine 06/22/2024 5:[address] CHEST ABDOMEN PELVIS W CONTRAST ED 06/21/2024 12:38 PM CLOTH PACKER from Last 3 Months or Most Recently Relevant to Health Maintenance Results * Hepatitis C antibody Blood (06/22/2024 5:59 AM CLOTH PACKER) Hep C Ab Nonreactive Nonreactive Comment:Antibodies to HCV no t detected. Does NOT exclude the possibility of recent exposure to HCV. Current interpretive data was last revised on 21 Blood 06/22/2024 5:59 AM CLOTH PACKER 06/22/2024 6:19 AM CLOTH PACKER us Clovis Villalpando MD LAB MICROBIOLOGY - GENERA L ORDERABLES Final Result [facility] Department [place] [address] * CT Chest Abdomen Pelvis W Contrast (06/21/2024 12:38 PM CLOTH PACKER) Anatomical Region Laterality Modality Body N/A Computed Tomogra phy 06/21/2024 1:30 PM CLOTH PACKER Impressions 06/21/2024 2:02 PM CLOTH PACKER 1. No findings of acute trauma in [...] Pillai MD, PHD Narrative 06/21/2024 2:02 PM CLOTH PACKER EXAMINATION: Computed tomography of the chest, abdomen [...] Most Recently Relevant to [place] [address] [place] [id number] [employer] MED[employer] FOR [facility] MEDICARE Advance Directives For more information, please contact: [phone] * Full Code (Latest Code Status on File) Date Activated Date Inactivated Comments 07/30/2024 5:08 PM 08/13/2024 12:58 AM * Full Code Date Activated Date Inactivated Comments 07/25/2024 3:21 AM 07/30/2024 5:08 PM * Full Code Date Activated Date Inactivated Comments 06/21/2024 3:36 PM 06/22/2024 5:14 PM Care Teams Drywall Mechanic Relationship Specialty Start Date End Date Juanito Woodward MD [address] [place] [address] PCP - General 08/10/16 Juanito Woodward MD [address] [place] [address] 08/10/16 Nick Veliz MD [address] [place] [address] Consulting Physician Cardiothoracic Surgery 08/12/24 Miscellaneous, Not In File 08/12/24
== END 2025-03-24 10:08 | disposition home or self-care (01) ==
PROVIDERS: PCP Emergency Medicine; Visit Provider Emergency Medicine
DX: M25.512 Pain in left shoulder (principal)
CPT/HCPCS: 73030

== ENCOUNTER 2025-04-16 13:28 | Outpatient (CLI) | payer MEDICARE, OTHER, SELFPAY ==
--- NOTE | ~2025-04-16 | MMUS_ITS ---
EXAMINATION: MM diagnostic perry BI w lan, US breast BI limited INDICATION: 74-year old MALE; presents for evaluation of bilateral palpable lumps ongoing for 3 months. COMPARISON: None TECHNIQUE: Digital breast tomosynthesis CC and MLO views of the BILATERAL breast were obtained with computer-aided detection to assist in interpretation of the study. Radiopaque skin markers identified in location of the palpable lumps. FINDINGS: The breasts are extremely dense, which lowers the sensitivity of mammography. There is moderate volume of fibroglandular tissue in BILATERAL breast compatible with gynecomastia. There are no suspicious masses, calcifications, architectural distortion or any other abnormality in BILATERAL breast. BILATERAL BREAST ULTRASOUND FINDINGS: Targeted evaluation of the area of palpable lumps in both breasts was completed. Normal appearing fibroglandular tissue is identified bilaterally. There are no suspicious cystic or solid mass seen in either breast. IMPRESSION: FINDINGS COMPATIBLE WITH GYNECOMASTIA CORRELATES TO THE AREA OF PALPABLE LUMPS IN BOTH BREASTS. RECOMMENDATION: FURTHER EVALUATION OF PATIENT'S PALPABLE LUMP SHOULD BE BASED ON CLINICAL IMPRESSION. FOLLOW-UP CLINICALLY WARRANTED. BI-RADS 2, BENIGN Reviewed, dictated and finalized at location A. NOLOGY ANALYST IMPRESSION: FINDINGS COMPATIBLE WITH GYNECOMASTIA CORRELATES TO THE AREA OF PALPABLE LUMPS IN BOTH BREASTS. RECOMMENDATION: FURTHER EVALUATION OF PATIENT'S PALPABLE LUMP SHOULD BE BASED ON CLINICAL IMPRE SSION. FOLLOW-UP CLINICALLY WARRANTED. BI-RADS 2, BENIGN
--- OUTSIDE RECORDS SUMMARY | 2025-04-16 14:30 | XMS_ITS | Encounter Summary ---
Author Organization [facility] Address [address] [facility] [address] [place] [address] Care Team Providers Care Photographer'S Assistant Name Role Phone Juanito Woodward MD Primary Care Provide r Juanito Woodward MD Unavailable [phone]- [phone] Nick Veliz MD Unavailable Miscellaneous, Not In File Unavailable Unava ilable Encounter Details Date Type Department Care Team (Late st Contact Info) Description 08/21/2016 Orders Only [facility] ProviderNeil MD [address] [place] [id number] Social History Tobacco Use Types Packs/Day Years Used Date Smoking Tobacco: Never Assessed Sex and Gender Information Value Date Recorded Sex Assigned at Not on file Legal Sex Male 1:55 AM VENEER SAWYER Gender Identity Not on file Sexual Orientation [...] COVID: Suspected 06/21/2024 06/21/2024 06/21/2024 2:11 PM VENEER SAWYER COVID: Suspected 07/25/2024 07/25/2024 07/25/2024 8:13 AM [...] for admission to [address] [facility] 08/05/2024 08/05/2024 08/13/2024 9:27 AM C DT documented as of this encounter Care Teams Photographer'S Assistant Relationship Specialty Start Date End Date Juanito Woodward MD [address] [place] [address] PCP - General 08/10/16 Juanito Woodward MD [address] [place] [address] 08/10/16 Nick Veliz MD [address] [place] [address] Consulting Physician Cardiothoracic Surgery 08/12/24 Miscellaneous, Not In File 08/12/24 documented as of this encounter
--- OUTSIDE RECORDS SUMMARY | 2025-04-16 14:30 | XMS_ITS | Clinical Summary ---
Author Organization [facility] Address [address] [place] [address] Care Team Providers Care Sales Exec Name Role Phone Juanito Woodward MD Primary Care Provide r Juanito Woodward MD Unavailable [phone]- [phone] Nick Veliz MD Unavailable Miscellaneous, Not In [...] a day 5 08/13/19 26 Active multivit wlmkrfyp-akcv-BP -calcium (THERA-M) 9 mg iron-400 mcg tablet [...] mouth daily 5 08/14/19 26 Active white petrolatum-sock examiner al oil (REFRESH PM) ointment Apply [...] 3.8 m/s. 07/25 he was transferred to [facility] for surgical evaluation. 42: MVr (32mm rosita [...] 3.8 m/s. 07/25 he was transferred to [facility] for surgical evaluation. 07/30: MVr (32mm rosita [...] 06/21/2024 Assessment & Plan (06/22/2024 7:30 AM EVP HEAD OF [employer] EXPERIENCE STRATEGY): -right shoulder dislocation and humeral head fracture s/p reduction by ortho in the ED -continue sling, RUE NWB -pain control with tylenol, ketorolac, and PRN oxycodone -ortho to set up outpatient follow up Acute respiratory failure 06/21/2024 Assessment & Plan (06/22/2024 7:30 AM EVP HEAD OF [employer] EXPERIENCE STRATEGY): -unclear etiology, suspect community acquired pneumonia, atelectasis, [...] 06/21/2024 Assessment & Plan (06/22/2024 7:30 AM EVP HEAD OF [employer] EXPERIENCE STRATEGY): -reportedly drinks 4-5 beers/day. Denies history of [...] TID Assessment & Plan (06/21/2024 4:02 PM EVP HEAD OF [employer] EXPERIENCE STRATEGY): -continue amlodipine and losartan Resolved Problems Problem Noted Date Diagnosed Date Resolved Date Hyponatremia 06/21/2024 07/27/2024 Assessment & Plan (06/21/2024 4:05 PM EVP HEAD OF [employer] EXPERIENCE STRATEGY): -chronic per patient, unclear etiology -sodium tabs prescribed as outpatient, continue for now. Surgical History Surgery Date Site/Laterality Comments CARDIAC CATHETERIZATION 07/28/2024 N/A Procedure: RIGHT HEART CATHETERIZATION [id number]; Surgeon: Peter Kulkarni MD PhD; Location: [facility] CARDIAC SUPERVISOR FILES; Service: Cardiovascular; Laterality: N/A; CARDIAC CATHETERIZATION 07/28/2024 N/A Procedure: LEFT HEART CATHETERIZATION WITH CORONARY ANGIOGRAPHY AND WITH OR WITHOUT LEFT VENTRICULOGRAM [id number]; Surgeon: Peter Kulkarni MD PhD; Location: [facility] CARDIAC SUPERVISOR FILES; Service: Cardiovascular; Laterality: N/A; CARDIAC ELECTROPHYSIOLOGY PROCEDURE 07/30/2024 Chest/N/A Procedure: ATRIAL FIBRILLATION ABLATION, ASCENDING AORTIC GRAFT; Surgeon: Nick Veliz MD; Location: [facility] OR POD 3; Service: Cardiothoracic; Laterality: N/A; [...] on file Legal Sex Male 1:55 AM EVP HEAD OF [employer] EXPERIENCE STRATEGY Gender Identity Not on file Sexual Orientation [...] Completed 06/22/2024 Medical Devices Implanted Type Area Durability Technician Device Identifier Shelf Expiration Date Model / Serial / Lot Terumo Cardio Vascular Gelweave 10mm 30cm Suture Retention Unique Hydrolyzable Abdomen [id number] - [id number] - [id number] Implanted:Qty: 1 on 07/30/2024 by Nick Veliz MD at [facility] Other - see comments N/A: Heart Terumo Cardio Vascular [id number] 04/29/2027 [id number] / [id number] Atricure Device Closure Atriclip Nitinol Polyester 45 D L35mm L6cm Flexible Shaft Plunger Housing Quality Standard Inspector Left Atrial Appendage Exclusion System [id number] - [id number] - [id number] Implanted:Qty: 1 on 07/30/2024 by Nick Veliz MD at [facility] Other - see comments N/A: Heart Atricure 04/30/2027 [id number] / [id number] / [id number] Fern[employer] Rosita-Cristi ds 32mm 39.6mm 31.9mm 70.4mm Flexible Band Template [id number] - [id number] - [id number] Implanted:Qty: 1 on 07/30/2024 by Nick Veliz MD at [facility] Other - see comments N/A: Mitral Valve [employer] [id number] 10/16/2027 [id number] / [id number] / 0 Abiomed Inc Kit Ventricular Assist Device Pump Percutaneous Impella 5.5 Smartassist [id number] - [id number] - [id number] Implanted:Qty: 1 on 07/30/2024 by Nick Veliz MD at [facility] Other - see comments N/A: Heart [employer] Inc [id number] 12/28/2025 [id number] / [id number] / [id number] Description:S/B Clinical Tri al device [id number] IMPELLA 5.5 [id number] per [facility] Trial Hospitality Director Fern[employer] Magna Ease 25mm [id number] - [id number] - [id number] Implanted:Qty: 1 on 07/30/2024 by Nick Veliz MD at [facility] Prosthetic Valve N/A: Aortic Valve [employer] [id number] 10/17/2027 [id number] / [id number] / 0 Procedures Procedure Name Priority Date/Time Associated Diagnosis Comments HEPATITIS C ANTIBODY Routine 06/22/2024 5:59 AM EVP HEAD OF [employer] EXPERIENCE STRATEGY CT CHEST ABDOMEN PELVIS W CONTRAST ED 06/21/2024 12:38 PM EVP HEAD OF [employer] EXPERIENCE STRATEGY from Last 3 Months or Most Recently Relevant to Health Maintenance Results * Hepatitis C antibody Blood (06/22/2024 5:59 AM EVP HEAD OF [employer] EXPERIENCE STRATEGY) Hep C Ab Nonreactive Nonreactive Comment:Antibodies to HCV no t detected. Does NOT exclude the possibility of recent exposure to HCV. Current interpretive data was last revised on 21 Blood 06/22/2024 5:59 AM EVP HEAD OF [employer] EXPERIENCE STRATEGY 06/22/2024 6:19 AM EVP HEAD OF [employer] EXPERIENCE STRATEGY us Clovis Villalpando MD LAB MICROBIOLOGY - GENERA L ORDERABLES Final Result [facility] Department [place] [address] * CT Chest Abdomen Pelvis W Contrast (06/21/2024 12:38 PM EVP HEAD OF [employer] EXPERIENCE STRATEGY) Anatomical Region Laterality Modality Body N/A Computed Tomogra phy 06/21/2024 1:30 PM EVP HEAD OF [employer] EXPERIENCE STRATEGY Impressions 06/21/2024 2:02 PM EVP HEAD OF [employer] EXPERIENCE STRATEGY 1. No findings of acute trauma in [...] Pillai MD, PHD Narrative 06/21/2024 2:02 PM EVP HEAD OF [employer] EXPERIENCE STRATEGY EXAMINATION: Computed tomography of the chest, abdomen [...] Relevant to [place] [id number] [employer] MEDICARE [employer] FOR [facility] MEDICARE Advance Directives For more information, please contact: [phone] * Full Code (Latest Code Status on File) Date Activated Date Inactivated Comments 07/30/2024 5:08 PM 08/13/2024 12:58 AM * Full Code Date Activated Date Inactivated Comments 07/25/2024 3:21 AM 07/30/2024 5:08 PM * Full Code Date Activated Date Inactivated Comments 06/21/2024 3:36 PM 06/22/2024 5:14 PM Care Teams Sales Exec Relationship Specialty Start Date End Date Juanito Woodward MD [address] [place] [address] PCP - General 08/10/16 Juaniot Woodward MD [address] [place] [address] 08/10/16 Nick Veliz MD [address] [place] [address] Consulting Physician Cardiothoracic Surgery 08/12/24 Miscellaneous, Not In File 08/12/24
== END 2025-04-16 13:29 | disposition home or self-care (01) ==
LOC: ANHFOHIMG 13:30
PROVIDERS: PCP Emergency Medicine; Visit Provider Emergency Medicine
DX: N62 Hypertrophy of breast (principal); N63.10 Unspecified lump in the right breast, unspecified quadrant; N63.20 Unspecified lump in the left breast, unspecified quadrant
CPT/HCPCS: 76642; 77062; 77066; G0279